=== PATIENT | male | born 1955 | race Caucasian/White ===

== ENCOUNTER 2017-07-24 16:37 | Inpatient (IN) | payer OTHER ==
[~2017-07-24] VITALS: Ht 175.3 cm; Wt 105.3 kg
[~2017-07-24 16:37] MED LIST: ACET-1311 PO; ALBUAER19 INH; ALEN70TA2 PO; AMOX500C3 PO; ASPI81TA28 PO; CHOL1000 PO; CYCL10TA7 PO; CYM30 PO; DULO60CA44 PO; FLV400 PO; GLC500 PO; IPRASOL4 INH; ISOS-11 PO; METH500T37 PO; METO25TA3 PO; PLV75 PO; RXC5 PO; THIA250T7 PO; TRAM-10 PO
[2017-07-24] MEDS ORDERED: SODIUM CHLORIDE 0.9% 500ML 500 ML IV STA (16:47)
--- NOTE | 2017-07-24 16:58 | EMERGENCY ROOM VISIT NOTE ---
History Report prepared by Mayuri: Evaristo Wilson Under the Supervision of: Dr. Alfredito Hernandez M.D. First contact with patient: 16:38 Stated Complaint: CARDIAC History of Present Illness The patient is a 61 year old male who presents to the Emergency Room with complaints of intermittent dizziness beginning 2-3 days ago. He currently rates his discomfort a 4/10 in severity. EMS states the patient has not been feeling well and has been dizzy. They report he woke this morning with diarrhea and dizziness. EMS notes when they arrived his chest pain was a 5, dropped to a 3, and is currently a 4. They report they were called because the patient became short of breath and pale. The patient states he vomited once this morning as well. He reports he is not dizzy anymore, but he is experiencing chest pain and shortness of breath. The patient notes he had a stent placed two weeks ago and was told his aorta was nicked in the process. He states he was told to monitor his blood pressure and report to the ED if it was over 130 systolic. The patient reports his blood pressure has been around 120 systolic for the past two weeks, expect today. He states it rogerio to 130 and eventually 140 systolic. The patient reports his symptoms began when his blood pressure rogerio. He notes his stent was placed because of a blockage found on a stress test. The patient notes he did start a new medication, but he cannot remember what it was. He states he has a history of smoking, but quit, and sleep apnea. The patient denies fevers, chills, cough, congestion, nausea, abdominal pain, and a history of COPD or asthma. Source of History: patient, EMS Onset: 2-3 days ago Position: other (global) Symptom Intensity: 4/10 Quality: other (dizzy) Timing: intermittent Associated Symptoms: + chest pain, + SOB, + vomiting, + diarrhea, No fevers , No chills, No cough, No nausea, No abdominal pain Note: Associated symptoms: pale skin, elevated blood pressure Denies: congestion Review of Systems See HPI for pertinent positives and negatives. A total of ten systems were reviewed and were otherwise negative. Past Medical & Surgical Medical Problems: (1) ASCVD (arteriosclerotic cardiovascular disease) (2) Chronic pain (3) Classic migraine (4) Colloid cyst of third ventricle (5) COPD (chronic obstructive pulmonary disease) (6) Depression (7) Diabetes mellitus type 2 in obese (8) Dyslipidemia (9) GERD (gastroesophageal reflux disease) (10) H/O carotid stenosis (11) H/O: CVA (cerebrovascular accident) (12) Hypertension (13) Impotence of organic origin (14) Obesity (BMI 30-39.9) (15) Osteoarthritis (16) RCA occlusion (17) Statin intolerance (18) Stroke Surgical Problems: (1) H/O bilateral hip replacements (2) H/O repair of rotator cuff (3) Hx of tonsillectomy (4) Previous back surgery Family History Diabetes mellitus FH: hearing loss Hypertension Social History Smoking Status: Former Smoker Alcohol Use: occasionally Drug Use: none Marital Status: Occupation Status: retired Current/Historical Medications Scheduled Acetaminophen (Tylenol), 650 MG PO PRN Alendronate Sodium (Fosamax), 70 MG PO every thursday Amlodipine (Norvasc), 5 MG PO QAM Amoxicillin (Amoxil), 500 MG PO UD Aspirin (Aspirin Chewable), 81 MG PO QAM Cholecalciferol (Vitamin D3), 1,000 INTER.UNIT PO QAM Clopidogrel Bisulfate (Clopidogrel), 75 MG PO QAM Duloxetine Hcl (Cymbalta), 60 MG PO QAM Isosorbide Dinitrate (Isordil), 60 MG PO QAM Lisinopril (Zestril), 20 MG PO HS Metformin HCl (Metformin HCl), 1,000 MG PO BID Metoprolol Tartrate (Lopressor) (Lopressor), 150 MG PO BID Nitroglycerin (Nitrostat), 0.4 MG UT PRN Repaglinide (Prandin), 1 MG PO AC Tamsulosin Hcl (Flomax), 0.4 MG PO QAM Thiamine Hcl (Vitamin B-1), 100 MG PO QAM [Folic Acid], 800 MCG PO QAM Scheduled PRN Albuterol Hfa (Ventolin Hfa), 2 PUFFS INH QID PRN for SOB/Wheezing Cyclobenzaprine HCl (Cyclobenzaprine HCl), 10 MG PO DAILY PRN for Muscle Spasms Ipratropium-Albuterol (Duoneb), 1 TREATMENT INH Q4H PRN for Shortness of Breath Oxycodone HCl (Oxycodone HCl), 5 MG PO Q12 PRN for Pain Tramadol (Ultram), 50-100 MG PO Q6H PRN for Pain Allergies Coded Allergies: Ciprofloxacin (Verified Allergy, Severe, hives, 07/24/17) Simvastatin (Verified Adverse Reaction, Mild, MUSCLE PAIN/WEAKNESS, ) Physical Exam Vital Signs Date Time Temp Pulse Resp B/P (MAP) Pulse Ox O2 Delivery O2 Flow Rate FiO2 07/24/17 20:03 49 18 145/77 95 Room Air 07/24/17 19:09 46 18 95/50 99 Room Air 07/24/17 18:36 48 18 112/63 98 Room Air 07/24/17 18:00 47 20 102/65 98 Room Air 07/24/17 17:45 48 18 105/61 100 Room Air 07/24/17 17:10 49 18 117/62 96 Room Air 07/24/17 16:48 47 07/24/17 16:47 97 Room Air 07/24/17 16:43 36.6 53 18 103/61 98 Room Air 07/24/17 16:43 97 Room Air Physical Exam GENERAL: Awake, alert to self but mild confusion, fatigued-appearing, in no distress HENT: Normocephalic, atraumatic. Dry mucous membranes otherwise unremarkable. EYES: Normal conjunctiva. Sclera non-icteric. NECK: Supple. No nuchal rigidity. FROM. No JVD. RESPIRATORY: Clear to auscultation. CARDIAC: Sinus mei. Extremities warm and well perfused. Pulses equal. ABDOMEN: Soft, non-distended. No tenderness to palpation. No rebound or guarding. No masses. RECTAL: Deferred. MUSCULOSKELETAL: Chest examination reveals no tenderness. The back is symmetrical on inspection without obvious abnormality. There is no CVA tenderness to palpation. No joint edema. LOWER EXTREMITIES: Calves are equal size bilaterally and non-tender. No edema. No discoloration. NEURO: Normal sensorium. No sensory or motor deficits noted. Mild aphasia with difficulty with word finding that has been patient's baseline for past 2 weeks. SKIN: No rash or jaundice noted. Cool and moist. Medical Decision & Procedures ER Provider Diagnostic Interpretation: Radiology results as stated below per my review and radiologist interpretation: SINGLE VIEW CHEST CLINICAL HISTORY: Atypical chest pain. FINDINGS: An AP, portable, upright chest radiograph is compared to study dated 08/19/2016 and correlated with chest CT dated 06/14/2015. The examination is degraded by portable technique and patient rotation. The heart is enlarged. The pulmonary vasculature is noncongested. The lungs and pleural spaces are clear. No pneumothorax is seen. The skeletal structures are osteopenic. The bony thorax is grossly intact. IMPRESSION: Mild cardiac enlargement with no acute cardiopulmonary abnormality. Electronically signed by: Hernandez Sanches M.D. 07/24/2017 5:43 PM Dictated Date/Time: 07/24/2017 5:38 PM CHEST, ABDOMEN, AND PELVIS CTA for AORTIC DISSECTION CT DOSE: 2494.13 mGy.cm HISTORY: Atypical chest pain and generalized abdominal pain TECHNIQUE: Multiaxial CT images of the chest were performed both before and after the intravenous administration of contrast to evaluate the aorta. Maximal intensity projection images were also obtained. A dose lowering technique was utilized adhering to the principles of ALARA. COMPARISON STUDY: Chest abdomen pelvis CTA 10/09/2015. FINDINGS: Noncontrast imaging through the chest shows no evidence for an intramural hematoma within the thoracic aorta. Mild atherosclerotic plaque within the aorta and coronary arteries. The aorta is normal in course and caliber with no evidence for dissection. Mild narrowing origins of the celiac and superior mesenteric arteries. The heart is normal in size. The pulmonary arteries appear patent. No pneumothorax. No pleural effusions. No focal lung consolidations to suggest pneumonia. Stable 3 mm subpleural nodule within the right middle lobe on image 157. This is likely benign. The lungs are otherwise clear. Old, healed right-sided rib fractures. No mediastinal or hilar lymphadenopathy. Bilateral total hip arthroplasties. L2 vertebroplasty. Hepatic steatosis. The liver, left adrenal gland, pancreas, and kidneys are unremarkable. No hydronephrosis. No retroperitoneal lymphadenopathy. Normal gallbladder. Mild bladder wall thickening. This contains a punctate focus of gas. Multiple colonic diverticula. No evidence for bowel obstruction. Normal appendix. Tiny fat-containing umbilical hernia. Minimal pericolonic fat stranding surrounding the mid to distal transverse colon. This is consistent with a nonspecific colitis. Moderate stenosis at the origin of the inferior mesenteric artery. However, the remaining portions of the inferior mesenteric artery are widely patent. IMPRESSION: 1. No evidence for an aortic dissection. 2. Minimal pericolonic fat stranding involving the mid to distal transverse colon. This is consistent with a nonspecific colitis and could be due to an infectious, inflammatory, or ischemic process. 3. Mild bladder wall thickening which could be chronic or due to a cystitis. Recommend correlation with urinalysis. 4. Additional findings are described above. Electronically signed by: Jonathan Correa M.D. 07/24/2017 6:05 PM Dictated Date/Time: 07/24/2017 5:[address] CT DOSE: 537.48 mGy.cm HISTORY: confusion h/o CVA TECHNIQUE: Multiaxial CT images of the head were performed without the use of intravenous contrast. Automated exposure control was utilized for this study. A dose lowering technique was utilized adhering to the principles of ALARA. Comparison: Head CT 08/19/2016. Findings: The paranasal sinuses and mastoid air cells are clear. Old left frontal lobe infarct, unchanged. No change in the 7 mm colloid cyst within the roof of the third ventricle. The ventricles are stable in size. There is a new 1.9 cm hypodense area within the anterior aspect of the left thalamus. This is consistent with a subacute infarct. There is no mass, hematoma, midline shift. Impression: 1. A new 1.9 cm subacute infarct within the left thalamus. 2. No change in the 7 mm colloid cyst. The ventricles are stable in size. 3. Old left frontal lobe infarct. Electronically signed by: Jonathan Correa M.D. 07/24/2017 5:43 PM Dictated Date/Time: 07/24/2017 5:33 PM Bedside ultrasound: revealed grossly normal LV and RV in function .No pericardial effusion. 3.1cm aortic root. Laboratory Results 07/24/17 17:00 Red Blood Count 3.95, Mean Corpuscular Volume 93.2, Mean Corpuscular Hemoglobin 29.9, Mean Corpuscular Hemoglobin Concent 32.1, Mean Platelet Volume 9.3, Neutrophils (%) (Auto) 78.3, Lymphocytes (%) (Auto) 13.8, Monocytes (%) (Auto) 5.5, Eosinophils (%) (Auto) 1.3, Basophils (%) (Auto) 0.6, Neutrophils # (Auto) 13.88, Lymphocytes # (Auto) 2.45, Monocytes # (Auto) 0.97, Eosinophils # (Auto) 0.23, Basophils # (Auto) 0.10 07/24/17 17:00 Test 07/24/17 17:00 07/24/17 17:16 07/24/17 17:19 07/24/17 17:22 White Blood Count 17.72 K/uL (4.8-10.8) Red Blood Count 3.95 M/uL (4.7-6.1) Hemoglobin 11.8 g/dL (14.0-18.0) Hematocrit 36.8 % (42-52) Mean Corpuscular Volume 93.2 fL (80-100) Mean Corpuscular Hemoglobin 29.9 pg (25-34) Mean Corpuscular Hemoglobin Concent 32.1 g/dl (32-36) Platelet Count 349 K/uL (130-400) Mean Platelet Volume 9.3 fL (7.4-10.4) Neutrophils (%) (Auto) 78.3 % Lymphocytes (%) (Auto) 13.8 % Monocytes (%) (Auto) 5.5 % Eosinophils (%) (Auto) 1.3 % Basophils (%) (Auto) 0.6 % Neutrophils # (Auto) 13.88 K/uL (1.4-6.5) Lymphocytes # (Auto) 2.45 K/uL (1.2-3.4) Monocytes # (Auto) 0.97 K/uL (0.11-0.59) Eosinophils # (Auto) 0.23 K/uL (0-0.5) Basophils # (Auto) 0.10 K/uL (0-0.2) RDW Standard Deviation 45.3 fL (36.4-46.3) RDW Coefficient of Variation 13.2 % (11.5-14.5) Immature Granulocyte % (Auto) 0.5 % Immature Granulocyte # (Auto) 0.09 K/uL (0.00-0.02) Est Creatinine Clear Calc Drug Dose 77.7 ml/min Estimated GFR () 72.5 Estimated GFR (Non- 62.5 BUN/Creatinine Ratio 15.5 (10-20) Calcium Level 9.7 mg/dl (8.5-10.1) Magnesium Level 2.2 mg/dl (1.8-2.4) Total Bilirubin 0.3 mg/dl (0.2-1) Direct Bilirubin mg/dl (0-0.2) Aspartate Amino Transf (AST/SGOT) 22 U/L (15-37) Alanine Aminotransferase (ALT/SGPT) 30 U/L (12-78) Alkaline Phosphatase 78 U/L (45-117) Pro-B-Type Natriuretic Peptide 219 pg/ml (0-900) Total Protein 8.6 gm/dl (6.4-8.2) Albumin 3.6 gm/dl (3.4-5.0) Lipase 355 U/L (73-393) Chemistry Specimen Hemolysis Prothrombin Time 10.4 SECONDS (9.0-12.0) Prothromb Time International Ratio 1.0 (0.9-1.1) Activated Partial Thromboplast Time 28.0 SECONDS (21.0-31.0) Partial Thromboplastin Ratio 1.1 Bedside Lactic Acid Venous 1.38 mmol/L (0.90-1.70) Bedside Hemoglobin 11.2 g/dl (14.0-18.0) Bedside Hematocrit 33 % (42-52) Bedside Sodium 134 mEq/L (135-144) Bedside Potassium 5.2 mEq/L (3.3-5.0) Bedside Chloride 101 mEq/L (101-112) Bedside Total CO2 27 mEq/l (24-31) Anion Gap 13.0 mmol/L (16-25) Bedside Blood Urea Nitrogen 19 mg/dl (7-18) Bedside Creatinine 1.1 mg/dl (0.6-1.3) Bedside Glucose (other) 196 mg/dl (70-99) Bedside Ionized Calcium (Mony) 1.24 mmol/l (1.12-1.32) Laboratory results reviewed by me Medications Administered Medications (Trade) Dose Ordered Sig/Andi Route Start Time Stop Time Status Last Admin Dose Admin Sodium Chloride 500 ml @ 125 mls/hr Q4H STAT IV 07/24/17 16:47 07/24/17 20:46 DC 07/24/17 17:03 125 MLS/HR Dextrose (Dextrose 50% 50ML Syringe) 50 ml NOW ONCE IV 07/24/17 17:00 07/24/17 17:01 DC 07/24/17 17:03 50 ML Sodium Chloride 1,000 ml @ 999 mls/hr Q1H1M STAT IV 07/24/17 18:18 07/24/17 19:18 DC 07/24/17 18:35 999 MLS/HR Ciprofloxacin/ Dextrose (Cipro / D5W) 400 mg NOW STAT IV 07/24/17 18:33 07/24/17 18:41 DC 07/24/17 19:18 400 MG Metronidazole (Flagyl / Nss) 500 mg NOW STAT IV 07/24/17 18:33 07/24/17 18:41 DC 07/24/17 19:26 500 MG Methylprednisolone Sodium Succinate (Solu-Medrol IV) 125 mg NOW STAT IV 07/24/17 19:46 07/24/17 19:47 DC 07/24/17 19:58 125 MG Ranitidine HCl (zANTac IV) 50 mg NOW STAT IV 07/24/17 19:46 07/24/17 19:47 DC 07/24/17 19:58 50 MG Diphenhydramine HCl (Benadryl Inj) 50 mg NOW STAT IV 07/24/17 19:46 07/24/17 19:47 DC 07/24/17 19:58 50 MG ECG Indication: chest pain Rate (beats per minute): 48 Rhythm: sinus bradycardia Findings: no acute ischemic change, other (Normal axis) ED Course 1642: The patient was evaluated in room A01. A complete history and physical exam was performed. 1834: I discussed the patient's case with SUNNY Colón. The patient will be evaluated for further management and care. 1844: Upon reexamination, the patient was resting comfortably. I discussed the test results and treatment plan with him. The patient will be evaluated for further management. Medical Decision I reviewed the patient's past medical history, medications, and the nursing notes as described above. Differential diagnoses include: dissection, ACS, PE, dehydration, electrolyte abnormality, pneumonia, bronchitis, sepsis. Patient is a 61-year-old gentleman with a past medical history of CAD status post stent placement 2 weeks ago with there was question of aortic involvement presents to emergency department with generalized fatigue, chest pain, shortness of breath, lightheadedness evolving since this morning. History of present illness. It was reported blood pressures elevated in the 140s at home. On arrival the patient is fatigued, uncomfortable but in no acute distress. He does have mild confusion. EKG with sinus bradycardia to 50s with no signs of acute ischemia. Blood pressure systolic in the 100s. Bedside echo shows EF with greater than 50% variability suggesting mild dehydration. Aortic root within normal limits at 3.1cm. CTA of the chest and abdomen negative for dissection however does demonstrate a colitis. On further questioning the patient does report onset of diarrhea today. Otherwise the patient was found to have a subacute thalamic stroke and when further discussing with the patient and family he has had a worsening of his baseline aphasia since his heart cath. Lactate within normal limits over WBC elevated to 17, is will treat with Cipro and Flagyl at this time. Case was discussed with Esteban Colón PAc who will admit the patient for further management. Of note, patient appears to have had allergic reaction to Cipro as he developed hives to his right AC where Cipro was running. Left AC where Flagyl was running was unaffected. Thus, Cipro must likely culprit. Cipro discontinued and patient treated with steroids, zantac, benadryl. Will defer additional colitis coverage to admitting team. Medication Reconcilliation Current Medication List: was personally reviewed by me Blood Pressure Screening Patient's blood pressure: Normal blood pressure Blood pressure disposition: Did not require urgent referral Consults Time Called: 1830 Consulting Physician: SUNNY Colón Returned Call: 1833 I discussed the patient's case with SUNNY Colón. The patient will be evaluated for further management and care. Impression Primary Impression: Colitis Additional Impression: Thalamic infarction Scribe Attestation The scribe's documentation has been prepared under my direction and personally reviewed by me in its entirety. I confirm that the note above accurately reflects all work, treatment, procedures, and medical decision making performed by me. Departure Information Dispostion Being Evaluated By Hospitalist Terry Hunt M.D. (PCP) Problem Qualifiers
[2017-07-24] MEDS ORDERED: DEXTROSE 50% 50 ML SYR IV ONE (17:00)
[2017-07-24 17:33] LABS: BASO % 0.6 %; COMPLETE YES; EOS % 1.3 %; HEMATOCRIT 36.8 % (42-52); IG% 0.5 %; LYMPH % 13.8 %; LYMPH ABS # 2.45 K/uL (1.2-3.4); MEAN CELL VOLUME 93.2 fL (80-100); MEAN CORPUSCULAR HEMOGLOBIN 29.9 pg (25-34); MEAN CORPUSCULAR HGB CONC 32.1 g/dl (32-36); MEAN PLATELET VOLUME 9.3 fL (7.4-10.4); MONO % 5.5 %; NEUT % 78.3 %; PLATELET COUNT 349 K/uL (130-400); RED BLOOD COUNT 3.95 M/uL (4.7-6.1); WHITE BLOOD COUNT 17.72 K/uL (4.8-10.8)
[2017-07-24 17:36] LABS: ISTAT CREATININE 1.1 mg/dl (0.6-1.3); ISTAT HEMOGLOBIN 11.2 g/dl (14.0-18.0); ISTAT IONIZED CALCIUM 1.24 mmol/l (1.12-1.32)
[2017-07-24 17:40] LABS: PARTIAL THROMBOPLASTIN RATIO 1.1; PROTHROMBIN TIME (PATIENT) 10.4 SECONDS (9.0-12.0)
--- NOTE | 2017-07-24 17:44 | DIAGNOSTIC IMAGING REPORT ---
SINGLE VIEW CHEST CLINICAL HISTORY: Atypical chest pain. FINDINGS: An AP, portable, upright chest radiograph is compared to study dated 08/19/2016 and correlated with chest CT dated 06/14/2015. The examination is degraded by portable technique and patient rotation. The heart is enlarged. The pulmonary vasculature is noncongested. The lungs and pleural spaces are clear. No pneumothorax is seen. The skeletal structures are osteopenic. The bony thorax is grossly intact. IMPRESSION: Mild cardiac enlargement with no acute cardiopulmonary abnormality. Electronically signed by: Hernandez Sanches M.D. 07/24/2017 5:43 PM Dictated Date/Time: 07/24/2017 5:38 PM
--- NOTE | 2017-07-24 17:44 | DIAGNOSTIC IMAGING REPORT ---
HEAD CT NONCONTRAST CT DOSE: 537.48 mGy.cm HISTORY: confusion h/o CVA TECHNIQUE: Multiaxial CT images of the head were performed without the use of intravenous contrast. Automated exposure control was utilized for this study. A dose lowering technique was utilized adhering to the principles of ALARA. Comparison: Head CT 08/19/2016. Findings: The paranasal sinuses and mastoid air cells are clear. Old left frontal lobe infarct, unchanged. No change in the 7 mm colloid cyst within the roof of the third ventricle. The ventricles are stable in size. There is a new 1.9 cm hypodense area within the anterior aspect of the left thalamus. This is consistent with a subacute infarct. There is no mass, hematoma, midline shift. Impression: 1. A new 1.9 cm subacute infarct within the left thalamus. 2. No change in the 7 mm colloid cyst. The ventricles are stable in size. 3. Old left frontal lobe infarct. Electronically signed by: Jonathan Correa M.D. 07/24/2017 5:43 PM Dictated Date/Time: 07/24/2017 5:33 PM
--- NOTE | 2017-07-24 18:07 | DIAGNOSTIC IMAGING REPORT ---
CHEST, ABDOMEN, AND PELVIS CTA for AORTIC DISSECTION CT DOSE: 2494.13 mGy.cm HISTORY: Atypical chest pain and generalized abdominal pain TECHNIQUE: Multiaxial CT images of the chest were performed both before and after the intravenous administration of contrast to evaluate the aorta. Maximal intensity projection images were also obtained. A dose lowering technique was utilized adhering to the principles of ALARA. COMPARISON STUDY: Chest abdomen pelvis CTA 10/09/2015. FINDINGS: Noncontrast imaging through the chest shows no evidence for an intramural hematoma within the thoracic aorta. Mild atherosclerotic plaque within the aorta and coronary arteries. The aorta is normal in course and caliber with no evidence for dissection. Mild narrowing origins of the celiac and superior mesenteric arteries. The heart is normal in size. The pulmonary arteries appear patent. No pneumothorax. No pleural effusions. No focal lung consolidations to suggest pneumonia. Stable 3 mm subpleural nodule within the right middle lobe on image 157. This is likely benign. The lungs are otherwise clear. Old, healed right-sided rib fractures. No mediastinal or hilar lymphadenopathy. Bilateral total hip arthroplasties. L2 vertebroplasty. Hepatic steatosis. The liver, left adrenal gland, pancreas, and kidneys are unremarkable. No hydronephrosis. No retroperitoneal lymphadenopathy. Normal gallbladder. Mild bladder wall thickening. This contains a punctate focus of gas. Multiple colonic diverticula. No evidence for bowel obstruction. Normal appendix. Tiny fat-containing umbilical hernia. Minimal pericolonic fat stranding surrounding the mid to distal transverse colon. This is consistent with a nonspecific colitis. Moderate stenosis at the origin of the inferior mesenteric artery. However, the remaining portions of the inferior mesenteric artery are widely patent. IMPRESSION: 1. No evidence for an aortic dissection. 2. Minimal pericolonic fat stranding involving the mid to distal transverse colon. This is consistent with a nonspecific colitis and could be due to an infectious, inflammatory, or ischemic process. 3. Mild bladder wall thickening which could be chronic or due to a cystitis. Recommend correlation with urinalysis. 4. Additional findings are described above. Electronically signed by: Jonathan Correa M.D. 07/24/2017 6:05 PM Dictated Date/Time: 07/24/2017 5:47 PM
[2017-07-24] MEDS ORDERED: THIA100T11 PO (18:09)
[2017-07-24] MEDS ORDERED: FOLIC ACID PO (18:09)
[2017-07-24] MEDS ORDERED: NTRGSL/4 UT (18:09)
[2017-07-24] MEDS ORDERED: REPA1TAB40 PO (18:09)
[2017-07-24] MEDS ORDERED: METO100T14 PO (18:09)
[2017-07-24] MEDS ORDERED: ASPCH81X PO (18:09)
[2017-07-24] MEDS ORDERED: LISI-725 PO (18:09)
[2017-07-24] MEDS ORDERED: VNTHFA/IN INH (18:09)
[2017-07-24] MEDS ORDERED: TAMS0.4C38 PO (18:09)
[2017-07-24] MEDS ORDERED: ISR/30 PO (18:09)
[2017-07-24] MEDS ORDERED: AMLO-110 PO (18:10)
[2017-07-24] MEDS ORDERED: SODIUM CHLORIDE 0.9% 1000ML 1,000 ML IV STA (18:18)
[2017-07-24 18:23] LABS: ALKALINE PHOSPHATASE 78 U/L (45-117); ALT/SGPT 30 U/L (12-78); BLOOD UREA NITROGEN 19 mg/dl (7-18); BUN/CREATININE RATIO 15.5 (10-20); CALCIUM 9.7 mg/dl (8.5-10.1); CARBON DIOXIDE 21 mmol/L (21-32); CHLORIDE 101 mmol/L (98-107); CREATININE 1.23 mg/dl (0.60-1.40); GLUCOSE 59 mg/dl (70-99)
[2017-07-24 18:28] LABS: POTASSIUM 5.1 mmol/L (3.5-5.1); SODIUM 137 mmol/L (136-145)
[2017-07-24] MEDS ORDERED: METRONIDAZOLE 500MG / 100ML NSS IV STA (18:33)
[2017-07-24] MEDS ORDERED: CIPROFLOXACIN 400MG / 200ML D5W IV STA (18:33)
[2017-07-24 18:50] LABS: AST/SGOT 22 U/L (15-37); MAGNESIUM 2.2 mg/dl (1.8-2.4)
[2017-07-24] MEDS ORDERED: RANITIDINE HCL 50 MG/100 ML D5W IV STA (19:46)
[2017-07-24] MEDS ORDERED: DiphenhydrAMINE HCL 50 MG/ML VIAL IV STA (19:46)
[2017-07-24] MEDS ORDERED: METHYLPREDNISOLONE 125 MG VIAL IV STA (19:46)
[2017-07-24] MEDS ORDERED: ONDANSETRON INJ 2 MG/ML 2 ML VIAL IV PRN (20:00)
[2017-07-24] MEDS ORDERED: POLYETHYLENE (MIRALAX) 17 GM PACK PO PRN (20:00)
[2017-07-24] MEDS ORDERED: MoRPHine SULFATE 2 MG/ML CARP IV PRN (20:00)
[2017-07-24] MEDS ORDERED: NITROGLYCERIN 0.4 MG SL PER TAB CHARGE SL PRN (20:00)
[2017-07-24] MEDS ORDERED: ACETAMINOPHEN 325 MG TAB PO PRN (20:00)
[2017-07-24] MEDS ORDERED: PHARMACIST DISCHARGE MED REC CONSULT PRN (20:15)
[2017-07-24] MEDS ORDERED: GLUCOSE 40% GEL 15 GM TUBE PO PRN (20:15)
[2017-07-24] MEDS ORDERED: GLUCAGON FOR INJ 1 MG VIAL SQ PRN (20:15)
[2017-07-24] MEDS ORDERED: DEXTROSE 50% 50 ML SYR IV PRN (20:15)
[2017-07-24] MEDS ORDERED: GLUCOSE 10 TABS/TUBE PO PRN (20:15)
[2017-07-24] MEDS ORDERED: PHARMACY GLYCEMIC MGMT CONSULT PRN (20:58)
[2017-07-24] MEDS ORDERED: PIPERACILL/TAZOBAC IV 4.5 GM in DEXTROSE 5% 100ML 100 ML IV SCH (21:00)
[2017-07-24] MEDS ORDERED: CYCLOBENZAPRINE HCL 10 MG TAB PO PRN (21:00)
[2017-07-24] MEDS ORDERED: OXYCODONE HCL IR 5 MG TAB (IMMEDIATE RELEASE) PO PRN (21:00)
[2017-07-24] MEDS ORDERED: INSULIN GLARGINE SOLOSTAR 100 UNITS/ML 3 ML PEN SC SCH (21:00)
[2017-07-24] MEDS ORDERED: INSULIN ASPART 100 UNITS/ML 3 ML PEN SC SCH (21:00)
[2017-07-24] MEDS ORDERED: ALBUTEROL HFA 8 GM INHALER INH PRN (21:00)
[2017-07-24] MEDS ORDERED: TRAMADOL HCL 50 MG TAB PO PRN (21:00)
[2017-07-24 21:02] LABS: MANUAL MICROSCOPIC REQUIRED? NO; REVIEW REQ? NO; URINE APPEARANCE CLEAR (CLEAR); URINE BILIRUBIN NEG (NEG); URINE COLOR YELLOW; URINE NITRITE NEG (NEG); URINE PH 6.5 (4.5-7.5); URINE SPECIFIC GRAVITY 1.023 (1.000-1.030); UROBILINOGEN NEG (NEG); ZZUR CULT IF INDIC CLEAN CATCH YES
[2017-07-24] MEDS ORDERED: NovoLIN-N (NPH) PER UNIT CHARGE SQ ONE (21:15)
[2017-07-24 21:30] VITALS: BP 144/75; PULSE 50; TEMP 36.7; O2SAT 98; Ht 175.3 cm; Wt 105.3 kg
[2017-07-24] MEDS: INSULIN ASPART 100 UNITS/ML 3 ML PEN SC SCH (21:46)
[2017-07-24] MEDS: METOPROLOL TARTRATE 100 MG TAB PO SCH (21:55)
--- NOTE | 2017-07-24 21:56 | History and Physical ---
History & Physical Date & Time of Service: Jul 24, 2017 at 20:51 Chief Complaint: Cardiac Primary Care Physician: Terry Resendez M.D. History of Present Illness Source: patient, clinic records, hospital records The patient underwent a cardiac cath on 05/25/17 revealed 100% blockage in RCA with collateral from the LAD. 50% blockage was also noted in LAD. No intervention was performed at that time. He then underwent a cardiac MRI later that same day to assess viability which revealed normal biventricular size and systolic function but showed focal myocardial infarction in the inferolateral segments that involved part of the posteromedial papillary muscle. He was then scheduled for repeat cardiac catheterization on 07/10/[address] Alford for planned PCI of the RCA. During his cardiac catheterization on 07/10, the attempt at PCI was unsuccessful complicated by a perforation of the proximal RCA and concern for dissection of the aorta. He underwent a CTA of the chest which showed dissection of the right coronary cusp extending into the proximal right coronary artery, however, no dissection extended above the sinotubular junction. He was admitted to the cardiology service for further management and supervision and was placed on a nitro drip with the addition of PO hydralazine, metoprolol and amlodipine for 48 hours. He was discharged on PO BP meds with instructions to not let his BP rise above 140 systolic. He reports being discharged and not being able to walk out of the hospital. He reports feeling very ill for the past two weeks having significant fatigue. He reports some diarrhea began this morning all of a sudden and after his first episode of stool he began having substernal chest pain that he describes as a numbness. This was associated with diaphoresis and some shortness of breath. He reports having 3 more episodes of diarrhea after that with no blood in the stool. He denies nausea or vomiting. He reports his chest pain being intermittent with no clear provoking or palliative factors. He still has it now. He also reports a h/o a L MCA stroke with residual RUE and RLE weakness with foot drop, and expressive aphasia. This occurs during periods of severe fatigue even prior to the cath but has seemed to be worse since that time. He is speaking well to me during this interview and is A&O x 3 with no focal neuro deficits on exam , however, and daughter at bedside are saying that his aphasia issue is present. He denies any issues with swallowing, denies headaches or visual changes. ROS is otherwise negative. He denies any recent antibiotic use. Recent medications include the increase of metoprolol from 100mg BID to 150mg BID per Cardiology in [place] for tighter BP control and the addition of PRandin by his PCP. Past Medical/Surgical History Medical Problems: (1) ASCVD (arteriosclerotic cardiovascular disease) Status: Chronic (2) Chronic pain Status: Chronic (3) Classic migraine Status: Chronic (4) Colloid cyst of third ventricle Status: Chronic (5) COPD (chronic obstructive pulmonary disease) Status: Chronic (6) Diabetes mellitus type 2 in obese Status: Chronic (7) Dyslipidemia Status: Chronic (8) GERD (gastroesophageal reflux disease) Status: Chronic (9) H/O carotid stenosis Permanent Comment: s/p EDITH stent placement 08/23/2013; Dr. Chen Status: Resolved (10) H/O: CVA (cerebrovascular accident) Permanent Comment: 2005; residual R sided weakness Status: Chronic (11) Hypertension Status: Chronic (12) Impotence of organic origin Status: Chronic (13) Obesity (BMI 30-39.9) Status: Chronic (14) Osteoarthritis Status: Chronic (15) RCA occlusion Status: Chronic (16) Statin intolerance Status: Chronic Surgical Problems: (1) H/O bilateral hip replacements Permanent Comment: [address] Benavidez Status: Resolved (2) H/O repair of rotator cuff Permanent Comment: R side; 09/2006 Status: Resolved (3) Hx of tonsillectomy Status: Resolved (4) Previous back surgery Status: Chronic Family History Diabetes mellitus FH: hearing loss Hypertension Social History Smoking Status: Former Smoker (30 pack years) Drug Use: none Marital Status: Housing status: lives with family Occupational Status: retired Immunizations History of Influenza Vaccine: Yes Influenza Vaccine Date: Jun 19, 2017 History of Tetanus Vaccine?: Yes Tetanus Immunization Date: January 18, 2016 History of Pneumococcal: Yes Pneumococcal Date: Aug 05, 2013 History of Hepatitis B Vaccine: No Multi-Drug Resistant Organisms History of MDRO: No Allergies Coded Allergies: Ciprofloxacin (Verified Allergy, Severe, hives, 07/24/17) Simvastatin (Verified Adverse Reaction, Mild, MUSCLE PAIN/WEAKNESS, ) Home Medications Scheduled Acetaminophen (Tylenol), 650 MG PO PRN Alendronate Sodium (Fosamax), 70 MG PO every thursday Amlodipine (Norvasc), 5 MG PO QAM Amoxicillin (Amoxil), 500 MG PO UD Aspirin (Aspirin Chewable), 81 MG PO QAM Cholecalciferol (Vitamin D3), 1,000 INTER.UNIT PO QAM Clopidogrel Bisulfate (Clopidogrel), 75 MG PO QAM Duloxetine Hcl (Cymbalta), 60 MG PO QAM Isosorbide Dinitrate (Isordil), 60 MG PO QAM Lisinopril (Zestril), 20 MG PO HS Metformin HCl (Metformin HCl), 1,000 MG PO BID Metoprolol Tartrate (Lopressor) (Lopressor), 150 MG PO BID Nitroglycerin (Nitrostat), 0.4 MG UT PRN Repaglinide (Prandin), 1 MG PO AC Tamsulosin Hcl (Flomax), 0.4 MG PO QAM Thiamine Hcl (Vitamin B-1), 100 MG PO QAM [Folic Acid], 800 MCG PO QAM Scheduled PRN Albuterol Hfa (Ventolin Hfa), 2 PUFFS INH QID PRN for SOB/Wheezing Cyclobenzaprine HCl (Cyclobenzaprine HCl), 10 MG PO DAILY PRN for Muscle Spasms Ipratropium-Albuterol (Duoneb), 1 TREATMENT INH Q4H PRN for Shortness of Breath Oxycodone HCl (Oxycodone HCl), 5 MG PO Q12 PRN for Pain Tramadol (Ultram), 50-100 MG PO Q6H PRN for Pain Review of Systems At least ten systems were reviewed and negative except as indicated in HPI. Physical Exam Vital Signs Date Time Temp Pulse Resp B/P (MAP) Pulse Ox O2 Delivery O2 Flow Rate FiO2 07/24/17 20:37 60 20 127/82 95 Room Air 07/24/17 20:03 49 18 145/77 95 Room Air 07/24/17 19:09 46 18 95/50 99 Room Air 07/24/17 18:36 48 18 112/63 98 Room Air 07/24/17 18:00 47 20 102/65 98 Room Air 07/24/17 17:45 48 18 105/61 100 Room Air 07/24/17 17:10 49 18 117/62 96 Room Air 07/24/17 16:48 47 07/24/17 16:47 97 Room Air 07/24/17 16:43 36.6 53 18 103/61 98 Room Air 07/24/17 16:43 97 Room Air General Appearance: WD/WN, no apparent distress Head: normocephalic, atraumatic Eyes: normal inspection, PERRL, EOMI, sclerae normal ENT: normal ENT inspection, pharynx normal Neck: supple, no JVD, trachea midline Respiratory/Chest: chest non-tender, lungs clear, normal breath sounds, no respiratory distress, no accessory muscle use Cardiovascular: regular rate, rhythm, no edema, no gallop, no murmur, normal peripheral pulses Abdomen/GI: normal bowel sounds, non tender, soft Back: normal inspection Extremities/Musculoskelatal: normal inspection, no calf tenderness, no pedal edema, normal range of motion, + pertinent finding (strength intact throughout) 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, no motor/sensory deficits, alert, normal mood/affect, normal reflexes, oriented x 3 Skin: normal color, warm/dry, no rash Diagnostics Laboratory Results 07/24/17 17:00 Red Blood Count 3.95, Mean Corpuscular Volume 93.2, Mean Corpuscular Hemoglobin 29.9, Mean Corpuscular Hemoglobin Concent 32.1, Mean Platelet Volume 9.3, Neutrophils (%) (Auto) 78.3, Lymphocytes (%) (Auto) 13.8, Monocytes (%) (Auto) 5.5, Eosinophils (%) (Auto) 1.3, Basophils (%) (Auto) 0.6, Neutrophils # (Auto) 13.88, Lymphocytes # (Auto) 2.45, Monocytes # (Auto) 0.97, Eosinophils # (Auto) 0.23, Basophils # (Auto) 0.10 07/24/17 17:00 Test 07/24/17 17:00 07/24/17 17:16 07/24/17 17:19 07/24/17 17:22 White Blood Count 17.72 K/uL (4.8-10.8) Red Blood Count 3.95 M/uL (4.7-6.1) Hemoglobin 11.8 g/dL (14.0-18.0) Hematocrit 36.8 % (42-52) Mean Corpuscular Volume 93.2 fL (80-100) Mean Corpuscular Hemoglobin 29.9 pg (25-34) Mean Corpuscular Hemoglobin Concent 32.1 g/dl (32-36) Platelet Count 349 K/uL (130-400) Mean Platelet Volume 9.3 fL (7.4-10.4) Neutrophils (%) (Auto) 78.3 % Lymphocytes (%) (Auto) 13.8 % Monocytes (%) (Auto) 5.5 % Eosinophils (%) (Auto) 1.3 % Basophils (%) (Auto) 0.6 % Neutrophils # (Auto) 13.88 K/uL (1.4-6.5) Lymphocytes # (Auto) 2.45 K/uL (1.2-3.4) Monocytes # (Auto) 0.97 K/uL (0.11-0.59) Eosinophils # (Auto) 0.23 K/uL (0-0.5) Basophils # (Auto) 0.10 K/uL (0-0.2) RDW Standard Deviation 45.3 fL (36.4-46.3) RDW Coefficient of Variation 13.2 % (11.5-14.5) Immature Granulocyte % (Auto) 0.5 % Immature Granulocyte # (Auto) 0.09 K/uL (0.00-0.02) Est Creatinine Clear Calc Drug Dose 77.7 ml/min Estimated GFR () 72.5 Estimated GFR (Non- 62.5 BUN/Creatinine Ratio 15.5 (10-20) Calcium Level 9.7 mg/dl (8.5-10.1) Magnesium Level 2.2 mg/dl (1.8-2.4) Total Bilirubin 0.3 mg/dl (0.2-1) Direct Bilirubin mg/dl (0-0.2) Aspartate Amino Transf (AST/SGOT) 22 U/L (15-37) Alanine Aminotransferase (ALT/SGPT) 30 U/L (12-78) Alkaline Phosphatase 78 U/L (45-117) Pro-B-Type Natriuretic Peptide 219 pg/ml (0-900) Total Protein 8.6 gm/dl (6.4-8.2) Albumin 3.6 gm/dl (3.4-5.0) Lipase 355 U/L (73-393) Chemistry Specimen Hemolysis Prothrombin Time 10.4 SECONDS (9.0-12.0) Prothromb Time International Ratio 1.0 (0.9-1.1) Activated Partial Thromboplast Time 28.0 SECONDS (21.0-31.0) Partial Thromboplastin Ratio 1.1 Bedside Lactic Acid Venous 1.38 mmol/L (0.90-1.70) Bedside Hemoglobin 11.2 g/dl (14.0-18.0) Bedside Hematocrit 33 % (42-52) Bedside Sodium 134 mEq/L (135-144) Bedside Potassium 5.2 mEq/L (3.3-5.0) Bedside Chloride 101 mEq/L (101-112) Bedside Total CO2 27 mEq/l (24-31) Anion Gap 13.0 mmol/L (16-25) Bedside Blood Urea Nitrogen 19 mg/dl (7-18) Bedside Creatinine 1.1 mg/dl (0.6-1.3) Bedside Glucose (other) 196 mg/dl (70-99) Bedside Ionized Calcium (Mony) 1.24 mmol/l (1.12-1.32) Test 07/24/17 20:50 07/24/17 21:22 07/24/17 23:00 Urine Color YELLOW Urine Appearance CLEAR (CLEAR) Urine pH 6.5 (4.5-7.5) Urine Specific [place] 1.023 (1.000-1.030) Urine Protein NEG (NEG) Urine Glucose (UA) NEG (NEG) Urine Ketones NEG (NEG) Urine Occult Blood TRACE (NEG) Urine Nitrite NEG (NEG) Urine Bilirubin NEG (NEG) Urine Urobilinogen NEG (NEG) Urine Leukocyte Esterase SMALL (NEG) Urine WBC (Auto) 10-30 /hpf (0-5) Urine RBC (Auto) 0-4 /hpf (0-4) Urine Hyaline Casts (Auto) 0 /lpf (0-5) Urine Epithelial Cells (Auto) 10-20 /lpf (0-5) Urine Bacteria (Auto) 1+ (NEG) Bedside Glucose 88 mg/dl (70-99) Creatine Kinase MB Ratio (0-3.0) Date/Time Source Procedure Growth Status 07/24/17 17:14 Blood Blood Culture Pending Received 07/24/17 20:50 Urine , Clean Catch Urine Culture Pending Received Results Past 24 Hours Test 07/24/17 16:51 07/24/17 17:00 07/24/17 17:16 07/24/17 17:19 Range/Units White Blood Count 17.72 4.8-10.8 K/uL Red Blood Count 3.95 4.7-6.1 M/uL Hemoglobin 11.8 14.0-18.0 g/dL Hematocrit 36.8 42-52 % Mean Corpuscular Volume 93.2 80-100 fL Mean Corpuscular Hemoglobin 29.9 25-34 pg Mean Corpuscular Hemoglobin Concent 32.1 32-36 g/dl Platelet Count 349 130-400 K/uL Mean Platelet Volume 9.3 7.4-10.4 fL Neutrophils (%) (Auto) 78.3 % Lymphocytes (%) (Auto) 13.8 % Monocytes (%) (Auto) 5.5 % Eosinophils (%) (Auto) 1.3 % Basophils (%) (Auto) 0.6 % Neutrophils # (Auto) 13.88 1.4-6.5 K/uL Lymphocytes # (Auto) 2.45 1.2-3.4 K/uL Monocytes # (Auto) 0.97 0.11-0.59 K/uL Eosinophils # (Auto) 0.23 0-0.5 K/uL Basophils # (Auto) 0.10 0-0.2 K/uL RDW Standard Deviation 45.3 36.4-46.3 fL RDW Coefficient of Variation 13.2 11.5-14.5 % Immature Granulocyte % (Auto) 0.5 % Immature Granulocyte # (Auto) 0.09 0.00-0.02 K/uL Sodium Level 137 136-145 mmol/L Potassium Level 5.1 3.5-5.1 mmol/L Chloride Level 101 98-107 mmol/L Carbon Dioxide Level 21 21-32 mmol/L Anion Gap 15.0 3-11 mmol/L Blood Urea Nitrogen 19 7-18 mg/dl Creatinine 1.23 0.60-1.40 mg/dl Est Creatinine Clear Calc Drug Dose 77.7 ml/min Estimated GFR () 72.5 Estimated GFR (Non- 62.5 BUN/Creatinine Ratio 15.5 10-20 Random Glucose 59 70-99 mg/dl Calcium Level 9.7 8.5-10.1 mg/dl Magnesium Level 2.2 1.8-2.4 mg/dl Total Bilirubin 0.3 0.2-1 mg/dl Direct Bilirubin 0-0.2 mg/dl Aspartate Amino Transf (AST/SGOT) 22 15-37 U/L Alanine Aminotransferase (ALT/SGPT) 30 12-78 U/L Alkaline Phosphatase 78 45-117 U/L Troponin I < 0.015 0-0.045 ng/ml Pro-B-Type Natriuretic Peptide 219 0-900 pg/ml Total Protein 8.6 6.4-8.2 gm/dl Albumin 3.6 3.4-5.0 gm/dl Lipase 355 73-393 U/L Chemistry Specimen Hemolysis Prothrombin Time 10.4 9.0-12.0 SECONDS Prothromb Time International Ratio 1.0 0.9-1.1 Activated Partial Thromboplast Time 28.0 21.0-31.0 SECONDS Partial Thromboplastin Ratio 1.1 Bedside Lactic Acid Venous 1.38 0.90-1.70 mmol/L Test 07/24/17 17:22 Range/Units Bedside Hemoglobin 11.2 14.0-18.0 g/dl Bedside Hematocrit 33 42-52 % Bedside Sodium 134 135-144 mEq/L Bedside Potassium 5.2 3.3-5.0 mEq/L Bedside Chloride 101 101-112 mEq/L Bedside Total CO2 27 24-31 mEq/l Anion Gap 13.0 16-25 mmol/L Bedside Blood Urea Nitrogen 19 7-18 mg/dl Bedside Creatinine 1.1 0.6-1.3 mg/dl Bedside Glucose (other) 196 70-99 mg/dl Bedside Ionized Calcium ([place]) 1.24 1.12-1.32 mmol/l Microbiology Results 07/24/17 Blood Culture, Received Pending 07/24/17 Blood Culture, Received Pending Diagnostic Radiology HEAD CT NONCONTRAST CT DOSE: 537.48 mGy.cm HISTORY: confusion h/o CVA TECHNIQUE: Multiaxial CT images of the head were performed without the use of intravenous contrast. Automated exposure control was utilized for this study. A dose lowering technique was utilized adhering to the principles of ALARA. Comparison: Head CT 08/19/2016. Findings: The paranasal sinuses and mastoid air cells are clear. Old left frontal lobe infarct, unchanged. No change in the 7 mm colloid cyst within the roof of the third ventricle. The ventricles are stable in size. There is a new 1.9 cm hypodense area within the anterior aspect of the left thalamus. This is consistent with a subacute infarct. There is no mass, hematoma, midline shift. Impression: 1. A new 1.9 cm subacute infarct within the left thalamus. 2. No change in the 7 mm colloid cyst. The ventricles are stable in size. 3. Old left frontal lobe infarct. CHEST, ABDOMEN, AND PELVIS CTA for AORTIC DISSECTION CT DOSE: 2494.13 mGy.cm HISTORY: Atypical chest pain and generalized abdominal pain TECHNIQUE: Multiaxial CT images of the chest were performed both before and after the intravenous administration of contrast to evaluate the aorta. Maximal intensity projection images were also obtained. A dose lowering technique was utilized adhering to the principles of ALARA. COMPARISON STUDY: Chest abdomen pelvis CTA 10/09/2015. FINDINGS: Noncontrast imaging through the chest shows no evidence for an intramural hematoma within the thoracic aorta. Mild atherosclerotic plaque within the aorta and coronary arteries. The aorta is normal in course and caliber with no evidence for dissection. Mild narrowing origins of the celiac and superior mesenteric arteries. The heart is normal in size. The pulmonary arteries appear patent. No pneumothorax. No pleural effusions. No focal lung consolidations to suggest pneumonia. Stable 3 mm subpleural nodule within the right middle lobe on image 157. This is likely benign. The lungs are otherwise clear. Old, healed right-sided rib fractures. No mediastinal or hilar lymphadenopathy. Bilateral total hip arthroplasties. L2 vertebroplasty. Hepatic steatosis. The liver, left adrenal gland, pancreas, and kidneys are unremarkable. No hydronephrosis. No retroperitoneal lymphadenopathy. Normal gallbladder. Mild bladder wall thickening. This contains a punctate focus of gas. Multiple colonic diverticula. No evidence for bowel obstruction. Normal appendix. Tiny fat-containing umbilical hernia. Minimal pericolonic fat stranding surrounding the mid to distal transverse colon. This is consistent with a nonspecific colitis. Moderate stenosis at the origin of the inferior mesenteric artery. However, the remaining portions of the inferior mesenteric artery are widely patent. IMPRESSION: 1. No evidence for an aortic dissection. 2. Minimal pericolonic fat stranding involving the mid to distal transverse colon. This is consistent with a nonspecific colitis and could be due to an infectious, inflammatory, or ischemic process. 3. Mild bladder wall thickening which could be chronic or due to a cystitis. Recommend correlation with urinalysis. 4. Additional findings are described above. CHEST, ABDOMEN, AND PELVIS CTA for AORTIC DISSECTION CT DOSE: 2494.13 mGy.cm HISTORY: Atypical chest pain and generalized abdominal pain TECHNIQUE: Multiaxial CT images of the chest were performed both before and after the intravenous administration of contrast to evaluate the aorta. Maximal intensity projection images were also obtained. A dose lowering technique was utilized adhering to the principles of ALARA. COMPARISON STUDY: Chest abdomen pelvis CTA 10/09/2015. FINDINGS: Noncontrast imaging through the chest shows no evidence for an intramural hematoma within the thoracic aorta. Mild atherosclerotic plaque within the aorta and coronary arteries. The aorta is normal in course and caliber with no evidence for dissection. Mild narrowing origins of the celiac and superior mesenteric arteries. The heart is normal in size. The pulmonary arteries appear patent. No pneumothorax. No pleural effusions. No focal lung consolidations to suggest pneumonia. Stable 3 mm subpleural nodule within the right middle lobe on image 157. This is likely benign. The lungs are otherwise clear. Old, healed right-sided rib fractures. No mediastinal or hilar lymphadenopathy. Bilateral total hip arthroplasties. L2 vertebroplasty. Hepatic steatosis. The liver, left adrenal gland, pancreas, and kidneys are unremarkable. No hydronephrosis. No retroperitoneal lymphadenopathy. Normal gallbladder. Mild bladder wall thickening. This contains a punctate focus of gas. Multiple colonic diverticula. No evidence for bowel obstruction. Normal appendix. Tiny fat-containing umbilical hernia. Minimal pericolonic fat stranding surrounding the mid to distal transverse colon. This is consistent with a nonspecific colitis. Moderate stenosis at the origin of the inferior mesenteric artery. However, the remaining portions of the inferior mesenteric artery are widely patent. IMPRESSION: 1. No evidence for an aortic dissection. 2. Minimal pericolonic fat stranding involving the mid to distal transverse colon. This is consistent with a nonspecific colitis and could be due to an infectious, inflammatory, or ischemic process. 3. Mild bladder wall thickening which could be chronic or due to a cystitis. Recommend correlation with urinalysis. 4. Additional findings are described above. SINGLE VIEW CHEST CLINICAL HISTORY: Atypical chest pain. FINDINGS: An AP, portable, upright chest radiograph is compared to study dated 08/19/2016 and correlated with chest CT dated 06/14/2015. The examination is degraded by portable technique and patient rotation. The heart is enlarged. The pulmonary vasculature is noncongested. The lungs and pleural spaces are clear. No pneumothorax is seen. The skeletal structures are osteopenic. The bony thorax is grossly intact. IMPRESSION: Mild cardiac enlargement with no acute cardiopulmonary abnormality. EKG SB 48, no ischemic changes Impression Assessment and Plan 61 yo M with h/o cerebrovascular disease and CAD s/p cardiac catheterization with complication two weeks ago presents with acute chest pain, diarrhea and fatigue/malaise 1. Chest pain-atypical presentation after diarrhea earlier today. Has h/o CAD with stable angina and this was more concerning to patient especially in light of recent events with catheterization with complication. Two cardiac caths in last two months, but there have been no stents placed. CTA revealed no dissection, he is hemodynamically stable with non-ischemic workup so far. After he arrived to the floor the pain was gone without intervention. Morphine and Nitro PRN. Trend enzymes overnight. EKG in am. Discussed case briefly with Cardiology who will see him in am. Cont ASA, Plavix, lisinopril, Lopressor. Noted statin intolerance. 2. Stroke-new L thalamic stroke, old L MCA stroke. Pt reports a worsening of old deficits including aphasia, RUQ and RLE weakness and RUE numbness since his cardiac cath two weeks ago. He states he hasn't been able to walk around much since discharge 2/[address] today ID'd new thalamic stroke. Pt continues on Plavix and ASA. Will not adjust meds. Statin intolerance noted. Neuro was consulted to see him. 3. Colitis-nonspecific in setting of acute diarrhea. No recent abx use. Stool studies ordered. Tolerating PO and appears to be hydrated. Pt had hives as a reaction to IV Cipro in the ER tonight. Flagyl was given without issue. Regimen was shifted to Zosyn empirically. Of note there is no abdominal pain, fever or chills. Blood cultures pending 4. Bacteriuria-likely recent instrumentation with [facility] while recently hospitalized. Zosyn empirically covering any issues in this asymptomatic male while awaiting culture. 5. DMII-uncontrolled as outpatient so Prandin was recently added in last two weeks. Pt hypoglycemic when he arrived to ER. Will order ISS and Lantus but hold Lantus tonight. Pharmacy consult ordered. 6. HTN-controlled on new regimen including Norvasc 5mg, Metoprolol 150mg PO BID , and Lisinopril 20mg PO daily. 7. Chronic OA pain-Cymbalta 8. Carotid stenosis-s/p stent placement in the past. US ordered for am. Full Code DVT proph-Lovenox Dispo-[facility] Level of Care Telemetry Resuscitation Status FULL RESUSCITATION VTE Prophylaxis VTE Risk Assessment Done? Y/N: Yes Risk Level: Moderate Given or contraindicated: Enoxaparin (Lovenox)SQ
[2017-07-24] MEDS ORDERED: PIPERACILL/TAZOBAC IV 3.375 GM in DEXTROSE 5% 100ML IV ONE (22:15)
[2017-07-24] MEDS ORDERED: PIPERACILL/TAZOBAC CONSULT ACTIVE PRN (22:15)
--- NOTE | 2017-07-24 22:38 | DIAGNOSTIC IMAGING REPORT ---
MRI OF THE BRAIN WITHOUT IV CONTRAST CLINICAL HISTORY: Change in mental status. COMPARISON STUDY: CT scans of the brain dated 08/19/2016 and 07/24/2017. TECHNIQUE: MRI of the brain was performed utilizing various T1 and T2-weighted sequences in the axial, sagittal, and coronal planes. IV contrast was not administered for this examination. FINDINGS: Brain parenchyma: Left frontal encephalomalacia is consistent with a remote infarct. There are age-related involutional changes noting mild subcortical and periventricular microangiopathic disease. There is a 1.9 cm T2 hyperintense and T1 hypointense focus centered in the left thalamus on axial image #13. There is no restricted diffusion identified at this site (T2 shine-through is noted). The thalamus appears somewhat expanded, and the appearance is atypical for lacunar infarct. There is no hemorrhage or mass effect. There is no restricted diffusion to indicate acute ischemia. Bridges-white matter differentiation is preserved. No extra-axial fluid collection is seen. The cerebellar tonsils are normal in configuration. 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 Ventricles, sulci, and cisterns: Prominent secondary to involutional change. Pituitary and sella: Unremarkable. Intracranial vasculature: Normal flow voids are maintained at the skull base. Orbits: The bony orbits are grossly intact. Orbital contents are normal in appearance. Sinuses and mastoids: Clear. Calvarium: Unremarkable. Cervical cord: Partially visualized cervical spinal cord is normal in morphology and signal intensity. IMPRESSION: 1. There is a 1.9 cm T2 hyperintense and T1 hypointense focus centered in the left thalamus, which corresponds to the abnormality seen by CT. There is no corresponding restricted diffusion, and although this could represent ischemic change the appearance is atypical. Correlation with a contrast-enhanced examination is suggested for further assessment and exclude underlying mass lesion. 2. 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 3. A remote left frontal infarct is unchanged. No restricted diffusion is seen to indicate acute ischemia. There is no hemorrhage or mass effect. Electronically signed by: Hernandez Sanches M.D. 07/24/2017 10:37 PM Dictated Date/Time: 07/24/2017 10:29 PM
[2017-07-24] MEDS: LISINOPRIL 20 MG TAB PO SCH (22:48)
[2017-07-24 23:39] LABS: CKMB/CK RATIO 1.8 (0-3.0)
[2017-07-24 23:48] VITALS: BP 104/61; PULSE 62; TEMP 37.1; O2SAT 95
[2017-07-25] VITALS (9 sets, daily range): BP systolic 80–116; BP diastolic 32–70; PULSE 59–70; TEMP 36.4–37.1; O2SAT 96–97
[2017-07-25] MEDS: INSULIN ASPART 100 UNITS/ML 3 ML PEN SC SCH ×6 (00:25→20:37)
[2017-07-25] MEDS ORDERED: PIPERACILL/TAZOBAC IV 3.375 GM in DEXTROSE 5% 100ML IV SCH (04:00)
[2017-07-25] MEDS ORDERED: INSULIN GLARGINE SOLOSTAR 100 UNITS/ML 3 ML PEN SC STA (04:54)
[2017-07-25 05:52] LABS: BASO % 0.1 %; BASO ABS # 0.01 K/uL (0-0.2); COMPLETE YES; HEMATOCRIT 35.1 % (42-52); IG% 0.4 %; LYMPH % 8.5 %; LYMPH ABS # 0.72 K/uL (1.2-3.4); MEAN CELL VOLUME 92.1 fL (80-100); MEAN CORPUSCULAR HEMOGLOBIN 29.7 pg (25-34); MEAN CORPUSCULAR HGB CONC 32.2 g/dl (32-36); MEAN PLATELET VOLUME 9.3 fL (7.4-10.4); MONO % 0.6 %; NEUT % 90.4 %; PLATELET COUNT 278 K/uL (130-400); RED BLOOD COUNT 3.81 M/uL (4.7-6.1); WHITE BLOOD COUNT 8.43 K/uL (4.8-10.8)
[2017-07-25 06:27] LABS: BLOOD UREA NITROGEN 21 mg/dl (7-18); BUN/CREATININE RATIO 16.2 (10-20); CALCIUM 8.7 mg/dl (8.5-10.1); CARBON DIOXIDE 24 mmol/L (21-32); CHLORIDE 104 mmol/L (98-107); GLUCOSE 267 mg/dl (70-99); POTASSIUM 4.6 mmol/L (3.5-5.1); SODIUM 133 mmol/L (136-145)
[2017-07-25 06:34] LABS: CHOLESTEROL 163 mg/dl (0-200); CHOLESTEROL/HDL RATIO 3.9; HDL CHOLESTEROL 42 mg/dl; LDL CHOLESTEROL CALCULATED 97 mg/dl; TRIGLYCERIDES 120 mg/dl (0-150); VERY LOW DENSITY LIPOPROT CALC 24 mg/dl
[2017-07-25] MEDS ORDERED: PNEUMOCOCCAL ADMINISTRATION CHARGE ONE (06:45)
[2017-07-25] MEDS ORDERED: PNEUMOCOCCAL POLYSACCHARIDES 25 MCG/0.5 ML VIAL/SYR IM. ONE (06:45)
[2017-07-25 07:15] LABS: ESTIMATED AVERAGE GLUCOSE 146 mg/dl; HA1C FLAG Normal (Normal)
[2017-07-25] MEDS ORDERED: AMLODIPINE BESYLATE 5 MG TAB PO SCH (09:00)
[2017-07-25] MEDS ORDERED: ENOXAPARIN 40 MG/0.4 ML SYR SC SCH (09:00)
[2017-07-25] MEDS ORDERED: ISOSORBIDE MONONITRATE 60 MG TABCR PO SCH (09:00)
--- NOTE | 2017-07-25 09:00 | DIAGNOSTIC IMAGING REPORT ---
CAROTID DOPPLER NECK ART CLINICAL HISTORY: 61 years-old Male with stroke. Acute strokelike symptoms. COMPARISON: MRI brain 07/24/2017 TECHNIQUE: Multiple real time sonographic images of the carotid bifurcations were obtained assessing rosario scale, color Doppler and spectral wave form appearance FINDINGS: RIGHT INTERNAL CAROTID: The peak systolic velocity measured 106 cm/sec. The end diastolic velocity measured 45 cm/sec. The ICA to CCA ratio measured 1.4 which correlates with a stenosis of 0-50%. There appears to been prior endarterectomy of the right ICA. No significant plaquing. LEFT INTERNAL CAROTID: There is moderate to advanced atherosclerotic plaquing throughout the left common carotid artery, carotid bulb and proximal left ICA. There is no flow identified within the left internal carotid artery suggesting complete occlusion. There is normal antegrade vertebral flow bilaterally. Mildly blunted waveforms are seen within the left vertebral artery. IMPRESSION: 1. Complete occlusion of the left internal carotid artery. 2. No hemodynamically significant stenosis of the right internal carotid artery. 3. Antegrade vertebral artery flow bilaterally. The above report was generated using voice recognition software. It may contain grammatical, syntax or spelling errors. Electronically signed by: Aries Morales M.D. 07/25/2017 8:59 AM Dictated Date/Time: 07/25/2017 8:54 AM
[2017-07-25] MEDS: ASPIRIN 81 MG CHEW PO SCH (09:26)
[2017-07-25] MEDS: DULOXETINE HCL 60 MG CAP PO SCH (09:26)
[2017-07-25] MEDS: FoLIC ACID TAB 400 MCG TAB PO SCH (09:27)
[2017-07-25] MEDS: TAMSULOSIN HCL 0.4 MG CAP PO SCH (09:27)
[2017-07-25] MEDS: METOPROLOL TARTRATE 100 MG TAB PO SCH ×2 (09:29→20:21)
[2017-07-25] MEDS: CLOPIDOGREL BISULFATE 75 MG TAB PO SCH (09:30)
[2017-07-25] MEDS: CHOLECALCIFEROL 1000 INTER.UNIT TAB PO SCH (09:31)
[2017-07-25] MEDS: THIAMINE HCL 100 MG TAB PO SCH (09:31)
--- NOTE | 2017-07-25 09:36 | Progress Note ---
Medicine Progress Note Date & Time of Visit: Jul 25, 2017 at 09:26. Subjective patient seen resting in bedside chair, family at the bedside states he feels improved today denies abdominal pain, diarrhea no chest pain, dyspnea, palpitations overnight states right sided weakness is much better no other symptoms Objective Last 8 Hrs Date Time Temp Pulse Resp B/P (MAP) Pulse Ox O2 Delivery O2 Flow Rate FiO2 07/25/17 07:53 Room Air 07/25/17 07:35 36.4 63 18 116/70 (85) 96 Room Air 07/25/17 03:05 Room Air 07/25/17 02:51 36.8 59 18 103/61 (75) 96 Room Air Physical Exam: General- oriented x 3, not in distress, speaks in sentences with no effort Head- atraumatic Eyes- PERRL, EOMI, anicteric ENT- oropharynx clear Neck- supple, no JVD, no adenopathy, no thyromegaly Lungs- clear to auscultation bilaterally Heart- regular rhythm; no murmur, normal rate Abdomen- normal bowel sounds, soft, nontender Extremities- no pretibial edema, no calf tenderness; peripheral pulses intact Neuro- alert, oriented x 3; PERRL, EOMI; no facial palsy; no dysarthria; motor 5 /5 bilaterally; sensation 100% Skin- warm & dry Laboratory Results: Last 24 Hours Test 07/24/17 16:45 07/24/17 17:00 07/24/17 17:16 07/24/17 17:19 Bedside Glucose 66 mg/dl White Blood Count 17.72 K/uL Red Blood Count 3.95 M/uL Hemoglobin 11.8 g/dL Hematocrit 36.8 % Mean Corpuscular Volume 93.2 fL Mean Corpuscular Hemoglobin 29.9 pg Mean Corpuscular Hemoglobin Concent 32.1 g/dl Platelet Count 349 K/uL Mean Platelet Volume 9.3 fL Neutrophils (%) (Auto) 78.3 % Lymphocytes (%) (Auto) 13.8 % Monocytes (%) (Auto) 5.5 % Eosinophils (%) (Auto) 1.3 % Basophils (%) (Auto) 0.6 % Neutrophils # (Auto) 13.88 K/uL Lymphocytes # (Auto) 2.45 K/uL Monocytes # (Auto) 0.97 K/uL Eosinophils # (Auto) 0.23 K/uL Basophils # (Auto) 0.10 K/uL RDW Standard Deviation 45.3 fL RDW Coefficient of Variation 13.2 % Immature Granulocyte % (Auto) 0.5 % Immature Granulocyte # (Auto) 0.09 K/uL Sodium Level 137 mmol/L Potassium Level 5.1 mmol/L Chloride Level 101 mmol/L Carbon Dioxide Level 21 mmol/L Anion Gap 15.0 mmol/L Blood Urea Nitrogen 19 mg/dl Creatinine 1.23 mg/dl Est Creatinine Clear Calc Drug Dose 77.7 ml/min Estimated GFR () 72.5 Estimated GFR (Non- 62.5 BUN/Creatinine Ratio 15.5 Random Glucose 59 mg/dl Calcium Level 9.7 mg/dl Magnesium Level 2.2 mg/dl Total Bilirubin 0.3 mg/dl Direct Bilirubin mg/dl Aspartate Amino Transf (AST/SGOT) 22 U/L Alanine Aminotransferase (ALT/SGPT) 30 U/L Alkaline Phosphatase 78 U/L Troponin I < 0.015 ng/ml Pro-B-Type Natriuretic Peptide 219 pg/ml Total Protein 8.6 gm/dl Albumin 3.6 gm/dl Lipase 355 U/L Chemistry Specimen Hemolysis Prothrombin Time 10.4 SECONDS Prothromb Time International Ratio 1.0 Activated Partial Thromboplast Time 28.0 SECONDS Partial Thromboplastin Ratio 1.1 Bedside Lactic Acid Venous 1.38 mmol/L Test 07/24/17 17:22 07/24/17 20:50 07/24/17 21:22 07/24/17 23:00 Bedside Hemoglobin 11.2 g/dl Bedside Hematocrit 33 % Bedside Sodium 134 mEq/L Bedside Potassium 5.2 mEq/L Bedside Chloride 101 mEq/L Bedside Total CO2 27 mEq/l Anion Gap 13.0 mmol/L Bedside Blood Urea Nitrogen 19 mg/dl Bedside Creatinine 1.1 mg/dl Bedside Glucose (other) 196 mg/dl Bedside Ionized Calcium (Mony) 1.24 mmol/l Urine Color YELLOW Urine Appearance CLEAR Urine pH 6.5 Urine Specific [place] 1.023 Urine Protein NEG Urine Glucose (UA) NEG Urine Ketones NEG Urine Occult Blood TRACE Urine Nitrite NEG Urine Bilirubin NEG Urine Urobilinogen NEG Urine Leukocyte Esterase SMALL Urine WBC (Auto) 10-30 /hpf Urine RBC (Auto) 0-4 /hpf Urine Hyaline Casts (Auto) 0 /lpf Urine Epithelial Cells (Auto) 10-20 /lpf Urine Bacteria (Auto) 1+ Bedside Glucose 88 mg/dl Total Creatine Kinase 28 U/L Creatine Kinase MB 0.5 ng/ml Creatine Kinase MB Ratio 1.8 Troponin I < 0.015 ng/ml Test 07/24/17 23:53 07/25/17 04:40 07/25/17 05:33 07/25/17 06:38 Bedside Glucose 202 mg/dl 260 mg/dl 242 mg/dl White Blood Count 8.43 K/uL Red Blood Count 3.81 M/uL Hemoglobin 11.3 g/dL Hematocrit 35.1 % Mean Corpuscular Volume 92.1 fL Mean Corpuscular Hemoglobin 29.7 pg Mean Corpuscular Hemoglobin Concent 32.2 g/dl Platelet Count 278 K/uL Mean Platelet Volume 9.3 fL Neutrophils (%) (Auto) 90.4 % Lymphocytes (%) (Auto) 8.5 % Monocytes (%) (Auto) 0.6 % Eosinophils (%) (Auto) 0.0 % Basophils (%) (Auto) 0.1 % Neutrophils # (Auto) 7.62 K/uL Lymphocytes # (Auto) 0.72 K/uL Monocytes # (Auto) 0.05 K/uL Eosinophils # (Auto) 0.00 K/uL Basophils # (Auto) 0.01 K/uL RDW Standard Deviation 43.5 fL RDW Coefficient of Variation 13.0 % Immature Granulocyte % (Auto) 0.4 % Immature Granulocyte # (Auto) 0.03 K/uL Sodium Level 133 mmol/L Potassium Level 4.6 mmol/L Chloride Level 104 mmol/L Carbon Dioxide Level 24 mmol/L Anion Gap 5.0 mmol/L Blood Urea Nitrogen 21 mg/dl Creatinine 1.30 mg/dl Est Creatinine Clear Calc Drug Dose 70.3 ml/min Estimated GFR () 67.8 Estimated GFR (Non- 58.5 BUN/Creatinine Ratio 16.2 Random Glucose 267 mg/dl Estimated Average Glucose 146 mg/dl Hemoglobin A1c 6.7 % Calcium Level 8.7 mg/dl Total Creatine Kinase 22 U/L Creatine Kinase MB < 0.5 ng/ml Creatine Kinase MB Ratio Troponin I < 0.015 ng/ml Triglycerides Level 120 mg/dl Cholesterol Level 163 mg/dl HDL Cholesterol 42 mg/dl LDL Cholesterol, Calculated 97 mg/dl VLDL Cholesterol, Calculated 24 mg/dl Cholesterol/HDL Ratio 3.9 Date/Time Source Procedure Growth Status 07/24/17 17:14 Blood Blood Culture Pending Received 07/24/17 17:00 Blood Blood Culture Pending Received 07/24/17 20:50 Urine , Clean Catch Urine Culture Pending Received Assessment & Plan 61 yo M with h/o cerebrovascular disease and CAD s/p cardiac catheterization with complication two weeks ago presents with acute chest pain, diarrhea and fatigue/malaise 1. CHEST PAIN, HISTORY OF CAD, RCA DISSECTION - Chest CT: no aortic dissection - cardiac markers negative, EKG no signs of ischemia continue ASA, Plavix, ISMN, Metoprolol, Lisinopril Cardiology consulted 2. Stroke-new L thalamic stroke, old L MCA stroke. - Pt reports a worsening of old deficits including aphasia, RUQ and RLE weakness and RUE numbness since his cardiac cath two weeks ago. - MRI Brain: noted - continue ASA, Plavix Neurology consulted PT/OT 3. Colitis -nonspecific in setting of acute diarrhea. No recent abx use. Stool studies ordered. - diarrhea resolved stool cultures: pending - change from Zosyn to Augmentin (allergic to Cipro) 4. Bacteriuria-likely recent instrumentation with [facility] while recently hospitalized - no urinary symptoms - ff up urine culture 5. DMI -uncontrolled as outpatient so Prandin was recently added in last two weeks. - ISS and Lantus Pharm Glycemic Management 6. HTN-controlled on new regimen including Norvasc 5mg, Metoprolol 150mg PO BID , and Lisinopril 20mg PO daily. 7. Chronic OA pain-Cymbalta 8. Left Internal Carotid stenosis-s/p stent placement RCA in the past. - Carotid US: (+) complete occlusion of L Carotid Artery - on ASA, Plavix, Statin - Neurology consulted DVT proph-Lovenox Dispo PT/OT ordered lives with family at home Current Inpatient Medications: Current Inpatient Medications Medications (Trade) Dose Ordered Sig/Andi Route Start Time Stop Time Status Last Admin Dose Admin Enoxaparin Sodium (Lovenox Inj) 40 mg DAILY SC 07/25/17 09:00 08/24/17 08:59 Acetaminophen (Tylenol Tab) 650 mg Q4H PRN PO 07/24/17 20:00 08/23/17 19:59 Ondansetron HCl (Zofran Inj) 4 mg Q6H PRN IV 07/24/17 20:00 08/23/17 19:59 Nitroglycerin (Nitrostat Tab) 0.4 mg UD PRN SL 07/24/17 20:00 08/23/17 19:59 Morphine Sulfate (MoRPHine SULFATE INJ) 2 mg Q30M PRN IV 07/24/17 20:00 08/07/17 19:59 Polyethylene (Miralax Powder Packet) 17 gm DAILY PRN PO 07/24/17 20:00 08/23/17 19:59 Insulin Aspart (novoLOG ASPART) SLIDING SCALE If C... ACHS SC 07/24/17 21:00 08/23/17 20:59 07/25/17 08:16 14 UNITS Glucose (Glucose 40% Gel) 15-30 GRAMS 15 GRAMS... UD PRN PO 07/24/17 20:15 08/23/17 20:14 Glucose (Glucose Chew Tab) 4-8 Tablets 4 Tabl... UD PRN PO 07/24/17 20:15 08/23/17 20:14 Dextrose (Dextrose 50% 50ML Syringe) 25-50ML OF 50% DW IV FOR... UD PRN IV 07/24/17 20:15 08/23/17 20:14 Glucagon (Glucagon Inj) 1 mg UD PRN SQ 07/24/17 20:15 08/23/17 20:14 Miscellaneous Information (Consult Glycemic Management Pharmacy) 1 UD PRN N/A 07/24/17 20:58 08/23/17 20:57 Miscellaneous Information (Pharmacist Discharge Med Rec Consult) 1 UD PRN N/A 07/24/17 20:15 08/23/17 20:14 Albuterol (Ventolin Hfa Inhaler) 2 puffs QID PRN INH 07/24/17 21:00 08/23/17 20:59 Alendronate Sodium (Fosamax Tab) 70 mg Moore@0900 PO 07/26/17 09:00 08/25/17 08:59 Amlodipine Besylate (Norvasc Tab) 5 mg QAM PO 07/25/17 09:00 08/24/17 08:59 Aspirin (Aspirin Chew) 81 mg QAM PO 07/25/17 09:00 08/24/17 08:59 Cholecalciferol (Vitamin D Tab) 1,000 inter.unit QAM PO 07/25/17 09:00 08/24/17 08:59 Clopidogrel Bisulfate (plAVix TAB) 75 mg QAM PO 07/25/17 09:00 08/24/17 08:59 Cyclobenzaprine HCl (Flexeril Tab) 10 mg DAILY PRN PO 07/24/17 21:00 08/23/17 20:59 Duloxetine HCl (Cymbalta Cap) 60 mg QAM PO 07/25/17 09:00 08/24/17 08:59 Lisinopril (Zestril Tab) 20 mg HS PO 07/24/17 21:00 08/23/17 20:59 07/24/17 22:48 20 MG Metoprolol Tartrate (Lopressor Tab) 150 mg BID PO 07/24/17 21:00 08/23/17 20:59 Oxycodone HCl (Roxicodone Immediate Rel Tab) 5 mg Q12 PRN PO 07/24/17 21:00 08/07/17 20:59 Tamsulosin HCl (Flomax Cap) 0.4 mg QAM PO 07/25/17 09:00 08/24/17 08:59 Thiamine HCl (Vitamin B-1 Tab) 100 mg QAM PO 07/25/17 09:00 08/24/17 08:59 Tramadol HCl (Ultram Tab) 50 mg Q6H PRN PO 07/24/17 21:00 08/23/17 20:59 Isosorbide Mononitrate (Imdur Ext Rel Tab) 60 mg QAM PO 07/25/17 09:00 08/24/17 08:59 Folic Acid (Folvite Tab) 800 mcg QAM PO 07/25/17 09:00 08/24/17 08:59 Insulin Aspart (novoLOG ASPART) SLIDING SCALE If C... 0000,0400 SC 07/25/17 00:00 08/24/17 00:00 07/25/17 04:46 6 UNITS Amoxicillin/ Clavulanate Potassium (Augmentin Tab) 875 mg BIDM PO 07/25/17 16:45 08/04/17 16:44 UNV
--- NOTE | 2017-07-25 11:31 | CARDIOLOGY CONSULTATION ---
DATE OF CONSULTATION: 07/25/2017 REASON FOR CONSULTATION: Chest pain. REFERRING PHYSICIAN: Dr. Tameka Burleson. HISTORY OF PRESENT ILLNESS: Mr. León is a 61-year-old male who is followed in the outpatient setting by Dr. Escamilla. He was recently referred for coronary intervention of a chronically occluded right coronary artery. The procedure was performed on 07/10/2017. Her review of the catheterization report, a proximal RCA dissection was created, which extended to the aortic root. The RCA was not successfully stented. The patient was observed at [facility] with repeat CT of the chest being performed on 07/11/2017, which demonstrated no evidence of dissection. The patient was discharged to home, hydralazine and amlodipine added to the patient's medication to maintain systolic blood pressure below 130. The patient developed significant diarrhea as well as diaphoresis yesterday. This was also in the setting of substernal chest discomfort. He states the chest discomfort is very similar to discomfort he experienced prior to his recent catheterization. It was this chest discomfort that prompted referral for intervention. He is currently chest pain free. His ECG is unremarkable. Cardiac enzymes are undetectable. There are no dysrhythmias on telemetry. The patient also reports slurred speech, word finding issues, as well as right-sided weakness. These symptoms have been present since his cerebrovascular accident in 2012; however, symptoms have worsened since cardiac catheterization. There is MRI and CT evidence of a new thalamic cerebrovascular accident. Neurology and speech therapy have evaluated the patient. His blood pressure has remained controlled. Repeat CT angiogram of the chest performed yesterday demonstrates no evidence of dissection. The patient offers no other complaints at this time. REVIEW OF SYSTEMS: The pertinent positive is noted above, a comprehensive 10-system review is otherwise negative. PAST MEDICAL HISTORY: 1. Coronary artery disease with chronic right coronary artery occlusion with left to right collaterals, confirmed by repeat catheterization in May 2015. Initial RCA occlusion diagnosed in 2005. 2. Cerebrovascular accident involving the left MCA territory with associated left carotid occlusion in 2012. 3. Dyslipidemia. 4. Hypertension. 5. Tobacco use disorder. 6. Colon polyp. PAST SURGICAL HISTORY: 1. Recent cardiac catheterization with attempted intervention for chronic total occlusion of the right coronary artery, complicated by proximal RCA and aortic root dissection without hemodynamic compromise. 2. Right-sided internal carotid artery stenting. 3. Colonoscopy. 4. Tonsillectomy and adenoidectomy. 5. Bilateral hip replacement. SOCIAL HISTORY: Former tobacco use with a [id number] history. Denies alcohol or illicit drug use. FAMILY HISTORY: Negative for premature CAD or sudden cardiac however noncontributory. ALLERGIES: SIMVASTATIN WITH SEVERE MYALGIAS WELL SEVERE MYALGIA RELATED TO ONCE WEEKLY, CRESTOR. CURRENT OUTPATIENT MEDICATIONS: 1. Amlodipine 5 mg daily. 2. Amoxicillin 500 mg. 3. Aspirin 81 mg daily. 4. Plavix 75 mg daily. 5. Imdur 60 mg daily. 6. Cymbalta 60 mg daily. 7. Lisinopril 20 mg at bedtime. 8. Metformin 1000 mg twice daily. 9. Lopressor 150 mg twice daily. 10. Prandin 1 mg daily. 11. Flomax daily. 12. Thiamine daily. 13. Albuterol as needed. 14. Flexeril as needed. 15. DuoNeb as needed. 16. Oxycodone 5 mg as needed. 17. Tramadol as needed. ECG on admission: Sinus bradycardia, otherwise normal ECG. Chest x-ray on admission: Mild cardiac enlargement with no acute cardiopulmonary abnormality. CT angiography, no evidence of dissection. CT of the head, subacute infarct of the left thalamus. MRI of the brain: Remote left frontal infarct, unchanged. Hypointense focus centered on the left thalamus, which is a typical contrast study recommended. LABORATORY DATA: Sodium 133, potassium 4.6, chloride 104, CO2 is 24, BUN is 21, creatinine is 1.3. LDL is 97. White blood cell count 8.43, hemoglobin is 11.3, platelet count is 278. INR is 1.0. PHYSICAL EXAMINATION: VITAL SIGNS: Temperature is 36.4 degrees centigrade, pulse 63 beats per minute and regular, respiratory rate is 18 breaths per minute, blood pressure 116/70, SaO2 is 96% on room air. GENERAL: NAD, awake, alert and oriented x3. HEENT: Mucous membranes are moist. No scleral icterus. Conjunctivae pink. NECK: Supple without JVD or HJR. No carotid bruit. HEART: Regular with a normal S1 and S2. There is no murmur, rub, or gallop. LUNGS: Clear without rales, rhonchi or wheeze. ABDOMEN: Soft, nontender. No rebound or guarding. Normal bowel sounds. EXTREMITIES: Warm and dry. There is no clubbing, cyanosis, or edema. NEUROLOGIC: Demonstrates right-sided weakness, mild word finding difficulty, mild slurred speech. No facial asymmetry. FINAL IMPRESSION: 1. A 61-year-old male admitted with recurrent chest discomfort, which is chronic in nature. The pain is similar to symptoms noted prior to cardiac catheterization. There is no objective evidence of acute coronary syndrome. There is no evidence of recurrent thoracic aortic dissection. 2. Chronic right coronary artery occlusion with recent failed attempted intervention. 3. History of cerebrovascular accident with exacerbation of known underlying deficits since recent cardiac catheterization. MRI suggests CVA vs. mass. 4. Hypertension, controlled with borderline resting hypotension. 5. Diabetes type 2. 6. Dyslipidemia, on statin intolerance. 7. Carotid vascular disease with known chronically occluded left internal carotid artery as well as right carotid vascular disease status post stenting. 8. Diarrhea with CT evidence of colitis. PLAN AND RECOMMENDATIONS: Resting 2D transthoracic echo will be performed to exclude new regional wall motion abnormalities. Otherwise, patient will continue current cardiovascular medications including amlodipine, metoprolol, isosorbide monohydrate, aspirin, Plavix. A contrast MRI ordered for further evaluation of possible thalamic CVA vs. mass. Neurology input appreciated. Consider gastroenterology followup for colitis. I will continue to follow during hospitalization. Thank you for allowing me to take part in the care of your patient. MEKA
--- NOTE | 2017-07-25 11:40 | NEUROLOGY CONSULTATION ---
DATE OF CONSULTATION: 07/25/2017 ADDENDUM I suspect the episodes that he experienced in the hospital: 1. Was with straining to urinate was micturition syncope. 2. I suspect the episode when he returned home and stood and lost consciousness represented orthostatic hypotension. I would recommend checking orthostatic blood pressures. 3. The patient's hypoglycemia on admission may have contributed to his general sense of feeling unwell, although it is an unlikely reason for his persistent worsened neurologic deficit. MEKA
--- NOTE | 2017-07-25 12:05 | NEUROLOGY CONSULTATION ---
DATE OF CONSULTATION: 07/25/2017 DATE OF CONSULTATION: 07/25/2017 REASON FOR CONSULTATION: Possible new left thalamic stroke. HISTORY OF PRESENT ILLNESS: The patient is known to me, he has a history of left MCA infarction 4 years ago which presented in the setting of a left occlusion and high-grade right internal carotid stenosis status post stenting of the right internal carotid. The patient has chronically intermittently had headaches. I last saw him in approximately August 2016 for the same. MRI of the brain at that time showed no acute process and the old left MCA infarction. Carotid ultrasound showed a chronic occlusion of the left internal carotid and less than 50% stenosis of the right. He has a history of underwent a cardiac catheterization because of chest pain and shortness of breath on 05/25/2017 which revealed 100% block to the right RCA with collateral from the LAD. There is a 50% blockage of the LAD. No intervention was performed. The patient apparently continued to be symptomatic. Cardiac MRI showed focal myocardial infarction, inferolateral segments that uninvolved part of the posteromedial papillary muscle. He was scheduled for repeat catheterization on 07/10/2017 with a planned PCI of the RCA. During that catheterization the PCI was unsuccessful and complicated by perforation of the proximal right RCA with concern for dissection. He underwent CTA of the chest showed the dissection of the right coronary cusp extending until the proximal right coronary artery. No dissection extended above the sinotubular junction. He was admitted, monitored, placed on aspirin and Plavix with the addition of p.o. hydralazine, metoprolol and amlodipine. The patient's indicates that on the day before discharge he strained to urinate, turned purple and shook for a few seconds, nursing was called. The patient's does not know anything about vitals or the impression. After the second catheterization, the patient had noted increased weakness in the right arm and leg and increased language problems which have persisted and not worsened. When the patient went home his brought him in from the house. He was generally weak and when she stood him up to bring him in the home he had a loss of consciousness, was pale, sweaty and he improved with lying down on the couch. She did not bring them back to the hospital. He has continued to speak of fatigue, ongoing chest pain and shortness of breath and the day of admission he had a diarrheal stool and substernal chest pain. He was brought to the hospital. In general his headaches have been improved for the last month or two. His weight has been stable. He has not had any fevers, chills or sweats. His evaluation included a CT of the head which appeared to show the old left MCA infarction as well as a hypodensity in the left thalamus. An MRI of the brain noncontrast shows a 1.9 cm T2 hyperintense, T1 hypointense focus in the left thalamus. No corresponding restricted diffusion and parenthetically the cath was approximately 10 days ago. Although this could represent an ischemic change, the appearance is atypical. Recommend a contrast enhanced study. 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 His carotid ultrasound confirms left carotid occlusion, no hemodynamically significant stenosis of the right internal carotid and antegrade flow in the vertebrals bilaterally. LABORATORY DATA: His white count on admission was 17.7, H&H 11.8/36.8, platelet count 349. PT, PTT normal. Chemistry profile on admission, glucose on admission was 66, on repeat was 59, but subsequently has been 196. Sodium was normal, potassium 5.1, BUN and creatinine 19/1.23. Total protein 8.6. Transaminase is normal. Calcium 9.7. Urinalysis trace blood, small leukocyte esterase, 1+ bacteria, 10-20 epithelial cells. A urine culture and blood culture are pending. His EKG was sinus bradycardia. PAST MEDICAL HISTORY: Notable for coronary artery disease, chronic pain, migraines, ____ third ventricle, COPD, type 2 diabetes, elevated cholesterol, reflux, carotid occlusion, hypertension, obesity, statin intolerance. SURGICAL HISTORY: Bilateral hip, rotator cuff repair, tonsillectomy, history of back surgery. FAMILY HISTORY: Notable for diabetes, hearing loss, hypertension, early coronary artery disease. Mother had a DVT as she was older. ALLERGIES: SIMVASTATIN MUSCLE PAIN, CIPRO HIVES. MEDICATIONS ON ADMISSION: Tylenol, Fosamax, AMLODIPINE, AMOXICILLIN, ASPIRIN, vitamin D3, Plavix, Cymbalta, Isordil, lisinopril, metformin, metoprolol, nitroglycerin, Prandin, Flomax, vitamin B1, folic acid. I believe he was receiving aspirin at home and is receiving that here. PHYSICAL EXAMINATION: He is a well-developed male in no distress. He is oriented x3. He has very minor difficulty with expressive language with minor word finding difficulty, repetitions, 3-step commands are normal. There are no carotid bruits. No heart murmurs. Heart is regular rate and rhythm. Radial pulses are palpably symmetric. Pupils are equal, round, reactive to light. The optic nerves are unremarkable. There are normal mcginnis and motility. No flattening of the nasolabial fold. Speech is nondysarthric. Right upper extremity distally is 4, proximally 3+, right lower is more full. There is no drift. There is equal rapid alternating movements. Reflexes are symmetric. Toes are downgoing. Sensory examination is intact to light touch. [id number] is mildly clumsy in the right upper extremity. Vbie-cz-vfht is normal. Gait is not hemiparetic. Vitals 36.4, 63, 116/70, 96%. IMPRESSION: Presumed thalamic infarct in the setting of a cardiac catheterization. PLAN: Continue antiplatelet therapy. MRI of brain with and without contrast. This is most likely an atypical infarction but cannot exclude space occupying lesion. Recommend MRA of the head to rule out vascular anomaly, intracranial stenosis. MRA of the neck to look at the large vessels proximally off the arch of the aorta. Echocardiography is going to be performed. Telemetric monitoring. Statins if tolerated. I would try to avoid hypotension if possible. Will follow with you. MEKA
--- NOTE | 2017-07-25 15:36 | ECHOCARDIOGRAM REPORT ---
*NOTICE TO RECEIVING [employer] This information is strictly Confidential and protected under [place] law. [place] law prohibits you from making any further disclosure of this information unless further disclosure is expressly permitted by the written consent of the person to whom it pertains or is authorized by law. A general authorization for the release of medical or other information is not sufficient for this purpose. Hospital accepts no responsibility if the information is made available to any other person, INCLUDING THE PATIENT. Interpretation Summary * Name: MANUEL GONZALES Study Date: 07/25/2017 02:40 PM BP: 108/64 mmHg * Patient Location: C.2T\S\S241\S\1 HR: 63 * : 1955 (M/d/yyyy) Gender: Male Height: 69 in * Age: 61 yrs Ethnicity: [place] Weight: 229 lb * Ordering Physician: Tomas Carr * Referring Physician: Self, Referred * Performed By: Kayleigh Healy RDCS * * Reason For Study: Chest pain * BSA: 2.2 m2 * The study was technically adequate. * Compared to prior study, there is no significant change. * -- Conclusions -- * Ejection Fraction = 60-65%. * There is mild concentric left ventricular hypertrophy. * No regional wall motion abnormalities noted. * There is no pericardial effusion. * No significant valvular disease. Procedure Details * A complete two-dimensional transthoracic echocardiogram was performed (2D, M-mode, Doppler and color flow Doppler). * A contrast injection of Definity was performed to improve assessment of LV function. * Contrast was injected into an intravenous site in the left arm. * One vial of Definity ultrasound contrast was diluted in normal saline to a total volume of 10 ml. A total of '2' ml of solution was administered during imaging. * Lot # [id number] of Definity utilized for procedure. * Expiration date AUG 10. * The attending nurse who injected the contrast agent was Arabella Sykes RN. Left Ventricle * The left ventricle is normal in size. * There is no thrombus. * There is mild concentric left ventricular hypertrophy. * Ejection Fraction = 60-65%. * Left ventricular systolic function is normal. * No regional wall motion abnormalities noted. Right Ventricle * The right ventricle is normal size. * The right ventricular systolic function is normal as assessed by tricuspid annular plane systolic excursion (TAPSE) (normal >1.5 cm). Atria * The left atrial size is normal. * Right atrial size is normal. * There is no evidence of atrial septal defect, but resolution does not allow assessment for a patent foramen ovale. Mitral Valve * The mitral valve is normal. * There is no mitral valve stenosis. * Significant mitral regurgitation is absent. Tricuspid Valve * The tricuspid valve is normal. * There is no tricuspid stenosis. * Significant tricuspid regurgitation is absent. Aortic Valve * The aortic valve opens well. * Aortic stenosis is absent. * There is no significant aortic regurgitation. Pulmonic Valve * The pulmonary valve is not well seen, but the Doppler examination is normal without significant regurgitation or stenosis. Great Vessels * The aortic root is normal size. Pericardium/Pleural * There is no pericardial effusion. Great Vessels * Normal inferior vena cava diameter and respiratory variation suggests normal central venous pressure. Left Ventricular Diastolic Function * Pulse wave TDI of the anterior and posterior mitral annulas demonstrates abnormal LV relaxation MMode 2D Measurements and Calculations IVSd 1.2 cm LVIDd 4.7 cm LVIDs 3.0 cm LVPWd 1.3 cm IVS/LVPW 0.95 FS 34.9 % EDV(Teich) 100.3 ml ESV(Teich) 35.9 ml EF(Teich) 64.2 % EDV(cubed) 101.2 ml ESV(cubed) 27.9 ml EF(cubed) 72.5 % LV mass(C)d 224.1 grams LV mass(C)dI 102.4 grams/m\S\2 SV(Teich) 64.4 ml SI(Teich) 29.4 ml/m\S\2 SV(cubed) 73.3 ml SI(cubed) 33.5 ml/m\S\2 Ao root diam 2.8 cm Ao root area 6.2 cm\S\2 LA dimension 3.2 cm asc Aorta Diam 3.3 cm LA/Ao 1.1 LVOT diam 2.0 cm LVOT area 3.1 cm\S\2 LVAd ap4 34.4 cm\S\2 LVLd ap4 8.7 cm EDV(MOD-sp4) 111.1 ml EDV(sp4-el) 115.6 ml LVAs ap4 19.6 cm\S\2 LVLs ap4 7.7 cm ESV(MOD-sp4) 41.5 ml ESV(sp4-el) 42.3 ml EF(MOD-sp4) 62.6 % EF(sp4-el) 63.4 % LVAd ap2 36.5 cm\S\2 LVLd ap2 8.4 cm EDV(MOD-sp2) 128.5 ml EDV(sp2-el) 134.2 ml LVAs ap2 17.9 cm\S\2 LVLs ap2 6.0 cm ESV(MOD-sp2) 43.5 ml ESV(sp2-el) 45.5 ml EF(MOD-sp2) 66.2 % EF(sp2-el) 66.1 % LVLd %diff -3.50 % EDV(MOD-bp) 120.9 ml LVLs %diff -29.01 % ESV(MOD-bp) 48.1 ml EF(MOD-bp) 60.2 % SV(MOD-sp4) 69.6 ml SI(MOD-sp4) 31.8 ml/m\S\2 SV(MOD-sp2) 85.0 ml SI(MOD-sp2) 38.9 ml/m\S\2 SV(MOD-bp) 72.8 ml SI(MOD-bp) 33.3 ml/m\S\2 SV(sp4-el) 73.3 ml SI(sp4-el) 33.5 ml/m\S\2 SV(sp2-el) 88.6 ml SI(sp2-el) 40.5 ml/m\S\2 Doppler Measurements and Calculations MV E max caitie 96.5 cm/sec MV A max caitie 81.5 cm/sec MV E/A 1.2 MV dec time 0.27 sec Ao V2 max 153.1 cm/sec Ao max PG 9.4 mmHg Ao max PG (full) 2.4 mmHg AUGUSTIN(V,A) 2.7 cm\S\2 A[place]IN(V,D) 2.7 cm\S\2 LV V1 max PG 7.0 mmHg LV V1 max 131.9 cm/sec PA V2 max 97.1 cm/sec PA max PG 3.8 mmHg PA acc slope 603.7 cm/sec\S\2 PA acc time 0.12 sec PA pr(Accel) 25.1 mmHg
--- NOTE | 2017-07-25 15:37 | Pharmacy Progress Note ---
Glycemic Control Intl Consult Date of Service Jul 25, 2017. Scope Glycemic Pharmacist consulted by Dr Burleson on 07/24/17 for glycemic control and to write orders per [facility] inpatient glycemic control protocol Objective Weight (Kilograms): 104.100 Accuchecks BSG (last 24hrs): Test 07/24/17 16:45 07/24/17 17:00 07/24/17 21:22 07/24/17 23:53 Bedside Glucose 66 mg/dl (70-99) 88 mg/dl (70-99) 202 mg/dl (70-99) Random Glucose 59 mg/dl (70-99) Test 07/25/17 04:40 07/25/17 05:33 07/25/17 06:38 07/25/17 11:20 Bedside Glucose 260 mg/dl (70-99) 242 mg/dl (70-99) 222 mg/dl (70-99) Random Glucose 267 mg/dl (70-99) Laboratory Data (last 24hrs) Test 07/24/17 17:00 07/24/17 17:22 07/25/17 05:33 Anion Gap 15.0 mmol/L 13.0 mmol/L 5.0 mmol/L BUN/Creatinine Ratio 15.5 16.2 Blood Urea Nitrogen 19 mg/dl 21 mg/dl Creatinine 1.23 mg/dl 1.30 mg/dl Potassium Level 5.1 mmol/L 4.6 mmol/L Sodium Level 137 mmol/L 133 mmol/L White Blood Count 17.72 K/uL 8.43 K/uL Red Blood Count 3.95 M/uL 3.81 M/uL Hemoglobin 11.8 g/dL 11.3 g/dL Hematocrit 36.8 % 35.1 % Mean Corpuscular Volume 93.2 fL 92.1 fL Mean Corpuscular Hemoglobin 29.9 pg 29.7 pg Mean Corpuscular Hemoglobin Concent 32.1 g/dl 32.2 g/dl Platelet Count 349 K/uL 278 K/uL Mean Platelet Volume 9.3 fL 9.3 fL Neutrophils (%) (Auto) 78.3 % 90.4 % Lymphocytes (%) (Auto) 13.8 % 8.5 % Monocytes (%) (Auto) 5.5 % 0.6 % Eosinophils (%) (Auto) 1.3 % 0.0 % Basophils (%) (Auto) 0.6 % 0.1 % Neutrophils # (Auto) 13.88 K/uL 7.62 K/uL Lymphocytes # (Auto) 2.45 K/uL 0.72 K/uL Monocytes # (Auto) 0.97 K/uL 0.05 K/uL Eosinophils # (Auto) 0.23 K/uL 0.00 K/uL Basophils # (Auto) 0.10 K/uL 0.01 K/uL Hemoglobin A1c 6.7 % HbA1c Test 07/25/17 05:33 Hemoglobin A1c 6.7 % (4.5-5.6) H Recent Pertinent Medications Outpatient Anti-diabetic Regimen: * Metformin 1 gram PO BID with meals * Prandin 1mg AC * A1c = 6.7 % 07/25/17 The patient is currently receiving: * NPH - 18 units SQ HS x 1 dose ordered last night (to cover steroid) - was discontinued by Dr Burleson - pt did not receive * Correctional Insulin: Novolog Correction per scale ACHS Goal Range: Low 110 mg/dL - High 150 mg/dL Correction Factor: 20 mg/dL/unit * Prandial insulin: Per carb ratio of 1 unit per 7 grams CHO consumed * Oral Agents: ON HOLD Risk Factors for Insulin Resistance: * Steroids: Solu-medrol 125mg IV x1 yesterday at 1999 * Infection: Augmentin * Diet: type 2 DM Assessment & Plan ASSESSMENT: * 61 year old male admitted with CP, stroke, and bacteremia, given 1 time dose of Solu-medrol 125mg IV yesterday at 1999 * NPH 18 units x1 dose ordered last night by glycemic pharmacist to cover effects of IV steroid, but this was cancelled by Dr Burleson, resulting in hyperglycemia throughout the night/ this morning * Lantus dose required today to cover steroid induced hyerglycemia * CF and CR also need tightened PLAN FOR INPATIENT GLYCEMIC CONTROL: * Holding outpatient oral diabetes medications * Basal insulin with LANTUS 15 units SQ x 1 dose (done today at 0500) - further Lantus dosing to be determined tomorrow based on BSGs and how IV steroid is continuing to effect BSGs * Correctional Insulin with NOVOLOG per scale ACHS or Q6hrs while NPO * Goal Range: Low 110 mg/dL - High 140 mg/dL * TIGHTEN: Correction Factor: 15 mg/dL/unit * TIGHTEN: Nutritional / Prandial insulin per carb ratio of 1 unit per 5 grams CHO consumed * Please note that the plan above was derived based on current level of insulin resistance and hospital stress. These recommendations are appropriate for inpatient admission only. Plan of care upon discharge will need to be reassessed to avoid potential outpatient hypo/hyperglycemia. Thank you.
[2017-07-25] MEDS: AMOXICILLIN/CLAVULANATE TAB 875 MG TAB PO SCH (17:24)
--- NOTE | 2017-07-25 18:29 | DIAGNOSTIC IMAGING REPORT ---
BRAIN COMBO HISTORY: 61 years-old Male L thal lesion atypical for stroke, r/o tumor follow-up study to assess left thalamic lesion. COMPARISON: MRI of the brain 07/24/2017, head CT 07/24/2017 TECHNIQUE: Multiplanar multisequence MRI of the brain was obtained both with and without the use of 10.5 mL Gadavist FINDINGS: No restricted diffusion to suggest acute infarction. Remote left frontal infarction with encephalomalacia and gliosis is noted. There is mild brain atrophy. There is an ovoid T2 hyperintense and T1 hypointense peripherally enhancing lesion of the left thalamus which also demonstrates some mild central enhancement, 1.9 x 1.1 x 1.4 cm with moderate amount of associated edema seen on the coronal T2 FLAIR sequence, image 14 series 7. No additional abnormal intra-axial or extra-axial enhancement identified. Colloid cyst near the foramen of Monro redemonstrated, 8 x 6 mm in size. There is no acute intracranial hemorrhage, midline shift, abnormal extra-axial collections or hydrocephalus. Mastoid air cells are clear. Paranasal sinuses are also generally clear. Orbits are symmetric. Scalp, calvarium and soft tissues are unremarkable. IMPRESSION: 1. Focal area of signal abnormality within the left thalamus as described on comparison studies correlates with a heterogeneous ring-enhancing lesion with some mild central enhancement measuring up to 1.9 x 1.1 x 1.4 cm. This causes mild expansion with associated vasogenic edema within the left thalamus. Differential considerations would include primary glial neoplasm or metastasis. No additional masses or abnormal enhancement identified. 2. Remote left frontal infarction with associated gliosis and encephalomalacia. 3. Unchanged subcentimeter colloid cyst seen near the foramen of Malena. The above report was generated using voice recognition software. It may contain grammatical, syntax or spelling errors. Electronically signed by: Aries Morales M.D. 07/25/2017 6:27 PM Dictated Date/Time: 07/25/2017 6:18 PM
--- NOTE | 2017-07-25 18:44 | DIAGNOSTIC IMAGING REPORT ---
MRA HEAD WITHOUT CONTRAST HISTORY: 61 years-old Male L thal stroke, prior L mca, known L carotid occ follow-up study in a patient with enhancing lesion of the left thalamus. Remote infarction of the left frontal lobe. COMPARISON: MRI brain of same day, carotid Doppler of same day TECHNIQUE: MRA of the head was obtained without contrast with MIP reformats. FINDINGS: There is no signal within the left internal carotid artery compatible with findings seen on carotid Doppler of same day which showed complete left ICA occlusion. The right internal carotid artery, right MCA and MASON are patent. There is reconstitution of flow through the [place] into the left anterior cerebral and middle cerebral arteries. There is decreased peripheral MCA distribution flow within the region of the remote left frontal infarction without focal occlusion or high-grade narrowing identified. The left vertebral artery is dominant. Bilateral vertebral arteries are patent. Basilar and posterior cerebral arteries also appear patent. No aneurysm or dissection identified. IMPRESSION: 1. Occlusion of the left internal carotid artery again seen with patent right ICA and reconstitution of flow through the [place] into the left MCA and MASON branches. 2. Decreased flow of the distal middle cerebral artery branches within the distribution of the remote left frontal infarction without discrete vessel occlusion or high-grade narrowing identified. 3. Otherwise unremarkable MRA of the head. The above report was generated using voice recognition software. It may contain grammatical, syntax or spelling errors. Electronically signed by: Aries Morales M.D. 07/25/2017 6:42 PM Dictated Date/Time: 07/25/2017 6:35 PM
--- NOTE | 2017-07-25 18:55 | DIAGNOSTIC IMAGING REPORT ---
MRA NECK COMBO CLINICAL HISTORY: 61 years-old Male with L thal infarct, known L carotid occlusion recent coronary dissec. Complete occlusion of left ICA. Follow-up study. COMPARISON STUDY: MRA of the head of same day, carotid Doppler same day.. TECHNIQUE: Axial 3-D [id number] MR angiography of the neck is performed. Subsequently, following the IV administration of 10.5 cc of Magnevist coronal MR angiogram of the neck was performed to corroborate the findings. 3-D reformats are created and assessed. All measurements were calculated based on NASCET criteria. FINDINGS: The large [id number] country director localizer images demonstrate no gross abnormality of the imaged neck or thorax. Study is mildly motion degraded. The bilateral common carotid arteries are patent. There is complete occlusion of the proximal left internal carotid artery as seen on image 69 series 13. There is a focal 0.7 cm segment of the mid to distal common carotid artery which demonstrates loss of signal as seen on image 88 series 13 and image 37 series 1401 with reconstitution of flow seen distally to this area. Additionally, there is loss of signal at the origin of the right internal carotid artery as seen on image 61 series 13 with reconstitution of flow seen distal to this area. Remaining right internal carotid artery is patent. The left vertebral artery is dominant. Bilateral vertebral arteries are patent. The majority of the right vertebral artery appears to terminate into the ipsilateral PICA. IMPRESSION: 1. Mildly motion degraded exam. 2. Complete occlusion of the left internal carotid artery which begins near its origin. 3. Focal area of high-grade narrowing or occlusion involving the mid to distal right common carotid artery as above with reconstitution of flow distally. 4. Focal high-grade stenosis or occlusion of the proximal right internal carotid artery with reconstitution of flow as above. The above report was generated using voice recognition software. It may contain grammatical, syntax or spelling errors. Electronically signed by: Aries Morales M.D. 07/25/2017 6:54 PM Dictated Date/Time: 07/25/2017 6:43 PM
[2017-07-25] MEDS: LISINOPRIL 20 MG TAB PO SCH (20:19)
--- NOTE | 2017-07-25 20:44 | Progress Note ---
Internal Med Progress Note Date of Service: Jul 25, 2017. Provider Documentation: Received call from Dr. Capone (neurologist on-call) who communicated her concerns about patient's borderline BP and multiple antihypertensives in px's medication regimen. Concern about cerebral hypoperfusion in light of ongoing intracranial process. Will decrease home beta ardha to 12.5 mg by mouth twice a day for now. Hold lisinopril, Norvasc, Imdur for now. May need to give fluid bolus for SBP below 100. Will relay to AM provider . Vital Signs: Date Time Temp Pulse Resp B/P (MAP) Pulse Ox O2 Delivery O2 Flow Rate FiO2 07/26/17 07:55 36.6 51 18 116/69 (85) 96 07/26/17 04:18 Room Air 07/26/17 02:35 36.5 51 16 99/59 (72) 96 Room Air 07/26/17 00:06 37.0 57 17 101/64 (76) 95 Room Air 07/26/17 00:05 Room Air 07/25/17 19:45 Room Air 07/25/17 19:37 37.1 61 20 114/68 (83) 96 Room Air 07/25/17 16:45 70 16 100/64 (76) 07/25/17 16:44 70 80/32 (48) CPAP 07/25/17 16:42 62 16 98/58 (71) 07/25/17 16:00 Room Air 07/25/17 15:33 37.1 59 21 100/59 (73) 96 Room Air 07/25/17 12:00 Room Air 07/25/17 11:36 63 97 07/25/17 11:35 36.9 59 18 108/64 (79) 96 Room Air Lab Results: Results Past 24 Hours Test 07/25/17 11:20 07/25/17 16:46 07/25/17 20:34 07/26/17 00:10 Range/Units Bedside Glucose 222 111 122 86 70-99 mg/dl Test 07/26/17 04:18 07/26/17 06:30 07/26/17 07:01 Range/Units Bedside Glucose 93 96 70-99 mg/dl White Blood Count 9.11 4.8-10.8 K/uL Red Blood Count 3.78 4.7-6.1 M/uL Hemoglobin 11.1 14.0-18.0 g/dL Hematocrit 35.3 42-52 % Mean Corpuscular Volume 93.4 80-100 fL Mean Corpuscular Hemoglobin 29.4 25-34 pg Mean Corpuscular Hemoglobin Concent 31.4 32-36 g/dl Platelet Count 273 130-400 K/uL Mean Platelet Volume 8.9 7.4-10.4 fL Neutrophils (%) (Auto) 55.9 % Lymphocytes (%) (Auto) 36.7 % Monocytes (%) (Auto) 5.9 % Eosinophils (%) (Auto) 0.7 % Basophils (%) (Auto) 0.5 % Neutrophils # (Auto) 5.09 1.4-6.5 K/uL Lymphocytes # (Auto) 3.34 1.2-3.4 K/uL Monocytes # (Auto) 0.54 0.11-0.59 K/uL Eosinophils # (Auto) 0.06 0-0.5 K/uL Basophils # (Auto) 0.05 0-0.2 K/uL RDW Standard Deviation 46.1 36.4-46.3 fL RDW Coefficient of Variation 13.5 11.5-14.5 % Immature Granulocyte % (Auto) 0.3 % Immature Granulocyte # (Auto) 0.03 0.00-0.02 K/uL Sodium Level 139 136-145 mmol/L Potassium Level 4.6 3.5-5.1 mmol/L Chloride Level 107 98-107 mmol/L Carbon Dioxide Level 26 21-32 mmol/L Anion Gap 6.0 3-11 mmol/L Blood Urea Nitrogen 21 7-18 mg/dl Creatinine 1.09 0.60-1.40 mg/dl Est Creatinine Clear Calc Drug Dose 84.0 ml/min Estimated GFR () 83.9 Estimated GFR (Non- 72.4 BUN/Creatinine Ratio 19.1 10-20 Random Glucose 91 70-99 mg/dl Calcium Level 8.7 8.5-10.1 mg/dl
[2017-07-25] MEDS ORDERED: SODIUM CHLORIDE 0.9% 500ML 500 ML IV ONE (21:00)
[2017-07-25] MEDS ORDERED: SODIUM CHLORIDE 0.9% 1000ML 1,000 ML IV ONE (21:15)
[2017-07-25] MEDS ORDERED: OPTIRAY 320 IV PRN (22:30)
--- NOTE | 2017-07-25 22:37 | PROGRESS NOTE ---
DATE: 07/25/2017 I have spoken to Dr. Tenorio and then subsequently Dr. Small about Mr. León' imaging. At the time, I had looked at his MRI of the brain, no report was available, but there is a left thalamic apparent mass. The differential is broad includes a primary tumor metastasis. Certainly in that location, the primary [employer] lymphoma be reasonable if he was immunocompromised toxoplasmosis would be within the differential. The MRA of the neck shows no apparent and no unusual occlusion with reconstitution of the right common carotid artery. I have reviewed his carotid ultrasound. Our records not showed occlusion, but of course is probably not imaging that component of the vessel. The question of whether or not there is an occlusion on the right common and distal reconstitution with a known occluded left internal carotid makes avoiding hypotension important. Of note, the patient did have a syncopal episode while hospitalized at [facility] from straining to urinate and then had another syncopal episode when standing, getting out of his car when he returned home from hospitalization, so I have asked Dr. Small to avoid the patient being hypotensive. He is going to consult with the radiologist whether or not the patient can get an iodinated dye given that he had iodinated dye yesterday and an MRA dye this evening. He will need a CTA of the carotids to confirm that they are patenentIt terms of distinguishing the etiology of the left thalamic mass, I would recommend imaging of the chest, abdomen and pelvis to rule out a primary malignancy, toxoplasmosis titers on serum, HIV status. It would be reasonable to tap him . Currently on Plavix and I think that a relative contraindication that may well need to be stopped for several days if safe from a cardiac perspective. I would recommend that he be transferred to neurosurgical service tomorrow for an opinion. I will continue to follow with you. MEKA
--- NOTE | 2017-07-25 22:41 | DIAGNOSTIC IMAGING REPORT ---
NECK ANGIO WITH CONTRAST CLINICAL HISTORY: 61 years-old Male presents with left thalamic lesion and complete occlusion of the left ICA COMPARISON STUDY: MRA of the neck of same day, MRI brain of same day TECHNIQUE: Following the IV administration of 116 of Optiray 320, CT angiogram of the neck was performed from the aortic arch to the skull base. Images are reviewed in the axial, sagittal, and coronal planes. 3-D MIPS images are created and assessed. IV contrast was administered without complication. All measurements were calculated based on NASCET criteria. A dose lowering technique was utilized adhering to the principles of ALARA. FINDINGS: CTA: Mild mixed plaquing of the aortic arch and origins of the proximal great vessels. The right subclavian artery is patent. Moderate mixed plaquing at the origin of the left subclavian artery causes less than 50% narrowing as seen on image 194 series 8. Moderate atheromatous plaquing of the mid left common carotid artery also causes less than 50% narrowing. Extensive mixed plaquing of the left carotid bald results in complete occlusion of the left internal carotid artery which extends through the cavernous and clinoid portions as discussed on comparison MRA. Prior right internal carotid endarterectomy. The previously described areas of signal loss involving the right common and internal carotid artery likely secondary to artifact from the graft material. No high-grade narrowing or occlusion is seen involving the patent right common and internal carotid arteries. There is 60% narrowing involving the origin of the left vertebral artery secondary to mixed plaquing is seen on image 185 series 8. The left vertebral artery is dominant. Bilateral vertebral arteries are patent. Basilar artery and imaged bilateral posterior cerebral arteries are patent and within normal limits. CT NECK: Lung apices appear clear. Thyroid is homogeneous. No pathologically enlarged lymph nodes identified. Bones appear intact. Mild inferior frontal sinus disease. Discogenic degenerative changes and facet arthropathy of the cervical spine are noted, most prominently at C4-C5, C5-C6 and C6-C7. IMPRESSION: 1. 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 2. Prior right internal carotid endarterectomy. The previously described areas of signal loss involving the right common and internal carotid arteries were likely secondary to artifact from the graft material. No high-grade narrowing or occlusion is seen involving the patent right common or internal carotid arteries. 3. 60% stenosis involves the origin of the left vertebral artery secondary to mixed atheromatous and atherosclerotic plaquing. The left vertebral artery is dominant. 4. Less than 50% narrowing involves the origin of the left subclavian artery. The above report was generated using voice recognition software. It may contain grammatical, syntax or spelling errors. Electronically signed by: Aries Morales M.D. 07/25/2017 10:40 PM Dictated Date/Time: 07/25/2017 10:30 PM
--- NOTE | 2017-07-25 23:12 | DIAGNOSTIC IMAGING REPORT ---
CHEST CT WITH CONTRAST CT DOSE: 2488.34 mGy.cm HISTORY: Enhancing brain lesion seen on MRI of the brain. Metastatic survey. brain mass; primary search TECHNIQUE: Multiaxial CT images of the chest, abdomen and pelvis were performed following the intravenous administration of contrast. A dose lowering technique was utilized adhering to the principles of ALARA. COMPARISON: CTA chest, abdomen and pelvis 07/24/2017, CTA chest, abdomen and pelvis 10/09/2015. FINDINGS: CT CHEST: No thyroid nodule or pathologic adenopathy. Cardiac silhouette is upper limits of normal. Coronary arterial calcifications noted in addition to calcified papillary muscles suggesting remote infarction. Moderate atherosclerosis of the thoracic aorta without aneurysm or dissection identified. Opacified pulmonary arterial tree is unremarkable without focal filling defects identified. No pneumothorax, pleural effusion, focal airspace consolidation. There is mild bronchial wall thickening of the lung bases suggesting bronchitis. No suspicious masses. Stable 3 mm subpleural nodule in the right middle lobe, image 136 series 9 which is likely benign. Central airways are patent. Soft tissues of the chest are unremarkable. Bones appear intact. No suspicious lytic or blastic bony lesions. Mild global endplate spurring of the spine. Old healed right-sided fractures. CT ABDOMEN/PELVIS: Fatty infiltration of the liver. Gallbladder is partially contracted. No focal hepatic mass lesions. The spleen, and pancreas are unremarkable. Attenuation of the adrenal glands suggests prior hemorrhage. Low attenuating lesion of the interpolar left kidney measuring 6 mm suggests cyst. No renal calculi or hydronephrosis. Ureters are unremarkable. Urinary bladder wall thickening is again seen with focus of air within the nondependent urinary bladder lumen. Pelvic structures are suboptimally visualized secondary to streak artifact from bilateral hip arthroplasties. Moderate atherosclerosis of the aorta with mild infrarenal ectasia measuring 2.6 cm. No aneurysm. No bulky adenopathy identified. No bowel obstruction identified. There is persistent mild pericolonic fat stranding of the transverse colon. Appendix appears normal. Soft tissues are unremarkable. There are no suspicious lytic or blastic bony lesions identified. Prior vertebral plasty at L2 with remote retropulsion at this level. IMPRESSION: 1. Persistent mild pericolonic stranding about the transverse colon suggests mild colitis. 2. No pathologic adenopathy. 3. Persistent mild wall thickening of the urinary bladder suspicious for cystitis. Correlate with urinalysis. 4. Additional findings as above. Electronically signed by: Aries Morales M.D. 07/25/2017 11:11 PM Dictated Date/Time: 07/25/2017 10:53 PM
[2017-07-26 00:06] VITALS: BP 101/64; PULSE 57; TEMP 37; O2SAT 95
[2017-07-26 02:35] VITALS: BP 99/59; PULSE 51; TEMP 36.5; O2SAT 96
[2017-07-26] MEDS: INSULIN ASPART 100 UNITS/ML 3 ML PEN SC SCH ×4 (04:00→12:52)
[2017-07-26] MEDS ORDERED: SODIUM CHLORIDE 0.9% 1000ML 1,000 ML IV ONE (05:15)
[2017-07-26 07:22] LABS: BASO % 0.5 %; BASO ABS # 0.05 K/uL (0-0.2); COMPLETE YES; EOS % 0.7 %; HEMATOCRIT 35.3 % (42-52); IG% 0.3 %; LYMPH % 36.7 %; LYMPH ABS # 3.34 K/uL (1.2-3.4); MEAN CELL VOLUME 93.4 fL (80-100); MEAN CORPUSCULAR HEMOGLOBIN 29.4 pg (25-34); MEAN CORPUSCULAR HGB CONC 31.4 g/dl (32-36); MEAN PLATELET VOLUME 8.9 fL (7.4-10.4); MONO % 5.9 %; NEUT % 55.9 %; PLATELET COUNT 273 K/uL (130-400); RED BLOOD COUNT 3.78 M/uL (4.7-6.1); WHITE BLOOD COUNT 9.11 K/uL (4.8-10.8)
[2017-07-26 07:55] VITALS: BP 116/69; PULSE 51; TEMP 36.6; O2SAT 96
[2017-07-26 07:55] LABS: BUN/CREATININE RATIO 19.1 (10-20); CALCIUM 8.7 mg/dl (8.5-10.1); CREATININE 1.09 mg/dl (0.60-1.40); POTASSIUM 4.6 mmol/L (3.5-5.1)
[2017-07-26] MEDS: CHOLECALCIFEROL 1000 INTER.UNIT TAB PO SCH (08:06)
[2017-07-26] MEDS: FoLIC ACID TAB 400 MCG TAB PO SCH (08:06)
[2017-07-26] MEDS: DULOXETINE HCL 60 MG CAP PO SCH (08:06)
[2017-07-26] MEDS: CLOPIDOGREL BISULFATE 75 MG TAB PO SCH (08:06)
[2017-07-26] MEDS: ASPIRIN 81 MG CHEW PO SCH (08:07)
[2017-07-26] MEDS: THIAMINE HCL 100 MG TAB PO SCH (08:07)
[2017-07-26] MEDS: AMOXICILLIN/CLAVULANATE TAB 875 MG TAB PO SCH (08:08)
[2017-07-26] MEDS: TAMSULOSIN HCL 0.4 MG CAP PO SCH (08:08)
[2017-07-26] MEDS ORDERED: ALENDRONATE SODIUM 70 MG TAB PO SCH (09:00)
[2017-07-26] MEDS ORDERED: METOPROLOL TARTRATE 25 MG TAB PO SCH (09:00)
--- NOTE | 2017-07-26 10:45 | Progress Note ---
Medicine Progress Note Date & Time of Visit: Jul 26, 2017 at 10:22. Subjective patient seen resting in bed, comfortable BP noted to be on the lower side yesterday, BP meds held this morning on exam, patient is resting in bed, comfortable states he feels fine overall denies abdominal pain, diarrhea states R sided weakness has improved now, back to baseline denies chest pain, dyspnea, palpitations, dizziness ambulates to the bathroom with no problems no other symptoms Objective Last 8 Hrs Date Time Temp Pulse Resp B/P (MAP) Pulse Ox O2 Delivery O2 Flow Rate FiO2 07/26/17 07:55 36.6 51 18 116/69 (85) 96 07/26/17 04:18 Room Air 07/26/17 02:35 36.5 51 16 99/59 (72) 96 Room Air Physical Exam: General- oriented x 3, not in distress, speaks in sentences with no effort Eyes- EOMI, anicteric Neck- supple, no JVD Lungs- clear breath sounds bilaterally Heart- regular rhythm; no murmur, normal rate Abdomen- normal bowel sounds, soft, nontender Extremities- no pretibial edema, no calf tenderness Neuro- alert, oriented x 3; no gross focal deficits Skin- warm & dry Laboratory Results: Last 24 Hours Test 07/25/17 11:20 07/25/17 16:46 07/25/17 20:34 07/26/17 00:10 Bedside Glucose 222 mg/dl 111 mg/dl 122 mg/dl 86 mg/dl Test 07/26/17 04:18 07/26/17 06:30 07/26/17 07:01 Bedside Glucose 93 mg/dl 96 mg/dl White Blood Count 9.11 K/uL Red Blood Count 3.78 M/uL Hemoglobin 11.1 g/dL Hematocrit 35.3 % Mean Corpuscular Volume 93.4 fL Mean Corpuscular Hemoglobin 29.4 pg Mean Corpuscular Hemoglobin Concent 31.4 g/dl Platelet Count 273 K/uL Mean Platelet Volume 8.9 fL Neutrophils (%) (Auto) 55.9 % Lymphocytes (%) (Auto) 36.7 % Monocytes (%) (Auto) 5.9 % Eosinophils (%) (Auto) 0.7 % Basophils (%) (Auto) 0.5 % Neutrophils # (Auto) 5.09 K/uL Lymphocytes # (Auto) 3.34 K/uL Monocytes # (Auto) 0.54 K/uL Eosinophils # (Auto) 0.06 K/uL Basophils # (Auto) 0.05 K/uL RDW Standard Deviation 46.1 fL RDW Coefficient of Variation 13.5 % Immature Granulocyte % (Auto) 0.3 % Immature Granulocyte # (Auto) 0.03 K/uL Sodium Level 139 mmol/L Potassium Level 4.6 mmol/L Chloride Level 107 mmol/L Carbon Dioxide Level 26 mmol/L Anion Gap 6.0 mmol/L Blood Urea Nitrogen 21 mg/dl Creatinine 1.09 mg/dl Est Creatinine Clear Calc Drug Dose 84.0 ml/min Estimated GFR () 83.9 Estimated GFR (Non- 72.4 BUN/Creatinine Ratio 19.1 Random Glucose 91 mg/dl Calcium Level 8.7 mg/dl Assessment & Plan 61 yo M with h/o cerebrovascular disease and CAD s/p cardiac catheterization with complication two weeks ago presents with acute chest pain, diarrhea and fatigue/malaise 1. CHEST PAIN, HISTORY OF CAD, RCA DISSECTION - Chest CT: no aortic dissection - cardiac markers negative, EKG no signs of ischemia continued on ASA, Plavix - systolic BP in the low 100 range HOLD ISMN, Metoprolol, Lisinopril Cardiology consulted, cleared for transfer to [facility] for further eval and management 2. L thalamic Lesion: Subacute stroke vs Mass History of L MCA stroke. - Pt reports a worsening of old deficits including aphasia, RUQ and RLE weakness and RUE numbness since his cardiac cath two weeks ago. - MRI Brain: IMPRESSION: 1. Focal area of signal abnormality within the left thalamus as described on comparison studies correlates with a heterogeneous ring-enhancing lesion with some mild central enhancement measuring up to 1.9 x 1.1 x 1.4 cm. This causes mild expansion with associated vasogenic edema within the left thalamus. Differential considerations would include primary glial neoplasm or metastasis. No additional masses or abnormal enhancement identified. 2. Remote left frontal infarction with associated gliosis and encephalomalacia. 3. Unchanged subcentimeter colloid cyst seen near the foramen of Malena. MRA Head: IMPRESSION: 1. Occlusion of the left internal carotid artery again seen with patent right ICA and reconstitution of flow through the [place] into the left MCA and MASON branches. 2. Decreased flow of the distal middle cerebral artery branches within the distribution of the remote left frontal infarction without discrete vessel occlusion or high-grade narrowing identified. 3. Otherwise unremarkable MRA of the head. CT Angio neck: IMPRESSION: 1. 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 2. Prior right internal carotid endarterectomy. The previously described areas of signal loss involving the right common and internal carotid arteries were likely secondary to artifact from the graft material. No high-grade narrowing or occlusion is seen involving the patent right common or internal carotid arteries. 3. 60% stenosis involves the origin of the left vertebral artery secondary to mixed atheromatous and atherosclerotic plaquing. The left vertebral artery is dominant. 4. Less than 50% narrowing involves the origin of the left subclavian artery. -- patient evaluated by Dr. Strong- Neurologist recommend transfer to [facility] for evaluation of possible Left Thalamus Mass -- discussed at length with Dr. Ramirez and Dr. Henderson - Hospitalist and Neurosurgeon in [facility] they kindly accepted the patient for further evaluation and management of the Left Thalamus Lesion- Subacute Stroke vs. Mass in the setting of L ICA stenosis, Low normal BP with L ICA stenosis -- already on ASA, Plavix 3. Colitis -- nonspecific in setting of acute diarrhea No recent abx use. -- diarrhea resolved stool cultures: pending - changed from Zosyn to Augmentin PO (allergic to Cipro) 4. Bacteriuria-likely recent instrumentation with Morgan while recently hospitalized - no urinary symptoms - ff up urine culture: (+) Staph species , sens pending - on Augmentin - afebrile, no dysuria 5. DMI -uncontrolled as outpatient so Prandin was recently added in last two weeks. - ISS and Lantus Pharm Glycemic Management 6. HTN - BP on the low side, systolic 100s - HOLD Norvasc 5mg, Metoprolol 150mg PO BID, and Lisinopril 20mg PO daily. monitor 7. Chronic OA pain-Cymbalta 8. Left Internal Carotid stenosis-s/p stent placement RCA in the past. - Carotid US: (+) complete occlusion of L Carotid Artery - on ASA, Plavix, Statin DVT proph-Lovenox Dispo transfer to [facility] Current Inpatient Medications: Current Inpatient Medications Medications (Trade) Dose Ordered Sig/Andi Route Start Time Stop Time Status Last Admin Dose Admin Acetaminophen (Tylenol Tab) 650 mg Q4H PRN PO 07/24/17 20:00 08/23/17 19:59 Ondansetron HCl (Zofran Inj) 4 mg Q6H PRN IV 07/24/17 20:00 08/23/17 19:59 Nitroglycerin (Nitrostat Tab) 0.4 mg UD PRN SL 07/24/17 20:00 08/23/17 19:59 Morphine Sulfate (MoRPHine SULFATE INJ) 2 mg Q30M PRN IV 07/24/17 20:00 08/07/17 19:59 Polyethylene (Miralax Powder Packet) 17 gm DAILY PRN PO 07/24/17 20:00 08/23/17 19:59 Insulin Aspart (novoLOG ASPART) SLIDING SCALE If C... ACHS SC 07/24/17 21:00 08/23/17 20:59 07/26/17 08:10 8 UNITS Glucose (Glucose 40% Gel) 15-30 GRAMS 15 GRAMS... UD PRN PO 07/24/17 20:15 08/23/17 20:14 Glucose (Glucose Chew Tab) 4-8 Tablets 4 Tabl... UD PRN PO 07/24/17 20:15 08/23/17 20:14 Dextrose (Dextrose 50% 50ML Syringe) 25-50ML OF 50% DW IV FOR... UD PRN IV 07/24/17 20:15 08/23/17 20:14 Glucagon (Glucagon Inj) 1 mg UD PRN SQ 07/24/17 20:15 08/23/17 20:14 Miscellaneous Information (Consult Glycemic Management Pharmacy) 1 ea UD PRN N/A 07/24/17 20:58 08/23/17 20:57 Miscellaneous Information (Pharmacist Discharge Med Rec Consult) 1 ea UD PRN N/A 07/24/17 20:15 08/23/17 20:14 Albuterol (Ventolin Hfa Inhaler) 2 puffs QID PRN INH 07/24/17 21:00 08/23/17 20:59 Alendronate Sodium (Fosamax Tab) 70 mg Moore@0900 PO 07/26/17 09:00 08/25/17 08:59 07/26/17 08:07 70 MG Amlodipine Besylate (Norvasc Tab) 5 mg QAM PO 07/25/17 09:00 08/24/17 08:59 Future Hold 07/25/17 09:30 5 MG Aspirin (Aspirin Chew) 81 mg QAM PO 07/25/17 09:00 08/24/17 08:59 07/26/17 08:07 81 MG Cholecalciferol (Vitamin D Tab) 1,000 inter.unit QAM PO 07/25/17 09:00 08/24/17 08:59 07/26/17 08:06 1,000 INTER.UNIT Clopidogrel Bisulfate (plAVix TAB) 75 mg QAM PO 07/25/17 09:00 08/24/17 08:59 07/26/17 08:06 75 MG Cyclobenzaprine HCl (Flexeril Tab) 10 mg DAILY PRN PO 07/24/17 21:00 08/23/17 20:59 Duloxetine HCl (Cymbalta Cap) 60 mg QAM PO 07/25/17 09:00 08/24/17 08:59 07/26/17 08:06 60 MG Lisinopril (Zestril Tab) 20 mg HS PO 07/24/17 21:00 08/23/17 20:59 Future Hold 07/25/17 20:19 20 MG Metoprolol Tartrate (Lopressor Tab) 150 mg BID PO 07/24/17 21:00 08/23/17 20:59 Future Hold 07/25/17 20:21 150 MG Oxycodone HCl (Roxicodone Immediate Rel Tab) 5 mg Q12 PRN PO 07/24/17 21:00 08/07/17 20:59 Tamsulosin HCl (Flomax Cap) 0.4 mg QAM PO 07/25/17 09:00 08/24/17 08:59 07/26/17 08:08 0.4 MG Thiamine HCl (Vitamin B-1 Tab) 100 mg QAM PO 07/25/17 09:00 08/24/17 08:59 07/26/17 08:07 100 MG Tramadol HCl (Ultram Tab) 50 mg Q6H PRN PO 07/24/17 21:00 08/23/17 20:59 Isosorbide Mononitrate (Imdur Ext Rel Tab) 60 mg QAM PO 07/25/17 09:00 08/24/17 08:59 Future Hold 07/25/17 09:28 60 MG Folic Acid (Folvite Tab) 800 mcg QAM PO 07/25/17 09:00 08/24/17 08:59 07/26/17 08:06 800 MCG Amoxicillin/ Clavulanate Potassium (Augmentin Tab) 875 mg BIDM PO 07/25/17 16:45 08/04/17 16:44 07/26/17 08:08 875 MG Metoprolol Tartrate (Lopressor Tab) 12.5 mg BID PO 07/26/17 09:00 08/25/17 08:59 Ioversol (Optiray 320) 116 ml UD PRN IV 07/25/17 22:30 07/29/17 22:29
[2017-07-26] MEDS ORDERED: AMOX1TAB43 PO (10:47)
--- NOTE | 2017-07-26 10:50 | Discharge Instructions ---
Discharge Instructions Date of Service Jul 26, 2017. Admission Reason for Admission: Stroke Discharge Discharge Diagnosis / Problem: LEFT THALAMUS LESION- STROKE VS. MASS Discharge Goals Goal(s): Diagnostic testing, Therapeutic intervention Activity Recommendations Activity Level: Assistance Required Therapies: Physical Therapy, Occupational Therapy, Speech Therapy . Additional Information Patient informed of condition: Yes Advance Directives: No (UNKNOWN) DNR: No (PATIENT IS FULL CODE) Level of Care: Other ([facility]) Communicable Disease: No Prognosis: Other (GUARDED) Instructions / Follow-Up Instructions / Follow-Up PLEASE REFER TO [facility]OS[facility] DISCHARGE SUMMARY FOR FURTHER DETAILS. Current Hospital Diet Patient's current hospital diet: AHA Diet (Heart Healthy), Diabetes Type 2 Diet Discharge Diet Recommended Diet: AHA Diet (Heart Healthy), Diabetes Type 2 Diet Procedures Procedures Performed: BRAIN MRI, HEAD AND NECK MRA, CT ANGIO NECK, CT ABDOMEN AND PELVIS Pending Studies Studies pending at discharge: yes List of pending studies: FURTHER EVALUATION AND MANAGEMENT PER [facility] Physician Orders On Transfer Special Precautions: PLEASE REFER TO [facility]ANYING HOSPITAL DISCHARGE SUMMARY FOR FURTHER DETAILS. Laboratory Results Hemoglobin A1c Test 07/25/17 05:33 Range/Units Estimated Average Glucose 146 mg/dl Hemoglobin A1c 6.7 H 4.5-5.6 % Lipid Panel Test 07/25/17 05:33 Range/Units Triglycerides Level 120 0-150 mg/dl Cholesterol Level 163 0-200 mg/dl HDL Cholesterol 42 mg/dl Cholesterol/HDL Ratio 3.9 LDL Cholesterol, Calculated 97 mg/dl Medical Emergencies . Who to Call and When: Medical Emergencies: If at any time you feel your situation is an emergency, please call 911 immediately. . Non-Emergent Contact Non-Emergency issues call your: Primary Care Provider Call Non-Emergent contact if: you have a fever, you have any medication questions . . "Provider Documentation" section prepared by Josh Tenorio. . Core Measure Problem Core Measures: Stroke AMI Core Measures Reason no ASA as I/P: Treatment provided - N/A Stroke Core Measures Reason no t-PA for Stroke: Treatment not indicated Reason no antithrom by day 2: Treatment provided - N/A Reason no antithrom at D/C: Treatment provided - N/A Reason no statin at D/C: Treatment provided - N/A Reason no anticoag w/a fib: Treatment not indicated
--- NOTE | 2017-07-26 11:01 | Discharge Summary ---
Discharge Summary Date of Service Jul 26, 2017. Discharge Summary Admission Date: Jul 24, 2017 at 20:06 Discharge Date: Jul 26, 2017 Discharge Disposition: Acute care facility Principal Diagnosis: L thalamic Lesion: Subacute stroke vs Mass History of L MCA stroke. Secondary Diagnoses/Problems: Please refer to hospital course below. Procedures: CHEST, ABDOMEN, AND PELVIS CTA for AORTIC DISSECTION CT DOSE: 2494.13 mGy.cm HISTORY: Atypical chest pain and generalized abdominal pain TECHNIQUE: Multiaxial CT images of the chest were performed both before and after the intravenous administration of contrast to evaluate the aorta. Maximal intensity projection images were also obtained. A dose lowering technique was utilized adhering to the principles of ALARA. COMPARISON STUDY: Chest abdomen pelvis CTA 10/09/2015. FINDINGS: Noncontrast imaging through the chest shows no evidence for an intramural hematoma within the thoracic aorta. Mild atherosclerotic plaque within the aorta and coronary arteries. The aorta is normal in course and caliber with no evidence for dissection. Mild narrowing origins of the celiac and superior mesenteric arteries. The heart is normal in size. The pulmonary arteries appear patent. No pneumothorax. No pleural effusions. No focal lung consolidations to suggest pneumonia. Stable 3 mm subpleural nodule within the right middle lobe on image 157. This is likely benign. The lungs are otherwise clear. Old, healed right-sided rib fractures. No mediastinal or hilar lymphadenopathy. Bilateral total hip arthroplasties. L2 vertebroplasty. Hepatic steatosis. The liver, left adrenal gland, pancreas, and kidneys are unremarkable. No hydronephrosis. No retroperitoneal lymphadenopathy. Normal gallbladder. Mild bladder wall thickening. This contains a punctate focus of gas. Multiple colonic diverticula. No evidence for bowel obstruction. Normal appendix. Tiny fat-containing umbilical hernia. Minimal pericolonic fat stranding surrounding the mid to distal transverse colon. This is consistent with a nonspecific colitis. Moderate stenosis at the origin of the inferior mesenteric artery. However, the remaining portions of the inferior mesenteric artery are widely patent. IMPRESSION: 1. No evidence for an aortic dissection. 2. Minimal pericolonic fat stranding involving the mid to distal transverse colon. This is consistent with a nonspecific colitis and could be due to an infectious, inflammatory, or ischemic process. 3. Mild bladder wall thickening which could be chronic or due to a cystitis. Recommend correlation with urinalysis. 4. Additional findings are described above. Electronically signed by: Jonathan Correa M.D. 07/24/2017 6:05 PM Dictated Date/Time: 07/24/2017 5:47 PM CHEST, ABDOMEN, AND PELVIS CTA for AORTIC DISSECTION CT DOSE: 2494.13 mGy.cm HISTORY: Atypical chest pain and generalized abdominal pain TECHNIQUE: Multiaxial CT images of the chest were performed both before and after the intravenous administration of contrast to evaluate the aorta. Maximal intensity projection images were also obtained. A dose lowering technique was utilized adhering to the principles of ALARA. COMPARISON STUDY: Chest abdomen pelvis CTA 10/09/2015. FINDINGS: Noncontrast imaging through the chest shows no evidence for an intramural hematoma within the thoracic aorta. Mild atherosclerotic plaque within the aorta and coronary arteries. The aorta is normal in course and caliber with no evidence for dissection. Mild narrowing origins of the celiac and superior mesenteric arteries. The heart is normal in size. The pulmonary arteries appear patent. No pneumothorax. No pleural effusions. No focal lung consolidations to suggest pneumonia. Stable 3 mm subpleural nodule within the right middle lobe on image 157. This is likely benign. The lungs are otherwise clear. Old, healed right-sided rib fractures. No mediastinal or hilar lymphadenopathy. Bilateral total hip arthroplasties. L2 vertebroplasty. Hepatic steatosis. The liver, left adrenal gland, pancreas, and kidneys are unremarkable. No hydronephrosis. No retroperitoneal lymphadenopathy. Normal gallbladder. Mild bladder wall thickening. This contains a punctate focus of gas. Multiple colonic diverticula. No evidence for bowel obstruction. Normal appendix. Tiny fat-containing umbilical hernia. Minimal pericolonic fat stranding surrounding the mid to distal transverse colon. This is consistent with a nonspecific colitis. Moderate stenosis at the origin of the inferior mesenteric artery. However, the remaining portions of the inferior mesenteric artery are widely patent. IMPRESSION: 1. No evidence for an aortic dissection. 2. Minimal pericolonic fat stranding involving the mid to distal transverse colon. This is consistent with a nonspecific colitis and could be due to an infectious, inflammatory, or ischemic process. 3. Mild bladder wall thickening which could be chronic or due to a cystitis. Recommend correlation with urinalysis. 4. Additional findings are described above. Electronically signed by: Jonathan Correa M.D. 07/24/2017 6:05 PM MRI OF THE BRAIN WITHOUT IV CONTRAST CLINICAL HISTORY: Change in mental status. COMPARISON STUDY: CT scans of the brain dated 08/19/2016 and 07/24/2017. TECHNIQUE: MRI of the brain was performed utilizing various T1 and T2-weighted sequences in the axial, sagittal, and coronal planes. IV contrast was not administered for this examination. FINDINGS: Brain parenchyma: Left frontal encephalomalacia is consistent with a remote infarct. There are age-related involutional changes noting mild subcortical and periventricular microangiopathic disease. There is a 1.9 cm T2 hyperintense and T1 hypointense focus centered in the left thalamus on axial image #13. There is no restricted diffusion identified at this site (T2 shine-through is noted). The thalamus appears somewhat expanded, and the appearance is atypical for lacunar infarct. There is no hemorrhage or mass effect. There is no restricted diffusion to indicate acute ischemia. Bridges-white matter differentiation is preserved. No extra-axial fluid collection is seen. The cerebellar tonsils are normal in configuration. 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 Ventricles, sulci, and cisterns: Prominent secondary to involutional change. Pituitary and sella: Unremarkable. Intracranial vasculature: Normal flow voids are maintained at the skull base. Orbits: The bony orbits are grossly intact. Orbital contents are normal in appearance. Sinuses and mastoids: Clear. Calvarium: Unremarkable. Cervical cord: Partially visualized cervical spinal cord is normal in morphology and signal intensity. IMPRESSION: 1. There is a 1.9 cm T2 hyperintense and T1 hypointense focus centered in the left thalamus, which corresponds to the abnormality seen by CT. There is no corresponding restricted diffusion, and although this could represent ischemic change the appearance is atypical. Correlation with a contrast-enhanced examination is suggested for further assessment and exclude underlying mass lesion. 2. 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 3. A remote left frontal infarct is unchanged. No restricted diffusion is seen to indicate acute ischemia. There is no hemorrhage or mass effect. Electronically signed by: Hernandez Sanches M.D. 07/24/2017 10:37 PM MRA NECK COMBO CLINICAL HISTORY: 61 years-old Male with L thal infarct, known L carotid occlusion recent coronary dissec. Complete occlusion of left ICA. Follow-up study. COMPARISON STUDY: MRA of the head of same day, carotid Doppler same day.. TECHNIQUE: Axial 3-D [id number] MR angiography of the neck is performed. Subsequently, following the IV administration of 10.5 cc of Magnevist coronal MR angiogram of the neck was performed to corroborate the findings. 3-D reformats are created and assessed. All measurements were calculated based on NASCET criteria. 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 Study is mildly motion degraded. The bilateral common carotid arteries are patent. There is complete occlusion of the proximal left internal carotid artery as seen on image 69 series 13. There is a focal 0.7 cm segment of the mid to distal common carotid artery which demonstrates loss of signal as seen on image 88 series 13 and image 37 series 1401 with reconstitution of flow seen distally to this area. Additionally, there is loss of signal at the origin of the right internal carotid artery as seen on image 61 series 13 with reconstitution of flow seen distal to this area. Remaining right internal carotid artery is patent. The left vertebral artery is dominant. Bilateral vertebral arteries are patent. The majority of the right vertebral artery appears to terminate into the ipsilateral PICA. IMPRESSION: 1. Mildly motion degraded exam. 2. Complete occlusion of the left internal carotid artery which begins near its origin. 3. Focal area of high-grade narrowing or occlusion involving the mid to distal right common carotid artery as above with reconstitution of flow distally. 4. Focal high-grade stenosis or occlusion of the proximal right internal carotid artery with reconstitution of flow as above. The above report was generated using voice recognition software. It may contain grammatical, syntax or spelling errors. Electronically signed by: Aries Morales M.D. 07/25/2017 6:54 PM MRA HEAD WITHOUT CONTRAST HISTORY: 61 years-old Male L thal stroke, prior L mca, known L carotid occ follow-up study in a patient with enhancing lesion of the left thalamus. Remote infarction of the left frontal lobe. COMPARISON: MRI brain of same day, carotid Doppler of same day TECHNIQUE: MRA of the head was obtained without contrast with MIP reformats. FINDINGS: There is no signal within the left internal carotid artery compatible with findings seen on carotid Doppler of same day which showed complete left ICA occlusion. The right internal carotid artery, right MCA and MASON are patent. There is reconstitution of flow through the [place] of [place] into the left anterior cerebral and middle cerebral arteries. There is decreased peripheral MCA distribution flow within the region of the remote left frontal infarction without focal occlusion or high-grade narrowing identified. The left vertebral artery is dominant. Bilateral vertebral arteries are patent. Basilar and posterior cerebral arteries also appear patent. No aneurysm or dissection identified. IMPRESSION: 1. Occlusion of the left internal carotid artery again seen with patent right ICA and reconstitution of flow through the [place] into the left MCA and MASON branches. 2. Decreased flow of the distal middle cerebral artery branches within the distribution of the remote left frontal infarction without discrete vessel occlusion or high-grade narrowing identified. 3. Otherwise unremarkable MRA of the head. The above report was generated using voice recognition software. It may contain grammatical, syntax or spelling errors. Electronically signed by: Aries Morales M.D. 07/25/2017 6:42 PM BRAIN COMBO HISTORY: 61 years-old Male L thal lesion atypical for stroke, r/o tumor follow-up study to assess left thalamic lesion. COMPARISON: MRI of the brain 07/24/2017, head CT 07/24/2017 TECHNIQUE: Multiplanar multisequence MRI of the brain was obtained both with and without the use of 10.5 mL Gadavist FINDINGS: No restricted diffusion to suggest acute infarction. Remote left frontal infarction with encephalomalacia and gliosis is noted. There is mild brain atrophy. There is an ovoid T2 hyperintense and T1 hypointense peripherally enhancing lesion of the left thalamus which also demonstrates some mild central enhancement, 1.9 x 1.1 x 1.4 cm with moderate amount of associated edema seen on the coronal T2 FLAIR sequence, image 14 series 7. No additional abnormal intra-axial or extra-axial enhancement identified. Colloid cyst near the foramen of [place] redemonstrated, 8 x 6 mm in size. There is no acute intracranial hemorrhage, midline shift, abnormal extra-axial collections or hydrocephalus. Mastoid air cells are clear. Paranasal sinuses are also generally clear. Orbits are symmetric. Scalp, calvarium and soft tissues are unremarkable. IMPRESSION: 1. Focal area of signal abnormality within the left thalamus as described on comparison studies correlates with a heterogeneous ring-enhancing lesion with some mild central enhancement measuring up to 1.9 x 1.1 x 1.4 cm. This causes mild expansion with associated vasogenic edema within the left thalamus. Differential considerations would include primary glial neoplasm or metastasis. No additional masses or abnormal enhancement identified. 2. Remote left frontal infarction with associated gliosis and encephalomalacia. 3. Unchanged subcentimeter colloid cyst seen near the foramen of [place]. The above report was generated using voice recognition software. It may contain grammatical, syntax or spelling errors. Electronically signed by: Aries Morales M.D. 07/25/2017 6:[address] WITH CONTRAST CT DOSE: 2488.34 mGy.cm HISTORY: Enhancing brain lesion seen on MRI of the brain. Metastatic survey. brain mass; primary search TECHNIQUE: Multiaxial CT images of the chest, abdomen and pelvis were performed following the intravenous administration of contrast. A dose lowering technique was utilized adhering to the principles of ALARA. COMPARISON: CTA chest, abdomen and pelvis 07/24/2017, CTA chest, abdomen and pelvis 10/09/2015. FINDINGS: CT CHEST: No thyroid nodule or pathologic adenopathy. Cardiac silhouette is upper limits of normal. Coronary arterial calcifications noted in addition to calcified papillary muscles suggesting remote infarction. Moderate atherosclerosis of the thoracic aorta without aneurysm or dissection identified. Opacified pulmonary arterial tree is unremarkable without focal filling defects identified. No pneumothorax, pleural effusion, focal airspace consolidation. There is mild bronchial wall thickening of the lung bases suggesting bronchitis. No suspicious masses. Stable 3 mm subpleural nodule in the right middle lobe, image 136 series 9 which is likely benign. Central airways are patent. Soft tissues of the chest are unremarkable. Bones appear intact. No suspicious lytic or blastic bony lesions. Mild global endplate spurring of the spine. Old healed right-sided fractures. CT ABDOMEN/PELVIS: Fatty infiltration of the liver. Gallbladder is partially contracted. No focal hepatic mass lesions. The spleen, and pancreas are unremarkable. Attenuation of the adrenal glands suggests prior hemorrhage. Low attenuating lesion of the interpolar left kidney measuring 6 mm suggests cyst. No renal calculi or hydronephrosis. Ureters are unremarkable. Urinary bladder wall thickening is again seen with focus of air within the nondependent urinary bladder lumen. Pelvic structures are suboptimally visualized secondary to streak artifact from bilateral hip arthroplasties. Moderate atherosclerosis of the aorta with mild infrarenal ectasia measuring 2.6 cm. No aneurysm. No bulky adenopathy identified. No bowel obstruction identified. There is persistent mild pericolonic fat stranding of the transverse colon. Appendix appears normal. Soft tissues are unremarkable. There are no suspicious lytic or blastic bony lesions identified. Prior vertebral plasty at L2 with remote retropulsion at this level. IMPRESSION: 1. Persistent mild pericolonic stranding about the transverse colon suggests mild colitis. 2. No pathologic adenopathy. 3. Persistent mild wall thickening of the urinary bladder suspicious for cystitis. Correlate with urinalysis. 4. Additional findings as above. NECK ANGIO WITH CONTRAST CLINICAL HISTORY: 61 years-old Male presents with left thalamic lesion and complete occlusion of the left ICA COMPARISON STUDY: MRA of the neck of same day, MRI brain of same day TECHNIQUE: Following the IV administration of 116 of Optiray 320, CT angiogram of the neck was performed from the aortic arch to the skull base. Images are reviewed in the axial, sagittal, and coronal planes. 3-D MIPS images are created and assessed. IV contrast was administered without complication. All measurements were calculated based on NASCET criteria. A dose lowering technique was utilized adhering to the principles of ALARA. FINDINGS: CTA: Mild mixed plaquing of the aortic arch and origins of the proximal great vessels. The right subclavian artery is patent. Moderate mixed plaquing at the origin of the left subclavian artery causes less than 50% narrowing as seen on image 194 series 8. Moderate atheromatous plaquing of the mid left common carotid artery also causes less than 50% narrowing. Extensive mixed plaquing of the left carotid bald results in complete occlusion of the left internal carotid artery which extends through the cavernous and clinoid portions as discussed on comparison MRA. Prior right internal carotid endarterectomy. The previously described areas of signal loss involving the right common and internal carotid artery likely secondary to artifact from the graft material. No high-grade narrowing or occlusion is seen involving the patent right common and internal carotid arteries. There is 60% narrowing involving the origin of the left vertebral artery secondary to mixed plaquing is seen on image 185 series 8. The left vertebral artery is dominant. Bilateral vertebral arteries are patent. Basilar artery and imaged bilateral posterior cerebral arteries are patent and within normal limits. CT NECK: Lung apices appear clear. Thyroid is homogeneous. No pathologically enlarged lymph nodes identified. Bones appear intact. Mild inferior frontal sinus disease. Discogenic degenerative changes and facet arthropathy of the cervical spine are noted, most prominently at C4-C5, C5-C6 and C6-C7. IMPRESSION: 1. 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 2. Prior right internal carotid endarterectomy. The previously described areas of signal loss involving the right common and internal carotid arteries were likely secondary to artifact from the graft material. No high-grade narrowing or occlusion is seen involving the patent right common or internal carotid arteries. 3. 60% stenosis involves the origin of the left vertebral artery secondary to mixed atheromatous and atherosclerotic plaquing. The left vertebral artery is dominant. 4. Less than 50% narrowing involves the origin of the left subclavian artery. The above report was generated using voice recognition software. It may contain grammatical, syntax or spelling errors. Electronically signed by: Aries Morales M.D. 07/25/2017 10:[address] WITH CONTRAST CT DOSE: 2488.34 mGy.cm HISTORY: Enhancing brain lesion seen on MRI of the brain. Metastatic survey. brain mass; primary search TECHNIQUE: Multiaxial CT images of the chest, abdomen and pelvis were performed following the intravenous administration of contrast. A dose lowering technique was utilized adhering to the principles of ALARA. COMPARISON: CTA chest, abdomen and pelvis 07/24/2017, CTA chest, abdomen and pelvis 10/09/2015. FINDINGS: CT CHEST: No thyroid nodule or pathologic adenopathy. Cardiac silhouette is upper limits of normal. Coronary arterial calcifications noted in addition to calcified papillary muscles suggesting remote infarction. Moderate atherosclerosis of the thoracic aorta without aneurysm or dissection identified. Opacified pulmonary arterial tree is unremarkable without focal filling defects identified. No pneumothorax, pleural effusion, focal airspace consolidation. There is mild bronchial wall thickening of the lung bases suggesting bronchitis. No suspicious masses. Stable 3 mm subpleural nodule in the right middle lobe, image 136 series 9 which is likely benign. Central airways are patent. Soft tissues of the chest are unremarkable. Bones appear intact. No suspicious lytic or blastic bony lesions. Mild global endplate spurring of the spine. Old healed right-sided fractures. CT ABDOMEN/PELVIS: Fatty infiltration of the liver. Gallbladder is partially contracted. No focal hepatic mass lesions. The spleen, and pancreas are unremarkable. Attenuation of the adrenal glands suggests prior hemorrhage. Low attenuating lesion of the interpolar left kidney measuring 6 mm suggests cyst. No renal calculi or hydronephrosis. Ureters are unremarkable. Urinary bladder wall thickening is again seen with focus of air within the nondependent urinary bladder lumen. Pelvic structures are suboptimally visualized secondary to streak artifact from bilateral hip arthroplasties. Moderate atherosclerosis of the aorta with mild infrarenal ectasia measuring 2.6 cm. No aneurysm. No bulky adenopathy identified. No bowel obstruction identified. There is persistent mild pericolonic fat stranding of the transverse colon. Appendix appears normal. Soft tissues are unremarkable. There are no suspicious lytic or blastic bony lesions identified. Prior vertebral plasty at L2 with remote retropulsion at this level. IMPRESSION: 1. Persistent mild pericolonic stranding about the transverse colon suggests mild colitis. 2. No pathologic adenopathy. 3. Persistent mild wall thickening of the urinary bladder suspicious for cystitis. Correlate with urinalysis. 4. Additional findings as above. Interpretation Summary * Name: MANUEL GONZALES Study Date: 07/25/2017 02:40 PM BP: 108/64 mmHg * Patient Location: [facility]\\S\\[id number]\\[id number]\\[id number] HR: 63 * : 1955 (M/d/yyyy) Gender: Male Height: 69 in * Age: 61 yrs Ethnicity: CA Weight: 229 lb * Ordering Physician: Tomas Carr * Referring Physician: Self, Referred * Performed By: Kayleigh Healy RDCS * * Reason For Study: Chest pain * BSA: 2.2 m2 * The study was technically adequate. * Compared to prior study, there is no significant change. * -- Conclusions -- * Ejection Fraction = 60-65%. * There is mild concentric left ventricular hypertrophy. * No regional wall motion abnormalities noted. * There is no pericardial effusion. * No significant valvular disease. Consultations: Neurology, Cardiology Pending Studies/Follow-Up: Please refer to hospital course below. Medication Reconciliation New Medications: Amoxicillin & Pot Clavulanate (Amoxicillin/Clavulanate P) 1 Tab Tab 875 MG PO BIDM for 5 Days Continued Medications: Acetaminophen (Tylenol) 325 Mg Tab 650 MG PO PRN Albuterol Hfa (Ventolin Hfa) 200 Puffs/00051 Mcg Aers 2 PUFFS INH QID PRN for SOB/Wheezing Alendronate Sodium (Fosamax) 70 Mg Tab 70 MG PO every lewis, TAB Aspirin (Aspirin Chewable) 81 Mg Chew 81 MG PO QAM Cholecalciferol (Vitamin D3) 1,000 Unit Tab 1000 INTER.UNIT PO QAM Clopidogrel Bisulfate (Clopidogrel) 75 Mg Tab 75 MG PO QAM Cyclobenzaprine HCl (Cyclobenzaprine HCl) 10 Mg Tab 10 MG PO DAILY PRN for Muscle Spasms Duloxetine Hcl (Cymbalta) 60 Mg Cap 60 MG PO QAM Ipratropium-Albuterol (Duoneb) 3 Ml Nebu 1 TREATMENT INH Q4H PRN for Shortness of Breath, INHA Oxycodone HCl (Oxycodone HCl) 5 Mg Tab 5 MG PO Q12 PRN for Pain Tamsulosin Hcl (Flomax) 0.4 Mg Cap 0.4 MG PO QAM Thiamine Hcl (Vitamin B-1) 100 Mg Tab 100 MG PO QAM Tramadol (Ultram) 50 Mg Tab 50-100 MG PO Q6H PRN for Pain [Folic Acid] () 800 MCG PO QAM Discontinued Medications: Amlodipine (Norvasc) 5 Mg Tab 5 MG PO QAM Amoxicillin (Amoxil) 500 Mg Cap 500 MG PO UD 4 HOURS PRIOR TO DENTAL PROCEDURE Isosorbide Dinitrate (Isordil) 30 Mg Tab 60 MG PO QAM, TAB Lisinopril (Zestril) 20 Mg Tab 20 MG PO HS Metformin HCl (Metformin HCl) 500 Mg Tab 1000 MG PO BID Metoprolol Tartrate (Lopressor) (Lopressor) 100 Mg Tab 150 MG PO BID Nitroglycerin (Nitrostat) 0.4 Mg Tab 0.4 MG UT PRN Repaglinide (Prandin) 1 Mg Tab 1 MG PO AC 1 TABLET 3 TIMES A DAY 15 MIN BEFORE MEALS. 1 TABLET FOR SUGAR 150-200. 2 TABLETS IF SUGAR MORE MIXON 200 Admission Information HPI (per Admitting provider): The patient underwent a cardiac cath on 05/25/17 revealed 100% blockage in RCA with collateral from the LAD. 50% blockage was also noted in LAD. No intervention was performed at that time. He then underwent a cardiac MRI later that same day to assess viability which revealed normal biventricular size and systolic function but showed focal myocardial infarction in the inferolateral segments that involved part of the posteromedial papillary muscle. He was then scheduled for repeat cardiac catheterization on 07/10/[address] Alford for planned PCI of the RCA. During his cardiac catheterization on 07/10, the attempt at PCI was unsuccessful complicated by a perforation of the proximal RCA and concern for dissection of the aorta. He underwent a CTA of the chest which showed dissection of the right coronary cusp extending into the proximal right coronary artery, however, no dissection extended above the sinotubular junction. He was admitted to the cardiology service for further management and supervision and was placed on a nitro drip with the addition of PO hydralazine, metoprolol and amlodipine for 48 hours. He was discharged on PO BP meds with instructions to not let his BP rise above 140 systolic. He reports being discharged and not being able to walk out of the hospital. He reports feeling very ill for the past two weeks having significant fatigue. He reports some diarrhea began this morning all of a sudden and after his first episode of stool he began having substernal chest pain that he describes as a numbness. This was associated with diaphoresis and some shortness of breath. He reports having 3 more episodes of diarrhea after that with no blood in the stool. He denies nausea or vomiting. He reports his chest pain being intermittent with no clear provoking or palliative factors. He still has it now. He also reports a h/o a L MCA stroke with residual RUE and RLE weakness with foot drop, and expressive aphasia. This occurs during periods of severe fatigue even prior to the cath but has seemed to be worse since that time. He is speaking well to me during this interview and is A&O x 3 with no focal neuro deficits on exam , however, and daughter at bedside are saying that his aphasia issue is present. He denies any issues with swallowing, denies headaches or visual changes. ROS is otherwise negative. He denies any recent antibiotic use. Recent medications include the increase of metoprolol from 100mg BID to 150mg BID per Cardiology in [place] for tighter BP control and the addition of PRandin by his PCP. Physical Exam (per Admitting): General Appearance: WD/WN, no apparent distress Head: normocephalic, atraumatic Eyes: normal inspection, PERRL, EOMI, sclerae normal ENT: normal ENT inspection, pharynx normal Neck: supple, no JVD, trachea midline Respiratory/Chest: chest non-tender, lungs clear, normal breath sounds, no respiratory distress, no accessory muscle use Cardiovascular: regular rate, rhythm, no edema, no gallop, no murmur, normal peripheral pulses Abdomen/GI: normal bowel sounds, non tender, soft Back: normal inspection Extremities/Musculoskelatal: normal inspection, no calf tenderness, no pedal edema, normal range of motion, + pertinent finding (strength intact throughout) Neurologic/Psych: in home caregiver II-XII nml as tested, no motor/sensory deficits, alert , normal mood/affect, normal reflexes, oriented x 3 Skin: normal color, warm/dry, no rash Hospital Course 61 yo M with h/o cerebrovascular disease and CAD s/p cardiac catheterization with complication two weeks ago presents with acute chest pain, diarrhea and fatigue/malaise 1. CHEST PAIN, HISTORY OF CAD, RCA DISSECTION - Chest CT: no aortic dissection - cardiac markers negative, EKG no signs of ischemia continued on ASA, Plavix - systolic BP in the low 100 range HOLD ISMN, Metoprolol, Lisinopril Cardiology consulted, cleared for transfer to [facility] for further eval and management 2. L thalamic Lesion: Subacute stroke vs Mass History of L MCA stroke. - Pt reports a worsening of old deficits including aphasia, RUQ and RLE weakness and RUE numbness since his cardiac cath two weeks ago. - MRI Brain: IMPRESSION: 1. Focal area of signal abnormality within the left thalamus as described on comparison studies correlates with a heterogeneous ring-enhancing lesion with some mild central enhancement measuring up to 1.9 x 1.1 x 1.4 cm. This causes mild expansion with associated vasogenic edema within the left thalamus. Differential considerations would include primary glial neoplasm or metastasis. No additional masses or abnormal enhancement identified. 2. Remote left frontal infarction with associated gliosis and encephalomalacia. 3. Unchanged subcentimeter colloid cyst seen near the foramen of Malena. MRA Head: IMPRESSION: 1. Occlusion of the left internal carotid artery again seen with patent right ICA and reconstitution of flow through the [place] of [place] into the left MCA and MASON branches. 2. Decreased flow of the distal middle cerebral artery branches within the distribution of the remote left frontal infarction without discrete vessel occlusion or high-grade narrowing identified. 3. Otherwise unremarkable MRA of the head. CT Angio neck: IMPRESSION: 1. 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 2. Prior right internal carotid endarterectomy. The previously described areas of signal loss involving the right common and internal carotid arteries were likely secondary to artifact from the graft material. No high-grade narrowing or occlusion is seen involving the patent right common or internal carotid arteries. 3. 60% stenosis involves the origin of the left vertebral artery secondary to mixed atheromatous and atherosclerotic plaquing. The left vertebral artery is dominant. 4. Less than 50% narrowing involves the origin of the left subclavian artery. CT abdomen and pelvis, Chest: . Stable 3 mm subpleural nodule in the right middle lobe, image 136 series 9 which is likely benign. Central airways are patent. -- no other obvious masses -- patient evaluated by Dr. Strong- Neurologist recommend transfer to [facility] for evaluation of possible Left Thalamus Mass -- discussed at length with Dr. Ramirez and Dr. Henderson - Hospitalist and Neurosurgeon in [facility] they kindly accepted the patient for further evaluation and management of the Left Thalamus Lesion- Subacute Stroke vs. Mass in the setting of L ICA stenosis, Low normal BP with L ICA stenosis -- already on ASA, Plavix 3. Colitis -- nonspecific in setting of acute diarrhea No recent abx use. -- diarrhea resolved stool cultures: pending - changed from Zosyn to Augmentin PO (allergic to Cipro) 4. Bacteriuria-likely recent instrumentation with Morgan while recently hospitalized - no urinary symptoms - ff up urine culture: (+) Staph species , sens pending - on Augmentin - afebrile, no dysuria 5. DMI -uncontrolled as outpatient so Prandin was recently added in last two weeks. - ISS and Lantus Pharm Glycemic Management 6. HTN - BP on the low side, systolic 100s - HOLD Norvasc 5mg, Metoprolol 150mg PO BID, and Lisinopril 20mg PO daily. monitor 7. Chronic OA pain-Cymbalta 8. Left Internal Carotid stenosis-s/p stent placement RCA in the past. - Carotid US: (+) complete occlusion of L Carotid Artery - on ASA, Plavix, Statin DVT proph-Lovenox Dispo transfer to [facility] Total time spent on discharge = 70 minutes This includes examination of the patient, discharge planning, medication reconciliation, and communication with other providers. Discharge Instructions Discharge Instructions Date of Service Jul 26, 2017. Admission Reason for Admission: Stroke Discharge Discharge Diagnosis / Problem: LEFT THALAMUS LESION- STROKE VS. MASS Discharge Goals Goal(s): Diagnostic testing, Therapeutic intervention Activity Recommendations Activity Level: Assistance Required Therapies: Physical Therapy, Occupational Therapy, Speech Therapy . Additional Information Patient informed of condition: Yes Advance Directives: No (UNKNOWN) DNR: No (PATIENT IS FULL CODE) Level of Care: Other ([facility]) Communicable Disease: No Prognosis: Other (GUARDED) Instructions / Follow-Up Instructions / Follow-Up PLEASE REFER TO ACCOMPANYING HOSPITAL DISCHARGE SUMMARY FOR FURTHER DETAILS. Current Hospital Diet Patient's current hospital diet: AHA Diet (Heart Healthy), Diabetes Type 2 Diet Discharge Diet Recommended Diet: AHA Diet (Heart Healthy), Diabetes Type 2 Diet Procedures Procedures Performed: BRAIN MRI, HEAD AND NECK MRA, CT ANGIO NECK, CT ABDOMEN AND PELVIS Pending Studies Studies pending at discharge: yes List of pending studies: FURTHER EVALUATION AND MANAGEMENT PER [facility] Physician Orders On Transfer Special Precautions: PLEASE REFER TO ACCOMPANYING HOSPITAL DISCHARGE SUMMARY FOR FURTHER DETAILS. Laboratory Results Hemoglobin A1c Test 07/25/17 05:33 Range/Units Estimated Average Glucose 146 mg/dl Hemoglobin A1c 6.7 H 4.5-5.6 % Lipid Panel Test 07/25/17 05:33 Range/Units Triglycerides Level 120 0-150 mg/dl Cholesterol Level 163 0-200 mg/dl HDL Cholesterol 42 mg/dl Cholesterol/HDL Ratio 3.9 LDL Cholesterol, Calculated 97 mg/dl Medical Emergencies . Who to Call and When: Medical Emergencies: If at any time you feel your situation is an emergency, please call 911 immediately. . Non-Emergent Contact Non-Emergency issues call your: Primary Care Provider Call Non-Emergent contact if: you have a fever, you have any medication questions . . "Provider Documentation" section prepared by Josh Tenorio. . Core Measure Problem Core Measures: Stroke AMI Core Measures Reason no ASA as I/P: Treatment provided - N/A Stroke Core Measures Reason no t-PA for Stroke: Treatment not indicated Reason no antithrom by day 2: Treatment provided - N/A Reason no antithrom at D/C: Treatment provided - N/A Reason no statin at D/C: Treatment provided - N/A Reason no anticoag w/a fib: Treatment not indicated
[2017-07-26 11:49] VITALS: BP 118/73; PULSE 88; TEMP 36.7; O2SAT 97
--- NOTE | 2017-07-26 11:49 | PROGRESS NOTE ---
DATE: 07/26/2017 I am seeing Mr. León in followup. He was admitted to our facility for chest pain and shortness of breath with a history of a right hemiparesis that came on after an initial cardiac catheterization. He has a known left frontal stroke. His MRI showed ring enhancement with mild mass effect and edema in the region of the left thalamus. No other lesions were noted. Of course this could represent an apical infarct that the radiologist raises the question as well and I think it is reasonable that this is a space occupying lesion. It could be a primary tumor. It could be a primary NURSE SUBSTANCE ABUSE lymphoma. Other infectious etiologies include toxoplasmosis. The patient's MRA of the neck suggested an occlusion with reconstitution distally of the right carotid. It was important to know the status of the right carotid, as the left carotid is occluded and the patient has had some syncopal episodes with upright position and with bearing down. A CTA showed that there was indeed intact flow and that was the region of the right carotid stent. I find that very reassuring. CT of the chest, abdomen and pelvis did not show any evidence of a malignancy. He has not had any new neurologic symptoms. He has mild residual word finding difficulty from the stroke that he had 4 years ago. There is no visual field abnormality. No dysarthria. Motor, mild weakness of the right upper extremity, right lower is full. IMPRESSION: 1. History of left frontal infarction in the setting of carotid occlusion. 2. Increased right-sided weakness after cardiac catheterization suspicious for a catheter related infarct. The aforementioned catheterization was approximately 10 days ago. His MRI of the brain does not show typical abnormality of diffusion imaging that would be expected at 10 days, although this could be an atypical stroke and hopefully it is. There is ring enhancement as well was mild mass effect as well as edema which is somewhat unusual for the infarct. The patient will be transferred to [place] for further evaluation. Options will probably include consideration of a lumbar puncture if safe to check for cytology, toxoplasmosis. I would recommend checking HIV status as well as a serum tox level checking for serum antibodies to toxoplasmosis. Additionally, likely an MRI will be repeated in 3-4 weeks. If this is infarct, we will see typical evolutionary changes. The patient should be referred to see me in followup post discharge. [facility]
[2017-07-26 14:00] VITALS: BP 118/73; PULSE 88; TEMP 36.7; O2SAT 97
[2017-07-26] MEDS ORDERED: METOPROLOL TARTRATE 25 MG TAB PO ONE (15:15)
--- NOTE | 2017-07-29 07:40 | EDITING REQUIRED CODING QUERY ---
CODING QUERY To promote full compliance with coding requirements relating to patient care, provider participation is requested in all cases of auditing coder uncertainty. Please assist us with the question(s) below: Coding Question(s): Patient with prior MCA stroke admitted with worsening weakness, aphasia. Work up revealed thalamic lesion vs: subacute stroke . Neurologist 07/26 states " new stroke, left thalamic . Increase left-sided weakness after a cardiac catheterization suspicious for a catheter -related infarct". Please check below the statement that describes the stroke. Thank you. Jose Ramon Rojas [facility] Physician's Response(s): The stroke was possibly result of a recent cardiac catheterization The stroke was not a result of a cardiac catheterization Cannot clinically correlate ___X Other/ Please document: ___Difficult to say- the lesion could either be an infarct vs. mass. Patient was transferred to [facility] for further evaluation. Thanks! Principal Diagnosis: "_that condition established after study, to be chiefly responsible for occasioning the admission of the patient to the hospital for care." Co-Existing Principal Diagnosis: "_when two or more diagnoses equally meet the criteria for principal diagnosis as determined by the circumstances of admission, diagnostic work up, and/or therapy provided, and the Alphabetic Index, Tabular List, or another coding guideline does not provide sequencing direction, any one of the diagnoses may be sequenced first." "When the physician has documented what appears to be a current diagnosis in the body of the record, but has not included the diagnosis in the final diagnostic statement, the physician should be asked whether the diagnosis should be added." (Source [facility] 2 QTR90. p3-4)
== END 2017-07-26 16:00 | disposition short-term general hospital (02) | DRG 65 ==
LOC: EDBD 16:37 → C.EDA 16:38 → C.2T 20:06 → CANRESERV 20:17 → ENRESERV 20:17
PROVIDERS: ADMIT Hospitalist; ATTEND Internal Medicine
DX: I63.9 Cerebral infarction, unspecified (principal); G93.9 Disorder of brain, unspecified; I69.951 Hemiplegia and hemiparesis following unspecified cerebrovascular disease affecting right dominant side; K52.9 Noninfective gastroenteritis and colitis, unspecified; I65.22 Occlusion and stenosis of left carotid artery; I25.10 Atherosclerotic heart disease of native coronary artery without angina pectoris; J44.9 Chronic obstructive pulmonary disease, unspecified; I69.998 Other sequelae following unspecified cerebrovascular disease; E11.9 Type 2 diabetes mellitus without complications; I25.82 Chronic total occlusion of coronary artery; K21.9 Gastro-esophageal reflux disease without esophagitis; I10 Essential (primary) hypertension; E66.9 Obesity, unspecified; I69.920 Aphasia following unspecified cerebrovascular disease; E78.5 Hyperlipidemia, unspecified; Z87.891 Personal history of nicotine dependence; M19.90 Unspecified osteoarthritis, unspecified site; R82.71 Bacteriuria; R55 Syncope and collapse; R07.9 Chest pain, unspecified; Z79.82 Long term (current) use of aspirin; Z68.30 Body mass index [BMI] 30.0-30.9, adult; Z83.3 Family history of diabetes mellitus; Z96.643 Presence of artificial hip joint, bilateral; Z79.84 Long term (current) use of oral hypoglycemic drugs

== ENCOUNTER → 2018-01-03 | Outpatient (CLI) | payer OTHER ==
[~2018-01-03] MED LIST changes: -ALBUAER19 INH; +AMOX1TAB43 PO; -AMOX500C3 PO; +ASPCH81X PO; -ASPI81TA28 PO; -CYM30 PO; -FLV400 PO; +FOLIC ACID PO; -GLC500 PO; -ISOS-11 PO; -METH500T37 PO; -METO25TA3 PO; +TAMS0.4C38 PO; +THIA100T11 PO; -THIA250T7 PO; +VNTHFA/IN INH
--- NOTE | 2018-01-04 05:58 | PAP/PSG TECHNICIAN REPORT ---
[facility] Flash Developer Polysomnogram Report Study name: None Report date: 01/04/2018 Study date: 01/03/2018 Referring Physician: Elsie Capone MD Name: MANUEL LEÓN Interpreting Physician: Addi George M.D. Date of : 1955 Flash Developer: JACINDA Perales. Sex: Male Age: 62 StudyType: PSG Weight: 232 lbs Height: 62 years, Height 6' 0" Neck Circum: BMI: 31.46 Medications: Tylenol 325mg, Albuterol, Duoneb 2.5-0.5mg/3ml solution, ASA 81mg, Plavix 75mg, Flexeril 10mg, Cymbalta 60mg, Zetia 10mg, Folic acid 400mcg, Imdur 60mg, Prinivil 20mg, Glucophage 1000mg, Lopressor 100mg, Nitrostat 0.4mg, Prandin 1mg Patient History Study started on room air with no ETCO2 monitoring in room #6. 62 yr old male here tonight for a possible split psg He has a history of daytime sleepiness, snoring, witnessed apnea and movements of his legs and arms while sleeping. His states that he swings his fists around. Arm and leg leads are being used tonight. He has had two strokes in the past the first when he was 58 years old and the second one was just last year. He has not had a HST and he is not being treated for LILY. His only sleep study was when he was in his 20's and he does not recall what the results were. His ESS=8/24. His neck circ=17.75inches Parameters Monitored NPSG: E1-M2, E2-M1, Fp1-M2, Fp2-M1, F3-M2, F4-M2, F4-M1, C3-M2, C4-M2, C4-M1, O1-M2, O2-M2, O2-M1, T3-M2, T4-M1, P3-M2, P4-M1, CHIN1, CHIN2, HR, EKG, Legs, PFLOW, SNOR, FLOW, CFLOW, Tidal Volume, THOR, ABDO, SpO2, PLTH, CPRESS, ETCO2 Wave, ETCO2, pH Sleep Architecture Sleep Stages Time at Lights Off 9:52:18 PM STAGES Time (min.) TST (%) Time at Lights On 5:44:18 AM Wake 182.5 -- Total Recording Time (TRT) 472.00 min. N1 26.0 9 Total Sleep Period (TSP) 382.5 min. N2 239.5 83 Total Sleep Time (TST) 289.5min. N3 24.0 8 Awake Time 182.5 min. REM 0.0 0 Wake after Sleep Onset 93.0 min. Sleep Efficiency (SE) 61 % Sleep Onset Latency (BUD) 89.5 min. Number of Stage 1 Shifts None Awakenings 16 Stage Changes 67 Number of REM periods N/A REM 0.0 0 REM Latency NONE min. NREM 289.5 100 Body Position Analysis Supine Right Left Side Prone Vertical Total Sleep Time (min.) 38.1 236.4 44.5 280.85 0.0 0.0 Total Sleep Time (%) 3% 82% 15% 97 0% N/A% Total Sleep Time REM (min.) 0.0 0.0 0.0 None 0.0 0.0 Total Sleep Time NREM (min.) 8.6 236.4 44.5 None 0.0 0.0 Intermittent Wake (min.) 29.4 28.4 124.7 None 0.0 0.0 Total Sleep Period (%) 8% None None None None None Arousals Myoclonus (PLM) * Events Count Index Events Count Index Spontaneous 14 3 Events Awake (PLMW) 261 85.8 Respiratory 0 0.0 Events Asleep w/ Arousal (PLMA) 27 5.6 PLM 26 6 Events Asleep w/o Arousal (PLMS) 460 95.3 Snoring 5 1 Total Asleep 487 100.9 Total 45 9 Total 748 95 Respiratory Analysis * CA OA MA CH H RERA Total Count 0 4 0 0 0 0 4 Index 0.0 0.8 0.0 0 0.0 0 0.8 Mean Duration 0.0 14.4 0.0 0.00 0.0 0.0 14.4 Longest Duration 0.0 18.4 0.0 0.00 0.0 0.0 18.4 Respiratory Event Summary Total Supine ~Supine Right Left Prone REM NREM Apneas Count 4 0 4 2 2 N/A N/A 4 Index 0.8 0 1 0.5 2.7 N/A N/A 1 Hypopneas (4% Desat) Count 0 0 0 0 0 N/A N/A 0 Index 0.0 0.0 0 0.0 0.0 N/A N/A 0.0 Apneas & All Hypopneas Count 4 0 4 2 2 N/A N/A 4 Index 0.8 0 1 1 3 N/A N/A 0.8 Respiratory Events (Vulcanizing Press Operator+All Hyp+RERA) Count 4 0 4 2 2 N/A N/A 4 Index 0.8 0 1 0.5 2.7 N/A N/A 0.8 Respiratory Related Arousal Count 0 0 0 0 0 N/A N/A 0 Index 0.0 0 0 0 0 N/A N/A 0 Snoring Analysis Supine Right Left Prone REM NREM Total Snore duration 11.4 min Snores count 8 347 76 N/A N/A 431 431 Snore mean duration 1.6 Sec Snores index 56 88 102 N/A N/A 89.3 89.3 TST with snoring (%) 3.9% Desaturation Event Summary: Minimum %SpO2 Event Count Mean/Min/Max Duration(sec.) Desaturation Index % Time In Bed > 90 2 29.1 / 24.3 / 34.0 0.3 100.0 86 - 90 0 N/A 0.0 0.0 81 - 85 0 N/A 0.0 0.0 76 - 80 0 N/A 0.0 0.0 71 - 75 0 N/A 0.0 0.0 66 - 70 0 N/A 0.0 0.0 61 - 65 0 N/A 0.0 0.0 56 - 60 0 N/A 0.0 0.0 51 - 55 0 N/A 0.0 0.0 < 50 0 N/A 0.0 0.0 Total REM NREM Awake <50% 0.0 min. 0.0 min. 0.0 min. 0.0 min. 51 - 60% 0.0 min. 0.0 min. 0.0 min. 0.0 min. 61 - 70% 0.0 min. 0.0 min. 0.0 min. 0.0 min. 71 - 80% 0.0 min. 0.0 min. 0.0 min. 0.0 min. 81 - 90% 0.1 min. 0.0 min. 0.0 min. 0.1 min. 91 - 100% 462.0 min. 0.0 min. 289.4 min. 172.6 min. Average 95 0 95 95 Minimum SpO2 81 N/A 92 81 Desaturation Event Index 0.3 0.0 0.2 0.3 # Desat. Events below 89% N/A N/A N/A N/A Time(%) with Saturation below 89% 0.0 0.0 0.0 0.0 Time(min.) with Saturation below 89% 0.1 0.0 0.0 0.1 Time (mins) REM (mins) NREM (mins) % of TST SpO2 Below 90% N/A N/A NN/A 0.0 SpO2 Below 88% 0 0 0 0 Heart Rate Analysis Min (bpm) Max (bpm) Average (bpm) Awake 44 85 50 NREM 47 61 53 REM N/A N/A N/A Overall 47 61 53 Supplemental O2 Values Minimum O2 level: None Value Start Time End Time Flash Developer Comments Mr. León slept in the right, left and supine positions. Bradycardia and PLM's noted. No bruxism noted. Snoring was noted and scored as a 2 on a scale of 1 through 5. (0=no snoring, 5=snoring loud enough to be heard through a closed door or down the real way). He awoke to use the restroom 1 time during the night. He stated that he slept worse than when at home. No REM obtained. The final report will be interpreted and signed by a sleep physician. The completed physician report will then be placed in the patient medical record. Therapy (cm H2O) 0 TIB (min.) 472.0 TST (min.) 289.5 Sleep Onset (min.) 89.5 REM Onset From Sleep (min.) NONE Sleep Efficiency % 61 Wakefulness (%) 39 Wakefulness (min.) 182.5 NREM 1 (%) 9 NREM 1 (min.) 26.0 NREM 2 (%) 83 NREM 2 (min.) 239.5 NREM 3 (%) 8 NREM 3 (min.) 24.0 REM (%) 0 REM (min.) 0.0 # Arousals 45 Arousal Index 9 # Snore 431 Snore Index 89.3 AHI 0.8 AHI Supine 0 AHI Non-Supine 1 NREM AHI 0.8 REM AHI N/A RDI 0.8 # Obstructive Apnea 4 # Central Apnea 0 # Mixed Apnea 0 # Hypopneas 0 RERAs 0 Total Respiratory Events 5 Time Below SpO2 89% (min.) 0.0 Mean NREM SpO2 (%) 95 Mean REM SpO2 (%) N/A Mean Sleep SpO2 (%) 95 Min NREM SpO2 (%) 92 Min REM SpO2 (%) N/A Position Supine (min.) 38.1 Position Non-supine (min.) 280.9 LM Index Sleep 100.9 LM Index NREM 100.9 LM Index REM N/A Mean Heart Rate (bpm) 53 Min Heart Rate (bpm) 47
--- NOTE | 2018-01-06 18:14 | POLYSOMNOGRAPH REPORT ---
CLINICAL DATA: A 62-year-old male with BMI of 31.[address] Elsie Capone with the history of daytime sleepiness, snoring, witnessed apnea, and movements of his arms and legs while sleeping. His stated that he swings his fist around during sleep. He has had 2 strokes in the past. He has an Monarch sleep score of 8/24. SLEEP ARCHITECTURE: Total sleep period was 382.5 minutes. Total sleep time was 289.5 minutes. This was all non-REM sleep. Sleep onset latency was delayed at 89.5 minutes. REM was not achieved. Sleep efficiency was reduced to 61%. Wake after sleep onset was elevated at 93 minutes. Sleep consisted of stage N1 9%, stage N2 at 83%, and stage N3 8%. AROUSAL DATA: 45 arousals were recorded for an index of 9 per hour. 26 were due to PLMs events. PLM DATA: Severe PLMD was noted. There were 487 limb movements during sleep noted for an index of 101 per hour with arousal index of 5.6 per hour. RESPIRATORY DATA: There was no evidence of clinically significant sleep apnea seen. The AHI was 0.8. There were 4 obstructive apneic episodes. The longest apneic episode was 18.4 seconds. OXIMETRY DATA: No hypoxemia was seen. Oxygen one[place] was 92% during non-REM sleep. Mean saturation was 95%. EKG: Heart ranged from 47-61 beats per minute. No arrhythmias were noted. FOOD MANAGER'S COMMENTS: The patient slept in the right, left, and supine position. Snoring was mild, rated 2 on a scale of 1-5. The patient stated that he slept worse than he did at home. IMPRESSION: 1. No evidence of clinically significant sleep apnea/hypopnea or nocturnal hypoxemia. 2. No REM sleep was attained, so no comments can be made about REM without atonia. 3. Severe periodic limb movement disorder was noted with a PLM index of 101 with an arousal index of 5.6 per hour. RECOMMENDATIONS: The patient should continue to practice good sleep hygiene. Treatment for PLMD may be of benefit. Clinical correlation is needed. MTDD
== END | disposition home or self-care (01) ==
LOC: C.NEUR 21:00
PROVIDERS: ATTEND Psychiatry & Neurology Neurology
DX: G47.61 Periodic limb movement disorder (principal)

== ENCOUNTER 2018-04-18 21:57 | Emergency (ER) | payer OTHER ==
[~2018-04-18] VITALS: Ht 180.3 cm; Wt 107.7 kg
[~2018-04-18 21:57] MED LIST changes: +IPRA-64 INH; -IPRASOL4 INH; +THIA100T10 PO; -THIA100T11 PO
[2018-04-18 22:00] VITALS: Ht 180.3 cm; Wt 107.7 kg
[2018-04-18] MEDS ORDERED: NTRGSL/4 UT (22:36)
[2018-04-18] MEDS ORDERED: ISOS60TA25 PO (22:36)
[2018-04-18] MEDS ORDERED: LISI10TA PO (22:36)
[2018-04-18] MEDS ORDERED: FOLI800T PO (22:36)
[2018-04-18] MEDS ORDERED: METF-384 PO (22:36)
[2018-04-18] MEDS ORDERED: METO100T14 PO (22:36)
[2018-04-18] MEDS ORDERED: NRN100 PO (22:40)
[2018-04-18] MEDS ORDERED: PRN1 PO (22:40)
[2018-04-19] MEDS ORDERED: OXYC-90 PO (00:39)
[2018-04-19] MEDS ORDERED: ACETAMINOPHEN 500 MG TAB PO STA (00:41)
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
[2018-04-19] MEDS ORDERED: OXYCODONE IR HOME PACK PO ONE (00:45)
[2018-04-19 00:56] VITALS: BP 130/65; PULSE 60; TEMP 36.4; O2SAT 94
--- NOTE | 2018-04-19 06:18 | DIAGNOSTIC IMAGING REPORT ---
THORACIC SPINE WITHOUT CT DOSE: 1945.17 mGy.cm HISTORY: Trauma. Pain. fell, back pain TECHNIQUE: Multiaxial CT images of the thoracic spine were performed and reformatted in the sagittal and coronal plane without the use of contrast. A dose lowering technique was utilized adhering to the principles of ALARA. COMPARISON: 01/30/2013 FINDINGS: No fractures. No subluxation. Paraspinal soft tissues are unremarkable. Generalized degenerative disc change and osteopenia. Evidence for an old compression deformity and vertebroplasty at L2. IMPRESSION: No fractures within the thoracic spine. Moderate degenerative change. Old compression deformity L2. The above report was generated using voice recognition software. It may contain grammatical, syntax or spelling errors. Electronically signed by: Terry Long M.D. 04/19/2018 6:17 AM Dictated Date/Time: 04/19/2018 6:14 AM
--- NOTE | 2018-04-19 06:35 | DIAGNOSTIC IMAGING REPORT ---
CT LUMBAR SPINE WITHOUT CT DOSE: CLINICAL HISTORY: Severe back pain status post trauma TECHNIQUE: Helical images were acquired in transverse plane. Reformatted sagittal and coronal images were reviewed. A dose lowering technique was utilized adhering to the principles of ALARA. CONTRAST: No contrast was administered COMPARISON STUDY: None. FINDINGS: L1-2 level: There is an old severe L2 compression fracture status post vertebroplasty. There is 5 mm of retropulsion. There is mild narrowing of the spinal canal at the L1-2 level. There is no significant foraminal stenosis L2-3 level: There is no evidence of significant disc bulge or focal herniation. There is no evidence of spinal or foraminal stenosis. L3-4 level: There is a mild circumferential disc bulge. There is no significant spinal or foraminal stenosis L4-5 level: There is a mild circumferential disc bulge. There is minimal triangular spinal canal narrowing. There is no significant foraminal narrowing L5-S1 level: There is a small disc bulge asymmetric to the right. There is no significant spinal or foraminal stenosis IMPRESSION: 1. Old L2 compression fracture with evidence of prior vertebroplasty. 5 mm of retropulsion. 2. No acute fractures within the lumbar spine. Electronically signed by: Mahendra Rhodes M.D. 04/19/2018 6:33 AM Dictated Date/Time: 04/19/2018 6:29 AM
--- NOTE | 2018-04-19 06:47 | DIAGNOSTIC IMAGING REPORT ---
L FEMUR 2 VIEWS ROUTINE CLINICAL HISTORY: fall, b/l hip pain trauma. Pain. COMPARISON: None. DISCUSSION: The bones and joint spaces appear intact. There is no evidence of fracture, dislocation or bony disease. Total left hip arthroplasty. Subtle lucency adjacent to the metallic prosthesis at the inferior margin of the metallic prosthetic and may indicate early loosening. No acute bony abnormality. IMPRESSION: Degenerative and postoperative change. No acute process. Potential early signs of loosening of the patient's femoral prosthetic. The above report was generated using voice recognition software. It may contain grammatical, syntax or spelling errors. Electronically signed by: Terry Long M.D. 04/19/2018 6:45 AM Dictated Date/Time: 04/19/2018 6:44 AM
--- NOTE | 2018-04-19 06:48 | DIAGNOSTIC IMAGING REPORT ---
R FEMUR 2 VIEWS ROUTINE CLINICAL HISTORY: fall, b/l hip pain pain COMPARISON: None. DISCUSSION: The bones and joint spaces appear intact. There is no evidence of fracture, dislocation or bony disease. Total right hip arthroplasty. IMPRESSION: No acute bony abnormality. Postoperative changes as noted. The above report was generated using voice recognition software. It may contain grammatical, syntax or spelling errors. Electronically signed by: Terry Long M.D. 04/19/2018 6:47 AM Dictated Date/Time: 04/19/2018 6:46 AM
--- NOTE | 2018-04-19 06:50 | DIAGNOSTIC IMAGING REPORT ---
PELVIS 1 OR 2 VIEW ROUTINE CLINICAL HISTORY: b/l hip pain pain COMPARISON: None. DISCUSSION: Bilateral total hip arthroplasties. Good contact between prosthetic and underlying bone. No evidence for acetabular protrusion. There is no evidence for soft tissue swelling. IMPRESSION: No acute process post total bilateral hip arthroplasties. The above report was generated using voice recognition software. It may contain grammatical, syntax or spelling errors. Electronically signed by: Terry Long M.D. 04/19/2018 6:49 AM Dictated Date/Time: 04/19/2018 6:48 AM
[2018-04-22] MEDS ORDERED: ACET-1256 PO (16:35)
[2018-04-22] MEDS ORDERED: OXYC-57 PO (16:40)
[2018-04-22] MEDS ORDERED: FLV400 PO (18:23)
[2018-04-22] MEDS ORDERED: LISI-726 PO (18:23)
[2018-04-22] MEDS ORDERED: THIA100T27 PO (19:35)
[2018-04-22] MEDS ORDERED: TRAM-10 PO (19:35)
== END 2018-04-19 00:57 | disposition home or self-care (01) ==
LOC: C.EDB 21:58
DX: S22.080A Wedge compression fracture of T11-T12 vertebra, initial encounter for closed fracture (principal); W19.XXXA Unspecified fall, initial encounter; Y93.01 Activity, walking, marching and hiking; Y92.828 Other wilderness area as the place of occurrence of the external cause; I10 Essential (primary) hypertension; F32.9 Major depressive disorder, single episode, unspecified; G89.29 Other chronic pain; E11.9 Type 2 diabetes mellitus without complications; Z79.84 Long term (current) use of oral hypoglycemic drugs; Z79.82 Long term (current) use of aspirin; Z79.02 Long term (current) use of antithrombotics/antiplatelets; Z96.643 Presence of artificial hip joint, bilateral; Z98.890 Other specified postprocedural states; Z86.73 Personal history of transient ischemic attack (TIA), and cerebral infarction without residual deficits; Z87.891 Personal history of nicotine dependence

== ENCOUNTER 2020-06-05 16:47 | Observation (INO) ==
[2020-06-05] MEDS ORDERED: MoRPHine SULFATE 4 MG/ML 1 ML CARP\\VIAL IV STA (17:05)
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
--- NOTE | 2020-06-05 17:37 | XRay Report ---
XR elbow RT min 3V routine CLINICAL HISTORY: fall, lateral pain COMPARISON: None FINDINGS: Alignment of the right elbow is anatomic. No acute fracture. There is no joint effusion. T here is mild spurring of the olecranon the insertion of the triceps. There is mild osteophytosis with in the ulnotrochlear articulation. IMPRESSION: No acute fracture or joint effusion of the right elbow. ACT 112: Negative or not required by law. Electronically signed by: Sajan Ferrara M.D. 06/05/2020 5:36 PM
--- NOTE | 2020-06-05 17:39 | XRay Report ---
XR chest 1V portable CLINICAL HISTORY: fall COMPARISON STUDY: Chest radiograph April 22, 2018. FINDINGS: Incidental note is made of multiple old right rib fractures. There is no pneumothorax or pl eural effusion. No airspace opacities are noted. Mild cardiomegaly is unchanged. The appearance of th e chest is unchanged. IMPRESSION: No acute cardiopulmonary findings. No change in appearance of the chest. ACT 112: Negative or not required by law. Electronically signed by: Sajan Ferrara M.D. 06/05/2020 5:38 PM
[2020-06-05 17:51] LABS: Basophils # (auto) 0.06 K/uL (0-0.2); Basophils % (auto) 0.6 %; Eosinophils # (auto) 0.38 K/uL (0-0.5); Hematocrit (blood only) 40.9 % (42-52); Hemoglobin 14.1 g/dL (14.0-18.0); Immature Granulocytes # (auto) 0.03 K/uL (0.00-0.02); Immature Granulocytes % (auto) 0.3 %; Lymphocytes % (auto) 36.5 %; Mean Corpuscular Hemoglobin 31.8 pg (25-34); Mean Corpuscular Hgb Conc 34.5 g/dL (32-36); Mean Corpuscular Volume 92.1 fL (80-100); Mean Platelet Volume 8.9 fL (7.4-10.4); Monocytes # (auto) 0.82 K/uL (0.11-0.59); Monocytes % (auto) 8.5 %; Neutrophils # (auto) 4.81 K/uL (1.4-6.5); Neutrophils % (auto) 50.1 %; Platelet Count 222 K/uL (130-400); RDW Coefficient of Variation 13.1 % (11.5-14.5); RDW Standard Deviation 43.8 fL (36.4-46.3); Red Blood Count 4.44 M/uL (4.7-6.1)
[2020-06-05 17:58] LABS: Alanine Aminotransferase 18 U/L (12-78); Albumin Level 3.5 gm/dl (3.4-5.0); Aspartate Aminotransferase 14 U/L (15-37); BUN Creatinine Ratio 9.3 (10-20); Blood Urea Nitrogen 8 mg/dl (7-18); Calcium 9.1 mg/dl (8.5-10.1); Carbon Dioxide 23 mmol/L (21-32); Chloride 98 mmol/L (98-107); Creatinine Clr Calc Pharmacy 104.3 ml/min; Est GFR (Non-African American) 91.4; Glucose 98 mg/dl (70-99); Lipase 599 U/L (73-393); Magnesium 1.9 mg/dl (1.8-2.4); Potassium 3.9 mmol/L (3.5-5.1); Sodium 131 mmol/L (136-145)
[2020-06-05 17:59] LABS: Partial Thromboplastin Time 27.6 Seconds (21.0-31.0); Prothrombin Time 10.4 Seconds (9.0-12.0)
[2020-06-05 18:10] LABS: Albumin Globulin Ratio 0.9 (0.9-2); Alkaline Phosphatase 68 U/L (45-117); Bilirubin,Total 0.3 mg/dl (0.2-1); Creatine Kinase 53 U/L (39-308); Globulin 3.7 gm/dl (2.5-4.0); Total Protein 7.2 gm/dl (6.4-8.2); Troponin I < 0.015 ng/ml (0-0.045)
[2020-06-05] MEDS ORDERED: OPTIRAY 320 125ml IV ONE (18:41)
--- NOTE | 2020-06-05 19:19 | CT Scan Report ---
CT OF THE HEAD WITHOUT CONTRAST CLINICAL HISTORY: Stroke evaluation. Fall. COMPARISON STUDY: Head CT April 22, 2018. MRI of the brain July 25, 2017. TECHNIQUE: Helical axial images of the head were obtained without IV contrast. Automated exposure con trol was utilized for the study. A dose lowering technique was utilized adhering to the principles o f ALARA. FINDINGS: No acute intracranial hemorrhage, midline shift or mass effect is present. The previously d escribed colloid cyst is less conspicuous on this examination. Ventricular system is stable. Basilar cisterns are patent. Encephalomalacia within the left frontal lobe is unchanged. There are no finding s to suggest acute dural sinus thrombosis or acute territorial infarct. There is no calvarial fractur e. IMPRESSION: 1. No acute intracranial findings. 2. No calvarial fracture. 3. Old left frontal lobe infarct. 4. Previously described colloid cyst less conspicuous on this exam. ACT 112: Negative or not required by law. Electronically signed by: Sajan Ferrara M.D. 06/05/2020 7:17 PM
--- NOTE | 2020-06-05 19:21 | CT Scan Report ---
CT OF THE CERVICAL SPINE WITHOUT CONTRAST CLINICAL HISTORY: fall, syncope COMPARISON STUDY: CTA of the neck July 25, 2017. TECHNIQUE: Helical axial images of the cervical spine were obtained without IV contrast. Sagittal a nd coronal reconstructions were viewed. Automated exposure control was utilized for the study. A do se lowering technique was utilized adhering to the principles of ALARA. FINDINGS: Reversal of the normal cervical lordosis is noted. Craniocervical junction is intact. Sever e multilevel facet arthrosis is noted. There is moderate to severe multilevel degenerative disc disea se. There is no acute cervical spine fracture. There is no suspicious osseous lesion. CTA of the neck will be reported separately. IMPRESSION: No acute cervical spine fracture or subluxation. ACT 112: Negative or not required by law. Electronically signed by: Sajan Ferrara M.D. 06/05/2020 7:20 PM
--- NOTE | 2020-06-05 19:27 | CT Scan Report ---
CT ANGIOGRAPHY OF THE NECK WITH CONTRAST CLINICAL HISTORY: Stroke evaluation COMPARISON STUDY: CTA of the neck July 25, 2017. Technique: CT angiography of the carotid and vertebral arteries was obtained using [id number] Wild 320 IV and 3D reconstruction on an independent workstation. NASCET criteria was utilized. Automated exposure c ontrol was utilized for the study. A dose lowering technique was utilized adhering to the principles of ALARA. Findings: Right carotid stent is patent. There is no significant stenosis of the right internal carot id artery. There is occlusion versus severe stenosis of the proximal left vertebral artery. The left vertebral artery is dominant. No dissection within the major vessels of the neck is noted. There is c hronic occlusion of the cervical portion of the left internal carotid artery. This is unchanged prior CT of July 25, 2017. No cervical lymphadenopathy. Chest CT will be reported separately. IMPRESSION: 1. 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 2. Patent right carotid stent. 3. Occlusion versus severe stenosis of the proximal left vertebral artery. ACT 112: Negative or not required by law. Electronically signed by: Sajan Ferrara M.D. 06/05/2020 7:25 PM
--- NOTE | 2020-06-05 19:32 | CT Scan Report ---
CTA ANGIOGRAPHY OF THE HEAD CLINICAL HISTORY: Stroke evaluation COMPARISON STUDY: MRA of the head July 25, 2017. TECHNIQUE: Helical axial images of the head were obtained following uneventful intravenous administr ation of 118 cc of Optiray 320. Sagittal and coronal reconstructions were viewed as well as maximal i ntensity projections on an independent 3-D workstation. Automated exposure control was utilized for the study. A dose lowering technique was utilized adhering to the principles of ALARA. FINDINGS: No acute intracranial hemorrhage, midline shift or mass effect is present. Encephalomalacia within left frontal lobe is unchanged. Ventricular system is stable. The previously described colloi d cyst is not well visualized on this exam. Chronic occlusion of the cervical portion of the left int ernal carotid artery with reconstitution at the level of the supraclinoid ICA is unchanged and prior MRA. No change since prior exam is noted. The left vertebral artery is dominant. Posterior circulatio n is intact within the head. There is no intracranial aneurysm. There is mild plaque within the right cavernous carotid thousand stenosis. IMPRESSION: 1. No significant change since MRA of July 25, 2017. Chronic occlusion of the left internal caroti d artery with reconstitution at the level of the supraclinoid ICA. 2. Old anterior left MCA distribution infarct. 3. Nonvisualization of the previously identified colloid cyst. Stable ventricular system. In the abse nce of interval procedure, the findings could reflect interval spontaneous rupture of the cyst. ACT 112: Negative or not required by law. Electronically signed by: Sajan Ferrara M.D. 06/05/2020 7:31 PM
--- NOTE | 2020-06-05 19:38 | CT Scan Report ---
CT ANGIOGRAPHY OF THE CHEST, PULMONARY EMBOLUS PROTOCOL CLINICAL HISTORY: PE, syncope, fall COMPARISON STUDY: Chest CT July 25, 2017. TECHNIQUE: Following IV administration of 118 mL of Optiray-320, helical axial images of the chest we re obtained utilizing the pulmonary embolus protocol. Maximal intensity projections and sagittal and coronal reformats were viewed on an independent 3D workstation. IV contrast was administered withou t complication. Automated exposure control was utilized for the study. A dose lowering technique wa s utilized adhering to the principles of ALARA. FINDINGS: No pulmonary embolus is identified. There is no thoracic aortic dissection. Mild cardiomeg dagoberto is noted. No thoracic lymphadenopathy is present. There is no pericardial effusion. No pneumothor ax or pleural effusion is noted. Old right-sided rib fractures are noted. There is no acute rib or th oracic spine fracture. A 4 mm right middle lobe nodule on image 130 is unchanged from earlier exam. T his is benign. There are no airspace opacities. The abdomen and pelvis will be reported separately. IMPRESSION: 1. No pulmonary emboli identified. 2. No acute process within the chest. No acute traumatic findings. ACT 112: Negative or not required by law. Electronically signed by: Sajan Ferrara M.D. 06/05/2020 7:37 PM
--- NOTE | 2020-06-05 19:48 | CT Scan Report ---
CT OF THE ABDOMEN AND PELVIS WITH CONTRAST CLINICAL HISTORY: fall, back pain, syncope COMPARISON STUDY: CT of the abdomen and pelvis January 08, 2019. TECHNIQUE: Following IV administration of 118 mL of Optiray-320, axial images of the abdomen and pelv is were obtained from the lung bases to the proximal femurs. Images were reviewed in the axial, sagit molina, and coronal planes. IV contrast was administered without complication. Automated exposure contr ol was utilized for the study. A dose lowering technique was utilized adhering to the principles of ALARA. FINDINGS: No hemoperitoneum or pneumoperitoneum is noted. There is no evidence for traumatic injury t o the liver, spleen, adrenal glands, kidneys or pancreas. The gallbladder is slightly distended. Ther e is no adjacent infiltration. Bladder wall thickening is noted. Images of the pelvis are degraded by streak artifact from bilateral hip arthroplasties. L2 vertebroplasty is noted. The lumbar spine will be reported separate. No acute fracture within the pelvis or hips is identified. There is extensive plaque within the abdominal aorta. There is no biliary or pancreatic ductal dilatation. There is no f ree fluid. IMPRESSION: 1. No acute traumatic findings within the abdomen or pelvis. 2. Distended bladder with bladder wall thickening. ACT 112: Negative or not required by law. Electronically signed by: Sajan Ferrara M.D. 06/05/2020 7:46 PM
--- NOTE | 2020-06-05 19:53 | CT Scan Report ---
LUMBAR SPINE CT CLINICAL HISTORY: fall pain COMPARISON STUDY: Lumbar spine radiographs October 02, 2018. Lumbar spine CT April 18, 2018. TECHNIQUE: Axial images of the lumbar spine were obtained. Sagittal and coronal reconstructions were viewed. Automated exposure control was utilized for the study. A dose lowering technique was utilize d adhering to the principles of ALARA. FINDINGS: An L2 vertebroplasty is noted. There is no acute lumbar spine fracture. No suspicious osseo us lesion is noted. There is moderate multilevel facet arthrosis. There is mild to moderate multileve l disc space narrowing and osteophytosis. The central canal and neural foramen are suboptimally asses sed by CT. IMPRESSION: 1. No acute lumbar spine fracture or subluxation. 2. Status post L2 vertebroplasty. ACT 112: Negative or not required by law. Electronically signed by: Sajan Ferrara M.D. 06/05/2020 7:51 PM
[2020-06-05] MEDS ORDERED: KETOROLAC TROMETHAMINE 15 MG/ML VIAL IV ONE (20:02)
[2020-06-05] MEDS ORDERED: LACTATED RINGER'S 1,000 ML IV ONE (20:16)
[2020-06-05 20:24] LABS: Appearance Urine Clear (Clear); Bilirubin Urine Negative (Negative); Blood Urine Negative (Negative); Color Urine Yellow; Glucose Urine UA Negative (Negative); Ketones Urine Negative (Negative); Leukocyte Esterase Urine Negative (Negative); Nitrite Urine Negative (Negative); Protein Urine Negative (Negative); Specific Gravity Urine 1.009 (1.000-1.030); Urobilinogen Urine Negative (Negative); pH Urine 5.5 (4.5-7.5)
--- NOTE | 2020-06-05 20:37 | History & Physical Report ---
Date of Service June 05, 2020 Assessment & Plan (1) Stroke-like symptoms: (2) Syncope and collapse: (3) Fall: (4) Sacral back pain: (5) Elbow pain, right: (6) Alcohol use disorder: (7) Diabetes mellitus, type II: (8) COPD (chronic obstructive pulmonary disease): (9) CAD (coronary artery disease): (10) Chronic pain: (11) H/O carotid stenosis: (12) Depression: (13) Tobacco use disorder: This is a 64-year-old male with PMH of CVA in 2012 and 2016 with residual R sided weakness and partial aphasia, CAD, DM II, COPD, alcohol use disorder, tobacco use, HTN and other medical problems listed below who presents with lightheadedness and confusion following syncopal event yesterday. Patient seen in collaboration with Dr. Small. Please see addendum for assessment and plan. History of Present Illness Chief Complaint: Syncopal event yesterday, confusion, dizziness Primary Care Provider: Terry Resendez MD This is a 64-year-old male with PMH of CVA in 2012 and 2016 with residual R sided weakness and partial aphasia, CAD, DM II, COPD, alcohol use disorder, tobacco use, HTN and other medical problems listed below who presents with lightheadedness and confusion following syncopal event yesterday. Patient was getting up to answer the phone when he had syncopal event, collapsing to the floor ending the back of his head. Unsure how long he was on the floor but was able to get himself up. Denies any preceding visual changes, lightheadedness, chest pain or shortness of breath. Has had some residual upper neck and back discomfort since then as well as pain of right elbow. Took his normal hydrocodone with some improvement of pain. Since yesterday, notes that patient seems a bit more confused and having more difficulty than at baseline. Denies any difficulty swallowing today. Denies any new numbness or tingling in the extremities. No fever, chills, cough, wheezing, nausea, vomiting, abdominal pain, dysuria, diarrhea or constipation. Endorses drinking 2 cases of beer per week with last drink around 1300 today. Allergies Allergy/AdvReac Type Severity Reaction Status Date / Time Cipro Allergy Severe hives Verified 08/30/18 16:34 ciprofloxacin Allergy Severe hives Verified 06/05/20 18:27 simvastatin AdvReac Intermediate MUSCLE Verified 06/05/20 18:27 PAIN/WEAKNESS Home Medications Home Medications Medication Instructions Recorded Confirmed Type cholecalciferol (vitamin D3) 1,000 inter.unit PO QAM #0 06/08/15 06/05/20 History clopidogrel 75 mg PO QAM #0 06/14/15 06/05/20 History duloxetine 60 mg PO HS #0 01/11/16 06/05/20 History cyclobenzaprine 10 mg PO TID PRN #0 08/19/16 06/05/20 History tamsulosin 0.4 mg PO QAM #0 07/24/17 06/05/20 History isosorbide mononitrate 60 mg PO DAILY #0 tab 04/18/18 06/05/20 History metoprolol tartrate 50 mg PO BID #0 tab 04/18/18 06/05/20 History nitroglycerin 0.4 mg SUBLINGUAL DIRECTED PRN 04/18/18 06/05/20 History #0 folic acid 400 mcg PO DAILY #0 04/22/18 06/05/20 History thiamine HCl (vitamin B1) 100 mg PO DAILY #0 04/22/18 06/05/20 History tramadol 50 mg PO Q6H PRN #0 tab 04/22/18 06/05/20 History acetaminophen 1,000 mg PO Q6H PRN 10/02/18 06/05/20 History aspirin 81 mg PO DAILY 10/02/18 06/05/20 History hydrocodone-acetaminophen 1 tab PO QID PRN 05/18/19 06/05/20 History metformin 500 mg PO DAILY 06/05/20 06/05/20 History Past Med/Surg History Medical History (Updated 06/05/20 @ 21:34 by Gemma Benavidez PA-C) Alcohol use disorder ASCVD (arteriosclerotic cardiovascular disease) CAD (coronary artery disease) "S/p attempted PCI of a APPRAISER IRRIGATION TAX of right coronary artery, procedure aborted due to 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 Chen" H/O: CVA (cerebrovascular accident) "2005; residual R sided weakness" Impotence of organic origin Left thalamic infarction "July 2017" Obesity (BMI 30-39.9) Osteoarthritis Statin intolerance Thoracic compression fracture Tobacco use disorder Surgical History H/O bilateral hip replacements "[address] Benavidez" H/O repair of rotator cuff "R side; 09/2006" Hx of tonsillectomy Previous back surgery Family History Other Heart disease Social History Smoking Status: Current every day smoker Cigarettes Per Day: 15-16; Second Hand Exposure: No; Do You Dip or Chew Tobacco: No; Tobacco Cessation Education Requested by Patient: No Hx Alcohol Use: Yes Alcohol type: beer Alcohol Intake Frequency: 4 or More x per/Week Alcohol Intake Frequency Comment: 2 cases per week Hx Substance Use: No Preferred Language: Jamaican Communication Ability: Effective Emg Technician Required: No Beliefs That Will Affect Care: None Current Living Situation: Spouse Other Information That Helps Us Care for You: No Feels Safe at Home: Yes Safety Concerns: Feels Safe At This Time Assistive Devices: None and Walker Review of Systems Review of Systems: At least ten systems reviewed and negative except as noted in the HPI. Physical Exam Physical Exam: General Appearance: WD/WN, vitals as above, NAD, sitting up in bed, pleasant, conversing without issue Head: normocephalic, atraumatic Eyes: normal inspection, PERRL, conjunctivae normal, anicteric sclerae ENT: external ear and nose normal, oropharynx normal Neck: normal visual inspection, trachea midline, no thyromegaly Respiratory: normal respiratory effort, lungs clear to auscultation, no wheeze, rales, rhonchi. No accessory muscle use Cardiovascular: bradycardia, regular rhythm, no murmur appreciated, normal peripheral pulses, no BLE edema. Vessels: no JVD Chest: normal inspection of chest Abdomen/GI: normal bowel sounds, soft, nontender, no hepatosplenomegaly Extremities/Musculoskeletal: no cyanosis or clubbing, extremities motor strength 5/5 Neurologic: PERRL, EOMI, accommodation nl, no facial droop or slurred speech noted. +Slight aphasia at baseline. Normal strength and tone in the extremities with mild RUE weakness, CN's II-XI intact bilaterally and moves all extremities Psychiatric: A+Ox3, euthymic affect Skin: no rashes, normal color, warm/dry Results & Data Results & Data ([facility]) Vital Signs (Past 12 Hours) Vital Signs Temp Pulse Pulse Resp BP BP Pulse Ox 06/05/20 20:00 52 L 21 154/75 H 98 06/05/20 19:51 56 L 22 153/84 H 96 06/05/20 18:54 51 L 18 151/80 H 97 06/05/20 16:49 36.7 C 61 20 151/76 H 96 Laboratory Results Short CBC 06/05/20 06/05/20 06/05/20 Range/Units 17:17 17:17 17:17 WBC 9.60 (4.8-10.8) K/uL RBC 4.44 L (4.7-6.1) M/uL Hgb 14.1 (14.0-18.0) g/dL Hct 40.9 L (42-52) % MCV 92.1 (80-100) fL MCH 31.8 (25-34) pg MCHC 34.5 (32-36) g/dL RDW Std Deviation 43.8 (36.4-46.3) fL RDW Coeff of Keny 13.1 (11.5-14.5) % Plt Count 222 (130-400) K/uL MPV 8.9 (7.4-10.4) fL Immature Gran % (Auto) 0.3 % Neut % (Auto) 50.1 % Lymph % (Auto) 36.5 % Mckinley % (Auto) 8.5 % Eos % (Auto) 4.0 % Baso % (Auto) 0.6 % Neut # (Auto) 4.81 (1.4-6.5) K/uL Lymph # (Auto) 3.50 H (1.2-3.4) K/uL Mckinley # (Auto) 0.82 H (0.11-0.59) K/uL Eos # (Auto) 0.38 (0-0.5) K/uL Baso # (Auto) 0.06 (0-0.2) K/uL Immature Gran # (Auto) 0.03 H (0.00-0.02) K/uL PT 10.4 (9.0-12.0) Seconds INR 1.0 (0.9-1.1) APTT 27.6 (21.0-31.0) Seconds PTT Ratio 1.0 Sodium 131 L (136-145) mmol/L Potassium 3.9 (3.5-5.1) mmol/L Chloride 98 (98-107) mmol/L Carbon Dioxide 23 (21-32) mmol/L Anion Gap 10.0 (3-11) BUN 8 (7-18) mg/dl Creatinine 0.85 (0.6-1.4) mg/dl Est Cr Clr Drug Dosing 104.3 ml/min Est GFR ( Amer) 106.0 Est GFR (Non-Af Amer) 91.4 BUN/Creatinine Ratio 9.3 L (10-20) Glucose 98 (70-99) mg/dl Calcium 9.1 (8.5-10.1) mg/dl Magnesium 1.9 (1.8-2.4) mg/dl Total Bilirubin 0.3 (0.2-1) mg/dl AST 14 L (15-37) U/L ALT 18 (12-78) U/L Alkaline Phosphatase 68 (45-117) U/L Total Creatine Kinase 53 (39-308) U/L Troponin I < 0.015 (0-0.045) ng/ml Total Protein 7.2 (6.4-8.2) gm/dl Albumin 3.5 (3.4-5.0) gm/dl Globulin 3.7 (2.5-4.0) gm/dl Albumin/Globulin Ratio 0.9 (0.9-2) Lipase 599 H (73-393) U/L TSH 1.670 (0.300-4.500) uIu/ml Urine Color Urine Appearance (Clear) Urine pH (4.5-7.5) Ur Specific [place] (1.000-1.030) Urine Protein (Negative) Urine Glucose (UA) (Negative) Urine Ketones (Negative) Urine Blood (Negative) Urine Nitrite (Negative) Urine Bilirubin (Negative) Urine Urobilinogen (Negative) Ur Leukocyte Esterase (Negative) Blood Type Antibody Screen 06/05/20 06/05/20 Range/Units 17:28 19:50 WBC (4.8-10.8) K/uL RBC (4.7-6.1) M/uL Hgb (14.0-18.0) g/dL Hct (42-52) % MCV (80-100) fL MCH (25-34) pg MCHC (32-36) g/dL RDW Std Deviation (36.4-46.3) fL RDW Coeff of Keny (11.5-14.5) % Plt Count (130-400) K/uL MPV (7.4-10.4) fL Immature Gran % (Auto) % Neut % (Auto) % Lymph % (Auto) % Mckinley % (Auto) % Eos % (Auto) % Baso % (Auto) % Neut # (Auto) (1.4-6.5) K/uL Lymph # (Auto) (1.2-3.4) K/uL Mckinley # (Auto) (0.11-0.59) K/uL Eos # (Auto) (0-0.5) K/uL Baso # (Auto) (0-0.2) K/uL Immature Gran # (Auto) (0.00-0.02) K/uL PT (9.0-12.0) Seconds INR (0.9-1.1) APTT (21.0-31.0) Seconds PTT Ratio Sodium (136-145) mmol/L Potassium (3.5-5.1) mmol/L Chloride (98-107) mmol/L Carbon Dioxide (21-32) mmol/L Anion Gap (3-11) BUN (7-18) mg/dl Creatinine (0.6-1.4) mg/dl Est Cr Clr Drug Dosing ml/min Est GFR ( Amer) Est GFR (Non-Af Amer) BUN/Creatinine Ratio (10-20) Glucose (70-99) mg/dl Calcium (8.5-10.1) mg/dl Magnesium (1.8-2.4) mg/dl Total Bilirubin (0.2-1) mg/dl AST (15-37) U/L ALT (12-78) U/L Alkaline Phosphatase (45-117) U/L Total Creatine Kinase (39-308) U/L Troponin I (0-0.045) ng/ml Total Protein (6.4-8.2) gm/dl Albumin (3.4-5.0) gm/dl Globulin (2.5-4.0) gm/dl Albumin/Globulin Ratio (0.9-2) Lipase (73-393) U/L TSH (0.300-4.500) uIu/ml Urine Color Yellow Urine Appearance Clear (Clear) Urine pH 5.5 (4.5-7.5) Ur Specific [place] 1.009 (1.000-1.030) Urine Protein Negative (Negative) Urine Glucose (UA) Negative (Negative) Urine Ketones Negative (Negative) Urine Blood Negative (Negative) Urine Nitrite Negative (Negative) Urine Bilirubin Negative (Negative) Urine Urobilinogen Negative (Negative) Ur Leukocyte Esterase Negative (Negative) Blood Type A Positive Antibody Screen NEGATIVE BMP 06/05/20 17:17 Sodium 131 L Potassium 3.9 Chloride 98 Carbon Dioxide 23 BUN 8 Creatinine 0.85 Glucose 98 Calcium 9.1 Cardiac Enzymes 06/05/20 Range/Units 17:17 Total Creatine Kinase 53 (39-308) U/L Troponin I < 0.015 (0-0.045) ng/ml Liver Function 06/05/20 Range/Units 17:17 Total Bilirubin 0.3 (0.2-1) mg/dl AST 14 L (15-37) U/L ALT 18 (12-78) U/L Alkaline Phosphatase 68 (45-117) U/L Albumin 3.5 (3.4-5.0) gm/dl Urine 06/05/20 Range/Units 19:50 Urine Color Yellow Urine Appearance Clear (Clear) Urine pH 5.5 (4.5-7.5) Ur Specific [place] 1.009 (1.000-1.030) Urine Protein Negative (Negative) Urine Glucose (UA) Negative (Negative) Diagnostic Findings Head CT: IMPRESSION: 1. No acute intracranial findings. 2. No calvarial fracture. 3. Old left frontal lobe infarct. 4. Previously described colloid cyst less conspicuous on this exam. Head CTA: 1. No significant change since MRA of July 25, 2017. Chronic occlusion of the left internal carotid artery with reconstitution at the level of the supraclinoid ICA. 2. Old anterior left MCA distribution infarct. 3. Nonvisualization of the previously identified colloid cyst. Stable ventricular system. In the absence of interval procedure, the findings could reflect interval spontaneous rupture of the cyst. Neck CTA: IMPRESSION: 1. Chronic occlusion of the cervical portion of the left internal carotid artery, unchanged since prior exam. 2. Patent right carotid stent. 3. Occlusion versus severe stenosis of the proximal left vertebral artery. Cervical spine CT: IMPRESSION: No acute cervical spine fracture or subluxation. CXR: IMPRESSION: No acute cardiopulmonary findings. No change in appearance of the chest. Chest CTA: IMPRESSION: 1. No pulmonary emboli identified. 2. No acute process within the chest. No acute traumatic findings. R elbow XR: IMPRESSION: No acute fracture or joint effusion of the right elbow. CT abd/pelvis: IMPRESSION: 1. No acute traumatic findings within the abdomen or pelvis. 2. Distended bladder with bladder wall thickening. CT lumbar spine: IMPRESSION: 1. No acute lumbar spine fracture or subluxation. 2. Status post L2 vertebroplasty. ECG Indication: bradycardia Supervising Physician Co-Signing Physician Notes IM ATTENDING : Patient seen and examined. History obtained from patient, family, and records. Preceding documentation by Ms. Gemma Benavidez PA-C reviewed. FINAL ASSESSMENT AND PLAN as follows : Transient aphasia, facial drooping as per account Rule out TIA hx CVA as per records Unwitnessed syncopal event Differentials include orthostasis, cardiac dysfunction, unwitnessed seizures (hx CVA) Hypertension, slight elevated COPD as per records, pulmonary status at baseline DM2, on oral medications well controlled as of recent outpatient hemoglobin A1c Ongoing tobacco/alcohol use OBS Medical telemetry Neurochecks Continue antiplatelet Rx for secondary stroke prevention MRI brain Re: TIA symptoms Permissive hypertension until recurrent stroke ruled out Neurology consult RE TIA symptoms Orthostatic vitals, TTE, EEG for syncope work-up DT precautions, AWSS ISS BG goal [id number], update hemoglobin A1c Nicotine patch. DVT prophylaxis with Lovenox subcu Full code Patient's requesting updates providers. Ms. Maria Dolores León, contact #[phone]. Text document was generated using Imnish voice recognition software. It may contain grammatical or spelling errors. Kindly contact undersigned for clarification of any documentation item in question. (1) Fall Encounter type: initial encounter Qualified Code(s): W19.XXXA - Unspecified fall, initial encounter
[2020-06-05] MEDS ORDERED: GLUCAGON FOR INJ 1 MG VIAL SQ PRN (21:50)
[2020-06-05] MEDS ORDERED: CARBOHYDRATES FOR HYPOGLYCEMIA PO PRN (21:50)
[2020-06-05] MEDS ORDERED: GLUCOSE 10 TABS/TUBE PO PRN (21:50)
[2020-06-05] MEDS ORDERED: GLUCOSE 40% GEL 15 GM TUBE PO PRN (21:50)
[2020-06-05] MEDS ORDERED: DEXTROSE 50% 50 ML SYRINGE IV PRN (21:50)
[2020-06-06] MEDS ORDERED: LORazepam 2 MG/4 ML VIAL IV PRN (00:01)
[2020-06-06] MEDS ORDERED: PROMETHAZINE HCL 6.25 MG in SODIUM CHLORIDE 0.9% 50 ML IV STA (00:01)
[2020-06-06] MEDS ORDERED: ATIVAN IV ALCOHOL WITHDRAWL IV PRN (00:01)
[2020-06-06] MEDS ORDERED: LORazepam 1 MG/2 ML VIAL IV PRN (00:01)
[2020-06-06] MEDS ORDERED: GABAPENTIN 1200MG ALCOHOL WITHDRAWAL LOAD PO STA (00:01)
[2020-06-06] MEDS ORDERED: NITROGLYCERIN SL 0.4 MG/TAB TAB SL PRN (00:01)
[2020-06-06] MEDS ORDERED: GABAPENTIN 600 MG TAB PO ONE (00:01)
[2020-06-06] MEDS ORDERED: LORazepam 3 MG/6 ML VIAL IV PRN (00:01)
[2020-06-06] MEDS ORDERED: HYDROCODONE/ACETAMOPHEN 5/325MG TAB PO PRN (00:07)
[2020-06-06] MEDS ORDERED: CYCLOBENZAPRINE HCL 10 MG TAB PO PRN (00:09)
[2020-06-06] MEDS: INSULIN ASPART 100 UNITS/ML 3 ML PEN SC SCH ×5 (00:12→20:59)
[2020-06-06] MEDS ORDERED: FOLIC ACID IV ONE (01:30)
[2020-06-06] MEDS ORDERED: [UNRECOGNIZED DRUG - OTHER] IV ONE (01:30)
[2020-06-06] MEDS ORDERED: MULTI-VITAMIN INFUSION 10 ML, THIAMINE HCL 100 MG, FOLIC ACID 1 MG in SODIUM CHLORIDE 0... IV ONE (01:30)
[2020-06-06] MEDS ORDERED: MULTI VITAMIN INFUSION IV ONE (01:30)
[2020-06-06] MEDS ORDERED: THIAMINE HCL IV ONE (01:30)
[2020-06-06] MEDS: GABAPENTIN 600 MG TAB PO SCH ×3 (06:17→20:13)
[2020-06-06 07:06] LABS: Basophils # (auto) 0.07 K/uL (0-0.2); Eosinophils # (auto) 0.33 K/uL (0-0.5); Eosinophils % (auto) 4.8 %; Hematocrit (blood only) 39.4 % (42-52); Hemoglobin 13.5 g/dL (14.0-18.0); Immature Granulocytes # (auto) 0.02 K/uL (0.00-0.02); Immature Granulocytes % (auto) 0.3 %; Lymphocytes # (auto) 2.43 K/uL (1.2-3.4); Lymphocytes % (auto) 35.6 %; Mean Corpuscular Hemoglobin 31.9 pg (25-34); Mean Corpuscular Hgb Conc 34.3 g/dL (32-36); Mean Corpuscular Volume 93.1 fL (80-100); Mean Platelet Volume 8.9 fL (7.4-10.4); Monocytes # (auto) 0.63 K/uL (0.11-0.59); Monocytes % (auto) 9.2 %; Neutrophils # (auto) 3.35 K/uL (1.4-6.5); Neutrophils % (auto) 49.1 %; Platelet Count 205 K/uL (130-400); RDW Coefficient of Variation 13.3 % (11.5-14.5); RDW Standard Deviation 45.2 fL (36.4-46.3); Red Blood Count 4.23 M/uL (4.7-6.1); White Blood Count 6.83 K/uL (4.8-10.8)
[2020-06-06 07:29] LABS: BUN Creatinine Ratio 10.9 (10-20); Calcium 9.3 mg/dl (8.5-10.1); Creatinine Clr Calc Pharmacy 90.9 ml/min; Est GFR (African American) 94.6; Est GFR (Non-African American) 81.6
--- NOTE | 2020-06-06 08:14 | Magnetic Resonance Report ---
Brain MRI WITHOUT CONTRAST HISTORY: Transient ischemic attack. Syncope. TECHNIQUE: Multiplanar multisequence MRI of the brain was performed without the use of contrast. COMPARISON STUDY: Head CT 06/05/2020. FINDINGS: No areas of restricted diffusion to suggest acute infarction. The midline structures are in tact. The paranasal sinuses and mastoid air cells are clear. Chronic occlusion of the left internal c arotid artery is again noted. This likely corresponds to the finding of an old left frontal lobe infa rct. No definite mass, hematoma, midline shift. The ventricles and sulci demonstrate mild age-related involutional changes. T2 hyperintensity surrounding the left frontal lobe infarct consistent with gl iosis. This represents expected postoperative changes. IMPRESSION: 1. No acute infarct. 2. No acute intracranial hemorrhage. 3. Old left frontal lobe infarct with chronic occlusion of the left internal carotid artery. ACT 112: Negative or not required by law. Electronically signed by: Jonathan Correa M.D. 06/06/2020 8:13 AM
[2020-06-06] MEDS: CLOPIDOGREL BISULFATE 75 MG TAB PO SCH (09:07)
[2020-06-06] MEDS: TAMSULOSIN HCL 0.4 MG CAP PO SCH (09:07)
[2020-06-06] MEDS: THIAMINE HCL 100 MG TAB PO SCH (09:07)
[2020-06-06] MEDS: ASPIRIN 81 MG ECTAB PO SCH (09:07)
[2020-06-06] MEDS: FOLIC ACID 400 MCG TAB PO SCH (09:07)
[2020-06-06] MEDS: ENOXAPARIN INJ 40 MG/0.4 ML SYR SQ SCH (09:11)
[2020-06-06] MEDS: METOPROLOL TARTRATE 25 MG TAB PO SCH ×2 (09:20→20:13)
--- NOTE | 2020-06-06 11:48 | Electrocardiogram Report ---
Test Reason : Blood Pressure : / mmHG Vent. Rate : 055 BPM Atrial Rate : 055 BPM P-R Int : 158 ms QRS Dur : 096 ms QT Int : 436 ms P-R-T Axes : 083 076 064 degrees QTc Int : 417 ms Sinus bradycardia Nonspecific ST abnormality Abnormal ECG When compared with ECG of 08-JAN-2019 21:21, No significant change was found Confirmed by Justyn Cavazos ([id number]) on 06/06/2020 11:48:37 AM Referred By: REFERRED SELF Confirmed By:Justyn Cavazos
--- NOTE | 2020-06-06 13:57 | Electroencephalogram ---
EEG Procedure Note Date of Service June 06, 2020 Start / End Times Start Time: 06:08 End Time: 06:28 Referring Physician Charles Nielsen History A 64-year-old male with syncope. EEG performed for evaluation of epileptiform activity. Home Medication List Home Medications Medication Instructions Recorded Confirmed Type cholecalciferol (vitamin D3) 1,000 inter.unit PO QAM #0 06/08/15 06/05/20 History clopidogrel 75 mg PO QAM #0 06/14/15 06/05/20 History duloxetine 60 mg PO HS #0 01/11/16 06/05/20 History cyclobenzaprine 10 mg PO TID PRN #0 08/19/16 06/05/20 History tamsulosin 0.4 mg PO QAM #0 07/24/17 06/05/20 History isosorbide mononitrate 60 mg PO DAILY #0 tab 04/18/18 06/05/20 History metoprolol tartrate 50 mg PO BID #0 tab 04/18/18 06/05/20 History nitroglycerin 0.4 mg SUBLINGUAL DIRECTED PRN 04/18/18 06/05/20 History #0 folic acid 400 mcg PO DAILY #0 04/22/18 06/05/20 History thiamine HCl (vitamin B1) 100 mg PO DAILY #0 04/22/18 06/05/20 History tramadol 50 mg PO Q6H PRN #0 tab 04/22/18 06/05/20 History acetaminophen 1,000 mg PO Q6H PRN 10/02/18 06/05/20 History aspirin 81 mg PO DAILY 10/02/18 06/05/20 History hydrocodone-acetaminophen 1 tab PO QID PRN 05/18/19 06/05/20 History metformin 500 mg PO DAILY 06/05/20 06/05/20 History Inpatient Medication List Aspirin (Aspirin 81 Mg Ectab) 81 mg PO DAILY BRIAN Stop: 07/06/20 08:59 Last Admin: 06/06/20 09:07 Dose: 81 mg Documented by: [id number] Clopidogrel Bisulfate (Clopidogrel Bisulfate 75 Mg Tab) 75 mg PO QAM BRIAN Stop: 07/06/20 08:59 Last Admin: 06/06/20 09:07 Dose: 75 mg Documented by: [id number] Enoxaparin Sodium (Enoxaparin Inj 40 Mg/0.4 Ml Syr) 40 mg SQ QAM BRIAN Stop: 07/06/20 08:59 Last Admin: 06/06/20 09:11 Dose: 40 mg Documented by: [id number] Folic Acid (Folic Acid 400 Mcg Tab) 400 mcg PO DAILY BRIAN Stop: 07/06/20 08:59 Last Admin: 06/06/20 09:07 Dose: 400 mcg Documented by: [id number] Multivitamins 10 ml/ Thiamine HCl 100 mg/ Folic Acid 1 mg/Sodium Chloride 1,011.2 mls @ 60 mls/hr IV .[id number] ONE Stop: 06/06/20 18:21 Last Admin: 06/06/20 01:30 Dose: 60 mls/hr Documented by: [id number] Insulin Aspart (Insulin Aspart 100 Units/Ml 3 Ml Pen) 0 units SC ACHS BRIAN Stop: 07/05/20 21:54 Last Admin: 06/06/20 13:06 Dose: Not Given Documented by: [id number] Cosigned by: [id number] Admin: 06/06/20 09:10 Dose: Not Given Documented by: [id number] Cosigned by: [id number] Admin: 06/06/20 00:12 Dose: Not Given Documented by: [id number] Metoprolol Tartrate (Metoprolol Tartrate 25 Mg Tab) 12.5 mg PO BID BRIAN Stop: 07/06/20 08:59 Last Admin: 06/06/20 09:20 Dose: 12.5 mg Documented by: [id number] Tamsulosin HCl (Tamsulosin Hcl 0.4 Mg Cap) 0.4 mg PO QAM BRIAN Stop: 07/06/20 08:59 Last Admin: 06/06/20 09:07 Dose: 0.4 mg Documented by: [id number] Thiamine HCl (Thiamine Hcl 100 Mg Tab) 100 mg PO DAILY BRIAN Stop: 07/06/20 08:59 Last Admin: 06/06/20 09:07 Dose: 100 mg Documented by: [id number] Discontinued Medications Gabapentin (Gabapentin 600 Mg Tab) 1,200 mg PO NOW ONE Stop: 06/06/20 00:02 Last Admin: 06/06/20 00:31 Dose: 1,200 mg Documented by: [id number] Gabapentin (Gabapentin 600 Mg Tab) 600 mg PO Q6H BRIAN Stop: 06/06/20 12:01 Last Admin: 06/06/20 12:10 Dose: 600 mg Documented by: [id number] Admin: 06/06/20 06:17 Dose: 600 mg Documented by: [id number] Lactated Ringer's (Lr) 1,000 mls @ 200 mls/hr IV .Q5H ONE Stop: 06/06/20 01:15 Last Infusion: 06/06/20 00:13 Dose: 0 mls/hr Documented by: [id number] Admin: 06/05/20 20:26 Dose: 200 mls/hr Documented by: [id number] Promethazine HCl 6.25 mg/ (Sodium Chloride) 50.25 mls @ 201 mls/hr IV NOW STA Stop: 06/06/20 00:15 Last Infusion: 06/06/20 00:52 Dose: 0 mls/hr Documented by: [id number] Admin: 06/06/20 00:31 Dose: 201 mls/hr Documented by: [id number] Ioversol (Optiray 320 125ml) 118 ml IV ONCE ONE Stop: 06/05/20 18:42 Last Admin: 06/05/20 18:41 Dose: 118 ml Documented by: [id number] Ketorolac Tromethamine (Ketorolac Tromethamine 15 Mg/Ml Vial) 10 mg IV NOW ONE Stop: 06/05/20 20:03 Last Admin: 06/05/20 20:26 Dose: 10 mg Documented by: [id number] Morphine Sulfate (Morphine Sulfate 4 Mg/Ml 1 Ml Carp\Vial) 4 mg IV NOW STA Stop: 06/05/20 17:06 Last Admin: 06/05/20 17:41 Dose: 4 mg Documented by: [id number] Description This is a 21 electrode EEG with a single channel dedicated to limited EKG. The electrodes were placed in accordance with the International 10-20 system. Report: At the onset of the EEG the patient is drowsy. The background is symmetric. The posterior dominant rhythms 8-9 Hz. during most of this recording the patient is drowsy which is characterized by 7-8 hertz theta activity with some intermixed delta activity. Stage 2 sleep is characterized by sleep spindles. Photic stimulation does not induce any abnormalities. Impression: This is a normal drowsy and asleep EEG. There is no evidence of focal slowing or epileptiform activity.
--- NOTE | 2020-06-06 16:26 | Hospitalist Progress Note ---
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 Has been feeling a lot better this afternoon Denies any new neurological symptoms MRI did not show any new stroke and other relevant scans remained unremarkable without any new lesions EEG did not show any epileptiform activity He has some issues with speech and swallowing from prior stroke Speech evaluation, PT and OT Awaiting neurology input and recommendation (2) Syncope and collapse: No cardiac arrhythmias noted and no more events Echo of the heart showed: Normal LV wall thickness, there is a small sized inferior wall motion abnormality with hypokinesis of the segments, EF 50 to 55%, grade 1 diastolic dysfunction, there is no significant valvular disease, compared to prior studies the patient has a known RCA territory scar better visualized on the current study compared to 2017 (3) Fall: (4) Sacral back pain: Lumbar spine CT did not show any significant abnormality Status post L2 vertebroplasty (5) Elbow pain, right: (6) Alcohol use disorder: (7) Diabetes mellitus, type II: SSI (8) COPD (chronic obstructive pulmonary disease): No acute exacerbation We will continue with current medication (9) CAD (coronary artery disease): No acute issue (10) Chronic pain: (11) H/O carotid stenosis: CTA showing old stenosis (12) Depression: (13) Tobacco use disorder: Advised to quit smoking Admission and Anticipated Discharge Date Admission Date: June 05, 2020 Subjective 06/06/2020 The patient was seen and examined in medical telemetry unit in presence of the He complains today of some back pain without radiation Denies any other neurological symptoms He has persistence of some speech impairment and swallowing issue from prior stroke Review of Systems Review of Systems: All systems reviewed and are unremarkable except as noted below Neurologic: + problem reported (Minimal dysarthria and dysphagia secondary to old stroke) Physical Exam Physical Exam: Urine at the edge of the bed without any acute distress Constitutional: well developed and well nourished; no acute distress and not ill appearing Eyes: PERRL, conjunctivae normal, anicteric sclerae ENMT: external ear and nose normal, oropharynx normal Neck: trachea midline, no thyromegaly Respiratory: normal respiratory effort; no respiratory distress Auscultation: lungs clear to auscultation bilaterally Cardiovascular: Rate/Rhythm: regular rate and regular rhythm Heart Sounds: no murmur Gastrointestinal (Abdomen): Inspection/Auscultation: abdomen normal to inspection; abdomen not distended Percussion/Palpation: abdomen soft; abdomen nontender Musculoskeletal: No acute arthritis involving any joint but does have back pain without any localized tenderness Neurologic: moves all extremities; no focal motor deficits Speech / Cognition: + abnormal speech (Minimal dysarthria) Motor/Sensory: no tremor Psychiatric: A+Ox3, euthymic affect Lymphatic: no cervical or axillary lymphadenopathy Results & Data Results & Data ([facility]) Vital Signs (Past 12 Hours) Vital Signs Temp Pulse Pulse Resp BP Pulse Ox 06/06/20 15:59 36.7 C 62 18 169/82 H 95 06/06/20 14:50 55 L 06/06/20 11:41 36.6 C 46 L 20 146/85 H 99 06/06/20 09:21 63 163/75 H 06/06/20 07:38 36.6 C 49 L 18 176/81 H 97 06/06/20 07:30 55 L Laboratory Results Short CBC 06/05/20 06/06/20 Range/Units 17:17 06:35 WBC 9.60 6.83 (4.8-10.8) K/uL Hgb 14.1 13.5 L (14.0-18.0) g/dL Hct 40.9 L 39.4 L (42-52) % Plt Count 222 205 (130-400) K/uL BMP 06/05/20 06/06/20 17:17 06:35 Sodium 131 L 135 L Potassium 3.9 4.0 Chloride 98 103 Carbon Dioxide 23 27 BUN 8 11 Creatinine 0.85 0.97 Glucose 98 87 Calcium 9.1 9.3 Cardiac Enzymes 06/05/20 Range/Units 17:17 Total Creatine Kinase 53 (39-308) U/L Troponin I < 0.015 (0-0.045) ng/ml Liver Function 06/05/20 Range/Units 17:17 Total Bilirubin 0.3 (0.2-1) mg/dl AST 14 L (15-37) U/L ALT 18 (12-78) U/L Alkaline Phosphatase 68 (45-117) U/L Albumin 3.5 (3.4-5.0) gm/dl Urine 06/05/20 Range/Units 19:50 Urine Color Yellow Urine Appearance Clear (Clear) Urine pH 5.5 (4.5-7.5) Ur Specific [place] 1.009 (1.000-1.030) Urine Protein Negative (Negative) Urine Glucose (UA) Negative (Negative) Diagnostic Findings Head CT: IMPRESSION: 1. No acute intracranial findings. 2. No calvarial fracture. 3. Old left frontal lobe infarct. 4. Previously described colloid cyst less conspicuous on this exam. Head CTA: 1. No significant change since MRA of July 25, 2017. Chronic occlusion of the left internal carotid artery with reconstitution at the level of the supraclinoid ICA. 2. Old anterior left MCA distribution infarct. 3. Nonvisualization of the previously identified colloid cyst. Stable ventricular system. In the absence of interval procedure, the findings could reflect interval spontaneous rupture of the cyst. Neck CTA: IMPRESSION: 1. Chronic occlusion of the cervical portion of the left internal carotid artery, unchanged since prior exam. 2. Patent right carotid stent. 3. Occlusion versus severe stenosis of the proximal left vertebral artery. Cervical spine CT: IMPRESSION: No acute cervical spine fracture or subluxation. CXR: IMPRESSION: No acute cardiopulmonary findings. No change in appearance of the chest. Chest CTA: IMPRESSION: 1. No pulmonary emboli identified. 2. No acute process within the chest. No acute traumatic findings. R elbow XR: IMPRESSION: No acute fracture or joint effusion of the right elbow. CT abd/pelvis: IMPRESSION: 1. No acute traumatic findings within the abdomen or pelvis. 2. Distended bladder with bladder wall thickening. CT lumbar spine: IMPRESSION: 1. No acute lumbar spine fracture or subluxation. 2. Status post L2 vertebroplasty. ECG Indication: bradycardia Medications Administered Current Inpatient Medications Hydrocodone Bitart/Acetaminophen (Hydrocodone/Acetamophen 5/325mg Tab) 1 tab PO QID PRN PRN Reason: Pain Stop: 06/20/20 00:06 Aspirin (Aspirin 81 Mg Ectab) 81 mg PO DAILY [facility] Stop: 07/06/20 08:59 Last Admin: 06/06/20 09:07 Dose: 81 mg Documented by: Clopidogrel Bisulfate (Clopidogrel Bisulfate 75 Mg Tab) 75 mg PO QAM BRIAN Stop: 07/06/20 08:59 Last Admin: 06/06/20 09:07 Dose: 75 mg Documented by: Cyclobenzaprine HCl (Cyclobenzaprine Hcl 10 Mg Tab) 10 mg PO TID PRN PRN Reason: Muscle Spasm Stop: 07/06/20 00:08 Dextrose (Dextrose 50% 50 Ml Syringe) 25 - 50 ml IV UD PRN; Protocol PRN Reason: Hypoglycemia Protocol Stop: 07/05/20 21:49 Duloxetine HCl (Duloxetine Hcl 60 Mg Cap) 60 mg PO HS BRIAN Stop: 07/06/20 20:59 Enoxaparin Sodium (Enoxaparin Inj 40 Mg/0.4 Ml Syr) 40 mg SQ QAM BRIAN Stop: 07/06/20 08:59 Last Admin: 06/06/20 09:11 Dose: 40 mg Documented by: Folic Acid (Folic Acid 400 Mcg Tab) 400 mcg PO DAILY BRIAN Stop: 07/06/20 08:59 Last Admin: 06/06/20 09:07 Dose: 400 mcg Documented by: Gabapentin (Gabapentin 600 Mg Tab) 600 mg PO Q8H BRIAN Stop: 06/07/20 12:01 Gabapentin (Gabapentin 600 Mg Tab) 600 mg PO Q12H BRIAN Stop: 06/08/20 12:01 Gabapentin (Gabapentin 600 Mg Tab) 600 mg PO Q24H BRIAN Stop: 06/09/20 12:01 Glucagon (Glucagon For Inj 1 Mg Vial) 1 mg SQ UD PRN; Protocol PRN Reason: Hypoglycemia Protocol Stop: 07/05/20 21:49 Glucose (Glucose 10 Tabs/Tube) 4 - 8 tabs PO UD PRN; Protocol PRN Reason: Hypoglycemia Protocol Stop: 07/05/20 21:49 Glucose (Glucose 40% Gel 15 Gm Tube) 15 - 30 gm PO UD PRN; Protocol PRN Reason: Hypoglycemia Protocol Stop: 07/05/20 21:49 Multivitamins 10 ml/ Thiamine HCl 100 mg/ Folic Acid 1 mg/Sodium Chlor[place] 1,011.2 mls @ 60 mls/hr IV .[id number] ONE Stop: 06/06/20 18:21 Last Admin: 06/06/20 01:30 Dose: 60 mls/hr Documented by: Lorazepam (Ativan) 1 mg in 2 mls @ 2 mls/min IV UD PRN; Protocol PRN Reason: EtOH Withdrawl AWSS Score 6,7 Stop: 07/06/20 00:00 Lorazepam (Ativan) 2 mg in 4 mls @ 4 mls/min IV UD PRN; Protocol PRN Reason: EtOH Withdrawl AWSS Score 8,9 Stop: 07/06/20 00:00 Lorazepam (Ativan) 3 mg in 6 mls @ 4 mls/min IV ONCE PRN; Protocol PRN Reason: EtOH Withdrawl AWSS Score >=10 Stop: 07/06/20 00:00 Influenza Virus Vaccine (Influenza Vaccine High Dose 65+Yrs 0.5 Ml Syr) 0.5 ml IM .ONCE ONE Stop: 06/13/20 09:01 Insulin Aspart (Insulin Aspart 100 Units/Ml 3 Ml Pen) 0 units SC ACHS [facility] Stop: 07/05/20 21:54 Last Admin: 06/06/20 13:06 Dose: Not Given Documented by: Metoprolol Tartrate (Metoprolol Tartrate 25 Mg Tab) 12.5 mg PO BID BRIAN Stop: 07/06/20 08:59 Last Admin: 06/06/20 09:20 Dose: 12.5 mg Documented by: Miscellaneous (Carbohydrates For Hypoglycemia ) 15 - 30 gm PO UD PRN PRN Reason: Hypoglycemia Protocol Stop: 07/05/20 21:49 Nitroglycerin (Nitroglycerin Sl 0.4 Mg/Tab Tab) 0.4 mg SL UD PRN PRN Reason: Chest Pain Stop: 07/06/20 00:00 Pneumococcal Polyvalent Vaccine (Pneumococcal Polysaccharide Vaccine 25mcg/0.5ml Vial/Syr) 25 mcg IM .ONCE ONE Stop: 06/13/20 09:01 Tamsulosin HCl (Tamsulosin Hcl 0.4 Mg Cap) 0.4 mg PO QAM BRIAN Stop: 07/06/20 08:59 Last Admin: 06/06/20 09:07 Dose: 0.4 mg Documented by: Thiamine HCl (Thiamine Hcl 100 Mg Tab) 100 mg PO DAILY BRIAN Stop: 07/06/20 08:59 Last Admin: 06/06/20 09:07 Dose: 100 mg Documented by: (1) Fall Encounter type: initial encounter Qualified Code(s): W19.XXXA - Unspecified fall, initial encounter
--- NOTE | 2020-06-06 18:25 | Consultation Report ---
DATE OF CONSULTATION: 06/06/2020 REASON FOR CONSULTATION: Syncope, possible transient ischemic attack. HISTORY OF PRESENT ILLNESS: The patient is a 64-year-old male with a history of diabetes and history of stroke. On this background, he was in his usual state of health, took a nap yesterday and upon standing up, felt like he would faint, found himself down on the floor. He has no idea how long he was out. His was not at home at that time. He injured his elbow and his tailbone, was not incontinent and did not bite his tongue. He was not disoriented, but did not feel entirely well, meaning he knew where he was, but did not know the circumstance of the event. He was not diaphoretic. He did not check his blood sugar. He did not notice any new unilateral weakness or numbness, although he indicates when he was examined in the Emergency Room, things felt a little less sensate on the right face than the left. There was no accompanying vertigo. No chest pain, palpitations or shortness of breath. He had otherwise been well. He has had 1 other similar episode at an unknown period of time that occurred with standing. He frequently gets lightheaded with standing. It does sound like he has early satiety. No incontinence. Denies any numbness and tingling. His came home later that day and she said she felt he was having more than his usual amount of word finding. This was hours later. He took hydrocodone with relief of his pain. He last drank 8 cans of beer probably 3 days prior to admission, but did have alcohol on the day of admission. PAST MEDICAL HISTORY: Notable for alcohol use, coronary artery disease, chronic pain, chronic migraine, colloid cyst of the third ventricle, COPD, depression, diabetes, fall, fracture of right ankle, history of right carotid stent, history of left carotid occlusion, left thalamic infarction, statin intolerance, thoracic compression fracture, tobacco use disorder. PAST SURGICAL HISTORY: Bilateral hip replacement, right rotator cuff, tonsillectomy, prior lumbar surgery. FAMILY HISTORY: Heart disease. HOME MEDICATIONS: Include vitamin D, Plavix, duloxetine, cyclobenzaprine, isosorbide, metoprolol, nitroglycerin, folic acid, thiamine, tramadol (which he takes occasionally, had not taken recently), Tylenol, aspirin 81 mg, hydrocodone and metformin. ALLERGIES: CIPRO AND SIMVASTATIN. His echocardiogram shows a small inferior wall motion abnormality with hypokinesis of the segment. Ejection fraction of 50%-55%, no significant valvular heart disease, left atrial size is normal. The patient's electrocardiogram, sinus bradycardia, nonspecific ST abnormality, abnormal EKG. MRI of the brain shows old left frontal infarction. CTA of the neck and head showed no significant change since 08/12/2017. Chronic occlusion of the left internal carotid with reconstitution at the level of the supraclinoid ICA, old anterior left MCA infarct. Nonvisualization of the previously identified colloid cyst. In the absence of procedure, findings could reflect interval spontaneous rupture of cyst. CTA of the neck; chronic occlusion of the cervical portion of the left internal carotid, unchanged since prior exam. Patent right carotid stent. Occlusion versus severe stenosis of proximal left vert. EEG was normal. Noted vitals are that the patient was 40 point orthostatic in the Emergency Room falling from 209/80 to 169/88. Labs on admission notable for a hematocrit of 40.9, normal white count, 3.5 lymphs. Sodium of 131, BUN and creatinine ratio low at 9.3. Blood sugar was 82. Transaminases normal. Lipase 599. Urinalysis negative. Alcohol less than 3. PHYSICAL EXAMINATION: VITAL SIGNS: Current vitals are 36.7, 62, 18, 169/82, 95% on room air. GENERAL: The patient is awake and alert, oriented x3. He has mild difficulty with spontaneous word finding, but naming, repetition and 3-step commands are normal. NECK: There are no carotid bruits. HEART: No heart murmurs. Heart is regular rate and rhythm. SKIN: There is no tongue laceration. There is some abrasion of the right elbow. NEUROLOGIC: His pupils are post-surgical, difficulty visualizing the optic nerves. There is normal mcginnis and motility. There may be a minor flattening of the right nasolabial fold. No dysarthria. Tongue is midline. There is intact bilateral facial sensation. There is mildly reduced right casserole preparer strength with decreased right rapid alternating movements. Otherwise, strength is full. Reflexes are symmetric. Ankle jerks are absent. There is a nearly knee level to temperature. Vibration is present at the ankles. Oaursx-no-wlor and [id number] are normal. Gait is unremarkable. IMPRESSION AND PLAN: Syncopal episode, unwitnessed, suspect the patient has diabetic autonomic neuropathy and lost consciousness with standing and drop in blood pressure. This is supported by a 40-point drop in blood pressure with standing. We would continue to check orthostatics, then minimize any cardiovascular medicine, which may be dropping his pressure. Liberalize his salt intake if permitted, compressive hose arrived. Other options of medications include midodrine and Florinef. Consider gastric emptying study as the patient has early satiety. Within the differential also includes syncope with arrhythmia, symptomatic bradycardia, alcohol withdrawal, hypoglycemia. I do not believe the patient had a new episode of transient ischemia. Consider a sleep study as the patient reports apnea in the past. The patient should see me post discharge.
[2020-06-06] MEDS: DULoxetine HCL 60 MG CAP PO SCH (20:13)
[2020-06-07] MEDS: GABAPENTIN 600 MG TAB PO SCH ×3 (04:10→23:10)
[2020-06-07] MEDS: METOPROLOL TARTRATE 25 MG TAB PO SCH (08:32)
[2020-06-07] MEDS: THIAMINE HCL 100 MG TAB PO SCH (08:32)
[2020-06-07] MEDS: FOLIC ACID 400 MCG TAB PO SCH (08:32)
[2020-06-07] MEDS: TAMSULOSIN HCL 0.4 MG CAP PO SCH (08:32)
[2020-06-07] MEDS: CLOPIDOGREL BISULFATE 75 MG TAB PO SCH (08:32)
[2020-06-07] MEDS: ENOXAPARIN INJ 40 MG/0.4 ML SYR SQ SCH (08:33)
[2020-06-07] MEDS: ASPIRIN 81 MG ECTAB PO SCH (08:33)
[2020-06-07] MEDS: INSULIN ASPART 100 UNITS/ML 3 ML PEN SC SCH ×4 (08:34→21:50)
[2020-06-07] MEDS ORDERED: METOPROLOL TARTRATE 25 MG TAB PO STA (09:07)
[2020-06-07] MEDS ORDERED: amLODIPine BESYLATE 5 MG TAB PO SCH (09:30)
--- NOTE | 2020-06-07 12:33 | Hospitalist Progress Note ---
Date of Service June 07, 2020 Assessment & Plan (1) Stroke-like symptoms: This is a 64-year-old male with PMH of CVA in 2013 and 2017 with residual R sided weakness and partial aphasia, CAD, DM II, COPD, alcohol use disorder, tobacco use, HTN and other medical problems listed below who presents with lightheadedness and confusion following syncopal event yesterday. Has been feeling a lot better this afternoon Denies any new neurological symptoms MRI did not show any new stroke and other relevant scans remained unremarkable without any new lesions EEG did not show any epileptiform activity He has some issues with speech and swallowing from prior stroke Appreciate speech therapy evaluation and recommendation Appreciate neurology input and recommendation He remained stable without any new symptoms He has had PT and OT evaluation and was recommended return home Hypertension Has been on beta-radha to control blood pressure Blood pressure has been running high and may need to start another agent to control blood pressure Resumed his usual dose of beta-radha as an outpatient Postural hypotension Patient has been having postural hypotension for a long time with dizziness Is aware about it and takes time to start any activities from sitting and/or lying position Strongly advised to take precaution to avoid fall Medications like midodrine or Florinef unlikely to cause more symptoms than without it He was advised to take precaution to avoid falls History of apneic episode We will advise for outpatient sleep study to rule out sleep apnea (2) Syncope and collapse: No cardiac arrhythmias noted and no more events Echo of the heart showed: Normal LV wall thickness, there is a small sized inferior wall motion abnormality with hypokinesis of the segments, EF 50 to 55%, grade 1 diastolic dysfunction, there is no significant valvular disease, compared to prior studies the patient has a known RCA territory scar better visualized on the current study compared to 2017 Did not have any arrhythmias (3) Fall: (4) Sacral back pain: Lumbar spine CT did not show any significant abnormality Status post L2 vertebroplasty (5) Elbow pain, right: (6) Alcohol use disorder: (7) Diabetes mellitus, type II: SSI (8) COPD (chronic obstructive pulmonary disease): No acute exacerbation We will continue with current medication (9) CAD (coronary artery disease): No acute issue (10) Chronic pain: (11) H/O carotid stenosis: CTA showing old stenosis (12) Depression: (13) Tobacco use disorder: Advised to quit smoking Admission and Anticipated Discharge Date Admission Date: June 05, 2020 Subjective 06/06/2020 The patient was seen and examined in medical telemetry unit in presence of the He complains today of some back pain without radiation Denies any other neurological symptoms He has persistence of some speech impairment and swallowing issue from prior stroke 06/07/2020 The patient was seen and examined the medical telemetry unit He denies any new symptoms He has had speech therapy evaluation and recommendation He has been moving around without any difficulties and he got the PT and OT evaluation as well He wants to go home today Review of Systems Review of Systems: All systems reviewed and are unremarkable except as noted below Neurologic: + problem reported (Minimal dysarthria and dysphagia secondary to old stroke) Physical Exam Physical Exam: Urine at the edge of the bed without any acute distress Constitutional: well developed and well nourished; no acute distress and not ill appearing Eyes: PERRL, conjunctivae normal, anicteric sclerae ENMT: external ear and nose normal, oropharynx normal Neck: trachea midline, no thyromegaly Respiratory: normal respiratory effort; no respiratory distress Auscultation: lungs clear to auscultation bilaterally Cardiovascular: Rate/Rhythm: regular rate and regular rhythm Heart Sounds: no murmur Gastrointestinal (Abdomen): Inspection/Auscultation: abdomen normal to inspection; abdomen not distended Percussion/Palpation: abdomen soft; abdomen nontender Neurologic: moves all extremities; no focal motor deficits Speech / Cognition: + abnormal speech (Minimal dysarthria) Motor/Sensory: no tremor Psychiatric: A+Ox3, euthymic affect Lymphatic: no cervical or axillary lymphadenopathy Results & Data Results & Data ([facility]) Vital Signs (Past 12 Hours) Vital Signs Temp Pulse Pulse Resp BP Pulse Ox 06/07/20 07:31 36.6 C 64 18 200/85 H 96 06/07/20 07:26 78 06/07/20 03:03 36.6 C 51 L 20 164/85 H 95 06/07/20 01:49 73 Medications Administered Current Inpatient Medications Hydrocodone Bitart/Acetaminophen (Hydrocodone/Acetamophen 5/325mg Tab) 1 tab PO QID PRN PRN Reason: Pain Stop: 06/20/20 00:06 Aspirin (Aspirin 81 Mg Ectab) 81 mg PO DAILY BRIAN Stop: 07/06/20 08:59 Last Admin: 06/07/20 08:33 Dose: 81 mg Documented by: Clopidogrel Bisulfate (Clopidogrel Bisulfate 75 Mg Tab) 75 mg PO QAM BRIAN Stop: 07/06/20 08:59 Last Admin: 06/07/20 08:32 Dose: 75 mg Documented by: Cyclobenzaprine HCl (Cyclobenzaprine Hcl 10 Mg Tab) 10 mg PO TID PRN PRN Reason: Muscle Spasm Stop: 07/06/20 00:08 Dextrose (Dextrose 50% 50 Ml Syringe) 25 - 50 ml IV UD PRN; Protocol PRN Reason: Hypoglycemia Protocol Stop: 07/05/20 21:49 Duloxetine HCl (Duloxetine Hcl 60 Mg Cap) 60 mg PO HS [facility] Stop: 07/06/20 20:59 Last Admin: 06/06/20 20:13 Dose: 60 mg Documented by: Enoxaparin Sodium (Enoxaparin Inj 40 Mg/0.4 Ml Syr) 40 mg SQ QAM [facility] Stop: 07/06/20 08:59 Last Admin: 06/07/20 08:33 Dose: 40 mg Documented by: Folic Acid (Folic Acid 400 Mcg Tab) 400 mcg PO DAILY BRIAN Stop: 07/06/20 08:59 Last Admin: 06/07/20 08:32 Dose: 400 mcg Documented by: Gabapentin (Gabapentin 600 Mg Tab) 600 mg PO Q12H BRIAN Stop: 06/08/20 12:01 Gabapentin (Gabapentin 600 Mg Tab) 600 mg PO Q24H BRIAN Stop: 06/09/20 12:01 Glucagon (Glucagon For Inj 1 Mg Vial) 1 mg SQ UD PRN; Protocol PRN Reason: Hypoglycemia Protocol Stop: 07/05/20 21:49 Glucose (Glucose 10 Tabs/Tube) 4 - 8 tabs PO UD PRN; Protocol PRN Reason: Hypoglycemia Protocol Stop: 07/05/20 21:49 Glucose (Glucose 40% Gel 15 Gm Tube) 15 - 30 gm PO UD PRN; Protocol PRN Reason: Hypoglycemia Protocol Stop: 07/05/20 21:49 Lorazepam (Ativan) 1 mg in 2 mls @ 2 mls/min IV UD PRN; Protocol PRN Reason: EtOH Withdrawl AWSS Score 6,7 Stop: 07/06/20 00:00 Lorazepam (Ativan) 2 mg in 4 mls @ 4 mls/min IV UD PRN; Protocol PRN Reason: EtOH Withdrawl AWSS Score 8,9 Stop: 07/06/20 00:00 Lorazepam (Ativan) 3 mg in 6 mls @ 4 mls/min IV ONCE PRN; Protocol PRN Reason: EtOH Withdrawl AWSS Score >=10 Stop: 07/06/20 00:00 Influenza Virus Vaccine (Influenza Vaccine High Dose 65+Yrs 0.5 Ml Syr) 0.5 ml IM .ONCE ONE Stop: 06/13/20 09:01 Insulin Aspart (Insulin Aspart 100 Units/Ml 3 Ml Pen) 0 units SC ACHS [facility]RIAN Stop: 07/05/20 21:54 Last Admin: 06/07/20 08:34 Dose: Not Given Documented by: Metoprolol Tartrate (Metoprolol Tartrate 50 Mg Tab) 50 mg PO BID BRIAN Stop: 07/07/20 20:59 Miscellaneous (Carbohydrates For Hypoglycemia ) 15 - 30 gm PO UD PRN PRN Reason: Hypoglycemia Protocol Stop: 07/05/20 21:49 Nitroglycerin (Nitroglycerin Sl 0.4 Mg/Tab Tab) 0.4 mg SL UD PRN PRN Reason: Chest Pain Stop: 07/06/20 00:00 Pneumococcal Polyvalent Vaccine (Pneumococcal Polysaccharide Vaccine 25mcg/0.5ml Vial/Syr) 25 mcg IM .ONCE ONE Stop: 06/13/20 09:01 Tamsulosin HCl (Tamsulosin Hcl 0.4 Mg Cap) 0.4 mg PO QAM BRIAN Stop: 07/06/20 08:59 Last Admin: 06/07/20 08:32 Dose: 0.4 mg Documented by: Thiamine HCl (Thiamine Hcl 100 Mg Tab) 100 mg PO DAILY BRIAN Stop: 07/06/20 08:59 Last Admin: 06/07/20 08:32 Dose: 100 mg Documented by: (1) Fall Encounter type: initial encounter Qualified Code(s): W19.XXXA - Unspecified fall, initial encounter
[2020-06-07] MEDS: amLODIPine BESYLATE 5 MG TAB PO SCH (13:13)
--- NOTE | 2020-06-07 17:10 | Progress Notes ---
DATE: 06/07/2020 SUBJECTIVE: I am seeing Mr. León in followup of a syncopal episode. His blood pressure is 40 points orthostatic when checked. EEG was normal. MRI did not show a new event. IMPRESSION: Orthostatic hypotension related to diabetic autonomic neuropathy. The primary care team is adjusting blood pressure medicines. General measures to avoid orthostatic drops in blood pressure may include increasing salt intake, which might be contraindicated, arising slowly, wearing thigh-high TEDs. We will sign off at present, the patient should see me in followup post discharge.
[2020-06-07] MEDS: METOPROLOL TARTRATE 50 MG TAB PO SCH (20:51)
[2020-06-07] MEDS: DULoxetine HCL 60 MG CAP PO SCH (20:51)
[2020-06-08] MEDS: INSULIN ASPART 100 UNITS/ML 3 ML PEN SC SCH ×2 (08:31→12:29)
[2020-06-08] MEDS: CLOPIDOGREL BISULFATE 75 MG TAB PO SCH (08:32)
[2020-06-08] MEDS: ENOXAPARIN INJ 40 MG/0.4 ML SYR SQ SCH (08:32)
[2020-06-08] MEDS: THIAMINE HCL 100 MG TAB PO SCH (08:35)
[2020-06-08] MEDS: FOLIC ACID 400 MCG TAB PO SCH (08:35)
[2020-06-08] MEDS: TAMSULOSIN HCL 0.4 MG CAP PO SCH (08:35)
[2020-06-08] MEDS: METOPROLOL TARTRATE 50 MG TAB PO SCH (08:35)
[2020-06-08] MEDS: ASPIRIN 81 MG ECTAB PO SCH (08:35)
[2020-06-08] MEDS: amLODIPine BESYLATE 5 MG TAB PO SCH (08:36)
--- NOTE | 2020-06-08 12:17 | Hospitalist Progress Note ---
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 Has been feeling a lot better this afternoon Denies any new neurological symptoms MRI did not show any new stroke and other relevant scans remained unremarkable without any new lesions EEG did not show any epileptiform activity He has some issues with speech and swallowing from prior stroke Appreciate speech therapy evaluation and recommendation Appreciate neurology input and recommendation He remained stable without any new symptoms He has had PT and OT evaluation and was recommended return home Remains stable without any acute symptoms Will be discharged home this afternoon Hypertension Has been on beta-radha to control blood pressure Blood pressure has been running high and may need to start another agent to control blood pressure Resumed his usual dose of beta-radha as an outpatient His blood pressure seems to be improving Postural hypotension Patient has been having postural hypotension for a long time with dizziness Is aware about it and takes time to start any activities from sitting and/or lying position Strongly advised to take precaution to avoid fall Medications like midodrine or Florinef unlikely to cause more symptoms than without it He was advised to take precaution to avoid falls History of apneic episode We will advise for outpatient sleep study to rule out sleep apnea (2) Syncope and collapse: No cardiac arrhythmias noted and no more events Echo of the heart showed: Normal LV wall thickness, there is a small sized inferior wall motion abnormality with hypokinesis of the segments, EF 50 to 55%, grade 1 diastolic dysfunction, there is no significant valvular disease, compared to prior studies the patient has a known RCA territory scar better visualized on the current study compared to 2017 Did not have any arrhythmias (3) Fall: (4) Sacral back pain: Lumbar spine CT did not show any significant abnormality Status post L2 vertebroplasty (5) Elbow pain, right: (6) Alcohol use disorder: (7) Diabetes mellitus, type II: SSI (8) COPD (chronic obstructive pulmonary disease): No acute exacerbation We will continue with current medication (9) CAD (coronary artery disease): No acute issue (10) Chronic pain: (11) H/O carotid stenosis: CTA showing old stenosis (12) Depression: (13) Tobacco use disorder: Advised to quit smoking Strongly advised to quit smoking Admission and Anticipated Discharge Date Admission Date: June 08, 2020 Subjective 06/06/2020 The patient was seen and examined in medical telemetry unit in presence of the He complains today of some back pain without radiation Denies any other neurological symptoms He has persistence of some speech impairment and swallowing issue from prior stroke 06/07/2020 The patient was seen and examined the medical telemetry unit He denies any new symptoms He has had speech therapy evaluation and recommendation He has been moving around without any difficulties and he got the PT and OT evaluation as well He wants to go home today 06/08/2020 The patient was seen and examined in medical telemetry unit He denies any symptoms and has been ambulating in the hallway without any problem His blood pressure seems to be improving Review of Systems Review of Systems: All systems reviewed and are unremarkable except as noted below Neurologic: + problem reported (Minimal dysarthria and dysphagia secondary to old stroke) Physical Exam Physical Exam: Urine at the edge of the bed without any acute distress Constitutional: well developed and well nourished; no acute distress and not ill appearing Eyes: PERRL, conjunctivae normal, anicteric sclerae ENMT: external ear and nose normal, oropharynx normal Neck: trachea midline, no thyromegaly Respiratory: normal respiratory effort; no respiratory distress Auscultation: lungs clear to auscultation bilaterally Cardiovascular: Rate/Rhythm: regular rate and regular rhythm Heart Sounds: no murmur Gastrointestinal (Abdomen): Inspection/Auscultation: abdomen normal to inspection; abdomen not distended Percussion/Palpation: abdomen soft; abdomen nontender Musculoskeletal: No acute arthritis involving any joint Neurologic: moves all extremities; no focal motor deficits Speech / Cognition: + abnormal speech (Minimal dysarthria) Motor/Sensory: no tremor Psychiatric: A+Ox3, euthymic affect Lymphatic: no cervical or axillary lymphadenopathy Results & Data Results & Data ([facility]) Vital Signs (Past 12 Hours) Vital Signs Temp Pulse Resp BP Pulse Ox 06/08/20 07:44 36.6 C 62 18 172/93 H 95 06/08/20 02:56 36.5 C 56 L 16 158/82 H 97 Medications Administered Current Inpatient Medications Hydrocodone Bitart/Acetaminophen (Hydrocodone/Acetamophen 5/325mg Tab) 1 tab PO QID PRN PRN Reason: Pain Stop: 06/20/20 00:06 Amlodipine Besylate (Amlodipine Besylate 5 Mg Tab) 5 mg PO QAM [facility] Stop: 07/07/20 12:44 Last Admin: 06/08/20 08:36 Dose: 5 mg Documented by: Aspirin (Aspirin 81 Mg Ectab) 81 mg PO DAILY BRIAN Stop: 07/06/20 08:59 Last Admin: 06/08/20 08:35 Dose: 81 mg Documented by: Clopidogrel Bisulfate (Clopidogrel Bisulfate 75 Mg Tab) 75 mg PO QAM [facility] Stop: 07/06/20 08:59 Last Admin: 06/08/20 08:32 Dose: 75 mg Documented by: Cyclobenzaprine HCl (Cyclobenzaprine Hcl 10 Mg Tab) 10 mg PO TID PRN PRN Reason: Muscle Spasm Stop: 07/06/20 00:08 Dextrose (Dextrose 50% 50 Ml Syringe) 25 - 50 ml IV UD PRN; Protocol PRN Reason: Hypoglycemia Protocol Stop: 07/05/20 21:49 Duloxetine HCl (Duloxetine Hcl 60 Mg Cap) 60 mg PO HS [facility] Stop: 07/06/20 20:59 Last Admin: 06/07/20 20:51 Dose: 60 mg Documented by: Enoxaparin Sodium (Enoxaparin Inj 40 Mg/0.4 Ml Syr) 40 mg SQ QAM [facility] Stop: 07/06/20 08:59 Last Admin: 06/08/20 08:32 Dose: 40 mg Documented by: Folic Acid (Folic Acid 400 Mcg Tab) 400 mcg PO DAILY BRIAN Stop: 07/06/20 08:59 Last Admin: 06/08/20 08:35 Dose: 400 mcg Documented by: Gabapentin (Gabapentin 600 Mg Tab) 600 mg PO Q24H [facility] Stop: 06/09/20 12:01 Glucagon (Glucagon For Inj 1 Mg Vial) 1 mg SQ UD PRN; Protocol PRN Reason: Hypoglycemia Protocol Stop: 07/05/20 21:49 Glucose (Glucose 10 Tabs/Tube) 4 - 8 tabs PO UD PRN; Protocol PRN Reason: Hypoglycemia Protocol Stop: 07/05/20 21:49 Glucose (Glucose 40% Gel 15 Gm Tube) 15 - 30 gm PO UD PRN; Protocol PRN Reason: Hypoglycemia Protocol Stop: 07/05/20 21:49 Lorazepam (Ativan) 1 mg in 2 mls @ 2 mls/min IV UD PRN; Protocol PRN Reason: EtOH Withdrawl AWSS Score 6,7 Stop: 07/06/20 00:00 Lorazepam (Ativan) 2 mg in 4 mls @ 4 mls/min IV UD PRN; Protocol PRN Reason: EtOH Withdrawl AWSS Score 8,9 Stop: 07/06/20 00:00 Lorazepam (Ativan) 3 mg in 6 mls @ 4 mls/min IV ONCE PRN; Protocol PRN Reason: EtOH Withdrawl AWSS Score >=10 Stop: 07/06/20 00:00 Influenza Virus Vaccine (Influenza Vaccine High Dose 65+Yrs 0.5 Ml Syr) 0.5 ml IM .ONCE ONE Stop: 06/13/20 09:01 Insulin Aspart (Insulin Aspart 100 Units/Ml 3 Ml Pen) 0 units SC ACHS BRIAN Stop: 07/05/20 21:54 Last Admin: 06/08/20 08:31 Dose: 3 units Documented by: Metoprolol Tartrate (Metoprolol Tartrate 50 Mg Tab) 50 mg PO BID BRIAN Stop: 07/07/20 20:59 Last Admin: 06/08/20 08:35 Dose: 50 mg Documented by: Miscellaneous (Carbohydrates For Hypoglycemia ) 15 - 30 gm PO UD PRN PRN Reason: Hypoglycemia Protocol Stop: 07/05/20 21:49 Nitroglycerin (Nitroglycerin Sl 0.4 Mg/Tab Tab) 0.4 mg SL UD PRN PRN Reason: Chest Pain Stop: 07/06/20 00:00 Pneumococcal Polyvalent Vaccine (Pneumococcal Polysaccharide Vaccine 25mcg/0.5ml Vial/Syr) 25 mcg IM .ONCE ONE Stop: 06/13/20 09:01 Tamsulosin HCl (Tamsulosin Hcl 0.4 Mg Cap) 0.4 mg PO QAM BRIAN Stop: 07/06/20 08:59 Last Admin: 06/08/20 08:35 Dose: 0.4 mg Documented by: Thiamine HCl (Thiamine Hcl 100 Mg Tab) 100 mg PO DAILY BRIAN Stop: 07/06/20 08:59 Last Admin: 06/08/20 08:35 Dose: 100 mg Documented by: (1) Fall Encounter type: initial encounter Qualified Code(s): W19.XXXA - Unspecified fall, initial encounter
[2020-06-08 12:18] VITALS: TEMP 98.1; O2SAT 96
[2020-06-08] MEDS: GABAPENTIN 600 MG TAB PO SCH (12:27)
[2020-06-08] MEDS ORDERED: NITROGLYCERIN 2% OINTMENT 30GM TUBE EXT ONE (13:46)
[2020-06-08 16:00] VITALS: BP 151/78
[2020-06-08 16:37] VITALS: PULSE 57
--- NOTE | 2020-06-09 08:12 | Discharge Summary ---
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 Patient was getting up to answer the phone when he had syncopal event, collapsing to the floor ending the back of his head. Unsure how long he was on the floor but was able to get himself up. Denies any preceding visual changes, lightheadedness, chest pain or shortness of breath. Has had some residual upper neck and back discomfort since then as well as pain of right elbow. Took his normal hydrocodone with some improvement of pain. Since yesterday, notes that patient seems a bit more confused and having more difficulty than at baseline. Denies any difficulty swallowing today. Denies any new numbness or tingling in the extremities. No fever, chills, cough, wheezing, nausea, vomiting, abdominal pain, dysuria, diarrhea or constipation. Endorses drinking 2 cases of beer per week with last drink around 1300 today. Admission Exam Per Admitting Provider Physical Exam: General Appearance: WD/WN, vitals as above, NAD, sitting up in bed, pleasant, conversing without issue Head: normocephalic, atraumatic Eyes: normal inspection, PERRL, conjunctivae normal, anicteric sclerae ENT: external ear and nose normal, oropharynx normal Neck: normal visual inspection, trachea midline, no thyromegaly Respiratory: normal respiratory effort, lungs clear to auscultation, no wheeze, rales, rhonchi. No accessory muscle use Cardiovascular: bradycardia, regular rhythm, no murmur appreciated, normal peripheral pulses, no BLE edema. Vessels: no JVD Chest: normal inspection of chest Abdomen/GI: normal bowel sounds, soft, nontender, no hepatosplenomegaly Extremities/Musculoskeletal: no cyanosis or clubbing, extremities motor [facility]ren [facility] 5/5 Neurologic: PERRL, EOMI, accommodation nl, no facial droop or slurred speech noted. +Slight aphasia at baseline. Normal strength and tone in the extremities with mild RUE weakness, CN's II-XI intact bilaterally and moves all extremities Psychiatric: A+Ox3, euthymic affect Skin: no rashes, normal color, warm/dry Principal Diagnosis Strokelike symptoms-resolved, history of left carotid stenosis ,hypertension, diabetes type 2, CAD Discharge Exam Constitutional well developed and well nourished; no acute distress and not ill appearing Eyes PERRL, conjunctivae normal, anicteric sclerae ENMT external ear and nose normal, oropharynx normal Neck trachea midline, no thyromegaly Respiratory normal respiratory effort; no respiratory distress Auscultation: lungs clear to auscultation bilaterally Cardiovascular Rate/Rhythm: regular rate and regular rhythm Heart Sounds: no murmur Gastrointestinal (Abdomen) Inspection/Auscultation: abdomen normal to inspection; abdomen not distended Percussion/Palpation: abdomen soft; abdomen nontender Neurologic moves all extremities; no focal motor deficits Speech / Cognition: + abnormal speech (Minimal dysarthria) Motor/Sensory: no tremor Psychiatric A+Ox3, euthymic affect Lymphatic no cervical or axillary lymphadenopathy Discharge Data Allergies Allergy/AdvReac Type Severity Reaction Status Date / Time Cipro Allergy Severe hives Verified 04/22/18 16:34 ciprofloxacin Allergy Severe hives Verified 06/05/20 18:27 simvastatin AdvReac Intermediate MUSCLE Verified 06/05/20 18:27 PAIN/WEAKNESS Consultations 06/05/20 20:10 ED Decision to Admit Stat 06/06/20 00:01 Consult Case Management - Discharge Planning Routine Consult Neurology Routine Ordered Studies 06/05/20 17:02 CT abd pelvis IV con only Stat CT angio chest PE protocol Stat CT angio head w con Stat CT angio neck with con Stat CT cervical spine wo con Stat CT head/brain wo con Stat CT lumbar spine wo con Stat 06/06/20 00:01 MR brain wo con Routine Hospital Course (1) Stroke-like symptoms: This is a 64-year-old male with PMH of CVA in 2013 and 2017 with residual R sided weakness and partial aphasia, CAD, DM II, COPD, alcohol use disorder, tobacco use, HTN and other medical problems listed below who presents with lightheadedness and confusion following syncopal event yesterday. Has been feeling a lot better this afternoon Denies any new neurological symptoms MRI did not show any new stroke and other relevant scans remained unremarkable without any new lesions EEG did not show any epileptiform activity He has some issues with speech and swallowing from prior stroke Appreciate speech therapy evaluation and recommendation Appreciate neurology input and recommendation He remained stable without any new symptoms He has had PT and OT evaluation and was recommended return home Remains stable without any acute symptoms Will be discharged home this afternoon Hypertension Has been on beta-radha to control blood pressure Blood pressure has been running high and may need to start another agent to control blood pressure Resumed his usual dose of beta-radha as an outpatient His blood pressure seems to be improving Postural hypotension Patient has been having postural hypotension for a long time with dizziness Is aware about it and takes time to start any activities from sitting and/or lying position Strongly advised to take precaution to avoid fall Medications like midodrine or Florinef unlikely to cause more symptoms than without it He was advised to take precaution to avoid falls History of apneic episode We will advise for outpatient sleep study to rule out sleep apnea (2) Syncope and collapse: No cardiac arrhythmias noted and no more events Echo of the heart showed: Normal LV wall thickness, there is a small sized inferior wall motion abnormality with hypokinesis of the segments, EF 50 to 55%, grade 1 diastolic dysfunction, there is no significant valvular disease, compared to prior studies the patient has a known RCA territory scar better visualized on the current study compared to 2017 Did not have any arrhythmias (3) Fall: (4) Sacral back pain: Lumbar spine CT did not show any significant abnormality Status post L2 vertebroplasty (5) Elbow pain, right: (6) Alcohol use disorder: (7) Diabetes mellitus, type II: SSI (8) COPD (chronic obstructive pulmonary disease): No acute exacerbation We will continue with current medication (9) CAD (coronary artery disease): No acute issue (10) Chronic pain: (11) H/O carotid stenosis: CTA showing old stenosis (12) Depression: (13) Tobacco use disorder: Advised to quit smoking Strongly advised to quit smoking Total Time Total Time Spent Total Time Spent (In Minutes): 35 MINUTES Total Time Includes: Examination of the Patient, Discharge Planning, Medication Reconciliation and Communication With Other Providers Discharge Plan Discharge Items Patient Disposition: Home - Self-Care Reason For Visit: TIA, SYNCOPE Discharge Diagnosis: Strokelike symptoms-resolved, history of left carotid stenosis ,hypertension, diabetes type 2, CAD Condition on Discharge: Good Activity: Resume your previous activity Non-emergency contact: Primary Care Provider Call non-emergency contact if: you have any medication questions and your symptoms worsen Follow-up/Referrals: Terry Resendez MD [Primary Care Provider] - (Date & Time 06/13/2020 11:00 AM Provider Terry Resendez MD Department [facility] ) Diet: Carb Consistent or DM2 and Heart Healthy Addtl Attending Provider Instructions: Please take precaution to avoid falls Please make an appointment with neurologist in 4 to 6 weeks Pending Studies at Discharge: No Stand-Alone Forms: My [facility], Smoking Cessation Medications and DC Order Prescriptions: New amlodipine [Norvasc] 5 mg Tablet 5 mg PO QAM Qty: 30 RF: 0 Continued cholecalciferol (vitamin D3) 1,000 unit Tablet 1,000 inter.unit PO QAM Qty: 0 RF: 0 clopidogrel 75 mg Tablet 75 mg PO QAM Qty: 0 RF: 0 duloxetine 60 mg Capsule,Delayed Release(Dr/Ec) 60 mg PO HS Qty: 0 RF: 0 cyclobenzaprine 10 mg Tablet 10 mg PO TID PRN (Reason: Muscle Spasm) Qty: 0 RF: 0 tamsulosin 0.4 mg Capsule 0.4 mg PO QAM Qty: 0 RF: 0 metoprolol tartrate 100 mg Tablet 50 mg PO BID Qty: 0 RF: 0 isosorbide mononitrate 60 mg Tablet Extended Release 24 Hr 60 mg PO DAILY Qty: 0 RF: 0 nitroglycerin 0.4 mg Tablet, Sublingual 0.4 mg Sublingual DIRECTED PRN (Reason: Chest Pain) Qty: 0 RF: 0 folic acid 400 mcg Tablet 400 mcg PO DAILY Qty: 0 RF: 0 thiamine HCl (vitamin B1) 100 mg Tablet 100 mg PO DAILY Qty: 0 RF: 0 tramadol 50 mg Tablet 50 mg PO Q6H PRN (Reason: Pain) Qty: 0 RF: 0 metformin 500 mg tablet extended release 24 hr 500 mg PO DAILY RF: 0 aspirin 81 mg Tablet,Delayed Release (Dr/Ec) 81 mg PO DAILY RF: 0 acetaminophen 500 mg Tablet 1,000 mg PO Q6H PRN (Reason: Fever Or Pain) RF: 0 hydrocodone-acetaminophen 5-325 mg Tablet 1 tab PO QID PRN (Reason: Pain) RF: 0 Discharge Orders: Discharge Order (Routine); Ordered 06/08/20 Ordered By: Vineet Page/Other Patient Handouts: Stroke Prevention Activity Admission Data Admit Date/Time: 06/08/20 08:26 Attending Provider: Vineet Ya Admit Provider: Charles Small Primary Care Provider: Terry Resendez Other Providers: Charles Small ; Elsie Hernandez ; Addi Ramos ; Elsie Capone ; Godfrey Brownlee Other Interventions: Discharge Summary Assessment (RN) Last Done: 06/08/20 16:27
[2020-06-09] MEDS ORDERED: GABAPENTIN 600 MG TAB PO SCH (12:00)
[2020-06-13] MEDS ORDERED: PNEUMOCOCCAL Polysaccharide Vaccine 25mcg/0.5mL vial/Syr IM ONE (09:00)
[2020-06-13] MEDS ORDERED: INFLUENZA Vaccine HIGH DOSE 65+yrs 0.5 mL Syr IM ONE (09:00)
== END 2020-06-08 16:53 | disposition home or self-care (01) ==
LOC: 2N 16:47 → ED 16:47 → 2N 23:42

== ENCOUNTER 2021-01-24 15:17 | Observation (INO) ==
[2021-01-24] MEDS ORDERED: ONDANSETRON INJ 2 MG/ML 2 ML VIAL ONE (15:23)
--- NOTE | 2021-01-24 15:52 | Emergency Department Note ---
History of Present Illness General Chief complaint: Syncope Stated complaint: SYNCOPE Time Seen by Provider: 01/24/21 15:31 Source: patient, family, RN notes reviewed and old records reviewed Mode of arrival: EMS Limitations: no limitations (With exception he does have some baseline aphasia and some baseline cognition issues according to his ) History of Present Illness This patient is 65-year-old male who comes in after a syncopal episode in the shower this happened around 2 o'clock. His heard him fall and it he was able to talk he complained of back pain. He did not hit his head although he is on Plavix. His said she want to talk to him and he then became unresponsive like he was raspy breathing and turned bridges. she called 911 he was off and on altered. She says he is better now. He does have baseline right-sided weakness and baseline issues with the speech and comprehension the do tend to wax and wane. He appears to be at baseline now. Over the last 6 months he is also had trouble drinking fluids and he chokes at times intermittently. He does a history of aortic dissection that they've been treated medically. No fever or chills. He is on Plavix. Home Medications Medication Instructions Recorded Confirmed Type cholecalciferol (vitamin D3) 1,000 inter.unit PO QAM #0 06/08/15 01/24/21 History clopidogrel 75 mg PO QAM #0 06/14/15 01/24/21 History duloxetine 60 mg PO HS #0 01/11/16 01/24/21 History cyclobenzaprine 10 mg PO TID PRN #0 08/19/16 01/24/21 History tamsulosin 0.4 mg PO QAM #0 07/24/17 01/24/21 History isosorbide mononitrate 60 mg PO QAM #0 tab 04/18/18 01/24/21 History metoprolol tartrate 50 mg PO BID #0 tab 04/18/18 01/24/21 History nitroglycerin 0.4 mg SUBLINGUAL DIRECTED PRN 04/18/18 01/24/21 History #0 folic acid 400 mcg PO QAM #0 04/22/18 01/24/21 History thiamine HCl (vitamin B1) 100 mg PO QAM #0 04/22/18 01/24/21 History tramadol 50 mg PO Q6H PRN #0 tab 04/22/18 01/24/21 History acetaminophen 1,000 mg PO Q6H PRN 10/02/18 01/24/21 History aspirin 81 mg PO QAM 10/02/18 01/24/21 History hydrocodone-acetaminophen 1 tab PO QID PRN 05/18/19 01/24/21 History metformin 500 mg PO QAM 06/05/20 01/24/21 History amlodipine 2.5 mg PO QAM 01/24/21 01/24/21 History Allergies Allergy/AdvReac Type Severity Reaction Status Date / Time Cipro Allergy Severe hives Verified 04/22/18 16:34 ciprofloxacin Allergy Severe hives Verified 01/24/21 16:00 simvastatin AdvReac Intermediate MUSCLE Verified 01/24/21 16:00 PAIN/WEAKNESS [id number] Reductase AdvReac Intermediate MUSCLE Unverified 01/24/21 16:00 Inhibitor PAIN/WEAKNESS Past Med/Surg History Medical History Alcohol use disorder ASCVD (arteriosclerotic cardiovascular disease) CAD (coronary artery disease) "S/p attempted PCI of a PROGRAM HOST of right coronary artery, procedure aborted due to 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 Chen" H/O: CVA (cerebrovascular accident) "2005; residual R sided weakness" Impotence of organic origin Left thalamic infarction "July 2017" Obesity (BMI 30-39.9) Osteoarthritis Statin intolerance Thoracic compression fracture Tobacco use disorder Surgical History H/O bilateral hip replacements "[address] Benavidez" H/O repair of rotator cuff "R side; 09/2006" Hx of tonsillectomy Previous back surgery Family History Other Heart disease Social History Smoking Status: Current every day smoker Cigarettes Per Day: 15-16; Second Hand Exposure: No; Hx Alcohol Use: Yes Alcohol type: beer Alcohol Intake Frequency: 4 or More x per/Week Alcohol Intake Frequency Comment: 2 cases per week Hx Substance Use: No Preferred Language: Albanian Communication Ability: Effective Steel Rule Inspector Required: No Beliefs That Will Affect Care: None Current Living Situation: Spouse Current Living Situation Comment: Other Information That Helps Us Care for You: No Feels Safe at Home: Yes Safety Concerns: Feels Safe At This Time Assistive Devices: None Review of Systems A total of 10 systems reviewed and were otherwise negative Physical Exam Vital Signs Vital Signs - 24 hr 01/24/21 15:20 01/24/21 15:23 01/24/21 15:30 Temperature 36.6 C Temperature Source Oral Pulse Rate - Lying Pulse Rate - Sitting Pulse Rate - Standing Pulse Rate 49 L 51 L 50 L Pulse Rate [Apical] Pulse Rate from SpO2 Sensor 52 L 49 L Pulse Rhythm Regular Pulse Strength Normal Respiratory Rate 18 17 18 Respiratory Effort / Characteristics Non-Labored Spontaneous Respiratory Depth Normal Respiratory Pattern Regular Blood Pressure - Lying Blood Pressure - Sitting Blood Pressure- Standing Blood Pressure 108/56 L 108/56 L 112/55 L Blood Pressure [Left Arm] Blood Pressure Mean 73 73 74 Blood Pressure Mean [Left Arm] Blood Pressure Position Sitting Blood Pressure Position [Left Arm] Pulse Oximetry 95 92 94 Oxygen Delivery Method Room Air Sepsis Recent Fever Within 48 Hours No Sepsis New/Unexplained Change in Mental Status No Sepsis Action Taken by Nursing No Action Required 01/24/21 15:58 01/24/21 15:59 01/24/21 16:00 Temperature Temperature Source Pulse Rate - Lying Pulse Rate - Sitting Pulse Rate - Standing Pulse Rate 49 L 49 L 50 L Pulse Rate [Apical] Pulse Rate from SpO2 Sensor 49 L Pulse Rhythm Regular Regular Pulse Strength Respiratory Rate 18 18 Respiratory Effort / Characteristics Respiratory Depth Respiratory Pattern Blood Pressure - Lying Blood Pressure - Sitting Blood Pressure- Standing Blood Pressure 113/55 L Blood Pressure [Left Arm] Blood Pressure Mean 74 Blood Pressure Mean [Left Arm] Blood Pressure Position Blood Pressure Position [Left Arm] Pulse Oximetry 96 96 96 Oxygen Delivery Method Room Air Room Air Sepsis Recent Fever Within 48 Hours Sepsis New/Unexplained Change in Mental Status Sepsis Action Taken by Nursing 01/24/21 17:20 01/24/21 19:00 01/24/21 19:46 Temperature Temperature Source Pulse Rate - Lying 50 L Pulse Rate - Sitting 56 L Pulse Rate - Standing 61 Pulse Rate 58 L 55 L Pulse Rate [Apical] Pulse Rate from SpO2 Sensor 59 L Pulse Rhythm Pulse Strength Respiratory Rate 18 22 Respiratory Effort / Characteristics Respiratory Depth Respiratory Pattern Blood Pressure - Lying 123/73 Blood Pressure - Sitting 103/56 L Blood Pressure- Standing 86/50 L Blood Pressure 140/70 138/73 Blood Pressure [Left Arm] Blood Pressure Mean 93 94 Blood Pressure Mean [Left Arm] Blood Pressure Position Blood Pressure Position [Left Arm] Pulse Oximetry 96 95 Oxygen Delivery Method Room Air Sepsis Recent Fever Within 48 Hours Sepsis New/Unexplained Change in Mental Status Sepsis Action Taken by Nursing 01/24/21 20:16 Temperature Temperature Source Pulse Rate - Lying Pulse Rate - Sitting Pulse Rate - Standing Pulse Rate Pulse Rate [Apical] 59 L Pulse Rate from SpO2 Sensor Pulse Rhythm Pulse Strength Respiratory Rate 18 Respiratory Effort / Characteristics Respiratory Depth Respiratory Pattern Blood Pressure - Lying Blood Pressure - Sitting Blood Pressure- Standing Blood Pressure Blood Pressure [Left Arm] 109/81 Blood Pressure Mean Blood Pressure Mean [Left Arm] 90 Blood Pressure Position Blood Pressure Position [Left Arm] Sitting Pulse Oximetry 98 Oxygen Delivery Method Room Air Sepsis Recent Fever Within 48 Hours Sepsis New/Unexplained Change in Mental Status Sepsis Action Taken by Nursing General: Well developed well nourished chronically ill-appearing older male who appears in no acute distress, breathing comfortably on room air. He does have some mild aphasia which is about baseline according to the . He does follow commands appropriately and has no facial droop or asymmetry HEENT: Normal cephalic atraumatic. Pupils are equal round and reactive to light. Extraocular movements are intact. Oropharynx is pink with moist mucous membranes. No swelling of the mouth lips or tongue. Neck: Supple with a midline trachea. No meningeal signs or stiffness, no JVD or bruits. No Stridor. Chest: Clear to auscultation bilaterally. No wheezes or rhonchi. No increased work of breathing. Heart: Regular rate and rhythm without murmurs or gallops. Abdomen: Soft nontender, nondistended without rebound guarding or rigidity. Extremities: No cyanosis clubbing or edema. No calf tenderness or assymetry Spine/Back. Non tender to palpation. No CVA tenderness Skin: Good turgor without rashes. Neurologic exam: Cranial nerves two through 12 are intact. Motor and sensation are intact and symmetrical throughout. Course Administered Medications Multivitamins 10 ml/ Thiamine HCl 100 mg/ Folic Acid 1 mg/Potassium Chloride 40 meq/Sodium Chloride 1,031.2 mls @ 100 mls/hr IV .[id number] ONE Stop: 01/25/21 06:33 Last Admin: 01/24/21 20:36 Dose: 100 mls/hr Documented by: [id number] Discontinued Medications Ioversol (Optiray 350 500ml) 120 ml IV ONCE ONE Stop: 01/24/21 17:08 Last Admin: 01/24/21 17:08 Dose: 120 ml Documented by: [id number] Medical Decision Making Differential Diagnosis CVA, intracranial process, aortic dissection, electrolyte or metabolic abnormality, arrhythmia, intoxication, infection, anemia Medical Records Attestation: I reviewed the patient's medical records. Home Medications Current Medication List: was personally reviewed by me Laboratory Data Result diagrams: 01/24/21 15:30 01/24/21 15:30 Lab Results 01/24/21 01/24/21 01/24/21 Range/Units 15:30 15:30 15:30 WBC 8.58 (4.8-10.8) K/uL RBC 4.33 L (4.7-6.1) M/uL Hgb 13.6 L (14.0-18.0) g/dL Hct 39.2 L (42-52) % MCV 90.5 (80-100) fL MCH 31.4 (25-34) pg MCHC 34.7 (32-36) g/dL RDW Std Deviation 43.3 (36.4-46.3) fL RDW Coeff of Keny 13.2 (11.5-14.5) % Plt Count 177 (130-400) K/uL MPV 8.5 (7.4-10.4) fL Immature Gran % (Auto) 0.3 % Neut % (Auto) 54.0 % Lymph % (Auto) 31.7 % [place] % (Auto) 9.2 % Eos % (Auto) 4.0 % Baso % (Auto) 0.8 % Neut # (Auto) 4.63 (1.4-6.5) K/uL Lymph # (Auto) 2.72 (1.2-3.4) K/uL [place] # (Auto) 0.79 H (0.11-0.59) K/uL Eos # (Auto) 0.34 (0-0.5) K/uL Baso # (Auto) 0.07 (0-0.2) K/uL Immature Gran # (Auto) 0.03 H (0.00-0.02) K/uL PT 9.8 (9.0-12.0) Seconds INR 1.0 (0.9-1.1) APTT 22.8 (21.0-31.0) Seconds PTT Ratio 0.9 Sodium 133 L (136-145) mmol/L Potassium 3.5 (3.5-5.1) mmol/L Chloride 101 (98-107) mmol/L Carbon Dioxide 24 (21-32) mmol/L Anion Gap 8.0 (3-11) BUN 7 (7-18) mg/dl Creatinine 0.87 (0.6-1.4) mg/dl Est Cr Clr Drug Dosing 100.4 ml/min Est GFR ( Amer) 104.2 ml/min Est GFR (Non-Af Amer) 89.9 ml/min BUN/Creatinine Ratio 8.4 L (10-20) Glucose 94 (70-99) mg/dl Calcium 8.0 L (8.5-10.1) mg/dl Magnesium 2.4 (1.8-2.4) mg/dl Total Bilirubin 0.2 (0.2-1) mg/dl AST 15 (15-37) U/L ALT 23 (12-78) U/L Alkaline Phosphatase 59 (45-117) U/L Troponin I < 0.015 (0-0.045) ng/ml Total Protein 6.3 L (6.4-8.2) gm/dl Albumin 3.2 L (3.4-5.0) gm/dl Globulin 3.1 (2.5-4.0) gm/dl Albumin/Globulin Ratio 1.0 (0.9-2) TSH 2.070 (0.300-4.500) uIu/ml Urine Color Urine Appearance (Clear) Urine pH (4.5-7.5) Ur Specific [place] (1.000-1.030) Urine Protein (Negative) Urine Glucose (UA) (Negative) Urine Ketones (Negative) Urine Blood (Negative) Urine Nitrite (Negative) Urine Bilirubin (Negative) Urine Urobilinogen (Negative) Ur Leukocyte Esterase (Negative) Ethyl Alcohol mg/dL (0-3) mg/dl Lyme Disease IgG Ab (Negative) Lyme Disease IgM Ab (Negative) COVID-19 Eval Order SARS-CoV-2 (PCR) (Negative) 01/24/21 01/24/21 01/24/21 Range/Units 15:30 16:03 16:10 WBC (4.8-10.8) K/uL RBC (4.7-6.1) M/uL Hgb (14.0-18.0) g/dL Hct (42-52) % MCV (80-100) fL MCH (25-34) pg MCHC (32-36) g/dL RDW Std Deviation (36.4-46.3) fL RDW Coeff of Keny (11.5-14.5) % Plt Count (130-400) K/uL MPV (7.4-10.4) fL Immature Gran % (Auto) % Neut % (Auto) % Lymph % (Auto) % [place] % (Auto) % Eos % (Auto) % Baso % (Auto) % Neut # (Auto) (1.4-6.5) K/uL Lymph # (Auto) (1.2-3.4) K/uL [place] # (Auto) (0.11-0.59) K/uL Eos # (Auto) (0-0.5) K/uL Baso # (Auto) (0-0.2) K/uL Immature Gran # (Auto) (0.00-0.02) K/uL PT (9.0-12.0) Seconds INR (0.9-1.1) APTT (21.0-31.0) Seconds PTT Ratio Sodium (136-145) mmol/L Potassium (3.5-5.1) mmol/L Chloride (98-107) mmol/L Carbon Dioxide (21-32) mmol/L Anion Gap (3-11) BUN (7-18) mg/dl Creatinine (0.6-1.4) mg/dl Est Cr Clr Drug Dosing ml/min Est GFR ( Amer) ml/min Est GFR (Non-Af Amer) ml/min BUN/Creatinine Ratio (10-20) Glucose (70-99) mg/dl Calcium (8.5-10.1) mg/dl Magnesium (1.8-2.4) mg/dl Total Bilirubin (0.2-1) mg/dl AST (15-37) U/L ALT (12-78) U/L Alkaline Phosphatase (45-117) U/L Troponin I (0-0.045) ng/ml Total Protein (6.4-8.2) gm/dl Albumin (3.4-5.0) gm/dl Globulin (2.5-4.0) gm/dl Albumin/Globulin Ratio (0.9-2) TSH (0.300-4.500) uIu/ml Urine Color Urine Appearance (Clear) Urine pH (4.5-7.5) Ur Specific [place] (1.000-1.030) Urine Protein (Negative) Urine Glucose (UA) (Negative) Urine Ketones (Negative) Urine Blood (Negative) Urine Nitrite (Negative) Urine Bilirubin (Negative) Urine Urobilinogen (Negative) Ur Leukocyte Esterase (Negative) Ethyl Alcohol mg/dL 178.0 H (0-3) mg/dl Lyme Disease IgG Ab Negative (Negative) Lyme Disease IgM Ab Negative (Negative) COVID-19 Eval Order Covid19 at [facility] SARS-CoV-2 (PCR) (Negative) 01/24/21 01/24/21 Range/Units 16:10 17:45 WBC (4.8-10.8) K/uL RBC (4.7-6.1) M/uL Hgb (14.0-18.0) g/dL Hct (42-52) % MCV (80-100) fL MCH (25-34) pg MCHC (32-36) g/dL RDW Std Deviation (36.4-46.3) fL RDW Coeff of Keny (11.5-14.5) % Plt Count (130-400) K/uL MPV (7.4-10.4) fL Immature Gran % (Auto) % Neut % (Auto) % Lymph % (Auto) % [place] % (Auto) % Eos % (Auto) % Baso % (Auto) % Neut # (Auto) (1.4-6.5) K/uL Lymph # (Auto) (1.2-3.4) K/uL [place] # (Auto) (0.11-0.59) K/uL Eos # (Auto) (0-0.5) K/uL Baso # (Auto) (0-0.2) K/uL Immature Gran # (Auto) (0.00-0.02) K/uL PT (9.0-12.0) Seconds INR (0.9-1.1) APTT (21.0-31.0) Seconds PTT Ratio Sodium (136-145) mmol/L Potassium (3.5-5.1) mmol/L Chloride (98-107) mmol/L Carbon Dioxide (21-32) mmol/L Anion Gap (3-11) BUN (7-18) mg/dl Creatinine (0.6-1.4) mg/dl Est Cr Clr Drug Dosing ml/min Est GFR ( Amer) ml/min Est GFR (Non-Af Amer) ml/min BUN/Creatinine Ratio (10-20) Glucose (70-99) mg/dl Calcium (8.5-10.1) mg/dl Magnesium (1.8-2.4) mg/dl Total Bilirubin (0.2-1) mg/dl AST (15-37) U/L ALT (12-78) U/L Alkaline Phosphatase (45-117) U/L Troponin I (0-0.045) ng/ml Total Protein (6.4-8.2) gm/dl Albumin (3.4-5.0) gm/dl Globulin (2.5-4.0) gm/dl Albumin/Globulin Ratio (0.9-2) TSH (0.300-4.500) uIu/ml Urine Color Yellow Urine Appearance Clear (Clear) Urine pH 6.0 (4.5-7.5) Ur Specific [place] 1.022 (1.000-1.030) Urine Protein Negative (Negative) Urine Glucose (UA) Negative (Negative) Urine Ketones Negative (Negative) Urine Blood Negative (Negative) Urine Nitrite Negative (Negative) Urine Bilirubin Negative (Negative) Urine Urobilinogen Negative (Negative) Ur Leukocyte Esterase Negative (Negative) Ethyl Alcohol mg/dL (0-3) mg/dl Lyme Disease IgG Ab (Negative) Lyme Disease IgM Ab (Negative) COVID-19 Eval Order SARS-CoV-2 (PCR) NEGATIVE (Negative) Imaging Data Attestation: I personally reviewed and interpreted this imaging study as follows: My Impression: Dust x-rayno acute infiltrate, failure, pneumothorax seen. Normal aortic knob Radiologist's Impression: Chest X-Ray 01/24/21 15:44 XR chest 1V portable CLINICAL HISTORY: syncope COMPARISON STUDY: Chest radiograph and chest CT June 05, 2020. FINDINGS: Lung volumes are normal. Lungs are clear. There is no pneumothorax or pleural effusion. Cardiac size is normal. Old right-sided rib fractures are incidentally noted. Callus formation adjacent to the right acromioclavicular joint suggests a healing fracture. Mediastinal contours are normal. There is no evidence for pulmonary edema. IMPRESSION: No acute cardiopulmonary findings. ACT 112: Negative or not required by law. Electronically signed by: aSjan Ferrara M.D. 01/24/2021 4:20 PM Abdomen/Pelvis CTA 01/24/21 15:59 CHEST CTA for AORTIC DISSECTION, ABDOMEN AND PELVIS CTA FOR AORTIC DISSECTION CT DOSE: HISTORY: Fall. Syncope. Atypical chest pain. Generalized abdominal pain. eval for dissection TECHNIQUE: Multiaxial CT images of the chest, abdomen, and pelvis were performed both before and after the intravenous administration of contrast to evaluate the aorta. Maximal intensity projection images were also obtained. A dose lowering technique was utilized adhering to the principles of ALARA. COMPARISON STUDY: Abdomen and pelvis CT 06/05/2020. Chest abdomen and pelvis CTA 07/24/2017. FINDINGS: Chest CTA: There is a subacute healing distal right clavicle fracture. Old, healed bilateral rib fractures. Noncontrast imaging through the chest shows no evidence for an intramural hematoma within the thoracic aorta. Normal caliber thoracic aorta with no evidence for dissection. The main pulmonary arteries are patent. No mediastinal or hilar lymphadenopathy. No pleural or pericardial effusions. The heart is borderline enlarged. Mild diffuse bronchial wall thickening, unchanged. No pneumothorax. Stable 3 mm subpleural nodule within the left lower lobe on image 222. No focal lung consolidations to suggest pneumonia. Stable 4 mm subpleural nodule within the right middle lobe on image 199. Abdomen and pelvis CTA: Moderate stenosis of approximately 50% within the proximal bilateral renal arteries. The celiac and superior mesenteric arteries show no significant stenosis. The inferior mesenteric artery is also patent. There is moderate calcified plaque within the normal caliber abdominal aorta and iliac arteries. No evidence for stenosis or aneurysm. The liver, spleen, left adrenal gland, pancreas, gallbladder, and kidneys are within normal limits. No hydronephrosis. No retroperitoneal lymphadenopathy. Partially calcified right adrenal gland, unchanged. The bladder remains moderately distended. Bilateral total hip arthroplasties obscure the deep pelvic structures including the bladder. L2 vertebroplasty is again noted. This remains unchanged. No acute fractures within the visualized osseous structures. Mild subcutaneous fat stranding within the right flank. This favors a small soft tissue in jury/contusion. No hematoma identified. Colonic diverticulosis. No evidence for acute diverticulitis. No bowel wall thickening or obstruction. Normal appendix. IMPRESSION: 1. No evidence for an aortic dissection. 2. Moderate stenosis at the proximal bilateral renal arteries due to the calcified plaque. 3. Mild subcutaneous fat stranding within the right flank. This favors a small soft tissue injury/contusion. 4. Distended bladder, unchanged. 5. Subacute/healing distal right clavicle fracture. 6. Additional findings as described above. ACT 112: Negative or not required by law. Electronically signed by: Jonathan Correa M.D. 01/24/2021 5:55 PM Chest CTA 01/24/21 15:59 CHEST CTA for AORTIC DISSECTION, ABDOMEN AND PELVIS CTA FOR AORTIC DISSECTION CT DOSE: HISTORY: Fall. Syncope. Atypical chest pain. Generalized abdominal pain. eval for dissection TECHNIQUE: Multiaxial CT images of the chest, abdomen, and pelvis were performed both before and after the intravenous administration of contrast to evaluate the aorta. Maximal intensity projection images were also obtained. A dose lowering technique was utilized adhering to the principles of ALARA. COMPARISON STUDY: Abdomen and pelvis CT 06/05/2020. Chest abdomen and pelvis CTA 07/24/2017. FINDINGS: Chest CTA: There is a subacute healing distal right clavicle fracture. Old, healed bilateral rib fractures. Noncontrast imaging through the chest shows no evidence for an intramural hematoma within the thoracic aorta. Normal caliber thoracic aorta with no evidence for dissection. The main pulmonary arteries are patent. No mediastinal or hilar lymphadenopathy. No pleural or pericardial effusions. The heart is borderline enlarged. Mild diffuse bronchial wall thickening, unchanged. No pneumothorax. Stable 3 mm subpleural nodule within the left lower lobe on image 222. No focal lung consolidations to suggest pneumonia. Stable 4 mm subpleural nodule within the right middle lobe on image 199. Abdomen and pelvis CTA: Moderate stenosis of approximately 50% within the proximal bilateral renal arteries. The celiac and superior mesenteric arteries show no significant stenosis. The inferior mesenteric artery is also patent. There is moderate calcified plaque within the normal caliber abdominal aorta and iliac arteries. No evidence for stenosis or aneurysm. The liver, spleen, left adrenal gland, pancreas, gallbladder, and kidneys are within normal limits. No hydronephrosis. No retroperitoneal lymphadenopathy. Partially calcified right adrenal gland, unchanged. The bladder remains moderately distended. Bilateral total hip arthroplasties obscure the deep pelvic structures including the bladder. L2 vertebroplasty is again noted. This remains unchanged. No acute fractures within the visualized osseous structures. Mild subcutaneous fat stranding within the right flank. This favors a small soft tissue injury/contusion. No hematoma identified. Colonic diverticulosis. No evidence for acute diverticulitis. No bowel wall thickening or obstruction. Normal appendix. IMPRESSION: 1. No evidence for an aortic dissection. 2. Moderate stenosis at the proximal bilateral renal arteries due to the calcified plaque. 3. Mild subcutaneous fat stranding within the right flank. This favors a small soft tissue injury/contusion. 4. Distended bladder, unchanged. 5. Subacute/healing distal right clavicle fracture. 6. Additional findings as described above. ACT 112: Negative or not required by law. Electronically signed by: Jonathan Correa M.D. 01/24/2021 5:[address] 01/24/21 15:[address] DOSE: HISTORY: syncope TECHNIQUE: Multiaxial CT images of the head were performed without the use of intravenous contrast. Automated exposure control was utilized for this study. A dose lowering technique was utilized adhering to the principles of ALARA. Comparison: Head CT 06/05/2020. Findings: Mild mucosal thickening within the ethmoid air cells. The mastoid air cells are clear. Stable 4 mm colloid cyst again noted on image 14. Stable mild prominence of the third ventricle. There is no hematoma or acute infarct. 2 mm of left midline shift, unchanged. Old left frontal lobe infarct is also unchanged. Impression: 1. No acute infarct or acute hemorrhage identified. 2. Old left frontal lobe infarct, unchanged. 3. Stable 4 mm colloid cyst. ACT 112: Negative or not required by law. Electronically signed by: Jonathan Correa M.D. 01/24/2021 5:22 PM Head CTA 06/03/21 15:59 CT ANGIOGRAM OF THE BRAIN; CT ANGIOGRAM OF THE NECK CLINICAL HISTORY: Syncope. Weakness. COMPARISON STUDY: Unenhanced CT of the brain dated 01/24/2021. CT of the head and neck dated 06/05/2020. TECHNIQUE: Follow-up the IV administration of 120 of Optiray 350, CT angiogram of the head and neck was performed from the aortic arch to the vertex. Images are reviewed in the axial, sagittal, and coronal planes. 3-D MIPS images are created and assessed. IV contrast was administered without complication. All measurements were calculated based on NASCET criteria. A dose lowering te chnique was utilized adhering to the principles of ALARA. CT DOSE: 3935.01 mGy.cm FINDINGS: Brain parenchyma: There is age-related involutional change noting mild subcortical and periventricular microangiopathic disease. Left frontal encephalomalacia is consistent with a remote infarct. A small colloid cyst is again seen at the roof of the third ventricle. There is no hemorrhage, mass effect, or evidence of acute territorial ischemia by CT criteria. There is no evidence of enhancing mass lesion on the angiogram phase images. The ventricles, sulci, and cisterns are prominent secondary to involutional change. Bridges-white matter differentiation is preserved. No extra-axial fluid collection is seen. Thoracic aorta: Visualized portions of the thoracic aorta are normal in caliber. The aortic arch demonstrates standard 3-vessel anatomy. Right carotid arterial system: The right common carotid artery is widely patent. A stent is present in the proximal right internal carotid artery. The stent is patent. The right internal and carotid arteries are patent. Left carotid arterial system: The left common carotid artery is patent noting atherosclerotic plaque and irregularity with less than 50% luminal narrowing distally. The left external carotid artery is widely patent. 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 Vertebral arteries: There is high-grade stenosis at the origin of the left vertebral artery. The vertebral arteries are otherwise patent bilaterally noting left-sided dominance. Subclavian arteries: Widely patent bilaterally. Intracranial vasculature: The right internal carotid artery is patent at the skull base. 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 There is reconstitution of flow at the [place] are the anterior to indicating artery. The anterior and middle cerebral arteries are patent bilaterally. The vertebrobasilar system and posterior cerebral arteries are widely patent. The left vertebral artery is dominant. There is no aneurysm, high-grade stenosis, or focal vessel cut off seen throughout the intracranial circulation. Jugular veins: Patent bilaterally. Dural sinuses: Patent. Lung apices: Partially visualized upper lobe lung parenchyma appears clear. Soft tissues: The visualized pharyngeal soft tissues are normal in appearance noting angiographic phase technique. The oropharyngeal airway appears widely p atent. The salivary and thyroid glands are normal in appearance. No cervical lymphadenopathy is seen. Skeletal structures: The skeletal structures are osteopenic. The calvarium appears intact. The cervical spine is maintained noting multilevel spondylosis. No lytic or blastic lesion is seen. Orbits: The bony orbits are intact. Orbital contents are normal as visualized. Sinuses and mastoids: There is moderate mucosal thickening within the ethmoid sinuses. Mild mucosal thickening is seen in the right sphenoid sinus. The remaining paranasal sinuses are clear. The mastoid air cells are well pneumatized. IMPRESSION: 1. There is no evidence of hemorrhage, mass effect, or acute territorial ischemia by CT criteria noting angiographic phase technique. 2. 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 This is unchanged from previous. 3. There are intracranial vessels are otherwise patent. 4. A stent in the right internal carotid artery is patent. 5. 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 This is unchanged from previous. ACT 112: Negative or not required by law. Electronically signed by: Hernandez Sanches M.D. 01/24/2021 5:36 PM Neck CTA 01/24/21 15:59 CT ANGIOGRAM OF THE BRAIN; CT ANGIOGRAM OF THE NECK CLINICAL HISTORY: Syncope. Weakness. COMPARISON STUDY: Unenhanced CT of the brain dated 01/24/2021. CT of the head and neck dated 06/05/2020. TECHNIQUE: Follow-up the IV administration of 120 of Optiray 350, CT angiogram of the head and neck was performed from the aortic arch to the vertex. Images are reviewed in the axial, sagittal, and coronal planes. 3-D MIPS images are created and assessed. IV contrast was administered without complication. All measurements were calculated based on NASCET criteria. A dose lowering technique was utilized adhering to the principles of ALARA. CT DOSE: 3935.01 mGy.cm FINDINGS: Brain parenchyma: There is age-related involutional change noting mild subcortical and periventricular microangiopathic disease. Left frontal enc ephalomalacia is consistent with a remote infarct. A small colloid cyst is again seen at the roof of the third ventricle. There is no hemorrhage, mass effect, or evidence of acute territorial ischemia by CT criteria. There is no evidence of enhancing mass lesion on the angiogram phase images. The ventricles, sulci, and cisterns are prominent secondary to involutional change. Bridges-white matter diff erentiation is preserved. No extra-axial fluid collection is seen. Thoracic aorta: Visualized portions of the thoracic aorta are normal in caliber. The aortic arch demonstrates standard 3-vessel anatomy. Right carotid arterial system: The right common carotid artery is widely patent. A stent is present in the proximal right internal carotid artery. The stent is patent. The right internal and carotid arteries are patent. Left carotid arterial system: The left common carotid artery is patent noting atherosclerotic plaque and irregularity with less than 50% luminal narrowing distally. The left external carotid artery is widely patent. 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 Vertebral arteries: There is high-grade stenosis at the origin of the left vertebral artery. The vertebral arteries are otherwise patent bilaterally noting left-sided dominance. Subclavian arteries: Widely patent bilaterally. Intracranial vasculature: The right internal carotid artery is patent at the skull base. 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 There is reconstitution of flow at the [place] are the anterior to indicating artery. The anterior and middle cerebral arteries are patent bilaterally. The vertebrobasilar system and posterior cerebral arteries are widely patent. The left vertebral artery is dominant. There is no aneurysm, high-grade stenosis, or focal vessel cut off seen throughout the intracranial circulation. Jugular veins: Patent bilaterally. Dural sinuses: Patent. Lung apices: Partially visualized upper lobe lung parenchyma appears clear. Soft tissues: The visualized pharyngeal soft tissues are normal in appearance noting angiographic phase technique. The oropharyngeal airway appears widely patent. The salivary and thyroid glands are normal in appearance. No cervical lymphadenopathy is seen. Skeletal structures: The skeletal structures are osteopenic. The calvarium appears intact. The cervical spine is maintained noting multilevel spondylosis. No lytic or blastic lesion is seen. Orbits: The bony orbits are intact. Orbital contents are normal as visualized. Sinuses and mastoids: There is moderate mucosal thickening within the ethmoid sinuses. Mild mucosal thickening is seen in the right sphenoid sinus. The remaining paranasal sinuses are clear. The mastoid air cells are well pneumatized. IMPRESSION: 1. There is no evidence of hemorrhage, mass effect, or acute territorial ischemia by CT criteria noting angiographic phase technique. 2. 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 This is unchanged from previous. 3. There are intracranial vessels are otherwise patent. 4. A stent in the right internal carotid artery is patent. 5. 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 This is unchanged from previous. ACT 112: Negative or not required by law. Electronically signed by: Hernandez Sanches M.D. 01/24/2021 5:36 PM Hand X-Ray 01/24/21 17:23 RIGHT HAND 3 VIEWS CLINICAL HISTORY: Right hand pain. FINDINGS: 3 views of the right hand are correlated with radiographs of the right wrist dated 05/18/2019. The skeletal structures are well mineralized. There is dorsal dislocation at the fourth proximal interphalangeal joint with surrounding soft tissue edema. A tiny avulsion fracture suggested along the ulnar aspect of the head of the fourth proximal phalanx. There is chronic posttraumatic deformity of the distal radius. Mild osteoarthritic change is present in the interphalangeal joints, distal greater than proximal. IMPRESSION: 1. Dislocation at the fourth proximal interphalangeal joint with overlying soft tissue edema. 2. Suspect a tiny avulsion fracture at the fourth PIP. 3. Mild degenerative and chronic posttraumatic change as above. Electronically signed by: Hernandez Sanches M.D. 01/24/2021 5:42 PM ECG Data Attestation: I personally reviewed and interpreted this ECG as follows: Indication: + syncope Rate (beats per minute): 50 Rhythm: + normal sinus ECG Intervals/blocks: + Normal QRS, + Normal QT and + Normal VT ECG [place]: + Normal ECG ST segments: + Normal ST segments ECG Findings: no PACs and no PVCs Comparison ECG Date: from (06/05/20) Change: no significant change MDM Narrative This patient comes in as described above. He was placed in room C7. I saw the patient promptly he. He had a apparent syncopal episode in the shower is very complex medical history routing several strokes as well as an aortic dissection. He has no chest pain he has lower back pain from where he fell. He has no new numbness or weakness and seems to be back at his normal baseline now. It is possible this could've been a CVA or stroke but I don't think he is a good TPA candidate given the fact that he has aortic dissection history as well as being on Plavix and other comorbidities. His agrees. He has no white count or fever to suggest infection. No significant anemia. Normal renal function and electrolytes. In his complicated history I did order a CAT scan of the head as well as CTA of the head neck chest abdomen pelvis to rule out vascular abnormality/aortic abnormalities and other traumatic and intro abdominal abnormalities. His CAT scans were unremarkable for any acute findings. He does have some chronic vascular abnormalities but nothing acute. He has a normal- appearing aorta. He has no white count or fever discussed infection. Covid testing was negative. EKG shows sinus bradycardia and his troponin is not elevated. His blood alcohol was elevated and that could have caused some of his symptoms. He does tend to drink but hit both the patient is tell me he does not get any withdrawal symptoms such as shakiness or seizures if he does not drink. I do think given his syncopal episode in the fact that he was ashen and unresponsive, I am concerned that it could have been arrhythmia or other pathology. I have consulted the [facility] hospitalist team to see him in the ER for these measures/admission/observation. Continuous cardiac monitoring: An order was placed in the EMR for continuous cardiac monitoring. Upon my interpretation, the patient was noted to be in sinus bradycardia with a rate of 50. Impression & Plan Syncope, Lab test negative for COVID-19 virus, History of cardioembolic cerebrovascular accident (CVA), Alcohol intoxication, Weakness, History of aortic dissection Discharge Plan Visit Data Chief Complaint: Syncope Stated Complaint: SYNCOPE ED Provider: Luis Felipe Corrales Discharge Problem: Syncope, Lab test negative for COVID-19 virus, History of cardioembolic cerebrovascular accident (CVA), Alcohol intoxication, Weakness, History of aort ic dissection Discharge Instructions Interventions: ED Discharge Assessment Last Done: 01/24/21 21:18 Discharge Problem: Syncope Qualifiers: Syncope type: unspecified Qualified Code(s): R55 - Syncope and collapse Alcohol intoxication Qualifiers: Complication of substance-induced condition: uncomplicated Qualified Code(s): F10.920 - Alcohol use, unspecified with intoxication, uncomplicated
[2021-01-24 15:58] LABS: Basophils # (auto) 0.07 K/uL (0-0.2); Basophils % (auto) 0.8 %; Eosinophils # (auto) 0.34 K/uL (0-0.5); Hematocrit (blood only) 39.2 % (42-52); Hemoglobin 13.6 g/dL (14.0-18.0); Immature Granulocytes # (auto) 0.03 K/uL (0.00-0.02); Immature Granulocytes % (auto) 0.3 %; Lymphocytes # (auto) 2.72 K/uL (1.2-3.4); Lymphocytes % (auto) 31.7 %; Mean Corpuscular Hemoglobin 31.4 pg (25-34); Mean Corpuscular Hgb Conc 34.7 g/dL (32-36); Mean Corpuscular Volume 90.5 fL (80-100); Mean Platelet Volume 8.5 fL (7.4-10.4); Monocytes # (auto) 0.79 K/uL (0.11-0.59); Monocytes % (auto) 9.2 %; Neutrophils # (auto) 4.63 K/uL (1.4-6.5); Platelet Count 177 K/uL (130-400); RDW Coefficient of Variation 13.2 % (11.5-14.5); RDW Standard Deviation 43.3 fL (36.4-46.3); Red Blood Count 4.33 M/uL (4.7-6.1); White Blood Count 8.58 K/uL (4.8-10.8)
[2021-01-24 16:06] LABS: Alanine Aminotransferase 23 U/L (12-78); Albumin Level 3.2 gm/dl (3.4-5.0); Aspartate Aminotransferase 15 U/L (15-37); BUN Creatinine Ratio 8.4 (10-20); Blood Urea Nitrogen 7 mg/dl (7-18); Carbon Dioxide 24 mmol/L (21-32); Chloride 101 mmol/L (98-107); Creatinine Clr Calc Pharmacy 100.4 ml/min; Est GFR (African American) 104.2 ml/min; Est GFR (Non-African American) 89.9 ml/min; Glucose 94 mg/dl (70-99); Magnesium 2.4 mg/dl (1.8-2.4); Potassium 3.5 mmol/L (3.5-5.1); Sodium 133 mmol/L (136-145)
[2021-01-24 16:11] LABS: Partial Thromboplastin Ratio 0.9; Partial Thromboplastin Time 22.8 Seconds (21.0-31.0); Prothrombin Time 9.8 Seconds (9.0-12.0)
[2021-01-24 16:17] LABS: Alkaline Phosphatase 59 U/L (45-117); Bilirubin,Total 0.2 mg/dl (0.2-1); Globulin 3.1 gm/dl (2.5-4.0); Total Protein 6.3 gm/dl (6.4-8.2); Troponin I < 0.015 ng/ml (0-0.045)
--- NOTE | 2021-01-24 16:22 | XRay Report ---
XR chest 1V portable CLINICAL HISTORY: syncope COMPARISON STUDY: Chest radiograph and chest CT June 05, 2020. FINDINGS: Lung volumes are normal. Lungs are clear. There is no pneumothorax or pleural effusion. Car diac size is normal. Old right-sided rib fractures are incidentally noted. Callus formation adjacent to the right acromioclavicular joint suggests a healing fracture. Mediastinal contours are normal. Th ere is no evidence for pulmonary edema. IMPRESSION: No acute cardiopulmonary findings. ACT 112: Negative or not required by law. Electronically signed by: Sajan Ferrara M.D. 01/24/2021 4:20 PM
[2021-01-24] MEDS ORDERED: OPTIRAY 350 500ml IV ONE (17:07)
--- NOTE | 2021-01-24 17:23 | CT Scan Report ---
HEAD CT NONCONTRAST CT DOSE: HISTORY: syncope TECHNIQUE: Multiaxial CT images of the head were performed without the use of intravenous contrast. A utomated exposure control was utilized for this study. A dose lowering technique was utilized adheri ng to the principles of ALARA. Comparison: Head CT 06/05/2020. Findings: Mild mucosal thickening within the ethmoid air cells. The mastoid air cells are clear. Stab le 4 mm colloid cyst again noted on image 14. Stable mild prominence of the third ventricle. There is no hematoma or acute infarct. 2 mm of left midline shift, unchanged. Old left frontal lobe infarct i s also unchanged. Impression: 1. No acute infarct or acute hemorrhage identified. 2. Old left frontal lobe infarct, unchanged. 3. Stable 4 mm colloid cyst. ACT 112: Negative or not required by law. Electronically signed by: Jonathan Correa M.D. 01/24/2021 5:22 PM
--- NOTE | 2021-01-24 17:38 | CT Scan Report ---
CT ANGIOGRAM OF THE BRAIN; CT ANGIOGRAM OF THE NECK CLINICAL HISTORY: Syncope. Weakness. COMPARISON STUDY: Unenhanced CT of the brain dated 01/24/2021. CT of the head and neck dated 0. TECHNIQUE: Follow-up the IV administration of 120 of Optiray 350, CT angiogram of the head and neck w as performed from the aortic arch to the vertex. Images are reviewed in the axial, sagittal, and evelyne nal planes. 3-D MIPS images are created and assessed. IV contrast was administered without complicati on. All measurements were calculated based on NASCET criteria. A dose lowering technique was utilize d adhering to the principles of ALARA. CT DOSE: 3935.01 mGy.cm FINDINGS: Brain parenchyma: There is age-related involutional change noting mild subcortical and periventricula r microangiopathic disease. Left frontal encephalomalacia is consistent with a remote infarct. A smal l colloid cyst is again seen at the roof of the third ventricle. There is no hemorrhage, mass effect, or evidence of acute territorial ischemia by CT criteria. There is no evidence of enhancing mass les ion on the angiogram phase images. The ventricles, sulci, and cisterns are prominent secondary to inv olutional change. Bridges-white matter differentiation is preserved. No extra-axial fluid collection is seen. Thoracic aorta: Visualized portions of the thoracic aorta are normal in caliber. The aortic arch demo nstrates standard 3-vessel anatomy. Right carotid arterial system: The right common carotid artery is widely patent. A stent is present i n the proximal right internal carotid artery. The stent is patent. The right internal and carotid art eries are patent. Left carotid arterial system: The left common carotid artery is patent noting atherosclerotic plaque and irregularity with less than 50% luminal narrowing distally. The left external carotid artery is w idely patent. 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 Vertebral arteries: There is high-grade stenosis at the origin of the left vertebral artery. The vert ebral arteries are otherwise patent bilaterally noting left-sided dominance. Subclavian arteries: Widely patent bilaterally. Intracranial vasculature: The right internal carotid artery is patent at the skull base. There is com plete thrombosis of the left internal carotid artery at the skull base. There is reconstitution of fl ow at the [place] are the anterior to indicating artery. The anterior and middle cerebral ar teries are patent bilaterally. The vertebrobasilar system and posterior cerebral arteries are widely patent. The left vertebral artery is dominant. There is no aneurysm, high-grade stenosis, or focal ve ssel cut off seen throughout the intracranial circulation. Jugular veins: Patent bilaterally. Dural sinuses: Patent. Lung apices: Partially visualized upper lobe lung parenchyma appears clear. Soft tissues: The visualized pharyngeal soft tissues are normal in appearance noting angiographic pha se technique. The oropharyngeal airway appears widely patent. The salivary and thyroid glands are nor mal in appearance. No cervical lymphadenopathy is seen. Skeletal structures: The skeletal structures are osteopenic. The calvarium appears intact. The cervic al spine is maintained noting multilevel spondylosis. No lytic or blastic lesion is seen. Orbits: The bony orbits are intact. Orbital contents are normal as visualized. Sinuses and mastoids: There is moderate mucosal thickening within the ethmoid sinuses. Mild mucosal t hickening is seen in the right sphenoid sinus. The remaining paranasal sinuses are clear. The mastoid air cells are well pneumatized. IMPRESSION: 1. There is no evidence of hemorrhage, mass effect, or acute territorial ischemia by CT criteria noti ng angiographic phase technique. 2. 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 This is unchanged from previous. 3. There are intracranial vessels are otherwise patent. 4. A stent in the right internal carotid artery is patent. 5. 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 This is unchanged from pr evious. ACT 112: Negative or not required by law. Electronically signed by: Hernandez Sanches M.D. 01/24/2021 5:36 PM
--- NOTE | 2021-01-24 17:43 | XRay Report ---
RIGHT HAND 3 VIEWS CLINICAL HISTORY: Right hand pain. FINDINGS: 3 views of the right hand are correlated with radiographs of the right wrist dated 9. The skeletal structures are well mineralized. There is dorsal dislocation at the fourth proximal i nterphalangeal joint with surrounding soft tissue edema. A tiny avulsion fracture suggested along the ulnar aspect of the head of the fourth proximal phalanx. There is chronic posttraumatic deformity of the distal radius. Mild osteoarthritic change is present in the interphalangeal joints, distal great er than proximal. IMPRESSION: 1. Dislocation at the fourth proximal interphalangeal joint with overlying soft tissue edema. 2. Suspect a tiny avulsion fracture at the fourth PIP. 3. Mild degenerative and chronic posttraumatic change as above. Electronically signed by: Hernandez Sanches M.D. 01/24/2021 5:42 PM
--- NOTE | 2021-01-24 17:56 | CT Scan Report ---
CHEST CTA for AORTIC DISSECTION, ABDOMEN AND PELVIS CTA FOR AORTIC DISSECTION CT DOSE: HISTORY: Fall. Syncope. Atypical chest pain. Generalized abdominal pain. eval for dissection TECHNIQUE: Multiaxial CT images of the chest, abdomen, and pelvis were performed both before and afte r the intravenous administration of contrast to evaluate the aorta. Maximal intensity projection imag es were also obtained. A dose lowering technique was utilized adhering to the principles of ALARA. COMPARISON STUDY: Abdomen and pelvis CT 06/05/2020. Chest abdomen and pelvis CTA 07/24/2017. FINDINGS: Chest CTA: There is a subacute healing distal right clavicle fracture. Old, healed bilateral rib frac tures. Noncontrast imaging through the chest shows no evidence for an intramural hematoma within the thoracic aorta. Normal caliber thoracic aorta with no evidence for dissection. The main pulmonary art eries are patent. No mediastinal or hilar lymphadenopathy. No pleural or pericardial effusions. The h eart is borderline enlarged. Mild diffuse bronchial wall thickening, unchanged. No pneumothorax. Stab le 3 mm subpleural nodule within the left lower lobe on image 222. No focal lung consolidations to stern ggest pneumonia. Stable 4 mm subpleural nodule within the right middle lobe on image 199. Abdomen and pelvis CTA: Moderate stenosis of approximately 50% within the proximal bilateral renal ar teries. The celiac and superior mesenteric arteries show no significant stenosis. The inferior mesent jovani artery is also patent. There is moderate calcified plaque within the normal caliber abdominal ao rta and iliac arteries. No evidence for stenosis or aneurysm. The liver, spleen, left adrenal gland, pancreas, gallbladder, and kidneys are within normal limits. No hydronephrosis. No retroperitoneal ly mphadenopathy. Partially calcified right adrenal gland, unchanged. The bladder remains moderately dis tended. Bilateral total hip arthroplasties obscure the deep pelvic structures including the bladder. L2 vertebroplasty is again noted. This remains unchanged. No acute fractures within the visualized os seous structures. Mild subcutaneous fat stranding within the right flank. This favors a small soft ti ssue injury/contusion. No hematoma identified. Colonic diverticulosis. No evidence for acute divertic ulitis. No bowel wall thickening or obstruction. Normal appendix. IMPRESSION: 1. No evidence for an aortic dissection. 2. Moderate stenosis at the proximal bilateral renal arteries due to the calcified plaque. 3. Mild subcutaneous fat stranding within the right flank. This favors a small soft tissue injury/con tusion. 4. Distended bladder, unchanged. 5. Subacute/healing distal right clavicle fracture. 6. Additional findings as described above. ACT 112: Negative or not required by law. Electronically signed by: Jonathan Correa M.D. 01/24/2021 5:55 PM
[2021-01-24 18:55] LABS: Appearance Urine Clear (Clear); Bilirubin Urine Negative (Negative); Blood Urine Negative (Negative); Color Urine Yellow; Glucose Urine UA Negative (Negative); Ketones Urine Negative (Negative); Leukocyte Esterase Urine Negative (Negative); Nitrite Urine Negative (Negative); Protein Urine Negative (Negative); Specific Gravity Urine 1.022 (1.000-1.030); Urobilinogen Urine Negative (Negative)
[2021-01-24] MEDS ORDERED: MULTI-VITAMIN INFUSION 10 ML, THIAMINE HCL 100 MG, FOLIC ACID 1 MG, POTASSIUM CHLORIDE ... IV ONE (20:15)
--- NOTE | 2021-01-24 20:35 | History & Physical Report ---
Date of Service January 24, 2021 Assessment & Plan (1) Syncope: Recurrent syncope/falls Multifactorial: Recurrent orthostasis ? Bradycardia, home beta-radha dose at a high dose relative to episodic slow heart rate also noted outpatient Alcohol abuse Anemia recent outpatient hemoglobin was 15.3 as of September 2020 Possibly from traumatic right flank contusion, right phalangeal fracture status post reduction at the ER Hypertension, BP on the lower side History CAD status post stent/PVD/hx CVA Hyperlipidemia, statin intolerance COPD as per records, pulmonary status at baseline DM2, on oral medications well controlled as of recent outpatient hemoglobin A1c 5.26 September 2019 Ongoing tobacco abuse OBS PCU IVF Decrease maintenance home beta-radha dose for now Hold home Amlodipine given borderline BP Cardiology consult Re: Cardiac medication management, recurrent orthostasis Anemia work-up, transfuse PRBC if hemoglobin less than 8 and or for symptomatic anemia Appropriate to hold home antiplatelet rx for now given hemoglobin drop, resume when hemoglobin stable Orthopedics consult Re: Right phalangeal fracture DT precautions, AWSS ISS BG goal [id number], update hemoglobin A1c Nicotine patch as needed DVT prophylaxis SCDs RE traumatic flank contusion possibly causing anemia Full code Patient's requesting updates providers. Maria Dolores Mau, contact #[phone]. Text document was generated using [employer] voice recognition software. It may contain grammatical or spelling errors. Kindly contact undersigned for clarification of any documentation item in question. History of Present Illness Chief Complaint: Fall, syncope Primary Care Provider: Terry Resendez MD As perHistory obtained from patient, family, and records. Patient is a fair historian. Medical history significant for CAD status post stent/PVD status post surgery/hx CVA, HTN, hyperlipidemia, statin intolerance, COPD as per records, DM2, on oral medications, ongoing tobacco/alcohol abuse. Last confinement [facility] May 2020 for strokelike symptoms. Patient has had recurrent lightheadedness symptoms especially on standing up since his stroke about 4 years ago as per . Lightheadedness symptoms occasionally leading to syncopal events and falls with subsequent bony injury despite patient being careful on getting up as per .. Last confinement at [facility] September 2020 for another syncopal event at [place] leading to head trauma and some shoulder injury. Patient noted to be orthostatic during confinement . Outpatient EEG within normal limits as per outpatient [facility] Neurology note October 2020. Subsequent ZIO patch monitoring requested by patient's [facility] real estate subagent showed patient triggered events correlated with sinus bradycardia and sinus rhythm ranging from 53 bpm to 71 bpm. No significant ventricular arrhythmias noted. No evidence of need for pacemaker or medication change at present as per outpatient Cardiology documentation. Patient was in the shower at home today when he noted lightheadedness symptoms followed by syncopal event. Patient rushed to him after hearing him fall. Patient complaining of back pain. No head trauma as per patient/ account. Patient subsequently became unresponsive and was noted to have raspy breathing and turned bridges as per . Transient jerking movement not GTC seizures noted by . No urinary incontinence as per . EMS alerted by . Patient more awake upon arrival of EMS. Patient denies headache, chest pain, S OB, cough. Complaining of right flank pain and right finger pain. Compliant with home medications. Not eating or drinking a lot as per patient . 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 Allergies Allergy/AdvReac Type Severity Reaction Status Date / Time Cipro Allergy Severe hives Verified 04/22/18 16:34 ciprofloxacin Allergy Severe hives Verified 01/24/21 16:00 simvastatin AdvReac Intermediate MUSCLE Verified 01/24/21 16:00 PAIN/WEAKNESS Cotrqxd-Mah-Fja Reductase AdvReac Intermediate MUSCLE Unverified 01/24/21 16:00 Inhibitor PAIN/WEAKNESS Home Medications Medication Instructions Recorded Confirmed Type cholecalciferol (vitamin D3) 1,000 inter.unit PO QAM #0 06/08/15 01/24/21 History clopidogrel 75 mg PO QAM #0 06/14/15 01/24/21 History duloxetine 60 mg PO HS #0 01/11/16 01/24/21 History cyclobenzaprine 10 mg PO TID PRN #0 08/19/16 01/24/21 History tamsulosin 0.4 mg PO QAM #0 07/24/17 01/24/21 History isosorbide mononitrate 60 mg PO QAM #0 tab 04/18/18 01/24/21 History metoprolol tartrate 50 mg PO BID #0 tab 04/18/18 01/24/21 History nitroglycerin 0.4 mg SUBLINGUAL DIRECTED PRN 04/18/18 01/24/21 History #0 folic acid 400 mcg PO QAM #0 04/22/18 01/24/21 History thiamine HCl (vitamin B1) 100 mg PO QAM #0 04/22/18 01/24/21 History tramadol 50 mg PO Q6H PRN #0 tab 04/22/18 01/24/21 History acetaminophen 1,000 mg PO Q6H PRN 10/02/18 01/24/21 History aspirin 81 mg PO QAM 10/02/18 01/24/21 History hydrocodone-acetaminophen 1 tab PO QID PRN 05/18/19 01/24/21 History metformin 500 mg PO QAM 06/05/20 01/24/21 History amlodipine 2.5 mg PO QAM 01/24/21 01/24/21 History Past Med/Surg History Medical History Alcohol use disorder ASCVD (arteriosclerotic cardiovascular disease) CAD (coronary artery disease) "S/p attempted PCI of a LAYER OUT of right coronary artery, procedure aborted due to 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 Chen" H/O: CVA (cerebrovascular accident) "2005; residual R sided weakness" Impotence of organic origin Left thalamic infarction "July 2017" Obesity (BMI 30-39.9) Osteoarthritis Statin intolerance Thoracic compression fracture Tobacco use disorder Surgical History H/O bilateral hip replacements "[address] Benavidez" H/O repair of rotator cuff "R side; 09/2006" Hx of tonsillectomy Previous back surgery Family History Other Heart disease Social History Smoking Status: Current every day smoker Cigarettes Per Day: 15-16; Second Hand Exposure: No; Hx Alcohol Use: Yes Alcohol type: beer Alcohol Intake Frequency: 4 or More x per/Week Alcohol Intake Frequency Comment: 2 cases per week Hx Substance Use: No Preferred Language: Puerto Rican Communication Ability: Effective Outbound Sales Professional Required: No Beliefs That Will Affect Care: None Current Living Situation: Spouse Current Living Situation Comment: Other Information That Helps Us Care for You: No Feels Safe at Home: Yes Safety Concerns: Feels Safe At This Time Assistive Devices: None Review of Systems Review of Systems: As per HPI, all 10 systems reviewed, all other ROS negative Physical Exam Physical Exam: GENERAL: Comfortable, somewhat laconic, obese, no respiratory distress SKIN: normal color, warm HEENT: Alopecia, [place] palpebral conjunctivae, no ptosis, dry buccal mucosa NECK : Supple, no tenderness CHEST : Decreased breath sounds, no tenderness HEART : Bradycardic, no obvious murmurs ABDOMEN: Some distention, nontender BACK : Minimal right flank tenderness EXTREMITIES : No LE swelling/tenderness, tender swelling right fourth digit, no other conspicuous deformities noted NEUROLOGIC : Coherent, no facial asymmetry, no other gross focality Results & Data Results & Data ([facility]) Vital Signs (Past 12 Hours) Vital Signs Temp Pulse Pulse Resp BP BP Pulse Ox 01/24/21 20:16 59 L 18 109/81 98 01/24/21 19:00 55 L 22 138/73 95 01/24/21 17:20 58 L 18 140/70 96 01/24/21 16:00 50 L 18 113/55 L 96 01/24/21 15:59 49 L 18 96 01/24/21 15:58 49 L 96 01/24/21 15:30 50 L 18 112/55 L 94 01/24/21 15:23 51 L 17 108/56 L 92 01/24/21 15:20 36.6 C 49 L 18 108/56 L 95 Laboratory Results Laboratory Results WBC 8.58 K/uL (4.8-10.8) 01/24/21 15:30 RBC 4.33 M/uL (4.7-6.1) L 01/24/21 15:30 Hgb 13.6 g/dL (14.0-18.0) L 01/24/21 15:30 Hct 39.2 % (42-52) L 01/24/21 15:30 MCV 90.5 fL (80-100) 01/24/21 15:30 MCH 31.4 pg (25-34) 01/24/21 15:30 MCHC 34.7 g/dL (32-36) 01/24/21 15:30 RDW Std Deviation 43.3 fL (36.4-46.3) 01/24/21 15:30 RDW Coeff of Keny 13.2 % (11.5-14.5) 01/24/21 15: Plt Count 177 K/uL (130-400) 01/24/21 15: MPV 8.5 fL (7.4-10.4) 01/24/21 15:30 Immature Gran % (Auto) 0.3 % 01/24/21 15:30 Neut % (Auto) 54.0 % 01/24/21 15:30 Lymph % (Auto) 31.7 % 01/24/21 15:30 [place] % (Auto) 9.2 % 01/24/21 15:30 Eos % (Auto) 4.0 % 01/24/21 15:30 Baso % (Auto) 0.8 % 01/24/21 15:30 Neut # (Auto) 4.63 K/uL (1.4-6.5) 01/24/21 15:30 Lymph # (Auto) 2.72 K/uL (1.2-3.4) 01/24/21 15:30 [place] # (Auto) 0.79 K/uL (0.11-0.59) H 01/24/21 15:30 Eos # (Auto) 0.34 K/uL (0-0.5) 01/24/21 15:30 Baso # (Auto) 0.07 K/uL (0-0.2) 01/24/21 15:30 Immature Gran # (Auto) 0.03 K/uL (0.00-0.02) H 01/24/21 15:30 PT 9.8 Seconds (9.0-12.0) 01/24/21 15:30 INR 1.0 (0.9-1.1) 01/24/21 15:30 APTT 22.8 Seconds (21.0-31.0) 01/24/21 15:30 PTT Ratio 0.9 01/24/21 15:30 Sodium 133 mmol/L (136-145) L 01/24/21 15:30 Potassium 3.5 mmol/L (3.5-5.1) 01/24/21 15:30 Chloride 101 mmol/L (98-107) 01/24/21 15:30 Carbon Dioxide 24 mmol/L (21-32) 01/24/21 15:30 Anion Gap 8.0 (3-11) 01/24/21 15:30 BUN 7 mg/dl (7-18) 01/24/21 15:30 Creatinine 0.87 mg/dl (0.6-1.4) 01/24/21 15:30 Est Cr Clr Drug Dosing 100.4 ml/min 01/24/21 15:30 Est GFR ( Amer) 104.2 ml/min 01/24/21 15:30 Est GFR (Non-Af Amer) 89.9 ml/min 01/24/21 15:30 BUN/Creatinine Ratio 8.4 (10-20) L 01/24/21 15:30 Glucose 94 mg/dl (70-99) 01/24/21 15:30 Calcium 8.0 mg/dl (8.5-10.1) L 01/24/21 15:30 Magnesium 2.4 mg/dl (1.8-2.4) 01/24/21 15:30 Total Bilirubin 0.2 mg/dl (0.2-1) 01/24/21 15:30 AST 15 U/L (15-37) 01/24/21 15:30 ALT 23 U/L (12-78) 01/24/21 15:30 Alkaline Phosphatase 59 U/L (45-117) 01/24/21 15:30 Troponin I < 0.015 ng/ml (0-0.045) 01/24/21 15:30 Total Protein 6.3 gm/dl (6.4-8.2) L 01/24/21 15:30 Albumin 3.2 gm/dl (3.4-5.0) L 01/24/21 15:30 Globulin 3.1 gm/dl (2.5-4.0) 01/24/21 15:30 Albumin/Globulin Ratio 1.0 (0.9-2) 01/24/21 15:30 TSH 2.070 uIu/ml (0.300-4.500) 01/24/21 15:30 Urine Color Yellow 01/24/21 17:45 Urine Appearance Clear (Clear) 01/24/21 17:45 Urine pH 6.0 (4.5-7.5) 01/24/21 17:45 Ur Specific Summers 1.022 (1.000-1.030) 01/24/21 17:45 Urine Protein Negative (Negative) 01/24/21 17:45 Urine Glucose (UA) Negative (Negative) 01/24/21 17:45 Urine Ketones Negative (Negative) 01/24/21 17:45 Urine Blood Negative (Negative) 01/24/21 17:45 Urine Nitrite Negative (Negative) 01/24/21 17:45 Urine Bilirubin Negative (Negative) 01/24/21 17:45 Urine Urobilinogen Negative (Negative) 01/24/21 17:45 Ur Leukocyte Esterase Negative (Negative) 01/24/21 17:45 Ethyl Alcohol mg/dL 178.0 mg/dl (0-3) H 01/24/21 16:03 COVID-19 Eval Order Covid19 at [facility] 01/24/21 16:10 SARS-CoV-2 (PCR) NEGATIVE (Negative) 01/24/21 16:10 Impressions Chest X-Ray 01/24/21 15:44 XR chest 1V portable CLINICAL HISTORY: syncope COMPARISON STUDY: Chest radiograph and chest CT June 05, 2020. FINDINGS: Lung volumes are normal. Lungs are clear. There is no pneumothorax or pleural effusion. Cardiac size is normal. Old right-sided rib fractures are incidentally noted. Callus formation adjacent to the right acromioclavicular joint suggests a healing fracture. Mediastinal contours are normal. There is no evidence for pulmonary edema. IMPRESSION: No acute cardiopulmonary findings. ACT 112: Negative or not required by law. Electronically signed by: Sajan Ferrara M.D. 01/24/2021 4:20 PM Abdomen/Pelvis CTA 01/24/21 15:59 CHEST CTA for AORTIC DISSECTION, ABDOMEN AND PELVIS CTA FOR AORTIC DISSECTION CT DOSE: HISTORY: Fall. Syncope. Atypical chest pain. Generalized abdominal pain. eval for dissection TECHNIQUE: Multiaxial CT images of the chest, abdomen, and pelvis were performed both before and after the intravenous administration of contrast to evaluate the aorta. Maximal intensity projection images were also obtained. A dose lowering technique was utilized adhering to the principles of ALARA. COMPARISON STUDY: Abdomen and pelvis CT 06/05/2020. Chest abdomen and pelvis CTA 07/24/2017. FINDINGS: Chest CTA: There is a subacute healing distal right clavicle fracture. Old, healed bilateral rib fractures. Noncontrast imaging through the chest shows no evidence for an intramural hematoma within the thoracic aorta. Normal caliber thoracic aorta with no evidence for dissection. The main pulmonary arteries are patent. No mediastinal or hilar lymphadenopathy. No pleural or pericardial effusions. The heart is borderline enlarged. Mild diffuse bronchial wall thickening, unchanged. No pneumothorax. Stable 3 mm subpleural nodule within the left lower lobe on image 222. No focal lung consolidations to suggest pneumonia. Stable 4 mm subpleural nodule within the right middle lobe on image 199. Abdomen and pelvis CTA: Moderate stenosis of approximately 50% within the proximal bilateral renal arteries. The celiac and superior mesenteric arteries show no significant stenosis. The inferior mesenteric artery is also patent. T here is moderate calcified plaque within the normal caliber abdominal aorta and iliac arteries. No evidence for stenosis or aneurysm. The liver, spleen, left adrenal gland, pancreas, gallbladder, and kidneys are within normal limits. No hydronephrosis. No retroperitoneal lymphadenopathy. Partially calcified right adrenal gland, unchanged. The bladder remains moderately distended. Bilateral total hip arthroplasties obscure the deep pelvic structures including the bladder. L2 vertebroplasty is again noted. This remains unchanged. No acute fractures within the visualized osseous structures. Mild subcutaneous fat stranding within the right flank. This favors a small soft tissue injury/contusion. No hematoma identified. Colonic diverticulosis. No evidence for acute diverticulitis. No bowel wall thickening or obstruction. Normal appendix. IMPRESSION: 1. No evidence for an aortic dissection. 2. Moderate stenosis at the proximal bilateral renal arteries due to the calcified plaque. 3. Mild subcutaneous fat stranding within the right flank. This favors a small soft tissue injury/contusion. 4. Distended bladder, unchanged. 5. Subacute/healing distal right clavicle fracture. 6. Additional findings as described above. ACT 112: Negative or not required by law. Electronically signed by: Jonathan Correa M.D. 01/24/2021 5:55 PM Chest CTA 01/24/21 15:59 CHEST CTA for AORTIC DISSECTION, ABDOMEN AND PELVIS CTA FOR AORTIC DISSECTION CT DOSE: HISTORY: Fall. Syncope. Atypical chest pain. Generalized abdominal pain. eval for dissection TECHNIQUE: Multiaxial CT images of the chest, abdomen, and pelvis were performed both before and after the intravenous administration of contrast to evaluate the aorta. Maximal intensity projection images were also obtained. A dose lowering technique was utilized adhering to the principles of ALARA. COMPARISON STUDY: Abdomen and pelvis CT 06/05/2020. Chest abdomen and pelvis CTA 07/24/2017. FINDINGS: Chest CTA: There is a subacute healing distal right clavicle fracture. Old, healed bilateral rib fractures. Noncontrast imaging through the chest shows no evidence for an intramural hematoma within the thoracic aorta. Normal caliber thoracic aorta with no evidence for dissection. The main pulmonary arteries are patent. No mediastinal or hilar lymphadenopathy. No pleural or pericardial effusions. The heart is borderline enlarged. Mild diffuse bronchial wall thickening, unchanged. No pneumothorax. Stable 3 mm subpleural nodule within the left lower lobe on image 222. No focal lung consolidations to suggest pneumonia. Stable 4 mm subpleural nodule within the right middle lobe on image 199. Abdomen and pelvis CTA: Moderate stenosis of approximately 50% within the proximal bilateral renal arteries. The celiac and superior mesenteric arteries show no significant stenosis. The inferior mesenteric artery is also patent. There is moderate calcified plaque within the normal caliber abdominal aorta and iliac arteries. No evidence for stenosis or aneurysm. The liver, spleen, left adrenal gland, pancreas, gallbladder, and kidneys are within normal limits. No hydronephrosis. No retroperitoneal lymphadenopathy. Partially calcified right adrenal gland, unchanged. The bladder remains moderately distended. Bilateral total hip arthroplasties obscure the deep pelvic structures including the bladder. L2 vertebroplasty is again noted. This remains unchanged. No acute fractures within the visualized osseous structures. Mild subcutaneous fat stranding within the right flank. This favors a small soft tissue injury/contusion. No hematoma identified. Colonic diverticulosis. No evidence for acute diverticulitis. No bowel wall thickening or obstruction. Normal appendix. IMPRESSION: 1. No evidence for an aortic dissection. 2. Moderate stenosis at the proximal bilateral renal arteries due to the calcified plaque. 3. Mild subcutaneous fat stranding within the right flank. This favors a small soft tissue injury/contusion. 4. Distended bladder, unchanged. 5. Subacute/healing distal right clavicle fracture. 6. Additional findings as described above. ACT 112: Negative or not required by law. Electronically signed by: Jonathan Correa M.D. 01/24/2021 5:[address] 01/24/21 15:[address] DOSE: HISTORY: syncope TECHNIQUE: Multiaxial CT images of the head were performed without the use of intravenous contrast. Automated exposure control was utilized for this study. A dose lowering technique was utilized adhering to the principles of ALARA. Comparison: Head CT 06/05/2020. Findings: Mild mucosal thickening within the ethmoid air cells. The mastoid air cells are clear. Stable 4 mm colloid cyst again noted on image 14. Stable mild prominence of the third ventricle. There is no hematoma or acute infarct. 2 mm of left midline shift, unchanged. Old left frontal lobe infarct is also unchanged. Impression: 1. No acute infarct or acute hemorrhage identified. 2. Old left frontal lobe infarct, unchanged. 3. Stable 4 mm colloid cyst. ACT 112: Negative or not required by law. Electronically signed by: Jonathan Correa M.D. 01/24/2021 5:22 PM Head CTA 01/24/21 15:59 CT ANGIOGRAM OF THE BRAIN; CT ANGIOGRAM OF THE NECK CLINICAL HISTORY: Syncope. Weakness. COMPARISON STUDY: Unenhanced CT of the brain dated 01/24/2021. CT of the head and neck dated 06/05/2020. TECHNIQUE: Follow-up the IV administration of 120 of Optiray 350, CT angiogram of the head and neck was performed from the aortic arch to the vertex. Images are reviewed in the axial, sagittal, and coronal planes. 3-D MIPS images are created and assessed. IV contrast was administered without complication. All measurements were calculated based on NASCET criteria. A dose lowering technique was utilized adhering to the principles of ALARA. CT DOSE: 3935.01 mGy.cm FINDINGS: Brain parenchyma: There is age-related involutional change noting mild subcortical and periventricular microangiopathic disease. Left frontal encephalomalacia is consistent with a remote infarct. A small colloid cyst is ag ain seen at the roof of the third ventricle. There is no hemorrhage, mass effect, or evidence of acute territorial ischemia by CT criteria. There is no evidence of enhancing mass lesion on the angiogram phase images. The ventricles, sulci, and cisterns are prominent secondary to involutional change. Bridges-white matter differentiation is preserved. No extra-axial fluid collection is seen. Thoracic aorta: Visualized portions of the thoracic aorta are normal in caliber. The aortic arch demonstrates standard 3-vessel anatomy. Right carotid arterial system: The right common carotid artery is widely patent. A stent is present in the proximal right internal carotid artery. The stent is patent. The right internal and carotid arteries are patent. Left carotid arterial system: The left common carotid artery is patent noting atherosclerotic plaque and irregularity with less than 50% luminal narrowing distally. The left external carotid artery is widely patent. 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 Vertebral arteries: There is high-grade stenosis at the origin of the left vertebral artery. The vertebral arteries are otherwise patent bilaterally noting left-sided dominance. Subclavian arteries: Widely patent bilaterally. Intracranial vasculature: The right internal carotid artery is patent at the skull base. 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 There is reconstitution of flow at the kiana of [place] are the anterior to indicating artery. The anterior and middle cerebral arteries are patent bilaterally. The vertebrobasilar system and posterior cerebral arteries are widely patent. The left vertebral artery is dominant. There is no aneurysm, high-grade stenosis, or focal vessel cut off seen throughout the intracranial circulation. Jugular veins: Patent bilaterally. Dural sinuses: Patent. Lung apices: Partially visualized upper lobe lung parenchyma appears clear. Soft tissues: The visualized pharyngeal soft tissues are normal in appearance noting angiographic phase technique. The oropharyngeal airway appears widely patent. The salivary and thyroid glands are normal in appearance. No cervical lymphadenopathy is seen. Skeletal structures: The skeletal structures are osteopenic. The calvarium appears intact. The cervical spine is maintained noting multilevel spondylosis. No lytic or blastic lesion is seen. Orbits: The bony orbits are intact. Orbital contents are normal as visualized. Sinuses and mastoids: There is moderate mucosal thickening within the ethmoid sinuses. Mild mucosal thickening is seen in the right sphenoid sinus. The remaining paranasal sinuses are clear. The mastoid air cells are well pneumatized. IMPRESSION: 1. There is no evidence of hemorrhage, mass effect, or acute territorial ischemia by CT criteria noting angiographic phase technique. 2. 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 This is unchanged from previous. 3. There are intracranial vessels are otherwise patent. 4. A stent in the right internal carotid artery is patent. 5. 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 This is unchanged from previous. ACT 112: Negative or not required by law. Electronically signed by: Hernandez Sanches M.D. 01/24/2021 5:36 PM Neck CTA 01/24/21 15:59 CT ANGIOGRAM OF THE BRAIN; CT ANGIOGRAM OF THE NECK CLINICAL HISTORY: Syncope. Weakness. COMPARISON STUDY: Unenhanced CT of the brain dated 01/24/2021. CT of the head and neck dated 06/05/2020. TECHNIQUE: Follow-up the IV administration of 120 of Optiray 350, CT angiogram of the head and neck was performed from the aortic arch to the vertex. Images are reviewed in the axial, sagittal, and coronal planes. 3-D MIPS images are created and assessed. IV contrast was administered without complication. All measurements were calculated based on NASCET criteria. A dose lowering technique was utilized adhering to the principles of ALARA. CT DOSE: 3935.01 mGy.cm FINDINGS: Brain parenchyma: There is age-related involutional change noting mild subcortic al and periventricular microangiopathic disease. Left frontal encephalomalacia is consistent with a remote infarct. A small colloid cyst is again seen at the roof of the third ventricle. There is no hemorrhage, mass effect, or evidence of acute territorial ischemia by CT criteria. There is no evidence of enhancing mass lesion on the angiogram phase images. The ventricles, sulci, and cisterns are prominent secondary to involutional change. Bridges-white matter differentiation is preserved. No extra-axial fluid collection is seen. Thoracic aorta: Visualized portions of the thoracic aorta are normal in caliber. The aortic arch demonstrates standard 3-vessel anatomy. Right carotid arterial system: The right common carotid artery is widely patent. A stent is present in the proximal right internal carotid artery. The stent is patent. The right internal and carotid arteries are patent. Left carotid arterial system: The left common carotid artery is patent noting atherosclerotic plaque and irregularity with less than 50% luminal narrowing distally. The left external carotid artery is widely patent. 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 Vertebral arteries: There is high-grade stenosis at the origin of the left vertebral artery. The vertebral arteries are otherwise patent bilaterally noting left-sided dominance. Subclavian arteries: Widely patent bilaterally. Intracranial vasculature: The right internal carotid artery is patent at the skull base. 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 There is reconstitution of flow at the kiana of [place] are the anterior to indicating artery. The anterior and middle cerebral arteries are patent bilaterally. The vertebrobasilar system and posterior cerebral arteries are widely patent. The left vertebral artery is dominant. There is no aneurysm, high-grade stenosis, or focal vessel cut off seen throughout the intracranial c irculation. Jugular veins: Patent bilaterally. Dural sinuses: Patent. Lung apices: Partially visualized upper lobe lung parenchyma appears clear. Soft tissues: The visualized pharyngeal soft tissues are normal in appearance noting angiographic phase technique. The oropharyngeal airway appears widely patent. The salivary and thyroid glands are normal in appearance. No cervical lymphadenopathy is seen. Skeletal structures: The skeletal structures are osteopenic. The calvarium appears intact. The cervical spine is maintained noting multilevel spondylosis. No lytic or blastic lesion is seen. Orbits: The bony orbits are intact. Orbital contents are normal as visualized. Sinuses and mastoids: There is moderate mucosal thickening within the ethmoid sinuses. Mild mucosal thickening is seen in the right sphenoid sinus. The remaining paranasal sinuses are clear. The mastoid air cells are well pneumatized. IMPRESSION: 1. There is no evidence of hemorrhage, mass effect, or acute territorial ischemia by CT criteria noting angiographic phase technique. 2. 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 This is unchanged from previous. 3. There are intracranial vessels are otherwise patent. 4. A stent in the right internal carotid artery is patent. 5. 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 This is unchanged from previous. ACT 112: Negative or not required by law. Electronically signed by: Hernandez Sanches M.D. 01/24/2021 5:36 PM Hand X-Ray 01/24/21 17:23 RIGHT HAND 3 VIEWS CLINICAL HISTORY: Right hand pain. FINDINGS: 3 views of the right hand are correlated with radiographs of the right wrist dated 05/18/2019. The skeletal structures are well mineralized. There is d orsal dislocation at the fourth proximal interphalangeal joint with surrounding soft tissue edema. A tiny avulsion fracture suggested along the ulnar aspect of the head of the fourth proximal phalanx. There is chronic posttraumatic deformity of the distal radius. Mild osteoarthritic change is present in the interphalangeal joints, distal greater than proximal. IMPRESSION: 1. Dislocation at the fourth proximal interphalangeal joint with overlying soft tissue edema. 2. Suspect a tiny avulsion fracture at the fourth PIP. 3. Mild degenerative and chronic posttraumatic change as above. Electronically signed by: Hernandez Sanches M.D. 01/24/2021 5:42 PM Diagnostic Findings EKG as per my interpretation: Rate 50, sinus bradycardia, normal axis, no ischemia (1) Syncope Syncope type: unspecified Qualified Code(s): R55 - Syncope and collapse
[2021-01-24 21:16] LABS: Lyme Ab IgG w/WB Rflx Negative (Negative)
[2021-01-24 21:17] LABS: Lyme Ab IgM w/WB Rflx Negative (Negative)
--- NOTE | 2021-01-24 22:07 | Emergency Department Note ---
ED Visit Note Addendum to ED visit The patient did have a deformity at the fourth IP joint. X-rays were obtained do show a dislocation. It was easily reduced by myself see below. He was splinted. He was neurologically neurovascularly intact. Procedure note-dislocation of fourth IP joint in finger/hand X-rays to confirm the dislocation. I applied gentle traction and the joint easily popped back in place. The patient tolerated the procedure well without difficulties or complications. After the procedure he had full range of motion and had no numbness or weakness and was neurologically neurovascular intact. There were no complications. He did not require any anesthesia. . : Syncope Qualifiers: Syncope type: unspecified Qualified Code(s): R55 - Syncope and collapse Alcohol intoxication Qualifiers: Complication of substance-induced condition: uncomplicated Qualified Code(s): F10.920 - Alcohol use, unspecified with intoxication, uncomplicated
[2021-01-24] MEDS ORDERED: PROMETHAZINE HCL 12.5 MG in SODIUM CHLORIDE 0.9% 50 ML IV PRN (22:26)
[2021-01-24] MEDS ORDERED: oxyCODONE HCL IR 5 MG TAB (IMMEDIATE RELEASE) PO PRN (22:26)
[2021-01-24] MEDS ORDERED: LORazepam 3 MG/6 ML VIAL IV PRN (22:26)
[2021-01-24] MEDS ORDERED: LORazepam 1 MG/2 ML VIAL IV PRN (22:26)
[2021-01-24] MEDS ORDERED: ATIVAN IV ALCOHOL WITHDRAWL IV PRN (22:26)
[2021-01-24] MEDS ORDERED: DULoxetine HCL 60 MG CAP PO SCH (22:26)
[2021-01-24] MEDS ORDERED: LORazepam 2 MG/4 ML VIAL IV PRN (22:26)
[2021-01-24] MEDS: METOPROLOL TARTRATE 100 MG TAB PO SCH (23:00)
[2021-01-24] MEDS: ACETAMINOPHEN 325 MG TAB PO PRN (23:33)
[2021-01-25] MEDS ORDERED: DEXTROSE 50% 50 ML SYRINGE IV PRN (03:32)
[2021-01-25] MEDS ORDERED: CARBOHYDRATES FOR HYPOGLYCEMIA PO PRN (03:32)
[2021-01-25] MEDS ORDERED: GLUCAGON FOR INJ 1 MG VIAL SQ PRN (03:32)
[2021-01-25] MEDS ORDERED: GLUCOSE 10 TABS/TUBE PO PRN (03:32)
[2021-01-25] MEDS ORDERED: GLUCOSE 40% GEL 15 GM TUBE PO PRN (03:32)
[2021-01-25 07:12] LABS: Basophils # (auto) 0.07 K/uL (0-0.2); Basophils % (auto) 0.8 %; Eosinophils # (auto) 0.26 K/uL (0-0.5); Hematocrit (blood only) 43.6 % (42-52); Hemoglobin 14.9 g/dL (14.0-18.0); Immature Granulocytes # (auto) 0.01 K/uL (0.00-0.02); Immature Granulocytes % (auto) 0.1 %; Lymphocytes # (auto) 1.98 K/uL (1.2-3.4); Lymphocytes % (auto) 23.2 %; Mean Corpuscular Hemoglobin 31.8 pg (25-34); Mean Corpuscular Hgb Conc 34.2 g/dL (32-36); Mean Corpuscular Volume 93.2 fL (80-100); Mean Platelet Volume 8.9 fL (7.4-10.4); Monocytes # (auto) 0.76 K/uL (0.11-0.59); Monocytes % (auto) 8.9 %; Neutrophils # (auto) 5.46 K/uL (1.4-6.5); Platelet Count 229 K/uL (130-400); RDW Coefficient of Variation 13.6 % (11.5-14.5); RDW Standard Deviation 46.5 fL (36.4-46.3); Red Blood Count 4.68 M/uL (4.7-6.1); Reticulocyte % 1.7 % (0.5-2.0); Reticulocytes # 0.08 10^6/uL (0.02-0.10); White Blood Count 8.54 K/uL (4.8-10.8)
[2021-01-25] MEDS: ACETAMINOPHEN 325 MG TAB PO PRN ×2 (07:43→14:23)
[2021-01-25 07:49] LABS: BUN Creatinine Ratio 9.5 (10-20); Creatinine Clr Calc Pharmacy 97.3 ml/min; Est GFR (African American) 103.7 ml/min; Est GFR (Non-African American) 89.5 ml/min; Potassium 4.9 mmol/L (3.5-5.1)
--- NOTE | 2021-01-25 07:50 | Electrocardiogram Report ---
Test Reason : Blood Pressure : / mmHG Vent. Rate : 050 BPM Atrial Rate : 050 BPM P-R Int : 168 ms QRS Dur : 102 ms QT Int : 490 ms P-R-T Axes : 085 074 074 degrees QTc Int : 446 ms Sinus bradycardia Otherwise normal ECG When compared with ECG of 05-JUN-2020 17:10, No significant change was found Confirmed by Prince Santiago ([id number]) on 01/25/2021 7:50:07 AM Referred By: REFERRED SELF Confirmed By:Prince Santiago
--- NOTE | 2021-01-25 08:06 | Cardiology Consultation ---
Date of Consultation January 25, 2021 Assessment & Plan (1) Syncope and collapse: Ongoing epidoses of syncope. Most recent episode ddescriptive Present on Admission?: Yes (2) Tobacco use disorder: 1 ppd smoker (3) Alcohol use disorder: 6-7 beers daily (4) H/O: CVA (cerebrovascular accident): (5) H/O carotid stenosis: History of carotid disease, with right carotid stent, patent, left internal carotid artery occlusion (6) CAD (coronary artery disease): Chronic RCA occlusion, attempted GIS TECHNICIAN PCI that was partially successful, plain balloon angioplasty performed but stents could not be accommodated, postprocedure had a stroke. Uncontrolled dyslipidemia, known statin intolerance. (7) Hypertension: Ongoing episodes of syncope prior to admission. Recent Zio monitor 10/2020 unremarkable. Does carry a history of CVA and seizure like activity, seizure has never been confirmed. Most recent syncopal episode likely congressional representative of orthostatic hypotension given his lack of water intake and increased alcohol intake. Patient does have a bradycardiac resting heart rate. Patient normally maintains on metoprolol 50 mg daily along with Norvasc 2.5 mg daily and Imdur 60 mg daily at home. EEG 10/2020 did not show any evidence of seizure activity per [facility] neurology. 1. Tele currently stable, Continue metoprolol tartrate 12.5 mg BID 2. Restart home dose of Norvasc 2.5 mg daily 3. Continue Imdur 60 mg daily 4. Update Echo this admission to rule out structural cause and to assess heart function. 5. Nursing to do orthostatic BPs daily 6. Given patients history of stroke and carotid artery disease- with worsening dizziness/syncope, will defer to neurology for added work up and advice restarting DAPT with ASA and Plavix. Supervising Physician Co-Signing Physician Notes I have seen and examined the patient. Reviewed the medical record and discussed the case with . I agree with the plan as outlined. The patient has a previous history of strokes and a neurology consult given his current symptoms is indicated. History of Present Illness Reason for Consultation: syncope and bradycardia [facility] Attending Physician: Marcio Polo MD History of Present Illness 65 year old male presented to [facility] due to syncope and collapse. Patient was showering at home when he became lightheaded which resulted in a syncopal event. States that prior to him getting into the shower he has a short episode of difficulty speaking. Patient was fully conscious during this episode. Shortly a fter patient got into the shower. He became dizzy and developed tunnel vision then sycopized. Patient did not hit his head during the fall per . Shortly after the fall patient became unresponsive and had course breathing. noted a jerking movement during that time. EMS was called- patient woke spontaneously upon arrive of EMS. States that normally his syncopal episodes happen for no rhyme or reason, but this specific episode there was warning. Patient admits to frequent dizziness with position changes. He is a daily 1ppd smoker and 6-7 beer daily alcohol drinker. Admits to drinking 2 glasses of water daily. He did admit to having and unknown amount of beers prior to his syncopal episode. Upon entrance into the room patient was relaxing comfortably supine in bed. Denies any currently complaints. Denies any similar episodes of dizziness of syncope. No exertional chest pain or shortness of breath. No orthopnea, PND, or increased lower extremity edema. No fever, chills, cough, hematochezia, melena, or hemoptysis. Tele monitor reviewed. Patient has been in sinus mei with an average heart rate between 61-58 bpm. This morning patient was hypertensive: 178/80, patient received 12.5 mg of metoprolol succinate and 60 mg of Imdur- recheck BP 169/80. EKG 01/24/2021- SB, 50 bpm Normally follows with Dr. Escamilla, last seen aprox. 6 months ago. Has a history of chronic coronary heart disease with chronic exertional angina, cerebrovascular disease (CVA x2), hypertension, dyslipidemia, intolerance to multiple cholesterol medication. -Outpatient EEG within normal limits as per outpatient [facility] Neurology note October 2020. -Subsequent ZIO patch 10/2020 monitoring showed patient triggered events correlated with sinus bradycardia and sinus rhythm ranging from 53 bpm to 71 bpm. No significant ventricular arrhythmias noted. No evidence of need for pacemaker or medication change at present as per outpatient Cardiology documentation. -Echo 05/27/2020- LVEF 50-55%, grade 1 diastolic dysfunction, No significant valve disease , known RCA territory scar Cardiac History: Chronic exertional angina Chronic RCA occlusion, attempted GIS TECHNICIAN PCI that was partially successful, plain balloon angioplasty performed but stents could not be accommodated, postprocedure had a stroke History of carotid disease, with right carotid stent, patent, left internal carotid artery occlusion Hypertension Significant dyslipidemia with intolerance to multiple medications Allergies Allergy/AdvReac Type Severity Reaction Status Date / Time Cipro Allergy Severe hives Verified 04/22/18 16:34 ciprofloxacin Allergy Severe hives Verified 01/24/21 16:00 simvastatin AdvReac Intermediate MUSCLE Verified 01/24/21 16:00 PAIN/WEAKNESS Dedjpkq-Tnj-Kuq Reductase AdvReac Intermediate MUSCLE Unverified 01/24/21 16:00 Inhibitor PAIN/WEAKNESS Home Medications Medication Instructions Recorded Confirmed Type cholecalciferol (vitamin D3) 1,000 inter.unit PO QAM #0 06/08/15 01/24/21 History clopidogrel 75 mg PO QAM #0 06/14/15 01/24/21 History duloxetine 60 mg PO HS #0 01/11/16 01/24/21 History cyclobenzaprine 10 mg PO TID PRN #0 08/19/16 01/24/21 History tamsulosin 0.4 mg PO QAM #0 07/24/17 01/24/21 History isosorbide mononitrate 60 mg PO QAM #0 tab 04/18/18 01/24/21 History metoprolol tartrate 50 mg PO BID #0 tab 04/18/18 01/24/21 History nitroglycerin 0.4 mg SUBLINGUAL DIRECTED PRN 04/18/18 01/24/21 History #0 folic acid 400 mcg PO QAM #0 04/22/18 01/24/21 History thiamine HCl (vitamin B1) 100 mg PO QAM #0 04/22/18 01/24/21 History tramadol 50 mg PO Q6H PRN #0 tab 04/22/18 01/24/21 History acetaminophen 1,000 mg PO Q6H PRN 10/02/18 01/24/21 History aspirin 81 mg PO QAM 10/02/18 01/24/21 History hydrocodone-acetaminophen 1 tab PO QID PRN 05/18/19 01/24/21 History metformin 500 mg PO QAM 06/05/20 01/24/21 History amlodipine 2.5 mg PO QAM 01/24/21 01/24/21 History Patient History Medical History Alcohol use disorder ASCVD (arteriosclerotic cardiovascular disease) CAD (coronary artery disease) "S/p attempted PCI of a GIS TECHNICIAN of right coronary artery, procedure aborted due to 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 Chen" H/O: CVA (cerebrovascular accident) "2005; residual R sided weakness" Impotence of organic origin Left thalamic infarction "July 2017" Obesity (BMI 30-39.9) Osteoarthritis Statin intolerance Thoracic compression fracture Tobacco use disorder Surgical History H/O bilateral hip replacements "[address] Benavidez" H/O repair of rotator cuff "R side; 09/2006" Hx of tonsillectomy Previous back surgery Family History Other Heart disease Social History Smoking Status: Current every day smoker Cigarettes Per Day: 15-16; Second Hand Exposure: No; Hx Alcohol Use: Yes Alcohol type: beer Alcohol Intake Frequency: 4 or More x per/Week Alcohol Intake Frequency Comment: 2 cases per week Hx Substance Use: No Preferred Language: Mohawk Communication Ability: Effective Aerospace Project Manager Required: No Beliefs That Will Affect Care: None Current Living Situation: Spouse Current Living Situation Comment: Other Information That Helps Us Care for You: No Feels Safe at Home: Yes Safety Concerns: Feels Safe At This Time Assistive Devices: None Review of Systems Review of Systems: All systems reviewed & are unremarkable except as noted in HPI & below Physical Exam Physical Exam: General: No acute distress. A+Ox3. HEENT: Normocephalic. Atraumatic. PERRL. EOMI. Conjunctiva and sclera clear. NECK: No carotid bruits. No JVD. Carotid upstrokes are brisk. Heart: RRR. S1 and S2 noted without murmur, rubs, gallops. PMI non displaced. Lungs: Clear to auscultation. No wheezes, rhonchi, rales. Abdomen: Normal bowel sounds. Soft. Nontender. No masses or organomegaly. No abdominal bruits. Extremities: No edema. No clubbing or cyanosis. Pulses: radial=2/4, posterior tibial=2/4, dorsalis pedis = 2/4. NEURO: No focal deficits. PSYCH: Normal. Results & Data ([facility]) Vital Signs (Past 12 Hours) Vital Signs Temp Pulse Pulse Resp BP Pulse Ox 01/25/21 03:46 36.6 C 66 18 159/80 H 95 01/24/21 23:09 36.8 C 56 L 18 134/74 95 01/24/21 21:39 36.6 C 56 L 16 136/68 96 01/24/21 21:08 57 L 18 154/74 H 97 01/24/21 20:56 55 L 18 154/83 H 96 01/24/21 20:16 59 L 18 109/81 98 (1) CAD (coronary artery disease) Associated angina: without angina Coronary Disease-Associated Artery/Lesion type: [place] artery [place] vs. transplanted heart: sioux heart Qualified Code(s): I25.10 - Atherosclerotic heart disease of sioux coronary artery without angina pectoris (2) Hypertension Hypertension type: essential hypertension Qualified Code(s): I10 - Essential (primary) hypertension
[2021-01-25] MEDS: METOPROLOL TARTRATE 100 MG TAB PO SCH (08:11)
[2021-01-25 08:35] LABS: Folate (Folic Acid) > 20.00 ng/ml (>5.38); Vitamin B12 476 pg/ml (193-986)
[2021-01-25] MEDS: INSULIN ASPART 100 UNITS/ML 3 ML PEN SC SCH ×3 (09:00→17:01)
[2021-01-25] MEDS ORDERED: ISOSORBIDE MONO EXTENDED REL 60 MG TABCR PO SCH (09:00)
[2021-01-25] MEDS ORDERED: FOLIC ACID 400 MCG TAB PO SCH (09:00)
[2021-01-25] MEDS ORDERED: MULTIVITAMIN TAB PO SCH (09:00)
[2021-01-25] MEDS ORDERED: TAMSULOSIN HCL 0.4 MG CAP PO SCH (09:00)
--- NOTE | 2021-01-25 09:03 | Orthopedic Consultation ---
Date of Service January 25, 2021 Assessment & Plan (1) Finger dislocation: I removed the splint and lara taped his finger today with the long finger. Its okay for him to begin some finger motion. We will get an xray of the ring finger to confirm reduction. The tape will need removed for this and then re-tape the finger. History of Present Illness Reason for Consultation: . right ring finger dislocation Requesting Physician: . Attending Physician: Marcio Polo MD .65 year old Right hand dominant male who had a syncopal episode yesterday in the shower. He did have pain and deformity of the right ring finger after this. Xrays in the ER showed a dorsal dislocation of the PIP joint. Reduction was done in the ER and he was splinted. Allergies Allergy/AdvReac Type Severity Reaction Status Date / Time Cipro Allergy Severe hives Verified 04/22/18 16:34 ciprofloxacin Allergy Severe hives Verified 01/24/21 16:00 simvastatin AdvReac Intermediate MUSCLE Verified 01/24/21 16:00 PAIN/WEAKNESS Yrkytqh-Wsf-Ske Reductase AdvReac Intermediate MUSCLE Unverified 01/24/21 16:00 Inhibitor PAIN/WEAKNESS Home Medications Medication Instructions Recorded Confirmed Type cholecalciferol (vitamin D3) 1,000 inter.unit PO QAM #0 06/08/15 01/24/21 History clopidogrel 75 mg PO QAM #0 06/14/15 01/24/21 History duloxetine 60 mg PO HS #0 01/11/16 01/24/21 History cyclobenzaprine 10 mg PO TID PRN #0 08/19/16 01/24/21 History tamsulosin 0.4 mg PO QAM #0 07/24/17 01/24/21 History isosorbide mononitrate 60 mg PO QAM #0 tab 04/18/18 01/24/21 History metoprolol tartrate 50 mg PO BID #0 tab 04/18/18 01/24/21 History nitroglycerin 0.4 mg SUBLINGUAL DIRECTED PRN 04/18/18 01/24/21 History #0 folic acid 400 mcg PO QAM #0 04/22/18 01/24/21 History thiamine HCl (vitamin B1) 100 mg PO QAM #0 04/22/18 01/24/21 History tramadol 50 mg PO Q6H PRN #0 tab 04/22/18 01/24/21 History acetaminophen 1,000 mg PO Q6H PRN 10/02/18 01/24/21 History aspirin 81 mg PO QAM 10/02/18 01/24/21 History hydrocodone-acetaminophen 1 tab PO QID PRN 05/18/19 01/24/21 History metformin 500 mg PO QAM 06/05/20 01/24/21 History amlodipine 2.5 mg PO QAM 01/24/21 01/24/21 History Past Med/Surg History Medical History Alcohol use disorder ASCVD (arteriosclerotic cardiovascular disease) CAD (coronary artery disease) "S/p attempted PCI of a LEAD JAVASCRIPT ENGINEER of right coronary artery, procedure aborted due to 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 Chen" H/O: CVA (cerebrovascular accident) "2005; residual R sided weakness" Impotence of organic origin Left thalamic infarction "July 2017" Obesity (BMI 30-39.9) Osteoarthritis Statin intolerance Thoracic compression fracture Tobacco use disorder Surgical History H/O bilateral hip replacements "[address] 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 Physical Exam .Splint removed. Obvious swelling of the ring finger. No deformity. Flexor and extensor tendons intact. NVI. skin intact. Results & Data Results & Data Laboratory Results . Diagnostic Findings . xrays show a dorsal dislocation of the PIP joint PG Care Time/CCT Total # of Minutes Spent Total Time Spent with Patient: Total time spent is greater than 50% in coordination of care (as documented) at patient's floor/unit and/or counseling patient: Coding Level of Care Code 84144 Inpt Consult Level 3 Diagnoses Finger dislocation S63.259A
--- NOTE | 2021-01-25 10:28 | XRay Report ---
RIGHT FOURTH FINGER 3 VIEWS CLINICAL HISTORY: Postreduction examination. FINDINGS: 3 views of the right fourth finger are correlated with radiographs of the right hand dated 01/24/2021. The skeletal structures are well mineralized. There has been successful reduction of the di slocated fourth proximal interphalangeal joint. A tiny avulsion fracture is seen at the dorsal base o f the fourth middle phalanx. The fragment is displaced located within the anterior joint space. Overl fiordaliza soft tissue edema is noted. No additional fracture is seen. The fourth metacarpophalangeal and i nterphalangeal joints are normal. IMPRESSION: 1. Successful reduction of the dislocated fourth proximal interphalangeal joint with judaism of n ear-anatomic alignment. 2. There is an avulsion fracture at the dorsal base of the fourth middle phalanx. The fragment is dis placed and located within the anterior joint space. Electronically signed by: Hernandez Sanches M.D. 01/25/2021 10:26 AM
[2021-01-25] MEDS ORDERED: amLODIPine BESYLATE 5 MG TAB PO ONE (10:45)
[2021-01-25] MEDS ORDERED: PERFLUTREN LIPID MICROSPHERE (DEFINITY) IV ONE (11:40)
[2021-01-25] MEDS ORDERED: LIDOCAINE 5% 1 PATCH TD SCH (12:30)
[2021-01-25] MEDS ORDERED: CLOPIDOGREL BISULFATE 75 MG TAB PO SCH (12:45)
[2021-01-25] MEDS ORDERED: ASPIRIN 81 MG ECTAB PO SCH (12:45)
[2021-01-25 12:46] LABS: Estimated Average Glucose 117 mg/dl; Hemoglobin A1C 5.7 % (4.5-5.6)
[2021-01-25 15:31] VITALS: BP 170/82; TEMP 98.4; O2SAT 96
--- NOTE | 2021-01-25 16:46 | Discharge Summary ---
Date of Service January 25, 2021 Admission HPI Per Admitting Provider As perHistory obtained from patient, family, and records. Patient is a fair historian. Medical history significant for CAD status post stent/PVD status post surgery/hx CVA, HTN, hyperlipidemia, statin intolerance, COPD as per records, DM2, on oral medications, ongoing tobacco/alcohol abuse. Last confinement [facility] May 2020 for strokelike symptoms. Patient has had recurrent lightheadedness symptoms especially on standing up since his stroke about 4 years ago as per . Lightheadedness symptoms occasionally leading to syncopal events and falls with subsequent bony injury despite patient being careful on getting up as per .. Last confinement at [facility] [place] September 2020 [facility] leading to head trauma and some shoulder injury. Patient noted to be orthostatic during confinement . Outpatient EEG within normal limits as per outpatient [facility] [place] October 2020. 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 No significant ventricular arrhythmias noted. No evidence of need for pacemaker or medication change at present as per outpatient Cardiology documentation. Patient was in the shower at home today when he noted lightheadedness symptoms followed by syncopal event. Patient rushed to him after hearing him fall. Patient complaining of back pain. No head trauma as per patient/ account. Patient subsequently became unresponsive and was noted to have raspy breathing and turned bridges as per . Transient jerking movement not GTC seizures noted by . No urinary incontinence as per . EMS alerted by . Patient more awake upon arrival of EMS. Patient denies headache, chest pain, S OB, cough. Complaining of right flank pain and right finger pain. Compliant with home medications. Not eating or drinking a lot as per patient . 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 Admission Exam Per Admitting Provider GENERAL: Comfortable, somewhat laconic, obese, no respiratory distress SKIN: normal color, warm HEENT: Alopecia, [place] palpebral conjunctivae, no ptosis, dry buccal mucosa NECK : Supple, no tenderness CHEST : Decreased breath sounds, no tenderness HEART : Bradycardic, no obvious murmurs ABDOMEN: Some distention, nontender BACK : Minimal right flank tenderness EXTREMITIES : No LE swelling/tenderness, tender swelling right fourth digit, no other conspicuous deformities noted NEUROLOGIC : Coherent, no facial asymmetry, no other gross focality Principal Diagnosis Syncope Bradycardia Finger dislocation: Discharge Exam General- No acute distress Head- atraumatic Eyes- PERRL, EOMI, ENT- oropharynx clear Neck- supple, no JVD Lungs- clear to auscultation Heart- regular rhythm; no murmur Abdomen- normal bowel sounds, soft, nontender Extremities- no calf tenderness Neuro- alert, oriented x 3; PERRL, EOMI; no facial palsy; no dysarthria Skin- warm & dry Discharge Data Allergies Allergy/AdvReac Type Severity Reaction Status Date / Time Cipro Allergy Severe hives Verified 04/22/18 16:34 ciprofloxacin Allergy Severe hives Verified 01/24/21 16:00 simvastatin AdvReac Intermediate MUSCLE Verified 01/24/21 16:00 PAIN/WEAKNESS Xrzalge-Mqb-Nyx Reductase AdvReac Intermediate MUSCLE Unverified 01/24/21 16:00 Inhibitor PAIN/WEAKNESS Consultations 01/24/21 19:00 ED Decision to Admit Stat 01/24/21 22:26 Consult Cardiology Routine Consult Orthopedic Surgery Routine Ordered Studies 01/24/21 15:59 CT angio abdomen pelvis w con Stat CT angio chest dissec wo/w con Stat CT angio head w con Stat CT angio neck with con Stat CT head/brain wo con Stat RIGHT FOURTH FINGER 3 VIEWS CLINICAL HISTORY: Postreduction examination. FINDINGS: 3 views of the right fourth finger are correlated with radiographs of the right hand dated 01/24/2021. The skeletal structures are well mineralized. There has been successful reduction of the dislocated fourth proximal interphalangeal joint. A tiny avulsion fracture is seen at the dorsal base of the fourth middle phalanx. The fragment is displaced located within the anterior joint space. Overlying soft tissue edema is noted. No additional fracture is seen. The fourth metacarpophalangeal and interphalangeal joints are normal. IMPRESSION: 1. Successful reduction of the dislocated fourth proximal interphalangeal joint with church of near-anatomic alignment. 2. There is an avulsion fracture at the dorsal base of the fourth middle phalanx. The fragment is displaced and located within the anterior joint space. Electronically signed by: Hernandez Sanches M.D. 01/25/2021 10:26 AM Dictated: 01/25/21 1023Transcribed: 01/25/21 1023 RIGHT HAND 3 VIEWS CLINICAL HISTORY: Right hand pain. FINDINGS: 3 views of the right hand are correlated with radiographs of the right wrist dated 05/18/2019. The skeletal structures are well mineralized. There is dorsal dislocation at the fourth proximal interphalangeal joint with surrounding soft tissue edema. A tiny avulsion fracture suggested along the ulnar aspect of the head of the fourth proximal phalanx. There is chronic posttraumatic deformity of the distal radius. Mild osteoarthritic change is present in the interphalangeal joints, distal greater than proximal. IMPRESSION: 1. Dislocation at the fourth proximal interphalangeal joint with overlying soft tissue edema. 2. Suspect a tiny avulsion fracture at the fourth PIP. 3. Mild degenerative and chronic posttraumatic change as above. Electronically signed by: Hernandez Sanches M.D. 01/24/2021 5:42 PM Dictated: 01/24/21 1740Transcribed: 01/24/[address] ANGIOGRAM OF THE BRAIN; CT ANGIOGRAM OF THE NECK CLINICAL HISTORY: Syncope. Weakness. COMPARISON STUDY: Unenhanced CT of the brain dated 01/24/2021. CT of the head and neck dated 06/05/2020. TECHNIQUE: Follow-up the IV administration of 120 of Optiray 350, CT angiogram of the head and neck was performed from the aortic arch to the vertex. Images are reviewed in the axial, sagittal, and coronal planes. 3-D MIPS images are created and assessed. IV contrast was administered without complication. All measurements were calculated based on NASCET criteria. A dose lowering technique was utilized adhering to the principles of ALARA. CT DOSE: 3935.01 mGy.cm FINDINGS: Brain parenchyma: There is age-related involutional change noting mild subcortical and periventricular microangiopathic disease. Left frontal encephalomalacia is consistent with a remote infarct. A small colloid cyst is again seen at the roof of the third ventricle. There is no hemorrhage, mass effect, or evidence of acute territorial ischemia by CT criteria. There is no evidence of enhancing mass lesion on the angiogram phase images. The ventricles, sulci, and cisterns are prominent secondary to involutional change. Bridges-white matter differentiation is preserved. No extra-axial fluid collection is seen. Thoracic aorta: Visualized portions of the thoracic aorta are normal in caliber. The aortic arch demonstrates standard 3-vessel anatomy. Right carotid arterial system: The right common carotid artery is widely patent. A stent is present in the proximal right internal carotid artery. The stent is patent. The right internal and carotid arteries are patent. Left carotid arterial system: The left common carotid artery is patent noting atherosclerotic plaque and irregularity with less than 50% luminal narrowing distally. The left external carotid artery is widely patent. 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 Vertebral arteries: There is high-grade stenosis at the origin of the left vertebral artery. The vertebral arteries are otherwise patent bilaterally noting left-sided dominance. Subclavian arteries: Widely patent bilaterally. Intracranial vasculature: The right internal carotid artery is patent at the sk ull base. 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 There is reconstitution of flow at the [place] are the anterior to indicating artery. The anterior and middle cerebral arteries are patent bilaterally. The vertebrobasilar system and posterior cerebral arteries are widely patent. The left vertebral artery is dominant. There is no aneurysm, high-grade stenosis, or focal vessel cut off seen throughout the intracranial circulation. Jugular veins: Patent bilaterally. Dural sinuses: Patent. Lung apices: Partially visualized upper lobe lung parenchyma appears clear. Soft tissues: The visualized pharyngeal soft tissues are normal in appearance noting angiographic phase technique. The oropharyngeal airway appears widely patent. The salivary and thyroid glands are normal in appearance. No cervical lymphadenopathy is seen. Skeletal structures: The skeletal structures are osteopenic. The calvarium appears intact. The cervical spine is maintained noting multilevel spondylosis. No lytic or blastic lesion is seen. Orbits: The bony orbits are intact. Orbital contents are normal as visualized. Sinuses and mastoids: There is moderate mucosal thickening within the ethmoid sinuses. Mild mucosal thickening is seen in the right sphenoid sinus. The remaining paranasal sinuses are clear. The mastoid air cells are well pneumatized. IMPRESSION: 1. There is no evidence of hemorrhage, mass effect, or acute territorial ischemia by CT criteria noting angiographic phase technique. 2. 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 This is unchanged from previous. 3. There are intracranial vessels are otherwise patent. 4. A stent in the right internal carotid artery is patent. 5. 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 This is unchanged from previous. ACT 112: Negative or not required by law. Electronically signed by: Hernandez Sanches M.D. 01/24/2021 5:36 PM Dictated: 01/24/21 1723Transcribed: 01/24/[address] ANGIOGRAM OF THE BRAIN; CT ANGIOGRAM OF THE NECK CLINICAL HISTORY: Syncope. Weakness. COMPARISON STUDY: Unenhanced CT of the brain dated 01/24/2021. CT of the head and neck dated 06/05/2020. TECHNIQUE: Follow-up the IV administration of 120 of Optiray 350, CT angiogram of the head and neck was performed from the aortic arch to the vertex. Images are reviewed in the axial, sagittal, and coronal planes. 3-D MIPS images are created and assessed. IV contrast was administered without complication. All measurements were calculated based on NASCET criteria. A dose lowering technique was utilized adhering to the principles of ALARA. CT DOSE: 3935.01 mGy.cm FINDINGS: Brain parenchyma: There is age-related involutional change noting mild subcortical and periventricular microangiopathic disease. Left frontal encephalomalacia is consistent with a remote infarct. A small colloid cyst is again seen at the roof of the third ventricle. There is no hemorrhage, mass effect, or evidence of acute territorial ischemia by CT criteria. There is no evidence of enhancing mass lesion on the angiogram phase images. The ventricles, sulci, and cisterns are prominent secondary to involutional change. Bridges-white matter differentiation is preserved. No extra-axial fluid collection is seen. Thoracic aorta: Visualized portions of the thoracic aorta are normal in caliber. The aortic arch demonstrates standard 3-vessel anatomy. Right carotid arterial system: The right common carotid artery is widely patent. A stent is present in the proximal right internal carotid artery. The stent is patent. The right internal and carotid arteries are patent. Left carotid arterial system: The left common carotid artery is patent noting atherosclerotic plaque and irregularity with less than 50% luminal narrowing distally. The left external carotid artery is widely patent. 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 Vertebral arteries: There is high-grade stenosis at the origin of the left vertebral artery. The vertebral arteries are otherwise patent bilaterally noting left-sided dominance. Subclavian arteries: Widely patent bilaterally. Intracranial vasculature: The right internal carotid artery is patent at the skull base. 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 There is reconstitution of flow at the [place] are the anterior to indicating artery. The anterior and middle cerebral arteries are patent bilaterally. The vertebrobasilar system and posterior cerebral arteries are widely patent. The left vertebral artery is dominant. There is no aneurysm, high-grade stenosis, or focal vessel cut off seen throughout the intracranial circulation. Jugular veins: Patent bilaterally. Dural sinuses: Patent. Lung apices: Partially visualized upper lobe lung parenchyma appears clear. Soft tissues: The visualized pharyngeal soft tissues are normal in appearance noting angiographic phase technique. The oropharyngeal airway appears widely patent. The salivary and thyroid glands are normal in appearance. No cervical lymphadenopathy is seen. Skeletal structures: The skeletal structures are osteopenic. The calvarium appears intact. The cervical spine is maintained noting multilevel spondylosis. No lytic or blastic lesion is seen. Orbits: The bony orbits are intact. Orbital contents are normal as visualized. Sinuses and mastoids: There is moderate mucosal thickening within the ethmoid sinuses. Mild mucosal thickening is seen in the right sphenoid sinus. The remaining paranasal sinuses are clear. The mastoid air cells are well pneumatized. IMPRESSION: 1. There is no evidence of hemorrhage, mass effect, or acute territorial ischemia by CT criteria noting angiographic phase technique. 2. 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 This is unchanged from previous. 3. There are intracranial vessels are otherwise patent. 4. A stent in the right internal carotid artery is patent. 5. 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 This is unchanged from previous. ACT 112: Negative or not required by law. Electronically signed by: Hernandez Sanches M.D. 01/24/2021 5:36 PM Dictated: 01/24/21 1723Transcribed: 01/24/[address] DOSE: HISTORY: syncope TECHNIQUE: Multiaxial CT images of the head were performed without the use of intravenous contrast. Automated exposure control was utilized for this study. A dose lowering technique was utilized adhering to the principles of ALARA. Comparison: Head CT 06/05/2020. Findings: Mild mucosal thickening within the ethmoid air cells. The mastoid air cells are clear. Stable 4 mm colloid cyst again noted on image 14. Stable mild prominence of the third ventricle. There is no hematoma or acute infarct. 2 mm of left midline shift, unchanged. Old left frontal lobe infarct is also unchanged. Impression: 1. No acute infarct or acute hemorrhage identified. 2. Old left frontal lobe infarct, unchanged. 3. Stable 4 mm colloid cyst. ACT 112: Negative or not required by law. Electronically signed by: Jonathan Correa M.D. 01/24/2021 5:22 PM Dictated: 01/24/21 1719 CHEST CTA for AORTIC DISSECTION, ABDOMEN AND PELVIS CTA FOR AORTIC DISSECTION CT DOSE: HISTORY: Fall. Syncope. Atypical chest pain. Generalized abdominal pain. eval for dissection TECHNIQUE: Multiaxial CT images of the chest, abdomen, and pelvis were performed both before and after the intravenous administration of contrast to evaluate the aorta. Maximal intensity projection images were also obtained. A dose lowering technique was utilized adhering to the principles of ALARA. COMPARISON STUDY: Abdomen and pelvis CT 06/05/2020. Chest abdomen and pelvis CTA 07/24/2017. FINDINGS: Chest CTA: There is a subacute healing distal right clavicle fracture. Old, healed bilateral rib fractures. Noncontrast imaging through the chest shows no evidence for an intramural hematoma within the thoracic aorta. Normal caliber thoracic aorta with no evidence for dissection. The main pulmonary arteries are patent. No mediastinal or hilar lymphadenopathy. No pleural or pericardial effusions. The heart is borderline enlarged. Mild diffuse bronchial wall thickening, unchanged. No pneumothorax. Stable 3 mm subpleural nodule within the left lower lobe on image 222. No focal lung consolidations to suggest pneumonia. Stable 4 mm subpleural nodule within the right middle lobe on image 199. Abdomen and pelvis CTA: Moderate stenosis of approximately 50% within the proximal bilateral renal arteries. The celiac and superior mesenteric arteries show no significant stenosis. The inferior mesenteric artery is also patent. There is moderate calcified plaque within the normal caliber abdominal aorta and iliac arteries. No evidence for stenosis or aneurysm. The liver, spleen, left adrenal gland, pancreas, gallbladder, and kidneys are within normal limits. No hydronephrosis. No retroperitoneal lymphadenopathy. Partially calcified right adrenal gland, unchanged. The bladder remains moderately distended. Bilateral total hip arthroplasties obscure the deep pelvic structures including the bladder. L2 vertebroplasty is again noted. This remains unchanged. No acute fractures within the visualized osseous structures. Mild subcutaneous fat stranding within the right flank. This favors a small soft tissue injury/contusion. No hematoma identified. Colonic diverticulosis. No evidence for acute diverticulitis. No bowel wall thickening or obstruction. Normal appendix. IMPRESSION: 1. No evidence for an aortic dissection. 2. Moderate stenosis at the proximal bilateral renal arteries due to the calcified plaque. 3. Mild subcutaneous fat stranding within the right flank. This favors a small soft tissue injury/contusion. 4. Distended bladder, unchanged. 5. Subacute/healing distal right clavicle fracture. 6. Additional findings as described above. ACT 112: Negative or not required by law. Electronically signed by: Jonathan Correa M.D. 01/24/2021 5:55 PM Dictated: 01/24/211740Transcribed: 01/24/211740 CHEST CTA for AORTIC DISSECTION, ABDOMEN AND PELVIS CTA FOR AORTIC DISSECTION CT DOSE: HISTORY: Fall. Syncope. Atypical chest pain. Generalized abdominal pain. eval for dissection TECHNIQUE: Multiaxial CT images of the chest, abdomen, and pelvis were performed both before and after the intravenous administration of contrast to evaluate the aorta. Maximal intensity projection images were also obtained. A dose lowering technique was utilized adhering to the principles of ALARA. COMPARISON STUDY: Abdomen and pelvis CT 06/05/2020. Chest abdomen and pelvis CTA 07/24/2017. FINDINGS: Chest CTA: There is a subacute healing distal right clavicle fracture. Old, healed bilateral rib fractures. Noncontrast imaging through the chest shows no evidence for an intramural hematoma within the thoracic aorta. Normal caliber thoracic aorta with no evidence for dissection. The main pulmonary arteries are patent. No mediastinal or hilar lymphadenopathy. No pleural or pericardial effusions. The heart is borderline enlarged. Mild diffuse bronchial wall thickening, unchanged. No pneumothorax. Stable 3 mm subpleural nodule within the left lower lobe on image 222. No focal lung consolidations to suggest pneumonia. Stable 4 mm subpleural nodule within the right middle lobe on image 199. Abdomen and pelvis CTA: Moderate stenosis of approximately 50% within the proximal bilateral renal arteries. The celiac and superior mesenteric arteries show no significant stenosis. The inferior mesenteric artery is also patent. There is moderate calcified plaque within the normal caliber abdominal aorta and iliac arteries. No evidence for stenosis or aneurysm. The liver, spleen, left adrenal gland, pancreas, gallbladder, and kidneys are within normal limits. No hydronephrosis. No retroperitoneal lymphadenopathy. Partially calcified right adrenal gland, unchanged. The bladder remains moderately distended. Bilateral total hip arthroplasties obscure the deep pelvic structures including the bladder. L2 vertebroplasty is again noted. This remains unchanged. No acute fractures within the visualized osseous structures. Mild subcutaneous fat stranding within the right flank. This favors a small soft tissue in jury/contusion. No hematoma identified. Colonic diverticulosis. No evidence for acute diverticulitis. No bowel wall thickening or obstruction. Normal appendix. IMPRESSION: 1. No evidence for an aortic dissection. 2. Moderate stenosis at the proximal bilateral renal arteries due to the calcified plaque. 3. Mild subcutaneous fat stranding within the right flank. This favors a small soft tissue injury/contusion. 4. Distended bladder, unchanged. 5. Subacute/healing distal right clavicle fracture. 6. Additional findings as described above. ACT 112: Negative or not required by law. Electronically signed by: Jonathan Correa M.D. 01/24/2021 5:55 PM Dictated: 01/24/211740Transcribed: 01/24/211740 XR chest 1V portable CLINICAL HISTORY: syncope COMPARISON STUDY: Chest radiograph and chest CT June 05, 2020. FINDINGS: Lung volumes are normal. Lungs are clear. There is no pneumothorax or pleural effusion. Cardiac size is normal. Old right-sided rib fractures are incidentally noted. Callus formation adjacent to the right acromioclavicular joint suggests a healing fracture. Mediastinal contours are normal. There is no evidence for pulmonary edema. IMPRESSION: No acute cardiopulmonary findings. ACT 112: Negative or not required by law. Electronically signed by: Sajan Ferrara M.D. 01/24/2021 4:20 PM Dictated: 01/24/21 1619Transcribed: 01/24/21 161 Hospital Course (1) Syncope: Recurrent syncope/falls Possible related to orthosthatic hypotension vs vasovagal reaction vs alcohol intoxication Need to r/o cardiac etiology EKG on admission showed sinus bradycardia with HR 50 CT head no acute infarct or acute hemorrhage identified. Old left frontal lobe infarct, unchanged. 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 These are unchanged from previous. Recent Zio monitor 10/2020 unremarkable. No evidence of need for pacemaker or medication change at present as per outpatient Cardiology documentation. Case discussed with cardiology Dr. Brito that recommended to decrease metoprolol to 12.5 mg BID on discharge and continue Imdur 60mg daily. Cardio place a consult for neurology Spoke to Neurology that said pt was Recently evaluate outpatient for recurrent syncope and had work up done that were unremarkable. Neuro asked to cancel the consult and recommended to consult vascular surgery. 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 These are unchanged from previous. Case discussed with vascular Dr. Goncalves that said no intervention needs because the finding are chronic. Dr. Goncalves asked to cancel the consult. I reached out to neurology that recommended to continue dual antiplatelet with plavix and aspirin. Pt has an upcoming outpatient appointment with neuro. Ok from cardiology standpoint to discharge home. Fall precaution Bradycardia HR btw 40's to low 50's Metopropol decreased from 50 to 12.5mg BID Continue Imdur 60mg daily Currently asymptomatic OK from cardiology standpoint to discharge home Hypertension BP elevated Norvasc increased to 5 mg daily since Metoprolol was decreased to 12.5mg BID Continue monitor BP Finger dislocation Hand xray showed dislocation at the fourth proximal interphalangeal joint with overlying soft tissue edema. Suspect a tiny avulsion fracture at the fourth PIP. Ortho on board Splint was removed and lara taped his finger with the long finger by ortho Repeat Xray showed successful reduction of the dislocated fourth proximal interphalangeal joint with church of near-anatomic alignment. Case discussed with ortho that recommended to continue lara taper for 3 weeks Ok to start finger motion as tolerated Alcohol abuse Alcohol level 178 on admission denies any hx of alcohol withdrawal or DT Counseling on alcohol cessation Continue monitor closely Anemia Hgb stable Tobacco abuse Counseling on smoking cessation DVT prophylaxis SCDs RE traumatic flank contusion Full code Disposition Discharge home today Contact: Ms. Maria Dolores León, contact #[phone]. Total Time Total Time Spent Total Time Spent (In Minutes): 40 minutes Total Time Includes: Examination of the Patient, Discharge Planning, Medication Reconciliation, Communication With Other Providers and Other Discharge Plan Discharge Items Patient Disposition: Home - Self-Care Reason For Visit: SYNCOPE, BRADYCARDIA Discharge Diagnosis: Syncope Activity: Resume your previous activity Non-emergency contact: Primary Care Provider, Wellness Spa Manager and Neurologist Call non-emergency contact if: you have any medication questions Follow-up/Referrals: Terry Resendez MD [Primary Care Provider] - (Date & Time 01/29/2021 11:20 AM Provider Terry Resendez MD Department [facility] ) Diet: Heart Healthy Addtl Attending Provider Instructions: Follow up with your primary care provider Dr. Resendez on 01/29/2021 at 11:20 AM at the [facility] Follow up with neurology dr. Strong Fall precaution Continue monitor your blood pressure You will need to lara tape your fingers for about 3 weeks. It is okay to begin some finger motion as tolerated. No weightlifting any bag with the right hand for now Continue monitor your blood pressure since Norvasc increased to 5mg daily Continue monitor your Heart rate since metoprolol decreased to 12.5 mg twice a day Pending Studies at Discharge: No Stand-Alone Forms: My [facility], Smoking Cessation Medications and DC Order Prescriptions: New metoprolol tartrate 25 mg Tablet 12.5 mg PO BID 30 Days Qty: 30 RF: 0 amlodipine 5 mg tablet 5 mg PO DAILY Qty: 30 RF: 0 Continued cholecalciferol (vitamin D3) 1,000 unit Tablet 1,000 inter.unit PO QAM Qty: 0 RF: 0 clopidogrel 75 mg Tablet 75 mg PO QAM Qty: 0 RF: 0 duloxetine 60 mg Capsule,Delayed Release(Dr/Ec) 60 mg PO HS Qty: 0 RF: 0 cyclobenzaprine 10 mg Tablet 10 mg PO TID PRN (Reason: Muscle Spasm) Qty: 0 RF: 0 tamsulosin 0.4 mg Capsule 0.4 mg PO QAM Qty: 0 RF: 0 isosorbide mononitrate 60 mg Tablet Extended Release 24 Hr 60 mg PO QAM Qty: 0 RF: 0 nitroglycerin 0.4 mg Tablet, Sublingual 0.4 mg Sublingual DIRECTED PRN (Reason: Chest Pain) Qty: 0 RF: 0 folic acid 400 mcg Tablet 400 mcg PO QAM Qty: 0 RF: 0 thiamine HCl (vitamin B1) 100 mg Tablet 100 mg PO QAM Qty: 0 RF: 0 tramadol 50 mg Tablet 50 mg PO Q6H PRN (Reason: Pain) Qty: 0 RF: 0 metformin 500 mg tablet extended release 24 hr 500 mg PO QAM RF: 0 aspirin 81 mg Tablet,Delayed Release (Dr/Ec) 81 mg PO QAM RF: 0 acetaminophen 500 mg Tablet 1,000 mg PO Q6H PRN (Reason: Fever Or Pain) RF: 0 hydrocodone-acetaminophen 5-325 mg Tablet 1 tab PO QID PRN (Reason: Pain) RF: 0 Discontinued metoprolol tartrate 100 mg Tablet 50 mg PO BID Qty: 0 RF: 0 amlodipine 2.5 mg tablet 2.5 mg PO QAM RF: 0 Discharge Orders: Discharge Order (Routine); Ordered 01/25/21 Ordered By: Marcio Page/Other Patient Handouts: High Blood Sugar (Hyperglycemia), Hypoglycemia (Low Blood Sugar), Managing Type 2 Diabetes Admission Data Admit Date/Time: 01/24/21 20:39 Attending Provider: Marcio Polo Admit Provider: Charles Small Primary Care Provider: Terry Resendez Other Providers: Charles Small ; Clay Hernandez ; Patel Escamilla ; Kendall Nielson ; Tomas Carr ; Danielito Brito ; Terry Garcia ; Alicia Pulido ; Elsie Lopez ; Myrna Wong ; Nathan Deras ; Sylvia Nails ; Luis Felipe Graham ; Douglas Nielson ; Roel Paul ; [place] ; Margarito Apodaca ; Halima Mccormick ; Gemma Leary ; Patel Benavidez ; Grant Waters ; Luis Felipe Jacobo ; Luis Felipe Rodriguez ; Suzanne Garcia Other Interventions: Discharge Summary Assessment (RN) Last Done: 01/25/21 17:34
[2021-01-25 17:36] VITALS: PULSE 62
[2021-01-25] MEDS ORDERED: METOPROLOL TARTRATE 25 MG TAB PO SCH (21:00)
== END 2021-01-25 18:16 | disposition home or self-care (01) ==
LOC: ED 15:17 → 2S 15:17

== ENCOUNTER 2021-06-15 13:24 | Inpatient (IN) ==
--- NOTE | 2021-06-15 13:26 | Emergency Department Note ---
Impression & Plan Closed fracture of left inferior pubic ramus, H/O: CVA (cerebrovascular accident), Fall, Closed fracture of right inferior pubic ramus, Closed fracture of right superior pubic ramus, Closed fracture of superior ramus of left pubis, Syncope ED Provider Note NAME: MANUEL GONZALES AGE: 65 SEX: M : 1955 ARRIVES VIA: Ambulance INFORMANT: Patient, ED PROVIDER(S): Oskar Astorga MD Chief Complaint: Syncope HPI: Patient does present due to concern for syncope and back pain. The patient is unclear as to what may or may not have happened. No tongue biting or incontinence. The patient does have right-sided lower back and hip pain. No recent surgeries or procedures. Patient denies any vomiting but has had some nausea. Patient denies any headache or neck pain. The patient does have difficulty with range of motion of the right lower extremity. Patient states that he did take his medications this morning. The patient does take aspirin Plavix and does have a prior history of a thromboembolic CVA. Patient did not take anything for pain prior to arrival. The patient did describe the pain as sharp and tearing. Patient's vitals in route were unremarkable. Patient had normal cardia and was normotensive. ROS: See HPI for pertinent positives and negatives. A total of 10 systems were reviewed and otherwise negative. Past medical history: See below Surgical history: See below Social history: See below Physical Exam: GENERAL: Comfortable in appearance, non-toxic. EYE EXAM: Normal conjunctiva. PERRL, no anisocoria and EOM's grossly intact w/o pain. NECK: Supple, no nuchal rigidity, no adenopathy, non-tender. No signs of meningismus. LUNGS: Clear to auscultation. Normal chest wall mechanics. HEART: NSR, no MRG. ABDOMEN: Abdomen soft, non-tender, normo-active bowel sounds, no masses, no rebound or guarding. BACK: Right-sided lower back pain. SKIN: No rashes and no bruising. UPPER EXTREMITIES: Upper extremities are grossly normal. LOWER EXTREMITIES: Pain over the right hip and buttock area, no obvious deformity, decreased range of motion secondary to pain, neurovascular intact di stally. NEURO EXAM: A&O x3, cranial nerves II-XII grossly intact, normal speech, moves all 4 extremities on command w/o issue. Differential diagnoses: Vasovagal event, dehydration, infection, hypoglycemia, electrolyte abnormalities, cardiac sources, intracerebral event, pulmonary embolism, seizure, toxicologic, neurologic, as well as other pathologies. Course: Patient was seen and evaluated the bedside. Full history physical exam was performed. EKG interpreted by me Normal sinus rhythm, rate of 70, normal intervals, normal axis, no ST changes or T WI. Imaging Studies: See Below Cardiac monitoring: An order was placed for continuous cardiac monitoring. The monitor shows a rate of 82 with sinus rhythm. MDM: Patient did present due to concern for syncope and back pain. Patient was immediately taken to CT due to concern for the possibility of a dissection given the syncope and back pain that was described as ripping. Patient did have a white count of 15 with a hemoglobin of 13.6. The patient's kidney function showed a creatinine 1.4. The patient did receive pain medication. Troponin undetectable. Alcohol negative. Covid negative. Patient CTs did show concern for numerous pelvic fractures. I did speak with the on-call orthopedist Dr. Resenidz who did review the imaging and stated the patient could be weightbearing as tolerated and the patient fractures were nonoperative. I did speak the on- call physician Dr. Sommer and the patient was admitted to the medicine service. Past Med/Surg History Medical History (Updated 06/15/21 @ 19:53 by Oskar Astorga MD) Alcohol intoxication ASCVD (arteriosclerotic cardiovascular disease) CAD (coronary artery disease) "S/p attempted PCI of a [employer] of right coronary artery, procedure aborted due to 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 Benavidez" H/O repair of rotator cuff "R side; 09/2006" Hx of tonsillectomy Previous back surgery Family History (Updated 06/15/21 @ 19:08 by Laly Lee PA-C) Son Spherocytosis Other Heart disease Social History (Updated 06/15/21 @ 19:08 by Laly Lee PA-C) Smoking Status: Current every day smoker Tobacco Type: Cigarettes Cigarettes Per Day: 1 PPD; Second Hand Exposure: No; Hx Alcohol Use: Yes Alcohol type: beer Alcohol Intake Frequency: 4 or More x per/Week Alcohol Intake Frequency Comment: 5-6 beers/day Hx Substance Use: No Preferred Language: Danish Communication Ability: Effective Explosives Handler Required: No Beliefs That Will Affect Care: None Current Living Situation: Spouse Current Living Situation Comment: Feels Safe at Home: Yes Assistive Devices: None Allergies Allergies Allergy/AdvReac Type Severity Reaction Status Date / Time Cipro Allergy Severe hives Verified 04/22/18 16:34 ciprofloxacin Allergy Severe hives Verified 06/15/21 15:26 simvastatin AdvReac Intermediate MUSCLE Verified 06/15/21 15:26 PAIN/WEAKNESS Luaipef-ODB-ApB Reductase AdvReac Intermediate MUSCLE Unverified 06/15/21 15:26 Inhibitor PAIN/WEAKNESS [Grxrfzj-Wgs-Xoy Reductase Inhibitor] Home Meds Home Medications Medication Instructions Recorded Confirmed cholecalciferol (vitamin D3) 25 1,000 unit PO QAM #0 06/08/15 06/15/21 mcg (1,000 unit) tablet clopidogrel 75 mg tablet 75 mg PO QAM #0 06/14/15 06/15/21 duloxetine 60 mg capsule,delayed 60 mg PO HS #0 01/11/16 06/15/21 release cyclobenzaprine 10 mg tablet 10 mg PO TID PRN #0 08/19/16 06/15/21 tamsulosin 0.4 mg capsule 0.4 mg PO QAM #0 07/24/17 06/15/21 isosorbide mononitrate 60 mg 60 mg PO QAM #0 tab 04/18/18 06/15/21 tablet,extended release 24 hr nitroglycerin 0.4 mg sublingual 0.4 mg SUBLINGUAL DIRECTED PRN 04/18/18 06/15/21 tablet #0 folic acid 400 mcg tablet 800 mcg PO QAM #0 04/22/18 06/15/21 thiamine HCl (vitamin B1) 100 mg 100 mg PO QAM #0 04/22/18 06/15/21 tablet tramadol 50 mg tablet 50 mg PO Q6H PRN #0 tab 04/22/18 06/15/21 acetaminophen 500 mg tablet 1,000 mg PO Q6H PRN 10/02/18 06/15/21 aspirin 81 mg tablet,delayed 81 mg PO QAM 10/02/18 06/15/21 release hydrocodone 5 mg-acetaminophen 325 1 tab PO TID PRN 05/18/19 06/15/21 mg tablet metformin 500 mg tablet,extended 500 mg PO QAM 06/05/20 06/15/21 release 24 hr amlodipine 2.5 mg tablet 2.5 mg PO DAILY 06/15/21 06/15/21 metoprolol tartrate 25 mg tablet 25 mg PO BID 06/15/21 06/15/21 ondansetron HCl 4 mg tablet 4 mg PO Q6H PRN 06/15/21 06/15/21 Results & Data (ED) Vital Signs Vital Signs - 24 hr 06/15/21 13:20 06/15/21 14:00 06/15/21 14:35 Temperature 36.6 C Temperature Source Oral Pulse Rate 80 77 69 Pulse Rate [Apical] Pulse Rate from SpO2 Sensor 70 Pulse Rhythm [Apical] Pulse Strength [Apical] Respiratory Rate 16 26 H 20 Respiratory Effort / Characteristics Non-Labored Respiratory Depth Normal Respiratory Pattern Blood Pressure 130/61 Blood Pressure [Right Arm] Blood Pressure Mean 84 Blood Pressure Mean [Right Arm] Blood Pressure Position Sitting Blood Pressure Position [Right Arm] Pulse Oximetry 95 96 95 Oxygen Delivery Method Room Air Sepsis Recent Fever Within 48 Hours No Sepsis New/Unexplained Change in Mental Status No Sepsis Action Taken by Nursing No Action Required 06/15/21 15:00 06/15/21 15:30 06/15/21 15:58 Temperature Temperature Source Pulse Rate 69 80 Pulse Rate [Apical] 80 Pulse Rate from SpO2 Sensor 69 80 Pulse Rhythm [Apical] Regular Pulse Strength [Apical] Normal Respiratory Rate 24 23 18 Respiratory Effort / Characteristics Non-Labored Spontaneous Respiratory Depth Normal Respiratory Pattern Regular Blood Pressure Blood Pressure [Right Arm] 111/69 Blood Pressure Mean Blood Pressure Mean [Right Arm] 83 Blood Pressure Position Blood Pressure Position [Right Arm] Lying Pulse Oximetry 94 91 91 Oxygen Delivery Method Room Air Sepsis Recent Fever Within 48 Hours Sepsis New/Unexplained Change in Mental Status Sepsis Action Taken by Nursing 06/15/21 16:00 Temperature Temperature Source Pulse Rate 85 Pulse Rate [Apical] Pulse Rate from SpO2 Sensor 84 Pulse Rhythm [Apical] Pulse Strength [Apical] Respiratory Rate 22 Respiratory Effort / Characteristics Respiratory Depth Respiratory Pattern Blood Pressure 132/77 Blood Pressure [Right Arm] Blood Pressure Mean 95 Blood Pressure Mean [Right Arm] Blood Pressure Position Blood Pressure Position [Right Arm] Pulse Oximetry 90 Oxygen Delivery Method Sepsis Recent Fever Within 48 Hours Sepsis New/Unexplained Change in Mental Status Sepsis Action Taken by Nursing Laboratory Data Result diagrams: 06/15/21 13:50 06/15/21 13:50 Lab Results 06/15/21 06/15/21 06/15/21 Range/Units 13:50 13:50 13:50 WBC 15.18 H (4.8-10.8) K/uL RBC 4.28 L (4.7-6.1) M/uL Hgb 13.6 L (14.0-18.0) g/dL Hct 39.7 L (42-52) % MCV 92.8 (80-100) fL MCH 31.8 (25-34) pg MCHC 34.3 (32-36) g/dL RDW Std Deviation 43.3 (36.4-46.3) fL RDW Coeff of Keny 12.7 (11.5-14.5) % Plt Count 218 (130-400) K/uL MPV 8.3 (7.4-10.4) fL Immature Gran % (Auto) 0.7 % Neut % (Auto) 84.1 % Lymph % (Auto) 8.1 % Jackson % (Auto) 6.3 % Eos % (Auto) 0.3 % Baso % (Auto) 0.5 % Neut # (Auto) 12.78 H (1.4-6.5) K/uL Lymph # (Auto) 1.23 (1.2-3.4) K/uL Jackson # (Auto) 0.95 H (0.11-0.59) K/uL Eos # (Auto) 0.04 (0-0.5) K/uL Baso # (Auto) 0.07 (0-0.2) K/uL Immature Gran # (Auto) 0.11 H (0.00-0.02) K/uL Sodium 129 L (136-145) mmol/L Potassium 4.7 (3.5-5.1) mmol/L Chloride 97 L (98-107) mmol/L Carbon Dioxide 24 (21-32) mmol/L Anion Gap 8.0 (3-11) BUN 11 (7-18) mg/dl Creatinine 1.47 H (0.6-1.4) mg/dl Est Cr Clr Drug Dosing Not Reportable Est GFR ( Amer) 56.8 ml/min Est GFR (Non-Af Amer) 49.0 ml/min BUN/Creatinine Ratio 7.4 L (10-20) Glucose 144 H (70-99) mg/dl Osmolality (280-300) mOsm/kg Calcium 8.9 (8.5-10.1) mg/dl Magnesium 2.2 (1.8-2.4) mg/dl Total Bilirubin 0.4 (0.2-1) mg/dl AST 27 (15-37) U/L ALT 28 (12-78) U/L Alkaline Phosphatase 83 (45-117) U/L Troponin I < 0.015 (0-0.045) ng/ml Total Protein 7.0 (6.4-8.2) gm/dl Albumin 3.4 (3.4-5.0) gm/dl Globulin 3.6 (2.5-4.0) gm/dl Albumin/Globulin Ratio 0.9 (0.9-2) Procalcitonin (0-0.5) ng/ml TSH 1.100 (0.300-4.500) uIu/ml Ethyl Alcohol mg/dL (0-3) mg/dl Blood Type A Positive Antibody Screen NEGATIVE 06/15/21 06/15/21 06/15/21 Range/Units 13:50 13:51 13:51 WBC (4.8-10.8) K/uL RBC (4.7-6.1) M/uL Hgb (14.0-18.0) g/dL Hct (42-52) % MCV (80-100) fL MCH (25-34) pg MCHC (32-36) g/dL RDW Std Deviation (36.4-46.3) fL RDW Coeff of Keny (11.5-14.5) % Plt Count (130-400) K/uL MPV (7.4-10.4) fL Immature Gran % (Auto) % Neut % (Auto) % Lymph % (Auto) % Jackson % (Auto) % Eos % (Auto) % Baso % (Auto) % Neut # (Auto) (1.4-6.5) K/uL Lymph # (Auto) (1.2-3.4) K/uL Jackson # (Auto) (0.11-0.59) K/uL Eos # (Auto) (0-0.5) K/uL Baso # (Auto) (0-0.2) K/uL Immature Gran # (Auto) (0.00-0.02) K/uL Sodium (136-145) mmol/L Potassium (3.5-5.1) mmol/L Chloride (98-107) mmol/L Carbon Dioxide (21-32) mmol/L Anion Gap (3-11) BUN (7-18) mg/dl Creatinine (0.6-1.4) mg/dl Est Cr Clr Drug Dosing Est GFR ( Amer) ml/min Est GFR (Non-Af Amer) ml/min BUN/Creatinine Ratio (10-20) Glucose (70-99) mg/dl Osmolality 288 (280-300) mOsm/kg Calcium (8.5-10.1) mg/dl Magnesium (1.8-2.4) mg/dl Total Bilirubin (0.2-1) mg/dl AST (15-37) U/L ALT (12-78) U/L Alkaline Phosphatase (45-117) U/L Troponin I (0-0.045) ng/ml Total Protein (6.4-8.2) gm/dl Albumin (3.4-5.0) gm/dl Globulin (2.5-4.0) gm/dl Albumin/Globulin Ratio (0.9-2) Procalcitonin < 0.05 (0-0.5) ng/ml TSH (0.300-4.500) uIu/ml Ethyl Alcohol mg/dL < 3.0 (0-3) mg/dl Blood Type Antibody Screen Administered Medications Sodium Chloride (Nss 1000ml) 1,000 mls @ 80 mls/hr IV .[id number] BRIAN Stop: 06/16/21 17:29 Last Admin: 06/15/21 16:32 Dose: 80 mls/hr Documented by: [id number] Piperacillin Sod/Tazobactam (Sod 3.375 gm/ Dextrose) 115 mls @ 230 mls/hr IV Q8H [facility]; Protocol Stop: 06/15/21 20:00 Last Admin: 06/15/21 18:11 Dose: 28.8 mls/hr Documented by: [id number] Discontinued Medications Acetaminophen (Acetaminophen 325 Mg Tab) 650 mg PO NOW STA Stop: 06/15/21 17:23 Last Admin: 06/15/21 18:22 Dose: Not Given Documented by: [id number] Diazepam (Diazepam 5 Mg/Ml Inj 10ml Vial) 5 mg IV NOW STA Stop: 06/15/21 18:03 Last Admin: 06/15/21 18:12 Dose: 5 mg Documented by: [id number] Hydromorphone HCl (Hydromorphone Inj 0.5 Mg/0.5 Ml Syr) 0.5 mg IV NOW STA Stop: 06/15/21 14:51 Last Admin: 06/15/21 15:11 Dose: 0.5 mg Documented by: [id number] Hydromorphone HCl (Hydromorphone Inj 0.5 Mg/0.5 Ml Syr) 0.5 mg IV NOW STA Stop: 06/15/21 15:46 Last Admin: 06/15/21 15:49 Dose: 0.5 mg Documented by: [id number] Ioversol (Optiray 320 125ml) 116 ml IV ONCE ONE Stop: 06/15/21 13:50 Last Admin: 06/15/21 13:50 Dose: 116 ml Documented by: [id number] Morphine Sulfate (Morphine Sulfate 4 Mg/Ml 1 Ml Carp\\Vial) 4 mg IV NOW STA Stop: 06/15/21 13:49 Last Admin: 06/15/21 13:58 Dose: 4 mg Documented by: [id number] Ondansetron HCl (Ondansetron Inj 2 Mg/Ml 2 Ml Vial) 4 mg IV NOW STA Stop: 06/15/21 13:58 Last Admin: 06/15/21 13:58 Dose: 4 mg Documented by: [id number] Ondansetron HCl (Ondansetron Inj 2 Mg/Ml 2 Ml Vial) Confirm Administered Dose 4 mg .ROUTE .Aceris 3D Inspection ONE Stop: 06/15/21 13:58 Last Admin: 06/15/21 14:02 Dose: Not Given Documented by: [id number] Imaging Data Radiologist's Impression: Abdomen/Pelvis CTA 06/15/21 13:15 CT angio abdomen pelvis w con CLINICAL HISTORY: back pain, multiple syncope COMPARISON STUDY: CTA of the abdomen and pelvis January 24, 2021. TECHNIQUE: Helical axial images of the abdomen and pelvis were obtained during arterial phase following intravenous injection of 116 cc Optiray 320 IV. Sagittal coronal reconstructed reviewed as well as maximal intensity projections on an independent 3-D workstation. Automated exposure control was utilized for the study. A dose lowering technique was utilized adhering to the principles of ALARA. FINDINGS: Please note that the chest CT will be reported separately. This exam is compromised by motion artifact. There is no abdominal aortic dissection. The re is extensive plaque of the abdominal aorta and branch vessels. Evaluation for stenosis is difficult given motion artifact. Arterial phase images of the liver, spleen, adrenal glands, kidneys and pancreas are unremarkable. Is no evidence for a bowel obstruction. The appendix is normal. Evaluation of the pelvis is compromised given streak artifact from bilateral hip arthroplasties as well as motion artifact. Bladder wall thickening is unchanged. Note is made of an acute displaced right inferior and superior pubic rami fractures. There is moderate associated extraperitoneal hemorrhage. No active extravasation is identified although sensitivity is diminished on this exam. Note is made of acute nondisplaced fractures of the left inferior and superior pubic rami. There is a nondisplaced right sacral ala fracture. In addition, there is an acute minimally displaced fracture of the medial right iliac bone. No proximal femoral fracture is identified on this exam. There is intramuscular hemorrhage within the right adductor muscles. There may be hemorrhage within the right iliacus muscle and the right lateral abdominal wall muscles. IMPRESSION: 1. No abdominal aortic dissection. 2. Acute displaced right inferior and superior pubic rami fractures. Moderate associated extraperitoneal hemorrhage. No active extravasation identified although sensitivity diminished on this exam given motion artifact and streak artifact from bilateral hip arthroplasties. 3. Acute nondisplaced left pubic ring fractures. Acute nondisplaced right sacral ala fracture. 4. Acute nondisplaced fracture of the medial right iliac bone with associated in tramuscular hemorrhage within the right iliacus muscle. Possible hemorrhage within the right lateral abdominal wall musculature. ACT 112: Negative or not required by law. Electronically signed by: Sajan Ferrara M.D. 06/15/2021 2:22 PM Chest CTA 06/15/21 13:15 CT ANGIOGRAPHY OF THE CHEST DISSECTION PROTOCOL CLINICAL HISTORY: Severe chest and back pain. Multiple syncopal episodes. COMPARISON STUDY: Chest CT January 24, 2021. TECHNIQUE: Before and following the IV administration of 116 mL of Optiray, helical axial images of the chest were obtained. Maximal intensity projections and sagittal and coronal reformats were viewed on an independent 3D workstation. IV contrast was administered without complication. Automated exposure control was utilized for the study. A dose lowering technique was utilized adhering to the principles of ALARA. FINDINGS: The caliber of the thoracic aorta is normal. There is no thoracic aortic dissection or intramural hematoma. There is mild atherosclerotic plaque of the thoracic aorta. Mild cardiomegaly is noted. There is moderate coronary artery calcification. No pericardial effusion is present. No pneumothorax or pleural effusion is present. There is no consolidation to suggest pneumonia. A few small right middle lobe nodules are unchanged from earlier exams. These are benign given stability. Healing right clavicular fracture is noted. There numerous healing rib fractures. No acute fracture is identified within visualized portions of the bony thorax. There is no consolidation to suggest pneumonia. Central airways are patent. Abdomen and pelvis will be reported separ ately. IMPRESSION: 1. No thoracic aortic dissection. 2. No acute process within the chest. ACT 112: Negative or not required by law. Electronically signed by: Sajan Ferrara M.D. 06/15/2021 2:[address] 06/15/21 13:15 CT OF THE HEAD WITHOUT CONTRAST CLINICAL HISTORY: Syncope. COMPARISON STUDY: Head CT and CTA of the head January 24, 2021. MRI of the brain June 06, 2020. TECHNIQUE: Helical axial images of the head were obtained without IV contrast. Automated exposure control was utilized for the study. A dose lowering technique was utilized adhering to the principles of ALARA. FINDINGS: No acute intracranial hemorrhage, midline shift or mass effect is present. Ventricular system is stable. 7 mm colloid cyst is similar to prior exams. Encephalomalacia within left frontal lobe is unchanged. There are no findings to suggest acute dural sinus thrombosis or acute territorial infarct. The appearance of the brain is unchanged. There is no calvarial fracture. There is ethmoid sinus mucosal thickening. IMPRESSION: 1. No acute intracranial findings. No change in appearance of the brain. Old left frontal lobe infarct. 2. Redemonstration of a colloid cyst. Stable ventricular system. ACT 112: Negative or not required by law. Electronically signed by: Sajan Ferrara M.D. 06/15/2021 1:57 PM Femur X-Ray 06/15/21 13:48 XR femur RT 2V routine CLINICAL HISTORY: pain COMPARISON: Right femur radiographs April 18, 2018. FINDINGS: Right pubic ring fractures are better depicted on the pelvis radiographs. Alignment of the total right hip arthroplasty is anatomic. There is no periprosthetic fracture. No right femoral fracture is present. There is no right knee joint effusion. IMPRESSION: 1. Intact total right hip arthroplasty. No periprosthetic fracture. 2. Acute right pubic ring fractures better depicted on the pelvis radiograph. ACT 112: Negative or not required by law. Electronically signed by: Sajan Ferrara M.D. 06/15/2021 2:48 PM Hip/Pelvis X-Ray 06/15/21 13:48 XR hip RT 2V w pelvis CLINICAL HISTORY: pain post fall COMPARISON: CTA of the abdomen and pelvis January 24, 2021. Pelvis radiograph April 18, 2018. FINDINGS: Note is made of contrast within the bladder from recent contrast-e nhanced CT. Several bladder diverticula are incidentally noted. Alignment of the total bilateral hip arthroplasties is anatomic. There is no periprosthetic fracture. Note is made of an acute displaced fractures of the right superior and inferior pubic rami. Superior pubic rami fractures displaced 1.7 cm. Nondisplaced left pubic ring fractures are better depicted on prior CT. Fractures within the right iliac bone and right sacral ala are also better depicted on that exam. IMPRESSION: 1. Acute displaced right superior and inferior pubic rami fractures. 2. Acute minimally displaced left pubic ring fractures. 3. Right sacral ala and medial right iliac bone fractures which are better depicted on the CTA. 4. Anatomic alignment of total bilateral hip arthroplasties. No periprosthetic fracture. ACT 112: Negative or not required by law. Electronically signed by: Sajan Ferrara M.D. 06/15/2021 2:44 PM Knee X-Ray 06/15/21 13:48 XR knee RT 3V CLINICAL HISTORY: Right knee pain following injury. COMPARISON: Right femur radiographs April 18, 2018. FINDINGS: Alignment of the right knee is anatomic. There is no joint effusion. There is no acute fracture. Mild to moderate patellofemoral compartment osteoarthritis is noted. IMPRESSION: No acute fracture or joint effusion of the right knee. ACT 112: Negative or not required by law. Electronically signed by: Sajan Ferrara M.D. 06/15/2021 2:48 PM Discharge Plan Visit Data Chief Complaint: Syncope ED Provider: Oskar Astorga Discharge Problem: Closed fracture of left inferior pubic ramus, H/O: CVA (cerebrovascular accident), Fall, Closed fracture of right inferior pubic ramus, Closed fracture of right superior pubic ramus, Closed fracture of superior ramus of left pubis, Syncope Patient Disposition: Admitted As Inpatient Discharge Instructions Interventions: ED Discharge Assessment Last Done: 06/15/21 17:27
[2021-06-15] MEDS ORDERED: MoRPHine SULFATE 4 MG/ML 1 ML CARP\\VIAL IV STA (13:48)
[2021-06-15] MEDS ORDERED: OPTIRAY 320 125ml IV ONE (13:49)
[2021-06-15] MEDS ORDERED: ONDANSETRON INJ 2 MG/ML 2 ML VIAL IV STA (13:57)
[2021-06-15] MEDS ORDERED: ONDANSETRON INJ 2 MG/ML 2 ML VIAL ONE (13:57)
--- NOTE | 2021-06-15 13:58 | CT Scan Report ---
CT OF THE HEAD WITHOUT CONTRAST CLINICAL HISTORY: Syncope. COMPARISON STUDY: Head CT and CTA of the head January 24, 2021. MRI of the brain June 06, 2020. TECHNIQUE: Helical axial images of the head were obtained without IV contrast. Automated exposure con trol was utilized for the study. A dose lowering technique was utilized adhering to the principles o f ALARA. FINDINGS: No acute intracranial hemorrhage, midline shift or mass effect is present. Ventricular syst em is stable. 7 mm colloid cyst is similar to prior exams. Encephalomalacia within left frontal lobe is unchanged. There are no findings to suggest acute dural sinus thrombosis or acute territorial infa rct. The appearance of the brain is unchanged. There is no calvarial fracture. There is ethmoid sinus mucosal thickening. IMPRESSION: 1. No acute intracranial findings. No change in appearance of the brain. Old left frontal lobe infarc t. 2. Redemonstration of a colloid cyst. Stable ventricular system. ACT 112: Negative or not required by law. Electronically signed by: Sajan Ferrara M.D. 06/15/2021 1:57 PM
[2021-06-15 14:00] LABS: Basophils # (auto) 0.07 K/uL (0-0.2); Basophils % (auto) 0.5 %; Eosinophils # (auto) 0.04 K/uL (0-0.5); Eosinophils % (auto) 0.3 %; Hematocrit (blood only) 39.7 % (42-52); Hemoglobin 13.6 g/dL (14.0-18.0); Immature Granulocytes # (auto) 0.11 K/uL (0.00-0.02); Immature Granulocytes % (auto) 0.7 %; Lymphocytes # (auto) 1.23 K/uL (1.2-3.4); Lymphocytes % (auto) 8.1 %; Mean Corpuscular Hemoglobin 31.8 pg (25-34); Mean Corpuscular Hgb Conc 34.3 g/dL (32-36); Mean Corpuscular Volume 92.8 fL (80-100); Mean Platelet Volume 8.3 fL (7.4-10.4); Monocytes # (auto) 0.95 K/uL (0.11-0.59); Monocytes % (auto) 6.3 %; Neutrophils # (auto) 12.78 K/uL (1.4-6.5); Neutrophils % (auto) 84.1 %; Platelet Count 218 K/uL (130-400); RDW Coefficient of Variation 12.7 % (11.5-14.5); RDW Standard Deviation 43.3 fL (36.4-46.3); Red Blood Count 4.28 M/uL (4.7-6.1); White Blood Count 15.18 K/uL (4.8-10.8)
--- NOTE | 2021-06-15 14:09 | CT Scan Report ---
CT ANGIOGRAPHY OF THE CHEST DISSECTION PROTOCOL CLINICAL HISTORY: Severe chest and back pain. Multiple syncopal episodes. COMPARISON STUDY: Chest CT January 24, 2021. TECHNIQUE: Before and following the IV administration of 116 mL of Optiray, helical axial images of t he chest were obtained. Maximal intensity projections and sagittal and coronal reformats were viewed on an independent 3D workstation. IV contrast was administered without complication. Automated exp osure control was utilized for the study. A dose lowering technique was utilized adhering to the samia Dawn. FINDINGS: The caliber of the thoracic aorta is normal. There is no thoracic aortic dissection or int ramural hematoma. There is mild atherosclerotic plaque of the thoracic aorta. Mild cardiomegaly is no tobi. There is moderate coronary artery calcification. No pericardial effusion is present. No pneumoth orax or pleural effusion is present. There is no consolidation to suggest pneumonia. A few small righ t middle lobe nodules are unchanged from earlier exams. These are benign given stability. Healing rig ht clavicular fracture is noted. There numerous healing rib fractures. No acute fracture is identifie d within visualized portions of the bony thorax. There is no consolidation to suggest pneumonia. Cent ral airways are patent. Abdomen and pelvis will be reported separately. IMPRESSION: 1. No thoracic aortic dissection. 2. No acute process within the chest. ACT 112: Negative or not required by law. Electronically signed by: Sajan Ferrara M.D. 06/15/2021 2:07 PM
--- NOTE | 2021-06-15 14:15 | Electrocardiogram Report ---
Test Reason : Blood Pressure : / mmHG Vent. Rate : 070 BPM Atrial Rate : 070 BPM P-R Int : 142 ms QRS Dur : 098 ms QT Int : 406 ms P-R-T Axes : 065 073 061 degrees QTc Int : 438 ms Poor data quality, interpretation may be adversely affected Normal sinus rhythm Normal ECG When compared with ECG of 24-JAN-2021 15:28, No significant change was found Confirmed by Justyn Cavazos ([id number]) on 06/15/2021 2:15:22 PM Referred By: REFERRED SELF Confirmed By:Justyn Cavazos
[2021-06-15 14:18] LABS: Alanine Aminotransferase 28 U/L (12-78); Albumin Level 3.4 gm/dl (3.4-5.0); Aspartate Aminotransferase 27 U/L (15-37); BUN Creatinine Ratio 7.4 (10-20); Blood Urea Nitrogen 11 mg/dl (7-18); Calcium 8.9 mg/dl (8.5-10.1); Carbon Dioxide 24 mmol/L (21-32); Chloride 97 mmol/L (98-107); Est GFR (African American) 56.8 ml/min; Glucose 144 mg/dl (70-99); Magnesium 2.2 mg/dl (1.8-2.4); Potassium 4.7 mmol/L (3.5-5.1); Sodium 129 mmol/L (136-145)
--- NOTE | 2021-06-15 14:23 | CT Scan Report ---
CT angio abdomen pelvis w con CLINICAL HISTORY: back pain, multiple syncope COMPARISON STUDY: CTA of the abdomen and pelvis January 24, 2021. TECHNIQUE: Helical axial images of the abdomen and pelvis were obtained during arterial phase followi ng intravenous injection of 116 cc Optiray 320 IV. Sagittal coronal reconstructed reviewed as well as maximal intensity projections on an independent 3-D workstation. Automated exposure control was util ized for the study. A dose lowering technique was utilized adhering to the principles of ALARA. FINDINGS: Please note that the chest CT will be reported separately. This exam is compromised by sophia on artifact. There is no abdominal aortic dissection. There is extensive plaque of the abdominal aort a and branch vessels. Evaluation for stenosis is difficult given motion artifact. Arterial phase imag es of the liver, spleen, adrenal glands, kidneys and pancreas are unremarkable. Is no evidence for a bowel obstruction. The appendix is normal. Evaluation of the pelvis is compromised given streak artif act from bilateral hip arthroplasties as well as motion artifact. Bladder wall thickening is unchange d. Note is made of an acute displaced right inferior and superior pubic rami fractures. There is moderat e associated extraperitoneal hemorrhage. No active extravasation is identified although sensitivity i s diminished on this exam. Note is made of acute nondisplaced fractures of the left inferior and supe rior pubic rami. There is a nondisplaced right sacral ala fracture. In addition, there is an acute mi nimally displaced fracture of the medial right iliac bone. No proximal femoral fracture is identified on this exam. There is intramuscular hemorrhage within the right adductor muscles. There may be hemo rrhage within the right iliacus muscle and the right lateral abdominal wall muscles. IMPRESSION: 1. No abdominal aortic dissection. 2. Acute displaced right inferior and superior pubic rami fractures. Moderate associated extraperito marcie hemorrhage. No active extravasation identified although sensitivity diminished on this exam give n motion artifact and streak artifact from bilateral hip arthroplasties. 3. Acute nondisplaced left pubic ring fractures. Acute nondisplaced right sacral ala fracture. 4. Acute nondisplaced fracture of the medial right iliac bone with associated intramuscular hemorrhag e within the right iliacus muscle. Possible hemorrhage within the right lateral abdominal wall muscul ature. ACT 112: Negative or not required by law. Electronically signed by: Sajan Ferrara M.D. 06/15/2021 2:22 PM
[2021-06-15 14:28] LABS: Albumin Globulin Ratio 0.9 (0.9-2); Alkaline Phosphatase 83 U/L (45-117); Bilirubin,Total 0.4 mg/dl (0.2-1); Globulin 3.6 gm/dl (2.5-4.0); Troponin I < 0.015 ng/ml (0-0.045)
--- NOTE | 2021-06-15 14:45 | XRay Report ---
XR hip RT 2V w pelvis CLINICAL HISTORY: pain post fall COMPARISON: CTA of the abdomen and pelvis January 24, 2021. Pelvis radiograph April 18, 2018. FINDINGS: Note is made of contrast within the bladder from recent contrast-enhanced CT. Several blad lucas diverticula are incidentally noted. Alignment of the total bilateral hip arthroplasties is anatom ic. There is no periprosthetic fracture. Note is made of an acute displaced fractures of the right stern perior and inferior pubic rami. Superior pubic rami fractures displaced 1.7 cm. Nondisplaced left pub ic ring fractures are better depicted on prior CT. Fractures within the right iliac bone and right sa cral ala are also better depicted on that exam. IMPRESSION: 1. Acute displaced right superior and inferior pubic rami fractures. 2. Acute minimally displaced left pubic ring fractures. 3. Right sacral ala and medial right iliac bone fractures which are better depicted on the CTA. 4. Anatomic alignment of total bilateral hip arthroplasties. No periprosthetic fracture. ACT 112: Negative or not required by law. Electronically signed by: Sajan Ferrara M.D. 06/15/2021 2:44 PM
--- NOTE | 2021-06-15 14:49 | XRay Report ---
XR femur RT 2V routine CLINICAL HISTORY: pain COMPARISON: Right femur radiographs April 18, 2018. FINDINGS: Right pubic ring fractures are better depicted on the pelvis radiographs. Alignment of the total right hip arthroplasty is anatomic. There is no periprosthetic fracture. No right femoral frac ture is present. There is no right knee joint effusion. IMPRESSION: 1. Intact total right hip arthroplasty. No periprosthetic fracture. 2. Acute right pubic ring fractures better depicted on the pelvis radiograph. ACT 112: Negative or not required by law. Electronically signed by: Sajan Ferrara M.D. 06/15/2021 2:48 PM
--- NOTE | 2021-06-15 14:49 | XRay Report ---
XR knee RT 3V CLINICAL HISTORY: Right knee pain following injury. COMPARISON: Right femur radiographs April 18, 2018. FINDINGS: Alignment of the right knee is anatomic. There is no joint effusion. There is no acute fra cture. Mild to moderate patellofemoral compartment osteoarthritis is noted. IMPRESSION: No acute fracture or joint effusion of the right knee. ACT 112: Negative or not required by law. Electronically signed by: Sajan Ferrara M.D. 06/15/2021 2:48 PM
[2021-06-15] MEDS ORDERED: HYDROmorphone INJ 0.5 MG/0.5 ML SYR IV STA ×2 (14:50→15:45)
[2021-06-15] MEDS: SODIUM CHLORIDE 0.9% 1000ML 1,000 ML IV SCH (16:32)
[2021-06-15] MEDS ORDERED: ACETAMINOPHEN 325 MG TAB PO STA (17:22)
[2021-06-15] MEDS ORDERED: PIPERACILL/TAZOBAC CONSULT ACTIVE PRN (17:22)
[2021-06-15] MEDS ORDERED: ORPHENADRINE CITRATE IV ONE (17:24)
[2021-06-15] MEDS ORDERED: PIPERACILLIN/TAZOBACTAM 3.375 GM in DEXTROSE 5% 100 ML IV SCH (17:30)
[2021-06-15] MEDS ORDERED: CYCLOBENZAPRINE HCL 10 MG TAB PO PRN (17:34)
[2021-06-15] MEDS ORDERED: NITROGLYCERIN SL 0.4 MG/TAB TAB SL PRN (17:34)
[2021-06-15] MEDS ORDERED: ONDANSETRON 4 MG OD TAB PO PRN (18:14)
--- NOTE | 2021-06-15 18:18 | History & Physical Report ---
Date of Service June 15, 2021 Assessment & Plan (1) Recurrent syncope: (2) Leukocytosis: (3) Hyponatremia: (4) Closed fracture of right iliac wing: (5) Closed fracture of left inferior pubic ramus: (6) Closed fracture of superior ramus of left pubis: (7) Closed fracture of right superior pubic ramus: (8) Closed fracture of right inferior pubic ramus: (9) Depression: (10) GERD (gastroesophageal reflux disease): (11) Dyslipidemia: (12) COPD (chronic obstructive pulmonary disease): (13) Diabetes mellitus, type II: (14) ASCVD (arteriosclerotic cardiovascular disease): (15) Alcohol use disorder: (16) H/O: CVA (cerebrovascular accident): (17) H/O carotid stenosis: Plan: Pt with recurrent episodes of syncope - this is his 4th admission for this complaint in the past 13 months. He has been seen by both cardiology and neurology previously. During the last admission, his beta radha was decreased due to concern for orthostasis and bradycardia. He has been advised of the need to stop smoking and drinking EtOH regularly, but he continues to do both. - Appreciate orthopedics input - non-operative fractures, WBAT. Will order PT/OT - Noted to have leukocytosis in ED - will cover with empiric antibiotics for now, checking blood and urine cultures - PT/OT - may need rehab at discharge - Diabetic diet, accuchecks, insulin sliding scale - Continue home medications as appropriate, in particular dual anti-platelet therapy - Again advised to stop smoking and drinking alcohol daily - Check urine sodium and osmolality - Follow labs, specifically H&H due to bleeding concerns related to hemorrhages seen on imaging today related to injuries - Gabapentin alcohol withdrawal protocol Pt's updated at the bedside. All questions were answered. Pt seen with attending physician, Dr. Sommer. Plan of care discussed and as outlined above. For additional details, please see his note. Amanda Lee PA-C Admission and Anticipated Discharge Date Admission Date: June 15, 2021 History of Present Illness Chief Complaint: Syncope Primary Care Provider: Terry Resendez MD This is a 65 y/o male with a PMH of CVA in 2013 and 2017 with residual R sided weakness and partial aphasia, CAD, DM II, COPD, alcohol use disorder, tobacco use, HTN, carotid disease (EDITH s/p stent, LICA occluded), recurrent syncope, and other medical problems listed below who presented to the ED today with syncopal episode. Pt was apparently in his usual state of health until around 12 pm today when he lost consciousness and fell. He was down for 30-60 minutes although exact duration is unknown - his son found him trying to get up and into a chair. He thinks that he landed on his buttocks when he fell - noted immediate pain in right hip area after fall. He has had at least three prior admissions for syncope - May 2020, Sep 2020 (at [facility]), and January 2021. No clear etiology has been determined. Zio was negative in 11/11. It was thought during his last admission that he may be becoming orthostatic and bradycardic due to his beta radha so the metoprolol dose was decreased. He has chronic right-sided weakness due to prior CVA. He has a history of a right carotid stent, which was patent on most recent vascular evaluation earlier this year. He has a known left carotid occlusion and is on dual anti-platelet therapy. He continues to smoke 1 PPD and drink 5-6 beers per day. Allergies Allergy/AdvReac Type Severity Reaction Status Date / Time Cipro Allergy Severe hives Verified 04/22/18 16:34 ciprofloxacin Allergy Severe hives Verified 06/15/21 15:26 simvastatin AdvReac Intermediate MUSCLE Verified 06/15/21 15:26 PAIN/WEAKNESS Urcoiwg-PMR-KiI Reductase AdvReac Intermediate MUSCLE Unverified 06/15/21 15:26 Inhibitor PAIN/WEAKNESS [Jgilwnd-Tvb-Hxi Reductase Inhibitor] Home Medications Medication Instructions Recorded Confirmed Type cholecalciferol (vitamin D3) 25 1,000 unit PO QAM #0 06/08/15 06/15/21 History mcg (1,000 unit) tablet clopidogrel 75 mg tablet 75 mg PO QAM #0 06/14/15 06/15/21 History duloxetine 60 mg capsule,delayed 60 mg PO HS #0 01/11/16 06/15/21 History release cyclobenzaprine 10 mg tablet 10 mg PO TID PRN #0 08/19/16 06/15/21 History tamsulosin 0.4 mg capsule 0.4 mg PO QAM #0 07/24/17 06/15/21 History isosorbide mononitrate 60 mg 60 mg PO QAM #0 tab 04/18/18 06/15/21 History tablet,extended release 24 hr nitroglycerin 0.4 mg sublingual 0.4 mg SUBLINGUAL DIRECTED PRN 04/18/18 1 History tablet #0 folic acid 400 mcg tablet 800 mcg PO QAM #0 04/22/18 06/15/21 History thiamine HCl (vitamin B1) 100 mg 100 mg PO QAM #0 04/22/18 06/15/21 History tablet tramadol 50 mg tablet 50 mg PO Q6H PRN #0 tab 04/22/18 06/15/21 History acetaminophen 500 mg tablet 1,000 mg PO Q6H PRN 10/02/18 06/15/21 History aspirin 81 mg tablet,delayed 81 mg PO QAM 10/02/18 06/15/21 History release hydrocodone 5 mg-acetaminophen 325 1 tab PO TID PRN 05/18/19 06/15/21 History mg tablet metformin 500 mg tablet,extended 500 mg PO QAM 06/05/20 06/15/21 History release 24 hr amlodipine 2.5 mg tablet 2.5 mg PO DAILY 06/15/21 06/15/21 History metoprolol tartrate 25 mg tablet 25 mg PO BID 06/15/21 06/15/21 History ondansetron HCl 4 mg tablet 4 mg PO Q6H PRN 06/15/21 06/15/21 History Past Med/Surg History Medical History (Updated 06/15/21 @ 19:53 by Oskar Astorga MD) Alcohol intoxication ASCVD (arteriosclerotic cardiovascular disease) CAD (coronary artery disease) "S/p attempted PCI of a [employer] of right coronary artery, procedure aborted due to 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 Benavidez" H/O repair of rotator cuff "R side; 09/2006" Hx of tonsillectomy Previous back surgery Family History (Updated 06/15/21 @ 19:08 by Laly Lee PA-C) Son Spherocytosis Other Heart disease Social History (Updated 06/15/21 @ 19:08 by Laly Lee PA-C) Smoking Status: Current every day smoker Tobacco Type: Cigarettes Cigarettes Per Day: 1 PPD; Second Hand Exposure: No; Do You Dip or Chew Tobacco: No; Hx Alcohol Use: Yes Alcohol type: beer Alcohol Intake Frequency: 4 or More x per/Week Alcohol Intake Frequency Comment: 5-6 beers/day Hx Substance Use: No Preferred Language: R[place] Communication Ability: Effective Drum Printer Required: No Beliefs That Will Affect Care: None Current Living Situation: Spouse Current Living Situation Comment: Feels Safe at Home: Yes Safety Concerns: Feels Safe At This Time Assistive Devices: None Review of Systems Review of Systems: All systems reviewed & are unremarkable except as noted in HPI & below Constitutional: no fever, no chills and no sweats Respiratory: no chest congestion and no dyspnea Cardiovascular: + syncope; no palpitations and no edema Gastrointestinal: no abdominal pain, no nausea and no vomiting Musculoskeletal: + back pain Neurologic: + falls, + localized weakness (chronic right-sided weakness) and + syncope Physical Exam Physical Exam: Please refer to Dr. Sommer's documentation for physical exam. Results & Data Results & Data ([facility]) Vital Signs (Past 12 Hours) Vital Signs Temp Pulse Pulse Resp BP BP Pulse Ox 06/15/21 17:27 81 16 143/86 H 95 06/15/21 17:00 87 17 135/85 92 06/15/21 16:30 85 22 130/86 92 06/15/21 16:00 85 22 132/77 90 06/15/21 15:58 80 18 111/69 91 06/15/21 15:30 80 23 91 06/15/21 15:00 69 24 94 06/15/21 14:35 69 20 95 06/15/21 14:00 77 26 H 96 06/15/21 13:20 36.6 C 80 16 130/61 95 Laboratory Results Laboratory Results - last 24 hr 06/15/21 06/15/21 06/15/21 13:50 13:50 13:50 WBC 15.18 H RBC 4.28 L Hgb 13.6 L Hct 39.7 L MCV 92.8 MCH 31.8 MCHC 34.3 RDW Std Deviation 43.3 RDW Coeff of Keny 12.7 Plt Count 218 MPV 8.3 Immature Gran % (Auto) 0.7 Neut % (Auto) 84.1 Lymph % (Auto) 8.1 Barnes % (Auto) 6.3 Eos % (Auto) 0.3 Baso % (Auto) 0.5 Neut # (Auto) 12.78 H Lymph # (Auto) 1.23 Barnes # (Auto) 0.95 H Eos # (Auto) 0.04 Baso # (Auto) 0.07 Immature Gran # (Auto) 0.11 H Sodium 129 L Potassium 4.7 Chloride 97 L Carbon Dioxide 24 Anion Gap 8.0 BUN 11 Creatinine 1.47 H Est Cr Clr Drug Dosing Not Reportable Est GFR ( Amer) 56.8 Est GFR (Non-Af Amer) 49.0 BUN/Creatinine Ratio 7.4 L Glucose 144 H Osmolality Calcium 8.9 Magnesium 2.2 Total Bilirubin 0.4 AST 27 ALT 28 Alkaline Phosphatase 83 Troponin I < 0.015 Total Protein 7.0 Albumin 3.4 Globulin 3.6 Albumin/Globulin Ratio 0.9 Procalcitonin TSH 1.100 Ethyl Alcohol mg/dL COVID-19 Eval Order SARS-CoV-2 (PCR) Blood Type A Positive Antibody Screen NEGATIVE 06/15/21 06/15/21 06/15/21 13:50 13:51 13:51 WBC RBC Hgb Hct MCV MCH MCHC RDW Std Deviation RDW Coeff of Keny Plt Count MPV Immature Gran % (Auto) Neut % (Auto) Lymph % (Auto) Barnes % (Auto) Eos % (Auto) Baso % (Auto) Neut # (Auto) Lymph # (Auto) Barnes # (Auto) Eos # (Auto) Baso # (Auto) Immature Gran # (Auto) Sodium Potassium Chloride Carbon Dioxide Anion Gap BUN Creatinine Est Cr Clr Drug Dosing Est GFR ( Amer) Est GFR (Non-Af Amer) BUN/Creatinine Ratio Glucose Osmolality 288 Calcium Magnesium Total Bilirubin AST ALT Alkaline Phosphatase Troponin I Total Protein Albumin Globulin Albumin/Globulin Ratio Procalcitonin < 0.05 TSH Ethyl Alcohol mg/dL < 3.0 COVID-19 Eval Order SARS-CoV-2 (PCR) Blood Type Antibody Screen 06/15/21 06/15/21 Unknown Unknown WBC RBC Hgb Hct MCV MCH MCHC RDW Std Deviation RDW Coeff of Keny Plt Count MPV Immature Gran % (Auto) Neut % (Auto) Lymph % (Auto) Barnes % (Auto) Eos % (Auto) Baso % (Auto) Neut # (Auto) Lymph # (Auto) Barnes # (Auto) Eos # (Auto) Baso # (Auto) Immature Gran # (Auto) Sodium Potassium Chloride Carbon Dioxide Anion Gap BUN Creatinine Est Cr Clr Drug Dosing Est GFR ( Amer) Est GFR (Non-Af Amer) BUN/Creatinine Ratio Glucose Osmolality Calcium Magnesium Total Bilirubin AST ALT Alkaline Phosphatase Troponin I Total Protein Albumin Globulin Albumin/Globulin Ratio Procalcitonin TSH Ethyl Alcohol mg/dL COVID-19 Eval Order Covid19 at [facility] SARS-CoV-2 (PCR) NEGATIVE Blood Type Antibody Screen Diagnostic Findings Knee X-ray 06/15/21 - IMPRESSION: No acute fracture or joint effusion of the right knee. Hip/Pelvis X-ray 06/15/21 - IMPRESSION: 1. Acute displaced right superior and inferior pubic rami fractures. 2. Acute minimally displaced left pubic ring fractures. 3. Right sacral ala and medial right iliac bone fractures which are better depicted on the CTA. 4. Anatomic alignment of total bilateral hip arthroplasties. No periprosthetic fracture. Femur X-ray 06/15/21 - IMPRESSION: 1. Intact total right hip arthroplasty. No periprosthetic fracture. 2. Acute right pubic ring fractures better depicted on the pelvis radiograph. Head CT 06/15/21 - IMPRESSION: 1. No acute intracranial findings. No change in appearance of the brain. Old left frontal lobe infarct. 2. Redemonstration of a colloid cyst. Stable ventricular system. Chest CTA 06/15/21 - IMPRESSION: 1. No thoracic aortic dissection. 2. No acute process within the chest. Abd/Pel CTA 06/15/21 - IMPRESSION: 1. No abdominal aortic dissection. 2. Acute displaced right inferior and superior pubic rami fractures. Moderate associated extraperitoneal hemorrhage. No active extravasation identified although sensitivity diminished on this exam given motion artifact and streak artifact from bilateral hip arthroplasties. 3. Acute nondisplaced left pubic ring fractures. Acute nondisplaced right sacral ala fracture. 4. Acute nondisplaced fracture of the medial right iliac bone with associated intramuscular hemorrhage within the right iliacus muscle. Possible hemorrhage within the right lateral abdominal wall musculature. Medications Administered Sodium Chloride (Nss 1000ml) 1,000 mls @ 80 mls/hr IV .[id number] BRIAN Stop: 06/16/21 17:29 Last Admin: 06/15/21 16:32 Dose: 80 mls/hr Documented by: [id number] Discontinued Medications Hydromorphone HCl (Hydromorphone Inj 0.5 Mg/0.5 Ml Syr) 0.5 mg IV NOW STA Stop: 06/15/21 14:51 Last Admin: 06/15/21 15:11 Dose: 0.5 mg Documented by: [id number] Hydromorphone HCl (Hydromorphone Inj 0.5 Mg/0.5 Ml Syr) 0.5 mg IV NOW STA Stop: 06/15/21 15:46 Last Admin: 06/15/21 15:49 Dose: 0.5 mg Documented by: [id number] Ioversol (Optiray 320 125ml) 116 ml IV ONCE ONE Stop: 06/15/21 13:50 Last Admin: 06/15/21 13:50 Dose: 116 ml Documented by: [id number] Morphine Sulfate (Morphine Sulfate 4 Mg/Ml 1 Ml Carp\\Vial) 4 mg IV NOW STA Stop: 06/15/21 13:49 Last Admin: 06/15/21 13:58 Dose: 4 mg Documented by: [id number] Ondansetron HCl (Ondansetron Inj 2 Mg/Ml 2 Ml Vial) 4 mg IV NOW STA Stop: 06/15/21 13:58 Last Admin: 06/15/21 13:58 Dose: 4 mg Documented by: [id number] Ondansetron HCl (Ondansetron Inj 2 Mg/Ml 2 Ml Vial) Confirm Administered Dose 4 mg .ROUTE .STK-MED ONE Stop: 06/15/21 13:58 Last Admin: 10/23/21 14:02 Dose: Not Given Documented by: [id number] Code Status & VTE Plan VTE Prophylaxis Plan VTE Prophylaxis will be ordered: No Supervising Physician Co-Signing Physician Notes 65 y/o male with a PMH of CVA in 2012 and 2016 with residual R sided weakness and partial aphasia, CAD, DM II, COPD, alcohol use disorder, tobacco use, HTN, carotid disease (EDITH s/p stent, LICA occluded), recurrent syncope presented to the ED 06/15 with unwitnessed syncopal episode. Pt denied preceding nausea, sweating, palpitation. Per , patient might have been unconscious anywhere between 30 min to 60 min and he was disoriented when found by his son; no bowel or bladder incontinence. Patient thinks he might have landed on his buttocks (on hard floor). Of note, patient is current smoker and drinker (since teenage). In the ED, he has leukocytosis with left shift, hyponatremia, PASQUALE, Plevic fracture for which he is started on appropriate treatment along with neuro and card consult for syncope. Upon Exam: GENERAL: Alert and oriented x3. in mild distress, on RA. HEENT: No pallor, no icterus. Pupils equal, round and reactive to light. Oral mucosa moist. NECK: No JVD, no neck masses. HEART: S1 and S2 heard. Regular rate and rhythm. No murmur, no gallop. RESPIRATORY SYSTEM: Normal AP diameter. No accessory muscle use. No wheezing, no crackles. ABDOMEN: Soft, bowel sounds present, nontender, no distention. CENTRAL NERVOUS SYSTEM: No facial droop. Speech is clear. Obeys simple commands. Moves extremities. EXTREMITIES: No edema, no erythema seen. Rt sided weakness noted but no paresis. extreme pain at hip with movement of BLE. Decreased ROM of BLE I have seen and examined the patient and have discussed the case with the provider above. I agree with the assessment and plan as stated.
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
[2021-06-15] MEDS ORDERED: PATIENT'S HEIGHT AND/OR WEIGHT NEEDED SCH (18:30)
[2021-06-15] MEDS ORDERED: GABAPENTIN 1200MG ALCOHOL WITHDRAWAL LOAD PO STA (19:06)
[2021-06-15] MEDS ORDERED: GABAPENTIN 1200MG ALCOHOL WITHDRAWAL LOAD PO ONE (19:30)
[2021-06-15] MEDS ORDERED: GABAPENTIN 600 MG TAB PO ONE ×2 (19:45→20:04)
[2021-06-15] MEDS ORDERED: DEXTROSE 50% 50 ML SYRINGE IV PRN (20:04)
[2021-06-15] MEDS ORDERED: GLUCOSE 10 TABS/TUBE PO PRN (20:04)
[2021-06-15] MEDS ORDERED: LORazepam 2 MG/4 ML VIAL IV PRN (20:04)
[2021-06-15] MEDS ORDERED: GLUCOSE 40% GEL 15 GM TUBE PO PRN (20:04)
[2021-06-15] MEDS ORDERED: LORazepam 1 MG TAB PO PRN (20:04)
[2021-06-15] MEDS ORDERED: ATIVAN IV ALCOHOL WITHDRAWL IV PRN (20:04)
[2021-06-15] MEDS ORDERED: GLUCAGON FOR INJ 1 MG VIAL SQ PRN (20:04)
[2021-06-15] MEDS ORDERED: CARBOHYDRATES FOR HYPOGLYCEMIA PO PRN (20:04)
[2021-06-15] MEDS ORDERED: LORazepam 3 MG/6 ML VIAL IV PRN (20:04)
[2021-06-15] MEDS ORDERED: LORazepam 1 MG/2 ML VIAL IV PRN (20:04)
[2021-06-15] MEDS ORDERED: MULTI-VITAMIN INFUSION 10 ML, THIAMINE HCL 100 MG, FOLIC ACID 1 MG in SODIUM CHLORIDE 0... IV ONE (21:00)
[2021-06-15 21:05] LABS: Appearance Urine Clear (Clear); Bacteria Urine Automated Negative (Negative); Bilirubin Urine Negative (Negative); Blood Urine Negative (Negative); Color Urine Yellow; Glucose Urine UA Negative (Negative); Ketones Urine Trace (Negative); Leukocyte Esterase Urine Negative (Negative); Nitrite Urine Negative (Negative); Protein Urine Trace (Negative); RBC Urine Automated 0-4 /hpf (0-4); Specific Gravity Urine > 1.045 (1.000-1.030); Urobilinogen Urine Negative (Negative); pH Urine 5.5 (4.5-7.5)
[2021-06-15] MEDS: MoRPHine SULFATE 2 MG/ML CARP IV PRN (21:36)
[2021-06-15] MEDS: FOLIC ACID 1 MG in SYRINGE 9.8 ML IV SCH (21:45)
[2021-06-15] MEDS: THIAMINE HCL 100 MG in SYRINGE 9 ML IV SCH (21:46)
[2021-06-15] MEDS: INSULIN ASPART 100 UNITS/ML 3 ML PEN SC SCH (21:57)
[2021-06-15] MEDS: INSULIN GLARGINE SOLOSTAR 100 UNITS/ML 3 ML PEN SC SCH (21:59)
[2021-06-15] MEDS: METOPROLOL TARTRATE 25 MG TAB PO SCH (22:30)
[2021-06-15] MEDS: DULoxetine HCL 60 MG CAP PO SCH (22:30)
[2021-06-16] MEDS: PIPERACILLIN/TAZOBACTAM 3.375 GM in DEXTROSE 5% 100 ML IV SCH ×3 (02:12→18:14)
[2021-06-16] MEDS: SODIUM CHLORIDE 0.9% 1000ML 1,000 ML IV SCH (05:05)
[2021-06-16] MEDS: GABAPENTIN 600 MG TAB PO SCH ×3 (06:02→22:00)
[2021-06-16 07:11] LABS: Hematocrit (blood only) 35.3 % (42-52); Mean Corpuscular Hemoglobin 31.3 pg (25-34); Mean Corpuscular Volume 91.9 fL (80-100); Mean Platelet Volume 8.6 fL (7.4-10.4); Platelet Count 201 K/uL (130-400); RDW Coefficient of Variation 13.1 % (11.5-14.5); RDW Standard Deviation 44.7 fL (36.4-46.3); Red Blood Count 3.84 M/uL (4.7-6.1); White Blood Count 8.08 K/uL (4.8-10.8)
[2021-06-16 07:38] LABS: BUN Creatinine Ratio 11.6 (10-20); Calcium 8.6 mg/dl (8.5-10.1); Creatinine Clr Calc Pharmacy 80.3 ml/min; Est GFR (African American) 83.4 ml/min; Magnesium 2.4 mg/dl (1.8-2.4); Potassium 4.1 mmol/L (3.5-5.1)
[2021-06-16 07:39] LABS: Phosphorus 3.6 mg/dl (2.5-4.9)
[2021-06-16] MEDS: INSULIN ASPART 100 UNITS/ML 3 ML PEN SC SCH ×4 (08:10→21:59)
[2021-06-16] MEDS: amLODIPine BESYLATE 5 MG TAB PO SCH (08:11)
[2021-06-16] MEDS: TAMSULOSIN HCL 0.4 MG CAP PO SCH (08:12)
[2021-06-16] MEDS: ISOSORBIDE MONO EXTENDED REL 60 MG TABCR PO SCH (08:13)
[2021-06-16] MEDS: METOPROLOL TARTRATE 25 MG TAB PO SCH ×2 (08:13→22:00)
[2021-06-16] MEDS: CHOLECALCIFEROL 1,000 UNITS 25 MCG TAB PO SCH (08:14)
[2021-06-16] MEDS: NICOTINE 21 MG/24 HR TDSY TD SCH (08:14)
[2021-06-16] MEDS: THIAMINE HCL 100 MG in SYRINGE 9 ML IV SCH (08:15)
[2021-06-16] MEDS: INSULIN GLARGINE SOLOSTAR 100 UNITS/ML 3 ML PEN SC SCH ×2 (08:15→21:58)
[2021-06-16] MEDS: FOLIC ACID 1 MG in SYRINGE 9.8 ML IV SCH (08:16)
[2021-06-16] MEDS: MoRPHine SULFATE 2 MG/ML CARP IV PRN ×2 (08:16→18:15)
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
--- NOTE | 2021-06-16 10:42 | Progress Notes ---
DATE OF SERVICE: 06/16/2021. SUBJECTIVE: A 65-year-old gentleman admitted with syncopal episode of unclear etiology. He has also got a pelvis fracture. He was seen in the Emergency Room by Dr. Resendiz. He has been a long-term pat ient of mine. He has had multiple syncopal episodes over the 2 years without any real clear etiology . He does not remember really what happened. He is complaining of some back pain and some hip pain only. He does have a history of bilateral hip replacements done by myself years ago. No interval pr oblems. OBJECTIVE: VITAL SIGNS: Temperature 36.6. Vital signs are stable. GENERAL: Physical examination shows a pleasant 65-year-old gentleman. He is sitting up in bed and l ooks pretty comfortable. EXTREMITIES: Examination of his legs reveals no obvious deformity. His leg lengths are equal. He c an flex and extend his toes appropriately. He has got some pain with passive hip motion on the right , but not on the left. No real knee effusions in either side. X-RAYS: I did review his x-rays including a CT scan as well as right hip and pelvis films. He does have superior and inferior pubic rami fractures on the right and superior ramus fracture on the left with posterior sacral fracture. Minimal displacement. Hip replacements look to be in good position without signs of problems. ASSESSMENT: A 65-year-old gentleman with multiple medical comorbidities, status post bilateral hip r eplacements with a stable pelvis fracture. This does not need any further intervention. His hemoglo bin and hematocrit are stable. He can be mobilized as tolerated. He can weight bear as tolerated. The etiology of his syncopal episodes is unclear. PLAN: At this point, we will begin therapy. He can weight bear as tolerated on his lower extremitie s. Likely need a walker for the first 4 weeks. I need to check him back in clinic in 1 month. Any orthopedic questions can be directed to me at [phone]. Job ID: [id number]
[2021-06-16] MEDS: THIAMINE HCL 100 MG TAB PO SCH (11:40)
[2021-06-16] MEDS: FOLIC ACID 400 MCG TAB PO SCH (11:40)
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
--- NOTE | 2021-06-16 17:31 | CT Scan Report ---
CT cervical spine wo con CLINICAL HISTORY: loc mult fx back pain pelvic fractures are seen on prior exam. TECHNIQUE: Multidetector row helical CT of the cervical spine was performed without administration of intravenous contrast. Coronal and sagittal reformations were obtained. Automated dose lowering techn iques and/or adjustment according to patient size were utilized for this exam. Comparison: None available at the time of this dictation. FINDINGS: No acute fractures or subluxations are identified. The alignment is normal. The vertebral body height s and disk spaces are well maintained. Partial visualization of a right carotid stent. IMPRESSION: No evidence of acute fracture in cervical spine. ACT 112: Negative or not required by law. Electronically signed by: Jimmy Qureshi M.D. 06/16/2021 5:29 PM
--- NOTE | 2021-06-16 17:33 | CT Scan Report ---
CT thoracic spine wo con CLINICAL HISTORY: unwtnessed fall with loc, back pain, mult fx TECHNIQUE: Multidetector row helical CT of the thoracic spine was performed without administration of intravenous contrast. Coronal and sagittal reformations were obtained. Automated dose lowering techn iques and/or adjustment according to patient size were utilized for this exam. Comparison: None available at the time of this dictation. FINDINGS: No acute fractures are identified. Degenerative changes are noted in the visualized spine. Vertebral body alignment is within normal limits. Surrounding soft tissues are unremarkable. IMPRESSION: No evidence of acute fracture or traumatic subluxation. ACT 112: Negative or not required by law. Electronically signed by: Jimmy Qureshi M.D. 06/16/2021 5:32 PM
--- NOTE | 2021-06-16 17:37 | CT Scan Report ---
CT lumbar spine wo con CLINICAL HISTORY: fall with back pain and urinary retention. mult fx TECHNIQUE: Multidetector row helical CT of the lumbar spine was performed without administration of i ntravenous contrast. Coronal and sagittal reformations were obtained. Automated dose lowering techniq ues and/or adjustment according to patient size were utilized for this exam. Comparison: Comparison is made to CT lumbar spine 06/05/2020 FINDINGS: For counting purposes, the last complete intervertebral disc space is considered L5-S1. No acute fractures are identified. Redemonstration of vertebral plana with cement arthroplasty at L2. Vertebral body alignment is within normal limits. Surrounding soft tissues are unremarkable. IMPRESSION: Degenerative changes and old compression fracture of L2 without evidence of acute fracture. Please se e CT abdomen pelvis for detailed findings of pelvic ring fractures. ACT 112: Negative or not required by law. Electronically signed by: Jimmy Qureshi M.D. 06/16/2021 5:35 PM
[2021-06-16] MEDS ORDERED: GADOBUTROL 65ML VIAL IV ONE (17:50)
--- NOTE | 2021-06-16 17:59 | Magnetic Resonance Report ---
MR brain wo/w con CLINICAL HISTORY: loc, poss sz TECHNIQUE: Multiplanar and multisequence MR images of the brain were obtained prior to and following administration of gadolinium contrast. Comparison: Comparison is made to MRI brain 06/06/2020 FINDINGS: No abnormal restricted diffusion is identified. Foci of T2 and FLAIR hyperintensity are noted in the paraventricular areas consistent with chronic small vessel ischemic disease. Focal encephalomalacia i s in the left frontal region. No edema is seen in the hippocampus bilaterally. Ex vacuo ventriculomeg dagoberto and sulcal enlargement is noted compatible with diffuse encephalomalacia. There is no evidence of acute intraparenchymal hemorrhage. No extra axial fluid collections are seen. There are no masses, m ass effect, or midline shift. No abnormal enhancement is seen. The corpus callosum, pituitary gland, and cerebellar tonsils appear grossly unremarkable. Flow voids of the major intracranial arterial vessels are identified. The imaged portions of the para nasal sinuses, mastoid air cells, and orbits are unremarkable. IMPRESSION: No acute abnormalities. No edema in the hippocampus bilaterally. ACT 112: Negative or not required by law. Electronically signed by: Jimmy Qureshi M.D. 06/16/2021 5:57 PM
--- NOTE | 2021-06-16 18:08 | Hospitalist Progress Note ---
Date of Service June 16, 2021 Assessment & Plan (1) Recurrent syncope: (2) Closed fracture of right iliac wing: (3) Closed fracture of left inferior pubic ramus: (4) Closed fracture of superior ramus of left pubis: (5) Closed fracture of right superior pubic ramus: (6) Closed fracture of right inferior pubic ramus: (7) Bacteremia: Plan: 65 y/o male with a PMH of CVA in 2012 and 2016 with residual R sided weakness and partial aphasia, CAD, DM II, COPD, alcohol use disorder, tobacco use, HTN, carotid disease (EDITH s/p stent, LICA occluded), recurrent syncope presented to the ED 06/15 with unwitnessed syncopal episode. Pt denied preceding nausea, sweating, palpitation. Per , patient might have been unconscious anywhere between 30 min to 60 min and he was disoriented when found by his son; no bowel or bladder incontinence. Of note, patient is current smoker 1 PPD and drinker 5- 6 beers/d (since teenage). #. Recurrent syncope Prior 3 events of syncope in the past 13 months; seen by neurology and cardiology in the past. In the last admission, his beta-radha was decreased due to concern of orthostasis and bradycardia. Patient had been advised to stop smoking tobacco and drinking alcohol, patient continues to use both of them. Admitting CT head with no acute finding, redemonstration of a colloid cyst. Admitting EKG: NSR Neurology and cardiology consulted Neurology: Repeat MRI, EEG, ambulatory EEG as an outpatient, empiric treatment with anticonvulsant. Hold cyclobenzaprine Orthostatic vitals Fall precaution, continue to monitor #. Multiple pelvic fractures Closed fracture of right iliac wing: Closed fracture of left inferior pubic ramus: Closed fracture of superior ramus of left pubis: Closed fracture of right superior pubic ramus: Closed fracture of right inferior pubic ramus: Patient had a syncopal event [employer], landed on his buttocks on hard floor. Patient is a chronic alcoholic and tobacco abuser which will contribute to his increased chances of fracture. Admitting CTAP: Displaced pelvic rami fractures with associated extraperitoneal hemorrhage. Nondisplaced pubic ring fractures. Nondisplaced right sacral ala fracture. Nondisplaced right medial iliac bone fracture with associated intramuscular hemorrhage. Orthopedics on board: Conservative management. Mobilize as tolerated. Weightbearing as tolerated. Walker for first 4 weeks. Follow-up in 1 month upon discharge. Continue pain management. PT/OT #. Bacteremia Admitting blood culture positive for gram-positive cocci within 24 hours, source unknown Continue with 06/15 Zosyn, will add vancomycin. Patient afebrile, WBC trending down Await final culture and sensitivity, taper down antibiotic as appropriate. #. Mild hyponatremia Patient has chronic hyponatremia with baseline around 130-131, likely secondary to decreased solute intake and increase alcohol intake Admitting sodium level 129 Resolved to baseline #. Alcohol abuse Six beers a day AWSS protocol #. Tobacco abuse 1 packs a day Nicotine patch #. Chronic medical conditions: Depression/GERD/HLD/COPD/DM type II/CAD/h/o CVA/h/o carotid stenosis Resume home medications #. Diabetes type 2 On sliding scale DVT prophylaxis: SCDs, pelvic fracture associated with extraperitoneal and intramuscular hemorrhage, no chemoprophylaxis. Follow daily H&H. Disposition: PT/OT - may need rehab at discharge Admission and Anticipated Discharge Date Admission Date: June 15, 2021 Subjective Patient was lying in bed, on 2 L nasal cannula oxygen, in mild distress, no new acute events overnight. Patient is eating okay. Patient has not moved bowel per RN. Urinary catheter in situ with yellow urine collection. Patient reports low back and pelvic pain, more with movement, patient getting pain medications. Patient denies headache/cough/fever/chills/other review of symptoms. Physical Exam Physical Exam: GENERAL: Alert and oriented x3. in mild distress, on RA. HEENT: No pallor, no icterus. Pupils equal, round and reactive to light. Oral mucosa moist. NECK: No JVD, no neck masses. HEART: S1 and S2 heard. Regular rate and rhythm. No murmur, no gallop. RESPIRATORY SYSTEM: Normal AP diameter. No accessory muscle use. No wheezing, no crackles. ABDOMEN: Soft, bowel sounds present, nontender, no distention. CENTRAL NERVOUS SYSTEM: No facial droop. Speech is clear. Obeys simple commands. Moves extremities. EXTREMITIES: No edema, no erythema seen. Rt sided weakness noted but no paresis. Pain at hip with movement of BLE. Decreased ROM of BLE. Distal Neurovascular status normal. Results & Data Results & Data ([facility]) Vital Signs (Past 12 Hours) Vital Signs Temp Pulse Pulse Resp BP Pulse Ox 06/16/21 16:30 77 06/16/21 14:51 36.8 C 76 18 129/69 97 06/16/21 12:49 97 06/16/21 11:30 36.6 C 66 19 136/75 97 06/16/21 07:30 79 06/16/21 07:26 36.6 C 67 22 150/81 H 97 (1) Closed fracture of left inferior pubic ramus Encounter type: initial encounter Qualified Code(s): S32.592A - Other specified fracture of left pubis, initial encounter for closed fracture (2) Closed fracture of superior ramus of left pubis Encounter type: initial encounter Qualified Code(s): S32.512A - Fracture of superior rim of left pubis, initial encounter for closed fracture (3) Closed fracture of right superior pubic ramus Encounter type: initial encounter Qualified Code(s): S32.511A - Fracture of superior rim of right pubis, initial encounter for closed fracture (4) Closed fracture of right inferior pubic ramus Encounter type: initial encounter Qualified Code(s): S32.591A - Other specif ied fracture of right pubis, initial encounter for closed fracture
[2021-06-16] MEDS ORDERED: VANCOMYCIN CONSULT ACTIVE PRN (18:21)
[2021-06-16] MEDS ORDERED: VANCOMYCIN HCL 1,500 MG in SODIUM CHLORIDE 0.9% 500 ML IV SCH (18:30)
[2021-06-16] MEDS ORDERED: VANCOMYCIN HCL 2,000 MG in SODIUM CHLORIDE 0.9% 500 ML IV ONE (18:45)
--- NOTE | 2021-06-16 19:54 | Pharmacy Report ---
Pharmacy Vanc AUC Short Note - Date of Service June 16, 2021 - Assessment & Plan Assessment 65 year old M receiving IV vancomycin for treatment of positive blood culture. Patient presents with recurrent syncopal episodes. Initiated on zosyn on admission empirically. Pertinent microbiologic data includes: 06/15 BCx (+) 1/ gram (+) cocci in clusters. MRSA blood PCR (-). S. aureus blood PCR (+). Day # 1 of antimicrobial therapy. Plan Vancomycin * AUC/SRINIVAS is the preferred PK/PD target for vancomycin * AUC guided dosing is effective and associated with decreased risk of nephrotoxicity compared to traditional trough targets * Trough level of 18mcg/mL is predicted to achieve target AUC/SRINIVAS of 400-600 mg/L.hr and may be associated with a 14 % risk of nephrotoxicity * Vanc 2gm X 1 IV LD followed by 1gm IV q12h maintenance * Trough level will be obtained around steady state if vancomycin therapy continued. Pharmacy will continue to follow and will adjust dose/frequency as necessary. Thank you.
[2021-06-16] MEDS: DULoxetine HCL 60 MG CAP PO SCH (22:00)
[2021-06-17] MEDS: PIPERACILLIN/TAZOBACTAM 3.375 GM in DEXTROSE 5% 100 ML IV SCH ×3 (02:38→17:00)
[2021-06-17] MEDS: GABAPENTIN 600 MG TAB PO SCH ×3 (06:12→23:02)
[2021-06-17] MEDS ORDERED: VANCOMYCIN HCL 1,000 MG in SODIUM CHLORIDE 0.9% 250 ML IV SCH (07:00)
[2021-06-17 07:02] LABS: Estimated Average Glucose 120 mg/dl; Hemoglobin A1C 5.8 % (4.5-5.6)
[2021-06-17 07:24] LABS: Hematocrit (blood only) 33.9 % (42-52); Hemoglobin 11.2 g/dL (14.0-18.0); Mean Corpuscular Hemoglobin 31.3 pg (25-34); Mean Corpuscular Volume 94.7 fL (80-100); Mean Platelet Volume 8.5 fL (7.4-10.4); Platelet Count 163 K/uL (130-400); RDW Standard Deviation 45.5 fL (36.4-46.3); Red Blood Count 3.58 M/uL (4.7-6.1); White Blood Count 8.19 K/uL (4.8-10.8)
[2021-06-17 07:57] LABS: BUN Creatinine Ratio 11.1 (10-20); Creatinine Clr Calc Pharmacy 89.4 ml/min; Est GFR (African American) 92.7 ml/min; Potassium 4.4 mmol/L (3.5-5.1)
[2021-06-17] MEDS: INSULIN ASPART 100 UNITS/ML 3 ML PEN SC SCH ×4 (08:26→20:59)
[2021-06-17] MEDS: CHOLECALCIFEROL 1,000 UNITS 25 MCG TAB PO SCH (08:28)
[2021-06-17] MEDS: INSULIN GLARGINE SOLOSTAR 100 UNITS/ML 3 ML PEN SC SCH ×2 (08:28→21:03)
[2021-06-17] MEDS: ISOSORBIDE MONO EXTENDED REL 60 MG TABCR PO SCH (08:28)
[2021-06-17] MEDS: NICOTINE 21 MG/24 HR TDSY TD SCH (08:29)
[2021-06-17] MEDS: METOPROLOL TARTRATE 25 MG TAB PO SCH ×2 (08:29→21:02)
[2021-06-17] MEDS: TAMSULOSIN HCL 0.4 MG CAP PO SCH (08:30)
[2021-06-17] MEDS: amLODIPine BESYLATE 5 MG TAB PO SCH (08:30)
[2021-06-17] MEDS: THIAMINE HCL 100 MG TAB PO SCH (08:41)
[2021-06-17] MEDS: FOLIC ACID 400 MCG TAB PO SCH (08:41)
[2021-06-17] MEDS: ACETAMINOPHEN 500 MG TAB PO PRN (08:43)
--- NOTE | 2021-06-17 10:43 | Cardiology Progress Note ---
Date of Service June 17, 2021 Assessment & Plan (1) Syncope: (2) Hyponatremia: (3) H/O: CVA (cerebrovascular accident): (4) Alcohol use disorder: (5) Recurrent syncope: (6) Fall: (7) Classic migraine: (8) ASCVD (arteriosclerotic cardiovascular disease): (9) Statin intolerance: (10) COPD (chronic obstructive pulmonary disease): (11) Diabetes mellitus, type II: (12) Left thalamic infarction: Plan: This patient has previously been followed by Dr. Mondragon through our clinic. According to his notes patient has had multiple syncopal episodes which he felt were connected to alcohol abuse. An extensive cardiac work-up previously was unremarkable including long-term monitor results which failed to show arrhythmias. At present, I agree with checking orthostatic blood pressure changes. I would be concerned regarding alcohol withdrawal during this admission. Admission and Anticipated Discharge Date Admission Date: June 15, 2021 Subjective No cardiac complaints and no events overnight. Review of Systems Review of Systems: Review of Systems: See HPI for pertinent positives. All other 10 point review of systems are negative. Physical Exam Physical Exam: General: no acute distress and stated age Head: normocephalic, no masses, lesions, tenderness or abnormalities Eyes: conjunctiva are pink and non-injected, sclera clear Neck: supple, no adenopathy, no bruits, normal jugular venous pulse, no hepatojugular reflux Chest: normal shape and normal respiratory effort Lungs: clear to auscultation and percussion Cardiac Exam: - regular rate & rhythm, no murmurs gallops or rubs - normal S1, normal S2 Pulses: 2(+) throughout Abdomen: abdomen soft, non-tender, no abnormal masses and no hepatosplenomegaly Musculoskeletal: no gait disturbance, no joint inflammation, no deforming arthritis Extremities: no edema and no cyanosis Neuro: grossly normal exam Results & Data ([facility]) Vital Signs (Past 12 Hours) Vital Signs Temp Pulse Pulse Resp BP Pulse Ox 06/17/21 07:31 36.7 C 75 18 150/87 H 92 06/17/21 07:23 79 06/17/21 04:04 36.8 C 77 21 143/79 H 91 06/16/21 22:48 37.4 C 89 18 155/80 H 92 Laboratory Results Laboratory Results - last 24 hr 1006/16/21 06/16/21 16:41 06:33 11:09 WBC RBC Hgb Hct MCV MCH MCHC RDW Std Deviation RDW Coeff of Keny Plt Count MPV Sodium Potassium Chloride Carbon Dioxide Anion Gap BUN Creatinine Est Cr Clr Drug Dosing Est GFR ( Amer) Est GFR (Non-Af Amer) BUN/Creatinine Ratio Glucose POC Glucose Estimat Average Glucose 120 Hemoglobin A1c 5.8 H Calcium Prolactin 6.36 Bld Cult Staph aureus PCR Positive A Blood Culture MRSA PCR Negative 06/16/21 06/16/21 06/16/21 11:16 16:11 19:52 WBC RBC Hgb Hct MCV MCH MCHC RDW Std Deviation RDW Coeff of Keny Plt Count MPV Sodium Potassium Chloride Carbon Dioxide Anion Gap BUN Creatinine Est Cr Clr Drug Dosing Est GFR ( Amer) Est GFR (Non-Af Amer) BUN/Creatinine Ratio Glucose POC Glucose 112 H 176 H 151 H Estimat Average Glucose Hemoglobin A1c Calcium Prolactin Bld Cult Staph aureus PCR Blood Culture MRSA PCR 06/17/21 06/17/21 06/17/21 07:02 07:02 07:07 WBC 8.19 RBC 3.58 L Hgb 11.2 L Hct 33.9 L MCV 94.7 MCH 31.3 MCHC 33.0 RDW Std Deviation 45.5 RDW Coeff of Keny 13.0 Plt Count 163 MPV 8.5 Sodium 135 L Potassium 4.4 Chloride 105 Carbon Dioxide 25 Anion Gap 6.0 BUN 11 Creatinine 0.98 Est Cr Clr Drug Dosing 89.4 Est GFR ( Amer) 92.7 Est GFR (Non-Af Amer) 80.0 BUN/Creatinine Ratio 11.1 Glucose 114 H POC Glucose 118 H Estimat Average Glucose Hemoglobin A1c Calcium 9.0 Prolactin Bld Cult Staph aureus PCR Blood Culture MRSA PCR Medications Administered Current Inpatient Medications Acetaminophen (Acetaminophen 500 Mg Tab) 1,000 mg PO Q8H PRN PRN Reason: Fever Or Pain Stop: 07/15/21 18:15 Last Admin: 06/17/21 08:43 Dose: 1,000 mg Documented by: Hydrocodone Bitart/Acetaminophen (Hydrocodone/Acetamophen 5/325mg Tab) 1 tab PO TID PRN PRN Reason: Pain Stop: 06/29/21 17:33 Amlodipine Besylate (Amlodipine Besylate 5 Mg Tab) 2.5 mg PO DAILY BRIAN Stop: 07/16/21 08:59 Last Admin: 06/17/21 08:30 Dose: 2.5 mg Documented by: Dextrose (Dextrose 50% 50 Ml Syringe) 25 - 50 ml IV UD PRN; Protocol PRN Reason: Hypoglycemia Protocol Stop: 07/15/21 20:03 Duloxetine HCl (Duloxetine Hcl 60 Mg Cap) 60 mg PO HS BRIAN Stop: 07/15/21 20:59 Last Admin: 06/16/21 22:00 Dose: 60 mg Documented by: Folic Acid (Folic Acid 400 Mcg Tab) 800 mcg PO QAM BRIAN Stop: 07/16/21 08:59 Last Admin: 06/17/21 08:41 Dose: 800 mcg Documented by: Gabapentin (Gabapentin 600 Mg Tab) 600 mg PO Q8H BRIAN Stop: 06/17/21 14:01 Last Admin: 06/17/21 06:12 Dose: 600 mg Documented by: Gabapentin (Gabapentin 600 Mg Tab) 600 mg PO Q12H BRIAN Stop: 06/18/21 12:01 Gabapentin (Gabapentin 600 Mg Tab) 600 mg PO Q24H BRIAN Stop: 06/19/21 12:01 Glucagon (Glucagon For Inj 1 Mg Vial) 1 mg SQ UD PRN; Protocol PRN Reason: Hypoglycemia Protocol Stop: 07/15/21 20:03 Glucose (Glucose 10 Tabs/Tube) 4 - 8 tabs PO UD PRN; Protocol PRN Reason: Hypoglycemia Protocol Stop: 07/15/21 20:03 Glucose (Glucose 40% Gel 15 Gm Tube) 15 - 30 gm PO UD PRN; Protocol PRN Reason: Hypoglycemia Protocol Stop: 07/15/21 20:03 Lorazepam (Ativan) 1 mg in 2 mls @ 2 mls/min IV UD PRN; Protocol PRN Reason: EtOH Withdrawl AWSS Score 6,7 Stop: 07/15/21 20:03 Lorazepam (Ativan) 2 mg in 4 mls @ 4 mls/min IV UD PRN; Protocol PRN Reason: EtOH Withdrawl AWSS Score 8,9 Stop: 07/15/21 20:03 Lorazepam (Ativan) 3 mg in 6 mls @ 4 mls/min IV ONCE PRN; Protocol PRN Reason: EtOH Withdrawl AWSS Score >=10 Stop: 07/15/21 20:03 Piperacillin Sod/Tazobactam (Sod 3.375 gm/ Dextrose) 115 mls @ 28.75 mls/hr IV Q8H [facility]; Protocol Stop: 06/18/21 01:59 Last Infusion: 06/17/21 06:43 Dose: Infused Documented by: Vancomycin HCl 1,000 mg/ (Sodium Chloride) 270 mls @ 200 mls/hr IV Q12H [facility] Stop: 07/01/21 06:59 Last Infusion: 06/17/21 08:31 Dose: Infused Documented by: Insulin Aspart (Insulin Aspart 100 Units/Ml 3 Ml Pen) 0 units SC ACHS [facility] Stop: 07/15/21 20:59 Last Admin: 06/17/21 08:26 Dose: 1 units Documented by: Insulin Glargine (Insulin Glargine Solostar 100 Units/Ml 3 Ml Pen) 7 units SC BID [facility] Stop: 07/15/21 20:59 Last Admin: 06/17/21 08:28 Dose: 7 units Documented by: Isosorbide Mononitrate (Isosorbide Forrest Extended Rel 60 Mg Tabcr) 60 mg PO QAM [facility] Stop: 07/16/21 08:59 Last Admin: 06/17/21 08:28 Dose: 60 mg Documented by: Lorazepam (Lorazepam 1 Mg Tab) 1 mg PO ONE PRN; Protocol PRN Reason: EtoH Withdrawal AWSS 6-10 Metoprolol Tartrate (Metoprolol Tartrate 25 Mg Tab) 25 mg PO BID [facility] Stop: 07/15/21 20:59 Last Admin: 06/17/21 08:29 Dose: 25 mg Documented by: Miscellaneous (Carbohydrates For Hypoglycemia ) 15 - 30 gm PO UD PRN PRN Reason: Hypoglycemia Protocol Stop: 07/15/21 20:03 Miscellaneous (Remove Nicoderm Patch) 1 ea N/A DAILY@0859 [facility] Stop: 07/16/21 08:58 Last Admin: 06/17/21 08:25 Dose: 1 ea Documented by: Miscellaneous Information (Piperacill/Tazobac Consult Active) 1 ea N/A UD PRN PRN Reason: Consult Stop: 07/15/21 17:21 Miscellaneous Information (Vancomycin Consult Active) 1 ea N/A UD PRN PRN Reason: Consult Stop: 07/16/21 18:20 Morphine Sulfate (Morphine Sulfate 2 Mg/Ml Carp) 2 mg IV Q6H PRN PRN Reason: Pain Stop: 06/29/21 20:03 Last Admin: 06/16/21 18:15 Dose: 2 mg Documented by: Nicotine (Nicotine 21 Mg/24 Hr Tdsy) 21 mg TD [facility] Stop: 07/16/21 08:59 Last Admin: 06/17/21 08:29 Dose: 21 mg Documented by: Nitroglycerin (Nitroglycerin Sl 0.4 Mg/Tab Tab) 0.4 mg SL UD PRN PRN Reason: Chest Pain Stop: 07/15/21 17:33 Ondansetron HCl (Ondansetron 4 Mg Od Tab) 4 mg PO Q6H PRN PRN Reason: Nausea And Vomiting Stop: 07/15/21 18:13 Tamsulosin HCl (Tamsulosin Hcl 0.4 Mg Cap) 0.4 mg PO [facility] Stop: 07/16/21 08:59 Last Admin: 06/17/21 08:30 Dose: 0.4 mg Documented by: Thiamine HCl (Thiamine Hcl 100 Mg Tab) 100 mg PO [facility] Stop: 07/16/21 08:59 Last Admin: 06/17/21 08:41 Dose: 100 mg Documented by: Vitamin D (Cholecalciferol 1,000 Units 25 Mcg Tab) 1,000 units PO [facility] Stop: 07/16/21 08:59 Last Admin: 06/17/21 08:28 Dose: 1,000 units Documented by: (1) Syncope Syncope type: unspecified Qualified Code(s): R55 - Syncope and collapse (2) Fall Encounter type: initial encounter Qualified Code(s): W19.XXXA - Unspecified fall, initial encounter
--- NOTE | 2021-06-17 12:23 | Neurology Progress Note ---
Date of Service June 17, 2021 Assessment & Plan (1) Syncope: Plan: 1. EEG no seizure focus or spikes 2. MRI brain/c spine, t spine, l spine- no acute fractures 3. EEG- 72 hours as outpatient 4. may need to treat prophy AED but no clear evidence this is seizure events 5. cardiology for any recommendations 6. PT/OT for discharge needs (2) Alcohol use disorder: Admission and Anticipated Discharge Date Admission Date: June 15, 2021 Supervising Physician Co-Signing Physician Notes I have seen and discussed above patient with Dr Elsie Capone, neurology patient seen and examined. MRI of the brain unchanged CT of the CAT and L-spine does not show an acute fracture. MRI of the brain normal prolactin level normal. EEG normal. Inspecting the patient's tongue it does appear that he has a laceration which is tiny on the right side of his tongue there is some tenderness there upper extremities full lower extremities are likely full as well but limited by pain more so on the right than the left also the patient has a relative hemiparesis from his prior stroke. He is intact reflexes downgoing toes no clonus no sensory loss to light touch other than some mild side to side difference which is pre-existing. Since the stroke. No trunk level This is a difficult patient with multiple episodes of loss of consciousness all the been unwitnessed. He clinically at times has orthostatic hypotension but would be unusual for this to have been an episode of the same and have him not regain consciousness quickly. I had thought the elevated white count might support seizure but no blood culture is positive Prolactin level is normal We spoke briefly about empirically treating him with Keppra for seizure and he can give that some thought I think it is unlikely that it would hide anything additional such as cardiovascular orthostatic hypotension. We spoke about alcohol alcohol withdrawal alcohol admit reducing seizure threshold. I encouraged him to stop alcohol to take that the picture including in terms of the differential. I believe his complaints in his legs are related to hip pain. He does not appear to be overly weak and I am reassured that he walked in therapy today. See him tomorrow Khushbu Sweeney is a 65 year old male with a PMH -CVA in 2013 and 2017 with residual R sided weakness and partial aphasia, CAD, DM II, COPD, alcohol use disorder, tobacco use, HTN, carotid disease (EDITH s/p stent, LICA occluded), recurrent syncope. who presented to [facility] with syncopal episode. Prior to arrival he had a LOC and fell. He was down for 30-60 minutes although exact duration is unknown - his son found him trying to get up and into a chair. There was immediate pain in right hip area after fall. His previous admission for syncope were May 2020, Sep 2020 (at [facility]), and January 2021. He wore a Zio was negative in 11/11. It was thought during his last admission that he may be becoming orthostatic and bradycardic due to his beta radha so the metoprolol dose was decreased. He has chronic right-sided weakness due to prior CVA. He has a history of a right carotid stent, which was patent on most recent vascular evaluation earlier this year. He has a known left carotid occlusion and is on dual anti-platelet therapy. He continues to smoke 1 PPD and drink 5-6 beers per day. Today he thinks he is having issues with moving his legs partially because they are weak and partially because it is painful. denies CP, SOB, abdominal pain. Review of Systems Review of Systems: All systems reviewed & are unremarkable except as noted in HPI & below Physical Exam Physical Exam: Physical Exam: Constitutional: appearance nourished, healthy and normal Ears, Nose, Mouth and Throat: mucous membranes moist, no injection and skin normal, eyes normal Cardiovascular: normal S-1 and S-2 and regular rate and rhythm Respiratory: clear to auscultation (CTA) and no rales, rhonchi or wheeze Musculoskeletal: no peripheral edema and good distal pulses Skin: no stigmata of neurocutaneous disease noted and normal and intact Eyes: extraocular muscles intact (EOMI) NEUROLOGIC EXAMINATION: Mental status: Alert and interactive Oriented to full date and location Oriented to person Speech fluent with no evidence of aphasia, some trouble with complex communication Cranial Nerves smile eye brow raise symmetric Reflexes: Deep tendon reflexes were symmetrical and graded 2/5. toes neutral Sensory: light cool vibration Coordination: finger to nose no bipass Gait/Stance: Posture lying in bed Motor: Negative for pronator drift of out stretched arms with eyes closed. 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 deltoids 5/5 bilaterally hip flex right 4+/5 plantar f jessie ext 5/5 Results & Data ([facility]) Vital Signs (Past 12 Hours) Vital Signs Temp Pulse Pulse Resp BP Pulse Ox 06/17/21 10:14 80 94/58 L 06/17/21 10:10 79 120/69 06/17/21 10:04 36.4 C L 76 18 154/83 H 93 06/17/21 07:31 36.7 C 75 18 150/87 H 92 06/17/21 07:23 79 06/17/21 04:04 36.8 C 77 21 143/79 H 91 Laboratory Results Abnormal lab results 06/16/21 06/16/21 06/16/21 Range/Units 06:33 16:11 19:52 RBC (4.7-6.1) M/uL Hgb (14.0-18.0) g/dL Hct (42-52) % Sodium (136-145) mmol/L Glucose (70-99) mg/dl POC Glucose 176 H 151 H (70-99) mg/dl Hemoglobin A1c 5.8 H (4.5-5.6) % 06/17/21 06/17/21 06/17/21 Range/Units 07:02 07:02 07:07 RBC 3.58 L (4.7-6.1) M/uL Hgb 11.2 L (14.0-18.0) g/dL Hct 33.9 L (42-52) % Sodium 135 L (136-145) mmol/L Glucose 114 H (70-99) mg/dl POC Glucose 118 H (70-99) mg/dl Hemoglobin A1c (4.5-5.6) % 06/17/21 Range/Units 11:14 RBC (4.7-6.1) M/uL Hgb (14.0-18.0) g/dL Hct (42-52) % Sodium (136-145) mmol/L Glucose (70-99) mg/dl POC Glucose 134 H (70-99) mg/dl Hemoglobin A1c (4.5-5.6) % Diagnostic Findings This EEG is normal during wakefulness and reveals no evidence for potentially epileptogenic activity or focal generalized encephalopathy MRI brain-No acute abnormalities. No edema in the hippocampus bilaterally. MRI c spine-No evidence of acute fracture in cervical spine. MRI L spine-Degenerative changes and old compression fracture of L2 without evidence of acute fracture. Please see CT abdomen pelvis for detailed findings of pelvic ring fractures. MRI T spine-No evidence of acute fracture or traumatic subluxation. CT abd/pelvis-No abdominal aortic dissection. Acute displaced right inferior and superior pubic rami fractures. Moderate associated extraperitoneal hemorrhage. No active extravasation identified although sensitivity diminished on this exam given motion artifact and streak artifact from bilateral hip arthroplasties. Acute nondisplaced left pubic ring fractures. Acute nondisplaced right sacral ala fracture. Acute nondisplaced fracture of the medial right iliac bone with associated intramuscular hemorrhage within the right iliacus muscle. Possible hemorrhage within the right lateral abdominal wall musculature. (1) Syncope Syncope type: unspecified Qualified Code(s): R55 - Syncope and collapse
--- NOTE | 2021-06-17 13:00 | Electroencephalogram ---
EEG Procedure Note Date of Service June 17, 2021 Start / End Times Start Time: 1031 End Time: 1051 Referring Physician Elsie Capone MD History SEIZURE LIKE ACTIVITY Home Medication List Medication Instructions Recorded Confirmed Type cholecalciferol (vitamin D3) 25 1,000 unit PO QAM #0 06/08/15 06/15/21 History mcg (1,000 unit) tablet clopidogrel 75 mg tablet 75 mg PO QAM #0 06/14/15 06/15/21 History duloxetine 60 mg capsule,delayed 60 mg PO HS #0 01/11/16 06/15/21 History release cyclobenzaprine 10 mg tablet 10 mg PO TID PRN #0 08/19/16 06/15/21 History tamsulosin 0.4 mg capsule 0.4 mg PO QAM #0 07/24/17 06/15/21 History isosorbide mononitrate 60 mg 60 mg PO QAM #0 tab 04/18/18 06/15/21 History tablet,extended release 24 hr nitroglycerin 0.4 mg sublingual 0.4 mg SUBLINGUAL DIRECTED PRN 04/18/18 06/15/21 History tablet #0 folic acid 400 mcg tablet 800 mcg PO QAM #0 04/22/18 06/15/21 History thiamine HCl (vitamin B1) 100 mg 100 mg PO QAM #0 04/22/18 06/15/21 History tablet tramadol 50 mg tablet 50 mg PO Q6H PRN #0 tab 04/22/18 06/15/21 History acetaminophen 500 mg tablet 1,000 mg PO Q6H PRN 10/02/18 06/15/21 History aspirin 81 mg tablet,delayed 81 mg PO QAM 10/02/18 06/15/21 History release hydrocodone 5 mg-acetaminophen 325 1 tab PO TID PRN 05/18/19 06/15/21 History mg tablet metformin 500 mg tablet,extended 500 mg PO QAM 06/05/20 06/15/21 History release 24 hr amlodipine 2.5 mg tablet 2.5 mg PO DAILY 06/15/21 06/15/21 History metoprolol tartrate 25 mg tablet 25 mg PO BID 06/15/21 06/15/21 History ondansetron HCl 4 mg tablet 4 mg PO Q6H PRN 06/15/21 06/15/21 History Inpatient Medication List Acetaminophen (Acetaminophen 500 Mg Tab) 1,000 mg PO Q8H PRN PRN Reason: Fever Or Pain Stop: 07/15/21 18:15 Last Admin: 06/17/21 08:43 Dose: 1,000 mg Documented by: [id number] Amlodipine Besylate (Amlodipine Besylate 5 Mg Tab) 2.5 mg PO DAILY [facility] Stop: 07/16/21 08:59 Last Admin: 06/17/21 08:30 Dose: 2.5 mg Documented by: [id number] Admin: 06/16/21 08:11 Dose: 2.5 mg Documented by: [id number] Cosigned by: [id number] Duloxetine HCl (Duloxetine Hcl 60 Mg Cap) 60 mg PO HS [facility] Stop: 07/15/21 20:59 Last Admin: 06/16/21 22:00 Dose: 60 mg Documented by: [id number] Admin: 06/15/21 22:30 Dose: 60 mg Documented by: [id number] Folic Acid (Folic Acid 400 Mcg Tab) 800 mcg PO QAM [facility] Stop: 07/16/21 08:59 Last Admin: 06/17/21 08:41 Dose: 800 mcg Documented by: [id number] Admin: 06/16/21 11:40 Dose: Not Given Documented by: [id number] Gabapentin (Gabapentin 600 Mg Tab) 600 mg PO Q8H [facility] Stop: 06/17/21 14:01 Last Admin: 06/17/21 06:12 Dose: 600 mg Documented by: [id number] Admin: 06/16/21 22:00 Dose: 600 mg Documented by: [id number] Piperacillin Sod/Tazobactam (Sod 3.375 gm/ Dextrose) 115 mls @ 28.75 mls/hr IV Q8H [facility]; Protocol Stop: 06/18/21 01:59 Last Admin: 06/17/21 10:51 Dose: 28.8 mls/hr Documented by: [id number] Infusion: 06/17/21 06:43 Dose: 0 mls/hr Documented by: [id number] Admin: 06/17/21 02:38 Dose: 28.8 mls/hr Documented by: [id number] Infusion: 06/16/21 22:06 Dose: 0 mls/hr Documented by: [id number] Admin: 06/16/21 18:14 Dose: 28.8 mls/hr Documented by: [id number] Cosigned by: [id number] Infusion: 06/16/21 15:00 Dose: 0 mls/hr Documented by: [id number] Cosigned by: [id number] Admin: 06/16/21 11:00 Dose: 28.8 mls/hr Documented by: [id number] Infusion: 06/16/21 06:02 Dose: 0 mls/hr Documented by: [id number] Admin: 06/16/21 02:12 Dose: 28.8 mls/hr Documented by: [id number] Insulin Aspart (Insulin Aspart 100 Units/Ml 3 Ml Pen) 0 units SC ACHS [facility] Stop: 07/15/21 20:59 Last Admin: 06/17/21 11:57 Dose: 1 units Documented by: [id number] Cosigned by: [id number] Admin: 06/17/21 08:26 Dose: 1 units Documented by: [id number] Cosigned by: [id number] Admin: 06/16/21 21:59 Dose: Not Given Documented by: [id number] Cosigned by: [id number] Admin: 06/16/21 18:16 Dose: 1 units Documented by: [id number] Cosigned by: [id number] Admin: 06/16/21 12:20 Dose: Not Given Documented by: [id number] Cosigned by: [id number] Admin: 06/16/21 08:10 Dose: Not Given Documented by: [id number] Cosigned by: [id number] Admin: 06/15/21 21:57 Dose: Not Given Documented by: [id number] Insulin Glargine (Insulin Glargine Solostar 100 Units/Ml 3 Ml Pen) 7 units SC BID [facility] Stop: 07/15/21 20:59 Last Admin: 06/17/21 08:28 Dose: 7 units Documented by: [id number] Cosigned by: [id number] Admin: 06/16/21 21:58 Dose: 7 units Documented by: [id number] Cosigned by: [id number] Admin: 06/16/21 08:15 Dose: 7 units Documented by: [id number] Cosigned by: [id number] Admin: 06/15/21 21:59 Dose: 7 units Documented by: [id number] Cosigned by: [id number] Isosorbide Mononitrate (Isosorbide King Extended Rel 60 Mg Tabcr) 60 mg PO QAM [facility] Stop: 07/16/21 08:59 Last Admin: 06/17/21 08:28 Dose: 60 mg Documented by: [id number] Admin: 06/16/21 08:13 Dose: 60 mg Documented by: [id number] Cosigned by: [id number] Metoprolol Tartrate (Metoprolol Tartrate 25 Mg Tab) 25 mg PO BID [facility] Stop: 07/15/21 20:59 Last Admin: 06/17/21 08:29 Dose: 25 mg Documented by: [id number] Admin: 06/16/21 22:00 Dose: 25 mg Documented by: [id number] Admin: 06/16/21 08:13 Dose: 25 mg Documented by: [id number] Cosigned by: [id number] Admin: 06/15/21 22:30 Dose: 25 mg Documented by: [id number] Miscellaneous (Remove Nicoderm Patch) 1 ea N/A DAILY@0859 [facility] Stop: 07/16/21 08:58 Last Admin: 06/17/21 08:25 Dose: 1 ea Documented by: [id number] Admin: 06/16/21 08:10 Dose: 1 ea Documented by: [id number] Cosigned by: [id number] Morphine Sulfate (Morphine Sulfate 2 Mg/Ml Carp) 2 mg IV Q6H PRN PRN Reason: Pain Stop: 06/29/21 20:03 Last Admin: 06/16/21 18:15 Dose: 2 mg Documented by: [id number] Cosigned by: [id number] Admin: 06/16/21 08:16 Dose: 2 mg Documented by: [id number] Cosigned by: [id number] Admin: 06/15/21 21:36 Dose: 2 mg Documented by: [id number] Nicotine (Nicotine 21 Mg/24 Hr Tdsy) 21 mg TD [facility] Stop: 07/16/21 08:59 Last Admin: 06/17/21 08:29 Dose: 21 mg Documented by: [id number] Admin: 06/16/21 08:14 Dose: 21 mg Documented by: [id number] Cosigned by: [id number] Tamsulosin HCl (Tamsulosin Hcl 0.4 Mg Cap) 0.4 mg PO QAM [facility] Stop: 07/16/21 08:59 Last Admin: 06/17/21 08:30 Dose: 0.4 mg Documented by: [id number] Admin: 06/16/21 08:12 Dose: 0.4 mg Documented by: [id number] Cosigned by: [id number] Thiamine HCl (Thiamine Hcl 100 Mg Tab) 100 mg PO QAM [facility] Stop: 07/16/21 08:59 Last Admin: 06/17/21 08:41 Dose: 100 mg Documented by: [id number] Admin: 06/16/21 11:40 Dose: Not Given Documented by: [id number] Vitamin D (Cholecalciferol 1,000 Units 25 Mcg Tab) 1,000 units [facility] Stop: 07/16/21 08:59 Last Admin: 06/17/21 08:28 Dose: 1,000 units Documented by: [id number] Admin: 06/16/21 08:14 Dose: 1,000 units Documented by: [id number] Cosigned by: [id number] Discontinued Medications Acetaminophen (Acetaminophen 325 Mg Tab) 650 mg PO NOW STA Stop: 06/15/21 17:23 Last Admin: 06/15/21 18:22 Dose: Not Given Documented by: [id number] Diazepam (Diazepam 5 Mg/Ml Inj 10ml Vial) 5 mg IV NOW STA Stop: 06/15/21 18:03 Last Admin: 06/15/21 18:12 Dose: 5 mg Documented by: [id number] Diazepam (Diazepam 5 Mg/Ml Inj 10ml Vial) Confirm Administered Dose 5 mg .ROUTE .STK-MED ONE Stop: 06/15/21 18:09 Last Admin: 06/15/21 20:04 Dose: Not Given Documented by: [id number] Gabapentin (Gabapentin 600 Mg Tab) 1,200 mg PO NOW ONE Stop: 06/15/21 19:46 Last Admin: 06/15/21 20:10 Dose: 1,200 mg Documented by: [id number] Gabapentin (Gabapentin 600 Mg Tab) 600 mg PO Q6H [facility] Stop: 06/16/21 12:01 Last Admin: 06/16/21 12:18 Dose: 600 mg Documented by: [id number] Cosigned by: [id number] Admin: 06/16/21 06:02 Dose: 600 mg Documented by: [id number] Gadobutrol (Gadobutrol 65ml Vial) 9.5 ml IV ONCE ONE Stop: 06/16/21 17:51 Last Admin: 06/16/21 17:50 Dose: 9.5 ml Documented by: [id number] Hydromorphone HCl (Hydromorphone Inj 0.5 Mg/0.5 Ml Syr) 0.5 mg IV NOW STA Stop: 06/15/21 14:51 Last Admin: 06/15/21 15:11 Dose: 0.5 mg Documented by: [id number] Hydromorphone HCl (Hydromorphone Inj 0.5 Mg/0.5 Ml Syr) 0.5 mg IV NOW STA Stop: 06/15/21 15:46 Last Admin: 06/15/21 15:49 Dose: 0.5 mg Documented by: [id number] Sodium Chloride (Nss 1000ml) 1,000 mls @ 80 mls/hr IV .[id number] [facility] Stop: 06/16/21 17:29 Last Infusion: 06/16/21 17:35 Dose: 0 mls/hr Documented by: [id number] Cosigned by: [id number] Admin: 06/16/21 05:05 Dose: 80 mls/hr Documented by: [id number] Infusion: 06/16/21 05:02 Dose: 80 mls/hr Documented by: [id number] Admin: 06/15/21 16:32 Dose: 80 mls/hr Documented by: [id number] Piperacillin Sod/Tazobactam (Sod 3.375 gm/ Dextrose) 115 mls @ 230 mls/hr IV Q8H [facility]; Protocol Stop: 06/15/21 20:00 Last Infusion: 06/15/21 20:03 Dose: 0 mls/hr Documented by: [id number] Admin: 06/15/21 18:11 Dose: 28.8 mls/hr Documented by: [id number] Orphenadrine Citrate 60 mg/ (Syringe) 2 mls @ 5 mls/min IV ONE ONE Stop: 06/15/21 17:25 Last Admin: 06/15/21 19:51 Dose: Not Given Documented by: [id number] Multivitamins 10 ml/ Thiamine HCl 100 mg/ Folic Acid 1 mg/Sodium Chloride 1,011.2 mls @ 500 mls/hr IV .Q2H2M ONE Stop: 06/15/21 23:01 Last Infusion: 06/15/21 23:59 Dose: 0 mls/hr Documented by: [id number] Admin: 06/15/21 21:39 Dose: 500 mls/hr Documented by: [id number] Folic Acid 1 mg/ Syringe 10 mls @ 5 mls/min IV QAM [facility] Stop: 07/15/21 20:59 Last Admin: 06/16/21 08:16 Dose: 5 mls/min Documented by: [id number] Cosigned by: [id number] Admin: 06/15/21 21:45 Dose: 5 mls/min Documented by: [id number] Thiamine HCl 100 mg/ Syringe 10 mls @ 2 mls/min IV QAM [facility] Stop: 07/15/21 20:59 Last Admin: 06/16/21 08:15 Dose: 2 mls/min Documented by: [id number] Cosigned by: [id number] Admin: 06/15/21 21:46 Dose: 2 mls/min Documented by: [id number] Vancomycin HCl 2,000 mg/ (Sodium Chloride) 540 mls @ 200 mls/hr IV NOW ONE Stop: 06/16/21 21:26 Last Infusion: 06/16/21 22:06 Dose: 0 mls/hr Documented by: [id number] Admin: 06/16/21 19:17 Dose: 200 mls/hr Documented by: [id number] Vancomycin HCl 1,000 mg/ (Sodium Chloride) 270 mls @ 200 mls/hr IV Q12H [facility] Stop: 07/01/21 06:59 Last Infusion: 06/17/21 08:31 Dose: 0 mls/hr Documented by: [id number] Admin: 06/17/21 06:43 Dose: 200 mls/hr Documented by: [id number] Ioversol (Optiray 320 125ml) 116 ml IV ONCE ONE Stop: 06/15/21 13:50 Last Admin: 06/15/21 13:50 Dose: 116 ml Documented by: [id number] Miscellaneous (Patient's Height And/Or Weight Needed) 1 ea N/A Q2H [facility] Stop: 07/15/21 18:29 Last Admin: 06/15/21 20:10 Dose: 1 ea Documented by: [id number] Morphine Sulfate (Morphine Sulfate 4 Mg/Ml 1 Ml Carp\Vial) 4 mg IV NOW STA Stop: 06/15/21 13:49 Last Admin: 06/15/21 13:58 Dose: 4 mg Documented by: [id number] Ondansetron HCl (Ondansetron Inj 2 Mg/Ml 2 Ml Vial) 4 mg IV NOW STA Stop: 06/15/21 13:58 Last Admin: 06/15/21 13:58 Dose: 4 mg Documented by: [id number] Ondansetron HCl (Ondansetron Inj 2 Mg/Ml 2 Ml Vial) Confirm Administered Dose 4 mg .ROUTE .[employer] ONE Stop: 06/15/21 13:58 Last Admin: 06/15/21 14:02 Dose: Not Given Documented by: [id number] Description This is a 21 electrode EEG with a single channel dedicated to limited EKG. The electrodes were placed in accordance with the International 1 This EEG was done as a bedside recording and is of excellent technical quality with few or no muscle movement artifacts. Drowsiness light sleep not recorded Photic stimulation was performed During wakefulness there is evidence for normal-appearing background alpha rhythm of up to 8 to 9 Hz maximum frequency and 30 V maximum amplitude which is symmetrical and posterior head regions. Centrally maximum bilaterally symmetrical modest voltage upper frequency theta activity is seen along with beta activity in the frontal regions which is also symmetrical Photic stimulation provokes a minimal driving response No epileptiform activity is noted Interpretation Normal EEG with no evidence for focal generalized encephalopathy no evidence for potential epileptogenic activity Clinical Correlation This EEG is normal during wakefulness and reveals no evidence for potentially epileptogenic activity or focal generalized encephalopathy Addi Ramos MD
--- NOTE | 2021-06-17 16:45 | Hospitalist Progress Note ---
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 Pt denied preceding nausea, sweating, palpitation. Per , patient might have been unconscious anywhere between 30 min to 60 min and he was disoriented when found by his son; no bowel or bladder incontinence. Of note, patient is current smoker 1 PPD and drinker 5- 6 beers/d (since teenage). #. Recurrent syncope Prior 3 events of syncope in the past 13 months; seen by neurology and cardiology in the past. In the last admission, his beta-radha was decreased due to concern of orthostasis and bradycardia. Patient had been advised to stop smoking tobacco and drinking alcohol, patient continues to use both of them. Admitting CT head with no acute finding, redemonstration of a colloid cyst. Admitting EKG: NSR Neurology and cardiology consulted Cardiology thinks the syncopal episodes are connected to alcohol abuse, agrees with orthostatic blood pressure measurement. Neurology: Repeat MRI, EEG (no seizure focus or spikes), ambulatory EEG -72 hours as an outpatient, empiric treatment with anticonvulsant (await input on drug and dose). Hold cyclobenzaprine Orthostatic vitals: positive. Slow change in position (sleep to sitting, sitting to standing) to avoid chances of orthostasis and fall, await more input from cardio. Fall precaution, continue to monitor #. Multiple pelvic fractures Closed fracture of right iliac wing: Closed fracture of left inferior pubic ramus: Closed fracture of superior ramus of left pubis: Closed fracture of right superior pubic ramus: Closed fracture of right inferior pubic ramus: Patient had a syncopal event [employer], landed on his buttocks on hard floor. Patient is a chronic alcoholic and tobacco abuser which will contribute to his increased chances of fracture. Admitting CTAP: Displaced pelvic rami fractures with associated extraperitoneal hemorrhage. Nondisplaced pubic ring fractures. Nondisplaced right sacral ala fracture. Nondisplaced right medial iliac bone fracture with associated intramuscular hemorrhage. Orthopedics on board: Conservative management. Mobilize as tolerated. Weightbearing as tolerated. Walker for first 4 weeks. Follow-up in 1 month upon discharge. Continue pain management. PT/OT #. Bacteremia Admitting blood culture positive for gram-positive cocci within 24 hours, source unknown Continue with 06/15 Zosyn, will add vancomycin. Patient afebrile, WBC trending down Await final culture and sensitivity, taper down antibiotic as appropriate. Repeat Bl Cx until negative, f/u results D/w cardiology for possible Echo to r/o ? I.E. #. Mild hyponatremia Patient has chronic hyponatremia with baseline around 130-131, likely secondary to decreased solute intake and increase alcohol intake Admitting sodium level 129 Resolved to baseline #. Alcohol abuse Six beers a day AWSS protocol #. Tobacco abuse 1 packs a day Nicotine patch #. Chronic medical conditions: Depression/GERD/HLD/COPD/DM type II/CAD/h/o CVA/h/o carotid stenosis Resume home medications #. Diabetes type 2 On sliding scale DVT prophylaxis: SCDs, pelvic fracture associated with extraperitoneal and intramuscular hemorrhage, no chemoprophylaxis. Follow daily H&H. Disposition: PT/OT - may need rehab at discharge Admission and Anticipated Discharge Date Admission Date: June 15, 2021 Subjective Patient was sitting up in bed, eating his breakfast, on room air, NAD. Patient reports improvement in his pelvic and low back pain. No acute events overnight. Patient denies headache/dizziness/chest pain/palpitation/other review of symptoms. Patient is eating okay. Physical Exam Physical Exam: GENERAL: Alert and oriented x3. in mild distress, on RA. HEENT: No pallor, no icterus. Pupils equal, round and reactive to light. Oral mucosa moist. NECK: No JVD, no neck masses. HEART: S1 and S2 heard. Regular rate and rhythm. No murmur, no gallop. RESPIRATORY SYSTEM: Normal AP diameter. No accessory muscle use. No wheezing, no crackles. ABDOMEN: Soft, bowel sounds present, nontender, no distention. CENTRAL NERVOUS SYSTEM: No facial droop. Speech is clear. Obeys simple commands. Moves extremities. EXTREMITIES: No edema, no erythema seen. Rt sided weakness noted but no paresis. Pain at hip with movement of BLE - improving. Decreased ROM of BLE. Distal Neurovascular status normal. Results & Data Results & Data ([facility]) Vital Signs (Past 12 Hours) Vital Signs Temp Pulse Pulse Resp BP Pulse Ox Pulse Ox 06/17/21 15:16 36.7 C 60 16 122/75 94 06/17/21 15:05 72 06/17/21 14:46 94 06/17/21 10:14 80 94/58 L 06/17/21 10:10 79 120/69 06/17/21 10:04 36.4 C L 76 18 154/83 H 93 06/17/21 07:31 36.7 C 75 18 150/87 H 92 06/17/21 07:23 79 Pulse Ox Pulse Ox 06/17/21 15:16 06/17/21 15:05 06/17/21 14:46 93 95 06/17/21 10:14 06/17/21 10:10 06/17/21 10:04 06/17/21 07:31 06/17/21 07:23 (1) Closed fracture of left inferior pubic ramus Encounter type: initial encounter Qualified Code(s): S32.592A - Other specified fracture of left pubis, initial encounter for closed fracture (2) Closed fracture of superior ramus of left pubis Encounter type: initial encounter Qualified Code(s): S32.512A - Fracture of superior rim of left pubis, initial encounter for closed fracture (3) Closed fracture of right superior pubic ramus Encounter type: initial encounter Qualified Code(s): S32.511A - Fracture of superior rim of right pubis, initial encounter for closed fracture (4) Closed fracture of right inferior pubic ramus Encounter type: initial encounter Qualified Code(s): S32.591A - Other specified fracture of right pubis, initial encounter for closed fracture
[2021-06-17] MEDS: HYDROCODONE/ACETAMOPHEN 5/325MG TAB PO PRN (17:05)
[2021-06-17] MEDS: DULoxetine HCL 60 MG CAP PO SCH (21:02)
[2021-06-18 06:50] LABS: Hematocrit (blood only) 31.9 % (42-52); Hemoglobin 10.9 g/dL (14.0-18.0); Mean Corpuscular Hemoglobin 31.7 pg (25-34); Mean Corpuscular Hgb Conc 34.2 g/dL (32-36); Mean Corpuscular Volume 92.7 fL (80-100); Mean Platelet Volume 8.5 fL (7.4-10.4); Platelet Count 181 K/uL (130-400); RDW Coefficient of Variation 12.9 % (11.5-14.5); RDW Standard Deviation 43.7 fL (36.4-46.3); Red Blood Count 3.44 M/uL (4.7-6.1); White Blood Count 7.58 K/uL (4.8-10.8)
[2021-06-18] MEDS: INSULIN ASPART 100 UNITS/ML 3 ML PEN SC SCH ×4 (08:34→20:43)
[2021-06-18] MEDS: INSULIN GLARGINE SOLOSTAR 100 UNITS/ML 3 ML PEN SC SCH ×2 (08:35→20:43)
[2021-06-18] MEDS: amLODIPine BESYLATE 5 MG TAB PO SCH (08:36)
[2021-06-18] MEDS: CHOLECALCIFEROL 1,000 UNITS 25 MCG TAB PO SCH (08:37)
[2021-06-18] MEDS: FOLIC ACID 400 MCG TAB PO SCH (08:37)
[2021-06-18] MEDS: ISOSORBIDE MONO EXTENDED REL 60 MG TABCR PO SCH (08:38)
[2021-06-18] MEDS: METOPROLOL TARTRATE 25 MG TAB PO SCH ×2 (08:38→20:43)
[2021-06-18] MEDS: NICOTINE 21 MG/24 HR TDSY TD SCH (08:39)
[2021-06-18] MEDS: THIAMINE HCL 100 MG TAB PO SCH (08:40)
[2021-06-18] MEDS: TAMSULOSIN HCL 0.4 MG CAP PO SCH (08:40)
[2021-06-18] MEDS ORDERED: PIPERACILLIN/TAZOBACTAM 3.375 GM in DEXTROSE 5% 100 ML IV SCH (09:00)
[2021-06-18] MEDS ORDERED: NAFCILLIN SODIUM 2,000 MG in DEXTROSE 5% 100 ML IV ONE (09:15)
[2021-06-18] MEDS: HYDROCODONE/ACETAMOPHEN 5/325MG TAB PO PRN (11:27)
--- NOTE | 2021-06-18 12:20 | Neurology Progress Note ---
Date of Service June 18, 2021 Assessment & Plan (1) Syncope: Plan: 1. EEG no seizure focus or spikes 2. MRI brain/ CT -c spine, t spine, l spine- no acute fractures 3. EEG- 72 hours as outpatient- was already done in the past 4. may need to treat prophy AED but no clear evidence this is seizure events 5. cardiology for any recommendations 6. PT/OT for discharge needs will likely need rehab prior to going home 7. May need MRI c/t/l spine if pain limits his recovery (2) Alcohol use disorder: Plan: 1. discussion regarding discontinued use of EtOH Admission and Anticipated Discharge Date Admission Date: June 15, 2021 Supervising Physician Co-Signing Physician Notes I have seen and discussed above patient with Dr Elsie Capnoe, neurology. Patient seen and examined. No further episodes of loss of consciousness. The patient reports ongoing back and hip pain. The pain is somewhat worse but the patient reports ongoing bilateral lower extremity weakness without new sensory symptoms. There is been no incontinence of bowel but the patient has an indwelling catheter due to urinary retention. I do not know if a voiding trial has been tried. Exam reveals full strength in the uppers the right lower is probably mildly weaker than the left but both are close to 4 out of 5. Knee jerks are present ankle jerks are absent. The right toe is upgoing. No asymmetric sensory loss to light touch temperature or vibration is noted. Vibration is present at the ankles. There is a mid calf level to temperature. There is no spinal tenderness with the exception of some mild tenderness in the lower lumbar region. No trunk level to light touch is noted This patient has had multiple episodes of loss of consciousness which have all been unwitnessed and been protracted with confusion. He has a history of a left frontal infarction which would increase his risk for seizure. We have discussed empirically treating him for seizure with Keppra and will begin that gradually. I have started at 250 mg at bedtime for 1 week then 250 mg twice daily for 1 week and then 250 mg in the morning and 500 mg in the evening x1 week and then 500 mg twice a day. Recommend ongoing evaluation for etiology of these episodes have elected to prophylax due to the multitude in the patient's falls and significant injury. Bilateral lower extremity weakness no evidence of lumbosacral or spinal fracture on CT. I still think it is possible that the patient has difficulty with the lower extremities on the basis of his pelvic fractures however and becoming increasingly concerned. MRI of the L-spine to begin with. Ongoing physical therapy. Check CK. 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 who presented to [facility] ED with syncopal episode. Prior to arrival he had a LOC and fell. He was down for 30-60 minutes although exact duration is unknown - his son found him trying to get up and into a chair. There was immediate pain in right hip area after fall. His previous admission for syncope were May 2020, Sep 2020 (at [facility]), and January 2021. He wore a Zio was negative in 11/11. It was thought during his last admission that he may be becoming orthostatic and bradycardic due to his beta radha so the metoprolol dose was decreased. He has chronic right-sided weakness due to prior CVA. He has a history of a right carotid stent, which was patent on most recent vascular evaluation earlier this year. He has a known left carotid occlusion and is on dual anti-platelet therapy. He continues to smoke 1 PPD and drink 5-6 beers per day. Today is got up to go the the bathroom with 2 assist and was unable to get off the commode. He felt he couldn't work with PT. denies CP, SOB, abdominal pain. Review of Systems Review of Systems: All systems reviewed & are unremarkable except as noted in HPI & below Physical Exam 2 Physical Exam: Physical Exam: Constitutional: appearance nourished, healthy and normal Ears, Nose, Mouth and Throat: mucous membranes moist, no injection and skin normal, eyes normal Cardiovascular: normal S-1 and S-2 and regular rate and rhythm Respiratory: clear to auscultation (CTA) and no rales, rhonchi or wheeze Musculoskeletal: no peripheral edema and good distal pulses Skin: no stigmata of neurocutaneous disease noted and normal and intact Eyes: extraocular muscles intact (EOMI) NEUROLOGIC EXAMINATION: Mental status: Alert and interactive Oriented to full date and location Oriented to person Speech fluent with no evidence of aphasia, some trouble with complex communication Cranial Nerves smile eye brow raise symmetric Reflexes: Deep tendon reflexes were symmetrical and graded 2/5. toes neutral Sensory: light cool vibration Coordination: finger to nose no bipass Gait/Stance: Posture lying in bed Motor: Negative for pronator drift of out stretched arms with eyes closed. 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 biceps triceps deltoids 5/5 bilaterally hip flex right 4+/5 left 5/5, plantar flex ext 5/5 Results & Data ([facility]) Vital Signs (Past 12 Hours) Vital Signs Temp Pulse Pulse Pulse Resp BP Pulse Ox 06/18/21 12:14 36.9 C 63 17 130/68 96 06/18/21 09:56 74 06/18/21 07:56 37.0 C 89 18 101/63 96 06/18/21 03:18 36.7 C 67 18 155/84 H 93 Laboratory Results Abnormal lab results 06/17/21 06/17/21 06/18/21 Range/Units 16:38 20:49 06:22 RBC 3.44 L (4.7-6.1) M/uL Hgb 10.9 L (14.0-18.0) g/dL Hct 31.9 L (42-52) % POC Glucose 112 H 123 H (70-99) mg/dl 06/18/21 06/18/21 Range/Units 11:31 16:14 RBC (4.7-6.1) M/uL Hgb (14.0-18.0) g/dL Hct (42-52) % POC Glucose 134 H 107 H (70-99) mg/dl Diagnostic Findings no new imaging (1) Syncope Syncope type: unspecified Qualified Code(s): R55 - Syncope and collapse
--- NOTE | 2021-06-18 12:31 | Progress Notes ---
DATE OF SERVICE: 06/18/2021. SUBJECTIVE: A 65-year-old gentleman admitted status post a syncopal episode with a stable pelvis fra cture. He is doing okay. He says he did get up and walk some with a walker yesterday and it was not too bad. A little bit more painful today as he has missed some pain medicines. No new complaints. OBJECTIVE: VITAL SIGNS: Temperature 37.0. Vital signs are stable. GENERAL: Shows a pleasant middle-aged male. He is lying in bed and looks pretty comfortable. EXTREMITIES: Examination of his hips and legs reveal the leg lengths to be equal. The legs are well aligned. There is no swelling. He does have difficulty doing a straight leg raise on the right laurent e, not so much on the left. No real pain with passive hip motion. He is neurologically intact. ASSESSMENT: A 65-year-old gentleman status post bilateral hip replacements and a recent syncopal epi sode and fall with a stable pelvis fracture. He has got other medical comorbidities including bacter emia, which is being treated. PLAN: From the orthopedic standpoint, he is weightbearing as tolerated. He will need a walker proba rhianna for the next month. No further orthopedic management is necessary at this time. I need to see h im back in 1 month. Any orthopedic questions can be directed to me at [phone]. Will sign off f or now. Contact me with any orthopedic issues. Job ID: [id number]
[2021-06-18] MEDS: GABAPENTIN 600 MG TAB PO SCH (13:12)
--- NOTE | 2021-06-18 13:23 | Cardiology Progress Note ---
Date of Service June 18, 2021 Assessment & Plan (1) Syncope: (2) Hyponatremia: (3) H/O: CVA (cerebrovascular accident): (4) Alcohol use disorder: (5) Recurrent syncope: (6) Fall: (7) Classic migraine: (8) ASCVD (arteriosclerotic cardiovascular disease): (9) Statin intolerance: (10) COPD (chronic obstructive pulmonary disease): (11) Diabetes mellitus, type II: (12) Left thalamic infarction: Plan: The patient has remained stable on telemetry. No significant arrhythmias. No additional cardiac work-up at this time. Admission and Anticipated Discharge Date Admission Date: June 15, 2021 Subjective The patient is alert. He is in additional pain today from his pelvic fractures. Review of Systems Review of Systems: Review of Systems: See HPI for pertinent positives. All other 10 point review of systems are negative. Physical Exam Physical Exam: General: no acute distress and stated age Head: normocephalic, no masses, lesions, tenderness or abnormalities Eyes: conjunctiva are pink and non-injected, sclera clear Neck: supple, no adenopathy, no bruits, normal jugular venous pulse, no hepatojugular reflux Chest: normal shape and normal respiratory effort Lungs: clear to auscultation and percussion Cardiac Exam: - regular rate & rhythm, no murmurs gallops or rubs - normal S1, normal S2 Pulses: 2(+) throughout Abdomen: abdomen soft, non-tender, no abnormal masses and no hepatosplenomegaly Musculoskeletal: no gait disturbance, no joint inflammation, no deforming arthritis Extremities: no edema and no cyanosis Neuro: grossly normal exam Results & Data ([facility]) Vital Signs (Past 12 Hours) Vital Signs Temp Pulse Pulse Pulse Resp BP Pulse Ox 06/18/21 12:14 36.9 C 63 17 130/68 96 06/18/21 09:56 74 06/18/21 07:56 37.0 C 89 18 101/63 96 06/18/21 03:18 36.7 C 67 18 155/84 H 93 Laboratory Results Laboratory Results - last 24 hr 06/17/21 06/17/21 06/18/21 16:38 20:49 06:22 WBC 7.58 RBC 3.44 L Hgb 10.9 L Hct 31.9 L MCV 92.7 MCH 31.7 MCHC 34.2 RDW Std Deviation 43.7 RDW Coeff of Keny 12.9 Plt Count 181 MPV 8.5 POC Glucose 112 H 123 H 06/18/21 11:31 WBC RBC Hgb Hct MCV MCH MCHC RDW Std Deviation RDW Coeff of Keny Plt Count MPV POC Glucose 134 H Medications Administered Current Inpatient Medications Acetaminophen (Acetaminophen 500 Mg Tab) 1,000 mg PO Q8H PRN PRN Reason: Fever Or Pain Stop: 07/15/21 18:15 Last Admin: 06/17/21 08:43 Dose: 1,000 mg Documented by: Hydrocodone Bitart/Acetaminophen (Hydrocodone/Acetamophen 5/325mg Tab) 1 tab PO TID PRN PRN Reason: Pain Stop: 06/29/21 17:33 Last Admin: 06/18/21 11:27 Dose: 1 tab Documented by: Amlodipine Besylate (Amlodipine Besylate 5 Mg Tab) 2.5 mg PO DAILY BRIAN Stop: 07/16/21 08:59 Last Admin: 06/18/21 08:36 Dose: 2.5 mg Documented by: Dextrose (Dextrose 50% 50 Ml Syringe) 25 - 50 ml IV UD PRN; Protocol PRN Reason: Hypoglycemia Protocol Stop: 07/15/21 20:03 Duloxetine HCl (Duloxetine Hcl 60 Mg Cap) 60 mg PO HS BRIAN Stop: 07/15/21 20:59 Last Admin: 06/17/21 21:02 Dose: 60 mg Documented by: Folic Acid (Folic Acid 400 Mcg Tab) 800 mcg PO QAM BRIAN Stop: 07/16/21 08:59 Last Admin: 06/18/21 08:37 Dose: 800 mcg Documented by: Gabapentin (Gabapentin 600 Mg Tab) 600 mg PO Q24H [facility]RIAN Stop: 06/19/21 12:01 Glucagon (Glucagon For Inj 1 Mg Vial) 1 mg SQ UD PRN; Protocol PRN Reason: Hypoglycemia Protocol Stop: 07/15/21 20:03 Glucose (Glucose 10 Tabs/Tube) 4 - 8 tabs PO UD PRN; Protocol PRN Reason: Hypoglycemia Protocol Stop: 07/15/21 20:03 Glucose (Glucose 40% Gel 15 Gm Tube) 15 - 30 gm PO UD PRN; Protocol PRN Reason: Hypoglycemia Protocol Stop: 07/15/21 20:03 Lorazepam (Ativan) 1 mg in 2 mls @ 2 mls/min IV UD PRN; Protocol PRN Reason: EtOH Withdrawl AWSS Score 6,7 Stop: 07/15/21 20:03 Lorazepam (Ativan) 2 mg in 4 mls @ 4 mls/min IV UD PRN; Protocol PRN Reason: EtOH Withdrawl AWSS Score 8,9 Stop: 07/15/21 20:03 Lorazepam (Ativan) 3 mg in 6 mls @ 4 mls/min IV ONCE PRN; Protocol PRN Reason: EtOH Withdrawl AWSS Score >=10 Stop: 07/15/21 20:03 Nafcillin Sodium 2,000 mg/ (Dextrose) 108 mls @ 100 mls/hr IV Q4H [facility] Stop: 07/02/21 13:59 Insulin Aspart (Insulin Aspart 100 Units/Ml 3 Ml Pen) 0 units SC ACHS [facility] Stop: 07/15/21 20:59 Last Admin: 06/18/21 13:10 Dose: Not Given Documented by: Insulin Glargine (Insulin Glargine Solostar 100 Units/Ml 3 Ml Pen) 7 units SC BID [facility] Stop: 07/15/21 20:59 Last Admin: 06/18/21 08:35 Dose: 7 units Documented by: Isosorbide Mononitrate (Isosorbide [place] Extended Rel 60 Mg Tabcr) 60 mg PO QAM [facility] Stop: 07/16/21 08:59 Last Admin: 06/18/21 08:38 Dose: 60 mg Documented by: Lorazepam (Lorazepam 1 Mg Tab) 1 mg PO ONE PRN; Protocol PRN Reason: EtoH Withdrawal AWSS 6-10 Metoprolol Tartrate (Metoprolol Tartrate 25 Mg Tab) 25 mg PO BID [facility] Stop: 07/15/21 20:59 Last Admin: 06/18/21 08:38 Dose: 25 mg Documented by: Miscellaneous (Carbohydrates For Hypoglycemia ) 15 - 30 gm PO UD PRN PRN Reason: Hypoglycemia Protocol Stop: 07/15/21 20:03 Miscellaneous (Remove Nicoderm Patch) 1 ea N/A DAILY@0859 [facility] Stop: 07/16/21 08:58 Last Admin: 06/18/21 10:15 Dose: 1 ea Documented by: Morphine Sulfate (Morphine Sulfate 2 Mg/Ml Carp) 2 mg IV Q6H PRN PRN Reason: Pain Stop: 06/29/21 20:03 Last Admin: 06/16/21 18:15 Dose: 2 mg Documented by: Nicotine (Nicotine 21 Mg/24 Hr Tdsy) 21 mg TD [facility] Stop: 07/16/21 08:59 Last Admin: 06/18/21 08:39 Dose: 21 mg Documented by: Nitroglycerin (Nitroglycerin Sl 0.4 Mg/Tab Tab) 0.4 mg SL UD PRN PRN Reason: Chest Pain Stop: 07/15/21 17:33 Ondansetron HCl (Ondansetron 4 Mg Od Tab) 4 mg PO Q6H PRN PRN Reason: Nausea And Vomiting Stop: 07/15/21 18:13 Tamsulosin HCl (Tamsulosin Hcl 0.4 Mg Cap) 0.4 mg PO [facility] Stop: 07/16/21 08:59 Last Admin: 06/18/21 08:40 Dose: 0.4 mg Documented by: Thiamine HCl (Thiamine Hcl 100 Mg Tab) 100 mg PO [facility] Stop: 07/16/21 08:59 Last Admin: 06/18/21 08:40 Dose: 100 mg Documented by: Vitamin D (Cholecalciferol 1,000 Units 25 Mcg Tab) 1,000 units PO [facility] Stop: 07/16/21 08:59 Last Admin: 06/18/21 08:37 Dose: 1,000 units Documented by: (1) Syncope Syncope type: unspecified Qualified Code(s): R55 - Syncope and collapse (2) Fall Encounter type: initial encounter Qualified Code(s): W19.XXXA - Unspecified fall, initial encounter
[2021-06-18] MEDS: NAFCILLIN SODIUM 2,000 MG in DEXTROSE 5% 100 ML IV SCH ×3 (13:48→23:19)
--- NOTE | 2021-06-18 17:40 | Hospitalist Progress Note ---
Date of Service June 18, 2021 Assessment & Plan (1) Recurrent syncope: (2) Closed fracture of right iliac wing: (3) Closed fracture of left inferior pubic ramus: (4) Closed fracture of superior ramus of left pubis: (5) Closed fracture of right superior pubic ramus: (6) Closed fracture of right inferior pubic ramus: (7) Bacteremia: Plan: 65 y/o male with a PMH of CVA in 2012 and 2016 with residual R sided weakness and partial aphasia, CAD, DM II, COPD, alcohol use disorder, tobacco use, HTN, carotid disease (EDITH s/p stent, LICA occluded), recurrent syncope presented to the ED 06/15 with unwitnessed syncopal episode. Pt denied preceding nausea, sweating, palpitation. Per , patient might have been unconscious anywhere between 30 min to 60 min and he was disoriented when found by his son; no bowel or bladder incontinence. Of note, patient is current smoker 1 PPD and drinker 5- 6 beers/d (since teenage). #. Recurrent syncope Prior 3 events of syncope in the past 13 months; seen by neurology and cardiology in the past. In the last admission, his beta-radha was decreased due to concern of orthostasis and bradycardia. Patient had been advised to stop smoking tobacco and drinking alcohol, patient continues to use both of them. Admitting CT head with no acute finding, redemonstration of a colloid cyst. Admitting EKG: NSR Neurology and cardiology consulted Cardiology thinks the syncopal episodes are connected to alcohol abuse, agrees with orthostatic blood pressure measurement. Neurology: Repeat MRI, EEG (no seizure focus or spikes), ambulatory EEG -72 hours as an outpatient, empiric treatment with anticonvulsant --> started on Keppra 250mg hs x 1 wk, then bid x1 week f/b 250 mg QAM and 500 mg QHS f/b 500 mg BID. Hold cyclobenzaprine Orthostatic vitals: positive. Slow change in position (sleep to sitting, sitting to standing) to avoid chances of orthostasis and fall, pt on amlod and tamsulosin; will hold amlod for now, await more input from cardio for cardiova scular meds adjustment. Fall precaution, continue to monitor #. Multiple pelvic fractures Closed fracture of right iliac wing: Closed fracture of left inferior pubic ramus: Closed fracture of superior ramus of left pubis: Closed fracture of right superior pubic ramus: Closed fracture of right inferior pubic ramus: Patient had a syncopal event [employer], landed on his buttocks on hard floor. Patient is a chronic alcoholic and tobacco abuser which will contribute to his increased chances of fracture. Admitting CTAP: Displaced pelvic rami fractures with associated extraperitoneal hemorrhage. Nondisplaced pubic ring fractures. Nondisplaced right sacral ala fracture. Nondisplaced right medial iliac bone fracture with associated intramuscular hemorrhage. Orthopedics on board: Conservative management. Mobilize as tolerated. Weightbearing as tolerated. Walker for first 4 weeks. Follow-up in 1 month upon discharge. Continue pain management. PT/OT #. Bacteremia Admitting blood culture positive for gram-positive cocci within 24 hours, source unknown Started 06/15 Zosyn, added vancomycin --> changed to nafcillin 06/18 after C/S out. Patient afebrile, WBC trending down f/u repeat Bl Cx, d/w cardio for possible Echo, ID consulted, await recs. #. Mild hyponatremia Patient has chronic hyponatremia with baseline around 130-131, likely secondary to decreased solute intake and increase alcohol intake Admitting sodium level 129 Resolved to baseline #. Alcohol abuse Six beers a day AWSS protocol #. Tobacco abuse 1 packs a day Nicotine patch #. Chronic medical conditions: Depression/GERD/HLD/COPD/DM type II/CAD/h/o CVA/h/o carotid stenosis Resume home medications #. Diabetes type 2 On sliding scale DVT prophylaxis: SCDs, pelvic fracture associated with extraperitoneal and intramuscular hemorrhage, no chemoprophylaxis. Follow daily H&H. Disposition: PT/OT - may need rehab at discharge Admission and Anticipated Discharge Date Admission Date: June 15, 2021 Subjective Patient was lying in bed, on room air, NAD. No acute events overnight. Per RN, patient is very orthostatic and gets dizzy/lightheaded when changing positions. Patient eating and moving bowels okay. Patient reports pain in his low back and hip but reports it is getting better. Patient denies any chest pain/belly pain/diarrhea/pain burning with passing urine/other review of symptoms. Physical Exam Physical Exam: GENERAL: Alert and oriented x3. NAD, on RA. HEENT: No pallor, no icterus. Pupils equal, round and reactive to light. Oral mucosa moist. NECK: No JVD, no neck masses. HEART: S1 and S2 heard. Regular rate and rhythm. No murmur, no gallop. RESPIRATORY SYSTEM: Normal AP diameter. No accessory muscle use. No wheezing, no crackles. ABDOMEN: Soft, bowel sounds present, nontender, no distention. CENTRAL NERVOUS SYSTEM: No facial droop. Speech is clear. Obeys simple commands. Moves extremities. EXTREMITIES: No edema, no erythema seen. Rt sided weakness noted but no paresis. Pain at hip with movement of BLE - improving. Decreased ROM of BLE. Distal Neurovascular status normal. Results & Data Results & Data ([facility]) Vital Signs (Past 12 Hours) Vital Signs Temp Pulse Pulse Resp BP Pulse Ox 06/18/21 16:09 36.7 C 69 17 114/70 97 06/18/21 15:17 58 L 06/18/21 12:14 36.9 C 63 17 130/68 96 06/18/21 09:56 74 06/18/21 07:56 37.0 C 89 18 101/63 96 (1) Closed fracture of left inferior pubic ramus Encounter type: initial encounter Qualified Code(s): S32.592A - Other specified fracture of left pubis, initial encounter for closed fracture (2) Closed fracture of superior ramus of left pubis Encounter type: initial encounter Qualified Code(s): S32.512A - Fracture of superior rim of left pubis, initial encounter for closed fracture (3) Closed fracture of right superior pubic ramus Encounter type: initial encounter Qualified Code(s): S32.511A - Fracture of superior rim of right pubis, initial encounter for closed fracture (4) Closed fracture of right inferior pubic ramus Encounter type: initial encounter Qualified Code(s): S32.591A - Other specified fracture of right pubis, initial encounter for closed fracture
[2021-06-18] MEDS: levETIRAcetam 250 MG TAB PO SCH (20:43)
[2021-06-18] MEDS: DULoxetine HCL 60 MG CAP PO SCH (20:43)
[2021-06-19] MEDS: HYDROCODONE/ACETAMOPHEN 5/325MG TAB PO PRN ×3 (00:23→18:04)
[2021-06-19] MEDS: NAFCILLIN SODIUM 2,000 MG in DEXTROSE 5% 100 ML IV SCH ×6 (02:32→22:20)
[2021-06-19 06:10] LABS: Hematocrit (blood only) 32.6 % (42-52); Hemoglobin 11.1 g/dL (14.0-18.0); Mean Corpuscular Hemoglobin 31.7 pg (25-34); Mean Corpuscular Volume 93.1 fL (80-100); Mean Platelet Volume 8.5 fL (7.4-10.4); Platelet Count 188 K/uL (130-400); RDW Coefficient of Variation 12.9 % (11.5-14.5); RDW Standard Deviation 43.3 fL (36.4-46.3)
[2021-06-19 06:55] LABS: Calcium 8.7 mg/dl (8.5-10.1); Creatinine Clr Calc Pharmacy 89.5 ml/min; Est GFR (African American) 93.9 ml/min; Magnesium 2.3 mg/dl (1.8-2.4); Potassium 3.8 mmol/L (3.5-5.1)
[2021-06-19] MEDS: NICOTINE 21 MG/24 HR TDSY TD SCH (08:19)
[2021-06-19] MEDS: INSULIN GLARGINE SOLOSTAR 100 UNITS/ML 3 ML PEN SC SCH ×2 (08:19→20:32)
[2021-06-19] MEDS: INSULIN ASPART 100 UNITS/ML 3 ML PEN SC SCH ×4 (08:20→20:30)
[2021-06-19] MEDS: CHOLECALCIFEROL 1,000 UNITS 25 MCG TAB PO SCH (08:21)
[2021-06-19] MEDS: TAMSULOSIN HCL 0.4 MG CAP PO SCH (08:22)
[2021-06-19] MEDS: ISOSORBIDE MONO EXTENDED REL 60 MG TABCR PO SCH (08:22)
[2021-06-19] MEDS: METOPROLOL TARTRATE 25 MG TAB PO SCH ×2 (08:22→19:44)
[2021-06-19] MEDS: FOLIC ACID 400 MCG TAB PO SCH (08:22)
[2021-06-19] MEDS: THIAMINE HCL 100 MG TAB PO SCH (08:22)
--- NOTE | 2021-06-19 10:48 | Cardiology Progress Note ---
Date of Service June 19, 2021 Assessment & Plan (1) H/O: CVA (cerebrovascular accident): (2) Alcohol use disorder: (3) Recurrent syncope: (4) Fall: (5) ASCVD (arteriosclerotic cardiovascular disease): (6) Statin intolerance: (7) COPD (chronic obstructive pulmonary disease): (8) Diabetes mellitus, type II: (9) Left thalamic infarction: Plan: Believe the patient's etiology of multiple mechanical falls and syncope are related to orthostatic hypotension. Extensive cardiac work-up in the past has been negative and he has had no arrhythmias since he has been in the hospital. I agree with stopping his amlodipine. If he is a little hypertensive when he is laying down I think that is appropriate so when he stands he does not become symptomatic due to low blood pressure. He has a history of an occluded left carotid artery and one would have to consider that his orthostatic hypotension may be related to carotid artery disease specifically the carotic bulb. In any case from a cardiology standpoint we would recommend no additional testing or treatment at this time and the patient can be discharged per the hospitalist service. Admission and Anticipated Discharge Date Admission Date: June 15, 2021 Subjective The patient is resting comfortably. Review of Systems Review of Systems: Review of Systems: See HPI for pertinent positives. All other 10 point review of systems are negative. Physical Exam Physical Exam: General: no acute distress and stated age Head: normocephalic, no masses, lesions, tenderness or abnormalities Eyes: conjunctiva are pink and non-injected, sclera clear Neck: supple, no adenopathy, no bruits, normal jugular venous pulse, no hepatojugular reflux Chest: normal shape and normal respiratory effort Lungs: clear to auscultation and percussion Cardiac Exam: - regular rate & rhythm, no murmurs gallops or rubs - normal S1, normal S2 Pulses: 2(+) throughout Abdomen: abdomen soft, non-tender, no abnormal masses and no hepatosplenomegaly Musculoskeletal: no gait disturbance, no joint inflammation, no deforming arthritis Extremities: no edema and no cyanosis Neuro: grossly normal exam Results & Data ([facility]) Vital Signs (Past 12 Hours) Vital Signs Temp Pulse Pulse Pulse Resp BP Pulse Ox 06/19/21 08:00 55 L 06/19/21 07:18 36.7 C 61 18 171/81 H 95 06/19/21 07:03 36.5 C 64 16 184/82 H 95 06/19/21 04:08 36.6 C 62 20 154/82 H 95 06/18/21 22:49 36.8 C 62 16 170/84 H 94 Laboratory Results Laboratory Results - last 24 hr 06/18/21 06/18/21 06/18/21 11:31 16:14 20:17 WBC RBC Hgb Hct MCV MCH MCHC RDW Std Deviation RDW Coeff of Keny Plt Count MPV Sodium Potassium Chloride Carbon Dioxide Anion Gap BUN Creatinine Est Cr Clr Drug Dosing Est GFR ( Amer) Est GFR (Non-Af Amer) BUN/Creatinine Ratio Glucose POC Glucose 134 H 107 H 103 H Calcium Magnesium Total Creatine Kinase 06/19/21 06/19/21 06/19/21 05:54 05:54 07:26 WBC 7.70 RBC 3.50 L Hgb 11.1 L Hct 32.6 L MCV 93.1 MCH 31.7 MCHC 34.0 RDW Std Deviation 43.3 RDW Coeff of Keny 12.9 Plt Count 188 MPV 8.5 Sodium 135 L Potassium 3.8 Chloride 102 Carbon Dioxide 27 Anion Gap 6.0 BUN 12 Creatinine 0.97 Est Cr Clr Drug Dosing 89.5 Est GFR ( Amer) 93.9 Est GFR (Non-Af Amer) 81.0 BUN/Creatinine Ratio 12.0 Glucose 93 POC Glucose 118 H Calcium 8.7 Magnesium 2.3 Total Creatine Kinase 288 Medications Administered Current Inpatient Medications Acetaminophen (Acetaminophen 500 Mg Tab) 1,000 mg PO Q8H PRN PRN Reason: Fever Or Pain Stop: 07/15/21 18:15 Last Admin: 06/17/21 08:43 Dose: 1,000 mg Documented by: Hydrocodone Bitart/Acetaminophen (Hydrocodone/Acetamophen 5/325mg Tab) 1 tab PO TID PRN PRN Reason: Pain Stop: 06/29/21 17:33 Last Admin: 06/19/21 00:23 Dose: 1 tab Documented by: Amlodipine Besylate (Amlodipine Besylate 5 Mg Tab) 2.5 mg PO DAILY BRIAN Stop: 07/16/21 08:59 Last Admin: 06/18/21 08:36 Dose: 2.5 mg Documented by: Dextrose (Dextrose 50% 50 Ml Syringe) 25 - 50 ml IV UD PRN; Protocol PRN Reason: Hypoglycemia Protocol Stop: 07/15/21 20:03 Duloxetine HCl (Duloxetine Hcl 60 Mg Cap) 60 mg PO HS [facility] Stop: 07/15/21 20:59 Last Admin: 06/18/21 20:43 Dose: 60 mg Documented by: Folic Acid (Folic Acid 400 Mcg Tab) 800 mcg PO QAM [facility] Stop: 07/16/21 08:59 Last Admin: 06/19/21 08:22 Dose: 800 mcg Documented by: Gabapentin (Gabapentin 600 Mg Tab) 600 mg PO Q24H [facility] Stop: 06/19/21 12:01 Glucagon (Glucagon For Inj 1 Mg Vial) 1 mg SQ UD PRN; Protocol PRN Reason: Hypoglycemia Protocol Stop: 07/15/21 20:03 Glucose (Glucose 10 Tabs/Tube) 4 - 8 tabs PO UD PRN; Protocol PRN Reason: Hypoglycemia Protocol Stop: 07/15/21 20:03 Glucose (Glucose 40% Gel 15 Gm Tube) 15 - 30 gm PO UD PRN; Protocol PRN Reason: Hypoglycemia Protocol Stop: 07/15/21 20:03 Lorazepam (Ativan) 1 mg in 2 mls @ 2 mls/min IV UD PRN; Protocol PRN Reason: EtOH Withdrawl AWSS Score 6,7 Stop: 07/15/21 20:03 Lorazepam (Ativan) 2 mg in 4 mls @ 4 mls/min IV UD PRN; Protocol PRN Reason: EtOH Withdrawl AWSS Score 8,9 Stop: 07/15/21 20:03 Lorazepam (Ativan) 3 mg in 6 mls @ 4 mls/min IV ONCE PRN; Protocol PRN Reason: EtOH Withdrawl AWSS Score >=10 Stop: 07/15/21 20:03 Nafcillin Sodium 2,000 mg/ (Dextrose) 108 mls @ 100 mls/hr IV Q4H [facility] Stop: 07/02/21 13:59 Last Admin: 06/19/21 10:37 Dose: 100 mls/hr Documented by: Insulin Aspart (Insulin Aspart 100 Units/Ml 3 Ml Pen) 0 units SC ACHS [facility] Stop: 07/15/21 20:59 Last Admin: 06/19/21 08:20 Dose: 3 units Documented by: Insulin Glargine (Insulin Glargine Solostar 100 Units/Ml 3 Ml Pen) 7 units SC BID [facility] Stop: 07/15/21 20:59 Last Admin: 06/19/21 08:19 Dose: 7 units Documented by: Isosorbide Mononitrate (Isosorbide [place] Extended Rel 60 Mg Tabcr) 60 mg PO QAM [facility] Stop: 07/16/21 08:59 Last Admin: 06/19/21 08:22 Dose: 60 mg Documented by: Levetiracetam (Levetiracetam 250 Mg Tab) 250 mg PO HS [facility] Stop: 07/18/21 20:59 Last Admin: 06/18/21 20:43 Dose: 250 mg Documented by: Lorazepam (Lorazepam 1 Mg Tab) 1 mg PO ONE PRN; Protocol PRN Reason: EtoH Withdrawal AWSS 6-10 Metoprolol Tartrate (Metoprolol Tartrate 25 Mg Tab) 25 mg PO BID [facility] Stop: 07/15/21 20:59 Last Admin: 06/19/21 08:22 Dose: 25 mg Documented by: Miscellaneous (Carbohydrates For Hypoglycemia ) 15 - 30 gm PO UD PRN PRN Reason: Hypoglycemia Protocol Stop: 07/15/21 20:03 Miscellaneous (Remove Nicoderm Patch) 1 ea N/A DAILY@0859 [facility] Stop: 07/16/21 08:58 Last Admin: 06/19/21 08:22 Dose: 1 ea Documented by: Morphine Sulfate (Morphine Sulfate 2 Mg/Ml Carp) 2 mg IV Q6H PRN PRN Reason: Pain Stop: 06/29/21 20:03 Last Admin: 06/16/21 18:15 Dose: 2 mg Documented by: Nicotine (Nicotine 21 Mg/24 Hr Tdsy) 21 mg TD [facility] Stop: 07/16/21 08:59 Last Admin: 06/19/21 08:19 Dose: 21 mg Documented by: Nitroglycerin (Nitroglycerin Sl 0.4 Mg/Tab Tab) 0.4 mg SL UD PRN PRN Reason: Chest Pain Stop: 07/15/21 17:33 Ondansetron HCl (Ondansetron 4 Mg Od Tab) 4 mg PO Q6H PRN PRN Reason: Nausea And Vomiting Stop: 07/15/21 18:13 Tamsulosin HCl (Tamsulosin Hcl 0.4 Mg Cap) 0.4 mg PO QAM [facility] Stop: 07/16/21 08:59 Last Admin: 06/19/21 08:22 Dose: 0.4 mg Documented by: Thiamine HCl (Thiamine Hcl 100 Mg Tab) 100 mg PO QAM [facility] Stop: 07/16/21 08:59 Last Admin: 06/19/21 08:22 Dose: 100 mg Documented by: Vitamin D (Cholecalciferol 1,000 Units 25 Mcg Tab) 1,000 units PO QAM [facility] Stop: 07/16/21 08:59 Last Admin: 06/19/21 08:21 Dose: 1,000 units Documented by: (1) Fall Encounter type: initial encounter Qualified Code(s): W19.XXXA - Unspecified fall, initial encounter
--- NOTE | 2021-06-19 11:08 | Hospitalist Progress Note ---
Date of Service June 19, 2021 Assessment & Plan (1) Recurrent syncope: (2) Closed fracture of right iliac wing: (3) Closed fracture of left inferior pubic ramus: (4) Closed fracture of superior ramus of left pubis: (5) Closed fracture of right superior pubic ramus: (6) Closed fracture of right inferior pubic ramus: (7) Bacteremia: Plan: per Dr. 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 Pt denied preceding nausea, sweating, palpitation. Per , patient might have been unconscious anywhere between 30 min to 60 min and he was disoriented when found by his son; no bowel or bladder incontinence. Of note, patient is current smoker 1 PPD and drinker 5- 6 beers/d (since teenage). #. Recurrent syncope, likely from Orthostatic Hypotension, Possible Seizure Prior 3 events of syncope in the past 13 months; seen by neurology and cardiology in the past. In the last admission, his beta-radha was decreased due to concern of orthost asis and bradycardia. Patient had been advised to stop smoking tobacco and drinking alcohol, patient continues to use both of them. Admitting CT head with no acute finding, redemonstration of a colloid cyst. Admitting EKG: NSR Neurology and cardiology consulted Cardiology thinks the syncopal episodes are connected to alcohol abuse, agrees with orthostatic blood pressure measurement. Neurology: Repeat MRI, EEG (no seizure focus or spikes), ambulatory EEG -72 hours as an outpatient, empiric treatment with anticonvulsant --> started on Keppra 250mg hs x 1 wk, then bid x1 week f/b 250 mg QAM and 500 mg QHS f/b 500 mg BID. Hold cyclobenzaprine Orthostatic vitals: positive. Slow change in position (sleep to sitting, sitting to standing) to avoid chances of orthostasis and fall, pt on amlod and tamsulosin; will hold amlod for now, await more input from cardio for cardiovascular meds adjustment. 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 Patient is a chronic alcoholic and tobacco abuser which will contribute to his increased chances of fracture. Admitting CTAP: Displaced pelvic rami fractures with associated extraperitoneal hemorrhage. Nondisplaced pubic ring fractures. Nondisplaced right sacral ala fracture. Nondisplaced right medial iliac bone fracture with associated intramuscular hemorrhage. Orthopedics on board: Conservative management. Mobilize as tolerated. Weightbearing as tolerated. Walker for first 4 weeks. Follow-up in 1 month upon discharge. Continue pain management. PT/OT 06/19 no surgical intervention continue PT/OT #. MSSA Bacteremia Admitting blood culture positive for gram-positive cocci within 24 hours, source unknown Started 06/15 Zosyn, added vancomycin --> changed to nafcillin 06/18 after C/S out. Patient afebrile, WBC trending down f/u repeat Bl Cx, d/w cardio for possible Echo, ID consulted, await recs. 06/19 Echo no note of bacteremia Bld cx 06/15: 1 out o2 bottles ZARINA 06/17: no growth so far continue Nafcillin ID consult pending #. Mild hyponatremia Patient has chronic hyponatremia with baseline around 130-131, likely secondary to decreased solute intake and increase alcohol intake Admitting sodium level 129 Resolved to baseline #. Alcohol abuse Six beers a day AWSS protocol -- no signs of overt alcohol withdrawal #. Tobacco abuse 1 packs a day Nicotine patch #. Chronic medical conditions: Depression/GERD/HLD/COPD/DM type II/CAD/h/o CVA/h/o carotid stenosis Resume home medications #. Diabetes type 2 On sliding scale DVT prophylaxis: SCDs, pelvic fracture associated with extraperitoneal and intramuscular hemorrhage, no chemoprophylaxis. Follow daily H&H. Disposition: PT/OT - may need rehab at discharge Admission and Anticipated Discharge Date Admission Date: June 15, 2021 Subjective ff up for syncope, etc seen resting in bed, comfortable,not in distress smiling states he feels very tired had dizziness when standing yesterday no chest pain, dyspnea, palpitations, dizziness no fever/chills, nausea/vomiting no other symptoms Review of Systems Review of Systems: all noted and negative except for above Physical Exam Physical Exam: General- oriented x 3, not in distress, speaks in sentences with no effort or accessory muscle use Head- atraumatic Eyes- PERRL, EOMI, anicteric ENT- oropharynx clear Neck- supple, no JVD, no adenopathy, no thyromegaly; carotids +2/2, no bruits appreciated Lungs- clear to auscultation bilaterally, no rales/wheezes Heart- normal rate, regular rhythm; no murmur, no gallop, no rub appreciated Abdomen- normal bowel sounds, nondistended, soft, nontender, no masses or hepatosplenomegaly Extremities- no pretibial edema, no calf tenderness; peripheral pulses intact Neuro- alert, oriented x 3; CN 2-12 grossly intact; motor 5/5 bilat erally;sensation 100% on all extremities; no other gross focal neurologic deficits Skin- warm & dry Results & Data Results & Data ([facility]) Vital Signs (Past 12 Hours) Vital Signs Temp Pulse Pulse Pulse Resp BP Pulse Ox 06/19/21 08:00 55 L 06/19/21 07:18 36.7 C 61 18 171/81 H 95 06/19/21 07:03 36.5 C 64 16 184/82 H 95 06/19/21 04:08 36.6 C 62 20 154/82 H 95 all noted and reviewed including below (1) Closed fracture of left inferior pubic ramus Encounter type: initial encounter Qualified Code(s): S32.592A - Other specified fracture of left pubis, initial encounter for closed fracture (2) Closed fracture of right inferior pubic ramus Encounter type: initial encounter Qualified Code(s): S32.591A - Other specified fracture of right pubis, initial encounter for closed fracture (3) Closed fracture of right superior pubic ramus Encounter type: initial encounter Qualified Code(s): S32.511A - Fracture of superior rim of right pubis, initial encounter for closed fracture (4) Closed fracture of superior ramus of left pubis Encounter type: initial encounter Qualified Code(s): S32.512A - Fracture of superior rim of left pubis, initial encounter for closed fracture
--- NOTE | 2021-06-19 11:37 | Magnetic Resonance Report ---
MR lumbar spine wo con CLINICAL HISTORY: 65 years-old Male with fall, back pain, bl le weakness. Acute low back pain, statu s post fall. Acute weakness of the bilateral lower extremities. COMPARISON: CT of the lumbar spine 06/16/2021, MRI of the lumbar spine 10/11/2015. TECHNIQUE: Multiplanar, multi sequence MRI of the lumbar spine was performed without intravenous cont rast. FINDINGS: The physical therapy assistant localizer images demonstrate no gross extraspinal abnormality. There is artifact from bilat eral hip total joint arthroplasties resulting incomplete fat-saturation. Chronic L2 compression defor mity with kyphoplasty. 4 mm retropulsion is unchanged. No acute fracture, subluxation or endplate ero franklyn. Mild edema along the anterior superior L3 endplate is likely on a degenerative basis. Conus med ullaris terminates at L1-L2. Signal within the imaged thoracic spinal cord appears normal. T12-L1: Mild facet arthrosis. No central canal or neural foraminal stenosis. L1-L2: Moderate intervertebral disc space narrowing. Chronic retropulsion of the L2 segment of 4 mm. Ligamentum flavum thickening with mild facet arthrosis. Mild central canal stenosis with AP dimensio n of the thecal sac measuring 9 mm is unchanged. The right neural foramen is patent. Mild left neural foraminal narrowing. L2-L3: Mild facet arthrosis. No central canal or neural foraminal stenosis. L3-L4: Mild facet arthrosis with small posterior annular disc bulge. The central canal is patent. Mi ld bilateral neural foraminal narrowing has slightly progressed from comparison. L4-L5: Mild intervertebral disc space narrowing with spondylitic spurring and small posterior disc o steophyte complex. There is decreased size of the posterior disc bulge from comparison study. Ligamen chana flavum thickening with moderate facet arthrosis. The central canal is patent. Moderate left with moderate to severe right neural foraminal narrowing, progressed from comparison. L5-S1: Disc desiccation with mild posterior intervertebral disc space narrowing. Spondylitic spurrin g with small central/right paracentral disc protrusion and annular fissure. The central canal and mabel ral foramina appear patent. IMPRESSION: 1. No acute fracture of the lumbar spine. 2. Chronic L2 compression deformity with kyphoplasty and mild retrolisthesis resulting in mild centra l canal stenosis. 3. Discogenic degenerative changes with facet arthrosis as above. 4. Progressively worsened neural foraminal narrowing at L4-L5 is moderate on the left and moderate to severe on the right. ACT 112: Negative or not required by law. The above report was generated using voice recognition software. It may contain grammatical, syntax o r spelling errors. Dictated: 06/19/2021 9:53 AM Transcribed: 06/19/2021 10:37 AM Stephanie [id number] [email or web address] Electronically signed by: Cristobal Morales M.D. 06/19/2021 11:35 AM
[2021-06-19] MEDS ORDERED: GABAPENTIN 600 MG TAB PO SCH (12:00)
--- NOTE | 2021-06-19 14:31 | Neurology Progress Note ---
Date of Service June 19, 2021 Assessment & Plan (1) Syncope: Plan: 1. EEG no seizure focus or spikes 2. MRI brain/ CT -c spine, t spine, l spine- no acute fractures 3. EEG- 72 hours as outpatient- was already done in the past 4. Keppra 250 mg hs started x 1 week then increase to 250 mg q 12 hours x 1 week then increase to 500 mg am 250 mg pm x 1 week then increase to 500 mg q 12hours 5. cardiology for any recommendations 6. PT/OT for discharge needs 7. MRI L spine foraminal narrowing L4-5 severe on right 8. out patient pain mgt and physical therapy and then possible orthopedic consult will schedule a follow up with neurology in 4-6 weeks. call with any addition questions concerns. (2) Alcohol use disorder: Plan: 1. discussion regarding discontinued use of EtOH Admission and Anticipated Discharge Date Admission Date: June 15, 2021 Supervising Physician Co-Signing Physician Notes I have seen and discussed above patient with Dr Elsie Capone, neurology patient seen and briefly examined. Discussed the patient with Elsie Hernandez as well as the patient and his . Apparently he will need to be on a relatively protracted course of antibiotics due to positive blood cultures. MRI of the lumbar spine does not show anything acute there is some progression of neural foraminal encroachment but certainly nothing that would explain a sense of increased weakness in the lowers. Patient indicates that his strength is back to baseline he was up getting dressed today and walking. He did have a syncopal episode associated with sitting up and found to be hypotensive. Amlodipine by report was discontinued. In summary this patient has had 4 episodes of loss of consciousness at least 2 of which that I know of where there was a protracted episode of loss of consciousness all unwitnessed and he was confused thereafter. With this most recent episode there was some evidence of tongue biting and he was confused. Although orthostasis could certainly make one loose consciousness typically when 1 falls down blood pressure is restored and the episode of loss of consciousness is brief and not usually associated with postevent confusion Mr. León has a neuropathy and very likely has an autonomic neuropathy. I agree with minimizing cardiovascular medicines and monitoring. Hopefully he will not need anything to bring his pressure up such as midodrine or Florinef. His is concerned because when he had his partial aortic dissection they impressed upon her how important it was to avoid hypertension In spite of the above I have elected to treat him empirically with an anticonvulsant. He has had a moderate size cortical stroke he has had four these episodes does not recall a prodrome of lightheadedness. He has been confused on at least 2 of them after and with the most recent episode bit his tongue and sustained some pelvic fractures. We will escalate the Keppra gradually so as to ensure tolerance. Certainly if he were to have a documented episode with hypotension or had multiple episodes in spite of anticonvulsants I would be willing to reconsider that thought. The patient's bilateral lower extremity weakness was related to pain. He has some residual right lower extremity weakness related to his stroke.. Elsie Ríos Patel is a 65 year old male with a PMH -CVA in 2012 and 2016 with residual R sided weakness and partial aphasia, CAD, DM II, COPD, alcohol use disorder, tobacco use, HTN, carotid disease (EDITH s/p stent, LICA occluded), recurrent syncope. who presented to [facility] ED with syncopal episode. Prior to arrival he had a LOC and fell. He was down for 30-60 minutes although exact duration is unknown - his son found him trying to get up and into a chair. There was immediate pain in right hip area after fall. His previous admission for syncope were May 2020, Sep 2020 (at [facility]), and January 2021. He wore a Zio was negative in 11/11. It was thought during his last admission that he may be becoming orthostatic and bradycardic due to his beta radha so the metoprolol dose was decreased. He has chronic right-sided weakness due to prior CVA. He has a history of a right carotid stent, which was patent on most recent vascular evaluation earlier this year. He has a known left carotid occlusion and is on dual anti-platelet therapy. He continues to smoke 1 PPD and drink 5-6 beers per day. Today is got up to go the the bathroom with minimal assist. He was working with OT and had a syncopial episode. He has been orthostatic and Cardiology is working on his blood pressure. He says the pain is much better today. denies CP, SOB, abdominal pain. Review of Systems Review of Systems: All systems reviewed & are unremarkable except as noted in HPI & below Physical Exam Physical Exam: Physical Exam: Constitutional: appearance nourished, healthy and normal Ears, Nose, Mouth and Throat: mucous membranes moist, no injection and skin normal, eyes normal Cardiovascular: normal S-1 and S-2 and regular rate and rhythm Respiratory: clear to auscultation (CTA) and no rales, rhonchi or wheeze Musculoskeletal: no peripheral edema and good distal pulses Skin: no stigmata of neurocutaneous disease noted and normal and intact Eyes: extraocular muscles intact (EOMI) NEUROLOGIC EXAMINATION: Mental status: Alert and interactive Oriented to full date and location Oriented to person Speech fluent with no evidence of aphasia, some trouble with complex communication Cranial Nerves smile eye brow raise symmetric Reflexes: Deep tendon reflexes were symmetrical and graded 2/5. toes neutral Sensory: light cool vibration Coordination: finger to nose no bi pass Gait/Stance: Posture lying in bed, OT is slowly sitting him up Motor: Negative for pronator drift of out stretched arms with eyes closed. 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 5/5 bilaterally hip flex right 4+/5 left 5/5, plantar flex ext 5/5 Results & Data ([facility]) Vital Signs (Past 12 Hours) Vital Signs Temp Pulse Pulse Pulse Resp BP Pulse Ox 06/19/21 10:52 36.4 C L 111 H 18 158/87 H 95 06/19/21 08:00 55 L 06/19/21 07:18 36.7 C 61 18 171/81 H 95 06/19/21 07:03 36.5 C 64 16 184/82 H 95 06/19/21 04:08 36.6 C 62 20 154/82 H 95 Laboratory Results Abnormal lab results 06/18/21 06/18/21 06/19/21 Range/Units 16:14 20:17 05:54 RBC 3.50 L (4.7-6.1) M/uL Hgb 11.1 L (14.0-18.0) g/dL Hct 32.6 L (42-52) % Sodium (136-145) mmol/L POC Glucose 107 H 103 H (70-99) mg/dl 06/19/21 06/19/21 06/19/21 Range/Units 05:54 07:26 10:50 RBC (4.7-6.1) M/uL Hgb (14.0-18.0) g/dL Hct (42-52) % Sodium 135 L (136-145) mmol/L POC Glucose 118 H 113 H (70-99) mg/dl 06/19/21 Range/Units 11:23 RBC (4.7-6.1) M/uL Hgb (14.0-18.0) g/dL Hct (42-52) % Sodium (136-145) mmol/L POC Glucose 124 H (70-99) mg/dl Diagnostic Findings MRI L spine-No acute fracture of the lumbar spine. Chronic L2 compression deformity with kyphoplasty and mild retrolisthesis resulting in mild central canal stenosis. Discogenic degenerative changes with facet arthrosis as above. Progressively worsened neural foraminal narrowing at L4-L5 is moderate on the left and moderate to severe on the right. (1) Syncope Syncope type: unspecified Qualified Code(s): R55 - Syncope and collapse
[2021-06-19] MEDS ORDERED: hydrALAZINE HCL 20 MG/ML VIAL IV PRN (17:13)
[2021-06-19] MEDS: DULoxetine HCL 60 MG CAP PO SCH (19:44)
[2021-06-19] MEDS: levETIRAcetam 250 MG TAB PO SCH (19:44)
[2021-06-19] MEDS: ACETAMINOPHEN 500 MG TAB PO PRN (20:28)
[2021-06-20] MEDS: NAFCILLIN SODIUM 2,000 MG in DEXTROSE 5% 100 ML IV SCH ×2 (01:43→06:03)
[2021-06-20] MEDS: HYDROCODONE/ACETAMOPHEN 5/325MG TAB PO PRN ×2 (01:45→22:34)
[2021-06-20] MEDS: INSULIN ASPART 100 UNITS/ML 3 ML PEN SC SCH ×4 (08:35→21:02)
[2021-06-20] MEDS: CHOLECALCIFEROL 1,000 UNITS 25 MCG TAB PO SCH (08:40)
[2021-06-20] MEDS: FOLIC ACID 400 MCG TAB PO SCH (08:40)
[2021-06-20] MEDS: THIAMINE HCL 100 MG TAB PO SCH (08:41)
[2021-06-20] MEDS: ISOSORBIDE MONO EXTENDED REL 60 MG TABCR PO SCH (08:41)
[2021-06-20] MEDS: TAMSULOSIN HCL 0.4 MG CAP PO SCH (08:41)
[2021-06-20] MEDS: NICOTINE 21 MG/24 HR TDSY TD SCH (08:43)
[2021-06-20] MEDS: INSULIN GLARGINE SOLOSTAR 100 UNITS/ML 3 ML PEN SC SCH ×2 (08:48→22:31)
[2021-06-20] MEDS: METOPROLOL TARTRATE 25 MG TAB PO SCH ×2 (08:51→20:01)
[2021-06-20] MEDS: ceFAZolin 2000MG 2,000 MG/15 ML SYR IV SCH ×2 (10:26→17:41)
--- NOTE | 2021-06-20 12:45 | Hospitalist Progress Note ---
Date of Service June 20, 2021 Assessment & Plan (1) Recurrent syncope: (2) Closed fracture of right iliac wing: (3) Closed fracture of left inferior pubic ramus: (4) Closed fracture of superior ramus of left pubis: (5) Closed fracture of right superior pubic ramus: (6) Closed fracture of right inferior pubic ramus: (7) Bacteremia: Plan: per Dr. 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 Pt denied preceding nausea, sweating, palpitation. Per , patient might have been unconscious anywhere between 30 min to 60 min and he was disoriented when found by his son; no bowel or bladder incontinence. Of note, patient is current smoker 1 PPD and drinker 5- 6 beers/d (since teenage). #. Recurrent syncope, likely from Orthostatic Hypotension, Possible Seizure Prior 3 events of syncope in the past 13 months; seen by neurology and cardiology in the past. In the last admission, his beta-radha was decreased due to concern of orthost asis and bradycardia. Patient had been advised to stop smoking tobacco and drinking alcohol, patient continues to use both of them. Admitting CT head with no acute finding, redemonstration of a colloid cyst. Admitting EKG: NSR Neurology and cardiology consulted Cardiology thinks the syncopal episodes are connected to alcohol abuse, agrees with orthostatic blood pressure measurement. Neurology: Repeat MRI, EEG (no seizure focus or spikes), ambulatory EEG -72 hours as an outpatient, empiric treatment with anticonvulsant --> started on Keppra 250mg hs x 1 wk, then bid x1 week f/b 250 mg QAM and 500 mg QHS f/b 500 mg BID. Hold cyclobenzaprine Orthostatic vitals: positive. Slow change in position (sleep to sitting, sitting to standing) to avoid chances of orthostasis and fall, pt on amlod and tamsulosin; will hold amlod for now, await more input from cardio for cardiovascular meds adjustment. 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 Brito RCA dissection was on 2017, at this time, BP is ok to be a little elevated to prevent hypotension and syncope monitor BP Keppra 250mg HS started, then uptitrate per Neuro recs continue PT/OT #. 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 Patient is a chronic alcoholic and tobacco abuser which will contribute to his increased chances of fracture. Admitting CTAP: Displaced pelvic rami fractures with associated extraperitoneal hemorrhage. Nondisplaced pubic ring fractures. Nondisplaced right sacral ala fracture. Nondisplaced right medial iliac bone fracture with associated intramuscular hemorrhage. Orthopedics on board: Conservative management. Mobilize as tolerated. Weightbearing as tolerated. Walker for first 4 weeks. Follow-up in 1 month upon discharge. Continue pain management. PT/OT 06/20 no surgical intervention continue PT/OT #. MSSA Bacteremia Admitting blood culture positive for gram-positive cocci within 24 hours, source unknown Started 06/15 Zosyn, added vancomycin --> changed to nafcillin 06/18 after C/S out. Patient afebrile, WBC trending down f/u repeat Bl Cx, d/w cardio for possible Echo, ID consulted, await recs. 06/20 Echo: pending Bld cx 06/15: 1 out of 2 bottles ZARINA 06/17: no growth so far ID consulted, recommend to transition to Cefazolin 2g IV q8h, until Jun 30 echo ordered #. Mild hyponatremia Patient has chronic hyponatremia with baseline around 130-131, likely secondary to decreased solute intake and increase alcohol intake Admitting sodium level 129 Resolved to baseline #. Alcohol abuse Six beers a day AWSS protocol -- no signs of overt alcohol withdrawal #. Tobacco abuse 1 packs a day Nicotine patch #. Chronic medical conditions: Depression/GERD/HLD/COPD/DM type II/CAD/h/o CVA/h/o carotid stenosis Resume home medications #. Diabetes type 2 On sliding scale DVT prophylaxis: SCDs, pelvic fracture associated with extraperitoneal and intramuscular hemorrhage, no chemoprophylaxis. Follow daily H&H. Disposition: PT/OT - may need rehab at discharge plan of care discussed with patient in detail and at length all questions answered he is understanding, agreeable, comfortable with the plan of care also discussed with patient's Maria Dolores yesterday she is understanding, agreeable, comfortable with the plan of care Admission and Anticipated Discharge Date Admission Date: June 15, 2021 Subjective ff up for syncope, etc seen resting in bed, comfortable just had echo done states he feels better today less dizziness when standing, ambulating to the bathroom less weak no chest pain, dyspnea, palpitations, dizziness slept well last night no other symptoms Review of Systems Review of Systems: all noted and negative except for above Physical Exam Physical Exam: General- oriented x 3, not in distress, speaks in sentences with no effort or accessory muscle use Eyes- anicteric Neck- no JVD Lungs- clear breath sounds bilaterally, no rales/wheezes Heart- normal rate, regular rhythm; no murmurs Abdomen- normal bowel sounds, nondistended, soft, nontender Extremities- no pretibial edema, no calf tenderness Neuro- alert, oriented x 3; no new gross focal neurologic deficits Skin- warm & dry Results & Data Results & Data ([facility]) Vital Signs (Past 12 Hours) Vital Signs Temp Pulse Pulse Pulse Resp BP Pulse Ox 06/20/21 12:00 36.7 C 55 L 19 138/76 95 06/20/21 07:56 36.7 C 55 L 19 162/80 H 95 06/20/21 05:09 36.4 C L 51 L 16 159/78 H 95 06/20/21 03:48 57 L Pulse Ox 06/20/21 12:00 06/20/21 07:56 06/20/21 05:09 06/20/21 03:48 95 all noted and reviewed including below (1) Closed fracture of left inferior pubic ramus Encounter type: initial encounter Qualified Code(s): S32.592A - Other specified fracture of left pubis, initial encounter for closed fracture (2) Closed fracture of superior ramus of left pubis Encounter type: initial encounter Qualified Code(s): S32.512A - Fracture of superior rim of left pubis, initial encounter for closed fracture (3) Closed fracture of right superior pubic ramus Encounter type: initial encounter Qualified Code(s): S32.511A - Fracture of superior rim of right pubis, initial encounter for closed fracture (4) Closed fracture of right inferior pubic ramus Encounter type: initial encounter Qualified Code(s): S32.591A - Other specified fracture of right pubis, initial encounter for closed fracture
--- NOTE | 2021-06-20 12:50 | Cardiology Progress Note ---
Date of Service June 20, 2021 Assessment & Plan (1) H/O: CVA (cerebrovascular accident): (2) Alcohol use disorder: (3) Recurrent syncope: (4) Fall: (5) ASCVD (arteriosclerotic cardiovascular disease): (6) Statin intolerance: (7) COPD (chronic obstructive pulmonary disease): (8) Diabetes mellitus, type II: (9) Left thalamic infarction: Plan: Reviewed the patient's echocardiogram today. This study was suggested by infectious disease due to a staph bacteremia. Follow-up cultures are pending. The echocardiogram is not the best quality. The patient has grossly normal heart valves and normal left and right ventricular systolic function. Unless the patient's follow-up blood cultures become positive I would recommend no additional cardiac testing. Admission and Anticipated Discharge Date Admission Date: June 15, 2021 Subjective The patient is alert and in no acute distress enjoying lunch. He has no complaints. Review of Systems Review of Systems: Review of Systems: See HPI for pertinent positives. All other 10 point review of systems are negative. Physical Exam Physical Exam: General: no acute distress and stated age Head: normocephalic, no masses, lesions, tenderness or abnormalities Eyes: conjunctiva are pink and non-injected, sclera clear Neck: supple, no adenopathy, no bruits, normal jugular venous pulse, no hepatoju gular reflux Chest: normal shape and normal respiratory effort Lungs: clear to auscultation and percussion Cardiac Exam: - regular rate & rhythm, no murmurs gallops or rubs - normal S1, normal S2 Pulses: 2(+) throughout Abdomen: abdomen soft, non-tender, no abnormal masses and no hepatosplenomegaly Musculoskeletal: no gait disturbance, no joint inflammation, no deforming arthritis Extremities: no edema and no cyanosis Neuro: grossly normal exam Results & Data ([facility]) Vital Signs (Past 12 Hours) Vital Signs Temp Pulse Pulse Pulse Resp BP Pulse Ox 06/20/21 12:00 36.7 C 55 L 19 138/76 95 06/20/21 07:56 36.7 C 55 L 19 162/80 H 95 06/20/21 05:09 36.4 C L 51 L 16 159/78 H 95 06/20/21 03:48 57 L Pulse Ox 06/20/21 12:00 06/20/21 07:56 06/20/21 05:09 06/20/21 03:48 95 Laboratory Results Laboratory Results - last 24 hr 06/19/21 06/19/21 06/20/21 16:14 20:30 07:09 POC Glucose 112 H 99 103 H 06/20/21 11:17 POC Glucose 101 H Diagnostic Findings The echocardiogram is technically limited. Grossly normal left and right ventricular systolic function and grossly normal heart valves. (1) Fall Encounter type: initial encounter Qualified Code(s): W19.XXXA - Unspecified fall, initial encounter
--- NOTE | 2021-06-20 13:40 | Progress Notes ---
DATE OF SERVICE: 06/20/2021 SUBJECTIVE: A 65-year-old gentleman admitted with a syncopal episode and a stable pelvis fracture. He seems to be getting a little bit better. Some pain in bed, but very manageable. A bit more painfu l particularly on the right side with weightbearing. He has had an extensive workup for his syncopal episodes. No new complaints. OBJECTIVE: VITAL SIGNS: Temperature is 36.7. Vital signs are stable. PHYSICAL EXAMINATION: GENERAL: Shows a pleasant middle-aged male. He is sitting up in bed, looks comfortable. EXTREMITIES: Examination of his legs reveals no visible deformity. He has got no significant swelli ng. He has got no pain with passive hip motion on either side. He has difficulty doing a straight l eg raise on the right side, not so much on the left. He is neurologically intact. ASSESSMENT: A 65-year-old gentleman status post bilateral hip replacements with a stable pelvis frac ture from a fall. He is orthopedically stable. He seems to be making progress and getting a little bit more comfortable. Therapy has been going okay as per the patient. PLAN: From our standpoint, he can fully weightbear as tolerated. He will need a walker probably for the next month. I need to see him back in a month. Any orthopedic questions can be directed to me at [phone]. Job ID: [id number]
[2021-06-20] MEDS ORDERED: MAGNESIUM HYDROXIDE SUSP 30 ML UDC PO ONE (19:24)
[2021-06-20] MEDS: DULoxetine HCL 60 MG CAP PO SCH (20:00)
[2021-06-20] MEDS: levETIRAcetam 250 MG TAB PO SCH (20:01)
[2021-06-21] MEDS ORDERED: MAGNESIUM HYDROXIDE SUSP 30 ML UDC PO PRN (01:30)
[2021-06-21] MEDS: ceFAZolin 2000MG 2,000 MG/15 ML SYR IV SCH ×3 (03:08→17:08)
[2021-06-21] MEDS: INSULIN ASPART 100 UNITS/ML 3 ML PEN SC SCH ×4 (08:00→20:39)
[2021-06-21] MEDS: THIAMINE HCL 100 MG TAB PO SCH (08:40)
[2021-06-21] MEDS: FOLIC ACID 400 MCG TAB PO SCH (08:40)
[2021-06-21] MEDS: TAMSULOSIN HCL 0.4 MG CAP PO SCH (08:40)
[2021-06-21] MEDS: CHOLECALCIFEROL 1,000 UNITS 25 MCG TAB PO SCH (08:40)
[2021-06-21] MEDS: ISOSORBIDE MONO EXTENDED REL 60 MG TABCR PO SCH (08:40)
[2021-06-21] MEDS: INSULIN GLARGINE SOLOSTAR 100 UNITS/ML 3 ML PEN SC SCH ×2 (08:41→21:43)
[2021-06-21] MEDS: NICOTINE 21 MG/24 HR TDSY TD SCH (08:43)
[2021-06-21] MEDS: METOPROLOL TARTRATE 25 MG TAB PO SCH ×2 (08:48→20:27)
--- NOTE | 2021-06-21 10:02 | Cardiology Progress Note ---
Date of Service June 21, 2021 Assessment & Plan (1) H/O: CVA (cerebrovascular accident): (2) Recurrent syncope: (3) Fall: (4) ASCVD (arteriosclerotic cardiovascular disease): (5) COPD (chronic obstructive pulmonary disease): (6) Diabetes mellitus, type II: (7) Left thalamic infarction: (8) Orthostatic hypotension: Plan: The origin of the patient's recurrent syncope and/or falls is most likely due to orthostatic hypotension either from carotid artery disease or peripheral neuropathy and autonomic dysfunction. There is also a possibility that he is having seizures following his stroke even though his EEGs have been negative. He has been started on anticonvulsants by neurology. Otherwise the patient is currently stable. Admission and Anticipated Discharge Date Admission Date: June 15, 2021 Subjective The patient is alert and oriented. He still is a little unsteady when he first stands but he says that things are better. Review of Systems Review of Systems: Review of Systems: See HPI for pertinent positives. All other 10 point review of systems are negative. Physical Exam Physical Exam: General: no acute distress and stated age Head: normocephalic, no masses, lesions, tenderness or abnormalities Eyes: conjunctiva are pink and non-injected, sclera clear Neck: supple, no adenopathy, no bruits, normal jugular venous pulse, no hepatojugular reflux Chest: normal shape and normal respiratory effort Lungs: clear to auscultation and percussion Cardiac Exam: - regular rate & rhythm, no murmurs gallops or rubs - normal S1, normal S2 Pulses: 2(+) throughout Abdomen: abdomen soft, non-tender, no abnormal masses and no hepatosplenomegaly Musculoskeletal: no gait disturbance, no joint inflammation, no deforming arthri tis Extremities: no edema and no cyanosis Neuro: grossly normal exam Results & Data ([facility]) Vital Signs (Past 12 Hours) Vital Signs Temp Pulse Pulse Resp BP Pulse Ox 06/21/21 08:00 64 06/21/21 07:44 36.7 C 65 18 167/78 H 96 06/21/21 02:56 36.9 C 60 22 156/76 H 95 06/20/21 23:14 37.4 C 68 20 163/82 H 94 (1) Fall Encounter type: initial encounter Qualified Code(s): W19.XXXA - Unspecified fall, initial encounter
[2021-06-21] MEDS: HYDROCODONE/ACETAMOPHEN 5/325MG TAB PO PRN (12:54)
--- NOTE | 2021-06-21 14:48 | Hospitalist Progress Note ---
Date of Service June 21, 2021 Assessment & Plan (1) Recurrent syncope: (2) Closed fracture of right iliac wing: (3) Closed fracture of left inferior pubic ramus: (4) Closed fracture of superior ramus of left pubis: (5) Closed fracture of right superior pubic ramus: (6) Closed fracture of right inferior pubic ramus: (7) Bacteremia: Plan: per Dr. 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 Pt denied preceding nausea, sweating, palpitation. Per , patient might have been unconscious anywhere between 30 min to 60 min and he was disoriented when found by his son; no bowel or bladder incontinence. Of note, patient is current smoker 1 PPD and drinker 5- 6 beers/d (since teenage). #. Recurrent syncope, likely from Orthostatic Hypotension either from carotid artery disease or peripheral neuropathy and autonomic dysfunction Possible Seizure Prior 3 events of syncope in the past 13 months; seen by neurology and cardiology in the past. In the last admission, his beta-radha was decreased due to concern of orthostasis and bradycardia. Patient had been advised to stop smoking tobacco and drinking alcohol, patient continues to use both of them. Admitting CT head with no acute finding, redemonstration of a colloid cyst. Admitting EKG: NSR Neurology and cardiology consulted Cardiology thinks the syncopal episodes are connected to alcohol abuse, agrees with orthostatic blood pressure measurement. Neurology: Repeat MRI, EEG (no seizure focus or spikes), ambulatory EEG -72 hours as an outpatient, empiric treatment with anticonvulsant --> started on Keppra 250mg hs x 1 wk, then bid x1 week f/b 250 mg QAM and 500 mg QHS f/b 500 mg BID. Hold cyclobenzaprine Orthostatic vitals: positive. Slow change in position (sleep to sitting, sitting to standing) to avoid chances of orthostasis and fall, pt on amlod and tamsulosin; will hold amlod for now, await more input from cardio for cardiovascular meds adjustment. Fall precaution, continue to monitor 06/21/2021 Symptoms seems to be improving since amlodipine was discontinued Still had orthostatic hypotension this afternoon with his vital signs, was lightheaded, but no symptoms when ambulating [place]ARLAND hoses ordered monitor Orthostatic VS Medical Supervisor on board, discussed with Dr. Brito RCA dissection was on 2016, at this time, BP is ok to be a little elevated to prevent hypotension and syncope As needed hydralazine ordered monitor BP Keppra 250mg HS started, then uptitrate per Neuro recommendations Tolerating well continue PT/OT #. 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 Patient is a chronic alcoholic and tobacco abuser which will contribute to his increased chances of fracture. Admitting CTAP: Displaced pelvic rami fractures with associated extraperitoneal hemorrhage. Nondisplaced pubic ring fractures. Nondisplaced right sacral ala fracture. Nondisplaced right medial iliac bone fracture with associated intramuscular hemorrhage. Orthopedics on board: Conservative management. Mobilize as tolerated. Weightbearing as tolerated. Walker for first 4 weeks. Follow-up in 1 month upon discharge. Continue pain management. PT/OT 06/21/2021 Tylenol 650 mg 3 times daily scheduled started Continue PT and OT evaluation Will need to transition to rehab pai gow manager on board #. MSSA Bacteremia Admitting blood culture positive for gram-positive cocci within 24 hours, source unknown Started 06/15 Zosyn, added vancomycin --> changed to nafcillin 06/18 after C/S out. Patient afebrile, WBC trending down f/u repeat Bl Cx, d/w cardio for possible Echo, ID consulted, await recs. 06/21/2021 Echo: No note of vegetation, EF 55%, grossly normal valvular structures Bld cx 06/15: 1 out of 2 bottles MSSA 06/17: no growth so far Afebrile ID consulted, recommend to transition to Cefazolin 2g IV q8h, until Jun 30 #. Mild hyponatremia Patient has chronic hyponatremia with baseline around 130-131, likely secondary to decreased solute intake and increase alcohol intake Admitting sodium level 129 Resolved to baseline #. Alcohol abuse Six beers a day AWSS protocol -- no signs of overt alcohol withdrawal #. Tobacco abuse 1 packs a day Nicotine patch #. Chronic medical conditions: Depression/GERD/HLD/COPD/DM type II/CAD/h/o CVA/h/o carotid stenosis Resume home medications #. Diabetes type 2 A1c 5.8 On sliding scale DVT prophylaxis: SCDs, pelvic fracture associated with extraperitoneal and intramuscular hemorrhage, no chemoprophylaxis. Follow daily H&H. Disposition: PT/OT - may need rehab at discharge plan of care discussed with patient and his Maria Dolores over the phone in detail and at length all questions answered They are understanding, agreeable, comfortable with the plan of care Admission and Anticipated Discharge Date Admission Date: June 15, 2021 Subjective Follow-up for recurrent syncope, status post fall, pelvic fractures, staph bacteremia, etc. Seen resting in bed, sleeping but easily awakened Comfortable, in good spirits States he feels fine today overall Only experiences dizziness when getting up, but when ambulating to the bathroom, patient denies dizziness or lightheadedness No fevers or chills Reports discomfort in the pelvic region especially with movement No other symptoms Review of Systems Review of Systems: all noted and negative except for above Physical Exam Physical Exam: General- oriented x 3, not in distress, speaks in sentences with no effort or accessory muscle use Eyes- anicteric Neck- no JVD Lungs- clear BS bilaterally, no crackles, no wheezing on auscultation Heart- normal rate, regular rhythm; no murmurs Abdomen- normal bowel sounds, nondistended, soft, nontender Extremities- no pretibial edema, no calf tenderness Neuro- alert, oriented x 3; no new gross focal neurologic deficits Skin- warm & dry Results & Data Results & Data ([facility]) Vital Signs (Past 12 Hours) Vital Signs Temp Pulse Pulse Resp BP Pulse Ox 06/21/21 12:01 36.6 C 59 L 20 152/85 H 95 06/21/21 08:00 64 06/21/21 07:44 36.7 C 65 18 167/78 H 96 06/21/21 02:56 36.9 C 60 22 156/76 H 95 all noted and reviewed including below (1) Closed fracture of left inferior pubic ramus Encounter type: initial encounter Qualified Code(s): S32.592A - Other specified fracture of left pubis, initial encounter for closed fracture (2) Closed fracture of superior ramus of left pubis Encounter type: initial encounter Qualified Code(s): S32.512A - Fracture of superior rim of left pubis, initial encounter for closed fracture (3) Closed fracture of right superior pubic ramus Encounter type: initial encounter Qualified Code(s): S32.511A - Fracture of superior rim of right pubis, initial encounter for closed fracture (4) Closed fracture of right inferior pubic ramus Encounter type: initial encounter Qualified Code(s): S32.591A - Other specified fracture of right pubis, initial encounter for closed fracture
[2021-06-21] MEDS: ACETAMINOPHEN 325 MG TAB PO SCH ×2 (16:11→20:27)
[2021-06-21] MEDS: DULoxetine HCL 60 MG CAP PO SCH (20:27)
[2021-06-21] MEDS: levETIRAcetam 250 MG TAB PO SCH (20:28)
[2021-06-22] MEDS: ceFAZolin 2000MG 2,000 MG/15 ML SYR IV SCH ×3 (03:06→17:32)
[2021-06-22] MEDS: INSULIN ASPART 100 UNITS/ML 3 ML PEN SC SCH ×4 (08:03→20:29)
[2021-06-22] MEDS: ACETAMINOPHEN 325 MG TAB PO SCH ×3 (08:04→19:55)
[2021-06-22] MEDS: THIAMINE HCL 100 MG TAB PO SCH (08:04)
[2021-06-22] MEDS: NICOTINE 21 MG/24 HR TDSY TD SCH (08:04)
[2021-06-22] MEDS: ISOSORBIDE MONO EXTENDED REL 60 MG TABCR PO SCH (08:04)
[2021-06-22] MEDS: CHOLECALCIFEROL 1,000 UNITS 25 MCG TAB PO SCH (08:04)
[2021-06-22] MEDS: INSULIN GLARGINE SOLOSTAR 100 UNITS/ML 3 ML PEN SC SCH ×2 (08:04→20:33)
[2021-06-22] MEDS: METOPROLOL TARTRATE 25 MG TAB PO SCH ×2 (08:04→19:55)
[2021-06-22] MEDS: TAMSULOSIN HCL 0.4 MG CAP PO SCH (08:04)
[2021-06-22] MEDS: FOLIC ACID 400 MCG TAB PO SCH (08:04)
--- NOTE | 2021-06-22 13:31 | Hospitalist Progress Note ---
Date of Service June 22, 2021 Assessment & Plan (1) Recurrent syncope: (2) Closed fracture of right iliac wing: (3) Closed fracture of left inferior pubic ramus: (4) Closed fracture of superior ramus of left pubis: (5) Closed fracture of right superior pubic ramus: (6) Closed fracture of right inferior pubic ramus: (7) Bacteremia: Plan: per Dr. 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 Pt denied preceding nausea, sweating, palpitation. Per , patient might have been unconscious anywhere between 30 min to 60 min and he was disoriented when found by his son; no bowel or bladder incontinence. Of note, patient is current smoker 1 PPD and drinker 5- 6 beers/d (since teenage). #. Recurrent syncope, likely from Orthostatic Hypotension either from carotid artery disease or peripheral neuropathy and autonomic dysfunction Possible Seizure Prior 3 events of syncope in the past 13 months; seen by neurology and cardiology in the past. In the last admission, his beta-radha was decreased due to concern of orthostasis and bradycardia. Patient had been advised to stop smoking tobacco and drinking alcohol, patient continues to use both of them. Admitting CT head with no acute finding, redemonstration of a colloid cyst. Admitting EKG: NSR Neurology and cardiology consulted Cardiology thinks the syncopal episodes are connected to alcohol abuse, agrees with orthostatic blood pressure measurement. Neurology: Repeat MRI, EEG (no seizure focus or spikes), ambulatory EEG -72 hours as an outpatient, empiric treatment with anticonvulsant --> started on Keppra 250mg hs x 1 wk, then bid x1 week f/b 250 mg QAM and 500 mg QHS f/b 500 mg BID. Hold cyclobenzaprine Orthostatic vitals: positive. Slow change in position (sleep to sitting, sitting to standing) to avoid chances of orthostasis and fall, pt on amlod and tamsulosin; will hold amlod for now, await more input from cardio for cardiovascular meds adjustment. Fall precaution, continue to monitor 06/22/2021 Symptoms seems to be improving since amlodipine was discontinued Still had orthostatic hypotension this afternoon with his vital signs, was lightheaded, but no symptoms when ambulating [place] norman ordered monitor Orthostatic VS Wrapping Machine Operator on board, discussed with Dr. Brito RCA dissection was on 2016, at this time, BP is ok to be a little elevated to prevent hypotension and syncope As needed hydralazine ordered monitor BP -- systolic BP remains ~140-150s dizziness improving daily Keppra 250mg HS started, then uptitrate per Neuro recommendations Tolerating well continue PT/OT #. 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 Patient is a chronic alcoholic and tobacco abuser which will contribute to his increased chances of fracture. Admitting CTAP: Displaced pelvic rami fractures with associated extraperitoneal hemorrhage. Nondisplaced pubic ring fractures. Nondisplaced right sacral ala fracture. Nondisplaced right medial iliac bone fracture with associated intramuscular hemorrhage. Orthopedics on board: Conservative management. Mobilize as tolerated. Weightbearing as tolerated. Walker for first 4 weeks. Follow-up in 1 month upon discharge. Continue pain management. PT/OT 06/22/2021 Tylenol 650 mg 3 times daily scheduled started pain better controlled today Continue PT and OT evaluation Will need to transition to rehab manager research on board #. MSSA Bacteremia Admitting blood culture positive for gram-positive cocci within 24 hours, source unknown Started 06/15 Zosyn, added vancomycin --> changed to nafcillin 06/18 after C/S out. Patient afebrile, WBC trending down f/u repeat Bl Cx, d/w cardio for possible Echo, ID consulted, await recs. 06/21/2021 Echo: No note of vegetation, EF 55%, grossly normal valvular structures Bld cx 06/15: 1 out of 2 bottles MSSA 06/17: no growth so far Afebrile ID consulted, recommend to transition to Cefazolin 2g IV q8h, until Jun 30 #. Mild hyponatremia Patient has chronic hyponatremia with baseline around 130-131, likely secondary to decreased solute intake and increase alcohol intake Admitting sodium level 129 Resolved to baseline #. Alcohol abuse Six beers a day AWSS protocol -- no signs of overt alcohol withdrawal #. Tobacco abuse 1 packs a day Nicotine patch #. Chronic medical conditions: Depression/GERD/HLD/COPD/DM type II/CAD/h/o CVA/h/o carotid stenosis Resume home medications #. Diabetes type 2 A1c 5.8 On sliding scale DVT prophylaxis: SCDs, pelvic fracture associated with extraperitoneal and intramuscular hemorrhage, no chemoprophylaxis. Follow daily H&H. Disposition: PT/OT -recommend rehab plan of care discussed with patient in detail and at length all questions answered he is understanding, agreeable, comfortable with the plan of care Admission and Anticipated Discharge Date Admission Date: June 15, 2021 Subjective ff up for recurrent syncope, etc seen resting in bed, comfortable states he feels fine overall had minimal dizziness getting up today, none while ambulating in the room no chest pain, dyspnea, palpitations pelvic pain improving no other symptoms Review of Systems Review of Systems: all noted and negative except for above Physical Exam Physical Exam: General- oriented x 3, not in distress, speaks in sentences with no effort or accessory muscle use Eyes- anicteric Neck- no JVD Lungs- clear BS BL Heart- normal rate, regular rhythm; no murmurs Abdomen- normal bowel sounds, nondistended, soft, no tenderness on all quadrants Extremities- no pretibial edema, no calf tenderness Neuro- alert, oriented x 3; no gross focal neurologic deficits Skin- warm & dry Results & Data Results & Data ([facility]) Vital Signs (Past 12 Hours) Vital Signs Temp Pulse Pulse Resp BP Pulse Ox 06/22/21 11:49 36.6 C 59 L 18 142/71 H 96 06/22/21 08:00 61 06/22/21 07:21 36.6 C 60 20 161/83 H 96 06/22/21 04:00 36.6 C 55 L 68 17 159/79 H 96 all noted and reviewed including below (1) Closed fracture of left inferior pubic ramus Encounter type: initial encounter Qualified Code(s): S32.592A - Other specified fracture of left pubis, initial encounter for closed fracture (2) Closed fracture of superior ramus of left pubis Encounter type: initial encounter Qualified Code(s): S32.512A - Fracture of superior rim of left pubis, initial encounter for closed fracture (3) Closed fracture of right superior pubic ramus Encounter type: initial encounter Qualified Code(s): S32.511A - Fracture of superior rim of right pubis, initial encounter for closed fracture (4) Closed fracture of right inferior pubic ramus Encounter type: initial encounter Qualified Code(s): S32.591A - Other specified fracture of right pubis, initial encounter for closed fracture
[2021-06-22] MEDS: HYDROCODONE/ACETAMOPHEN 5/325MG TAB PO PRN (16:23)
[2021-06-22] MEDS: levETIRAcetam 250 MG TAB PO SCH (19:55)
[2021-06-22] MEDS: DULoxetine HCL 60 MG CAP PO SCH (19:56)
[2021-06-23] MEDS: ceFAZolin 2000MG 2,000 MG/15 ML SYR IV SCH ×3 (02:14→16:59)
[2021-06-23] MEDS: ZOLPIDEM TARTRATE 5 MG TAB PO PRN (02:14)
[2021-06-23] MEDS: INSULIN ASPART 100 UNITS/ML 3 ML PEN SC SCH ×4 (08:30→19:52)
[2021-06-23] MEDS: INSULIN GLARGINE SOLOSTAR 100 UNITS/ML 3 ML PEN SC SCH ×2 (08:31→19:57)
[2021-06-23] MEDS: NICOTINE 21 MG/24 HR TDSY TD SCH (08:32)
[2021-06-23] MEDS: FOLIC ACID 400 MCG TAB PO SCH (08:33)
[2021-06-23] MEDS: ISOSORBIDE MONO EXTENDED REL 60 MG TABCR PO SCH (08:33)
[2021-06-23] MEDS: THIAMINE HCL 100 MG TAB PO SCH (08:33)
[2021-06-23] MEDS: METOPROLOL TARTRATE 25 MG TAB PO SCH ×2 (08:33→19:53)
[2021-06-23] MEDS: TAMSULOSIN HCL 0.4 MG CAP PO SCH (08:33)
[2021-06-23] MEDS: CHOLECALCIFEROL 1,000 UNITS 25 MCG TAB PO SCH (08:33)
[2021-06-23] MEDS: ACETAMINOPHEN 325 MG TAB PO SCH ×3 (08:34→19:54)
[2021-06-23] MEDS: HYDROCODONE/ACETAMOPHEN 5/325MG TAB PO PRN ×2 (08:45→17:12)
--- NOTE | 2021-06-23 18:41 | Hospitalist Progress Note ---
Date of Service June 23, 2021 Assessment & Plan (1) Recurrent syncope: (2) Closed fracture of right iliac wing: (3) Closed fracture of left inferior pubic ramus: (4) Closed fracture of superior ramus of left pubis: (5) Closed fracture of right superior pubic ramus: (6) Closed fracture of right inferior pubic ramus: (7) Bacteremia: Plan: per Dr. 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 Pt denied preceding nausea, sweating, palpitation. Per , patient might have been unconscious anywhere between 30 min to 60 min and he was disoriented when found by his son; no bowel or bladder incontinence. Of note, patient is current smoker 1 PPD and drinker 5- 6 beers/d (since teenage). #. Recurrent syncope, likely from Orthostatic Hypotension either from carotid artery disease or peripheral neuropathy and autonomic dysfunction Possible Seizure Prior 3 events of syncope in the past 13 months; seen by neurology and cardiology in the past. In the last admission, his beta-radha was decreased due to concern of orthostasis and bradycardia. Patient had been advised to stop smoking tobacco and drinking alcohol, patient continues to use both of them. Admitting CT head with no acute finding, redemonstration of a colloid cyst. Admitting EKG: NSR Neurology and cardiology consulted Cardiology thinks the syncopal episodes are connected to alcohol abuse, agrees with orthostatic blood pressure measurement. Neurology: Repeat MRI, EEG (no seizure focus or spikes), ambulatory EEG -72 hours as an outpatient, empiric treatment with anticonvulsant --> started on Keppra 250mg hs x 1 wk, then bid x1 week f/b 250 mg QAM and 500 mg QHS f/b 500 mg BID. Hold cyclobenzaprine Orthostatic vitals: positive. Slow change in position (sleep to sitting, sitting to standing) to avoid chances of orthostasis and fall, pt on amlod and tamsulosin; will hold amlod for now, await more input from cardio for cardiovascular meds adjustment. Fall precaution, continue to monitor 06/23/2021 Symptoms seems to be improving since amlodipine was discontinued Still had orthostatic hypotension this afternoon with his vital signs, was lightheaded, but no symptoms when ambulating [place] hoses ordered monitor Orthostatic VS Pillow Filler on board, discussed with Dr. Brito RCA dissection was on 2016, at this time, BP is ok to be a little elevated to prevent hypotension and syncope As needed hydralazine ordered monitor BP -- systolic BP 120s to 130s dizziness improving daily Keppra 250mg HS started, then uptitrate per Neuro recommendations Tolerating well continue PT/OT #. 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 Patient is a chronic alcoholic and tobacco abuser which will contribute to his increased chances of fracture. Admitting CTAP: Displaced pelvic rami fractures with associated extraperitoneal hemorrhage. Nondisplaced pubic ring fractures. Nondisplaced right sacral ala fracture. Nondisplaced right medial iliac bone fracture with associated intramuscular hemorrhage. Orthopedics on board: Conservative management. Mobilize as tolerated. Weightbearing as tolerated. Walker for first 4 weeks. Follow-up in 1 month upon discharge. Continue pain management. PT/OT 06/23/2021 Tylenol 650 mg 3 times daily scheduled started pain better controlled today Continue PT and OT evaluation Will need to transition to rehab branch office manager on board #. MSSA Bacteremia Admitting blood culture positive for gram-positive cocci within 24 hours, source unknown Started 06/15 Zosyn, added vancomycin --> changed to nafcillin 06/18 after C/S out. Patient afebrile, WBC trending down f/u repeat Bl Cx, d/w cardio for possible Echo, ID consulted, await recs. Echo: No note of vegetation, EF 55%, grossly normal valvular structures Bld cx 06/15: 1 out of 2 bottles MSSA 06/17: no growth so far Afebrile ID consulted, recommend to transition to Cefazolin 2g IV q8h, until Nov 7 #. Mild hyponatremia Patient has chronic hyponatremia with baseline around 130-131, likely secondary to decreased solute intake and increase alcohol intake Admitting sodium level 129 Resolved to baseline #. Alcohol abuse Six beers a day AWSS protocol -- no signs of overt alcohol withdrawal #. Tobacco abuse 1 packs a day Nicotine patch #. Chronic medical conditions: Depression/GERD/HLD/COPD/DM type II/CAD/h/o CVA/h/o carotid stenosis Resume home medications #. Diabetes type 2 A1c 5.8 On sliding scale DVT prophylaxis: SCDs, pelvic fracture associated with extraperitoneal and intramuscular hemorrhage, no chemoprophylaxis. Follow daily H&H. Disposition: PT/OT -recommend rehab plan of care discussed with patient in detail and at length all questions answered he is understanding, agreeable, comfortable with the plan of care Admission and Anticipated Discharge Date Admission Date: June 15, 2021 Subjective Follow-up for recurrent syncope, etc. Seen resting in bed, comfortable, not in distress States he feels fine overall Less dizzy day by day Ambulates to the bathroom with no problems Pelvic fracture pain well controlled Requesting for sleeping aid at night No other new symptoms Review of Systems Review of Systems: all noted and negative except for above Physical Exam Physical Exam: General- oriented x 3, not in distress, speaks in sentences with no effort or accessory muscle use Eyes- anicteric Neck- no JVD Lungs- clear BS, no rales, no wheezing bilaterally Heart- normal rate, regular rhythm; no murmurs Abdomen- normal bowel sounds, nondistended, soft, no tenderness in all quadrants Extremities- no pretibial edema, no calf tenderness Neuro- alert, oriented x 3; no new gross focal neurologic deficits Skin- warm & dry Results & Data Results & Data ([facility]) Vital Signs (Past 12 Hours) Vital Signs Temp Pulse Pulse Resp BP Pulse Ox 06/23/21 15:23 36.7 C 61 18 123/75 97 06/23/21 15:05 56 L 06/23/21 11:53 37.1 C 67 18 134/74 97 06/23/21 07:45 65 06/23/21 07:17 36.7 C 67 18 150/79 H 98 all noted and reviewed including below (1) Closed fracture of left inferior pubic ramus Encounter type: initial encounter Qualified Code(s): S32.592A - Other specified fracture of left pubis, initial encounter for closed fracture (2) Closed fracture of superior ramus of left pubis Encounter type: initial encounter Qualified Code(s): S32.512A - Fracture of superior rim of left pubis, initial encounter for closed fracture (3) Closed fracture of right superior pubic ramus Encounter type: initial encounter Qualified Code(s): S32.511A - Fracture of superior rim of right pubis, initial encounter for closed fracture (4) Closed fracture of right inferior pubic ramus Encounter type: initial encounter Qualified Code(s): S32.591A - Other specified fracture of right pubis, initial encounter for closed fracture
[2021-06-23] MEDS: DULoxetine HCL 60 MG CAP PO SCH (19:53)
[2021-06-23] MEDS: levETIRAcetam 250 MG TAB PO SCH (19:53)
[2021-06-24] MEDS: diphenhydrAMINE Capsule 25 MG CAP PO PRN ×2 (00:57→22:18)
[2021-06-24] MEDS: ZOLPIDEM TARTRATE 5 MG TAB PO PRN ×2 (00:57→22:18)
[2021-06-24] MEDS: ceFAZolin 2000MG 2,000 MG/15 ML SYR IV SCH ×3 (00:59→17:00)
[2021-06-24] MEDS: HYDROCODONE/ACETAMOPHEN 5/325MG TAB PO PRN ×3 (03:28→16:58)
[2021-06-24] MEDS: INSULIN ASPART 100 UNITS/ML 3 ML PEN SC SCH ×4 (08:34→20:12)
[2021-06-24] MEDS: NICOTINE 21 MG/24 HR TDSY TD SCH (08:36)
[2021-06-24] MEDS: INSULIN GLARGINE SOLOSTAR 100 UNITS/ML 3 ML PEN SC SCH ×2 (08:36→20:30)
[2021-06-24] MEDS: METOPROLOL TARTRATE 25 MG TAB PO SCH ×2 (08:38→20:08)
[2021-06-24] MEDS: ACETAMINOPHEN 325 MG TAB PO SCH ×3 (08:38→20:08)
[2021-06-24] MEDS: CHOLECALCIFEROL 1,000 UNITS 25 MCG TAB PO SCH (08:38)
[2021-06-24] MEDS: FOLIC ACID 400 MCG TAB PO SCH (08:38)
[2021-06-24] MEDS: THIAMINE HCL 100 MG TAB PO SCH (08:38)
[2021-06-24] MEDS: ISOSORBIDE MONO EXTENDED REL 60 MG TABCR PO SCH (08:38)
[2021-06-24] MEDS: TAMSULOSIN HCL 0.4 MG CAP PO SCH (08:38)
--- NOTE | 2021-06-24 18:16 | Hospitalist Progress Note ---
Date of Service June 24, 2021 Assessment & Plan (1) Recurrent syncope: (2) Closed fracture of right iliac wing: (3) Closed fracture of left inferior pubic ramus: (4) Closed fracture of superior ramus of left pubis: (5) Closed fracture of right superior pubic ramus: (6) Closed fracture of right inferior pubic ramus: (7) Bacteremia: Plan: per Dr. 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 Pt denied preceding nausea, sweating, palpitation. Per , patient might have been unconscious anywhere between 30 min to 60 min and he was disoriented when found by his son; no bowel or bladder incontinence. Of note, patient is current smoker 1 PPD and drinker 5- 6 beers/d (since teenage). #. Recurrent syncope, likely from Orthostatic Hypotension either from carotid artery disease or peripheral neuropathy and autonomic dysfunction Possible Seizure Prior 3 events of syncope in the past 13 months; seen by neurology and cardiology in the past. In the last admission, his beta-radha was decreased due to concern of orthostasis and bradycardia. Patient had been advised to stop smoking tobacco and drinking alcohol, patient continues to use both of them. Admitting CT head with no acute finding, redemonstration of a colloid cyst. Admitting EKG: NSR Neurology and cardiology consulted Cardiology thinks the syncopal episodes are connected to alcohol abuse, agrees with orthostatic blood pressure measurement. Neurology: Repeat MRI, EEG (no seizure focus or spikes), ambulatory EEG -72 hours as an outpatient, empiric treatment with anticonvulsant --> started on Keppra 250mg hs x 1 wk, then bid x1 week f/b 250 mg QAM and 500 mg QHS f/b 500 mg BID. Hold cyclobenzaprine Orthostatic vitals: positive. Slow change in position (sleep to sitting, sitting to standing) to avoid chances of orthostasis and fall, pt on amlod and tamsulosin; will hold amlod for now, await more input from cardio for cardiovascular meds adjustment. Fall precaution, continue to monitor June 24, 2021 Symptoms seems to be improving since amlodipine was discontinued Still had orthostatic hypotension this afternoon with his vital signs, was lightheaded, but no symptoms when ambulating [place] hoses ordered monitor Orthostatic VS Math And Science Instructor on board, discussed with Dr. Brito RCA dissection was on 2016, at this time, BP is ok to be a little elevated to prevent hypotension and syncope As needed hydralazine ordered monitor BP -- systolic BP in the 120s dizziness improving daily Keppra 250mg HS started, then uptitrate per Neuro recommendations Tolerating well continue PT/OT #. 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 Patient is a chronic alcoholic and tobacco abuser which will contribute to his increased chances of fracture. Admitting CTAP: Displaced pelvic rami fractures with associated extraperitoneal hemorrhage. Nondisplaced pubic ring fractures. Nondisplaced right sacral ala fracture. Nondisplaced right medial iliac bone fracture with associated intramuscular hemorrhage. Orthopedics on board: Conservative management. Mobilize as tolerated. Weightbearing as tolerated. Walker for first 4 weeks. Follow-up in 1 month upon discharge. Continue pain management. PT/OT June 24, 2021 Tylenol 650 mg 3 times daily scheduled started Pain well controlled Continue PT and OT evaluation Will need to transition to rehab car inspection and repair manager on board #. MSSA Bacteremia Admitting blood culture positive for gram-positive cocci within 24 hours, source unknown Started 06/15 Zosyn, added vancomycin --> changed to nafcillin 06/18 after C/S out. Patient afebrile, WBC trending down f/u repeat Bl Cx, d/w cardio for possible Echo, ID consulted, await recs. Echo: No note of vegetation, EF 55%, grossly normal valvular structures Bld cx 06/15: 1 out of 2 bottles MSSA 06/17: no growth so far Afebrile ID consulted, recommend to transition to Cefazolin 2g IV q8h, until Jun 30 Ultrasound-guided IV access placed today June 24, 2021 #. Mild hyponatremia Patient has chronic hyponatremia with baseline around 130-131, likely secondary to decreased solute intake and increase alcohol intake Admitting sodium level 129 Resolved to baseline #. Alcohol abuse Six beers a day AWSS protocol -- no signs of overt alcohol withdrawal #. Tobacco abuse 1 packs a day Nicotine patch #. Chronic medical conditions: Depression/GERD/HLD/COPD/DM type II/CAD/h/o CVA/h/o carotid stenosis Resume home medications #. Diabetes type 2 A1c 5.8 On sliding scale DVT prophylaxis: SCDs, pelvic fracture associated with extraperitoneal and intramuscular hemorrhage, no chemoprophylaxis. Follow daily H&H. Disposition: PT/OT -recommend rehab plan of care discussed with patient in detail and at length all questions answered he is understanding, agreeable, comfortable with the plan of care Admission and Anticipated Discharge Date Admission Date: June 15, 2021 Subjective Follow-up for recurrent syncope, pelvic fractures, etc. Seen resting in bed, comfortable, not in distress Sleeping but easily awakened States he feels fine overall today Dizziness continues to improve No chest pain, palpitations, dyspnea Pelvic pain also improving No other symptoms Review of Systems Review of Systems: all noted and negative except for above Physical Exam Physical Exam: General- oriented x 3, not in distress, speaks in sentences with no effort or accessory muscle use Eyes- anicteric Neck- no JVD Lungs- clear BS bilaterally with no crackles or wheezing, good air entry bilaterally Heart- normal rate, regular rhythm; no murmurs Abdomen- normal bowel sounds, nondistended, soft, nontender Extremities- no pretibial edema, no calf tenderness Neuro- alert, oriented x 3; no new gross focal neurologic deficits Skin- warm & dry Results & Data Results & Data ([facility]) Vital Signs (Past 12 Hours) Vital Signs Temp Pulse Pulse Resp BP Pulse Ox 06/24/21 16:21 36.7 C 59 L 16 102/65 96 06/24/21 15:01 56 L 06/24/21 12:05 36.8 C 58 L 20 121/67 96 06/24/21 08:00 36.5 C 74 16 149/69 H 98 06/24/21 07:38 60 all noted and reviewed including below (1) Closed fracture of left inferior pubic ramus Encounter type: initial encounter Qualified Code(s): S32.592A - Other specified fracture of left pubis, initial encounter for closed fracture (2) Closed fracture of superior ramus of left pubis Encounter type: initial encounter Qualified Code(s): S32.512A - Fracture of superior rim of left pubis, initial encounter for closed fracture (3) Closed fracture of right superior pubic ramus Encounter type: initial encounter Qualified Code(s): S32.511A - Fracture of superior rim of right pubis, initial encounter for closed fracture (4) Closed fracture of right inferior pubic ramus Encounter type: initial encounter Qualified Code(s): S32.591A - Other specified fracture of right pubis, initial encounter for closed fracture
--- NOTE | 2021-06-24 19:15 | Cardiology Progress Note ---
Date of Service June 24, 2021 Assessment & Plan (1) Orthostatic hypotension: (2) Syncope: Plan: Vital signs are stable on his current regimen. (3) Bacteremia: Plan: 1 of 2 blood cultures on 06/15 yielded staph aureus, no growth on repeat cultures. Echocardiogram without obvious vegetation. Transition to oral antibiotic when appropriate. Admission and Anticipated Discharge Date Admission Date: June 15, 2021 Subjective Patient seen in follow-up. He states he had a good day today, he walked in the hallway without perceived symptoms. Heart rates have been stable for the most part in the 60s at rest.Highest blood pressure recorded today was 156/79 and lowest blood pressure was 102/65. Physical Exam Physical Exam: Temp Pulse Resp BP Pulse Ox 36.7 C 59 L 16 102/65 96 06/24/21 16:21 06/24/21 16:21 06/24/21 16:21 06/24/21 16:21 06/24/21 16:21 Constitutional: WD/WN, vitals as above Respiratory: normal respiratory effort, lungs clear to auscultation Cardiovascular: RRR, no murmur, no edema Neurologic: PERRL, EOMI, accommodation nl, no face palsy, no dysarthria Results & Data ([facility]) Vital Signs (Past 12 Hours) Vital Signs Temp Pulse Pulse Resp BP Pulse Ox 06/24/21 16:21 36.7 C 59 L 16 102/65 96 06/24/21 15:01 56 L 06/24/21 12:05 36.8 C 58 L 20 121/67 96 06/24/21 08:00 36.5 C 74 16 149/69 H 98 06/24/21 07:38 60 (1) Syncope Syncope type: unspecified Qualified Code(s): R55 - Syncope and collapse
[2021-06-24] MEDS: DULoxetine HCL 60 MG CAP PO SCH (20:08)
[2021-06-24] MEDS: levETIRAcetam 250 MG TAB PO SCH (20:08)
[2021-06-25] MEDS: HYDROCODONE/ACETAMOPHEN 5/325MG TAB PO PRN ×3 (01:46→17:59)
[2021-06-25] MEDS: ceFAZolin 2000MG 2,000 MG/15 ML SYR IV SCH ×3 (01:47→18:07)
[2021-06-25] MEDS: METOPROLOL TARTRATE 25 MG TAB PO SCH ×2 (08:01→22:07)
[2021-06-25] MEDS: THIAMINE HCL 100 MG TAB PO SCH (08:02)
[2021-06-25] MEDS: ACETAMINOPHEN 325 MG TAB PO SCH ×3 (08:02→22:07)
[2021-06-25] MEDS: FOLIC ACID 400 MCG TAB PO SCH (08:02)
[2021-06-25] MEDS: CHOLECALCIFEROL 1,000 UNITS 25 MCG TAB PO SCH (08:02)
[2021-06-25] MEDS: ISOSORBIDE MONO EXTENDED REL 60 MG TABCR PO SCH (08:03)
[2021-06-25] MEDS: NICOTINE 21 MG/24 HR TDSY TD SCH (08:03)
[2021-06-25] MEDS: TAMSULOSIN HCL 0.4 MG CAP PO SCH (08:03)
[2021-06-25] MEDS: INSULIN ASPART 100 UNITS/ML 3 ML PEN SC SCH ×4 (08:05→22:06)
[2021-06-25] MEDS: INSULIN GLARGINE SOLOSTAR 100 UNITS/ML 3 ML PEN SC SCH ×2 (08:05→22:07)
--- NOTE | 2021-06-25 16:43 | Hospitalist Progress Note ---
Date of Service June 25, 2021 Assessment & Plan (1) Recurrent syncope: (2) Closed fracture of right iliac wing: (3) Closed fracture of left inferior pubic ramus: (4) Closed fracture of superior ramus of left pubis: (5) Closed fracture of right superior pubic ramus: (6) Closed fracture of right inferior pubic ramus: (7) Bacteremia: Plan: per Dr. 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 Pt denied preceding nausea, sweating, palpitation. Per , patient might have been unconscious anywhere between 30 min to 60 min and he was disoriented when found by his son; no bowel or bladder incontinence. Of note, patient is current smoker 1 PPD and drinker 5- 6 beers/d (since teenage). #. Recurrent syncope, likely from Orthostatic Hypotension either from carotid artery disease or peripheral neuropathy and autonomic dysfunction Possible Seizure Prior 3 events of syncope in the past 13 months; seen by neurology and cardiology in the past. In the last admission, his beta-radha was decreased due to concern of orthostasis and bradycardia. Patient had been advised to stop smoking tobacco and drinking alcohol, patient continues to use both of them. Admitting CT head with no acute finding, redemonstration of a colloid cyst. Admitting EKG: NSR Neurology and cardiology consulted Cardiology thinks the syncopal episodes are connected to alcohol abuse, agrees with orthostatic blood pressure measurement. Neurology: Repeat MRI, EEG (no seizure focus or spikes), ambulatory EEG -72 hours as an outpatient, empiric treatment with anticonvulsant --> started on Keppra 250mg hs x 1 wk, then bid x1 week f/b 250 mg QAM and 500 mg QHS f/b 500 mg BID. Hold cyclobenzaprine Orthostatic vitals: positive. Slow change in position (sleep to sitting, sitting to standing) to avoid chances of orthostasis and fall, pt on amlod and tamsulosin; will hold amlod for now, await more input from cardio for cardiovascular meds adjustment. Fall precaution, continue to monitor 06/25/2021 Dizziness much better since amlodipine started, continues to improve daily, ambulating with no problems now [place] ordered monitor Orthostatic VS Interstate Bus Driver on board, discussed with Dr. Brito RCA dissection was on 2017, at this time, BP is ok to be a little elevated to prevent hypotension and syncope As needed hydralazine ordered monitor BP -- systolic BP in the 130s dizziness improving daily Keppra 250mg HS started, then uptitrate per Neuro recommendations Tolerating well continue PT/OT #. 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 Patient is a chronic alcoholic and tobacco abuser which will contribute to his increased chances of fracture. Admitting CTAP: Displaced pelvic rami fractures with associated extraperitoneal hemorrhage. Nondisplaced pubic ring fractures. Nondisplaced right sacral ala fracture. Nondisplaced right medial iliac bone fracture with associated intramuscular hemorrhage. Orthopedics on board: Conservative management. Mobilize as tolerated. Weightbearing as tolerated. Walker for first 4 weeks. Follow-up in 1 month upon discharge. Continue pain management. PT/OT June 25, 2021. Tylenol 650 mg 3 times daily scheduled Pain well controlled Continue PT and OT evaluation Will need to transition to rehab nurse healthcare manager on board #. MSSA Bacteremia Admitting blood culture positive for gram-positive cocci within 24 hours, source unknown Started 06/15 Zosyn, added vancomycin --> changed to nafcillin 06/18 after C/S out. Patient afebrile, WBC trending down f/u repeat Bl Cx, d/w cardio for possible Echo, ID consulted, await recs. Echo: No note of vegetation, EF 55%, grossly normal valvular structures Bld cx 06/15: 1 out of 2 bottles MSSA 06/17: no growth so far Afebrile ID consulted, recommend to transition to Cefazolin 2g IV q8h, until Jun 30 Ultrasound-guided IV access placed June 24, 2021 Tolerating antibiotics well #. Mild hyponatremia Patient has chronic hyponatremia with baseline around 130-131, likely secondary to decreased solute intake and increase alcohol intake Admitting sodium level 129 Resolved to baseline #. Alcohol abuse Six beers a day AWSS protocol -- no signs of overt alcohol withdrawal #. Tobacco abuse 1 packs a day Nicotine patch #. Chronic medical conditions: Depression/GERD/HLD/COPD/DM type II/CAD/h/o CVA/h/o carotid stenosis Resume home medications #. Diabetes type 2 A1c 5.8 On sliding scale DVT prophylaxis: SCDs, pelvic fracture associated with extraperitoneal and intramuscular hemorrhage, no chemoprophylaxis. Follow daily H&H. Disposition: PT/OT -recommend rehab Insurance denied rehab [id number] performed, approved for long term facility Case management on board plan of care discussed with patient in detail and at length all questions answered he is understanding, agreeable, comfortable with the plan of care Admission and Anticipated Discharge Date Admission Date: June 15, 2021 Subjective Follow-up for recurrent syncope, etc. Seen resting in bed, comfortable, not in distress Denies shortness of breath, palpitations Has mild dizziness when getting up from bed, but otherwise no dizziness when ambulating Pelvic pain well controlled right greater than left No other symptoms Review of Systems Review of Systems: all noted and negative except for above Physical Exam Physical Exam: General- oriented x 3, not in distress, speaks in sentences with no effort or accessory muscle use Eyes- anicteric Neck- no JVD Lungs- clear BS bilaterally, no crackles or wheezing appreciated Heart- normal rate, regular rhythm; no murmurs Abdomen- normal bowel sounds, nondistended, soft, nontender Extremities- no pretibial edema, no calf tenderness Neuro- alert, oriented x 3; no gross focal neurologic deficits Skin- warm & dry Results & Data Results & Data ([facility]) Vital Signs (Past 12 Hours) Vital Signs Temp Pulse Pulse Resp BP BP Pulse Ox 06/25/21 15:30 36.6 C 54 L 20 137/69 97 06/25/21 13:16 37.0 C 54 L 136/70 97 06/25/21 11:46 36.7 C 54 L 16 115/62 96 06/25/21 08:00 62 06/25/21 07:31 36.6 C 60 19 163/76 H 96 06/25/21 05:34 57 L all noted and reviewed including below (1) Closed fracture of left inferior pubic ramus Encounter type: initial encounter Qualified Code(s): S32.592A - Other specified fracture of left pubis, initial encounter for closed fracture (2) Closed fracture of superior ramus of left pubis Encounter type: initial encounter Qualified Code(s): S32.512A - Fracture of superior rim of left pubis, initial encounter for closed fracture (3) Closed fracture of right superior pubic ramus Encounter type: initial encounter Qualified Code(s): S32.511A - Fracture of superior rim of right pubis, initial encounter for closed fracture (4) Closed fracture of right inferior pubic ramus Encounter type: initial encounter Qualified Code(s): S32.591A - Other specified fracture of right pubis, initial encounter for closed fracture
[2021-06-25] MEDS: DULoxetine HCL 60 MG CAP PO SCH (22:07)
[2021-06-25] MEDS: levETIRAcetam 250 MG TAB PO SCH (22:07)
[2021-06-25] MEDS: diphenhydrAMINE Capsule 25 MG CAP PO PRN (22:10)
[2021-06-26] MEDS: ceFAZolin 2000MG 2,000 MG/15 ML SYR IV SCH ×3 (04:55→17:17)
[2021-06-26] MEDS: THIAMINE HCL 100 MG TAB PO SCH (07:58)
[2021-06-26] MEDS: NICOTINE 21 MG/24 HR TDSY TD SCH (07:58)
[2021-06-26] MEDS: METOPROLOL TARTRATE 25 MG TAB PO SCH (07:58)
[2021-06-26] MEDS: FOLIC ACID 400 MCG TAB PO SCH (07:59)
[2021-06-26] MEDS: ISOSORBIDE MONO EXTENDED REL 60 MG TABCR PO SCH (07:59)
[2021-06-26] MEDS: TAMSULOSIN HCL 0.4 MG CAP PO SCH (07:59)
[2021-06-26] MEDS: CHOLECALCIFEROL 1,000 UNITS 25 MCG TAB PO SCH (07:59)
[2021-06-26] MEDS: ACETAMINOPHEN 325 MG TAB PO SCH ×2 (07:59→14:42)
[2021-06-26] MEDS: HYDROCODONE/ACETAMOPHEN 5/325MG TAB PO PRN ×2 (08:04→16:41)
[2021-06-26] MEDS: INSULIN ASPART 100 UNITS/ML 3 ML PEN SC SCH ×3 (08:06→17:13)
[2021-06-26] MEDS: INSULIN GLARGINE SOLOSTAR 100 UNITS/ML 3 ML PEN SC SCH (08:07)
[2021-06-26 15:35] VITALS: TEMP 98.8; O2SAT 97
[2021-06-26] MEDS ORDERED: cefTRIAXone SODIUM 2,000 MG in DEXTROSE 5% 50 ML IV ONE (17:23)
--- NOTE | 2021-06-26 18:01 | Discharge Summary ---
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 Pt was apparently in his usual state of health until around 12 pm today when he lost consciousness and fell. He was down for 30-60 minutes although exact duration is unknown - his son found him trying to get up and into a chair. He thinks that he landed on his buttocks when he fell - noted immediate pain in right hip area after fall. He has had at least three prior admissions for syncope - May 2020, Sep 2020 (at [facility]), and January 2021. No clear etiology has been determined. Zio was negative in 11/11. It was thought during his last admission that he may be becoming orthostatic and bradycardic due to his beta radha so the metoprolol dose was decreased. He has chronic right-sided weakness due to prior CVA. He has a history of a right carotid stent, which was patent on most recent vascular evaluation earlier this year. He has a known left carotid occlusion and is on dual anti-platelet therapy. He continues to smoke 1 PPD and drink 5-6 beers per day. Admission Exam Per Admitting Provider GENERAL: Alert and oriented x3. in mild distress, on RA. HEENT: No pallor, no icterus. Pupils equal, round and reactive to light. Oral mucosa moist. NECK: No JVD, no neck masses. HEART: S1 and S2 heard. Regular rate and rhythm. No murmur, no gallop. RESPIRATORY SYSTEM: Normal AP diameter. No accessory muscle use. No wheezing, no crackles. ABDOMEN: Soft, bowel sounds present, nontender, no distention. CENTRAL NERVOUS SYSTEM: No facial droop. Speech is clear. Obeys simple commands. Moves extremities. EXTREMITIES: No edema, no erythema seen. Rt sided weakness noted but no p aresis. extreme pain at hip with movement of BLE. Decreased ROM of BLE Principal Diagnosis (1) Recurrent syncope: (2) Leukocytosis: (3) bacteremia- MSSA (3) Hyponatremia: (4) Closed fracture of right iliac wing: (5) Closed fracture of left inferior pubic ramus: (6) Closed fracture of superior ramus of left pubis: (7) Closed fracture of right superior pubic ramus: Discharge Exam GENERAL: Alert and oriented x3. in mild distress, on RA. HEENT: No pallor, no icterus. Pupils equal, round and reactive to light. Oral mucosa moist. NECK: No JVD, no neck masses. HEART: S1 and S2 heard. Regular rate and rhythm. No murmur, no gallop. RESPIRATORY SYSTEM: Normal AP diameter. No accessory muscle use. No wheezing, no crackles. ABDOMEN: Soft, bowel sounds present, nontender, no distention. CENTRAL NERVOUS SYSTEM: No facial droop. Speech is clear. Obeys simple commands. Moves extremities. EXTREMITIES: No edema, no erythema seen. Rt sided weakness noted but no paresis. extreme pain at hip with movement of BLE. Decreased ROM of BLE Discharge Data Allergies Allergy/AdvReac Type Severity Reaction Status Date / Time Cipro Allergy Severe hives Verified 04/22/18 16:34 ciprofloxacin Allergy Severe hives Verified 06/15/21 15:26 simvastatin AdvReac Intermediate MUSCLE Verified 06/15/21 15:26 PAIN/WEAKNESS Atbafix-KWH-NjZ Reductase AdvReac Intermediate MUSCLE Unverified 06/15/21 15:26 Inhibitor PAIN/WEAKNESS [Ogycuip-Ejy-Kar Reductase Inhibitor] Consultations 06/15/21 16:09 Consult Orthopedic Surgery Stat 06/15/21 16:23 ED Decision to Admit Stat 06/15/21 20:04 Consult Cardiology Routine Consult Neurology Routine 06/18/21 09:03 Consult Infectious Diseases Routine Ordered Studies 06/15/21 13:15 CT angio abdomen pelvis w con Stat CT angio chest dissec wo/w con Stat CT head/brain wo con Stat 06/16/21 11:30 CT cervical spine wo con Routine CT lumbar spine wo con Routine CT thoracic spine wo con Routine MR brain wo/w con Routine 06/18/21 17:10 MR lumbar spine wo con Routine MR lumbar spine wo con CLINICAL HISTORY: 65 years-old Male with fall, back pain, bl le weakness. Acute low back pain, status post fall. Acute weakness of the bilateral lower extremities. COMPARISON: CT of the lumbar spine 06/16/2021, MRI of the lumbar spine 10/11/2015. TECHNIQUE: Multiplanar, multi sequence MRI of the lumbar spine was performed without intravenous contrast. FINDINGS: The progressive die maker localizer images demonstrate no gross extraspinal abnormality. There is artifact from bilateral hip total joint arthroplasties resulting incomplete fat-saturation. Chronic L2 compression deformity with kyphoplasty. 4 mm retropulsion is unchanged. No acute fracture, subluxation or endplate erosion. Mild edema along the anterior superior L3 endplate is likely on a degenerative basis. Conus medullaris terminates at L1-L2. Signal within the imaged thoracic spinal cord appears normal. T12-L1: Mild facet arthrosis. No central canal or neural foraminal stenosis. L1-L2: Moderate intervertebral disc space narrowing. Chronic retropulsion of the L2 segment of 4 mm. Ligamentum flavum thickening with mild facet arthrosis. Mild central canal stenosis with AP dimension of the thecal sac measuring 9 mm is unchanged. The right neural foramen is patent. Mild left neural foraminal narrowing. L2-L3: Mild facet arthrosis. No central canal or neural foraminal stenosis. L3-L4: Mild facet arthrosis with small posterior annular disc bulge. The central canal is patent. Mild bilateral neural foraminal narrowing has slightly progressed from comparison. L4-L5: Mild intervertebral disc space narrowing with spondylitic spurring and small posterior disc osteophyte complex. There is decreased size of the posterior disc bulge from comparison study. Ligamentum flavum thickening with moderate facet arthrosis. The central canal is patent. Moderate left with moderate to severe right neural foraminal narrowing, progressed from comparison. L5-S1: Disc desiccation with mild posterior intervertebral disc space narrowing. Spondylitic spurring with small central/right paracentral disc protrusion and annular fissure. The central canal and neural foramina appear patent. IMPRESSION: 1. No acute fracture of the lumbar spine. 2. Chronic L2 compression deformity with kyphoplasty and mild retrolisthesis resulting in mild central canal stenosis. 3. Discogenic degenerative changes with facet arthrosis as above. 4. Progressively worsened neural foraminal narrowing at L4-L5 is moderate on the left and moderate to severe on the right. ACT 112: Negative or not required by law. The above report was generated using voice recognition software. It may contain grammatical, syntax or spelling errors. Dictated: 06/19/2021 9:53 AM Transcribed: 06/19/2021 10:37 AM Stephanie [id number] [facility] Electronically signed by: Cristobal Morales M.D. 06/19/2021 11:35 AM Dictated:06/19/21 0953 Transcribed: 06/19/[address] thoracic spine wo con CLINICAL HISTORY: unwtnessed fall with loc, back pain, mult fx TECHNIQUE: Multidetector row helical CT of the thoracic spine was performed without administration of intravenous contrast. Coronal and sagittal reformations were obtained. Automated dose lowering techniques and/or adjustment according to patient size were utilized for this exam. Comparison: None available at the time of this dictation. FINDINGS: No acute fractures are identified. Degenerative changes are noted in the visualized spine. Vertebral body alignment is within normal limits. Surrounding soft tissues are unremarkable. IMPRESSION: No evidence of acute fracture or traumatic subluxation. ACT 112: Negative or not required by law. Electronically signed by: Jimmy Qureshi M.D. 06/16/2021 5:32 PM Dictated:06/16/211730 Transcribed: 06/16/211730 CT lumbar spine wo con CLINICAL HISTORY: fall with back pain and urinary retention. mult fx TECHNIQUE: Multidetector row helical CT of the lumbar spine was performed without administration of intravenous contrast. Coronal and sagittal reformations were obtained. Automated dose lowering techniques and/or adjustment according to patient size were utilized for this exam. Comparison: Comparison is made to CT lumbar spine 06/05/2020 FINDINGS: For counting purposes, the last complete intervertebral disc space is considered L5-S1. No acute fractures are identified. Redemonstration of vertebral plana with cement arthroplasty at L2. Vertebral body alignment is within normal limits. Surrounding soft tissues are unremarkable. IMPRESSION: Degenerative changes and old compression fracture of L2 without evidence of acute fracture. Please see CT abdomen pelvis for detailed findings of pelvic ring fractures. ACT 112: Negative or not required by law. Electronically signed by: Jimmy Qureshi M.D. 06/16/2021 5:35 PM Dictated:06/16/211731 Transcribed: 06/16/211731 CT cervical spine wo con CLINICAL HISTORY: loc mult fx back pain pelvic fractures are seen on prior exam. TECHNIQUE: Multidetector row helical CT of the cervical spine was performed without administration of intravenous contrast. Coronal and sagittal reformations were obtained. Automated dose lowering techniques and/or adjustment according to patient size were utilized for this exam. Comparison: None available at the time of this dictation. FINDINGS: No acute fractures or subluxations are identified. The alignment is normal. The vertebral body heights and disk spaces are well maintained. Partial visualization of a right carotid stent. IMPRESSION: No evidence of acute fracture in cervical spine. ACT 112: Negative or not required by law. Electronically signed by: Jimmy Qureshi M.D. 06/16/2021 5:29 PM Dictated:06/16/211724 Transcribed: 06/16/211724 MR brain wo/w con CLINICAL HISTORY: loc, poss sz TECHNIQUE: Multiplanar and multisequence MR images of the brain were obtained prior to and following administration of gadolinium contrast. Comparison: Comparison is made to MRI brain 06/06/2020 FINDINGS: No abnormal restricted diffusion is identified. Foci of T2 and FLAIR hyperintensity are noted in the paraventricular areas consistent with chronic small vessel ischemic disease. Focal encephalomalacia is in the left frontal region. No edema is seen in the hippocampus bilaterally. Ex vacuo ventriculomegaly and sulcal enlargement is noted compatible with diffuse encephalomalacia. There is no evidence of acute intraparenchymal hemorrhage. No extra axial fluid collections are seen. There are no masses, mass effect, or midline shift. No abnormal enhancement is seen. The corpus callosum, pituitary gland, and cerebellar tonsils appear grossly unremarkable. Flow voids of the major intracranial arterial vessels are identified. The imaged portions of the paranasal sinuses, mastoid air cells, and orbits are unremarkable. IMPRESSION: No acute abnormalities. No edema in the hippocampus bilaterally. ACT 112: Negative or not required by law. Electronically signed by: Jimmy Qureshi M.D. 06/16/2021 5:57 PM Dictated:06/16/211755 Transcribed: 06/16/211755 XR knee RT 3V CLINICAL HISTORY: Right knee pain following injury. COMPARISON: Right femur radiographs April 18, 2018. FINDINGS: Alignment of the right knee is anatomic. There is no joint effusion. There is no acute fracture. Mild to moderate patellofemoral compartment os teoarthritis is noted. IMPRESSION: No acute fracture or joint effusion of the right knee. ACT 112: Negative or not required by law. Electronically signed by: Sajan Ferrara M.D. 06/15/2021 2:48 PM Dictated:06/15/211447 Transcribed: 06/15/211447 XR hip RT 2V w pelvis CLINICAL HISTORY: pain post fall COMPARISON: CTA of the abdomen and pelvis January 24, 2021. Pelvis radiograph April 18, 2018. FINDINGS: Note is made of contrast within the bladder from recent contrast- enhanced CT. Several bladder diverticula are incidentally noted. Alignment of the total bilateral hip arthroplasties is anatomic. There is no periprosthetic fracture. Note is made of an acute displaced fractures of the right superior and inferior pubic rami. Superior pubic rami fractures displaced 1.7 cm. Nondisplaced left pubic ring fractures are better depicted on prior CT. Fractures within the right iliac bone and right sacral ala are also better depicted on that exam. IMPRESSION: 1. Acute displaced right superior and inferior pubic rami fractures. 2. Acute minimally displaced left pubic ring fractures. 3. Right sacral ala and medial right iliac bone fractures which are better depicted on the CTA. 4. Anatomic alignment of total bilateral hip arthroplasties. No periprosthetic fracture. ACT 112: Negative or not required by law. Electronically signed by: Sajan Ferrara M.D. 06/15/2021 2:44 PM Dictated:06/15/211440 Transcribed: 06/15/211440 XR femur RT 2V routine CLINICAL HISTORY: pain COMPARISON: Right femur radiographs April 18, 2018. FINDINGS: Right pubic ring fractures are better depicted on the pelvis radiographs. Alignment of the total right hip arthroplasty is anatomic. There is no periprosthetic fracture. No right femoral fracture is present. There is no right knee joint effusion. IMPRESSION: 1. Intact total right hip arthroplasty. No periprosthetic fracture. 2. Acute right pubic ring fractures better depicted on the pelvis radiograph. ACT 112: Negative or not required by law. Electronically signed by: Sajan Ferrara M.D. 06/15/2021 2:48 PM Dictated:06/15/211443 Transcribed: 06/15/211443 CT OF THE HEAD WITHOUT CONTRAST CLINICAL HISTORY: Syncope. COMPARISON STUDY: Head CT and CTA of the head January 24, 2021. MRI of the brain June 06, 2020. TECHNIQUE: Helical axial images of the head were obtained without IV contrast. Automated exposure control was utilized for the study. A dose lowering technique was utilized adhering to the principles of ALARA. FINDINGS: No acute intracranial hemorrhage, midline shift or mass effect is present. Ventricular system is stable. 7 mm colloid cyst is similar to prior exams. Encephalomalacia within left frontal lobe is unchanged. There are no findings to suggest acute dural sinus thrombosis or acute territorial infarct. The appearance of the brain is unchanged. There is no calvarial fracture. There is ethmoid sinus mucosal thickening. IMPRESSION: 1. No acute intracranial findings. No change in appearance of the brain. Old left frontal lobe infarct. 2. Redemonstration of a colloid cyst. Stable ventricular system. ACT 112: Negative or not required by law. Electronically signed by: Sajan Ferrara M.D. 06/15/2021 1:57 PM Dictated:06/15/21 1349 Transcribed: 06/15/[address] ANGIOGRAPHY OF THE CHEST DISSECTION PROTOCOL CLINICAL HISTORY: Severe chest and back pain. Multiple syncopal episodes. COMPARISON STUDY: Chest CT January 24, 2021. TECHNIQUE: Before and following the IV administration of 116 mL of Optiray, h elical axial images of the chest were obtained. Maximal intensity projections and sagittal and coronal reformats were viewed on an independent 3D workstation. IV contrast was administered without complication. Automated exposure control was utilized for the study. A dose lowering technique was utilized adhering to the principles of ALARA. FINDINGS: The caliber of the thoracic aorta is normal. There is no thoracic aortic dissection or intramural hematoma. There is mild atherosclerotic plaque of the thoracic aorta. Mild cardiomegaly is noted. There is moderate coronary artery calcification. No pericardial effusion is present. No pneumothorax or pleural effusion is present. There is no consolidation to suggest pneumonia. A few small right middle lobe nodules are unchanged from earlier exams. These are benign given stability. Healing right clavicular fracture is noted. There numerous healing rib fractures. No acute fracture is identified within visualized portions of the bony thorax. There is no consolidation to suggest pneumonia. Central airways are patent. Abdomen and pelvis will be reported separately. IMPRESSION: 1. No thoracic aortic dissection. 2. No acute process within the chest. ACT 112: Negative or not required by law. Electronically signed by: Sajan Ferrara M.D. 06/15/2021 2:07 PM Dictated:06/15/21 1358 Transcribed: 06/15/[address] angio abdomen pelvis w con CLINICAL HISTORY: back pain, multiple syncope COMPARISON STUDY: CTA of the abdomen and pelvis January 24, 2021. TECHNIQUE: Helical axial images of the abdomen and pelvis were obtained during arterial phase following intravenous injection of 116 cc Optiray 320 IV. Sagittal coronal reconstructed reviewed as well as maximal intensity projections on an independent 3-D workstation. Automated exposure control was utilized for the study. A dose lowering technique was utilized adhering to the principles of ALARA. FINDINGS: Please note that the chest CT will be reported separately. This exam is compromised by motion artifact. There is no abdominal aortic dissection. There is extensive plaque of the abdominal aorta and branch vessels. Evaluation for stenosis is difficult given motion artifact. Arterial phase images of the liver, spleen, adrenal glands, kidneys and pancreas are unremarkable. Is no evidence for a bowel obstruction. The appendix is normal. Evaluation of the pelvis is compromised given streak artifact from bilateral hip arthroplasties as well as motion artifact. Bladder wall thickening is unchanged. Note is made of an acute displaced right inferior and superior pubic rami fractures. There is moderate associated extraperitoneal hemorrhage. No active extravasation is identified although sensitivity is diminished on this exam. Note is made of acute nondisplaced fractures of the left inferior and superior pubic rami. There is a nondisplaced right sacral ala fracture. In addition, there is an acute minimally displaced fracture of the medial right iliac bone. No proximal femoral fracture is identified on this exam. There is intramuscular hemorrhage within the right adductor muscles. There may be hemorrhage within the right iliacus muscle and the right lateral abdominal wall muscles. IMPRESSION: 1. No abdominal aortic dissection. 2. Acute displaced right inferior and superior pubic rami fractures. Moderate associated extraperitoneal hemorrhage. No active extravasation identified although sensitivity diminished on this exam given motion artifact and streak artifact from bilateral hip arthroplasties. 3. Acute nondisplaced left pubic ring fractures. Acute nondisplaced right sacral ala fracture. 4. Acute nondisplaced fracture of the medial right iliac bone with associated intramuscular hemorrhage within the right iliacus muscle. Possible hemorrhage within the right lateral abdominal wall musculature. ACT 112: Negative or not required by law. Electronically signed by: Sajan Ferrara M.D. 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 Pt denied preceding nausea, sweating, palpitation. Per , patient might have been unconscious anywhere between 30 min to 60 min and he was disoriented when found by his son; no bowel or bladder incontinence. Of note, patient is current smoker 1 PPD and drinker 5-6 beers/d (since teenage). #. Recurrent syncope, likely from Orthostatic Hypotension either from carotid artery disease or peripheral neuropathy and autonomic dysfunction Possible Seizure Prior 3 events of syncope in the past 13 months; seen by neurology and cardiology in the past. In the last admission, his beta-radha was decreased due to concern of orthostasis and bradycardia. Patient had been advised to stop smoking tobacco and drinking alcohol, patient continues to use both of them. Admitting CT head with no acute finding, redemonstration of a colloid cyst. Admitting EKG: NSR Neurology and cardiology consulted Cardiology thinks the syncopal episodes are connected to alcohol abuse, agrees with orthostatic blood pressure measurement. Neurology: Repeat MRI, EEG (no seizure focus or spikes), ambulatory EEG -72 hours as an outpatient, empiric treatment with anticonvulsant --> started on Keppra 250mg hs x 1 wk, then bid x1 week f/b 250 mg QAM and 500 mg QHS f/b 500 mg BID. Hold cyclobenzaprine Orthostatic vitals: positive. Slow change in position (sleep to sitting, sitting to standing) to avoid chances of orthostasis and fall, pt on amlod and tamsulosin; will hold amlod for now, await more input from cardio for cardiovascular meds adjustment. Fall precaution, continue to monitor Follow up with neurology in 4 to 6 weeks 06/25/2021 Dizziness much better since amlodipine started, continues to improve daily, ambulating with no problems now [place] ordered monitor Orthostatic VS Member Certification Manager on board, discussed with Dr. Brito RCA dissection was on 2016, at this time, BP is ok to be a little elevated to prevent hypotension and syncope As needed hydralazine ordered monitor BP -- systolic BP in the 130s dizziness improving daily Keppra 250mg HS started, then uptitrate per Neuro recommendations Tolerating well continue PT/OT #. 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 Patient is a chronic alcoholic and tobacco abuser which will contribute to his increased chances of fracture. Admitting CTAP: Displaced pelvic rami fractures with associated extraperitoneal hemorrhage. Nondisplaced pubic ring fractures. Nondisplaced right sacral ala fracture. Nondisplaced right medial iliac bone fracture with associated intramuscular hemorrhage. Orthopedics on board: Conservative management. Mobilize as tolerated. Weightbearing as tolerated. Walker for first 4 weeks. Follow-up in 1 month upon discharge. Continue pain management. PT/OT June 25, 2021. Tylenol 650 mg 3 times daily scheduled Pain well controlled Continue PT and OT evaluation Will need to transition to rehab operations manager on board #. MSSA Bacteremia Admitting blood culture positive for gram-positive cocci within 24 hours, source unknown Started 06/15 Zosyn, added vancomycin --> changed to nafcillin 06/18 after C/S out. Patient afebrile, WBC trending down f/u repeat Bl Cx, d/w cardio for possible Echo, ID consulted, await recs. Echo: No note of vegetation, EF 55%, grossly normal valvular structures Bld cx 06/15: 1 out of 2 bottles MSSA 06/17: no growth so far Afebrile ID consulted, recommend to transition to Cefazolin 2g IV q8h, until Jun 30 Ultrasound-guided IV access placed June 24, 2021 Tolerating antibiotics well Pt does not want to stay tonight operations manager was notified- Home health nurse and his supply will be deliver at 2pm tomorrow Discussed with patient if he leaves today that he will miss 2 doses of Cefazolin Discussed with patient about sign AMA can lead to antibiotic resistance formation ( that can lead to super bugs), worsening infection and sepsis, and even at bedside tried to talk to her to stay, pt said that no that he wants to leave today I spoke to Pharmacy to check what would be an alternative option where pt would not miss 2 doses of cefazolin if leaving AMA until his supply arrives tomorrow at home Pharmacy recommended to give Ceftriaxone for his next dose that will cover him for 24hrs until he gets his cefazolin at 2am management plan discussed with patient and that agreed since pt does not want to stay for another night Pt was advised if spike any fever to seek medical attention. #. Mild hyponatremia Patient has chronic hyponatremia with baseline around 130-131, likely secondary to decreased solute intake and increase alcohol intake Admitting sodium level 129 Resolved to baseline #. Alcohol abuse Six beers a day AWSS protocol -- no signs of overt alcohol withdrawal #. Tobacco abuse 1 packs a day Nicotine patch #. Chronic medical conditions: Depression/GERD/HLD/COPD/DM type II/CAD/h/o CVA/h/o carotid stenosis Resume home medications #. Diabetes type 2 A1c 5.8 On sliding scale DVT prophylaxis: SCDs, pelvic fracture associated with extraperitoneal and intramuscular hemorrhage, no chemoprophylaxis. Follow daily H&H. Disposition: PT/OT -recommend rehab Insurance denied rehab [id number] performed, approved for shelter facility Case management on board plan of care discussed with patient in detail and at length all questions answered he is understanding, agreeable, comfortable with the plan of care Total Time Total Time Spent Total Time Spent (In Minutes): 35 minutes Discharge Plan Discharge Items Patient Disposition: Home - Home Health Services Reason For Visit: CARDIAC ASSESSMENT Discharge Diagnosis: (1) Recurrent syncope: (2) Leukocytosis: (3) bacteremia- MSSA (3) Hyponatremia: (4) Closed fracture of right iliac wing: (5) Closed fracture of left inferior pubic ramus: (6) Closed fracture of superior ramus of left pubis: (7) Closed fracture of right superior pubic ramus: Activity: Resume your previous activity Non-emergency contact: Primary Care Provider Call non-emergency contact if: you have any medication questions and your temperature is above 101 Follow-up/Referrals: Terry Resendez MD [Primary Care Provider] - Jimmy Christensen PA-C [Outside Practitioners] - (Date & Time 07/04/2021 2:00 PM Provider Jimmy Christensen PA-C Department Urology, [facility] ) Diet: Carb Consistent or DM2 Addtl Attending Provider Instructions: Follow up with your primary care provider Dr. Resendez within 1 week (Please call to schedule for the appointment) Follow up with neurology in 4 to 6 weeks Follow up with orthopedic Complete the course of the antibiotic with cefazolin Fall precaution Counseling on alcohol cessation Check BMP in 1 week to monitor your electrolytes Continue Keppra 250 mg every 12 hours x 1 week then increase to 500 mg in the morning 250 mg at night x 1 week then increase to 500 mg every 12hours Continue weightbearing as tolerated and use the walker for first 4 weeks. Follow up with urology 07/04/2021 2:00 PM Provider Jimmy Christensen PA-C Department Urology, [facility] Pending Studies at Discharge: No Stand-Alone Forms: My [facility], Smoking Cessation Medications and DC Order Prescriptions: New cefazolin 1 gram recon soln 2 g IV Q8H 4 Days Qty: 12 RF: 0 levetiracetam [Keppra] 250 mg tablet 250 mg PO BID Qty: 60 RF: 0 Continued cholecalciferol (vitamin D3) 1,000 unit Tablet 1,000 unit PO QAM Qty: 0 RF: 0 clopidogrel 75 mg Tablet 75 mg PO QAM Qty: 0 RF: 0 duloxetine 60 mg Capsule,Delayed Release(Dr/Ec) 60 mg PO HS Qty: 0 RF: 0 cyclobenzaprine 10 mg Tablet 10 mg PO TID PRN (Reason: Muscle Spasm) Qty: 0 RF: 0 tamsulosin 0.4 mg Capsule 0.4 mg PO QAM Qty: 0 RF: 0 isosorbide mononitrate 60 mg Tablet Extended Release 24 Hr 60 mg PO QAM Qty: 0 RF: 0 nitroglycerin 0.4 mg Tablet, Sublingual 0.4 mg Sublingual DIRECTED PRN (Reason: Chest Pain) Qty: 0 RF: 0 folic acid 400 mcg Tablet 800 mcg PO QAM Qty: 0 RF: 0 thiamine HCl (vitamin B1) 100 mg Tablet 100 mg PO QAM Qty: 0 RF: 0 tramadol 50 mg Tablet 50 mg PO Q6H PRN (Reason: Pain) Qty: 0 RF: 0 metformin 500 mg tablet extended release 24 hr 500 mg PO QAM RF: 0 aspirin 81 mg Tablet,Delayed Release (Dr/Ec) 81 mg PO QAM RF: 0 acetaminophen 500 mg Tablet 1,000 mg PO Q6H PRN (Reason: Fever Or Pain) RF: 0 hydrocodone-acetaminophen 5-325 mg Tablet 1 tab PO TID PRN (Reason: Pain) RF: 0 ondansetron HCl 4 mg tablet 4 mg PO Q6H PRN (Reason: Nausea) RF: 0 metoprolol tartrate 25 mg tablet 25 mg PO BID RF: 0 Discontinued amlodipine 2.5 mg tablet 2.5 mg PO DAILY RF: 0 Discharge Orders: Discharge Order (Routine); Ordered 06/26/21 Ordered By: Marcio Polo Admission Data Admit Date/Time: 06/15/21 16:22 Attending Provider: Marcio Polo Admit Provider: Joe Sommer Primary Care Provider: Terry Resendez Other Providers: [facility] ; Sonu Resendiz ; Joe Sommer ; Clay Hernandez ; Elsie Capone ; Rui Bermudez ; Ivette Dickinson ; Craig Benavidez I. ; Luis Miguel Alvarado II ; Nathaly Armas ; Terry Bell ; Gorge Kulkarni ; Josh Tenorio ; [facility] Other Interventions: Discharge Summary Assessment (RN) Last Done: 06/26/21 18:10
[2021-06-26 18:11] VITALS: BP 114/66; PULSE 55
== END 2021-06-26 18:40 | disposition home health service (06) | DRG 543 ==
LOC: ED 13:24 → EDINP 16:16 → SUATTDRO 16:22 → EDINP 17:27 → 2S 23:20 → 2N 06-25 13:45

== ENCOUNTER 2023-07-09 12:24 | Observation (INO) ==
--- NOTE | 2023-07-09 12:33 | Emergency Department Note ---
Impression & Plan Chest pain ADMIT ED Provider Note HPI: History obtained from patient. The patient is a 67-year-old gentleman with history of coronary artery disease, who presents emergency department with chief complaint of a syncopal event and chest pain. Patient states that about an hour prior to arrival he was getting ready to chop some wood in his yard when he felt somewhat lightheaded. He felt as if he needed to have a bowel movement and therefore went to the bathroom in his house. Patient then passed out when he was attempting to have a bowel movement, when he awoke his was assisting him and he had some moderate substernal chest pain and therefore his contacted EMS. On arrival here to the ED, the patient is alert, states his chest pain is now resolved. He did take a nitroglycerin tablet prior to EMS arrival from home. ROS: - Per HPI Differential Diagnosis: Acute coronary syndrome, aortic dissection, orthostatic hypotension, vasovagal event with syncope, amongst other potential pathologies. *Outpatient medications and allergy history reviewed. 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 EKG per my review shows normal sinus rhythm without any evidence of ST elevation [place]. There is some very mild ST depressions noted in the inferior and lateral leads. Shows a mild leukocytosis of 11.02, hemoglobin is stable at 13.1, platelet count is 202, CMP shows mild hyponatremia 132, initial troponin was obtained and is elevated at 118. Chest x-ray per my interpretation does not show any evidence of acute disease. Patient was given aspirin in the ED. Upon review of the patient's chart, he did have coronary catheterization performed in 2017 at [facility] in [place], this resulted in balloon angioplasty at the RCA and there is mention in the patient's medical history/note that there was a tiny focal area of aortic dissection causing a portion of the procedure. Given this history, I did obtain CT angiography of the chest that does not show any evidence of any aortic dissection. I discussed the patient's presentation with on-call cardiology for [facility], Dr. Gagnon, who is in agreement for consultation and does recommend the patient be initiated on heparin drip given his elevation in troponin and cardiac history. This was therefore ordered. I discussed all of these findings and the plan for admission with the patient and his family, they are in agreement. Case was then discussed with the [facility] hospitalist service (Wendi Bowie CORPORATE TUTOR) and the patient was admitted in stable condition to the service of Dr. Burden Consultants/Discussions held with other healthcare providers: -Wendi Bowie, Hospitalist Service CORPORATE TUTOR -Dr. Gagnon, Cardiology Disposition discussion held by myself with: -Patient * CRITICAL CARE TIME: ( 46 ) minutes -Management of patient with acute chest pain in the setting of elevated troponin history of coronary artery disease requiring initiation of heparin drip, time spent at the bedside, interpretation of EKG and diagnostic studies, discussion with other physicians including cardiology, arrangement of admission. Diagnosis: 1. Chest pain, acute 2. Elevated high-sensitivity troponin level, acute 3. Syncope and collapse, acute 4. History of coronary artery disease 5. Hyponatremia, acute, mild Disposition: Admission Terry Judge DO Emergency Medicine Past Med/Surg History Medical History (Updated 07/09/23 @ 16:33 by Terry Judge DO) Seizure disorder H/O carotid stenosis "s/p EDITH stent placement 08/23/2013; Dr. Chen" Bacteremia Hyponatremia Closed fracture of right iliac wing Closed fracture of left inferior pubic ramus Closed fracture of superior ramus of left pubis Closed fracture of right superior pubic ramus Closed fracture of right inferior pubic ramus Sacral fracture, closed Hypertension History of aortic dissection History of cardioembolic cerebrovascular accident (CVA) Tobacco use disorder Alcohol use disorder Fracture of ankle, trimalleolar, right, open Left thalamic infarction "July 2017" Thoracic compression fracture Diabetes mellitus, type II COPD (chronic obstructive pulmonary disease) CAD (coronary artery disease) "S/p attempted PCI of a COSTUME CUTTER of right coronary artery, procedure aborted due to small localized focal dissection of aortic root in Jun 2017" Colloid cyst of third ventricle Statin intolerance ASCVD (arteriosclerotic cardiovascular disease) Impotence of organic origin Chronic pain Osteoarthritis Classic migraine H/O: CVA (cerebrovascular accident) "2005; residual R sided weakness" Dyslipidemia Obesity (BMI 30-39.9) GERD (gastroesophageal reflux disease) Depression Surgical History Previous back surgery H/O repair of rotator cuff "R side; 09/2006" Hx of tonsillectomy H/O bilateral hip replacements "[address] Benav[address]" Family History Son Spherocytosis Other Heart disease Social History Smoking Status: Current every day smoker Tobacco Type: Cigarettes Cigarettes Per Day: 1 PPD; Second Hand Exposure: No; Do You Dip or Chew Tobacco: No; Hx Alcohol Use: Yes Alcohol type: beer Alcohol Intake Frequency: 4 or More x per/Week Alcohol Intake Frequency Comment: 5-6 beers/day Hx Substance Use: No Preferred Language: Hebrew Communication Ability: Effective Garage Manager Required: No Beliefs That Will Affect Care: None marital status: Current Living Situation: Spouse Current Living Situation Comment: How many Children do You have: 3 Feels Safe at Home: Yes Assistive Devices: Walker Allergies Allergies Allergy/AdvReac Type Severity Reaction Status Date / Time ciprofloxacin Allergy Severe hives Verified 07/09/23 15:03 simvastatin AdvReac Intermediate MUSCLE Verified 07/09/23 15:03 PAIN/WEAKNESS [id number] Reductase AdvReac Intermediate MUSCLE Unverified 07/09/23 15:03 Inhibitor PAIN/WEAKNESS [[id number] Reductase Inhibitor] Home Meds Home Medications Medication Instructions Recorded Confirmed clopidogrel 75 mg tablet 75 mg PO QAM ##0 06/14/15 07/09/23 tamsulosin 0.4 mg capsule 0.4 mg PO Q OTHER DAY ##0 07/24/17 07/09/23 isosorbide mononitrate 60 mg 60 mg PO QAM #0 tabs 04/18/18 07/09/23 tablet,extended release 24 hr nitroglycerin 0.4 mg sublingual 0.4 mg sublingual DIRECTED PRN 04/18/18 07/09/23 tablet Chest Pain ##0 folic acid 400 mcg tablet 400 mcg PO DAILY ##0 04/22/18 07/09/23 thiamine HCl (vitamin B1) 100 mg 100 mg PO QAM ##0 04/22/18 07/09/23 tablet aspirin 81 mg tablet,delayed 81 mg PO QAM 10/02/18 07/09/23 release hydrocodone 5 mg-acetaminophen 325 1 tab PO TID PRN Pain 05/18/19 07/09/23 mg tablet metoprolol tartrate 25 mg tablet 25 mg PO DAILY 06/15/21 07/09/23 ondansetron HCl 4 mg tablet 4 mg PO Q6H PRN Nausea 06/15/21 07/09/23 acetaminophen 500 mg tablet 500 mg PO Q4 PRN Pain 11/27/22 07/09/23 albuterol sulfate 90 mcg/actuation 2 puff inhalation Q4 PRN Wheezing 11/27/22 07/09/23 aerosol inhaler cholecalciferol (vitamin D3) 50 50 mcg PO QAM 11/27/22 07/09/23 mcg (2,000 unit) capsule (Vitamin D3) duloxetine 30 mg capsule,delayed 30 mg PO QAM 11/27/22 07/09/23 release duloxetine 30 mg capsule,delayed 60 mg PO HS 11/27/22 07/09/23 release finasteride 5 mg tablet 5 mg PO QAM 11/27/22 07/09/23 omeprazole 20 mg capsule,delayed 20 mg PO QAM 11/27/22 07/09/23 release alirocumab 75 mg/mL subcutaneous 75 mg subcut .14DAYS 07/09/23 07/09/23 pen injector (Praluent Pen) lasmiditan 50 mg tablet (Reyvow) 50 mg PO DIRECTED PRN Migraine 07/09/23 07/09/23 Headache Previous Rx's Medication Instructions Recorded levetiracetam 500 mg tablet 500 mg PO BID #60 tabs 12/12/22 (Sharda) Results & Data (ED) Vital Signs Vital Signs - 24 hr 07/09/23 12:37 07/09/23 12:37 07/09/23 12:37 Temperature 36.4 C L Temperature Source Oral Pulse Rate 66 Pulse Rate [Apical] 65 Pulse Rhythm Pulse Rhythm [Apical] Regular Pulse Strength [Apical] Normal Respiratory Rate 17 Respiratory Effort / Characteristics Non-Labored Spontaneous Respiratory Depth Normal Respiratory Pattern Regular Blood Pressure Blood Pressure [Right Arm] 129/61 Blood Pressure Mean Blood Pressure Mean [Right Arm] 83 Blood Pressure Position [Right Arm] Semi-fowlers Pulse Oximetry 97 98 Oxygen Delivery Method Room Air Room Air Sepsis Recent Fever Within 48 Hours Sepsis New/Unexplained Change in Mental Status Sepsis Action Taken by Nursing 07/09/23 12:38 07/09/23 12:38 07/09/23 15:00 Temperature 36.4 C L Temperature Source Oral Pulse Rate 63 65 Pulse Rate [Apical] 79 Pulse Rhythm Regular Pulse Rhythm [Apical] Pulse Strength [Apical] Respiratory Rate 17 17 18 Respiratory Effort / Characteristics Non-Labored Spontaneous Non-Labored Respiratory Depth Normal Normal Respiratory Pattern Regular Blood Pressure 129/61 Blood Pressure [Right Arm] 192/103 H Blood Pressure Mean 83 Blood Pressure Mean [Right Arm] 132 Blood Pressure Position [Right Arm] Lying Pulse Oximetry 100 96 99 Oxygen Delivery Method Room Air Room Air Room Air Sepsis Recent Fever Within 48 Hours No Sepsis New/Unexplained Change in Mental Status N/A Sepsis Action Taken by Nursing No Action Required 07/09/23 16:27 Temperature Temperature Source Pulse Rate 78 Pulse Rate [Apical] Pulse Rhythm Pulse Rhythm [Apical] Pulse Strength [Apical] Respiratory Rate Respiratory Effort / Characteristics Respiratory Depth Respiratory Pattern Blood Pressure Blood Pressure [Right Arm] Blood Pressure Mean Blood Pressure Mean [Right Arm] Blood Pressure Position [Right Arm] Pulse Oximetry Oxygen Delivery Method Sepsis Recent Fever Within 48 Hours Sepsis New/Unexplained Change in Mental Status Sepsis Action Taken by Nursing Laboratory Data 07/09/23 13:05 07/09/23 13:05 Lab Results 07/09/23 07/09/23 Range/Units 13:05 14:59 WBC 11.02 H (4.8-10.8) K/ul RBC 4.03 L (4.70-6.10) M/uL Hgb 13.1 L (14.0-18.0) g/dl Hct 38.5 L (42.0-52.0) % MCV 95.5 (80.0-100.0) fL MCH 32.5 (25.0-34.0) pg MCHC 34.0 (32.0-36.0) g/dL RDW Std Deviation 42.1 (36.4-46.3) fL RDW Coeff of Keny 12.0 (11.5-14.5) % Plt Count 202 (130-400) K/uL MPV 8.6 L (9.4-12.4) fL Immature Gran % (Auto) 0.8 % Neut % (Auto) 80.7 % Lymph % (Auto) 8.9 % [place] % (Auto) 8.4 % Eos % (Auto) 0.6 % Baso % (Auto) 0.6 % Neut # (Auto) 8.88 H (1.40-6.50) K/uL Lymph # (Auto) 0.98 L (1.20-3.40) K/uL [place] # (Auto) 0.93 H (0.11-0.59) K/uL Eos # (Auto) 0.07 (0.00-0.50) K/uL Baso # (Auto) 0.07 (0.00-0.20) K/uL Immature Gran # (Auto) 0.09 (0.01-0.20) K/uL PT 10.4 (9.0-12.0) Seconds INR 0.9 (0.9-1.1) Sodium 132 L (136-145) mmol/L Potassium 4.8 (3.5-5.1) mmol/L Chloride 99 (98-107) mmol/L Carbon Dioxide 26 (21-32) mmol/L Anion Gap 7 (3-11) BUN 10 (6-23) mg/dl Creatinine 1.24 (0.6-1.4) mg/dl Est Cr Clr Drug Dosing 69.2 ml/min Est GFR ( Amer) 68.8 ml/min Est GFR (Non-Af Amer) 59.4 ml/min BUN/Creatinine Ratio 8.1 L (10-20) Glucose 141 H (70-99(Fasting)) mg/dl Calcium 9.3 (8.6-10.3) mg/dl Total Bilirubin 0.4 (0.2-1.0) mg/dl AST 31 (13-39) U/L ALT 25 (7-52) U/L Alkaline Phosphatase 63 (34-104) U/L Troponin I High Sens 118.3 H* 94.8 H* D (0-20) pg/ml Total Protein 6.8 (6.0-8.3) gm/dl Albumin 4.1 (3.4-5.0) gm/dl Globulin 2.7 (2.5-4.0) gm/dl Albumin/Globulin Ratio 1.5 (0.9-2) Lipase 40 (11-82) U/L Ethyl Alcohol mg/dL < 10.0 (<10.0) mg/dl Administered Medications Discontinued Medications Aspirin (Aspirin Chew 324 Mg) 324 mg PO NOW STA Stop: 07/09/23 14:03 Last Admin: 07/09/23 14:12 Dose: 324 mg Documented By: ELVIA Sodium Chloride (Nss) 500 mls @ 999 mls/hr IV .Q31M ONE Stop: 07/09/23 14:42 Last Infusion: 07/09/23 15:10 Dose: Infused Documented By: Admin: 07/09/23 14:16 Dose: 999 mls/hr Documented By: AMS Ioversol (Optiray 320 500ml) 112 ml IV ONCE ONE Stop: 07/09/23 14:56 Last Admin: 07/09/23 14:56 Dose: 112 ml Documented By: [facility] Imaging Data Radiologist's Impression: Chest X-Ray 07/09/23 12:30 XR chest 1V portable HISTORY: Chest pain, nonspecific COMPARISON: Chest 12/12/2022. FINDINGS: The lungs are clear. The cardiac silhouette remains mildly enlarged. No pleural effusions. No pneumothorax. Old, healed right-sided rib fractures and an old right clavicle fracture again noted. IMPRESSION: No acute process. ACT 112: Negative or not required by law. Electronically signed by: Jonathan Correa M.D. 07/09/2023 1:[address] 07/09/23 12:33 CT OF THE HEAD WITHOUT CONTRAST CLINICAL HISTORY: Syncope and collapse. COMPARISON STUDY: MRI of the brain June 13, 2021. Head CT December 12, 2022. CT DOSE: 703.85 mGy.cm TECHNIQUE: Helical axial images of the head were obtained without IV contrast. Automated exposure control was utilized for the study. A dose lowering technique was utilized adhering to the principles of ALARA. FINDINGS: No acute intracranial hemorrhage, midline shift or mass effect is present. The ventricular system is stable. Moderate dilatation of the third ventricle and mild dilatation of the lateral ventricles remains unchanged. A 7 mm colloid cyst is again noted. Left frontal encephalomalacia is unchanged. Basal cisterns are patent. There are no extra-axial collections. The appearance of the brain is unchanged. There is no acute calvarial fracture. Trace fluid within the right mastoid air cells is present. IMPRESSION: 1. No acute intracranial findings. No change in appearance of the brain. Left frontal encephalomalacia. 2. 7 mm colloid cyst. Stable ventricular size. ACT 112: Negative or not required by law. Electronically signed by: Sajan Ferrara M.D. 07/09/2023 1:27 PM Chest CTA 07/09/23 14:11 CT angio chest dissec wo/w con CLINICAL HISTORY: CP, history of aortic root dissection 2017 TECHNIQUE: Multidetector row helical CT of the chest was performed before and after injection of IV contrast. Coronal and sagittal reformations were obtained. Automated dose lowering techniques and/or adjustment according to patient size were utilized for this exam. CT DOSE: 1371.47 mGy.cm Comparison: Comparison is made to CT chest 06/15/2021 FINDINGS: Lungs and pleura: Bronchial wall thickening is seen. Heart and pericardium: Heart size is normal. No pericardial effusion. Vessels: No aortic dissection or intramural hematoma is seen. MRA trunk measures 35 mm in diameter. Moderate atherosclerotic disease is seen. Mediastinum and eddy: Unremarkable. Chest wall and lower neck: Unremarkable. Abdomen: A hiatal hernia is seen. Bones: Degenerative changes of the thoracic spine. Old healed rib fractures are seen. IMPRESSION: 1. No acute abnormality and in particular no evidence of acute aortic injury. 2. Atherosclerotic disease is seen. ACT 112: Negative or not required by law. Electronically signed by: Jimmy Qureshi M.D. 07/09/2023 3:20 PM Discharge Plan Visit Data Chief Complaint: Chest Pain Stated Complaint: CHEST PAIN ED Provider: Terry Judge Discharge Problem: Chest pain Forms Stand Alone Forms: [employer] Prescriptions Prescriptions: No Action clopidogrel 75 mg Tablet 75 mg PO QAM Qty: 0 tamsulosin 0.4 mg Capsule 0.4 mg PO Q OTHER DAY Qty: 0 isosorbide mononitrate 60 mg Tablet Extended Release 24 Hr 60 mg PO QAM Qty: 0 nitroglycerin 0.4 mg Tablet, Sublingual 0.4 mg Sublingual DIRECTED PRN (Reason: Chest Pain) Qty: 0 Rx Instructions: PLACE ONE TABLET UNDER THE TONGUE EVERY 5 MINUTES FOR UP TO 3 DOSES OVER 15 MINUTES IF NEEDED FOR CHEST PAIN folic acid 400 mcg Tablet 400 mcg PO DAILY Qty: 0 thiamine HCl (vitamin B1) 100 mg Tablet 100 mg PO QAM Qty: 0 aspirin 81 mg Tablet,Delayed Release (Dr/Ec) 81 mg PO QAM hydrocodone-acetaminophen 5-325 mg Tablet 1 tab PO TID PRN (Reason: Pain) ondansetron HCl 4 mg tablet 4 mg PO Q6H PRN (Reason: Nausea) metoprolol tartrate 25 mg tablet 25 mg PO DAILY omeprazole 20 mg capsule,delayed release(DR/EC) 20 mg PO QAM duloxetine 30 mg capsule,delayed release(DR/EC) 30 mg PO QAM finasteride 5 mg tablet 5 mg PO QAM duloxetine 30 mg capsule,delayed release(DR/EC) 60 mg PO HS albuterol sulfate 90 mcg/actuation HFA aerosol inhaler 2 puff INHALATION Q4 PRN (Reason: Wheezing) acetaminophen 500 mg Tablet 500 mg PO Q4 PRN (Reason: Pain) cholecalciferol (vitamin D3) [Vitamin D3] 50 mcg (2,000 unit) Capsule 50 mcg PO QAM levetiracetam [Keppra] 500 mg tablet 500 mg PO BID Qty: 60 0RF Praluent Pen 75 mg/mL pen injector 75 mg SUBCUT .14DAYS Reyvow 50 mg tablet 50 mg PO DIRECTED PRN (Reason: Migraine Headache) Referrals Referrals: Terry Resendez MD [Primary Care Provider] - Discharge Problem: Chest pain Qualifiers: Chest pain type: unspecified Qualified Code(s): R07.9 - Chest pain, unspecified
--- NOTE | 2023-07-09 13:14 | XRay Report ---
XR chest 1V portable HISTORY: Chest pain, nonspecific COMPARISON: Chest 12/12/2022. FINDINGS: The lungs are clear. The cardiac silhouette remains mildly enlarged. No pleural effusions. No pneumothorax. Old, healed right-sided rib fractures and an old right clavicle fracture again noted . IMPRESSION: No acute process. ACT 112: Negative or not required by law. Electronically signed by: Jonathan Correa M.D. 07/09/2023 1:12 PM
--- NOTE | 2023-07-09 13:29 | CT Scan Report ---
CT OF THE HEAD WITHOUT CONTRAST CLINICAL HISTORY: Syncope and collapse. COMPARISON STUDY: MRI of the brain June 13, 2021. Head CT December 12, 2022. CT DOSE: 703.85 mGy.cm TECHNIQUE: Helical axial images of the head were obtained without IV contrast. Automated exposure con trol was utilized for the study. A dose lowering technique was utilized adhering to the principles o f ALARA. FINDINGS: No acute intracranial hemorrhage, midline shift or mass effect is present. The ventricular system is stable. Moderate dilatation of the third ventricle and mild dilatation of the lateral ventr icles remains unchanged. A 7 mm colloid cyst is again noted. Left frontal encephalomalacia is unchang ed. Basal cisterns are patent. There are no extra-axial collections. The appearance of the brain is u nchanged. There is no acute calvarial fracture. Trace fluid within the right mastoid air cells is pre sent. IMPRESSION: 1. No acute intracranial findings. No change in appearance of the brain. Left frontal encephalomalaci a. 2. 7 mm colloid cyst. Stable ventricular size. ACT 112: Negative or not required by law. Electronically signed by: Sajan Ferrara M.D. 07/09/2023 1:27 PM
[2023-07-09 13:41] LABS: Basophils # (auto) 0.07 K/uL (0.00-0.20); Basophils % (auto) 0.6 %; Eosinophils # (auto) 0.07 K/uL (0.00-0.50); Eosinophils % (auto) 0.6 %; Hematocrit (blood only) 38.5 % (42.0-52.0); Hemoglobin 13.1 g/dl (14.0-18.0); Immature Granulocytes # (auto) 0.09 K/uL (0.01-0.20); Immature Granulocytes % (auto) 0.8 %; Lymphocytes # (auto) 0.98 K/uL (1.20-3.40); Lymphocytes % (auto) 8.9 %; Mean Corpuscular Hemoglobin 32.5 pg (25.0-34.0); Mean Corpuscular Volume 95.5 fL (80.0-100.0); Mean Platelet Volume 8.6 fL (9.4-12.4); Monocytes # (auto) 0.93 K/uL (0.11-0.59); Monocytes % (auto) 8.4 %; Neutrophils # (auto) 8.88 K/uL (1.40-6.50); Neutrophils % (auto) 80.7 %; Platelet Count 202 K/uL (130-400); RDW Standard Deviation 42.1 fL (36.4-46.3); Red Blood Count 4.03 M/uL (4.70-6.10); White Blood Count 11.02 K/ul (4.8-10.8)
[2023-07-09 13:52] LABS: Albumin Globulin Ratio 1.5 (0.9-2); Albumin Level 4.1 gm/dl (3.4-5.0); BUN Creatinine Ratio 8.1 (10-20); Bilirubin,Total 0.4 mg/dl (0.2-1.0); Calcium 9.3 mg/dl (8.6-10.3); Creatinine Clr Calc Pharmacy 69.2 ml/min; Est GFR (African American) 68.8 ml/min; Est GFR (Non-African American) 59.4 ml/min; Globulin 2.7 gm/dl (2.5-4.0); Potassium 4.8 mmol/L (3.5-5.1); Total Protein 6.8 gm/dl (6.0-8.3)
[2023-07-09 14:02] LABS: INR 0.9 (0.9-1.1); Prothrombin Time 10.4 Seconds (9.0-12.0); Troponin I High Sensitivity 118.3 pg/ml (0-20)
[2023-07-09] MEDS ORDERED: ASPIRIN CHEW 324 MG PO STA (14:02)
[2023-07-09] MEDS ORDERED: SODIUM CHLORIDE 0.9% 500 ML IV ONE (14:12)
[2023-07-09] MEDS ORDERED: OPTIRAY 320 500ml IV ONE (14:55)
--- NOTE | 2023-07-09 14:55 | History & Physical Report ---
Date of Service July 09, 2023 Assessment & Plan (1) NSTEMI (non-ST elevated myocardial infarction): (2) CAD (coronary artery disease): Plan: Admit to telemetry Patient presenting from home after syncopal event and subsequent chest pain. History of CAD (Chronic RCA occlusion, attempted STATIONARY FIREMAN PCI that was partially successful, plain balloon angioplasty performed but stents could not be accommodated). In the ED, initial HS troponin 118, EKG shows mild ST depressions in the inferior and lateral leads Took 2 sublingual nitroglycerin at home with subsequent resolution of chest pain CTA negative for dissection ED discussed case cardiology, recommends IV heparin Continue to trend troponin, resting echo Cardiology consult Continue ASA, beta-radha, nitrate. Noted to be statin intolerant, on praluent injections. (3) Syncope: (4) History of cardioembolic cerebrovascular accident (CVA): (5) H/O carotid stenosis: Plan: Possibly due to ACS however given history of CVA, carotid artery occlusion, will obtain brain MRI/MRA, neck MRA (6) Seizure disorder: Plan: No reported seizure-like activity, does not appear the patient was postictal Continue Keppra (7) Chronic pain: Plan: Continue home hydrocodone/acetaminophen, Cymbalta DVT PROPHYLAXIS On IV heparin Patient seen in collaboration with Dr. Burden. I spent a total of 75 minutes coordinating, documenting, and providing care for this patient excluding time spent in the performance of separately billed services. This included personally reviewing all current laboratories and imaging studies, medication reconciliation, outpatient chart review, and discussion with specialists. History of Present Illness Chief Complaint: Chest Pain Primary Care Provider: Terry Resendez MD 67 year old male with PMH diet controlled DM type II, dyslipidemia with statin intolerance, COPD, carotid artery occlusion s/p right carotid stent and left internal carotid artery occlusion, history of CVA post cardiac cath, CAD (Chronic RCA occlusion, attempted STATIONARY FIREMAN PCI that was partially successful, plain balloon angioplasty performed but stents could not be accommodated), and other problems listed below who presents to the ED for evaluation after syncopal event and chest pain. History obtained from the patient and review of outpatient PCP, cardiology, neurology records. Patient reports that he was outside about to start chopping wood when he felt like he had a bowel movement. He went inside and while on the toilet, he subsequently passed out and fell to the floor. heard a noise from the bathroom and found patient on the floor. Reports that he was disoriented for a few minutes but came to quickly. He reported a left-sided chest pain. Patient's gave him 2 sublingual nitroglycerin with subsequent resolution of the pain. He was diaphoretic and short of breath. Patient did not bite his tongue, no vomiting. EMS was called and patient was brought to the ED for further evaluation. Patient reports he otherwise has been feeling well recently. No other recent illnesses, fevers, chills. Denies abdominal pain. Has been having urinary urgency that is unchanged from recent baseline. In the ED, initial HS troponin 118. EKG shows mild ST depressions in the inferior and lateral leads. CTA negative for dissection. Patient was given full dose ASA, IVF, and started on heparin drip. Allergies Allergy/AdvReac Type Severity Reaction Status Date / Time ciprofloxacin Allergy Severe hives Verified 07/09/23 15:03 simvastatin AdvReac Intermediate MUSCLE Verified 07/09/23 15:03 PAIN/WEAKNESS Mqiddqd-[id number]-OkD Reductase AdvReac Intermediate MUSCLE Unverified 07/09/23 15:03 Inhibitor PAIN/WEAKNESS [Llefihn-Iej-Iqv Reductase Inhibitor] Home Medications Medication Instructions Recorded Confirmed Type clopidogrel 75 mg tablet 75 mg PO QAM ##0 06/14/15 07/09/23 History tamsulosin 0.4 mg capsule 0.4 mg PO Q OTHER DAY ##0 07/24/17 07/09/23 History isosorbide mononitrate 60 mg 60 mg PO QAM #0 tabs 04/18/18 07/09/23 History tablet,extended release 24 hr nitroglycerin 0.4 mg sublingual 0.4 mg sublingual DIRECTED PRN 04/18/18 07/09/23 History tablet Chest Pain ##0 folic acid 400 mcg tablet 400 mcg PO DAILY ##0 04/22/18 07/09/23 History thiamine HCl (vitamin B1) 100 mg 100 mg PO QAM ##0 04/22/18 07/09/23 History tablet aspirin 81 mg tablet,delayed 81 mg PO QAM 10/02/18 07/09/23 History release hydrocodone 5 mg-acetaminophen 325 1 tab PO TID PRN Pain 05/18/19 07/09/23 History mg tablet metoprolol tartrate 25 mg tablet 25 mg PO DAILY 06/15/21 07/09/23 History ondansetron HCl 4 mg tablet 4 mg PO Q6H PRN Nausea 06/15/21 07/09/23 History acetaminophen 500 mg tablet 500 mg PO Q4 PRN Pain 11/27/22 07/09/23 History albuterol sulfate 90 mcg/actuation 2 puff inhalation Q4 PRN Wheezing 11/27/22 07/09/23 History aerosol inhaler cholecalciferol (vitamin D3) 50 50 mcg PO QAM 11/27/22 07/09/23 History mcg (2,000 unit) capsule (Vitamin D3) duloxetine 30 mg capsule,delayed 30 mg PO QAM 11/27/22 07/09/23 History release duloxetine 30 mg capsule,delayed 60 mg PO HS 11/27/22 07/09/23 History release finasteride 5 mg tablet 5 mg PO QAM 11/27/22 07/09/23 History omeprazole 20 mg capsule,delayed 20 mg PO QAM 11/27/22 07/09/23 History release levetiracetam 500 mg tablet 500 mg PO BID #60 tabs 12/12/22 07/09/23 Rx (Keppra) alirocumab 75 mg/mL subcutaneous 75 mg subcut .14DAYS 07/09/23 07/09/23 History pen injector (Praluent Pen) lasmiditan 50 mg tablet (Reyvow) 50 mg PO DIRECTED PRN Migraine 07/09/23 07/09/23 History Headache Past Med/Surg History Medical History (Updated 07/09/23 @ 16:33 by Terry Judge DO) Seizure disorder H/O carotid stenosis "s/p EDITH stent placement 08/23/2013; Dr. Chen" Bacteremia Hyponatremia Closed fracture of right iliac wing Closed fracture of left inferior pubic ramus Closed fracture of superior ramus of left pubis Closed fracture of right superior pubic ramus Closed fracture of right inferior pubic ramus Sacral fracture, closed Hypertension History of aortic dissection History of cardioembolic cerebrovascular accident (CVA) Tobacco use disorder Alcohol use disorder Fracture of ankle, trimalleolar, right, open Left thalamic infarction "July 2017" Thoracic compression fracture Diabetes mellitus, type II COPD (chronic obstructive pulmonary disease) CAD (coronary artery disease) "S/p attempted PCI of a STATIONARY FIREMAN of right coronary artery, procedure aborted due to small localized focal dissection of aortic root in Jun 2017" Colloid cyst of third ventricle Statin intolerance ASCVD (arteriosclerotic cardiovascular disease) Impotence of organic origin Chronic pain Osteoarthritis Classic migraine H/O: CVA (cerebrovascular accident) "2005; residual R sided weakness" Dyslipidemia Obesity (BMI 30-39.9) GERD (gastroesophageal reflux disease) Depression Surgical History Previous back surgery H/O repair of rotator cuff "R side; 09/2006" Hx of tonsillectomy H/O bilateral hip replacements "[address] Benavidez" Family History Son Spherocytosis Other Heart disease Social History Smoking Status: Current every day smoker Tobacco Type: Cigarettes Cigarettes Per Day: 1 PPD; Second Hand Exposure: No; Do You Dip or Chew Tobacco: No; Hx Alcohol Use: Yes Alcohol type: beer Alcohol Intake Frequency: 4 or More x per/Week Alcohol Intake Frequency Comment: 5-6 beers/day Hx Substance Use: No Preferred Language: Faroese Communication Ability: Effective Counter Former Required: No Beliefs That Will Affect Care: None marital status: Current Living Situation: Spouse Current Living Situation Comment: How many Children do You have: 3 Feels Safe at Home: Yes Assistive Devices: Walker Physical Exam Constitutional: WD/WN, vitals as above no acute distress Eyes: PERRL, conjunctivae normal, anicteric sclerae ENMT: external ear and nose normal, oropharynx normal Respiratory: normal respiratory effort, lungs clear to auscultation Cardiovascular: Rate/Rhythm: regular rate and regular rhythm Vessels: normal peripheral pulses Extremities: no edema Gastrointestinal (Abdomen): normal bowel sounds, soft, nontender, no hepatosplenomegaly Musculoskeletal: no cyanosis or clubbing, extremities motor strength 5/5 Skin: no rashes, warm and dry Neurologic: PERRL, EOMI, accommodation nl, no face palsy, no dysarthria Psychiatric: A+Ox3, euthymic affect Results & Data Results & Data Vital Signs (Past 12 Hours) Vital Signs Temp Pulse Pulse Resp BP BP Pulse Ox 07/09/23 12:38 65 17 96 07/09/23 12:38 36.4 C L 63 17 129/61 100 07/09/23 12:37 66 07/09/23 12:37 36.4 C L 65 17 129/61 98 07/09/23 12:37 97 O2 Del Method 07/09/23 12:38 Room Air 07/09/23 12:38 Room Air 07/09/23 12:37 07/09/23 12:37 Room Air 07/09/23 12:37 Room Air Laboratory Results Short CBC 07/09/23 Range/Units 13:05 WBC 11.02 H (4.8-10.8) K/ul Hgb 13.1 L (14.0-18.0) g/dl Hct 38.5 L (42.0-52.0) % Plt Count 202 (130-400) K/uL BMP 07/09/23 13:05 Sodium 132 L Potassium 4.8 Chloride 99 Carbon Dioxide 26 BUN 10 Creatinine 1.24 Glucose 141 H Calcium 9.3 Liver Function 07/09/23 Range/Units 13:05 Total Bilirubin 0.4 (0.2-1.0) mg/dl AST 31 (13-39) U/L ALT 25 (7-52) U/L Alkaline Phosphatase 63 (34-104) U/L Albumin 4.1 (3.4-5.0) gm/dl Diagnostic Findings Chest X-Ray 07/09/23 12:30 XR chest 1V portable HISTORY: Chest pain, nonspecific COMPARISON: Chest 12/12/2022. FINDINGS: The lungs are clear. The cardiac silhouette remains mildly enlarged. No pleural effusions. No pneumothorax. Old, healed right-sided rib fractures and an old right clavicle fracture again noted. IMPRESSION: No acute process. ACT 112: Negative or not required by law. Electronically signed by: Jonathan Correa M.D. 07/09/2023 1:[address] 07/09/23 12:33 CT OF THE HEAD WITHOUT CONTRAST CLINICAL HISTORY: Syncope and collapse. COMPARISON STUDY: MRI of the brain June 13, 2021. Head CT December 12, 2022. CT DOSE: 703.85 mGy.cm TECHNIQUE: Helical axial images of the head were obtained without IV contrast. Automated exposure control was utilized for the study. A dose lowering technique was utilized adhering to the principles of ALARA. FINDINGS: No acute intracranial hemorrhage, midline shift or mass effect is present. The ventricular system is stable. Moderate dilatation of the third ventricle and mild dilatation of the lateral ventricles remains unchanged. A 7 mm colloid cyst is again noted. Left frontal encephalomalacia is unchanged. Basal cisterns are patent. There are no extra-axial collections. The appearance of the brain is unchanged. There is no acute calvarial fracture. Trace fluid within the right mastoid air cells is present. IMPRESSION: 1. No acute intracranial findings. No change in appearance of the brain. Left frontal encephalomalacia. 2. 7 mm colloid cyst. Stable ventricular size. ACT 112: Negative or not required by law. Electronically signed by: Sajan Ferrara M.D. 07/09/2023 1:27 PM Chest CTA 07/09/23 14:11 CT angio chest dissec wo/w con CLINICAL HISTORY: CP, history of aortic root dissection 2016 TECHNIQUE: Multidetector row helical CT of the chest was performed before and after injection of IV contrast. Coronal and sagittal reformations were obtained. Automated dose lowering techniques and/or adjustment according to patient size were utilized for this exam. CT DOSE: 1371.47 mGy.cm Comparison: Comparison is made to CT chest 06/15/2021 FINDINGS: Lungs and pleura: Bronchial wall thickening is seen. Heart and pericardium: Heart size is normal. No pericardial effusion. Vessels: No aortic dissection or intramural hematoma is seen. MRA trunk measures 35 mm in diameter. Moderate atherosclerotic disease is seen. Mediastinum and eddy: Unremarkable. Chest wall and lower neck: Unremarkable. Abdomen: A hiatal hernia is seen. Bones: Degenerative changes of the thoracic spine. Old healed rib fractures are seen. IMPRESSION: 1. No acute abnormality and in particular no evidence of acute aortic injury. 2. Atherosclerotic disease is seen. ACT 112: Negative or not required by law. Electronically signed by: Jimmy Qureshi M.D. 07/09/2023 3:20 PM Code Status & VTE Plan VTE Prophylaxis Plan VTE Prophylaxis will be ordered: No Supervising Physician Co-Signing Physician Notes I have seen and discussed the case with the collaborating ART APPRAISER. I agree with the above H&P. I have reviewed and confirmed the patients medical history, the findings on physical examination, and the patients diagnosis and treatment plan with ART APPRAISER and agree with the information documented. In short, Mr. León is a 67 year old male with PMH diet controlled DM type II, dyslipidemia with statin intolerance, COPD, carotid artery occlusion s/p right carotid stent and left internal carotid artery occlusion, history of CVA post cardiac cath, CAD (Chronic RCA occlusion, attempted STATIONARY FIREMAN PCI that was partially successful, plain balloon angioplasty performed but stents could not be accommodated) who was brought to ED due to syncopal episode at home. He reports working in the yard when he had the sudden urge to defecate, but felt "odd" and did not recall much of what followed. present and reports seeing patient ocampo in to use the restroom, then shortly after settling in the restroom she heard a loud "thud." When she came to assess, she found the patient "rosario" in color and diaphoretic, wedged between the toilet and wall. He was unable to stand, his words did not make sense, and he was weak. EMS arrived and that's when his symptoms resolved. Patient was evaluated shortly after returning from CTA, at which point he denied any active chest pain, but reports some :chest pain" when he woke up, he was unable to "pinpoint" exactly what the chest pain was, but pointed over his left chest. He notes recent mechanical falls in the setting of intoxication, but denies any recent "black out" episodes. Chest CTA with atherosclerotic disease, but no diseection PE notable for a man with no focal neuro deficits, CNII-XII intact, strength 5/5 in all extremities, purpura/ecchymosis with skin tear on right UE, CV RRR no murmur, ABD soft, but distended, no fluid shift, no edema in extremities #Syncopal episode -Concern for vasovagal v cardiogenic given history -Monitor on tele -MRA brain/neck 2/2 recent contrast load -Ortho stats (reports ongoing symptoms c/w orthostasis) #Elevated troponin -Trend trop to peak, likely NSTEMI type II secondary to demand; however, extensive CAD lesions -No active chest pain v ischemia changes on EKG -Cards on consult, IV heparin on Rest of plan as above (2) CAD (coronary artery disease) Associated angina: without angina Coronary Disease-Associated Artery/Lesion type: [place] artery [place] vs. transplanted heart: [place] heart Qualified Code(s): I25.10 - Atherosclerotic heart disease of [place] coronary artery without angina pectoris
--- NOTE | 2023-07-09 15:21 | CT Scan Report ---
CT angio chest dissec wo/w con CLINICAL HISTORY: CP, history of aortic root dissection 2016 TECHNIQUE: Multidetector row helical CT of the chest was performed before and after injection of IV c ontrast. Coronal and sagittal reformations were obtained. Automated dose lowering techniques and/or a djustment according to patient size were utilized for this exam. CT DOSE: 1371.47 mGy.cm Comparison: Comparison is made to CT chest 06/15/2021 FINDINGS: Lungs and pleura: Bronchial wall thickening is seen. Heart and pericardium: Heart size is normal. No pericardial effusion. Vessels: No aortic dissection or intramural hematoma is seen. MRA trunk measures 35 mm in diameter. M oderate atherosclerotic disease is seen. Mediastinum and eddy: Unremarkable. Chest wall and lower neck: Unremarkable. Abdomen: A hiatal hernia is seen. Bones: Degenerative changes of the thoracic spine. Old healed rib fractures are seen. IMPRESSION: 1. No acute abnormality and in particular no evidence of acute aortic injury. 2. Atherosclerotic disease is seen. ACT 112: Negative or not required by law. Electronically signed by: Jimmy Qureshi M.D. 07/09/2023 3:20 PM
[2023-07-09] MEDS ORDERED: Heparin IV Adult Wt-Based Standard WITH Bolus Protocol IV STA (15:36)
[2023-07-09] MEDS ORDERED: HEPARIN SOD (PORCINE) 1000 UNIT/ML IV ONE (15:51)
[2023-07-09] MEDS ORDERED: LABETALOL HCL IV 5 MG/ML 20ML IV STA (16:10)
[2023-07-09] MEDS: HEPARIN SODIUM/DEXTROSE 25,000 UNITS/500 ML BAG IV SCH (16:32)
--- NOTE | 2023-07-09 16:50 | Electrocardiogram Report ---
Test Reason : Blood Pressure : / mmHG Vent. Rate : 062 BPM Atrial Rate : 062 BPM P-R Int : 152 ms QRS Dur : 094 ms QT Int : 450 ms P-R-T Axes : 074 060 063 degrees QTc Int : 456 ms Normal sinus rhythm Nondiagnostic inferior Q waves Diffuse Minor Nonspecific ST abnormality Abnormal ECG When compared with ECG of 12-DEC-2022 08:51, Nonspecific ST abnormality now present Confirmed by Prince Santiago ([id number]) on 07/09/2023 4:49:52 PM Referred By: Confirmed By:Prince Santiago
[2023-07-09] MEDS ORDERED: HYDROCODONE/ACETAMOPHEN 5/325MG TAB PO PRN (17:24)
[2023-07-09] MEDS ORDERED: ACETAMINOPHEN 325 MG TAB PO PRN (17:24)
[2023-07-09] MEDS ORDERED: NITROGLYCERIN SL 0.4 MG/TAB TAB SL PRN (17:24)
[2023-07-09] MEDS ORDERED: TAMSULOSIN HCL 0.4 MG CAP PO SCH (18:00)
[2023-07-09] MEDS ORDERED: GADOBUTROL 65ML VIAL IV ONE (18:05)
--- NOTE | 2023-07-09 18:14 | Magnetic Resonance Report ---
Brain MRA HISTORY: Hypotension. syncope TECHNIQUE: 3-D [id number] MRA of the brain was performed without contrast. COMPARISON STUDY: Head CT 07/09/2023. Head CTA 01/24/2021 FINDINGS: There is a hypoplastic distal right vertebral artery with a dominant distal left vertebral artery. The vertebral arteries, basilar artery, and right internal carotid artery appear patent. Ther e is chronic occlusion of the left internal carotid artery. The bilateral ACAs, MCAs, and crop nutrition scientist show n o significant stenosis or occlusion. No cerebral aneurysms identified. There is old left MCA territor y infarct again noted. There is a 7 mm colloid cyst, unchanged. No hydrocephalus. IMPRESSION: 1. Chronic occlusion of the left internal carotid artery again noted. 2. Otherwise, no significant stenosis, occlusion, or aneurysm within the [place]. ACT 112: Negative or not required by law. Electronically signed by: Jonathan Correa M.D. 07/09/2023 6:12 PM
--- NOTE | 2023-07-09 18:20 | Magnetic Resonance Report ---
NECK MRA HISTORY: syncope, hx carotid occlusion TECHNIQUE: [id number] and gadolinium-enhanced MRA of the neck was performed both before and after the intravenous administration of contrast. All measurements were calculated based on NASCET criteri a. COMPARISON STUDY: CTA neck 01/24/2021. FINDINGS: The aortic arch and proximal great vessels are widely patent. Focal high-grade stenosis wi thin the takeoff of the left vertebral artery is again noted. Remaining left vertebral artery is wide ly patent. There is a hypoplastic but patent right vertebral artery. Chronic occlusion of the left IC A again noted. The bilateral common carotid arteries appear widely patent. The proximal right interna l carotid artery is obscured by the overlying stent. However, the mid to distal right internal caroti d artery appear widely patent. IMPRESSION: 1. Chronic occlusion of the left internal carotid artery again noted. 2. There is a stent obscuring the proximal right internal carotid artery. However, the mid to distal right internal carotid artery appears patent. 3. Focal high-grade stenosis at the takeoff of the left vertebral artery, unchanged. ACT 112: Negative or not required by law. Electronically signed by: Jonathan Correa M.D. 07/09/2023 6:17 PM
--- NOTE | 2023-07-09 18:28 | Magnetic Resonance Report ---
Brain MRI WITHOUT CONTRAST HISTORY: syncope TECHNIQUE: Multiplanar multisequence MRI of the brain was performed without the use of contrast. COMPARISON STUDY: Head CT 07/09/2023. Brain MRI 06/16/2021. FINDINGS: No areas of restricted diffusion to suggest acute infarction. Encephalomalacia and surround ing gliosis within the left frontal lobe again noted consistent with an old left MCA territory infarc t. This is similar to the prior study. Mild atrophic changes again noted within the brain. There is a 5 mm pineal gland cyst. No mass, hematoma, midline shift. The paranasal sinuses and mastoid air cell s are clear. Small right mastoid effusion. A 7 mm colloid cyst is again noted. Chronic occlusion of t he left internal carotid artery again noted. The remaining major vascular flow-voids at the skull bas e are intact. IMPRESSION: 1. No acute infarct or intracranial hemorrhage. 2. There is an old left frontal lobe infarct and chronic occlusion of the left ICA again noted. 3. A 7 mm colloid cyst with stable ventricular size. ACT 112: Negative or not required by law. Electronically signed by: Jonathan Correa M.D. 07/09/2023 6:25 PM
[2023-07-09] MEDS ORDERED: hydrALAZINE HCL 20 MG/ML VIAL IV STA (19:15)
[2023-07-09] MEDS ORDERED: GABAPENTIN 1200MG ALCOHOL WITHDRAWAL LOAD PO STA (19:43)
[2023-07-09] MEDS ORDERED: LORazepam 1 MG in SYRINGE 0.5 ML IV PRN (19:43)
[2023-07-09] MEDS ORDERED: GABAPENTIN 600 MG TAB PO ONE (20:00)
[2023-07-09] MEDS: levETIRAcetam 500 MG TAB PO SCH (20:07)
[2023-07-09] MEDS: NICOTINE 21 MG/24 HR TDSY TD SCH (20:20)
[2023-07-09] MEDS ORDERED: DULoxetine HCL 60 MG CAP PO SCH (21:00)
[2023-07-09 23:36] LABS: Partial Thromboplastin Ratio 2.2; Prothrombin Time 10.8 Seconds (9.0-12.0)
[2023-07-10 00:06] LABS: Partial Thromboplastin Time 61.7 Seconds (21.0-31.0)
[2023-07-10 03:16] LABS: Hematocrit (blood only) 36.6 % (42.0-52.0); Hemoglobin 12.6 g/dl (14.0-18.0); Mean Corpuscular Hgb Conc 34.4 g/dL (32.0-36.0); Mean Corpuscular Volume 95.8 fL (80.0-100.0); Mean Platelet Volume 8.5 fL (9.4-12.4); Platelet Count 183 K/uL (130-400); RDW Coefficient of Variation 12.2 % (11.5-14.5); RDW Standard Deviation 43.2 fL (36.4-46.3); Red Blood Count 3.82 M/uL (4.70-6.10); White Blood Count 8.39 K/ul (4.8-10.8)
[2023-07-10 03:31] LABS: Calcium 9.2 mg/dl (8.6-10.3); Creatinine Clr Calc Pharmacy 67.9 ml/min; Est GFR (African American) 68.1 ml/min; Est GFR (Non-African American) 58.8 ml/min
[2023-07-10 04:00] LABS: Partial Thromboplastin Time 55.8 Seconds (21.0-31.0)
[2023-07-10] MEDS: GABAPENTIN 600 MG TAB PO SCH ×2 (05:17→12:47)
[2023-07-10] MEDS: levETIRAcetam 500 MG TAB PO SCH (08:20)
[2023-07-10] MEDS: NICOTINE 21 MG/24 HR TDSY TD SCH (08:21)
[2023-07-10] MEDS: HEPARIN SODIUM/DEXTROSE 25,000 UNITS/500 ML BAG IV SCH (08:24)
--- NOTE | 2023-07-10 08:44 | Electrocardiogram Report ---
Test Reason : Blood Pressure : / mmHG Vent. Rate : 086 BPM Atrial Rate : 086 BPM P-R Int : 154 ms QRS Dur : 094 ms QT Int : 374 ms P-R-T Axes : 085 059 069 degrees QTc Int : 447 ms Normal sinus rhythm Left atrial enlargement Nondiagnoatic inferior ! waves Diffuse Nonspecific ST and T wave abnormality Abnormal ECG When compared with ECG of 09-JUL-2023 12:32, No significant change was found Confirmed by Prince Santiago ([id number]) on 07/10/2023 8:44:03 AM Referred By: REFERRED SELF Confirmed By:Prince Santiago
[2023-07-10] MEDS ORDERED: METOPROLOL TARTRATE 25 MG TAB PO SCH (09:00)
[2023-07-10] MEDS ORDERED: THIAMINE HCL 100 MG TAB PO SCH (09:00)
[2023-07-10] MEDS ORDERED: CLOPIDOGREL BISULFATE 75 MG TAB PO SCH (09:00)
[2023-07-10] MEDS ORDERED: ASPIRIN 81 MG ECTAB PO SCH (09:00)
[2023-07-10] MEDS ORDERED: PANTOprazole 40 MG TAB PO SCH (09:00)
[2023-07-10] MEDS ORDERED: FOLIC ACID 1 MG TAB PO SCH (09:00)
[2023-07-10] MEDS ORDERED: DULoxetine HCL 30 MG CAP PO SCH (09:00)
[2023-07-10] MEDS ORDERED: ISOSORBIDE MONO EXTENDED REL 60 MG TABCR PO SCH (09:00)
[2023-07-10] MEDS ORDERED: FINASTERIDE 5 MG TAB PO SCH (09:00)
[2023-07-10 11:19] VITALS: RESP 20
--- NOTE | 2023-07-10 11:25 | Cardiology Consultation ---
Date of Consultation July 10, 2023 Assessment & Plan (1) Vasovagal syncope: (2) Elevated troponin: (3) Demand ischemia: (4) Chest pain: (5) Uncontrolled hypertension: Plan Vasovagal syncope. General measures advised. Mildly elevated troponin, multifactorial, demand ischemia, known ASCVD, prior attempted PCI of an RCA MAINFRAME ARCHITECT partially successful, complicated by postprocedural CVA, preserved LV function. Echo pending this admission. Continue aspirin, clopidogrel, beta-radha therapy, isosorbide mononitrate, and PCSK9 inhibitor therapy (Praluent). See below. Uncontrolled hypertension. Change metoprolol tartrate 25 mg once per day to metoprolol succinate 25 mg once per day. Add amlodipine 2.5 mg/day. Continue isosorbide. Permissive hypertension recommended. Dyslipidemia. Previously deemed not a candidate for retrial of statin therapy. Intolerant to ezetimibe, gemfibrozil and fenofibrate. LDL 88 mg/dL on 11/17/2022. Continue Praluent. Awaiting TTE and evaluation by Dr. Carr. Outpatient cardiology follow-up as scheduled on August 12, 2023 at 1 PM. Supervising Physician Co-Signing Physician Notes Patient seen and examined at the bedside. 67-year-old male describes syncopal episode after bowel movement followed by diaphoresis. Mild chest discomfort reported after severe abdominal pain. Pain-free since admission. Blood pressure remains mildly elevated, however, reports intolerance to antihypertensive therapies in the past resulting in syncope. present at bedside voicing concern regarding additional blood pressure lowering medication. Patient anxious for discharge. Prefers to avoid additional invasive procedures. PE: VSS. Hypertensive. Gen: NAD, AAO x3. Heart: Regular rhythm, borderline bradycardia, normal S1-S2. No murmur. Lungs: Clear bilateral, no rales, rhonchi, wheeze. Extremities: No edema. A/P: Agree with above PA-C history, physical exam, assessment and plan. Continue medical management. Patient declines invasive procedures currently. We will review resting 2D transthoracic echocardiogram. If there are no new regional wall motion abnormalities or change in LV function, patient can be discharged to home with close outpatient cardiology follow-up. History of Present Illness Reason for Consultation: NSTEMI Requesting Physician: Azeb Attending Physician: Dr. Sommer History of Present Illness Mr. Patel León is a very pleasant 67-year-old male who is being for evaluation of chest discomfort, NSTEMI. Mr. León notes drinking beer at his shed. He had plans to cut wood when he started to experience significant upset stomach. He notes going into the house and having a significantly large loose bowel movement. After a while of sitting on the commode he stood up and experienced a brief episode of syncope. No tongue biting. The event was not witnessed. His was in the next room and heard him fall. He mirella difficulty getting up, having to call his son Patricio who came and sat him in the chair. While sitting in the chair he had ongoing abdominal discomfort and proceeded to have a second large loose bowel movement. Thereafter he developed a headache and diaphoresis as well as "a little bit" of chest discomfort. His gave him one sublingual nitroglycerin with improvement followed by a second nitroglycerin tablet with resolution and then summoned EMS. He has not had any further chest discomfort. EKG on presentation and again this morning without acute change. High-sensitivity troponin mildly elevated 118.3 -> 94.8 -> 92.6 -> and 78.1 pg/mL. Resting echocardiography has been completed this morning and is pending interpretation. Problem List: Chronic alcohol and tobacco use Chronic hyponatremia Recurrent syncopal episodes and symptomatic orthostatic hypotension Chronic headaches, intermittent dizziness Atypical chest pain - Chest tightness at nighttime and dysphagia, significantly improved following addition of omeprazole, reproducible chest wall pain today. Chronic RCA occlusion, attempted MAINFRAME ARCHITECT PCI that was partially successful, plain balloon angioplasty performed but stents could not be accommodated, postprocedure CVA History of carotid disease, with right carotid stent, patent, left internal carotid artery occlusion Hypertension Significant dyslipidemia with intolerance to multiple medications. Hospitalized after a severe reaction to simvastatin in 2005. Placed on gemfibrozil in 2007 which was also discontinued due to muscle side effects. Fenofibrate in 2012 which was discontinued due to muscle side effects. Deemed to not be a candidate for statin therapy (patient and provider opinion) . Prescribed Praluent with improved lipid control. Daytime fatigue, chronic headaches, witnessed apneic episodes, loud snoring. Sleep testing back in December of 2017 showed no evidence of clinically significant sleep apnea/hypopnea or nocturnal hypoxemia. No REM sleep was attained, so no comments were made about REM without atonia. Severe periodic limb movement disorder noted. Type 2 diabetes mellitus COPD Migraine Cervical disc disease Degenerative disc disease Chronic bilateral low back pain with right-sided sciatica Osteoarthritis Osteoporosis Urinary retention Allergies Allergy/AdvReac Type Severity Reaction Status Date / Time ciprofloxacin Allergy Severe hives Verified 07/09/23 15:03 simvastatin AdvReac Intermediate MUSCLE Verified 07/09/23 15:03 PAIN/WEAKNESS Fvyvamd-HPB-VbL Reductase AdvReac Intermediate MUSCLE Unverified 07/09/23 15:03 Inhibitor PAIN/WEAKNESS [Jwvactp-Thq-Rgj Reductase Inhibitor] Home Medications Medication Instructions Recorded Confirmed Type clopidogrel 75 mg tablet 75 mg PO QAM ##0 06/14/15 07/09/23 History tamsulosin 0.4 mg capsule 0.4 mg PO Q OTHER DAY ##0 07/24/17 07/09/23 History isosorbide mononitrate 60 mg 60 mg PO QAM #0 tabs 04/18/18 07/09/23 History tablet,extended release 24 hr nitroglycerin 0.4 mg sublingual 0.4 mg sublingual DIRECTED PRN 04/18/18 07/09/23 History tablet Chest Pain ##0 folic acid 400 mcg tablet 400 mcg PO DAILY ##0 04/22/18 07/09/23 History thiamine HCl (vitamin B1) 100 mg 100 mg PO QAM ##0 04/22/18 07/09/23 History tablet aspirin 81 mg tablet,delayed 81 mg PO QAM 10/02/18 07/09/23 History release hydrocodone 5 mg-acetaminophen 325 1 tab PO TID PRN Pain 05/18/19 07/09/23 History mg tablet metoprolol tartrate 25 mg tablet 25 mg PO DAILY 06/15/21 07/09/23 History ondansetron HCl 4 mg tablet 4 mg PO Q6H PRN Nausea 06/15/21 07/09/23 History acetaminophen 500 mg tablet 500 mg PO Q4 PRN Pain 11/27/22 07/09/23 History albuterol sulfate 90 mcg/actuation 2 puff inhalation Q4 PRN Wheezing 11/27/22 07/09/23 History aerosol inhaler cholecalciferol (vitamin D3) 50 50 mcg PO QAM 11/27/22 07/09/23 History mcg (2,000 unit) capsule (Vitamin D3) duloxetine 30 mg capsule,delayed 30 mg PO QAM 11/27/22 07/09/23 History release duloxetine 30 mg capsule,delayed 60 mg PO HS 11/27/22 07/09/23 History release finasteride 5 mg tablet 5 mg PO QAM 11/27/22 07/09/23 History omeprazole 20 mg capsule,delayed 20 mg PO QAM 11/27/22 07/09/23 History release levetiracetam 500 mg tablet 500 mg PO BID #60 tabs 12/12/22 07/09/23 Rx ([facility]) alirocumab 75 mg/mL subcutaneous 75 mg subcut .14DAYS 07/09/23 07/09/23 History pen injector (Praluent Pen) lasmiditan 50 mg tablet (Reyvow) 50 mg PO DIRECTED PRN Migraine 07/09/23 07/09/23 History Headache Patient History Medical History Seizure disorder H/O carotid stenosis "s/p EDITH stent placement 08/23/2013; Dr. Chen" Bacteremia Hyponatremia Closed fracture of right iliac wing Closed fracture of left inferior pubic ramus Closed fracture of superior ramus of left pubis Closed fracture of right superior pubic ramus Closed fracture of right inferior pubic ramus Sacral fracture, closed Hypertension History of aortic dissection History of cardioembolic cerebrovascular accident (CVA) Tobacco use disorder Alcohol use disorder Fracture of ankle, trimalleolar, right, open Left thalamic infarction "July 2017" Thoracic compression fracture Diabetes mellitus, type II COPD (chronic obstructive pulmonary disease) CAD (coronary artery disease) "S/p attempted PCI of a MAINFRAME ARCHITECT of right coronary artery, procedure aborted due to small localized focal dissection of aortic root in Jun 2017" Colloid cyst of third ventricle Statin intolerance ASCVD (arteriosclerotic cardiovascular disease) Impotence of organic origin Chronic pain Osteoarthritis Classic migraine H/O: CVA (cerebrovascular accident) "2005; residual R sided weakness" Dyslipidemia Obesity (BMI 30-39.9) GERD (gastroesophageal reflux disease) Depression Surgical History Previous back surgery H/O repair of rotator cuff "R side; 09/2006" Hx of tonsillectomy H/O bilateral hip replacements "[address] Benavidez" Family History Son Spherocytosis Other Heart disease Social History Smoking Status: Unknown if ever smoked Tobacco Type: Cigarettes Cigarettes Per Day: 1 PPD; Second Hand Exposure: No; Do You Dip or Chew Tobacco: No; Hx Alcohol Use: Yes Alcohol type: beer Alcohol Intake Frequency: 4 or More x per/Week Alcohol Intake Frequency Comment: 5-6 beers/day Hx Substance Use: No Preferred Language: Icelandic Communication Ability: Effective Parts Salesperson Required: No Beliefs That Will Affect Care: None marital status: Current Living Situation: Spouse Current Living Situation Comment: How many Children do You have: 3 Other Information That Helps Us Care for You: No Feels Safe at Home: Yes Safety Concerns: Feels Safe At This Time Assistive Devices: Walker Review of Systems Review of Systems: Complete review of systems is otherwise as stated above, negative, or noncontributory. Physical Exam Physical Exam: General: A&Ox3. NAD. Skin: No rash. Eyes: PER. Conjunctiva pink, sclera clear. HENT: Normocephalic. Atraumatic. Neck: Bilateral carotid bruits. No JVD. No HJR. Heart: Regular at 76 bpm. Soft systolic murmur, LLSB. No rub. Lungs: Diminished. Decreased. Clear. Abdomen: +BS. Soft. Nontender. No masses. No organomegaly. Extremities: No clubbing, cyanosis, or edema. Pulses: radial=2/4, posterior tibial=2/4. Limited neurological examination: No focal deficit. Results & Data Vital Signs (Past 12 Hours) Vital Signs Temp Pulse Pulse Resp BP Pulse Ox O2 Del Method 07/10/23 11:18 36.6 C 59 L 20 167/83 H 97 Room Air 07/10/23 07:15 36.6 C 91 H 19 194/96 H 98 Room Air 07/10/23 03:00 37.1 C 78 16 128/68 96 Room Air 07/10/23 02:39 78 Laboratory Results Cardiac Enzymes 07/09/23 07/09/23 07/09/23 Range/Units 13:05 14:59 22:37 AST 31 (13-39) U/L Troponin I High Sens 118.3 H* 94.8 H* D 92.6 H* (0-20) pg/ml 07/10/23 Range/Units 02:52 AST (13-39) U/L Troponin I High Sens 78.1 H* D (0-20) pg/ml Coagulation 07/09/23 07/09/23 07/10/23 Range/Units 13:05 22:37 02:52 PT 10.4 10.8 (9.0-12.0) Seconds APTT 61.7 H* 55.8 H* (21.0-31.0) Seconds CBC 07/09/23 07/10/23 Range/Units 13:05 02:52 WBC 11.02 H 8.39 (4.8-10.8) K/ul RBC 4.03 L 3.82 L (4.70-6.10) M/uL Hgb 13.1 L 12.6 L (14.0-18.0) g/dl Hct 38.5 L 36.6 L (42.0-52.0) % Plt Count 202 183 (130-400) K/uL Neut # (Auto) 8.88 H (1.40-6.50) K/uL Lymph # (Auto) 0.98 L (1.20-3.40) K/uL [place] # (Auto) 0.93 H (0.11-0.59) K/uL Eos # (Auto) 0.07 (0.00-0.50) K/uL Baso # (Auto) 0.07 (0.00-0.20) K/uL Comprehensive Metabolic Panel 07/09/23 07/10/23 Range/Units 13:05 02:52 Sodium 132 L 133 L (136-145) mmol/L Potassium 4.8 4.0 (3.5-5.1) mmol/L Chloride 99 101 (98-107) mmol/L Carbon Dioxide 26 24 (21-32) mmol/L BUN 10 10 (6-23) mg/dl Creatinine 1.24 1.25 (0.6-1.4) mg/dl Glucose 141 H 123 H (70-99(Fasting)) mg/dl Calcium 9.3 9.2 (8.6-10.3) mg/dl AST 31 (13-39) U/L ALT 25 (7-52) U/L Alkaline Phosphatase 63 (34-104) U/L Total Protein 6.8 (6.0-8.3) gm/dl Albumin 4.1 (3.4-5.0) gm/dl Intake and Output 07/09/23 07/10/23 07/10/23 22:59 06:59 14:59 Intake Total 740 / 1240 491.866 / 491.866 Output Total 300 / 900 600 / 900 Balance 440 / 340 -600 / 340 491.866 / 491.866 Intake: IV 500 / 1000 491.866 / 491.866 Heparin Sodium/Dextrose 25,000 491.866 / 491.866 units In 500 ml @ 1,550 UNITS/ HR 31 mls/hr IV .[id number] BRIAN Rx# :[id number] Sodium Chloride 0.9% 500 ml @ 500 / 500 999 mls/hr IV .Q31M ONE Rx#: [id number] Oral 240 / 240 Output: Urine 300 / 900 600 / 900 Other: # Unmeasured Voids 1 Weight 99.3 kg 99.1 kg Weight Measurement Method Built in [facility] Diagnostic Findings January 2023 Zio Monitor: Patient had a min HR of 53 bpm, max HR of 139 bpm, and avg HR of 72 bpm. Predominant underlying rhythm was Sinus Rhythm. 2 Supraventricular Tachycardia runs occurred, the run with the fastest interval lasting 5 beats with a max rate of 139 bpm, the longest lasting 12 beats with an avg rate of 113 bpm. Isolated SVEs were rare (<1.0%), SVE Couplets were rare (<1.0%), and SVE Triplets were rare (<1.0%). Isolated VEs were rare (<1.0%), and no VE Couplets or VE Triplets were present. No atrial fibrillation or flutter, no pauses. No patient marker or diary entries were recorded February 13, 2023 TTE Interpretation Summary (as per Dr. Brito): The qualitative LV ejection fraction is 55-59% (normal). The LV wall thickness is mildly increased (concentric). The left ventricular wall motion is normal. Mild aortic valve regurgitation is present. Mild mitral regurgitation is present. EKG on presentation revealed normal sinus rhythm at 62 bpm with nondiagnostic inferior Q waves, diffuse minor nonspecific ST abnormality. QTc 456 ms. EKG this AM July 10, 2023, revealed normal sinus rhythm at 86 bpm with left atrial enlargement, nondiagnostic inferior Q waves, diffuse nonspecific STT wave abnormality. When compared to prior available tracings, there is no significant change. Telemetry: Sinus rhythm throughout with heart rates in the 80s and 90s. Chest x-ray: No acute process. Chest CTA: No acute abnormality. No evidence of aortic injury. Head CT: No acute intracranial findings. Left frontal encephalomalacia. 7 mm colloid cyst. Stable ventricular size. Brain MRI: No acute infarct or intracranial hemorrhage. Old left frontal lobe infarct and chronic occlusion of the left internal carotid artery again noted. 7 mm colloid cyst with stable ventricular size. Brain MRA: Chronic occlusion of the left internal carotid artery. Otherwise, no significant stenosis, occlusion, or aneurysm within the [place]. Neck MRA: Chronic occlusion of the left internal carotid artery. Stent obscuring the proximal right internal carotid artery. Mild to distal right internal carotid artery appears patent. Focal high-grade stenosis at the takeoff of the left vertebral artery, unchanged. (4) Chest pain Chest pain type: unspecified Qualified Code(s): R07.9 - Chest pain, unspecified
[2023-07-10] MEDS ORDERED: amLODIPine BESYLATE 5 MG TAB PO ONE (12:00)
--- NOTE | 2023-07-10 13:33 | Hospitalist Progress Note ---
Date of Service July 10, 2023 Assessment & Plan (1) Chest pain: Plan 67-year-old male with PMH of T2DM/diet controlled, HLD/statin intolerance, carotid artery occlusion status post right carotid stent, left internal carotid artery occlusion, CVA postcardiac cath, CAD (Chronic RCA occlusion, attempted CAMP ASSISTANT PCI that was partially successful, plain balloon angioplasty performed but stents could not be accommodated) presented to the ED 07/09 for evaluation after syncopal event and chest pain. Patient reports he was moving bowels when he started feeling dizziness/diaphoretic and does not remember much afterwards, he was found wedged between the toilet and wall by his . As he woke up, he had chest pain which was relieved by 2 sublingual nitroglycerin given to him by his . He is being managed for the following: NSTEMI History of CAD Patient presenting with chest pain, relieved with nitroglycerin prior to arrival. Admitting troponin 118, EKG with nondiagnostic inferior Q waves. Troponin down trended, patient with no further chest pain in the hospital. Continue with home aspirin/Plavix/beta-radha/PCSK9i/Imdur Cardiology on board, currently on IV heparin drip. Awaiting echo. Await further cardiology recommendation. Uncontrolled hypertension: Continue with cardiac medication, amlodipine has been added, metoprolol tartrate changed to succinate. Syncope History of cardioembolic CVA History of carotid stenosis Syncope likely vasovagal versus ACS versus other CT head with 7 mm colloid cyst, stable ventricular size. MRI brain with no acute infarct or hemorrhage. 7 mm colloid cyst with stable ventricular size. Old infarct/chronic occlusion of the left ICA noted. MRA head and neck-chronic occlusion of the left ICA noted. Focal high-grade stenosis at the takeoff of the left vertebral artery, unchanged. Neurology consulted, ? colloid cyst , syncope. Risks of alcohol withdrawal/alcohol abuse: TIKA S protocol, continue with thiamine and folic acid. Tobacco dependence: Nicotine patch. Patient not ready to quit alcohol and tobacco. Patient was counseled. History of seizure disorder: No reported seizure-like activity, does not appear the patient was postictal. Continue home Keppra. Chronic pain: Continue home hydrocodone/acetaminophen, Cymbalta. DVT prophylaxis: Patient on heparin drip Full code Admission and Anticipated Discharge Date Admission Date: July 09, 2023 Subjective Patient was seen and examined at bedside. Patient was lying in bed, on room air, denies any chest pain while in hospital, denies any headache, reports chronic dizziness with changing position which is improved by slow transition during changing position. Denies any changes in appetite or acute changes in his bowel or bladder habits lately. Reports his last alcoholic drink was yesterday. Patient reports he drinks 6-8 beers a day, smokes 1 packs a day. Physical Exam Physical Exam: GENERAL: Alert and oriented x3. NAD, on RA. HEENT: No pallor, no icterus. Pupils equal, round and reactive to light. Oral mucosa moist. NECK: No JVD, no neck masses. HEART: S1 and S2 heard. Regular rate and rhythm. No murmur, no gallop. RESPIRATORY SYSTEM: Normal AP diameter. No accessory muscle use. No wheezing, no crackles. ABDOMEN: Soft, bowel sounds present, nontender, no distention. CENTRAL NERVOUS SYSTEM: No facial droop. Speech is clear. Obeys simple commands. Moves extremities. EXTREMITIES: No edema, no erythema seen. Results & Data Results & Data Vital Signs (Past 12 Hours) Vital Signs Temp Pulse Pulse Resp BP Pulse Ox O2 Del Method 07/10/23 11:18 36.6 C 59 L 20 167/83 H 97 Room Air 07/10/23 07:15 36.6 C 91 H 19 194/96 H 98 Room Air 07/10/23 03:00 37.1 C 78 16 128/68 96 Room Air 07/10/23 02:39 78 (1) Chest pain Chest pain type: unspecified Qualified Code(s): R07.9 - Chest pain, unspecified
--- NOTE | 2023-07-10 14:53 | Neurology Consultation ---
Date of Consultation July 10, 2023 Assessment & Plan (1) Vasovagal syncope: With resultant hypoperfusion of the left hemisphere which might have caused temporary aphasia, with improvement upon laying in supine poistion , or improvement of BP (2) Seizure disorder: Low suspicion for a seizure event , continue keppra 500mg BID (3) H/O carotid stenosis: Plan Remains with chronic LICA occlusion and EDITH stenting, no intervention indicated Continue aspirin and Plavix, statin No Need for further neurological work up at this point Telehealth Consultation Telehealth Information Telehealth Information: I performed this visit using a real-time telehealth connection between my location and the patients location ([facility]). After connecting through interactive tele-video, patient was identified by name and date of and/or wristband check.Patient (or authorized healthcare small business representative) was informed that this was a telemedicine visit and it was being conducted confidentially over secure lines. My office door was closed and no one else was present in the room with me.Patient (or authorized healthcare small business representative) provided consent to proceed with the visit, expressed an understanding of privacy and security of the telemedicine visit, and gave permission to have a hospital small business representative in the room in order to assist with the visit and to conduct portions of the visit, as needed. I informed the patient (or authorized healthcare small business representative) that I reviewed their record and presented the opportunity for them to ask any questions regarding the visit today. The patient agreed to participate. History of Present Illness Reason for Consultation: Syncope Requesting Physician: Dr Sommer Attending Physician: Joe Sommer MD History of Present Illness The patient is a 67 Y.o Male with a PMH of DM type II, HLD,with statin intolerance, COPD, chronic LICA occlusion EDITH stent , hx of left frontal lobe infarct with LICA occlusion , CAD (Chronic RCA occlusion, attempted CAD ADMINISTRATOR PCI that was partially successful, plain balloon angioplasty performed but stents could not be accommodated), who presented to ED after syncopal event and chest pain. The patient and report being out shopping and he wanted to go to the bathroom , after he finished her turned to flush , suddenly felt dizzy , light headed with chest pain and fell down , his wfe hear a thud and came found him confused , dizzy, couldn't focus his eyes and was speaking gibberish , this lasted for about 10 minutes , he was clammy and sweating He reported a left- sided chest pain. Patient's gave him 2 sublingual nitroglycerin with subsequent resolution of the pain. He was diaphoretic and short of breath. Patient did not bite his tongue, no vomiting. EMS was called and patient was brought to the ED for further evaluation. her reported feeling dizzy all along Patient reports he otherwise has been feeling well recently. No other recent illnesses, fevers, chills. Denies abdominal pain. Has been having urinary urgency that is unchanged from recent baseline. In the ED, initial HS troponin 118. EKG shows mild ST depressions in the inferior and lateral leads. CTA negative for dissection. Patient was given full dose ASA, IVF, and started on heparin drip. Allergies Allergy/AdvReac Type Severity Reaction Status Date / Time ciprofloxacin Allergy Severe hives Verified 07/09/23 15:03 simvastatin AdvReac Intermediate MUSCLE Verified 07/09/23 15:03 PAIN/WEAKNESS [id number]-CHC-[id number] Reductase AdvReac Intermediate MUSCLE Unverified 07/09/23 15:03 Inhibitor PAIN/WEAKNESS [Tpugqlc-Ugy-Tyl Reductase Inhibitor] Home Medications Medication Instructions Recorded Confirmed Type clopidogrel 75 mg tablet 75 mg PO QAM ##0 06/14/15 07/09/23 History tamsulosin 0.4 mg capsule 0.4 mg PO Q OTHER DAY ##0 07/24/17 07/09/23 History isosorbide mononitrate 60 mg 60 mg PO QAM #0 tabs 04/18/18 07/09/23 History tablet,extended release 24 hr nitroglycerin 0.4 mg sublingual 0.4 mg sublingual DIRECTED PRN 04/18/18 07/09/23 History tablet Chest Pain ##0 folic acid 400 mcg tablet 400 mcg PO DAILY ##0 04/22/18 07/09/23 History thiamine HCl (vitamin B1) 100 mg 100 mg PO QAM ##0 04/22/18 07/09/23 History tablet aspirin 81 mg tablet,delayed 81 mg PO QAM 10/02/18 07/09/23 History release hydrocodone 5 mg-acetaminophen 325 1 tab PO TID PRN Pain 05/18/19 07/09/23 History mg tablet metoprolol tartrate 25 mg tablet 25 mg PO DAILY 06/15/21 07/09/23 History ondansetron HCl 4 mg tablet 4 mg PO Q6H PRN Nausea 06/15/21 07/09/23 History acetaminophen 500 mg tablet 500 mg PO Q4 PRN Pain 11/27/22 07/09/23 History albuterol sulfate 90 mcg/actuation 2 puff inhalation Q4 PRN Wheezing 11/27/22 07/09/23 History aerosol inhaler cholecalciferol (vitamin D3) 50 50 mcg PO QAM 11/27/22 07/09/23 History mcg (2,000 unit) capsule (Vitamin D3) duloxetine 30 mg capsule,delayed 30 mg PO QAM 11/27/22 07/09/23 History release duloxetine 30 mg capsule,delayed 60 mg PO HS 11/27/22 07/09/23 History release finasteride 5 mg tablet 5 mg PO QAM 11/27/22 07/09/23 History omeprazole 20 mg capsule,delayed 20 mg PO QAM 11/27/22 07/09/23 History release levetiracetam 500 mg tablet 500 mg PO BID #60 tabs 12/12/22 07/09/23 Rx (Keppra) alirocumab 75 mg/mL subcutaneous 75 mg subcut .14DAYS 07/09/23 07/09/23 History pen injector (Praluent Pen) lasmiditan 50 mg tablet (Reyvow) 50 mg PO DIRECTED PRN Migraine 07/09/23 07/09/23 History Headache Patient History Medical History Seizure disorder H/O carotid stenosis "s/p EDITH stent placement 08/23/2013; Dr. Chen" Bacteremia Hyponatremia Closed fracture of right iliac wing Closed fracture of left inferior pubic ramus Closed fracture of superior ramus of left pubis Closed fracture of right superior pubic ramus Closed fracture of right inferior pubic ramus Sacral fracture, closed Hypertension History of aortic dissection History of cardioembolic cerebrovascular accident (CVA) Tobacco use disorder Alcohol use disorder Fracture of ankle, trimalleolar, right, open Left thalamic infarction "July 2017" Thoracic compression fracture Diabetes mellitus, type II COPD (chronic obstructive pulmonary disease) CAD (coronary artery disease) "S/p attempted PCI of a CAD ADMINISTRATOR of right coronary artery, procedure aborted due to small localized focal dissection of aortic root in Jun 2017" Colloid cyst of third ventricle Statin intolerance ASCVD (arteriosclerotic cardiovascular disease) Impotence of organic origin Chronic pain Osteoarthritis Classic migraine H/O: CVA (cerebrovascular accident) "2005; residual R sided weakness" Dyslipidemia Obesity (BMI 30-39.9) GERD (gastroesophageal reflux disease) Depression Surgical History Previous back surgery H/O repair of rotator cuff "R side; 09/2006" Hx of tonsillectomy H/O bilateral hip replacements "[address] Benavidez" Family History Son Spherocytosis Other Heart disease Social History Smoking Status: Unknown if ever smoked Tobacco Type: Cigarettes Cigarettes Per Day: 1 PPD; Second Hand Exposure: No; Do You Dip or Chew Tobacco: No; Hx Alcohol Use: Yes Alcohol type: beer Alcohol Intake Frequency: 4 or More x per/Week Alcohol Intake Frequency Comment: 5-6 beers/day Hx Substance Use: No Preferred Language: Turkish Communication Ability: Effective Research Home Economist Required: No Beliefs That Will Affect Care: None marital status: Current Living Situation: Spouse Current Living Situation Comment: How many Children do You have: 3 Other Information That Helps Us Care for You: No Feels Safe at Home: Yes Safety Concerns: Feels Safe At This Time Assistive Devices: Walker Review of Systems General NEUROLOGIC EXAMINATION: Mental Status:alert, oriented to time, place, person, normal recent memory, normal remote memory, normal attention span, normal concentration, normal language and normal fund of knowledge Cranial Nerves: CN 2 - no visual defect on confrontation and pupils round, equal, reactive to light CN 3, 4, 6 - extra-ocular movements intact and no nystagmus CN 5 - facial sensation intact CN 7 - no facial asymmetry CN 8 - intact hearing CN 9, 10 - palate symmetric, normal gag CN 11 - good shoulder shrug CN 12 - tongue midline MOTOR: Strength was at least antigravity throughout, Pronator drift was absent and There were no abnormal movements SENSATION: intact and symmetric to pinprick, light touch, vibration and joint position GAIT: stable, no ataxia and can perform tandem walking COORDINATION: no ataxia with finger to nose testing and heel to valiente testing REFLEXES: cannot assess over telemedicine Physical Exam General NEUROLOGIC EXAMINATION: Mental Status:alert, oriented to time, place, person, normal recent memory, normal remote memory, normal attention span, normal concentration, normal language and normal fund of knowledge Cranial Nerves: CN 2 - no visual defect on confrontation and pupils round, equal, reactive to light CN 3, 4, 6 - extra-ocular movements intact and no nystagmus CN 5 - facial sensation intact CN 7 - no facial asymmetry CN 8 - intact hearing CN 9, 10 - palate symmetric, normal gag CN 11 - good shoulder shrug CN 12 - tongue midline MOTOR: Strength was at least antigravity throughout, Pronator drift was absent and There were no abnormal movements SENSATION: intact and symmetric to pinprick, light touch, vibration and joint position GAIT: stable, no ataxia and can perform tandem walking COORDINATION: no ataxia with finger to nose testing and heel to valiente testing REFLEXES: cannot assess over telemedicine Results & Data Vital Signs (Past 12 Hours) Vital Signs Temp Pulse Pulse Resp BP Pulse Ox O2 Del Method 07/10/23 11:18 36.6 C 59 L 20 167/83 H 97 Room Air 07/10/23 08:00 78 07/10/23 08:00 Room Air 07/10/23 07:15 36.6 C 91 H 19 194/96 H 98 Room Air 07/10/23 03:00 37.1 C 78 16 128/68 96 Room Air Laboratory Results See below Diagnostic Findings Laboratory Results - last 24 hr 07/09/23 07/09/23 07/09/23 14:59 16:34 22:37 WBC RBC Hgb Hct MCV MCH MCHC RDW Std Deviation RDW Coeff of Keny Plt Count MPV PT 10.8 INR 1.0 APTT 61.7 H* PTT Ratio 2.2 Sodium Potassium Chloride Carbon Dioxide Anion Gap BUN Creatinine Est Cr Clr Drug Dosing Est GFR ( Amer) Est GFR (Non-Af Amer) BUN/Creatinine Ratio Glucose Calcium Ammonia 24.0 Troponin I High Sens 94.8 H* D 92.6 H* Hepatitis C Ab (EIA) 07/10/23 02:52 WBC 8.39 RBC 3.82 L Hgb 12.6 L Hct 36.6 L MCV 95.8 MCH 33.0 MCHC 34.4 RDW Std Deviation 43.2 RDW Coeff of Keny 12.2 Plt Count 183 MPV 8.5 L PT INR APTT 55.8 H* PTT Ratio 2.0 Sodium 133 L Potassium 4.0 Chloride 101 Carbon Dioxide 24 Anion Gap 8 BUN 10 Creatinine 1.25 Est Cr Clr Drug Dosing 67.9 Est GFR ( Amer) 68.1 Est GFR (Non-Af Amer) 58.8 BUN/Creatinine Ratio 8.0 L Glucose 123 H Calcium 9.2 Ammonia Troponin I High Sens 78.1 H* D Hepatitis C Ab (EIA) Pending Chest CTA 07/09/23 14:11 CT angio chest dissec wo/w con CLINICAL HISTORY: CP, history of aortic root dissection 2016 TECHNIQUE: Multidetector row helical CT of the chest was performed before and after injection of IV contrast. Coronal and sagittal reformations were obtained. Automated dose lowering techniques and/or adjustment according to patient size were utilized for this exam. CT DOSE: 1371.47 mGy.cm Comparison: Comparison is made to CT chest 06/15/2021 FINDINGS: Lungs and pleura: Bronchial wall thickening is seen. Heart and pericardium: Heart size is normal. No pericardial effusion. Vessels: No aortic dissection or intramural hematoma is seen. MRA trunk measures 35 mm in diameter. Moderate atherosclerotic disease is seen. Mediastinum and eddy: Unremarkable. Chest wall and lower neck: Unremarkable. Abdomen: A hiatal hernia is seen. Bones: Degenerative changes of the thoracic spine. Old healed rib fractures are seen. IMPRESSION: 1. No acute abnormality and in particular no evidence of acute aortic injury. 2. Atherosclerotic disease is seen. ACT 112: Negative or not required by law. Electronically signed by: Jimmy Qureshi M.D. 07/09/2023 3:20 PM Brain MRI 07/09/23 16:12 Brain MRI WITHOUT CONTRAST HISTORY: syncope TECHNIQUE: Multiplanar multisequence MRI of the brain was performed without the use of contrast. COMPARISON STUDY: Head CT 07/09/2023. Brain MRI 06/16/2021. FINDINGS: No areas of restricted diffusion to suggest acute infarction. Encephalomalacia and surrounding gliosis within the left frontal lobe again noted consistent with an old left MCA territory infarct. This is similar to the prior study. Mild atrophic changes again noted within the brain. There is a 5 mm pineal gland cyst. No mass, hematoma, midline shift. The paranasal sinuses and mastoid air cells are clear. Small right mastoid effusion. A 7 mm colloid cyst is again noted. Chronic occlusion of the left internal carotid artery again noted. The remaining major vascular flow-voids at the skull base are intact. IMPRESSION: 1. No acute infarct or intracranial hemorrhage. 2. There is an old left frontal lobe infarct and chronic occlusion of the left ICA again noted. 3. A 7 mm colloid cyst with stable ventricular size. ACT 112: Negative or not required by law. Electronically signed by: Jonathan Correa M.D. 07/09/2023 6:25 PM Head MRA 07/09/23 16:12 Brain MRA HISTORY: Hypotension. syncope TECHNIQUE: 3-D [id number] MRA of the brain was performed without contrast. COMPARISON STUDY: Head CT 07/09/2023. Head CTA 01/24/2021 FINDINGS: There is a hypoplastic distal right vertebral artery with a dominant distal left vertebral artery. The vertebral arteries, basilar artery, and right internal carotid artery appear patent. There is chronic occlusion of the left internal carotid artery. The bilateral ACAs, MCAs, and traffic coordinator show no significant stenosis or occlusion. No cerebral aneurysms identified. There is old left MCA territory infarct again noted. There is a 7 mm colloid cyst, unchanged. No hydrocephalus. IMPRESSION: 1. Chronic occlusion of the left internal carotid artery again noted. 2. Otherwise, no significant stenosis, occlusion, or aneurysm within the [place] of [place]. ACT 112: Negative or not required by law. Electronically signed by: Jonathan Correa M.D. 07/09/2023 6:12 PM Neck MRA 07/09/23 16:12 NECK MRA HISTORY: syncope, hx carotid occlusion TECHNIQUE: Pjog-ev-zqgoty and gadolinium-enhanced MRA of the neck was performed both before and after the intravenous administration of contrast. All fredy urements were calculated based on NASCET criteria. COMPARISON STUDY: CTA neck 01/24/2021. FINDINGS: The aortic arch and proximal great vessels are widely patent. Focal high-grade stenosis within the takeoff of the left vertebral artery is again noted. Remaining left vertebral artery is widely patent. There is a hypoplastic but patent right vertebral artery. Chronic occlusion of the left ICA again noted. The bilateral common carotid arteries appear widely patent. The proximal right internal carotid artery is obscured by the overlying stent. However, the mid to distal right internal carotid artery appear widely patent. IMPRESSION: 1. Chronic occlusion of the left internal carotid artery again noted. 2. There is a stent obscuring the proximal right internal carotid artery. However, the mid to distal right internal carotid artery appears patent. 3. Focal high-grade stenosis at the takeoff of the left vertebral artery, unchanged. ACT 112: Negative or not required by law. Electronically signed by: Jonathan Correa M.D. 07/09/2023 6:17 PM
[2023-07-10 15:47] VITALS: BP 195/91; PULSE 69; TEMP 97.7; O2SAT 96
--- NOTE | 2023-07-10 15:47 | Discharge Summary ---
Date of Service July 10, 2023 Admission HPI Per Admitting Provider 67 year old male with PMH diet controlled DM type II, dyslipidemia with statin intolerance, COPD, carotid artery occlusion s/p right carotid stent and left internal carotid artery occlusion, history of CVA post cardiac cath, CAD (Chronic RCA occlusion, attempted LICENSED MIDWIFE PCI that was partially successful, plain balloon angioplasty performed but stents could not be accommodated), and other problems listed below who presents to the ED for evaluation after syncopal event and chest pain. History obtained from the patient and review of outpatient PCP, cardiology, neurology records. Patient reports that he was outside about to start chopping wood when he felt like he had a bowel movement. He went inside and while on the toilet, he subsequently passed out and fell to the floor. heard a noise from the bathroom and found patient on the floor. Reports that he was disoriented for a few minutes but came to quickly. He reported a left-sided chest pain. Patient's gave him 2 sublingual nitroglycerin with subsequent resolution of the pain. He was diaphoretic and short of breath. Patient did not bite his tongue, no vomiting. EMS was called and patient was brought to the ED for further evaluation. Patient reports he otherwise has been feeling well recently. No other recent illnesses, fevers, chills. Denies abdominal pain. Has been having urinary urgency that is unchanged from recent baseline. In the ED, initial HS troponin 118. EKG shows mild ST depressions in the inferior and lateral leads. CTA negative for dissection. Patient was given full dose ASA, IVF, and started on heparin drip. Admission Exam Per Admitting Provider Constitutional: WD/WN, vitals as above no acute distress Eyes: PERRL, conjunctivae normal, anicteric sclerae ENMT: external ear and nose normal, oropharynx normal Respiratory: normal respiratory effort, lungs clear to auscultation Cardiovascular: Rate/Rhythm: regular rate and regular rhythm Vessels: normal peripheral pulses Extremities: no edema Gastrointestinal (Abdomen): normal bowel sounds, soft, nontender, no hepatosplenomegaly Musculoskeletal: no cyanosis or clubbing, extremities motor strength 5/5 Skin: no rashes, warm and dry Neurologic: PERRL, EOMI, accommodation nl, no face palsy, no dysarthria Psychiatric: A+Ox3, euthymic affect Principal Diagnosis NSTEMI Likely vasovagal syncope Alcohol and tobacco abuse Discharge Exam GENERAL: Alert and oriented x3. NAD, on RA. HEENT: No pallor, no icterus. Pupils equal, round and reactive to light. Oral mucosa moist. NECK: No JVD, no neck masses. HEART: S1 and S2 heard. Regular rate and rhythm. No murmur, no gallop. RESPIRATORY SYSTEM: Normal AP diameter. No accessory muscle use. No wheezing, no crackles. ABDOMEN: Soft, bowel sounds present, nontender, no distention. CENTRAL NERVOUS SYSTEM: No facial droop. Speech is clear. Obeys simple commands. Moves extremities. EXTREMITIES: No edema, no erythema seen. Discharge Data Allergies Allergy/AdvReac Type Severity Reaction Status Date / Time ciprofloxacin Allergy Severe hives Verified 07/09/23 15:03 simvastatin AdvReac Intermediate MUSCLE Verified 07/09/23 15:03 PAIN/WEAKNESS Hndlssp-RWV-MpO Reductase AdvReac Intermediate MUSCLE Unverified 07/09/23 15:03 Inhibitor PAIN/WEAKNESS [Osmqmhp-Oim-Ilx Reductase Inhibitor] Consultations 07/09/23 14:19 ED Decision to Admit Stat 07/09/23 17:24 Consult Cardiology Routine 07/10/23 08:53 Consult Neurology Routine Ordered Studies 07/09/23 12:33 CT head/brain wo con Stat 07/09/23 14:11 CT angio chest dissec wo/w con Stat 07/09/23 16:12 MR angio neck wo/w con Urgent MR brain wo con Urgent MRI Angio Brain [MR angio head wo con] Urgent Hospital Course (1) Chest pain: Plan 67-year-old male with PMH of T2DM/diet controlled, HLD/statin intolerance, carotid artery occlusion status post right carotid stent, left internal carotid artery occlusion, CVA postcardiac cath, CAD (Chronic RCA occlusion, attempted LICENSED MIDWIFE PCI that was partially successful, plain balloon angioplasty performed but stents could not be accommodated) presented to the ED 07/09 for evaluation after syncopal event and chest pain. Patient reports he was moving bowels when he started feeling dizziness/diaphoretic and does not remember much afterwards, he was found wedged between the toilet and wall by his . As he woke up, he had chest pain which was relieved by 2 sublingual nitroglycerin given to him by his . He was managed for the following: NSTEMI History of CAD Patient presenting with chest pain, relieved with nitroglycerin prior to arrival. Admitting troponin 118, EKG with nondiagnostic inferior Q waves. Troponin down trended, patient with no further chest pain in the hospital. Continue with home aspirin/Plavix/beta-radha/PCSK9i/Imdur Cardiology on board, ok to dc once echo w/ no regional wall motion abn Echo reviewed, stable EF and no regional wall motion abn Changed metoprolol tartarate to succinate and added amlodipine on discharge w/ card recs. Patient hemodynamically stable, would like to go home today. Uncontrolled hypertension: Continue with cardiac medication, amlodipine has been added, metoprolol tartrate changed to succinate. Syncope History of cardioembolic CVA History of carotid stenosis Syncope likely vasovagal versus ACS versus other CT head with 7 mm colloid cyst, stable ventricular size. MRI brain with no acute infarct or hemorrhage. 7 mm colloid cyst with stable ventricular size. Old infarct/chronic occlusion of the left ICA noted. MRA head and neck-chronic occlusion of the left ICA noted. Focal high-grade stenosis at the takeoff of the left vertebral artery, unchanged. Neurology evaluated, appreciate recommendation. Risks of alcohol withdrawal/alcohol abuse: TIKA S protocol, continue with thiamine and folic acid. Tobacco dependence: Nicotine patch. Patient not ready to quit alcohol and tobacco. Patient was counseled. History of seizure disorder: No reported seizure-like activity, does not appear the patient was postictal. Continue home Keppra. Chronic pain: Continue home hydrocodone/acetaminophen, Cymbalta. DVT prophylaxis: Patient on heparin drip Full code Patient being discharged home with following instruction at the point of discharge: Follow-up with your primary care physician within a week time and likely you will need labs CBC/CMP/magnesium/phosphorus. Follow-up with your cardiology in 1 to 2 weeks time upon discharge. Take your medications as prescribed. Strongly advise against smoking tobacco/drinking alcohol products. Please make sure that you are able to get your medications today by calling your pharmacy before you leave the hospital so that your treatment continuity is not broken. [facility] Attestation I certify that this patient is under my care and that I, or a physicians microbiology lab assistant working with me, had a face to-face encounter that meets the [facility] [id number] encounter requirements with this patient. The encounter with the patient was in whole, or in part, for the following medical condition, which is the primary reason for home health care (list medical condition): I certify that, based on my findings, the following services are medically necessary home health services: My clinical findings support the need for the above services because: Further, I certify that my clinical findings support that this patient is homebound (i.e. absences from home require considerable and taxing effort and are for medical reasons or [facility] services or infrequently or of short duration when for other reasons) because: Certification for Home Health Services: Based on the above findings, I certify that this patient is confined to the home and needs intermittent halfway care, physical therapy and/or speech therapy or continues to need occupational therapy. The patient is under my care, and I have initiated the establishment of the plan of care. This patient will be followed by a physician who will periodically review the plan of care. Total Time Total Time Spent Total Time Spent (In Minutes): 45 Discharge Plan Discharge Items Patient Disposition: Home - Self-Care Reason For Visit: NSTEMI Discharge Diagnosis: NSTEMI Likely vasovagal syncope Alcohol and tobacco abuse Activity: Resume your previous activity Non-emergency contact: Primary Care Provider Call non-emergency contact if: you have any medication questions, your symptoms worsen and your temperature is above 101 Follow-up/Referrals: Terry Resendez MD [Primary Care Provider] - Diet: Heart Healthy and Low Sodium (2gm) Addtl Attending Provider Instructions: Follow-up with your primary care physician within a week time and likely you will need labs CBC/CMP/magnesium/phosphorus. Follow-up with your cardiology in 1 to 2 weeks time upon discharge. Take your medications as prescribed. Strongly advise against smoking tobacco/drinking alcohol products. Please make sure that you are able to get your medications today by calling your pharmacy before you leave the hospital so that your treatment continuity is not broken. Pending Studies at Discharge: No Stand-Alone Forms: My [facility] ObjectVideo, Smoking Cessation Medications and DC Order Prescriptions: New metoprolol succinate 25 mg Tablet Extended Release 24 Hr 25 mg PO QAM Qty: 30 0RF amlodipine 2.5 mg tablet 2.5 mg PO DAILY Qty: 30 0RF Continued clopidogrel 75 mg Tablet 75 mg PO QAM Qty: 0 tamsulosin 0.4 mg Capsule 0.4 mg PO Q OTHER DAY Qty: 0 isosorbide mononitrate 60 mg Tablet Extended Release 24 Hr 60 mg PO QAM Qty: 0 nitroglycerin 0.4 mg Tablet, Sublingual 0.4 mg Sublingual DIRECTED PRN (Reason: Chest Pain) Qty: 0 Rx Instructions: PLACE ONE TABLET UNDER THE TONGUE EVERY 5 MINUTES FOR UP TO 3 DOSES OVER 15 MINUTES IF NEEDED FOR CHEST PAIN folic acid 400 mcg Tablet 400 mcg PO DAILY Qty: 0 thiamine HCl (vitamin B1) 100 mg Tablet 100 mg PO QAM Qty: 0 aspirin 81 mg Tablet,Delayed Release (Dr/Ec) 81 mg PO QAM hydrocodone-acetaminophen 5-325 mg Tablet 1 tab PO TID PRN (Reason: Pain) ondansetron HCl 4 mg tablet 4 mg PO Q6H PRN (Reason: Nausea) omeprazole 20 mg capsule,delayed release(DR/EC) 20 mg PO QAM duloxetine 30 mg capsule,delayed release(DR/EC) 30 mg PO QAM finasteride 5 mg tablet 5 mg PO QAM duloxetine 30 mg capsule,delayed release(DR/EC) 60 mg PO HS albuterol sulfate 90 mcg/actuation HFA aerosol inhaler 2 puff INHALATION Q4 PRN (Reason: Wheezing) acetaminophen 500 mg Tablet 500 mg PO Q4 PRN (Reason: Pain) cholecalciferol (vitamin D3) [Vitamin D3] 50 mcg (2,000 unit) Capsule 50 mcg PO QAM levetiracetam [Keppra] 500 mg tablet 500 mg PO BID Qty: 60 0RF Praluent Pen 75 mg/mL pen injector 75 mg SUBCUT .14DAYS Reyvow 50 mg tablet 50 mg PO DIRECTED PRN (Reason: Migraine Headache) Discontinued metoprolol tartrate 25 mg tablet 25 mg PO DAILY Discharge Orders: Discharge Order (Routine); Ordered 07/10/23 Ordered By: Joe Sommer Admission Data Admit Date/Time: 07/09/23 14:29 Attending Provider: Joe oSmmer Admit Provider: Desiree Burden Primary Care Provider: Terry Resendez Other Providers: Desiree Burden; Mohit Gagnon; Elsie Hernandez; Addi Ramos; Elsie Capone; Clay Stallings; Jose Luis Garcia; Godfrey Brownlee; Prince Mae; Monique Ramirez; Marcellus Negron; Raghav Mora; Blaise Gutierrez; Rishi Clay; Dina Moses; Sydney Leigh
[2023-07-10] MEDS ORDERED: GABAPENTIN 600 MG TAB PO SCH (22:00)
[2023-07-11] MEDS ORDERED: METOPROLOL SUCC 25MG EXT REL TAB PO SCH (09:00)
--- OUTSIDE RECORDS SUMMARY | 2023-07-11 10:11 | External Medical Summary | Summary of Care ---
Author Name Unknown Organization [facility] Address [address] [place] [address] Phone [phone] Care Team Providers Care Bond Manager Name Role Phone Terry Resendez MD Primary Care Provider Reason for Visit * Reason Comments Outpatient Testing Encounter Details Date Type Department Care Team Description 05/18/2023 Laboratory Laboratory, [place] [address] [place] [address] [facility] [address] [place] [address] Type 2 diabetes mellitus with hemoglobin A1c goal of less than 7.0% ([facility]); Hemiplegia affecting right dominant side, unspecified etiology, unspecified hemiplegia type ([facility]); Urinary retention; Urinary incontinence, unspecified type; Subjective fever Allergies Active Allergy Reactions Severity Noted Date Comments Ciprofloxacin Hives 09/01/2017 Statins 11/15/2020 All statins Simvastatin 05/07/2006 Severe myalgia's documented as of this encounter (statuses as of 05/18/2023) Medications Medication Sig Dispensed Refills Start Date End Date Status ASPIRIN EC 81 MG PO TBECIndications:Coron johan atherosclerosis of [place] coronary artery Take one pill daily 100 3 07/20/2009 Active VITAMIN B-1 100 MG PO TABS 1 tab daily. 0 Active FOLIC ACID 400 MCG PO TABS daily 0 Active Cholecalciferol (VITAMIN D3) 2000 units Capsule Take 1 Capsule by mouth in the morning. 0 Active Acetaminophen 500 MG Oral Tablet Take 1 Tablet by mouth every 4 hours as needed for Pain. As needed 30 Tab 0 06/15/2018 Active cyclobenzaprine (FLEXERIL) 10 MG Tablet Take 1 Tab by mouth 3 times a day as needed for Muscle spasms. 20 Tab 1 06/21/2019 Active Additional Information Patient not taking.Reported on 11/17/2022 Ondansetron HCl 4 MG Oral Tablet (Zofran)Indications:N ausea without vomiting TAKE ONE TABLET BY MOUTH EVERY 6 HOURS NEEDED FOR NAUSEA. 30 Tab 0 01/29/2021 Active Isometheptene-Dichlor al-APAP 65-100-325 MG Oral Capsule Two at onset of migraine may repeat 1 every 1 hour maximum of 4 in 24 hours. Compounded formulation 30 Capsule 5 10/29/2021 Active Additional Information Patient not taking.Reported on 04/15/2023 Nitroglycerin 0.4 MG Sublingual Tablet Sublingual (Nitrostat) Place under the tongue 1 Tablet every 5 minutes as needed for Pain, Chest. up to 3 doses in 15 minutes 25 Tablet 11 12/02/2021 Active Spacer/Aero-Holding Chambers DeviceIndications:PETAL SHAPER HAND D exacerbation (HCC) Use with inhaler. 1 Each 0 08/02/2022 Active Additional Information Patient not taking.Reported on 04/15/2023 ProAir HFA 108 (90 Base) MCG/ACT Inhalation Aerosol SolutionIndications:C OPD exacerbation (HCC) Inhale 2 Puffs by mouth every 4 hours as needed for Wheezing. 18 g 1 08/02/2022 Active Additional Information Patient not taking.Reported on 04/15/2023 Isosorbide Mononitrate ER 60 MG Oral Tablet Extended Release 24 Hour (Imdur)Indications:Ex ertional angina TAKE ONE TABLET BY MOUTH DAILY 90 Tablet 3 08/11/2022 Active DULoxetine HCl 30 MG Oral Capsule Delayed Release Particles (Cymbalta)Indications :Current moderate episode of major depressive disorder, unspecified whether recurrent (HCC) 1 cap in AM and 2 caps in PM. Do not cut, crush or chew 270 Capsule 3 10/17/2022 Active Finasteride 5 MG Oral Tablet (Proscar) Take 1 Tablet by mouth in the morning. 90 Tablet 3 11/05/2022 Active Clopidogrel Bisulfate 75 MG Oral Tablet (pLAVix)Indications:A cute ischemic stroke (HCC) TAKE 1 TABLET BY MOUTH DAILY 90 Tablet 3 11/27/2022 Active Metoprolol Tartrate 25 MG Oral Tablet (Lopressor) Take 1 Tablet by mouth in the morning. 0 11/18/2022 Active Omeprazole 20 MG Oral Capsule Delayed Release (PriLOSEC) Take 1 Capsule by mouth in the morning. 90 Capsule 1 01/29/2023 Active levETIRAcetam 500 MG Oral Tablet (Keppra) 1 twice a day (dose increase) 180 Tablet 1 01/30/2023 Active Lasmiditan Succinate 50 MG Oral Tablet (Reyvow) Take one at onset of migraine. Max 1 dose in 24hours 10 Tablet 5 02/03/2023 Active Praluent 75 MG/ML Subcutaneous Solution Auto-injector (Alirocumab) Inject 75 mg (1 pen) under the skin every 14 days. 6 mL 3 03/03/2023 Active HYDROcodone-Acetamino phen 5-325 MG Oral TabletIndications:Chr onic bilateral low back pain with right-sided sciatica Take 1 Tablet by mouth 3 times a day as needed for Pain, Mild or Pain, Moderate. 30 day RX 90 Tablet 0 04/30/2023 Active Emgality 120 MG/ML Subcutaneous Solution Auto-injector (Galcanezumab-gnlm) Inject 2 ml (2 pens) under the skin for the first dose then 1 ml (1 pen) once a month thereafter 2 mL 0 05/04/2023 Active Tamsulosin HCl 0.4 MG Oral Capsule (Flomax)Indications:O bstructive uropathy TAKE 1 CAPSULE BY MOUTH EVERY OTHER DAY 45 Capsule 3 05/08/2023 Active Sulfamethoxazole-Trim ethoprim 800-160 MG Oral Tablet (Bactrim DS)Indications:Urinar y retention,Urinary incontinence, unspecified type,Subjective fever,Dysuria Take 1 Tablet by mouth in the morning and 1 Tablet before bedtime. Until gone.. 84 Tablet 0 05/18/2023 3 Active Hospital, Clinic, or Other Facility Administered Medication Ordered Dose Route Frequency Start Date End Date Status albuterol sulfate (PROVENTIL) (2.5 MG/3ML) 0.083% inhalation solution 2.5 mgIndications:COPD, severity to be determined (HCC) 2.5 mg NEBULIZER Q4H PRN 07/05/2019 Active documented as of this encounter (statuses as of 05/18/2023) Active Problems Problem Noted Date Hemiplegia and hemiparesis f ollowing unspecified cerebrovascular disease affecting right dominant side 04/12/2021 Recurrent major depressive disorder 03/25 Bradycardia 10/19/2020 Hemiplga following cerebral infrc aff ri ght dominant side 10/11/2019 Diabetes mellitus with peripheral angiop athy 10/11/2019 Acute ischemic stroke 10/11/2019 Other specified peripheral vascular dise ases 01/28/2019 Spondylosis, lumbar, with myelopathy 12/2018 DDD (degenerative disc disease), lumbar 11/26/2018 Chronic bilateral low back pain with rig ht-sided sciatica 11/23/2018 Coronary artery disease with exertional angina 06/29/2018 Hemiplegia, unspecified affecting right dominant side 06/29/2018 History of ischemic vertebrobasilar rivera ry thalamic stroke 08/03/2017 Urinary retention 07/13/2017 Aortic dissection, thoracic 07/11/2017 Senile osteoporosis 12/20/2015 MEDICATION USE AGREEMENT 11/30/2015 Overview: Managed by Dr. Terry Resendez. To view the Medication Usage Agreement, go to Action, Patient Files. 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 GENERAL OSTEOARTHROSIS 03/08/2004 IMPOTENCE, ORGANIC ORIGN 03/08/2004 Esophageal reflux 01/14/2002 CLASSICAL MIGRAINE WITHOU MENTION OF INT RACTABLE MIGRAINE 01/14/2002 CERVICAL DISC DISPLACMNT 01/14/2002 documented as of this encounter (statuses as of 05/18/2023) Resolved Problems Problem Noted Date Resolved Date RCA occlusion 07/11/2017 10/11/2019 Lumbar compression fracture 11/14/201510/23 Overview: L2 Acute chest pain 10/17/2015 06/29/2018 Obesity, Class I, BMI 30.0-34.9 (see actual BMI) 10/17/2015 02/02/2020 Overview: bmi= 32.49 10/17/15 Compression fracture of L2 lumbar vertebra 10/1606/29/2018 DIAZ (dyspnea on exertion) 06/22/20152016 Abnormal nuclear stress test 06/04/201501/2018 Exertional shortness of breath 05/31/2015 1 09/10/2016 Other chest pain 05/31/2015 06/22/2015 Colloid cyst of third ventricle 11/11/2013 04/15/2022 Sinus bradycardia 09/13/2013 11/20/2014 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 09/08/2013 08/03/2017 Hypertension goal BP (blood pressure) < 130/80 0 09/08/2013 11/11/2013 Acute ischemic VBA thalamic stroke, left 013 06/29/2018 Alcohol consuption of more than two drinks per d ay 08/02/2013 07/11/2017 Acute ischemic right ICA stroke 08/02/2013 09/08/2013 Hypertension goal BP (blood pressure) < 140/80 0 02/10/2013 09/08/2013 Multiple fractures of ribs of right side 013 06/29/2018 Numbness and tingling of right arm 10/26/2012 10/15/2020 Tobacco use disorder 10/26/2012 11/10/2013 Pain in limb 01/07/2012 11/23/2018 Backache 01/07/2012 06/29/2018 Chronic pain 01/07/2012 10/15/2020 TICK BITE, RIGHT LOWER BACK 06/30/201106/24 Benign neoplasm of colon 06/05/2009 018 Overview: adenomatous/repeat colonoscopy in 1 yr Dysfunction of eustachian tube 08/30/2008 0 10/15/2020 Dyslipidemia, goal to be determined 03/08/2004 08/01/2013 Tobacco use disorder 10/26/2012 documented as of this encounter (statuses as of 05/18/2023) Immunizations Name Administration Dates Next Due Pneumococcal Conjugate Vacc, 13 Valent (Prevnar) 04/11/2020 Pneumococcal Polysaccharide PPV23 (Pneumovax) 08/05/2013 Seasonal Influenza, PF, 6 mo ns & Above, IM , (Flulaval) 06/19/2017 Seasonal Influenza, Quadriva lent, No Preserve, IM 06/27/2015 Seasonal Influenza, Split, I IV3, With Preserve, Inj 06/29/2014,07/13/2013,06/22/2012,06/30 TDAP (age 10 and older)(Boostrix) 01/18/2016 documented as of this encounter Social History Tobacco Use Types Packs/Day Years Used Date Smoking Tobacco: Every Day Cigarettes 1 40 Smokeless Tobacco: Former Chew Alcohol Use Standard Drinks/Week Comments Yes 14 (1 standard drink = 0.6 oz pu re alcohol) 4-5 beers or more everyday Alcohol Habits Answer Date Recorded How often do you have a drink containing alcohol ? 2-3 times a week 12/27/2018 How many drinks containing a lcohol do you have on a typical day when you are drinking? Not asked How often do you have six or more drinks on one occasion? Not asked Sex Assigned at Date Recorded Male 11/23/2018 11:21 AM EDT Job Start Date Occupation Industry Not on file Not on file Not on file documented as of this encounter Functional Status Functional Status Response Date of Assess ment Are you deaf or do you have serious difficulty h earing? No 07/26/2017 Are you blind or do you have serious difficulty seeing, even when wearing glasses? No 07/26/2017 Do you have serious difficul ty walking or climbing stairs? (5 years old or older) No 07/26/2017 Do you have difficulty dress ing or bathing? (5 years old or older) No 07/26/2017 Because of a physical, menta l, or emotional condition, do you have difficulty doing errands alone such as visiting a doctor s office or shopping? (15 years old or older) Yes 07/26/20 17 Cognitive Status Response Date of Assessm ent Because of a physical, menta l, or emotional condition, do you have serious difficulty concentrating, remembering, or making decisions? (5 years old or older Yes 07/26/2017 documented as of this encounter Plan of Treatment Upcoming Encounters Date Type Specialty Care Team Description 06/15/2023 Laboratory Laboratory [facility] [address] [place] [address] 08/12/2023 Office Visit Cardiology Terry Garcia PA-C [address] [place] [address] 08/27/2023 Hospital Encounter Surgery Dat Narayanan MD [address] [place] [address] 08/27/2023 Surgery Surgery Dat Narayanan MD [address] [place] [address] COLONOSCOPY FLEXIBLE PROXIMAL DIAGNOSTIC 10/16/2023 Office Visit Family Medicine Terry Resendez MD [address] [place] [address] 10/22/2023 Office Visit Neurology Elsie Capone MD [address] [place] [address], [place] [address] Pending Results Name Type Priority Associated Diagnoses Date /Time HEMOGLOBIN A1C Lab Routine Type 2 diabetes mellitus with hemoglobin A1c goal of less than 7.0% (HCC) 05/18/2023 12:03 PM EDT COMPREHENSIVE METABOLIC PANEL Lab Routine Hemiplegia affecting right dominant side, unspecified etiology, unspecified hemiplegia type (HCC) 05/18/2023 12:03 PM EDT PSA Lab Routine Urinary retention 05/18/2023 12:03 PM EDT CBC WITH WBC DIFFERENTIAL AND ANEMIA REFLEX WORKUP Lab Routine Urinary retention Urinary incontinence, unspecified type Subjective fever 05/18/2023 12:03 PM EDT ANEMIA CBC Lab Routine Urinary retention Urinary incontinence, unspecified type Subjective fever 05/18/2023 12:03 PM EDT DIFFERENTIAL, AUTOMATED Lab Routine Urinary retention Urinary incontinence, unspecified type Subjective fever 05/18/2023 12:03 PM EDT ANEMIA REFLEX CHEMISTRY HOLD Lab Routine Urinary retention Urinary incontinence, unspecified type Subjective fever 05/18/2023 12:03 PM EDT Scheduled Procedures Name Priority Associated Diagnoses Date/Ti me COLONOSCOPY FLEXIBLE PROXIMAL DIAGNOSTIC History of colonic polyps 08/27/2023 9:41 AM EST Health Maintenance Due Date Last Done Comments DISCUSS TOBACCO CESSATION (REFER TO SMARTSET #3403) 1955 COVID-19 Vaccine (#1) 04[birth year]05/1956 Alpha-1 Antitrypsin 1972 Zoster Vaccines (1 of 2) 2004 *COPD SEVERITY VERIFIED BY PFT 08/22/2015 DXA Scan 11/27/2017 11/28/2015 *BISPHONATE OR OTHER ACCEPTABLE MEDICATION NEEDED FOR OSTEOPOROSIS (REFER TO SMARTSET #3376) 06/14/2018 AAA Screening 2019 Depression, Most Recent Score >= 10 (will fire each visit until score < 10) 06/14/2020 06/13/2020 Pneumococcal Vaccine: 65+ Years (3 - PPSV23 or PCV20) 04/11/2021 04/11/2020, 08/05/2013 DIABETES-EYE EXAM 01/29/2022 01/29/2021 COLONOSCOPY-EVERY 3 YRS AGES 18-100 04/05/2022 04/05/2019, 04/05/2019, 01/15/2016, Additional history exists HbA1c 04/16/2023 10/17/2022, 09/25, 10/11/2019, Additional history exists Influenza Vaccine (FLU shot) (#1) 2023 06/19/2017, 06/27/2015, 06/29/2014, Additional history exists Albumin/Creatinine Ratio 10/17/2023 023, 10/16/2021, 10/11/2019, Additional history exists Diabetic Foot Exam 10/17/2023 10/17/2022, 0 09/05/2020, 10/11/2019, Additional history exists B-12 11/18/2023 11/17/2022, 09/25, 10/16/2021, Additional history exists GFR 01/30/2024 01/29/2023, 10/23, 10/17/2022, Additional history exists O2 ASSESSMENT COMPLETED IN PAST YEAR FOR COPD 04/20/2024 04/20/2023 DTaP,Tdap,and Td Vaccines (2 - Td or Tdap) 01/17/2026 01/18/2016, 03/15/2004 VITAMIN D LEVEL ONCE IN A LIFETIME-USE SMARTSET# [id number] Completed 12/18/2015, 02/09/2015, 06/29/2014, Additional history exists LUNG CANCER SCREENING - USE SMARTSET 29637 Completed 06/20/2019, 07/25/2017, 07/11/2017, Additional history exists GARDASIL-HPV IMMUNIZATION SERIES Aged Out No longer eligible based on patient's age to complete this topic Hepatitis B Aged Out No longer eligi ble based on patient's age to complete this topic MENINGOCOCCAL (MENACTRA/MENVEO) Aged Out No longer eligible based on patient's age to complete this topic documented as of this encounter Medical Devices Implanted Type Area Laboratory Equipment Installer Device Identifier Shelf Expiration Date Model / Serial / Lot Stent Carotid [id number] - [id number] Implanted:Qty: 1 on 08/23/2013 [place] [facility] [place] Carotid [facility] 02/21/2016 [id number] / / [id number] documented as of this encounter Visit Diagnoses Diagnosis Type 2 diabetes mellitus with hemoglobin A1c goal of less than 7.0% (HCC) Hemiplegia affecting right dominant side, unspecified etiology, unspecified hemiplegia type (HCC) Urinary retention Retention of urine, unspecified Urinary incontinence, unspecified type Subjective fever History of colonic polyps Personal history of colonic polyps documented in this encounter Advance Directives Latest Code Status on File Code Status Date Activated Date Inactivated Comments Full Code 07/26/2017 6:55 PM 07/27/2017 8:00 PM This order reflects the patients wishes and were consensually agreed upon. Question Answer Comments Discussion of Advance Directives occurred with: Patient Does the patient have a Living Will? No Does the patient have Health Care Power of Tractor Trailer Operator? No Code Status History Code Status Date Activated Date Inactivated Comments Full Code 07/10/2017 5:59 PM 07/13/2017 3:18 PM Thi s order reflects the patients wishes and were consensually agreed upon. Question Answer Comments Discussion of Advance Directives occurred with: Patient/Family Does the patient have a Living Will? Yes, not currently available Does the patient have Health Care Power of Tractor Trailer Operator? No Full Code 08/23/2013 8:39 AM 08/24/2013 2:49 PM This order reflects the patients wishes and were consensually agreed upon. Full Code 08/02/2013 7:49 PM 08/06/2013 12:55 AM Th is order reflects the patients wishes and were consensually agreed upon. Question Answer Comments Discussion of Advance Directives occurred with: Patient/Family Care Teams Bond Manager Relationship Specialty Start Date End Date Terry Resendez MD [address] [place] [address] PCP - General 04/07/1996 documented as of this encounter
--- OUTSIDE RECORDS SUMMARY | 2023-07-11 10:11 | External Medical Summary | Summary of Care ---
Author Name Unknown Organization [facility] Address [address] [place] [address] Phone [phone] Care Team Providers Care Equipment Tester Name Role Phone Terry Resendez MD Primary Care Provider [phone] Reason for Visit * Reason Comments eRx-Medication Refill Encounter Details Date Type Department Care Team (Late st Contact Info) Description 06/24/2023 Refill [place] [address] [place] [address] Nichole Guido MD [address] [place] [address] Urinary retention; Urinary incontinence, unspecified type; Subjective fever; Dysuria Allergies Active Allergy Reactions Criticality Noted Date Comments Ciprofloxacin Hives 09/01/2017 Statins 11/15/2020 All statins Simvastatin 05/07/2006 Severe myalgia's documented as of this encounter (statuses as of 06/26/2023) Medications Medication Sig Dispensed Refills Start Date End Date Status ASPIRIN EC 81 MG PO TBECIndications:Coron johan atherosclerosis of mo[place] coronary artery Take one pill daily 100 [...] 25 Tablet 11 12/02/2021 Active Spacer/Aero-Holding Chambers DeviceIndications:MANAGING PRINCIPAL D exacerbation (HCC) Use with inhaler. 1 [...] 14 days. 6 mL 3 03/03/2023 Active Emgality 120 MG/ML Subcutaneous Solution Auto-injector [...] gone.. 84 Tablet 0 05/18/2023 3 Active HYDROcodone-Acetamino phen 5-325 MG Oral TabletIndications:Chr onic bilateral low back pain with right-sided sciatica Take 1 Tablet by mouth 3 times a day as needed for Pain, Mild or Pain, Moderate. 30 day RX 90 Tablet 0 06/01/2023 Active Hospital, Clinic, or Other Facility Administered Medication Ordered Dose Route Frequency Start Date End Date Status albuterol sulfate (PROVENTIL) (2.5 MG/3ML) 0.083% inhalation solution 2.5 mgIndications:COPD, severity to be determined (HCC) 2.5 mg NEBULIZER Q4H PRN 07/05/2019 Active documented as of this encounter (statuses as of 06/26/2023) Active Problems Problem Noted Date Diagnosed Date Hemiplegia and hemiparesis f ollowing unspecified cerebrovascular disease affecting right dominant side 04/12/2021 Recurrent major depressive disorder 04/12/2021 Bradycardia 10/19/2020 Hemiplga following cerebral infrc aff right bro[place] nant side 10/11/2019 Diabetes mellitus with peripheral angiopathy Acute ischemic stroke 10/11/2019 Other specified peripheral vascular diseases 02/2019 Spondylosis, lumbar, with myelopathy 11/26/2018 DDD (degenerative disc disease), lumbar 11/27/19 19 Chronic bilateral low back pain with right-sided sciatica 11/23/2018 Coronary artery disease with exertional angina 1 08/29/2017 Hemiplegia, unspecified affecting right dominant side 06/29/2018 History of ischemic vertebrobasilar artery thala janis stroke 08/03/2017 Urinary retention 07/13/2017 Aortic dissection, thoracic 07/11/2017 Senile osteoporosis 12/20/2015 MEDICATION USE AGREEMENT 11/30/2015 Overview: Managed by Dr. Terry Resendez. To view the Medication Usage Agreement, go to Action, Patient Files. 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 GENERAL OSTEOARTHROSIS 03/08/2004 IMPOTENCE, ORGANIC ORIGN 03/08/2004 Esophageal reflux 01/14/2002 CLASSICAL MIGRAINE WITHOU MENTION OF INTRACTABLE MIGRAINE 01/14/2002 CERVICAL DISC DISPLACMNT 01/14/2002 documented as of this encounter (statuses as of 06/26/2023) Resolved Problems Problem Noted Date Diagnosed Date Resolved Date RCA occlusion 07/11/2017 10/11/2019 Lumbar compression fracture 11/14/2015 11/14/2015 Overview: L2 Acute chest pain 10/17/2015 06/29/2018 Obesity, Class I, BMI 30.0-3 4.9 (see actual BMI) 10/17/2015 02/02/2020 Overview: bmi= 32.49 10/17/15 Compression fracture of L2 lumbar vertebra 10/16/2015 06/29/2018 DIAZ (dyspnea on exertion) 06/22/2015 Abnormal nuclear stress test 06/04/2015 06/29/2018 Exertional shortness of breath 05/31/2015 07/11/2017 Other chest pain 05/31/2015 06/22/2015 Colloid cyst of third ventricle 11/11/2013 04/15/2022 Sinus bradycardia 09/13/2013 11/20/2014 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 09/08/2013 08/03/2017 Hypertension goal BP (blood pressure) < 130/80 09/08/2013 11/11/2013 Acute ischemic VBA thalamic stroke, left 08/04/2013 06/29/2018 Alcohol consuption of more t matias two drinks per day 08/02/2013 07/11/2017 Acute ischemic right ICA stroke 08/02/2013 09/08/2013 Hypertension goal BP (blood pressure) < 140/80 02/10/2013 09/08/2013 Multiple fractures of ribs of right side 02/10/2013 06/29/2018 Numbness and tingling of right arm 10/26/2012 10/15/2020 Tobacco use disorder 10/26/2012 014 Pain in limb 01/07/2012 11/23/2018 Backache 01/07/2012 06/29/2018 Chronic pain 01/07/2012 10/15/2020 TICK BITE, RIGHT LOWER BACK 06/30/2011 07/11/2017 Benign neoplasm of colon 06/05/200901/2018 Overview: adenomatous/repeat colonoscopy in 1 yr Dysfunction of eustachian tube 08/30/2008 10/15/2020 Dyslipidemia, goal to be determined 03/08/2004 08/01/2013 Tobacco use disorder 013 documented as of this encounter (statuses as of 06/26/2023) Immunizations Name Administration Dates Next Due Pneumococcal Conjugate Vacc, 13 Valent (Prevnar) 04/11/2020 Pneumococcal Polysaccharide PPV23 (Pneumovax) 08/05/2013 SEASONAL INFLUENZA, PF, 6 M & Above, IM , (FLULAVAL or FLUZONE) 06/19/2017 Seasonal Influenza, Quadriva lent, No Preserve, [...] re alcohol) 4-5 beers or more everyday Sex and Gender Information Value Date Recorded Sex Assigned at Male 11/23/2018 11:21 AM EDT Gender Identity Male 11/23/2018 11:21 AM EDT Sexual Orientation Straight 11/23/2018 11 :21 AM EDT Job Start Date Occupation Industry [...] Yes 07/26/2017 documented as of this encounter Miscellaneous Notes * Telephone Encounter - Nichole Guido MD - 06/26/2023 8:38 AM EDT Refused Prescriptions: Disp Refills Sulfamethoxazole-Trimethoprim 800-160 MG O*84 Tab*0 Sig: TAKE ONE TABLET BY MOUTH IN THE MORNING AND ONE TABLET BEFORE BEDTIME UNTIL GONERefused By: DAI GUIDO for Refusal: Refill Not Appropriate * Telephone Encounter - Nichole Guido MD - 06/26/2023 8:38 AM EDT See rodrigo G Your bactrim antibiotic is not being refilled because you are to be on it only for 6 weeks. Please arrange for a sooner appt with your urologist - I see that you cancelled the May 27 appt. Did you seeanother urologist? It is very important that you see a urologist. Dr. Lyons * Telephone Encounter - Interface, [facility] - 06/26/2023 6:02 AM EDT Pending Prescriptions: Disp Refills Sulfamethoxazole-Trimethoprim 800-160 MG O*84 Tab*0 Sig: TAKE ONE TABLET BY MOUTH IN THE MORNING AND ONE TABLET BEFORE BEDTIME UNTIL GONE * Telephone Encounter - Prince Dorado [facility] - 06/24/2023 7:54 PM EDT Pending Prescriptions: Disp Refills Sulfamethoxazole-Trimethoprim 800-160 MG O*84 Tab*0 Sig: TAKE ONE TABLET BY MOUTH IN THE MORNING AND ONE TABLET BEFORE BEDTIME UNTIL GONE * Telephone Encounter - Prince Dorado [facility] - 06/24/2023 7:53 PM EDT [facility] is currently not authorized to approve refills for the pended medication(s) per refill protocol. Please approve if appropriate. Thanks, Prince Dorado, PharmD Clinical Pharmacist [facility](formerly telepharmacy) [phone] 06/24/2023, 7:53 PM documented in this encounter Plan of Treatment Upcoming Encounters Date Type Department Care Team (Latest Contact Info) Description 08/12/2023 1:00 PM EST Office Visit Cardiology, [facility] [address] [address] Terry Garcia PASherleyC [address] [address] 08/27/2023 9:41 AM EST Hospital Encounter OR [facility], Operating Room, [facility] - 4th Floor [address] [place] [address] [address] Dat Narayanan MD [address] [place] [address] 08/27/2023 9:41 AM EST - 08/27/2023 10:19 AM EST Surgery OR [facility], Operating Room, [facility] - 4th Floor [address] [facility] [place] [address] Dat Narayanan MD [address] [place] [address] COLONOSCOPY FLEXIBLE PROXIMAL DIAGNOSTIC 10/16/2023 2:00 PM EST Office Visit [facility] [address] [place] [phone] Terry Resendez MD [address] [place] [address] 10/22/2023 1:00 PM EST Office Visit Neurology [facility] [address] [facility] [place] [address] Elsie Capone MD [address] [facility] [place] [address] 10/23/2023 3:45 PM EST Office Visit Urology, [facility] [address] [facility] [place] [address] Mauricio Ramos MD [address] [address] [place] [address] Scheduled Procedures Name Priority Associated Diagnoses Date/Ti me COLONOSCOPY FLEXIBLE PROXIMAL DIAGNOSTIC History of colonic polyps 08/27/2023 9:41 AM EST Health Maintenance Due Date Last Done Comments DISCUSS TOBACCO CESSATION (REFER TO SMARTSET #6743) 1955 COVID-19 Vaccine (#1) 04[birth year]05/1956 Alpha-1 Antitrypsin 1972 Zoster Vaccines (1 of 2) 2004 Hepatitis B (1 of 3 - Risk 3-dose series) 2014 *COPD SEVERITY VERIFIED BY PFT 08/22/2015 DXA Scan 11/27/2017 11/28/2015 *BISPHONATE OR OTHER ACCEPTABLE MEDICATION NEEDED FOR OSTEOPOROSIS (REFER TO SMARTSET #4746) 06/14/2018 AAA Screening 2019 Depression, Most Recent Score >= 10 (will fire each visit until score < 10) 06/14/2020 06/13/2020 Pneumococcal Vaccine: 65+ Years (3 - PPSV23 or PCV20) 04/11/2021 04/11/2020, 08/05/2013 Diabetic Eye Exam 01/29/2022 01/29/2021 COLONOSCOPY-EVERY 3 YRS AGES 18-100 04/05/2022 04/05/2019, 04/05/2019, 01/15/2016, Additional history exists Influenza Vaccine (FLU shot) (#1) 2023 06/19/2017, 06/27/2015, 06/29/2014, Additional history exists Albumin/Creatinine Ratio 10/17/2023 023, 10/16/2021, 10/11/2019, Additional history exists Diabetic Foot Exam 10/17/2023 10/17/2022, 0 09/05/2020, 10/11/2019, Additional history exists HbA1c 11/16/2023 05/18/2023, 09/25, 10/16/2021, Additional history exists B-12 11/18/2023 11/17/2022, 09/25, 10/16/2021, Additional history exists GFR 05/18/2024 05/18/2023, 06/0 03/2023, 11/17/2022, Additional history exists O2 ASSESSMENT COMPLETED IN PAST YEAR FOR COPD 05/18/2024 05/18/2023 DTaP,Tdap,and Td Vaccines (2 - Td or Tdap) 01/17/2026 01/18/2016, 03/15/2004 VITAMIN D LEVEL ONCE IN A LIFETIME-USE SMARTSET# [id number] Completed 12/18/2015, 02/09/2015, 06/29/2014, Additional history exists LUNG CANCER SCREENING - USE SMARTSET 23025 Completed 06/20/2019, 07/25/2017, 07/11/2017, Additional history exists GARDASIL-HPV IMMUNIZATION SERIES Aged Out No longer eligible based on patient's age to complete this topic MENINGOCOCCAL (MENACTRA/MENVEO) Aged Out No longer eligible based on patient's age to complete this topic documented as of this encounter Medical Devices Implanted Type Area Head Charrer Device Identifier Shelf Expiration Date Model / Serial / Lot Stent Carotid [id number] - [id number] Implanted:Qty: 1 on 08/23/2013 at OR [facility] [place] Right: Carotid [facility] VASCULAR DEVICES 02/21/2016 [id number] / / [id number] documented as of this encounter Visit Diagnoses Diagnosis Urinary retention Retention of urine, unspecified Urinary incontinence, unspecified type Subjective fever Dysuria History of colonic polyps Personal history of [...] the patient have Health Care Power of [place]? No Code Status History Code Status Date Activated Date Inactivated Comments Full Code 07/10/2017 5:59 PM 07/13/2017 3:18 PM Thi s order reflects the patients wishes and were consensually agreed upon. Question Answer Comments Discussion of Advance Directives occurred with: Patient/Family Does the patient have a Living Will? Yes, not currently available Does the patient have Health Care Power of Crown [place]? No Full Code 08/23/2013 8:39 AM 08/24/2013 2:49 PM This order reflects the patients wishes and were consensually agreed upon. Full Code 08/02/2013 7:49 PM 08/06/2013 12:55 AM T his order reflects the patients wishes and were consensually agreed upon. Question Answer Comments Discussion of Advance Directives occurred with: Patient/Family Care Teams Equipment Tester Relationship Specialty Start Date End Date Terry Resendez MD [address] [place] [facility] [place] [address] PCP - General 04/07/1996 documented as of this encounter
--- OUTSIDE RECORDS SUMMARY | 2023-07-11 10:11 | External Medical Summary | Summary of Care ---
Author Name Unknown Organization [facility] Address [address] [place] [address] Phone [phone] Care Team Providers Care Brim Shaper Name Role Phone Sam Resendez MD Primary Care Provider [phone] Reason for Visit * Reason Onset Date Comments Medication Refill 06/30/2023 Encounter Details Date Type Department Care Team (Late st Contact Info) Description 06/30/2023 Refill [id number] [place] [address] Sam Resendez MD [address] [place] [address] Chronic bilateral low back pain with right-sided sciatica Allergies Active Allergy Reactions Criticality Noted Date Comments Ciprofloxacin Hives 09/01/2017 Statins 11/15/2020 All statins Simvastatin 05/07/2006 Severe myalgia's documented as of this encounter (statuses as of 07/01/2023) Medications Medication Sig Dispensed Refills Start Date End Date Status ASPIRIN EC 81 MG PO TBECIndications:Esther nary atherosclerosis of [place] coronary artery Take one pill daily 100 3 9 Active VITAMIN B-1 100 MG PO TABS 1 tab daily. 0 Active FOLIC ACID 400 MCG PO TABS daily 0 Active Cholecalciferol (VITAMIN D3) 2000 units Capsule Take 1 Capsule by mouth in the morning. 0 Active Acetaminophen 500 MG Oral Tablet Take 1 Tablet by mouth every 4 hours as needed for Pain. As needed 30 Tab 0 8 Active cyclobenzaprine (FLEXERIL) 10 MG Tablet Take 1 Tab by mouth 3 times a day as needed for Muscle spasms. 20 Tab 1 9 Active Additional Information Patient not taking.Reported on 11/17/2022 Ondansetron HCl 4 MG Oral Tablet (Zofran)Indications: Nausea without vomiting TAKE ONE TABLET BY MOUTH EVERY 6 HOURS NEEDED FOR NAUSEA. 30 Tab 0 1 Active Isometheptene-Dichlo ral-APAP 65-100-325 MG Oral Capsule Two at onset of migraine may repeat 1 every 1 hour maximum of 4 in 24 hours. Compounded formulation 30 Capsule 5 2 Active Additional Information Patient not taking.Reported on 04/15/2023 Nitroglycerin 0.4 MG Sublingual Tablet Sublingual (Nitrostat) Place under the tongue 1 Tablet every 5 minutes as needed for Pain, Chest. up to 3 doses in 15 minutes 25 Tablet 11 2 Active Spacer/Aero-Holding Chambers DeviceIndications:CO PD exacerbation (HCC) Use with inhaler. 1 Each 0 2 Active Additional Information Patient not taking.Reported on 04/15/2023 ProAir HFA 108 (90 Base) MCG/ACT Inhalation Aerosol SolutionIndications: COPD exacerbation (HCC) Inhale 2 Puffs by mouth every 4 hours as needed for Wheezing. 18 g 1 2 Active Additional Information Patient not taking.Reported on 04/15/2023 Isosorbide Mononitrate ER 60 MG Oral Tablet Extended Release 24 Hour (Imdur)Indications:E xertional angina TAKE ONE TABLET BY MOUTH DAILY 90 Tablet 3 2 Active DULoxetine HCl 30 MG Oral Capsule Delayed Release Particles (Cymbalta)Indication s:Current moderate episode of major depressive disorder, unspecified whether recurrent (HCC) 1 cap in AM and 2 caps in PM. Do not cut, crush or chew 270 Capsule 3 3 Active Finasteride 5 MG Oral Tablet (Proscar) Take 1 Tablet by mouth in the morning. 90 Tablet 3 3 Active Clopidogrel Bisulfate 75 MG Oral Tablet (pLAVix)Indications: Acute ischemic stroke (HCC) TAKE 1 TABLET BY MOUTH DAILY 90 Tablet 3 3 Active Metoprolol Tartrate 25 MG Oral Tablet (Lopressor) Take 1 Tablet by mouth in the morning. 0 3 Active Omeprazole 20 MG Oral Capsule Delayed Release (PriLOSEC) Take 1 Capsule by mouth in the morning. 90 Capsule 1 3 Active levETIRAcetam 500 MG Oral Tablet (Keppra) 1 twice a day (dose increase) 180 Tablet 1 3 Active Lasmiditan Succinate 50 MG Oral Tablet (Reyvow) Take one at onset of migraine. Max 1 dose in 24hours 10 Tablet 5 3 Active Praluent 75 MG/ML Subcutaneous Solution Auto-injector (Alirocumab) Inject 75 mg (1 pen) under the skin every 14 days. 6 mL 3 3 Active Emgality 120 MG/ML Subcutaneous Solution Auto-injector (Galcanezumab-gnlm) Inject 2 ml (2 pens) under the skin for the first dose then 1 ml (1 pen) once a month thereafter 2 mL 0 3 Active Tamsulosin HCl 0.4 MG Oral Capsule (Flomax)Indications: Obstructive uropathy TAKE 1 CAPSULE BY MOUTH EVERY OTHER DAY 45 Capsule 3 3 Active HYDROcodone-Acetamin ophen 5-325 MG Oral TabletIndications:Ch ronic bilateral low back pain with right-sided sciatica Take 1 Tablet by mouth 3 times a day as needed for Pain, Mild or Pain, Moderate. 30 day RX 90 Tablet 0 3 Active HYDROcodone-Acetamin ophen 5-325 MG Oral TabletIndications:Ch ronic bilateral low back pain with right-sided sciatica Take 1 Tablet by mouth 3 times a day as needed for Pain, Mild or Pain, Moderate. 30 day RX 90 Tablet 0 3 06/30/20 23 Discontinu ed(Refill) Hospital, Clinic, or Other Facility Administered Medication Ordered Dose Route Frequency Start Date End Date Status albuterol sulfate (PROVENTIL) (2.5 MG/3ML) 0.083% inhalation solution 2.5 mgIndications:COPD, severity to be determined (HCC) 2.5 mg NEBULIZER Q4H PRN 07/05/2019 Active documented as of this encounter (statuses as of 07/01/2023) Active Problems Problem Noted Date Diagnosed Date [...] USE AGREEMENT 11/30/2015 Overview: Managed by Dr. Sam Resendez. To view the Medication Usage Agreement, [...] as of this encounter (statuses as of 07/01/2023) Resolved Problems Problem Noted Date Diagnosed Date [...] as of this encounter (statuses as of 07/01/2023) Immunizations Name Administration Dates Next Due Pneumococcal [...] re alcohol) 4-5 beers or more everyday AUDIT-C Answer Date Recorded Frequency of Alcohol Consumption 2-3 times a wee k 12/27/2018 Average Number of Drinks Not on file 019 Frequency of Binge Drinking Not on file 01/2019 PHQ-2 Answer Date Recorded PHQ-2 Score 17 06/13/2020 Sex and Gender Information Value Date Recorded [...] encounter Miscellaneous Notes * Telephone Encounter - Sam Resendez MD - 07/01/2023 8:13 PM ESTSigned Prescriptions: Disp Refills HYDROcodone-Acetaminophen 5-325 MG Oral Ta*90 Tab*0 Sig: Take 1 Tablet by mouth 3 times a day as needed for Pain, Mild or Pain, Moderate. 30 day RX Authorizing Provider: SAM RESENDEZ * [facility] 10[facility]30 AM ESTPending Prescriptions: Disp Refills HYDROcodone-Acetaminophen 5-325 MG Oral Ta*90 Tab*0 Sig: Take 1 Tablet by mouth 3 times a day as needed for Pain, Mild or Pain, Moderate. 30 day RX * Telephone Encounter - Danielito Gonsalves [facility] - 07/01/2023 10:29 AM EST I have reviewed the patients controlled substance dispensing history in the Prescription Drug Monitoring Program in compliance with the [facility] regulations before prescribing a controlled substance. PDMP checked on 07/01/2023. Pending Prescriptions: Disp Refills HYDROcodone-Acetaminophen 5-325 MG Oral T*90 Tab*0 Sig: Take 1 Tablet by mouth 3 times a day as needed for Pain, Mild or Pain, Moderate. 30 day RX Last Visit: 05/18/2023 (in office), Visit date not found (telemedicine) Next Visit: 10/16/2023 Date medication was last filled: 06/01/23 Date medication is due for refill: 06/30/23 Pharmacy: [id number] Is this request for a controlled substance? Yes and Urine Drug Screen Not completed Toxicology results: Results for orders placed or performed in visit on 11/23/18 TOX SCREEN, URINE, W/O CONFIRMATION Result Value Amphetamine NEGATIVE Barbiturates NEGATIVE Benzodiazepines NEGATIVE Cannabinoids NEGATIVE Cocaine Metabolite NEGATIVE Morphine / Codeine NEGATIVE METHADONE METABOLITE NEGATIVE OXYCODONE NEGATIVE NOTE: THE ABOVE SCREENING RESULTS ARE PRESUMPTIVE AND CAN ONLY BE USED FOR MEDICAL PURPOSES. CONFIRMATORY TESTING IS AVAILABLE UPON REQUEST. Cutoff Concentration *Note: Due to a large number of results and/or encounters for the requested time period, some results have not been displayed. A complete set of results can be found in Results Review. Please approve if appropriate. Thank You, Danielito De Jesus [facility] Clinical Pharmacist Centralized Clinical Pharmacy Services (CCPS) (formerly Telepharmacy) 07/01/2023, 10:29 AM documented in this encounter Plan of Treatment Upcoming Encounters Date Type Department Care Team (Latest Contact Info) Description 08/12/2023 1:00 PM EST Office Visit Cardiology, [facility] [address] [address] Sam Garcia PA-C [address] [address] 08/27/2023 9:41 AM EST Hospital Encounter OR [facility], Operating Room, [facility] - 4th Floor [address] [place], [place] [address] [address] Dat Narayanan MD [address] [place] [address] 08/27/2023 9:41 AM EST - 08/27/2023 10:19 AM EST Surgery OR [facility], Operating Room, [facility] - 4th Floor [address] [facility] [place] [address] Dat Narayanan MD [address] [place] [address] COLONOSCOPY FLEXIBLE PROXIMAL DIAGNOSTIC 10/16/2023 2:00 PM EST Office Visit Family [facility] [address] [place] [id number] Sam Resendez MD [address] [place] [address] 10/22/2023 1:00 PM EST Office Visit Neurology [facility] [address] [facility] [place] [address] Elsie Capone MD [address] [facility] [place] [address] 10/23/2023 3:45 PM EST Office Visit Urology, [facility] [address] [facility] [place] [address] Mauricio Ramos MD [address] [address] [place] [address] Scheduled Procedures Name Priority Associated Diagnoses Date/Ti me COLONOSCOPY FLEXIBLE PROXIMAL DIAGNOSTIC History of colonic polyps 08/27/2023 9:41 AM EST Health Maintenance Due Date Last Done Comments DISCUSS TOBACCO CESSATION (REFER TO SMARTSET #0094) 1954 COVID-19 Vaccine (#1) 04/05/1955 Alpha-1 Antitrypsin 1972 Zoster Vaccines (1 of 2) 2004 Hepatitis B (1 of 3 - Risk 3-dose series) 2014 *COPD SEVERITY VERIFIED BY PFT 08/22/2015 DXA Scan 11/27/2017 11/28/2015 *BISPHONATE OR OTHER ACCEPTABLE MEDICATION NEEDED FOR OSTEOPOROSIS (REFER TO SMARTSET #1146) 06/14/2018 AAA Screening 2019 Depression, Most Recent [...] 10/11/2019, Additional history exists HbA1c 11/16/2023 05/18/2023, 2 11/2022, 10/16/2021, Additional history exists B-12 11/18/2023 11/17/2022, 2 11/2022, 10/16/2021, Additional history exists GFR 05/18/2024 05/18/2023, 06/0 03/2023, 11/17/2022, Additional history exists O2 ASSESSMENT COMPLETED IN PAST YEAR FOR COPD 05/18/2024 05/18/2023 DTaP,Tdap,and Td Vaccines (2 - Td or Tdap) 01/17/2026 01/18/2016, 03/15/2004 VITAMIN D LEVEL ONCE IN A LIFETIME-USE SMARTSET# [id number] Completed 12/18/2015, 02/09/2015, 06/29/2014, Additional history exists LUNG CANCER SCREENING - USE SMARTSET 48927 Completed 06/20/2019, 07/25/2017, 07/11/2017, Additional history exists GARDASIL-HPV IMMUNIZATION SERIES Aged Out No longer eligible based on patient's age to complete this topic MENINGOCOCCAL (MENACTRA/MENVEO) Aged Out No longer eligible based on patient's age to complete this topic documented as of this encounter Medical Devices Implanted Type Area Simulation Tech Device Identifier Shelf Expiration Date Model / Serial / Lot Stent Carotid [id number] [id number] - [id number] Implanted:Qty: 1 on 08/23/2013 at OR [facility] [place] Right: Carotid [facility] : VASCULAR DEVICES 02/21/2016 [id number] / / [id number] documented as of this encounter Visit Diagnoses Diagnosis Chronic bilateral low back pain with right-sided sciatica History of colonic polyps Personal history of [...] the patient have Health Care Power of Pediatric Pathologist? No Code Status History Code Status Date Activated Date Inactivated Comments Full Code 07/10/2017 5:59 PM 07/13/2017 3:18 PM Thi s order reflects the patients wishes and were consensually agreed upon. Question Answer Comments Discussion of Advance Directives occurred with: Patient/Family Does the patient have a Living Will? Yes, not currently available Does the patient have Health Care Power of Pediatric Pathologist? No Full Code 08/23/2013 8:39 AM 08/24/2013 2:49 PM This order reflects the patients wishes and were consensually agreed upon. Full Code 08/02/2013 7:49 PM 08/06/2013 12:55 AM Th is order reflects the patients wishes and were consensually agreed upon. Question Answer Comments Discussion of Advance Directives occurred with: Patient/Family Care Teams Brim Shaper Relationship Specialty Start Date End Date Sam Resendez MD [address] [place] [address] PCP - General 04/07/1996 documented as of this encounter
--- OUTSIDE RECORDS SUMMARY | 2023-07-11 10:11 | External Medical Summary | Summary of Care ---
Author Name Unknown Organization [facility] Address [address] [place] [address] Phone [phone] Care Team Providers Care Bone Char Kiln Tender Name Role Phone Terry Resendez MD Primary Care Provider [phone] Reason for Visit * Reason Onset Date Comments Precert In Process 06/10/2023 18 LT GWENDOLYN CRIPT REYVOW Encounter Details Date Type Department Care Team Description 06/10/[address] [facility] [address] [place] [address] Elsie Capone MD [address] [place] [address] Precert In Process (18 LT SILVERSCRIPT SHAYY... Allergies Active Allergy Reactions Severity Noted Date Comments Ciprofloxacin Hives 09/01/2017 Statins 11/15/2020 All statins Simvastatin 05/07/2006 Severe myalgia's documented as of this encounter (statuses as of 06/10/2023) Medications Medication Sig Dispensed Refills Start Date End Date Status ASPIRIN EC 81 MG PO TBECIndications:Coron johan atherosclerosis of [place] coronary artery Take one pill daily 100 [...] 25 Tablet 11 12/02/2021 Active Spacer/Aero-Holding Chambers DeviceIndications:NURSE CASE MANAGEMENT D exacerbation (HCC) Use with inhaler. 1 [...] as of this encounter (statuses as of 06/10/2023) Active Problems Problem Noted Date Hemiplegia and [...] as of this encounter (statuses as of 06/10/2023) Resolved Problems Problem Noted Date Resolved Date RCA occlusion 07/11/2017 10/11/2019 Lumbar compression fracture 11/14/2015 03/10/2015 Overview: L2 Acute chest pain 10/17/2015 06/29/2018 [...] as of this encounter (statuses as of 06/10/2023) Immunizations Name Administration Dates Next Due Pneumococcal Conjugate Vacc, 13 Valent (Prevnar) 04/11/2020 Pneumococcal Polysaccharide PPV23 (Pneumovax) 08/05/2013 SEASONAL INFLUENZA, PF, 6 M & Above, IM , (FLULAVAL or FLUZONE) 06/19/2017 Seasonal Influenza, Quadriva lent, No Preserve, IM 06/27/2015 Seasonal Influenza, Split, I IV3, With Preserve, Inj 06/29/2014,07/13/2013,06/22/2012,06/30,07/24/1999 TD - Tetanus/Diptheria (ADULT) 03/15/2004 TDAP (age 10 and older)(Boostrix) 01/18/2016 documented [...] encounter Miscellaneous Notes * Telephone Encounter - ZACHARY Arias - 06/10/2023 10:16 AM EDT Neurology Pre-Cert Request Medication/Disease State Information: Medication: Reyvow 50 mg- 1 tab at onset of migraine. Max 1 dose in 24 hours Diagnosis (including ICD-10): Migraine - Chronic Migraine G43.709 - Self- administered - route pre-cert request to [id number] See corresponding visit note(s) for additional supporting clinical information. Office Information: Prescriber: Elsie Capone MD documented in this encounter Plan of Treatment Upcoming Encounters Date Type Specialty Care Team Description 06/15/2023 Laboratory Laboratory [address] [address] 08/12/2023 Office Visit Cardiology Terry Garcia PA-C [address] [place] [address] 08/27/2023 Hospital Encounter Surgery Dat Narayanan MD [address] [place] [address] 08/27/2023 Surgery Surgery Dat Narayanan MD [address] [place] [address] COLONOSCOPY FLEXIBLE PROXIMAL DIAGNOSTIC 10/16/2023 Office Visit Family Medicine Terry Resendze MD [address] [place] [address] 10/20/2023 Office Visit Urology Mauricio Ramos MD [address] [facility] [address] [place] [address] 10/22/2023 Office Visit Neurology Elsie Capone MD [address] [place], [place] [id number] Scheduled Procedures Name Priority Associated Diagnoses Date/Ti me COLONOSCOPY FLEXIBLE PROXIMAL DIAGNOSTIC History of colonic polyps 08/27/2023 9:41 AM EST Health Maintenance Due Date Last Done Comments DISCUSS TOBACCO CESSATION (REFER TO SMARTSET #0487) 1955 COVID-19 Vaccine (#1) 04/05/1955 Alpha-1 Antitrypsin [...] D LEVEL ONCE IN A LIFETIME-USE SMARTSET# [id number] Completed 12/18/2015, 02/09/2015, 06/29/2014, Additional history exists LUNG CANCER SCREENING - USE SMARTSET [id number] Completed 06/20/2019, 07/25/2017, 07/11/2017, Additional history exists [...] this encounter Medical Devices Implanted Type Area Steel Crane Operator Device Identifier Shelf Expiration Date Model / Serial / Lot Stent Carotid [id number] [id number] - [id number] Implanted:Qty: 1 on 08/23/2013 at [place] [facility] [place] Right: Carotid [facility] VASCULAR DEVICES 02/21/2016 [id number] / / [id number] documented as of this encounter Advance Directives Latest Code Status on File Code Status Date Activated Date Inactivated Comments Full Code 07/26/2017 6:55 PM 07/27/2017 8:00 PM This order reflects the patients wishes and were consensually agreed upon. Question Answer Comments Discussion of Advance Directives occurred with: Patient Does the patient have a Living Will? No Does the patient have Health Care Power of Wharf Tally Clerk? No Code Status History Code Status Date Activated Date Inactivated Comments Full Code 07/10/2017 5:59 PM 07/13/2017 3:18 PM Thi s order reflects the patients wishes and were consensually agreed upon. Question Answer Comments Discussion of Advance Directives occurred with: Patient/Family Does the patient have a Living Will? Yes, not currently available Does the patient have Health Care Power of Wharf Tally Clerk? No Full Code 08/23/2013 8:39 AM 08/24/2013 2:49 PM This order reflects the patients wishes and were consensually agreed upon. Full Code 08/02/2013 7:49 PM 08/06/2013 12:55 AM Th is order reflects the patients wishes and were consensually agreed upon. Question Answer Comments Discussion of Advance Directives occurred with: Patient/Family Care Teams Bone Char Kiln Tender Relationship Specialty Start Date End Date Terry Resendez MD [address] [place] [address] PCP - General 04/07/1996 documented as of this encounter
--- OUTSIDE RECORDS SUMMARY | 2023-07-11 10:11 | External Medical Summary | Summary of Care ---
Author Name Unknown Organization [facility] Address [address] [place] [address] Phone [phone] Care Team Providers Care Machine Binding Folder Name Role Phone Terry Resendez MD Primary Care Provider [phone] Reason for Visit * Reason Onset Date Comments Medication Pre-auth 06/10/2023 Encounter Details Date Type Department Care Team Description 06/10/2023 Telephone Neurology [facility] [address] [place] [address] Elsie Capone MD [address] [place] [address] Medication Pre-auth Allergies Active Allergy Reactions Severity Noted Date Comments Ciprofloxacin Hives 09/01/2017 Statins 11/15/2020 All statins Simvastatin 05/07/2006 Severe myalgia's documented as of this encounter (statuses as of 06/10/2023) Medications Medication Sig Dispensed Refills Start Date End Date Status ASPIRIN EC 81 MG PO TBECIndications:Coron johan atherosclerosis of [place] coronary artery Take one pill daily 100 [...] 25 Tablet 11 12/02/2021 Active Spacer/Aero-Holding Chambers DeviceIndications:WATCH REPAIRER D exacerbation (HCC) Use with inhaler. 1 [...] bedtime. Until gone.. 84 Tablet 0 05/18/2023 Active HYDROcodone-Acetamino phen 5-325 MG Oral TabletIndications:Chr [...] Notes * Telephone Encounter - ZACHARY Arias ASSIST - 06/10/2023 10:16 AM EDT Neurology Pre-Cert Request Medication/Disease State Information: Medication: Reyvow 50 mg- 1 tab at onset of migraine. Max 1 dose in 24 hours Diagnosis (including ICD-10): Migraine - Chronic Migraine G43.709 - Self- administered - route pre-cert request to [id number] See corresponding visit note(s) for additional supporting clinical information. Office Information: Prescriber: Elsie Capone MD documented in this encounter Plan of Treatment Upcoming Encounters Date Type Specialty Care Team Description 06/15/2023 Laboratory Laboratory [facility] [address] [place] [address] 08/12/2023 Office Visit Cardiology Terry Garcia PA-C [address] [place] [address] 08/27/2023 Hospital Encounter Surgery Dat Narayanan MD [address] [place] [address] 08/27/2023 Surgery Surgery Dat Narayanan MD [address] [place] [address] COLONOSCOPY FLEXIBLE PROXIMAL DIAGNOSTIC 10/16/2023 Office Visit Family Medicine Terry Resendez MD [address] [place] [address] 10/20/2023 Office Visit Urology Mauricio Ramos MD [address] [place] [address] 10/22/2023 Office Visit Neurology Elsie Capone MD [address] [place] [address] Scheduled Procedures Name Priority Associated Diagnoses Date/Ti me COLONOSCOPY FLEXIBLE PROXIMAL DIAGNOSTIC History of colonic polyps 08/27/2023 9:41 AM EST Health Maintenance Due Date Last Done Comments DISCUSS TOBACCO CESSATION (REFER TO SMARTSET #4562) 1955 COVID-19 Vaccine (#1) 04/05/1955 Alpha-1 Antitrypsin 1972 Zoster Vaccines (1 of 2) 2004 *COPD SEVERITY VERIFIED BY PFT 08/22/2015 DXA Scan 11/27/2017 11/28/2015 *BISPHONATE OR OTHER ACCEPTABLE MEDICATION NEEDED FOR OSTEOPOROSIS (REFER TO SMARTSET #4436) 06/14/2018 AAA Screening 2019 Depression, Most Recent [...] 10/11/2019, Additional history exists HbA1c 11/16/2023 05/18/2023, 0211/2022, 10/16/2021, Additional history exists B-12 11/18/2023 11/17/2022, 09/25, 10/16/2021, Additional history exists GFR 05/18/2024 05/18/2023, 03/2023, 11/17/2022, Additional history exists O2 ASSESSMENT COMPLETED IN PAST YEAR FOR COPD 05/18/2024 05/18/2023 DTaP,Tdap,and Td Vaccines (2 - Td or Tdap) 01/17/2026 01/18/2016, 03/15/2004 VITAMIN D LEVEL ONCE IN A LIFETIME-USE SMARTSET# [id number] Completed 12/18/2015, 02/09/2015, 06/29/2014, Additional history exists LUNG CANCER SCREENING - USE SMARTSET 72175 Completed 06/20/2019, 07/25/2017, 07/11/2017, Additional history exists [...] this encounter Medical Devices Implanted Type Area Organizational Consultant Device Identifier Shelf Expiration Date Model / Serial / Lot Stent Carotid [id number] [id number] - [id number] Implanted:Qty: 1 on 08/23/2013 at OR [facility] [place] Right: Carotid [facility] VASCULAR DEVICES 02/21/2016 [id number] / / [id number] documented as of this encounter Advance Directives [...] the patient have Health Care Power of Locomotive Engineer Electric? No Code Status History Code Status Date Activated Date Inactivated Comments Full Code 07/10/2017 5:59 PM 07/13/2017 3:18 PM Thi s order reflects the patients wishes and were consensually agreed upon. Question Answer Comments Discussion of Advance Directives occurred with: Patient/Family Does the patient have a Living Will? Yes, not currently available Does the patient have Health Care Power of Locomotive Engineer Electric? No Full Code 08/23/2013 8:39 AM 08/24/2013 2:49 PM This order reflects the patients wishes and were consensually agreed upon. Full Code 08/02/2013 7:49 PM 08/06/2013 12:55 AM Th is order reflects the patients wishes and were consensually agreed upon. Question Answer Comments Discussion of Advance Directives occurred with: Patient/Family Care Teams Machine Binding Folder Relationship Specialty Start Date End Date Terry Resendez MD [address] [place] [address] PCP - General 04/07/1996 documented as of this encounter
--- OUTSIDE RECORDS SUMMARY | 2023-07-11 10:11 | External Medical Summary | Summary of Care ---
Author Name Unknown Organization [facility] Address [address] [place] [address] Phone [phone] Care Team Providers Care Demurrage Man Name Role Phone Terry Resendez MD Primary Care Provider [phone] Reason for Visit * Reason Onset Date Comments Precert In Process 06/10/2023 18 LT GWENDOLYN CRIPT REYVOW Encounter Details Date Type Department Care Team Description 06/10/2023 Telephone Neurology [facility] [address] [place] [address] Elsie Capone MD [address] [place] [address] Precert In Process (18 LT SILVERSCRIPT SHAYY... 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 1 [...] Self- administered - route pre-cert request to [id number] See corresponding visit note(s) for additional supporting clinical information. Office Information: Prescriber: Elsie Capone MD documented in this encounter Plan of Treatment Upcoming Encounters Date Type Specialty Care Team Description 06/15/2023 Laboratory Laboratory [address] [address] 08/12/2023 Office Visit Cardiology Terry Garcia PA-C [address] [place] [address] 08/27/2023 Hospital Encounter Surgery Dat Narayanan MD [address] [place] [address] 08/27/2023 Surgery Surgery Dat Narayanan MD [address] [place] [address] COLONOSCOPY FLEXIBLE PROXIMAL DIAGNOSTIC 10/16/2023 Office Visit Family Medicine Terry Resendez MD [address] [place] [address] 10/20/2023 Office Visit Urology Mauricio Ramos MD [address] [facility] Garcia [address] [place] [address] 10/22/2023 Office Visit Neurology Elsie Capone MD [address] [place], [place] [id number] Scheduled Procedures Name Priority Associated Diagnoses Date/Ti me COLONOSCOPY FLEXIBLE PROXIMAL DIAGNOSTIC History of colonic polyps 08/27/2023 9:41 AM EST Health Maintenance Due Date Last Done Comments DISCUSS TOBACCO CESSATION (REFER TO SMARTSET #7531) 1955 COVID-19 Vaccine (#1) 04[birth year]05/1956 Alpha-1 Antitrypsin [...] D LEVEL ONCE IN A LIFETIME-USE SMARTSET# 40527 Completed 12/18/2015, 02/09/2015, 06/29/2014, Additional history exists LUNG CANCER SCREENING - USE SMARTSET [id number] Completed 06/20/2019, 07/25/2017, 07/11/2017, Additional history exists [...] this encounter Medical Devices Implanted Type Area Representative Government Relations Device Identifier Shelf Expiration Date Model / Serial / Lot Stent Carotid 8-6x30 [id number] - [id number] [place]ed:[place] 1 [place]2013 [place] [facility] [place] Carotid [facility] VASCULAR DEVICES 02/21/2016 [id number] / / [id number] documented as of this encounter Advance Directives [...] the patient have Health Care Power of [place]? No Code Status History Code Status Date Activated Date Inactivated Comments Full Code 07/10/2017 5:59 PM 07/13/2017 3:18 PM Thi s order reflects the patients wishes and were consensually agreed upon. Question Answer Comments Discussion of Advance Directives occurred with: Patient/Family Does the patient have a Living Will? Yes, not currently available Does the patient have Health Care Power of [place]? No Full Code 08/23/2013 8:39 AM 08/24/2013 2:49 PM This order reflects the patients wishes and were consensually agreed upon. Full Code 08/02/2013 7:49 PM 08/06/2013 12:55 AM Th is order reflects the patients wishes and were consensually agreed upon. Question Answer Comments Discussion of Advance Directives occurred with: Patient/Family Care Teams Demurrage Man Relationship Specialty Start Date End Date Terry Resendez MD [address] [place] [address] PCP - General 04/07/1996 documented as of this encounter
--- OUTSIDE RECORDS SUMMARY | 2023-07-11 10:11 | External Medical Summary | Summary of Care ---
Author Name Unknown Organization [facility] Address [address] [place] [address] Phone [phone] Care Team Providers Care Headline Writer Name Role Phone Terry Resendez MD Primary Care Provider [phone] Reason for Visit * Reason Onset Date Comments Precert Approved 06/10/2023 MARY Encounter Details Date Type Department Care Team Description 06/10/2023 Telephone Neurology [facility] [address] [place] [address] Elsie Capone MD [address] [place] [address] Precert Approved (MARY) Allergies Active Allergy Reactions Severity Noted Date Comments Ciprofloxacin Hives 09/01/2017 Statins 11/15/2020 All statins Simvastatin 05/07/2006 Severe myalgia's documented as of this encounter (statuses as of 06/12/2023) Medications Medication Sig Dispensed Refills Start Date End Date Status ASPIRIN EC 81 MG PO TBECIndications:Coron johan atherosclerosis of [place] coronary artery Take one pill daily 100 [...] 25 Tablet 11 12/02/2021 Active Spacer/Aero-Holding 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 1 [...] as of this encounter (statuses as of 06/12/2023) Active Problems Problem Noted Date Hemiplegia and [...] as of this encounter (statuses as of 06/12/2023) Resolved Problems Problem Noted Date Resolved Date RCA occlusion 07/11/2017 10/11/2019 Lumbar compression fracture 11/14/2015/10/2015 Overview: L2 Acute chest pain 10/17/2015 06/29/2018 [...] BACK 06/30/201106/24 Benign neoplasm of colon 06/05/2009 11/06/2 018 Overview: adenomatous/repeat colonoscopy in 1 yr Dysfunction of eustachian tube 08/30/2008 0 10/15/2020 Dyslipidemia, goal to be determined 03/08/2004 08/01/2013 Tobacco use disorder 10/26/2012 documented as of this encounter (statuses as of 06/12/2023) Immunizations Name Administration Dates Next Due Pneumococcal [...] encounter Miscellaneous Notes * Telephone Encounter - Camryn Kumari LPN - 06/12/2023 3:22 PM EDT Talked to the pharmacy and had them submit the medication while I was on the phone and it went through. Called and informed the patient. * Telephone Encounter - LILY Dubose - 06/12/2023 12:54 PM EDT Pt asking if this we completed yet? I advised it looks like it is still in process and will have th office look into it since it is Thursday and he is looking for his medication TY * Telephone Encounter - ZACHARY Arias - 06/10/2023 10:16 AM EDT Neurology Pre-Cert Request Medication/Disease State Information: Medication: Reyvow 50 mg- 1 tab at onset of migraine. Max 1 dose in 24 hours Diagnosis (including ICD-10): Migraine - Chronic Migraine G43.709 - Self- administered - route pre-cert request to [id number] See corresponding visit note(s) for additional supporting clinical information. Office Information: Prescriber: Elsie Capone MD documented in this encounter Plan of Treatment Upcoming Encounters Date Type Specialty Care Team Description 06/15/2023 Laboratory Laboratory [place] [address] [place] [address] 08/12/2023 Office Visit Cardiology Terry Garcia PA-C [address] [place] [address] 08/27/2023 Hospital Encounter Surgery Dat Narayanan MD [address] [place] [address] 08/27/2023 Surgery Surgery Dat Narayanan MD [address] [place] [address] COLONOSCOPY FLEXIBLE PROXIMAL DIAGNOSTIC 10/16/2023 Office Visit Family Medicine Terry Resendez MD [address] [place] [address] 10/20/2023 Office Visit Urology Mauricio Ramos MD 27 [facility] [address] [place] [address] 10/22/2023 Office Visit Neurology Elsie Capone MD [address] [place] [address] Scheduled Procedures Name Priority Associated Diagnoses Date/Ti me COLONOSCOPY FLEXIBLE PROXIMAL DIAGNOSTIC History of colonic polyps 08/27/2023 9:41 AM EST Health Maintenance Due Date Last Done Comments DISCUSS TOBACCO CESSATION (REFER TO SMARTSET #3291) 1955 COVID-19 Vaccine (#1) 04/05/1956 Alpha-1 Antitrypsin [...] D LEVEL ONCE IN A LIFETIME-USE SMARTSET# [id number] Completed 12/18/2015, 02/09/2015, 06/29/2014, Additional history exists LUNG CANCER SCREENING - USE SMARTSET 35586 Completed 06/20/2019, 07/25/2017, 07/11/2017, Additional history exists [...] this encounter Medical Devices Implanted Type Area Nailer Machine Device Identifier Shelf Expiration Date Model / Serial / Lot Stent Carotid 8-6x30 [id number] - [id number] Implanted:Qty: 1 on 08/23/2013 at [place] [facility] [place]: Carotid [facility] : VASCULAR DEVICES 02/21/2016 [id number] / / [id number] documented as of this encounter Advance Directives [...] the patient have Health Care Power of Step Down Specialist? No Code Status History Code Status Date Activated Date Inactivated Comments Full Code 07/10/2017 5:59 PM 07/13/2017 3:18 PM Thi s order reflects the patients wishes and were consensually agreed upon. Question Answer Comments Discussion of Advance Directives occurred with: Patient/Family Does the patient have a Living Will? Yes, not currently available Does the patient have Health Care Power of Step Down Specialist? No Full Code 08/23/2013 8:39 AM 08/24/2013 2:49 PM This order reflects the patients wishes and were consensually agreed upon. Full Code 08/02/2013 7:49 PM 08/06/2013 12:55 AM Th is order reflects the patients wishes and were consensually agreed upon. Question Answer Comments Discussion of Advance Directives occurred with: Patient/Family Care Teams Headline Writer Relationship Specialty Start Date End Date Terry Resendez MD [address] [place] [address] PCP - General 04/07/1996 documented as of this encounter
--- OUTSIDE RECORDS SUMMARY | 2023-07-11 10:11 | External Medical Summary | Summary of Care ---
Author Name Unknown Organization [facility] Address [address] [place] [address] Phone [phone] Care Team Providers Care Human Resources Project Manager Name Role Phone Terry Resendez MD Primary Care Provider [phone] Reason for Visit * Reason Onset Date Comments Precert Approved 06/10/2023 MARY Encounter Details Date Type Department Care Team Description 06/10/2023 Telephone Neurology [facility] [address] [place] [address] Elsie Capone MD [address] [place] [address] Precert Approved (MARY) Allergies Active Allergy Reactions Severity Noted Date Comments Ciprofloxacin Hives 09/01/2017 Statins 11/15/2020 All statins Simvastatin 05/07/2006 Severe myalgia's documented as of this encounter (statuses as of 06/11/2023) Medications Medication Sig Dispensed Refills Start Date End Date Status ASPIRIN EC 81 MG PO TBECIndications:Coron johan atherosclerosis of [place] coronary artery Take one pill daily 100 [...] 25 Tablet 11 12/02/2021 Active Spacer/Aero-Holding Chambers DeviceIndications: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 1 [...] as of this encounter (statuses as of 06/11/2023) Active Problems Problem Noted Date Hemiplegia and [...] as of this encounter (statuses as of 06/11/2023) Resolved Problems Problem Noted Date Resolved Date [...] as of this encounter (statuses as of 06/11/2023) Immunizations Name Administration Dates Next Due Pneumococcal [...] Self- administered - route pre-cert request to [id number] See corresponding visit note(s) for additional supporting clinical information. Office Information: Prescriber: Elsie Capone MD documented in this encounter Plan of Treatment Upcoming Encounters Date Type Specialty Care Team Description 06/15/2023 Laboratory Laboratory [facility] [address] [place] [address] 08/12/2023 Office Visit Cardiology Terry Garcia PA-C [address] [place] [address] 08/27/2023 Hospital Encounter Surgery Dat Narayanan MD [address] [place] [address] 08/27/2023 Surgery Surgery Dat Narayanan MD [address] [place] [address] COLONOSCOPY FLEXIBLE PROXIMAL DIAGNOSTIC 10/16/2023 Office Visit Family Medicine Terry Resendez MD [address] [place] [address] 10/20/2023 Office Visit Urology Mauricio Ramos MD [address] [facility] [place] [address] [place] [address] 10/22/2023 Office Visit Neurology Elsie Capone MD [address] [place] [address] Scheduled Procedures Name Priority Associated Diagnoses Date/Ti me COLONOSCOPY FLEXIBLE PROXIMAL DIAGNOSTIC History of colonic polyps 08/27/2023 9:41 AM EST Health Maintenance Due Date Last Done Comments DISCUSS TOBACCO CESSATION (REFER TO SMARTSET #6381) 1955 COVID-19 Vaccine (#1) 04[birth year]05/1956 Alpha-1 Antitrypsin [...] D LEVEL ONCE IN A LIFETIME-USE SMARTSET# 60568 Completed 12/18/2015, 02/09/2015, 06/29/2014, Additional history exists LUNG CANCER SCREENING - USE SMARTSET 25406 Completed 06/20/2019, 07/25/2017, 07/11/2017, Additional history exists [...] this encounter Medical Devices Implanted Type Area Radio Time Sales Supervisor Device Identifier Shelf Expiration Date Model / Serial / Lot Stent Carotid 8-6x30 [id number] - [id number] Implanted:Qty: 1 on 08/23/2013 [place] [facility] [place] Carotid [facility] VASCULAR DEVICES 02/21/2016 [id number] / / [id number] documented as of this encounter Advance Directives [...] the patient have Health Care Power of Testing Lead? No Code Status History Code Status Date Activated Date Inactivated Comments Full Code 07/10/2017 5:59 PM 07/13/2017 3:18 PM Thi s order reflects the patients wishes and were consensually agreed upon. Question Answer Comments Discussion of Advance Directives occurred with: Patient/Family Does the patient have a Living Will? Yes, not currently available Does the patient have Health Care Power of Testing Lead? No Full Code 08/23/2013 8:39 AM 08/24/2013 2:49 PM This order reflects the patients wishes and were consensually agreed upon. Full Code 08/02/2013 7:49 PM 08/06/2013 12:55 AM Th is order reflects the patients wishes and were consensually agreed upon. Question Answer Comments Discussion of Advance Directives occurred with: Patient/Family Care Teams Human Resources Project Manager Relationship Specialty Start Date End Date Terry Resendez MD [address] [place] [address] PCP - General 04/07/1996 documented as of this encounter
--- OUTSIDE RECORDS SUMMARY | 2023-07-11 10:11 | External Medical Summary | Summary of Care ---
Author Name Unknown Organization [facility] Address [address] [place] [address] Phone [phone] Care Team Providers Care Fmd Teacher Name Role Phone Terry Resendez MD Primary Care Provider [phone] Reason for Visit * Reason Onset Date Comments Precert Approved 06/10/2023 MARY Encounter Details Date Type Department Care Team Description 06/10/2023 Telephone Neurology [facility] [address] [place] [address] Elsie Capone MD [address] [place] [address] Precert Approved (MARY) Allergies Active Allergy Reactions Severity Noted Date Comments Ciprofloxacin Hives 09/01/2017 Statins 11/15/2020 All statins Simvastatin 05/07/2006 Severe myalgia's documented as of this encounter (statuses as of 06/12/2023) Medications Medication Sig Dispensed Refills Start Date End Date Status ASPIRIN EC 81 MG PO TBECIndications:Coron johan atherosclerosis of [place] coronary artery Take one pill daily 100 [...] 25 Tablet 11 12/02/2021 Active Spacer/Aero-Holding Chambers DeviceIndications: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 1 [...] encounter Miscellaneous Notes * Telephone Encounter - LILY Dubose - 06/12/2023 12:54 PM EDT Pt asking if this we completed yet? I advised it looks like it is still in process and will have th office look into it since it is Thursday and he is looking for his medication TY * Telephone Encounter - ZACHARY Arias ASSIST - 06/10/2023 10:16 AM EDT Neurology Pre-Cert Request Medication/Disease State Information: Medication: Reyvow 50 mg- 1 tab at onset of migraine. Max 1 dose in 24 hours Diagnosis (including ICD-10): Migraine - Chronic Migraine G43.709 - Self- administered - route pre-cert request to [id number] See corresponding visit note(s) for additional supporting clinical information. Office Information: Prescriber: Elsie Capone MD documented in this encounter Plan of Treatment Upcoming Encounters Date Type Specialty Care Team Description 06/15/2023 Laboratory Laboratory [place] [address] [place] [address] 08/12/2023 Office Visit Cardiology Terry Garcia PA-C [address] [place] [address] 08/27/2023 Hospital Encounter Surgery Dat Narayanan MD [address] [place] [address] 08/27/2023 Surgery Surgery Dat Narayanan MD [address] [place] [address] COLONOSCOPY FLEXIBLE PROXIMAL DIAGNOSTIC 10/16/2023 Office Visit Family Medicine Terry Resendez MD [address] [place] [address] 10/20/2023 Office Visit Urology Mauricio Ramos MD [address] [place] [address] 10/22/2023 Office Visit Neurology Elsie Capone MD [address] [place] [address] Scheduled Procedures Name Priority Associated Diagnoses Date/Ti me COLONOSCOPY FLEXIBLE PROXIMAL DIAGNOSTIC History of colonic polyps 08/27/2023 9:41 AM EST Health Maintenance Due Date Last Done Comments DISCUSS TOBACCO CESSATION (REFER TO SMARTSET #7191) 1955 COVID-19 Vaccine (#1) 04[birth year]05/1956 Alpha-1 Antitrypsin [...] 10/16/2021, Additional history exists GFR 05/18/2024 05/18/2023, 060 03/2023, 11/17/2022, Additional history exists O2 ASSESSMENT COMPLETED IN PAST YEAR FOR COPD 05/18/2024 05/18/2023 DTaP,Tdap,and Td Vaccines (2 - Td or Tdap) 01/17/2026 01/18/2016, 03/15/2004 VITAMIN D LEVEL ONCE IN A LIFETIME-USE SMARTSET# [id number] Completed 12/18/2015, 02/09/2015, 06/29/2014, Additional history exists LUNG CANCER SCREENING - USE SMARTSET 05751 Completed 06/20/2019, 07/25/2017, 07/11/2017, Additional history exists [...] this encounter Medical Devices Implanted Type Area Commercial Sales Consultant Device Identifier Shelf Expiration Date Model / Serial / Lot Stent Carotid 8-6x30 [id number] - [id number] Implanted:Qty: 1 on 08/23/2013 at [place] [facility] [place] Right: Carotid [facility] VASCULAR DEVICES 02/21/2016 [id number] / / [id number] documented as of this encounter Advance Directives [...] the patient have Health Care Power of Ocean [employer] Lieutenant? No Code Status History Code Status Date Activated Date Inactivated Comments Full Code 07/10/2017 5:59 PM 07/13/2017 3:18 PM Thi s order reflects the patients wishes and were consensually agreed upon. Question Answer Comments Discussion of Advance Directives occurred with: Patient/Family Does the patient have a Living Will? Yes, not currently available Does the patient have Health Care Power of Ocean [employer] Lieutenant? No Full Code 08/23/2013 8:39 AM 08/24/2013 2:49 PM This order reflects the patients wishes and were consensually agreed upon. Full Code 08/02/2013 7:49 PM 08/06/2013 12:55 AM Th is order reflects the patients wishes and were consensually agreed upon. Question Answer Comments Discussion of Advance Directives occurred with: Patient/Family Care Teams Fmd Teacher Relationship Specialty Start Date End Date Terry Resendez MD [address] [place] [address] PCP - General 04/07/1996 documented as of this encounter
--- OUTSIDE RECORDS SUMMARY | 2023-07-11 10:11 | External Medical Summary | Summary of Care ---
Author Name Unknown Organization [facility] Address [address] [place] [address] Phone [phone] Care Team Providers Care Embedder Name Role Phone Sam Resendez MD Primary Care Provider [phone] Reason for Visit * Reason Onset Date Comments Medication Refill 05/30/2023 Encounter Details Date Type Department Care Team Description 05/30/2023 Refill [facility] [address] [place] [address] Sam Resendez MD [address] [place] [address] Chronic bilateral low back pain with right-sided sciatica Allergies Active Allergy Reactions Severity Noted Date Comments Ciprofloxacin Hives 09/01/2017 Statins 11/15/2020 All statins Simvastatin 05/07/2006 Severe myalgia's documented as of this encounter (statuses as of 06/01/2023) Medications Medication Sig Dispensed Refills Start Date End Date Status ASPIRIN EC 81 MG PO TBECIndications:Esther nary atherosclerosis of [place] coronary artery Take one pill daily 100 [...] OTHER DAY 45 Capsule 3 3 Active Sulfamethoxazole-Tri methoprim 800-160 MG Oral Tablet (Bactrim DS)Indications:Urina ry retention,Urinary incontinence, unspecified type,Subjective fever,Dysuria Take 1 Tablet by mouth in the morning and 1 Tablet before bedtime. Until gone.. 84 Tablet 0 3 06/29/20 23 Active HYDROcodone-Acetamin ophen 5-325 MG Oral TabletIndications:Ch [...] 30 day RX 90 Tablet 0 3 05/30/20 23 Discontinu ed(Refill) Hospital, Clinic, or Other Facility Administered Medication Ordered Dose Route Frequency Start Date End Date Status albuterol sulfate (PROVENTIL) (2.5 MG/3ML) 0.083% inhalation solution 2.5 mgIndications:COPD, severity to be determined (HCC) 2.5 mg NEBULIZER Q4H PRN 07/05/2019 Active documented as of this encounter (statuses as of 06/01/2023) Active Problems Problem Noted Date Hemiplegia and [...] as of this encounter (statuses as of 06/01/2023) Resolved Problems Problem Noted Date Resolved Date [...] as of this encounter (statuses as of 06/01/2023) Immunizations Name Administration Dates Next Due Pneumococcal [...] Telephone Encounter - Sam Resendez MD - 06/01/2023 4:57 PM EDTSigned Prescriptions: Disp Refills HYDROcodone-Acetaminophen 5-325 MG Oral Ta*90 Tab*0 Sig: Take 1 Tablet by mouth 3 times a day as needed for Pain, Mild or Pain, Moderate. 30 day RX Authorizing Provider: SAM RESENDEZ * Telephone Encounter - January [facility] - 06/01/2023 11:58 AM EDTPending Prescriptions: Disp Refills HYDROcodone-Acetaminophen 5-325 MG Oral Ta*90 Tab*0 Sig: Take 1 Tablet by mouth 3 times a day as needed for Pain, Mild or Pain, Moderate. 30 day RX * Telephone Encounter - January Costa RP - 06/01/2023 11:56 AM EDT I have reviewed the patients controlled substance dispensing history in the Prescription Drug Monitoring Program in compliance with the [facility] regulations before prescribing a controlled substance. PDMP checked on 06/01/2023. Pending Prescriptions: Disp Refills HYDROcodone-Acetaminophen 5-325 MG Oral T*90 Tab*0 Sig: Take 1 Tablet by mouth 3 times a day as needed for Pain, Mild or Pain, Moderate. 30 day RX Last Visit: 05/18/2023 (in office), Visit date not found (telemedicine) Next Visit: 10/16/2023 Date medication was last filled: 04/30/23 Date medication is due for refill: 05/29/23 Pharmacy: [id number] [place] Is this request for [...] in Results Review. Please approve if appropriate. Thanks, January Costa Clinical Pharmacist [facility] Services ([facility]) (Formerly Telepharmacy) [phone] 06/01/2023, 11:56 AM documented in this encounter Plan of Treatment Upcoming Encounters Date Type Specialty Care Team Description 06/15/2023 Laboratory Laboratory [facility] [place] [address] [facility] [place] [address] 08/12/2023 Office Visit Cardiology Sam Garcia PA-C [address] [place] [address] 08/27/2023 Hospital Encounter Surgery Dat Narayanan MD [address] [place] [address] 08/27/2023 Surgery Surgery Dat Narayanan MD [address] [place] [address] COLONOSCOPY FLEXIBLE PROXIMAL DIAGNOSTIC 10/16/2023 Office Visit Family Medicine Sam Resendez MD [address] [place] [address] 10/20/2023 Office Visit Urology Mauricio Ramos MD [address] [place] [address] 10/22/2023 Office Visit Neurology Elsie Capone MD [address] [place] [address] Scheduled Procedures Name Priority Associated Diagnoses Date/Ti me COLONOSCOPY FLEXIBLE PROXIMAL DIAGNOSTIC History of colonic polyps 08/27/2023 9:41 AM EST Health Maintenance Due Date Last Done Comments DISCUSS TOBACCO CESSATION (REFER TO SMARTSET #3511) 1955 COVID-19 Vaccine (#1) 04[birth year]05/1956 Alpha-1 Antitrypsin [...] D LEVEL ONCE IN A LIFETIME-USE SMARTSET# [id number] Completed 12/18/2015, 02/09/2015, 06/29/2014, Additional history exists LUNG CANCER SCREENING - USE SMARTSET [id number] Completed 06/20/2019, 07/25/2017, 07/11/2017, Additional history exists [...] this encounter Medical Devices Implanted Type Area Instructional Services Specialist Device Identifier Shelf Expiration Date Model / Serial / Lot Stent Carotid 8-6x30 [id number] - [id number] Implanted:Qty: 1 on 08/23/2013 at OR [facility] Right: Carotid [facility] : VASCULAR DEVICES 02/21/2016 [id number] / / [id number] documented as of this encounter Visit Diagnoses [...] the patient have Health Care Power of Field Auto Appraiser? No Code Status History Code Status Date Activated Date Inactivated Comments Full Code 07/10/2017 5:59 PM 07/13/2017 3:18 PM Thi s order reflects the patients wishes and were consensually agreed upon. Question Answer Comments Discussion of Advance Directives occurred with: Patient/Family Does the patient have a Living Will? Yes, not currently available Does the patient have Health Care Power of Field Auto Appraiser? No Full Code 08/23/2013 8:39 AM 08/24/2013 2:49 PM This order reflects the patients wishes and were consensually agreed upon. Full Code 08/02/2013 7:49 PM 08/06/2013 12:55 AM Th is order reflects the patients wishes and were consensually agreed upon. Question Answer Comments Discussion of Advance Directives occurred with: Patient/Family Care Teams Embedder Relationship Specialty Start Date End Date Sam Resendez MD [address] [place] [address] PCP - General 04/07/1996 documented as of this encounter
--- OUTSIDE RECORDS SUMMARY | 2023-07-11 10:12 | External Medical Summary | Summary of Care ---
Author Name Unknown Organization [facility] Address [address] [place] [address] Phone [phone] Care Team Providers Care Product Representative Name Role Phone Terry Resendez MD Primary Care Provider Reason for Visit * Reason Onset Date Comments Health Maintenance 05/06/2023 Encounter Details Date Type Department Care Team Description 05/06/2023 Telephone [facility] [address] [place] [address] Terry Resendez MD [address] [place] [address] Health Maintenance Allergies Active Allergy Reactions Severity Noted Date Comments Ciprofloxacin Hives 09/01/2017 Statins 11/15/2020 All statins Simvastatin 05/07/2006 Severe myalgia's documented as of this encounter (statuses as of 05/06/2023) Medications Medication Sig Dispensed Refills Start Date End Date Status ASPIRIN EC 81 MG PO TBECIndications:Coron johan atherosclerosis of [place] coronary artery Take one pill daily 100 [...] 15 minutes 25 Tablet 11 12/02/2021 Active Tamsulosin HCl 0.4 MG Oral Capsule (Flomax)Indications:O bstructive uropathy Take by mouth 1 Capsule every other day . 45 Capsule 3 06/03/2022 Active Spacer/Aero-Holding Chambers DeviceIndications:MEDICATION SPECIALIST D exacerbation (HCC) Use with inhaler. [...] Extended Release 24 Hour (Imdur)Indications:Ex ertional angina (HCC) TAKE ONE TABLET BY MOUTH DAILY 90 [...] month thereafter 2 mL 0 05/04/2023 Active Hospital, Clinic, or Other Facility Administered Medication Ordered Dose Route Frequency Start Date End Date Status albuterol sulfate (PROVENTIL) (2.5 MG/3ML) 0.083% inhalation solution 2.5 mgIndications:COPD, severity to be determined (HCC) 2.5 mg NEBULIZER Q4H PRN 07/05/2019 Active documented as of this encounter (statuses as of 05/06/2023) Active Problems Problem Noted Date Hemiplegia and [...] as of this encounter (statuses as of 05/06/2023) Resolved Problems Problem Noted Date Resolved Date [...] as of this encounter (statuses as of 05/06/2023) Immunizations Name Administration Dates Next Due Pneumococcal [...] encounter Miscellaneous Notes * Telephone Encounter - Ela Ulrich LPN - 05/06/2023 9:40 AM EDT Care Gaps Comprehensive Care Outreach Last Office/Telemedicine Visit: 04/15/2023 (in office), Visit date not found (telemedicine) Next Office Visit: 10/16/2023 Hemoglobin AIC Results: Lab Results Component Value Date/Time HEMOGLOBIN A1C - [facility] 5.3 10/17/2022 02:57 PM HEMOGLOBIN A1C - [facility] 5.8 (H) 10/16/2021 02:47 PM HEMOGLOBIN A1C - [facility] 5.3 10/11/2019 04:14 PM HEMOGLOBIN A1C - [facility] 6.1 (H) 08/03/2018 11:30 AM HEMOGLOBIN A1C - [facility] 6.1 01/19/2018 03:27 PM Reviewed Health Maintenance below: Health Maintenance Topic Date Due DISCUSS TOBACCO CESSATION (REFER TO SMARTSET #0301) Never done COVID-19 Vaccine (1) Never done Alpha-1 Antitrypsin Never done Zoster Vaccines (1 of 2) Never done *COPD SEVERITY VERIFIED BY PFT Never done DXA Scan 11/27/2017 *BISPHONATE OR OTHER ACCEPTABLE MEDICATION NEEDED FOR OSTEOPOROSIS (REFER TO SMARTSET #1146) Never done AAA Screening Never done Depression, Most Recent Score >= 10 (will fire each visit until score < 10) 06/14/2020 Pneumococcal Vaccine: 65+ Years (3 - PPSV23 or PCV20) 04/11/2021 DIABETES-EYE EXAM 01/29/2022 COLONOSCOPY-EVERY 3 YRS AGES 18-100 04/05/2022 HbA1c 04/16/2023 Influenza Vaccine (FLU shot) (1) 04/24/2023 Eye tele eye? Dexa Aaa declined once in aug Colon already scheduled Labs already ordered Care Gap Outreach Action Taken: Unable to reach my g sent documented in this encounter Plan of Treatment Upcoming Encounters Date Type Specialty Care Team Description 06/15/2023 Laboratory Laboratory [facility] [address] [place] [id number] 08/12/2023 Office Visit Cardiology Terry Garcia PA-C [address] [place] [address] 08/27/2023 Hospital Encounter Surgery Dat Narayanan MD [address] [place] [address] 08/27/2023 Surgery Surgery Dat Narayanan MD [address] [place] [address] COLONOSCOPY FLEXIBLE PROXIMAL DIAGNOSTIC 10/16/2023 Office Visit Family Medicine Terry Resendez MD [address] [place] [address] 10/22/2023 Office Visit Neurology Elsie Capone MD [address] [place] [address] Scheduled Procedures Name Priority Associated Diagnoses Date/Ti me COLONOSCOPY FLEXIBLE PROXIMAL DIAGNOSTIC History of colonic polyps 08/27/2023 9:27 AM EST Health Maintenance Due Date Last Done Comments DISCUSS TOBACCO CESSATION (REFER TO SMARTSET #1841) 1955 COVID-19 Vaccine (#1) 04/05/1956 Alpha-1 Antitrypsin [...] D LEVEL ONCE IN A LIFETIME-USE SMARTSET# [id number] Completed 12/18/2015, 02/09/2015, 06/29/2014, Additional history exists LUNG CANCER SCREENING - USE SMARTSET 73939 Completed 06/20/2019, 07/25/2017, 07/11/2017, Additional history exists [...] this encounter Medical Devices Implanted Type Area Patrol Inspector Device Identifier Shelf Expiration Date Model / Serial / Lot Stent Carotid 8-6x30 [id number] - [id number] Implanted:Qty: 1 on 08/23/2013 at [place] [facility] [place] Right: Carotid [facility] : VASCULAR DEVICES 02/21/2016 [id number] / / [id number] documented as of this encounter Advance Directives [...] the patient have Health Care Power of Space Planner? No Code Status History Code Status Date Activated Date Inactivated Comments Full Code 07/10/2017 5:59 PM 07/13/2017 3:18 PM Thi s order reflects the patients wishes and were consensually agreed upon. Question Answer Comments Discussion of Advance Directives occurred with: Patient/Family Does the patient have a Living Will? Yes, not currently available Does the patient have Health Care Power of Space Planner? No Full Code 08/23/2013 8:39 AM 08/24/2013 2:49 PM This order reflects the patients wishes and were consensually agreed upon. Full Code 08/02/2013 7:49 PM 08/06/2013 12:55 AM Th is order reflects the patients wishes and were consensually agreed upon. Question Answer Comments Discussion of Advance Directives occurred with: Patient/Family Care Teams Product Representative Relationship Specialty Start Date End Date Terry Resendez MD [address] [place] [address] PCP - General 04/07/1996 documented as of this encounter
--- OUTSIDE RECORDS SUMMARY | 2023-07-11 10:12 | External Medical Summary | Summary of Care ---
Author Name Unknown Organization [facility] Address [address] [place] [address] Phone [phone] Care Team Providers Care Warehouse Trainer Name Role Phone Terry Resendez MD Primary Care Provider [phone] Reason for Visit * Reason Onset Date Comments Precert Approved 04/28/2023 [facility] Encounter Details Date Type Department Care Team Description 04/28/2023 Telephone Neurology [facility] [address] [place] [address] Elsie Capone MD [address] [place] [address] Precert Approved ( [facility]GALITY) Allergies Active Allergy Reactions Severity Noted Date Comments Ciprofloxacin Hives 09/01/2017 Statins 11/15/2020 All statins Simvastatin 05/07/2006 Severe myalgia's documented as of this encounter (statuses as of 05/07/2023) Medications Medication Sig Dispensed Refills Start Date End Date Status ASPIRIN EC 81 MG PO TBECIndications:Esther nary atherosclerosis of [place] coronary artery Take one pill daily 100 [...] 15 minutes 25 Tablet 11 2 Active Tamsulosin HCl 0.4 MG Oral Capsule (Flomax)Indications: Obstructive uropathy Take by mouth 1 Capsule every other day . 45 Capsule 3 2 Active Spacer/Aero-Holding Chambers DeviceIndications:[place] PD exacerbation [...] Extended Release 24 Hour (Imdur)Indications:E xertional angina (HCC) TAKE ONE TABLET BY MOUTH [...] month thereafter 2 mL 0 3 Active Ajovy 225 MG/1.5ML Subcutaneous Solution Auto-injector (Fremanezumab-vfrm) Inject 1.5 ml under the skin once a month 1.5 mL 5 3 05/04/20 23 Discontinu ed(Formula ry/Cost) Hospital, Clinic, or Other Facility Administered Medication Ordered Dose Route Frequency Start Date End Date Status albuterol sulfate (PROVENTIL) (2.5 MG/3ML) 0.083% inhalation solution 2.5 mgIndications:COPD, severity to be determined (HCC) 2.5 mg NEBULIZER Q4H PRN 07/05/2019 Active documented as of this encounter (statuses as of 05/07/2023) Active Problems Problem Noted Date Hemiplegia and [...] as of this encounter (statuses as of 05/07/2023) Resolved Problems Problem Noted Date Resolved Date RCA occlusion 07/11/2017 10/11/2019 Lumbar compression fracture 11/14/2015 0310/2015 Overview: L2 Acute chest pain 10/17/2015 06/29/2018 [...] as of this encounter (statuses as of 05/07/2023) Immunizations Name Administration Dates Next Due Pneumococcal [...] encounter Miscellaneous Notes * Telephone Encounter - Gail Hamilton LPN - 05/05/2023 8:37 AM EDT Neurology Pre-Cert Request Medication/Disease State Information: Medication: Galcanezumab (Emgality) - 120mg/ml Pen - Initiation - 240mg once then, 120mg once a month Diagnosis (including ICD-10): Migraine - Chronic Migraine G43.709 - Self- administered - route pre-cert request to [id number] See corresponding visit note(s) for additional supporting clinical information. Office Information: Prescriber: Elsie Capone MD * Telephone Encounter - Elsie Capone MD - 05/04/2023 4:16 PM EDT Tell patient I prescribed Emgality for migraine prevention instead of Ajovy which is not covered. Tell him common side effects are the same including rarely constipation and muscle cramps * Telephone Encounter - Gail Hamilton LPN - 04/28/2023 8:37 AM EDT Medicare would require a prior authorization for Emgality or Aimovig. Auth can be submitted to precert team, if ordered. How would you like to proceed? documented in this encounter Plan of Treatment Upcoming Encounters Date Type Specialty Care Team Description 06/15/2023 Laboratory Laboratory [facility] [address] [place] [facility] [place] [address] 08/12/2023 Office Visit Cardiology Terry Gracia PA-C [address] [place] [address] 08/27/2023 Hospital Encounter Surgery Dat Narayanan MD [address] [place] [address] 08/27/2023 Surgery Surgery Dat Narayanan MD [address] [place] [address] COLONOSCOPY FLEXIBLE PROXIMAL DIAGNOSTIC 10/16/2023 Office Visit Family Medicine Terry Resendez MD [address] [place] [address] 10/22/2023 Office Visit Neurology Elsie Capone MD [address] [place] [address] Scheduled Procedures Name Priority Associated Diagnoses Date/Ti me COLONOSCOPY FLEXIBLE PROXIMAL DIAGNOSTIC History of colonic polyps 08/27/2023 9:41 AM EST Health Maintenance Due Date Last Done Comments DISCUSS TOBACCO CESSATION (REFER TO SMARTSET #3941) 1955 COVID-19 Vaccine (#1) 04/05/1956 Alpha-1 Antitrypsin [...] D LEVEL ONCE IN A LIFETIME-USE SMARTSET# [id number] Completed 12/18/2015, 02/09/2015, 06/29/2014, Additional history exists LUNG CANCER SCREENING - USE SMARTSET 89220 Completed 06/20/2019, 07/25/2017, 07/11/2017, Additional history exists [...] this encounter Medical Devices Implanted Type Area Pricing Consultant Device Identifier Shelf Expiration Date Model / Serial / Lot Stent Carotid 8-6x30 [id number] - [id number] Implanted:Qty: 1 on 08/23/2013 at OR [facility] [place] Right: Carotid [facility] : VASCULAR DEVICES 02/21/2016 [id number] / / [id number] documented as of this encounter Advance Directives [...] the patient have Health Care Power of Garage Worker? No Code Status History Code Status Date Activated Date Inactivated Comments Full Code 07/10/2017 5:59 PM 07/13/2017 3:18 PM Thi s order reflects the patients wishes and were consensually agreed upon. Question Answer Comments Discussion of Advance Directives occurred with: Patient/Family Does the patient have a Living Will? Yes, not currently available Does the patient have Health Care Power of Garage Worker? No Full Code 08/23/2013 8:39 AM 08/24/2013 2:49 PM This order reflects the patients wishes and were consensually agreed upon. Full Code 08/02/2013 7:49 PM 08/06/2013 12:55 AM Th is order reflects the patients wishes and were consensually agreed upon. Question Answer Comments Discussion of Advance Directives occurred with: Patient/Family Care Teams Warehouse Trainer Relationship Specialty Start Date End Date Terry Resendez MD [address] [place] [address] PCP - General 04/07/1996 documented as of this encounter
--- OUTSIDE RECORDS SUMMARY | 2023-07-11 10:12 | External Medical Summary ---
Author Name Unknown Address Unknown Organization [id number]:[facility] [address] [place] [address] Laboratory Report Ordering Provider Test Date Status CALEB DUNNE 05/18/2023 12:03:37 Final Observation Date Value Abnormality Reference (Units ) Status WBC, Total 05/18/2023 12:03:37 9.66 4.00-10.8 0 (K/uL) Final RBC 05/18/2023 12:03:37 4.61 4.50-5.25 (M/uL) Final Hemoglobin 05/18/2023 12:03:37 15.0 14.0-16.8 (g/dL) Final Anemia reflex testing trigge rs on a HGB < 12.0 for Females and HGB < 13.0 for Males in accordance with the WHO Anemia Guidelines
Anemia reflex testing triggers on a HGB < 12.0 for Females and HGB < 13.0 for Males in accordance with the WHO Anemia Guidelines HCT 05/18/2023 12:03:37 45.7 40.0-48.4 (%) Final MCV 05/18/2023 12:03:37 99.1 82.0-99.5 (fL) Final MCH 05/18/2023 12:03:37 32.5 27.0-34.0 (pg) Final MCHC 05/18/2023 12:03:37 32.8 32.0-36.0 (g/dL) Final RDW 05/18/2023 12:03:37 12.1 11.5-15.5 (%) Final Platelets 05/18/2023 12:03:37 241 140-400 (K /uL) Final MPV 05/18/2023 12:03:37 8.8 6.6-11.1 ( fL) Final Nucleated erythrocytes/100 leukocytes [Ratio] in Blood by Automated count 05/18/2023 12:03:37 0 <=0 (/100 WBCs) Fi nal Performing Location [facility] [address] [facility] [address]
--- OUTSIDE RECORDS SUMMARY | 2023-07-11 10:12 | External Medical Summary ---
Author Name Unknown Address Unknown Organization [id number][facility] [place] [address] [facility] [place] [address] Laboratory Report Ordering Provider Test Date Status CALEB DUNNE 05/18/2023 12:03:37 Final Observation Date Value Abnormality Reference (Units ) Status SYNC LEUKOCYTES IN BLOOD BY AUTOMATED COUNT 05/18/2023 12:03:37 9.66 4.00-10.80 (K/uL) Final Segs 05/18/2023 12:03:37 60.5 40.0-75.0 (%) Final Lymphs % 05/18/2023 12:03:37 25.8 18.0-42.0 (%) Final Monos 05/18/2023 12:03:37 9.6 1.0-11.0 (%) Final Eosinophils 05/18/2023 12:03:37 1.7 0.0-6.0 (%) Final Basos 05/18/2023 12:03:37 1.3 0.0-2.0 (%) Final Immature Granulocyte, Percent 05/18/2023 12:03:37 1.1 0.0-2.0 (%) Final Absolute Segs 05/18/2023 12:03:37 5.84 1.80-7.70 (K/uL) Final Lymphs, absolute 05/18/2023 12:03:37 2.49 1.00-4.80 (K/ul) Final Monos, Abs 05/18/2023 12:03:37 0.93 0.00-1.10 (K/uL) Final Eos, Abs 05/18/2023 12:03:37 0.16 0.00-0.70 (K/uL) Final Basos, Abs 05/18/2023 12:03:37 0.13 0.00-0.20 (K/uL) Final Immature Granulocytes, Number 05/18/2023 12:03:37 0.11 0.00-0.20 (K/uL) Final Performing Location [facility] [address] [facility] [address]
--- OUTSIDE RECORDS SUMMARY | 2023-07-11 10:12 | External Medical Summary | Summary of Care ---
Author Name Unknown Organization [facility] Address [address] [place] [address] Phone [phone] Care Team Providers Care Senior Abap Developer Name Role Phone Terry Resendez MD Primary Care Provider Reason for Visit * Reason Onset Date Comments Precert Approved 04/28/2023 [facility]GALITY Encounter Details Date Type Department Care Team Description 04/28/2023 Telephone Neurology [facility] [address] [place] [address] Elsie Capone MD [address] [place] [address] Precert Approved ( EMGALITY) Allergies Active Allergy Reactions Severity Noted Date Comments Ciprofloxacin Hives 09/01/2017 Statins 11/15/2020 All statins Simvastatin 05/07/2006 Severe myalgia's documented as of this encounter (statuses as of 05/07/2023) Medications Medication Sig Dispensed Refills Start Date End Date Status ASPIRIN EC 81 MG PO TBECIndications:Esther nary atherosclerosis of [place] coronary artery Take one pill daily 100 [...] Self- administered - route pre-cert request to [id number] See corresponding visit note(s) for additional supporting [...] Specialty Care Team Description 06/15/2023 Laboratory [facility] [address] [place] [facility] [place] [address] 08/12/2023 Office Visit Cardiology Terry Garcia PA-C [address] [place] [address] 08/27/2023 Hospital Encounter Surgery Dat Narayanan MD [address] [place] [address] 08/27/2023 Surgery Surgery Dat Narayanan MD [address] [place] [address] COLONOSCOPY FLEXIBLE PROXIMAL DIAGNOSTIC 10/16/2023 Office Visit Family Medicine Terry Resendez MD [address] [place] [address] 10/22/2023 Office Visit Neurology Elsie Capone MD [address] [place] [address] Scheduled Procedures Name Priority Associated Diagnoses Date/Ti me COLONOSCOPY FLEXIBLE PROXIMAL DIAGNOSTIC History of colonic polyps 08/27/2023 9:41 AM EST Health Maintenance Due Date Last Done Comments DISCUSS TOBACCO CESSATION (REFER TO SMARTSET #5641) 1955 COVID-19 Vaccine (#1) 04/05/1956 Alpha-1 Antitrypsin [...] D LEVEL ONCE IN A LIFETIME-USE SMARTSET# 40721 Completed 12/18/2015, 02/09/2015, 06/29/2014, Additional history exists LUNG CANCER SCREENING - USE SMARTSET 29961 Completed 06/20/2019, 07/25/2017, 07/11/2017, Additional history exists [...] this encounter Medical Devices Implanted Type Area Core Analysis Operator Device Identifier Shelf Expiration Date Model / Serial / Lot Stent Carotid [id number] - [id number] Implanted:Qty: 1 on 08/23/2013 at OR [facility] Right: Carotid [facility]ICES 02/21/2016 [id number] / / [id number] documented as of this encounter Advance Directives [...] the patient have Health Care Power of Hydro Technician? No Code Status History Code Status Date Activated Date Inactivated Comments Full Code 07/10/2017 5:59 PM 07/13/2017 3:18 PM Thi s order reflects the patients wishes and were consensually agreed upon. Question Answer Comments Discussion of Advance Directives occurred with: Patient/Family Does the patient have a Living Will? Yes, not currently available Does the patient have Health Care Power of Hydro Technician? No Full Code 08/23/2013 8:39 AM 08/24/2013 2:49 PM This order reflects the patients wishes and were consensually agreed upon. Full Code 08/02/2013 7:49 PM 08/06/2013 12:55 AM Th is order reflects the patients wishes and were consensually agreed upon. Question Answer Comments Discussion of Advance Directives occurred with: Patient/Family Care Teams Senior Abap Developer Relationship Specialty Start Date End Date Terry Resendez MD [address] [place] [address] PCP - General 04/07/1996 documented as of this encounter
--- OUTSIDE RECORDS SUMMARY | 2023-07-11 10:12 | External Medical Summary | Summary of Care ---
Author Name Unknown Organization [facility] Address [address] [place] [address] Phone [phone] Care Team Providers Care Respiratory Support Technician Name Role Phone Terry Resendez MD Primary Care Provider Reason for Visit * Reason Comments Return Neuro Encounter Details Date Type Department Care Team Description 04/20/2023 Office Visit Neurology [facility] [address] [facility] [place] [address] Elsie Gil [facility] [address] [facility] [address] Asymptomatic stenosis of right carotid artery*; Seizure, grand mal (HCC) Allergies Active Allergy Reactions Severity Noted Date Comments Ciprofloxacin Hives 09/01/2017 Statins 11/15/2020 All statins Simvastatin 05/07/2006 Severe myalgia's documented as of this encounter (statuses as of 04/20/2023) Medications Medication Sig Dispensed Refills Start Date End Date Status ASPIRIN EC 81 MG PO TBECIndications:Esther nary atherosclerosis of [place] coronary artery Take one pill daily 100 [...] 14 days. 6 mL 3 3 Active HYDROcodone-Acetamin ophen 5-325 MG Oral TabletIndications:Ch ronic bilateral low back pain with right-sided sciatica Take 1 Tablet by mouth 3 times a day as needed for Pain, Mild or Pain, Moderate. 30 day RX 90 Tablet 0 3 Active Ajovy 225 MG/1.5ML Subcutaneous Solution Auto-injector (Fremanezumab-vfrm) Inject 1.5 ml under the skin once a month 1.5 mL 5 3 Active Ajovy 225 MG/1.5ML Subcutaneous Solution Auto-injector (Fremanezumab-vfrm) Inject 1.5 ml under the skin once a month 1.5 mL 5 3 04/20/20 23 Discontinu ed(Refill) Hospital, Clinic, or Other Facility Administered Medication Ordered Dose Route Frequency Start Date End Date Status albuterol sulfate (PROVENTIL) (2.5 MG/3ML) 0.083% inhalation solution 2.5 mgIndications:COPD, severity to be determined (HCC) 2.5 mg NEBULIZER Q4H PRN 07/05/2019 Active documented as of this encounter (statuses as of 04/20/2023) Active Problems Problem Noted Date Hemiplegia and [...] as of this encounter (statuses as of 04/20/2023) Resolved Problems Problem Noted Date Resolved Date [...] as of this encounter (statuses as of 04/20/2023) Immunizations Name Administration Dates Next Due Pneumococcal [...] on file documented as of this encounter Last Filed Vital Signs Vital Sign Reading Time Taken Comments Blood Pressure 144/72 04/20/2023 12:47 PM EDT Pulse 60 04/20/2023 12:47 PM EDT Temperature 36.4 C (97.5 F) 04/20/2023 12:47 PM E DT Respiratory Rate 18 04/20/2023 12:47 PM EDT Oxygen Saturation 97% 04/20/2023 12:47 PM EDT Inhaled Oxygen Concentration - - Weight 98.9 kg (218 lb 1.6 oz) 04/20/2023 12:47 PM EDT Height - - Body Mass Index 30.42 04/15/2023 3:19 PM EDT documented in this encounter Functional Status Functional Status Response [...] Yes 07/26/2017 documented as of this encounter Progress Notes * Elsie Gil MD - 04/20/2023 1:50 PM EDT Images from the original note were not included. CLINIC NOTES Neurology [facility] [address] [place] [address] Patel León : 1955 NEUROLOGY OUTPATIENT NOTE 04/20/2023 HISTORY: The patient is referred for consultation by Dr. Resendez, who will be receiving a copy of this note. Patient comes today in follow-up of seizure. His last Keppra level was therapeutic but as he had had another episode we increased the dose further. He had an episode of unresponsiveness MRI MRA were noncontributory IE showed no new abnormality although raise the question whether not there was any if right internal carotid intra plaque stenosis. This prompted a carotid ultrasound which wasshowed a patent stent. His echo and Holter performed a other providers did not find pathology that would cause transient ischemia. I have reviewed the following 12/19/2022 1:19 PM MRI BRAIN W WO CONTRAST Order: [id number] Status: Edited Result - FINAL Visible to patient: Yes (seen) Next appt: 06/15/2023 at 10:00 AM in Laboratory (Laboratory) Dx: Brain TIA 0 Result Notes Details Reading Physician Reading Date Result Priority Tomas Thomas MD [phone] 12/24/2022 Addenda ADDENDUM: Upon comparison with outside MR angiography head dated 07/25/2017 and MRA neck dated 03/21/2015,, there has been no significant change in appearance of the major neck and intracranial vasculature. Appearance of the brain parenchyma is also similar and without significant change from 03/02/2018. Signed by Tomas Thomas MD on 01/28/2023 16:45 Narrative & Impression EXAM MRA HEAD WO CONTRAST; MRI BRAIN W WO CONTRAST; MRA NECK W WO CONTRAST-12/19/2022 1:17 pm; 12/19/2022 1:19 pm; 12/19/2022 1:18 pm HISTORY aphasia; Headache; Chronic SANCHEZ (>= 3 months); Neurologic deficit, non-traumatic; Language deficit; Neurologic deficit onset <= 24 hours; No known/automatically detected potential contraindications to iodinated contrast; episode of being unable to speak x 20 min TECHNIQUE MRA of the [place] was performed without the use of intravenous contrast using 3D mzun-sp-wyiniy sequence. 3D reformatted images were reviewed. COMPARISON MRI brain dated 03/02/2018 FINDINGS MRA head: No flow related enhancement seen within the petrous or cavernous left internal carotid artery. There is faint reconstitution of the supraclinoid segment. The right internal carotid artery is patent and demonstrates normal flow related enhancement. The anterior cerebral arteries are patent bilaterally as is the left middle cerebral artery. The left middle cerebral artery is patent no the anterior M2 branches are decreased in caliber. No occlusion or stenosis involving the posterior circulation. No MRA evidence of intracranial aneurysm. MRA neck: Left vertebral artery is dominant. No vertebral artery stenosis or occlusion. The left internal carotid artery is occluded at its origin. Susceptibility artifacts seen within the proximal right internal carotid artery related to endovascular stent. Cannot evaluate patency of the stent due to artifact. The right internal carotid artery distal to the stent is patent. MRI brain: Generalized volume loss is present with prominence of the ventricles and sulci. No diffusion evidence of acute infarction. Area of encephalomalacia and gliosis related to prior anterior left MCA territory infarct. Small area of encephalomalacia and gliosis also seen along the right parietal lobe. Scattered foci of hyperintense T2 FLAIR white matter signal seen within the cerebral white matter andpons compatible with underlying chronic small vessel ischemia. No midline shift. No abnormal intracranial enhancement. Loss of vascular flow void within the left internal carotid artery. Please see MRA findings. Cerebellar tonsils are normal in position and configuration. The sellar and parasellar regions are unremarkable. Trace mucosal thickening within the ethmoid air cells and there is a moderate right mastoid effusion. IMPRESSION IMPRESSION 1. Occlusion of the left internal carotid artery at its origin. 2. Susceptibility artifact related to endovascular stent at the origin of the right cervical internal carotid artery. Cannot evaluate for intra stent stenosis due to artifact. The remainder of the right internal carotid artery demonstrates flow related enhancement without occlusion or stenosis. 3. Left internal carotid artery at the skull base is occluded with faint distal reconstitution of the supraclinoid segment. There is also diminished caliber of M2 branches related to area of previousinfarction within the anterior left MCA territory. The remainder of the intracranial circulation isotherwise patent without occlusion, stenosis, or MRA evidence of intracranial aneurysm. 4. No acute intracranial abnormality. Exam End Date Exam End Time 02/02/2023 3:23 PM [facility] DUPLEX CAROTID BILAT Order: [id number] Status: Final result Visible to patient: Yes (seen) Next appt: 06/15/2023 at 10:00 AM in Laboratory (Laboratory) Dx: Asymptomatic stenosis of right caroti... 0 Result Notes Details Reading Physician Reading Date Result Priority Prince Astorga MD [phone] 02/02/2023 Routine Narrative & Impression VASCULAR LAB RESULTS DATE OF EXAM: 02/02/23 PRESENTING CONDITIONS: fu mia stent, cta had diff eval for intrastent stenois,.lica occlusion This is an interpretation of an exam performed at [facility]. PHYSICIAN REPORT Carotid Artery Duplex Examination Immediately before proceeding with the vascular lab procedure reported below, the identity of the patient, the correct exam and the correct procedural site were verified. Bridges scale and color flow Doppler imaging was performed for evaluation of the right carotid artery. Duplex examination of the right carotid artery identifies atherosclerotic plaque at the carotid bifurcation. The plaque is echogenic and appears to have an irregular surface. Color Doppler imaging was performed for evaluation of the right carotid bifurcation. Spectral analysis of the right internalcarotid artery demonstrates peak systolic velocities of 100.0 cm/sec. Maximum end diastolic velocities are 42.1 cm/sec.. Peak right common carotid velocity is 62.9 cm/sec. The right internal carotid to common carotid ratio is 1.6. The right external carotid artery has a peak velocity of 81.8 centimeters per second. Bridges scale and color flow Doppler imaging was performed for the evaluation of the left carotid artery. Duplex examination of the left carotid artery identifies atherosclerotic plaque at the carotid bifurcation. The plaque is echogenic and appears to have an irregular surface. Color Doppler imaging was performed for the evaluation of the left carotid bifurcation. Spectral analysis of the left internal carotid artery demonstrates peak systolic velocities of 0.00 cm/sec. Maximum end diastolic velocities are 0.00 cm/sec. Peak left common carotid velocity is 56.6 cm/sec. The left internal carotid to common carotid ratiois 75.6. The left external carotid artery has a peak velocity of 0.00 centimeters per second. The right vertebral artery is reported to have antegrade flow but no image is stored of the right vertebral artery. The left vertebral artery demonstrates antegrade flow. Impression: Right carotid artery duplex examination indicates evidence of less than 50% stenosis of the internal carotid artery. The stent is patent. Left carotid artery duplex examination indicates evidence of an occlusion of the internal carotid artery. The patient has up to 3 migraines per week. Lasmiditan has been helpful. When he was here last I prescribed Ajovy but it is unclear if it has been approved. Past Medical History: Diagnosis Date Acute ischemic VBA thalamic stroke, left (HCC) 08/04/2013 Benign neoplasm of colon 06/05/09 adenomatous/repeat colonoscopy in 1 yr Carotid artery stenosis CLASSICAL MIGRAINE WITHOU MENTION OF INTRACTABLE MIGRAINE 01/14/2002 Compression fracture of L2 lumbar vertebra (HCC) 10/16/2015 Coronary atherosclerosis of [place] coronary artery 2005 total occ RCA// 40% prox LAD Displacement of cervical intervertebral disc without myelopathy 01/14/2002 Esophageal reflux 01/14/2002 HTN, goal below 140/90 ICAO (internal carotid artery occlusion) 08/04/2013 Left complete, right near complete Mixed dyslipidemia Multiple fractures of ribs of right side 02/10/2013 Tobacco use disorder Patient Active Problem List Diagnosis Code Esophageal reflux K21.9 CLASSICAL MIGRAINE WITHOU MENTION OF INTRACTABLE MIGRAINE G43.109 CERVICAL DISC DISPLACMNT M50.20 GENERAL OSTEOARTHROSIS M15.9 IMPOTENCE, 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 ADVANCE DIRECTIVE INFORMATION Dyslipidemia, goal LDL below 70 E78.5 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 ICAO (internal carotid artery occlusion) I65.29 Aphasia, post-stroke I69.320 Statin intolerance S/P angioplasty with stent Z95.820 Mild hearing loss of left ear H91.92 HTN, goal below 140/90 I10 CVA, old, speech/language deficit I69.328 Vitamin D deficiency E55.9 Type 2 diabetes mellitus with hemoglobin A1c goal of less than 7.0% ([facility]) E11.9 COPD, severity to be determined ([facility]) J44.9 MEDICATION USE AGREEMENT [id number] Senile osteoporosis M81.0 Aortic dissection, thoracic ([facility]) I71.019 Urinary retention R33.9 History of ischemic vertebrobasilar artery thalamic stroke Z86.73 Coronary artery disease with exertional angina ([facility]) I25.118 Hemiplegia, unspecified affecting right dominant side ([facility]) G81.91 Chronic bilateral low back pain with right-sided sciatica M54.41, G89.29 Spondylosis, lumbar, with myelopathy M47.16 DDD (degenerative disc disease), lumbar M51.36 Other specified peripheral vascular diseases ([facility]) I73.89 Hemiplga following cerebral infrc aff right dominant side ([facility]) I69.351 Diabetes mellitus with peripheral angiopathy ([facility]) E11.51 Acute ischemic stroke ([facility]) I63.9 Bradycardia R00.1 Hemiplegia and hemiparesis following unspecified cerebrovascular disease affecting right dominant side ([facility]) I69.951 Recurrent major depressive disorder ([facility]) F33.9 Past Surgical History: Procedure Laterality Date ANESTHESIA PROCEDURE [facility] 08/05/2013 ANESTHESIA FOR PACU PROCEDURE OTHER [place] [facility] [place] [facility] CARDIAC CATH-CARDIOLOGY ONLY 2006 COLONOSCOPY W/ LESION REMOVAL, SNARE 06/05/09 done one 12mm polyp in distal sigmoid,,one 3mm in transverse colon, 5mm polyp in proximal sigmoid, diverticulosis /adenomatous/repeat colonoscopy in 1 yr COLONOSCOPY, DIAGNOSTIC ([facility]UM) 01/15/2016 hyperplatic & serrated adenomatous polyp, diverticulosis, repeat 3 yrs/[facility] COLONOSCOPY, DIAGNOSTIC (RECTUM) N/A 04/05/2019 poor prep/diverticulosis sigmoid colon/biopsies show benign polyp/recall 3 years/COLONOSCOPY FLEXIBLE PROXIMAL DIAGNOSTIC performed by Dat Narayanan MD at OR [facility] CORONARY ANGIOGRAPHY W/LEFT HEART CATH 05/25/2017 CORONARY ANGIOGRAPHY W/LEFT HEART CATH performed by Martha Alford MD at CARDIAC LABS [facility] IR VERTEBRAL AUGMENTATION TECH ONLY 2015 L2/ Dr Barcenas MISCELLANEOUS ORDER left lateral elbow ligament repair MISCELLANEOUS ORDER ([facility] ONLY) 09/27 right rotator cuff repair/ [place] OTHER 09/30 left rotator cuff repair OTHER 2007 bilateral hip replacement (Dr Benavidez) REMOVAL OF TONSILS, AGE 12+ TOTAL HIP REPLACEMENT & PROSTHESIS both hips, AVN TRANSCATH STENT-CAROTID ARTERY, W/EMBOL PROTECTION 08/23/2013 right carotid stent with cerebral angiogram. 08/23/13 Dr. Chen. [facility] OR TRANSCATH STENT-CAROTID ARTERY, W/EMBOL PROTECTION Xact Carotid Stent 08/05- safe up to 3T Social History Socioeconomic History Marital status: Spouse name: Hilary Number of children: 3 Years of education: 12 Highest education level: Not on file Occupational History Employer: [employer] Comment: [employer] Tobacco Use Smoking status: Every Day Packs/day: 1.00 Years: 40.00 Pack years: 40.00 Types: Cigarettes Smokeless tobacco: Former Types: Chew Vaping Use Vaping Use: Never used Substance and Sexual Activity Alcohol use: Yes Alcohol/week: 14.0 standard drinks Types: 14 12 oz of beer per week Comment: 4-5 beers or more everyday Drug use: No Sexual activity: Yes Partners: Female Other Topics Concern Service Not Asked Blood Transfusions Not Asked Caffeine Concern Not Asked Occupational Exposure Not Asked Hobby Hazards Not Asked Sleep Concern Not Asked Stress Concern Not Asked Weight Concern Not Asked Special Diet Not Asked Back Care Not Asked Exercise Not Asked Bike Helmet Not Asked Seat Belt Yes Self-Exams Not Asked Social History Narrative Not on file Social Determinants of Health Financial Resource Strain: Not on file Food Insecurity: Not on file Transportation Needs: Not on file Physical Activity: Not on file Stress: Not on file Social Connections: Not on file Intimate Partner Violence: Not on file Housing Stability: Not on file Family History Problem Relation Age of Onset Heart Disorder Mother cabgx4 age 65 Arthritis Mother Arthritis Father Heart Disorder Father Cancer Father Arthritis Daughter Asthma Sister Arthritis Grandmother (Paternal) Current Outpatient Medications Medication Sig Dispense Refill ASPIRIN EC 81 MG PO TBEC Take one pill daily 100 3 VITAMIN B-1 100 MG PO TABS 1 tab daily. FOLIC ACID 400 MCG PO TABS daily Cholecalciferol (VITAMIN D3) 2000 units Capsule Take 1 Capsule by mouth in the morning. Acetaminophen 500 MG Oral Tablet Take 1 Tablet by mouth every 4 hours as needed for Pain. As Tab 0 Ondansetron HCl 4 MG Oral Tablet (Zofran) TAKE ONE TABLET BY MOUTH EVERY 6 HOURS NEEDED FOR NAUSEA. 30 Tab 0 Nitroglycerin 0.4 MG Sublingual Tablet Sublingual (Nitrostat) Place under the tongue 1 Tablet every5 minutes as needed for Pain, Chest. up to 3 doses in 15 minutes 25 Tablet 11 Tamsulosin HCl 0.4 MG Oral Capsule (Flomax) Take by mouth 1 Capsule every other day . 45 Capsule 3 Isosorbide Mononitrate ER 60 MG Oral Tablet Extended Release 24 Hour (Imdur) TAKE ONE TABLET BY MOUTH DAILY 90 Tablet 3 DULoxetine HCl 30 MG Oral Capsule Delayed Release Particles (Cymbalta) 1 cap in AM and 2 caps in PM. Do not cut, crush or chew 270 Capsule 3 Finasteride 5 MG Oral Tablet (Proscar) Take 1 Tablet by mouth in the morning. 90 Tablet 3 Clopidogrel Bisulfate 75 MG Oral Tablet (pLAVix) TAKE 1 TABLET BY MOUTH DAILY 90 Tablet 3 Metoprolol Tartrate 25 MG Oral Tablet (Lopressor) Take 1 Tablet by mouth in the morning. Omeprazole 20 MG Oral Capsule Delayed Release (PriLOSEC) Take 1 Capsule by mouth in the morning. 90Capsule 1 levETIRAcetam 500 MG Oral Tablet (Keppra) 1 twice a day (dose increase) 180 Tablet 1 Ajovy 225 MG/1.5ML Subcutaneous Solution Auto-injector (Fremanezumab-vfrm) Inject 1.5 ml under the skin once a month 1.5 mL 5 Lasmiditan Succinate 50 MG Oral Tablet (Reyvow) Take one at onset of migraine. Max 1 dose in 24hours 10 Tablet 5 Praluent 75 MG/ML Subcutaneous Solution Auto-injector (Alirocumab) Inject 75 mg (1 pen) under the skin every 14 days. 6 mL 3 HYDROcodone-Acetaminophen 5-325 MG Oral Tablet Take 1 Tablet by mouth 3 times a day as needed for Pain, Mild or Pain, Moderate. 30 day RX 90 Tablet 0 cyclobenzaprine (FLEXERIL) 10 MG Tablet Take 1 Tab by mouth 3 times a day as needed for Muscle spasms. (Patient not taking: Reported on 11/17/2022) 20 Tab 1 Tvhtarlztdkiu-Bzmnhtioa-DTNC 65-100-325 MG Oral Capsule Two at onset of migraine may repeat 1 every1 hour maximum of 4 in 24 hours. Compounded formulation (Patient not taking: Reported on 04/15/2023)30 Capsule 5 Spacer/Aero-Holding Chambers Device Use with inhaler. (Patient not taking: Reported on 04/15/2023) 1Each 0 ProAir HFA 108 (90 Base) MCG/ACT Inhalation Aerosol Solution Inhale 2 Puffs by mouth every 4 hours as needed for Wheezing. (Patient not taking: Reported on 04/15/2023) 18 g 1 Current Facility-Administered Medications Medication Dose Route Frequency Provider Last Rate Last Admin albuterol sulfate (PROVENTIL) (2.5 MG/3ML) 0.083% inhalation solution 2.5 mg 2.5 mg Nebulizer Q4H PRN Joselyn Merida DO Review of patient's allergies indicates: Allergen Reactions Ciprofloxacin Hives Statins All statins Zocor [Simvastatin] Severe myalgia's REVIEW OF SYSTEMS: As above PHYSICAL EXAM: BP 144/72 (BP Site: Left Arm, BP Position: Sitting, BP Cuff Size: Regular) | Pulse 60 | Temp 36.4 C (97.5 F) (Tympanic) | Resp 18 | Wt 98.9 kg (218 lb 1.6 oz) | SpO2 97% | BMI 30.42 kg/m | BSA 2.23 m Patient is awake and alert speech is unremarkable IMPRESSION: History of seizure continue Sharda no adverse effect. Will check level when he returns in 6 months History of unresponsive episode uncertain etiology no dysrhythmia clot new infarct noted continue risk factor modification and follow Migraine headache will look into the approval process of his CGRP inhibitor. We discussed common side effects including muscle cramps constipation. Return in 6 months Elsie Gil MD 04/20/2023 1:52 PM documented in this encounter Nursing Notes * Gail Hamilton LPN - 04/20/2023 12:46 PM EDT Patient verified identity by spelling of last name and date.. Chief Complaint Patient presents with Return Neuro documented in this encounter Miscellaneous Notes * Addendum Note - Elsie Gil MD - 04/20/2023 2:01 PM EDTAddended by: ELSIE GIL on: 04/20/2023 02:01 PM Modules accepted: Orders documented in this encounter Plan of Treatment Upcoming Encounters Date Type Specialty Care Team Description 05/07/2023 Hospital Encounter Surgery Dat Narayanan MD [address] [place] [address] 05/07/2023 Surgery Surgery Dat Narayanan MD [address] [place] [address] COLONOSCOPY FLEXIBLE PROXIMAL DIAGNOSTIC 06/15/2023 Laboratory Laboratory [facility] [address] [place] [address] 08/12/2023 Office Visit Cardiology Terry Garcia PA-C [address] [place] [address] 10/16/2023 Office Visit Family Medicine Terry Resendez MD [address] [place] [address] 10/22/2023 Office Visit Neurology Elsie Gil MD [address] [place] [phone] Scheduled Procedures Name Priority Associated Diagnoses Date/Ti me COLONOSCOPY FLEXIBLE PROXIMAL DIAGNOSTIC History of colonic polyps 05/07/2023 1:06 PM EDT Health Maintenance Due Date Last Done Comments DISCUSS TOBACCO CESSATION (REFER TO SMARTSET #3292) 1955 COVID-19 Vaccine (#1) 04/05/1956 Alpha-1 Antitrypsin [...] 10/17/2023 023, 10/16/2021, 10/11/2019, Additional history exists DIABETES-FOOT EXAM 10/17/2023 10/17/2022, 0 09/05/2020, 10/11/2019, Additional history exists B-12 11/18/2023 11/17/2022, 09/25, 10/16/2021, Additional history exists GFR 01/30/2024 01/29/2023, 10/23, 10/17/2022, Additional history exists O2 ASSESSMENT COMPLETED IN PAST YEAR FOR COPD 04/15/2024 04/15/2023 DTaP,Tdap,and Td Vaccines (2 - Td or Tdap) 01/17/2026 01/18/2016, 03/15/2004 VITAMIN D LEVEL ONCE IN A LIFETIME-USE SMARTSET# [id number] Completed 12/18/2015, 02/09/2015, 06/29/2014, Additional history exists LUNG CANCER SCREENING - USE SMARTSET [id number] Completed 06/20/2019, 07/25/2017, 07/11/2017, Additional history exists [...] this encounter Medical Devices Implanted Type Area Ticketing Clerk Device Identifier Shelf Expiration Date Model / Serial / Lot Stent Carotid [id number] - [id number] Implanted:Qty: 1 on 08/23/2013 at OR [facility] Right: Carotid [facility] VASCULAR DEVICES 02/21/2016 [id number] / / [id number] documented as of this encounter Visit Diagnoses Diagnosis Asymptomatic stenosis of right carotid artery- Primary Seizure, grand mal (HCC) Other convulsions History of colonic polyps Personal history of [...] patient have Health Care Power of Field Applications Specialist? No Code Status History Code Status Date Activated Date Inactivated Comments Full Code 07/10/2017 5:59 PM 07/13/2017 3:18 PM Thi s order reflects the patients wishes and were consensually agreed upon. Question Answer Comments Discussion of Advance Directives occurred with: Patient/Family Does the patient have a Living Will? Yes, not currently available Does the patient have Health Care Power of Field Applications Specialist? No Full Code 08/23/2013 8:39 AM 08/24/2013 2:49 PM This order reflects the patients wishes and were consensually agreed upon. Full Code 08/02/2013 7:49 PM 08/06/2013 12:55 AM Th is order reflects the patients wishes and were consensually agreed upon. Question Answer Comments Discussion of Advance Directives occurred with: Patient/Family Care Teams Respiratory Support Technician Relationship Specialty Start Date End Date Terry Resendez MD [address] [place] [address] PCP - General 04/07/1996 documented as of this encounter"
--- OUTSIDE RECORDS SUMMARY | 2023-07-11 10:12 | External Medical Summary | Summary of Care ---
Author Name Unknown Organization [facility] Address [address] [place] [address] Phone [phone] Care Team Providers Care Farm Equipment Engineer Name Role Phone Terry Resendez MD Primary Care Provider Reason for Visit * Reason Onset Date Comments Precert Approved 04/28/2023 EMGALITY Encounter Details Date Type Department Care Team Description 04/28/2023 Telephone Neurology [facility] [address] [place] [address] Elsie Capone MD [address] [place] [address] Precert Approved ( EMGALITY) Allergies Active Allergy Reactions Severity Noted Date Comments Ciprofloxacin Hives 09/01/2017 Statins 11/15/2020 All statins Simvastatin 05/07/2006 Severe myalgia's documented as of this encounter (statuses as of 05/12/2023) Medications Medication Sig Dispensed Refills Start Date End Date Status ASPIRIN EC 81 MG PO TBECIndications:Cor onary atherosclerosis of [place] coronary artery Take one pill daily 100 3 07/20/20 09 Active VITAMIN B-1 100 MG PO TABS 1 tab daily. 0 Active FOLIC ACID 400 MCG PO TABS daily 0 Active Cholecalciferol (VITAMIN D3) 2000 units Capsule Take 1 Capsule by mouth in the morning. 0 Active Acetaminophen 500 MG Oral Tablet Take 1 Tablet by mouth every 4 hours as needed for Pain. As needed 30 Tab 0 06/15/20 18 Active cyclobenzaprine (FLEXERIL) 10 MG Tablet Take 1 Tab by mouth 3 times a day as needed for Muscle spasms. 20 Tab 1 06/21/20 19 Active Additional Information Patient not taking.Reported on 11/17/2022 Ondansetron HCl 4 MG Oral Tablet (Zofran)Indications :Nausea without vomiting TAKE ONE TABLET BY MOUTH EVERY 6 HOURS NEEDED FOR NAUSEA. 30 Tab 0 01/30/20 21 Active Isometheptene-Dichl oral-APAP 65-100-325 MG Oral Capsule Two at onset of migraine may repeat 1 every 1 hour maximum of 4 in 24 hours. Compounded formulation 30 Capsule 5 10/30/19 22 Active Additional Information Patient not taking.Reported on 04/15/2023 Nitroglycerin 0.4 MG Sublingual Tablet Sublingual (Nitrostat) Place under the tongue 1 Tablet every 5 minutes as needed for Pain, Chest. up to 3 doses in 15 minutes 25 Tablet 11 12/03/19 22 Active Spacer/Aero-Holding Chambers DeviceIndications:C OPD exacerbation (HCC) Use with inhaler. 1 Each 0 08/02/20 Active Additional Information Patient not taking.Reported on 04/15/2023 ProAir HFA 108 (90 Base) MCG/ACT Inhalation Aerosol SolutionIndications :COPD exacerbation (HCC) Inhale 2 Puffs by mouth every 4 hours as needed for Wheezing. 18 g 1 08/02/20 Active Additional Information Patient not taking.Reported on 04/15/2023 Isosorbide Mononitrate ER 60 MG Oral Tablet Extended Release 24 Hour (Imdur)Indications: Exertional angina (HCC) TAKE ONE TABLET BY MOUTH DAILY 90 Tablet 3 08/11/20 22 Active DULoxetine HCl 30 MG Oral Capsule Delayed Release Particles (Cymbalta)Indicatio ns:Current moderate episode of major depressive disorder, unspecified whether recurrent (HCC) 1 cap in AM and 2 caps in PM. Do not cut, crush or chew 270 Capsule 3 10/17/19 23 Active Finasteride 5 MG Oral Tablet (Proscar) Take 1 Tablet by mouth in the morning. 90 Tablet 3 11/06/19 23 Active Clopidogrel Bisulfate 75 MG Oral Tablet (pLAVix)Indications :Acute ischemic stroke (HCC) TAKE 1 TABLET BY MOUTH DAILY 90 Tablet 3 11/28/19 23 Active Metoprolol Tartrate 25 MG Oral Tablet (Lopressor) Take 1 Tablet by mouth in the morning. 0 11/19/19 23 Active Omeprazole 20 MG Oral Capsule Delayed Release (PriLOSEC) Take 1 Capsule by mouth in the morning. 90 Capsule 1 01/30/20 23 Active levETIRAcetam 500 MG Oral Tablet (Keppra) 1 twice a day (dose increase) 180 Tablet 1 01/31/20 23 Active Lasmiditan Succinate 50 MG Oral Tablet (Reyvow) Take one at onset of migraine. Max 1 dose in 24hours 10 Tablet 5 02/04/20 23 Active Praluent 75 MG/ML Subcutaneous Solution Auto-injector (Alirocumab) Inject 75 mg (1 pen) under the skin every 14 days. 6 mL 3 03/03/20 23 Active Emgality 120 MG/ML Subcutaneous Solution Auto-injector (Galcanezumab-gnlm) Inject 2 ml (2 pens) under the skin for the first dose then 1 ml (1 pen) once a month thereafter 2 mL 0 05/04/20 23 Active Tamsulosin HCl 0.4 MG Oral Capsule (Flomax)Indications :Obstructive uropathy Take by mouth 1 Capsule every other day . 45 Capsule 3 06/03/20 22 023 Discontinued Ajovy 225 MG/1.5ML Subcutaneous Solution Auto-injector (Fremanezumab-vfrm) Inject 1.5 ml under the skin once a month 1.5 mL 5 04/20/20 23 023 Discontinued(Fo rmulary/Cost) Hospital, Clinic, or Other Facility Administered Medication Ordered Dose Route Frequency Start Date End Date Status albuterol sulfate (PROVENTIL) (2.5 MG/3ML) 0.083% inhalation solution 2.5 mgIndications:COPD, severity to be determined (HCC) 2.5 mg NEBULIZER Q4H PRN 07/05/2019 Active documented as of this encounter (statuses as of 05/12/2023) Active Problems Problem Noted Date Hemiplegia and [...] as of this encounter (statuses as of 05/12/2023) Resolved Problems Problem Noted Date Resolved Date [...] as of this encounter (statuses as of 05/12/2023) Immunizations Name Administration Dates Next Due Pneumococcal [...] Telephone Encounter - Gail Hamilton LPN - 05/12/2023 1:12 PM EDT Patient has applied for financial assistance for the Emgality. Forms completed and placed in your folder for review/signature. * Telephone Encounter - Gail Hamilton LPN - 05/05/2023 8:37 AM EDT Neurology Pre-Cert Request Medication/Disease State Information: Medication: Galcanezumab (Emgality) - 120mg/ml Pen - Initiation - 240mg once then, 120mg once a month Diagnosis (including ICD-10): Migraine - Chronic Migraine G43.709 - Self- administered - route pre-cert request to [id number] See corresponding visit note(s) for additional supporting [...] 06/15/2023 Laboratory Laboratory [facility] [address] [place] [address] 08/12/2023 Office Visit Cardiology Terry Garcia PA-C [address] [place] [address] 08/27/2023 Hospital Encounter Surgery Dat Narayanan MD [address] [place] [address] 08/27/2023 Surgery Surgery Dat Narayanan MD [address] [place] [address] COLONOSCOPY FLEXIBLE PROXIMAL DIAGNOSTIC 10/16/2023 Office Visit Family Medicine Terry Resendez MD [address] [place] [address] 10/22/2023 Office Visit Neurology Elsie Capone MD [address] [place] [address] Scheduled Procedures Name Priority Associated Diagnoses Date/Ti [...] D LEVEL ONCE IN A LIFETIME-USE SMARTSET# [id number] Completed 12/18/2015, 02/09/2015, 06/29/2014, Additional history exists LUNG CANCER SCREENING - USE SMARTSET 83541 Completed 06/20/2019, 07/25/2017, 07/11/2017, Additional history exists [...] this encounter Medical Devices Implanted Type Area Faucets Assembler Device Identifier Shelf Expiration Date Model / Serial / Lot Stent Carotid [id number] - [id number] Implanted:Qty: 1 on 08/23/[address] [facility] [place] Right: Carotid [facility] : VASCULAR DEVICES 02/21/2016 [id number] / / [id number] documented as of this encounter Advance Directives [...] the patient have Health Care Power of Small Equipment Operator? No Code Status History Code Status Date Activated Date Inactivated Comments Full Code 07/10/2017 5:59 PM 07/13/2017 3:18 PM Thi s order reflects the patients wishes and were consensually agreed upon. Question Answer Comments Discussion of Advance Directives occurred with: Patient/Family Does the patient have a Living Will? Yes, not currently available Does the patient have Health Care Power of Small Equipment Operator? No Full Code 08/23/2013 8:39 AM 08/24/2013 2:49 PM This order reflects the patients wishes and were consensually agreed upon. Full Code 08/02/2013 7:49 PM 08/06/2013 12:55 AM Th is order reflects the patients wishes and were consensually agreed upon. Question Answer Comments Discussion of Advance Directives occurred with: Patient/Family Care Teams Farm Equipment Engineer Relationship Specialty Start Date End Date Terry Resendez MD [address] [place] [address] PCP - General 04/07/1996 documented as of this encounter
--- OUTSIDE RECORDS SUMMARY | 2023-07-11 10:12 | External Medical Summary ---
Author Name Unknown Address Unknown Organization K01:[facility] [address] [place] [address] Laboratory Report Ordering Provider Test Date Status CALEB DUNNE 05/18/2023 12:03:37 Final Observation Date Value Abnormality Reference (Units ) Status PSA 05/18/2023 12:03:37 1.12 <4.10 (ng/ mL) Final Performing Location [facility] [address] [place] [address]
--- OUTSIDE RECORDS SUMMARY | 2023-07-11 10:12 | External Medical Summary | Summary of Care ---
Author Name Unknown Organization [facility] Address [address] [place] [address] Phone [phone] Care Team Providers Care Econometrics Professor Name Role Phone Terry Resendez MD Primary Care Provider [phone] Reason for Referral * Evaluate & Treat - Unlimited Visits (Within 3 days (urgent)) - Pending Review Specialty Diagnoses / Procedures Referred By Kishore hughes Referred To Contact Urology Diagnoses Urinary retention Urinary incontinence, unspecified type Subjective fever Dysuria Nichole Guido MD [address] [place] [address] Referral ID Status Reason Start Date Expiration Date Visits Requested Visits Authorized [id number] Pending Review Specialty Services Required 05/18/[phone] Question Answer Referral Priority Within 3 days (urgent) What is the patient being referred for? BPH Reason for Visit * Reason Comments Urinary Tract Infection Symptoms Pt stat es that he saleem been having burning sensation, urinary frequency, pt states that he is not aware when he is urinating, lightheadedness, dizziness, pt has a Hx of stroke, ongoing since last Encounter Details Date Type Department Care Team Description 05/18/2023 Office Visit [place] [address] [place] [address] Nichole Guido MD [address] [place] [address] Urinary retention*; Urinary incontinence, unspecified type; Subjective fever; Dysuria Allergies Active Allergy Reactions Severity Noted Date Comments Ciprofloxacin Hives 09/01/2017 Statins 11/15/2020 All statins Simvastatin 05/07/2006 Severe myalgia's documented as of this encounter (statuses as of 05/18/2023) Medications Medication Sig Dispensed Refills Start Date End Date Status ASPIRIN EC 81 MG PO TBECIndications:Coron johan atherosclerosis of [place] coronary artery Take one pill daily 100 [...] 25 Tablet 11 12/02/2021 Active Spacer/Aero-Holding Chambers DeviceIndications:HARDWOOD FINISHER D exacerbation (HCC) Use with inhaler. 1 [...] Active Emgality 120 MG/ML Subcutaneous Solution Auto-injector (Galcanezumab-gn) Inject 2 ml (2 pens) under the [...] Cigarettes 1 40 Smokeless Tobacco: Former Chew Tobacco Cessation:Ready to Q uit: Not Asked; Counseling Given: Not Answered Alcohol Use Standard Drinks/Week Comments Yes 14 [...] Sign Reading Time Taken Comments Blood Pressure 142/82 05/18/2023 11:36 AM EDT Pulse 64 05/18/2023 11:36 AM EDT Temperature 36.4 C (97.5 F) 05/18/2023 11:36 AM E DT Respiratory Rate 16 05/18/2023 11:36 AM EDT Oxygen Saturation 98% 05/18/2023 11:36 AM EDT Inhaled Oxygen Concentration - - Weight 98.2 kg (216 lb 6.4 oz) 05/18/2023 11:36 AM EDT Height 180.3 cm (5' 11") 05/18/2023 11:36 AM EDT Body Mass Index 30.18 05/18/2023 11:36 AM EDT documented in this encounter Functional Status [...] as of this encounter Progress Notes * Nichole Guido MD - 05/18/2023 11:25 AM EDT ASSESSMENT / PLAN: Patel León is a 67 year old male with PMHx BPH - here for dysuria BPH with LUTS Subjective feveres - worsening urinary retention and dysuria UA in office is bland Complete labs today Start empiric bactrim for presumably prostatitis - reviewed length of use is up to 6 weeks F/u pending results Urinary retention (Primary) - CULTURE, URINE, QUANTITATIVE - URINALYSIS, POINT OF CARE (ENTER/EDIT) - PSA; Future; Expected date: 05/18/2023 - CBC WITH WBC DIFFERENTIAL AND ANEMIA REFLEX WORKUP; Future; Expected date: 05/18/2023 - COMPREHENSIVE METABOLIC PANEL; Future; Expected date: 05/18/2023 - Sulfamethoxazole-Trimethoprim 800-160 MG Oral Tablet (Bactrim DS); Take 1 Tablet by mouth in the morning and 1 Tablet before bedtime. Until gone.. - UROLOGY REFERRAL OP Urinary incontinence, unspecified type - CULTURE, URINE, QUANTITATIVE - URINALYSIS, POINT OF CARE (ENTER/EDIT) - CBC WITH WBC DIFFERENTIAL AND ANEMIA REFLEX WORKUP; Future; Expected date: 05/18/2023 - COMPREHENSIVE METABOLIC PANEL; Future; Expected date: 05/18/2023 - Sulfamethoxazole-Trimethoprim 800-160 MG Oral Tablet (Bactrim DS); Take 1 Tablet by mouth in the morning and 1 Tablet before bedtime. Until gone.. - UROLOGY REFERRAL OP Subjective fever - CULTURE, URINE, QUANTITATIVE - URINALYSIS, POINT OF CARE (ENTER/EDIT) - CBC WITH WBC DIFFERENTIAL AND ANEMIA REFLEX WORKUP; Future; Expected date: 05/18/2023 - COMPREHENSIVE METABOLIC PANEL; Future; Expected date: 05/18/2023 - Sulfamethoxazole-Trimethoprim 800-160 MG Oral Tablet (Bactrim DS); Take 1 Tablet by mouth in the morning and 1 Tablet before bedtime. Until gone.. - UROLOGY REFERRAL OP Dysuria - CULTURE, URINE, QUANTITATIVE - URINALYSIS, POINT OF CARE (ENTER/EDIT) - Sulfamethoxazole-Trimethoprim 800-160 MG Oral Tablet (Bactrim DS); Take 1 Tablet by mouth in the morning and 1 Tablet before bedtime. Until gone.. - UROLOGY REFERRAL OP If needed, prefers contact by: Ok to leave message on phone: SUBJECTIVE: Nursing Notes: Rose Ronaldakireza, [facility] 05/18/23 1138 Signed Patel León is a 67 year old male who presents today for Chief Complaint Patient presents with Urinary Tract Infection Symptoms Pt states that he saleem been having burning sensation, urinary frequency, pt states that he is not aware when he is urinating, lightheadedness, dizziness, pt has a Hx of stroke, ongoing since last HPI: Patel León is a 67 year old male. Here with . This is day 5 - burning with urination, leakage, incontinence, subjective fevers. 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 ([facility]) I25.118 Hemiplegia, unspecified affecting right dominant side ([facility]) G81.91 Chronic bilateral low back pain with right-sided sciatica M54.41, G89.29 Spondylosis, lumbar, with myelopathy M47.16 DDD (degenerative disc disease), lumbar M51.36 Other specified peripheral vascular diseases ([facility]) I73.89 Hemiplga following cerebral infrc aff right dominant side ([facility]) I69.351 Diabetes mellitus with peripheral angiopathy ([facility]) E11.51 Acute ischemic stroke ([facility]) I63.9 Bradycardia R00.1 Hemiplegia and hemiparesis following unspecified cerebrovascular disease affecting right dominant side ([facility]) I69.951 Recurrent major depressive disorder ([facility]) F33.9 Current Outpatient Medications Medication Sig Dispense Refill [...] 4 hours as needed for Pain. As [id number] Tab 0 Ondansetron HCl 4 MG Oral Tablet (Zofran) TAKE ONE TABLET BY MOUTH EVERY 6 HOURS NEEDED FOR NAUSEA. 30 Tab 0 Nitroglycerin 0.4 MG Sublingual Tablet Sublingual (Nitrostat) Place under the tongue 1 Tablet every5 minutes as needed for Pain, Chest. up to 3 doses in 15 minutes 25 Tablet 11 Isosorbide Mononitrate ER 60 MG Oral Tablet [...] a day (dose increase) 180 Tablet 1 Lasmiditan Succinate 50 MG Oral Tablet (Reyvow) [...] Moderate. 30 day RX 90 Tablet 0 Emgality 120 MG/ML Subcutaneous Solution Auto-injector (Galcanezumab-gnlm) Inject 2 ml (2 pens) under the skin for the first dose then 1 ml (1 pen) once a month thereafter 2 mL 0 Tamsulosin HCl 0.4 MG Oral Capsule (Flomax) TAKE 1 CAPSULE BY MOUTH EVERY OTHER DAY 45 Capsule 3 Sulfamethoxazole-Trimethoprim 800-160 MG Oral Tablet (Bactrim DS) Take 1 Tablet by mouth in the morning and 1 Tablet before bedtime. Until gone.. 84 Tablet 0 cyclobenzaprine (FLEXERIL) 10 MG Tablet Take 1 Tab by mouth 3 times a day as needed for Muscle spasms. (Patient not taking: Reported on 11/17/2022) 20 Tab 1 Tgyeximpnbkan-Xqouwceqb-CRYV 65-100-325 MG Oral Capsule Two at onset [...] mg Nebulizer Q4H PRN Joselyn Merida DO OBJECTIVE: BP 142/82 (BP Site: Left Arm, BP Position: Sitting, BP Cuff Size: Regular) | Pulse 64 | Temp 36.4 C (97.5 F) (Temporal Artery) | Resp 16 | Ht 1.803 m (5' 11") | Wt 98.2 kg (216 lb 6.4 oz) | SpO2 98% | BMI 30.18 kg/m | BSA 2.22 m Vitals reviewed and is normotensive / afebrile / and not tachycardic General: No acute distress. Neuro: Alert Pleasant & interactive. Respiratory: Good inspiratory effort, no labored breathing. HEENT: Conjunctivae appear clear. No swelling noted face or lips. Skin: No rash visible on exposed skin areas, normal coloration & appears dry. Psych: Normal affect. Fluent speech. Nichole Guido MD [facility] [address] [facility] [address] There are no Patient Instructions on file for this visit. documented in this encounter Nursing Notes * MAR Travis - 05/18/2023 11:36 AM EDT Patel León is a 67 year old male who presents today for Chief Complaint Patient presents with Urinary Tract Infection Symptoms Pt states that he saleem been having burning sensation, urinary frequency, pt states that he is not aware when he is urinating, lightheadedness, dizziness, pt has a Hx of stroke, ongoing since last documented in this encounter Plan of Treatment Upcoming Encounters Date Type Specialty Care Team Description 06/15/2023 Laboratory Laboratory [facility] [address] [place] [address] 08/12/2023 Office Visit Cardiology Terry Garcia PA-C [address] [place] [address] 08/27/2023 Hospital Encounter Surgery Dat Narayanan MD [address] [place] [address] 08/27/2023 Surgery Surgery Dat Narayanan MD [address] [place] [address] COLONOSCOPY FLEXIBLE PROXIMAL DIAGNOSTIC 10/16/2023 Office Visit Family Medicine Terry Resendez MD [address] [place] [address] 10/22/2023 Office Visit Neurology Elsie Capone MD [address] [place] [address] Pending Results Name Type Priority Associated Diagnoses Date /Time PSA Lab Routine Urinary retention 05/18/2023 12:03 PM EDT CBC WITH WBC DIFFERENTIAL AND ANEMIA REFLEX WORKUP Lab Routine Urinary retention Urinary incontinence, unspecified type Subjective fever 05/18/2023 12:03 PM EDT Scheduled Orders Name Type Priority Associated Diagnoses Orde r Schedule CULTURE, URINE, QUANTITATIVE Lab Routine Urinary retention Urinary incontinence, unspecified type Subjective fever Dysuria Ordered: 05/18/2023 PSA Lab Routine Urinary retention Expected: 05/18/2023 (Approximate), Expires: 05/17/2024 CBC WITH WBC DIFFERENTIAL AND ANEMIA REFLEX WORKUP Lab Routine Urinary retention Urinary incontinence, unspecified type Subjective fever Expected: 05/18/2023 (Approximate), Expires: 05/18/2024 Scheduled Procedures Name Priority Associated Diagnoses Date/Ti me COLONOSCOPY FLEXIBLE PROXIMAL DIAGNOSTIC History of colonic polyps 08/27/2023 9:41 AM EST Scheduled Referrals Name Type Priority Associated Diagnoses Orde r Schedule UROLOGY REFERRAL OP Referral Within 3 day s (urgent) Urinary retention Urinary incontinence, unspecified type Subjective fever Dysuria Ordered: 05/18/2023 Health Maintenance Due Date Last Done Comments DISCUSS TOBACCO CESSATION (REFER TO SMARTSET #0241) 1955 COVID-19 Vaccine (#1) 04/05/1956 Alpha-1 Antitrypsin [...] D LEVEL ONCE IN A LIFETIME-USE SMARTSET# [id number] Completed 12/18/2015, 02/09/2015, 06/29/2014, Additional history exists LUNG CANCER SCREENING - USE SMARTSET [id number] Completed 06/20/2019, 07/25/2017, 07/11/2017, Additional history exists [...] this encounter Medical Devices Implanted Type Area Field Enumerator Device Identifier Shelf Expiration Date Model / Serial / Lot Stent Carotid [id number] - [id number] Implanted:Qty: 1 on 08/23/2013 at OR [facility] [place] Right: Carotid [facility] : VASCULAR DEVICES 02/21/2016 [id number] / / [id number] documented as of this encounter Procedures Procedure Name Priority Date/Time Associated Diagnosis Comments URINALYSIS, POINT OF CARE (ENTER/EDIT) Routine 05/18/2023 11:56 AM EDT Urinary retention Urinary incontinence, unspecified type Subjective fever Dysuria documented in this encounter Results * URINALYSIS, POINT OF CARE (ENTER/EDIT) (05/18/2023 11:56 AM EDT) Color, Urine Dark Yellow Yellow or Light Yellow Clarity, Urine Cloudy Clear Glucose, Urine Negative Negative mg/dL Bilirubin, Urine Negative Negative Ketone, Urine Negative Negative mg/dL Specific [place], Urine 1.015 1.003 - 1.030 Blood, Urine Negative Negative pH, Urine 6.0 5.0 - 7.5 units Protein, Urine Negative Negative mg/dL Urobilinogen, Urine 0.2 0.2 - 1.0 mg/dL Nitrite, Urine Negative Negative Esterase, Urine Negative Negative Urine 05/18/2023 11:5 6 AM EDT Nichole Guido MD LAB POINT OF CARE TEST ENTER/EDIT ORDERABLES documented in this encounter Visit Diagnoses Diagnosis Urinary retention- Primary Retention of urine, unspecified Urinary incontinence, unspecified [...] the patient have Health Care Power of Evp Sales? No Code Status History Code Status Date Activated Date Inactivated Comments Full Code 07/10/2017 5:59 PM 07/13/2017 3:18 PM Thi s order reflects the patients wishes and were consensually agreed upon. Question Answer Comments Discussion of Advance Directives occurred with: Patient/Family Does the patient have a Living Will? Yes, not currently available Does the patient have Health Care Power of Evp Sales? No Full Code 08/23/2013 8:39 AM 08/24/2013 2:49 PM This order reflects the patients wishes and were consensually agreed upon. Full Code 08/02/2013 7:49 PM 08/06/2013 12:55 AM Th is order reflects the patients wishes and were consensually agreed upon. Question Answer Comments Discussion of Advance Directives occurred with: Patient/Family Care Teams Econometrics Professor Relationship Specialty Start Date End Date Terry Resendez MD [address] [place] [address] PCP - General 04/07/1996 documented as of this encounter
--- OUTSIDE RECORDS SUMMARY | 2023-07-11 10:12 | External Medical Summary | Summary of Care ---
Author Name Unknown Organization [facility] Address [address] [place] [address] Phone [phone] Care Team Providers Care Ob/Gyn Nurse Name Role Phone Terry Resendez MD Primary Care Provider [phone] Reason for Visit * Reason Comments Return Neuro Encounter Details Date Type Department Care Team Description 04/20/2023 Office Visit Neurology [facility] Yolande Alpha [address] [facility] [place] [address] Elsie Gil [facility] [address] [facility] [address] Asymptomatic stenosis of right carotid artery*; Seizure, grand mal (HCC) Allergies Active Allergy Reactions Severity Noted Date Comments Ciprofloxacin Hives 09/01/2017 Statins 11/15/2020 All statins Simvastatin 05/07/2006 Severe myalgia's documented as of this encounter (statuses as of 04/20/2023) Medications Medication Sig Dispensed Refills Start Date End Date Status ASPIRIN EC 81 MG PO TBECIndications:Esther nary atherosclerosis of [place] coronary artery Take one pill daily 100 [...] note were not included. CLINIC NOTES Neurology [facility] [address] [place] [address] Patel León : 1955 NEUROLOGY OUTPATIENT NOTE [...] PM MRI BRAIN W WO CONTRAST Order: [id number] Status: Edited Result - FINAL Visible to patient: Yes (seen) Next appt: 06/15/2023 at 10:00 AM in Laboratory (Laboratory) Dx: Brain TIA 0 Result Notes Details Reading Physician Reading Date Result Priority Tomas Thomas MD [phone] 12/24/2022 Addenda ADDENDUM: Upon comparison with outside [...] x 20 min TECHNIQUE MRA of the tangirnaq of [place] was performed without the use of intravenous contrast using 3D nynq-si-tutwgl sequence. 3D reformatted images were reviewed. COMPARISON [...] Date Exam End Time 02/02/2023 3:23 PM [facility] DUPLEX CAROTID BILAT Order: [id number] Status: Final result Visible to patient: Yes (seen) Next appt: 06/15/2023 at 10:00 AM in Laboratory (Laboratory) Dx: Asymptomatic stenosis of right caroti... 0 Result Notes Details Reading Physician Reading Date Result Priority Prince Astorga MD [phone] 02/02/2023 Routine Narrative & Impression VASCULAR LAB RESULTS DATE OF EXAM: 02/02/23 PRESENTING CONDITIONS: fu mia stent, cta had diff eval for intrastent stenois,.lica occlusion This is an interpretation of an exam performed at [facility]. PHYSICIAN REPORT Carotid Artery Duplex Examination Immediately [...] have an irregular surface. Color Doppler imaging wasperformed for the evaluation of the left carotid [...] Date Acute ischemic VBA thalamic stroke, left ([facility]) 08/04/2013 Benign neoplasm of colon 06/05/09 adenomatous/repeat colonoscopy in 1 yr Carotid artery stenosis CLASSICAL MIGRAINE WITHOU MENTION OF INTRACTABLE MIGRAINE 01/14/2002 Compression fracture of L2 lumbar vertebra (HCC) 10/16/2015 Coronary atherosclerosis of [place] coronary artery 2005 total occ RCA// 40% [...] hemoglobin A1c goal of less than 7.0% ([facility]) E11.9 COPD, severity to be determined ([facility]) J44.9 MEDICATION USE AGREEMENT [id number] Senile osteoporosis M81.0 Aortic dissection, thoracic ([facility]) I71.019 Urinary retention R33.9 History of ischemic vertebrobasilar artery thalamic stroke Z86.73 Coronary artery disease with exertional angina ([facility]) I25.118 Hemiplegia, unspecified affecting right dominant side ([facility]) G81.91 Chronic bilateral low back pain with right-sided sciatica M54.41, G89.29 Spondylosis, lumbar, with myelopathy M47.16 DDD (degenerative disc disease), lumbar M51.36 Other specified peripheral vascular diseases ([facility]) I73.89 Hemiplga following cerebral infrc aff right dominant side ([facility]) I69.351 Diabetes mellitus with peripheral angiopathy ([facility]) E11.51 Acute ischemic stroke ([facility]) I63.9 Bradycardia R00.1 Hemiplegia and hemiparesis following unspecified cerebrovascular disease affecting right dominant side ([facility]) I69.951 Recurrent major depressive disorder ([facility]) F33.9 Past Surgical History: Procedure Laterality Date ANESTHESIA PROCEDURE [facility] 08/05/2013 ANESTHESIA FOR PACU PROCEDURE OTHER performed by In & Out Surgery [facility] at [place] [facility] CARDIAC CATH-CARDIOLOGY ONLY 2006 COLONOSCOPY W/ LESION REMOVAL, SNARE 06/05/09 done one 12mm polyp in distal sigmoid,,one 3mm in transverse colon, 5mm polyp in proximal sigmoid, diverticulosis /adenomatous/repeat colonoscopy in 1 yr COLONOSCOPY, DIAGNOSTIC (RECTUM) 01/15/2016 hyperplatic & serrated adenomatous polyp, diverticulosis, repeat 3 yrs/[facility] COLONOSCOPY, DIAGNOSTIC (RECTUM) N/A 04/05/2019 poor prep/diverticulosis sigmoid colon/biopsies show benign polyp/recall 3 years/COLONOSCOPY FLEXIBLE PROXIMAL DIAGNOSTIC performed by Dat Narayanan MD at OR [facility] CORONARY ANGIOGRAPHY W/LEFT HEART CATH 05/25/2017 CORONARY ANGIOGRAPHY W/LEFT HEART CATH performed by Martha Alford MD at CARDIAC LABS [facility] IR VERTEBRAL AUGMENTATION TECH ONLY 2015 L2/ Dr Barcenas MISCELLANEOUS ORDER left lateral elbow ligament repair MISCELLANEOUS ORDER ([facility] ONLY) 09/27 right rotator cuff repair/ [place] OTHER 09/30 left rotator cuff repair OTHER 2007 bilateral hip replacement (Dr Benavidez) REMOVAL OF TONSILS, AGE 12+ TOTAL HIP REPLACEMENT & PROSTHESIS both hips, AVN TRANSCATH STENT-CAROTID ARTERY, W/EMBOL PROTECTION 08/23/2013 right carotid stent with cerebral angiogram. 08/23/13 Dr. Chen. [facility] OR TRANSCATH STENT-CAROTID ARTERY, W/EMBOL PROTECTION Xact Carotid Stent 08/05- safe up to 3T Social History Socioeconomic History Marital status: Spouse name: Hilary Number of children: 3 Years of education: 12 Highest education level: Not on file Occupational History Employer: [employer] Comment: [employer] Tobacco Use Smoking status: Every Day Packs/day: [...] taking: Reported on 11/17/2022) 20 Tab 1 Frdyrepunfruh-Pbanrlxev-UINJ 65-100-325 MG Oral Capsule Two at onset [...] Surgery Dat Narayanan MD [address] [place] [address] 05/07/2023 Surgery Surgery Dat Narayanan MD [address] [place] [address] COLONOSCOPY FLEXIBLE PROXIMAL DIAGNOSTIC 06/15/2023 Laboratory Laboratory [facility] [address] [place] [address] 08/12/2023 Office Visit Cardiology Terry Garcia PA-C [address] [place] [address] 10/16/2023 Office Visit Family Medicine Terry Resendez MD [address] [place] [address] 10/22/2023 Office Visit Neurology Elsie Gil MD [address] [place] [id number] Scheduled Procedures Name Priority Associated Diagnoses Date/Ti me COLONOSCOPY FLEXIBLE PROXIMAL DIAGNOSTIC History of colonic polyps 05/07/2023 1:06 PM EDT Health Maintenance Due Date Last Done Comments DISCUSS TOBACCO CESSATION (REFER TO SMARTSET #5442) 1955 COVID-19 Vaccine (#1) 04/05/1956 Alpha-1 Antitrypsin [...] D LEVEL ONCE IN A LIFETIME-USE SMARTSET# 90880 Completed 12/18/2015, 02/09/2015, 06/29/2014, Additional history exists LUNG CANCER SCREENING - USE SMARTSET 13079 Completed 06/20/2019, 07/25/2017, 07/11/2017, Additional history exists [...] encounter Medical Devices Implanted Type Area [employer] Energy Rater Device Identifier Shelf Expiration Date Model / Serial / Lot Stent Carotid [id number] - [id number] Implanted:Qty: 1 on 08/23/2013 at [place] [facility] Right: Carotid [facility] 02/21/2016 [id number] / / [id number] documented as of this encounter Visit Diagnoses [...] the patient have Health Care Power of Automatic Spinning Lathe Operator? No Code Status History Code Status Date Activated Date Inactivated Comments Full Code 07/10/2017 5:59 PM 07/13/2017 3:18 PM Thi s order reflects the patients wishes and were consensually agreed upon. Question Answer Comments Discussion of Advance Directives occurred with: Patient/Family Does the patient have a Living Will? Yes, not currently available Does the patient have Health Care Power of Automatic Spinning Lathe Operator? No Full Code 08/23/2013 8:39 AM 08/24/2013 2:49 PM This order reflects the patients wishes and were consensually agreed upon. Full Code 08/02/2013 7:49 PM 08/06/2013 12:55 AM Th is order reflects the patients wishes and were consensually agreed upon. Question Answer Comments Discussion of Advance Directives occurred with: Patient/Family Care Teams Ob/Gyn Nurse Relationship Specialty Start Date End Date Terry Resendez MD [address] [place] [facility] [address] PCP - General 04/07/1996 documented as of this encounter"
--- OUTSIDE RECORDS SUMMARY | 2023-07-11 10:12 | External Medical Summary ---
Author Name Unknown Address Unknown Organization [id number] - [address] [place] [address] Laboratory Report Ordering Provider Test Date Status TALI VARGASCHETNA 05/18/2023 12:03:37 Final Observation Date Value Abnormality Reference (Units ) Status HbA1C 05/18/2023 12:03:37 5.5 4.0-5.6 (% ) Final The use of HbA1c to monitor glycemic status is based on normal hemoglobin and HbA composition. This test should not be used in patients with abnormal hemoglobin that affects the half life of the red blood cell or the in vivo glycation rates. Glucose, estimated average 05/18/2023 12:03:37 111 <126 (mg/dL) Final Performing Location [facility] [address] [facility] [address]
--- OUTSIDE RECORDS SUMMARY | 2023-07-11 10:12 | External Medical Summary | Summary of Care ---
Author Name Unknown Organization [facility] Address [address] [place] [address] Phone [phone] Care Team Providers Care Fabrication Welder Name Role Phone Terry Resendez MD Primary Care Provider [phone] Reason for Visit * Reason Comments Follow Up Blister area left ar m- opened and scabbed over Encounter Details Date Type Department Care Team Description 04/15/2023 Office Visit [facility] [address] [place] [address] Terry Resendez MD [address] [place] [address] Risk and functional assessment*; Hemiplegia affecting right dominant side, unspecified etiology, unspecified hemiplegia type (HCC); Diabetes mellitus with peripheral angiopathy (HCC); Acute ischemic stroke ([facility]); Type 2 diabetes mellitus with hemoglobin A1c goal of less than 7.0% ([facility]); HTN, goal below 140/90 Allergies Active Allergy Reactions Severity Noted Date Comments Ciprofloxacin Hives 09/01/2017 Statins 11/15/2020 All statins Simvastatin 05/07/2006 Severe myalgia's documented as of this encounter (statuses as of 04/15/2023) Medications Medication Sig Dispensed Refills Start Date [...] (dose increase) 180 Tablet 1 3 Active Ajovy 225 MG/1.5ML Subcutaneous Solution Auto-injector (Fremanezumab-vfrm) Inject 1.5 ml under the skin once a month 1.5 mL 5 3 Active Lasmiditan Succinate 50 MG Oral [...] day RX 90 Tablet 0 3 Active metFORMIN HCl ER 500 MG Oral Tablet Extended Release 24 Hour (Glucophage XR) TAKE ONE TABLET BY MOUTH EVERY DAY 90 Tablet 3 3 04/15/20 23 Discontinu ed(Medicat ion List Clean Up) Hospital, Clinic, or Other Facility Administered Medication Ordered Dose Route Frequency Start Date End Date Status albuterol sulfate (PROVENTIL) (2.5 MG/3ML) 0.083% inhalation solution 2.5 mgIndications:COPD, severity to be determined (HCC) 2.5 mg NEBULIZER Q4H PRN 07/05/2019 Active documented as of this encounter (statuses as of 04/15/2023) Active Problems Problem Noted Date Hemiplegia and [...] as of this encounter (statuses as of 04/15/2023) Resolved Problems Problem Noted Date Resolved Date [...] as of this encounter (statuses as of 04/15/2023) Immunizations Name Administration Dates Next Due Pneumococcal [...] Sign Reading Time Taken Comments Blood Pressure 142/70 04/15/2023 3:19 PM EDT Pulse 70 04/15/2023 3:19 PM EDT Temperature 36.5 C (97.7 F) 04/15/2023 3:19 PM ED T Respiratory Rate 20 04/15/2023 3:19 PM EDT Oxygen Saturation 97% 04/15/2023 3:19 PM EDT Inhaled Oxygen Concentration - - Weight 100.2 kg (220 lb 12.8 oz) 04/15/2023 3:19 PM EDT Height 180.3 cm (5' 11") 04/15/2023 3:19 PM EDT Body Mass Index 30.8 04/15/2023 3:19 PM EDT documented in this [...] Yes 07/26/2017 documented as of this encounter Patient Instructions * Patient Instructions* Naomi Sun LPN - 04/15/2023 3:19 PM EDT Patient Instructions - Fall Prevention (This education is for all patients over 65 regardless of symptoms) Remember to take your current medications as prescribed. In order to prevent falls, you are encouraged to: Exercise Utilize assistive/adaptive devices Avoid multifocal lenses when walking Avoid hazards in home Maintain a regular toileting schedule Any questions please contact our office. Preventing Falls in the Home (This education is for all patients over 65 regardless of symptoms) As you get older, falls are more likely. Thats because your reaction time slows. Your muscles and joints may also get stiffer, making them less flexible. Illness, medications, and vision changes can also affect your balance. A fall could leave you unable to live on your own. To make your home safer, follow these tips: Floors Put nonskid pads under area rugs Remove throw rugs Replace worn floor coverings Tack carpets firmly to each step on carpeted stairs. Put nonskid strips on the edges of uncarpeted stairs Keep floors and stairs free of clutter and cords Arrange furniture so there are clear pathways Clean up any spills right away Bathrooms Install grab bars in the tub or shower Apply nonskid strips or put a nonskid rubber mat in the tub or shower Sit on a bath chair to bathe Use bathmats with nonskid backing Lighting Keep a flashlight in each room Put a nightlight along the pathway between the bedroom and the bathroom [employer] Patient Education Copyright 2008 - 2010 [employer] except where otherwise noted Preventing Falls: Exercises to Improve Balance, Flexibility, Strength, and Staying Power (This education is for all patients over 65 regardless of symptoms) Certain types of exercises may help make you less likely to fall. Try the ones below. Or do other exercises that your healthcare provider suggests. Depending on your health, you may need to start slowly. Dont let that stop you. Even small amounts of exercise can help you. Be sure to talk to yourhealthcare provider before starting any exercise program. Improve Balance Many types of exercise can help improve balance. Chavo chi and yoga are good examples. Heres another one to try. You can do it anytime and almost anywhere. Stand next to a counter or solid support. Push yourself up onto your tiptoes. Hold for 5 seconds. If you start to lose your balance, hold on to the counter. Rest and repeat 5 times. Work up to holding for 20 to 30 seconds, if you can. Increase Flexibility Being more flexible makes it easier for you to move around safely. Try exercises like the seated hamstring stretch. Sit in a chair and put one foot on a stool. Straighten your leg and reach with both hands down either side of your leg. Reach as far down your leg as you can. Hold for about 20 seconds. Go back to the starting position. Then repeat 5 times. Switch legs. Build Strength Resistance exercises help build strength. You can do them without equipment. Or you can use weights, elastic bands, or special machines. One such exercise is called the biceps curl. You can hold a 1 pound weight or even a can of soup. Do this exercise at least 3 times a week. Strive for everyday. Sit up straight in a chair. Keep your elbow close to your body and your wrist straight. Bend your arm, moving your hand up to your shoulder. Then slowly lower your arm. Repeat 5 times. Switch to the other arm. Build Your Staying Power Aerobic exercises make your heart and lungs stronger so you can keep moving longer. Walking and swimming are two of the best types of exercises you can do. Using a stationary bike is great, too. Find an aerobic exercise that you enjoy. Start slowly and build up. Even 5 minutes is helpful. Aimfor a goal of 30 minutes, at least 3 times a week. You dont have to do 30 minutes in one session. Break it up and walk a little throughout the day. More Helpful Tips Start easy. Slowly work up to doing more. Talk with your healthcare provider about the best exercises for you. Call senior centers or health clubs about exercise programs. If needed, have a family member watch you walk every so often to check your stability. Exercise with a friend. Choose an activity you both enjoy. Try exercises that you can do anytime, anywhere. Here are two examples. Have someone with you when you first try these: Practice walking by placing one foot right in front of the other. Stand up and sit down 10 times. Repeat this throughout the day. [employer] Patient Education Copyright 2009 - 2010 [employer] except where otherwise noted. Preventing Falls: Moving Safely Using a Cane or Walker (This education is for all patients over 65 regardless of symptoms) Keep the cane away from your feet so you dont trip. A walking aid, such as a cane or walker, can help you stay more independent and avoid falls. Remember to keep your walking aid within easy reach when youre in a chair or in bed. And learn how to use it safely so you dont injure yourself. Using a Cane If you have a stronger side, hold the cane on that side. Get your balance. Move the cane and your weaker leg forward. Support your weight on both the cane and your weaker side. Step with your stronger leg. Start again from step 1. If youre using a folding walker, be sure you know how to lock it open. Check that its locked open before each use. Using a Walker Roll the walker (or lift it, if youre using one without wheels) forward about 12 inches. Step forward with your weaker leg first. Use the walker to help keep your balance. Bring your other foot forward to the center of the walker. Start again from step 1. Helpful Tips Check with your healthcare provider about the right walking aid to use. Ask about a walker with a seat attached. Check the tips of your cane or walker to make sure they have nonskid covers. Move slowly from room to room. Dont ocampo. Sit down to get dressed. Use a blane pack or backpack to keep your hands free. Get help for jobs that mean climbing, even on a stepstool. [employer] Patient Education Copyright 2008 - 2010 [employer] except where otherwise noted. Treating Urinary Incontinence in Men (This education is for all patients over 65 regardless of symptoms) You can't always control the release of urine. You may leak urine. Or you may not be able to hold your urine until you can get to a bathroom. This is called urinary incontinence. The problem can be managed. Talk to your doctor about your treatment options. Taking Medications Prescription medications may help you. They may: Help the sphincter to work better. (This is the muscle that closes to keep urine from leaking out of the bladder.) Help stop the bladder from roel too often to push urine out. Help the bladder muscles contract with more force. Help relax the sphincter muscle and allow urine to flow more freely. Making Changes to Your Routine Certain changes in your daily routine may help. These include: Avoiding caffeine and alcohol. Using timed voiding. This is following a schedule for drinking fluids and urinating. Doing Kegel exercises daily. These exercises involve tightening the muscles in your sphincter and around your bladder to help strengthen them. Your doctor can explain how to do them. Using a Catheter A catheter is a narrow tube that is inserted through the urethra into the bladder. It drains urine.A condom catheter covers the penis. It channels urine into a collection bag. It is worn most of thetime. Intermittent catheterization means inserting a catheter to drain the bladder, then removing it. This is done on a regular schedule. Having Surgery If other options don't work, surgery may be recommended. If surgery is an option, your healthcare provider can discuss it with you and explain its risks and benefits. Healing After Prostate Surgery Surgery on the prostate gland can cause incontinence. Most often, the incontinence is only for a short time. It clears up when healing is complete. Very rarely, prostate surgery can result in permanent incontinence. documented in this encounter Progress Notes * Terry Resendez MD - 04/15/2023 4:16 PM EDT Subjective: Patel León is a 67 year old male. Chief Complaint Patient presents with Follow Up Blister area left arm- opened and scabbed over HPI: 67-year-old seen today as a routine recheck. No major change in his overall health status. He did have carotid duplex done in January as ordered by Dr. Capone-neurologist. 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 His last hemoglobin A1c from about 5 months ago was 5.4. The only thing he is taking now for diabetes is metformin ER 500 mg 1 a day. He does describe what may be some hypoglycemic spells in the afternoon. He often times does not eat then anything for lunch. He does not check his blood sugars. He still bothered with lightheadedness not infrequently when he stands up. His blood pressure has been somewhat labile and felt that he needs his current medications in order to prevent further elevation of blood pressure. Last basic metabolic panel done 2 months ago showed a sodium of 129. 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 exertional angina ([facility]) I25.118 Hemiplegia, unspecified affecting right dominant side ([facility]) G81.91 Chronic bilateral low back pain with right-sided sciatica M54.41, G89.29 Spondylosis, lumbar, with myelopathy M47.16 DDD (degenerative disc disease), lumbar M51.36 Other specified peripheral vascular diseases ([facility]) I73.89 Hemiplga following cerebral infrc aff right dominant side ([facility]) I69.351 Diabetes mellitus with peripheral angiopathy ([facility]) E11.51 Acute ischemic stroke ([facility]) I63.9 Bradycardia R00.1 Hemiplegia and hemiparesis following unspecified cerebrovascular disease affecting right dominant side ([facility]) I69.951 Recurrent major depressive disorder ([facility]) F33.9 Current Outpatient Medications Medication Sig Dispense [...] 4 hours as needed for Pain. As [id number] Tab 0 Ondansetron HCl 4 MG Oral [...] taking: Reported on 11/17/2022) 20 Tab 1 Ezrczfcjhyxhd-Uoapbowyi-KBBM 65-100-325 MG Oral Capsule Two at onset [...] Statins All statins Zocor [Simvastatin] Severe myalgia's Objective: BP 142/70 | Pulse 70 | Temp 36.5 C (97.7 F) (Temporal Artery) | Resp 20 | Ht 1.803 m (5' 11") |Wt 100.2 kg (220 lb 12.8 oz) | SpO2 97% | BMI 30.80 kg/m | BSA 2.24 m Physical Exam: CONST: alert, pleasant, no acute distress HEAD: normocephalic, atraumatic NECK: supple, soft, no adenopathy EA Eyes - PERRLA, EOM'I OROPHARYNX: clear, no swelling or erythema, moist CV: regular rate and rhythm, no murmur CHEST: clear to auscultation bilaterally, no rales or wheezing ABD: soft, non tender, non distended, no masses or hepatosplenomegaly EXT: Trace bilateral ankle edema, no joint swelling or deformities, NEURO: AAOx3, no gross focal deficits, cerebellar signs normal, affect appropriate MENTAL STATUS: no evidence of thought disorder, no delusional thought, no evidence of paranoia, thought is non-tangential. SKIN: Left forearm-he is got a 4 mm scabbed over sore that started as what sounds like a blood blister. No signs of infection ASSESSMENT/PLAN: Hemiplegia affecting right dominant side, unspecified etiology, unspecified hemiplegia type (HCC) Um this has been quite stable x8 years Diabetes mellitus with peripheral angiopathy (HCC)-his hemoglobin A1c being 5.4 is Um indicative that he Um very well may no longer have diabetes. I am concerned that he could get hypoglycemic although that would be unusual given that he is only on metformin and no other medicines to lower blood sugar. Nonetheless, I recommend he stop metformin and will check hemoglobin A1c in about 2-3 months time as well as a comprehensive metabolic panel. Acute ischemic stroke (HCC)-continue dual antiplatelet therapy with aspirin Plavix. Routine health maintenance-encouraged flu shot in May. He is not interested in in COVID vaccine. I did discuss the possibility of using PACs low vid if he should Um be unfortunate catch COVID-19 infection. Terry Resendez MD * Naomi Sun LPN - 04/15/2023 3:19 PM EDT Fall Risk Plan of Care Documentation: - Current medications reconciled Patient encouraged to: - Exercise - Provide education materials for Core strengthening - Utilize assistive/adaptive devices - Provide education materials - Avoid multifocal lenses when walking - Avoid hazards in home - Provide education materials - Maintain a regular toileting schedule Naomi Sun LPN 04/15/2023 documented in this encounter Nursing Notes * Naomi Sun LPN - 04/15/2023 3:23 PM EDT The patient has been properly identified by confirmation of name and date of . Chief Complaint Patient presents with Follow Up Blister area left arm- opened and scabbed over documented in this encounter Plan of Treatment Upcoming Encounters Date Type Specialty Care Team Description 04/20/2023 Office Visit Neurology Elsie Capone MD [address] [place] [id number] 05/07/2023 Hospital Encounter Surgery Dat Narayanan MD [address] [place] [address] 05/07/2023 Surgery Surgery Dat Narayanan MD [address] [place] [address] COLONOSCOPY FLEXIBLE PROXIMAL DIAGNOSTIC 06/15/2023 Laboratory Laboratory [facility] [address] [place] [address] 08/12/2023 Office Visit Cardiology Terry Garcia PA-C [address] [place] [address] 10/16/2023 Office Visit Family Medicine Terry Resendez MD [address] [place] [address] Scheduled Orders Name Type Priority Associated Diagnoses Orde r Schedule HEMOGLOBIN A1C Lab Routine Type 2 diabetes mellitus with hemoglobin A1c goal of less than 7.0% (HCC) Expected: 04/15/2023 (Approximate), Expires: 04/14/2024 COMPREHENSIVE METABOLIC PANEL Lab Routine Hemiplegia affecting right dominant side, unspecified etiology, unspecified hemiplegia type (HCC) Expected: 04/15/2023 (Approximate), Expires: 04/14/2024 Scheduled Procedures Name Priority Associated Diagnoses Date/Ti me COLONOSCOPY FLEXIBLE PROXIMAL DIAGNOSTIC History of colonic polyps 05/07/2023 1:06 PM EDT Health Maintenance Due Date Last Done Comments DISCUSS TOBACCO CESSATION (REFER TO SMARTSET #[id number]) 1954 COVID-19 Vaccine (#1) 04/05/1955 Alpha-1 Antitrypsin 1972 Zoster Vaccines (1 of 2) 2004 *COPD SEVERITY VERIFIED BY PFT 08/22/2015 DXA Scan 11/27/2017 11/28/2015 *BISPHONATE OR OTHER ACCEPTABLE MEDICATION NEEDED FOR OSTEOPOROSIS (REFER TO SMARTSET #[id number]) 06/14/2018 AAA Screening 2019 Depression, Most Recent [...] 11/18/2023 11/17/2022, 09/25, 10/16/2021, Additional history exists O2 ASSESSMENT COMPLETED IN PAST YEAR FOR COPD 11/18/2023 04/15/2023 GFR 01/30/2024 01/29/2023, 10/23, 10/17/2022, Additional history exists DTaP,Tdap,and Td Vaccines (2 - Td or Tdap) 01/17/2026 01/18/2016, 03/15/2004 VITAMIN D LEVEL ONCE IN A LIFETIME-USE SMARTSET# [id number] Completed 12/18/2015, 02/09/2015, 06/29/2014, Additional history exists LUNG CANCER SCREENING - USE SMARTSET [id number] Completed 06/20/2019, 07/25/2017, 07/11/2017, Additional history exists [...] this encounter Medical Devices Implanted Type Area Supervisor Mails Device Identifier Shelf Expiration Date Model / Serial / Lot Stent Carotid [id number] - [id number] Implanted:Qty: 1 on 08/23/2013 at [facility] Right: Carotid [facility] 02/21/2016 [id number] / / [id number] documented as of this encounter Visit Diagnoses Diagnosis Risk and functional assessment- Primary Screening for unspecified condition Hemiplegia affecting right dominant side, unspecified etiology, unspecified hemiplegia type (HCC) Diabetes mellitus with peripheral angiopathy (HCC) Type II or unspecified type diabetes mellitus with peripheral circulatory disorders, not stated as uncontrolled Acute ischemic stroke (HCC) Unspecified cerebral artery occlusion with cerebral infarction Type 2 diabetes mellitus with hemoglobin A1c goal of less than 7.0% (HCC) HTN, goal below 140/90 Unspecified essential hypertension History of colonic polyps Personal history of [...] the patient have Health Care Power of Ice Cream Vendor? No Code Status History Code Status Date Activated Date Inactivated Comments Full Code 07/10/2017 5:59 PM 07/13/2017 3:18 PM Thi s order reflects the patients wishes and were consensually agreed upon. Question Answer Comments Discussion of Advance Directives occurred with: Patient/Family Does the patient have a Living Will? Yes, not currently available Does the patient have Health Care Power of Ice Cream Vendor? No Full Code 08/23/2013 8:39 AM 08/24/2013 2:49 PM This order reflects the patients wishes and were consensually agreed upon. Full Code 08/02/2013 7:49 PM 08/06/2013 12:55 AM Th is order reflects the patients wishes and were consensually agreed upon. Question Answer Comments Discussion of Advance Directives occurred with: Patient/Family Care Teams Fabrication Welder Relationship Specialty Start Date End Date Terry Resendez MD [address] [place] [address] PCP - General 04/07/1996 documented as of this encounter
--- OUTSIDE RECORDS SUMMARY | 2023-07-11 10:12 | External Medical Summary | Summary of Care ---
Author Name Unknown Organization [facility] Address [address] [place] [address] Phone [phone] Care Team Providers Care Biopsychologist Name Role Phone Sam Resendez MD Primary Care Provider Reason for Visit * Reason Comments eRx-Medication Refill Encounter Details Date Type Department Care Team Description 05/07/2023 Refill [facility] [address] [place] [address] Sam Resendez MD [address] [place] [address] Obstructive uropathy Allergies Active Allergy Reactions Severity Noted Date Comments Ciprofloxacin Hives 09/01/2017 Statins 11/15/2020 All statins Simvastatin 05/07/2006 Severe myalgia's documented as of this encounter (statuses as of 05/08/2023) Medications Medication Sig Dispensed Refills Start Date End Date Status ASPIRIN EC 81 MG PO TBECIndications:Cor onary atherosclerosis of [place] coronary artery Take one pill daily 100 [...] FOR NAUSEA. 30 Tab 0 1 Active Isometheptene-Dichl oral-APAP 65-100-325 MG Oral Capsule [...] 25 Tablet 11 2 Active Spacer/Aero-Holding Chambers DeviceIndications:C OPD exacerbation (HCC) [...] 14 days. 6 mL 3 3 Active HYDROcodone-Acetami nophen 5-325 MG Oral TabletIndications:C hronic bilateral low back pain with right-sided sciatica Take 1 Tablet by mouth 3 times a day as needed for Pain, Mild or Pain, Moderate. 30 day RX 90 Tablet 0 3 Active Emgality 120 MG/ML Subcutaneous Solution Auto-injector (Galcanezumab-gnlm) Inject 2 ml (2 pens) under the skin for the first dose then 1 ml (1 pen) once a month thereafter 2 mL 0 3 Active Tamsulosin HCl 0.4 MG Oral Capsule (Flomax)Indications :Obstructive uropathy TAKE 1 CAPSULE BY MOUTH EVERY OTHER DAY 45 Capsule 3 3 Active Tamsulosin HCl 0.4 MG Oral Capsule (Flomax)Indications :Obstructive uropathy Take by mouth 1 Capsule every other day . 45 Capsule 3 2 05/08/20 23 Discontinued Hospital, Clinic, or Other Facility Administered Medication Ordered Dose Route Frequency Start Date End Date Status albuterol sulfate (PROVENTIL) (2.5 MG/3ML) 0.083% inhalation solution 2.5 mgIndications:COPD, severity to be determined (HCC) 2.5 mg NEBULIZER Q4H PRN 07/05/2019 Active documented as of this encounter (statuses as of 05/08/2023) Active Problems Problem Noted Date Hemiplegia and [...] as of this encounter (statuses as of 05/08/2023) Resolved Problems Problem Noted Date Resolved Date [...] as of this encounter (statuses as of 05/08/2023) Immunizations Name Administration Dates Next Due Pneumococcal [...] encounter Miscellaneous Notes * Telephone Encounter - Paulino Celis [facility] - 05/08/2023 12:03 PM EDTSigned Prescriptions: Disp Refills Tamsulosin HCl 0.4 MG Oral Capsule (Flomax)45 Cap*3 Sig: TAKE 1CAPSULE BY MOUTH EVERY OTHER DAYAuthorizing Provider: SAM RESENDEZ User: PAULINO CELIS OSGee documented in this encounter Plan of Treatment Upcoming Encounters Date Type Specialty Care Team Description 06/15/2023 Laboratory Laboratory [facility] [address] [place] [address] 08/12/2023 Office Visit Cardiology Sam Garcia PA-C [address] [place] [address] 08/27/2023 Hospital Encounter Surgery Dat Narayanan MD [address] [place] [address] 08/27/2023 Surgery Surgery Dat Narayanan MD [address] [place] [address] COLONOSCOPY FLEXIBLE PROXIMAL DIAGNOSTIC 10/16/2023 Office Visit Family Medicine Sam Resendez MD [address] [place] [address] 10/22/2023 Office Visit Neurology Elsie Capone MD [address] [facility] [place] [address] Scheduled Procedures Name Priority Associated Diagnoses Date/Ti me COLONOSCOPY FLEXIBLE PROXIMAL DIAGNOSTIC History of colonic polyps 08/27/2023 9:41 AM EST Health Maintenance Due Date Last Done Comments DISCUSS TOBACCO CESSATION (REFER TO SMARTSET #0107) 1954 COVID-19 Vaccine (#1) 04/05/1955 Alpha-1 Antitrypsin 1972 Zoster Vaccines (1 of 2) 2004 *COPD SEVERITY VERIFIED BY PFT 08/22/2015 DXA Scan 11/27/2017 11/28/2015 *BISPHONATE OR OTHER ACCEPTABLE MEDICATION NEEDED FOR OSTEOPOROSIS (REFER TO SMARTSET #1816) 06/14/2018 AAA Screening 2019 Depression, Most Recent [...] D LEVEL ONCE IN A LIFETIME-USE SMARTSET# 72045 Completed 12/18/2015, 02/09/2015, 06/29/2014, Additional history exists LUNG CANCER SCREENING - USE SMARTSET 29970 Completed 06/20/2019, 07/25/2017, 07/11/2017, Additional history exists [...] this encounter Medical Devices Implanted Type Area Mandrel Maker Device Identifier Shelf Expiration Date Model / Serial / Lot Stent Carotid 8-6x30 [id number] - [id number] Implanted:Qty: 1 on 08/23/2013 at [facility] Right: Carotid [facility] : VASCULAR DEVICES 02/21/2016 [id number] / / [id number] documented as of this encounter Visit Diagnoses Diagnosis Obstructive uropathy Urinary obstruction, unspecified History of colonic polyps Personal history of [...] the patient have Health Care Power of Director Of Software Development? No Code Status History Code Status Date Activated Date Inactivated Comments Full Code 07/10/2017 5:59 PM 07/13/2017 3:18 PM Thi s order reflects the patients wishes and were consensually agreed upon. Question Answer Comments Discussion of Advance Directives occurred with: Patient/Family Does the patient have a Living Will? Yes, not currently available Does the patient have Health Care Power of Director Of Software Development? No Full Code 08/23/2013 8:39 AM 08/24/2013 2:49 PM This order reflects the patients wishes and were consensually agreed upon. Full Code 08/02/2013 7:49 PM 08/06/2013 12:55 AM Th is order reflects the patients wishes and were consensually agreed upon. Question Answer Comments Discussion of Advance Directives occurred with: Patient/Family Care Teams Biopsychologist Relationship Specialty Start Date End Date Sam Resendez MD [address] [place] [address] PCP - General 04/07/1996 documented as of this encounter
--- OUTSIDE RECORDS SUMMARY | 2023-07-11 10:12 | External Medical Summary | Summary of Care ---
Author Name Unknown Organization [facility] Address [address] [place] [address] Phone [phone] Care Team Providers Care Poultry Dressing Worker Name Role Phone Sam Resendez MD Primary Care Provider Reason for Visit * Reason Onset Date Comments Medication Refill 04/29/2023 Encounter Details Date Type Department Care Team Description 04/29/[address] [facility] [address] [place] [address] Sam Resendez MD [address] [place] [address] Chronic bilateral low back pain with right-sided sciatica Allergies Active Allergy Reactions Severity Noted Date Comments Ciprofloxacin Hives 09/01/2017 Statins 11/15/2020 All statins Simvastatin 05/07/2006 Severe myalgia's documented as of this encounter (statuses as of 04/30/2023) Medications Medication Sig Dispensed Refills Start Date End Date Status ASPIRIN EC 81 MG PO TBECIndications:Esther nary atherosclerosis of [place] coronary artery Take one pill daily 100 [...] 14 days. 6 mL 3 3 Active Ajovy 225 MG/1.5ML Subcutaneous Solution Auto-injector (Fremanezumab-vfrm) Inject 1.5 ml under the skin once a month 1.5 mL 5 3 Active HYDROcodone-Acetamin ophen 5-325 MG Oral [...] 30 day RX 90 Tablet 0 3 04/29/20 23 Discontinu ed(Refill) Hospital, Clinic, or Other Facility Administered Medication Ordered Dose Route Frequency Start Date End Date Status albuterol sulfate (PROVENTIL) (2.5 MG/3ML) 0.083% inhalation solution 2.5 mgIndications:COPD, severity to be determined (HCC) 2.5 mg NEBULIZER Q4H PRN 07/05/2019 Active documented as of this encounter (statuses as of 04/30/2023) Active Problems Problem Noted Date Hemiplegia and [...] as of this encounter (statuses as of 04/30/2023) Resolved Problems Problem Noted Date Resolved Date [...] as of this encounter (statuses as of 04/30/2023) Immunizations Name Administration Dates Next Due Pneumococcal [...] Telephone Encounter - Sam Resendez MD - 04/30/2023 1:41 PM EDTSigned Prescriptions: Disp Refills HYDROcodone-Acetaminophen 5-325 MG Oral Ta*90 Tab*0 Sig: Take 1 Tablet by mouth 3 times a day as needed for Pain, Mild or Pain, Moderate. 30 day RX Authorizing Provider: SAM RESENDEZ * Telephone Encounter - Prince Dorado [facility] - 04/30/2023 10:05 AM EDT Pending Prescriptions: Disp Refills HYDROcodone-Acetaminophen 5-325 MG Oral Ta*90 Tab*0 Sig: Take 1 Tablet by mouth 3 times a day as needed for Pain, Mild or Pain, Moderate. 30 day RX * Telephone Encounter - Prince Dorado [facility] - 04/30/2023 10:04 AM EDT I have reviewed the patients controlled substance dispensing history in the Prescription Drug Monitoring Program in compliance with the [facility] regulations before prescribing a controlled substance. PDMP checked on 04/30/2023. Pending Prescriptions: Disp Refills HYDROcodone-Acetaminophen 5-325 MG Oral T*90 Tab*0 Sig: Take 1 Tablet by mouth 3 times a day as needed for Pain, Mild or Pain, Moderate. 30 day RX Last Visit: 04/15/2023 (in office), Visit date not found (telemedicine) Next Visit: 10/16/2023 Date medication was last filled: 04/01 Date medication is due for refill: 04/30 Pharmacy: [id number] Is this request for [...] Results Review. Please approve if appropriate. Thanks, Prince Dorado, PharmD Clinical Pharmacist [facility](formerly telepharmacy) [phone] 04/30/2023, 10:04 AM documented in this encounter Plan of Treatment Upcoming Encounters Date Type Specialty Care Team Description 06/15/2023 Laboratory Laboratory [facility] [id number] [place] [address] 08/12/2023 Office Visit Cardiology Sam Garcia PA-C [address] [place] [address] 08/27/2023 Hospital Encounter Surgery Dat Narayanan MD [address] [place] [address] 08/27/2023 Surgery Surgery Dat Narayanan MD [address] [place] [address] COLONOSCOPY FLEXIBLE PROXIMAL DIAGNOSTIC 10/16/2023 Office Visit Family Medicine Sam Resendez MD [address] [place] [address] 10/22/2023 Office Visit Neurology Elsie Capone MD [address] [place] [address] Scheduled Procedures Name Priority Associated Diagnoses Date/Ti me COLONOSCOPY FLEXIBLE PROXIMAL DIAGNOSTIC History of colonic polyps 08/27/2023 9:27 AM EST Health Maintenance Due Date Last Done Comments DISCUSS TOBACCO CESSATION (REFER TO SMARTSET #0856) 1955 COVID-19 Vaccine (#1) 04/05/1955 Alpha-1 Antitrypsin [...] D LEVEL ONCE IN A LIFETIME-USE SMARTSET# [id number] Completed 12/18/2015, 02/09/2015, 06/29/2014, Additional history exists LUNG CANCER SCREENING - USE SMARTSET 81249 Completed 06/20/2019, 07/25/2017, 07/11/2017, Additional history exists [...] this encounter Medical Devices Implanted Type Area Welding Production Supervisor Device Identifier Shelf Expiration Date Model / Serial / Lot Stent Carotid 8-6x30 [id number] - [id number] Implanted:Qty: 1 on 08/23/2013 at [facility] Right: Carotid [facility] : VASCULAR DEVICES 02/21/2016 [id number] / / [id number] documented as of this encounter Visit Diagnoses [...] the patient have Health Care Power of Service Employee? No Code Status History Code Status Date Activated Date Inactivated Comments Full Code 07/10/2017 5:59 PM 07/13/2017 3:18 PM Thi s order reflects the patients wishes and were consensually agreed upon. Question Answer Comments Discussion of Advance Directives occurred with: Patient/Family Does the patient have a Living Will? Yes, not currently available Does the patient have Health Care Power of Service Employee? No Full Code 08/23/2013 8:39 AM 08/24/2013 2:49 PM This order reflects the patients wishes and were consensually agreed upon. Full Code 08/02/2013 7:49 PM 08/06/2013 12:55 AM Th is order reflects the patients wishes and were consensually agreed upon. Question Answer Comments Discussion of Advance Directives occurred with: Patient/Family Care Teams Poultry Dressing Worker Relationship Specialty Start Date End Date Sam Resendez MD [address] [place] [address] PCP - General 04/07/1996 documented as of this encounter
--- OUTSIDE RECORDS SUMMARY | 2023-07-11 10:12 | External Medical Summary ---
Author Name Unknown Address Unknown Organization K01:[facility] - [address] [facility] [place] [address] Laboratory Report Ordering Provider Test Date Status ANETA VARGAS 05/18/2023 12:03:37 Final Observation Date Value Abnormality Reference (Units ) Status BUN 05/18/2023 12:03:37 12 6-20 (mg/dL) Final Creatinine 05/18/2023 12:03:37 1.1 0.6-1.2 (mg/dL) Final Glomerular filtration rate/1.73 sq M.predicted [Volume Rate/Area] in Serum, Plasma or Blood by Creatinine-based formula (CKD-EPI) 05/18/2023 12:03:37 74 >=60 (mL/min) Final eGFR is calculated based on the CKD-EPI 2020 equation SODIUM 05/18/2023 12:03:37 131 Below low normal 135 -146 (mmol/L) Final Potassium 05/18/2023 12:03:37 4.7 3.5-5.1 (m mol/L) Final Cl 05/18/2023 12:03:37 93 Below low normal 98- 107 (mmol/L) Final CO2 05/18/2023 12:03:37 25 22-32 (mmo l/L) Final Anion gap 05/18/2023 12:03:37 13 7-15 (mmol /L) Final Glucose 05/18/2023 12:03:37 93 70-120 (mg /dL) Final Albumin 05/18/2023 12:03:37 4.8 3.8-5.0 (g /dL) Final AST (Aspartate aminotransferase) 05/18/2023 12:03:37 28 10-50 (U/L) Fin al Alk Phos 05/18/2023 12:03:37 68 35-130 (U/ L) Final Bilirubin, Total 05/18/2023 12:03:37 0.2 <=1 .2 (mg/dL) Final Calcium 05/18/2023 12:03:37 9.7 8.4-10.2 ( mg/dL) Final Protein 05/18/2023 12:03:37 7.1 6.0-8.3 (g /dL) Final ALT (Alanine aminotransferase) 05/18/2023 12:03:37 31 10-50 (U/L) John james Performing Location [facility] [address] [facility] [address]
--- OUTSIDE RECORDS SUMMARY | 2023-07-11 10:12 | External Medical Summary | Summary of Care ---
Author Name Unknown Organization [facility] Address [address] [place] [address] Phone [phone] Care Team Providers Care Chief Radiation Therapist Name Role Phone Terry Resendez MD Primary Care Provider [phone] Reason for Visit * Reason Onset Date Comments Advice 12/12/2022 Encounter Details Date Type Department Care Team Description 12/12/2022 Telephone Neurology [facility] [address] [place] [address] Services, Scheduling [address] [place] [address] Advice Allergies Active Allergy Reactions Severity Noted Date Comments Ciprofloxacin Hives 09/01/2017 Statins 11/15/2020 All statins Simvastatin 05/07/2006 Severe myalgia's documented as of this encounter (statuses as of 04/15/2023) Medications Medication Sig Dispensed Refills Start Date End Date Status ASPIRIN EC 81 MG PO TBECIndications:Coron johan atherosclerosis of [place] coronary artery Take one pill daily 100 [...] Compounded formulation 30 Capsule 5 10/29/2021 Active Nitroglycerin 0.4 MG Sublingual Tablet Sublingual (Nitrostat) Place under the tongue 1 Tablet every 5 minutes as needed for Pain, Chest. up to 3 doses in 15 minutes 25 Tablet 11 12/02/2021 Active Tamsulosin HCl 0.4 MG Oral Capsule (Flomax)Indications:O bstructive uropathy Take by mouth 1 Capsule every other day . 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 1 Each 0 08/02/2022 Active ProAir HFA 108 (90 Base) MCG/ACT Inhalation Aerosol SolutionIndications:C OPD exacerbation (HCC) Inhale 2 Puffs by mouth every 4 hours as needed for Wheezing. 18 g 1 08/02/2022 Active Isosorbide Mononitrate ER 60 MG Oral Tablet [...] or chew 270 Capsule 3 10/17/2022 Active metFORMIN HCl ER 500 MG Oral Tablet Extended Release 24 Hour (Glucophage XR) TAKE ONE TABLET BY MOUTH EVERY DAY 90 Tablet 3 10/28/2022 Active Finasteride 5 MG Oral Tablet (Proscar) Take 1 Tablet by mouth in the morning. 90 Tablet 3 11/05/2022 Active Clopidogrel Bisulfate 75 MG Oral Tablet (pLAVix)Indications:A cute ischemic stroke (HCC) TAKE 1 TABLET BY MOUTH DAILY 90 Tablet 3 11/27/2022 Active Hospital, Clinic, or Other Facility Administered [...] Used Date Smoking Tobacco: Every Day Cigarettes 0.5 40 Smokeless Tobacco: Former Chew Alcohol Use [...] * Telephone Encounter - ZACHARY Arias - 12/12/2022 4:25 PM EDT See MyG * Telephone Encounter - Elsie Capone MD - 12/12/2022 2:59 PM EDT For how long had he been out of [facility] did he miss doses * Telephone Encounter - ZACHARY Arias - 12/12/2022 1:[address] Capone, pt is scheduled for a f/u with you in December. Looks like he was also at the ER in November for syncope (scanned in chart) * Telephone Encounter - LILY Christianson - 12/12/2022 12:38 PM EDT Pt called and wanted to update Dr. Capone a few things. Pt fell two weeks ago an hit his head on concrete. Pt had a seizure this morning and took him to Er & the doc there wanted to update . He was out of [facility] the hospital renewed it and sent to drug store for him. They sent him home and said they dont need to keep him. Thank you documented in this encounter Plan of Treatment Upcoming Encounters Date Type Specialty Care Team Description 04/15/2023 Office Visit Family Medicine Terry Resendez MD [address] [place] [address] 04/20/2023 Office Visit Neurology Elsie Capone MD [address] [place] [address] 05/07/2023 Hospital Encounter Surgery Dat Narayanan MD [address] [place] [address] 05/07/2023 Surgery Surgery Dat Narayanan MD [address] [place] [address] COLONOSCOPY FLEXIBLE PROXIMAL DIAGNOSTIC 08/12/2023 Office Visit Cardiology Terry Garcia PA-C [address] [place] [address] Scheduled Procedures Name Priority Associated Diagnoses Date/Ti me COLONOSCOPY FLEXIBLE PROXIMAL DIAGNOSTIC History of colonic polyps 05/07/2023 1:44 PM EDT Health Maintenance Due Date Last [...] COMPLETED IN PAST YEAR FOR COPD 11/18/2023 11/17/2022 GFR 01/30/2024 01/29/2023, 10/23, 10/17/2022, Additional history exists DTaP,Tdap,and Td Vaccines (2 - Td or Tdap) 01/17/2026 01/18/2016, 03/15/2004 VITAMIN D LEVEL ONCE IN A LIFETIME-USE SMARTSET# [id number] Completed 12/18/2015, 02/09/2015, 06/29/2014, Additional history exists LUNG CANCER SCREENING - USE SMARTSET 29086 Completed 06/20/2019, 07/25/2017, 07/11/2017, Additional history exists [...] this encounter Medical Devices Implanted Type Area Chemist Water Purification Device Identifier Shelf Expiration Date Model / Serial / Lot Stent Carotid 8-6x30 [id number] - [id number] Implanted:Qty: 1 on 08/23/2013 [place] [facility] Right: Carotid [facility] : VASCULAR DEVICES 02/21/2016 [id number] / / [id number] documented as of this encounter Advance Directives [...] the patient have Health Care Power of Construction Job Titles? No Code Status History Code Status Date Activated Date Inactivated Comments Full Code 07/10/2017 5:59 PM 07/13/2017 3:18 PM Thi s order reflects the patients wishes and were consensually agreed upon. Question Answer Comments Discussion of Advance Directives occurred with: Patient/Family Does the patient have a Living Will? Yes, not currently available Does the patient have Health Care Power of Construction Job Titles? No Full Code 08/23/2013 8:39 AM 08/24/2013 2:49 PM This order reflects the patients wishes and were consensually agreed upon. Full Code 08/02/2013 7:49 PM 08/06/2013 12:55 AM Th is order reflects the patients wishes and were consensually agreed upon. Question Answer Comments Discussion of Advance Directives occurred with: Patient/Family Care Teams Chief Radiation Therapist Relationship Specialty Start Date End Date Terry Resendez MD [address] [place] [address] PCP - General 04/07/1996 documented as of this encounter
--- OUTSIDE RECORDS SUMMARY | 2023-07-11 10:13 | External Medical Summary | Summary of Care ---
Author Name Unknown Organization [facility] Address [address] [address] Phone [phone] Care Team Providers Care Digital Media Associate Name Role Phone Terry Resendez MD Primary Care Provider [phone] Reason for Visit * Reason Onset Date Comments Advice 02/23/2023 Pre Cert/Prior Auth 02/23/2023 Encounter Details Date Type Department Care Team Description 02/23/2023 Telephone Cardiology, [facility] [address] [place] [address] Patel Escamilla, [address] [place] [address] Advice; Pre Cert/Prior Auth Allergies Active Allergy Reactions Severity Noted Date Comments Ciprofloxacin Hives 09/01/2017 Statins 11/15/2020 All statins Simvastatin 05/07/2006 Severe myalgia's documented as of this encounter (statuses as of 02/27/2023) Medications Medication Sig Dispensed Refills Start Date End Date Status ASPIRIN EC 81 MG PO TBECIndications:Coron johan atherosclerosis of [place] coronary artery Take one pill daily 100 [...] 45 Capsule 3 06/03/2022 Active Spacer/Aero-Holding Chambers DeviceIndications: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 1 [...] (dose increase) 180 Tablet 1 01/30/2023 Active HYDROcodone-Acetamino phen 5-325 MG Oral TabletIndications:Chr onic bilateral low back pain with right-sided sciatica Take 1 Tablet by mouth 3 times a day as needed for Pain, Mild or Pain, Moderate. 30 day RX 90 Tablet 0 02/02/2023 Active Ajovy 225 MG/1.5ML Subcutaneous Solution Auto-injector (9GAG-rm) Inject 1.5 ml under the skin once a month 1.5 mL 5 02/02/2023 Active Lasmiditan Succinate 50 MG Oral Tablet (Reyvow) Take one at onset of migraine. Max 1 dose in 24hours 10 Tablet 5 02/03/2023 Active Hospital, Clinic, or Other Facility Administered Medication Ordered Dose Route Frequency Start Date End Date Status albuterol sulfate (PROVENTIL) (2.5 MG/3ML) 0.083% inhalation solution 2.5 mgIndications:COPD, severity to be determined ([facility]) 2.5 mg NEBULIZER Q4H PRN 07/05/2019 Active documented as of this encounter (statuses as of 02/27/2023) Active Problems Problem Noted Date Hemiplegia and [...] as of this encounter (statuses as of 02/27/2023) Resolved Problems Problem Noted Date Resolved Date [...] as of this encounter (statuses as of 02/27/2023) Immunizations Name Administration Dates Next Due Pneumococcal Conjugate Vacc, 13 Valent (Prevnar) 04/11/2020 Pneumococcal Polysaccharide PPV23 (Pneumovax) 08/05/2013 Seasonal Influenza, Quadriva lent, No Preserve, 6 Mons & Above, IM 06/19/2017 Seasonal Influenza, Quadriva lent, No Preserve, [...] encounter Miscellaneous Notes * Telephone Encounter - Jenna Gan, [facility] - 02/27/2023 7:40 AM EDT PCSK-9 Inhibitor Prior-Authorization Request Medication/Disease State Information: PCSK9 inhibitor needing prior auth: Praluent 75 mg every 2 weeks Diagnosis: hyperlipidemia, ASCVD (CAD and carotid artery disease) Quantity (30 or 90 day): 90 Failed or Intolerant to or Contraindicated: Simvastatin (Hospalized with severe reaction, muscle related--for this reason statins contraindicated), Zetia (myaglia), Gemfibrozil, and Fenofibrate LDL Goal: < 70 mg/dL Pre-Treatment LDL: 88 mg/dL Date: 11/17/22 Current therapy: none Trial of max tolerated dose of Statin and Ezetimibe: yes Lipid Panel Results: Results for orders placed or performed during the hospital encounter of 07/26/17 LIPID PANEL Result Value Ref Range HOURS FASTING NOT PROVIDED hours Triglycerides 180 <200 mg/dL Cholesterol 184 <200 mg/dL HDL Cholesterol 38 (L) >39 mg/dL Cholesterol-HDL Ratio 4.8 LDL Cholesterol 110 0 - 129 mg/dL Results for orders placed or performed in visit on 11/17/22 LIPID PANEL WITH DIRECT LDL IF TG IS HIGH Result Value Ref Range Triglycerides 121 <=174 mg/dL Cholesterol 194 <200 mg/dL HDL Cholesterol 82 >39 mg/dL Non-HDL Cholesterol 112 <=159 mg/dL LDL Cholesterol 88 <=129 mg/dL Route referral message to [facility] PHARMAC[facility] [place] [[id number]]. Please submit to BOTH primary insurance and secondary insurance (ex PACE/PACENET) if applicable. * Telephone Encounter - Jenna Gan RPh - 02/27/2023 7:37 AM EDT Cardiology Pre-Cert Request Medication/Disease State Information: Medication: PCSK9i - Alirocumab (Praluent) 75mg/ml pen - 75mg every 2 week. . Referral for pharmacist for: No Pharmacist Involvement Diagnosis (including ICD-10): ASCVD- CAD: I25.10, Hyperlipidemia: E78.5 and carotid stenosis Medication(s) Tried/Failed/Contraindicated: Simvastatin (hospitalized with severe reaction), Gemfibrozil, Zetia, Fenofibrate See corresponding visit note(s) for additional supporting clinical information. Office Information: Prescriber: Terry Garcia Route to Cardiology Pharmacist Pool [id number]. *Do not send prescription at this time. Pre-cert will be completed prior to sending prescription* * Telephone Encounter - Terry Garcia PA-C - 02/26/2023 4:47 PM EDT Yes, probably just needs prior authorization/medication Terry Garcia PA-C Department of Cardiology * Telephone Encounter - Jenna Gan RPh - 02/26/2023 8:09 AM EDT Terry, Would you like me to help get this patient on PCSK9? If so, do you think he needs an appt to re-educate him on how to inject? Or does he just need the prior auth completed and medication ordered? Jenna Gan Pharm D Clinical Pharmacist Cardiology 02/26/2023,8:10 AM * Telephone Encounter - Loren Blackwell CMA - 02/23/2023 4:48 PM EDT Spoke with patient's , Maria Dolores. Reports that patient has not been on Praluent for years due to insurance coverage. Last renewal in [facility] 03/21/2020. * Telephone Encounter - Terry Garcia PA-C - 02/23/2023 4:22 PM EDT Intolerant to statin therapy. Not a candidate for retrial. Significant side effects with ezetimibe,gemfibrozil and fenofibrate. Most recently prescribed Praluent with improved lipid control. ? Still taking PCSK9 Inhibitor Praluent? Terry Garcia PA-C Department of Cardiology * Telephone Encounter - Sakshi Mendoza CPhT - 02/23/2023 8:51 AM EDT [facility] advising statin therapy is recommended. Thanks, Sakshi Mendoza CPhT, [facility] ([facility] [address] [place] [address] documented in this encounter Plan of Treatment Upcoming Encounters Date Type Specialty Care Team Description 04/17/2023 Office Visit Family Medicine Terry Resendez MD [address] [place] [address] 04/20/2023 Office Visit Neurology Elsie Capone MD [address] [place] [address] 05/07/2023 Hospital Encounter Surgery Dat Narayanan MD [address] [place] [address] 05/07/2023 Surgery Surgery Dat Narayanan MD [address] [place] [address] COLONOSCOPY FLEXIBLE PROXIMAL DIAGNOSTIC 08/12/2023 Office Visit Cardiology Terry Garcia PA-C [address] [place] [address] Scheduled Procedures Name Priority Associated Diagnoses Date/Ti me COLONOSCOPY FLEXIBLE PROXIMAL DIAGNOSTIC History of colonic polyps 05/07/2023 1:44 PM EDT Health Maintenance Due Date Last Done Comments DISCUSS TOBACCO CESSATION (REFER TO SMARTSET #5053) 1955 COVID-19 Vaccine (#1) 04/05/1955 Alpha-1 Antitrypsin 1972 Zoster Vaccines (1 of 2) 2004 *COPD SEVERITY VERIFIED BY PFT 08/22/2015 DXA Scan 11/27/2017 11/28/2015 *BISPHONATE OR OTHER ACCEPTABLE MEDICATION NEEDED FOR OSTEOPOROSIS (REFER TO SMARTSET #1146) 06/14/2018 Depression, Most Recent Score >= 10 (will fire each visit until score < 10) 06/14/2020 06/13/2020 Pneumococcal Vaccine: 65+ Years (3 - PPSV23 if available, else PCV20) 04/11/2021 04/11/2020, 08/05/2013 DIABETES-EYE EXAM 01/29/2022 01/29/2021 COLONOSCOPY-EVERY 3 YRS AGES 18-100 04/05/2022 04/05/2019, 04/05/2019, 01/15/2016, Additional history exists HbA1c 04/16/2023 10/17/2022, 09/25, 10/11/2019, Additional history exists Influenza Vaccine (FLU shot) (#1) 2023 06/19/2017, 06/27/2015, 06/29/2014, Additional history exists Albumin/Creatinine Ratio 10/17/2023 023, 10/16/2021, 10/11/2019, Additional history exists DIABETES-FOOT EXAM 10/17/2023 10/17/2022, 0 09/05/2020, 10/11/2019, Additional history exists O2 ASSESSMENT COMPLETED IN PAST YEAR FOR COPD 11/18/2023 11/17/2022 Yearly B-12 11/18/2023 11/17/2022, 09/25, 10/16/2021, Additional history exists GFR 01/30/2024 01/29/2023, 10/23, 10/17/2022, Additional history exists DTaP,Tdap,and Td Vaccines (2 - Td or Tdap) 01/17/2026 01/18/2016, 03/15/2004 VITAMIN D LEVEL ONCE IN A LIFETIME-USE SMARTSET# [id number] Completed 12/18/2015, 02/09/2015, 06/29/2014, Additional history exists LUNG CANCER SCREENING - USE SMARTSET 25424 Completed 06/20/2019, 07/25/2017, 07/11/2017, Additional history exists [...] this encounter Medical Devices Implanted Type Area Car Packer Device Identifier Shelf Expiration Date Model / Serial / Lot Stent Carotid [id number] [id number] - [id number] Implanted:Qty: 1 on 08/23/2013 at [place] [facility] [place] Right: Carotid [facility] : VASCULAR DEVICES 02/21/2016 [id number] / / [id number] documented as of this encounter Advance Directives [...] the patient have Health Care Power of Instructional Developer? No Code Status History Code Status Date Activated Date Inactivated Comments Full Code 07/10/2017 5:59 PM 07/13/2017 3:18 PM Thi s order reflects the patients wishes and were consensually agreed upon. Question Answer Comments Discussion of Advance Directives occurred with: Patient/Family Does the patient have a Living Will? Yes, not currently available Does the patient have Health Care Power of Instructional Developer? No Full Code 08/23/2013 8:39 AM 08/24/2013 2:49 PM This order reflects the patients wishes and were consensually agreed upon. Full Code 08/02/2013 7:49 PM 08/06/2013 12:55 AM Th is order reflects the patients wishes and were consensually agreed upon. Question Answer Comments Discussion of Advance Directives occurred with: Patient/Family Care Teams Digital Media Associate Relationship Specialty Start Date End Date Terry Resendez MD [address] [place] [address] PCP - General 04/07/1996 documented as of this encounter
--- OUTSIDE RECORDS SUMMARY | 2023-07-11 10:13 | External Medical Summary | Summary of Care ---
Author Name Unknown Organization [facility] Address [address] [place] [address] Phone [phone] Care Team Providers Care Consultant Rn Name Role Phone Terry Resendez MD Primary Care Provider [phone] Encounter Details Date Type Department Care Team Description 02/02/2023 Orders Only Neurology [facility] [address] [place] [address] Elsie Capone MD [address] [place] [address] Allergies Active Allergy Reactions Severity Noted Date Comments Ciprofloxacin Hives 09/01/2017 Statins 11/15/2020 All statins Simvastatin 05/07/2006 Severe myalgia's documented as of this encounter (statuses as of 02/02/2023) Medications Medication Sig Dispensed Refills Start Date End Date Status ASPIRIN EC 81 MG PO TBECIndications:Esther nary atherosclerosis of [place] coronary artery Take one pill daily 100 [...] Compounded formulation 30 Capsule 5 2 Active Nitroglycerin 0.4 MG Sublingual Tablet Sublingual [...] with inhaler. 1 Each 0 2 Active ProAir HFA 108 (90 Base) MCG/ACT Inhalation Aerosol SolutionIndications: COPD exacerbation (HCC) Inhale 2 Puffs by mouth every 4 hours as needed for Wheezing. 18 g 1 2 Active Isosorbide Mononitrate ER 60 MG Oral [...] or chew 270 Capsule 3 3 Active metFORMIN HCl ER 500 MG Oral Tablet Extended Release 24 Hour (Glucophage XR) TAKE ONE TABLET BY MOUTH EVERY DAY 90 Tablet 3 3 Active Finasteride 5 MG Oral [...] the morning. 90 Capsule 1 3 Active Lasmiditan Succinate 50 MG Oral Tablet (Reyvow) Take one at onset of migraine. Max 1 dose in 24hours 10 Tablet 5 3 Active levETIRAcetam 500 MG Oral Tablet (Keppra) 1 twice a day (dose increase) 180 Tablet 1 3 Active HYDROcodone-Acetamin ophen 5-325 MG Oral [...] once a month 1.5 mL 5 3 02/03/20 23 Discontinu ed(Refill) Hospital, Clinic, or Other Facility Administered Medication Ordered Dose Route Frequency Start Date End Date Status albuterol sulfate (PROVENTIL) (2.5 MG/3ML) 0.083% inhalation solution 2.5 mgIndications:COPD, severity to be determined (HCC) 2.5 mg NEBULIZER Q4H PRN 07/05/2019 Active documented as of this encounter (statuses as of 02/02/2023) Active Problems Problem Noted Date Hemiplegia and [...] as of this encounter (statuses as of 02/02/2023) Resolved Problems Problem Noted Date Resolved Date [...] as of this encounter (statuses as of 02/02/2023) Immunizations Name Administration Dates Next Due Pneumococcal [...] Encounters Date Type Specialty Care Team Description 02/13/2023 Cardiac Studies Cardiac Studies 02/13/2023 Nurse Only Ancillary Jillian Nurse [address] [place] [address] 04/17/2023 Office Visit Family Medicine Terry Resendez MD [address] [place] [facility] [place] [address] 04/20/2023 Office Visit Neurology Elsie Capone MD [address] [place] [address] 05/07/2023 Hospital Encounter Surgery Dat Narayanan MD [address] [place] [address] 05/07/2023 Surgery Surgery Dat Narayanan MD [address] [place] [address] COLONOSCOPY FLEXIBLE PROXIMAL DIAGNOSTIC 08/12/2023 Office Visit Cardiology Terry Garcia PA-C [address] [place] [address] Scheduled Procedures Name Priority Associated Diagnoses Date/Ti me COLONOSCOPY FLEXIBLE PROXIMAL DIAGNOSTIC History of colonic polyps 05/07/2023 2:15 PM EDT Health Maintenance Due Date Last Done Comments DISCUSS TOBACCO CESSATION (REFER TO SMARTSET #9701) 1955 COVID-19 Vaccine (#1) 04/05/1956 Alpha-1 Antitrypsin [...] Additional history exists Influenza Vaccine (FLU shot) (Season Ended) 2023 06/19/2017, 06/27/2015, 06/29/2014, Additional history exists [...] D LEVEL ONCE IN A LIFETIME-USE SMARTSET# [id number] Completed 12/18/2015, 02/09/2015, 06/29/2014, Additional history exists LUNG CANCER SCREENING - USE SMARTSET [id number] Completed 06/20/2019, 07/25/2017, 07/11/2017, Additional history exists [...] this encounter Medical Devices Implanted Type Area Amusement Ride Inspector Device Identifier Shelf Expiration Date Model / Serial / Lot Stent Carotid [id number] [id number] - [id number] Implanted:Qty: 1 on 08/23/2013 [place] [facility] [place] Carotid [facility] VASCULAR DEVICES 02/21/2016 [id number] / / [id number] documented as of this encounter Advance Directives [...] the patient have Health Care Power of Galley Stripper? No Code Status History Code Status Date Activated Date Inactivated Comments Full Code 07/10/2017 5:59 PM 07/13/2017 3:18 PM Thi s order reflects the patients wishes and were consensually agreed upon. Question Answer Comments Discussion of Advance Directives occurred with: Patient/Family Does the patient have a Living Will? Yes, not currently available Does the patient have Health Care Power of Galley Stripper? No Full Code 08/23/2013 8:39 AM 08/24/2013 2:49 PM This order reflects the patients wishes and were consensually agreed upon. Full Code 08/02/2013 7:49 PM 08/06/2013 12:55 AM Th is order reflects the patients wishes and were consensually agreed upon. Question Answer Comments Discussion of Advance Directives occurred with: Patient/Family Care Teams Consultant Rn Relationship Specialty Start Date End Date Terry Resendez MD [address] [place] [address] PCP - General 04/07/1996 documented as of this encounter
--- OUTSIDE RECORDS SUMMARY | 2023-07-11 10:13 | External Medical Summary | Summary of Care ---
Author Name Unknown Organization [facility] Address [address] [place] [address] Phone [phone] Care Team Providers Care Sack Repairer Name Role Phone Terry Resendez MD Primary Care Provider [phone] Encounter Details Date Type Department Care Team Description 02/13/2023 Nurse Only Ancillary Department, [facility] [address] [place] [address] [facility], Nurse [address] [place] [address] Arrived Allergies Active Allergy Reactions Severity Noted Date Comments Ciprofloxacin Hives 09/01/2017 Statins 11/15/2020 All statins Simvastatin 05/07/2006 Severe myalgia's documented as of this encounter (statuses as of 02/13/2023) Medications Medication Sig Dispensed Refills Start Date End Date Status ASPIRIN EC 81 MG PO TBECIndications:Coron johan atherosclerosis of [place] coronary artery Take one pill daily 100 [...] 45 Capsule 3 06/03/2022 Active Spacer/Aero-Holding Chambers DeviceIndications: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 1 [...] Active Ajovy 225 MG/1.5ML Subcutaneous Solution Auto-injector (Rabbit-vfrm) Inject 1.5 ml under the skin once [...] as of this encounter (statuses as of 02/13/2023) Active Problems Problem Noted Date Hemiplegia and [...] as of this encounter (statuses as of 02/13/2023) Resolved Problems Problem Noted Date Resolved Date [...] as of this encounter (statuses as of 02/13/2023) Immunizations Name Administration Dates Next Due Pneumococcal [...] as of this encounter Progress Notes * Donna Ramos LPN - 02/13/2023 1:17 PM EDT Pt here to have a ZIO placed for 7 days per order. Pt voiced understanding and tolerated well. [id number] documented in this encounter Plan of Treatment Upcoming Encounters Date Type Specialty Care Team Description 04/17/2023 Office Visit Family Medicine Terry Resendez MD [address] [place] [address] 04/20/2023 Office Visit Neurology Elsie Capone MD [address] [place] [address] 05/07/2023 Hospital Encounter Surgery Dat Narayanan MD [address] [place] [address] 05/07/2023 Surgery Surgery Dat Narayanan MD [address] [place] [address] COLONOSCOPY FLEXIBLE PROXIMAL DIAGNOSTIC 08/12/2023 Office Visit Cardiology Terry Garcia, PA-C [address] [place] [address] Scheduled Procedures Name Priority Associated Diagnoses Date/Ti me COLONOSCOPY FLEXIBLE PROXIMAL DIAGNOSTIC History of colonic polyps 05/07/2023 1:46 PM EDT Health Maintenance Due Date Last [...] D LEVEL ONCE IN A LIFETIME-USE SMARTSET# [id number] Completed 12/18/2015, 02/09/2015, 06/29/2014, Additional history exists LUNG CANCER SCREENING - USE SMARTSET [id number] Completed 06/20/2019, 07/25/2017, 07/11/2017, Additional history exists [...] this encounter Medical Devices Implanted Type Area Communication Coordinator Device Identifier Shelf Expiration Date Model / Serial / Lot Stent Carotid 8-6x30 [id number] - [id number] [place]planted:Qty[place] 1 [place]23[place] [facility] [facility] [place] Carotid [facility] VASCULAR DEV[facility] 02/21/2016 [id number] / / [id number] documented as of this encounter Visit Diagnoses Diagnosis Syncope, unspecified syncope type- Primary History of colonic polyps Personal history of [...] the patient have Health Care Power of Consultant Nurse? No Code Status History Code Status Date Activated Date Inactivated Comments Full Code 07/10/2017 5:59 PM 07/13/2017 3:18 PM Thi s order reflects the patients wishes and were consensually agreed upon. Question Answer Comments Discussion of Advance Directives occurred with: Patient/Family Does the patient have a Living Will? Yes, not currently available Does the patient have Health Care Power of Consultant Nurse? No Full Code 08/23/2013 8:39 AM 08/24/2013 2:49 PM This order reflects the patients wishes and were consensually agreed upon. Full Code 08/02/2013 7:49 PM 08/06/2013 12:55 AM Th is order reflects the patients wishes and were consensually agreed upon. Question Answer Comments Discussion of Advance Directives occurred with: Patient/Family Care Teams Sack Repairer Relationship Specialty Start Date End Date Terry Resendez MD [address] [place] [address] PCP - General 04/07/1996 documented as of this encounter
--- OUTSIDE RECORDS SUMMARY | 2023-07-11 10:13 | External Medical Summary | Summary of Care ---
Author Name Unknown Organization [facility] Address [address] [place] [address] Phone [phone] Care Team Providers Care Circuit Design Engineer Name Role Phone Sam Resendez MD Primary Care Provider Reason for Visit * Reason Onset Date Comments Medication Refill 03/31/2023 Encounter Details Date Type Department Care Team Description 03/31/2023 Refill [facility] [address] [place] [address] Sam Resendez MD [address] [place] [address] Chronic bilateral low back pain with right-sided sciatica Allergies Active Allergy Reactions Severity Noted Date Comments Ciprofloxacin Hives 09/01/2017 Statins 11/15/2020 All statins Simvastatin 05/07/2006 Severe myalgia's documented as of this encounter (statuses as of 04/01/2023) Medications Medication Sig Dispensed Refills Start Date End Date Status ASPIRIN EC 81 MG PO TBECIndications:Esther nary atherosclerosis of [place] coronary artery Take one pill daily 100 [...] 30 day RX 90 Tablet 0 3 03/31/20 23 Discontinu ed(Refill) Hospital, Clinic, or Other Facility Administered Medication Ordered Dose Route Frequency Start Date End Date Status albuterol sulfate (PROVENTIL) (2.5 MG/3ML) 0.083% inhalation solution 2.5 mgIndications:COPD, severity to be determined (HCC) 2.5 mg NEBULIZER Q4H PRN 07/05/2019 Active documented as of this encounter (statuses as of 04/01/2023) Active Problems Problem Noted Date Hemiplegia and [...] as of this encounter (statuses as of 04/01/2023) Resolved Problems Problem Noted Date Resolved Date [...] as of this encounter (statuses as of 04/01/2023) Immunizations Name Administration Dates Next Due Pneumococcal [...] Telephone Encounter - Sam Resendez MD - 04/01/2023 8:12 PM EDTSigned Prescriptions: Disp Refills HYDROcodone-Acetaminophen 5-325 MG Oral Ta*90 Tab*0 Sig: Take 1 Tablet by mouth 3 times a day as needed for Pain, Mild or Pain, Moderate. 30 day RX Authorizing Provider: SAM RESENDEZ * Telephone Encounter - Donna Samson [facility] - 04/01/2023 10:25 AM EDT Pending Prescriptions: Disp Refills HYDROcodone-Acetaminophen 5-325 MG Oral Ta*90 Tab*0 Sig: Take 1 Tablet by mouth 3 times a day as needed for Pain, Mild or Pain, Moderate. 30 day RX * Telephone Encounter - Donna Samson [facility] - 04/01/2023 10:20 AM EDT I have reviewed the patients controlled substance dispensing history in the Prescription Drug Monitoring Program in compliance with the [facility] regulations before prescribing a controlled substance. PDMP checked on 04/01/2023. Pending Prescriptions: Disp Refills HYDROcodone-Acetaminophen 5-325 MG Oral T*90 Tab*0 Sig: Take 1 Tablet by mouth 3 times a day as needed for Pain, Mild or Pain, Moderate. 30 day RX Last Visit: 10/17/2022 (in office), Visit date not found (telemedicine) Next Visit: 04/15/2023 Date medication was last filled: 03/03/23 Date medication is due for refill: 04/01/23 Pharm[id number] [address] [place] Is this request for a controlled substance? [...] Results Review. Please approve if appropriate. Thanks, Donna Samson [facility] Clinical Pharmacist Centralized Clinical Pharmacy Services (CCPS) (Formerly Telepharmacy) [phone] documented in this encounter Plan of Treatment Upcoming Encounters Date Type Specialty Care Team Description 04/15/2023 Office Visit Family Medicine Sam Resendez MD [address] [place] [address] 04/20/2023 Office Visit Neurology Elsie Capone MD [address] [place] [address] 05/07/2023 Hospital Encounter Surgery Dat Narayanan MD [address] [place] [address] 05/07/2023 Surgery Surgery Dat Narayanan MD [address] [place] [address] COLONOSCOPY FLEXIBLE PROXIMAL DIAGNOSTIC 08/12/2023 Office Visit Cardiology Sam Garcia PA-C [address] [place] [address] Scheduled Procedures Name Priority Associated Diagnoses Date/Ti me COLONOSCOPY FLEXIBLE PROXIMAL DIAGNOSTIC History of colonic polyps 05/07/2023 1:44 PM EDT Health Maintenance Due Date Last Done Comments DISCUSS TOBACCO CESSATION (REFER TO SMARTSET #7831) 1954 COVID-19 Vaccine (#1) 04/05/1955 Alpha-1 Antitrypsin 1972 Zoster Vaccines (1 of 2) 2004 *COPD SEVERITY VERIFIED BY PFT 08/22/2015 DXA Scan 11/27/2017 11/28/2015 *BISPHONATE OR OTHER ACCEPTABLE MEDICATION NEEDED FOR OSTEOPOROSIS (REFER TO SMARTSET #0366) 06/14/2018 AAA Screening 2019 Depression, Most Recent [...] D LEVEL ONCE IN A LIFETIME-USE SMARTSET# 86036 Completed 12/18/2015, 02/09/2015, 06/29/2014, Additional history exists LUNG CANCER SCREENING - USE SMARTSET 68089 Completed 06/20/2019, 07/25/2017, 07/11/2017, Additional history exists [...] this encounter Medical Devices Implanted Type Area Binding Machine Operator Device Identifier Shelf Expiration Date Model / Serial / Lot Stent Carotid 8-6x30 [id number] - [id number] Implanted:Qty: 1 on 08/23/2013 at OR [facility] [place] Right: Carotid [employer] : VASCULAR DEVICES 02/21/2016 [id number] / / [id number] documented as of this encounter Visit Diagnoses [...] the patient have Health Care Power of Management Tech? No Code Status History Code Status Date Activated Date Inactivated Comments Full Code 07/10/2017 5:59 PM 07/13/2017 3:18 PM Thi s order reflects the patients wishes and were consensually agreed upon. Question Answer Comments Discussion of Advance Directives occurred with: Patient/Family Does the patient have a Living Will? Yes, not currently available Does the patient have Health Care Power of Management Tech? No Full Code 08/23/2013 8:39 AM 08/24/2013 2:49 PM This order reflects the patients wishes and were consensually agreed upon. Full Code 08/02/2013 7:49 PM 08/06/2013 12:55 AM Th is order reflects the patients wishes and were consensually agreed upon. Question Answer Comments Discussion of Advance Directives occurred with: Patient/Family Care Teams Circuit Design Engineer Relationship Specialty Start Date End Date Sam Resendez MD [address] [place] [address] PCP - General 04/07/1996 documented as of this encounter
--- OUTSIDE RECORDS SUMMARY | 2023-07-11 10:13 | External Medical Summary | Summary of Care ---
Author Name Unknown Organization [facility] Address [address] [place] [address] Phone [phone] Care Team Providers Care Cyber Systems Engineer Name Role Phone Sam Resendez MD Primary Care Provider Reason for Visit * Reason Onset Date Comments Medication Refill 02/28/2023 Encounter Details Date Type Department Care Team Description 02/28/2023 Refill [facility] [address] [place] [address] Sam Resendez MD [address] [place] [address] Chronic bilateral low back pain with right-sided sciatica Allergies Active Allergy Reactions Severity Noted Date Comments Ciprofloxacin Hives 09/01/2017 Statins 11/15/2020 All statins Simvastatin 05/07/2006 Severe myalgia's documented as of this encounter (statuses as of 03/02/2023) Medications Medication Sig Dispensed Refills Start Date End Date Status ASPIRIN EC 81 MG PO TBECIndications:Esther nary atherosclerosis of [place] coronary artery Take one pill daily 100 [...] Active Ajovy 225 MG/1.5ML Subcutaneous Solution Auto-injector ([employer]-vfrm) Inject 1.5 ml under the skin once a month 1.5 mL 5 3 Active Lasmiditan Succinate 50 MG Oral Tablet (Reyvow) Take one at onset of migraine. Max 1 dose in 24hours 10 Tablet 5 3 Active HYDROcodone-Acetamin ophen 5-325 MG [...] 30 day RX 90 Tablet 0 3 02/29/20 23 Discontinu ed(Refill) Hospital, Clinic, or Other Facility Administered Medication Ordered Dose Route Frequency Start Date End Date Status albuterol sulfate (PROVENTIL) (2.5 MG/3ML) 0.083% inhalation solution 2.5 mgIndications:COPD, severity to be determined (HCC) 2.5 mg NEBULIZER Q4H PRN 07/05/2019 Active documented as of this encounter (statuses as of 03/02/2023) Active Problems Problem Noted Date Hemiplegia and [...] as of this encounter (statuses as of 03/02/2023) Resolved Problems Problem Noted Date Resolved Date [...] as of this encounter (statuses as of 03/02/2023) Immunizations Name Administration Dates Next Due Pneumococcal [...] Telephone Encounter - Sam Resendez MD - 03/02/2023 5:12 PM EDTSigned Prescriptions: Disp Refills HYDROcodone-Acetaminophen 5-325 MG Oral Ta*90 Tab*0 Sig: Take 1 Tablet by mouth 3 times a day as needed for Pain, Mild or Pain, Moderate. 30 day RX Authorizing Provider: SAM RESENDEZ * Telephone Encounter - Cheryl Panda [facility] - 03/02/2023 10:04 AM EDTPending Prescriptions: Disp Refills HYDROcodone-Acetaminophen 5-325 MG Oral Ta*90 Tab*0 Sig: Take 1 Tablet by mouth 3 times a day as needed for Pain, Mild or Pain, Moderate. 30 day RX * Telephone Encounter - Cheryl Panda [facility] - 03/02/2023 10:04 AM EDT I have reviewed the patients controlled substance dispensing history in the Prescription Drug Monitoring Program in compliance with the [facility] regulations before prescribing a controlled substance. PDMP checked on 03/02/2023. Pending Prescriptions: Disp Refills HYDROcodone-Acetaminophen 5-325 MG Oral T*90 Tab*0 Sig: Take 1 Tablet by mouth 3 times a day as needed for Pain, Mild or Pain, Moderate. 30 day RX Last Visit: 10/17/2022 (in office), Visit date not found (telemedicine) Next Visit: 04/17/2023 Date medication was last filled: 02/02/23 Date medication is due for refill: 03/03/23 Pharmacy: [id number] [address] Is this request for [...] Results Review. Please approve if appropriate. Thanks, Cheryl Panda PharmD Clinical Pharmacist Centralized Clinical Pharmacy Services (CCPS - Formerly Telepharmacy) [phone] 03/02/2023 10:04 AM documented in this encounter Plan of Treatment Upcoming Encounters Date Type Specialty Care Team Description 04/17/2023 Office Visit Family Medicine Sam Resendez MD [address] [place] [address] 04/20/2023 Office Visit Neurology Elsie Capone MD [address] [place] [address] 05/07/2023 Hospital Encounter Surgery Dat Narayanan MD [address] [place] [address] 05/07/2023 Surgery Surgery Dat Narayanan MD [address] [place] [address] COLONOSCOPY FLEXIBLE PROXIMAL DIAGNOSTIC 08/12/2023 Office Visit Cardiology Sam Garcia PA-C [address] [place] [address] Scheduled Procedures Name Priority Associated Diagnoses Date/Ti me COLONOSCOPY FLEXIBLE PROXIMAL DIAGNOSTIC History of colonic polyps 05/07/2023 1:44 PM EDT Health Maintenance Due Date Last Done Comments DISCUSS TOBACCO CESSATION (REFER TO SMARTSET #8970) 1954 COVID-19 Vaccine (#1) 04/05/1955 Alpha-1 Antitrypsin 1972 B-12 1972 Zoster Vaccines (1 of 2) 2004 *COPD SEVERITY VERIFIED BY PFT 08/22/2015 DXA Scan 11/27/2017 11/28/2015 *BISPHONATE OR OTHER ACCEPTABLE MEDICATION NEEDED FOR OSTEOPOROSIS (REFER TO SMARTSET #0176) 06/14/2018 Depression, Most Recent Score >= 10 [...] D LEVEL ONCE IN A LIFETIME-USE SMARTSET# [id number] Completed 12/18/2015, 02/09/2015, 06/29/2014, Additional history exists LUNG CANCER SCREENING - USE SMARTSET 94016 Completed 06/20/2019, 07/25/2017, 07/11/2017, Additional history exists [...] this encounter Medical Devices Implanted Type Area Cook Mess Device Identifier Shelf Expiration Date Model / Serial / Lot Stent Carotid 8-6x30 [id number] - [id number] Implanted:Qty: 1 on 08/23/2013 at OR [facility] [place] Right: Carotid [facility] : VASCULAR DEVICES 02/21/2016 [id number] / / [id number] documented as of this encounter Visit Diagnoses [...] the patient have Health Care Power of Pit Steward? No Code Status History Code Status Date Activated Date Inactivated Comments Full Code 07/10/2017 5:59 PM 07/13/2017 3:18 PM Thi s order reflects the patients wishes and were consensually agreed upon. Question Answer Comments Discussion of Advance Directives occurred with: Patient/Family Does the patient have a Living Will? Yes, not currently available Does the patient have Health Care Power of Pit Steward? No Full Code 08/23/2013 8:39 AM 08/24/2013 2:49 PM This order reflects the patients wishes and were consensually agreed upon. Full Code 08/02/2013 7:49 PM 08/06/2013 12:55 AM Th is order reflects the patients wishes and were consensually agreed upon. Question Answer Comments Discussion of Advance Directives occurred with: Patient/Family Care Teams Cyber Systems Engineer Relationship Specialty Start Date End Date Sam Resendez MD [address] [place] [place], [place] [id number] PCP - General 04/07/1996 documented as of this encounter
--- OUTSIDE RECORDS SUMMARY | 2023-07-11 10:13 | External Medical Summary | Summary of Care ---
Author Name Unknown Organization [facility] Address [address] [place] [address] Phone [phone] Care Team Providers Care Hot Patcher Name Role Phone Terry Resendez MD Primary Care Provider [phone] Reason for Visit * Reason Onset Date Comments Test Results 02/13/2023 Encounter Details Date Type Department Care Team Description 02/13/2023 Telephone Cardiology, [facility] [address] [place] [address] Terry Garcia, PA-C [address] [place] [address] Test Results Allergies Active Allergy Reactions Severity Noted Date Comments Ciprofloxacin Hives 09/01/2017 Statins 11/15/2020 All statins Simvastatin 05/07/2006 Severe myalgia's documented as of this encounter (statuses as of 02/13/2023) Medications Medication Sig Dispensed Refills Start Date End Date Status ASPIRIN EC 81 MG PO TBECIndications:Coron johan atherosclerosis of [place] coronary artery Take one pill daily 100 [...] 45 Capsule 3 06/03/2022 Active Spacer/Aero-Holding Chambers DeviceIndications: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 [...] Active Ajovy 225 MG/1.5ML Subcutaneous Solution Auto-injector ([employer]-vfrm) Inject 1.5 ml under the skin once [...] solution 2.5 mgIndications:COPD, severity to be determined ([facility]) 2.5 mg NEBULIZER Q4H PRN 07/05/2019 Active [...] occlusion 07/11/2017 10/11/2019 Lumbar compression fracture 11/14/2015 03/2 10/2015 Overview: L2 Acute chest pain 10/17/2015 06/29/2018 [...] encounter Miscellaneous Notes * Telephone Encounter - Luis Felipe Peters LPN - 02/13/2023 3:24 PM EDT Sent patient a [employer] message to make aware. ----- Message from Terry Garcia PA-C sent at 02/13/2023 3:16 PM EDT ----- February 13, 2023 TTE Interpretation Summary (as per Dr. Brito): The qualitative LV ejection fraction is 55-59% (normal). The LV wall thickness is mildly increased (concentric). The left ventricular wallmotion is normal. Mild aortic valve regurgitation is present. Mild mitral regurgitation is present. Echocardiogram looks OK. Normal heart function. Only mild aortic and mitral regurgitation. documented in this encounter Plan of Treatment Upcoming Encounters Date Type Specialty Care Team Description 04/17/2023 Office Visit Family Medicine Terry Resendez MD [address] [place] [address] 04/20/2023 Office Visit Neurology Elsie Capone MD [address] [place] [address] 05/07/2023 Hospital Encounter Surgery Dat Narayanna MD [address] [place] [address] 05/07/2023 Surgery Surgery Dat Narayanan MD [address] [place] [address] COLONOSCOPY FLEXIBLE PROXIMAL DIAGNOSTIC 08/12/2023 Office Visit Cardiology Terry Garcia PA-C [address] [place] [address] Scheduled Procedures Name Priority Associated Diagnoses Date/Ti me COLONOSCOPY FLEXIBLE PROXIMAL DIAGNOSTIC History of colonic polyps 05/07/2023 1:46 PM EDT Health Maintenance Due Date Last Done Comments DISCUSS TOBACCO CESSATION (REFER TO SMARTSET #6287) 1955 COVID-19 Vaccine (#1) 04/05/1955 Alpha-1 Antitrypsin [...] D LEVEL ONCE IN A LIFETIME-USE SMARTSET# [id number] Completed 12/18/2015, 02/09/2015, 06/29/2014, Additional history exists LUNG CANCER SCREENING - USE SMARTSET 40602 Completed 06/20/2019, 07/25/2017, 07/11/2017, Additional history exists [...] this encounter Medical Devices Implanted Type Area Copy Chief Device Identifier Shelf Expiration Date Model / Serial / Lot Stent Carotid 8-6x30 [id number] - [id number] Implanted:Qty: 1 on 08/23/2013 at [place] [facility] [place] Right: Carotid [employer] [facility] : VASCULAR DEVICES 02/21/2016 [id number] / / [id number] documented as of this encounter Advance Directives [...] the patient have Health Care Power of Blocker Polishing? No Code Status History Code Status Date Activated Date Inactivated Comments Full Code 07/10/2017 5:59 PM 07/13/2017 3:18 PM Thi s order reflects the patients wishes and were consensually agreed upon. Question Answer Comments Discussion of Advance Directives occurred with: Patient/Family Does the patient have a Living Will? Yes, not currently available Does the patient have Health Care Power of Blocker Polishing? No Full Code 08/23/2013 8:39 AM 08/24/2013 2:49 PM This order reflects the patients wishes and were consensually agreed upon. Full Code 08/02/2013 7:49 PM 08/06/2013 12:55 AM Th is order reflects the patients wishes and were consensually agreed upon. Question Answer Comments Discussion of Advance Directives occurred with: Patient/Family Care Teams Hot Patcher Relationship Specialty Start Date End Date Terry Resendez MD [address] [place] [address], [place] [phone] PCP - General 04/07/1996 documented as of this encounter
--- OUTSIDE RECORDS SUMMARY | 2023-07-11 10:13 | External Medical Summary | Summary of Care ---
Author Name Unknown Organization [facility] [address] [facility] [address] Phone [phone] Care Team Providers Care Document Imaging Specialist Name Role Phone Terry Resendez MD Primary Care Provider [phone] Reason for Visit * Reason Onset Date Comments Advice 02/23/2023 Pre Cert/Prior Auth 02/23/2023 Precert In Process 02/23/2023 [facility] [place] [facility] Precert Approved 02/23/2023 PRALUENT Encounter Details Date Type Department Care Team Description 02/23/2023 Telephone Cardiology, [facility] [address] [place] [address] Patel Escamilla, DO [address] [place] [address] Advice; Pre Cert/Prior Auth; Precert In Pr... Allergies Active Allergy Reactions Severity Noted Date Comments Ciprofloxacin Hives 09/01/2017 Statins 11/15/2020 All statins Simvastatin 05/07/2006 Severe myalgia's documented as of this encounter (statuses as of 03/03/2023) Medications Medication Sig Dispensed Refills Start Date End Date Status ASPIRIN EC 81 MG PO TBECIndications:Esther nary atherosclerosis of [place] coronary artery Take one pill daily 100 [...] Active Ajovy 225 MG/1.5ML Subcutaneous Solution Auto-injector ([employer]-vfrm) Inject 1.5 ml under the skin once [...] as of this encounter (statuses as of 03/03/2023) Active Problems Problem Noted Date Hemiplegia and [...] as of this encounter (statuses as of 03/03/2023) Resolved Problems Problem Noted Date Resolved Date [...] as of this encounter (statuses as of 03/03/2023) Immunizations Name Administration Dates Next Due Pneumococcal [...] Miscellaneous Notes * Telephone Encounter - Jenna Gan RPh - 02/27/2023 7:40 AM EDT PCSK-9 Inhibitor [...] mg/dL Route referral message to CARDIOLOGY PHARMACIST [place] [[id number]]. Please submit to BOTH primary insurance and [...] Terry Garcia Route to Cardiology Pharmacist Pool [id number]. *Do not send prescription at this time. [...] due to insurance coverage. Last renewal in [facility] 03/21/2020. * Telephone Encounter - Terry [...] [facility] ([facility]) (formerly Telepharmacy) [address] [place] [address] documented in this encounter Plan of Treatment Upcoming Encounters Date Type Specialty Care Team Description 04/17/2023 Office Visit Family Medicine Terry Resendez MD [address] [place] [address] 04/20/2023 Office Visit Neurology Elsie Capone MD [address] [place] [address] 05/07/2023 Hospital Encounter Surgery Dat Narayanan MD [address] [place] [address] 05/07/2023 Surgery Surgery Dat Narayanan MD [address] [place] [address] COLONOSCOPY FLEXIBLE PROXIMAL DIAGNOSTIC 08/12/2023 Office Visit Cardiology Terry Garcia PA-C [address] [place] [address] Scheduled Procedures Name Priority Associated Diagnoses Date/Ti me COLONOSCOPY FLEXIBLE PROXIMAL DIAGNOSTIC History of colonic polyps 05/07/2023 1:44 PM EDT Health Maintenance Due Date Last Done Comments DISCUSS TOBACCO CESSATION (REFER TO SMARTSET #3649) 1955 COVID-19 Vaccine (#1) 04/05/1955 Alpha-1 Antitrypsin [...] D LEVEL ONCE IN A LIFETIME-USE SMARTSET# [id number] Completed 12/18/2015, 02/09/2015, 06/29/2014, Additional history exists LUNG CANCER SCREENING - USE SMARTSET 43650 Completed 06/20/2019, 07/25/2017, 07/11/2017, Additional history exists [...] this encounter Medical Devices Implanted Type Area Door Core Assembler Device Identifier Shelf Expiration Date Model / Serial / Lot Stent Carotid 8-6x30 [id number] - [id number] Implanted:[place] 1 [place] 08/23/2013 [place] [facility] [place] Carotid [facility] : VASCULAR DEVICES 02/21/2016 [id number] / / [id number] documented as of this encounter Advance Directives [...] the patient have Health Care Power of Major Gifts Director? No Code Status History Code Status Date Activated Date Inactivated Comments Full Code 07/10/2017 5:59 PM 07/13/2017 3:18 PM Thi s order reflects the patients wishes and were consensually agreed upon. Question Answer Comments Discussion of Advance Directives occurred with: Patient/Family Does the patient have a Living Will? Yes, not currently available Does the patient have Health Care Power of Major Gifts Director? No Full Code 08/23/2013 8:39 AM 08/24/2013 2:49 PM This order reflects the patients wishes and were consensually agreed upon. Full Code 08/02/2013 7:49 PM 08/06/2013 12:55 AM Th is order reflects the patients wishes and were consensually agreed upon. Question Answer Comments Discussion of Advance Directives occurred with: Patient/Family Care Teams Document Imaging Specialist Relationship Specialty Start Date End Date Terry Resendez MD [address] [place] [address] PCP - General 04/07/1996 documented as of this encounter
--- OUTSIDE RECORDS SUMMARY | 2023-07-11 10:13 | External Medical Summary | Summary of Care ---
Author Name Unknown Organization [facility] [address] [facility] [facility] [address] Phone [phone] Care Team Providers Care Sports Information Director Name Role Phone Terry Resendez MD Primary Care Provider [phone] Reason for Visit * Reason Onset Date Comments Advice 02/23/2023 Pre Cert/Prior Auth 02/23/2023 Precert In Process 02/23/2023 7 [place] [facility] PRALUENT Precert Approved 02/23/2023 PRALUENT Encounter Details Date Type Department Care Team Description 02/23/2023 Telephone Cardiology, [facility] [address] [place] [address] Patel Escamilla, DO [address] [place] [address] Advice; Pre Cert/Prior Auth; Precert In Pr... Allergies Active Allergy Reactions Severity Noted Date Comments Ciprofloxacin Hives 09/01/2017 Statins 11/15/2020 All statins Simvastatin 05/07/2006 Severe myalgia's documented as of this encounter (statuses as of 03/03/2023) Medications Medication Sig Dispensed Refills Start Date End Date Status ASPIRIN EC 81 MG PO TBECIndications:Esther nary atherosclerosis of [place] coronary artery Take one pill daily 100 [...] Subcutaneous Solution Auto-injector (Alirocumab) Inject 75 mg under the skin every 14 days. 6 [...] as of this encounter Miscellaneous Notes * Addendum Note - Alok Gan RPh - 03/03/2023 3:46 PM EDTAddended by: ALOK GAN on: 03/03/2023 03:46 PM Modules accepted: Orders * Telephone Encounter - Alok Gan RP - 03/03/2023 3:44 PM EDT New or re-auth: Re-authorization Approved/Denied: Approved Drug Name and Formulation: PRALUENT 75 MG ML How Prescribed(directions/sig): INJECT EVERY 14 DAYS Day Supply: 2 PER Did you receive insurance information from outside the chart? No, received insurance information within the chart Valid auth start date: 08/24/2022 Valid auth end date: 02/27/2024 Rx Insurance Info: [employer] Rx Benefits Verified through/on date: Z-good 02/2023 Test claim $30 Rx sent to [facility] myG sent to patient to make aware Alok Gan Pharm D Clinical Pharmacist Cardiology 03/03/2023,3:45 PM * Telephone Encounter - Alok Gan RP - 02/27/2023 7:40 AM EDT PCSK-9 Inhibitor [...] mg/dL Route referral message to CARDIOLOGY PHARMACIST POOL [[phone]]. Please submit to BOTH primary insurance and secondary insurance (ex PACE/PACENET) if applicable. * Telephone Encounter - Alok Gan RPh - 02/27/2023 7:37 AM EDT [...] Terry Garcia Route to Cardiology Pharmacist Pool [phone]. *Do not send prescription at this time. Pre-cert will be completed prior to sending prescription* * Telephone Encounter - Terry Garcia PA-C - 02/26/2023 4:47 PM EDT Yes, probably just needs prior authorization/medication Terry Garcia PA-C Department of Cardiology * Telephone Encounter - Alok Gan RPh - 02/26/2023 8:09 AM EDT Terry, Would you like me to help get this patient on PCSK9? If so, do you think he needs an appt to re-educate him on how to inject? Or does he just need the prior auth completed and medication ordered? Alok Gan Pharm D Clinical Pharmacist Cardiology 02/26/2023,8:10 AM * Telephone Encounter - Loren Blackwell CMA - 02/23/2023 4:48 PM EDT Spoke with patient's , Maria Dolores. Reports that patient has not been on Praluent for years due to insurance coverage. Last renewal in Epic 03/21/2020. * Telephone Encounter - Terry Garcia [...] [facility] [address] [facility] [place] [address] documented in this encounter Plan of Treatment Upcoming Encounters Date Type Specialty Care Team Description 04/17/2023 Office Visit Family Medicine Terry Resendez MD [address] [place] [address] 04/20/2023 Office Visit Neurology Elsie Capone MD [address] [place] [address] 05/07/2023 Hospital Encounter Surgery Dat Narayanan MD [address] [place] [address] 05/07/2023 Surgery Surgery Dat Narayanan MD [address] [place] [address] COLONOSCOPY FLEXIBLE PROXIMAL DIAGNOSTIC 08/12/2023 Office Visit Cardiology Terry Garcia, SHAR[place]-C [address] [place] [address] Scheduled Procedures Name Priority Associated Diagnoses Date/Ti [...] D LEVEL ONCE IN A LIFETIME-USE SMARTSET# 63369 Completed 12/18/2015, 02/09/2015, 06/29/2014, Additional history exists LUNG CANCER SCREENING - USE SMARTSET 75391 Completed 06/20/2019, 07/25/2017, 07/11/2017, Additional history exists [...] this encounter Medical Devices Implanted Type Area Transaction Manager Device Identifier Shelf Expiration Date Model / Serial / Lot Stent Carotid 8-6x30 [id number] - [id number] Implanted:Qty: 1 on 08/23/2013 at [place] [facility] [place]: Carotid [facility] : VASCULAR DEVICES 02/21/2016 [id number] / / [id number] documented as of this encounter Advance Directives [...] the patient have Health Care Power of Weaving Instructor? No Code Status History Code Status Date Activated Date Inactivated Comments Full Code 07/10/2017 5:59 PM 07/13/2017 3:18 PM Thi s order reflects the patients wishes and were consensually agreed upon. Question Answer Comments Discussion of Advance Directives occurred with: Patient/Family Does the patient have a Living Will? Yes, not currently available Does the patient have Health Care Power of Weaving Instructor? No Full Code 08/23/2013 8:39 AM 08/24/2013 2:49 PM This order reflects the patients wishes and were consensually agreed upon. Full Code 08/02/2013 7:49 PM 08/06/2013 12:55 AM Th is order reflects the patients wishes and were consensually agreed upon. Question Answer Comments Discussion of Advance Directives occurred with: Patient/Family Care Teams Sports Information Director Relationship Specialty Start Date End Date Terry Resendez MD [address] [place], [place] [id number] PCP - General 04/07/1996 documented as of this encounter
--- OUTSIDE RECORDS SUMMARY | 2023-07-11 10:13 | External Medical Summary | Summary of Care ---
Author Name Unknown Organization [facility] Address [address] [place] [address] Phone [phone] Care Team Providers Care Brick Chimney Supervisor Name Role Phone Terry Resendez MD Primary Care Provider [phone] Encounter Details Date Type Department Care Team Description 03/03/2023 Specialty Pharmacy [facility], [address] [place] [address] Medication, [facility] Special[facility], [address] [address] Allergies Active Allergy Reactions Severity Noted Date Comments Ciprofloxacin Hives 09/01/2017 Statins 11/15/2020 All statins Simvastatin 05/07/2006 Severe myalgia's documented as of this encounter (statuses as of 03/05/2023) Medications Medication Sig Dispensed Refills Start Date End Date Status ASPIRIN EC 81 MG PO TBECIndications:Coron johan atherosclerosis of [place] coronary artery Take one pill daily 100 [...] 45 Capsule 3 06/03/2022 Active Spacer/Aero-Holding Chambers DeviceIndications: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 1 [...] (dose increase) 180 Tablet 1 01/30/2023 Active Ajovy 225 MG/1.5ML Subcutaneous Solution Auto-injector (Fremanezumab-vfrm) Inject 1.5 ml under the skin once a month 1.5 mL 5 02/02/2023 Active Lasmiditan Succinate 50 MG Oral Tablet (Reyvow) Take one at onset of migraine. 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 30 day RX 90 Tablet 0 03/02/2023 Active Praluent 75 MG/ML Subcutaneous Solution Auto-injector (Alirocumab) Inject 75 mg (1 pen) under the skin every 14 days. 6 mL 3 03/03/2023 Active Hospital, Clinic, or Other Facility Administered Medication Ordered Dose Route Frequency Start Date End Date Status albuterol sulfate (PROVENTIL) (2.5 MG/3ML) 0.083% inhalation solution 2.5 mgIndications:COPD, severity to be determined (HCC) 2.5 mg NEBULIZER Q4H PRN 07/05/2019 Active documented as of this encounter (statuses as of 03/05/2023) Active Problems Problem Noted Date Hemiplegia and [...] as of this encounter (statuses as of 03/05/2023) Resolved Problems Problem Noted Date Resolved Date [...] as of this encounter (statuses as of 03/05/2023) Immunizations Name Administration Dates Next Due Pneumococcal [...] as of this encounter Progress Notes * Radha Booker, LILY - 03/05/2023 2:14 PM EDT Spoke with pts and set up delivery to pts sons house. Address added. Prescribed medication: Medication: Praluent Shipment date: 03/10/2023 Delivery method: Specialty Mail Location Medication Delivered too? Temporary Address: [address] [place] [address] [facility] 03/05/2023,2:14 PM documented in this encounter Plan of Treatment Upcoming Encounters Date Type Specialty Care Team Description 04/17/2023 Office Visit Family Medicine Terry Resendez MD [address] [place] [address] 04/20/2023 Office Visit Neurology Elsie Capone MD [address] [place] [address] 05/07/2023 Hospital Encounter Surgery Dat Narayanan MD [address] [place] [address] 05/07/2023 Surgery Surgery Dat Narayanan MD [address] [place] [address] COLONOSCOPY FLEXIBLE PROXIMAL DIAGNOSTIC 08/12/2023 Office Visit Cardiology Terry Garcia PA-C [address] [place] [address] Scheduled Procedures Name Priority Associated Diagnoses Date/Ti [...] D LEVEL ONCE IN A LIFETIME-USE SMARTSET# [id number] Completed 12/18/2015, 02/09/2015, 06/29/2014, Additional history exists LUNG CANCER SCREENING - USE SMARTSET [id number] Completed 06/20/2019, 07/25/2017, 07/11/2017, Additional history exists [...] this encounter Medical Devices Implanted Type Area Shelf Drier Operator Device Identifier Shelf Expiration Date Model / Serial / Lot Stent Carotid 8-6x30 [id number] - [id number] Implanted:Qty: 1 on 08/23/2013 at OR [facility] [place] Right: Carotid [facility] : VASCULAR DEVICES 02/21/2016 [id number] / / [id number] documented as of this encounter Advance Directives [...] the patient have Health Care Power of Vault Keeper? No Code Status History Code Status Date Activated Date Inactivated Comments Full Code 07/10/2017 5:59 PM 07/13/2017 3:18 PM Thi s order reflects the patients wishes and were consensually agreed upon. Question Answer Comments Discussion of Advance Directives occurred with: Patient/Family Does the patient have a Living Will? Yes, not currently available Does the patient have Health Care Power of Vault Keeper? No Full Code 08/23/2013 8:39 AM 08/24/2013 2:49 PM This order reflects the patients wishes and were consensually agreed upon. Full Code 08/02/2013 7:49 PM 08/06/2013 12:55 AM Th is order reflects the patients wishes and were consensually agreed upon. Question Answer Comments Discussion of Advance Directives occurred with: Patient/Family Care Teams Brick Chimney Supervisor Relationship Specialty Start Date End Date Terry Resendez MD [address] [place] [address] PCP - General 04/07/1996 documented as of this encounter
--- OUTSIDE RECORDS SUMMARY | 2023-07-11 10:13 | External Medical Summary | Summary of Care ---
Author Name Unknown Organization [facility] Address [address] [facility] [address] Phone [phone] Care Team Providers Care Datastage Consultant Name Role Phone Terry Resendez MD Primary Care Provider [phone] Reason for Visit * Reason Onset Date Comments Advice 02/23/2023 Pre Cert/Prior Auth 02/23/2023 Encounter Details Date Type Department Care Team Description 02/23/2023 Telephone Cardiology, [facility] [address] [place] [address] Patel Escamilla, [address] [place] [address] Advice; Pre Cert/Prior Auth Allergies Active Allergy Reactions Severity Noted Date Comments Ciprofloxacin Hives 09/01/2017 Statins 11/15/2020 All statins Simvastatin 05/07/2006 Severe myalgia's documented as of this encounter (statuses as of 02/27/2023) Medications Medication Sig Dispensed Refills Start Date End Date Status ASPIRIN EC 81 MG PO TBECIndications:Coron johan atherosclerosis of [place] coronary artery Take one pill daily 100 [...] 45 Capsule 3 06/03/2022 Active Spacer/Aero-Holding Chambers DeviceIndications:NON DESTRUCTIVE TESTER D exacerbation (HCC) Use with inhaler. 1 [...] Active Ajovy 225 MG/1.5ML Subcutaneous Solution Auto-injector (Keen Impressions-rm) Inject 1.5 ml under the skin once [...] 2.5 mgIndications:COPD, severity to be determined ([facility]) 2.5 mg NEBULIZER Q4H PRN 07/05/2019 Active [...] * Telephone Encounter - Jenna Gan, [facility] - 02/27/2023 7:40 AM EDT PCSK-9 Inhibitor [...] mg/dL Route referral message to CARDIOLOGY PHARMACIST GRAVEL SWITCH [[id number]]. Please submit to BOTH primary insurance and [...] Terry Garcia Route to Cardiology Pharmacist Pool [phone]. *Do not send prescription at this time. [...] due to insurance coverage. Last renewal in [facility] 03/21/2020. * Telephone Encounter - Terry [...] [facility] ([facility]) [address] [place] [address] documented in this encounter Plan of Treatment Upcoming Encounters Date Type Specialty Care Team Description 04/17/2023 Office Visit Family Medicine Terry Resendez MD [address] [place] [address] 04/20/2023 Office Visit Neurology Elsie Capone MD [address] [place] [address] 05/07/2023 Hospital Encounter Surgery Dat Narayanan MD [address] [place] [address] 05/07/2023 Surgery Surgery Dat Narayanan MD [address] [place] [address] COLONOSCOPY FLEXIBLE PROXIMAL DIAGNOSTIC 08/12/2023 Office Visit Cardiology Terry Garcia PA-C [address] [place] [address] Scheduled Procedures Name Priority Associated Diagnoses Date/Ti me COLONOSCOPY FLEXIBLE PROXIMAL DIAGNOSTIC History of colonic polyps 05/07/2023 1:44 PM EDT Health Maintenance Due Date Last Done Comments DISCUSS TOBACCO CESSATION (REFER TO SMARTSET #3801) 1955 COVID-19 Vaccine (#1) 04[birth year]05/1956 Alpha-1 Antitrypsin [...] D LEVEL ONCE IN A LIFETIME-USE SMARTSET# [id number] Completed 12/18/2015, 02/09/2015, 06/29/2014, Additional history exists LUNG CANCER SCREENING - USE SMARTSET 50885 Completed 06/20/2019, 07/25/2017, 07/11/2017, Additional history exists [...] this encounter Medical Devices Implanted Type Area Toll Operator Device Identifier Shelf Expiration Date Model / Serial / Lot Stent Carotid 8-6x30 [id number] - [id number] Implanted:Qty: 1 on 08[place]23[place] [facility] [place] Carotid [facility] VASCULAR DEVICES 02/21/2016 [id number] / / [id number] documented as of this encounter Advance Directives [...] the patient have Health Care Power of Interstate Planner? No Code Status History Code Status Date Activated Date Inactivated Comments Full Code 07/10/2017 5:59 PM 07/13/2017 3:18 PM Thi s order reflects the patients wishes and were consensually agreed upon. Question Answer Comments Discussion of Advance Directives occurred with: Patient/Family Does the patient have a Living Will? Yes, not currently available Does the patient have Health Care Power of Interstate Planner? No Full Code 08/23/2013 8:39 AM 08/24/2013 2:49 PM This order reflects the patients wishes and were consensually agreed upon. Full Code 08/02/2013 7:49 PM 08/06/2013 12:55 AM Th is order reflects the patients wishes and were consensually agreed upon. Question Answer Comments Discussion of Advance Directives occurred with: Patient/Family Care Teams Datastage Consultant Relationship Specialty Start Date End Date Terry Resendez MD [address] [place] [address] PCP - General 04/07/1996 documented as of this encounter
--- OUTSIDE RECORDS SUMMARY | 2023-07-11 10:13 | External Medical Summary | Summary of Care ---
Author Name Unknown Organization [facility] Address [address] [place] [address] Phone [phone] Care Team Providers Care Gold Cutter Name Role Phone Terry Resendez MD Primary Care Provider [phone] Encounter Details Date Type Department Care Team Description 02/13/2023 Nurse Only Ancillary Department, [facility] [address] [place] [address] [place], Nurse [address] [place] [address] Arrived Allergies Active Allergy Reactions Severity Noted Date Comments Ciprofloxacin Hives 09/01/2017 Statins 11/15/2020 All statins Simvastatin 05/07/2006 Severe myalgia's documented as of this encounter (statuses as of 02/13/2023) Medications Medication Sig Dispensed Refills Start Date End Date Status ASPIRIN EC 81 MG PO TBECIndications:Coron johan atherosclerosis of [place] coronary artery Take one pill daily 100 [...] 45 Capsule 3 06/03/2022 Active Spacer/Aero-Holding Chambers 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 1 [...] Active Ajovy 225 MG/1.5ML Subcutaneous Solution Auto-injector ([employer]-vfrm) Inject 1.5 ml under the skin once [...] order. Pt voiced understanding and tolerated well. [id number] documented in this encounter Plan of Treatment Upcoming Encounters Date Type Specialty Care Team Description 04/17/2023 Office Visit Family Medicine Terry Resendez MD [address] [place] [address] 04/20/2023 Office Visit Neurology Elsie Capone MD [address] [place] [address] 05/07/2023 Hospital Encounter Surgery Dat Narayanan MD [address] [place] [address] 05/07/2023 Surgery Surgery Dat Narayanan MD [address] [place] [address] COLONOSCOPY FLEXIBLE PROXIMAL DIAGNOSTIC 08/12/2023 Office Visit Cardiology Terry Garcia, PA-C [address] [place] [address] Scheduled Procedures Name Priority Associated Diagnoses Date/Ti [...] D LEVEL ONCE IN A LIFETIME-USE SMARTSET# [id number] Completed 12/18/2015, 02/09/2015, 06/29/2014, Additional history exists LUNG CANCER SCREENING - USE SMARTSET 68616 Completed 06/20/2019, 07/25/2017, 07/11/2017, Additional history exists [...] this encounter Medical Devices Implanted Type Area Senior Media Director Device Identifier Shelf Expiration Date Model / Serial / Lot Stent Carotid 8-6x30 [id number] - [id number] Implanted:Qty: 1 on 08/23/2013 at [place] [facility] [place] Right: Carotid [facility] : VASCULAR DEVICES 02/21/2016 [id number] / / [id number] documented as of this encounter Visit Diagnoses [...] the patient have Health Care Power of Stamping Die Try Out Worker? No Code Status History Code Status Date Activated Date Inactivated Comments Full Code 07/10/2017 5:59 PM 07/13/2017 3:18 PM Thi s order reflects the patients wishes and were consensually agreed upon. Question Answer Comments Discussion of Advance Directives occurred with: Patient/Family Does the patient have a Living Will? Yes, not currently available Does the patient have Health Care Power of Stamping Die Try Out Worker? No Full Code 08/23/2013 8:39 AM 08/24/2013 2:49 PM This order reflects the patients wishes and were consensually agreed upon. Full Code 08/02/2013 7:49 PM 08/06/2013 12:55 AM Th is order reflects the patients wishes and were consensually agreed upon. Question Answer Comments Discussion of Advance Directives occurred with: Patient/Family Care Teams Gold Cutter Relationship Specialty Start Date End Date Terry Resendez MD [address] [place] [address] PCP - General 04/07/1996 documented as of this encounter
--- OUTSIDE RECORDS SUMMARY | 2023-07-11 10:13 | External Medical Summary | Summary of Care ---
Author Name Unknown Organization [facility] Address [address] [place] [address] Phone [phone] Care Team Providers Care Bail Bond Agent Name Role Phone Trery Resendez MD Primary Care Provider [phone] Reason for Visit * Reason Onset Date Comments Test Results 03/05/2023 Encounter Details Date Type Department Care Team Description 03/05/2023 Telephone Cardiology, [facility] [address] [place] [address] Terry Garcia, PA-C [address] [place] [address] Test Results Allergies Active Allergy Reactions Severity Noted Date Comments Ciprofloxacin Hives 09/01/2017 Statins 11/15/2020 All statins Simvastatin 05/07/2006 Severe myalgia's documented as of this encounter (statuses as of 03/05/2023) Medications Medication Sig Dispensed Refills Start Date End Date Status ASPIRIN EC 81 MG PO TBECIndications:Coron johan atherosclerosis of [place] coronary artery Take one pill daily 100 [...] 45 Capsule 3 06/03/2022 Active Spacer/Aero-Holding Chambers DeviceIndications: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 1 [...] encounter Miscellaneous Notes * Telephone Encounter - Nery Moran CMA - 03/05/2023 2:18 PM EDT Portal message with results sent to pt. * Telephone Encounter - Nery Moran CMA - 03/05/2023 2:18 PM EDT ----- Message from Terry Garcia PA-C sent at 03/04/2023 5:58 PM EDT ----- ok documented in this encounter Plan of Treatment Upcoming Encounters Date Type Specialty Care Team Description 04/17/2023 Office Visit Family Medicine Terry Resendez MD [address] [place] [address] 04/20/2023 Office Visit Neurology Elsie Capone MD [address] [place] [address] 05/07/2023 Hospital Encounter Surgery Dat Narayanan MD [address] [place] [address] 05/07/2023 Surgery Surgery Dat Narayanan MD [address] [place] [address] COLONOSCOPY FLEXIBLE PROXIMAL DIAGNOSTIC 08/12/2023 Office Visit Cardiology Terry Garcia PA-C [address] [place] [address] Scheduled Procedures Name Priority Associated Diagnoses Date/Ti me COLONOSCOPY FLEXIBLE PROXIMAL DIAGNOSTIC History of colonic polyps 05/07/2023 1:44 PM EDT Health Maintenance Due Date Last Done Comments DISCUSS TOBACCO CESSATION (REFER TO SMARTSET #7611) 1955 COVID-19 Vaccine (#1) 04[birth year]05/1956 Alpha-1 Antitrypsin [...] D LEVEL ONCE IN A LIFETIME-USE SMARTSET# 28546 Completed 12/18/2015, 02/09/2015, 06/29/2014, Additional history exists LUNG CANCER SCREENING - USE SMARTSET 90166 Completed 06/20/2019, 07/25/2017, 07/11/2017, Additional history exists [...] this encounter Medical Devices Implanted Type Area Cdl Bulk Driver Device Identifier Shelf Expiration Date Model / Serial / Lot Stent Carotid 8-6x30 [id number] - [id number] Implanted:Qty: 1 on 08/23/2013 at [place] [facility] [place] Right: Carotid [facility] VASCULAR DEVICES 02/21/2016 [id number] / / [id number] documented as of this encounter Advance Directives [...] patient have Health Care Power of Automatic Beading Lathe Operator? No Code Status History Code Status Date Activated Date Inactivated Comments Full Code 07/10/2017 5:59 PM 07/13/2017 3:18 PM Thi s order reflects the patients wishes and were consensually agreed upon. Question Answer Comments Discussion of Advance Directives occurred with: Patient/Family Does the patient have a Living Will? Yes, not currently available Does the patient have Health Care Power of Automatic Beading Lathe Operator? No Full Code 08/23/2013 8:39 AM 08/24/2013 2:49 PM This order reflects the patients wishes and were consensually agreed upon. Full Code 08/02/2013 7:49 PM 08/06/2013 12:55 AM Th is order reflects the patients wishes and were consensually agreed upon. Question Answer Comments Discussion of Advance Directives occurred with: Patient/Family Care Teams Bail Bond Agent Relationship Specialty Start Date End Date Terry Resendez MD [address] [place] [address] PCP - General 04/07/1996 documented as of this encounter
--- OUTSIDE RECORDS SUMMARY | 2023-07-11 10:14 | External Medical Summary | Summary of Care ---
Author Name Unknown Organization [facility] Address [address] [place] [address] Phone [phone] Care Team Providers Care Jukebox Checker Name Role Phone Terry Resendez MD Primary Care Provider [phone] Reason for Visit * Reason Comments Return Neuro Encounter Details Date Type Department Care Team Description 01/29/2023 Office Visit Neurology [facility] Yolande [place] [address] [facility] [place] [address] Elsie Capone MD [address] [facility] [address] Asymptomatic stenosis of right carotid artery*; Seizure, grand mal (HCC); Hyponatremia Allergies Active Allergy Reactions Severity Noted Date Comments Ciprofloxacin Hives 09/01/2017 Statins 11/15/2020 All statins Simvastatin 05/07/2006 Severe myalgia's documented as of this encounter (statuses as of 01/29/2023) Medications Medication Sig Dispensed Refills Start Date End Date Status ASPIRIN EC 81 MG PO TBECIndications:Coron johan atherosclerosis of [place] coronary artery Take one pill daily 100 [...] day . 45 Capsule 3 06/03/2022 Active Omeprazole 20 MG Oral Capsule Delayed Release (PriLOSEC) Take by mouth 1 Capsule in the morning. 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 1 [...] MOUTH DAILY 90 Tablet 3 11/27/2022 Active levETIRAcetam 500 MG Oral Tablet (Keppra) 1/2 twice a day 90 Tablet 1 12/10/2022 Active Ajovy 225 MG/1.5ML Subcutaneous Solution Auto-injector (Fremanezumab-vfrm) Inject 1.5 ml under the skin once a month 1.5 mL 5 12/10/2022 Active Additional Information Patient not taking.Reported on 12/18/2022 Metoprolol Tartrate 25 MG Oral Tablet (Lopressor) Take 1 Tablet by mouth in the morning. 0 11/18/2022 Active HYDROcodone-Acetamino phen 5-325 MG Oral TabletIndications:Chr onic bilateral low back pain with right-sided sciatica Take 1 Tablet by mouth 3 times a day as needed for Pain, Mild or Pain, Moderate. 30 day RX 90 Tablet 0 01/02/2023 Active Hospital, Clinic, or Other Facility Administered Medication Ordered Dose Route Frequency Start Date End Date Status albuterol sulfate (PROVENTIL) (2.5 MG/3ML) 0.083% inhalation solution 2.5 mgIndications:COPD, severity to be determined (HCC) 2.5 mg NEBULIZER Q4H PRN 07/05/2019 Active documented as of this encounter (statuses as of 01/29/2023) Active Problems Problem Noted Date Hemiplegia and [...] as of this encounter (statuses as of 01/29/2023) Resolved Problems Problem Noted Date Resolved Date [...] as of this encounter (statuses as of 01/29/2023) Immunizations Name Administration Dates Next Due Pneumococcal [...] Sign Reading Time Taken Comments Blood Pressure 128/70 01/29/2023 12:52 PM EDT Pulse 56 01/29/2023 12:52 PM EDT Temperature 36.2 C (97.1 F) 01/29/2023 1 2:52 PM EDT Respiratory Rate 16 01/29/2023 12:5 2 PM EDT Oxygen Saturation - - Inhaled Oxygen Concentration - - Weight 97.9 kg (215 lb 14.4 oz) 023 12:52 PM EDT Height - - Body Mass Index 30.11 04/15/2022 2:02 PM EDT documented in this encounter Functional [...] of this encounter Progress Notes * Elsie Capone MD - 01/29/2023 1:56 PM EDT Images from the original note were not included. CLINIC NOTES Neurology [facility] [place] [address] [place] [address] Patel León : 1955 NEUROLOGY OUTPATIENT NOTE 01/29/2023 HISTORY: The patient is referred for consultation by Dr. Resendez, who will be receiving a copy of this note. Patient comes today in history right carotid carotid occlusion. History of presumed seizure. Recent relative unresponsive episode which prompted a repeat vascular workup which showed no new infarction and no change in the previously known vascular stenosis. He has had an echo and a Zio ordered for other reasons but I think they remain appropriate MRI the brain which I have reviewed images and report are as follows Details Reading Physician Reading Date Result Priority Tomas Thomas MD [phone] 12/24/2022 Addenda ADDENDUM: Upon comparison with outside [...] x 20 min TECHNIQUE MRA of the flandre[place] of [place] was performed without the use of intravenous contrast using 3D kyrp-re-rlbjrx sequence. 3D reformatted images were reviewed. COMPARISON [...] intracranial aneurysm. 4. No acute intracranial abnormality. Of the patient fell about a month ago he was taking something of the back of the car and fell backwards lost consciousness was somewhat confused thereafter. Once the hospital presumably had a CT which was noncontributory. Two weeks later felt unwell went to lay down his saw him looking around his bedroom that he laid down inch he had a generalized seizure for several minutes was postictal the reafter. He was taken to the hospital serum sodium was 129 white count was normal he had not takingKeppra for a day and half as he had run out of it his had not yet picked is prescription up. He has not had any recurrent events since that time. In general he does not excessively drink water. He does drink alcohol on and on the day of the fall he had been drinking alcohol Past Medical History: Diagnosis Date Acute ischemic VBA thalamic stroke, left ([facility]) 08/04/2013 Benign neoplasm of colon 06/05/09 adenomatous/repeat colonoscopy in 1 yr Carotid artery stenosis CLASSICAL MIGRAINE WITHOU MENTION OF INTRACTABLE MIGRAINE 01/14/2002 Compression fracture of L2 lumbar vertebra ([facility]) 10/16/2015 Coronary atherosclerosis of [place] coronary artery 2005 total occ RCA// 40% [...] hemoglobin A1c goal of less than 7.0% ([facility]) E11.9 COPD, severity to be determined ([facility]) J44.9 MEDICATION USE AGREEMENT [id number] Senile osteoporosis M81.0 Aortic dissection, thoracic ([facility]) I71.019 Urinary retention R33.9 History of ischemic vertebrobasilar artery thalamic stroke Z86.73 Coronary artery disease with exertional angina (HCC) I25.118 Hemiplegia, unspecified affecting right dominant side (HCC) G81.91 Chronic bilateral low back pain with right-sided sciatica M54.41, G89.29 Spondylosis, lumbar, with myelopathy M47.16 DDD (degenerative disc disease), lumbar M51.36 Other specified peripheral vascular diseases (HCC) I73.89 Hemiplga following cerebral infrc aff right dominant side (HCC) I69.351 Diabetes mellitus with peripheral angiopathy (HCC) E11.51 Acute ischemic stroke (HCC) I63.9 Bradycardia R00.1 Hemiplegia and hemiparesis following unspecified cerebrovascular disease affecting right dominant side (HCC) I69.951 Recurrent major depressive disorder (HCC) F33.9 Past Surgical History: Procedure Laterality Date ANESTHESIA PROCEDURE NEC 08/05/2013 ANESTHESIA FOR PACU PROCEDURE OTHER [place] [facility] [place] [facility] CARDIAC CATH-CARDIOLOGY ONLY 2006 COLONOSCOPY W/ LESION REMOVAL, SNARE 06/05/09 done one 12mm polyp in distal sigmoid,,one 3mm in transverse colon, 5mm polyp in proximal sigmoid, diverticulosis /adenomatous/repeat colonoscopy in 1 yr COLONOSCOPY, DIAGNOSTIC (RECTUM) 01/15/2016 hyperplatic & serrated adenomatous polyp, diverticulosis, repeat 3 yrs/[facility] COLONOSCOPY, DIAGNOSTIC (RECTUM) N/A 04/05/2019 poor prep/diverticulosis sigmoid colon/biopsies show benign polyp/recall 3 years/COLONOSCOPY FLEXIBLE PROXIMAL DIAGNOSTIC performed by Dat Narayanan MD at OR [facility] CORONARY ANGIOGRAPHY W/LEFT HEART CATH 05/25/2017 CORONARY ANGIOGRAPHY W/LEFT HEART CATH performed by Martha Alford MD at CARDIAC LABS [facility] IR VERTEBRAL AUGMENTATION TECH ONLY 2015 L2/ Dr Barcenas MISCELLANEOUS ORDER left lateral elbow ligament repair MISCELLANEOUS ORDER ([facility] ONLY) 09/27 right rotator cuff repair/ José OTHER 09/30 left rotator cuff repair OTHER 2007 bilateral hip replacement (Dr Benavidez) REMOVAL OF TONSILS, AGE 12+ TOTAL HIP REPLACEMENT & PROSTHESIS both hips, AVN TRANSCATH STENT-CAROTID ARTERY, W/EMBOL PROTECTION 08/23/2013 right carotid stent with cerebral angiogram. 08/23/13 Dr. Chen. [facility] OR TRANSCATH STENT-CAROTID ARTERY, W/EMBOL PROTECTION Xact Carotid Stent 08/05- safe up to 3T Social History Socioeconomic History Marital status: Spouse name: Hilary Number of children: 3 Years of education: 12 Highest education level: Not on file Occupational History Employer: [employer] Comment: [employer] Tobacco Use Smoking status: Every Day Packs/day: [...] for Pain. As needed 30 Tab 0 cyclobenzaprine (FLEXERIL) 10 MG Tablet Take 1 Tab by mouth 3 times a day as needed for Muscle spasms. (Patient not taking: Reported on 11/17/2022) 20 Tab 1 Ondansetron HCl 4 MG Oral Tablet (Zofran) TAKE ONE TABLET BY MOUTH EVERY 6 HOURS NEEDED FOR NAUSEA. 30 Tab 0 Wujauwioqwapm-Ayefenicx-ARBQ 65-100-325 MG Oral Capsule Two at onset of migraine may repeat 1 every 1 hour maximum of 4 in 24 hours. Compounded formulation 30 Capsule 5 Nitroglycerin 0.4 MG Sublingual Tablet Sublingual (Nitrostat) Place under the tongue 1 Tablet every 5 minutes as needed for Pain, Chest. up to 3 doses in 15 minutes 25 Tablet 11 Tamsulosin HCl 0.4 MG Oral Capsule (Flomax) Take by mouth 1 Capsule every other day . 45 Capsule 3 Omeprazole 20 MG Oral Capsule Delayed Release (PriLOSEC) Take by mouth 1 Capsule in the morning. 90 Capsule 3 Spacer/Aero-Holding Chambers Device Use with inhaler. 1 Each 0 ProAir HFA 108 (90 Base) MCG/ACT Inhalation Aerosol Solution Inhale 2 Puffs by mouth every 4 hours as needed for Wheezing. 18 g 1 Isosorbide Mononitrate ER 60 MG Oral Tablet Extended Release 24 Hour (Imdur) TAKE ONE TABLET BYMOUTH DAILY 90 Tablet 3 DULoxetine HCl 30 MG Oral Capsule Delayed Release Particles (Cymbalta) 1 cap in AM and 2 caps in PM. Do not cut, crush or chew 270 Capsule 3 metFORMIN HCl ER 500 MG Oral Tablet Extended Release 24 Hour (Glucophage XR) TAKE ONE TABLET BYMOUTH EVERY DAY 90 Tablet 3 Finasteride 5 MG Oral Tablet (Proscar) Take 1 Tablet by mouth in the morning. 90 Tablet 3 Clopidogrel Bisulfate 75 MG Oral Tablet (pLAVix) TAKE 1 TABLET BY MOUTH DAILY 90 Tablet 3 levETIRAcetam 500 MG Oral Tablet (Keppra) 1/2 twice a day 90 Tablet 1 Ajovy 225 MG/1.5ML Subcutaneous Solution Auto-injector (Fetise.com-Donordonut) Inject 1.5 ml under the skin once a month (Patient not taking: Reported on 12/18/2022) 1.5 mL 5 Metoprolol Tartrate 25 MG Oral Tablet (Lopressor) Take 1 Tablet by mouth in the morning. HYDROcodone-Acetaminophen 5-325 MG Oral Tablet Take 1 Tablet by mouth 3 times a day as needed for Pain, Mild or Pain, Moderate. 30 day RX 90 Tablet 0 Current Facility-Administered Medications Medication Dose Route Frequency Provider Last Rate Last Admin albuterol sulfate (PROVENTIL) (2.5 MG/3ML) 0.083% inhalation solution 2.5 mg 2.5 mg Nebulizer Q4H PRN Joselyn Merida DO Review of patient's allergies indicates: Allergen Reactions Ciprofloxacin Hives Statins All statins Zocor [Simvastatin] Severe myalgia's REVIEW OF SYSTEMS: As above PHYSICAL EXAM: BP 128/70 | Pulse 56 | Temp 36.2 C (97.1 F) (Tympanic) | Resp 16 | Wt 97.9 kg (215 lb 14.4 oz) | BMI 30.11 kg/m | BSA 2.21 m Patient is awake alert speech and language normal affect appropriate no carotid bruits no heart murmurs heart is regular rate rhythm normal extraocular motility mild weakness of the right upper extremity gait mildly wide-based IMPRESSION: Recurrent loss of consciousness which we are currently treating as seizure. Finally a seizure has been witnessed. Doubt serum sodium of 129 is low enough to have caused seizure. Continue Keppra check level. The patient takes a low dose of Keppra the reason for the breakthrough seizurewas noncompliance I think now that we know definitively he has seizures likely I will raise the leve l of his Keppra to 500 twice daily. history of migraine. Patient has contraindications for beta blockade including diabetes. Due to hisheart disease I would be concerned about using a tricyclic. He has previously taking gabapentin in the past I believe for headache prophylaxis which was not effective. I believe a CGRP inhibitor would be safe and potentially effective for his headaches. Common side effects include constipation and muscle cramps. Will look into why the patient did not receive Ajovy Continue Lasmiditan on a PRN basis possible transient ischemic attack Consisting of preserved consciousness with inability to respond.MRI brain MRA head and neck ruled out new infarction depending on agree with additional workup including an echo Zio. At present the patient is on dual anti-platelet therapy with Plavix and aspirin will not change at present. Ongoing good control of vascular risk factors return in 4 months Elsie Capone MD 01/29/2023 1:56 PM documented in this encounter Nursing Notes * ZACHARY Arias - 01/29/2023 12:51 PM EDT Chief Complaint Patient presents with Return Neuro documented in this encounter Plan of Treatment Upcoming Encounters Date Type Specialty Care Team Description 02/02/2023 Imaging Radiology 02/13/2023 Cardiac Studies Cardiac Studies 02/13/2023 Nurse Only Ancillary Jillian Nurse [address] [place] [facility] [place] [address] 04/17/2023 Office Visit Family Medicine [facility] [address] [facility] [address] 04/20/2023 Office Visit Neurology Elsie Capone MD [address] [place] [address] 05/07/2023 Hospital Encounter Surgery Dta Narayanan MD [address] [place] [address] 05/07/2023 Surgery Surgery Dat Narayanan MD [address] [place] [address] COLONOSCOPY FLEXIBLE PROXIMAL DIAGNOSTIC 08/12/2023 Office Visit Cardiology Terry Garcia PA-C [address] [place] [address] Pending Results Name Type Priority Associated Diagnoses Date /Time LEVETIRACETAM LEVEL Lab Routine Seizure, grand mal (HCC) 01/29/2023 1:59 PM EDT BASIC METABOLIC PANEL Lab Routine Hyponatremia 01/29/2023 1:59 PM EDT Scheduled Orders Name Type Priority Associated Diagnoses Orde r Schedule VASC DUPLEX CAROTID BILAT Medical Imaging Routine Asymptomatic stenosis of right carotid artery Expected: 01/29/2023, Expires: 02/28/2025 Scheduled Procedures Name Priority Associated Diagnoses Date/Ti me COLONOSCOPY FLEXIBLE PROXIMAL DIAGNOSTIC History of colonic polyps 05/07/2023 2:15 PM EDT Health Maintenance Due Date Last Done Comments DISCUSS TOBACCO CESSATION (REFER TO SMARTSET #6658) 1955 COVID-19 Vaccine (#1) 04/05/1956 Alpha-1 Antitrypsin [...] 10/17/2022, 0 09/05/2020, 10/11/2019, Additional history exists GFR 11/18/2023 11/17/2022, 09/25, 10/16/2021, Additional history exists O2 ASSESSMENT COMPLETED IN PAST YEAR FOR COPD 11/18/2023 11/17/2022 Yearly B-12 11/18/2023 11/17/2022, 09/25, 10/16/2021, Additional history exists DTaP,Tdap,and Td Vaccines (2 - Td or Tdap) 01/17/2026 01/18/2016, 03/15/2004 VITAMIN D LEVEL ONCE IN A LIFETIME-USE SMARTSET# 75630 Completed 12/18/2015, 02/09/2015, 06/29/2014, Additional history exists LUNG CANCER SCREENING - USE SMARTSET 49194 Completed 06/20/2019, 07/25/2017, 07/11/2017, Additional history exists [...] this encounter Medical Devices Implanted Type Area Inspector Firearms Device Identifier Shelf Expiration Date Model / Serial / Lot Stent Carotid [id number] - [id number] Implanted:Qty: 1 on 08/23/2013 at [facility] Right: Carotid [facility] : VASCULAR DEVICES 02/21/2016 [id number] / / [id number] documented as of this encounter Visit Diagnoses Diagnosis Asymptomatic stenosis of right carotid artery- Primary Seizure, grand mal (HCC) Other convulsions Hyponatremia Hyposmolality and/or hyponatremia History of colonic polyps Personal history of [...] the patient have Health Care Power of Shirt Sorter? No Code Status History Code Status Date Activated Date Inactivated Comments Full Code 07/10/2017 5:59 PM 07/13/2017 3:18 PM Thi s order reflects the patients wishes and were consensually agreed upon. Question Answer Comments Discussion of Advance Directives occurred with: Patient/Family Does the patient have a Living Will? Yes, not currently available Does the patient have Health Care Power of Shirt Sorter? No Full Code 08/23/2013 8:39 AM 08/24/2013 2:49 PM This order reflects the patients wishes and were consensually agreed upon. Full Code 08/02/2013 7:49 PM 08/06/2013 12:55 AM Th is order reflects the patients wishes and were consensually agreed upon. Question Answer Comments Discussion of Advance Directives occurred with: Patient/Family Care Teams Jukebox Checker Relationship Specialty Start Date End Date Terry Resendez MD [address] [place] [address] PCP - General 04/07/1996 documented as of this encounter"
--- OUTSIDE RECORDS SUMMARY | 2023-07-11 10:14 | External Medical Summary ---
Author Name Unknown Address Unknown Organization K09:[facility] [place] [address] Laboratory Report Ordering Provider Test Date Status LOUISE DELGADO 01/29/2023 13:59:59 Final Observation Date Value Abnormality Reference (Units ) Status BUN 01/29/2023 13:59:59 9 6-20 (mg/dL) Final Creatinine 01/29/2023 13:59:59 0.9 0.6-1.2 (mg/dL) Final Glomerular filtration rate/1.73 sq M.predicted [Volume Rate/Area] in Serum, Plasma or Blood by Creatinine-based formula (CKD-EPI) 01/29/2023 13:59:59 >90 >=60 (mL/min) Final eGFR is calculated based on the CKD-EPI 2020 equation SODIUM 01/29/2023 13:59:59 129 Below low normal 135 -146 (mmol/L) Final Potassium 01/29/2023 13:59:59 4.4 3.5-5.1 (m mol/L) Final Cl 01/29/2023 13:59:59 92 Below low normal 98- 107 (mmol/L) Final CO2 01/29/2023 13:59:59 26 22-32 (mmo l/L) Final Anion gap 01/29/2023 13:59:59 11 7-15 (mmol /L) Final Glucose 01/29/2023 13:59:59 76 70-120 (mg /dL) Final Calcium 01/29/2023 13:59:59 9.7 8.4-10.2 ( mg/dL) Final Performing Location [facility] [place] [address]
--- OUTSIDE RECORDS SUMMARY | 2023-07-11 10:14 | External Medical Summary | Summary of Care ---
Author Name Unknown Organization [facility] Address [address] [place] [address] Phone [phone] Care Team Providers Care Entertainment Reporter Name Role Phone Terry Resendez MD Primary Care Provider [phone] Reason for Visit * Reason Onset Date Comments Precert In Process 01/29/2023 08 NEENA LIND Encounter Details Date Type Department Care Team Description 01/29/[address] [facility] [address] [place] [address] Elsie Capone MD [address] [place] [address] Precert In Process (08 NEENA UPTON AJ... Allergies Active Allergy Reactions Severity Noted Date Comments Ciprofloxacin Hives 09/01/2017 Statins 11/15/2020 All statins Simvastatin 05/07/2006 Severe myalgia's documented as of this encounter (statuses as of 01/29/2023) Medications Medication Sig Dispensed Refills Start Date End Date Status ASPIRIN EC 81 MG PO TBECIndications:Esther nary atherosclerosis of cheesh-na coronary artery Take one pill daily 100 [...] MOUTH DAILY 90 Tablet 3 3 Active levETIRAcetam 500 MG Oral Tablet (Keppra) 1/2 twice a day 90 Tablet 1 3 Active Ajovy 225 MG/1.5ML Subcutaneous Solution Auto-injector (FlexGen-vfrm) Inject 1.5 ml under the skin once a month 1.5 mL 5 3 Active Additional Information Patient not taking.Reported on 12/18/2022 Metoprolol Tartrate 25 MG Oral Tablet (Lopressor) Take 1 Tablet by mouth in the morning. 0 3 Active HYDROcodone-Acetamin ophen 5-325 MG Oral TabletIndications:Ch ronic bilateral low back pain with right-sided sciatica Take 1 Tablet by mouth 3 times a day as needed for Pain, Mild or Pain, Moderate. 30 day RX 90 Tablet 0 3 Active Omeprazole 20 MG Oral Capsule Delayed Release (PriLOSEC) Take by mouth 1 Capsule in the morning. 90 Capsule 3 2 01/29/20 23 Discontinu ed(Refill) Hospital, Clinic, or Other [...] * Telephone Encounter - ZACHARY Arias - 01/29/2023 1:39 PM EDT Neurology Pre-Cert Request Medication/Disease State Information: Medication: Fremanezumab (Ajovy) - 225mg/1.5ml pen - 225mg once a month Diagnosis (including ICD-10): Migraine - Chronic Migraine G43.709 - Self- administered - route pre-cert request to [id number] See corresponding visit note(s) for additional supporting clinical information. Office Information: Prescriber: Elsie Capone MD documented in this encounter Plan of Treatment Upcoming Encounters Date Type Specialty Care Team Description 02/02/2023 Imaging Radiology 02/13/2023 Cardiac Studies Cardiac Studies 02/13/2023 Nurse Only Ancillary Nurse Jillian [address] [place] [address] 04/17/2023 Office Visit Family Medicine Terry Resendez MD [address] [place] [address] 04/20/2023 Office Visit Neurology Elsie Capone MD [address] [place] [address] 05/07/2023 Hospital Encounter Surgery Dat Narayanan MD [address] [place] [address] 05/07/2023 Surgery Surgery Dat Narayanan MD [address] [place] [address] COLONOSCOPY FLEXIBLE PROXIMAL DIAGNOSTIC 08/12/2023 Office Visit Cardiology Terry Garcia PA-C [address] [place] [address] Scheduled Procedures Name Priority Associated Diagnoses Date/Ti me COLONOSCOPY FLEXIBLE PROXIMAL DIAGNOSTIC History of colonic polyps 05/07/2023 2:15 PM EDT Health Maintenance Due Date Last Done Comments DISCUSS TOBACCO CESSATION (REFER TO SMARTSET #7107) 1955 COVID-19 Vaccine (#1) 04/05/1956 Alpha-1 Antitrypsin [...] D LEVEL ONCE IN A LIFETIME-USE SMARTSET# 66877 Completed 12/18/2015, 02/09/2015, 06/29/2014, Additional history exists LUNG CANCER SCREENING - USE SMARTSET 61677 Completed 06/20/2019, 07/25/2017, 07/11/2017, Additional history exists [...] this encounter Medical Devices Implanted Type Area Youth Ministry Director Device Identifier Shelf Expiration Date Model / Serial / Lot Stent Carotid [id number] - [id number] Implanted:Qty: 1 on 08/23/2013 at [place] [facility] Right: Carotid [facility] VASCULAR DEVICES 02/21/2016 [id number] / / [id number] documented as of this encounter Advance Directives [...] the patient have Health Care Power of Hand Crown Pouncer? No Code Status History Code Status Date Activated Date Inactivated Comments Full Code 07/10/2017 5:59 PM 07/13/2017 3:18 PM Thi s order reflects the patients wishes and were consensually agreed upon. Question Answer Comments Discussion of Advance Directives occurred with: Patient/Family Does the patient have a Living Will? Yes, not currently available Does the patient have Health Care Power of Hand Crown Pouncer? No Full Code 08/23/2013 8:39 AM 08/24/2013 2:49 PM This order reflects the patients wishes and were consensually agreed upon. Full Code 08/02/2013 7:49 PM 08/06/2013 12:55 AM Th is order reflects the patients wishes and were consensually agreed upon. Question Answer Comments Discussion of Advance Directives occurred with: Patient/Family Care Teams Entertainment Reporter Relationship Specialty Start Date End Date Terry Resendez MD [address] [place] [address] PCP - General 04/07/1996 documented as of this encounter
--- OUTSIDE RECORDS SUMMARY | 2023-07-11 10:14 | External Medical Summary | Summary of Care ---
Author Name Unknown Organization [facility] Address [address] [place] [address] Phone [phone] Care Team Providers Care Director Of Occupational Health Name Role Phone Terry Resendez MD Primary Care Provider [phone] Reason for Visit * Reason Onset Date Comments Medication Pre-auth 01/29/2023 Encounter Details Date Type Department Care Team Description 01/29/2023 Telephone Neurology [facility] [address] [facility] [place] [address] Elsie Capone MD [address] [place] [address] Medication Pre-auth Allergies Active Allergy Reactions Severity Noted Date Comments Ciprofloxacin Hives 09/01/2017 Statins 11/15/2020 All statins Simvastatin 05/07/2006 Severe myalgia's documented as of this encounter (statuses as of 01/29/2023) Medications Medication Sig Dispensed Refills Start Date End Date Status ASPIRIN EC 81 MG PO TBECIndications:Coron johan atherosclerosis of [place] coronary artery Take one pill daily 100 [...] 90 Capsule 3 06/18/2022 Active Spacer/Aero-Holding Chambers DeviceIndications: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 1 [...] Active Ajovy 225 MG/1.5ML Subcutaneous Solution Auto-injector ([employer]-vfrm) Inject 1.5 ml under the skin once [...] Self- administered - route pre-cert request to [id number] See corresponding visit note(s) for additional supporting clinical information. Office Information: Prescriber: Elsie Capone MD documented in this encounter Plan of Treatment Upcoming Encounters Date Type Specialty Care Team Description 02/02/2023 Imaging Radiology 02/13/2023 Cardiac Studies Cardiac Studies 02/13/2023 Nurse Only [facility] Nurse Jillian [address] [place] [facility] [place] [address] 04/17/2023 Office Visit Family Medicine Terry Resendez MD [address] [facility] [place] [phone] 04/20/2023 Office Visit Neurology Elsie Capone MD [address] [place] [address] 05/07/2023 Hospital Encounter Surgery Dat Narayanan MD [address] [place] [address] 05/07/2023 Surgery Surgery Dat Narayanan MD [address] [place] [address] COLONOSCOPY FLEXIBLE PROXIMAL DIAGNOSTIC 08/12/2023 Office Visit Cardiology Terry Garcia PA-C [address] [place] [address] Scheduled Procedures Name Priority Associated Diagnoses Date/Ti me COLONOSCOPY FLEXIBLE PROXIMAL DIAGNOSTIC History of colonic polyps 05/07/2023 2:15 PM EDT Health Maintenance Due Date Last Done Comments DISCUSS TOBACCO CESSATION (REFER TO SMARTSET #1964) 1955 COVID-19 Vaccine (#1) 04/05/1955 Alpha-1 Antitrypsin [...] D LEVEL ONCE IN A LIFETIME-USE SMARTSET# [id number] Completed 12/18/2015, 02/09/2015, 06/29/2014, Additional history exists LUNG CANCER SCREENING - USE SMARTSET [id number] Completed 06/20/2019, 07/25/2017, 07/11/2017, Additional history exists [...] encounter Medical Devices Implanted Type Area Toll Collector Device Identifier Shelf Expiration Date Model / Serial / Lot Stent Carotid 8-6x30 [id number] - [id number] Implanted:Qty: 1 on 08/23/2013 [place] [facility] [place] Carotid [facility] : VASCULAR DEVICES 02/21/2016 [id number] / / [id number] documented as of this encounter Advance Directives [...] the patient have Health Care Power of Para Operator? No Code Status History Code Status Date Activated Date Inactivated Comments Full Code 07/10/2017 5:59 PM 07/13/2017 3:18 PM Thi s order reflects the patients wishes and were consensually agreed upon. Question Answer Comments Discussion of Advance Directives occurred with: Patient/Family Does the patient have a Living Will? Yes, not currently available Does the patient have Health Care Power of Para Operator? No Full Code 08/23/2013 8:39 AM 08/24/2013 2:49 PM This order reflects the patients wishes and were consensually agreed upon. Full Code 08/02/2013 7:49 PM 08/06/2013 12:55 AM Th is order reflects the patients wishes and were consensually agreed upon. Question Answer Comments Discussion of Advance Directives occurred with: Patient/Family Care Teams Director Of Occupational Health Relationship Specialty Start Date End Date Terry Resendez MD [address] [place] [address] PCP - General 04/07/1996 documented as of this encounter
--- OUTSIDE RECORDS SUMMARY | 2023-07-11 10:14 | External Medical Summary | Summary of Care ---
Author Name Unknown Organization [facility] Address [address] [place] [address] Phone [phone] Care Team Providers Care Digital Cartographic Technician Name Role Phone Terry Resendez MD Primary Care Provider [phone] Reason for Visit * Reason Onset Date Comments Precert Approved 01/29/2023 DIOGO Encounter Details Date Type Department Care Team Description 01/29/2023 Telephone Neurology [facility] [address] [place] [address] Elsie Capone MD [address] [place] [address] Precert Approved ( DIOGO) Allergies Active Allergy Reactions Severity Noted Date Comments Ciprofloxacin Hives 09/01/2017 Statins 11/15/2020 All statins Simvastatin 05/07/2006 Severe myalgia's documented as of this encounter (statuses as of 01/30/2023) Medications Medication Sig Dispensed Refills Start Date End Date Status ASPIRIN EC 81 MG PO TBECIndications:Esther nary atherosclerosis of [place] coronary artery Take one pill daily 100 [...] Active Ajovy 225 MG/1.5ML Subcutaneous Solution Auto-injector ([employer]-vfrm) Inject 1.5 ml under the skin once [...] as of this encounter (statuses as of 01/30/2023) Active Problems Problem Noted Date Hemiplegia and [...] as of this encounter (statuses as of 01/30/2023) Resolved Problems Problem Noted Date Resolved Date [...] as of this encounter (statuses as of 01/30/2023) Immunizations Name Administration Dates Next Due Pneumococcal [...] Self- administered - route pre-cert request to [id number] See corresponding visit note(s) for additional supporting clinical information. Office Information: Prescriber: Elsie Capone MD documented in this encounter Plan of Treatment Upcoming Encounters Date Type Specialty Care Team Description 02/02/2023 Imaging Radiology 02/13/2023 Cardiac Studies Cardiac Studies 02/13/2023 Nurse Only [facility]illary Jillian Nurse [address] [place] [address] 04/17/2023 Office Visit Family Medicine Terry Resendez MD [address], [place] [phone] 04/20/2023 Office Visit Neurology Elsie Capone MD [address] [place] [address] 05/07/2023 Hospital Encounter Surgery Dat Narayanan MD [address] [place] [address] 05/07/2023 Surgery Surgery Dat Narayanan MD [address] [place] [address] COLONOSCOPY FLEXIBLE PROXIMAL DIAGNOSTIC 08/12/2023 Office Visit Cardiology Terry Garcia PA-C [address] [place] [address] Scheduled Procedures Name Priority Associated Diagnoses Date/Ti [...] D LEVEL ONCE IN A LIFETIME-USE SMARTSET# [id number] Completed 12/18/2015, 02/09/2015, 06/29/2014, Additional history exists LUNG CANCER SCREENING - USE SMARTSET 48557 Completed 06/20/2019, 07/25/2017, 07/11/2017, Additional history exists [...] this encounter Medical Devices Implanted Type Area Belt Sander Stone Device Identifier Shelf Expiration Date Model / Serial / Lot Stent Carotid 8-6x30 [id number] - [id number] Implanted:Qty: 1 on 08/23/2013 at [place] [facility] [place] Right: Carotid [facility] : VASCULAR DEVICES 02/21/2016 [id number] / / [id number] documented as of this encounter Advance Directives [...] the patient have Health Care Power of Taco Maker? No Code Status History Code Status Date Activated Date Inactivated Comments Full Code 07/10/2017 5:59 PM 07/13/2017 3:18 PM Thi s order reflects the patients wishes and were consensually agreed upon. Question Answer Comments Discussion of Advance Directives occurred with: Patient/Family Does the patient have a Living Will? Yes, not currently available Does the patient have Health Care Power of Taco Maker? No Full Code 08/23/2013 8:39 AM 08/24/2013 2:49 PM This order reflects the patients wishes and were consensually agreed upon. Full Code 08/02/2013 7:49 PM 08/06/2013 12:55 AM Th is order reflects the patients wishes and were consensually agreed upon. Question Answer Comments Discussion of Advance Directives occurred with: Patient/Family Care Teams Digital Cartographic Technician Relationship Specialty Start Date End Date Terry Resendez MD [address] [place] [address] PCP - General 04/07/1996 documented as of this encounter
--- OUTSIDE RECORDS SUMMARY | 2023-07-11 10:14 | External Medical Summary ---
Author Name Unknown Address Unknown Organization [id number]:[place] [place] [address] [place] [address] Laboratory Report Ordering Provider Test Date Status LOUISE DELGADO 01/29/2023 13:59:59 Final Observation Date Value Abnormality Reference (Units ) Status Levetiracetam level 01/29/2023 13:59:59 6 3-63 (ug/mL) Final Performing Location LABORATORY [facility] - [address] [place] [address]
--- OUTSIDE RECORDS SUMMARY | 2023-07-11 10:14 | External Medical Summary | Summary of Care ---
Author Name Unknown Organization [facility] Address [address] [place] [address] Phone [phone] Care Team Providers Care Entry Writer Name Role Phone Terry Resendez MD Primary Care Provider Reason for Visit * Reason Comments Outpatient Testing Encounter Details Date Type Department Care Team Description 01/29/2023 Laboratory [facility] [place] [address] [place] [phone] [place], [facility] Sc[facility] [address] [place] [address] Arrived Allergies Active Allergy Reactions Severity Noted Date Comments Ciprofloxacin Hives 09/01/2017 Statins 11/15/2020 All statins Simvastatin 05/07/2006 Severe myalgia's documented as of this encounter (statuses as of 01/29/2023) Medications Medication Sig Dispensed Refills Start Date End Date Status ASPIRIN EC 81 MG PO TBECIndications:Coron johan atherosclerosis of [place] coronary artery Take one pill daily 100 [...] 90 Capsule 3 06/18/2022 Active Spacer/Aero-Holding Chambers 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 [...] Active Ajovy 225 MG/1.5ML Subcutaneous Solution Auto-injector ([employer]-vfrm) Inject 1.5 ml under the skin once [...] Nurse Only Ancillary Nurse Jillian [address] [place] [address] 04/17/2023 Office Visit Family Medicine Terry Resendez MD [address] [place] [address] 04/20/2023 Office Visit Neurology Elsie Capone MD [address] [place] [address] 05/07/2023 Hospital Encounter Surgery Dat Narayanan MD [address] [place] [address] 05/07/2023 Surgery Surgery Dat Narayanan MD [address] [place] [address] COLONOSCOPY FLEXIBLE PROXIMAL DIAGNOSTIC 08/12/2023 Office Visit Cardiology Terry Garcia PA-C [address] [place] [address] Scheduled Procedures Name Priority Associated Diagnoses Date/Ti me COLONOSCOPY FLEXIBLE PROXIMAL DIAGNOSTIC History of colonic polyps 05/07/2023 2:15 PM EDT Health Maintenance Due Date Last Done Comments DISCUSS TOBACCO CESSATION (REFER TO SMARTSET #4151) 1955 COVID-19 Vaccine (#1) 04/05/1955 Alpha-1 Antitrypsin [...] D LEVEL ONCE IN A LIFETIME-USE SMARTSET# [id number] Completed 12/18/2015, 02/09/2015, 06/29/2014, Additional history exists LUNG CANCER SCREENING - USE SMARTSET 23672 Completed 06/20/2019, 07/25/2017, 07/11/2017, Additional history exists [...] this encounter Medical Devices Implanted Type Area Fuels Sales Representative Device Identifier Shelf Expiration Date Model / Serial / Lot Stent Carotid 8-6x30 [id number] - [id number] Implanted:Qty: 1 on 08/23/2013 at OR [facility] [place] Right: Carotid [facility] : VASCULAR DEVICES 02/21/2016 [id number] / / [id number] documented as of this encounter Advance Directives [...] the patient have Health Care Power of Research And Development Manager? No Code Status History Code Status Date Activated Date Inactivated Comments Full Code 07/10/2017 5:59 PM 07/13/2017 3:18 PM Thi s order reflects the patients wishes and were consensually agreed upon. Question Answer Comments Discussion of Advance Directives occurred with: Patient/Family Does the patient have a Living Will? Yes, not currently available Does the patient have Health Care Power of Research And Development Manager? No Full Code 08/23/2013 8:39 AM 08/24/2013 2:49 PM This order reflects the patients wishes and were consensually agreed upon. Full Code 08/02/2013 7:49 PM 08/06/2013 12:55 AM Th is order reflects the patients wishes and were consensually agreed upon. Question Answer Comments Discussion of Advance Directives occurred with: Patient/Family Care Teams Entry Writer Relationship Specialty Start Date End Date Terry Resendez MD [address] [place] [address] PCP - General 04/07/1996 documented as of this encounter
--- OUTSIDE RECORDS SUMMARY | 2023-07-11 10:14 | External Medical Summary | Summary of Care ---
Author Name Unknown Organization [facility] Address [address] [place] [address] Phone [phone] Care Team Providers Care Tutoring Manager Name Role Phone Terry Resendez MD Primary Care Provider Reason for Visit * Reason Onset Date Comments Precert In Process 01/29/2023 08 [facility] QUESTION AJOVY Encounter Details Date Type Department Care Team Description 01/29/2023 Telephone Neurology [facility] [address] [place] [address] Elsie Capone MD [address] [place] [address] Precert In Process (08 [facility] Q... Allergies Active Allergy Reactions Severity Noted Date Comments Ciprofloxacin Hives 09/01/2017 Statins 11/15/2020 All statins Simvastatin 05/07/2006 Severe myalgia's documented as of this encounter (statuses as of 01/30/2023) Medications Medication Sig Dispensed Refills Start Date End Date Status ASPIRIN EC 81 MG PO TBECIndications:Esther nary atherosclerosis of [place] coronary artery Take one pill daily 100 [...] Active Ajovy 225 MG/1.5ML Subcutaneous Solution Auto-injector ([employer]-vfrm) Inject 1.5 ml under the skin once [...] Self- administered - route pre-cert request to [id number] See corresponding visit note(s) for additional supporting clinical information. Office Information: Prescriber: Elsie Capone MD documented in this encounter Plan of Treatment Upcoming Encounters Date Type Specialty Care Team Description 02/02/2023 Imaging Radiology 02/13/2023 Cardiac Studies Cardiac Studies 02/13/2023 Nurse Only Ancillary Nurse Jillian [address] [place] [address] 04/17/2023 Office Visit Family Medicine Terry Resendez MD [address] [place] [address] 04/20/2023 Office Visit Neurology Elsie Capone MD [address] [place] [address], [place] [address] 05/07/2023 Hospital Encounter Surgery Dat Narayanan MD [address] [place] [address] 05/07/2023 Surgery Surgery Dat Narayanan MD [address] [place] [address] COLONOSCOPY FLEXIBLE PROXIMAL DIAGNOSTIC 08/12/2023 Office Visit Cardiology Terry Garcia PA-C [address] [place] [address] Scheduled Procedures Name Priority Associated Diagnoses Date/Ti me COLONOSCOPY FLEXIBLE PROXIMAL DIAGNOSTIC History of colonic polyps 05/07/2023 2:15 PM EDT Health Maintenance Due Date Last Done Comments DISCUSS TOBACCO CESSATION (REFER TO SMARTSET #7677) 1955 COVID-19 Vaccine (#1) 04/05/1955 Alpha-1 Antitrypsin [...] D LEVEL ONCE IN A LIFETIME-USE SMARTSET# [id number] Completed 12/18/2015, 02/09/2015, 06/29/2014, Additional history exists LUNG CANCER SCREENING - USE SMARTSET 50958 Completed 06/20/2019, 07/25/2017, 07/11/2017, Additional history exists [...] this encounter Medical Devices Implanted Type Area Train Operations Supervisor Device Identifier Shelf Expiration Date Model / Serial / Lot Stent Carotid 8-6x30 [id number] - [id number] [place]planted:Q[place] 1 [place]/23[place]2013 [place] [facility] [place] Carotid [facility] VASCULAR DEVICES 02/21/2016 [id number] / / [id number] documented as of this encounter Advance Directives [...] the patient have Health Care Power of Clinical Social Work Aide? No Code Status History Code Status Date Activated Date Inactivated Comments Full Code 07/10/2017 5:59 PM 07/13/2017 3:18 PM Thi s order reflects the patients wishes and were consensually agreed upon. Question Answer Comments Discussion of Advance Directives occurred with: Patient/Family Does the patient have a Living Will? Yes, not currently available Does the patient have Health Care Power of Clinical Social Work Aide? No Full Code 08/23/2013 8:39 AM 08/24/2013 2:49 PM This order reflects the patients wishes and were consensually agreed upon. Full Code 08/02/2013 7:49 PM 08/06/2013 12:55 AM Th is order reflects the patients wishes and were consensually agreed upon. Question Answer Comments Discussion of Advance Directives occurred with: Patient/Family Care Teams Tutoring Manager Relationship Specialty Start Date End Date Terry Resendez MD [address] [place] [address] PCP - General 04/07/1996 documented as of this encounter
--- OUTSIDE RECORDS SUMMARY | 2023-07-11 10:14 | External Medical Summary | Summary of Care ---
Author Name Unknown Organization [facility] Address [address] [facility] [address] Phone [phone] Care Team Providers Care Ice Rink Attendant Name Role Phone Sam Resendez MD Primary Care Provider [phone] Reason for Visit * Reason Onset Date Comments Medication Refill 01/28/2023 Encounter Details Date Type Department Care Team Description 01/28/2023 Refill Cardiology, [facility] [address] [place] [address] Sam Metcalf, PA-C [address] [place] [address] Allergies Active Allergy Reactions Severity Noted Date Comments Ciprofloxacin Hives 09/01/2017 Statins 11/15/2020 All statins Simvastatin 05/07/2006 Severe myalgia's documented as of this encounter (statuses as of 01/29/2023) Medications Medication Sig Dispensed Refills Start Date End Date Status ASPIRIN EC 81 MG PO TBECIndications:Esther nary atherosclerosis of [place] coronary artery Take one [...] Active Ajovy 225 MG/1.5ML Subcutaneous Solution Auto-injector ([employer]-vfrm) Inject 1.5 ml under the skin once [...] the morning. 90 Capsule 1 3 Active Omeprazole 20 MG Oral Capsule [...] encounter Miscellaneous Notes * Telephone Encounter - Daniel Lilly [facility] - 01/29/2023 3:29 PM EDTSigned Prescriptions: Disp Refills Omeprazole 20 MG Oral Capsule Delayed Rele*90 Cap*1 Sig: Take 1 Capsule by mouth in the morning.Authorizing Provider: SAM METCALF User: DANIEL LILLY * Telephone Encounter - Daniel Lilly [facility] - 01/29/2023 3:29 PM EDT Rerouted remaining refills to new pharmacy as requested. Thank you, Daniel Lilly, PharmD Clinical Pharmacist [facility] ([facility] [place] [facility]) [phone] 01/29/2023, 3:29 PM * Telephone Encounter - Laura Spangler [facility] - 01/28/2023 2:53 PM EDT [id number] [address] [place]. Pending Prescriptions: Disp Refills Omeprazole 20 MG Oral Capsule Delayed Rel*90 Cap*1 Sig: Take 1 Capsule by mouth in the morning. Last Visit: 12/18/2022 (in office), Visit date not found (telemedicine) 08/12/2023 If no future appointments scheduled, and last appointment is greater than a year ago, please schedule patient for a follow-up appointment Last date the medication was ordered: 06/18/22 Patient Phone Numbers Labs: Lab Results Component Value Date/Time CREAT 1.1 11/17/2022 12:16 PM CREAT 0.9 06/14/2019 08:52 AM POTASSIUM 4.6 10/17/2022 02:57 PM POTASSIUM 5.2 (H) 06/14/2019 08:52 AM TSH 0.96 08/03/2018 11:30 AM LDLCALC 88 11/17/2022 12:16 PM LDLCALC 92 06/14/2019 08:52 AM LDLDIRECT 105 10/16/2021 02:47 PM LDLDIRECT NOT APPLICABLE 06/14/2019 08:52 AM LDLDIRECT 119 (H) 04/24/2009 02:20 PM ALT 24 10/17/2022 02:57 PM ALT 38 06/14/2019 08:52 AM HGBA1C 5.3 10/17/2022 02:57 PM HGBA1C 5.3 10/11/2019 04:14 PM documented in this encounter Plan of Treatment Upcoming Encounters Date Type Specialty Care Team Description 02/02/2023 Imaging Radiology 02/13/2023 Cardiac Studies Cardiac Studies 02/13/2023 Nurse Only Nurse Ket[place] [address] [place] [facility] [place] [address] 04/17/2023 Office Visit Family Medicine Sam Resendez MD [address] [place] [facility] [place] [address] 04/20/2023 Office Visit Neurology Elsie Capone MD [address] [place] [address] 05/07/2023 Hospital Encounter Surgery Dat Narayanan MD [address] [place] [address] 05/07/2023 Surgery Surgery Dat Narayanan MD [address] [place] [address] COLONOSCOPY FLEXIBLE PROXIMAL DIAGNOSTIC 08/12/2023 Office Visit Cardiology Sam Metcalf PA-C [address] [place] [address] Scheduled Procedures Name Priority Associated Diagnoses Date/Ti me COLONOSCOPY FLEXIBLE PROXIMAL DIAGNOSTIC History of colonic polyps 05/07/2023 2:15 PM EDT Health Maintenance Due Date Last Done Comments DISCUSS TOBACCO CESSATION (REFER TO SMARTSET #0967) 1955 COVID-19 Vaccine (#1) 04/05/1955 Alpha-1 Antitrypsin 1972 Zoster Vaccines (1 of 2) 2004 *COPD SEVERITY VERIFIED BY PFT 08/22/2015 DXA Scan 11/27/2017 11/28/2015 *BISPHONATE OR OTHER ACCEPTABLE MEDICATION NEEDED FOR OSTEOPOROSIS (REFER TO SMARTSET #2158) 06/14/2018 Depression, Most Recent Score >= 10 [...] D LEVEL ONCE IN A LIFETIME-USE SMARTSET# [id number] Completed 12/18/2015, 02/09/2015, 06/29/2014, Additional history exists LUNG CANCER SCREENING - USE SMARTSET 77867 Completed 06/20/2019, 07/25/2017, 07/11/2017, Additional history exists [...] this encounter Medical Devices Implanted Type Area Gas Pit Worker Device Identifier Shelf Expiration Date Model / Serial / Lot Stent Carotid 8-6x30 [id number] - [id number] Implanted:Qty: 1 on 08/23/2013 at [place] [facility] [place] Right: Carotid [facility] : VASCULAR DEVICES 02/21/2016 [id number] / / [id number] documented as of this encounter Advance Directives [...] the patient have Health Care Power of Keeper Helper? No Code Status History Code Status Date Activated Date Inactivated Comments Full Code 07/10/2017 5:59 PM 07/13/2017 3:18 PM Thi s order reflects the patients wishes and were consensually agreed upon. Question Answer Comments Discussion of Advance Directives occurred with: Patient/Family Does the patient have a Living Will? Yes, not currently available Does the patient have Health Care Power of Keeper Helper? No Full Code 08/23/2013 8:39 AM 08/24/2013 2:49 PM This order reflects the patients wishes and were consensually agreed upon. Full Code 08/02/2013 7:49 PM 08/06/2013 12:55 AM Th is order reflects the patients wishes and were consensually agreed upon. Question Answer Comments Discussion of Advance Directives occurred with: Patient/Family Care Teams Ice Rink Attendant Relationship Specialty Start Date End Date Sam Resendez MD [address] [place] [address] PCP - General 04/07/1996 documented as of this encounter
--- OUTSIDE RECORDS SUMMARY | 2023-07-11 10:14 | External Medical Summary | Summary of Care ---
Author Name Unknown Organization [facility] Address [address] [place] [address] Phone [phone] Care Team Providers Care Room Service Manager Name Role Phone Terry Resendez MD Primary Care Provider [phone] Reason for Visit * Reason Comments Return Neuro Encounter Details Date Type Department Care Team Description 01/29/2023 Office Visit Neurology [facility] [place] [address] [facility] [place] [address] Elsie Gil MD [facility] [address] Asymptomatic stenosis of right carotid artery*; Seizure, grand mal (HCC); Hyponatremia Allergies Active Allergy Reactions Severity Noted Date Comments Ciprofloxacin Hives 09/01/2017 Statins 11/15/2020 All statins Simvastatin 05/07/2006 Severe myalgia's documented as of this encounter (statuses as of 01/30/2023) Medications Medication Sig Dispensed Refills Start Date End Date Status ASPIRIN EC 81 MG PO TBECIndications:Esther nary atherosclerosis of [place] coronary artery Take one pill daily 100 [...] MOUTH DAILY 90 Tablet 3 3 Active Ajovy 225 MG/1.5ML Subcutaneous Solution Auto-injector (Freporfirioezumab-vfrm) Inject 1.5 ml under the skin once [...] day RX 90 Tablet 0 3 Active levETIRAcetam 500 MG Oral Tablet (Keppra) 1 twice a day (dose increase) 180 Tablet 1 3 Active Omeprazole 20 MG Oral Capsule Delayed Release (PriLOSEC) Take by mouth 1 Capsule in the morning. 90 Capsule 3 2 01/29/20 23 Discontinu ed(Refill) levETIRAcetam 500 MG Oral Tablet (Keppra) 1/2 twice a day 90 Tablet 1 3 01/31/20 23 Discontinu ed(Refill) Hospital, Clinic, or Other [...] Progress Notes * Elsie Gil MD - 01/29/2023 1:56 PM EDT Images from the original note were not included. CLINIC NOTES Neurology [address] [address] Patel León : 1955 NEUROLOGY OUTPATIENT NOTE [...] MRI the brain which I have reviewed imagesand report are as follows Details Reading Physician Reading Date Result Priority Tomas Thomas MD [phone] 12/24/2022 Addenda ADDENDUM: Upon comparison with outside [...] x 20 min TECHNIQUE MRA of the [place] of [place] was performed without the use of intravenous contrast using 3D uxey-mw-gnwczg sequence. 3D reformatted images were reviewed. COMPARISON [...] fracture of L2 lumbar vertebra ([facility]) 10/16/2015 Coronary atherosclerosis of [place] coronary artery 2006 total occ RCA// 40% prox LAD Displacement [...] goal of less than 7.0% ([facility]) E11.9 COPD, severity to be determined ([facility]) J44.9 MEDICATION USE AGREEMENT [id number] Senile osteoporosis M81.0 Aortic dissection, thoracic ([facility]) I71.019 Urinary retention R33.9 History of ischemic vertebrobasilar artery thalamic stroke Z86.73 Coronary artery disease with exertional angina ([facility]) I25.118 Hemiplegia, unspecified affecting right dominant side ([facility]) G81.91 Chronic bilateral low back pain with right-sided sciatica M54.41, G89.29 Spondylosis, lumbar, with myelopathy M47.16 DDD (degenerative disc disease), lumbar M51.36 Other specified peripheral vascular diseases ([facility]) I73.89 Hemiplga following cerebral infrc aff right dominant side ([facility]) I69.351 Diabetes mellitus with peripheral angiopathy ([facility]) E11.51 Acute ischemic stroke ([facility]) I63.9 Bradycardia R00.1 Hemiplegia and hemiparesis following unspecified cerebrovascular disease affecting right dominant side ([facility]) I69.951 Recurrent major depressive disorder ([facility]) F33.9 Past Surgical History: Procedure Laterality Date ANESTHESIA PROCEDURE NEC 08/05/2013 ANESTHESIA FOR PACU PROCEDURE OTHER performed by [place] [facility] [place] [facility] [place]-CARDIOLOGY ONLY 2006 COLONOSCOPY W/ LESION REMOVAL, SNARE 06/05/09 done one 12mm polyp in distal sigmoid,,one 3mm in transverse colon, 5mm polyp in proximal sigmoid, diverticulosis /adenomatous/repeat colonoscopy in 1 yr COLONOSCOPY, DIAGNOSTIC (RECTUM) 01/15/2016 hyperplatic & serrated adenomatous polyp, diverticulosis, repeat 3 yrs/[facility] COLONOSCOPY, DIAGNOSTIC (RECTUM) N/A 04/05/2019 poor prep/diverticulosis sigmoid colon/biopsies show benign polyp/recall 3 years/COLONOSCOPY FLEXIBLE PROXIMAL DIAGNOSTIC performed by Dat Narayanan MD at OR [facility] CORONARY ANGIOGRAPHY W/LEFT HEART CATH 05/25/2017 CORONARY ANGIOGRAPHY W/LEFT HEART CATH performed by Martha Alford MD at [facility] IR VERTEBRAL AUGMENTATION TECH ONLY 2015 L2/ Dr Barcenas MISCELLANEOUS ORDER left lateral elbow ligament repair MISCELLANEOUS ORDER ([facility]) 09/27 right rotator cuff repair/ [place] OTHER 09/30 left rotator cuff repair OTHER 2007 bilateral hip replacement (Dr Benavidez) REMOVAL OF TONSILS, AGE 11+ TOTAL HIP REPLACEMENT & PROSTHESIS both hips, AVN TRANSCATH STENT-CAROTID ARTERY, W/EMBOL PROTECTION 08/23/2013 right carotid stent with cerebral angiogram. 08/23/13 Dr. Chen. C OR TRANSCATH STENT-CAROTID ARTERY, W/EMBOL PROTECTION Xact [...] HOURS NEEDED FOR NAUSEA. 30 Tab 0 Ikgxgkmfgkgwx-Otihnnwbv-GECC 65-100-325 MG Oral Capsule Two at onset [...] 1 Ajovy 225 MG/1.5ML Subcutaneous Solution Auto-injector (OGPlanetporfirioTasqe-vfrm) Inject 1.5 ml under the skin once [...] a tricyclic. He has previously taking gabapentin inthe past I believe for headache prophylaxis which was not effective. I believe a CGRP inhibitor would be safe and potentially effective for his headaches. Common side effects include constipation andmuscle cramps. Will look into why the patient [...] risk factors return in 4 months Elsie Gil MD 01/29/2023 1:56 PM documented in this encounter Nursing Notes * ZACHARY Arias - 01/29/2023 12:51 PM EDT Chief Complaint Patient presents with Return Neuro documented in this encounter Miscellaneous Notes * Addendum Note - Elsie Gil MD - 01/30/2023 1:00 PM EDTAddended by: LESIE GIL on: 01/30/2023 01:00 PM Modules accepted: Orders documented in this encounter Plan of Treatment Upcoming Encounters Date Type Specialty Care Team Description 02/02/2023 Imaging Radiology 02/13/2023 Cardiac Studies Cardiac Studies 02/13/2023 Nurse Only Ancillary Nurse Jillian [address] [place] [address] 04/17/2023 Office Visit Family Medicine Terry Resendez MD [address] [place] [address] 04/20/2023 Office Visit Neurology Elsie Gil MD [address] [place] [address] 05/07/2023 Hospital Encounter Surgery Dat Narayanan MD [address] [place] [address] 05/07/2023 Surgery Surgery Dat Narayanan MD [address] [place] [address] COLONOSCOPY FLEXIBLE PROXIMAL DIAGNOSTIC 08/12/2023 Office Visit Cardiology Terry Garcia PA-C [address] [place] [address] Scheduled Orders Name Type Priority Associated Diagnoses Orde r Schedule VASC DUPLEX CAROTID BILAT Medical Imaging Routine Asymptomatic stenosis of right carotid artery Expected: 01/29/2023, Expires: 02/28/2025 Scheduled Procedures Name Priority Associated Diagnoses Date/Ti me COLONOSCOPY FLEXIBLE PROXIMAL DIAGNOSTIC History of colonic polyps 05/07/2023 2:15 PM EDT Health Maintenance Due Date Last Done Comments DISCUSS TOBACCO CESSATION (REFER TO SMARTSET #5069) 1955 COVID-19 Vaccine (#1) 04/05/1955 Alpha-1 Antitrypsin 1972 Zoster Vaccines (1 of 2) 2004 *COPD SEVERITY VERIFIED BY PFT 08/22/2015 DXA Scan 11/27/2017 11/28/2015 *BISPHONATE OR OTHER ACCEPTABLE MEDICATION NEEDED FOR OSTEOPOROSIS (REFER TO SMARTSET #9826) 06/14/2018 Depression, Most Recent Score >= 10 [...] D LEVEL ONCE IN A LIFETIME-USE SMARTSET# 15899 Completed 12/18/2015, 02/09/2015, 06/29/2014, Additional history exists LUNG CANCER SCREENING - USE SMARTSET 24476 Completed 06/20/2019, 07/25/2017, 07/11/2017, Additional history exists [...] this encounter Medical Devices Implanted Type Area Wastewater Superintendent Device Identifier Shelf Expiration Date Model / Serial / Lot Stent Carotid 8-6x30 [id number] - [id number] Implanted:Qty: 1 on 08/23/2013 at [facility] Right: Carotid [facility] : VASCULAR DEVICES 02/21/2016 [id number] / / [id number] documented as of this encounter Procedures Procedure Name Priority Date/Time Associated Diagnosis Comments LEVETIRACETAM LEVEL Routine 01/29/2023 1 :59 PM EDT Seizure, grand mal (HCC) BASIC METABOLIC PANEL Routine 01/29/2023 1:59 PM EDT Hyponatremia documented in this encounter Results * (ABNORMAL) BASIC METABOLIC PANEL (01/29/2023 1:59 PM EDT) BUN 9 6 - 20 mg/dL 01/29/2023 3:08 PM EDT [facility] Creatinine 0.9 0.6 - 1.2 mg/dL 01/29/2023 3:08 PM EDT [facility] Estimated Glomerular Filtration Rate >90 >=60 mL/min 01/29/2023 3:08 PM EDT [facility] Comment:eGFR is calculated b ased on the CKD-EPI 2020 equation Sodium 129(L) 135 - 146 mmol/L 01/29/2023 3:08 PM EDT [facility] 56-02 Potassium 4.4 3.5 - 5.1 mmol/L 01/29/2023 3:08 PM EDT [facility] 56-02 Chloride 92(L) 98 - 107 mmol/L 01/29/2023 3:08 PM EDT [address] CO2 26 22 - 32 mmol/L 01/29/2023 3:08 PM EDT [address] Anion Gap 11 7 - 15 mmol/L 01/29/2023 3:08 PM EDT [address] Glucose 76 70 - 120 mg/dL 01/29/2023 3:08 PM EDT [address] Calcium 9.7 8.4 - 10.2 mg/dL 01/29/2023 3:08 PM EDT [facility] 5602 Blood Venous blood specimen / Unknown Venipuncture / Unknown 01/29/2023 1:59 PM EDT 01/29/2023 2:00 PM EDT Elsie Gil MD LAB BLOOD ORDERAB LES [facility] 56-[address] [place] [address] * LEVETIRACETAM LEVEL (01/29/2023 1:59 PM EDT) Levetiracetam 6 3 - 63 ug/mL 01/30/2023 9:20 AM EDT [facility] Blood Venous blood specimen / Unknown Venipuncture / Unknown 01/29/2023 1:59 PM EDT 01/29/2023 2:00 PM EDT Elsie Gil MD LAB BLOOD ORDERAB LES [facility] [address] [place] [address] documented in this encounter Visit Diagnoses Diagnosis Asymptomatic stenosis [...] patient have Health Care Power of Construction Ironworker? No Code Status History Code Status Date Activated Date Inactivated Comments Full Code 07/10/2017 5:59 PM 07/13/2017 3:18 PM Thi s order reflects the patients wishes and were consensually agreed upon. Question Answer Comments Discussion of Advance Directives occurred with: Patient/Family Does the patient have a Living Will? Yes, not currently available Does the patient have Health Care Power of Construction Ironworker? No Full Code 08/23/2013 8:39 AM 08/24/2013 2:49 PM This order reflects the patients wishes and were consensually agreed upon. Full Code 08/02/2013 7:49 PM 08/06/2013 12:55 AM Th is order reflects the patients wishes and were consensually agreed upon. Question Answer Comments Discussion of Advance Directives occurred with: Patient/Family Care Teams Room Service Manager Relationship Specialty Start Date End Date Terry Resendez MD [address] [place] [address] PCP - General 04/07/1996 documented as of this encounter"
--- OUTSIDE RECORDS SUMMARY | 2023-07-11 10:14 | External Medical Summary | Summary of Care ---
Author Name Unknown Organization [facility] Address [address] [place] [address] Phone [phone] Care Team Providers Care Electron Tube Assembler Name Role Phone Sam Resendez MD Primary Care Provider Reason for Visit * Reason Onset Date Comments Medication Refill 02/01/2023 Encounter Details Date Type Department Care Team Description 02/01/2023 Refill [facility] [address] [place] [address] Sam Resendez MD [address] [place] [address] Chronic bilateral low back pain with right-sided sciatica Allergies Active Allergy Reactions Severity Noted Date Comments Ciprofloxacin Hives 09/01/2017 Statins 11/15/2020 All statins Simvastatin 05/07/2006 Severe myalgia's documented as of this encounter (statuses as of 02/02/2023) Medications Medication Sig Dispensed Refills Start Date End Date Status ASPIRIN EC 81 MG PO TBECIndications:Esther nary atherosclerosis of [place] coronary artery Take one pill daily 100 [...] 30 day RX 90 Tablet 0 3 02/02/20 23 Discontinu ed(Refill) Hospital, Clinic, or Other [...] Telephone Encounter - Sam Resendez MD - 02/02/2023 7:03 PM EDTSigned Prescriptions: Disp Refills HYDROcodone-Acetaminophen 5-325 MG Oral Ta*90 Tab*0 Sig: Take 1 Tablet by mouth 3 times a day as needed for Pain, Mild or Pain, Moderate. 30 day RX Authorizing Provider: SAM RESENDEZ * Telephone Encounter - January [facility] - 02/02/2023 4:11 PM EDTPending Prescriptions: Disp Refills HYDROcodone-Acetaminophen 5-325 MG Oral Ta*90 Tab*0 Sig: Take 1 Tablet by mouth 3 times a day as needed for Pain, Mild or Pain, Moderate. 30 day RX * Telephone Encounter - January [facility] - 02/02/2023 4:11 PM EDT I have reviewed the patients controlled substance dispensing history in the Prescription Drug Monitoring Program in compliance with the [facility] regulations before prescribing a controlled substance. PDMP checked on 02/02/2023. Pending Prescriptions: Disp Refills HYDROcodone-Acetaminophen 5-325 MG Oral T*90 Tab*0 Sig: Take 1 Tablet by mouth 3 times a day as needed for Pain, Mild or Pain, Moderate. 30 day RX Last Visit: 10/17/2022 (in office), Visit date not found (telemedicine) Next Visit: 04/17/2023 Date medication was last filled: 01/02/23 Date medication is due for refill: 01/31/23 Pharmacy: [id number] Is this [...] Centralized Clinical Pharmacy Services ([facility]) (Formerly Telepharmacy) [phone] 02/02/2023, 4:11 PM documented in this encounter Plan of Treatment Upcoming Encounters Date Type Specialty Care Team Description 02/13/2023 Cardiac Studies Cardiac Studies 02/13/2023 Nurse Only Ancillary Nurse Jillian [address] [place] [address] 04/17/2023 Office Visit Family Medicine Sam Resendez MD [address] [place] [address] 04/20/2023 Office Visit Neurology Elsie Capone MD [address] [place] [address] 05/07/2023 Hospital Encounter Surgery Dat Narayanan MD [address] [place] [address] 05/07/2023 Surgery Surgery Dat Narayanan MD [address] [place] [address] COLONOSCOPY FLEXIBLE PROXIMAL DIAGNOSTIC 08/12/2023 Office Visit Cardiology Sam Garcia PA-C [address] [place] [address] Scheduled Procedures Name Priority Associated Diagnoses Date/Ti me COLONOSCOPY FLEXIBLE PROXIMAL DIAGNOSTIC History of colonic polyps 05/07/2023 2:15 PM EDT Health Maintenance Due Date Last Done Comments DISCUSS TOBACCO CESSATION (REFER TO SMARTSET #4141) 1955 COVID-19 Vaccine (#1) 04/05/1956 Alpha-1 Antitrypsin [...] D LEVEL ONCE IN A LIFETIME-USE SMARTSET# 50753 Completed 12/18/2015, 02/09/2015, 06/29/2014, Additional history exists LUNG CANCER SCREENING - USE SMARTSET 47699 Completed 06/20/2019, 07/25/2017, 07/11/2017, Additional history exists [...] this encounter Medical Devices Implanted Type Area Store Consultant Device Identifier Shelf Expiration Date Model / Serial / Lot Stent Carotid [id number] [id number] - [id number] [place]planted:Q[place] 1 [place]23/[place] [facility] Carotid [facility] VASCULAR DEVICES 02/21/2016 [id number] / / [id number] documented as of this encounter Visit Diagnoses [...] the patient have Health Care Power of System Architect? No Code Status History Code Status Date Activated Date Inactivated Comments Full Code 07/10/2017 5:59 PM 07/13/2017 3:18 PM Thi s order reflects the patients wishes and were consensually agreed upon. Question Answer Comments Discussion of Advance Directives occurred with: Patient/Family Does the patient have a Living Will? Yes, not currently available Does the patient have Health Care Power of System Architect? No Full Code 08/23/2013 8:39 AM 08/24/2013 2:49 PM This order reflects the patients wishes and were consensually agreed upon. Full Code 08/02/2013 7:49 PM 08/06/2013 12:55 AM Th is order reflects the patients wishes and were consensually agreed upon. Question Answer Comments Discussion of Advance Directives occurred with: Patient/Family Care Teams Electron Tube Assembler Relationship Specialty Start Date End Date Sam Resendez MD [address] [place] [address] PCP - General 04/07/1996 documented as of this encounter
[2023-07-12] MEDS ORDERED: GABAPENTIN 600 MG TAB PO SCH
[2023-07-13] MEDS ORDERED: GABAPENTIN 600 MG TAB PO SCH (12:00)
--- NOTE | 2023-07-13 15:01 | Coding Query ---
CODING QUERY To promote full compliance with coding requirements relating to patient care, provider participation is requested in all cases of steeler uncertainty. Please assist us with the question(s) below: Coding Question(s): Pt admitted with syncope and chest pain. Cardiology consulted / documented demand ischemia. Please document, if known or suspected the etiology of the chest pain. Thanks for your help! Jose Ramon Rojas [facility] Physician's Response(s): Principal Diagnosis: "that condition established after study, to be chiefly responsible for occasioning the admission of the patient to the hospital for care." Co-Existing Principal Diagnosis: "when two or more diagnoses equally meet the criteria for principal diagnosis as determined by the circumstances of admission, diagnostic work up, and/or therapy provided, and the Alphabetic Index, Tabular List, or another coding guideline does not provide sequencing direction, any one of the diagnoses may be sequenced first." "When the physician has documented what appears to be a current diagnosis in the body of the record, but has not included the diagnosis in the final diagnostic statement, the physician should be asked whether the diagnosis should be added." (Source Coding Clinic 2 QTR90. p3-4) MEKA
== END 2023-07-10 16:43 | disposition home or self-care (01) ==
LOC: ED 12:24 → INTOOBSV 14:29 → EDINP 14:29 → SUATTDRO 14:29 → 2S 17:06

== ENCOUNTER 2024-03-14 18:09 | Inpatient (IN) ==
--- NOTE | 2024-03-14 18:21 | Emergency Department Note ---
Impression & Plan Chest pain, Acute hyponatremia ED Provider Note NAME: MANUEL GONZALES AGE: 68 SEX: M : 1955 ARRIVES VIA: Ambulance INFORMANT: Patient, EMS ED PROVIDER(S): Justyn Bain DO CHIEF COMPLAINT: Chest pain HPI: The patient is a 68-year-old male who presented to the emergency department for an evaluation of chest pain. The patient described anterior chest pain that was associated with nausea shortness of breath as well as diaphoresis. The patient does have a history of coronary artery disease. He does use nitroglycerin. He states over the course the last few weeks especially he has been using more nitroglycerin than usual. Otherwise has been compliant with his outpatient medications. He has a history of coronary artery disease. The patient denies having any abdominal pain or back pain. The patient was treated with aspirin prior to arrival. At this time the patient has no pain. The patient arrived via ALS. The patient did have an EKG prior to arrival. ROS: See above HPI for pertinent positives & negatives. A total of 10 systems reviewed and were otherwise negative. PAST MEDICAL HISTORY: See Below PAST SURGICAL HISTORY: See Below FAMILY HISTORY: See Below SOCIAL HISTORY: See Below HOME MEDICATIONS: See Below ALLERGIES: See Below VITALS: See Below PHYSICAL EXAMINATION: GENERAL: Patient is awake alert in no acute distress patient is resting comfortably and showing no signs of anxiety EYES: The conjunctivae are clear. The pupils are round and reactive. EARS, NOSE, MOUTH AND THROAT: The nose is without any evidence of any deformity. NECK: The neck is nontender and supple. RESPIRATORY: Normal respiratory effort is noted there is no evidence of wheezing rhonchi or rales CARDIOVASCULAR: Regular rate and rhythm noted there no murmurs rubs or gallops normal S1 normal S2. GASTROINTESTINAL: The abdomen is soft. Abdomen is nontender. MUSCULOSKELETAL/EXTREMITIES: There is no evidence of gross deformity full range of motion is noted in the hips and shoulders. SKIN: There is no obvious evidence of any rash. There are no petechiae, pallor or cyanosis noted. NEUROLOGIC: Patient is awake alert and oriented x3 MEDICAL DECISION MAKING: The patient is a 68-year-old male who presented to the emergency department by ambulance for an evaluation of chest pain. The patient described anterior chest pain which was worsening with exertion. The patient did notice pain relief with his nitroglycerin at home as well as aspirin prior to arrival. At this time he is pain-free. I discussed the patient's laboratory and radiographic studies with him. I discussed the limitations of the emergency department workup for chest pain with him. Given his risk factors I do not feel he is a good candidate for outpatient management. For this reason I discussed his condition with the on-call [facility] hospitalist. Triage Nursing notes reviewed. Prior medical records reviewed Vital Signs: reviewed and remarkable for no significant abnormalities Differential diagnosis: Cardiac ischemia, aortic dissection, pulmonary embolism, pneumothorax, pneumonia, pericarditis, myocarditis, esophageal rupture, GERD, cholecystitis, pancreatitis, musculoskeletal, as well as other pathologies. ER treatment provided: See below Diagnostics interpreted by me: ECG: EKG was obtained in the emergency department. My interpretation is normal sinus rhythm at 68 bpm. There is no ectopy. Inferior Q waves were noted. There is no acute ST segment abnormalities noted. This compares to a tracing from December 25, 2023. No changes were noted. A prehospital EKG was obtained. I was able to evaluate this. My interpretation is sinus rhythm at 67 bpm. There is no ectopy. Nonspecific T wave abnormalities were noted in the lateral and inferior leads. This is improved on the tracing obtained in the emergency department. Cardiac Monitoring: An order was placed for continuous cardiac monitoring. The monitor shows a rate of 70 bpm with sinus rhythm. Laboratory studies: As stated above and show below. Imaging studies: See below. Radiographic imaging was reviewed by myself Consultation(s): I discussed this case with Dr. Guidry who [facility]. Past Med/Surg History Problem List Acute hyponatremia (Acute) Chest pain (Acute) Uncontrolled hypertension Demand ischemia Elevated troponin Vasovagal syncope Chest pain (Acute) H/O carotid stenosis "s/p EDITH stent placement 08/23/2013; Dr. Chen" Seizure disorder NSTEMI (non-ST elevated myocardial infarction) Syncope History of cardioembolic cerebrovascular accident (CVA) CAD (coronary artery disease) "S/p attempted PCI of a PENCILS WASHER of right coronary artery, procedure aborted due to small localized focal dissection of aortic root in Jun 2017" NSTEMI (non-ST elevated myocardial infarction) Obesity (BMI 30-39.9) (Chronic) Osteoarthritis (Chronic) Chronic pain (Chronic) Impotence of organic origin (Chronic) Colloid cyst of third ventricle (Chronic) Thoracic compression fracture (Acute) Fracture of ankle, trimalleolar, right, open (Acute) Previous back surgery (Chronic) Medical History Bacteremia Hyponatremia Closed fracture of right iliac wing Closed fracture of left inferior pubic ramus Closed fracture of superior ramus of left pubis Closed fracture of right superior pubic ramus Closed fracture of right inferior pubic ramus Sacral fracture, closed Hypertension History of aortic dissection Tobacco use disorder Alcohol use disorder Left thalamic infarction "July 2017" Diabetes mellitus, type II COPD (chronic obstructive pulmonary disease) Statin intolerance ASCVD (arteriosclerotic cardiovascular disease) Classic migraine H/O: CVA (cerebrovascular accident) "2005; residual R sided weakness" Dyslipidemia GERD (gastroesophageal reflux disease) Depression Family History Son Spherocytosis Other Heart disease Social History Smoking Status: Never smoker Tobacco Type: Cigarettes Cigarettes Per Day: 1 PPD; Second Hand Exposure: No; Do You Dip or Chew Tobacco: No; Hx Alcohol Use: Yes Alcohol type: beer Alcohol Intake Frequency: 4 or More x per/Week Alcohol Intake Frequency Comment: 5-6 beers/day Hx Substance Use: No Preferred Language: Mosotho Communication Ability: Effective Glass Or Mirror Inspector Required: No Beliefs That Will Affect Care: None marital status: Current Living Situation: Spouse Current Living Situation Comment: How many Children do You have: 3 Feels Safe at Home: Yes Assistive Devices: Walker Allergies Allergies Allergy/AdvReac Type Severity Reaction Status Date / Time ciprofloxacin Allergy Severe hives Verified 07/09/23 15:03 simvastatin AdvReac Intermediate MUSCLE Verified 07/09/23 15:03 PAIN/WEAKNESS [id number] Reductase AdvReac Intermediate MUSCLE Unverified 07/09/23 15:03 Inhibitor PAIN/WEAKNESS [Alcqyof-Hue-Xab Reductase Inhibitor] Home Meds Home Medications Medication Instructions Recorded Confirmed clopidogrel 75 mg tablet 75 mg PO QAM ##0 06/14/15 07/09/23 tamsulosin 0.4 mg capsule 0.4 mg PO Q OTHER DAY ##0 07/24/17 07/09/23 isosorbide mononitrate 60 mg 60 mg PO QAM #0 tabs 04/18/18 07/09/23 tablet,extended release 24 hr nitroglycerin 0.4 mg sublingual 0.4 mg sublingual DIRECTED PRN 04/18/18 07/09/23 tablet Chest Pain ##0 folic acid 400 mcg tablet 400 mcg PO DAILY ##0 04/22/18 07/09/23 thiamine HCl (vitamin B1) 100 mg 100 mg PO QAM ##0 04/22/18 07/09/23 tablet aspirin 81 mg tablet,delayed 81 mg PO QAM 10/02/18 07/09/23 release hydrocodone 5 mg-acetaminophen 325 1 tab PO TID PRN Pain 05/18/19 07/09/23 mg tablet ondansetron HCl 4 mg tablet 4 mg PO Q6H PRN Nausea 06/15/21 07/09/23 acetaminophen 500 mg tablet 500 mg PO Q4 PRN Pain 11/27/22 07/09/23 albuterol sulfate 90 mcg/actuation 2 puff inhalation Q4 PRN Wheezing 11/27/22 07/09/23 aerosol inhaler cholecalciferol (vitamin D3) 50 50 mcg PO QAM 11/27/22 07/09/23 mcg (2,000 unit) capsule (Vitamin D3) duloxetine 30 mg capsule,delayed 30 mg PO QAM 11/27/22 07/09/23 release duloxetine 30 mg capsule,delayed 60 mg PO HS 11/27/22 07/09/23 release finasteride 5 mg tablet 5 mg PO QAM 11/27/22 07/09/23 omeprazole 20 mg capsule,delayed 20 mg PO QAM 11/27/22 07/09/23 release alirocumab 75 mg/mL subcutaneous 75 mg subcut .1407/09/23 07/09/23 pen injector (Praluent Pen) lasmiditan 50 mg tablet (Reyvow) 50 mg PO DIRECTED PRN Migraine 07/09/23 07/09/23 Headache Previous Rx's Medication Instructions Recorded levetiracetam 500 mg tablet 500 mg PO BID #60 tabs 12/12/22 (Keppra) amlodipine 2.5 mg tablet 2.5 mg PO DAILY #30 tabs 07/10/23 metoprolol succinate 25 mg 25 mg PO QAM #30 tabs 07/10/23 tablet,extended release 24 hr Results & Data (ED) Vital Signs Vital Signs - 24 hr 03/14/24 18:18 03/14/24 18:23 03/14/24 18:29 Temperature 36.5 C Temperature Source Oral Pulse Rate 70 68 Pulse Rate [Apical] Pulse Rhythm [Apical] Pulse Strength [Apical] Respiratory Rate 19 Respiratory Effort / Characteristics Non-Labored Spontaneous Short of Breath Respiratory Depth Normal Blood Pressure 175/90 H Blood Pressure [Right Arm] Blood Pressure Mean 118 Blood Pressure Mean [Right Arm] Pulse Oximetry 98 Oxygen Delivery Method Room Air Sepsis Recent Fever Within 48 Hours No Sepsis New/Unexplained Change in Mental Status N/A Sepsis Action Taken by Nursing No Action Required 03/14/24 18:30 03/14/24 19:00 03/14/24 19:00 Temperature Temperature Source Pulse Rate 65 Pulse Rate [Apical] 70 Pulse Rhythm [Apical] Regular Pulse Strength [Apical] Normal Respiratory Rate 24 18 Respiratory Effort / Characteristics Non-Labored Spontaneous Respiratory Depth Normal Blood Pressure 184/99 H Blood Pressure [Right Arm] 180/92 H Blood Pressure Mean 127 Blood Pressure Mean [Right Arm] 121 Pulse Oximetry 97 Oxygen Delivery Method Room Air Sepsis Recent Fever Within 48 Hours Sepsis New/Unexplained Change in Mental Status Sepsis Action Taken by [facility] Medications Current Medication List: was personally reviewed by me Laboratory Data Attestation: I reviewed the patient's lab results. 03/14/24 17:58 03/14/24 17:58 Lab Results 03/14/24 03/14/24 Range/Units 17:58 18:15 WBC 8.18 (4.8-10.8) K/ul RBC 4.46 L (4.70-6.10) M/uL Hgb 14.2 (14.0-18.0) g/dl Hct 41.7 L (42.0-52.0) % MCV 93.5 (80.0-100.0) fL MCH 31.8 (25.0-34.0) pg MCHC 34.1 (32.0-36.0) g/dL RDW Std Deviation 41.3 (36.4-46.3) fL RDW Coeff of Keny 11.9 (11.5-14.5) % Plt Count 229 (130-400) K/uL MPV 8.4 L (9.4-12.4) fL Immature Gran % (Auto) 0.9 % Neut % (Auto) 67.2 % Lymph % (Auto) 22.1 % Coke % (Auto) 7.3 % Eos % (Auto) 1.5 % Baso % (Auto) 1.0 % Neut # (Auto) 5.50 (1.40-6.50) K/uL Lymph # (Auto) 1.81 (1.20-3.40) K/uL Coke # (Auto) 0.60 H (0.11-0.59) K/uL Eos # (Auto) 0.12 (0.00-0.50) K/uL Baso # (Auto) 0.08 (0.00-0.20) K/uL Immature Gran # (Auto) 0.07 (0.01-0.20) K/uL PT 10.4 (9.0-12.0) Seconds INR 1.0 (0.9-1.1) APTT 26 (21-31) Seconds PTT Ratio 1.0 Sodium 127 L (136-145) mmol/L Potassium 3.7 (3.5-5.1) mmol/L Chloride 92 L (98-107) mmol/L Carbon Dioxide 25 (21-32) mmol/L Anion Gap 10 (3-11) BUN 8 (6-23) mg/dl Creatinine 0.98 (0.6-1.4) mg/dl Est Cr Clr Drug Dosing 87.4 ml/min Est GFR ( Amer) 90.8 ml/min Est GFR (Non-Af Amer) 78.4 ml/min BUN/Creatinine Ratio 8.2 L (10-20) Glucose 125 H (70-99(Fasting)) mg/dl Calcium 9.6 (8.6-10.3) mg/dl Total Bilirubin 0.4 (0.2-1.0) mg/dl AST 48 H (13-39) U/L ALT 46 (7-52) U/L Alkaline Phosphatase 69 (34-104) U/L Troponin I High Sens 5.3 (0-20) pg/ml Total Protein 7.9 (6.0-8.3) gm/dl Albumin 4.6 (3.4-5.0) gm/dl Globulin 3.3 (2.5-4.0) gm/dl Albumin/Globulin Ratio 1.4 (0.9-2) Lipase 31 (11-82) U/L Urine Color Yellow Urine Appearance Clear (Clear) Urine pH 6.0 (4.5-7.5) Ur Specific Marion 1.007 (1.000-1.030) Urine Protein Negative (Negative) Urine Glucose (UA) Negative (Negative) Urine Ketones Negative (Negative) Urine Blood Negative (Negative) Urine Nitrite Negative (Negative) Urine Bilirubin Negative (Negative) Urine Urobilinogen Negative (Negative) Ur Leukocyte Esterase 1+ H (Negative) Urine WBC (Auto) 6-10 H (0-5) /hpf Urine RBC (Auto) 0-2 (0-2) /hpf U Hyaline Cast (Auto) 0-2 (0-2) /lpf U Epithel Cells (Auto) 0-2 (0-2) /hpf Urine Bacteria (Auto) None Seen (None Seen) Imaging Data Attestation: I personally reviewed and interpreted this imaging study as follows: My Impression: 1 view chest x-ray was obtained. My interpretation is no free air or definite infiltrate, final report below. Radiologist's Impression: Chest X-Ray 03/14/24 18:11 XR chest 1V portable HISTORY: 68 years-old Male Chest pain, nonspecific COMPARISON: 12/25/2023 TECHNIQUE: AP view of the chest FINDINGS: Cardiomediastinal and hilar silhouettes are within normal limits. Lungs are clear. No pneumothorax or pleural effusion. Healed chronic right distal clavicular and rib fractures.. IMPRESSION: No acute process. ACT 112: Negative or not required by law. The above report was generated using voice recognition software. It may contain grammatical, syntax or spelling errors. Electronically signed by: Cristobal Morales M.D. 03/14/2024 6:35 PM Discharge Plan Visit Data Chief Complaint: Chest Pain Stated Complaint: CHEST PAIN ED Provider: Justyn Bain Discharge Problem: Chest pain, Acute hyponatremia Patient Disposition: Being Evaluated by Hospitalist Forms Stand Alone Forms: My [facility] Prescriptions Prescriptions: No Action clopidogrel 75 mg Tablet 75 mg PO QAM Qty: 0 tamsulosin 0.4 mg Capsule 0.4 mg PO Q OTHER DAY Qty: 0 isosorbide mononitrate 60 mg Tablet Extended Release 24 Hr 60 mg PO QAM Qty: 0 nitroglycerin 0.4 mg Tablet, Sublingual 0.4 mg Sublingual DIRECTED PRN (Reason: Chest Pain) Qty: 0 Rx Instructions: PLACE ONE TABLET UNDER THE TONGUE EVERY 5 MINUTES FOR UP TO 3 DOSES OVER 15 MINUTES IF NEEDED FOR CHEST PAIN folic acid 400 mcg Tablet 400 mcg PO DAILY Qty: 0 thiamine HCl (vitamin B1) 100 mg Tablet 100 mg PO QAM Qty: 0 aspirin 81 mg Tablet,Delayed Release (Dr/Ec) 81 mg PO QAM hydrocodone-acetaminophen 5-325 mg Tablet 1 tab PO TID PRN (Reason: Pain) ondansetron HCl 4 mg tablet 4 mg PO Q6H PRN (Reason: Nausea) omeprazole 20 mg capsule,delayed release(DR/EC) 20 mg PO QAM duloxetine 30 mg capsule,delayed release(DR/EC) 30 mg PO QAM finasteride 5 mg tablet 5 mg PO QAM duloxetine 30 mg capsule,delayed release(DR/EC) 60 mg PO HS albuterol sulfate 90 mcg/actuation HFA aerosol inhaler 2 puff INHALATION Q4 PRN (Reason: Wheezing) acetaminophen 500 mg Tablet 500 mg PO Q4 PRN (Reason: Pain) cholecalciferol (vitamin D3) [Vitamin D3] 50 mcg (2,000 unit) Capsule 50 mcg PO QAM levetiracetam [Keppra] 500 mg tablet 500 mg PO BID Qty: 60 0RF Praluent Pen 75 mg/mL pen injector 75 mg SUBCUT .14DAYS Reyvow 50 mg tablet 50 mg PO DIRECTED PRN (Reason: Migraine Headache) metoprolol succinate 25 mg Tablet Extended Release 24 Hr 25 mg PO QAM Qty: 30 0RF amlodipine 2.5 mg tablet 2.5 mg PO DAILY Qty: 30 0RF Referrals Referrals: Terry Resendez MD [Primary Care Provider] - Discharge Problem: Chest pain Qualifiers: Chest pain type: unspecified Qualified Code(s): R07.9 - Chest pain, unspecified
--- NOTE | 2024-03-14 18:36 | XRay Report ---
XR chest 1V portable HISTORY: 68 years-old Male Chest pain, nonspecific COMPARISON: 12/25/2023 TECHNIQUE: AP view of the chest FINDINGS: Cardiomediastinal and hilar silhouettes are within normal limits. Lungs are clear. No pneumothorax or pleural effusion. Healed chronic right distal clavicular and rib fractures.. IMPRESSION: No acute process. ACT 112: Negative or not required by law. The above report was generated using voice recognition software. It may contain grammatical, syntax o r spelling errors. Electronically signed by: Cristobal Morales M.D. 03/14/2024 6:35 PM
[2024-03-14 18:38] LABS: Basophils # (auto) 0.08 K/uL (0.00-0.20); Eosinophils # (auto) 0.12 K/uL (0.00-0.50); Eosinophils % (auto) 1.5 %; Hematocrit (blood only) 41.7 % (42.0-52.0); Hemoglobin 14.2 g/dl (14.0-18.0); Immature Granulocytes # (auto) 0.07 K/uL (0.01-0.20); Immature Granulocytes % (auto) 0.9 %; Lymphocytes # (auto) 1.81 K/uL (1.20-3.40); Lymphocytes % (auto) 22.1 %; Mean Corpuscular Hemoglobin 31.8 pg (25.0-34.0); Mean Corpuscular Hgb Conc 34.1 g/dL (32.0-36.0); Mean Corpuscular Volume 93.5 fL (80.0-100.0); Mean Platelet Volume 8.4 fL (9.4-12.4); Monocytes % (auto) 7.3 %; Neutrophils % (auto) 67.2 %; Platelet Count 229 K/uL (130-400); RDW Coefficient of Variation 11.9 % (11.5-14.5); RDW Standard Deviation 41.3 fL (36.4-46.3); Red Blood Count 4.46 M/uL (4.70-6.10); White Blood Count 8.18 K/ul (4.8-10.8)
[2024-03-14 18:40] LABS: Appearance Urine Clear (Clear); Bacteria Urine Automated None Seen (None Seen); Bilirubin Urine Negative (Negative); Blood Urine Negative (Negative); Cast Urine Automated 0-2 /lpf (0-2); Color Urine Yellow; Epithelial Cell Urine Auto 0-2 /hpf (0-2); Glucose Urine UA Negative (Negative); Ketones Urine Negative (Negative); Leukocyte Esterase Urine 1+ (Negative); Nitrite Urine Negative (Negative); Protein Urine Negative (Negative); RBC Urine Automated 0-2 /hpf (0-2); Specific Gravity Urine 1.007 (1.000-1.030); Urobilinogen Urine Negative (Negative)
[2024-03-14 18:50] LABS: Albumin Globulin Ratio 1.4 (0.9-2); Albumin Level 4.6 gm/dl (3.4-5.0); BUN Creatinine Ratio 8.2 (10-20); Bilirubin,Total 0.4 mg/dl (0.2-1.0); Calcium 9.6 mg/dl (8.6-10.3); Creatinine Clr Calc Pharmacy 87.4 ml/min; Est GFR (African American) 90.8 ml/min; Est GFR (Non-African American) 78.4 ml/min; Globulin 3.3 gm/dl (2.5-4.0); Potassium 3.7 mmol/L (3.5-5.1); Total Protein 7.9 gm/dl (6.0-8.3)
[2024-03-14 18:56] LABS: Troponin I High Sensitivity 5.3 pg/ml (0-20)
[2024-03-14 19:03] LABS: Partial Thromboplastin Time 26 Seconds (21-31); Prothrombin Time 10.4 Seconds (9.0-12.0)
[2024-03-14 21:40] LABS: D Dimer 1530 ug/L FEU (0-500)
[2024-03-14] MEDS: OPTIRAY 320 125ml IV ONE (22:08)
[2024-03-14] MEDS ORDERED: HYDROCODONE/ACETAMOPHEN 5/325MG TAB PO PRN (23:04)
[2024-03-14] MEDS ORDERED: NITROGLYCERIN SL 0.4 MG/TAB TAB SL PRN (23:04)
[2024-03-14] MEDS ORDERED: Ativan IV Alcohol Withdrawal--Active Protocol IV PRN (23:04)
[2024-03-14] MEDS ORDERED: POLYETHYLENE (MIRALAX) 17 GM PACK PO PRN (23:04)
[2024-03-14] MEDS ORDERED: ALBUTEROL HFA 8 GM INHALER INH PRN (23:04)
[2024-03-14] MEDS ORDERED: ACETAMINOPHEN 325 MG TAB PO PRN (23:04)
[2024-03-14] MEDS ORDERED: LORazepam 1 MG in SYRINGE 0.5 ML IV PRN (23:04)
[2024-03-14] MEDS ORDERED: GABAPENTIN 1200MG ALCOHOL WITHDRAWAL LOAD PO STA (23:04)
[2024-03-14] MEDS ORDERED: LORazepam 2 MG in SYRINGE 1 ML IV PRN (23:04)
[2024-03-14] MEDS ORDERED: LORazepam 3 MG in SYRINGE 1.5 ML IV PRN (23:04)
[2024-03-14] MEDS ORDERED: ONDANSETRON INJ 2 MG/ML 2 ML VIAL IV PRN (23:04)
[2024-03-14] MEDS: MULTI-VITAMIN INFUSION 10 ML, THIAMINE HCL 100 MG, FOLIC ACID 1 MG in SODIUM CHLORIDE 0... IV ONE (23:35)
[2024-03-14] MEDS: GABAPENTIN 600 MG TAB PO ONE (23:39)
[2024-03-14] MEDS: levETIRAcetam 500 MG TAB PO SCH (23:40)
[2024-03-14] MEDS: DULoxetine HCL 30 MG CAP PO SCH (23:40)
--- NOTE | 2024-03-15 00:02 | History & Physical Report ---
Date of Service March 14, 2024 Assessment & Plan (1) Chest pain: Plan: 68-year-old male with past medical history significant for type 2 diabetes, hyperlipidemia, diabetic peripheral angiopathy, COPD, internal carotid artery occlusion, thoracic aortic dissection, history of CVA, hypertension, CAD s/p stent, history of bradycardia, vitamin D deficiency, urinary retention, BPH, chronic bilateral low back pain, lumbar spondylosis, Grassman syndrome, classic migraine, history of seizures, depression ongoing tobacco use and alcohol use comes with chest pains. Patient states around 3 PM while he was resting he noticed left-sided chest pain radiating to left shoulder associated with nausea, sweating and shortness of breath and pain was very severe. EMS was called and en route was given aspirin. By time he came to the ER the pain got resolved. The pain lasted for about couple of hours. And he is having this pain on and off for last couple of days. And he took nitro last couple of days but did not take today. As per since Thursday is somewhat wobbly while walking. Patient currently has a migraine headache. States his right eye vision is always blurry. No runny nose. Some cough. Currently no chest pain or shortness of breath. Complains of mild abdominal pain. Normal bowel and bladder movements. Appetite is okay. But states he chokes on food a lot. Still smoking 1 pack of cigarettes daily and drinking 6 beers daily. Currently hemodynamics are okay.Patient fell a couple of days ago and has bruise on his right lower valiente region. Chest pain History of CAD s/p stent Chronic RCA occlusion attempted RESEARCH PROGRAM COORDINATOR PCI which was partially successful, plain balloon angioplasty performed but stent could not be accommodated and postprocedure had CVA Initial troponin and EKG okay. Will follow serial cardiac enzymes and echo Monitoring telemetry Cardiology consult in a.m. History of CAD status post stent Chronic RCA occlusion attempted RESEARCH PROGRAM COORDINATOR PCI which was partially successful, plain balloon angioplasty performed but stent could not be accommodated On aspirin, Plavix, Imdur, metoprolol succinate and Repatha History of embolic CVA On aspirin Plavix and Repatha Ambulatory dysfunction PT OT when stable Questionable aspiration Speech evaluation Chronic hyponatremia Sodium 127 Getting gentle fluids Mostly from ongoing alcoholism Follow serum osmolality, urine osmolality and urine sodium levels Can consider nephrology consult Chronic headaches Will monitor Alcoholism states gets withdrawal if no alcohol Banana bag Alcohol withdrawal protocol with gabapentin and IV Ativan as needed Continue home thiamine and folic acid History of carotid artery disease with right carotid stent Left internal carotid artery occlusion On aspirin and Plavix and Repatha Hyperlipidemia Intolerance to statins and gemfibrozil and fenofibrate Currently on Repatha Hypertension On amlodipine, Imdur and metoprolol succinate We will monitor BPH On Flomax and finasteride Will monitor Tobacco abuse Needs counseling Elevated D-dimer Complains of shortness of breath CTA chest unremarkable History of seizures disorder On Keppra Chronic pain Continue home pain medications Depression On Cymbalta DVT prophylaxis SCDs Disposition Telemetry Full code. History of Present Illness Chief Complaint: Chest pain Primary Care Provider: Terry Resendez MD 68-year-old male with past medical history significant for type 2 diabetes, hyperlipidemia, diabetic peripheral angiopathy, COPD, internal carotid artery occlusion, thoracic aortic dissection, history of CVA, hypertension, CAD s/p stent, history of bradycardia, vitamin D deficiency, urinary retention, BPH, chronic bilateral low back pain, lumbar spondylosis, Grassman syndrome, classic migraine, history of seizures, depression ongoing tobacco use and alcohol use comes with chest pains. Patient states around 3 PM while he was resting he noticed left-sided chest pain radiating to left shoulder associated with nausea, sweating and shortness of breath and pain was very severe. EMS was called and en route was given aspirin. By time he came to the ER the pain got resolved. The pain lasted for about couple of hours. And he is having this pain on and off for last couple of days. And he took nitro last couple of days but did not take today. As per since Thursday is somewhat wobbly while walking. Patient currently has a migraine headache. States his right eye vision is always blurry. No runny nose. Some cough. Currently no chest pain or shortness of breath. Complains of mild abdominal pain. Normal bowel and bladder movements. Appetite is okay. But states he chokes on food a lot. Still smoking 1 pack of cigarettes daily and drinking 6 beers daily. Currently hemodynamics are okay.Patient fell a couple of days ago and has bruise on his right lower valiente region. Past medical history. As mentioned above Past surgical history. Cardiac cath. S/p cardiac stent. Colonoscopy. Left lateral elbow ligament repair. Right rotator cuff repair. Left rotator cuff repair. Bilateral hip replacement. Prostate laser vaporization. Tonsillectomy. Right carotid stent. Social history. . Smokes 1 pack a day for last 40 years. Drinks 6-7 beers daily. No drug use. Family history. Father had arthritis. Cancer. Heart disorder. Mother had arthritis. CABG. Sister has asthma. Daughter has arthritis. Allergies Allergy/AdvReac Type Severity Reaction Status Date / Time ciprofloxacin Allergy Severe hives Verified 03/14/24 20:47 simvastatin AdvReac Intermediate MUSCLE Verified 03/14/24 20:47 PAIN/WEAKNESS [id number] Reductase AdvReac Intermediate MUSCLE Unverified 03/14/24 20:47 Inhibitor PAIN/WEAKNESS [[id number]-Azp Reductase Inhibitor] Home Medications Medication Instructions Recorded Confirmed Type clopidogrel 75 mg tablet 75 mg PO QAM ##0 06/14/15 03/14/24 History tamsulosin 0.4 mg capsule 0.4 mg PO Q OTHER DAY ##0 07/24/17 03/14/24 History isosorbide mononitrate 60 mg 60 mg PO QAM #0 tabs 04/18/18 03/14/24 History tablet,extended release 24 hr nitroglycerin 0.4 mg sublingual 0.4 mg sublingual DIRECTED PRN 04/18/18 03/14/24 History tablet Chest Pain ##0 thiamine HCl (vitamin B1) 100 mg 100 mg PO QAM ##0 04/22/18 03/14/24 History tablet aspirin 81 mg tablet,delayed 81 mg PO QAM 10/02/18 03/14/24 History release hydrocodone 5 mg-acetaminophen 325 1 tab PO TID PRN Pain 05/18/19 03/14/24 History mg tablet ondansetron HCl 4 mg tablet 4 mg PO Q6H PRN Nausea 06/15/21 03/14/24 History acetaminophen 500 mg tablet 500 - 1,000 mg PO Q6 PRN Pain 11/27/22 03/14/24 History albuterol sulfate 90 mcg/actuation 2 puff inhalation Q4 PRN Wheezing 11/27/22 03/14/24 History aerosol inhaler cholecalciferol (vitamin D3) 50 50 mcg PO QAM 11/27/22 03/14/24 History mcg (2,000 unit) capsule (Vitamin D3) duloxetine 30 mg capsule,delayed 30 mg PO AMPM 11/27/22 03/14/24 History release finasteride 5 mg tablet 5 mg PO QAM 11/27/22 03/14/24 History omeprazole 20 mg capsule,delayed 20 mg PO Q OTHER DAY 11/27/22 03/14/24 History release levetiracetam 500 mg tablet 500 mg PO BID #60 tabs 12/12/22 03/14/24 Rx (Keppra) lasmiditan 50 mg tablet (Reyvow) 50 mg PO DIRECTED PRN Migraine 07/09/23 03/14/24 History Headache metoprolol succinate 25 mg 25 mg PO QAM #30 tabs 07/10/23 03/14/24 Rx tablet,extended release 24 hr amlodipine 5 mg tablet 5 mg PO QPM 03/14/24 03/14/24 History tramadol 50 mg tablet 50 mg PO Q6 PRN Pain 03/14/24 03/14/24 History Past Med/Surg History Problem List Acute hyponatremia (Acute) Chest pain (Acute) Uncontrolled hypertension Demand ischemia Elevated troponin Vasovagal syncope Chest pain (Acute) H/O carotid stenosis "s/p EDITH stent placement 08/23/2013; Dr. 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) Thoracic compression fracture (Acute) Fracture of ankle, trimalleolar, right, open (Acute) Previous back surgery (Chronic) Medical History Bacteremia Hyponatremia Closed fracture of right iliac wing Closed fracture of left inferior pubic ramus Closed fracture of superior ramus of left pubis Closed fracture of right superior pubic ramus Closed fracture of right inferior pubic ramus Sacral fracture, closed Hypertension History of aortic dissection Tobacco use disorder Alcohol use disorder Left thalamic infarction "July 2017" Diabetes mellitus, type II COPD (chronic obstructive pulmonary disease) Statin intolerance ASCVD (arteriosclerotic cardiovascular disease) Classic migraine H/O: CVA (cerebrovascular accident) "2005; residual R sided weakness" Dyslipidemia GERD (gastroesophageal reflux disease) Depression Family History Son Spherocytosis Other Heart disease Social History Smoking Status: Current every day smoker Tobacco Type: Cigarettes Cigarettes Per Day: .5ppd; Second Hand Exposure: No; Do You Dip or Chew Tobacco: No; Tobacco Cessation Education Requested by Patient: No Hx Alcohol Use: Yes Alcohol type: beer Alcohol Intake Frequency: 4 or More x per/Week Alcohol Intake Frequency Comment: 5-6 beers/day Hx Substance Use: No Preferred Language: [place] Citizen Communication Ability: Effective Communication Ability Comment: occassional expressive aphasia from prior CVA Assembler Camper Required: No Beliefs That Will Affect Care: None marital status: Current Living Situation: Spouse Current Living Situation Comment: How many Children do You have: 3 Other Information That Helps Us Care for You: No Feels Safe at Home: Yes Safety Concerns: Feels Safe At This Time Assistive Devices: Walker Review of Systems Review of Systems: All systems reviewed & are unremarkable except as noted in HPI & below Physical Exam Physical Exam: General- Not in distress Head- atraumatic Eyes- PERRL ENT- oropharynx clear Neck- supple, no JVD. Lungs- clear to auscultation no wheezing or crackles Heart- regular rhythm; no murmur, no gallop. Abdomen- normal bowel sounds, soft, mild diffuse discomfort., no distension Extremities- no pretibial edema, no erythema seen Neuro- alert, oriented PERRL, no facial palsy; no dysarthria; moves extremities Skin- Bruise seen on right lower valiente Results & Data Results & Data Vital Signs (Past 12 Hours) Vital Signs Temp Pulse Pulse Resp BP BP Pulse Ox 03/14/24 19:00 70 18 180/92 H 03/14/24 19:00 97 03/14/24 18:30 65 24 184/99 H 03/14/24 18:23 36.5 C 68 19 175/90 H 98 03/14/24 18:18 70 O2 Del Method 03/14/24 19:00 03/14/24 19:00 Room Air 03/14/24 18:30 03/14/24 18:23 Room Air 03/14/24 18:18 Diagnostic Findings Laboratory Results WBC 8.18 K/ul (4.8-10.8) 03/14/24 17:58 RBC 4.46 M/uL (4.70-6.10) L 03/14/24 17:58 Hgb 14.2 g/dl (14.0-18.0) 03/14/24 17:58 Hct 41.7 % (42.0-52.0) L 03/14/24 17:58 MCV 93.5 fL (80.0-100.0) 03/14/24 17:58 MCH 31.8 pg (25.0-34.0) 03/14/24 17:58 MCHC 34.1 g/dL (32.0-36.0) 03/14/24 17:58 RDW Std Deviation 41.3 fL (36.4-46.3) 03/14/24 17:58 RDW Coeff of Keny 11.9 % (11.5-14.5) 03/14/24 17:58 Plt Count 229 K/uL (130-400) 03/14/24 17:58 MPV 8.4 fL (9.4-12.4) L 03/14/24 17:58 Immature Gran % (Auto) 0.9 % 03/14/24 17:58 Neut % (Auto) 67.2 % 03/14/24 17:58 Lymph % (Auto) 22.1 % 03/14/24 17:58 [place] % (Auto) 7.3 % 03/14/24 17:58 Eos % (Auto) 1.5 % 03/14/24 17:58 Baso % (Auto) 1.0 % 03/14/24 17:58 Neut # (Auto) 5.50 K/uL (1.40-6.50) 03/14/24 17:58 Lymph # (Auto) 1.81 K/uL (1.20-3.40) 03/14/24 17:58 [place] # (Auto) 0.60 K/uL (0.11-0.59) H 03/14/24 17:58 Eos # (Auto) 0.12 K/uL (0.00-0.50) 03/14/24 17:58 Baso # (Auto) 0.08 K/uL (0.00-0.20) 03/14/24 17:58 Immature Gran # (Auto) 0.07 K/uL (0.01-0.20) 03/14/24 17:58 PT 10.4 Seconds (9.0-12.0) 03/14/24 17:58 INR 1.0 (0.9-1.1) 03/14/24 17:58 APTT 26 Seconds (21-31) 03/14/24 17:58 PTT Ratio 1.0 03/14/24 17:58 D-Dimer 1530 ug/L FEU (0-500) H* 03/14/24 20:55 Sodium 127 mmol/L (136-145) L 03/14/24 17:58 Potassium 3.7 mmol/L (3.5-5.1) 03/14/24 17:58 Chloride 92 mmol/L (98-107) L 03/14/24 17:58 Carbon Dioxide 25 mmol/L (21-32) 03/14/24 17:58 Anion Gap 10 (3-11) 03/14/24 17:58 BUN 8 mg/dl (6-23) 03/14/24 17:58 Creatinine 0.98 mg/dl (0.6-1.4) 03/14/24 17:58 Est Cr Clr Drug Dosing 87.4 ml/min 03/14/24 17:58 Est GFR ( Amer) 90.8 ml/min 03/14/24 17:58 Est GFR (Non-Af Amer) 78.4 ml/min 03/14/24 17:58 BUN/Creatinine Ratio 8.2 (10-20) L 03/14/24 17:58 Glucose 125 mg/dl (70-99(Fasting)) H 03/14/24 17:58 Calcium 9.6 mg/dl (8.6-10.3) 03/14/24 17:58 Total Bilirubin 0.4 mg/dl (0.2-1.0) 03/14/24 17:58 AST 48 U/L (13-39) H 03/14/24 17:58 ALT 46 U/L (7-52) 03/14/24 17:58 Alkaline Phosphatase 69 U/L (34-104) 03/14/24 17:58 Troponin I High Sens 5.2 pg/ml (0-20) 03/14/24 20:55 Total Protein 7.9 gm/dl (6.0-8.3) 03/14/24 17:58 Albumin 4.6 gm/dl (3.4-5.0) 03/14/24 17:58 Globulin 3.3 gm/dl (2.5-4.0) 03/14/24 17:58 Albumin/Globulin Ratio 1.4 (0.9-2) 03/14/24 17:58 Lipase 31 U/L (11-82) 03/14/24 17:58 Urine Color Yellow 03/14/24 18:15 Urine Appearance Clear (Clear) 03/14/24 18:15 Urine pH 6.0 (4.5-7.5) 03/14/24 18:15 Ur Specific [place] 1.007 (1.000-1.030) 03/14/24 18:15 Urine Protein Negative (Negative) 03/14/24 18:15 Urine Glucose (UA) Negative (Negative) 03/14/24 18:15 Urine Ketones Negative (Negative) 03/14/24 18:15 Urine Blood Negative (Negative) 03/14/24 18:15 Urine Nitrite Negative (Negative) 03/14/24 18:15 Urine Bilirubin Negative (Negative) 03/14/24 18:15 Urine Urobilinogen Negative (Negative) 03/14/24 18:15 Ur Leukocyte Esterase 1+ (Negative) H 03/14/24 18:15 Urine WBC (Auto) 6-10 /hpf (0-5) H 03/14/24 18:15 Urine RBC (Auto) 0-2 /hpf (0-2) 03/14/24 18:15 U Hyaline Cast (Auto) 0-2 /lpf (0-2) 03/14/24 18:15 U Epithel Cells (Auto) 0-2 /hpf (0-2) 03/14/24 18:15 Urine Bacteria (Auto) None Seen (None Seen) 03/14/24 18:15 Impressions Chest X-Ray 03/14/24 18:11 XR chest 1V portable HISTORY: 68 years-old Male Chest pain, nonspecific COMPARISON: 12/25/2023 TECHNIQUE: AP view of the chest FINDINGS: Cardiomediastinal and hilar silhouettes are within normal limits. Lungs are clear. No pneumothorax or pleural effusion. Healed chronic right distal clavicular and rib fractures.. IMPRESSION: No acute process. ACT 112: Negative or not required by law. The above report was generated using voice recognition software. It may contain grammatical, syntax or spelling errors. Electronically signed by: Cristobal Morales M.D. 03/14/2024 6:35 PM Chest CTA 03/14/24 21:49 Exam(s): CTA CHEST IV Amt: 119 ml optiray 320 EXAM: CT Angiography Chest With Intravenous Contrast CLINICAL HISTORY: Reason for exam: PE. TECHNIQUE: Axial computed tomographic angiography images of the chest with intravenous contrast. Automated exposure control was utilized for the study. A dose lowering technique was utilized adhering to the principles of ALARA. MIP reconstructed images were created and reviewed. COMPARISON: No relevant prior studies available. FINDINGS: Pulmonary arteries: Unremarkable. No acute pulmonary embolism. Aorta: Atherosclerotic changes of the aorta. No thoracic aortic aneurysm. Lungs: Unremarkable. No mass. No consolidation. Pleural space: Unremarkable. No significant effusion. No pneumothorax. Heart: Unremarkable. No cardiomegaly. No significant pericardial effusion. No evidence of RV dysfunction. Bones/joints: Degenerative changes of the spine. No acute fracture. No dislocation. Soft tissues: Unremarkable. Lymph nodes: Unremarkable. No enlarged lymph nodes. Liver: Hepatic steatosis. IMPRESSION: No acute pulmonary embolism. Electronically signed by: Magdaleno Buchanan MD 03/15/24 00:06 AM ECG Additional Comments: ECG. Normal sinus rhythm rate of 68. Nonspecific ST abnormality. No significant change was found. QTc 446. Code Status & VTE Plan VTE Prophylaxis Plan VTE Prophylaxis will be ordered: Yes (1) Chest pain Chest pain type: unspecified Qualified Code(s): R07.9 - Chest pain, unspecified
--- NOTE | 2024-03-15 00:07 | CT Scan Report ---
Exam(s): CTA CHEST IV Amt: 119 ml optiray 320 EXAM: CT Angiography Chest With Intravenous Contrast CLINICAL HISTORY: Reason for exam: PE. TECHNIQUE: Axial computed tomographic angiography images of the chest with intravenous contrast. Automated exposure control was utilized for the study. A dose lowering technique was utilized adhering to the principles of ALARA. MIP reconstructed images were created and reviewed. COMPARISON: No relevant prior studies available. FINDINGS: Pulmonary arteries: Unremarkable. No acute pulmonary embolism. Aorta: Atherosclerotic changes of the aorta. No thoracic aortic aneurysm. Lungs: Unremarkable. No mass. No consolidation. Pleural space: Unremarkable. No significant effusion. No pneumothorax. Heart: Unremarkable. No cardiomegaly. No significant pericardial effusion. No evidence of RV dysfunction. Bones/joints: Degenerative changes of the spine. No acute fracture. No dislocation. Soft tissues: Unremarkable. Lymph nodes: Unremarkable. No enlarged lymph nodes. Liver: Hepatic steatosis. IMPRESSION: No acute pulmonary embolism. Electronically signed by: Magdaleno Buchanan MD 03/15/24 00:06 AM
[2024-03-15] MEDS: SODIUM CHLORIDE 0.9% 1,000 ML IV SCH (01:38)
[2024-03-15] MEDS: GABAPENTIN 600 MG TAB PO SCH ×2 (03:36→16:30)
--- OUTSIDE RECORDS SUMMARY | 2024-03-15 04:17 | External Medical Summary | Summary of Care ---
Author Name Unknown Organization [facility] Address [address] [place] [address] Phone [phone] Care Team Providers Care Poolroom Table Attendant Name Role Phone Terry Resendez MD Primary Care Provider Encounter Details Date Type Department Care Team (Late st Contact Info) Description 10/22/[address] [facility] [address] [place] [address] Terry Resendez MD [address] [place] [address] Allergies Active Allergy Reactions Criticality Noted Date Comments Ciprofloxacin Hives 09/01/2017 Statins 11/15/2020 All statins Simvastatin 05/07/2006 Severe myalgia's documented as of this encounter (statuses as of 01/21/2024) Medications Medication Sig Dispensed Refills Start Date End Date Status ASPIRIN EC 81 MG PO TBECIndications:Cor onary atherosclerosis of deering coronary artery Take one pill daily 100 3 07/20/20 09 Active VITAMIN B-1 100 MG PO TABS 1 tab daily. Active FOLIC ACID 400 MCG PO TABS daily Active Cholecalciferol (VITAMIN D3) 2000 units Capsule Take 1 Capsule by mouth in the morning. Active Acetaminophen 500 MG Oral Tablet Take 1 Tablet by mouth every 4 hours as needed for Pain. As needed 30 Tab 06/15/20 18 Active Nitroglycerin 0.4 MG Sublingual Tablet Sublingual (Nitrostat) Place under the tongue 1 Tablet every 5 minutes as needed for Pain, Chest. up to 3 doses in 15 minutes 25 Tablet 11 12/03/19 22 Active Tamsulosin HCl 0.4 MG Oral Capsule (Flomax)Indications :Obstructive uropathy TAKE 1 CAPSULE BY MOUTH EVERY OTHER DAY 45 Capsule 3 05/08/20 23 Active Omeprazole 20 MG Oral Capsule Delayed Release (PriLOSEC) TAKE 1 CAPSULE BY MOUTH EVERY MORNING 90 Capsule 3 07/27/20 23 Active amLODIPine Besylate 5 MG Oral Tablet (Norvasc) Take 1 Tablet by mouth in the morning. 90 Tablet 3 07/30/20 23 Active Metoprolol Succinate ER 25 MG Oral Tablet Extended Release 24 Hour (toPROL XL) Take 1 Tablet by mouth in the morning. 90 Tablet 3 08/10/20 23 024 Active Repatha SureClick 140 MG/ML Subcutaneous Solution Auto-injector (evolocumab) Inject 140 mg (1 pen) under the skin every 14 days. Remove from refrigerator 30 minutes prior to injection. 6 mL 3 08/20/20 Active Additional Information Patient not taking.Reported on 11/18/2023 Lasmiditan Succinate 50 MG Oral Tablet (Reyvow) Take one at onset of migraine. Max 1 dose in 24hours 10 Tablet 5 08/25/19 24 Active Isosorbide Mononitrate ER 60 MG Oral Tablet Extended Release 24 Hour (Imdur)Indications: Exertional angina (HCC) Take 1 Tablet by mouth in the morning. 90 Tablet 3 08/26/19 24 Active levETIRAcetam 500 MG Oral Tablet (Keppra)Indications :Seizure, grand mal (HCC) 1 twice a day (dose increase) 180 Tablet 1 10/16/19 24 Active Clopidogrel Bisulfate 75 MG Oral Tablet (pLAVix)Indications :Acute ischemic stroke (HCC) Take 1 Tablet by mouth in the morning. 90 Tablet 3 10/16/19 24 Active Finasteride 5 MG Oral Tablet (Proscar)Indication s:Uropathy, obstructive Take 1 Tablet by mouth in the morning. 90 Tablet 3 10/16/19 24 Active Additional Information Patient taking differently:5 mg Oral Daily(AM),In the evening, Reported on 10/21/2023 DULoxetine HCl 30 MG Oral Capsule Delayed Release Particles (Cymbalta)Indicatio ns:Current moderate episode of major depressive disorder, unspecified whether recurrent (HCC) 1 cap in AM and 1 cap in PM. Do not cut, crush or chew 180 Capsule 3 10/22/19 24 Active Isometheptene-Dichl oral-APAP 65-100-325 MG Oral Capsule Two at onset of migraine may repeat 1 every 1 hour maximum of 4 in 24 hours. Compounded formulation 30 Capsule 5 10/30/19 22 024 Discontinued(Fo rmulary/Cost) Ondansetron HCl 4 MG Oral Tablet (Zofran)Indications :Nausea without vomiting TAKE ONE TABLET BY MOUTH EVERY 6 HOURS NEEDED FOR NAUSEA. 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 30 day RX 90 Tablet 09/30/19 24 024 Discontinued(Re fill) DULoxetine HCl 30 MG Oral Capsule Delayed Release Particles (Cymbalta)Indicatio ns:Current moderate episode of major depressive disorder, unspecified whether recurrent (HCC) 1 cap in AM and 2 caps in PM. Do not cut, crush or chew 270 Capsule 3 10/16/19 24 024 Discontinued Erythromycin 5 MG/GM Ophthalmic OintmentIndications :Conjunctivitis of both eyes, unspecified conjunctivitis type Instill into eye 4 times a day for 10 days. Apply to affected eye(s) until redness and discharge resolved. 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 Nocturia 11/23/2023 Major depressive disorder, single episode, moder ate 10/16/2023 Seizure, grand mal 10/16/2023 Hemiplegia and hemiparesis f ollowing unspecified cerebrovascular [...] as of this encounter (statuses as of 01/21/2024) Resolved Problems Problem Noted Date Diagnosed Date [...] as of this encounter (statuses as of 01/21/2024) Immunizations Name Administration Dates Next Due Pneumococcal Conjugate Vacc, 13 Valent (Prevnar) 04/11/2020 Pneumococcal Polysaccharide PPV23 (Pneumovax) 08/05/2013 Seasonal Influenza, PF, 6 M & above, IM , (FluLaval or Fluzone) 06/19/2017 Seasonal Influenza, Quadriva lent, No Preserve, [...] or making decisions? (5 years old or older) Yes 07/26/2017 documented as of this encounter Miscellaneous Notes * Telephone Encounter - Terry Resendez MD - 10/22/2023 12:58 PM EST We will just go with Duloxetine 30mg twice daily. New script printed * Telephone Encounter - Massiel Adams LPN - 10/22/2023 9:17 AM EST [facility] called and the Pharmacist stated that for the Duloxetine 30 MG the patients insurancewill not pay for the prescription written as 3 times a day but will pay for the script if it is only twice per day. Pharmacy would like to know if provider can either send in a new script for 30 MG twice per day andthe amount of 60 capsules or would like to go through completing a prior auth to try and get the 3 times a day approved. documented in this encounter Plan of Treatment Upcoming Encounters Date Type Department Care Team (Latest Contact Info) Description 04/01/2024 11:49 AM EDT Hospital Encounter OR GL, Operating Room, [facility] - 4th Floor [address] [address] Seamus Calixto, DO [address] [address] 04/01/2024 11:49 AM EDT - 04/01/2024 12:30 PM EDT Surgery OR GL, Operating Room, [facility] - 4th Floor [address] [place] [address] Seamus Calixto DO [address] [facility] [address] COLONOSCOPY FLEXIBLE PROXIMAL DIAGNOSTIC 04/15/2024 2:00 PM EDT Office Visit [facility] [address] [place] [id number] Terry Resendez MD [address] [place] [address] 04/26/2024 8:15 AM EDT Office Visit Urology, [facility] [address] [place] [address] Mauricio Ramos MD [address] [address] 05/02/2024 3:40 PM EDT Office Visit Neurology [facility] [address] [facility] [place] [address] Elsie Capone MD [address] [place] [address] 06/06/2024 3:30 PM EDT Office Visit Cardiology, [facility] [address] [place] [address] Nargis Power CRNP [address] [place] [address] Scheduled Procedures Name Priority Associated Diagnoses Date/Ti me COLONOSCOPY FLEXIBLE PROXIMAL DIAGNOSTIC Recall History of colonic polyps 04/01/2024 11:49 AM EDT Health Maintenance Due Date Last Done Comments DISCUSS TOBACCO CESSATION (REFER TO SMARTSET #9171) 1954 Alpha-1 Antitrypsin 1972 Cologuard 1999 Fecal Occult Blood Test 1999 10/04/1998 Sigmoidoscopy 1999 Zoster Vaccines (1 of 2) 2004 *COPD SEVERITY VERIFIED BY PFT 08/22/2015 DXA Scan 11/27/2017 11/28/2015 *BISPHONATE OR OTHER ACCEPTABLE MEDICATION NEEDED FOR OSTEOPOROSIS (REFER TO SMARTSET #0206) 06/14/2018 Depression, Most Recent Score >= 10 (will fire each visit until score < 10) 06/14/2020 06/13/2020 Pneumococcal Vaccine: 65+ Years (3 of 3 - PPSV23 or PCV20) 04/11/2021 04/11/2020, 08/05/2013 Diabetic Eye Exam 01/29/2022 01/29/2021 Colonoscopy 04/05/2022 04/05/2019, 03/24, 01/15/2016, Additional history exists Colorectal Cancer Screening 04/05/2022 COVID-19 Vaccine ( season) 2023 Albumin/Creatinine Ratio 10/17/2023 023, 10/16/2021, 10/11/2019, Additional history exists Diabetic Foot Exam 10/17/2023 10/17/2022, 0 09/05/2020, 10/11/2019, Additional history exists HbA1c 11/16/2023 05/18/2023, 09/25, 10/16/2021, Additional history exists B-12 11/18/2023 11/17/2022, 09/25, 10/16/2021, Additional history exists Influenza Vaccine (FLU shot) (Season Ended) 2024 06/19/2017, 06/27/2015, 06/29/2014, Additional history exists GFR 11/17/2024 11/18/2023, 04/25, 01/29/2023, Additional history exists O2 ASSESSMENT COMPLETED IN PAST YEAR FOR COPD 12/30/2024 12/31/2023 DTaP,Tdap,and Td Vaccines (2 - Td or Tdap) 01/17/2026 01/18/2016, 03/15/2004 VITAMIN D LEVEL ONCE IN A LIFETIME-USE SMARTSET# 35035 Completed 12/18/2015, 02/09/2015, 06/29/2014, Additional history exists Lung Cancer Screening Completed 07/09/2023 , 06/20/2019, 07/25/2017, Additional history exists AAA Screening Completed 11/19/2023 GARDASIL-HPV IMMUNIZATION SERIES Aged Out No longer eligible based on patient's age to complete this topic Hepatitis B Aged Out No longer eligi ble based on patient's age to complete this topic MENINGOCOCCAL (MENACTRA/MENVEO) Aged Out No longer eligible based on patient's age to complete this topic documented as of this encounter Medical Devices Implanted Type Area Academic Affairs Manager Device Identifier Shelf Expiration Date Model / Serial / Lot Stent Carotid [id number] - [id number] Implanted:Qty: 1 on 08/23/2013 at OR [facility] [place] Right: Carotid [facility] 02/21/2016 [id number] / / [id number] documented as of this encounter Visit Diagnoses Diagnosis Current moderate episode of major depressive disorder, unspecified whether recurrent (HCC) History of colonic polyps Personal history of colonic polyps documented in this encounter Advance Directives * Full Code (Latest Code Status on File) Date Activated Date Inactivated Comments 12/31/2023 12:41 PM 12/31/2023 5:55 PM This order re flects the patients wishes and were consensually agreed upon. Question Answer Comments Discussion of Advance Directives occurred with: Patient * Full Code Date Activated Date Inactivated Comments 12/31/2023 9:15 AM 12/31/2023 12:41 PM This order re flects the patients wishes and were consensually agreed upon. Question Answer Comments Discussion of Advance Directives occurred with: Patient * Full Code Date Activated Date Inactivated Comments 07/26/2017 6:55 PM 07/27/2017 8:00 PM This order r eflects the patients wishes and were consensually agreed upon. Question Answer Comments Discussion of Advance Directives occurred with: Patient Does the patient have a Living Will? No Does the patient have Health Care Power of Attor fazal? No * Full Code Date Activated Date Inactivated Comments 07/10/2017 5:59 PM 07/13/2017 3:18 PM This order reflects the patients wishes and were consensually agreed upon. Question Answer Comments Discussion of Advance Directives occurred with: Patient/Family Does the patient have a Living Will? Yes, not cu rrently available Does the patient have Health Care Power of Microbiology Laboratory Manager? No * Full Code Date Activated Date Inactivated Comments 08/23/2013 8:39 AM 08/24/2013 2:49 PM This order r eflects the patients wishes and were consensually agreed upon. Care Teams Poolroom Table Attendant Relationship Specialty Start Date End Date Terry Resendez MD [address] [place] [address] PCP - General 04/07/1996 documented as of this encounter
--- OUTSIDE RECORDS SUMMARY | 2024-03-15 04:17 | External Medical Summary | Summary of Care ---
Author Name Unknown Organization [facility] Address [address] [place] [address] Phone [phone] Care Team Providers Care Leasing Sales Consultant Name Role Phone Sam Resendez MD Primary Care Provider [phone] Reason for Visit * Reason Comments Post-Op * Evaluate & Treat - Unlimited Visits (Within 3 days (urgent)) - Authorized Specialty Diagnoses / Procedures Referred By Contenedelia t Referred To Contact Urology Diagnoses Urinary retention Urinary incontinence, unspecified type Subjective fever Dysuria Nichole Guido MD [address] [place] [address] Referral ID Status Reason Start Date Expiration Date Visits Requested Visits Authorized [id number] Authorized Specialty Services Required 05/18/2023 05/18/[phone] Encounter Details Date Type Department Care Team (Late st Contact Info) Description 01/11/2024 9:00 AM EDT Office Visit Urology, [facility] [address] [facility] [place] [address] Mauricio Ramos MD [address] [facility] [address] [place] [address] BPH with obstruction/lower urinary tract symptoms*; Urinary retention Allergies Active Allergy Reactions Criticality Noted Date Comments Ciprofloxacin Hives 09/01/2017 Statins 11/15/2020 All statins Simvastatin 05/07/2006 Severe myalgia's documented as of this encounter (statuses as of 01/11/2024) Medications Medication Sig Dispensed Refills Start Date End Date Status ASPIRIN EC 81 MG PO TBECIndications:Esther horton atherosclerosis of gambell coronary artery Take one pill daily 100 [...] needed for Pain. As needed 30 Tab 06/15/2018 Active Nitroglycerin 0.4 MG Sublingual Tablet Sublingual (Nitrostat) Place under the tongue 1 Tablet every 5 minutes as needed for Pain, Chest. up to 3 doses in 15 minutes 25 Tablet 11 12/02/2021 Active Tamsulosin HCl 0.4 MG Oral Capsule (Flomax)Indications: Obstructive uropathy TAKE 1 CAPSULE BY MOUTH EVERY OTHER DAY 45 Capsule 3 05/08/2023 Active Omeprazole 20 MG Oral Capsule Delayed Release (PriLOSEC) TAKE 1 CAPSULE BY MOUTH EVERY MORNING 90 Capsule 3 07/27/2023 Active amLODIPine Besylate 5 MG Oral Tablet (Norvasc) Take 1 Tablet by mouth in the morning. 90 Tablet 3 07/30/2023 Active Metoprolol Succinate ER 25 MG Oral Tablet Extended Release 24 Hour (toPROL XL) Take 1 Tablet by mouth in the morning. 90 Tablet 3 08/10/2023 Active Repatha SureClick 140 MG/ML Subcutaneous Solution Auto-injector (evolocumab) Inject 140 mg (1 pen) under the skin every 14 days. Remove from refrigerator 30 minutes prior to injection. 6 mL 3 08/20/2023 Active Additional Information Patient not taking.Reported on 11/18/2023 Lasmiditan Succinate 50 MG Oral Tablet (Reyvow) Take one at onset of migraine. Max 1 dose in 24hours 10 Tablet 5 08/25/2023 Active Isosorbide Mononitrate ER 60 MG Oral Tablet Extended Release 24 Hour (Imdur)Indications:E xertional angina (HCC) Take 1 Tablet by mouth in the morning. 90 Tablet 3 08/26/2023 Active levETIRAcetam 500 MG Oral Tablet (Keppra)Indications: Seizure, grand mal (HCC) 1 twice a day (dose increase) 180 Tablet 1 10/16/2023 Active Clopidogrel Bisulfate 75 MG Oral Tablet (pLAVix)Indications: Acute ischemic stroke (HCC) Take 1 Tablet by mouth in the morning. 90 Tablet 3 10/16/2023 Active Finasteride 5 MG Oral Tablet (Proscar)Indications :Uropathy, obstructive Take 1 Tablet by mouth in the morning. 90 Tablet 3 10/16/2023 Active Additional Information Patient taking differently:5 mg Oral Daily(AM),In the evening, Reported on 10/21/2023 DULoxetine HCl 30 MG Oral Capsule Delayed Release Particles (Cymbalta)Indication s:Current moderate episode of major depressive disorder, unspecified whether recurrent (HCC) 1 cap in AM and 1 cap in PM. Do not cut, crush or chew 180 Capsule 3 10/22/2023 Active Ondansetron HCl 4 MG Oral Tablet (Zofran)Indications: Nausea without vomiting TAKE ONE TABLET BY MOUTH EVERY 6 HOURS NEEDED FOR NAUSEA. 30 Tablet 12/16/2023 Active Nitrofurantoin Monohyd Macro 100 MG Oral Capsule (Macrobid) Take 1 Capsule by mouth in the morning and 1 Capsule before bedtime. With food.. 30 Capsule 12/25/2023 Active HYDROcodone-Acetamin ophen 5-325 MG Oral TabletIndications:Ch ronic bilateral low back pain with right-sided sciatica Take 1 Tablet by mouth 3 times a day as needed for Pain, Mild or Pain, Moderate. 30 day RX 90 Tablet 12/30/2023 Active Phenazopyridine HCl 200 MG Oral Tablet (Pyridium) Take 1 Tablet by mouth 3 times a day as needed for Other (Bladder spasms). After meals. 12 Tablet 12/31/2023 Active traMADol HCl 50 MG Oral Tablet (Ultram) Take 1 Tablet by mouth every 6 hours as needed for Pain, Severe. 10 Tablet 12/31/2023 Active Hospital, Clinic, or Other Facility Administered Medication Ordered Dose Route Frequency Start Date End Date Status albuterol sulfate (PROVENTIL) (2.5 MG/3ML) 0.083% inhalation solution 2.5 mgIndications:COPD, severity to be determined (HCC) 2.5 mg NEBULIZER Q4H PRN 07/05/2019 Active sulfamethoxazole-trimet hoprim DS (Bactrim DS) 800-160 MG 1 TabletIndications:BPH with obstruction/lower urinary tract symptoms,Urinary retention 1 Tablet OR ONCE 01/11/2024 01/11/2024 Active documented as of this encounter (statuses as of 01/11/2024) Active Problems Problem Noted Date Diagnosed Date [...] 11/26/2018 DDD (degenerative disc disease), lumbar 11/27/19 Chronic bilateral low back pain with right-sided [...] as of this encounter (statuses as of 01/11/2024) Resolved Problems Problem Noted Date Diagnosed Date [...] as of this encounter (statuses as of 01/11/2024) Immunizations Name Administration Dates Next Due Pneumococcal [...] drink = 0.6 oz pu re alcohol) 7 beers or more everyday AUDIT-C Answer Date [...] as of this encounter Progress Notes * Mauricio Ramos MD - 01/11/2024 9:00 AM EDT [id number] PCP: SAM RESENDEZ [address] [place] [address] [phone] Patel León is a 68 year old male, who presents for postop check after GreenLight TURP and dilation of urethral stricture. Patient's past notes reviewed. Extended catheterization due to dilation of dense urethral stricture is appreciated. Patient is here today with his . He notes discoloration of urine associated with the use of Pyridium. He denies significant difficulties other than mild catheter irritation. Patient denies any ongoing hematuria at this time. BPH: Patient is being seen for BPH today. He has had the following symptoms: slow stream, nocturia, urgency, and frequency. Severity is moderate. He has tried tamsulosin and finasteride. CIC started October 2023. He has previously had Cystoscopy done November 2023 demonstrating short, obstructive prostate. GreenLight TURP and dilation of urethral stricture December 2023. Problem has been present for years. Problem is getting better. PSA Results: Lab Results Component Value Date/Time PSA - [facility] 1.12 05/18/2023 12:03 PM PSA - [facility] 0.81 07/04/2021 03:04 PM PSA - [facility] 0.36 04/24/2009 02:20 PM PSA SCREENING 0.41 05/20/2013 10:39 AM PSA SCREENING 0.42 07/20/2009 10:52 AM PSA SCREENING 0.48 09/07/2007 09:14 AM Current Outpatient Medications Medication Sig Dispense Refill [...] as needed for Pain. As Tab 0 Nitroglycerin 0.4 MG Sublingual Tablet Sublingual (Nitrostat) Place under the tongue 1 Tablet every5 minutes as needed for Pain, Chest. up to 3 doses in 15 minutes 25 Tablet 11 Tamsulosin HCl 0.4 MG Oral Capsule (Flomax) TAKE 1 CAPSULE BY MOUTH EVERY OTHER DAY 45 Capsule 3 Omeprazole 20 MG Oral Capsule Delayed Release (PriLOSEC) TAKE 1 CAPSULE BY MOUTH EVERY MORNING 90 Capsule 3 amLODIPine Besylate 5 MG Oral Tablet (Norvasc) Take 1 Tablet by mouth in the morning. 90 Tablet 3 Metoprolol Succinate ER 25 MG Oral Tablet Extended Release 24 Hour (toPROL XL) Take 1 Tablet by mouth in the morning. 90 Tablet 3 Repatha SureClick 140 MG/ML Subcutaneous Solution Auto-injector (evolocumab) Inject 140 mg (1 pen) under the skin every 14 days. Remove from refrigerator 30 minutes prior to injection. (Patient not taking: Reported on 11/18/2023) 6 mL 3 Lasmiditan Succinate 50 MG Oral Tablet (Reyvow) Take one at onset of migraine. Max 1 dose in 24hours 10 Tablet 5 Isosorbide Mononitrate ER 60 MG Oral Tablet Extended Release 24 Hour (Imdur) Take 1 Tablet by mouthin the morning. 90 Tablet 3 levETIRAcetam 500 MG Oral Tablet (Keppra) 1 twice a day (dose increase) 180 Tablet 1 Clopidogrel Bisulfate 75 MG Oral Tablet (pLAVix) Take 1 Tablet by mouth in the morning. 90 Tablet 3 Finasteride 5 MG Oral Tablet (Proscar) Take 1 Tablet by mouth in the morning. (Patient taking differently: Take 1 Tablet by mouth in the morning. In the evening.) 90 Tablet 3 DULoxetine HCl 30 MG Oral Capsule Delayed Release Particles (Cymbalta) 1 cap in AM and 1 cap in PM.Do not cut, crush or chew 180 Capsule 3 Ondansetron HCl 4 MG Oral Tablet (Zofran) TAKE ONE TABLET BY MOUTH EVERY 6 HOURS NEEDED FOR NAUSEA. 30 Tablet 0 Nitrofurantoin Monohyd Macro 100 MG Oral Capsule (Macrobid) Take 1 Capsule by mouth in the morning and 1 Capsule before bedtime. With food.. 30 Capsule 0 HYDROcodone-Acetaminophen 5-325 MG Oral Tablet Take 1 Tablet by mouth 3 times a day as needed for Pain, Mild or Pain, Moderate. 30 day RX 90 Tablet 0 Phenazopyridine HCl 200 MG Oral Tablet (Pyridium) Take 1 Tablet by mouth 3 times a day as needed for Other (Bladder spasms). After meals. 12 Tablet 0 traMADol HCl 50 MG Oral Tablet (Ultram) Take 1 Tablet by mouth every 6 hours as needed for Pain, Severe. 10 Tablet 0 Current Facility-Administered Medications Medication Dose Route Frequency Provider Last Rate Last Admin albuterol sulfate (PROVENTIL) (2.5 MG/3ML) 0.083% inhalation solution 2.5 mg 2.5 mg Nebulizer Q4H PRN Joselyn Merida, DO Review of patient's allergies indicates: Allergen Reactions Ciprofloxacin Hives Statins All statins Zocor [Simvastatin] Severe myalgia's Social History: Social History Tobacco Use Smoking status: Every Day Current packs/day: 1.00 Average packs/day: 1 pack/day for 40.0 years (40.0 ttl pk-yrs) Types: Cigarettes Smokeless tobacco: Former Types: Chew Substance Use Topics Alcohol use: Yes Alcohol/week: 14.0 standard drinks of alcohol Types: 14 12 oz of beer per week Comment: 7 beers or more everyday Vaping/E-Cigarette Use Vaping/E-Cigarette Use Never User Vaping/E-Cigarette Substances Vaping/E-Cigarette Devices Family History Problem Relation Name Age of Onset Heart Disorder Mother cabgx4 age 65 Arthritis Mother Arthritis Father Heart Disorder Father Cancer Father Arthritis Daughter Asthma Sister Arthritis Grandmother (Paternal) Past Surgical History: Procedure Laterality Date ANESTHESIA PROCEDURE NEC 08/05/2013 ANESTHESIA FOR PACU PROCEDURE OTHER performed by In & Out Surgery [facility] at OR [facility] CARDIAC CATH-CARDIOLOGY ONLY 2006 COLONOSCOPY W/ LESION REMOVAL, SNARE 06/05/09 done one 12mm polyp in distal sigmoid,,one 3mm in transverse colon, 5mm polyp in proximal sigmoid, diverticulosis /adenomatous/repeat colonoscopy in 1 yr COLONOSCOPY, DIAGNOSTIC (RECTUM) 01/15/2016 hyperplatic & serrated adenomatous polyp, diverticulosis, repeat 3 yrs/[facility] COLONOSCOPY, DIAGNOSTIC (RECTUM) N/A 04/05/2019 poor prep/diverticulosis sigmoid colon/biopsies show benign polyp/recall 3 years/COLONOSCOPY FLEXIBLE PROXIMAL DIAGNOSTIC performed by Dat Narayanan MD at OR [facility] CORONARY ANGIOGRAPHY W/LEFT HEART CATH 05/25/2017 CORONARY ANGIOGRAPHY W/LEFT HEART CATH performed by Martha Alford MD at CARDIAC LABS [facility] INFORMATION Ankle fx repair. IR VERTEBRAL AUGMENTATION TECH ONLY 2015 L2/ Dr Barcenas MISCELLANEOUS ORDER 08/1999 left lateral elbow ligament repair MISCELLANEOUS ORDER ([facility] ONLY) 09/2003 right rotator cuff repair/ [place] OTHER 09/2006 left rotator cuff repair OTHER 2007 bilateral hip replacement (Dr Benavidez) PROSTATE, LASER VAPORIZATION N/A 12/31/2023 LASER VAPORIZATION PROSTATE performed by Mauricio Ramos MD at OR [facility] REMOVAL OF TONSILS, AGE 12+ TOTAL HIP REPLACEMENT & PROSTHESIS both hips, AVN TRANSCATH STENT-CAROTID ARTERY, W/EMBOL PROTECTION 08/23/2013 right carotid stent with cerebral angiogram. 08/23/13 Dr. Chen. [facility] OR TRANSCATH STENT-CAROTID ARTERY, W/EMBOL PROTECTION Xact Carotid Stent 08/05- safe up to 3T Past Medical History: Diagnosis Date Acute ischemic VBA thalamic stroke, left (HCC) 08/04/2013 Benign neoplasm of colon 06/05/2009 adenomatous/repeat colonoscopy in 1 yr Carotid artery stenosis CLASSICAL MIGRAINE WITHOU MENTION OF INTRACTABLE MIGRAINE 01/14/2002 Compression fracture of L2 lumbar vertebra (HCC) 10/16/2015 Coronary atherosclerosis of gambell coronary artery 2005 total occ RCA// 40% prox LAD Displacement of cervical intervertebral disc without myelopathy 01/14/2002 Esophageal reflux 01/14/2002 HTN, goal below 140/90 ICAO (internal carotid artery occlusion) 08/04/2013 Left complete, right near complete Mixed dyslipidemia Motion sickness Multiple fractures of ribs of right side 02/10/2013 Tobacco use disorder Patient Active Problem List Diagnosis Esophageal reflux CLASSICAL MIGRAINE WITHOU MENTION OF INTRACTABLE MIGRAINE CERVICAL DISC DISPLACMNT GENERAL OSTEOARTHROSIS IMPOTENCE, ORGANIC ORIGN ADVANCE DIRECTIVE INFORMATION Dyslipidemia, goal LDL below 70 Gerstmann syndrome ICAO (internal carotid artery occlusion) Aphasia, post-stroke Statin intolerance S/P angioplasty with stent Mild hearing loss of left ear HTN, goal below 140/90 CVA, old, speech/language deficit Vitamin D deficiency Type 2 diabetes mellitus with hemoglobin A1c goal of less than 7.0% ([facility]) COPD, severity to be determined ([facility]) MEDICATION USE AGREEMENT Senile osteoporosis Aortic dissection, thoracic ([facility]) Urinary retention History 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 ([facility]) Hemiplegia, unspecified affecting right dominant side ([facility]) Chronic bilateral low back pain with right-sided sciatica Spondylosis, lumbar, with myelopathy DDD (degenerative disc disease), lumbar Other specified peripheral vascular diseases ([facility]) Hemiplga following cerebral infrc aff right dominant side ([facility]) Diabetes mellitus with peripheral angiopathy ([facility]) Acute ischemic stroke ([facility]) Bradycardia Hemiplegia and hemiparesis following unspecified cerebrovascular disease affecting right dominant side ([facility]) Recurrent major depressive disorder (HCC) Major depressive disorder, single episode, moderate (HCC) Seizure, grand mal ([facility]) BPH with obstruction/lower urinary tract symptoms Nocturia Constitutional: (-) fever and (-) chills ENT: (-) stridor Male : see HPI Neurology: (+) history of CVA Psychiatry: (-) negative: no depression or anxiety Physical Exam Nursing note reviewed. Constitutional: General: He is not in acute distress. Appearance: Normal appearance. He is not ill-appearing or toxic-appearing. HENT: Head: Normocephalic and atraumatic. Right Ear: External ear normal. Left Ear: External ear normal. Nose: Nose normal. Mouth/Throat: Mouth: Mucous membranes are moist. Eyes: Extraocular Movements: Extraocular movements intact. Cardiovascular: Pulses: Normal pulses. Pulmonary: Effort: Pulmonary effort is normal. No respiratory distress. Abdominal: Palpations: Abdomen is soft. Tenderness: There is no abdominal tenderness. Musculoskeletal: Cervical back: Normal range of motion and neck supple. Lymphadenopathy: Cervical: No cervical adenopathy. Skin: Coloration: Skin is not cyanotic or pale. Neurological: Mental Status: He is alert and oriented to person, place, and time. Psychiatric: Attention and Perception: Attention normal. Mood and Affect: Mood and affect normal. Impression/Plan: 68-year-old male postop TURP. Expected healing is reviewed. Patient and family inquire regarding the possibility of urinary incontinence. This is somewhat increased due to the patient's history of cerebrovascular accident. Trial of void today as scheduled, will see the patient back in 3 months. They strongly encouraged to contact us with any difficulties in the postoperative period. Patient vocalizes good understanding of thetreatment plan. Mauricio Ramos MD 7:38 AM 01/11/2024 documented in this encounter Nursing Notes * Annetta Sarmiento LPN - 01/11/2024 9:19 AM EDT Patient's bladder was instilled 360 cc of NSS. Catheter balloon then deflated and catheter removed.Patient proceeded to void, spontaneously for approximately 275 cc of pink urine. Patient tolerated procedure well. Dr Ramos made aware. * Annetta Sarmiento LPN - 01/11/2024 8:49 AM EDT Postop glturp 12/30 PSA Results: Lab Results Component Value Date/Time PSA - [facility] 1.12 05/18/2023 12:03 PM PSA - [facility] 0.81 07/04/2021 03:04 PM PSA - [facility] 0.36 04/24/2009 02:20 PM PSA SCREENING 0.41 05/20/2013 10:39 AM PSA SCREENING 0.42 07/20/2009 10:52 AM PSA SCREENING 0.48 09/07/2007 09:14 AM No concerns documented in this encounter Plan of Treatment Upcoming Encounters Date Type Department Care Team (Latest Contact Info) Description 04/01/2024 11:49 AM EDT Hospital Encounter OR [facility], Operating Room, [facility] - 4th Floor [address] [place] [address] Seamus Calixto, DO [address] [place] [address] 04/01/2024 11:49 AM EDT - 04/01/2024 12:30 PM EDT Surgery OR [facility], Operating Room, [facility] - 4th Floor [address] [place] [address] Seamus Calixto, DO [address] [place] [address] COLONOSCOPY FLEXIBLE PROXIMAL DIAGNOSTIC 04/15/2024 2:00 PM EDT Office Visit [facility] [address] [place] [id number] Sam Resendez MD [address] [place] [address] 05/02/2024 3:40 PM EDT Office Visit Neurology [facility] [address] [facility] [place] [address] Elsie Capone MD [address] [facility] [address] 06/06/2024 3:30 PM EDT Office Visit Cardiology, [facility] [address] [place] [address] Nargis Power CRNP [address] [place] [address] Scheduled Procedures Name Priority Associated Diagnoses Date/Ti me COLONOSCOPY FLEXIBLE PROXIMAL DIAGNOSTIC Recall History of colonic polyps 04/01/2024 11:49 AM EDT Health Maintenance Due Date Last Done Comments DISCUSS TOBACCO CESSATION (REFER TO SMARTSET #3904) 1954 Alpha-1 Antitrypsin 1972 Cologuard 1999 Fecal Occult Blood Test 1999 10/04/1998 Sigmoidoscopy 1999 Zoster Vaccines (1 of 2) 2004 *COPD SEVERITY VERIFIED BY PFT 08/22/2015 DXA Scan 11/27/2017 11/28/2015 *BISPHONATE OR OTHER ACCEPTABLE MEDICATION NEEDED FOR OSTEOPOROSIS (REFER TO SMARTSET #6816) 06/14/2018 Depression, Most Recent Score >= 10 [...] D LEVEL ONCE IN A LIFETIME-USE SMARTSET# 89430 Completed 12/18/2015, 02/09/2015, 06/29/2014, Additional history exists [...] this encounter Medical Devices Implanted Type Area Football Pad Repairer Device Identifier Shelf Expiration Date Model / Serial / Lot Stent Carotid [id number] - [id number] Implanted:Qty: 1 on 08/23/2013 at OR [facility] Right: Carotid [facility] VASCULAR DEVICES 02/21/2016 [id number] / / [id number] documented as of this encounter Visit Diagnoses Diagnosis BPH with obstruction/lower urinary tract symptoms- Primary Hypertrophy of prostate with urinary obstruction and other lower urinary tract symptoms (LUTS) Urinary retention Retention of urine, unspecified History of colonic polyps Personal history [...] the patient have Health Care Power of Lining Presser? No * Full Code Date Activated Date Inactivated Comments 08/23/2013 8:39 AM 08/24/2013 2:49 PM This order r eflects the patients wishes and were consensually agreed upon. Care Teams Leasing Sales Consultant Relationship Specialty Start Date End Date Sam Resendez MD [address] [place] [address] PCP - General 04/07/1996 documented as of this encounter
--- OUTSIDE RECORDS SUMMARY | 2024-03-15 04:17 | External Medical Summary | Summary of Care ---
Author Name Unknown Organization [facility] Address [address] [facility] [place] [address] Phone [phone] Care Team Providers Care Drum Plater Name Role Phone Terry Resendez MD Primary Care Provider [phone] Encounter Details Date Type Department Care Team (Late st Contact Info) Description 03/01/2024 Telephone Cardiology [place] [facility] 400 [facility] [place] [address] [facility] [place] [address] Allergies Active Allergy Reactions Criticality Noted Date Comments Ciprofloxacin Hives 09/01/2017 Statins 11/15/2020 All statins Simvastatin 05/07/2006 Severe myalgia's documented as of this encounter (statuses as of 03/01/2024) Medications Medication Sig Dispensed Refills Start Date End Date Status ASPIRIN EC 81 MG PO TBECIndications:Esther nary atherosclerosis of [place] coronary artery Take one pill daily 100 [...] bedtime. With food.. 30 Capsule 12/25/2023 Active Phenazopyridine HCl 200 MG Oral Tablet (Pyridium) Take 1 Tablet by mouth 3 times a day as needed for Other (Bladder spasms). After meals. 12 Tablet 12/31/2023 Active traMADol HCl 50 MG Oral Tablet (Ultram) Take 1 Tablet by mouth every 6 hours as needed for Pain, Severe. 10 Tablet 12/31/2023 Active HYDROcodone-Acetamin ophen 5-325 MG Oral TabletIndications:Ch ronic bilateral low back pain with right-sided sciatica Take 1 Tablet by mouth 3 times a day as needed for Pain, Mild or Pain, Moderate. 30 day RX 90 Tablet 03/01/2024 Active Hospital, Clinic, or Other Facility Administered Medication Ordered Dose Route Frequency Start Date End Date Status albuterol sulfate (PROVENTIL) (2.5 MG/3ML) 0.083% inhalation solution 2.5 mgIndications:COPD, severity to be determined (HCC) 2.5 mg NEBULIZER Q4H PRN 07/05/2019 Active documented as of this encounter (statuses as of 03/01/2024) Active Problems Problem Noted Date Diagnosed Date [...] as of this encounter (statuses as of 03/01/2024) Resolved Problems Problem Noted Date Diagnosed Date [...] as of this encounter (statuses as of 03/01/2024) Immunizations Name Administration Dates Next Due Pneumococcal [...] encounter Miscellaneous Notes * Telephone Encounter - Monique Garibay PHARM Tech - 03/01/2024 3:03 PM EDT Spoke with , apt scheduled. Thank you, Monique Garibay Press Brake Operator [facility] 03/01/2024,3:03 PM * Telephone Encounter - Jenna Chilel RPh - 03/01/2024 9:33 AM EDT Patient lost to follow up with MTM for lipid managment Needs appt I am uncertain if patient is actively taking Repatha injection Cardiology Appointment Request Please schedule the following visits: Patient to be scheduled for visit type: Telephonic Medicine Visit [[id number]] on Pharmacist Dept/Schedule Cardiology [facility] [[id number]] & Pharmacist Cardiology [facility] 2 [[id number]] Reason for visit: Lipid Co-Management Length of visit: 30 minutes (return visit) Time Frame: within next 30 days documented in this encounter Plan of Treatment Upcoming Encounters Date Type Department Care Team (Late st Contact Info) Description 03/07/2024 2:30 PM EDT Telemedicine Cardiology [facility] [place] [address] [place] [address] [facility], Pharmacist Cardiology [facility] [address] [place] [address] 04/01/2024 11:49 AM EDT Hospital Encounter OR [facility], Operating Room, [facility] - 4th Floor [address] [place] [address] Seamus Calixto, DO [address] [place] [address] 04/01/2024 11:49 AM EDT - 04/01/2024 12:30 PM EDT Surgery OR [facility], Operating Room, [facility] - 4th Floor 400 [facility] [place] [address] Seamus Calixto DO [address] [place] [address] COLONOSCOPY FLEXIBLE PROXIMAL DIAGNOSTIC 04/15/2024 2:00 PM EDT Office Visit [facility] [address] [place] [id number] Terry Resendez MD [address] [place] [address] 04/26/2024 8:15 AM EDT Office Visit Urology, [facility] 132 [facility] [place] [address] Mauricio Ramos MD [address] [place] [address] 05/02/2024 3:40 PM EDT Office Visit Neurology [facility] 200 [facility] [place] [address] Elsie Capone MD 200 [place] [address] 06/06/2024 3:30 PM EDT Office Visit Cardiology, [facility] [address] [place] [address] Nargis Power CRNP [address] [place] [address] Scheduled Procedures Name Priority Associated Diagnoses Date/Ti me COLONOSCOPY FLEXIBLE PROXIMAL DIAGNOSTIC Recall History of colonic polyps 04/01/2024 11:49 AM EDT Health Maintenance Due Date Last Done Comments DISCUSS TOBACCO CESSATION (REFER TO SMARTSET #2296) 1954 Alpha-1 Antitrypsin 1972 Cologuard 1999 Fecal Occult Blood Test 1999 10/04/1998 Sigmoidoscopy 1999 Zoster Vaccines (1 of 2) 2004 *COPD SEVERITY VERIFIED BY PFT 08/22/2015 DXA Scan 11/27/2017 11/28/2015 *BISPHONATE OR OTHER ACCEPTABLE MEDICATION NEEDED FOR OSTEOPOROSIS (REFER TO SMARTSET #3406) 06/14/2018 Pneumococcal Vaccine: 65+ Years (3 of 3 - PPSV23 or PCV20) 04/11/2021 04/11/2020, 08/05/2013 Depression Monitoring 06/13/2021 06/13/2020 Diabetic Eye Exam 01/29/2022 01/29/2021 Colonoscopy 04/05/2022 04/05/2019, 03/24, 01/15/2016, Additional history exists Colorectal Cancer Screening 04/05/2022 COVID-19 Vaccine ( season) 2023 Albumin/Creatinine Ratio 10/17/2023 023, 10/16/2021, 10/11/2019, Additional history exists Diabetic Foot Exam 10/17/2023 10/17/2022, 0 09/05/2020, 10/11/2019, Additional history exists HbA1c 11/16/2023 05/18/2023, 09/25, 10/16/2021, Additional history exists B-12 11/18/2023 11/17/2022, 09/25, 10/16/2021, Additional history exists Influenza Vaccine (FLU shot) (#1) 2024 06/19/2017, 06/27/2015, 06/29/2014, Additional history exists GFR 11/17/2024 11/18/2023, 04/25, 01/29/2023, Additional history exists O2 ASSESSMENT COMPLETED IN PAST YEAR FOR COPD 12/30/2024 12/31/2023 DTaP,Tdap,and Td Vaccines (2 - Td or Tdap) 01/17/2026 01/18/2016, 03/15/2004 VITAMIN D LEVEL ONCE IN A LIFETIME-USE SMARTSET# 24615 Completed 12/18/2015, 02/09/2015, 06/29/2014, Additional history exists Lung Cancer Screening Completed 07/09/2023 , 06/20/2019, 07/25/2017, Additional history exists AAA Screening Completed 11/19/2023 HPV (Gardasil) Vaccine Aged Out No lo nger eligible based on patient's age to complete this topic Hepatitis B Vaccine Aged Out No longe r eligible based on patient's age to complete this topic MENINGOCOCCAL (MENACTRA/MENVEO) Aged Out No longer eligible based on patient's age to complete this topic documented as of this encounter Medical Devices Implanted Type Area Central Processing Technician Device Identifier Shelf Expiration Date Model / Serial / Lot Stent Carotid [id number] - [id number] Implanted:Q[place]: 1 [place]23/2013 [place] [facility] Carotid [facility] VASCULAR DEVICES 02/21/2016 [id number] / / [id number] documented as of this encounter Advance Directives * Full Code [...] the patient have Health Care Power of Commercial Baking Teacher? No * Full Code Date Activated Date Inactivated Comments 08/23/2013 8:39 AM 08/24/2013 2:49 PM This order r eflects the patients wishes and were consensually agreed upon. Care Teams Drum Plater Relationship Specialty Start Date End Date Terry Resendez MD [address] [place] [facility] [place] [address] PCP - General 04/07/1996 documented as of this encounter
--- OUTSIDE RECORDS SUMMARY | 2024-03-15 04:17 | External Medical Summary | Summary of Care ---
Author Name Unknown Organization [facility] Address [address] [place] [address] Phone [phone] Care Team Providers Care Hi Teacher Name Role Phone Sam Resendez MD Primary Care Provider [phone] Reason for Visit * Reason Comments Post-Op * Evaluate & Treat - Unlimited Visits (Within 3 days (urgent)) - Authorized Specialty Diagnoses / Procedures Referred By Contenedelia t Referred To Contact Urology Diagnoses Urinary retention Urinary incontinence, unspecified type Subjective fever Dysuria Nichole Guido MD [address] [place] [address] Referral ID Status Reason Start Date Expiration Date Visits Requested Visits Authorized [id number] Authorized Specialty Services Required 05/18/2023 05/18/[phone] Encounter Details Date Type Department Care Team (Late st Contact Info) Description 01/11/2024 9:00 AM EDT Office Visit Urology, [facility] 132 [facility] [place] [address] Mauricio Ramos MD 27 [facility] [address] [place] [address] BPH with obstruction/lower urinary tract symptoms*; Urinary retention Allergies Active Allergy Reactions Criticality Noted Date Comments Ciprofloxacin Hives 09/01/2017 Statins 11/15/2020 All statins Simvastatin 05/07/2006 Severe myalgia's documented as of this encounter (statuses as of 01/11/2024) Medications Medication Sig Dispensed Refills Start Date End Date Status ASPIRIN EC 81 MG PO TBECIndications:Esther horton atherosclerosis of [place] coronary artery Take one pill daily 100 [...] Ramos MD - 01/11/2024 9:00 AM EDT [id number] PCP: SAM RESENDEZ [address] [place] [address] [id number] Patel León is a 68 year old [...] 4 hours as needed for Pain. As [id number] Tab 0 Nitroglycerin 0.4 MG Sublingual Tablet [...] OTHER performed [place] [facility] [place] [facility] [place] [facility] [place] performed by Dat Narayanan MD at OR [facility] CORONARY ANGIOGRAPHY W/LEFT HEART CATH 05/25/2017 CORONARY ANGIOGRAPHY W/LEFT HEART CATH performed by Martha Alford MD at [facility] INFORMATION Ankle fx repair. IR VERTEBRAL AUGMENTATION TECH ONLY 2015 L2/ Dr Barcenas MISCELLANEOUS ORDER 08/1999 left lateral elbow ligament repair MISCELLANEOUS ORDER ([facility] ONLY) 09/2003 right rotator cuff repair/ [place] OTHER 09/2006 left rotator cuff repair OTHER 2007 bilateral hip replacement (Dr Benavidez) PROSTATE, LASER VAPORIZATION N/A 12/31/2023 LASER VAPORIZATION PROSTATE performed by Mauricio Ramos MD at OR [facility] REMOVAL OF TONSILS, AGE 12+ TOTAL HIP REPLACEMENT & PROSTHESIS both hips, AVN TRANSCATH STENT-CAROTID ARTERY, W/EMBOL PROTECTION 08/23/2013 right carotid stent with cerebral angiogram. 08/23/13 Dr. Chen. [facility] [place] TRANSCATH STENT-CAROTID ARTERY, W/EMBOL PROTECTION Xact Carotid Stent 08/05- safe up to 3T Past Medical History: Diagnosis Date Acute ischemic VBA thalamic stroke, left (HCC) 08/04/2013 Benign neoplasm of colon 06/05/2009 adenomatous/repeat colonoscopy in 1 yr Carotid artery stenosis CLASSICAL MIGRAINE WITHOU MENTION OF INTRACTABLE MIGRAINE 01/14/2002 Compression fracture of L2 lumbar vertebra (HCC) 10/16/2015 Coronary atherosclerosis of [place] coronary artery 2005 total occ RCA// 40% [...] than 7.0% ([facility]) COPD, severity to be determined ([facility]) MEDICATION USE AGREEMENT Senile osteoporosis Aortic dissection, thoracic ([facility]) Urinary retention History 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 ([facility]) Hemiplegia, unspecified affecting right dominant side ([facility]) Chronic bilateral low back pain with right-sided sciatica Spondylosis, lumbar, with myelopathy DDD (degenerative disc disease), lumbar Other specified peripheral vascular diseases ([facility]) Hemiplga following cerebral infrc aff right dominant side ([facility]) Diabetes mellitus with peripheral angiopathy ([facility]) Acute ischemic stroke ([facility]) Bradycardia Hemiplegia and hemiparesis following unspecified cerebrovascular disease affecting right dominant side ([facility]) Recurrent major depressive disorder (HCC) Major depressive disorder, single episode, moderate (HCC) Seizure, grand mal ([facility]) BPH with obstruction/lower urinary tract symptoms Nocturia [...] 04/01/2024 11:49 AM EDT Hospital Encounter OR [facility], Operating Room, [facility] - 4th Floor [address] [place] [address] Seamus Calixto, DO [address] [place] [address] 04/01/2024 11:49 AM EDT - 04/01/2024 12:30 PM EDT Surgery OR [facility], Operating Room, [facility] - 4th Floor [address] [place] [address] Seamus Calixto, DO [address] [place] [address] COLONOSCOPY FLEXIBLE PROXIMAL DIAGNOSTIC 04/15/2024 2:00 PM EDT Office Visit [facility] [address] [place] [phone] Sam Resendez MD [address] [place] [address] 05/02/2024 3:40 PM EDT Office Visit Neurology [facility] 200 [facility] [place] [address] Elsie Capone MD 200 [place] [address] 06/06/2024 3:30 PM EDT Office Visit Cardiology, [facility] [address] [place] [address] Nargis Power CRNP [address] [place] [address] Scheduled Procedures Name Priority Associated Diagnoses Date/Ti me COLONOSCOPY FLEXIBLE PROXIMAL DIAGNOSTIC Recall History of colonic polyps 04/01/2024 11:49 AM EDT Health Maintenance Due Date Last Done Comments DISCUSS TOBACCO CESSATION (REFER TO SMARTSET #8419) 1954 Alpha-1 Antitrypsin 1972 Cologuard 1999 Fecal Occult Blood Test 1999 10/04/1998 Sigmoidoscopy 1999 Zoster Vaccines (1 of 2) 2004 *COPD SEVERITY VERIFIED BY PFT 08/22/2015 DXA Scan 11/27/2017 11/28/2015 *BISPHONATE OR OTHER ACCEPTABLE MEDICATION NEEDED FOR OSTEOPOROSIS (REFER TO SMARTSET #0046) 06/14/2018 Depression, Most Recent Score >= 10 [...] D LEVEL ONCE IN A LIFETIME-USE SMARTSET# [id number] Completed 12/18/2015, 02/09/2015, 06/29/2014, Additional history exists [...] this encounter Medical Devices Implanted Type Area Adzing And Boring Machine Operator Device Identifier Shelf Expiration Date Model / Serial / Lot Stent Carotid [id number] [id number] - [id number] Implanted:Qty: 1 on 08/23/2013 [place] [facility] [place] Carotid [facility] : VASCULAR DEVICES 02/21/2016 [id number] / / [id number] documented as of this encounter Visit Diagnoses [...] the patient have Health Care Power of Adult Basic Education Instructor? No * Full Code Date Activated Date Inactivated Comments 08/23/2013 8:39 AM 08/24/2013 2:49 PM This order r eflects the patients wishes and were consensually agreed upon. Care Teams Hi Teacher Relationship Specialty Start Date End Date Sam Resendez MD [address] [place] [address] PCP - General 04/07/1996 documented as of this encounter
--- OUTSIDE RECORDS SUMMARY | 2024-03-15 04:17 | External Medical Summary | Summary of Care ---
Author Name Unknown Organization [facility] Address [address] [facility] [place] [address] Phone [phone] Care Team Providers Care Clinical Implementation Specialist Name Role Phone Terry Resendez MD Primary Care Provider [phone] Encounter Details Date Type Department Care Team (Late st Contact Info) Description 03/01/2024 Telephone Cardiology [place] [facility] 400 [facility] [place] [address] [facility] 21 [facility] [place] [address] Allergies Active Allergy Reactions Criticality Noted Date Comments Ciprofloxacin Hives 09/01/2017 Statins 11/15/2020 All statins Simvastatin 05/07/2006 Severe myalgia's documented as of this encounter (statuses as of 03/01/2024) Medications Medication Sig Dispensed Refills Start Date End Date Status ASPIRIN EC 81 MG PO TBECIndications:Esther nary atherosclerosis of [place] coronary artery Take one pill daily 100 [...] Miscellaneous Notes * Telephone Encounter - Jenna Chilel RPh - 03/01/2024 9:33 AM EDT Patient lost to follow up with MTM for lipid managment Needs appt I am uncertain if patient is actively taking Repatha injection Cardiology Appointment Request Please schedule the following visits: Patient to be scheduled for visit type: Telephonic Medicine Visit [[id number]] on Pharmacist Dept/Schedule Cardiology [facility] [[id number]] & Pharmacist Cardiology [facility] 2 [[id number]] Reason for visit: Lipid Co-Management Length of visit: 30 minutes (return visit) Time Frame: within next 30 days documented in this encounter Plan of Treatment Upcoming Encounters Date Type Department Care Team (Latest Contact Info) Description 04/01/2024 11:49 AM EDT Hospital Encounter OR [facility], Operating Room, [facility] - 4th Floor [address] [place] [address] Seamus Calixto, DO [address] [place] [address] 04/01/2024 11:49 AM EDT - 04/01/2024 12:30 PM EDT Surgery OR [facility], Operating Room, [facility] - 4th Floor [address] [place] [address] Seamus Calixto DO [address] [place] [address] COLONOSCOPY FLEXIBLE PROXIMAL DIAGNOSTIC 04/15/2024 2:00 PM EDT [facility] [address] [facility] [phone] Terry Resendez MD [address] [place] [facility] [place] [address] 04/26/2024 8:15 AM EDT Office Visit Urology, [facility] 132 [place] [address] Mauricio Ramos MD [address] [place] [address] 05/02/2024 3:40 PM EDT Office Visit Neurology [facility] [address] [place] [address] Elsie Capone MD [address] [place] [address] 06/06/2024 3:30 PM EDT Office Visit Cardiology, [facility] [place] [address] Nargis Power CRNP 132 [facility] [place] [address] Scheduled Procedures Name Priority Associated Diagnoses Date/Ti me COLONOSCOPY FLEXIBLE PROXIMAL DIAGNOSTIC Recall History of colonic polyps 04/01/2024 11:49 AM EDT Health Maintenance Due Date Last Done Comments DISCUSS TOBACCO CESSATION (REFER TO SMARTSET #7839) 1954 Alpha-1 Antitrypsin 1972 Cologuard 1999 Fecal Occult Blood Test 1999 10/04/1998 Sigmoidoscopy 1999 Zoster Vaccines (1 of 2) 2004 *COPD SEVERITY VERIFIED BY PFT 08/22/2015 DXA Scan 11/27/2017 11/28/2015 *BISPHONATE OR OTHER ACCEPTABLE MEDICATION NEEDED FOR OSTEOPOROSIS (REFER TO SMARTSET #1146) 06/14/2018 Pneumococcal Vaccine: 65+ Years (3 of [...] D LEVEL ONCE IN A LIFETIME-USE SMARTSET# 84996 Completed 12/18/2015, 02/09/2015, 06/29/2014, Additional history exists [...] this encounter Medical Devices Implanted Type Area Rigger Up Device Identifier Shelf Expiration Date Model / Serial / Lot Stent Carotid [id number] [id number] - [id number] Implanted:Qty: 1 on 08/23/2013 at [place] [facility] [place] Right: Carotid [facility] : VASCULAR DEVICES 02/21/2016 [id number] / / [id number] documented as of this encounter Advance Directives [...] the patient have Health Care Power of Senior International Tax Manager? No * Full Code Date Activated Date Inactivated Comments 08/23/2013 8:39 AM 08/24/2013 2:49 PM This order r eflects the patients wishes and were consensually agreed upon. Care Teams Clinical Implementation Specialist Relationship Specialty Start Date End Date Terry Resendez MD [address] [place] [address] PCP - General 04/07/1996 documented as of this encounter
--- OUTSIDE RECORDS SUMMARY | 2024-03-15 04:17 | External Medical Summary | Summary of Care ---
Author Name Unknown Organization [facility] Address [address] [place] [address] Phone [phone] Care Team Providers Care Foundry Technician Name Role Phone Sam Resendez MD Primary Care Provider Reason for Visit * Reason Onset Date Comments Medication Refill 01/29/2024 Encounter Details Date Type Department Care Team (Late st Contact Info) Description 01/29/2024 Refill [place] [address] [place] [address] Sam Resendez MD [address] [place] [address] Chronic bilateral low back pain with right-sided sciatica Allergies Active Allergy Reactions Criticality Noted Date Comments Ciprofloxacin Hives 09/01/2017 Statins 11/15/2020 All statins Simvastatin 05/07/2006 Severe myalgia's documented as of this encounter (statuses as of 01/31/2024) Medications Medication Sig Dispensed Refills Start Date End Date Status ASPIRIN EC 81 MG PO TBECIndications:Esther nary atherosclerosis of [place] coronary artery Take one pill daily 100 [...] needed for Pain. As needed 30 Tab 8 Active Nitroglycerin 0.4 MG Sublingual Tablet Sublingual (Nitrostat) Place under the tongue 1 Tablet every 5 minutes as needed for Pain, Chest. up to 3 doses in 15 minutes 25 Tablet 11 2 Active Tamsulosin HCl 0.4 MG Oral Capsule (Flomax)Indications: Obstructive uropathy TAKE 1 CAPSULE BY MOUTH EVERY OTHER DAY 45 Capsule 3 3 Active Omeprazole 20 MG Oral Capsule Delayed Release (PriLOSEC) TAKE 1 CAPSULE BY MOUTH EVERY MORNING 90 Capsule 3 3 Active amLODIPine Besylate 5 MG Oral Tablet (Norvasc) Take 1 Tablet by mouth in the morning. 90 Tablet 3 3 Active Metoprolol Succinate ER 25 MG Oral Tablet Extended Release 24 Hour (toPROL XL) Take 1 Tablet by mouth in the morning. 90 Tablet 3 3 08/04/20 24 Active Repatha SureClick 140 MG/ML Subcutaneous Solution Auto-injector (evolocumab) Inject 140 mg (1 pen) under the skin every 14 days. Remove from refrigerator 30 minutes prior to injection. 6 mL 3 3 Active Additional Information Patient not taking.Reported on 11/18/2023 Lasmiditan Succinate 50 MG Oral Tablet (Reyvow) Take one at onset of migraine. Max 1 dose in 24hours 10 Tablet 5 4 Active Isosorbide Mononitrate ER 60 MG Oral Tablet Extended Release 24 Hour (Imdur)Indications:E xertional angina (HCC) Take 1 Tablet by mouth in the morning. 90 Tablet 3 4 Active levETIRAcetam 500 MG Oral Tablet (Keppra)Indications: Seizure, grand mal (HCC) 1 twice a day (dose increase) 180 Tablet 1 4 Active Clopidogrel Bisulfate 75 MG Oral Tablet (pLAVix)Indications: Acute ischemic stroke (HCC) Take 1 Tablet by mouth in the morning. 90 Tablet 3 4 Active Finasteride 5 MG Oral Tablet (Proscar)Indications :Uropathy, obstructive Take 1 Tablet by mouth in the morning. 90 Tablet 3 4 Active Additional Information Patient taking differently:5 mg Oral Daily(AM),In the evening, Reported on 10/21/2023 DULoxetine HCl 30 MG Oral Capsule Delayed Release Particles (Cymbalta)Indication s:Current moderate episode of major depressive disorder, unspecified whether recurrent (HCC) 1 cap in AM and 1 cap in PM. Do not cut, crush or chew 180 Capsule 3 4 Active Ondansetron HCl 4 MG Oral Tablet (Zofran)Indications: Nausea without vomiting TAKE ONE TABLET BY MOUTH EVERY 6 HOURS NEEDED FOR NAUSEA. 30 Tablet 4 Active Nitrofurantoin Monohyd Macro 100 MG Oral Capsule (Macrobid) Take 1 Capsule by mouth in the morning and 1 Capsule before bedtime. With food.. 30 Capsule 4 Active Phenazopyridine HCl 200 MG Oral Tablet (Pyridium) Take 1 Tablet by mouth 3 times a day as needed for Other (Bladder spasms). After meals. 12 Tablet 4 Active traMADol HCl 50 MG Oral Tablet (Ultram) Take 1 Tablet by mouth every 6 hours as needed for Pain, Severe. 10 Tablet 4 Active HYDROcodone-Acetamin ophen 5-325 MG Oral TabletIndications:Ch ronic bilateral low back pain with right-sided sciatica Take 1 Tablet by mouth 3 times a day as needed for Pain, Mild or Pain, Moderate. 30 day RX 90 Tablet 4 Active HYDROcodone-Acetamin ophen 5-325 MG Oral TabletIndications:Ch ronic bilateral low back pain with right-sided sciatica Take 1 Tablet by mouth 3 times a day as needed for Pain, Mild or Pain, Moderate. 30 day RX 90 Tablet 4 01/29/20 24 Discontinu ed(Refill) Hospital, Clinic, or Other Facility Administered Medication Ordered Dose Route Frequency Start Date End Date Status albuterol sulfate (PROVENTIL) (2.5 MG/3ML) 0.083% inhalation solution 2.5 mgIndications:COPD, severity to be determined (HCC) 2.5 mg NEBULIZER Q4H PRN 07/05/2019 Active documented as of this encounter (statuses as of 01/31/2024) Active Problems Problem Noted Date Diagnosed Date [...] as of this encounter (statuses as of 01/31/2024) Resolved Problems Problem Noted Date Diagnosed Date [...] as of this encounter (statuses as of 01/31/2024) Immunizations Name Administration Dates Next Due Pneumococcal [...] Telephone Encounter - Sam Resendez MD - 01/31/2024 9:23 PM EDTSigned Prescriptions: Disp Refills HYDROcodone-Acetaminophen 5-325 MG Oral Ta*90 Tab*0 Sig: Take 1 Tablet by mouth 3 times a day as needed for Pain, Mild or Pain, Moderate. 30 day RX Authorizing Provider: SAM RESENDEZ * Telephone Encounter - Danielito Gonsalves, [facility] - 01/30/2024 7:47 AM EDTPending Prescriptions: Disp Refills HYDROcodone-Acetaminophen 5-325 MG Oral Ta*90 Tab*0 Sig: Take 1 Tablet by mouth 3 times a day as needed for Pain, Mild or Pain, Moderate. 30 day RX * Telephone Encounter - Danielito Gonsalves [facility] - 01/30/2024 7:46 AM EDT I have reviewed the patients controlled substance dispensing history in the Prescription Drug Monitoring Program in compliance with the [facility] regulations before prescribing a controlled substance. PDMP checked on 01/30/2024. Pending Prescriptions: Disp Refills HYDROcodone-Acetaminophen 5-325 MG Oral T*90 Tab*0 Sig: Take 1 Tablet by mouth 3 times a day as needed for Pain, Mild or Pain, Moderate. 30 day RX Last Visit: 10/21/2023 (in office), Visit date not found (telemedicine) Next Visit: 04/15/2024 Date medication was last filled: 12/30/23 Date medication is due for refill: 01/28/24 Pharmacy: [id number] Is this [...] if appropriate. Thank You, Danielito De Jesus [facility] Clinical Pharmacist Centralized Clinical Pharmacy Services (CCPS) 01/30/2024, 7:46 AM documented in this encounter Plan of Treatment Upcoming Encounters Date Type Department Care Team (Latest Contact Info) Description 04/01/2024 11:49 AM EDT Hospital Encounter OR [facility], Operating Room, [facility] - 4th Floor [address] [place] [address] Seamus Calixto, [address] [place] [address] 04/01/2024 11:49 AM EDT - 04/01/2024 12:30 PM EDT Surgery OR [facility], Operating Room, [facility] - 4th Floor [address] [facility] [place] [address] Seamus Calixto DO [facility] [place] [address] COLONOSCOPY FLEXIBLE PROXIMAL DIAGNOSTIC 04/15/2024 2:00 PM EDT Office Visit [facility] [address] [place] [id number] Sam Resendez MD [address] [place] [address] 04/26/2024 8:15 AM EDT Office Visit Urology, [facility] [address] [facility] [place] [address] Maruicio Ramos MD [address] [facility] [address] [place] [address] 05/02/2024 3:40 PM EDT Office Visit Neurology [facility] [address] [place] [address] Elsie Capone MD [address] [place] [address] 06/06/2024 3:30 PM EDT Office Visit Cardiology, [facility] 132 [facility] [place] [address] Nargis Power CRNP [address] [facility] [address] Scheduled Procedures Name Priority Associated Diagnoses Date/Ti me COLONOSCOPY FLEXIBLE PROXIMAL DIAGNOSTIC Recall History of colonic polyps 04/01/2024 11:49 AM EDT Health Maintenance Due Date Last Done Comments DISCUSS TOBACCO CESSATION (REFER TO SMARTSET #3984) 1954 Alpha-1 Antitrypsin 1972 Cologuard 1999 Fecal Occult Blood Test 1999 10/04/1998 Sigmoidoscopy 1999 Zoster Vaccines (1 of 2) 2004 *COPD SEVERITY VERIFIED BY PFT 08/22/2015 DXA Scan 11/27/2017 11/28/2015 *BISPHONATE OR OTHER ACCEPTABLE MEDICATION NEEDED FOR OSTEOPOROSIS (REFER TO SMARTSET #1756) 06/14/2018 Depression, Most Recent Score >= 10 [...] D LEVEL ONCE IN A LIFETIME-USE SMARTSET# 73258 Completed 12/18/2015, 02/09/2015, 06/29/2014, Additional history exists [...] this encounter Medical Devices Implanted Type Area Cso Device Identifier Shelf Expiration Date Model / Serial / Lot Stent Carotid [id number] - [id number] Implanted:Qty: 1 on 08/23/2013 at [place] [facility] Right: Carotid [facility] VASCULAR DEVICES 02/21/2016 [id number] / / [id number] documented as of this encounter Visit Diagnoses [...] the patient have Health Care Power of Strap Maker? No * Full Code Date Activated Date Inactivated Comments 08/23/2013 8:39 AM 08/24/2013 2:49 PM This order r eflects the patients wishes and were consensually agreed upon. Care Teams Foundry Technician Relationship Specialty Start Date End Date Sam Resendez MD [address] [place] [address] PCP - General 04/07/1996 documented as of this encounter
--- OUTSIDE RECORDS SUMMARY | 2024-03-15 04:17 | External Medical Summary | Summary of Care ---
Author Name Unknown Organization [facility] Address [address] [place] [address] Phone [phone] Care Team Providers Care Resident Care Spec Name Role Phone Sam Resendez MD Primary Care Provider [phone] Reason for Visit * Reason Onset Date Comments Medication Refill 02/28/2024 Encounter Details Date Type Department Care Team (Late st Contact Info) Description 02/28/2024 Refill [place] [id number] [place] [address] Sam Resendez MD [address] [place] [address] Chronic bilateral low back pain with right-sided sciatica Allergies Active Allergy Reactions Criticality Noted Date Comments Ciprofloxacin Hives 09/01/2017 Statins 11/15/2020 All statins Simvastatin 05/07/2006 Severe myalgia's documented as of this encounter (statuses as of 03/01/2024) Medications Medication Sig Dispensed Refills Start Date End Date Status ASPIRIN EC 81 MG PO TBECIndications:Esther nary atherosclerosis of [place] coronary artery Take one pill daily 100 [...] Moderate. 30 day RX 90 Tablet 4 02/28/20 24 Discontinu ed(Refill) Hospital, Clinic, or Other [...] Telephone Encounter - Sam Resendez MD - 03/01/2024 7:36 AM EDTSigned Prescriptions: Disp Refills HYDROcodone-Acetaminophen 5-325 MG Oral Ta*90 Tab*0 Sig: Take 1 Tablet by mouth 3 times a day as needed for Pain, Mild or Pain, Moderate. 30 day RX Authorizing Provider: SAM RESENDEZ * Telephone Encounter - Corina Bernal [facility] - 03/01/2024 7:19 AM EDTPending Prescriptions: Disp Refills HYDROcodone-Acetaminophen 5-325 MG Oral Ta*90 Tab*0 Sig: Take 1 Tablet by mouth 3 times a day as needed for Pain, Mild or Pain, Moderate. 30 day RX * Telephone Encounter - Corina Bernal [facility] - 03/01/2024 7:18 AM EDT I have reviewed the patients controlled substance dispensing history in the Prescription Drug Monitoring Program in compliance with the [facility] regulations before prescribing a controlled substance. PDMP checked on 03/01/2024. Pending Prescriptions: Disp Refills HYDROcodone-Acetaminophen 5-325 MG Oral T*90 Tab*0 Sig: Take 1 Tablet by mouth 3 times a day as needed for Pain, Mild or Pain, Moderate. 30 day RX Last Visit: 10/21/2023 (in office), Visit date not found (telemedicine) Next Visit: 04/15/2024 Date medication was last filled: 02/01/24 Date medication is due for refill: 03/01/24 Pharmacy: [id number] [...] Review. Please approve if appropriate. Thank You, Corina Bernal [facility] Clinical Pharmacist Centralized Clinical Pharmacy Services (CCPS) [phone] 03/01/2024, 7:19 AM documented in this encounter Plan of Treatment Upcoming Encounters Date Type Department Care Team (Latest Contact Info) Description 04/01/2024 11:49 AM EDT Hospital Encounter OR [facility], Operating Room, [facility] - 4th Floor [address] [place] [address] Seamus Calixto, DO 132 [facility] [place] [address] 04/01/2024 11:49 AM EDT - 04/01/2024 12:30 PM EDT Surgery OR [facility], Operating Room, [facility] - 4th Floor 400 [facility] [place] [address] Seamus Calixto DO [address] [place] [address] COLONOSCOPY FLEXIBLE PROXIMAL DIAGNOSTIC 04/15/2024 2:00 PM EDT Office [facility] [address] [facility] [id number] Sam Resendez MD [address] [place] [address] 04/26/2024 8:15 AM EDT Office Visit Urology, [facility] [address] [place] [address] Mauricio Ramos MD [address] [facility] [place] [address] 05/02/2024 3:40 PM EDT Office Visit Neurology [facility] [address] [facility] [place] [address] Elsie Capone MD [address] [facility] [place] [address] 06/06/2024 3:30 PM EDT Office Visit Cardiology, [facility] [place] [address] Nargis Power CRNP [address] [place] [address] Scheduled Procedures Name Priority Associated Diagnoses Date/Ti me COLONOSCOPY FLEXIBLE PROXIMAL DIAGNOSTIC Recall History of colonic polyps 04/01/2024 11:49 AM EDT Health Maintenance Due Date Last Done Comments DISCUSS TOBACCO CESSATION (REFER TO SMARTSET #9134) 1954 Alpha-1 Antitrypsin 1972 Cologuard 1999 Fecal [...] D LEVEL ONCE IN A LIFETIME-USE SMARTSET# 12518 Completed 12/18/2015, 02/09/2015, 06/29/2014, Additional history exists [...] this encounter Medical Devices Implanted Type Area Wine Bottle Inspector Device Identifier Shelf Expiration Date Model / Serial / Lot Stent Carotid [id number] - [id number] Implanted:Qty: 1 on 08/23/2013 at OR [facility] Right: Carotid [facility] VASCULAR DEVICES 02/21/2016 [id number] / / [id number] documented as of this encounter Visit Diagnoses [...] the patient have Health Care Power of Chip Applying Machine Tender? No * Full Code Date Activated Date Inactivated Comments 08/23/2013 8:39 AM 08/24/2013 2:49 PM This order r eflects the patients wishes and were consensually agreed upon. Care Teams Resident Care Spec Relationship Specialty Start Date End Date Sam Resendez MD [address] [facility] [place] [address] PCP - General 04/07/1996 documented as of this encounter
--- OUTSIDE RECORDS SUMMARY | 2024-03-15 04:18 | External Medical Summary ---
Author Name Unknown Address Unknown Organization : Laboratory Report Ordering Provider Test Date Status AYDEE PRADO 12/31/2023 09:52:55 Final Observation Date Value Abnormality Reference (Units ) Status Glucose Point of Care 12/31/2023 09:52:55 130 Above high normal 70-120 (mg/dL) Final Performing Location
--- OUTSIDE RECORDS SUMMARY | 2024-03-15 04:18 | External Medical Summary | Summary of Care ---
Author Name Unknown Organization [facility] Address [address] [facility] [place] [address] Phone [phone] Care Team Providers Care Utility Locator Name Role Phone Terry Resendez MD Primary Care Provider [phone] Reason for Visit * Reason Comments Pre-op Clearance Follow Up Encounter Details Date Type Department Care Team (Late st Contact Info) Description 12/30/2023 1:30 PM EDT Office Visit Cardiology, 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); HTN, goal below 140/90; Dyslipidemia, goal LDL below 70 Allergies Active Allergy Reactions Criticality Noted Date Comments Ciprofloxacin Hives 09/01/2017 Statins 11/15/2020 All statins Simvastatin 05/07/2006 Severe myalgia's documented as of this encounter (statuses as of 12/31/2023) Medications Medication Sig Dispensed Refills Start Date End Date Status ASPIRIN EC 81 MG PO TBECIndications:Esther nary atherosclerosis of gambell coronary artery Take one [...] As needed 30 Tab 0 06/15/2018 Active Nitroglycerin 0.4 MG Sublingual Tablet [...] or chew 180 Capsule 3 10/22/2023 Active Silodosin 8 MG Oral Capsule (Rapaflo) Take 1 Capsule by mouth in the morning. 30 Capsule 6 11/18/2023 Active Additional Information Patient not taking.Reported on 11/27/2023 Ondansetron HCl 4 MG Oral Tablet (Zofran)Indications: Nausea without vomiting TAKE ONE TABLET BY MOUTH EVERY 6 HOURS NEEDED FOR NAUSEA. 30 Tablet 0 12/16/2023 Active Nitrofurantoin Monohyd Macro 100 MG Oral Capsule (Macrobid) Take 1 Capsule by mouth in the morning and 1 Capsule before bedtime. With food.. 30 Capsule 0 12/25/2023 Active HYDROcodone-Acetamin ophen 5-325 MG Oral TabletIndications:Ch ronic bilateral low back pain with right-sided sciatica Take 1 Tablet by mouth 3 times a day as needed for Pain, Mild or Pain, Moderate. 30 day RX 90 Tablet 0 12/30/2023 Active Hospital, Clinic, or Other Facility Administered Medication Ordered Dose Route Frequency Start Date End Date Status albuterol sulfate (PROVENTIL) (2.5 MG/3ML) 0.083% inhalation solution 2.5 mgIndications:COPD, severity to be determined (HCC) 2.5 mg NEBULIZER Q4H PRN 07/05/2019 Active documented as of this encounter (statuses as of 12/31/2023) Active Problems Problem Noted Date Diagnosed Date [...] as of this encounter (statuses as of 12/31/2023) Resolved Problems Problem Noted Date Diagnosed Date [...] as of this encounter (statuses as of 12/31/2023) Immunizations Name Administration Dates Next Due Pneumococcal [...] Sign Reading Time Taken Comments Blood Pressure 132/76 12/30/2023 1:22 PM EDT Pulse 76 12/30/2023 1:22 PM EDT Temperature - - Respiratory Rate - - Oxygen Saturation 95% 12/30/2023 1:22 PM EDT Inhaled Oxygen Concentration - - Weight 99.8 kg (220 lb) 12/30/2023 1:22 PM EDT Height - - Body Mass Index 30.68 12/10/2023 9:35 AM EDT documented in this encounter Functional [...] as of this encounter Progress Notes * Margaret Graf PA-C - 12/30/2023 1:29 PM EDT Images from the original note were not included. 12/30/2023 Cardiology Follow Up Primary Radio Interference Supervisor: Dr. Escamilla Cardiac Problems: Chronic alcohol and tobacco use Chronic hyponatremia Recurrent syncopal episodes and symptomatic orthostatic hypotension Chronic headaches, intermittent dizziness Atypical chest pain - Chest tightness at nighttime and dysphagia, significantly improved following addition of omeprazole, reproducible chest wall pain today. 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 Hospitalized after a severe reaction to simvastatin in 2005. Placed on gemfibrozil in 2007 which was also discontinued due to muscleside effects. Fenofibrate in 2012 which was discontinued due to muscle side effects. Deemed to not be a candidate for statin therapy (patient and provider opinion). Prescribed Praluent with improved lipid control. Has been non compliant Daytime fatigue, chronic headaches, witnessed apneic episodes, loud snoring. Sleep testing back in December of 2017 showed no evidence of clinically significant sleep apnea/hypopnea or nocturnal hypoxemia. No REM sleep was attained, so no comments were made about REM without atonia. Severe periodic limbmovement disorder noted. HPI: Patel León is a 68 year old male who presents for preop evaluation. He is scheduled for a laser vaporization of the prostate with Dr. Mauricio Ramos on 12/31/2023. Last evaluated in clinic 11/27/23 by SUNNY Montes. Since last visit, he presented to [facility] ED 12/25/23 with chest pain and shortness of breath. States hewas at home sitting, cutting a small piece of wood, had chest pain and could see heart beatingfast, was breathing heavily. Took 2 nitro and was lethargic after. Was diagnosed with UTI that morning. No new findings on cardiac workup. Presents today accompanied by . States he is feeling better. No recurrent episodes of chest pain or shortness of breath. Denies edema, PND, orthopnea, lightheadedness, syncope. Compliant with allmedications. Currently on antibiotics for UTI. Continues to smoke. REVIEW OF SYSTEMS: See HPI for pertinent positives. All others negative other than those noted in the HPI. CONSTITUTIONAL: No change in weight, No weakness, No fatigue and No fevers, No sweats or chills. PULMONARY: No cough, sputum, or hemoptysis, No wheezing, No shortness of breath and No recent change in breathing. CARDIOVASCULAR: No chest pain, No dyspnea on exertion, No edema, No palpitations and No syncope. GASTROINTESTINAL: No abdominal pain, No change in bowel habits, No significant heartburn, No nausea, No vomiting, No diarrhea, No constipation, No blood in stools or black tarry stools. No dysphagia. HEMATOLOGIC: No abnormal bleeding and No bruising. NEUROLOGICAL: Normal balance, No headaches and No weakness. Review of patient's allergies indicates: Allergen Reactions Ciprofloxacin Hives Statins All statins Zocor [Simvastatin] Severe myalgia's Current Outpatient Medications Medication Sig Dispense Refill [...] 4 hours as needed for Pain. As [id number] Tab 0 Nitroglycerin 0.4 MG Sublingual Tablet [...] mouth in the morning. 90 Tablet 3 Lasmiditan Succinate 50 MG Oral Tablet [...] Moderate. 30 day RX 90 Tablet 0 Repatha SureClick 140 MG/ML Subcutaneous Solution Auto-injector (evolocumab) Inject 140 mg (1 pen) under the skin every 14 days. Remove from refrigerator 30 minutes prior to injection. (Patient not taking: Reported on 11/18/2023) 6 mL 3 Silodosin 8 MG Oral Capsule (Rapaflo) Take 1 Capsule by mouth in the morning. (Patient not taking: Reported on 11/27/2023) 30 Capsule 6 Current Facility-Administered Medications Medication Dose Route Frequency Provider Last Rate Last Admin albuterol sulfate (PROVENTIL) (2.5 MG/3ML) 0.083% inhalation solution 2.5 mg 2.5 mg Nebulizer Q4H PRN Joselny Merida, Past Medical History: Diagnosis Date Acute ischemic VBA thalamic stroke, left (HCC) 08/04/2013 Benign neoplasm of colon 06/05/09 adenomatous/repeat colonoscopy in 1 yr Carotid artery stenosis CLASSICAL MIGRAINE WITHOU MENTION OF INTRACTABLE MIGRAINE 01/14/2002 Compression fracture of L2 lumbar vertebra (HCC) 10/16/2015 Coronary atherosclerosis of gambell coronary artery 2006 total occ RCA// 40% prox LAD Displacement of cervical intervertebral disc without myelopathy 01/14/2002 Esophageal reflux 01/14/2002 HTN, goal below 140/90 ICAO (internal carotid artery occlusion) 08/04/2013 Left complete, right near complete Mixed dyslipidemia Multiple fractures of ribs of right side 02/10/2013 Tobacco use disorder Family History Problem Relation Age of Onset Heart Disorder Mother [id number] age 65 Arthritis Mother Arthritis Father Heart Disorder Father Cancer Father Arthritis Daughter Asthma Sister Arthritis Grandmother (Paternal) Social History Socioeconomic History Marital status: Spouse name: Hilary Number of children: 3 Years of education: 12 Occupational History Employer: [employer] Comment: [employer] Tobacco Use Smoking status: Every Day Current packs/day: 1.00 Average packs/day: 1 pack/day for 40.0 years (40.0 ttl pk-yrs) Types: Cigarettes Smokeless tobacco: Former Types: Chew Vaping Use Vaping Use: Never used Substance and Sexual Activity Alcohol use: Yes Alcohol/week: 14.0 standard drinks of alcohol Types: 14 12 oz of beer per week Comment: 7 beers or more everyday Drug use: No Sexual activity: Yes Partners: Female Other Topics Concern Seat Belt Yes OBJECTIVE/PHYSICAL EXAMINATION: BP 132/76 | Pulse 76 | Wt 99.8 kg (220 lb) | SpO2 95% | BMI 30.68 kg/m | BSA 2.24 m General: No acute distress. A+Ox3. HEENT: Normocephalic. Atraumatic. PERRL. EOMI. Conjunctiva and sclera clear. NECK: No carotid bruits. No JVD. Carotid upstrokes are brisk. Heart: RRR. S1 and S2 noted. No murmur. No rubs or gallops. PMI non displaced. Lungs: Clear to auscultation. No wheezes. No rhonchi. No rales. Abdomen: Normal bowel sounds. Soft. Nontender. No masses or organomegaly. No abdominal bruits. Extremities: No edema. No clubbing or cyanosis. Pulses: radial=2/4, posterior tibial=2/4, dorsalis pedis = 2/4. NEURO: No focal deficits. PSYCH: Appropriate affect and insight. DATA Labs & Imaging Reviewed Below: EKG 12/30/23 NSR, 73 bpm, ST abnormality EKG 11/27/23 NSR, 69 bpm ZIO monitor report reviewed dated Jul 2023: CONCLUSIONS: Final Interpretation Indications: Angina pectoris Duration: 5 days 19 hours Preliminary Findings Prepared by Mark Anthony Philip, DORYS 08/13/23 CONCLUSIONS Patient had a min HR of 49 bpm, max HR of 136 bpm, and avg HR of 76 bpm. Predominant underlying rhythm was Sinus Rhythm. Isolated SVEs were rare (<1.0%), SVE Couplets were rare (<1.0%), and no SVE Triplets were present. Isolated VEs were rare (<1.0%), and no VE Couplets or VE Triplets were present. Patient recorded 10 event markers and 18 diary entries which correlated with sinus and sinus tachycardia only No arrhythmias were observed EKG performed Jul 2023: Normal sinus rhythm Nonspecific ST abnormality Abnormal ECG When compared with ECG of 18-DEC-2022 14:03, No significant change was found Echo report reviewed from Jun 2023: June 20, 2021 TTE Interpretation Summary ([facility], Dr. Brito): Technically limited. Dougie normalvalvular structure and function. Normal size left ventricle. Ejection fraction 55-60%. Normal RV systolic function. October 2021 ZIO Monitor (obtained on metoprolol succinate 37.5 mg/day): Patient had a min HR of 47 bpm, max HR of 146 bpm, and avg HR of 69 bpm. Predominant underlying rhythm was Sinus Rhythm. Slight P wave morphology changes were noted. 1 run of Supraventricular Tachycardia occurred lasting 4 beatswith a max rate of 146 bpm (avg 139 bpm). Isolated SVEs were rare (<1.0%), SVE Triplets were rare (<1.0%), and no SVE Couplets were present. Isolated VEs were rare (<1.0%, 90), VE Couplets were rare (<1.0%, 2), and VE Triplets were rare (<1.0%, 1). The patient had numerous triggered events and diary entries all correlating to sinus rhythm. Carotid duplex on March 27, 2022 revealed an occluded left internal carotid artery, less than 50% right internal carotid artery stenosis, patent right carotid stent. ASSESSMENT/PLAN: 68 year old male 1. Preoperative cardiovascular examination 2. 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) - recent ED visit with chest pain, shortness of breath, heart racing, possibly cardiac related, however was in setting of acute UTI, states he had headache and fatigue at the time as well, possible dehydration - today, he is feeling better, asymptomatic and euvolemic on exam - discussed he has extensive cardiac history and known CAD not amendable to intervention, discussedrisks and benefits of further testing including stress test, however if abnormal, he would be a high risk candidate for further cardiac intervention, shared decision making, patient declines any further cardiac testing at this time, will manage medically - since he is feeling well today he declines any changes in his medications - he is moderate to high risk for any perioperative cardiac complications, discussed with patient and who voice understanding, he would like to proceed with upcoming surgery 3. HTN, goal below 140/90 - blood pressure within goal - continue metoprolol, Imdur, amlodipine 4. Dyslipidemia, goal LDL below 70 - Continue to follow with [facility] clinic - Continue PCSK-9 inhibitor DISPOSITION: Follow up as scheduled or sooner if symptoms worsen/fail to improve. All questions were answered to the patients satisfaction. Patient advised to report to ED with any and all emergencies. The patient agrees to the above plan and will call with additional questions or concerns. Margaret Graf PA-C Cardiology, [address] [place] [address] I spent a total of 35 minutes on the date of service in preparation, delivery, and documentation ofthe care provided to Patel León excluding any time spent in the performance of separately billed services. This chart was completed in part utilizing [employer] Speech Voice Recognition Software. Grammatical errors, random word insertions, pronoun errors, and incomplete sentences are an occasional consequence of this system due to software limitations, ambient noise, and hardware issues. Any formal questions or concerns about the content, text, or information contained within the body of this dictation should be directly addressed to the provider for clarification. documented in this encounter Procedure Notes * Tomas Carr DO - 12/30/2023 1:26 PM EDTAssociated Order(s): EKG REASON FOR STUDY: preop;preop CONCLUSIONS: Normal sinus rhythm Cannot rule out Inferior infarct , age undetermined Cannot rule out Anterior infarct , age undetermined Abnormal ECG When compared with ECG of 27-Nov-2023 14:35, No significant change was found Ventricular Rate: 73 Atrial Rate: 73 DC Interval: 152 QRS Duration: 94 QT/QTc: 382/420 ms P-R-T [place]: 83 : 68 : 21 degrees documented in this encounter Nursing Notes * Nery Moran CMA - 12/30/2023 1:21 PM EDT Examination Room: 2 Name: Patel León Date of : (1955) Reason for Visit: pre op Interim Hospitalization(s): [facility] Problems/Concerns: denied Chest Pain/SOB: denied. See note My [facility] is a way you can talk to your provider online through e-mail. Would you like to sign up? I can activate it for you? ALREADY ACTIVE Patient was instructed to not get up on the exam table until directed and assisted by their provider; patient is to remain seated in the chair/ wheelchair/ exam table for fall prevention and safety reasons. Patient is aware to have assistance to step down off exam table with personnel. Patient voiced full comprehension of instructions. documented in this encounter Plan of Treatment Upcoming Encounters Date Type Department Care Team (Latest Contact Info) Description 01/07/2024 1:30 PM EDT Nurse Only Urology, [facility] [address] [place] [address] Denys Nurse Urology Jared [address] [place] [address] 01/11/2024 9:00 AM EDT Office Visit Urology, [facility] [address] [place] [address] Mauricio Ramos MD [address] [address] [place] [address] 04/01/2024 11:49 AM EDT Hospital Encounter OR [facility], Operating Room, [facility] - 4th Floor [address] [place] [address] Seamus Calixto, DO [address] [place] [address] 04/01/2024 11:49 AM EDT - 04/01/2024 12:30 PM EDT Surgery OR [facility], Operating Room, [facility] - 4th Floor [address] [place] [address] Seamus Calixto, DO [address] [place] [address] COLONOSCOPY FLEXIBLE PROXIMAL DIAGNOSTIC 04/15/2024 2:00 PM EDT Office Visit [facility] [address] [place] [phone] Terry Resendez MD [address] [place] [address] 05/02/2024 3:40 PM EDT Office Visit Neurology [facility] [address] [place] [address] Elsie Capone MD [address] [place] [address] 06/06/2024 3:30 PM EDT Office Visit Cardiology, [facility] [address] [place] [address] Nargis Power CRNP [address] [place] [address] Scheduled Procedures Name Priority Associated Diagnoses Date/Ti me LASER VAPORIZATION PROSTATE BPH with obstruction/lower urinary tract symptoms Nocturia Urinary retention 12/31/2023 10:40 AM EDT COLONOSCOPY FLEXIBLE PROXIMAL DIAGNOSTIC Recall History of colonic polyps 04/01/2024 11:49 AM EDT Health Maintenance Due Date Last Done Comments DISCUSS TOBACCO CESSATION (REFER TO SMARTSET #8401) 1955 Alpha-1 Antitrypsin 1972 Cologuard 1999 Fecal Occult Blood Test 1999 10/04/1998 Sigmoidoscopy 1999 Zoster Vaccines (1 of 2) 2004 *COPD SEVERITY VERIFIED BY PFT 08/22/2015 DXA Scan 11/27/2017 11/28/2015 *BISPHONATE OR OTHER ACCEPTABLE MEDICATION NEEDED FOR OSTEOPOROSIS (REFER TO SMARTSET #9330) 06/14/2018 Depression, Most Recent Score >= 10 (will fire each visit until score < 10) 06/14/2020 06/13/2020 Pneumococcal Vaccine: 65+ Years (3 of 3 - PPSV23 or PCV20) 04/11/2021 04/11/2020, 08/05/2013 Diabetic Eye Exam 01/29/2022 01/29/2021 Colonoscopy 04/05/2022 04/05/2019, 03/24, 01/15/2016, Additional history exists Colorectal Cancer Screening 04/05/2022 COVID-19 Vaccine ( - season) 2023 Albumin/Creatinine Ratio 10/17/2023 023, 10/16/2021, [...] ASSESSMENT COMPLETED IN PAST YEAR FOR COPD 12/29/2024 12/30/2023 DTaP,Tdap,and Td Vaccines (2 - Td or Tdap) 01/17/2026 01/18/2016, 03/15/2004 VITAMIN D LEVEL ONCE IN A LIFETIME-USE SMARTSET# [id number] Completed 12/18/2015, 02/09/2015, 06/29/2014, Additional history exists [...] this encounter Medical Devices Implanted Type Area Group Therapy Counselor Device Identifier Shelf Expiration Date Model / Serial / Lot Stent Carotid [id number] - [id number] Implanted:Qty: 1 on 08/23/2013 at OR [facility] Right: Carotid [facility] VASCULAR DEVICES 02/21/2016 [id number] / / [id number] documented as of this encounter Procedures Procedure Name Priority Date/Time Associated Diagnosis Comments DC ECG ROUTINE ECG W/LEAST 12 LDS W/I&R Routine 12/30/2023 1:26 PM EDT HTN, goal below 140/90 documented in this encounter Results * EKG (12/30/2023 1:26 PM EDT) 12/30/2023 1:26 PM EDT Narrative Procedure Note Tomas Carr DO - 12/30/2023 1:26 PM EDT REASON FOR STUDY: preop;preop CONCLUSIONS: Normal sinus rhythm Cannot rule out Inferior infarct , age undetermined Cannot rule out Anterior infarct , age undetermined Abnormal ECG When compared with ECG of 27-Nov-2023 14:35, No significant change was found Ventricular Rate: 73 Atrial Rate: 73 DC Interval: 152 QRS Duration: 94 QT/QTc: 382/420 ms P-R-T [place]: 83 : 68 : 21 degrees Margaret Graf PA-C EKG [facility] documented in this encounter Visit Diagnoses Diagnosis Preoperative cardiovascular examination- Primary Pre-operative cardiovascular examination 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 No Code Status History Code Status Date Activated Date Inactivated Comments Full Code 07/10/2017 5:59 PM 07/13/2017 3:18 PM Thi s order reflects the patients wishes and were consensually agreed upon. Question Answer Comments Discussion of Advance Directives occurred with: Patient/Family Does the patient have a Living Will? Yes, not currently available Does the patient have Health Care Power of [place]? No Full Code 08/23/2013 8:39 AM 08/24/2013 2:49 PM This order reflects the patients wishes and were consensually agreed upon. Full Code 08/02/2013 7:49 PM 08/06/2013 12:55 AM Th is order reflects the patients wishes and were consensually agreed upon. Question Answer Comments Discussion of Advance Directives occurred with: Patient/Family Care Teams Utility Locator Relationship Specialty Start Date End Date Terry Resendez MD [address] [place] [address] PCP - General 04/07/1996 documented as of this encounter"
--- OUTSIDE RECORDS SUMMARY | 2024-03-15 04:18 | External Medical Summary | Summary of Care ---
Author Name Unknown Organization [facility] Address [address] [place] [address] Phone [phone] Care Team Providers Care Instructor Pilot Name Role Phone Sam Resendez MD Primary Care Provider Reason for Visit * Reason Onset Date Comments Medication Refill 12/29/2023 Encounter Details Date Type Department Care Team (Late st Contact Info) Description 12/29/2023 Refill [place] [id number] [place] [address] Sam Resendez MD [address] [place] [address] Chronic bilateral low back pain with right-sided sciatica Allergies Active Allergy Reactions Criticality Noted Date Comments Ciprofloxacin Hives 09/01/2017 Statins 11/15/2020 All statins Simvastatin 05/07/2006 Severe myalgia's documented as of this encounter (statuses as of 12/30/2023) Medications Medication Sig Dispensed Refills Start Date End Date Status ASPIRIN EC 81 MG PO TBECIndications:Esther nary atherosclerosis of [place] coronary artery Take one pill daily 100 [...] As needed 30 Tab 0 8 Active Nitroglycerin 0.4 MG Sublingual Tablet [...] or chew 180 Capsule 3 4 Active Silodosin 8 MG Oral Capsule (Rapaflo) Take 1 Capsule by mouth in the morning. 30 Capsule 6 4 Active Additional Information Patient not taking.Reported on 11/27/2023 Ondansetron HCl 4 MG Oral Tablet (Zofran)Indications: Nausea without vomiting TAKE ONE TABLET BY MOUTH EVERY 6 HOURS NEEDED FOR NAUSEA. 30 Tablet 0 4 Active Nitrofurantoin Monohyd Macro 100 MG Oral Capsule (Macrobid) Take 1 Capsule by mouth in the morning and 1 Capsule before bedtime. With food.. 30 Capsule 0 4 Active HYDROcodone-Acetamin ophen 5-325 MG Oral TabletIndications:Ch ronic bilateral low back pain with right-sided sciatica Take 1 Tablet by mouth 3 times a day as needed for Pain, Mild or Pain, Moderate. 30 day RX 90 Tablet 0 4 Active HYDROcodone-Acetamin ophen 5-325 MG Oral TabletIndications:Ch ronic bilateral low back pain with right-sided sciatica Take 1 Tablet by mouth 3 times a day as needed for Pain, Mild or Pain, Moderate. 30 day RX 90 Tablet 0 4 12/29/19 24 Discontinu ed(Refill) Hospital, Clinic, or Other Facility Administered Medication Ordered Dose Route Frequency Start Date End Date Status albuterol sulfate (PROVENTIL) (2.5 MG/3ML) 0.083% inhalation solution 2.5 mgIndications:COPD, severity to be determined (HCC) 2.5 mg NEBULIZER Q4H PRN 07/05/2019 Active documented as of this encounter (statuses as of 12/30/2023) Active Problems Problem Noted Date Diagnosed Date [...] as of this encounter (statuses as of 12/30/2023) Resolved Problems Problem Noted Date Diagnosed Date [...] as of this encounter (statuses as of 12/30/2023) Immunizations Name Administration Dates Next Due Pneumococcal [...] Telephone Encounter - Sam Resendez MD - 12/30/2023 12:13 PM EDTSigned Prescriptions: Disp Refills HYDROcodone-Acetaminophen 5-325 MG Oral Ta*90 Tab*0 Sig: Take 1 Tablet by mouth 3 times a day as needed for Pain, Mild or Pain, Moderate. 30 day RX Authorizing Provider: SAM RESENDEZ * Telephone Encounter - January Costa [facility] - 12/30/2023 10:59 AM EDTPending Prescriptions: Disp Refills HYDROcodone-Acetaminophen 5-325 MG Oral Ta*90 Tab*0 Sig: Take 1 Tablet by mouth 3 times a day as needed for Pain, Mild or Pain, Moderate. 30 day RX * Telephone Encounter - January Costa [facility] - 12/30/2023 10:59 AM EDT I have reviewed the patients controlled substance dispensing history in the Prescription Drug Monitoring Program in compliance with the [facility] regulations before prescribing a controlled substance. PDMP checked on 12/30/2023. Pending Prescriptions: Disp Refills HYDROcodone-Acetaminophen 5-325 MG Oral T*90 Tab*0 Sig: Take 1 Tablet by mouth 3 times a day as needed for Pain, Mild or Pain, Moderate. 30 day RX Last Visit: 10/21/2023 (in office), Visit date not found (telemedicine) Next Visit: 04/15/2024 Date medication was last filled: 11/27/23 Date medication is due for refill: 12/26/23 Pharmacy: [id number] [...] Centralized Clinical Pharmacy Services (CCPS) (Formerly Telepharmacy) [phone] 12/30/2023, 10:59 AM documented in this encounter Plan of Treatment Upcoming Encounters Date Type Department Care Team (Latest Contact Info) Description 12/30/2023 1:30 PM EDT Office Visit Cardiology, [facility] [address] [place] [address] Margaret Graf PA-C [address] [address] 12/31/2023 12:08 PM EDT Hospital Encounter OR [facility], Operating Room, [facility] - 4th Floor [address] [address] Mauricio Ramos MD [address] [place] [place] [address] 12/31/2023 12:08 PM EDT - 12/31/2023 1:41 PM EDT Surgery OR [facility], Operating Room, [facility] - [address] [place] [address] [address] [place] [address] Mauricio Ramos MD [address] [place] [address] [place] [place] [address] LASER VAPORIZATION PROSTATE 01/07/2024 1:30 PM EDT Nurse Only Urology, [facility] [address] [place] [address] [facility] Nurse Urology [facility] [address] [place] [address] 01/11/2024 9:00 AM EDT Office Visit Urology, [facility] [address] [place] [address] Mauricio Ramos MD [address] [place] [place] [address] 04/01/2024 11:49 AM EDT Hospital Encounter OR [facility], Operating Room, [facility] - [address] [place] [address] [address] [place] [address] Seamus Calixto, DO [address] [place] [address] 04/01/2024 11:49 AM EDT - 04/01/2024 12:30 PM EDT Surgery OR [facility], Operating Room, [facility] - [facility] Floor [address] [place] [address] Seamus Calixto, DO [address] [place] [address] COLONOSCOPY FLEXIBLE PROXIMAL DIAGNOSTIC 04/15/2024 2:00 PM EDT Office Visit [facility] [address] [place] [id number] Sam Resendez MD [address] [place] [address] 05/02/2024 3:40 PM EDT Office Visit Neurology [facility] [address] [facility] [place] [address] Elsie Capone MD [address] [facility] [place] [address] 06/06/2024 3:30 PM EDT Office Visit Cardiology, [facility] [address] [place] [address] Nargis Power CRNP [address] [facility] [place] [address] Scheduled Procedures Name Priority Associated Diagnoses Date/Ti me LASER VAPORIZATION PROSTATE BPH with obstruction/lower urinary tract symptoms Nocturia Urinary retention 12/31/2023 12:08 PM EDT COLONOSCOPY FLEXIBLE PROXIMAL DIAGNOSTIC Recall History of colonic polyps 04/01/2024 11:49 AM EDT Health Maintenance Due Date Last Done Comments DISCUSS TOBACCO CESSATION (REFER TO SMARTSET #5251) 1954 Alpha-1 Antitrypsin 1972 Cologuard 1999 Fecal Occult Blood Test 1999 10/04/1998 Sigmoidoscopy 1999 Zoster Vaccines (1 of 2) 2004 *COPD SEVERITY VERIFIED BY PFT 08/22/2015 DXA Scan 11/27/2017 11/28/2015 *BISPHONATE OR OTHER ACCEPTABLE MEDICATION NEEDED FOR OSTEOPOROSIS (REFER TO SMARTSET #4156) 06/14/2018 Depression, Most Recent Score >= 10 [...] 2024 06/19/2017, 06/27/2015, 06/29/2014, Additional history exists O2 ASSESSMENT COMPLETED IN PAST YEAR FOR COPD 10/21/2024 10/21/2023 GFR 11/17/2024 11/18/2023, 04/25, 01/29/2023, Additional history exists DTaP,Tdap,and Td Vaccines (2 - Td or Tdap) 01/17/2026 01/18/2016, 03/15/2004 VITAMIN D LEVEL ONCE IN A LIFETIME-USE SMARTSET# [id number] Completed 12/18/2015, 02/09/2015, 06/29/2014, Additional history exists [...] this encounter Medical Devices Implanted Type Area Filler Spreader Device Identifier Shelf Expiration Date Model / Serial / Lot Stent Carotid [id number] - [id number] Implanted:Qty: 1 on 08/23/2013 at OR [facility] Right: Carotid [facility] : VASCULAR DEVICES 02/21/2016 [id number] / / [id number] documented as of this encounter Visit Diagnoses Diagnosis BPH with obstruction/lower urinary tract symptoms- Primary Hypertrophy of prostate with urinary obstruction and other lower urinary tract symptoms (LUTS) BPH with obstruction/lower urinary tract symptoms Hypertrophy of prostate with urinary obstruction and other lower urinary tract symptoms (LUTS) Urinary retention Retention of urine, unspecified Nocturia 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 No Code Status History Code Status Date Activated Date Inactivated Comments Full Code 07/10/2017 5:59 PM 07/13/2017 3:18 PM Thi s order reflects the patients wishes and were consensually agreed upon. Question Answer Comments Discussion of Advance Directives occurred with: Patient/Family Does the patient have a Living Will? Yes, not currently available Does the patient have Health Care Power of Gate Technician? No Full Code 08/23/2013 8:39 AM 08/24/2013 2:49 PM This order reflects the patients wishes and were consensually agreed upon. Full Code 08/02/2013 7:49 PM 08/06/2013 12:55 AM Th is order reflects the patients wishes and were consensually agreed upon. Question Answer Comments Discussion of Advance Directives occurred with: Patient/Family Care Teams Instructor Pilot Relationship Specialty Start Date End Date Sam Resendez MD [address] [place] [address] PCP - General 04/07/1996 documented as of this encounter
--- OUTSIDE RECORDS SUMMARY | 2024-03-15 04:18 | External Medical Summary | Summary of Care ---
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 [employer] Forms Name Role Phone Terry Resendez MD Primary Care Provider [phone] Reason for Visit * Reason Onset Date Comments Advice 12/25/2023 Jannet Encounter Details Date Type Department Care Team (Late st Contact Info) Description 12/25/2023 Telephone Urology Anuja Adhikari [address] [place] [address] Mauricio Ramos MD [address] [place] [address] Advice (Jannet) Allergies Active Allergy Reactions Criticality Noted Date Comments Ciprofloxacin Hives 09/01/2017 Statins 11/15/2020 All statins Simvastatin 05/07/2006 Severe myalgia's documented as of this encounter (statuses as of 12/30/2023) Medications Medication Sig Dispensed Refills Start Date End Date Status ASPIRIN EC 81 MG PO TBECIndications:Esther nary atherosclerosis of [place] coronary artery Take one pill daily 100 [...] encounter Miscellaneous Notes * Telephone Encounter - Nargis Cardona CRNP - 12/30/2023 3:48 PM EDT It looks like he got an appt today for preop eval with Margaret. Patient has known CAD that is not amendable to PCI. * Telephone Encounter - Jonathan Maharaj OSA - 12/30/2023 10:56 AM EDT Patient self scheduled from the [facility] Date: 12/30/2023 Status: Andi Time: 1:30 PM Length: 30 Visit Type: RETURN CARDIOLOGY [[id number]] Reg Status: Verified Copay: $30.00 Provider: Margaret Graf PA-C Department: CARDIOLOGY [facility] Additional Resources Requested: Rescheduled: Confirmed: 12/30/2023 9:20 AM 12/30/2023 9:20 AM By: By: [employer] PATIENT SYSTEM, AUTOCONFIRM * Telephone Encounter - Yulia Cowart OSA - 12/29/2023 3:07 PM EDT Person calling: Becky- Urology Relationship to patient: provider office Number to return call: [phone] Reason for call: pre-op clearance Pharmacy: n/a Provider Name:Jannet Becky from urology calling to get clarification on what should be done for pt and if he will need raymundo rescheduled for his procedure. Pt scheduled for next available and fast pass. Procedure on 12/31/23 Please advise * Telephone Encounter - Luis Felipe Peters LPN - 12/29/2023 9:29 AM EDT Please see patient's MyChart reply. Scheduling please assist with a nurse visit for an EKG. * Telephone Encounter - Becky Shah OSA - 12/28/2023 3:54 PM EDT Called cardiology, see note below. Called and spoke with patient's regarding the need for a clearance appt and the possibility ofneeding to reschedule patient's surgery if appointment can not be arranged before patient's scheduled surgery on 12/31/23. * Telephone Encounter - Jordyn Garcia OSA - 12/28/2023 3:41 PM EDT Person calling: Becky- Urology Relationship to patient: provider office Number to return call: [phone] Reason for call: pre-op clearance Pharmacy: n/a Provider Name:Jannet Pena from urology calling to get patient scheduled for pre-op clearance, no appointments available in the time frame needed. Did schedule for next available and fast pass. Procedure on 12/31/23 Please advise Thank you LILY Ortega * Telephone Encounter - Dania Gan LPN - 12/28/2023 2:33 PM EDT Becky- This patient is going to need additional cardiac clearance prior to his surgery. Please reachout to cardiology to arrange and discuss with patient * Telephone Encounter - Luis Felipe Peters LPN - 12/28/2023 1:18 PM EDT Sent patient a MyChart to follow up with patient. * Telephone Encounter - Mauricio Ramos MD - 12/28/2023 8:20 AM EDT See cardiology notes and comments. Reevaluation prior to OR needed. It is unclear that this will beable to be completed in the next 3 days. I do not see a cardiology appointment since Urology telephone visit on December 24. If cardiology clearance will not be available, we will need to reschedule surgical intervention and postop appointments. Thanks, HM * Addendum Note - Nargis Cardona CRNP - 12/26/2023 4:38 PM EDTAddended by: NARGIS CARDONA on: 12/26/2023 04:38 PM Modules accepted: Orders * Telephone Encounter - Nargis Cardona CRNP - 12/26/2023 4:31 PM EDT Patient was seen and cleared on 11/27/2023; however, at that time had reported the following: Patient presents today feeling ok overall. He does endorse occasional angina episodes with exertion. Usually relieved with rest. He does report that he will use a rare SL NTG. Patient's spouse statesthat he rarely uses them because he is fearful if he needs them that he will have to go to the ED. He states they are no more frequent than before. Patient's last cardiac cath as noted below demonstrated high risk areas not amendable to PCI and would be reserved in the setting of a STEMI for intervention. Recommendation to maximize medication management. He has since started Imdur which seems to be helping. Pulled from office note. Patient is often fearful of taking his medications due to fear of admission and unfortunately is not a candidate for PCI. Can we talk to patient and to find out if the reported episode is something new or was It his usual discomfort but more intense? Has he been taking his medications as prescribed? Is the Imdur still helping overall? Was his Blood pressure high at home during the event? Is he having more episodes like this since the one he (his ) reported? Taking a lot of SL NTG at home? Can we have him come in for an EKG? * Telephone Encounter - Terry Resendez MD - 12/26/2023 11:23 AM EDT Notify Pt/ He was just recently seen by cardiology for preop eval but now with new symptoms. Hewill need to be seen again by cardiology before surgery (whether he was seen in ER or not). * Telephone Encounter - Annetta Sarmiento LPN - 12/25/2023 9:57 AM EDT I called and spoke with the patients and explained the importance of the patient being evaluated today. She states she is going to try to get him to the ED. Will follow for records. * Telephone Encounter - Annetta Sarmiento LPN - 12/25/2023 9:[address] Ramos, patient needs to be evaluated by either cardiology/pcp or ED services due to onset of cardiac symptoms prior to consideration of proceeding with surgery. Patient OK to proceed with antibiotic for UTI. * Telephone Encounter - Annetta Sarmiento LPN - 12/25/2023 9:24 AM EDT Patients with concerns for the patients condition last evening. She states the patient was in the garage and came inside c/o CP, chest heaviness, SOB. She states the patient denied his condition but she could visibly see heart beating in chest was huffing and puffing, could not breath, cutting wood with a table saw, having CP with SOB gave nitro x 2, she states she thought he needed a 3rd but by that time he was able to rest. This morning he has showered, and has denied CP and no heaviness in chest, but breathing is still labored. Advised to go to ED, she states he has refused due to fear of admission. Aware of urine results and antibiotic. * Telephone Encounter - Mauircio Ramos MD - 12/25/2023 9:03 AM EDT Patient's preoperative urine culture is positive. Prescription for Macrobid sent to the patient's pharmacy, should start today. Thanks, HM documented in this encounter Plan of Treatment Upcoming Encounters Date Type Department Care Team (Latest Contact Info) Description 12/31/2023 12:08 PM EDT Hospital Encounter OR [facility], Operating Room, [facility] - 4th Floor [address] [place] [address] Mauricio Ramos MD [address] [place] [address] 12/31/2023 12:08 PM EDT - 12/31/2023 1:41 PM EDT Surgery OR [facility], Operating Room, [facility] Floor [address] [place] [address] Mauricio Ramos MD [address] [place] [address] [place] [address] LASER VAPORIZATION PROSTATE 01/07/2024 1:30 PM EDT [facility] [address] [place] [address] Nurse Denys Urology Jared [address] [place] [address] 01/11/2024 9:00 AM EDT Office Visit Urology, [facility] [address] [place] [address] Mauricio Ramos MD [address] [place] [address] [place] [address] 04/01/2024 11:49 AM EDT Hospital Encounter OR [facility], Operating Room, [facility] - 4th Floor [address] [facility] [place] [address] Seamus Calixto, DO [address] [place] [address] 04/01/2024 11:49 AM EDT - 04/01/2024 12:30 PM EDT Surgery OR [facility], Operating Room, [facility] - 4th Floor [address] [facility] [place] [address] Seamus Calixto, DO [address] [facility] [place] [address] COLONOSCOPY FLEXIBLE PROXIMAL DIAGNOSTIC 04/15/2024 2:00 PM EDT [facility] [address] [place] [id number] Terry Resendez MD [address] [place] [address] 05/02/2024 3:40 PM EDT Office Visit Neurology [facility] [address] [facility] [place] [address] Elsie Capone MD [address] [facility] [place] [address] 06/06/2024 3:30 PM EDT Office Visit Cardiology, [facility] [address] [place] [address] Nargis Cardona CRNP [address] [place] [address] Scheduled Orders Name Type Priority Associated Diagnoses Orde r Schedule EKG COMPLETE (TRACING AND INTERP) EKG Routine Chest pain, unspecified type Ordered: 12/26/2023 Scheduled Procedures Name Priority Associated Diagnoses Date/Ti me LASER VAPORIZATION PROSTATE BPH with obstruction/lower urinary tract symptoms Nocturia Urinary retention 12/31/2023 12:08 PM EDT COLONOSCOPY FLEXIBLE PROXIMAL DIAGNOSTIC Recall History of colonic polyps 04/01/2024 11:49 AM EDT Health Maintenance Due Date Last Done Comments DISCUSS TOBACCO CESSATION (REFER TO SMARTSET #2552) 1954 Alpha-1 Antitrypsin 1972 Cologuard 1999 Fecal [...] D LEVEL ONCE IN A LIFETIME-USE SMARTSET# 46726 Completed 12/18/2015, 02/09/2015, 06/29/2014, Additional history exists [...] this encounter Medical Devices Implanted Type Area Profile Trimmer Device Identifier Shelf Expiration Date Model / Serial / Lot Stent Carotid [id number] - [id number] Implanted:Qty: 1 on 08/23/2013 [place] [facility] [place]: Carotid [facility] VASCULAR DEVICES 02/21/2016 [id number] / / [id number] documented as of this encounter Visit Diagnoses Diagnosis BPH with obstruction/lower urinary tract symptoms- Primary Hypertrophy of prostate with urinary obstruction and other lower urinary tract symptoms (LUTS) BPH with obstruction/lower urinary tract symptoms Hypertrophy of prostate with urinary obstruction and other lower urinary tract symptoms (LUTS) Urinary retention Retention of urine, unspecified Nocturia BPH with obstruction/lower urinary tract symptoms- Primary Hypertrophy of prostate with urinary obstruction and other lower urinary tract symptoms (LUTS) Chest pain, unspecified type BPH with obstruction/lower urinary tract symptoms Hypertrophy [...] the patient have Health Care Power of Sock Ironer? No Code Status History Code Status Date Activated Date Inactivated Comments Full Code 07/10/2017 5:59 PM 07/13/2017 3:18 PM Thi s order reflects the patients wishes and were consensually agreed upon. Question Answer Comments Discussion of Advance Directives occurred with: Patient/Family Does the patient have a Living Will? Yes, not currently available Does the patient have Health Care Power of Sock Ironer? No Full Code 08/23/2013 8:39 AM 08/24/2013 2:49 PM This order reflects the patients wishes and were consensually agreed upon. Full Code 08/02/2013 7:49 PM 08/06/2013 12:55 AM Th is order reflects the patients wishes and were consensually agreed upon. Question Answer Comments Discussion of Advance Directives occurred with: Patient/Family Care Teams Form Setter Metal [employer] Forms Relationship Specialty Start Date End Date Terry Resendez MD [address] [place] [address] PCP - General 04/07/1996 documented as of this encounter
--- OUTSIDE RECORDS SUMMARY | 2024-03-15 04:18 | External Medical Summary | Summary of Care ---
Author Name Unknown Organization [facility] Address [address] [place] [address] Phone [phone] Care Team Providers Care Supervisor Instrument Maintenance Name Role Phone Sam Resendez MD Primary Care Provider [phone] Reason for Visit * Auth/Cert Specialty Diagnoses / Procedures Referred By Kishore t Referred To Contact Diagnoses BPH with obstruction/lower urinary tract symptoms Nocturia Urinary retention BPH with obstruction/lower urinary tract symptoms [N40.1, N13.8] Nocturia [R35.1] Urinary retention [R33.9] Procedures PROSTATE, LASER VAPORIZATION LASER VAPORIZATION PROSTATE Mauricio Ramos MD [address] [place] [address] [facility] [address] [facility] [place] [address] Referral ID Status Reason Start Date Expiration Date Visits Re quested Visits Authorized [id number] Encounter Details Date Type Department Care Team (Latest Contact Info) Description 12/31/2023 9:07 AM EDT - 12/31/2023 1:55 PM EDT Hospital Encounter OR [facility], Operating Room, [facility] - 4th Floor [facility] [address] Mauricio Ramos MD [address] [place] [address] Pt Handout (on AVS) Discharge Disposition: Home - Self Care Allergies Active Allergy Reactions Criticality Noted Date Comments Ciprofloxacin Hives 09/01/2017 Statins 11/15/2020 All statins Simvastatin 05/07/2006 Severe myalgia's documented as of this encounter (statuses as of 01/01/2024) Medications Medication Sig Dispensed Refills Start Date End Date Status ASPIRIN EC 81 MG PO TBECIndications:Cor onary atherosclerosis of [place] coronary artery Take one [...] needed 30 Tab 0 06/15/20 18 Active Nitroglycerin 0.4 MG Sublingual [...] prior to injection. 6 mL 3 08/20/20 23 Active Additional Information Patient not taking.Reported on [...] chew 180 Capsule 3 10/22/19 24 Active Ondansetron HCl 4 MG Oral Tablet (Zofran)Indications :Nausea without vomiting TAKE ONE TABLET BY MOUTH EVERY 6 HOURS NEEDED FOR NAUSEA. 30 Tablet 0 12/16/19 24 Active Nitrofurantoin Monohyd Macro 100 MG Oral Capsule (Macrobid) Take 1 Capsule by mouth in the morning and 1 Capsule before bedtime. With food.. 30 Capsule 0 12/25/19 24 Active HYDROcodone-Acetami nophen 5-325 MG Oral TabletIndications:C hronic bilateral low back pain with right-sided sciatica Take 1 Tablet by mouth 3 times a day as needed for Pain, Mild or Pain, Moderate. 30 day RX 90 Tablet 0 12/30/19 24 Active Phenazopyridine HCl 200 MG Oral Tablet (Pyridium) Take 1 Tablet by mouth 3 times a day as needed for Other (Bladder spasms). After meals. 12 Tablet 0 12/31/19 24 Active traMADol HCl 50 MG Oral Tablet (Ultram) Take 1 Tablet by mouth every 6 hours as needed for Pain, Severe. 10 Tablet 0 12/31/19 24 Active Ondansetron HCl 4 MG Oral Tablet (Zofran)Indications :Nausea without vomiting TAKE ONE TABLET BY MOUTH EVERY 6 HOURS NEEDED FOR NAUSEA. 30 Tablet 0 07/17/20 23 024 Discontinued(Re fill) Silodosin 8 MG Oral Capsule (Rapaflo) Take 1 Capsule by mouth in the morning. 30 Capsule 6 11/18/19 24 024 Discontinued HYDROcodone-Acetami nophen 5-325 MG Oral TabletIndications:C hronic bilateral low back pain with right-sided sciatica Take 1 Tablet by mouth 3 times a day as needed for Pain, Mild or Pain, Moderate. 30 day RX 90 Tablet 0 11/27/19 24 024 Discontinued(Re fill) documented as of this encounter (statuses as of 01/01/2024) Active Problems Problem Noted Date Diagnosed Date [...] as of this encounter (statuses as of 01/01/2024) Resolved Problems Problem Noted Date Diagnosed Date [...] as of this encounter (statuses as of 01/01/2024) Immunizations Name Administration Dates Next Due Pneumococcal [...] Sign Reading Time Taken Comments Blood Pressure 148/80 12/31/2023 1:45 PM EDT Pulse 62 12/31/2023 1:45 PM EDT Temperature 35.8 C (96.4 F) 12/31/2023 1:45 PM ED T Respiratory Rate 16 12/31/2023 1:45 PM EDT Oxygen Saturation 97% 12/31/2023 1:45 PM EDT Inhaled Oxygen Concentration - - Weight 101.6 kg (224 lb) 12/31/2023 9:20 AM EDT Height 180.3 cm (5' 11") 12/31/2023 9:20 AM EDT Body Mass Index 31.24 12/31/2023 9:20 AM EDT documented in this encounter Functional [...] Yes 07/26/2017 documented as of this encounter Discharge Instructions * Discharge Instr - AVS* Mauricio Ramos MD - 12/31/2023 12:26 PM EDT Catheter to gravity drainage as instructed. Blood in and around the catheter is expected including the passage of small clots. A burning sensation is not unusual. Follow-up in the office as planned for removal of the catheter. Complete antibiotics as prescribed. Use pain medication as needed. No heavy lifting for 2-3 weeks to avoid bleeding. Contact our office or proceed to ER with any fevers, chills, nausea, vomiting or other worrisome symptoms. Proceed to ER if catheter stops draining or blood clots block catheter. No driving within 24 hours of anesthesia or while taking pain medication. OK to shower with catheter in place starting tomorrow, no tub baths. Restart aspirin in 3 days, Plavix in 5 days if urine clear. documented in this encounter Progress Notes * Mauricio Ramos MD - 12/31/2023 12:41 PM EDT [address] [address] OUTPATIENT SURGERY DISCHARGE SUMMARY NOTE Name: Patel León Location: OR [facility]/AL Date: 12/31/2023 Time: 12:41 PM Surgery Date: 12/31/2023 Procedure: LASER VAPORIZATION PROSTATE N/A Surgeon: Mauricio Ramos MD Discharge Diagnosis: Urinary retention, BPH, urethral stricture disease status post cystoscopy, urethral dilation, GreenLight vaporization of prostate. After examination of this patient, I have determined he is ready for discharge to home when the patient meets criteria. Discharge instructions were given to the patient. documented in this encounter H&P Notes * Mauricio Ramos MD - 12/31/2023 10:20 AM EDT GENERAL HISTORY & PHYSICAL EXAMINATION - Urology Service [address] [address] Name: Patel León Location: OR [facility]/OR Date: 12/31/2023 Time: 10:20 AM Date of H&P December 31, 2023 [id number] PCP: SAM RESENDEZ [facility] [place] [id number] Patel León is a 68 year old male, who presents for surgical management of his difficulties withurinary retention. Patient's positive preoperative culture for which he has been taking Bactrim is noted. He remains on clean intermittent catheterization. Patient's numerous cardiac comorbidities including ER visit for chest pain within the past week are noted. Recent clearance by Cardiology acknowledging high cardiac risk is appreciated. Patient has been off of his antiplatelets for 3 days. Patient's past notes reviewed. No new questions. Family present at bedside. BPH: Patient is being seen for BPH today. He has had the following symptoms: slow stream, nocturia, urgency, and frequency. Severity is moderate. He has tried tamsulosin and finasteride. CIC started October 2023. He has previously had Cystoscopy done November 2023 demonstrating short, obstructive prostate. Problem has been present for years. Problem is getting worse. @actMED@ Review of patient's allergies indicates: Allergen Reactions [...] Substances Vaping/E-Cigarette Devices Family History Problem Relation Age of Onset Heart Disorder Mother cabgx4 age 65 Arthritis Mother Arthritis Father Heart Disorder Father Cancer Father Arthritis Daughter Asthma Sister Arthritis Grandmother (Paternal) Past Surgical History: Procedure Laterality Date ANESTHESIA PROCEDURE NEC 08/05/2013 ANESTHESIA FOR PACU PROCEDURE OTHER performed by In & Out Surgery [facility] at OR [facility] CARDIAC CATH-CARDIOLOGY ONLY 2006 COLONOSCOPY W/ LESION REMOVAL, SNARE 06/05/09 done one 12mm polyp in distal sigmoid,,one 3mm in transverse colon, 5mm polyp in proximal sigmoid, diverticulosis /adenomatous/repeat colonoscopy in 1 yr COLONOSCOPY, DIAGNOSTIC (RECTUM) 01/15/2016 hyperplatic & serrated adenomatous polyp, diverticulosis, repeat 3 yrs/[facility] COLONOSCOPY, DIAGNOSTIC (RECTUM) N/A 04/05/2019 poor prep/diverticulosis sigmoid colon/biopsies show benign polyp/recall 3 years/COLONOSCOPY FLEXIBLE PROXIMAL DIAGNOSTIC performed by Dat Narayanan MD at OR [facility] CORONARY ANGIOGRAPHY W/LEFT HEART CATH 05/25/2017 CORONARY ANGIOGRAPHY W/LEFT HEART CATH performed by Martha Alford MD at CARDIAC LABS [facility] INFORMATION Ankle fx repair. IR VERTEBRAL AUGMENTATION TECH ONLY 2015 L2/ Dr Barcenas MISCELLANEOUS ORDER 08/1999 left lateral elbow ligament repair MISCELLANEOUS ORDER ([facility] ONLY) 09/2003 right rotator cuff repair/ [place] OTHER 09/2006 left rotator cuff repair OTHER 2007 bilateral hip replacement (Dr Benavidez) REMOVAL OF TONSILS, AGE 12+ TOTAL HIP REPLACEMENT & PROSTHESIS both hips, AVN TRANSCATH STENT-CAROTID ARTERY, W/EMBOL PROTECTION 08/23/2013 right carotid stent with cerebral angiogram. 08/23/13 Dr. Chen. [facility] OR TRANSCATH STENT-CAROTID ARTERY, W/EMBOL PROTECTION Xact Carotid Stent 08/05- safe up to 3T Past Medical History: Diagnosis Date Acute ischemic VBA thalamic stroke, left (HCC) 08/04/2013 Benign neoplasm of colon 06/05/2009 adenomatous/repeat colonoscopy in 1 yr Carotid artery stenosis CLASSICAL MIGRAINE WITHOU MENTION OF INTRACTABLE MIGRAINE 01/14/2002 Compression fracture of L2 lumbar vertebra (HCC) 10/16/2015 Coronary atherosclerosis of [place] coronary artery 2006 total occ RCA// 40% [...] occlusion) I65.29 Aphasia, post-stroke I69.320 Statin intolerance Z78.9 S/P angioplasty with stent Z95.820 Mild hearing loss of left ear H91.92 HTN, goal below 140/90 I10 CVA, old, speech/language deficit I69.328 Vitamin D deficiency E55.9 Type 2 diabetes mellitus with hemoglobin A1c goal of less than 7.0% ([facility]) E11.9 COPD, severity to be determined ([facility]) J44.9 MEDICATION USE AGREEMENT [id number] Senile osteoporosis M81.0 Aortic dissection, thoracic ([facility]) I71.019 Urinary retention R33.9 History of ischemic vertebrobasilar artery thalamic stroke Z86.73 Coronary artery disease with exertional angina ([facility]) I25.118 Hemiplegia, unspecified affecting right dominant side ([facility]) G81.91 Chronic bilateral low back pain with right-sided sciatica M54.41, G89.29 Spondylosis, lumbar, with myelopathy M47.16 DDD (degenerative disc disease), lumbar M51.36 Other specified peripheral vascular diseases ([facility]) I73.89 Hemiplga following cerebral infrc aff right dominant side ([facility]) I69.351 Diabetes mellitus with peripheral angiopathy ([facility]) E11.51 Acute ischemic stroke ([facility]) I63.9 Bradycardia R00.1 Hemiplegia and hemiparesis following unspecified cerebrovascular disease affecting right dominant side ([facility]) I69.951 Recurrent major depressive disorder ([facility]) F33.9 Major depressive disorder, single episode, moderate ([facility]) F32.1 Seizure, grand mal ([facility]) G40.409 BPH with obstruction/lower urinary tract symptoms N40.1, N13.8 Nocturia R35.1 Constitutional: (-) fever and (-) chills ENT: (-) stridor Cardiovascular: (+) improved chest pain Male : See HPI Psychiatry: (-) negative: no depression or anxiety Physical Exam Nursing note reviewed. Constitutional: General: He is not in acute distress. Appearance: Normal appearance. He is obese. He is not ill-appearing or toxic-appearing. HENT: Head: Normocephalic and atraumatic. Right Ear: External ear normal. Left Ear: External ear normal. Nose: Nose normal. Mouth/Throat: Mouth: Mucous membranes are moist. Eyes: Extraocular Movements: Extraocular movements intact. Cardiovascular: Pulses: Normal pulses. Heart sounds: Normal heart sounds. Pulmonary: Effort: Pulmonary effort is normal. No respiratory distress. Breath sounds: Normal breath sounds. Abdominal: Palpations: Abdomen is soft. Tenderness: There is no abdominal tenderness. Musculoskeletal: Cervical back: Normal range of motion and neck supple. Lymphadenopathy: Cervical: No cervical adenopathy. Skin: Coloration: Skin is not cyanotic or pale. Neurological: Mental Status: He is alert and oriented to person, place, and time. Psychiatric: Attention and Perception: Attention normal. Mood and Affect: Mood and affect normal. Impression/Plan: 68-year-old male with urinary retention. Findings were reviewed with the patient and family. Informed consent obtained for GreenLight vaporization of the prostate. Patient understands his increased risk associated with his recent antiplatelets use, coronary disease, vascular disease and history. Patient reports he has Bactrim for outpatient coverage. IV vancomycin on-call, SCDs for DVT prophylaxis. No new questions, wishes to proceed. Mauricio Ramos MD 10:20 AM 12/31/2023,mne documented in this encounter Nursing Notes * Radha Cervantes RN - 12/31/2023 1:54 PM EDT [place] [address] [facility] Discharge Note Name: Patel León Date: 12/31/2023 Time: 1:54 PM Discharge Disposition: Home Responsible adult as escort home: Transport Mode: Wheelchair Accompanied by: Javier Cervantes RN To: Car Belongings with patient: Yes Patient meets criteria to be transferred or discharged. * Kathy Gan RN - 12/31/2023 10:32 AM EDT 1028 patient complained of itching, noted 3 hives in left anticubital area. Dr Ramos made aware - instructed to run vancomycin at slower rate. Patient denies shortness of breath 1036 no further hives or itching noted, vancomycin continues to infuse * Celina Sears RN - 12/10/2023 10:01 AM EDT Patient identified by: name/birthdate Person taught: Spouse, per pt's request. Optime case procedure confirmed with patient/parent/guardian - no consent signed. Laterality confirmed as N/a Surgery date at time of Pre-Surgery Center Encounter: 12/31/2023. What procedure is patient having? Greenlight Laser Vaporization of the Prostate In an emergency, is patient willing to accept blood products or blood transfusion? Unknown. Do you need to place a blood bank order? No Anesthesia consent pool notified? N/A Anesthesia evaluation requested per case documentation? No Preop Evaluation Requested? Yes, follow-up will be documented on Anesthesia note Pt's 11/27/2023 Cardiology clearance note is in Epic. PATIENT EDUCATION SCREENING Person taught: Spouse Motivation Level: Asks Questions and Eager to Learn Language Barrier: No Physical Barrier: N/A METHOD: Lecture-telephone interview Patient Preferred Learning Methods: Lecture-Telephone interview Health History interview completed, questions answered, and the following patient instructions provided via telephone interview: Preoperative bathing instructions General preoperative instructions Medication instructions NPO instructions - If your normal morning routine take Amlodipine, Cymbalta, Imdur, Keppra, Metoprolol, and Prilosecthe morning of surgery. If you take metformin, hold it the evening before surgery as well. No tobacco products after midnight. Per Cardiology, pt to stop his low dose ASA 7 days prior and his Plavix 3 days prior. OUTCOME: State / Describe / Explain and Needs Reinforcement * Celina Sears RN - 12/09/2023 1:41 PM EDT Left message on mobile phone for return call @ [phone] by Maria Dolores at least one week prior tosurgery date or to leave a number where they can be reached . Instructed clinic open hours are M-F 8:00a- 4:00p. * Celina Sears RN - 12/09/2023 10:02 AM EDT Spoke w/ patient's on the phone. She had Patel will call back another time. * Celina Sears RN - 12/02/2023 10:04 AM EDT Left message on home phone for return call @ [phone] by Patient at least one week prior to surgery date or to leave a number where they can be reached . Instructed clinic open hours are M-F 8:00a- 4:00p. documented in this encounter OR Notes * OR Surgeon - Mauricio Ramos MD - 12/31/2023 12:28 PM EDT [facility]-[address] [address] OPERATIVE REPORT Name: Patel León Date: 12/31/2023 Time: 12:28 PM Location: OR [facility] Service: Urology Date of Operation: 12/31/2023 Pre-op Diagnosis: BPH with urinary retention. Post-op Diagnosis: Same, bulbar urethral stricture disease. Surgeon: Mauricio Ramos MD Assistants: None. Anesthesia: general anesthesia with laryngeal mask Operation: Dilation of urethral stricture, greenlight vaporization of prostate. Findings: Dense urethral stricture encountered in the bulbous urethra with false passage, open prostatic fossa after 64,000 joules of energy used with excellent hemostasis. Specimen and Disposition: None. Estimated Blood Loss: Minimal. Fluids: <1000 cc. Urine Output: Not measured. Drains/Implants: 22 Serbian Morgan catheter with 15 mL of sterile water in the balloon. Complications: None. Postoperative Condition: Stable. Indications and History: Patient is a comorbid 68-year-old male with difficulties with urinary retention found have an obstructive prostate at the time of office cystoscopy. Patient has been dependent on clean intermittent catheterization empty his bladder. Recent difficulties with chest pain with conditional clear by cardiology are appreciated. Patient is here today for GreenLight vaporization of his prostate as plannedto manage his difficulties with urinary retention. Family understands the risk of persistent urinary retention after completion of intervention. Patient has been covered with preoperative Macrobid for positive preoperative urine culture. Perioperative vancomycin provided for antibiotic coverage andSCDs used for DVT prophylaxis. Please see H&P and outpatient notes for further details. Description of Operation: Patient was properly identified and brought into the operative suite after identification of appropriate consent in the chart. general anesthesia with laryngeal mask was initiated and patient was prepped and draped in the standard fashion for this procedure. realtime court reporter-out procedure was followed. A well lubricated GreenLight laser resectoscope visual obturator was introduced through the meatus into the urethra using a visual obturator. Urethra demonstrated dense stricture disease in the bulbar urethra. Attempts at passage met with significant resistance and an anterior false passage was appreciated. True lumen of the urethra was catheterized using a Sensor tip wire followed by a 5 Serbian open catheter which demonstrated hydronephrotic drip of concentrated urine. Using the wire as a guide the urethra was able to be dilated using a 21 Serbian cystoscope rigid sheath. Prostatic fossa was entered . Prostatic urethra demonstrated moderate lateral lobe prostatic obstruction and with edematous, blanched tissue . Bladder neck was visualized and bladder was entered. Sterile irrigation was usedto distend the bladder which was noted to have mild mucosal inflammation, no sterile debris and reactive changes from catheterization with grade 3 trabeculation with cellules. Bladder was circumferentially inspected. Ureteral orifices were noted to be in the normal anatomic position bilaterally, well removed from the bladder neck. Using a side fire GreenLight laser fiber circumferential vaporization of the prostate was undertaken. Care was taken to avoid any resection distal to the verumontanum. Ureteral orifices were noted to be intact at the end of the case. Relaxing incisions were made at the 5 and 7 o'clock position at the bladder neck to avoid future bladder neck contracture. Vaporization was continued until the prostate was noted to be visually unobstructed. This took place after approximately 64,000 joules of energy were used. Hemostasis was obtained as necessary using coagulation settings. After resection was complete bladder was partially distended and wire was replaced via the GreenLight scope to allow for easier passage of Morgan. After this was completed resectoscope was removed. Twenty-two Serbian Morgan catheter with cruciform incision at the tip was placed over the wire with return of clear irrigant and 15 mL of sterile water in the balloon. Catheter was placed to gra vity drainage and anesthesia was reversed. Patient was transferred to the recovery room in stable condition. Postoperative Care: Patient will be discharged home with following prescriptions: Pyridium and Ultram. Outpatient appointment for trial of void and postoperative check were confirmed. Patient is instructed to contact our office with any fevers, chills, nausea, vomiting or other postoperative concerns. Attestation: Mauricio Ramos MD performed the case. documented in this encounter Miscellaneous Notes * Pt Handout (on AVS) - Radha Cervantes RN - 12/31/2023 1:21 PM EDT Images from the original note were not included. [id number] Discharge Instructions: Caring for Your Leg Bag You are going home with a urinary catheter and collection device (drainage bag) in place. One type of collection device is called a leg bag. This is a smaller drainage bag that you can wear on your leg to collect urine during the day. The bag can fit under your clothing. You can move around with greater ease when using a leg bag instead of a larger collection bag. You were shown how to care for your catheter in the hospital. This sheet will help you remember those steps when you are at home. Home care Wash your hands thoroughly before and after you care for your catheter or collection device. Gather your supplies: o Alcohol wipes o Soap and water o Towel and washcloth o Leg strap and leg bag Use soap and water to wash the area where your catheter enters your body. Rinse well. Secure the bag stoll to your leg: o Put the leg band high on your thigh with the product label pointing away from your leg. o Stretch the leg band in place and fasten. o Place the catheter tubing over the bag and secure it. You may secure it with a Velcro tab or other method, depending on the product you use. Be sure to leave enough loop in the catheter above the leg band so you won't pull on the tube. o Every 4 to 6 hours, reposition the band. This will prevent pressure from the elastic on your leg.You can do this by changing the bag to the other leg or by raising or lowering the leg band. o Wash the band as often as needed. You can hand wash and dry the leg band. Place the bag in the bag stoll. Clean the urine bag end of the catheter and your catheter port with an alcohol wipe. Place a towel under the bag and port to keep urine from dripping onto your leg. Before connecting the outlet valve at the bottom of the bag to the catheter, make sure that it is firmly closed. Flip the valve up toward the bag. It needs to snap firmly in place. Don't tug on the tubing. Be gentle. Attach the urine bag to the end of the catheter. Insert the connector snugly into the catheter port. You can prevent dribbling urine by bending the catheter tubing just below the tip and holding it while you disconnect it from the catheter. Be careful to keep the tip clean while connecting the leg bag tubing to the catheter. This keeps germs from getting into the system. Drain the bag when it's full. To drain the bag, flip the clamp downward. Direct the flexible outlet tube to control the flow of urine. You don?t have to disconnect the leg bag from the catheter toempty it. Raise your leg up to the edge of the toilet to reach the leg bag. Then you can empty the bag directly into the toilet. This way, you won?t need to bend over, which may be uncomfortable. Keep the leg bag clean. Your healthcare provider may advise that you use a certain solution to clean the bag. Solutions that may be advised include: o 2 parts vinegar and 3 parts water o 1 tablespoon of chlorine bleach mixed with a half cup of water Ask your healthcare provider how often you should clean your bag and what solution you should use ?to reduce odor and keep the bag free of germs. Shake the solution a bit and allow it to remain in the bag for 30 minutes. Drain the solution and rinse the bag with cold tap water. Hang the bag to drain and air dry. Remember to keep the drainage bag below the level of your bladder for correct drainage. Follow-up Make a follow-up appointment as directed by your healthcare provider. When to call your healthcare provider Call your healthcare provider right away if you have any of the following: Redness, swelling, or warmth around the catheter entry site Pus draining from your catheter entry site or into the catheter tubing and bag Blood, clots, or floating debris in the urine Nausea and vomiting Shaking chills Fever above 100.4F ( 38C), or as directed by your healthcare provider Pain that is not eased by medicine Catheter that falls out or is dislodged Last Reviewed Date: 10/22/202119993381-2024 [employer]. All rights reserved. This information is not intended as a substitute for professional medical care. Always follow your healthcare professional's instructions. * Pt Handout (on AVS) - Radha Cervantes RN - 12/31/2023 1:21 PM EDT Images from the original note were not included. [id number] Discharge Instructions: Caring for Your Indwelling Urinary Catheter You have been discharged with an indwelling urinary catheter. It's also called a Morgan catheter. A catheter is a thin, flexible tube. An indwelling urinary catheter has 2 parts. The first part is a tube that drains urine from your bladder. The second part is a bag or other device that collects the urine. The most important thing to remember is that you want to prevent infection. Always wash your hands before handling your catheter bag or tubing. Draining the bedside bag Wash your hands with soap and clean, running water. Or use an alcohol-based hand maintenance shop manager that contains at least 60% alcohol. Hold the drainage tube over a toilet or measuring container. Unclamp the tube and let the bag drain. Don?t touch the tip of the drainage tube or let it touch the toilet or container. You don't need to rinse the bag or drainage tube. Cleaning the drainage tube When the bag is empty, clean the tip of the drainage tube with an alcohol wipe. Clamp the tube. Reinsert the tube into the pocket on the drainage bag. Cleaning your skin and tubing Clean the skin near the catheter with soap and water. Wash your genital area from front to back. Wash the catheter tubing. Always wash the catheter in the direction away from your body. You will be told when and how to change your bag and tubing. Don?t try to remove the catheter by yourself. You may shower with the catheter in place. Emptying a leg bag Wash your hands. Remove the stopper on the bag. Drain the bag into the toilet or a measuring container. Don?t let the tip of the drainage tube touch anything, including your fingers. Clean the tip of the drainage tube with alcohol. Replace the stopper. Follow-up care Make a follow-up appointment, or as directed by your healthcare provider. When to call your healthcare provider Call your healthcare provider right away if you have any of the following: Fever of 100.4F ( 38C) or higher, or as directed by your provider Chills Leakage around the catheter insertion site Increased spasms (uncontrollable twitching) in your legs, belly (abdomen), or bladder. Occasional mild spasms are normal. Burning in the urinary tract, penis, or genital area Nausea and vomiting Aching in the lower back Cloudy or bloody (pink or red) urine, sediment or mucus in the urine, or bad- smelling urine Last Reviewed Date: 04/24/202219993531-0964 [employer]. All rights reserved. This information is not intended as a substitute for professional medical care. Always follow your healthcare professional's instructions. documented in this encounter Plan of Treatment Upcoming Encounters Date Type Department Care Team (Latest Contact Info) Description 01/07/2024 1:30 PM EDT [facility] [address] [place] [address] Nurse Denys Urology Jared [address] [place] [address] 01/11/2024 9:00 AM EDT Office Visit Urology, [facility] [address] [place] [address] Mauricio Ramos MD [address] [address] [place] [address] 04/01/2024 11:49 AM EDT Hospital Encounter OR [facility], Operating Room, [facility] - 4th Floor [address] [facility] [place] [address] Seamus Calixto, DO 132 [facility] [place] [address] 04/01/2024 11:49 AM EDT - 04/01/2024 12:30 PM EDT Surgery OR [facility], Operating Room, [facility] Floor [address] [facility] [place] [address] Seamus Calixto, DO 132 [facility] [place] [address] COLONOSCOPY FLEXIBLE PROXIMAL DIAGNOSTIC 04/15/2024 2:00 PM EDT Office Visit [facility] [address] [place] [phone] Sam Resendez MD [address] [place] [address] 05/02/2024 3:40 PM EDT Office [facility] [address] [place] [address] Elsie Capone MD [address] [place] [address] 06/06/2024 3:30 PM EDT Office Visit Cardiology, [facility] [address] [place] [address] Nargis Power CRNP [address] [place] [address] Scheduled Procedures Name Priority Associated Diagnoses Date/Ti me COLONOSCOPY FLEXIBLE PROXIMAL DIAGNOSTIC Recall History of colonic polyps 04/01/2024 11:49 AM EDT Health Maintenance Due Date Last Done Comments DISCUSS TOBACCO CESSATION (REFER TO SMARTSET #2925) 1955 Alpha-1 Antitrypsin 1972 Cologuard 1999 Fecal [...] D LEVEL ONCE IN A LIFETIME-USE SMARTSET# 88640 Completed 12/18/2015, 02/09/2015, 06/29/2014, Additional history exists [...] this encounter Medical Devices Implanted Type Area Personal Development Coach Device Identifier Shelf Expiration Date Model / Serial / Lot Stent Carotid [id number] - [id number] Implanted:Qty: 1 on 08/23/2013 at OR [facility] [place] Right: Carotid [facility] : VASCULAR DEVICES 02/21/2016 [id number] / / [id number] documented as of this encounter Procedures Procedure Name Priority Date/Time Associated Diagnosis Comments GLUCOSE METER, POINT OF CARE ALTA 12/31/2023 9:52 AM EDT documented in this encounter Results * (ABNORMAL) GLUCOSE METER, POINT OF CARE (12/31/2023 9:52 AM EDT) Glucose Meter 130(H) 70 - 120 mg/dL 12/31/2023 9:59 AM EDT [facility] Blood Whole blood specimen / Unknown 12/31/2023 9:52 AM EDT 12/31/2023 9:59 AM EDT Mauricio Ramos MD LAB POINT OF CAR E TEST DOCKED DEVICE UNSOLICITED RESULTS [facility] [address] [facility] [place] [address] documented in this encounter Visit Diagnoses Diagnosis Urinary retention- Primary Retention of urine, unspecified BPH with obstruction/lower urinary tract symptoms Hypertrophy of prostate with urinary obstruction and other lower urinary tract symptoms (LUTS) Uropathy, obstructive Urinary obstruction, unspecified BPH with obstruction/lower urinary tract symptoms Hypertrophy of prostate with urinary obstruction and other lower urinary tract symptoms (LUTS) Nocturia History of colonic polyps Personal history of colonic polyps documented in this encounter Administered Medications Inactive Administered Medications - up to 3 most recent administrations Medication Order MAR Action Action Date Dose Rate Site Acetaminophen (Ofirmev) inj 1,000 mg 1,000 mg, Intravenous, PREOP, 1 dose, First dose on Alanna 12/31/23 at 0945, Administer over 15 Minutes, Administer undiluted over 15 minutes! NOTE: Maximum of 4000 mg per 24 hours of acetaminophen from all acetaminophen containing products., Pre-Op, Indication: Patient is strictly NPO New Bag 12/31/2023 9:54 AM EDT 1,000 mg 400 mL/hr celecoxib (CeleBREX) cap 200 mg 200 mg, Oral, ONCE, On Alanna 12/31/23 at 0945, For 1 dose, Do not use in patients with GFR <60 or patients receiving ketorolac., Pre-Op Given 12/31/2023 9:44 AM EDT 200 mg isolyte-S pH 7.4 infusion Intravenous, at 75 mL/hr, Plasma-LYTE 148, isolyte-S, and isolyte-S pH 7.4 are considered equivalent - including for MAR barcode scanning., CONTINUOUS, Starting on Alanna 12/31/23 at 0945, Until Thu12/31/23 at 1755, Pre-Op Restarted 12/31/2023 11:18 AM EDT Continue from Pre-Op 12/31/2023 11:09 AM EDT 75 mL/hr New Bag 12/31/2023 9:54 AM EDT 75 mL/hr Vancomycin (Vancocin) 1500 mg in NSS 250 mL ivpb LOCKED DOSE 1,500 mg, IV Piggyback, PREOP, 1 dose, First dose on Thu12/31/23 at 0945, +++ SDS for 12/30 +++ New Bag 12/31/2023 10:25 AM EDT 1,500 mg 193.33 mL /hr documented in this encounter Active and Recently Administered Medications Times are shown in EDT. Scheduled Medication Order 12/29/2023 12/30/2023 12/31/2023 Acetaminophen (Ofirmev) inj 1,000 mg (COMPLETED) 1,000 mg, Intravenous, PREOP, 1 dose, First dose on Alanna 12/31/23 at 0945, Administer over 15 Minutes, Administer undiluted over 15 minutes! NOTE: Maximum of 4000 mg per 24 hours of acetaminophen from all acetaminophen containing products., Pre-Op, Indication: Patient is strictly NPO 0954 (New Bag - Prov ider: Kathy Gan RN) celecoxib (CeleBREX) cap 200 mg (COMPLETED) 200 mg, Oral, ONCE, On Alanna 12/31/23 at 0945, For 1 dose, Do not use in patients with GFR <60 or patients receiving ketorolac., Pre-Op 0944 (Given - Provid er: Kathy Gan RN) Pneumococcal 20-Alena Conj Vacc (Prevnar 20) inj 0.5 mL 0.5 mL, Intramuscular, ONCE, On Alanna 12/31/23 at 1315, For 1 dose, Add Lot# and Personal Development Coach in Immunization Info section of MAR, Post-op 1315 (Due) Vancomycin (Vancocin) 1500 mg in NSS 250 mL ivpb LOCKED DOSE (COMPLETED) 1,500 mg, IV Piggyback, PREOP, 1 dose, First dose on Alanna 12/31/23 at 0945, +++ SDS for 12/30 +++ 1025 (New Bag - Prov ider: Kathy Gan RN) Continuous Medication Order 12/29/2023 12/30/2023 12/31/2023 isolyte-S pH 7.4 infusion Intravenous, at 75 mL/hr, Plasma-LYTE 148, isolyte-S, and isolyte-S pH 7.4 are considered equivalent - including for MAR barcode scanning., CONTINUOUS, Starting on Alanna 12/31/23 at 0945, Until Alanna 12/31/23 at 1755, Pre-Op 0954 (New Bag - Prov ider: Kathy Gan RN)1109 (Continue from Pre-Op - Provider: TRICIA Black)1117 (Paused - Provider: TRICIA Black - Comment: Switch to gravity)1118 (Restarted - Provider: TRICIA Black)1147 (Anes Intra-Op Fluid - Provider: Mariaelena Tavares CRNA)1236 (Anes Intra-Op Fluid - Provider: TRICIA Black) isolyte-S pH 7.4 infusion Intravenous, at 100 mL/hr, For Periop use. Plasma-LYTE 148, isolyte-S, and isolyte-S pH 7.4 are considered equivalent - including for MAR barcode scanning., CONTINUOUS, Starting on Alanna 12/31/23 at 1315, Until Alanna 12/31/23 at 1714, Post-op 1315 (Due) PRN Medication Order 12/29/2023 12/30/2023 12/31/2023 HYDROmorphone (Dilaudid) inj 1 mg 1 mg, IV Push, Q3H PRN Pain, Severe, Starting on Alanna 12/31/23 at 1240, Until Alanna 12/31/23 at 1755, Post-op oxyCODONE-acetaminophen 5-325 mg per tab (Percocet) 1 Tablet 1 Tablet, Oral, Q4H PRN Pain, Moderate, Starting on Alanna 12/31/23 at 1240, Until Alanna 12/31/23 at 1755, Maximum of 4 grams (4000 mg) of acetaminophen per day, Post-op sodium chloride IR 0.9 % irrigation (CANCELED) ONCE PRN INTRA PROCEDURE, Starting on Alanna 12/31/23 at 1222, Until Alanna 12/31/23 at 1231, Intra-Op 1222 (Given - Provid er: Mauricio Ramos MD - Comment: op site) documented in this encounter Advance Directives Latest Code Status on File Code Status Date Activated Date Inactivated Comments Full Code 12/31/2023 12:41 PM 12/31/2023 5:55 PM This o rder reflects the patients wishes and were consensually agreed upon. Question Answer Comments Discussion of Advance Directives occurred with: Patient Code Status History Code Status Date Activated Date Inactivated Comments Full Code 12/31/2023 9:15 AM 12/31/2023 12:41 PM This o rder reflects the patients wishes and were consensually agreed upon. Question Answer Comments Discussion of Advance Directives occurred with: Patient Full Code 07/26/2017 6:55 PM 07/27/2017 8:00 PM This order reflects the patients wishes and were consensually agreed upon. Question Answer Comments Discussion of Advance Directives occurred with: Patient Does the patient have a Living Will? No Does the patient have Health Care Power of Metal Tube Cutter? No Full Code 07/10/2017 5:59 PM 07/13/2017 3:18 PM Thi s order reflects the patients wishes and were consensually agreed upon. Question Answer Comments Discussion of Advance Directives occurred with: Patient/Family Does the patient have a Living Will? Yes, not currently available Does the patient have Health Care Power of Metal Tube Cutter? No Full Code 08/23/2013 8:39 AM 08/24/2013 2:49 PM This order reflects the patients wishes and were consensually agreed upon. Care Teams Supervisor Instrument Maintenance Relationship Specialty Start Date End Date Sam Resendez MD [address] [place] [address] PCP - General 04/07/1996 documented as of this encounter
--- OUTSIDE RECORDS SUMMARY | 2024-03-15 04:19 | External Medical Summary | Summary of Care ---
Author Name Unknown Organization [facility] Address [address] [place] [address] Phone [phone] Care Team Providers Care Campaign Developer Name Role Phone Terry Resendez MD Primary Care Provider [phone] Reason for Visit * Reason Onset Date Comments Advice 12/25/2023 Jannet Encounter Details Date Type Department Care Team (Late st Contact Info) Description 12/25/2023 Telephone Urology Anuja Adhikari [address] [place] [address] [place] [address] Mauricio Ramos MD [address] [place] [address] Advice (Jannet) Allergies Active Allergy Reactions Criticality Noted Date Comments Ciprofloxacin Hives 09/01/2017 Statins 11/15/2020 All statins Simvastatin 05/07/2006 Severe myalgia's documented as of this encounter (statuses as of 12/28/2023) Medications Medication Sig Dispensed Refills Start Date End Date Status ASPIRIN EC 81 MG PO TBECIndications:Esther nary atherosclerosis of rampart coronary artery Take one pill daily 100 [...] Additional Information Patient not taking.Reported on 11/27/2023 HYDROcodone-Acetamin ophen 5-325 MG Oral TabletIndications:Ch ronic bilateral low back pain with right-sided sciatica Take 1 Tablet by mouth 3 times a day as needed for Pain, Mild or Pain, Moderate. 30 day RX 90 Tablet 0 11/27/2023 Active Ondansetron HCl 4 MG Oral Tablet (Zofran)Indications: Nausea without vomiting TAKE ONE TABLET BY MOUTH EVERY 6 HOURS NEEDED FOR NAUSEA. 30 Tablet 0 12/16/2023 Active Nitrofurantoin Monohyd Macro 100 MG Oral Capsule (Macrobid) Take 1 Capsule by mouth in the morning and 1 Capsule before bedtime. With food.. 30 Capsule 0 12/25/2023 Active Hospital, Clinic, or Other Facility Administered Medication Ordered Dose Route Frequency Start Date End Date Status albuterol sulfate (PROVENTIL) (2.5 MG/3ML) 0.083% inhalation solution 2.5 mgIndications:COPD, severity to be determined (HCC) 2.5 mg NEBULIZER Q4H PRN 07/05/2019 Active documented as of this encounter (statuses as of 12/28/2023) Active Problems Problem Noted Date Diagnosed Date [...] as of this encounter (statuses as of 12/28/2023) Resolved Problems Problem Noted Date Diagnosed Date [...] as of this encounter (statuses as of 12/28/2023) Immunizations Name Administration Dates Next Due Pneumococcal [...] encounter Miscellaneous Notes * Telephone Encounter - Becky Shah OSA [...] patient: provider office Number to return call: [phone] Reason for call: pre-op clearance Pharmacy: n/a [...] results and antibiotic. * Telephone Encounter - Mauricio Ramos MD - 12/25/2023 9:03 AM EDT Patient's preoperative urine culture is positive. Prescription for Macrobid sent to the patient's pharmacy, should start today. Thanks, HM documented in this encounter Plan of Treatment Upcoming Encounters Date Type Department Care Team (Latest Contact Info) Description 12/31/2023 12:08 PM EDT Hospital Encounter OR [facility], Operating Room, [facility] - 4th Floor [address] [place] [address] Mauricio Ramos MD [address] [place] [address] [place] [address] 12/31/2023 12:08 PM EDT - 12/31/2023 1:41 PM EDT Surgery OR [facility], Operating Room, [facility] Floor [address] [place] [address] Mauricio Ramos MD [address] [place] [address] LASER VAPORIZATION PROSTATE 01/07/2024 1:30 PM EDT Nurse Only Urology, [facility] [address] [place] [address] Denys Nurse Urology Jared [address] [place] [address] 01/11/2024 9:00 AM EDT Office Visit Urology, [facility] [address] [place] [address] Mauricio Ramos MD [address] [place] [address] 01/21/2024 7:30 AM EDT Office Visit Cardiology, [facility] [address] [place] [address] Myrna Wong CRNP [address] [facility] [place] [address] 04/01/2024 11:49 AM EDT Hospital Encounter OR [facility], Operating Room, [facility] - 4th Floor [address] [facility] [place] [address] Seamus Calixto, DO 132 [facility] [place] [address] 04/01/2024 11:49 AM EDT - 04/01/2024 12:30 PM EDT Surgery OR [facility], Operating Room, [facility] - 4th Floor [address] [facility] [place] [address] Seamus Calixto, DO [facility] [place] [address] COLONOSCOPY FLEXIBLE PROXIMAL DIAGNOSTIC 04/15/2024 2:00 PM EDT Office Visit [facility] [address] [place] [phone] Terry Resendez MD [address] [place] [address] 05/02/2024 3:40 PM EDT Office Visit Neurology [facility] [address] [facility] [place] [place] [address] Elsie Capone MD 200 [facility] [place] [address] 06/06/2024 3:30 PM EDT Office Visit Cardiology, [facility] [address] [place] [address] Nargis Cardona CRNP [address] [place] [address] Scheduled Orders Name Type Priority Associated Diagnoses [...] Comments DISCUSS TOBACCO CESSATION (REFER TO SMARTSET #4884) 1954 Alpha-1 Antitrypsin 1972 Cologuard 1999 Fecal Occult Blood Test 1999 10/04/1998 Sigmoidoscopy 1999 Zoster Vaccines (1 of 2) 2004 *COPD SEVERITY VERIFIED BY PFT 08/22/2015 DXA Scan 11/27/2017 11/28/2015 *BISPHONATE OR OTHER ACCEPTABLE MEDICATION NEEDED FOR OSTEOPOROSIS (REFER TO SMARTSET #7406) 06/14/2018 Depression, Most Recent Score >= 10 (will fire each visit until score < 10) 06/14/2020 06/13/2020 Pneumococcal Vaccine: 65+ Years (3 of 3 - PPSV23 or PCV20) 04/11/2021 04/11/2020, 08/05/2013 Diabetic Eye Exam 01/29/2022 01/29/2021 Colonoscopy 04/05/2022 04/05/2019, 03/24, 01/15/2016, Additional history exists Colorectal Cancer Screening 04/05/2022 COVID-19 Vaccine ( season) 2023 Albumin/Creatinine Ratio 10/17/20232 023, 10/16/2021, 10/11/2019, Additional history exists Diabetic [...] D LEVEL ONCE IN A LIFETIME-USE SMARTSET# 65701 Completed 12/18/2015, 02/09/2015, 06/29/2014, Additional history exists [...] this encounter Medical Devices Implanted Type Area Fabrication And Layout Craftsman Device Identifier Shelf Expiration Date Model / Serial / Lot Stent Carotid [id number] - [id number] Implanted:Qty: 1 on 08/23/2013 at OR [facility] [place] Right: Carotid [facility] : VASCULAR DEVICES 02/21/2016 [id number] / / [id number] documented as of this encounter Visit Diagnoses [...] the patient have Health Care Power of Bun Panner? No Code Status History Code Status Date Activated Date Inactivated Comments Full Code 07/10/2017 5:59 PM 07/13/2017 3:18 PM Thi s order reflects the patients wishes and were consensually agreed upon. Question Answer Comments Discussion of Advance Directives occurred with: Patient/Family Does the patient have a Living Will? Yes, not currently available Does the patient have Health Care Power of Bun Panner? No Full Code 08/23/2013 8:39 AM 08/24/2013 2:49 PM This order reflects the patients wishes and were consensually agreed upon. Full Code 08/02/2013 7:49 PM 08/06/2013 12:55 AM Th is order reflects the patients wishes and were consensually agreed upon. Question Answer Comments Discussion of Advance Directives occurred with: Patient/Family Care Teams Campaign Developer Relationship Specialty Start Date End Date Terry Resendez MD [address] [place] [address] PCP - General 04/07/1996 documented as of this encounter
--- OUTSIDE RECORDS SUMMARY | 2024-03-15 04:19 | External Medical Summary | Summary of Care ---
Author Name Unknown Organization [facility] Address [address] [place] [address] Phone [phone] Care Team Providers Care Clinic Mgr Name Role Phone Terry Resendez MD Primary Care Provider [phone] Reason for Visit * Reason Onset Date Comments Advice 12/25/2023 Jannet Encounter Details Date Type Department Care Team (Late st Contact Info) Description 12/25/2023 Telephone Urology Anuja Adhikari [address] [place] [address] [place] [address] Mauricio Ramos MD [address] [place] [address] [place] [address] Advice (Jannet) Allergies Active Allergy Reactions Criticality Noted Date Comments Ciprofloxacin Hives 09/01/2017 Statins 11/15/2020 All statins Simvastatin 05/07/2006 Severe myalgia's documented as of this encounter (statuses as of 12/29/2023) Medications Medication Sig Dispensed Refills Start Date End Date Status ASPIRIN EC 81 MG PO TBECIndications:Esther nary atherosclerosis of [place] coronary artery Take one pill daily 100 [...] as of this encounter (statuses as of 12/29/2023) Active Problems Problem Noted Date Diagnosed Date [...] as of this encounter (statuses as of 12/29/2023) Resolved Problems Problem Noted Date Diagnosed Date [...] as of this encounter (statuses as of 12/29/2023) Immunizations Name Administration Dates Next Due Pneumococcal [...] encounter Miscellaneous Notes * Telephone Encounter - Yulia Cowart OSA - 12/29/2023 3:07 PM EDT Person calling: Becky- Urology Relationship to patient: provider office Number to return call: [phone] Reason for call: pre-op clearance Pharmacy: n/a Provider Name:Jannet Pena from urology calling to get clarification on [...] 12/28/2023 3:41 PM EDT Person calling: Becky- Urolognapoleon Relationship to patient: provider office Number to return call: [phone] Reason for call: pre-op clearance Pharmacy: n/a Provider Name:Jannet Pena from urology calling to get patient scheduled for pre-op clearance, no appointments available in the time frame needed. Did schedule for next available and fast pass. Procedure on 12/31/23 Please advise Thank you LILY rOtega * Telephone Encounter - Dania Gan LPN [...] 12/31/2023 12:08 PM EDT Hospital Encounter [facility], Operating Room, [facility] - 4th Floor [address] [facility] [place] [address] Mauricio Ramos MD [address] [place] [address] [place] [address] 12/31/2023 12:08 PM EDT - 12/31/2023 1:41 PM EDT Surgery [facility], Operating Room, [facility] Floor [address] [place] [address] Mauricio Ramos MD [address] [place] [address] [place] [address] LASER VAPORIZATION PROSTATE 01/07/2024 1:30 PM EDT Nurse Only Urology, [facility] [address] [place] [address] [facility] Nurse Urology [facility] [address] [place] [address] 01/11/2024 9:00 AM EDT Office Visit Urology, [facility] [address] [place] [address] Mauricio Ramos MD [address] [place] [address] [place] [address] 01/21/2024 7:30 AM EDT Office Visit Cardiology, [facility] [address] [place] [address] Myrna Wong CRNP [address] [place] [address] 04/01/2024 11:49 AM EDT Hospital Encounter [facility], Operating Room, [facility] Floor [address] [place] [address] Seamus Calixto DO [address] [place] [address] 04/01/2024 11:49 AM EDT - 04/01/2024 12:30 PM EDT Surgery OR [facility], Operating Room, [facility] - 4th Floor [address] [place] [address] Seamus Calixto DO [address] [place] [address] COLONOSCOPY FLEXIBLE PROXIMAL DIAGNOSTIC 04/15/2024 2:00 PM EDT Office Visit [facility] [address] [place] [address] Terry Resendez MD [address] [place] [address] 05/02/2024 3:40 PM EDT Office Visit Neurology [facility] [address] [facility] [place] [address] Elsie Capone MD 200 [place] [address] 06/06/2024 3:30 PM EDT Office Visit Cardiology, [facility] [address] [place] [address] Nargis Cardona CRNP [address] [place] [address] Scheduled Orders Name Type Priority Associated Diagnoses [...] Comments DISCUSS TOBACCO CESSATION (REFER TO SMARTSET #2036) 1954 Alpha-1 Antitrypsin 1972 Cologuard 1999 Fecal Occult Blood Test 1999 10/04/1998 Sigmoidoscopy 1999 Zoster Vaccines (1 of 2) 2004 *COPD SEVERITY VERIFIED BY PFT 08/22/2015 DXA Scan 11/27/2017 11/28/2015 *BISPHONATE OR OTHER ACCEPTABLE MEDICATION NEEDED FOR OSTEOPOROSIS (REFER TO SMARTSET #2319) 06/14/2018 Depression, Most Recent Score >= 10 [...] D LEVEL ONCE IN A LIFETIME-USE SMARTSET# 39093 Completed 12/18/2015, 02/09/2015, 06/29/2014, Additional history exists [...] this encounter Medical Devices Implanted Type Area Circuit Breaker Mechanic Device Identifier Shelf Expiration Date Model / Serial / Lot Stent Carotid 8-6x30 [id number] - [id number] Implanted:Qty: 1 on 08/23/2013 at OR [facility] [place] Right: Carotid [facility] : VASCULAR DEVICES 02/21/2016 [id number] / / [id number] documented as of this encounter Visit Diagnoses [...] the patient have Health Care Power of Supervisor Accounting Clerks? No Code Status History Code Status Date Activated Date Inactivated Comments Full Code 07/10/2017 5:59 PM 07/13/2017 3:18 PM Thi s order reflects the patients wishes and were consensually agreed upon. Question Answer Comments Discussion of Advance Directives occurred with: Patient/Family Does the patient have a Living Will? Yes, not currently available Does the patient have Health Care Power of Supervisor Accounting Clerks? No Full Code 08/23/2013 8:39 AM 08/24/2013 2:49 PM This order reflects the patients wishes and were consensually agreed upon. Full Code 08/02/2013 7:49 PM 08/06/2013 12:55 AM Th is order reflects the patients wishes and were consensually agreed upon. Question Answer Comments Discussion of Advance Directives occurred with: Patient/Family Care Teams Clinic Mgr Relationship Specialty Start Date End Date Terry Resendez MD [address] [facility] [place] [address] PCP - General 04/07/1996 documented as of this encounter
--- OUTSIDE RECORDS SUMMARY | 2024-03-15 04:19 | External Medical Summary | Summary of Care ---
Author Name Unknown Organization [facility] Address [address] [place] [address] Phone [phone] Care Team Providers Care Overseamer Name Role Phone Terry Resendez MD Primary Care Provider [phone] Reason for Visit * Reason Onset Date Comments Advice 12/25/2023 Jannet Encounter Details Date Type Department Care Team (Late st Contact Info) Description 12/25/2023 Telephone Urology Anuja Adhikari [address] [place] [address] [place] [address] Mauricio Ramos MD [address] [place] [address] [place] [address] Advice (Jannet) Allergies Active Allergy Reactions Criticality Noted Date Comments Ciprofloxacin Hives 09/01/2017 Statins 11/15/2020 All statins Simvastatin 05/07/2006 Severe myalgia's documented as of this encounter (statuses as of 12/30/2023) Medications Medication Sig Dispensed Refills Start Date End Date Status ASPIRIN EC 81 MG PO TBECIndications:Esther nary atherosclerosis of [place] coronary artery Take one pill daily 100 [...] encounter Miscellaneous Notes * Telephone Encounter - Jonathan Maharaj OSA - 12/30/2023 10:56 AM EDT Patient self scheduled from the Portal Patel León Date: 12/30/2023 Status: Andi Time: 1:30 PM Length: 30 Visit Type: RETURN CARDIOLOGY [43893] Reg Status: Verified Copay: $30.00 Provider: Margaret Graf PA-C Department: CARDIOLOGY [facility] Additional Resources Requested: Rescheduled: Confirmed: 12/30/2023 9:20 AM 12/30/2023 9:20 AM By: By: [employer] PATIENT SYSTEM, [employer] * Telephone Encounter - Yulia Cowart OSA - 12/29/2023 3:07 PM EDT Person calling: Becky- Urology Relationship to patient: provider office Number to return call: [phone] Reason for call: pre-op clearance Pharmacy: n/a Provider Name:Jannet Hansondi from urology calling to get clarification on [...] patient: provider office Number to return call: [phone] Reason for call: pre-op clearance Pharmacy: n/a [...] 12/30/2023 1:30 PM EDT [facility] 132 [facility] [place] [address] Margaret Graf PA-C [address] [facility] [place] [address] 12/31/2023 12:08 PM EDT Hospital Encounter OR [facility], Operating Room, [facility] - 4th Floor [address] [place] [address] Mauricio Ramos MD [address] [place] [address] [place] [address] 12/31/2023 12:08 PM EDT - 12/31/2023 1:41 PM EDT Surgery OR [facility], Operating Room, [facility] - 4th Floor [address] [place] [address] Mauricio Ramos MD [address] [place] [address] [place] [address] LASER VAPORIZATION PROSTATE 01/07/2024 1:30 PM EDT Nurse Only Urology, [facility] [address] [place] [address] Den[place], Nurse Urology [place] [address] 01/11/2024 9:00 AM EDT Office Visit Urology, [facility] [place] [address] [place] [address] Mauricio Ramos MD [address] [place] [address] 04/01/2024 11:49 AM EDT Hospital Encounter OR [facility], Operating Room, [facility] - 4th Floor 400 [facility] [place] [address] Saemus Calixto, DO 132 [facility] [place] [address] 04/01/2024 11:49 AM EDT - 04/01/2024 12:30 PM EDT Surgery OR [facility], Operating Room, [facility] - 4th Floor [address] [facility] [place] [address] Seamus Calixto, DO 132 [facility] [place] [address] COLONOSCOPY FLEXIBLE PROXIMAL DIAGNOSTIC 04/15/2024 2:00 PM EDT Office Visit [facility] [address] [place] [address] Terry Resendez MD [address] [place] [address] 05/02/2024 3:40 PM EDT Office Visit Neurology [facility] 200 [facility] [place] [address] Elsie Capone MD 200 [facility] [place] [address] 06/06/2024 3:30 PM EDT Office Visit Cardiology, [facility] [address] [place] [address] Nargis Cardona CRNP 132 [facility] [place] [address] Scheduled Orders Name Type Priority Associated Diagnoses [...] Comments DISCUSS TOBACCO CESSATION (REFER TO SMARTSET #0682) 1954 Alpha-1 Antitrypsin 1972 Cologuard 1999 Fecal [...] FOR COPD 10/21/2024 10/21/2023 GFR 11/17/2024 11/18/2023, 09/12/2022, 01/29/2023, Additional history exists DTaP,Tdap,and Td Vaccines (2 - Td or Tdap) 01/17/2026 01/18/2016, 03/15/2004 VITAMIN D LEVEL ONCE IN A LIFETIME-USE SMARTSET# [id number] Completed 12/18/2015, 02/09/2015, 06/29/2014, Additional history exists [...] this encounter Medical Devices Implanted Type Area Data Governance Consultant Device Identifier Shelf Expiration Date Model / Serial / Lot Stent Carotid 8-6x30 [id number] - [id number] Implanted:Qty: 1 on 08/23/2013 at OR [facility] [place] Right: Carotid [facility] : VASCULAR DEVICES 02/21/2016 [id number] / / [id number] documented as of this encounter Visit Diagnoses [...] the patient have Health Care Power of Salt Plant Operator? No Code Status History Code Status Date Activated Date Inactivated Comments Full Code 07/10/2017 5:59 PM 07/13/2017 3:18 PM Thi s order reflects the patients wishes and were consensually agreed upon. Question Answer Comments Discussion of Advance Directives occurred with: Patient/Family Does the patient have a Living Will? Yes, not currently available Does the patient have Health Care Power of Salt Plant Operator? No Full Code 08/23/2013 8:39 AM 08/24/2013 2:49 PM This order reflects the patients wishes and were consensually agreed upon. Full Code 08/02/2013 7:49 PM 08/06/2013 12:55 AM Th is order reflects the patients wishes and were consensually agreed upon. Question Answer Comments Discussion of Advance Directives occurred with: Patient/Family Care Teams Overseamer Relationship Specialty Start Date End Date Terry Resendez MD [address] [place] [facility] [address] PCP - General 04/07/1996 documented as of this encounter
--- OUTSIDE RECORDS SUMMARY | 2024-03-15 04:19 | External Medical Summary | Summary of Care ---
Author Name Unknown Organization [facility] Address [address] [place] [address] Phone [phone] Care Team Providers Care Concrete Technician Name Role Phone Terry Resendez MD Primary Care Provider [phone] Reason for Visit * Reason Onset Date Comments Advice 12/25/2023 Jannet Encounter Details Date Type Department Care Team (Late st Contact Info) Description 12/25/2023 Telephone Urology Anuja Adhikari [address] [place] [address] [place] [address] Mauricio Ramos MD [address] [place] [address] [place] [address] Advice (Jannet) Allergies Active Allergy Reactions Criticality Noted Date Comments Ciprofloxacin Hives 09/01/2017 Statins 11/15/2020 All statins Simvastatin 05/07/2006 Severe myalgia's documented as of this encounter (statuses as of 12/28/2023) Medications Medication Sig Dispensed Refills Start Date End Date Status ASPIRIN EC 81 MG PO TBECIndications:Esther nary atherosclerosis of [place] coronary artery Take one pill daily 100 [...] encounter Miscellaneous Notes * Telephone Encounter - Jordyn [place] OSA - 12/28/2023 3:41 PM EDT Person calling: Becky- Urology Relationship to patient: provider office Number to return call: [phone] Reason for call: pre-op clearance Pharmacy: n/a [...] 12/31/2023 12:08 PM EDT Hospital Encounter OR [facility], Operating Room, [facility] - [address] [place] [address] [address] [place] [address] Mauricio Ramos MD [address] [place] [address] [place] [address] 12/31/2023 12:08 PM EDT - 12/31/2023 1:41 PM EDT Surgery OR [facility], Operating Room, [address] [place] [address] Mauricio Ramos MD [address] [place] [address] [place] [address] LASER VAPORIZATION PROSTATE 01/07/2024 1:30 PM EDT Nurse Only Urology, [facility] [address] [place] [address] [facility] [address] [place] [address] 01/11/2024 9:00 AM EDT Office Visit Urology, [facility] [address] [place] [address] Mauricio Ramos MD [address] [place] [address] [place] [address] 04/01/2024 11:49 AM EDT Hospital Encounter OR [facility], Operating Room, [facility] - [address] [place] [address] [address] [place] [address] Seamus Calixto DO [address] [place] [address] 04/01/2024 11:49 AM EDT - 04/01/2024 12:30 PM EDT Surgery OR [facility], Operating Room, [facility] - 4th Floor [address] [place] [address] Seamus Calixto DO [address] [place] [address] COLONOSCOPY FLEXIBLE PROXIMAL DIAGNOSTIC 04/15/2024 2:00 PM EDT Office Visit [facility] [address] [place] [address] Terry Resendez MD [address] [place] [address] 05/02/2024 3:40 PM EDT Office Visit Neurology [facility] 200 [facility] [place] [address] Elsie Capone MD 200 [facility] [address] 06/06/2024 3:30 PM EDT Office Visit Cardiology, [facility] [address] [place] [address] Nargis Cardona CRNP [facility] [place] [address] Scheduled Orders Name Type Priority Associated Diagnoses [...] Comments DISCUSS TOBACCO CESSATION (REFER TO SMARTSET #0575) 1954 Alpha-1 Antitrypsin 1972 Cologuard 1999 Fecal [...] D LEVEL ONCE IN A LIFETIME-USE SMARTSET# [id number] Completed 12/18/2015, 02/09/2015, 06/29/2014, Additional history exists [...] this encounter Medical Devices Implanted Type Area Antenna Specialist Device Identifier Shelf Expiration Date Model / Serial / Lot Stent Carotid 8-6x30 [id number] - [id number] Implanted:Qty: 1 on 08/23/2013 at [place] [facility] [place]: Carotid [facility] : VASCULAR DEVICES 02/21/2016 [id number] / / [id number] documented as of this encounter Visit Diagnoses [...] the patient have Health Care Power of Captain Waiter? No Code Status History Code Status Date Activated Date Inactivated Comments Full Code 07/10/2017 5:59 PM 07/13/2017 3:18 PM Thi s order reflects the patients wishes and were consensually agreed upon. Question Answer Comments Discussion of Advance Directives occurred with: Patient/Family Does the patient have a Living Will? Yes, not currently available Does the patient have Health Care Power of Captain Waiter? No Full Code 08/23/2013 8:39 AM 08/24/2013 2:49 PM This order reflects the patients wishes and were consensually agreed upon. Full Code 08/02/2013 7:49 PM 08/06/2013 12:55 AM Th is order reflects the patients wishes and were consensually agreed upon. Question Answer Comments Discussion of Advance Directives occurred with: Patient/Family Care Teams Concrete Technician Relationship Specialty Start Date End Date Terry Resendez MD [address] [place] [address] PCP - General 04/07/1996 documented as of this encounter
--- OUTSIDE RECORDS SUMMARY | 2024-03-15 04:19 | External Medical Summary | Summary of Care ---
Author Name Unknown Organization [facility] Address [address] [place] [address] Phone [phone] Care Team Providers Care Aerospace Project Engineer Name Role Phone Terry Resendez MD Primary Care Provider [phone] Reason for Visit * Reason Onset Date Comments Advice 12/25/2023 Jannet Encounter Details Date Type Department Care Team (Late st Contact Info) Description 12/25/2023 Telephone Urology Anuja Adhikari [address] [place] [address] [place] [address] Mauricio Ramos MD [address] [place] [address] [place] [address] Advice (Jannet) Allergies Active Allergy Reactions Criticality Noted Date Comments Ciprofloxacin Hives 09/01/2017 Statins 11/15/2020 All statins Simvastatin 05/07/2006 Severe myalgia's documented as of this encounter (statuses as of 12/29/2023) Medications Medication Sig Dispensed Refills Start Date End Date Status ASPIRIN EC 81 MG PO TBECIndications:Esther nary atherosclerosis of [place] coronary [...] patient: provider office Number to return call: [phone] Reason for call: pre-op clearance Pharmacy: n/a [...] patient: provider office Number to return call: [phone] Reason for call: pre-op clearance Pharmacy: n/a [...] an EKG? * Telephone Encounter - Terry Resednez MD - 12/26/2023 11:23 AM EDT Notify [...] EDT Hospital Encounter [facility], Operating Room, [facility] - 4th Floor 400 [facility] [place] [address] Mauricio Ramos MD [address] [place] [address] [place] [address] 12/31/2023 12:08 PM EDT - 12/31/2023 1:41 PM EDT Surgery [facility], Operating Room, [facility] Floor [address] [place] [address] Mauricio Ramos MD [address] [place] [address] [place] [address] LASER VAPORIZATION PROSTATE 01/07/2024 1:30 PM EDT Nurse Only Urology, [facility] [address] [place] [address] [facility] Nurse Urology [facility] [address] [place] [address] 01/11/2024 9:00 AM EDT Office Visit Urology, [facility] [address] [place] [address] Mauricio Ramos MD [address] [place] [address] [place] [address] 01/21/2024 7:30 AM EDT Office Visit Cardiology, [facility] [address] [place] [address] Myrna Wong CRNP [address] [place] [address] 04/01/2024 11:49 AM EDT Hospital Encounter [facility], Operating Room, [facility] Floor [address] [place] [address] Seamus Calixto DO [address] [place] [address] 04/01/2024 11:49 AM EDT - 04/01/2024 12:30 PM EDT Surgery [facility], Operating Room, [facility] - 4th Floor [address] [place] [address] Seamus Calixto DO [address] [place] [address] COLONOSCOPY FLEXIBLE PROXIMAL DIAGNOSTIC 04/15/2024 2:00 PM EDT Office Visit [facility] [address] [place] [address] Terry Resendez MD [address] [place] [address] 05/02/2024 3:40 PM EDT Office Visit Neurology [facility] 200 [facility] [place] [address] Elsie Capone MD [address] [facility] [place] [address] 06/06/2024 3:30 PM EDT Office Visit Cardiology, [facility] [address] [place] [address] Nargis Cardona CRNP [address] [place] [address] Scheduled Orders Name Type Priority Associated Diagnoses [...] Comments DISCUSS TOBACCO CESSATION (REFER TO SMARTSET #5908) 1954 Alpha-1 Antitrypsin 1972 Cologuard 1999 Fecal Occult Blood Test 1999 10/04/1998 Sigmoidoscopy 1999 Zoster Vaccines (1 of 2) 2004 *COPD SEVERITY VERIFIED BY PFT 08/22/2015 DXA Scan 11/27/2017 11/28/2015 *BISPHONATE OR OTHER ACCEPTABLE MEDICATION NEEDED FOR OSTEOPOROSIS (REFER TO SMARTSET #1310) 06/14/2018 Depression, Most Recent Score >= 10 [...] D LEVEL ONCE IN A LIFETIME-USE SMARTSET# [id number] Completed 12/18/2015, 02/09/2015, 06/29/2014, Additional history exists [...] this encounter Medical Devices Implanted Type Area Golf Coach Device Identifier Shelf Expiration Date Model / Serial / Lot Stent Carotid 8-6x30 [id number] - [id number] Implanted:Qty: 1 on 08/23/2013 at OR [facility] [place] Right: Carotid [facility] : VASCULAR DEVICES 02/21/2016 [id number] / / [id number] documented as of this encounter Visit Diagnoses [...] the patient have Health Care Power of Cargo Broker? No Code Status History Code Status Date Activated Date Inactivated Comments Full Code 07/10/2017 5:59 PM 07/13/2017 3:18 PM Thi s order reflects the patients wishes and were consensually agreed upon. Question Answer Comments Discussion of Advance Directives occurred with: Patient/Family Does the patient have a Living Will? Yes, not currently available Does the patient have Health Care Power of Cargo Broker? No Full Code 08/23/2013 8:39 AM 08/24/2013 2:49 PM This order reflects the patients wishes and were consensually agreed upon. Full Code 08/02/2013 7:49 PM 08/06/2013 12:55 AM Th is order reflects the patients wishes and were consensually agreed upon. Question Answer Comments Discussion of Advance Directives occurred with: Patient/Family Care Teams Aerospace Project Engineer Relationship Specialty Start Date End Date Terry Resendez MD [address] [facility] [place] [address] PCP - General 04/07/1996 documented as of this encounter
--- OUTSIDE RECORDS SUMMARY | 2024-03-15 04:19 | External Medical Summary | Summary of Care ---
Author Name Unknown Organization [facility] Address [address] [place] [facility] [place] [address] Phone [phone] Care Team Providers Care Salon Assistant Name Role Phone Terry Resendez MD Primary Care Provider [phone] Encounter Details Date Type Department Care Team (Late st Contact Info) Description 12/25/2023 Telephone Urology Anuja Adhikari [address] [place] [address] [place] [address] Mauricio Ramos MD [address] [place] [address] [place] [address] Allergies Active Allergy Reactions Criticality Noted Date Comments Ciprofloxacin Hives 09/01/2017 Statins 11/15/2020 All statins Simvastatin 05/07/2006 Severe myalgia's documented as of this encounter (statuses as of 12/28/2023) Medications Medication Sig Dispensed Refills Start Date End Date Status ASPIRIN EC 81 MG PO TBECIndications:Esther nary atherosclerosis of [place] coronary artery Take one pill daily 100 [...] encounter Miscellaneous Notes * Telephone Encounter - Dania Gan LPN [...] 12/31/2023 12:08 PM EDT Hospital Encounter OR [facility], Operating Room, [facility] - 4th Floor [address] [place] [address] Mauricio Ramos MD [address] [place] [address] [place] [address] 12/31/2023 12:08 PM EDT - 12/31/2023 1:41 PM EDT Surgery OR GL, Operating Room, [facility] - 4th Floor [address] [place] [address] Mauricio Ramos MD [address] [place] [address] [place] [address] LASER VAPORIZATION PROSTATE 01/07/2024 1:30 PM EDT Nurse Only Urology, [facility] [address] [place] [address] [facility] Nurse Urology Rust [address] [place] [address] 01/11/2024 9:00 AM EDT Office Visit Urology, [facility] [address] [place] [address] Mauricio Ramos MD [address] [place] [address] [place] [address] 04/01/2024 11:49 AM EDT Hospital Encounter OR [facility], Operating Room, [facility] - [address] [place] [address] [address] [place] [address] Seamus Calixto, DO [address] [place], [place] [address] 04/01/2024 11:49 AM EDT - 04/01/2024 12:30 PM EDT Surgery OR [facility], Operating Room, [facility] Floor [address] [place] [address] Seamus Calixto, DO [address] [place] [address] COLONOSCOPY FLEXIBLE PROXIMAL DIAGNOSTIC 04/15/2024 2:00 PM EDT Office Visit [facility] [address] [place] [phone] Terry Resendez MD [address] [place], [place] [phone] 05/02/2024 3:40 PM EDT Office Visit Neurology [facility] [address] [facility] [place] [address] Elsie Capone MD [address] [facility] [place] [address] 06/06/2024 3:30 PM EDT Office Visit Cardiology, [facility] [address] [place] [address] Nargis Cardona CRNP [address] [place] [address] Scheduled Orders Name Type Priority Associated Diagnoses [...] Comments DISCUSS TOBACCO CESSATION (REFER TO SMARTSET #5688) 1954 Alpha-1 Antitrypsin 1972 Cologuard 1999 Fecal [...] D LEVEL ONCE IN A LIFETIME-USE SMARTSET# [id number] Completed 12/18/2015, 02/09/2015, 06/29/2014, Additional history exists [...] this encounter Medical Devices Implanted Type Area Portable Machine Sander Device Identifier Shelf Expiration Date Model / Serial / Lot Stent Carotid 8-6x30 [id number] - [id number] [place]ed:Q[place] 1 [place]23[place] [facility] [place] Carotid [facility] : VASCULAR DEVICES 02/21/2016 [id number] / / [id number] documented as of this encounter Visit Diagnoses [...] the patient have Health Care Power of Public Relations Associate? No Code Status History Code Status Date Activated Date Inactivated Comments Full Code 07/10/2017 5:59 PM 07/13/2017 3:18 PM Thi s order reflects the patients wishes and were consensually agreed upon. Question Answer Comments Discussion of Advance Directives occurred with: Patient/Family Does the patient have a Living Will? Yes, not currently available Does the patient have Health Care Power of Public Relations Associate? No Full Code 08/23/2013 8:39 AM 08/24/2013 2:49 PM This order reflects the patients wishes and were consensually agreed upon. Full Code 08/02/2013 7:49 PM 08/06/2013 12:55 AM Th is order reflects the patients wishes and were consensually agreed upon. Question Answer Comments Discussion of Advance Directives occurred with: Patient/Family Care Teams Salon Assistant Relationship Specialty Start Date End Date Terry Resendez MD [address] [place] [address] PCP - General 04/07/1996 documented as of this encounter
--- OUTSIDE RECORDS SUMMARY | 2024-03-15 04:19 | External Medical Summary | Summary of Care ---
Author Name Unknown Organization [facility] Address [address] [place] [address] Phone [phone] Care Team Providers Care Executive Chairman Of The Board Name Role Phone Terry Resendez MD Primary Care Provider [phone] Reason for Visit * Reason Onset Date Comments Advice 12/25/2023 Jannet Encounter Details Date Type Department Care Team (Late st Contact Info) Description 12/25/2023 Telephone Urology Anuja Adhikari [address] [place] [address] [place] [address] Mauricio Ramos MD [address] [place] [address] [place] [address] Advice (Jannet) Allergies Active Allergy Reactions Criticality Noted Date Comments Ciprofloxacin Hives 09/01/2017 Statins 11/15/2020 All statins Simvastatin 05/07/2006 Severe myalgia's documented as of this encounter (statuses as of 12/29/2023) Medications Medication Sig Dispensed Refills Start Date End Date Status ASPIRIN EC 81 MG PO TBECIndications:Esther nary atherosclerosis of [place] coronary artery Take one pill daily 100 [...] patient: provider office Number to return call: [phone] Reason for call: pre-op clearance Pharmacy: n/a [...] 12/31/2023 12:08 PM EDT Hospital Encounter OR [facility], Operating Room, [facility] - 4th Floor [address] [place] [address] Mauricio Ramos MD [address] [place] [address] 12/31/2023 12:08 PM EDT - 12/31/2023 1:41 PM EDT Surgery OR [facility], Operating Room, [facility] - 4th Floor [address] [place] [address] Mauricio Ramos MD [address] [place] [address] LASER VAPORIZATION PROSTATE 01/07/2024 1:30 PM EDT Nurse Only Urology, Maddy [address] [place] [address] Denys Nurse Urology [facility] [address] [place], [place] [address] 01/11/2024 9:00 AM EDT Office Visit Urology, [facility] [address] [place] [address] Mauricio Ramos MD [address] [place] [address] [place] [address] 01/21/2024 7:30 AM EDT Office Visit Cardiology, [facility] [address] [place] [address] Myrna Wong CRNP [address] [place] [address] 04/01/2024 11:49 AM EDT Hospital Encounter OR [facility], Operating Room, [facility] - 4th Floor 400 [facility] [place] [address] Seamus Calixto, DO [address] [place] [address] 04/01/2024 11:49 AM EDT - 04/01/2024 12:30 PM EDT Surgery OR [facility], Operating Room, [facility] - 4th Floor [address] [facility] [place] [address] Seamus Calixto, DO [address] [place] [address] COLONOSCOPY FLEXIBLE PROXIMAL DIAGNOSTIC 04/15/2024 2:00 PM EDT Office Visit [facility] [address] [place] [phone] Terry Resendez MD [address] [place] [address] 05/02/2024 3:40 PM EDT [facility] [address] [facility] [place] [address] Elsie Capone MD [address] [facility] [place] [address] 06/06/2024 3:30 PM EDT Office Visit Cardiology, [facility] [address] [facility] [address] Nargis Cardona CRNP [address] [place] [address] Scheduled Orders Name Type Priority Associated Diagnoses [...] Comments DISCUSS TOBACCO CESSATION (REFER TO SMARTSET #5739) 1954 Alpha-1 Antitrypsin 1972 Cologuard 1999 Fecal [...] exists Colorectal Cancer Screening 04/05/2022 COVID-19 Vaccine (1 - 2023-24 season) 2023 Albumin/Creatinine Ratio 10/17/2023 023, 10/16/2021, [...] D LEVEL ONCE IN A LIFETIME-USE SMARTSET# [id number] Completed 12/18/2015, 02/09/2015, 06/29/2014, Additional history exists [...] this encounter Medical Devices Implanted Type Area Wet End Supervisor Device Identifier Shelf Expiration Date Model / Serial / Lot Stent Carotid 8-6x30 [id number] - [id number] Implanted:Qty: 1 on 08[place]23[place] [facility] [place] Carotid [facility] : VASCULAR DEVICES 02/21/2016 [id number] / / [id number] documented as of this encounter Visit Diagnoses [...] the patient have Health Care Power of Machine Tank Operator? No Code Status History Code Status Date Activated Date Inactivated Comments Full Code 07/10/2017 5:59 PM 07/13/2017 3:18 PM Thi s order reflects the patients wishes and were consensually agreed upon. Question Answer Comments Discussion of Advance Directives occurred with: Patient/Family Does the patient have a Living Will? Yes, not currently available Does the patient have Health Care Power of Machine Tank Operator? No Full Code 08/23/2013 8:39 AM 08/24/2013 2:49 PM This order reflects the patients wishes and were consensually agreed upon. Full Code 08/02/2013 7:49 PM 08/06/2013 12:55 AM Th is order reflects the patients wishes and were consensually agreed upon. Question Answer Comments Discussion of Advance Directives occurred with: Patient/Family Care Teams Executive Chairman Of The Board Relationship Specialty Start Date End Date Terry Resendez MD [address] [place] [address] PCP - General 04/07/1996 documented as of this encounter
--- OUTSIDE RECORDS SUMMARY | 2024-03-15 04:19 | External Medical Summary | Summary of Care ---
Author Name Unknown Organization [facility] Address [address] [place] [address] Phone [phone] Care Team Providers Care Elevator Mechanic Apprentice Name Role Phone Terry Resendez MD Primary Care Provider [phone] Reason for Visit * Reason Onset Date Comments Advice 12/25/2023 Jannet Encounter Details Date Type Department Care Team (Late st Contact Info) Description 12/25/2023 Telephone Urology Anuja Adhikari [address] [place] [address] [place] [address] Mauricio Ramos MD [address] [place] [address] [place] [address] Advice (Jannet) Allergies Active Allergy Reactions Criticality Noted Date Comments Ciprofloxacin Hives 09/01/2017 Statins 11/15/2020 All statins Simvastatin 05/07/2006 Severe myalgia's documented as of this encounter (statuses as of 12/28/2023) Medications Medication Sig Dispensed Refills Start Date End Date Status ASPIRIN EC 81 MG PO TBECIndications:Esther nary atherosclerosis of [place] coronary artery Take one pill daily 100 [...] patient: provider office Number to return call: [phone] Reason for call: pre-op clearance Pharmacy: n/a [...] 12/31/2023 12:08 PM EDT Hospital Encounter OR [facility], Operating Room, [facility] - 4th Floor [address] [place] [address] Mauricio Ramos MD [address] [place] [address] [place] [address] 12/31/2023 12:08 PM EDT - 12/31/2023 1:41 PM EDT Surgery OR [facility], Operating Room, [facility] - 4th Floor [address] [place] [address] Mauricio Ramos MD [address] [place] [address] [place] [address] LASER VAPORIZATION PROSTATE 01/07/2024 1:30 PM EDT Nurse Only Urology, [facility] [address] [place] [address] [place], Nurse Urology [facility] [address] [place] [address] 01/11/2024 9:00 AM EDT Office Visit Urology, [facility] [place] [address] Mauricio Ramos MD [address] [place] [address] [place] [address] 01/21/2024 7:30 AM EDT Office Visit Cardiology, [facility] [address] [place] [address] Myrna Wong CRNP [address] [place] [address] 04/01/2024 11:49 AM EDT Hospital Encounter [facility], Operating Room, [facility] - 4th Floor [address] [place] [address] Seamus Calixto, DO [address] [place] [address] 04/01/2024 11:49 AM EDT - 04/01/2024 12:30 PM EDT Surgery OR [facility], Operating Room, [facility] - 4th Floor [address] [place] [address] Seamus Calixto, DO [address] [place] [address] COLONOSCOPY FLEXIBLE PROXIMAL DIAGNOSTIC 04/15/2024 2:00 PM EDT Office Visit [facility] [address] [place] [address] Terry Resendez MD [address] [place] [address] 05/02/2024 3:40 PM EDT Office Visit Neurology [facility] [address] [place] [address] Elsie Capone MD [address] [place] [address] 06/06/2024 3:30 PM EDT Office Visit Cardiology, [facility] [address] [place] [address] Nargis Cardona CRNP [address] [place] [address] Scheduled Orders Name Type Priority Associated Diagnoses [...] Comments DISCUSS TOBACCO CESSATION (REFER TO SMARTSET #6741) 1954 Alpha-1 Antitrypsin 1972 Cologuard 1999 Fecal Occult Blood Test 1999 10/04/1998 Sigmoidoscopy 1999 Zoster Vaccines (1 of 2) 2004 *COPD SEVERITY VERIFIED BY PFT 08/22/2015 DXA Scan 11/27/2017 11/28/2015 *BISPHONATE OR OTHER ACCEPTABLE MEDICATION NEEDED FOR OSTEOPOROSIS (REFER TO SMARTSET #4086) 06/14/2018 Depression, Most Recent Score >= 10 [...] D LEVEL ONCE IN A LIFETIME-USE SMARTSET# [id number] Completed 12/18/2015, 02/09/2015, 06/29/2014, Additional history exists [...] this encounter Medical Devices Implanted Type Area Engagement Manager Device Identifier Shelf Expiration Date Model / Serial / Lot Stent Carotid 8-6x30 [id number] - [id number] Implanted:Qty: 1 on 08/23/2013 [place] [facility] [place]: Carotid [facility] : VASCULAR DEVICES 02/21/2016 [id number] / / [id number] documented as of this encounter Visit Diagnoses [...] the patient have Health Care Power of Manager Testing? No Code Status History Code Status Date Activated Date Inactivated Comments Full Code 07/10/2017 5:59 PM 07/13/2017 3:18 PM Thi s order reflects the patients wishes and were consensually agreed upon. Question Answer Comments Discussion of Advance Directives occurred with: Patient/Family Does the patient have a Living Will? Yes, not currently available Does the patient have Health Care Power of Manager Testing? No Full Code 08/23/2013 8:39 AM 08/24/2013 2:49 PM This order reflects the patients wishes and were consensually agreed upon. Full Code 08/02/2013 7:49 PM 08/06/2013 12:55 AM Th is order reflects the patients wishes and were consensually agreed upon. Question Answer Comments Discussion of Advance Directives occurred with: Patient/Family Care Teams Elevator Mechanic Apprentice Relationship Specialty Start Date End Date Terry Resendez MD [address] [place] [address] PCP - General 04/07/1996 documented as of this encounter
--- OUTSIDE RECORDS SUMMARY | 2024-03-15 04:19 | External Medical Summary | Summary of Care ---
Author Name Unknown Organization [facility] Address [address] [place] [address] Phone [phone] Care Team Providers Care Fleet Operations Manager Name Role Phone Terry Resendez MD Primary Care Provider [phone] Reason for Visit * Reason Onset Date Comments Advice 12/25/2023 Jannet Encounter Details Date Type Department Care Team (Late st Contact Info) Description 12/25/2023 Telephone Urology Anuja Adhikari [address] [place] [address] [place] [address] Mauricio Ramos MD [address] [place] [address] [place] [address] Advice (Jannet) Allergies Active Allergy Reactions Criticality Noted Date Comments Ciprofloxacin Hives 09/01/2017 Statins 11/15/2020 All statins Simvastatin 05/07/2006 Severe myalgia's documented as of this encounter (statuses as of 12/28/2023) Medications Medication Sig Dispensed Refills Start Date End Date Status ASPIRIN EC 81 MG PO TBECIndications:Esther nary atherosclerosis of [place] coronary artery Take one pill daily 100 [...] patient: provider office Number to return call: [phone] Reason for call: pre-op clearance Pharmacy: n/a [...] 12/31/2023 12:08 PM EDT Hospital Encounter OR [facility], Operating Room, [facility] - 4th Floor [address] [place] [place] [address] Mauricio Ramos MD [address] [place] [address] [place] [address] 12/31/2023 12:08 PM EDT - 12/31/2023 1:41 PM EDT Surgery OR [facility], Operating Room, [facility] Floor [address] [place] [address] Mauricio Ramos MD [address] [place] [address] [place] [address] LASER VAPORIZATION PROSTATE 01/07/2024 1:30 PM EDT Nurse Only Urology, [facility] [address] [place] [address] Denys Nurse Urology Jared [address] [place] [address] 01/11/2024 9:00 AM EDT Office Visit Urology, [facility] [address] [place] [address] Mauricio Ramos MD [address] [place] [address] [place] [address] 01/21/2024 7:30 AM EDT Office Visit Cardiology, [facility] [address] [place] [address] Myrna Wong CRNP [address] [facility] [place] [address] 04/01/2024 11:49 AM EDT Hospital Encounter OR [facility], Operating Room, [facility] - 4th Floor 400 [facility] [place] [address] Seamus Calixto, DO 132 [facility] [place] [address] 04/01/2024 11:49 AM EDT - 04/01/2024 12:30 PM EDT Surgery OR [facility], Operating Room, [facility] - 4th Floor 400 [facility] [place] [address] Seamus Calixto, DO [facility] [place] [address] COLONOSCOPY FLEXIBLE PROXIMAL DIAGNOSTIC 04/15/2024 2:00 PM EDT Office Visit [facility] [address] [place] [address] Terry Resendez MD [address] [place] [address] 05/02/2024 3:40 PM EDT Office Visit [facility] 200 [facility] [place] [address] Elsie Capone MD 200 [facility] [place] [address] 06/06/2024 3:30 PM EDT Office Visit Cardiology, [facility] [address] [place] [address] Nargis Cardona CRNP [address] [place] [address] Scheduled Orders Name Type Priority Associated Diagnoses [...] TOBACCO CESSATION (REFER TO SMARTSET #3292) 1954 Alpha-1 Antitrypsin 1972 Cologuard 1999 Fecal Occult Blood Test 1999 10/04/1998 Sigmoidoscopy 1999 Zoster Vaccines (1 of 2) 2004 *COPD SEVERITY VERIFIED BY PFT 08/22/2015 DXA Scan 11/27/2017 11/28/2015 *BISPHONATE OR OTHER ACCEPTABLE MEDICATION NEEDED FOR OSTEOPOROSIS (REFER TO SMARTSET #1176) 06/14/2018 Depression, Most Recent Score >= 10 [...] D LEVEL ONCE IN A LIFETIME-USE SMARTSET# [id number] Completed 12/18/2015, 02/09/2015, 06/29/2014, Additional history exists [...] this encounter Medical Devices Implanted Type Area Clinical Office Technician Device Identifier Shelf Expiration Date Model / Serial / Lot Stent Carotid 8-6x30 [id number] - [id number] Implanted:Qty: 1 on 08/23/2013 at OR [facility] [place] Right: Carotid [facility] : VASCULAR DEVICES 02/21/2016 [id number] / / [id number] documented as of this encounter Visit Diagnoses [...] the patient have Health Care Power of Housekeeping Attendant? No Code Status History Code Status Date Activated Date Inactivated Comments Full Code 07/10/2017 5:59 PM 07/13/2017 3:18 PM Thi s order reflects the patients wishes and were consensually agreed upon. Question Answer Comments Discussion of Advance Directives occurred with: Patient/Family Does the patient have a Living Will? Yes, not currently available Does the patient have Health Care Power of Housekeeping Attendant? No Full Code 08/23/2013 8:39 AM 08/24/2013 2:49 PM This order reflects the patients wishes and were consensually agreed upon. Full Code 08/02/2013 7:49 PM 08/06/2013 12:55 AM Th is order reflects the patients wishes and were consensually agreed upon. Question Answer Comments Discussion of Advance Directives occurred with: Patient/Family Care Teams Fleet Operations Manager Relationship Specialty Start Date End Date Terry Resendez MD [address] [place] [address] PCP - General 04/07/1996 documented as of this encounter
--- OUTSIDE RECORDS SUMMARY | 2024-03-15 04:20 | External Medical Summary | Summary of Care ---
Author Name Unknown Organization [facility] Address [address] [facility] [place] [address] Phone [phone] Care Team Providers Care Yard Switch Operator Name Role Phone Terry Resendez MD Primary Care Provider [phone] Encounter Details Date Type Department Care Team (Late st Contact Info) Description 12/25/2023 Telephone Urology Anuja Adhikari [address] [place] [address] [place] [address] Mauricio Ramos MD [address] [place] [address] [place] [address] Allergies Active Allergy Reactions Criticality Noted Date Comments Ciprofloxacin Hives 09/01/2017 Statins 11/15/2020 All statins Simvastatin 05/07/2006 Severe myalgia's documented as of this encounter (statuses as of 12/28/2023) Medications Medication Sig Dispensed Refills Start Date End Date Status ASPIRIN EC 81 MG PO TBECIndications:Esther nary atherosclerosis of [place] coronary artery Take one pill daily 100 [...] CRNP - 12/26/2023 4:38 PM EDTAddended by: NARGSI CARDONA on: 12/26/2023 04:38 PM Modules accepted: [...] preop eval but now with new symptoms. He will need to be seen again by cardiology [...] 12/31/2023 12:08 PM EDT Hospital Encounter OR [facility], Operating Room, [facility] - 4th Floor [address] [place] [address] Mauricio Ramos MD [address] [place] [address] 12/31/2023 12:08 PM EDT - 12/31/2023 1:41 PM EDT Surgery OR [facility], Operating Room, [facility] - 4th Floor [address] [place] [address] Mauricio Ramos MD [address] [place] [address] LASER VAPORIZATION PROSTATE 01/07/2024 1:30 PM EDT Nurse Only Urology, [address] [place] [address] [facility], Nurse Urology [facility] [address] [place] [address] 01/11/2024 9:00 AM EDT Office Visit Urology, [facility] [address] [place] [address] Mauricio Ramos MD [address] [facility] [address] [place] [address] 04/01/2024 11:49 AM EDT Hospital Encounter OR [facility], Operating Room, [facility] - 4th Floor 400 [facility] [place] [address] Seamus Calixto, DO [address] [place] [address] 04/01/2024 11:49 AM EDT - 04/01/2024 12:30 PM EDT Surgery OR [facility], Operating Room, [facility] - 4th Floor 400 [facility] [place] [address] Seamus Calixto, DO [address] [place] [address] COLONOSCOPY FLEXIBLE PROXIMAL DIAGNOSTIC 04/15/2024 2:00 PM EDT Office Visit [facility] [address] [place] [address] Terry Resendez MD [address] [place] [address] 05/02/2024 3:40 PM EDT Office Visit Neurology [facility] [place] [address] Elsie Capone MD 200 [facility] [place] [address] 06/06/2024 3:30 PM EDT Office Visit Cardiology, [facility] [address] [place] [address] Nargis Cardona CRNP [address] [place] [address] Scheduled Orders Name Type Priority Associated Diagnoses [...] Comments DISCUSS TOBACCO CESSATION (REFER TO SMARTSET #4417) 1954 Alpha-1 Antitrypsin 1972 Cologuard 1999 Fecal Occult Blood Test 1999 10/04/1998 Sigmoidoscopy 1999 Zoster Vaccines (1 of 2) 2004 *COPD SEVERITY VERIFIED BY PFT 08/22/2015 DXA Scan 11/27/2017 11/28/2015 *BISPHONATE OR OTHER ACCEPTABLE MEDICATION NEEDED FOR OSTEOPOROSIS (REFER TO SMARTSET #2006) 06/14/2018 Depression, Most Recent Score >= 10 (will fire each visit until score < 10) 06/14/2020 06/13/2020 Pneumococcal Vaccine: 65+ Years (3 of 3 - PPSV23 or PCV20) 04/11/2021 04/11/2020, 08/05/2013 Diabetic Eye Exam 01/29/2022 01/29/2021 Colonoscopy 04/05/2022 04/05/2019, 03/24, 01/15/2016, Additional history exists Colorectal Cancer Screening 04/05/2022 COVID-19 Vaccine ( - season) 2023 Albumin/Creatinine Ratio 10/17/20232 023, 10/16/2021, [...] D LEVEL ONCE IN A LIFETIME-USE SMARTSET# [id number] Completed 12/18/2015, 02/09/2015, 06/29/2014, Additional history exists [...] this encounter Medical Devices Implanted Type Area Sweet Potato Disintegrator Device Identifier Shelf Expiration Date Model / Serial / Lot Stent Carotid 8-6x30 [id number] - [id number] Implanted:Qty: 1 on [place]2013 [place] [facility] [place] Carotid [facility] : VASCULAR DEVICES 02/21/2016 [id number] / / [id number] documented as of this encounter Visit Diagnoses [...] the patient have Health Care Power of Postal Transportation Clerk? No Code Status History Code Status Date Activated Date Inactivated Comments Full Code 07/10/2017 5:59 PM 07/13/2017 3:18 PM Thi s order reflects the patients wishes and were consensually agreed upon. Question Answer Comments Discussion of Advance Directives occurred with: Patient/Family Does the patient have a Living Will? Yes, not currently available Does the patient have Health Care Power of Postal Transportation Clerk? No Full Code 08/23/2013 8:39 AM 08/24/2013 2:49 PM This order reflects the patients wishes and were consensually agreed upon. Full Code 08/02/2013 7:49 PM 08/06/2013 12:55 AM Th is order reflects the patients wishes and were consensually agreed upon. Question Answer Comments Discussion of Advance Directives occurred with: Patient/Family Care Teams Yard Switch Operator Relationship Specialty Start Date End Date Terry Resendez MD [address] [place] [address] PCP - General 04/07/1996 documented as of this encounter
--- OUTSIDE RECORDS SUMMARY | 2024-03-15 04:20 | External Medical Summary | Summary of Care ---
Author Name Unknown Organization [facility] Address [address] [facility] [place] [address] Phone [phone] Care Team Providers Care Desk Lieutenant Name Role Phone Terry Resendez MD Primary Care Provider [phone] Encounter Details Date Type Department Care Team (Late st Contact Info) Description 12/25/2023 Telephone Urology Anuja Adhikari [address] [place] [address] [place] [address] Mauricio Ramos MD [address] [place] [address] [place] [address] Allergies Active Allergy Reactions Criticality Noted Date Comments Ciprofloxacin Hives 09/01/2017 Statins 11/15/2020 All statins Simvastatin 05/07/2006 Severe myalgia's documented as of this encounter (statuses as of 12/28/2023) Medications Medication Sig Dispensed Refills Start Date End Date Status ASPIRIN EC 81 MG PO TBECIndications:Esther nary atherosclerosis of [place] coronary artery Take one pill daily 100 [...] encounter Miscellaneous Notes * Telephone Encounter - Mauricio Ramos MD [...] 12/31/2023 12:08 PM EDT Hospital Encounter OR [facility], Operating Room, [facility] - 4th Floor [address] [place] [address] Mauricio Ramos MD [address] [place] [address] [place] [address] 12/31/2023 12:08 PM EDT - 12/31/2023 1:41 PM EDT Surgery OR [facility], Operating Room, [facility] Floor [address] [place] [address] Mauricio Ramos MD [address] [place] [address] [place] [address] LASER VAPORIZATION PROSTATE 01/07/2024 1:30 PM EDT [facility] [address] [place] [address] Denys Nurse Urology Jared [address] [place] [address] 01/11/2024 9:00 AM EDT Office Visit Urology, [facility] [address] [facility] [place] [address] Mauricio Ramos MD [address] [address] [place] [address] 04/01/2024 11:58 AM EDT Hospital Encounter OR [facility], Operating Room, [facility] - 4th Floor 400 [facility] [place] [address] Seamus Calixto, DO 132 [facility] [place] [address] 04/01/2024 11:58 AM EDT - 04/01/2024 12:39 PM EDT Surgery OR [facility], Operating Room, [facility] - 4th Floor 400 [facility] [place] [address] Seamus Calixto, DO 132 [facility] [place] [address] COLONOSCOPY FLEXIBLE PROXIMAL DIAGNOSTIC 04/15/2024 2:00 PM EDT Office Visit [facility] [address] [place] [phone] Terry Resendez MD [address] [place] [address] 05/02/2024 3:40 PM EDT Office Visit Neurology [facility] 200 [facility] [place] [address] Elsie Capone MD 200 [facility] [place] [address] 06/06/2024 3:30 PM EDT Office Visit Cardiology, [facility] [address] [place] [address] Nargis Cardona CRNP [address] [place] [address] Scheduled Orders Name Type Priority Associated Diagnoses Orde r Schedule EKG COMPLETE (TRACING AND INTERP) EKG Routine Chest pain, unspecified type Ordered: 12/26/2023 Scheduled Procedures Name Priority Associated Diagnoses Date/Ti me LASER VAPORIZATION PROSTATE BPH with obstruction/lower urinary tract symptoms Nocturia Urinary retention 12/31/2023 12:08 PM EDT COLONOSCOPY FLEXIBLE PROXIMAL DIAGNOSTIC Recall History of colonic polyps 04/01/2024 11:58 AM EDT Health Maintenance Due Date Last Done Comments DISCUSS TOBACCO CESSATION (REFER TO SMARTSET #4529) 1954 Alpha-1 Antitrypsin 1972 Cologuard 1999 Fecal Occult Blood Test 1999 10/04/1998 Sigmoidoscopy 1999 Zoster Vaccines (1 of 2) 2004 *COPD SEVERITY VERIFIED BY PFT 08/22/2015 DXA Scan 11/27/2017 11/28/2015 *BISPHONATE OR OTHER ACCEPTABLE MEDICATION NEEDED FOR OSTEOPOROSIS (REFER TO SMARTSET #1156) 06/14/2018 Depression, Most Recent Score >= 10 [...] FOR COPD 10/21/2024 10/21/2023 GFR 11/17/2024 11/18/2023, /12/2022, 01/29/2023, Additional history exists DTaP,Tdap,and Td Vaccines (2 - Td or Tdap) 01/17/2026 01/18/2016, 03/15/2004 VITAMIN D LEVEL ONCE IN A LIFETIME-USE SMARTSET# [id number] Completed 12/18/2015, 02/09/2015, 06/29/2014, Additional history exists [...] this encounter Medical Devices Implanted Type Area Site Identification Specialist Device Identifier Shelf Expiration Date Model / Serial / Lot Stent Carotid 8-6x30 [id number] - [id number] Im[place]ed:Qty: 1 on [place]23[place] [facility] [place] Carotid [facility] : VASCULAR DEVICES 02/21/2016 [id number] / / [id number] documented as of this encounter Visit Diagnoses [...] the patient have Health Care Power of Exterior Designer? No Code Status History Code Status Date Activated Date Inactivated Comments Full Code 07/10/2017 5:59 PM 07/13/2017 3:18 PM Thi s order reflects the patients wishes and were consensually agreed upon. Question Answer Comments Discussion of Advance Directives occurred with: Patient/Family Does the patient have a Living Will? Yes, not currently available Does the patient have Health Care Power of Exterior Designer? No Full Code 08/23/2013 8:39 AM 08/24/2013 2:49 PM This order reflects the patients wishes and were consensually agreed upon. Full Code 08/02/2013 7:49 PM 08/06/2013 12:55 AM Th is order reflects the patients wishes and were consensually agreed upon. Question Answer Comments Discussion of Advance Directives occurred with: Patient/Family Care Teams Desk Lieutenant Relationship Specialty Start Date End Date Terry Resendez MD [address] [place] [address] PCP - General 04/07/1996 documented as of this encounter
--- OUTSIDE RECORDS SUMMARY | 2024-03-15 04:20 | External Medical Summary | Summary of Care ---
Author Name Unknown Organization [facility] Address [address] [place] [facility] [place] [address] Phone [phone] Care Team Providers Care Cook Fast Food Name Role Phone Terry Resendez MD Primary Care Provider [phone] Encounter Details Date Type Department Care Team (Late st Contact Info) Description 12/25/2023 Telephone Urology Anuja Adhikari [address] [place] [address] [place] [address] Mauricio Ramos MD [address] [place] [address] [place] [id number] Allergies Active Allergy Reactions Criticality Noted Date Comments Ciprofloxacin Hives 09/01/2017 Statins 11/15/2020 All statins Simvastatin 05/07/2006 Severe myalgia's documented as of this encounter (statuses as of 12/26/2023) Medications Medication Sig Dispensed Refills Start Date End Date Status ASPIRIN EC 81 MG PO TBECIndications:Esther nary atherosclerosis of [place] coronary artery Take one pill daily 100 [...] as of this encounter (statuses as of 12/26/2023) Active Problems Problem Noted Date Diagnosed Date [...] as of this encounter (statuses as of 12/26/2023) Resolved Problems Problem Noted Date Diagnosed Date [...] 08/04/2013 06/29/2018 Alcohol consuption of more t matisa two drinks per day 08/02/2013 07/11/2017 Acute [...] as of this encounter (statuses as of 12/26/2023) Immunizations Name Administration Dates Next Due Pneumococcal [...] encounter Miscellaneous Notes * Addendum Note - Nargis Cardona CRNP [...] 12/31/2023 12:08 PM EDT Hospital Encounter OR [facility], Operating Room, [facility] - [address] [place] [address] [address] [place] [address] Mauricio Ramos MD [address] [place] [address] [place] [address] 12/31/2023 12:08 PM EDT - 12/31/2023 1:41 PM EDT Surgery OR [facility], Operating Room, [address] [place] [address] Mauricio Ramso MD [address] [place] [address] [place] [address] LASER VAPORIZATION PROSTATE 01/07/2024 1:30 PM EDT Nurse Only Urology, [facility] [address] [place] [address] [place], Nurse Urology [facility] [address] [place] [address] 01/11/2024 9:00 AM EDT Office Visit Urology, [facility] [address] [place] [address] Mauricio Ramos MD [address] [place] [address] [place] [address] 04/01/2024 11:58 AM EDT Hospital Encounter OR [facility], Operating Room, [facility] - [address] [place] [address] [address] [place] [address] Seamus Calixto DO [address] [place] [address] 04/01/2024 11:58 AM EDT - 04/01/2024 12:39 PM EDT Surgery OR [facility], Operating Room, [facility] - 4th Floor [address] [place] [address] Seamus Calixto DO [address] [place] [address] COLONOSCOPY FLEXIBLE PROXIMAL DIAGNOSTIC 04/15/2024 2:00 PM EDT Office Visit Family [facility] [address] [place] [phone] Terry Resendez MD [address] [place] [address] 05/02/2024 3:40 PM EDT Office Visit Neurology [facility] 200 [facility] [place] [address] Elsie Capone MD 200 [place] [address] 06/06/2024 3:30 PM EDT Office Visit Cardiology, [facility] [address] [place] [address] Nargis Cardona CRNP [address] [place] [address] Scheduled Orders Name Type Priority Associated Diagnoses [...] Comments DISCUSS TOBACCO CESSATION (REFER TO SMARTSET #3767) 1954 Alpha-1 Antitrypsin 1972 Cologuard 1999 Fecal Occult Blood Test 1999 10/04/1998 Sigmoidoscopy 1999 Zoster Vaccines (1 of 2) 2004 *COPD SEVERITY VERIFIED BY PFT 08/22/2015 DXA Scan 11/27/2017 11/28/2015 *BISPHONATE OR OTHER ACCEPTABLE MEDICATION NEEDED FOR OSTEOPOROSIS (REFER TO SMARTSET #7413) 06/14/2018 Depression, Most Recent Score >= 10 [...] D LEVEL ONCE IN A LIFETIME-USE SMARTSET# [id number] Completed 12/18/2015, 02/09/2015, 06/29/2014, Additional history exists [...] this encounter Medical Devices Implanted Type Area Nursing Unit Coordinator Device Identifier Shelf Expiration Date Model / Serial / Lot Stent Carotid [id number] [id number] - [id number] Implanted:Qty: 1 on 08/23/2013 at [facility] Right: Carotid [employer] [facility] : VASCULAR DEVICES 02/21/2016 [id number] / / [id number] documented as of this encounter Visit Diagnoses [...] the patient have Health Care Power of Ribbon Blockmaker? No Code Status History Code Status Date Activated Date Inactivated Comments Full Code 07/10/2017 5:59 PM 07/13/2017 3:18 PM Thi s order reflects the patients wishes and were consensually agreed upon. Question Answer Comments Discussion of Advance Directives occurred with: Patient/Family Does the patient have a Living Will? Yes, not currently available Does the patient have Health Care Power of Ribbon Blockmaker? No Full Code 08/23/2013 8:39 AM 08/24/2013 2:49 PM This order reflects the patients wishes and were consensually agreed upon. Full Code 08/02/2013 7:49 PM 08/06/2013 12:55 AM Th is order reflects the patients wishes and were consensually agreed upon. Question Answer Comments Discussion of Advance Directives occurred with: Patient/Family Care Teams Cook Fast Food Relationship Specialty Start Date End Date Terry Resendez MD [address] [place] [address] PCP - General 04/07/1996 documented as of this encounter
--- OUTSIDE RECORDS SUMMARY | 2024-03-15 04:20 | External Medical Summary | Summary of Care ---
Author Name Unknown Organization [facility] Address [address] [place] [address] Phone [phone] Care Team Providers Care Analysis Specialist Name Role Phone Terry Resendez MD Primary Care Provider [phone] Encounter Details Date Type Department Care Team (Late st Contact Info) Description 12/25/2023 Telephone Urology Anuja Adhikari [address] [place] [address] [place] [address] Mauricio Ramos MD [address] [place] [address] [place] [phone] Allergies Active Allergy Reactions Criticality Noted Date Comments Ciprofloxacin Hives 09/01/2017 Statins 11/15/2020 All statins Simvastatin 05/07/2006 Severe myalgia's documented as of this encounter (statuses as of 12/26/2023) Medications Medication Sig Dispensed Refills Start Date End Date Status ASPIRIN EC 81 MG PO TBECIndications:Esther nary atherosclerosis of [place] coronary artery Take one pill daily 100 [...] 12/31/2023 12:08 PM EDT Hospital Encounter OR [facility], Operating Room, [facility] - 4th Floor [address] [place] [address] Mauricio Ramos MD [address] [place] [address] [place] [address] 12/31/2023 12:08 PM EDT - 12/31/2023 1:41 PM EDT Surgery OR [facility], Operating Room, [facility] - 4th Floor [address] [place] [address] Mauricio Ramos MD [address] [place] [address] [place] [address] LASER VAPORIZATION PROSTATE 01/07/2024 1:30 PM EDT Nurse Only Urology, [facility] 132 [facility] [place] [address] [facility], Nurse Urology [facility] [address] [place] [address] 01/11/2024 9:00 AM EDT Office Visit Urology, [facility] [address] [place] [address] Mauricio Ramso MD [address] [place] [address] [place] [address] 04/01/2024 11:58 AM EDT Hospital Encounter OR [facility], Operating Room, [facility] - 4th Floor [address] [place] [address] Seamus Calixto, DO [address] [place] [address] 04/01/2024 11:58 AM EDT - 04/01/2024 12:39 PM EDT Surgery OR [facility], Operating Room, [facility] - 4th Floor [address] [place] [address] Seamus Calixto, DO [address] [place] [address] COLONOSCOPY FLEXIBLE PROXIMAL DIAGNOSTIC 04/15/2024 2:00 PM EDT Office Visit [facility] [address] [place] [address] Terry Resendez MD [address] [place] [address] 05/02/2024 3:40 PM EDT Office Visit Neurology [facility] 200 [facility] [place] [address] Elsie Capone MD 200 [place] [address] 06/06/2024 3:30 PM EDT Office Visit Cardiology, [facility] [address] [place] [address] Nargis Power CRNP [address] [place] [address] Scheduled Procedures Name Priority Associated Diagnoses Date/Ti me LASER VAPORIZATION PROSTATE BPH with obstruction/lower urinary tract symptoms Nocturia Urinary retention 12/31/2023 12:08 PM EDT COLONOSCOPY FLEXIBLE PROXIMAL DIAGNOSTIC Recall History of colonic polyps 04/01/2024 11:58 AM EDT Health Maintenance Due Date Last Done Comments DISCUSS TOBACCO CESSATION (REFER TO SMARTSET #3315) 1954 Alpha-1 Antitrypsin 1972 Cologuard 1999 Fecal [...] D LEVEL ONCE IN A LIFETIME-USE SMARTSET# [id number] Completed 12/18/2015, 02/09/2015, 06/29/2014, Additional history exists [...] this encounter Medical Devices Implanted Type Area Payer Specialist Device Identifier Shelf Expiration Date Model / Serial / Lot Stent Carotid [id number] [id number] - [id number] Implanted:Qty: 1 on 08/23/2013 at [place] [facility] [place] Right: Carotid [facility] : VASCULAR DEVICES 02/21/2016 [id number] / / [id number] documented as of this encounter Visit Diagnoses [...] the patient have Health Care Power of Philosophy Specialist? No Code Status History Code Status Date Activated Date Inactivated Comments Full Code 07/10/2017 5:59 PM 07/13/2017 3:18 PM Thi s order reflects the patients wishes and were consensually agreed upon. Question Answer Comments Discussion of Advance Directives occurred with: Patient/Family Does the patient have a Living Will? Yes, not currently available Does the patient have Health Care Power of Philosophy Specialist? No Full Code 08/23/2013 8:39 AM 08/24/2013 2:49 PM This order reflects the patients wishes and were consensually agreed upon. Full Code 08/02/2013 7:49 PM 08/06/2013 12:55 AM Th is order reflects the patients wishes and were consensually agreed upon. Question Answer Comments Discussion of Advance Directives occurred with: Patient/Family Care Teams Analysis Specialist Relationship Specialty Start Date End Date Terry Resendez MD [address] [facility] [place] [address] PCP - General 04/07/1996 documented as of this encounter
[2024-03-15 06:34] LABS: Basophils % (auto) 1.3 %; Eosinophils # (auto) 0.16 K/uL (0.00-0.50); Eosinophils % (auto) 2.2 %; Hematocrit (blood only) 40.1 % (42.0-52.0); Hemoglobin 13.7 g/dl (14.0-18.0); Immature Granulocytes # (auto) 0.05 K/uL (0.01-0.20); Immature Granulocytes % (auto) 0.7 %; Lymphocytes # (auto) 1.48 K/uL (1.20-3.40); Lymphocytes % (auto) 19.9 %; Mean Corpuscular Hemoglobin 32.4 pg (25.0-34.0); Mean Corpuscular Hgb Conc 34.2 g/dL (32.0-36.0); Mean Corpuscular Volume 94.8 fL (80.0-100.0); Mean Platelet Volume 8.4 fL (9.4-12.4); Monocytes # (auto) 0.68 K/uL (0.11-0.59); Monocytes % (auto) 9.2 %; Neutrophils # (auto) 4.96 K/uL (1.40-6.50); Neutrophils % (auto) 66.7 %; Platelet Count 193 K/uL (130-400); RDW Standard Deviation 41.9 fL (36.4-46.3); Red Blood Count 4.23 M/uL (4.70-6.10); White Blood Count 7.43 K/ul (4.8-10.8)
[2024-03-15 06:49] LABS: Magnesium 2.1 mg/dl (1.7-2.4)
[2024-03-15 07:21] LABS: Folate (Folic Acid),Ser orPlas > 22.30 ng/ml (>5.38)
[2024-03-15 07:22] LABS: Vitamin B12 428 pg/ml (180-914)
[2024-03-15 07:55] LABS: Calcium 9.2 mg/dl (8.6-10.3); Potassium 4.4 mmol/L (3.5-5.1)
[2024-03-15 08:01] LABS: BUN Creatinine Ratio 7.7 (10-20); Creatinine Clr Calc Pharmacy 92.2 ml/min; Est GFR (African American) 99.3 ml/min; Est GFR (Non-African American) 85.7 ml/min
[2024-03-15 08:08] LABS: Troponin I High Sensitivity 6.4 pg/ml (0-20)
--- NOTE | 2024-03-15 08:32 | Cardiology Consultation ---
Date of Consultation March 15, 2024 Assessment & Plan (1) Chest pain: (2) Acute hyponatremia: (3) Uncontrolled hypertension: (4) CAD (coronary artery disease): Plan Patient admitted with atypical chest pain, hypertension. HS troponin negative x4 since admission. No acute ischemic EKG changes. Echo with normal LVEF, no wall motion abnormalities. He has a history of complex coronary artery disease for which medical management was recommended due to complications with prior cath (aortic dissection/CVA). BP remains significantly elevated this morning. Possible alcohol withdrawal also contributing. At this time, would recommend further titration of his antihypertensive regimen. Increase amlodipine to 5 mg BID. Consider increasing metoprolol dose Continue isosorbide 60 mg. Continue ASA, plavix and patient takes PCSK9 inhib as outpatient. statin intolerant. Treatment of alcohol withdrawal recommended. Consider inpatient/outpatient rehab. Hyponatremia noted on admission, improved this morning. Case discussed with Dr. Carr I spent a total of 60 minutes on the date of service in preparation, delivery, and documentation of the care provided to this patient, excluding any time spent in the performance of separately billed services. Alicia Pulido PA-C Department of Cardiology, [facility] This chart was completed in part utilizing Speech Voice Recognition Software. Grammatical errors, random word insertions, pronoun errors, and incomplete sentences are an occasional consequence of this system due to software limitations, ambient noise, and hardware issues. Any formal questions or concerns about the content, text, or information contained within the body of this dictation should be directly addressed to the provider for clarification. Supervising Physician Co-Signing Physician Notes Attending physician attestation. I have personally performed a history and physical examination on the patient. I have reviewed the advance practitioner's documentation, and I agree with, and take responsibility for the plan of care. 68-year-old male admitted with atypical chest discomfort. No evidence of acute coronary syndrome. Currently pain-free. With elevated blood pressure. Significant daily alcohol intake noted with concerns regarding alcohol withdrawal and resultant elevated blood pressure. Management of alcohol withdrawal as per internal medicine. Titrate amlodipine as noted above with consideration for beta-radha titration pending clinical response. Routine outpatient cardiology follow-up postdischarge. I spent a total of 30 minutes on the date of service in preparation, delivery, and documentation of the care provided to this patient, excluding any time spent in the performance of separately billed services. Tomas Carr DO, [facility] History of Present Illness Reason for Consultation: Chest pain; history of CAD Requesting Physician: Dr. Guidry Attending Physician: Dr. Carr History of Present Illness Patient is a 68-year-old male who presents to [facility] with complaints of chest pain. Patient known to [facility] cardiology, Dr. Escamilla. Last clinic visit in December 2023 with Margaret Graf PA-C. Complex history includes: 1. Chronic alcohol and tobacco use 2. Chronic hyponatremia 3. Recurrent syncopal episodes and symptomatic orthostatic hypotension 4. Chronic headaches, intermittent dizziness 5. Atypical chest pain - Chest tightness at nighttime and dysphagia, significantly improved following addition of omeprazole, reproducible chest wall pain today. 6. Chronic RCA occlusion, attempted [employer] PCI that was partially successful, plain balloon angioplasty performed but stents could not be accommodated, postprocedure CVA. Patient also had aortic dissection during cath. Med management 7. History of carotid disease, with right carotid stent, patent, left internal carotid artery occlusion 8. Hypertension 9. Significant dyslipidemia with intolerance to multiple medications. Hospitalized after a severe reaction to simvastatin in 2005. Placed on gemfibrozil in 2007 which was also discontinued due to muscle side effects. Fenofibrate in 2012 which was discontinued due to muscle side effects. Deemed to not be a candidate for statin therapy (patient and provider opinion). Prescribed Praluent with improved lipid control. Has been non compliant 10. Daytime fatigue, chronic headaches, witnessed apneic episodes, loud snoring. Sleep testing back in December of 2017 showed no evidence of clinically significant sleep apnea/hypopnea or nocturnal hypoxemia. No REM sleep was attained, so no comments were made about REM without atonia. Severe periodic limb movement disorder noted. Patient was in normal state of health yesterday sitting in his garage, waiting for his to return with his beer, when he developed sudden "flushing/sweating"/diaphoresis and left sided chest pain. He drank 2 beers and went in to lay down. Symptoms persisted for an hour or so, and he came to the ER for evaluation. He reports having similar symptoms over the last few days. He had tried taking 1-2 nitro doses over the last few days but felt no significant improvement in his chest pain with the nitro. He was not monitoring his BP at home. He admits to chronic alcohol intake. He typically drinks 4-5 beers in the morning and 4-5 at night. Upon admission, sodium levels were low at 127. Gentle hydration initiated. HS troponin negative x4 since admission. EKG without acute changes. D.Dimer was elevated and Chest CTA performed which was negative for PE. Patient has been hypertensive since arrival to [facility]. At time of consult, patient reports he is chest pain free and feeling "good". BP significantly elevated this morning. No symptoms. No fever, cough, chills. No orthopnea, PND or edema. Allergies Allergy/AdvReac Type Severity Reaction Status Date / Time ciprofloxacin Allergy Severe hives Verified 03/14/24 20:47 simvastatin AdvReac Intermediate MUSCLE Verified 03/14/24 20:47 PAIN/WEAKNESS [id number] Reductase AdvReac Intermediate MUSCLE Unverified 03/14/24 20:47 Inhibitor PAIN/WEAKNESS [Ssqbfyi-Msh-Tyw Reductase Inhibitor] Home Medications Medication Instructions Recorded Confirmed Type clopidogrel 75 mg tablet 75 mg PO QAM ##0 06/14/15 03/14/24 History tamsulosin 0.4 mg capsule 0.4 mg PO Q OTHER DAY ##0 07/24/17 03/14/24 History isosorbide mononitrate 60 mg 60 mg PO QAM #0 tabs 04/18/18 03/14/24 History tablet,extended release 24 hr nitroglycerin 0.4 mg sublingual 0.4 mg sublingual DIRECTED PRN 04/18/18 03/14/24 History tablet Chest Pain ##0 thiamine HCl (vitamin B1) 100 mg 100 mg PO QAM ##0 04/22/18 03/14/24 History tablet aspirin 81 mg tablet,delayed 81 mg PO QAM 10/02/18 03/14/24 History release hydrocodone 5 mg-acetaminophen 325 1 tab PO TID PRN Pain 05/18/19 03/14/24 History mg tablet ondansetron HCl 4 mg tablet 4 mg PO Q6H PRN Nausea 06/15/21 03/14/24 History acetaminophen 500 mg tablet 500 - 1,000 mg PO Q6 PRN Pain 11/27/22 03/14/24 History albuterol sulfate 90 mcg/actuation 2 puff inhalation Q4 PRN Wheezing 11/27/22 03/14/24 History aerosol inhaler cholecalciferol (vitamin D3) 50 50 mcg PO QAM 11/27/22 03/14/24 History mcg (2,000 unit) capsule (Vitamin D3) duloxetine 30 mg capsule,delayed 30 mg PO AMPM 11/27/22 03/14/24 History release finasteride 5 mg tablet 5 mg PO QAM 11/27/22 03/14/24 History omeprazole 20 mg capsule,delayed 20 mg PO Q OTHER DAY 11/27/22 03/14/24 History release levetiracetam 500 mg tablet 500 mg PO BID #60 tabs 12/12/22 03/14/24 Rx (Keppra) lasmiditan 50 mg tablet (Reyvow) 50 mg PO DIRECTED PRN Migraine 07/09/23 03/14/24 History Headache metoprolol succinate 25 mg 25 mg PO QAM #30 tabs 07/10/23 03/14/24 Rx tablet,extended release 24 hr amlodipine 5 mg tablet 5 mg PO QPM 03/14/24 03/14/24 History tramadol 50 mg tablet 50 mg PO Q6 PRN Pain 03/14/24 03/14/24 History Patient History Medical History Bacteremia Hyponatremia Closed fracture of right iliac wing Closed fracture of left inferior pubic ramus Closed fracture of superior ramus of left pubis Closed fracture of right superior pubic ramus Closed fracture of right inferior pubic ramus Sacral fracture, closed Hypertension History of aortic dissection Tobacco use disorder Alcohol use disorder Left thalamic infarction "July 2017" Diabetes mellitus, type II COPD (chronic obstructive pulmonary disease) Statin intolerance ASCVD (arteriosclerotic cardiovascular disease) Classic migraine H/O: CVA (cerebrovascular accident) "2005; residual R sided weakness" Dyslipidemia GERD (gastroesophageal reflux disease) Depression Family History Son Spherocytosis Other Heart disease Social History Smoking Status: Current every day smoker Tobacco Type: Cigarettes Cigarettes Per Day: .5ppd; Second Hand Exposure: No; Do You Dip or Chew Tobacco: No; Tobacco Cessation Education Requested by Patient: No Hx Alcohol Use: Yes Alcohol type: beer Alcohol Intake Frequency: 4 or More x per/Week Alcohol Intake Frequency Comment: 5-6 beers/day Hx Substance Use: No Preferred Language: [place]ian Communication Ability: Effective Communication Ability Comment: occassional expressive aphasia from prior CVA Aligning Checker Required: No Beliefs That Will Affect Care: None marital status: Current Living Situation: Spouse Current Living Situation Comment: How many Children do You have: 3 Other Information That Helps Us Care for You: No Feels Safe at Home: Yes Safety Concerns: Feels Safe At This Time Assistive Devices: Walker Review of Systems Review of Systems: All systems reviewed & are unremarkable except as noted in HPI & below Physical Exam Constitutional: WD/WN, vitals as above average body habitus; no acute distress Neck: normal visual inspection Respiratory: normal respiratory effort Auscultation: + diminished lung sounds; no rales and no rhonchi Cardiovascular: Rate/Rhythm: regular rate and regular rhythm Heart Sounds: normal S1 and normal S2; no murmur Vessels: no JVD Extremities: no edema Gastrointestinal (Abdomen): normal bowel sounds, soft, nontender, no hepatosplenomegaly Skin: no rashes, warm and dry Neurologic: PERRL, EOMI, accommodation nl, no face palsy, no dysarthria Psychiatric: A+Ox3, euthymic affect Results & Data Vital Signs (Past 12 Hours) Vital Signs Temp Pulse Pulse Resp BP BP Pulse Ox 03/15/24 03:34 36.7 C 69 18 166/73 H 97 03/14/24 23:04 72 03/14/24 23:00 03/14/24 23:00 36.3 C L 79 18 196/97 H 97 03/14/24 22:00 74 18 165/74 H 97 03/14/24 21:00 168/86 H 03/14/24 20:54 66 21 97 O2 Del Method 03/15/24 03:34 Room Air 03/14/24 23:04 03/14/24 23:00 Room Air 03/14/24 23:00 Room Air 03/14/24 22:00 03/14/24 21:00 03/14/24 20:54 Laboratory Results Cardiac Enzymes 03/14/24 03/14/24 03/15/24 Range/Units 17:58 20:55 05:35 AST 48 H (13-39) U/L Troponin I High Sens 5.3 5.2 6.4 (0-20) pg/ml Coagulation 03/14/24 Range/Units 17:58 PT 10.4 (9.0-12.0) Seconds APTT 26 (21-31) Seconds CBC 03/14/24 03/15/24 Range/Units 17:58 05:35 WBC 8.18 7.43 (4.8-10.8) K/ul RBC 4.46 L 4.23 L (4.70-6.10) M/uL Hgb 14.2 13.7 L (14.0-18.0) g/dl Hct 41.7 L 40.1 L (42.0-52.0) % Plt Count 229 193 (130-400) K/uL Neut # (Auto) 5.50 4.96 (1.40-6.50) K/uL Lymph # (Auto) 1.81 1.48 (1.20-3.40) K/uL Wood # (Auto) 0.60 H 0.68 H (0.11-0.59) K/uL Eos # (Auto) 0.12 0.16 (0.00-0.50) K/uL Baso # (Auto) 0.08 0.10 (0.00-0.20) K/uL Comprehensive Metabolic Panel 03/14/24 03/15/24 Range/Units 17:58 05:35 Sodium 127 L 134 L (136-145) mmol/L Potassium 3.7 4.4 (3.5-5.1) mmol/L Chloride 92 L 102 (98-107) mmol/L Carbon Dioxide 25 24 (21-32) mmol/L BUN 8 7 (6-23) mg/dl Creatinine 0.98 0.91 (0.6-1.4) mg/dl Glucose 125 H 113 H (70-99(Fasting)) mg/dl Calcium 9.6 9.2 (8.6-10.3) mg/dl AST 48 H (13-39) U/L ALT 46 (7-52) U/L Alkaline Phosphatase 69 (34-104) U/L Total Protein 7.9 (6.0-8.3) gm/dl Albumin 4.6 (3.4-5.0) gm/dl Intake and Output 03/14/24 03/15/24 03/15/24 22:59 06:59 14:59 Intake Total 1011.2 / 1011.2 Output Total 800 / 800 Balance 211.2 / 211.2 Intake: IV 1011.2 / 1011.2 Multi-Vitamin Infusion 10 ml 1011.2 / 1011.2 Thiamine HCl 100 mg Folic Acid 1 mg In Sodium Chloride 0.9% 1, 000 ml @ 500 mls/hr IV .Q2H2M ONE Rx#:[id number] Output: Urine 800 / 800 Other: # Unmeasured Voids 1 Weight 104.3 kg 99.7 kg Weight Measurement Method [facility] Diagnostic Findings Telemetry reviewed: NSR in the 's Echo Report reviewed from today, 03/15/2024: Compared to prior study, no significant changes. LV systolic function is normal. LV ejection fraction 60 to 65%. Mild concentric LVH. Left ventricular wall motion is normal. Grade 1 diastolic dysfunction. Mild aortic regurgitation. EKG reviewed from admission: Normal sinus rhythm Nonspecific ST abnormality Abnormal ECG When compared with prior EKG in December 2023, No significant change was found Repeat EKG reviewed from 03/15/24 Normal sinus rhythm Nonspecific ST abnormality No significant change was found Chest CTA report reviewed dated 03/14/24: IMPRESSION: No acute pulmonary embolism. Prior outside data: Echo report reviewed from Jun 2023: Normal LVEF at 55-60% Mild concentric LVH Grade I diastolic dysfunction. No wall motion abnormalities Medications Administered Current Inpatient Medications Acetaminophen (Acetaminophen 325 Mg Tab) 650 mg PO Q4H PRN PRN Reason: Pain or Fever Stop: 04/13/24 23:03 Hydrocodone Bitart/Acetaminophen (Hydrocodone/Acetamophen 5/325mg Tab) 1 tab PO TID PRN PRN Reason: Pain Stop: 03/28/24 23:03 Albuterol (Albuterol Hfa 8 Gm Inhaler) 2 puffs INH Q4 PRN PRN Reason: Wheezing Stop: 04/13/24 23:03 Amlodipine Besylate (Amlodipine Besylate 5 Mg Tab) 5 mg PO QPM BRIAN Stop: 04/14/24 20:59 Aspirin (Aspirin 81 Mg Ectab) 81 mg PO QAM BRIAN Stop: 04/14/24 08:59 Clopidogrel Bisulfate (Clopidogrel Bisulfate 75 Mg Tab) 75 mg PO QAM BRIAN Stop: 04/14/24 08:59 Duloxetine HCl (Duloxetine Hcl 30 Mg Cap) 30 mg PO BID [facility] Stop: 04/13/24 23:14 Last Admin: 03/14/24 23:40 Dose: 30 mg Finasteride (Finasteride 5 Mg Tab) 5 mg PO QAM [facility] Stop: 04/14/24 08:59 Gabapentin (Gabapentin 600 Mg Tab) 600 mg PO Q6H [facility] Stop: 03/15/24 09:01 Last Admin: 03/15/24 03:36 Dose: 600 mg Gabapentin (Gabapentin 600 Mg Tab) 600 mg PO Q8H [facility] Stop: 03/16/24 09:01 Gabapentin (Gabapentin 600 Mg Tab) 600 mg PO Q12H [facility] Stop: 03/17/24 09:01 Gabapentin (Gabapentin 600 Mg Tab) 600 mg PO Q24H [facility] Stop: 03/18/24 09:01 Sodium Chloride (Nss) 1,000 mls @ 50 mls/hr IV .Q20H [facility] Stop: 04/14/24 01:29 Last Admin: 03/15/24 01:38 Dose: 50 mls/hr Lorazepam 1 mg/ Syringe 1 mls @ 2 mls/min IV UD PRN; Protocol PRN Reason: EtOH Withdrawal AWSS Score 6,7 Stop: 04/13/24 23:03 Lorazepam 2 mg/ Syringe 2 mls @ 2 mls/min IV UD PRN; Protocol PRN Reason: EtOH Withdrawal AWSS Score 8,9 Stop: 04/13/24 23:03 Lorazepam 3 mg/ Syringe 3 mls @ 2 mls/min IV ONCE PRN; Protocol PRN Reason: EtOH Withdrawal AWSS Score 10+ Isosorbide Mononitrate (Isosorbide Wood Extended Rel 60 Mg Tabcr) [facility] 04/14/24 08:59 Levetiracetam (Levetiracetam 500 Mg Tab) 500 mg PO BID [facility] Stop: 04/13/24 23:03 Last Admin: 03/14/24 23:40 Dose: 500 mg Metoprolol Succinate (Metoprolol Succ 25mg Ext Rel Tab) 25 mg PO QAM [facility] Stop: 04/14/24 08:59 Nitroglycerin (Nitroglycerin Sl 0.4 Mg/Tab Tab) 0.4 mg SL Q5M PRN PRN Reason: Chest Pain Stop: 04/13/24 23:03 Ondansetron HCl (Ondansetron Inj 2 Mg/Ml 2 Ml Vial) 4 mg IV Q6H PRN PRN Reason: Nausea Stop: 04/13/24 23:03 Pantoprazole Sodium (Pantoprazole 40 Mg Tab) 40 mg PO Q2D [facility] Stop: 04/14/24 08:59 Polyethylene Glycol (Polyethylene (Miralax) 17 Gm Pack) 17 gm PO DAILY PRN PRN Reason: Constipation Stop: 04/13/24 23:03 Tamsulosin HCl (Tamsulosin Hcl 0.4 Mg Cap) 0.4 mg PO Q2D [facility] Stop: 04/14/24 08:59 Thiamine HCl (Thiamine Hcl 100 Mg Tab) 100 mg PO QAM [facility] Stop: 04/14/24 08:59 Vitamin D (Cholecalciferol 25 Mcg (1000 Units) Tab) 50 mcg PO QAM [facility] Stop: 04/14/24 08:59 (1) Chest pain Chest pain type: unspecified Qualified Code(s): R07.9 - Chest pain, unspecified (4) CAD (coronary artery disease) Associated angina: without angina Coronary Disease-Associated Artery/Lesion type: [place] artery [place] vs. transplanted heart: [place] heart Qualified Code(s): I25.10 - Atherosclerotic heart disease of [place] coronary artery without angina pectoris
[2024-03-15] MEDS: METOPROLOL SUCC 25MG EXT REL TAB PO SCH ×2 (08:47→20:14)
[2024-03-15] MEDS: PANTOprazole 40 MG TAB PO SCH (08:48)
[2024-03-15] MEDS: CHOLECALCIFEROL 25 MCG (1000 UNITS) TAB PO SCH (08:48)
[2024-03-15] MEDS: CLOPIDOGREL BISULFATE 75 MG TAB PO SCH (08:48)
[2024-03-15] MEDS: ISOSORBIDE MONO EXTENDED REL 60 MG TABCR PO SCH (08:48)
[2024-03-15] MEDS: ASPIRIN 81 MG ECTAB PO SCH (08:48)
[2024-03-15] MEDS: THIAMINE HCL 100 MG TAB PO SCH (08:48)
[2024-03-15] MEDS: FINASTERIDE 5 MG TAB PO SCH (08:48)
[2024-03-15] MEDS: TAMSULOSIN HCL 0.4 MG CAP PO SCH (08:48)
[2024-03-15] MEDS: NITROGLYCERIN 2% OINTMENT 30GM TUBE EXT ONE (10:47)
[2024-03-15] MEDS: amLODIPine BESYLATE 5 MG TAB PO SCH (11:18)
--- NOTE | 2024-03-15 11:34 | Electrocardiogram Report ---
Test Reason : Blood Pressure : / mmHG Vent. Rate : 085 BPM Atrial Rate : 085 BPM P-R Int : 162 ms QRS Dur : 094 ms QT Int : 382 ms P-R-T Axes : 087 070 058 degrees QTc Int : 454 ms Poor data quality, interpretation may be adversely affected Normal sinus rhythm Diffuse Nonspecific ST abnormality Abnormal ECG When compared with ECG of 14-MAR-2024 18:16, No significant change was found Confirmed by Prince Santiago ([id number]) on 03/15/2024 11:33:59 AM Referred By: REFERRED SELF Confirmed By:Prince Santiago
--- NOTE | 2024-03-15 11:42 | Electrocardiogram Report ---
Test Reason : Blood Pressure : / mmHG Vent. Rate : 068 BPM Atrial Rate : 068 BPM P-R Int : 166 ms QRS Dur : 100 ms QT Int : 420 ms P-R-T Axes : 085 078 062 degrees QTc Int : 446 ms Normal sinus rhythm Normal ECG When compared with ECG of 25-DEC-2023 11:13, No significant change was found Confirmed by Prince Santiago ([id number]) on 03/15/2024 11:42:06 AM Referred By: Confirmed By:Prince Santiago
--- NOTE | 2024-03-15 16:43 | Hospitalist Progress Note ---
Date of Service March 15, 2024 Assessment & Plan (1) Chest pain: Plan: 68-year-old male with past medical history significant for type 2 diabetes, hyperlipidemia, diabetic peripheral angiopathy, COPD, internal carotid artery occlusion, thoracic aortic dissection, history of CVA, hypertension, CAD s/p stent, history of bradycardia, vitamin D deficiency, urinary retention, BPH, chronic bilateral low back pain, lumbar spondylosis, [place] syndrome, classic migraine, history of seizures, depression ongoing tobacco use and alcohol use comes with chest pains. Patient states around 3 PM while he was resting he noticed left-sided chest pain radiating to left shoulder associated with nausea, sweating and shortness of breath and pain was very severe. EMS was called and en route was given aspirin. By time he came to the ER the pain got resolved. The pain lasted for about couple of hours. And he is having this pain on and off for last couple of days. And he took nitro last couple of days but did not take today. As per since Thursday is somewhat wobbly while walking. Patient currently has a migraine headache. States his right eye vision is always blurry. No runny nose. Some cough. Currently no chest pain or shortness of breath. Complains of mild abdominal pain. Normal bowel and bladder movements. Appetite is okay. But states he chokes on food a lot. Still smoking 1 pack of cigarettes daily and drinking 6 beers daily. Currently hemodynamics are okay.Patient fell a couple of days ago and has bruise on his right lower [place] region. Chest pain History of CAD s/p stent Chronic RCA occlusion attempted TROMPER PCI which was partially successful, plain balloon angioplasty performed but stent could not be accommodated and postprocedure had CVA Initial troponin and EKG okay. Serial troponins were unremarkable and the EKG was nonischemic as well Echo of the heart showed NEUROLOGICAL: Alert, oriented, and cooperative. Cranial nerves, sensation and strength grossly intact. Pupils round, equal, and react to light, EOMs are full. LVEF and no wall motion abnormalities Denies any more chest pain since admission Will monitor in the telemetry unit Will continue current medications Uncontrolled hypertension His amlodipine has been increased to 5 mg twice daily Metoprolol has been increased as well Will continue isosorbide and monitor blood pressure follow-up good bowel however's interview very okay Chronic hyponatremia Likely secondary to ongoing alcohol abuse Sodium 127 Serum and urine osmolarity at the lower limit and urine sodium was 18 Sodium level has gone up to 143 Will monitor PRP Alcoholism states gets withdrawal if no alcohol Received banana bag and will continue with thiamine and folic acid Alcohol withdrawal protocol with gabapentin and IV Ativan as needed No signs and or symptoms of withdrawal History of embolic CVA On aspirin Plavix and Repatha Ambulatory dysfunction PT OT when stable Questionable aspiration Speech evaluation History of carotid artery disease with right carotid stent Left internal carotid artery occlusion On aspirin and Plavix and Repatha Hyperlipidemia Intolerance to statins and gemfibrozil and fenofibrate Currently on Repatha BPH On Flomax and finasteride Will monitor Tobacco abuse Needs counseling Elevated D-dimer Complains of shortness of breath CTA was negative for any pulmonary embolism History of seizures disorder On Keppra Chronic pain Continue home pain medications Depression On Cymbalta DVT prophylaxis SCDs Disposition Telemetry Full code. (2) Uncontrolled hypertension: (3) Demand ischemia: (4) CAD (coronary artery disease): (5) Acute hyponatremia: Admission and Anticipated Discharge Date Admission Date: March 14, 2024 Subjective 03/15/2024 The patient was seen and examined in telemetry unit He was admitted with chest pain without any evidence of ACS as of now Noted to have very high blood pressure Denies any more chest pain and/or palpitation and has been feeling Review of Systems Review of Systems: All systems reviewed and are unremarkable except as noted below Physical Exam Physical Exam: Lying in bed without any acute distress Constitutional: well developed, well nourished and + ill appearing Eyes: PERRL, conjunctivae normal, anicteric sclerae ENMT: external ear and nose normal, oropharynx normal Neck: trachea midline, no thyromegaly Respiratory: no respiratory distress Auscultation: + diminished lung sounds and + crackles (Minimal crackles in the dependent part) Cardiovascular: Rate/Rhythm: regular rate and regular rhythm; not tachycardic Heart Sounds: normal S1 and normal S2; no murmur Extremities: + edema (Trace edema bilaterally) Gastrointestinal (Abdomen): Inspection/Auscultation: + abdomen distended and normal bowel sounds Percussion/Palpation: abdomen soft; abdomen nontender Musculoskeletal: No acute arthritis involving any of the joints Neurologic: normal touch/pain/proprioception and moves all extremities; no focal motor deficits Lymphatic: no cervical or axillary lymphadenopathy Results & Data Results & Data Vital Signs (Past 12 Hours) Vital Signs Temp Pulse Pulse Resp BP BP Pulse Ox 03/15/24 16:29 36.6 C 77 18 174/83 H 95 03/15/24 16:24 79 03/15/24 12:05 160/98 H 162/90 H 03/15/24 11:48 36.5 C 84 20 94 03/15/24 11:18 183/91 H 03/15/24 10:16 216/102 H 03/15/24 08:40 36.6 C 72 18 202/100 H 207/99 H 97 03/15/24 08:00 73 O2 Del Method 03/15/24 16:29 Room Air 03/15/24 16:24 03/15/24 12:05 03/15/24 11:48 Room Air 03/15/24 11:18 03/15/24 10:16 03/15/24 08:40 Room Air 03/15/24 08:00 Laboratory Results Short CBC 03/14/24 03/15/24 Range/Units 17:58 05:35 WBC 8.18 7.43 (4.8-10.8) K/ul Hgb 14.2 13.7 L (14.0-18.0) g/dl Hct 41.7 L 40.1 L (42.0-52.0) % Plt Count 229 193 (130-400) K/uL [facility] 03/14/24 03/15/24 17:58 05:35 Sodium 127 L 134 L Potassium 3.7 4.4 Chloride 92 L 102 Carbon Dioxide 25 24 BUN 8 7 Creatinine 0.98 0.91 Glucose 125 H 113 H Calcium 9.6 9.2 Liver Function 03/14/24 Range/Units 17:58 Total Bilirubin 0.4 (0.2-1.0) mg/dl AST 48 H (13-39) U/L ALT 46 (7-52) U/L Alkaline Phosphatase 69 (34-104) U/L Albumin 4.6 (3.4-5.0) gm/dl Urine 03/14/24 Range/Units 18:15 Urine Color Yellow Urine Appearance Clear (Clear) Urine pH 6.0 (4.5-7.5) Ur Specific [place] 1.007 (1.000-1.030) Urine Protein Negative (Negative) Urine Glucose (UA) Negative (Negative) Medications Administered Current Inpatient Medications Acetaminophen (Acetaminophen 325 Mg Tab) 650 mg PO Q4H PRN PRN Reason: Pain or Fever Stop: 04/13/24 23:03 Hydrocodone Bitart/Acetaminophen (Hydrocodone/Acetamophen 5/325mg Tab) 1 tab PO TID PRN PRN Reason: Pain Stop: 03/28/24 23:03 Albuterol (Albuterol Hfa 8 Gm Inhaler) 2 puffs INH Q4 PRN PRN Reason: Wheezing Stop: 04/13/24 23:03 Amlodipine Besylate (Amlodipine Besylate 5 Mg Tab) 5 mg PO BID [facility] Stop: 04/14/24 10:29 Last Admin: 03/15/24 11:18 Dose: 5 mg Aspirin (Aspirin 81 Mg Ectab) 81 mg PO QAM [facility] Stop: 04/14/24 08:59 Last Admin: 03/15/24 08:48 Dose: 81 mg Clopidogrel Bisulfate (Clopidogrel Bisulfate 75 Mg Tab) 75 mg PO QAM [facility] Stop: 04/14/24 08:59 Last Admin: 03/15/24 08:48 Dose: 75 mg Duloxetine HCl (Duloxetine Hcl 30 Mg Cap) 30 mg PO BID [facility] Stop: 04/13/24 23:14 Last Admin: 03/15/24 08:47 Dose: 30 mg Finasteride (Finasteride 5 Mg Tab) 5 mg PO QAM [facility] Stop: 04/14/24 08:59 Last Admin: 03/15/24 08:48 Dose: 5 mg Gabapentin (Gabapentin 600 Mg Tab) 600 mg PO Q8H [facility] Stop: 03/16/24 09:01 Last Admin: 03/15/24 16:30 Dose: 600 mg Gabapentin (Gabapentin 600 Mg Tab) 600 mg PO Q12H [facility] Stop: 03/17/24 09:01 Gabapentin (Gabapentin 600 Mg Tab) 600 mg PO Q24H [facility] Stop: 03/18/24 09:01 Sodium Chloride (Nss) 1,000 mls @ 50 mls/hr IV .Q20H [facility] Stop: 04/14/24 01:29 Last Admin: 03/15/24 01:38 Dose: 50 mls/hr Lorazepam 1 mg/ Syringe 1 mls @ 2 mls/min IV UD PRN; Protocol PRN Reason: EtOH Withdrawal AWSS Score 6,7 Stop: 04/13/24 23:03 Lorazepam 2 mg/ Syringe 2 mls @ 2 mls/min IV UD PRN; Protocol PRN Reason: EtOH Withdrawal AWSS Score 8,9 Stop: 04/13/24 23:03 Lorazepam 3 mg/ Syringe 3 mls @ 2 mls/min IV ONCE PRN; Protocol PRN Reason: EtOH Withdrawal AWSS Score 10+ Isosorbide Mononitrate (Isosorbide [place] Extended Rel 60 Mg Tabcr) [facility] [place] Stop: 04/14/24 08:59 Last Admin: 03/15/24 08:48 Dose: 60 mg Levetiracetam (Levetiracetam 500 Mg Tab) 500 mg PO BID [facility] Stop: 04/13/24 23:03 Last Admin: 03/15/24 08:47 Dose: 500 mg Metoprolol Succinate (Metoprolol Succ 25mg Ext Rel Tab) 25 mg PO BID [facility] Stop: 04/14/24 20:59 Nitroglycerin (Nitroglycerin Sl 0.4 Mg/Tab Tab) 0.4 mg SL Q5M PRN PRN Reason: Chest Pain Stop: 04/13/24 23:03 Ondansetron HCl (Ondansetron Inj 2 Mg/Ml 2 Ml Vial) 4 mg IV Q6H PRN PRN Reason: Nausea Stop: 04/13/24 23:03 Pantoprazole Sodium (Pantoprazole 40 Mg Tab) 40 mg PO Q2D [facility] Stop: 04/14/24 08:59 Last Admin: 03/15/24 08:48 Dose: 40 mg Polyethylene Glycol (Polyethylene (Miralax) 17 Gm Pack) 17 gm PO DAILY PRN PRN Reason: Constipation Stop: 04/13/24 23:03 Tamsulosin HCl (Tamsulosin Hcl 0.4 Mg Cap) 0.4 mg PO Q2D [facility] Stop: 04/14/24 08:59 Last Admin: 03/15/24 08:48 Dose: 0.4 mg Thiamine HCl (Thiamine Hcl 100 Mg Tab) 100 mg PO [facility] Stop: 04/14/24 08:59 Last Admin: 03/15/24 08:48 Dose: 100 mg Vitamin D (Cholecalciferol 25 Mcg (1000 Units) Tab) [facility]cg [facility] [place] Stop: 04/14/24 08:59 Last Admin: 03/15/24 08:48 Dose: 50 mcg (1) Chest pain Chest pain type: unspecified Qualified Code(s): R07.9 - Chest pain, unspecified (4) CAD (coronary artery disease) Coronary Disease-Associated Artery/Lesion type: [place] artery [place] vs. transplanted heart: [place] heart Associated angina: without angina Qualified Code(s): I25.10 - Atherosclerotic heart disease of [place] coronary artery without angina pectoris
[2024-03-15] MEDS ORDERED: amLODIPine BESYLATE 5 MG TAB PO SCH (21:00)
[2024-03-16 06:12] LABS: Basophils % (auto) 1.3 %; Eosinophils # (auto) 0.11 K/uL (0.00-0.50); Eosinophils % (auto) 1.4 %; Hematocrit (blood only) 44.2 % (42.0-52.0); Hemoglobin 14.5 g/dl (14.0-18.0); Immature Granulocytes # (auto) 0.03 K/uL (0.01-0.20); Immature Granulocytes % (auto) 0.4 %; Lymphocytes # (auto) 1.98 K/uL (1.20-3.40); Lymphocytes % (auto) 25.5 %; Mean Corpuscular Hemoglobin 31.9 pg (25.0-34.0); Mean Corpuscular Hgb Conc 32.8 g/dL (32.0-36.0); Mean Corpuscular Volume 97.4 fL (80.0-100.0); Mean Platelet Volume 8.5 fL (9.4-12.4); Monocytes # (auto) 0.56 K/uL (0.11-0.59); Monocytes % (auto) 7.2 %; Neutrophils # (auto) 4.97 K/uL (1.40-6.50); Neutrophils % (auto) 64.2 %; Platelet Count 229 K/uL (130-400); RDW Coefficient of Variation 12.2 % (11.5-14.5); RDW Standard Deviation 43.8 fL (36.4-46.3); Red Blood Count 4.54 M/uL (4.70-6.10); White Blood Count 7.75 K/ul (4.8-10.8)
[2024-03-16 06:30] LABS: Albumin Globulin Ratio 1.4 (0.9-2); Albumin Level 4.5 gm/dl (3.4-5.0); BUN Creatinine Ratio 9.9 (10-20); Bilirubin,Total 0.6 mg/dl (0.2-1.0); Calcium 9.9 mg/dl (8.6-10.3); Creatinine Clr Calc Pharmacy 75.6 ml/min; Est GFR (African American) 78.1 ml/min; Est GFR (Non-African American) 67.4 ml/min; Globulin 3.2 gm/dl (2.5-4.0); Magnesium 2.2 mg/dl (1.7-2.4); Phosphorus 3.8 mg/dl (2.5-4.9); Potassium 4.2 mmol/L (3.5-5.1); Total Protein 7.7 gm/dl (6.0-8.3)
[2024-03-16 08:10] VITALS: O2SAT 96
[2024-03-16 10:50] VITALS: PULSE 71; RESP 17; TEMP 98.2
--- NOTE | 2024-03-16 11:44 | Cardiology Progress Note ---
Date of Service March 16, 2024 Assessment & Plan (1) Chest pain: (2) Acute hyponatremia: (3) Uncontrolled hypertension: (4) CAD (coronary artery disease): Plan 03/15/24 Patient admitted with atypical chest pain, hypertension. HS troponin negative x4 since admission. No acute ischemic EKG changes. Echo with normal LVEF, no wall motion abnormalities. He has a history of complex coronary artery disease for which medical management was recommended due to complications with prior cath (aortic dissection/CVA). BP remains significantly elevated this morning. Possible alcohol withdrawal also contributing. At this time, would recommend further titration of his antihypertensive regimen. Increase amlodipine to 5 mg BID. Consider increasing metoprolol dose Continue isosorbide 60 mg. Continue ASA, plavix and patient takes PCSK9 inhib as outpatient. statin intolerant. Treatment of alcohol withdrawal recommended. Consider inpatient/outpatient rehab. Hyponatremia noted on admission, improved this morning. 03/16/24: No recurrent chest pain since admission. BP continues to improve. Metoprolol increased to 25 mg BID Amlodipine increased to 5 mg BID Continue isosorbide 60 mg. Avoid diuretic given issues with hyponatremia. If needed could restart lisinopril or losartan in the future. He was previously on lisinopril/hctz combination but stopped due to orthostasis several years ago. He has a long history of symptomatic orthostatic hypotension, labile BP r eadings. If BP acceptable after morning meds, would not recommend further changes during this admission. PCP or cardio f/u in 2 weeks to recheck BP. Anticipate discharge later today. No further cardiac testing warranted. Will sign off. Please notify information systems architect cardiology provider if there are additional questions or concerns. Case discussed with Dr. Carr I spent a total of 30 minutes on the date of service in preparation, delivery, and documentation of the care provided to this patient, excluding any time spent in the performance of separately billed services. Alicia Pulido PA-C Department of Cardiology, [facility] This chart was completed in part utilizing Speech Voice Recognition Software. Grammatical errors, random word insertions, pronoun errors, and incomplete sentences are an occasional consequence of this system due to software limitations, ambient noise, and hardware issues. Any formal questions or concerns about the content, text, or information contained within the body of this dictation should be directly addressed to the provider for clarification. Admission and Anticipated Discharge Date Admission Date: March 14, 2024 Supervising Physician Co-Signing Physician Notes Attending physician attestation. I have personally performed a history and physical examination on the patient. I have reviewed the advance practitioner's documentation, and I agree with, and take responsibility for the plan of care. 68-year-old male admitted with atypical chest discomfort. No evidence of acute coronary syndrome. Pain-free since admission. Blood pressure improving with treatment of alcohol withdrawal. Notable history of hypotensive episodes at home. Telemetry feels sinus rhythm in the 70s. Management of alcohol withdrawal as per internal medicine. Amlodipine titrated to 5 mg twice daily. Toprol XL titrated to 25mg BID. Continue aspirin, clopidogrel, and Imdur as ordered. Cardiology will sign off. Please call with additional concerns/questions. I spent a total of 30 minutes on the date of service in preparation, delivery, and documentation of the care provided to this patient, excluding any time spent in the performance of separately billed services. Tomas Carr DO, [facility] Subjective Patient resting in bed. Feeling well. Voices no acute complaints. No recurrent chest pain. No dyspnea. No dizziness or lightheadedness. BP has improved from yesterday. Review of Systems Review of Systems: All systems reviewed & are unremarkable except as noted in HPI & below Physical Exam Constitutional: WD/WN, vitals as above average body habitus; no acute distress Neck: normal visual inspection Respiratory: normal respiratory effort Auscultation: + diminished lung sounds; no rales and no rhonchi Cardiovascular: Rate/Rhythm: regular rate and regular rhythm Heart Sounds: normal S1 and normal S2; no murmur Vessels: no JVD Extremities: no edema Gastrointestinal (Abdomen): normal bowel sounds, soft, nontender, no hepatosplenomegaly Skin: no rashes, warm and dry Neurologic: PERRL, EOMI, accommodation nl, no face palsy, no dysarthria Psychiatric: A+Ox3, euthymic affect Results & Data Vital Signs (Past 12 Hours) Vital Signs Temp Pulse Pulse Resp BP Pulse Ox O2 Del Method 03/16/24 10:53 158/76 H 03/16/24 10:49 36.8 C 71 17 173/93 H 96 Room Air 03/16/24 08:09 37.1 C 83 19 168/78 H 96 Room Air 03/16/24 07:35 70 03/16/24 03:43 36.6 C 69 18 147/74 H 95 Room Air Laboratory Results Cardiac Enzymes 03/15/24 03/16/24 Range/Units 17:32 05:30 AST 55 H (13-39) U/L Troponin I High Sens 5.3 (0-20) pg/ml CBC 03/16/24 Range/Units 05:30 WBC 7.75 (4.8-10.8) K/ul RBC 4.54 L (4.70-6.10) M/uL Hgb 14.5 (14.0-18.0) g/dl Hct 44.2 (42.0-52.0) % Plt Count 229 (130-400) K/uL Neut # (Auto) 4.97 (1.40-6.50) K/uL Lymph # (Auto) 1.98 (1.20-3.40) K/uL [place] # (Auto) 0.56 (0.11-0.59) K/uL Eos # (Auto) 0.11 (0.00-0.50) K/uL Baso # (Auto) 0.10 (0.00-0.20) K/uL Comprehensive Metabolic Panel 03/16/24 Range/Units 05:30 Sodium 136 (136-145) mmol/L Potassium 4.2 (3.5-5.1) mmol/L Chloride 100 (98-107) mmol/L Carbon Dioxide 29 (21-32) mmol/L BUN 11 (6-23) mg/dl Creatinine 1.11 (0.6-1.4) mg/dl Glucose 115 H (70-99(Fasting)) mg/dl Calcium 9.9 (8.6-10.3) mg/dl AST 55 H (13-39) U/L ALT 46 (7-52) U/L Alkaline Phosphatase 67 (34-104) U/L Total Protein 7.7 (6.0-8.3) gm/dl Albumin 4.5 (3.4-5.0) gm/dl Intake and Output 03/15/24 03/16/24 03/16/24 22:59 06:59 14:59 Intake Total 1277.5 / 1477.5 200 / 1477.5 660 / 660 Output Total 400 / 400 Balance 877.5 / 1077.5 200 / 1077.5 660 / 660 Intake: IV 927.5 / 927.5 660 / 660 Sodium Chloride 0.9% 1,000 ml @ 927.5 / 927.5 660 / 660 50 mls/hr IV .Q20H [facility] Rx#: [id number] Oral 350 / 550 200 / 550 Output: Urine 400 / 400 Other: Other Intake Source NPO # Unmeasured Voids 1 Weight 99.9 kg Weight Measurement Method Built in [facility] Diagnostic Findings Telemetry reviewed: NSR 70-80's EKG today - NSR, non specific ST wave abnormality. No change from previous echo reviewed from 03/15/24: Normal LVEF at 60-65%, no wall motion abnormalities Mild LVH Grade I diastolic dysfunction Mild AI Medications Administered Current Inpatient Medications Acetaminophen (Acetaminophen 325 Mg Tab) 650 mg PO Q4H PRN PRN Reason: Pain or Fever Stop: 04/13/24 23:03 Hydrocodone Bitart/Acetaminophen (Hydrocodone/Acetamophen 5/325mg Tab) 1 tab PO TID PRN PRN Reason: Pain Stop: 03/28/24 23:03 Albuterol (Albuterol Hfa 8 Gm Inhaler) 2 puffs INH Q4 PRN PRN Reason: Wheezing Stop: 04/13/24 23:03 Amlodipine Besylate (Amlodipine Besylate 5 Mg Tab) 5 mg PO BID [facility] Stop: 04/14/24 10:29 Last Admin: 03/16/24 08:38 Dose: 5 mg Aspirin (Aspirin 81 Mg Ectab) [facility] Stop: 04/14/24 08:59 Last Admin: 03/16/24 08:35 Dose: 81 mg Clopidogrel Bisulfate (Clopidogrel Bisulfate 75 Mg Tab) 75 mg PO QAM [facility] Stop: 04/14/24 08:59 Last Admin: 03/16/24 08:36 Dose: 75 mg Duloxetine HCl (Duloxetine Hcl 30 Mg Cap) 30 mg PO BID [facility] Stop: 04/13/24 23:14 Last Admin: 03/16/24 08:36 Dose: 30 mg Finasteride (Finasteride 5 Mg Tab) 5 mg PO QAM [facility] Stop: 04/14/24 08:59 Last Admin: 03/16/24 08:36 Dose: 5 mg Gabapentin (Gabapentin 600 Mg Tab) 600 mg PO Q12H [facility] Stop: 03/17/24 09:01 Gabapentin (Gabapentin 600 Mg Tab) 600 mg PO Q24H [facility] Stop: 03/18/24 09:01 Lorazepam 1 mg/ Syringe 1 mls @ 2 mls/min IV UD PRN; Protocol PRN Reason: EtOH Withdrawal AWSS Score 6,7 Stop: 04/13/24 23:03 Lorazepam 2 mg/ Syringe 2 mls @ 2 mls/min IV UD PRN; Protocol PRN Reason: EtOH Withdrawal AWSS Score 8,9 Stop: 04/13/24 23:03 Lorazepam 3 mg/ Syringe 3 mls @ 2 mls/min IV ONCE PRN; Protocol PRN Reason: EtOH Withdrawal AWSS Score 10+ Isosorbide Mononitrate (Isosorbide [place] Extended Rel 60 Mg Tabcr) 60 mg PO QAM [facility] Stop: 04/14/24 08:59 Last Admin: 03/16/24 08:37 Dose: 60 mg Levetiracetam (Levetiracetam 500 Mg Tab) 500 mg PO BID [facility] Stop: 04/13/24 23:03 Last Admin: 03/16/24 08:37 Dose: 500 mg Metoprolol Succinate (Metoprolol Succ 25mg Ext Rel Tab) 25 mg PO BID [facility] Stop: 04/14/24 20:59 Last Admin: 03/16/24 08:37 Dose: 25 mg Nitroglycerin (Nitroglycerin Sl 0.4 Mg/Tab Tab) 0.4 mg SL Q5M PRN PRN Reason: Chest Pain Stop: 04/13/24 23:03 Ondansetron HCl (Ondansetron Inj 2 Mg/Ml 2 Ml Vial) 4 mg IV Q6H PRN PRN Reason: Nausea Stop: 04/13/24 23:03 Pantoprazole Sodium (Pantoprazole 40 Mg Tab) 40 mg PO Q2D [facility] Stop: 04/14/24 08:59 Last Admin: 03/15/24 08:48 Dose: 40 mg Polyethylene Glycol (Polyethylene (Miralax) 17 Gm Pack) 17 gm PO DAILY PRN PRN Reason: Constipation Stop: 04/13/24 23:03 Tamsulosin HCl (Tamsulosin Hcl 0.4 Mg Cap) 0.4 mg PO Q2D [facility] Stop: 04/14/24 08:59 Last Admin: 03/15/24 08:48 Dose: 0.4 mg Thiamine HCl (Thiamine Hcl 100 Mg Tab) 100 mg PO QAM [facility] Stop: 04/14/24 08:59 Last Admin: 03/16/24 08:38 Dose: 100 mg Vitamin D (Cholecalciferol 25 Mcg (1000 Units) Tab) 50 mcg PO QAM [facility] Stop: 04/14/24 08:59 Last Admin: 03/16/24 08:36 Dose: 50 mcg (1) Chest pain Chest pain type: unspecified Qualified Code(s): R07.9 - Chest pain, unspecified (4) CAD (coronary artery disease) Associated angina: without angina Coronary Disease-Associated Artery/Lesion type: [place] artery [place] vs. transplanted heart: [place] heart Qualified Code(s): I25.10 - Atherosclerotic heart disease of [place] coronary artery without angina pectoris
--- NOTE | 2024-03-16 13:17 | Hospitalist Progress Note ---
Date of Service March 16, 2024 Assessment & Plan (1) Chest pain: Plan: 68-year-old male with past medical history significant for type 2 diabetes, hyperlipidemia, diabetic peripheral angiopathy, COPD, internal carotid artery occlusion, thoracic aortic dissection, history of CVA, hypertension, CAD s/p stent, history of bradycardia, vitamin D deficiency, urinary retention, BPH, chronic bilateral low back pain, lumbar spondylosis, Grassman syndrome, classic migraine, history of seizures, depression ongoing tobacco use and alcohol use comes with chest pains. Patient states around 3 PM while he was resting he noticed left-sided chest pain radiating to left shoulder associated with nausea, sweating and shortness of breath and pain was very severe. EMS was called and en route was given aspirin. By time he came to the ER the pain got resolved. The pain lasted for about couple of hours. And he is having this pain on and off for last couple of days. And he took nitro last couple of days but did not take today. As per since Thursday is somewhat wobbly while walking. Patient currently has a migraine headache. States his right eye vision is always blurry. No runny nose. Some cough. Currently no chest pain or shortness of breath. Complains of mild abdominal pain. Normal bowel and bladder movements. Appetite is okay. But states he chokes on food a lot. Still smoking 1 pack of cigarettes daily and drinking 6 beers daily. Currently hemodynamics are okay.Patient fell a couple of days ago and has bruise on his right lower [place] region. Chest pain H/0 CAD s/p stent Chronic RCA occlusion attempted S[employer]ER PCI which was partially successful, plain balloon angioplasty performed but stent could not be accommodated and postprocedure had CVA Chest pain likely due to uncontrolled hypertension --Troponin negative --ECHO: Mild concentric LVH. EF 60 to 65%. Grade 1 diastolic dysfunction. Mild aortic regurgitation. No wall motion abnormality Metoprolol increased to 25 mg twice a day Amlodipine increased to 5 mg twice a day Continue isosorbide Avoid diuretic due to hyponatremia Appreciate cardiology input Cautious use of antihypertensives given history of orthostasis for many years Needs follow-up with cardiology on discharge Chronic hyponatremia Likely secondary to ongoing alcohol abuse Sodium improved to 136 Monitor Alcoholism Currently not interested to quit alcohol use Continue thiamine, folic acid On gabapentin protocol No signs of withdrawal currently Counseled to minimize/quit alcohol use History of embolic CVA On aspirin Plavix and Repatha Ambulatory dysfunction PT OT: Recommends to return home Questionable aspiration Speech evaluation CTA: Normal History of carotid artery disease with right carotid stent Left internal carotid artery occlusion On aspirin and Plavix and Repatha Hyperlipidemia Intolerance to statins and gemfibrozil and fenofibrate Currently on Repatha BPH On Flomax and finasteride monitor Tobacco abuse Needs counseling Elevated D-dimer CTA was negative for any pulmonary embolism History of seizures disorder On Keppra Chronic pain Continue home pain medications Depression On Cymbalta DVT prophylaxis SCDs CODE STATUS Full code. Disposition Home (2) Uncontrolled hypertension: (3) Demand ischemia: (4) CAD (coronary artery disease): (5) Acute hyponatremia: Admission and Anticipated Discharge Date Admission Date: March 14, 2024 Subjective Patient is seen and examined at bedside States feeling well today Offers no new complaints Discussed with cardiology today Denies any chest pain, dyspnea, nausea, vomiting, abdominal pain Plan to discharge home today Review of Systems Review of Systems: All systems reviewed & are unremarkable except as noted in Subjective Physical Exam Physical Exam: Physical Exam: Vitals signs as noted above General Appearance:Obese, no apparent distress Head: normocephalic, Atraumatic Eyes: normal inspection, EOMI Neck: supple, Trachea midline Respiratory/Chest: Decreased breath sounds, CTA, No accessory muscle use Cardiovascular: S1, S2, No murmur Abdomen/GI:Soft, Non tender, Bowel sounds present Extremities/Musculoskeletal:normal inspection, no edema Neurologic/Psych:AAOX3, grossly no focal neurological deficits Skin: normal color, warm Results & Data Results & Data Vital Signs (Past 12 Hours) Vital Signs Temp Pulse Pulse Resp BP Pulse Ox O2 Del Method 03/16/24 10:53 158/76 H 03/16/24 10:49 36.8 C 71 17 173/93 H 96 Room Air 03/16/24 08:09 37.1 C 83 19 168/78 H 96 Room Air 03/16/24 07:35 70 03/16/24 03:43 36.6 C 69 18 147/74 H 95 Room Air Laboratory Results Short CBC 03/16/24 Range/Units 05:30 WBC 7.75 (4.8-10.8) K/ul Hgb 14.5 (14.0-18.0) g/dl Hct 44.2 (42.0-52.0) % Plt Count 229 (130-400) K/uL BMP 03/16/24 05:30 Sodium 136 Potassium 4.2 Chloride 100 Carbon Dioxide 29 BUN 11 Creatinine 1.11 Glucose 115 H Calcium 9.9 Liver Function 03/16/24 Range/Units 05:30 Total Bilirubin 0.6 (0.2-1.0) mg/dl AST 55 H (13-39) U/L ALT 46 (7-52) U/L Alkaline Phosphatase 67 (34-104) U/L Albumin 4.5 (3.4-5.0) gm/dl (1) Chest pain Chest pain type: unspecified Qualified Code(s): R07.9 - Chest pain, unspecified (4) CAD (coronary artery disease) Coronary Disease-Associated Artery/Lesion type: tribal artery [place] vs. transplanted heart: tribal heart Associated angina: without angina Qualified Code(s): I25.10 - Atherosclerotic heart disease of tribal coronary artery without angina pectoris
--- NOTE | 2024-03-16 13:23 | Discharge Summary ---
Date of Service March 16, 2024 Admission HPI Per Admitting Provider 68-year-old male with past medical history significant for type 2 diabetes, hyperlipidemia, diabetic peripheral angiopathy, COPD, internal carotid artery occlusion, thoracic aortic dissection, history of CVA, hypertension, CAD s/p stent, history of bradycardia, vitamin D deficiency, urinary retention, BPH, chronic bilateral low back pain, lumbar spondylosis, Grassman syndrome, classic migraine, history of seizures, depression ongoing tobacco use and alcohol use comes with chest pains. Patient states around 3 PM while he was resting he noticed left-sided chest pain radiating to left shoulder associated with nausea, sweating and shortness of breath and pain was very severe. EMS was called and en route was given aspirin. By time he came to the ER the pain got resolved. The pain lasted for about couple of hours. And he is having this pain on and off for last couple of days. And he took nitro last couple of days but did not take today. As per since Thursday is somewhat wobbly while walking. Patient currently has a migraine headache. States his right eye vision is always blurry. No runny nose. Some cough. Currently no chest pain or shortness of breath. Complains of mild abdominal pain. Normal bowel and bladder movements. Appetite is okay. But states he chokes on food a lot. Still smoking 1 pack of cigarettes daily and drinking 6 beers daily. Currently hemodynamics are okay.Patient fell a couple of days ago and has bruise on his right lower [place] region. Past medical history. As mentioned above Past surgical history. Cardiac cath. S/p cardiac stent. Colonoscopy. Left lateral elbow ligament repair. Right rotator cuff repair. Left rotator cuff repair. Bilateral hip replacement. Prostate laser vaporization. Tonsillectomy. Right carotid stent. Social history. . Smokes 1 pack a day for last 40 years. Drinks 6-7 beers daily. No drug use. Family history. Father had arthritis. Cancer. Heart disorder. Mother had arthritis. CABG. Sister has asthma. Daughter has arthritis. Admission Exam Per Admitting Provider General- Not in distress Head- atraumatic Eyes- PERRL ENT- oropharynx clear Neck- supple, no JVD. Lungs- clear to auscultation no wheezing or crackles Heart- regular rhythm; no murmur, no gallop. Abdomen- normal bowel sounds, soft, mild diffuse discomfort., no distension Extremities- no pretibial edema, no erythema seen Neuro- alert, oriented PERRL, no facial palsy; no dysarthria; moves extremities Skin- Bruise seen on right lower [place] Principal Diagnosis Chest pain Hypertension Hyponatremia Alcohol use disorder Discharge Data Allergies Allergy/AdvReac Type Severity Reaction Status Date / Time ciprofloxacin Allergy Severe hives Verified 03/14/24 20:47 simvastatin AdvReac Intermediate MUSCLE Verified 03/14/24 20:47 PAIN/WEAKNESS Xrneqdp-YKQ-SgC Reductase AdvReac Intermediate MUSCLE Unverified 03/14/24 20:47 Inhibitor PAIN/WEAKNESS [Qjwooyk-Cap-Vzx Reductase Inhibitor] Consultations 03/14/24 19:50 ED Decision to Admit Stat 03/15/24 08:00 Consult Cardiology Routine Procedures Performed Laboratory Results WBC 7.75 K/ul (4.8-10.8) 03/16/24 05:30 RBC 4.54 M/uL (4.70-6.10) L 03/16/24 05:30 Hgb 14.5 g/dl (14.0-18.0) 03/16/24 05:30 Hct 44.2 % (42.0-52.0) 03/16/24 05:30 MCV 97.4 fL (80.0-100.0) 03/16/24 05:30 MCH 31.9 pg (25.0-34.0) 03/16/24 05:30 MCHC 32.8 g/dL (32.0-36.0) 03/16/24 05:30 RDW Std Deviation 43.8 fL (36.4-46.3) 03/16/24 05:30 RDW Coeff of [place] 12.2 % (11.5-14.5) 03/16/24 05:30 Plt Count 229 K/uL (130-400) 03/16/24 05:30 MPV 8.5 fL (9.4-12.4) L 03/16/24 05:30 Immature Gran % (Auto) 0.4 % 03/16/24 05:30 Neut % (Auto) 64.2 % 03/16/24 05:30 Lymph % (Auto) 25.5 % 03/16/24 05:30 [place] % (Auto) 7.2 % 03/16/24 05:30 Eos % (Auto) 1.4 % 03/16/24 05:30 Baso % (Auto) 1.3 % 03/16/24 05:30 Neut # (Auto) 4.97 K/uL (1.40-6.50) 03/16/24 05:30 Lymph # (Auto) 1.98 K/uL (1.20-3.40) 03/16/24 05:30 [place] # (Auto) 0.56 K/uL (0.11-0.59) 03/16/24 05:30 Eos # (Auto) 0.11 K/uL (0.00-0.50) 03/16/24 05:30 Baso # (Auto) 0.10 K/uL (0.00-0.20) 03/16/24 05:30 Immature Gran # (Auto) 0.03 K/uL (0.01-0.20) 03/16/24 05:30 PT 10.4 Seconds (9.0-12.0) 03/14/24 17:58 INR 1.0 (0.9-1.1) 03/14/24 17:58 APTT 26 Seconds (21-31) 03/14/24 17:58 PTT Ratio 1.0 03/14/24 17:58 D-Dimer 1530 ug/L FEU (0-500) H* 03/14/24 20:55 Sodium 136 mmol/L (136-145) 03/16/24 05:30 Potassium 4.2 mmol/L (3.5-5.1) 03/16/24 05:30 Chloride 100 mmol/L (98-107) 03/16/24 05:30 Carbon Dioxide 29 mmol/L (21-32) 03/16/24 05:30 Anion Gap 7 (3-11) 03/16/24 05:30 BUN 11 mg/dl (6-23) 03/16/24 05:30 Creatinine 1.11 mg/dl (0.6-1.4) 03/16/24 05:30 Est Cr Clr Drug Dosing 75.6 ml/min 03/16/24 05:30 Est GFR ( Amer) 78.1 ml/min 03/16/24 05:30 Est GFR (Non-Af Amer) 67.4 ml/min 03/16/24 05:30 BUN/Creatinine Ratio 9.9 (10-20) L 03/16/24 05:30 Glucose 115 mg/dl (70-99(Fasting)) H 03/16/24 05:30 Osmolality 280 mOsm/kg (280-300) 03/15/24 05:35 Calcium 9.9 mg/dl (8.6-10.3) 03/16/24 05:30 Phosphorus 3.8 mg/dl (2.5-4.9) 03/16/24 05:30 Magnesium 2.2 mg/dl (1.7-2.4) 03/16/24 05:30 Total Bilirubin 0.6 mg/dl (0.2-1.0) 03/16/24 05:30 AST 55 U/L (13-39) H 03/16/24 05:30 ALT 46 U/L (7-52) 03/16/24 05:30 Alkaline Phosphatase 67 U/L (34-104) 03/16/24 05:30 Troponin I High Sens 5.3 pg/ml (0-20) 03/15/24 17:32 Total Protein 7.7 gm/dl (6.0-8.3) 03/16/24 05:30 Albumin 4.5 gm/dl (3.4-5.0) 03/16/24 05:30 Globulin 3.2 gm/dl (2.5-4.0) 03/16/24 05:30 Albumin/Globulin Ratio 1.4 (0.9-2) 03/16/24 05:30 Lipase 31 U/L (11-82) 03/14/24 17:58 Vitamin B12 428 pg/ml (180-914) 03/15/24 05:35 Folate > 22.30 ng/ml (>5.38) 03/15/24 05:35 Urine Color Yellow 03/14/24 18:15 Urine Appearance Clear (Clear) 03/14/24 18:15 Urine pH 6.0 (4.5-7.5) 03/14/24 18:15 Ur Specific [place] 1.007 (1.000-1.030) 03/14/24 18:15 Urine Protein Negative (Negative) 03/14/24 18:15 Urine Glucose (UA) Negative (Negative) 03/14/24 18:15 Urine Ketones Negative (Negative) 03/14/24 18:15 Urine Blood Negative (Negative) 03/14/24 18:15 Urine Nitrite Negative (Negative) 03/14/24 18:15 Urine Bilirubin Negative (Negative) 03/14/24 18:15 Urine Urobilinogen Negative (Negative) 03/14/24 18:15 Ur Leukocyte Esterase 1+ (Negative) H 03/14/24 18:15 Urine WBC (Auto) 6-10 /hpf (0-5) H 03/14/24 18:15 Urine RBC (Auto) 0-2 /hpf (0-2) 03/14/24 18:15 U Hyaline Cast (Auto) 0-2 /lpf (0-2) 03/14/24 18:15 U Epithel Cells (Auto) 0-2 /hpf (0-2) 03/14/24 18:15 Urine Bacteria (Auto) None Seen (None Seen) 03/14/24 18:15 Urine Osmolality 367 mOsm/kg (500-800) L 03/15/24 Unknown Ur Random Sodium 63 mmol/L 03/15/24 Unknown Impressions Chest X-Ray 03/14/24 18:11 XR chest 1V portable HISTORY: 68 years-old Male Chest pain, nonspecific COMPARISON: 12/25/2023 TECHNIQUE: AP view of the chest FINDINGS: Cardiomediastinal and hilar silhouettes are within normal limits. Lungs are clear. No pneumothorax or pleural effusion. Healed chronic right distal clavicular and rib fractures.. IMPRESSION: No acute process. ACT 112: Negative or not required by law. The above report was generated using voice recognition software. It may contain grammatical, syntax or spelling errors. Electronically signed by: Cristobal Morales M.D. 03/14/2024 6:35 PM Chest CTA 03/14/24 21:49 Exam(s): CTA CHEST IV Amt: 119 ml optiray 320 EXAM: CT Angiography Chest With Intravenous Contrast CLINICAL HISTORY: Reason for exam: PE. TECHNIQUE: Axial computed tomographic angiography images of the chest with intravenous contrast. Automated exposure control was utilized for the study. A dose lowering technique was utilized adhering to the principles of ALARA. MIP reconstructed images were created and reviewed. COMPARISON: No relevant prior studies available. FINDINGS: Pulmonary arteries: Unremarkable. No acute pulmonary embolism. Aorta: Atherosclerotic changes of the aorta. No thoracic aortic aneurysm. Lungs: Unremarkable. No mass. No consolidation. Pleural space: Unremarkable. No significant effusion. No pneumothorax. Heart: Unremarkable. No cardiomegaly. No significant pericardial effusion. No evidence of RV dysfunction. Bones/joints: Degenerative changes of the spine. No acute fracture. No dislocation. Soft tissues: Unremarkable. Lymph nodes: Unremarkable. No enlarged lymph nodes. Liver: Hepatic steatosis. IMPRESSION: No acute pulmonary embolism. Electronically signed by: Magdaleno Buchanan MD 03/15/24 00:06 AM Ordered Studies 03/14/24 21:49 CT angio chest PE protocol Urgent Hospital Course (1) Chest pain: 68-year-old male with past medical history significant for type 2 diabetes, hyperlipidemia, diabetic peripheral angiopathy, COPD, internal carotid artery occlusion, thoracic aortic dissection, history of CVA, hypertension, CAD s/p stent, history of bradycardia, vitamin D deficiency, urinary retention, BPH, chronic bilateral low back pain, lumbar spondylosis, Grassman syndrome, classic migraine, history of seizures, depression ongoing tobacco use and alcohol use comes with chest pains. Patient states around 3 PM while he was resting he noticed left-sided chest pain radiating to left shoulder associated with nausea, sweating and shortness of breath and pain was very severe. EMS was called and en route was given aspirin. By time he came to the ER the pain got resolved. The pain lasted for about couple of hours. And he is having this pain on and off for last couple of days. And he took nitro last couple of days but did not take today. As per since Thursday is somewhat wobbly while walking. Patient currently has a migraine headache. States his right eye vision is always blurry. No runny nose. Some cough. Currently no chest pain or shortness of breath. Complains of mild abdominal pain. Normal bowel and bladder movements. Appetite is okay. But states he chokes on food a lot. Still smoking 1 pack of cigarettes daily and drinking 6 beers daily. Currently hemodynamics are okay.Patient fell a couple of days ago and has bruise on his right lower [place] region. Chest pain H/0 CAD s/p stent Chronic RCA occlusion attempted [employer] PCI which was partially successful, plain balloon angioplasty performed but stent could not be accommodated and postprocedure had CVA Chest pain likely due to uncontrolled hypertension --Troponin negative --ECHO: Mild concentric LVH. EF 60 to 65%. Grade 1 diastolic dysfunction. Mild aortic regurgitation. No wall motion abnormality Metoprolol increased to 25 mg twice a day Amlodipine increased to 5 mg twice a day Continue isosorbide Avoid diuretic due to hyponatremia Appreciate cardiology input Cautious use of antihypertensives given history of orthostasis for many years Needs follow-up with cardiology on discharge Chronic hyponatremia Likely secondary to ongoing alcohol abuse Sodium improved to 136 Monitor Alcoholism Currently not interested to quit alcohol use Continue thiamine, folic acid On gabapentin protocol No signs of withdrawal currently Counseled to minimize/quit alcohol use History of embolic CVA On aspirin Plavix and Repatha Ambulatory dysfunction PT OT: Recommends to return home Questionable aspiration Speech evaluation CTA: Normal History of carotid artery disease with right carotid stent Left internal carotid artery occlusion On aspirin and Plavix and Repatha Hyperlipidemia Intolerance to statins and gemfibrozil and fenofibrate Currently on Repatha BPH On Flomax and finasteride monitor Tobacco abuse Needs counseling Elevated D-dimer CTA was negative for any pulmonary embolism History of seizures disorder On Keppra Chronic pain Continue home pain medications Depression On Cymbalta DVT prophylaxis SCDs CODE STATUS Full code. Disposition Home (2) Uncontrolled hypertension: (3) Demand ischemia: (4) CAD (coronary artery disease): (5) Acute hyponatremia: Total Time Total Time Spent Total Time Spent (In Minutes): 54 minutes Discharge Plan Discharge Items Patient Disposition: Home - Self-Care Reason For Visit: CHEST PAIN, HYPONATREMIA, ALCOHOLISM Discharge Diagnosis: Chest pain Hypertension Hyponatremia Alcohol use disorder Activity: Per Instructions section Exercise/Sports: Gradually increase as tolerated Non-emergency contact: Primary Care Provider Call non-emergency contact if: you have any medication questions, your symptoms worsen, your pain is concerning for you and you have a fever Follow-up/Referrals: Terry Resendez MD [Primary Care Provider] - (Date & Time 03/21/2024 11:20 AM Provider Terry Resendez MD [facility] ) Diet: Heart Healthy Addtl Attending Provider Instructions: Follow-up with your primary care physician on 03/21/2024 11:20 AM Follow-up with your cyber security consultant Dr. Carr as advised --Quit drinking alcohol as advised Seek immediate medical attention if your symptoms reoccur or worsen Please take all medications as instructed on discharge list below. Please call if you have any questions or problems. You can reach a [facility] hospitalist on duty at [facility] 24 hours a day by calling [phone] Pending Studies at Discharge: No Stand-Alone Forms: My [facility], Smoking Cessation Medications and DC Order Prescriptions: Continued clopidogrel 75 mg Tablet 75 mg PO QAM Qty: 0 tamsulosin 0.4 mg Capsule 0.4 mg PO Q OTHER DAY Qty: 0 isosorbide mononitrate 60 mg Tablet Extended Release 24 Hr 60 mg PO QAM Qty: 0 nitroglycerin 0.4 mg Tablet, Sublingual 0.4 mg Sublingual DIRECTED PRN (Reason: Chest Pain) Qty: 0 Rx Instructions: PLACE ONE TABLET UNDER THE TONGUE EVERY 5 MINUTES FOR UP TO 3 DOSES OVER 15 MINUTES IF NEEDED FOR CHEST PAIN aspirin 81 mg Tablet,Delayed Release (Dr/Ec) 81 mg PO QAM hydrocodone-acetaminophen 5-325 mg Tablet 1 tab PO TID PRN (Reason: Pain) ondansetron HCl 4 mg tablet 4 mg PO Q6H PRN (Reason: Nausea) omeprazole 20 mg capsule,delayed release(DR/EC) 20 mg PO Q OTHER DAY finasteride 5 mg tablet 5 mg PO QAM duloxetine 30 mg capsule,delayed release(DR/EC) 30 mg PO AMPM albuterol sulfate 90 mcg/actuation HFA aerosol inhaler 2 puff INHALATION Q4 PRN (Reason: Wheezing) acetaminophen 500 mg Tablet 500 - 1,000 mg PO Q6 PRN (Reason: Pain) cholecalciferol (vitamin D3) [Vitamin D3] 50 mcg (2,000 unit) Capsule 50 mcg PO QAM levetiracetam [Keppra] 500 mg tablet 500 mg PO BID Qty: 60 0RF [place] 50 mg tablet 50 mg PO DIRECTED PRN (Reason: Migraine Headache) tramadol 50 mg tablet 50 mg PO Q6 PRN (Reason: Pain) thiamine HCl (vitamin B1) 100 mg Tablet 100 mg PO QAM Qty: 30 0RF Changed amlodipine 5 mg tablet 5 mg PO BID Qty: 60 1RF metoprolol succinate 25 mg Tablet Extended Release 24 Hr 25 mg PO BID Qty: 60 1RF Discharge Orders: Discharge Order (Routine); Ordered 03/16/24 Ordered By: Hilton Castro Admission Data Admit Date/Time: 03/14/24 20:46 Attending Provider: Hilton Castro Admit Provider: Shaan Guidry Primary Care Provider: Terry Resendez Other Providers: Shaan Guidry; Tomas Carr
[2024-03-16 13:40] VITALS: BP 162/90
--- NOTE | 2024-03-16 20:10 | Electrocardiogram Report ---
Test Reason : Blood Pressure : / mmHG Vent. Rate : 070 BPM Atrial Rate : 070 BPM P-R Int : 154 ms QRS Dur : 106 ms QT Int : 408 ms P-R-T Axes : 085 068 057 degrees QTc Int : 440 ms Normal sinus rhythm Nonspecific ST abnormality Abnormal ECG When compared with ECG of 15-MAR-2024 06:13, No significant change was found Confirmed by Gunnar Rivera ([id number]) on 03/16/2024 8:09:50 PM Referred By: REFERRED SELF Confirmed By:Gunnar Rivera
[2024-03-16] MEDS ORDERED: GABAPENTIN 600 MG TAB PO SCH (21:00)
[2024-03-18] MEDS ORDERED: GABAPENTIN 600 MG TAB PO SCH (09:00)
== END 2024-03-16 14:18 | disposition home or self-care (01) | DRG 313 ==
LOC: ED 18:09 → SUATTDRO 20:46 → 2E 20:46

== ENCOUNTER 2024-06-12 18:33 | Inpatient (IN) ==
--- OUTSIDE RECORDS SUMMARY | 2024-06-12 18:39 | External Medical Summary | Summary of Care ---
Author Name Unknown Organization [facility] Address [address] [place] [address] Phone [phone] Care Team Providers Care Doorkeeper Name Role Phone Sam Resendez MD Primary Care Provider Reason for Visit * Reason Onset Date Comments Medication Refill 05/02/2024 Encounter Details Date Type Department Care Team (Late st Contact Info) Description 05/02/2024 Refill [place] [address] [place] [address] Sam Resendez MD [address] [place] [address] Chronic bilateral low back pain with right-sided sciatica Allergies Active Allergy Reactions Criticality Noted Date Comments Ciprofloxacin Hives 09/01/2017 Statins 11/15/2020 All statins Simvastatin 05/07/2006 Severe myalgia's documented as of this encounter (statuses as of 05/06/2024) Medications Medication Sig Dispensed Refills Start Date End Date Status ASPIRIN EC 81 MG PO TBECIndications:Esther nary atherosclerosis of ramona coronary artery Take one pill daily 100 [...] Pain. As needed 30 Tab 8 Active Omeprazole 20 MG Oral Capsule Delayed Release (PriLOSEC) TAKE 1 CAPSULE BY MOUTH EVERY MORNING 90 Capsule 3 3 Active amLODIPine Besylate 5 MG Oral Tablet (Norvasc) Take 1 Tablet by mouth in the morning. 90 Tablet 3 3 Active Lasmiditan Succinate 50 MG Oral Tablet (Reyvow) Take one at onset of migraine. Max 1 dose in 24hours 10 Tablet 5 4 Active Isosorbide Mononitrate ER 60 MG Oral Tablet Extended Release 24 Hour (Imdur)Indications:E xertional angina (HCC) Take 1 Tablet by mouth in the morning. 90 Tablet 3 4 Active Clopidogrel Bisulfate 75 MG Oral [...] NEEDED FOR NAUSEA. 30 Tablet 4 Active Metoprolol Succinate ER 25 MG Oral Tablet Extended Release 24 Hour (toPROL XL)Indications:Coron johna artery disease with exertional angina (HCC),HTN, goal below 140/90 25mg daily in AM and 12.5mg daily at bedtime 135 Tablet 3 4 Active amLODIPine Besylate 2.5 MG Oral Tablet (Norvasc)Indications :HTN, goal below 140/90 Take 1 Tablet by mouth in the morning. 90 Tablet 3 4 Active Nitroglycerin 0.4 MG Sublingual Tablet Sublingual (Nitrostat)Indicatio ns:Coronary artery disease with exertional angina (HCC) Place 1 Tablet under the tongue every 5 minutes as needed for Pain, Chest. up to 3 doses in 15 minutes 25 Tablet 11 4 Active Tamsulosin HCl 0.4 MG Oral Capsule (Flomax)Indications: Obstructive uropathy TAKE ONE CAPSULE BY MOUTH EVERY OTHER DAY 45 Capsule 1 4 Active Solifenacin Succinate 5 MG Oral Tablet (VESIcare) Take 1 Tablet by mouth in the morning. 30 Tablet 6 4 Active levETIRAcetam 500 MG Oral Tablet (Keppra)Indications: Seizure, grand mal (HCC) 1 in the morning 2 in the evening 270 Tablet 1 4 Active HYDROcodone-Acetamin ophen 5-325 MG Oral [...] Moderate. 30 day RX 90 Tablet 4 05/02/20 24 Discontinu ed(Refill) HYDROcodone-Acetamin ophen 5-325 MG Oral TabletIndications:Ch ronic bilateral low back pain with right-sided sciatica Take 1 Tablet by mouth 3 times a day as needed for Pain, Mild or Pain, Moderate. 30 day RX 90 Tablet 4 05/06/20 24 Discontinu ed(Refill) Hospital, Clinic, or Other Facility Administered Medication Ordered Dose Route Frequency Start Date End Date Status albuterol sulfate (PROVENTIL) (2.5 MG/3ML) 0.083% inhalation solution 2.5 mgIndications:COPD, severity to be determined ([facility]) 2.5 mg NEBULIZER Q4H PRN 07/05/2019 Active documented as of this encounter (statuses as of 05/06/2024) Active Problems Problem Noted Date Diagnosed Date [...] thala janis stroke 08/03/2017 Urinary retention 07/13/2017 Senile osteoporosis 12/20/2015 MEDICATION USE AGREEMENT 11/30/2015 [...] as of this encounter (statuses as of 05/06/2024) Resolved Problems Problem Noted Date Diagnosed Date Resolved Date RCA occlusion 07/11/2017 10/11/2019 Aortic dissection, thoracic 07/11/2017 04/15/2024 Lumbar compression fracture 11/14/2015 11/14/2015 Overview: L2 [...] as of this encounter (statuses as of 05/06/2024) Immunizations Name Administration Dates Next Due Pneumococcal Conjugate Vacc, 13 Valent (Prevnar) 04/11/2020 Pneumococcal Polysaccharide PPV23 (Pneumovax) 08/05/2013 Seasonal Influenza, PF, 6 M & above, IM , (FluLaval or Fluzone) 06/19/2017 Seasonal Influenza, Quadriva lent, No Preserve, IM 06/27/2015 Seasonal Influenza, Trivalen t, (IIV3), with Preserv, (Fluzone) 06/29/2014,07/13/2013,06/22/2012,06/30,07/24/1999 TD - Tetanus/Diptheria (ADULT) 03/15/2004 TDAP [...] encounter Miscellaneous Notes * Addendum Note - Sam Resendez MD - 05/06/2024 5:42 PM EDTAddended by: SAM RESENDEZ on: 05/06/2024 05:42 PM Modules accepted: Orders * Telephone Encounter - Donna Samson [facility] - 05/06/2024 9:58 AM EDT Please resend Rx to [id number] [address] Confirmed pharmacy did not receive original prescription. I have reviewed the patients controlled substance dispensing history in the Prescription Drug Monitoring Program in compliance with the [facility] regulations before prescribing a controlled substance. PDMP checked on 05/06/2024. Signed Prescriptions: Disp Refills HYDROcodone-Acetaminophen 5-325 MG Oral Ta*90 Tab*0 Sig: Take 1 Tablet by mouth 3 times a day as needed for Pain, Mild or Pain, Moderate. 30 day RX Authorizing Provider: SAM RESENDEZ Last Visit: 04/15/2024 (in office), Visit date not found (telemedicine) Next Visit: 10/19/2024 Date medication was last filled: 04/03/24 Date medication is due for refill: 05/02/24 Pharmacy: [id number] [id number] Is this [...] Clinical Pharmacist Centralized Clinical Pharmacy Services ([facility]PS) [phone] * Telephone Encounter - Ela Abraham CPhT - 05/06/2024 9:53 AM EDT [id number] [address] Confirmed pharmacy did not receive original prescription. Signed Prescriptions: Disp Refills HYDROcodone-Acetaminophen 5-325 MG Oral Ta*90 Tab*0 Sig: Take 1 Tablet by mouth 3 times a day as needed for Pain, Mild or Pain, Moderate. 30 day RX Authorizing Provider: SAM RESENDEZ Last Visit: 04/15/2024 (in office), Visit date not found (telemedicine) 10/19/2024 If no future appointments scheduled, and last appointment is greater than a year ago, please schedule patient for a follow-up appointment Last date the medication was ordered: 05/04/24 Patient Phone Numbers Labs: Lab Results Component Value Date/Time CREAT 1.1 11/18/2023 04:21 PM CREAT 0.9 06/14/2019 08:52 AM POTASSIUM 5.0 11/18/2023 04:21 PM POTASSIUM 5.2 (H) 06/14/2019 08:52 AM TSH 0.96 08/03/2018 11:30 AM LDL 96 11/12/2023 08:46 AM LDL 92 06/14/2019 08:52 AM LDL NOT APPLICABLE 06/14/2019 08:52 AM ALT 31 05/18/2023 12:03 PM ALT 38 06/14/2019 08:52 AM HGBA1C 6.1 (H) 04/20/2024 08:51 AM HGBA1C 5.3 10/11/2019 04:14 PM * Telephone Encounter - Sam Resendez MD - 05/04/2024 7:30 AM EDTSigned Prescriptions: Disp Refills HYDROcodone-Acetaminophen 5-325 MG Oral Ta*90 Tab*0 Sig: Take 1 Tablet by mouth 3 times a day as needed for Pain, Mild or Pain, Moderate. 30 day RX Authorizing Provider: SAM RESENDEZ * Telephone Encounter - Rachel Purcell [facility] - 05/04/2024 5:21 AM EDT Pending Prescriptions: Disp Refills HYDROcodone-Acetaminophen 5-325 MG Oral Ta*90 Tab*0 Sig: Take 1 Tablet by mouth 3 times a day as needed for Pain, Mild or Pain, Moderate. 30 day RX * Telephone Encounter - Rachel Purcell [facility] - 05/04/2024 5:21 AM EDT I have reviewed the patients controlled substance dispensing history in the Prescription Drug Monitoring Program in compliance with the [facility] regulations before prescribing a controlled substance. PDMP checked on 05/04/2024. Pending Prescriptions: Disp Refills HYDROcodone-Acetaminophen 5-325 MG Oral T*90 Tab*0 Sig: Take 1 Tablet by mouth 3 times a day as needed for Pain, Mild or Pain, Moderate. 30 day RX Last Visit: 04/15/2024 (in office), Visit date not found (telemedicine) Next Visit: 10/19/2024 Date medication was last filled: 04/03 Date medication is due for refill: 05/02 [id number] [address] Is this request for [...] Results Review. Please approve if appropriate. Thank you, Rachel Purcell, CherelleD. Clinical Pharmacist Centralized Clinical Pharmacy Services ([facility]PS) 05/04/2024, 5:21 AM documented in this encounter Plan of Treatment Upcoming Encounters Date Type Department Care Team (Late st Contact Info) Description 05/18/2024 4:30 PM EDT Imaging Radiology [facility] 1st Floor, [address] [place] [address] 05/30/2024 12:30 PM EDT NeuroDiagnostic Study Neurophysiology Adilson Lanier [place] [address] [place] [address] Sp, Neurophys Tech [address] [place] [address] 06/02/2024 9:00 AM EDT NeuroDiagnostic [facility] [place] [address] [place] [address] Sp, Neurophys Tech [address] [facility] [place] [address] 06/06/2024 3:30 PM EDT Office Visit Cardiology, [facility] [address] [facility] [place] [address] Nargis Power CRNP [address] [facility] [place] [address] 09/13/2024 9:15 AM EST Office Visit Urology, [facility] [address] [facility] [place] [address] Mauricio Ramos MD [address] [facility] [place] [address] 10/19/2024 2:00 PM EST Office Visit [facility] [address] [place] [id number] Sam Resendez MD [address] [place] [address] 11/04/2024 1:00 PM EDT Office Visit Neurology [facility] [address] [facility] [place] [address] Elsie Capone MD [address] [facility] [place] [address] Scheduled Procedures Name Priority Associated Diagnoses Date/Ti me COLONOSCOPY FLEXIBLE PROXIMA L DIAGNOSTIC Recall History of colonic polyps Health Maintenance Due Date Last Done Comments DISCUSS TOBACCO CESSATION (REFER TO SMARTSET #3033) 1954 Alpha-1 Antitrypsin 1972 Cologuard 1999 Fecal Occult Blood Test 1999 10/04/1998 Sigmoidoscopy 1999 *COPD SEVERITY VERIFIED BY PFT 08/22/2015 DXA Scan 11/27/2017 11/28/2015 *BISPHONATE OR OTHER ACCEPTABLE MEDICATION NEEDED FOR OSTEOPOROSIS (REFER TO SMARTSET #1146) 06/14/2018 Adult Wellness Visit 2020 Depression Monitoring 06/13/2021 06/13/2020 Colonoscopy 04/05/2022 04/05/2019, 03/24, 01/15/2016, Additional history exists COVID-19 Vaccine ( season) 2024 Influenza Vaccine (FLU shot) (#1) 2024 06/19/2017, 06/27/2015, 06/29/2014, Additional history exists Diabetic Eye Exam 05/16/2024 01/29/2021 Postponed from 01/29/2022 (Patient Declined After Education) HbA1c 10/21/2024 04/20/2024, 04/25, 10/17/2022, Additional history exists GFR 11/17/2024 11/18/2023, 04/25, 01/29/2023, Additional history exists O2 ASSESSMENT COMPLETED IN PAST YEAR FOR COPD 12/30/2024 12/31/2023 Diabetic Foot Exam 04/08/2025 10/17/2022, 0 09/05/2020, 10/11/2019, Additional history exists Postponed from 10/17/2023 (Patient Declined After Education) Colorectal Cancer Screening 04/15/2025 Postponed from 1999 (Patient Declined After Education) Albumin/Creatinine Ratio 04/20/2025 024, 10/17/2022, 10/16/2021, Additional history exists B-12 04/20/2025 04/20/2024, 10/23, 10/17/2022, Additional history exists Pneumococcal Vaccine: 65+ Years (3 of 3 - PPSV23 or PCV20) 04/21/2025 04/11/2020, 08/05/2013 Postponed from 04/11/2021 (Patient Declined After Education) Zoster Vaccines (1 of 2) 04/21/2025 Pos tponed from 2004 (Patient Declined After Education) DTap/Tdap Vaccines (2 - Td or Tdap) 01/17/2026 01/18/2016, 03/15/2004 VITAMIN D LEVEL ONCE IN A LIFETIME-USE SMARTSET# [id number] Completed 12/18/2015, 02/09/2015, 06/29/2014, Additional history exists [...] this encounter Medical Devices Implanted Type Area Assistant Front End Manager Device Identifier Shelf Expiration Date Model / Serial / Lot Stent Carotid [id number] - [id number] Implanted:Qty: 1 on 08/23/2013 at [facility] Right: Carotid [facility]ASC[facility]ICES 02/21/2016 [id number] / / [id number] documented as of this encounter Visit Diagnoses Diagnosis Chronic bilateral low back pain with right-sided sciatica documented in this encounter Advance Directives * [...] the patient have Health Care Power of Revenue Integrity Analyst? No * Full Code Date Activated Date Inactivated Comments 08/23/2013 8:39 AM 08/24/2013 2:49 PM This order r eflects the patients wishes and were consensually agreed upon. Care Teams Doorkeeper Relationship Specialty Start Date End Date Sam Resendez MD [address] [place] [address] PCP - General 04/07/1996 documented as of this encounter
--- OUTSIDE RECORDS SUMMARY | 2024-06-12 18:39 | External Medical Summary | Summary of Care ---
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)*; Exertional angina (HCC); HTN, goal below 140/90; Dyslipidemia, goal LDL below 70; Statin intolerance Allergies Active Allergy Reactions Criticality Noted Date Comments Ciprofloxacin Hives 09/01/2017 Statins 11/15/2020 All statins Simvastatin 05/07/2006 Severe myalgia's documented as of this encounter (statuses as of 06/06/2024) Medications Medication Sig Dispensed Refills Start Date End Date Status ASPIRIN EC 81 MG PO TBECIndications:Sether nary atherosclerosis of mi'kmaq coronary artery Take one pill daily 100 [...] in 24hours 10 Tablet 5 4 Active Clopidogrel Bisulfate 75 MG Oral [...] Tablet Extended Release 24 Hour (toPROL XL)Indications:Coron johan artery disease with exertional angina (HCC),HTN, goal [...] OTHER DAY 45 Capsule 1 4 Active Additional Information Patient not taking.Reported on 06/06/2024 Solifenacin Succinate 5 MG Oral Tablet (VESIcare) [...] 30 day RX 90 Tablet 4 Active Isosorbide Mononitrate ER 30 MG Oral Tablet Extended Release 24 Hour (Imdur)Indications:E xertional angina (HCC) Take 3 Tablets by mouth in the morning. 270 Tablet 3 4 Active Isosorbide Mononitrate ER 60 MG Oral Tablet Extended Release 24 Hour (Imdur)Indications:E xertional angina (HCC) Take 1 Tablet by mouth in the morning. 90 Tablet 3 4 06/06/20 24 Discontinu ed(Medicat ion/Dose Changed) Hospital, Clinic, or Other Facility Administered Medication Ordered Dose Route Frequency Start Date End Date Status albuterol sulfate (PROVENTIL) (2.5 MG/3ML) 0.083% inhalation solution 2.5 mgIndications:COPD, severity to be determined (HCC) 2.5 mg NEBULIZER Q4H PRN 07/05/2019 Active documented as of this encounter (statuses as of 06/06/2024) Active Problems Problem Noted Date Diagnosed Date [...] as of this encounter (statuses as of 06/06/2024) Resolved Problems Problem Noted Date Diagnosed Date [...] as of this encounter (statuses as of 06/06/2024) Immunizations Name Administration Dates Next Due Pneumococcal Conjugate Vacc, 13 Valent (Prevnar) 04/11/2020 Pneumococcal Polysaccharide PPV23 (Pneumovax) 08/05/2013 Seasonal Influenza Vac., MDV , IM, 0.5 mL (Fluzone) 06/29/2014,07/13/2013,06/22/2012,06/30 Seasonal Influenza, PF, 6 M & above, IM , (FluLaval or Fluzone) 06/19/2017 Seasonal Influenza, Quadriva lent, No Preserve, IM 06/27/2015 TDAP (age 10 and older)(Boostrix) 01/18/2016 documented [...] Sign Reading Time Taken Comments Blood Pressure 140/74 06/06/2024 3:28 PM EDT Pulse 62 06/06/2024 3:28 PM EDT Temperature - - Respiratory Rate 12 06/06/2024 3:28 PM EDT Oxygen Saturation - - Inhaled Oxygen Concentration - - Weight 104.9 kg (231 lb 4 oz) 06/06/2024 3:28 PM EDT Height - - Body Mass Index 32.25 04/15/2024 2:17 PM EDT documented in this encounter Functional [...] (15 years old or older) Yes 07/26/20 Cognitive Status Response Date of Assessm ent Because of a physical, menta l, or emotional condition, do you have serious difficulty concentrating, remembering, or making decisions? (5 years old or older) Yes 07/26/2017 documented as of this encounter Progress Notes * Nargis Power CRNP - 06/06/2024 3:30 PM EDT Images from the original note were not included. 06/06/2024 Cardiology Follow Up Primary Tire Specialist: Dr. Escamilla Cardiac Problems: Chronic alcohol and tobacco use Chronic hyponatremia Recurrent syncopal episodes and symptomatic orthostatic hypotension Chronic headaches, intermittent dizziness Atypical chest pain - Chest tightness at nighttime and dysphagia, significantly improved following addition of omeprazole, reproducible chest wall pain today. Chronic RCA occlusion, attempted [employer] PCI that was partially successful, plain balloon [...] candidate for statin therapy (patient and provider opinion) . Prescribed Praluent with improvedlipid control. Has been non compliant Daytime fatigue, chronic headaches, witnessed apneic episodes, loud snoring. Sleep testing back in December of 2017 showed no evidence of clinically significant sleep apnea/hypopnea or nocturnal hypoxemia. No REM sleep was attained, so no comments were made about REM without atonia. Severe periodic limbmovement disorder noted. HPI: Patel León is a 68 year old male presents for routine cardiology follow up. Patient was last seen in the office by the undersigned on 11/27/2023 stable from a cardiac perspective. He endorses occasional angina episodes with exertion but only requires rare use of sublingual nitroglycerin tablets. Patient's last cardiac catheterization as noted below demonstrated high risk areas not amenable to PCI and would be reserved in the setting of a STEMI for intervention recommendation at that time was to maximize medication management in he has since started Imdur which seems raymundo helping. Patient presents today feeling poorly. Spouse presented with patient today. Recent hospitalization in February for dizziness and chest pain, 2-3 times per week. He is using SL NTG with relief. Sometimes taking up to 3 at a time with resolution, but does not go to the ER. Describes as a dull ache. Also endorses intermittant dizzines with or without chest pain. Patient states they do have a bloodpressure cuff at home but they are unsure how accurate is with comparison to are in office blood pressure readings. Blood pressure at high end of target today Reports compliance on all medication therapies REVIEW OF SYSTEMS: See HPI for pertinent positives. All others negative other than those noted in the HPI. CONSTITUTIONAL: No change in weight, No weakness, No fatigue and No fevers, No sweats or chills. PULMONARY: No cough, sputum, or hemoptysis, No wheezing, No shortness or breath and No recent change in breathing. [...] 100 MG PO TABS 1 tab daily. Cholecalciferol (VITAMIN D3) 2000 units Capsule Take 1 Capsule by mouth in the morning. Acetaminophen 500 MG Oral Tablet Take 1 Tablet by mouth every 4 hours as needed for Pain. As Tab 0 Omeprazole 20 MG Oral Capsule Delayed Release (PriLOSEC) TAKE 1 CAPSULE BY MOUTH EVERY MORNING 90 Capsule 3 amLODIPine Besylate 5 MG Oral Tablet (Norvasc) Take 1 Tablet by mouth in the morning. 90 Tablet 3 Lasmiditan Succinate 50 MG Oral Tablet (Reyvow) Take one at onset of migraine. Max 1 dose in 24hours 10 Tablet 5 Clopidogrel Bisulfate 75 MG Oral Tablet (pLAVix) [...] HOURS NEEDED FOR NAUSEA. 30 Tablet 0 Metoprolol Succinate ER 25 MG Oral Tablet Extended Release 24 Hour (toPROL XL) 25mg daily in AM and12.5mg daily at bedtime 135 Tablet 3 amLODIPine Besylate 2.5 MG Oral Tablet (Norvasc) Take 1 Tablet by mouth in the morning. 90 Tablet 3 Nitroglycerin 0.4 MG Sublingual Tablet Sublingual (Nitrostat) Place 1 Tablet under the tongue every5 minutes as needed for Pain, Chest. up to 3 doses in 15 minutes 25 Tablet 11 Solifenacin Succinate 5 MG Oral Tablet (VESIcare) Take 1 Tablet by mouth in the morning. 30 Tablet 6 levETIRAcetam 500 MG Oral Tablet (Keppra) 1 in the morning 2 in the evening 270 Tablet 1 HYDROcodone-Acetaminophen 5-325 MG Oral Tablet Take 1 Tablet by mouth 3 times a day as needed for Pain, Mild or Pain, Moderate. 30 day RX 90 Tablet 0 Isosorbide Mononitrate ER 30 MG Oral Tablet Extended Release 24 Hour (Imdur) Take 3 Tablets by mouth in the morning. 270 Tablet 3 FOLIC ACID 400 MCG PO TABS daily (Patient not taking: Reported on 06/06/2024) Tamsulosin HCl 0.4 MG Oral Capsule (Flomax) TAKE ONE CAPSULE BY MOUTH EVERY OTHER DAY (Patient not taking: Reported on 06/06/2024) 45 Capsule 1 Current Facility-Administered Medications Medication Dose Route Frequency Provider Last Rate Last Admin albuterol sulfate (PROVENTIL) (2.5 MG/3ML) 0.083% inhalation solution 2.5 mg 2.5 mg Nebulizer Q4H PRN Joselyn Merida DO Past Medical History: Diagnosis Date Acute ischemic VBA thalamic stroke, left (HCC) 08/04/2013 Benign neoplasm of colon 06/05/2009 adenomatous/repeat colonoscopy in 1 yr Carotid artery stenosis CLASSICAL MIGRAINE WITHOU MENTION OF INTRACTABLE MIGRAINE 01/14/2002 Compression fracture of L2 lumbar vertebra (HCC) 10/16/2015 Coronary atherosclerosis of mi'kmaq coronary artery 2006 total occ RCA// 40% prox LAD Displacement of cervical intervertebral disc without myelopathy 01/14/2002 Esophageal reflux 01/14/2002 HTN, goal below 140/90 ICAO (internal carotid artery occlusion) 08/04/2013 Left complete, right near complete Mixed dyslipidemia Motion sickness Multiple fractures of ribs of right side 02/10/2013 Tobacco use disorder Family History Problem Relation Name Age of Onset Heart Disorder Mother cabgx4 age 65 Arthritis Mother Arthritis Father Heart Disorder Father Cancer Father Arthritis Daughter Asthma Sister Arthritis Grandmother (Paternal) Social History Socioeconomic History Marital status: Spouse name: Hilary Number of children: 3 Years of education: 12 Occupational History Employer: [employer] Comment: [employer] Tobacco Use Smoking status: Every Day Current packs/day: 1.00 Average packs/day: 1 pack/day for 40.0 years (40.0 ttl pk-yrs) Types: Cigarettes Smokeless tobacco: Former Types: Chew Vaping Use Vaping status: Never Used Substance and Sexual Activity Alcohol use: Yes Alcohol/week: 14.0 standard drinks of alcohol Types: 14 12 oz of beer per week Comment: 7 beers or more everyday Drug use: No Sexual activity: Yes Partners: Female Other Topics Concern Seat Belt Yes Social Determinants of Health Social Connections OBJECTIVE/PHYSICAL EXAMINATION: BP 140/74 (BP Site: Left Arm, BP Position: Sitting, BP Cuff Size: Large) | Pulse 62 | Resp 12 | Wt 104.9 kg (231 lb 4 oz) | BMI 32.25 kg/m | BSA 2.29 m General: No acute distress. A+Ox3. HEENT: Normocephalic. Atraumatic. PERRL. EOMI. Conjunctiva and sclera clear. NECK: No carotid bruits. No JVD. Carotid upstrokes are brisk. Heart: RRR. S1 and S2 noted. No murmur. No rubs or gallops. PMI non displaced. Lungs: Clear to auscultation. No wheezes.No rhonchi. No rales. Abdomen: Normal bowel sounds. Soft. Nontender. No masses or organomegaly. No abdominal bruits. Extremities: No edema. No clubbing or cyanosis. Pulses: radial=2/4, posterior tibial=2/4, dorsalis pedis = 2/4. NEURO: No focal deficits. PSYCH: Appropriate affect and insight. DATA Labs & Imaging Reviewed Below: EKG 12/30/2023 CONCLUSIONS: Normal sinus rhythm Cannot rule out Inferior infarct , age undetermined Cannot rule out Anterior infarct , age undetermined Abnormal ECG When compared with ECG of 27-Nov-2023 14:35, No significant change was found Ventricular Rate: 73 ZIO monitor report reviewed dated Jul 2023: [...] 2023: June 20, 2021 TTE Interpretation Summary ([facility], Dr. Brito): Technically limited. Dougie normalvalvular structure [...] right carotid stent. ASSESSMENT/PLAN: 68 year old year old male 1. 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 Exertional angina (HCC) -patient with increasing episodes of exertional angina as discussed above typically relieved with 1-3 nitroglycerin tablets despite medication compliance. -discussed his prior cardiac catheterization in detail in which they had advised to pursue maximizing medication therapies and that high risk PCI would only be considered in the event of a STEMI. -blood pressure above target -patient is content who continue his current medication regimen including amlodipine, aspirin, Plavix, metoprolol succinate, but is to increase his Imdur from 60 mg to 90 mg daily -patient's is to send a [employer] Internet message within 1 month with patient's response to increase in medication therapy and we will consider further titration depending on blood pressures of Imdur as well as consider addition of Ranexa - Isosorbide Mononitrate ER 30 MG Oral Tablet Extended Release 24 Hour (Imdur); Take 3 Tablets by mouth in the morning. Dispense: 270 Tablet; Refill: 3 3. HTN, goal below 140/90 High end of target -continue current medication therapies but we will increase Imdur from 60 mg to 90 mg daily and await response from patient's spouse in 1 month to determine if medication needs further titration -requested the patient's schedule a nurse visit and to bring their home blood pressure monitor so we can compare and calibrate the machine 4. Dyslipidemia, goal LDL below 70 5. Statin intolerance -high risk given extensive CAD as well as diabetes statin intolerance in the past -most recent lipid panel from November 11, 2023 demonstrates LDL of 96. Encouraged to continue a cardiac prudent diet and consider non-statin therapies. DISPOSITION: Follow up 6 months or if symptoms worsen/fail to improve. All questions were answered to the patients satisfaction. Patient advised to report to ED with any and all emergencies. The patient agrees to the above plan and will call with additional questions or concerns. [facility], [address] [place] [address] I spent a total of 35 minutes on the date of service in preparation, delivery, and documentation ofthe care provided to Patel León excluding any time spent in the performance of separately billed services. This chart was completed in part utilizing [employer] Speech Voice Recognition Software. Grammatical errors, random word insertions, pronoun errors, and incomplete sentences are an occasional consequence of this system due to software limitations, ambient noise, and hardware issues. Any formal questions or concerns about the content, text, or information contained within the body of this dictation should be directly addressed to the provider for clarification. documented in this encounter Nursing Notes * Loren Blackwell CMA - 06/06/2024 3:31 PM EDT Examination Room: 7 Name: Patel León Date of : (1955). Reason for Visit: 5M f/u Interim Hospitalization(s): [facility] February CP Problems/Concerns: Palpitations 1-2 times/day. Also has intermittent dizziness, no falls. Chest Pain/SOB: L-sided CP 2-3 times/week, uses SL NTG. Also has dizziness, nausea with CP. Sometimes takes up to 3 doses of NTG. Denies SOB. [facility] Discussed: Not applicable [facility] a way you can talk to [...] Care Team (Late st Contact Info) Description 06/16/2024 11:30 AM EDT Cardiac Studies Cardiac Studies, [facility] [address] [facility] [place] [address] 09/13/2024 9:15 AM EST Office Visit Urology, [facility] [address] [facility] [place] [address] Mauricio Ramos MD [address] [place] [address] 10/19/2024 2:00 PM EST Office Visit [facility] [address] [place] [phone] Terry Resendez MD [address] [place] [address] 11/04/2024 1:00 PM EDT Office Visit Neurology [facility] [address] [facility] [place] [address] Elsie Capone MD [address] [place] [address] 12/20/2024 11:00 AM EDT Office Visit Cardiology, [facility] [address] [place] [address] Nargis Power CRNP [address] [place] [address] Scheduled Procedures Name Priority Associated Diagnoses Date/Ti me COLONOSCOPY FLEXIBLE PROXIMA L DIAGNOSTIC Recall History of colonic polyps Health Maintenance Due Date Last Done Comments DISCUSS TOBACCO CESSATION (REFER TO SMARTSET #5191) 1955 Alpha-1 Antitrypsin 1972 Cologuard 1999 Fecal Occult Blood Test 1999 10/04/1998 Sigmoidoscopy 1999 *COPD SEVERITY VERIFIED BY PFT 08/22/2015 DXA Scan 11/27/2017 11/28/2015 *BISPHONATE OR OTHER ACCEPTABLE MEDICATION NEEDED FOR OSTEOPOROSIS (REFER TO SMARTSET #1146) 06/14/2018 Adult Wellness Visit 2020 Depression Monitoring 06/13/2021 06/13/2020 Diabetic Eye Exam 01/29/2022 01/29/2021 Colonoscopy 04/05/2022 04/05/2019, 03/24, 01/15/2016, Additional history exists COVID-19 Vaccine ( season) 2024 Influenza Vaccine (FLU shot) (#1) 2024 06/19/2017, 06/27/2015, 06/29/2014, Additional history exists HbA1c 10/21/2024 04/20/2024, 04/25, 10/17/2022, Additional history [...] D LEVEL ONCE IN A LIFETIME-USE SMARTSET# [id number] Completed 12/18/2015, 02/09/2015, 06/29/2014, Additional history exists [...] this encounter Medical Devices Implanted Type Area Account Manager Relief Device Identifier Shelf Expiration Date Model / Serial / Lot Stent Carotid [id number] - [id number] Implanted:Qty: 1 on 08/23/2013 at OR [facility] Right: Carotid [facility] VASCULAR DEVICES 02/21/2016 [id number] / / [id number] documented as of this encounter Visit Diagnoses Diagnosis 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 No * Full Code Date Activated Date Inactivated Comments 07/10/2017 5:59 PM 07/13/2017 3:18 PM This order reflects the patients wishes and were consensually agreed upon. Question Answer Comments Discussion of Advance Directives occurred with: Patient/Family Does the patient have a Living Will? Yes, not cu rrently available Does the patient have Health Care Power of Accounts Payable Clerk? No * Full Code Date Activated Date Inactivated Comments 08/23/2013 8:39 AM 08/24/2013 2:49 PM This order r eflects the patients wishes and were consensually agreed upon. Care Teams Tractor Trailer Moving Van Driver Relationship Specialty Start Date End Date Terry Resendez MD [address] [place] [address] PCP - General 04/07/1996 documented as of this encounter"
--- OUTSIDE RECORDS SUMMARY | 2024-06-12 18:39 | External Medical Summary | Summary of Care ---
Author Name Unknown Organization [facility] Address [address] [place] [address] Phone [phone] Care Team Providers Care Used Equipment Sales Representative Name Role Phone Terry Resendez MD Primary Care Provider [phone] Reason for Referral * Precert (Within 10 days (routine)) - Pending Review Specialty Diagnoses / Procedures Referred By Kishore hughes Referred To Contact Radiology Diagnoses Seizure, grand mal (HCC) Procedures MRI BRAIN WITHOUT CONTRAST Elsie Capone MD [address] [place] [address] [place] [id number] Referral ID Status Reason Start Date Expiration Date V isits Requested Visits Authorized [id number] Pending Review 05/02/2024 999 999 Reason for Visit * Reason Comments Follow Up Encounter Details Date Type Department Care Team (Late st Contact Info) Description 05/02/2024 3:40 PM EDT Office Visit Neurology [facility] [place] [address] [place] [address] Elsie Capone MD 200 [facility] [place] [id number] Seizure, grand mal (HCC)* Allergies Active Allergy Reactions Criticality Noted Date Comments Ciprofloxacin Hives 09/01/2017 Statins 11/15/2020 All statins Simvastatin 05/07/2006 Severe myalgia's documented as of this encounter (statuses as of 05/02/2024) Medications Medication Sig Dispensed Refills Start Date End Date Status ASPIRIN EC 81 MG PO TBECIndications:Esther horton atherosclerosis of [place] coronary artery Take one pill daily 100 [...] 15 minutes 25 Tablet 11 4 Active HYDROcodone-Acetamin ophen 5-325 MG Oral TabletIndications:Ch ronic bilateral low back pain with right-sided sciatica Take 1 Tablet by mouth 3 times a day as needed for Pain, Mild or Pain, Moderate. 30 day RX 90 Tablet 4 Active Tamsulosin HCl 0.4 MG Oral [...] the evening 270 Tablet 1 4 Active levETIRAcetam 500 MG Oral Tablet (Keppra)Indications: Seizure, grand mal (HCC) TAKE 1 TABLET BY MOUTH TWICE DAILY 180 Tablet 1 4 05/02/20 24 Discontinu ed(Refill) Hospital, Clinic, or Other Facility Administered Medication Ordered Dose Route Frequency Start Date End Date Status albuterol sulfate (PROVENTIL) (2.5 MG/3ML) 0.083% inhalation solution 2.5 mgIndications:COPD, severity to be determined (HCC) 2.5 mg NEBULIZER Q4H PRN 07/05/2019 Active documented as of this encounter (statuses as of 05/02/2024) Active Problems Problem Noted Date Diagnosed Date [...] as of this encounter (statuses as of 05/02/2024) Resolved Problems Problem Noted Date Diagnosed Date [...] as of this encounter (statuses as of 05/02/2024) Immunizations Name Administration Dates Next Due Pneumococcal Conjugate Vacc, 13 Valent (Prevnar) 04/11/2020 Pneumococcal Polysaccharide PPV23 (Pneumovax) 08/05/2013 Seasonal Influenza, PF, 6 M & above, IM , (FluLaval or Fluzone) 06/19/2017 Seasonal Influenza, Quadriva lent, No Preserve, IM 06/27/2015 Seasonal Influenza, Trivalen t, (IIV3), with Preserv, (Fluzone) 06/29/2014,07/13/2013,06/22/2012,06/30 TDAP (age 10 and older)(Boostrix) 01/18/2016 [...] Sign Reading Time Taken Comments Blood Pressure 124/80 05/02/2024 3:56 PM EDT Pulse 65 05/02/2024 3:56 PM EDT Temperature 36.6 C (97.9 F) 05/02/2024 3:56 PM ED T Respiratory Rate 18 05/02/2024 3:56 PM EDT Oxygen Saturation 97% 05/02/2024 3:56 PM EDT Inhaled Oxygen Concentration - - Weight 102 kg (224 lb 14.4 oz) 05/02/2024 3:56 P M EDT Height - - Body Mass Index 31.37 04/15/2024 2:17 PM EDT documented in this [...] Progress Notes * Elsie Capone MD - 05/02/2024 4:59 PM EDT CLINIC NOTES Neurology [facility] [address] [facility] [address] Patel León : 1955 NEUROLOGY OUTPATIENT NOTE 05/02/2024 HISTORY: The patient is referred for consultation by Dr. Resendez, who will be receiving a copy of this note. The patient comes today in follow-up of seizure migraine and history of stroke with a left carotid occlusion and no significant stenosis in the right internal carotid. Have tried to prescribe multiple of the CGRP inhibitors for migraine but it was not affordable. He has migraines which respond wellto Reyvow, frequency varies. For the last year about 4:00 a.m. on most nights his indicates that he will moan twitch and then stiffened up after which the event is over it may last up to 5 minutes she has never tried wakinghim up during 1 of these episodes. He is not incontinent. He has not had any daytime seizures. Several weeks ago he stood up and had severe chest pain he was admitted to the hospital for what sounds like accelerated hypertension. 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, lumbar, with myelopathy DDD (degenerative disc disease), lumbar Other specified peripheral vascular diseases (HCC) Hemiplga following cerebral infrc aff right dominant side (HCC) Diabetes mellitus with peripheral angiopathy (HCC) Acute ischemic stroke (HCC) Bradycardia Hemiplegia and hemiparesis following unspecified cerebrovascular disease affecting right dominant side (HCC) Recurrent major depressive disorder (HCC) Major depressive disorder, single episode, moderate (HCC) Seizure, grand mal (HCC) BPH with obstruction/lower urinary tract symptoms Nocturia Past Surgical History: Procedure Laterality Date ANESTHESIA PROCEDURE NEC 08/05/2013 ANESTHESIA FOR PACU PROCEDURE OTHER performed by In & Out Surgery [facility] at [facility] CARDIAC CATH-CARDIOLOGY ONLY 2006 COLONOSCOPY W/ LESION REMOVAL, SNARE 06/05/09 done one 12mm polyp in distal sigmoid,,one 3mm in transverse colon, 5mm polyp in proximal sigmoid, diverticulosis /adenomatous/repeat colonoscopy in 1 yr COLONOSCOPY, DIAGNOSTIC (RECTUM) 01/15/2016 hyperplatic & serrated adenomatous polyp, diverticulosis, repeat 3 yrs/[facility] COLONOSCOPY, DIAGNOSTIC (RECTUM) N/A 04/05/2019 poor prep/diverticulosis sigmoid colon/biopsies show benign polyp/recall 3 years/COLONOSCOPY FLEXIBLE PROXIMAL DIAGNOSTIC performed by Dat Narayanan MD at OR [facility] CORONARY ANGIOGRAPHY W/LEFT HEART CATH 05/25/2017 CORONARY ANGIOGRAPHY W/LEFT HEART CATH performed by Martha Alford MD at CARDIAC LABS [facility] INFORMATION Ankle fx repair. IR VERTEBRAL AUGMENTATION TECH ONLY 2015 L2/ Dr Barcenas MISCELLANEOUS ORDER 08/1999 left lateral elbow ligament repair MISCELLANEOUS ORDER ([facility] ONLY) 09/2003 right rotator cuff repair/ [place] OTHER 09/2006 left rotator cuff repair OTHER 2007 bilateral hip replacement (Dr Benavidez) PROSTATE, LASER VAPORIZATION N/A 12/31/2023 LASER VAPORIZATION PROSTATE performed by Mauricio Ramos MD at [facility] REMOVAL OF TONSILS, AGE 12+ TOTAL HIP REPLACEMENT & PROSTHESIS both hips, AVN TRANSCATH STENT-CAROTID ARTERY, W/EMBOL PROTECTION 08/23/2013 right carotid stent with cerebral angiogram. 08/23/13 Dr. Chen. [facility] OR TRANSCATH STENT-CAROTID ARTERY, W/EMBOL PROTECTION Xact Carotid Stent 08/05- safe up to 3T Social History Socioeconomic History Marital status: Spouse name: Hilary Number of children: 3 Years of education: 12 Highest education level: Not on file Occupational History Employer: [employer] Comment: [employer] [place] Tobacco Use Smoking status: Every Day Current [...] on file Transportation Needs: Not on file Social Connections: Unknown (05/02/2024) Social Connections How often do you feel lonely or isolated from those around you? (Adult - for ages 18 years and over): Not on file Housing Stability: Not on file Family History Problem Relation Name Age of [...] 4 hours as needed for Pain. As [id number] Tab 0 Omeprazole 20 MG Oral Capsule [...] by mouthin the morning. 90 Tablet 3 Clopidogrel Bisulfate [...] doses in 15 minutes 25 Tablet 11 HYDROcodone-Acetaminophen 5-325 MG Oral Tablet Take 1 Tablet by mouth 3 times a day as needed for Pain, Mild or Pain, Moderate. 30 day RX 90 Tablet 0 Tamsulosin HCl 0.4 MG Oral Capsule (Flomax) TAKE ONE CAPSULE BY MOUTH EVERY OTHER DAY 45 Capsule 1 Solifenacin Succinate 5 MG Oral Tablet (VESIcare) Take 1 Tablet by mouth in the morning. 30 Tablet 6 levETIRAcetam 500 MG Oral Tablet (Keppra) 1 in the morning 2 in the evening 270 Tablet 1 Current Facility-Administered Medications Medication Dose Route Frequency Provider Last Rate Last Admin albuterol sulfate (PROVENTIL) (2.5 MG/3ML) 0.083% inhalation solution 2.5 mg 2.5 mg Nebulizer Q4H PRN Joselyn Merida, DO Review of patient's allergies indicates: Allergen Reactions Ciprofloxacin Hives Statins All statins Zocor [Simvastatin] Severe myalgia's Results for orders placed or performed in visit on 12/23/23 CBC Result Value Ref Range WBC 7.52 4.00 - 10.80 K/uL RBC 4.16 4.50 - 5.25 M/uL HGB 13.3 (L) 14.0 - 16.8 g/dL HCT 40.0 40.0 - 48.4 % MCV 96.2 82.0 - 99.5 fL MCH 32.0 27.0 - 34.0 pg MCHC 33.3 32.0 - 36.0 g/dL RDW 12.1 11.5 - 15.5 % PLT 224 140 - 400 K/uL MPV 8.3 6.6 - 11.1 fL Results for orders placed or performed in visit on 11/18/23 BASIC METABOLIC PANEL Result Value Ref Range BUN 10 6 - 20 mg/dL Creatinine 1.1 0.6 - 1.2 mg/dL Estimated Glomerular Filtration Rate 71 >=60 mL/min Sodium 135 135 - 146 mmol/L Potassium 5.0 3.5 - 5.1 mmol/L Chloride 96 (L) 98 - 107 mmol/L CO2 28 22 - 32 mmol/L Anion Gap 11 7 - 15 mmol/L Glucose 84 70 - 120 mg/dL Calcium 9.9 8.4 - 10.2 mg/dL Results for orders placed or performed during the hospital encounter of 07/26/17 LIPID PANEL Result Value Ref Range HOURS FASTING NOT PROVIDED hours Triglycerides 180 <200 mg/dL Cholesterol 184 <200 mg/dL HDL Cholesterol 38 (L) >39 mg/dL Cholesterol-HDL Ratio 4.8 LDL Cholesterol 110 0 - 129 mg/dL Results for orders placed or performed in visit on 11/12/23 LIPID PANEL WITH DIRECT LDL IF TG IS HIGH Result Value Ref Range Triglycerides 94 <=174 mg/dL Cholesterol 198 <200 mg/dL HDL Cholesterol 83 >39 mg/dL Non-HDL Cholesterol 115 <=159 mg/dL LDL Cholesterol 96 <=129 mg/dL Lab Results Component Value Date/Time HEMOGLOBIN A1C - [facility] 6.1 (H) 04/20/2024 08:51 AM HEMOGLOBIN A1C - [facility] 5.5 05/18/2023 12:03 PM HEMOGLOBIN A1C - [facility] 5.3 10/17/2022 02:57 PM HEMOGLOBIN A1C - [facility] 5.3 10/11/2019 04:14 PM HEMOGLOBIN A1C - [facility] 6.1 (H) 08/03/2018 11:30 AM HEMOGLOBIN A1C - [facility] 6.1 01/19/2018 03:27 PM Lab Results Component Value Date/Time TSH - [facility] 0.96 08/03/2018 11:30 AM TSH - [facility] 3.43 04/22/2017 10:01 AM TSH - [facility] 1.22 02/09/2015 08:50 AM DAYANNA NAREN SCREEN Date Value Ref Range Status 02/16/2007 NEGATIVE Final Antinuclear Antibody Pattern, IFA Date Value Ref Range Status 01/15/2006 NOT APPLICABLE PATTERN Final Antinuclear Antibody Titer, IFA Date Value Ref Range Status 01/15/2006 <40 <40 TITER Final Results for orders placed or performed in visit on 04/20/24 VITAMIN B12 Result Value Ref Range Vitamin B12 565 232 - 1,245 pg/mL Results for orders placed or performed in visit on 01/19/18 FOLIC ACID Result Value Ref Range Folic Acid >20.0 >4.5 ng/mL No results found for: "[id number]" No results found for: "OPYY45LDI1" No results found for: "[id number]" 25OH VITAMIN D TOTAL (ng/mL) Date Value 12/18/2015 50 02/09/2015 42 06/29/2014 26.3 (L) Vitamin D Level Interpretation deficient: <20 ng/ml insufficient: 20-30 ng/ml normal: 31-100 ng/ml REVIEW OF SYSTEMS: As above PHYSICAL EXAM: BP 124/80 (BP Site: Left Arm, BP Position: Sitting, BP Cuff Size: Regular) | Pulse 65 | Temp 36.6 C (97.9 F) (Tympanic) | Resp 18 | Wt 102 kg (224 lb 14.4 oz) | SpO2 97% | BMI 31.37 kg/m | BSA 2.26 m The patient is awake and alert speech is normal he has some difficulty with word finding he followscommands easily repetitions are normal. There are no carotid bruits normal visual mcginnis facial symmetry. Mild weakness of the right upper extremity symmetric reflexes gait non hemiparetic IMPRESSION: Seizure disorder query nocturnal seizures increase nighttime dose of Keppra to a 1000 mg continue morning dose of 500 mg. I have ordered a ambulatory EEG if these episodes persist will goahead with the ambulatory EEG if they resolve will not performed. History of left MCA infarction left carotid occlusion follow-up carotid ultrasound in 2024 History of accelerated hypertension increasing word-finding difficulty and diagnoses since that time recommend follow-up MRI further workup will depend on the results of the imaging History of migraine insurance not covering what I consider to be the safest drug class IE CGRP inhibitors Elsie Capone MD 05/02/2024 4:59 PM documented in this encounter Nursing Notes * Gail Hamilton LPN - 05/02/2024 3:55 PM EDT Patient verified identity by spelling of last name and date. Chief Complaint Patient presents with Follow Up documented in this encounter Plan of Treatment Upcoming Encounters Date Type Department Care Team (Late st Contact Info) Description 05/18/2024 4:30 PM EDT Imaging Radiology [facility] 1st [facility] [address] [place] [address] 05/30/2024 12:30 PM EDT NeuroDiagnostic Study Neurophysiology [facility] [address] [place] [address] Sp, Neurophys Tech 200 [facility] [place] [address] 06/02/2024 9:00 AM EDT NeuroDiagnostic Study Neurophysiology [facility] [address] [place] [address] Sp, Neurophys Tech 200 [facility] [place] [address] 06/06/2024 3:30 PM EDT Office Visit Cardiology, [facility] [address] [place] [address] Nargis Power CRNP 132 [place] [address] 09/13/2024 9:15 AM EST Office Visit Urology, [facility] [address] [place] [address] Mauricio Ramos MD [address] [place] [address] 10/19/2024 2:00 PM EST Office Visit [place] [address] [place] [phone] Terry Resendez MD [address] [place] [address] 11/04/2024 1:00 PM EDT Office Visit Neurology [facility] 200 [facility] [place] [address] Elsie Capone MD 200 [facility] [place] [address] Scheduled Orders Name Type Priority Associated Diagnoses Orde r Schedule EEG AMBULATORY Procedures Routine Seizure, grand mal (HCC) Ordered: 05/02/2024 MRI BRAIN WITHOUT CONTRAST Medical Imaging Routine Seizure, grand mal (HCC) Ordered: 05/02/2024 Scheduled Procedures Name Priority Associated Diagnoses Date/Ti me COLONOSCOPY FLEXIBLE PROXIMA L DIAGNOSTIC Recall History of colonic polyps Health Maintenance Due Date Last Done Comments DISCUSS TOBACCO CESSATION (REFER TO SMARTSET #3291) 1955 Alpha-1 Antitrypsin 1972 Cologuard 1999 Fecal [...] 10/16/2021, Additional history exists B-12 04/20/2025 04/20/2024, /02/2023, 10/17/2022, Additional history exists Pneumococcal Vaccine: 65+ Years (3 of 3 - PPSV23 or PCV20) 04/21/2025 04/11/2020, 08/05/2013 Postponed from 04/11/2021 (Patient Declined After Education) Zoster Vaccines (1 of 2) 04/21/2025 Pos tponed from 2004 (Patient Declined After Education) DTap/Tdap Vaccines (2 - Td or Tdap) 01/17/2026 01/18/2016, 03/15/2004 VITAMIN D LEVEL ONCE IN A LIFETIME-USE SMARTSET# [id number] Completed 12/18/2015, 02/09/2015, 06/29/2014, Additional history exists [...] encounter Medical Devices Implanted Type Area Gas Load Dispatcher Device Identifier Shelf Expiration Date Model / Serial / Lot Stent Carotid [id number] - [id number] Implanted:Qty: 1 on 08/23/2013 at OR [facility] Right: Carotid [facility] : VASCULAR DEVICES 02/21/2016 [id number] / / [id number] documented as of this encounter Visit Diagnoses Diagnosis Seizure, grand mal (HCC)- Primary Other convulsions documented in this encounter Advance Directives * [...] the patient have Health Care Power of International Recruiter? No * Full Code Date Activated Date Inactivated Comments 08/23/2013 8:39 AM 08/24/2013 2:49 PM This order r eflects the patients wishes and were consensually agreed upon. Care Teams Used Equipment Sales Representative Relationship Specialty Start Date End Date Terry Resendez MD [address] [place] [address] PCP - General 04/07/1996 documented as of this encounter
--- OUTSIDE RECORDS SUMMARY | 2024-06-12 18:39 | External Medical Summary | Summary of Care ---
Author Name Unknown Organization [facility] Address [address] [place] [address] Phone [phone] Care Team Providers Care Timber Treating Tank Operator Name Role Phone Sam Resendez MD Primary Care Provider [phone] Reason for Referral * Medication Prior Authorization - Pending Review Specialty Diagnoses / Procedures Referred By Kishore t Referred To Contact Diagnoses Chronic bilateral low back pain with right-sided sciatica Sam Resendez MD [address] [place] [address] Referral ID Status Reason Start Date Expiration Date V isits Requested Visits Authorized [id number] Pending Review 999 999 Reason for Visit * Reason Onset Date Comments Medication Refill 05/02/2024 Encounter Details Date Type Department Care Team (Late st Contact Info) Description 05/02/2024 Refill [facility] [address] [place] [phone] Sam Resendez MD [address] [place] [address] Chronic bilateral low back pain with right-sided sciatica Allergies Active Allergy Reactions Criticality Noted Date Comments Ciprofloxacin Hives 09/01/2017 Statins 11/15/2020 All statins Simvastatin 05/07/2006 Severe myalgia's documented as of this encounter (statuses as of 05/06/2024) Medications Medication Sig Dispensed Refills Start Date End Date Status ASPIRIN EC 81 MG PO TBECIndications:Esther horton atherosclerosis of [place] coronary artery Take one pill daily 100 [...] the morning. 30 Tablet 6 4 Active HYDROcodone-Acetamin ophen 5-325 MG Oral TabletIndications:Ch ronic bilateral low back pain with right-sided sciatica Take 1 Tablet by mouth 3 times a day as needed for Pain, Mild or Pain, Moderate. 30 day RX 90 Tablet 4 Active levETIRAcetam 500 MG Oral Tablet [...] 90 Tablet 4 05/02/20 24 Discontinu ed(Refill) Hospital, Clinic, [...] Miscellaneous Notes * Telephone Encounter - Ela Abraham, printing plate maker - 05/06/2024 9:53 AM EDT Please resend Rx to [id number] Confirmed pharmacy did not [...] RESENDEZ * Telephone Encounter - Rachel Purcell [facility] ED - 05/04/2024 5:21 AM EDT Pending Prescriptions: Disp Refills HYDROcodone-Acetaminophen 5-325 MG Oral Ta*90 Tab*0 Sig: Take 1 Tablet by mouth 3 times a day as needed for Pain, Mild or Pain, Moderate. 30 day RX * Telephone Encounter - Rachel Purcell [facility] - 05/04/2024 5:21 AM EDT I have reviewed the patients controlled substance dispensing history in the Prescription Drug Monitoring Program in compliance with the [facility] regulations before prescribing a controlled substance. [...] is due for refill: 05/02 Pharmacy: [id number] [...] approve if appropriate. Thank you, Rachel Purcell, PharmD. Clinical Pharmacist [facility] ([facility]) 05/04/2024, 5:21 AM documented in this encounter Plan of Treatment Upcoming Encounters Date Type Department Care Team (Late st Contact Info) Description 05/18/2024 4:30 PM EDT Imaging Radiology [facility] 1st [facility] [place] [address] [place] [address] 05/30/2024 12:30 PM EDT NeuroDiagnostic Study Neurophysiology [facility] [place] [address] [place] [address] Sp, Neurophys Tech [address] [place] [address] 06/02/2024 9:00 AM EDT NeuroDiagnostic Study Neurophysiology [facility] 200 [facility] [place] [address] Sp, Neurophys Tech [facility] [place] [address] 06/06/2024 3:30 PM EDT Office Visit Cardiology, [facility] [address] [place] [address] Nargis Power CRNP 132 [place] [address] 09/13/2024 9:15 AM EST Office Visit Urology, [facility] [address] [place] [address] Mauricio Ramos MD [address] [facility] [place] [address] 10/19/2024 2:00 PM EST Office Visit [facility] [address] [place] [phone] Sam Resendez MD [address] [place] [address] 11/04/2024 1:00 PM EDT Office Visit Neurology [facility] [place] [address] [facility] [place] [address] Elsie Capone MD 200 [place] [address] Scheduled Procedures Name Priority Associated Diagnoses Date/Ti me COLONOSCOPY FLEXIBLE PROXIMA L DIAGNOSTIC Recall History of colonic polyps Health Maintenance Due Date Last Done Comments DISCUSS TOBACCO CESSATION (REFER TO SMARTSET #2583) 1955 Alpha-1 Antitrypsin 1972 Cologuard 1999 Fecal [...] D LEVEL ONCE IN A LIFETIME-USE SMARTSET# [id number] Completed 12/18/2015, 02/09/2015, 06/29/2014, Additional history exists [...] this encounter Medical Devices Implanted Type Area Athletics Teacher Device Identifier Shelf Expiration Date Model / Serial / Lot Stent Carotid [id number] - [id number] Implanted:Qty: 1 on 08/23/2013 [place] [facility] Right: Carotid [facility] VASCULAR DEVICES 02/21/2016 [id number] / / [id number] documented as of this encounter Visit Diagnoses [...] the patient have Health Care Power of Head Mva Reactor Operator? No * Full Code Date Activated Date Inactivated Comments 08/23/2013 8:39 AM 08/24/2013 2:49 PM This order r eflects the patients wishes and were consensually agreed upon. Care Teams Timber Treating Tank Operator Relationship Specialty Start Date End Date Sam Resendez MD [address] [place] [address] PCP - General 04/07/1996 documented as of this encounter
--- OUTSIDE RECORDS SUMMARY | 2024-06-12 18:39 | External Medical Summary | Summary of Care ---
Author Name Unknown Organization [facility] Address [address] [place] [address] Phone [phone] Care Team Providers Care Graphic Arts Technician Name Role Phone Sam Resendez MD Primary Care Provider [phone] Reason for Visit * Reason Comments eRx-Medication Refill Encounter Details Date Type Department Care Team (Late st Contact Info) Description 04/26/2024 Refill [facility] [address] [place] [address] Sam Resendez MD [address] [place] [address] Seizure, grand mal ([facility]) Allergies Active Allergy Reactions Criticality Noted Date Comments Ciprofloxacin Hives 09/01/2017 Statins 11/15/2020 All statins Simvastatin 05/07/2006 Severe myalgia's documented as of this encounter (statuses as of 04/27/2024) Medications Medication Sig Dispensed Refills Start Date End Date Status ASPIRIN EC 81 MG PO TBECIndications:Cor onary atherosclerosis of [place] coronary artery Take one [...] 4 Active Finasteride 5 MG Oral Tablet (Proscar)Indication [...] Oral Tablet Extended Release 24 Hour (toPROL XL)Indications:Esther nary artery disease with exertional angina (HCC),HTN, goal below 140/90 25mg daily in AM and 12.5mg daily at bedtime 135 Tablet 3 4 Active amLODIPine Besylate 2.5 MG Oral Tablet (Norvasc)Indication s:HTN, goal below 140/90 Take 1 Tablet by mouth in the morning. 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 up to 3 doses in 15 minutes 25 Tablet 11 4 Active HYDROcodone-Acetami nophen 5-325 MG Oral TabletIndications:C hronic bilateral low back pain with right-sided sciatica Take 1 Tablet by mouth 3 times a day as needed for Pain, Mild or Pain, Moderate. 30 day RX 90 Tablet 4 Active Tamsulosin HCl 0.4 MG Oral Capsule (Flomax)Indications :Obstructive uropathy TAKE ONE CAPSULE BY MOUTH EVERY OTHER DAY 45 Capsule 1 4 Active Solifenacin Succinate 5 MG Oral Tablet (VESIcare) Take 1 Tablet by mouth in the morning. 30 Tablet 6 4 Active levETIRAcetam 500 MG Oral Tablet (Keppra)Indications :Seizure, grand mal (HCC) TAKE 1 TABLET BY MOUTH TWICE DAILY 180 Tablet 1 4 Active levETIRAcetam 500 MG Oral Tablet (Keppra)Indications :Seizure, grand mal (HCC) 1 twice a day (dose increase) 180 Tablet 1 4 04/27/20 24 Discontinued Hospital, Clinic, or Other Facility Administered Medication Ordered Dose Route Frequency Start Date End Date Status albuterol sulfate (PROVENTIL) (2.5 MG/3ML) 0.083% inhalation solution 2.5 mgIndications:COPD, severity to be determined (HCC) 2.5 mg NEBULIZER Q4H PRN 07/05/2019 Active documented as of this encounter (statuses as of 04/27/2024) Active Problems Problem Noted Date Diagnosed Date [...] as of this encounter (statuses as of 04/27/2024) Resolved Problems Problem Noted Date Diagnosed Date [...] as of this encounter (statuses as of 04/27/2024) Immunizations Name Administration Dates Next Due Pneumococcal [...] Telephone Encounter - Sam Resendez MD - 04/27/2024 1:20 PM EDTSigned Prescriptions: Disp Refills levETIRAcetam 500 MG Oral Tablet (Keppra) 180 Ta*1 Sig: TAKE 1 TABLET BY MOUTH TWICE DAILYAuthorizing Provider: SAM RESENDEZ * Telephone Encounter - Naomi Sun LPN - 04/27/2024 1:06 PM EDTPending Prescriptions: Disp Refills levETIRAcetam 500 MG Oral Tablet [Pharmacy*180 Ta*0 Sig: TAKE 1 TABLET BY MOUTH TWICE DAILY * Telephone Encounter - Devin Rocha - 04/26/2024 7:23 PM EDTPending Prescriptions: Disp Refills levETIRAcetam 500 MG Oral Tablet [Pharmacy*180 Ta*0 Sig: TAKE 1TABLET BY MOUTH TWICE DAILY documented in this encounter Plan of Treatment Upcoming Encounters Date Type Department Care Team (Late st Contact Info) Description 05/02/2024 3:40 PM EDT Office Visit Neurology [facility] [address] [facility] [place] [address] Elsie Capone MD 200 [facility] [place] [address] 06/06/2024 3:30 PM EDT Office Visit Cardiology, [facility] [address] [facility] [place] [address] Nargis Power CRNP 132 [facility] [place] [address] 09/13/2024 9:15 AM EST Office Visit Urology, [facility] 132 [place] [address] Mauricio Ramos MD 27 [facility] [place] [address] 10/19/2024 2:00 PM EST Office Visit [facility] [address] [place] [phone] Sam Resendez MD [address] [place] [address] Scheduled Procedures Name Priority Associated Diagnoses Date/Ti [...] D LEVEL ONCE IN A LIFETIME-USE SMARTSET# [id number] Completed 12/18/2015, 02/09/2015, 06/29/2014, Additional history exists [...] encounter Medical Devices Implanted Type Area Supervisor Telephone Answering Service Device Identifier Shelf Expiration Date Model / Serial / Lot Stent Carotid 8-6x30 [id number] - [id number] Implanted:Qty: 1 on 08/23/2013 at OR [facility] [place] Right: Carotid [facility] : VASCULAR DEVICES 02/21/2016 [id number] / / [id number] documented as of this encounter Visit Diagnoses Diagnosis Seizure, grand mal (HCC) Other convulsions documented in this encounter Advance [...] the patient have Health Care Power of Dip Brazier? No * Full Code Date Activated Date Inactivated Comments 08/23/2013 8:39 AM 08/24/2013 2:49 PM This order r eflects the patients wishes and were consensually agreed upon. Care Teams Graphic Arts Technician Relationship Specialty Start Date End Date Sam Resendez MD [address] [facility] [place] [address] PCP - General 04/07/1996 documented as of this encounter
--- OUTSIDE RECORDS SUMMARY | 2024-06-12 18:39 | External Medical Summary | Summary of Care ---
Author Name Unknown Organization [facility] Address [address] [place] [address] Phone [phone] Care Team Providers Care Harness Puller Name Role Phone Sam Resendez MD Primary Care Provider [phone] Reason for Visit * Reason Onset Date Comments Medication Refill 06/02/2024 Encounter Details Date Type Department Care Team (Late st Contact Info) Description 06/02/2024 Refill [place] [address] [place] [address] Sam Resendez MD [address] [place] [address] Chronic bilateral low back pain with right-sided sciatica Allergies Active Allergy Reactions Criticality Noted Date Comments Ciprofloxacin Hives 09/01/2017 Statins 11/15/2020 All statins Simvastatin 05/07/2006 Severe myalgia's documented as of this encounter (statuses as of 06/03/2024) Medications Medication Sig Dispensed Refills Start Date End Date Status ASPIRIN EC 81 MG PO TBECIndications:Esther nary atherosclerosis of [place] coronary artery Take [...] Moderate. 30 day RX 90 Tablet 4 06/02/20 24 Discontinu ed(Refill) Hospital, Clinic, or Other Facility Administered Medication Ordered Dose Route Frequency Start Date End Date Status albuterol sulfate (PROVENTIL) (2.5 MG/3ML) 0.083% inhalation solution 2.5 mgIndications:COPD, severity to be determined (HCC) 2.5 mg NEBULIZER Q4H PRN 07/05/2019 Active documented as of this encounter (statuses as of 06/03/2024) Active Problems Problem Noted Date Diagnosed Date [...] as of this encounter (statuses as of 06/03/2024) Resolved Problems Problem Noted Date Diagnosed Date [...] as of this encounter (statuses as of 06/03/2024) Immunizations Name Administration Dates Next Due Pneumococcal [...] Telephone Encounter - Sam Resendez MD - 06/03/2024 2:25 PM EDTSigned Prescriptions: Disp Refills HYDROcodone-Acetaminophen 5-325 MG Oral Ta*90 Tab*0 Sig: Take 1 Tablet by mouth 3 times a day as needed for Pain, Mild or Pain, Moderate. 30 day RX Authorizing Provider: SAM RESENDEZ * Telephone Encounter - Paulino Molina [facility] - 06/03/2024 12:26 PM EDT Pending Prescriptions: Disp Refills HYDROcodone-Acetaminophen 5-325 MG Oral Ta*90 Tab*0 Sig: Take 1 Tablet by mouth 3 times a day as needed for Pain, Mild or Pain, Moderate. 30 day RX * Telephone Encounter - Paulino Molina [facility] - 06/03/2024 12:24 PM EDT I have reviewed the patients controlled substance dispensing history in the Prescription Drug Monitoring Program in compliance with the [facility] regulations before prescribing a controlled substance. PDMP checked on 06/03/2024. Pending Prescriptions: Disp Refills HYDROcodone-Acetaminophen 5-325 MG Oral T*90 Tab*0 Sig: Take 1 Tablet by mouth 3 times a day as needed for Pain, Mild or Pain, Moderate. 30 day RX Last Visit: 04/15/2024 (in office), Visit date not found (telemedicine) Next Visit: 10/19/2024 Date medication was last filled: 05/06/2024 Date medication is due for refill: 05/19/2024 Pharmacy: [id number] [address] Is this [...] Review. Please approve if appropriate. Thank You, Paulino Molina, Pharm-D Clinical Pharmacist Centralized Clinical Pharmacy Services (CCPS) [phone] 06/03/2024, 12:25 PM documented in this encounter Plan of Treatment Upcoming Encounters Date Type Department Care Team (Late st Contact Info) Description 06/06/2024 3:30 PM EDT Office Visit Cardiology, [facility] [address] [place] [place] [address] Nargis Power CRNP [address] [place] [address] 09/13/2024 9:15 AM EST Office Visit Urology, [facility] [address] [place] [address] Mauricio Ramos MD [address] [place] [address] 10/19/2024 2:00 PM EST Office Visit [facility] [address] [facility] [place] [address] Sam Resendez MD [address] [place] [address] 11/04/2024 1:00 PM EDT Office [facility] 200 [facility] [place] [address] Elsie Capone MD 200 [facility] [place] [address] Scheduled Procedures Name Priority Associated Diagnoses Date/Ti me COLONOSCOPY FLEXIBLE PROXIMA L DIAGNOSTIC Recall History of colonic polyps Health Maintenance Due Date Last Done Comments DISCUSS TOBACCO CESSATION (REFER TO SMARTSET #2201) 1954 Alpha-1 Antitrypsin 1972 Cologuard 1999 Fecal [...] 10/16/2021, Additional history exists B-12 04/20/2025 04/20/2024, 0302/2023, 10/17/2022, Additional history exists Pneumococcal Vaccine: 65+ Years (3 of 3 - PPSV23 or PCV20) 04/21/2025 04/11/2020, 08/05/2013 Postponed from 04/11/2021 (Patient Declined After Education) Zoster Vaccines (1 of 2) 04/21/2025 Pos tponed from 2004 (Patient Declined After Education) DTap/Tdap Vaccines (2 - Td or Tdap) 01/17/2026 01/18/2016, 03/15/2004 VITAMIN D LEVEL ONCE IN A LIFETIME-USE SMARTSET# [id number] Completed 12/18/2015, 02/09/2015, 06/29/2014, Additional history exists [...] this encounter Medical Devices Implanted Type Area Internal Medicine Veterinary Technician Device Identifier Shelf Expiration Date Model / Serial / Lot Stent Carotid 8-6x30 [id number] - [id number] Implanted:Qty: 1 on 08/23/2013 at OR [facility] [place] Right: Carotid [facility] : VASCULAR DEVICES 02/21/2016 [id number] / / [id number] documented as of this encounter Visit Diagnoses [...] the patient have Health Care Power of Car Head Liner Installer? No * Full Code Date Activated Date Inactivated Comments 08/23/2013 8:39 AM 08/24/2013 2:49 PM This order r eflects the patients wishes and were consensually agreed upon. Care Teams Harness Puller Relationship Specialty Start Date End Date Sam Resendez MD [address] [place] [address] PCP - General 04/07/1996 documented as of this encounter
--- OUTSIDE RECORDS SUMMARY | 2024-06-12 18:39 | External Medical Summary | Summary of Care ---
Author Name Unknown Organization [facility] Address [address] [place] [address] Phone [phone] Care Team Providers Care Rate Analyst Name Role Phone Sam Resendez MD Primary Care Provider [phone] Reason for Referral * Medication Prior Authorization - Pending Review Specialty Diagnoses / Procedures Referred By Kishore t Referred To Contact Diagnoses Chronic bilateral low back pain with right-sided sciatica Sam Resendez MD [address] [place] [address] Referral ID Status Reason Start Date Expiration Date V isits Requested Visits Authorized [id number] Pending Review 999 999 Reason for Visit * Reason Onset Date Comments Medication Refill 05/02/2024 Encounter Details Date Type Department Care Team (Late st Contact Info) Description 05/02/2024 Refill [facility] [address] [place] [phone] Sam Resendez MD [address] [place] [address] Chronic bilateral low back pain with right-sided sciatica Allergies Active Allergy Reactions Criticality Noted Date Comments Ciprofloxacin Hives 09/01/2017 Statins 11/15/2020 All statins Simvastatin 05/07/2006 Severe myalgia's documented as of this encounter (statuses as of 05/04/2024) Medications Medication Sig Dispensed Refills Start Date End Date Status ASPIRIN EC 81 MG PO TBECIndications:Esther horton atherosclerosis of [place] coronary artery Take [...] as of this encounter (statuses as of 05/04/2024) Active Problems Problem Noted Date Diagnosed Date [...] as of this encounter (statuses as of 05/04/2024) Resolved Problems Problem Noted Date Diagnosed Date [...] as of this encounter (statuses as of 05/04/2024) Immunizations Name Administration Dates Next Due Pneumococcal [...] RESENDEZ * Telephone Encounter - Rachel Purcell [facility] - 05/04/2024 5:21 AM EDT Pending Prescriptions: Disp Refills HYDROcodone-Acetaminophen 5-325 MG Oral Ta*90 Tab*0 Sig: Take 1 Tablet by mouth 3 times a day as needed for Pain, Mild or Pain, Moderate. 30 day RX * Telephone Encounter - Rachel Purcell RPh - 05/04/2024 5:21 AM EDT I have reviewed the patients controlled substance dispensing history in the Prescription Drug Monitoring Program in compliance with the [facility] regulations before prescribing a controlled substance. PDMP [...] medication is due for refill: 05/02 Pharmacy: [id number] [address] [...] Description 05/18/2024 4:30 PM EDT Imaging Radiology [address], [address] [place] [address] 05/30/2024 12:30 PM EDT NeuroDiagnostic Study Neurophysiology [facility] [place] [address] [place] [address] Sp, Neurophys Tech [address] [place] [address] [address] 06/02/2024 9:00 AM EDT NeuroDiagnostic Study Neurophysiology [facility] [place] [address] [place] [address] [address] Sp, Neurophys Tech [address] [place] [address] [address] 06/06/2024 3:30 PM EDT Office Visit Cardiology, [facility] [address] [place] [address] Nargis Power CRNP 132 [place] [address] 09/13/2024 9:15 AM EST Office Visit Urology, [facility] [address] [place] [address] Mauricio Ramos MD 27 [facility] [place] [address] 10/19/2024 2:00 PM EST Office Visit [address] [phone] Sam Resendez MD [address] [place] [address] 11/04/2024 1:00 PM EDT Office Visit Neurology [facility] [place] [address] [place] [address] [address] Elsie Capone MD 200 [facility] [place] [address] Scheduled Procedures Name Priority Associated Diagnoses Date/Ti me COLONOSCOPY FLEXIBLE PROXIMA L DIAGNOSTIC Recall History of colonic polyps Health Maintenance Due Date Last Done Comments DISCUSS TOBACCO CESSATION (REFER TO SMARTSET #2187) 1954 Alpha-1 Antitrypsin 1972 Cologuard 1999 Fecal [...] D LEVEL ONCE IN A LIFETIME-USE SMARTSET# [id number] Completed 12/18/2015, 02/09/2015, 06/29/2014, Additional history exists [...] this encounter Medical Devices Implanted Type Area Petroleum Transport Driver Device Identifier Shelf Expiration Date Model / Serial / Lot Stent Carotid 8-6x30 [id number] - [id number] Implanted:Qty: 1 on 08/23/2013 at OR [facility] [place] Right: Carotid [facility] : VASCULAR DEVICES 02/21/2016 [id number] / / [id number] documented as of this encounter Visit Diagnoses [...] the patient have Health Care Power of Vegetable Packer? No * Full Code Date Activated Date Inactivated Comments 08/23/2013 8:39 AM 08/24/2013 2:49 PM This order r eflects the patients wishes and were consensually agreed upon. Care Teams Rate Analyst Relationship Specialty Start Date End Date Sam Resendez MD [address] [place] [address] PCP - General 04/07/1996 documented as of this encounter
--- OUTSIDE RECORDS SUMMARY | 2024-06-12 18:39 | External Medical Summary | Summary of Care ---
Author Name Unknown Organization [facility] Address [address] [place] [address] Phone [phone] Care Team Providers Care Christian Science Healer Name Role Phone Sam Resendez MD Primary Care Provider [phone] Reason for Referral * Medication Prior Authorization - Pending Review Specialty Diagnoses / Procedures Referred By Kishore t Referred To Contact Diagnoses Chronic bilateral low back pain with right-sided sciatica Sam Resendez MD [address] [place] [address] Referral ID Status Reason Start Date Expiration Date V isits Requested Visits Authorized [id number] Pending Review 999 999 Reason for Visit * Reason Onset Date Comments Medication Refill 05/02/2024 Encounter Details Date Type Department Care Team (Late st Contact Info) Description 05/02/2024 Refill [facility] [address] [place] [phone] Sam Resendez MD [address] [place] [address] Chronic bilateral low back pain with right-sided sciatica Allergies Active Allergy Reactions Criticality Noted Date Comments Ciprofloxacin Hives 09/01/2017 Statins 11/15/2020 All statins Simvastatin 05/07/2006 Severe myalgia's documented as of this encounter (statuses as of 05/06/2024) Medications Medication Sig Dispensed Refills Start Date End Date Status ASPIRIN EC 81 MG PO TBECIndications:Esther horton atherosclerosis of [place] coronary artery Take one pill daily 100 [...] encounter Miscellaneous Notes * Telephone Encounter - Donna Samson [facility] - 05/06/2024 9:58 AM EDT [id number] [address] Confirmed pharmacy did not receive original prescription. I have reviewed the patients controlled substance dispensing history in the Prescription Drug Monitoring Program in compliance with the [facility] regulations before prescribing a controlled [...] medication is due for refill: 05/02/24 Pharmacy: [id number] [address] Is this [...] in Results Review. Please approve if appropriate. Donna Wright [facility] Clinical Pharmacist Centralized Clinical Pharmacy Services (CCPS) [phone] * Telephone Encounter - Ela Abraham CPhT - 05/06/2024 9:53 AM EDT Please resend Rx to [id number] [address]. Confirmed pharmacy [...] Telephone Encounter - Rachel Purcell [facility] - 05/04/2024 5:21 AM EDT Pending Prescriptions: Disp Refills HYDROcodone-Acetaminophen 5-325 MG Oral Ta*90 Tab*0 Sig: Take 1 Tablet by mouth 3 times a day as needed for Pain, Mild or Pain, Moderate. 30 day RX * Telephone Encounter - Rachel Purcell [facility] - 05/04/2024 5:21 AM EDT I have reviewed the patients controlled substance dispensing history in the Prescription Drug Monitoring Program in compliance with the [facility] regulations before prescribing a controlled [...] is due for refill: 05/02 Pharmacy: [id number] [address] [...] Description 05/18/2024 4:30 PM EDT Imaging Radiology [address], [address] [place] [address] 05/30/2024 12:30 PM EDT NeuroDiagnostic Study Neurophysiology [facility] [address] [place] [address] Sp, Neurophys Tech [address] [facility] [place] [address] 06/02/2024 9:00 AM EDT NeuroDiagnostic Study Neurophysiology [facility] [address] [place] [address] Sp, Neurophys Tech [address] [facility] [place] [address] 06/06/2024 3:30 PM EDT Office Visit Cardiology, [facility] 132 [facility] [place] [address] Nargis Power CRNP 132 [facility] [place] [address] 09/13/2024 9:15 AM EST Office Visit Urology, [facility] [place] [address] Mauricio Ramos MD 27 [facility] [place] [address] 10/19/2024 2:00 PM EST Office Visit [facility] [address] [place] [phone] Sam Resendez MD [address] [place] [address] 11/04/2024 1:00 PM EDT Office Visit Neurology [facility] [address] [place] [address] Elsie Capone MD [address] [place] [address] Scheduled Procedures Name Priority Associated Diagnoses Date/Ti me COLONOSCOPY FLEXIBLE PROXIMA L DIAGNOSTIC Recall History of colonic polyps Health Maintenance Due Date Last Done Comments DISCUSS TOBACCO CESSATION (REFER TO SMARTSET #5321) 1954 Alpha-1 Antitrypsin 1972 Cologuard 1999 Fecal [...] D LEVEL ONCE IN A LIFETIME-USE SMARTSET# [id number] Completed 12/18/2015, 02/09/2015, 06/29/2014, Additional history exists [...] this encounter Medical Devices Implanted Type Area Brim Setter Device Identifier Shelf Expiration Date Model / Serial / Lot Stent Carotid 8-6x30 [id number] - [id number] Implanted:Qty: 1 on 08/23/2013 at [place] [facility] [place] Right: Carotid [facility] : VASCULAR DEVICES 02/21/2016 [id number] / / [id number] documented as of this encounter Visit Diagnoses [...] the patient have Health Care Power of Nerve Specialist? No * Full Code Date Activated Date Inactivated Comments 08/23/2013 8:39 AM 08/24/2013 2:49 PM This order r eflects the patients wishes and were consensually agreed upon. Care Teams Christian Science Healer Relationship Specialty Start Date End Date Sam Resendez MD [address] [facility] [place] [address] PCP - General 04/07/1996 documented as of this encounter
--- OUTSIDE RECORDS SUMMARY | 2024-06-12 18:39 | External Medical Summary | Summary of Care ---
Author Name Unknown Organization [facility] Address [address] [place] [address] Phone [phone] Care Team Providers Care Pleating Machine Operator Name Role Phone Terry Resendez MD Primary Care Provider [phone] Reason for Visit * Reason Comments eRx-Medication Refill Encounter Details Date Type Department Care Team (Late st Contact Info) Description 05/04/2024 Refill [facility] [address] [place] [address] Terry Resendez MD [address] [place] [address] Chronic bilateral low back pain with right-sided sciatica Allergies Active Allergy Reactions Criticality Noted Date Comments Ciprofloxacin Hives 09/01/2017 Statins 11/15/2020 All statins Simvastatin 05/07/2006 Severe myalgia's documented as of this encounter (statuses as of 05/06/2024) Medications Medication Sig Dispensed Refills Start Date End Date Status ASPIRIN EC 81 MG PO TBECIndications:Coron johan atherosclerosis of [place] coronary artery Take one pill daily 100 [...] Pain. As needed 30 Tab 06/15/2018 Active Omeprazole 20 MG Oral Capsule Delayed Release (PriLOSEC) TAKE 1 CAPSULE BY MOUTH EVERY MORNING 90 Capsule 3 07/27/2023 Active amLODIPine Besylate 5 MG Oral Tablet (Norvasc) Take 1 Tablet by mouth in the morning. 90 Tablet 3 07/30/2023 Active Lasmiditan Succinate 50 MG Oral Tablet (Reyvow) Take one at onset of migraine. Max 1 dose in 24hours 10 Tablet 5 08/25/2023 Active Isosorbide Mononitrate ER 60 MG Oral Tablet Extended Release 24 Hour (Imdur)Indications:Ex ertional angina (HCC) Take 1 Tablet by mouth in the morning. 90 Tablet 3 08/26/2023 Active Clopidogrel Bisulfate 75 MG Oral Tablet (pLAVix)Indications:A cute ischemic stroke (HCC) Take 1 Tablet by mouth in the morning. 90 Tablet 3 10/16/2023 Active Finasteride 5 MG Oral Tablet (Proscar)Indications: Uropathy, obstructive Take 1 Tablet by mouth in [...] Active Ondansetron HCl 4 MG Oral Tablet (Zofran)Indications:N ausea without vomiting TAKE ONE TABLET BY MOUTH EVERY 6 HOURS NEEDED FOR NAUSEA. 30 Tablet 12/16/2023 Active Metoprolol Succinate ER 25 MG Oral Tablet Extended Release 24 Hour (toPROL XL)Indications:Fischer ry artery disease with exertional angina (HCC),HTN, goal below 140/90 25mg daily in AM and 12.5mg daily at bedtime 135 Tablet 3 03/21/2024 Active amLODIPine Besylate 2.5 MG Oral Tablet (Norvasc)Indications: HTN, goal below 140/90 Take 1 Tablet by mouth in the morning. 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 up to 3 doses in 15 minutes 25 Tablet 11 03/21/2024 Active Tamsulosin HCl 0.4 MG Oral Capsule (Flomax)Indications:O bstructive uropathy TAKE ONE CAPSULE BY MOUTH EVERY OTHER DAY 45 Capsule 1 04/20/2024 Active Solifenacin Succinate 5 MG Oral Tablet (VESIcare) Take 1 Tablet by mouth in the morning. 30 Tablet 6 04/26/2024 Active HYDROcodone-Acetamino phen 5-325 MG Oral TabletIndications:Chr onic bilateral low back pain with right-sided sciatica Take 1 Tablet by mouth 3 times a day as needed for Pain, Mild or Pain, Moderate. 30 day RX 90 Tablet 05/04/2024 Active levETIRAcetam 500 MG Oral Tablet (Keppra)Indications:S eizure, grand mal (HCC) 1 in the morning 2 in the evening 270 Tablet 1 05/02/2024 Active Hospital, Clinic, or Other Facility Administered [...] encounter Miscellaneous Notes * Telephone Encounter - Nivia Oquendo, [facility] - 05/06/2024 8:54 AM EDT Refused Prescriptions: Disp Refills HYDROcodone-Acetaminophen 5-325 MG Oral Ta*90 Tab*0 Sig: TAKE 1TABLET BY MOUTH THREE TIMES DAILY IF NEEDED FOR PAINRefused By: NIVIA OQUENDO for Refusal: Duplicate Request * Telephone Encounter - Nivia Oquendo RPh - 05/06/2024 8:53 AM EDT E-Prescribing Status: Receipt confirmed by pharmacy (05/06/2024 8:54 AM EDT) documented in this encounter Plan of Treatment Upcoming Encounters Date Type Department Care Team (Late st Contact Info) Description 05/18/2024 4:30 PM EDT Imaging Radiology [address] [address] 05/30/2024 12:30 PM EDT NeuroDiagnostic Study Neurophysiology [facility] [address] [place] [address] Sp, Neurophys Tech [address] [place] [address] 06/02/2024 9:00 AM EDT NeuroDiagnostic Study Neurophysiology [facility] [address] [place] [address] Sp, Neurophys Tech [address] [place] [address] 06/06/2024 3:30 PM EDT Office Visit Cardiology, [address] [place] [address] Nargis Power CRNP [address] [place] [address] 09/13/2024 9:15 AM EST Office Visit [facility], [facility] [place] [address] Mauricio Ramos MD [address] [place] [address] 10/19/2024 2:00 PM EST Office Visit Family [facility] [address] [place] [phone] Terry Resendez MD [address] [place] [address] 11/04/2024 1:00 PM EDT Office Visit Neurology [facility] 200 [facility] [place] [address] Elsie Capone MD 200 [facility] [place] [address] Scheduled Procedures Name Priority Associated Diagnoses Date/Ti [...] D LEVEL ONCE IN A LIFETIME-USE SMARTSET# [id number] Completed 12/18/2015, 02/09/2015, 06/29/2014, Additional history exists [...] this encounter Medical Devices Implanted Type Area Mental Hygienist Device Identifier Shelf Expiration Date Model / Serial / Lot Stent Carotid [id number] [id number] - [id number] Implanted:Qty: 1 on 08/23/2013 at OR [facility] Right: Carotid [facility] : VASCULAR DEVICES 02/21/2016 [id number] / / [id number] documented as of this encounter Visit Diagnoses [...] the patient have Health Care Power of Lending Advisor? No * Full Code Date Activated Date Inactivated Comments 08/23/2013 8:39 AM 08/24/2013 2:49 PM This order r eflects the patients wishes and were consensually agreed upon. Care Teams Pleating Machine Operator Relationship Specialty Start Date End Date Terry Resendez MD [address] [place] [address] PCP - General 04/07/1996 documented as of this encounter
--- OUTSIDE RECORDS SUMMARY | 2024-06-12 18:39 | External Medical Summary | Summary of Care ---
Author Name Unknown Organization [facility] Address [address] [place] [address] Phone [phone] Care Team Providers Care Rotary Driller Name Role Phone Terry Resendez MD Primary Care Provider [phone] Reason for Visit * Reason Onset Date Comments Appointment 05/16/2024 Encounter Details Date Type Department Care Team (Late st Contact Info) Description 05/16/20[address] [place] [address] Erica Martinez, RT (R) Appointment Allergies Active Allergy Reactions Criticality Noted Date Comments Ciprofloxacin Hives 09/01/2017 Statins 11/15/2020 All statins Simvastatin 05/07/2006 Severe myalgia's documented as of this encounter (statuses as of 05/16/2024) Medications Medication Sig Dispensed Refills Start Date End Date Status ASPIRIN EC 81 MG PO TBECIndications:Coron johan atherosclerosis of [place] coronary artery Take one pill daily 100 [...] the morning. 30 Tablet 6 04/26/2024 Active levETIRAcetam 500 MG Oral Tablet (Keppra)Indications:S eigrand keshav ayala (HCC) 1 in the morning 2 in the evening 270 Tablet 1 05/02/2024 Active HYDROcodone-Acetamino phen 5-325 MG Oral TabletIndications:Chr onic bilateral low back pain with right-sided sciatica Take 1 Tablet by mouth 3 times a day as needed for Pain, Mild or Pain, Moderate. 30 day RX 90 Tablet 05/06/2024 Active Hospital, Clinic, or Other Facility Administered Medication Ordered Dose Route Frequency Start Date End Date Status albuterol sulfate (PROVENTIL) (2.5 MG/3ML) 0.083% inhalation solution 2.5 mgIndications:COPD, severity to be determined (HCC) 2.5 mg NEBULIZER Q4H PRN 07/05/2019 Active documented as of this encounter (statuses as of 05/16/2024) Active Problems Problem Noted Date Diagnosed Date [...] as of this encounter (statuses as of 05/16/2024) Resolved Problems Problem Noted Date Diagnosed Date [...] as of this encounter (statuses as of 05/16/2024) Immunizations Name Administration Dates Next Due Pneumococcal [...] encounter Miscellaneous Notes * Telephone Encounter - Erica Martinez, RT (R) - 05/16/2024 2:40 PM EDT Name: Patel León Do you have any of the following: Pacemaker, stents, heart valves, aneurysm clips? Yes CAROTID STENT Have you ever worked with metal or have you ever gotten metal in your eyes? No Have you had a colonoscopy in the last 30 days? No On dialysis? No Do you have any dermals or body piercing's? No or ? Do you wear an insulin pump or diabetic monitor? NO RT Daniel (R) documented in this encounter Plan of Treatment Upcoming Encounters Date Type Department Care Team (Late st Contact Info) Description 05/18/2024 4:30 PM EDT Imaging Radiology [facility] 132 [facility] [place] [address] 05/30/2024 12:30 PM EDT NeuroDiagnostic Study Neurophysiology [facility] [place] [address] Sp, Neurophys Tech [address] [facility] [place] [address] 06/02/2024 9:00 AM EDT NeuroDiagnostic Study Neurophysiology [facility] [address] [facility] [place] [address] Sp, Neurophys Tech [address] [facility] [place] [address] 06/06/2024 3:30 PM EDT Office Visit Cardiology, [facility] 132 [facility] [place] [address] Nargis Power CRNP [address] [place] [address] 09/13/2024 9:15 AM EST Office Visit Urology, [facility] 132 [facility] [place] [address] Mauricio Ramos MD [address] [place] [address] 10/19/2024 2:00 PM EST Office Visit [facility] [address] [place] [address] Terry Resendez MD [address], [place] [id number] 11/04/2024 1:00 PM EDT Office Visit Neurology [facility] [address] [facility] [place] [address] Elsie Capone MD [address] [facility] [place] [address] Scheduled Procedures Name Priority Associated Diagnoses Date/Ti [...] D LEVEL ONCE IN A LIFETIME-USE SMARTSET# [id number] Completed 12/18/2015, 02/09/2015, 06/29/2014, Additional history exists [...] this encounter Medical Devices Implanted Type Area Ferry Pilot Device Identifier Shelf Expiration Date Model / Serial / Lot Stent Carotid 8-6x30 [id number] - [id number] Implanted:Qty: 1 on 08/23/2013 at OR [facility] [place] Right: Carotid [facility] : VASCULAR DEVICES 02/21/2016 [id number] / / [id number] documented as of this encounter Advance Directives [...] patient have Health Care Power of Supervisor [employer]? No * Full Code Date Activated Date Inactivated Comments 08/23/2013 8:39 AM 08/24/2013 2:49 PM This order r eflects the patients wishes and were consensually agreed upon. Care Teams Rotary Driller Relationship Specialty Start Date End Date Terry Resendez MD [address] [place] [address] PCP - General 04/07/1996 documented as of this encounter
--- OUTSIDE RECORDS SUMMARY | 2024-06-12 18:40 | External Medical Summary ---
Author Name Unknown Address Unknown Organization K01:[facility] [address] [place] [address] Laboratory Report Ordering Provider Test Date Status ANETA VARGAS 04/20/2024 08:51:21 Final Observation Date Value Abnormality Reference (Units ) Status Vitamin B12 04/20/2024 08:51:21 [phone] (pg/mL) Final Performing Location [facility] [address] [place] [address]
--- OUTSIDE RECORDS SUMMARY | 2024-06-12 18:40 | External Medical Summary | Summary of Care ---
Author Name Unknown Organization [facility] Address [address] [place] [address] Phone [phone] Care Team Providers Care Balance Screwhead Polisher Name Role Phone Terry Resendez MD Primary Care Provider [phone] Reason for Visit * Reason Comments Outpatient Testing Encounter Details Date Type Department Care Team (Late st Contact Info) Description 04/20/2024 8:50 AM EDT Laboratory Laboratory, [place] [address] [place] [address] [facility] [address] [place] [address] Diabetes mellitus with peripheral angiopathy (HCC); Encounter for long-term (current) use of other medications; Facial swelling Allergies Active Allergy Reactions Criticality Noted Date Comments Ciprofloxacin Hives 09/01/2017 Statins 11/15/2020 All statins Simvastatin 05/07/2006 Severe myalgia's documented as of this encounter (statuses as of 04/20/2024) Medications Medication Sig Dispensed Refills Start Date End Date Status ASPIRIN EC 81 MG PO TBECIndications:Coron johan atherosclerosis of [place] coronary artery Take one pill daily 100 [...] Pain. As needed 30 Tab 06/15/2018 Active Tamsulosin HCl 0.4 MG Oral Capsule [...] 08/26/2023 Active levETIRAcetam 500 MG Oral Tablet (Keppra)Indications:S eizure, grand mal (HCC) 1 twice a day [...] 15 minutes 25 Tablet 11 03/21/2024 Active HYDROcodone-Acetamino phen 5-325 MG Oral TabletIndications:Chr onic bilateral low back pain with right-sided sciatica Take 1 Tablet by mouth 3 times a day as needed for Pain, Mild or Pain, Moderate. 30 day RX 90 Tablet 04/03/2024 Active Hospital, Clinic, or Other Facility Administered Medication Ordered Dose Route Frequency Start Date End Date Status albuterol sulfate (PROVENTIL) (2.5 MG/3ML) 0.083% inhalation solution 2.5 mgIndications:COPD, severity to be determined (HCC) 2.5 mg NEBULIZER Q4H PRN 07/05/2019 Active documented as of this encounter (statuses as of 04/20/2024) Active Problems Problem Noted Date Diagnosed Date [...] as of this encounter (statuses as of 04/20/2024) Resolved Problems Problem Noted Date Diagnosed Date [...] as of this encounter (statuses as of 04/20/2024) Immunizations Name Administration Dates Next Due Pneumococcal [...] Team (Late st Contact Info) Description 04/26/2024 8:15 AM EDT Office Visit Urology, [facility] [address] [place] [address] Mauricio Ramso MD [address] [place] [address] 05/02/2024 3:40 PM EDT Office Visit Neurology [facility] 200 [facility] [place] [address] Elsie Capone MD 200 [facility] [place] [address] 06/06/2024 3:30 PM EDT Office Visit Cardiology, [facility] [address] [place] [address] Nargis Power CRNP 132 [place] [address] 10/19/2024 2:00 PM EST Office Visit [facility] [address] [place] [phone] Terry Resendez MD [address] [place] [address] Pending Results Name Type Priority Associated Diagnoses Date /Time HEMOGLOBIN A1C Lab Routine Diabetes mellitus with peripheral angiopathy (HCC) 04/20/2024 8:51 AM EDT VITAMIN B12 Lab Routine Encounter for long-term (current) use of other medications 04/20/2024 8:51 AM EDT CORTISOL Lab Routine Facial swelling 04/20/2024 8:51 AM EDT ALBUMIN / CREATININE RATIO, URINE Lab Routine Diabetes mellitus with peripheral angiopathy (HCC) 04/20/2024 8:51 AM EDT Scheduled Procedures Name Priority Associated Diagnoses Date/Ti me COLONOSCOPY FLEXIBLE PROXIMA L DIAGNOSTIC Recall History of colonic polyps Health Maintenance Due Date Last Done Comments DISCUSS TOBACCO CESSATION (REFER TO SMARTSET #6863) 1954 Alpha-1 Antitrypsin 1972 Cologuard 1999 Fecal Occult Blood Test 1999 10/04/1998 Sigmoidoscopy 1999 *COPD SEVERITY VERIFIED BY PFT 08/22/2015 DXA Scan 11/27/2017 11/28/2015 *BISPHONATE OR OTHER ACCEPTABLE MEDICATION NEEDED FOR OSTEOPOROSIS (REFER TO SMARTSET #1146) 06/14/2018 Adult Wellness Visit 2020 Depression Monitoring 06/13/2021 06/13/2020 Colonoscopy 04/05/2022 04/05/2019, 03/24, 01/15/2016, Additional history exists COVID-19 Vaccine ( season) 2023 Albumin/Creatinine Ratio 10/17/2023 023, 10/16/2021, 10/11/2019, Additional history exists HbA1c 11/16/2023 05/18/2023, 09/25, 10/16/2021, Additional history exists B-12 11/18/2023 11/17/2022, 09/25, 10/16/2021, Additional history exists Influenza Vaccine (FLU shot) (#1) 2024 06/19/2017, 06/27/2015, 06/29/2014, Additional history exists Diabetic Eye Exam 05/16/2024 01/29/2021 Postponed from 01/29/2022 (Patient Declined After Education) GFR 11/17/2024 11/18/2023, 04/25, 01/29/2023, Additional history exists O2 ASSESSMENT COMPLETED IN PAST YEAR FOR COPD 12/30/2024 12/31/2023 Diabetic Foot Exam 04/08/2025 10/17/2022, 0 09/05/2020, 10/11/2019, Additional history exists Postponed from 10/17/2023 (Patient Declined After Education) Colorectal Cancer Screening 04/15/2025 Postponed from 1999 (Patient Declined After Education) Pneumococcal Vaccine: 65+ Years (3 of 3 - PPSV23 or PCV20) 04/21/2025 04/11/2020, 08/05/2013 Postponed from 04/11/2021 (Patient Declined After Education) Zoster Vaccines (1 of 2) 04/21/2025 Pos tponed from 2004 (Patient Declined After Education) DTap/Tdap Vaccines (2 - Td or Tdap) 01/17/2026 01/18/2016, 03/15/2004 VITAMIN D LEVEL ONCE IN A LIFETIME-USE SMARTSET# [id number] Completed 12/18/2015, 02/09/2015, 06/29/2014, Additional history exists [...] this encounter Medical Devices Implanted Type Area Heel Seam Rubber Device Identifier Shelf Expiration Date Model / Serial / Lot Stent Carotid [id number] [id number] - [id number] Implanted:Qty: 1 on 08/23/2013 at OR [facility] [place] Right: Carotid [facility] : VASCULAR DEVICES 02/21/2016 [id number] / / [id number] documented as of this encounter Visit Diagnoses Diagnosis Diabetes mellitus with peripheral angiopathy (HCC) Type II or unspecified type diabetes mellitus with peripheral circulatory disorders, not stated as uncontrolled Encounter for long-term (current) use of other medications Facial swelling Swelling, mass, or lump in head and neck documented in this encounter Advance Directives * [...] the patient have Health Care Power of Marketing Account Manager? No * Full Code Date Activated Date Inactivated Comments 08/23/2013 8:39 AM 08/24/2013 2:49 PM This order r eflects the patients wishes and were consensually agreed upon. Care Teams Balance Screwhead Polisher Relationship Specialty Start Date End Date Terry Resendez MD [address] [place] [address] PCP - General 04/07/1996 documented as of this encounter
--- OUTSIDE RECORDS SUMMARY | 2024-06-12 18:40 | External Medical Summary | Summary of Care ---
Author Name Unknown Organization [facility] Address [address] [place] [address] Phone [phone] Care Team Providers Care Dials Inspector Name Role Phone Terry Resendez MD Primary Care Provider [phone] Reason for Visit * Reason Onset Date Comments Hospital Follow-Up 03/18/2024 [facility] Encounter Details Date Type Department Care Team (Late st Contact Info) Description 03/18/2024 Telephone Ancillary Department, [address] [address] Mariaelena Sepulveda, SRINIVASAN Hospital Follow-Up ([facility]) Allergies Active Allergy Reactions Criticality Noted Date Comments Ciprofloxacin Hives 09/01/2017 Statins 11/15/2020 All statins Simvastatin 05/07/2006 Severe myalgia's documented as of this encounter (statuses as of 03/18/2024) Medications Medication Sig Dispensed Refills Start Date End Date Status ASPIRIN EC 81 MG PO TBECIndications:Esther nary atherosclerosis of [place] coronary artery Take one pill daily 100 [...] NEEDED FOR NAUSEA. 30 Tablet 4 Active Phenazopyridine HCl 200 MG Oral Tablet (Pyridium) Take 1 Tablet by mouth 3 times a day as needed for Other (Bladder spasms). After meals. 12 Tablet 4 Active HYDROcodone-Acetamin ophen 5-325 MG Oral TabletIndications:Ch ronic bilateral low back pain with right-sided sciatica Take 1 Tablet by mouth 3 times a day as needed for Pain, Mild or Pain, Moderate. 30 day RX 90 Tablet 4 Active Nitrofurantoin Monohyd Macro 100 MG Oral Capsule (Macrobid) Take 1 Capsule by mouth in the morning and 1 Capsule before bedtime. With food.. 30 Capsule 4 03/18/20 24 Discontinu ed(Medicat ion List Clean Up) traMADol HCl 50 MG Oral Tablet (Ultram) Take 1 Tablet by mouth every 6 hours as needed for Pain, Severe. 10 Tablet 4 03/18/20 24 Discontinu ed(Medicat ion List Clean Up) Hospital, Clinic, or Other Facility Administered Medication Ordered Dose Route Frequency Start Date End Date Status albuterol sulfate (PROVENTIL) (2.5 MG/3ML) 0.083% inhalation solution 2.5 mgIndications:COPD, severity to be determined (HCC) 2.5 mg NEBULIZER Q4H PRN 07/05/2019 Active documented as of this encounter (statuses as of 03/18/2024) Active Problems Problem Noted Date Diagnosed Date [...] as of this encounter (statuses as of 03/18/2024) Resolved Problems Problem Noted Date Diagnosed Date [...] as of this encounter (statuses as of 03/18/2024) Immunizations Name Administration Dates Next Due Pneumococcal [...] encounter Miscellaneous Notes * Telephone Encounter - Mariaelena Sepulveda RN - 03/18/2024 3:24 PM EDT Discussed patients concerns with Dr. Resendez. Note forwarded. * Telephone Encounter - Mariaelena Sepulveda RN - 03/18/2024 2:39 PM EDT Transitions of Care Note Source/Contact: Spouse SUBJECTIVE Consent: Verbal consent for review of hospital discharge: Yes REVIEW OF SYSTEMS Patient/Other Reports: Current patient/caregiver problems or concerns: Spouse reporting concerns of "subtle behavior changes" she has noticed since hospitalization that Patel has been slower with movements. He has decreased appetite, continues to drink beer in the afternoon, may drink coffee in the AM and maybe one cup of water. She reports when coming home from the hospital Patel seemed to have forgotten how to ambulate up the 2 stairs to enter their home. His feet "seemed to drag." He had a fall last week in the garage and has a wound/skin tear to his R valiente. Maria Dolores wonders if he may have had a "mini stroke". She feels his breathing is more shallow, but does not notice a cough or wheeze. CV: Denies problems, wonders if he needs repeat labs as his D-dimer was elevated in the hospital [id number]. Pulmonary: Denies problems See above Chills/Sweats/Fever:Denies chills/sweats Denies fever Appetite:Decreased appetite Current diet: regular Bowel: denies problems Bladder: increased urinary frequency Wound (If applicable): Site-R valiente Pain:Denies Sleep:Denies problems FUNCTIONAL STATUS: ADL'S: Needs Assistance With:Dressing IADL'S: Needs Assistance With:Grocery Shopping, Routine Housework, and Attending to safety Cognitive and Mental Health: able to communicate, understand some instructions, process some information MEDICATION RECONCILIATION Medications: Discharge med list reviewed with patient or caregiver Changed medication(s) since hospitalization increase in metoprolol 25 mg to BID and increase amlodipine to 5 mg BID. OBJECTIVE ASSESSMENT Medication Risk Assessment: No risks identified Did patient fail outpatient treatment? No Discharge instructions available for review? Yes PLAN Symptom Monitoring Interventions:Member/caregiver education - signs and symptoms to contact PrimaryCare (DO NOT DELETE-Three kothari symptoms patient is to report to PCP) 1. Redness or swelling to extremities 2. Inability to complete daily tasks/activities/follow directions 3. Wheezing/Cough/SOB Print DecoratorShampooer of Care interventions/Action Plan: Medication reconciliation and 5 - 7 day follow-up with PCP in place - Date: 03/21/24 Educated on role of SHANE completed with patient/caregiver. Educated patient/caregiver on patient right to have input on SHANE plan of care. Verification of Home Health/DME if indicated: NO N/A Identified Care Gaps: Yes Care Gaps closed this call: Medication optimization, Post discharge appointment, Safety and self care issues addressed, and Transition of Care follow-up communication Re-evaluation of Plan of Care and progress towards goals achievement: Patient education this visit: Verbal, as above Plan to instructed to call Primary Care Provider with change in symptoms or as needed before next follow-up, discharge needs met, verbalizes understanding and agrees with plan. Mariaelena Sepulveda RN * Telephone Encounter - Mariaelena Sepulveda RN - 03/18/2024 10:42 AM EDT Transitions of Care Note Reason for Referral:Recent Admission Phone visit for follow up: SHANE Admitted to: [facility], Date: 03/14 Discharged to: Home, Date: 03/16 Diagnosis driving hospitalization: Chest pain, hyponatremia, alcoholism Source/Contact: Spouse SUBJECTIVE Spoke briefly with spouse, Maria Dolores. She reports having some concerns with Patel "being off" she wonders if he had "a mini stroke or something when his blood pressure was so high in the hospital." Call was dropped, attempted to call Maria Dolores back, no answer, left VM and will attempt to call back again. documented in this encounter Plan of Treatment Upcoming Encounters Date Type Department Care Team (Latest Contact Info) Description 03/21/2024 11:20 AM EDT Office Visit [facility] [address] [place] [id number] Terry Resendez MD [address] [place] [address] 04/01/2024 10:36 AM EDT Hospital Encounter [facility], Operating Room, [facility] - [facility]th [facility] [address] [facility] [address] Seamus Calixto, DO [address] [place] [address] 04/01/2024 10:36 AM EDT - 04/01/2024 11:17 AM EDT Surgery OR [facility], Operating Room, [facility] - 4th [facility] [address] [facility] [address] Seamus Calixto, DO [address] [place] [address] COLONOSCOPY FLEXIBLE PROXIMAL DIAGNOSTIC 04/15/2024 2:00 PM EDT [facility] [place] [address] [facility] [phone] Terry Resendez MD [address] [place] [address] 04/26/2024 8:15 AM EDT Office Visit Urology, [facility] [address] [place] [address] Mauricio Ramos MD [address] [place] [address] 05/02/2024 3:40 PM EDT Office Visit Neurology [facility] [address] [facility] [place] [address] Elsie Capone MD [address] [facility] [address] 06/06/2024 3:30 PM EDT Office Visit Cardiology, [facility] [address] [place] [address] Nargis Power CRNP [address] [place] [address] Scheduled Procedures Name Priority Associated Diagnoses Date/Ti me COLONOSCOPY FLEXIBLE PROXIMAL DIAGNOSTIC Recall History of colonic polyps 04/01/2024 10:36 AM EDT Health Maintenance Due Date Last Done Comments DISCUSS TOBACCO CESSATION (REFER TO SMARTSET #2291) 1954 Alpha-1 Antitrypsin 1972 Cologuard 1999 Fecal [...] 11/18/2023 11/17/2022, 09/25, 10/16/2021, Additional history exists *CXR OR CT FOR COPD EVER 03/06/2024 Influenza Vaccine (FLU shot) (#1) 2024 06/19/2017, 06/27/2015, 06/29/2014, Additional history exists GFR 11/17/2024 11/18/2023, 04/25, 01/29/2023, Additional history exists O2 ASSESSMENT COMPLETED IN PAST YEAR FOR COPD 12/30/2024 12/31/2023 DTaP,Tdap,and Td Vaccines (2 - Td or Tdap) 01/17/2026 01/18/2016, 03/15/2004 VITAMIN D LEVEL ONCE IN A LIFETIME-USE SMARTSET# [id number] Completed 12/18/2015, 02/09/2015, 06/29/2014, Additional history exists [...] this encounter Medical Devices Implanted Type Area Brass Polisher Device Identifier Shelf Expiration Date Model / Serial / Lot Stent Carotid [id number] - [id number] [place] 08[place]23/[place] [facility] [place] Carotid [facility] 02/21/2016 [id number] / / [id number] documented as of this encounter Advance Directives [...] the patient have Health Care Power of Sheet Metal Supervisor? No * Full Code Date Activated Date Inactivated Comments 08/23/2013 8:39 AM 08/24/2013 2:49 PM This order r eflects the patients wishes and were consensually agreed upon. Care Teams Dials Inspector Relationship Specialty Start Date End Date Terry Resendez MD [address] [place] [address] PCP - General 04/07/1996 documented as of this encounter
--- OUTSIDE RECORDS SUMMARY | 2024-06-12 18:40 | External Medical Summary | Summary of Care ---
Author Name Unknown Organization [facility] Address [address] [place] [address] Phone [phone] Care Team Providers Care Bindery Supervisor Name Role Phone Terry Resendez MD Primary Care Provider [phone] Reason for Visit * Reason Onset Date Comments Hospital Follow-Up Patient is he re today for a hospital follow up. Patient was admitted to [facility] from 03/14-03/16 for severe chest pain in his left side and left arm, patient also had nausea and was short of breath. Patient is currently feeling dizzy and isn't "as good as he was before." At the hospital, patient had the markers for a blood clot but one wasn't discovered, patient's would like to know if he could have one somewhere else.Patient was having high blood pressure and would like to discuss. 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)*; COPD, severity to be determined (HCC); Senile osteoporosis; Diabetes mellitus with peripheral angiopathy (HCC); HTN, goal below 140/90; Hospital discharge follow-up Allergies Active Allergy Reactions Criticality Noted Date Comments Ciprofloxacin Hives 09/01/2017 Statins 11/15/2020 All statins Simvastatin 05/07/2006 Severe myalgia's documented as of this encounter (statuses as of 03/21/2024) Medications Medication Sig Dispensed Refills Start Date End Date Status ASPIRIN EC 81 MG PO TBECIndications:Cor onary atherosclerosis of [place] coronary artery Take one pill daily 100 [...] As needed 30 Tab 06/15/20 18 Active Tamsulosin HCl 0.4 MG Oral Capsule [...] morning. 90 Tablet 3 07/30/20 23 Active Lasmiditan Succinate 50 MG Oral [...] 6 HOURS NEEDED FOR NAUSEA. 30 Tablet 12/16/19 24 Active HYDROcodone-Acetami nophen 5-325 MG Oral TabletIndications:C hronic bilateral low back pain with right-sided sciatica Take 1 Tablet by mouth 3 times a day as needed for Pain, Mild or Pain, Moderate. 30 day RX 90 Tablet 03/01/20 24 Active Metoprolol Succinate ER 25 MG Oral Tablet Extended Release 24 Hour (toPROL XL)Indications:Esther nary artery disease with exertional angina (HCC),HTN, goal below 140/90 25mg daily in AM and 12.5mg daily at bedtime 135 Tablet 3 03/21/20 24 Active amLODIPine Besylate 2.5 MG Oral Tablet (Norvasc)Indication s:HTN, goal below 140/90 Take 1 Tablet by mouth in the morning. 90 Tablet 3 03/21/20 24 Active Nitroglycerin 0.4 MG Sublingual Tablet Sublingual (Nitrostat)Indicati ons:Coronary artery disease with exertional angina (HCC) Place 1 Tablet under the tongue every 5 minutes as needed for Pain, Chest. up to 3 doses in 15 minutes 25 Tablet 11 03/21/20 24 Active Nitroglycerin 0.4 MG Sublingual Tablet Sublingual (Nitrostat) Place under the tongue 1 Tablet every 5 minutes as needed for Pain, Chest. up to 3 doses in 15 minutes 25 Tablet 11 12/03/19 22 024 Discontinued(Re fill) Metoprolol Succinate ER 25 MG Oral Tablet Extended Release 24 Hour (toPROL XL) Take 1 Tablet by mouth in the morning. 90 Tablet 3 08/10/20 23 024 Discontinued Repatha SureClick 140 MG/ML Subcutaneous Solution Auto-injector (evolocumab) Inject 140 mg (1 pen) under the skin every 14 days. Remove from refrigerator 30 minutes prior to injection. 6 mL 3 08/20/20 23 024 Discontinued(Joseluis medina preference/disc ontinuation) Phenazopyridine HCl 200 MG Oral Tablet (Pyridium) Take 1 Tablet by mouth 3 times a day as needed for Other (Bladder spasms). After meals. 12 Tablet 12/31/19 24 024 Discontinued(Joseluis medina preference/disc ontinuation) Hospital, Clinic, or Other Facility Administered Medication Ordered Dose Route Frequency Start Date End Date Status albuterol sulfate (PROVENTIL) (2.5 MG/3ML) 0.083% inhalation solution 2.5 mgIndications:COPD, severity to be determined (HCC) 2.5 mg NEBULIZER Q4H PRN 07/05/2019 Active documented as of this encounter (statuses as of 03/21/2024) Active Problems Problem Noted Date Diagnosed Date [...] as of this encounter (statuses as of 03/21/2024) Resolved Problems Problem Noted Date Diagnosed Date [...] as of this encounter (statuses as of 03/21/2024) Immunizations Name Administration Dates Next Due Pneumococcal [...] Sign Reading Time Taken Comments Blood Pressure 132/64 03/21/2024 11:37 AM EDT Pulse 63 03/21/2024 11:37 AM EDT Temperature 35.6 C (96.1 F) 03/21/2024 1 1:37 AM EDT Respiratory Rate 16 03/21/2024 11:3 7 AM EDT Oxygen Saturation 97% 03/21/2024 11: 37 AM EDT Inhaled Oxygen Concentration - - Weight 102.9 kg (226 lb 12.8 oz) 2023 11:37 AM EDT Height 180.3 cm (5' 11") 03/21/2024 11: 37 AM EDT Body Mass Index 31.63 03/21/2024 11:37 AM EDT documented in this encounter Functional [...] as of this encounter Progress Notes * Terry Resendez MD - 03/21/2024 11:53 AM EDT Subjective: Patel León is a 68 year old male. Chief Complaint Patient presents with Hospital Follow-Up Patient is here today for a hospital follow up. Patient was admitted to [facility] from 03/14-03/16 for severe chest pain in his left side and left arm, patient also had nausea and was short of breath. Patient is currently feeling dizzy and isn't "as good as he was before." At the hospital, patient had the markers for a blood clot but one wasn't discovered, patient's wifewould like to know if he could have one somewhere else. Patient was having high blood pressure and would like to discuss. HPI: 68-year-old seen today in follow-up after recent [facility] hospital admission [phone]. He had developed intermittent chest pain for couple days and then on the day of admission he developed more severe and more steady left chest left neck left arm pain. Because of the pain paramedics were calledin ultimately patient was transported to [facility] ER. Much of the chest pain apparently improved when the paramedics had arrived. His evaluation in the emergency room included a CT angiogram of the chest which showed no pulmonary emboli and no aortic dissection or aneurysm. His D-dimer had been somewhat elevated. Troponin level was normal. Blood pressure was notably high. Topical nitroglycerin was added for blood pressure control. Cardiology was consulted. They noted that patient has a history of known coronary artery disease that includes the right coronary artery that angioplasty had been donebut it was ultimately a suboptimal procedure due to technical difficulties. Also following that procedure he has stroke and thus hesitation to repeat catheterization and angioplasty. Cardiology increased amlodipine from 5 mg a day to 5 mg twice a day. They increase metoprolol succinate from 25 mg aday to 25 mg twice a day. It should be noted that historically he previously had problems with higher dose of metoprolol plus or minus amlodipine with lightheadedness and actual syncope. That is large part why he was dosed with metoprolol succinate 25 mg daily taken in the morning and amlodipine 5 mg daily taken at nighttime. Echocardiogram showed normal EF. Grade 1 diastolic dysfunction. Ultimately was thought that his chest pain was probably a consequence of uncontrolled hypertension and lesslikely due to coronary artery disease. Since discharge he has done okay. His notes that he is little bit slower in response and she questions whether he may have suffered a stroke. It should be noted that his serum sodium level was low at 1:36 a.m. as he has had previously and this is felt to be a consequence of Um excess alcohol ingestion. Um that may be contributing as well. He has been having problems with lightheadedness since discharge. He describes this as a spinning lightheaded. 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, lumbar, with myelopathy DDD (degenerative disc disease), lumbar Other specified peripheral vascular diseases ([facility]) Hemiplga following cerebral infrc aff right dominant side ([facility]) Diabetes mellitus with peripheral angiopathy ([facility]) Acute ischemic stroke ([facility]) Bradycardia Hemiplegia and hemiparesis following unspecified cerebrovascular disease affecting right dominant side (HCC) Recurrent major depressive disorder (HCC) Major depressive disorder, single episode, moderate (HCC) Seizure, grand mal ([facility]) BPH with obstruction/lower urinary tract symptoms Nocturia Current Outpatient Medications Medication Sig Dispense Refill [...] HOURS NEEDED FOR NAUSEA. 30 Tablet 0 HYDROcodone-Acetaminophen 5-325 MG Oral Tablet Take [...] statins Zocor [Simvastatin] Severe myalgia's Objective: BP 132/64 | Pulse 63 | Temp 35.6 C (96.1 F) (Tympanic) | Resp 16 | Ht 1.803 m (5' 11") | Wt 102.9 kg (226 lb 12.8 oz) | SpO2 97% | BMI 31.63 kg/m | BSA 2.27 m Physical Exam: CONST: alert, pleasant, no acute distress HEAD: normocephalic, atraumatic NECK: supple, soft, no adenopathy Eyes - PERRLA, EOM'I OROPHARYNX: clear, no swelling or erythema, moist CV: regular rate and rhythm, no murmur CHEST: clear to auscultation bilaterally, no rales or wheezing ABD: soft, non tender, non distended, no masses or hepatosplenomegaly EXT: no edema, no joint swelling or deformities, NEURO: AAOx3, no gross focal deficits, cerebellar signs normal, affect appropriate ASSESSMENT/PLAN: Coronary artery disease with exertional angina (HCC) (Primary)-he is going to remain on metoprolol but were going to make a minor adjustment: Metoprolol succinate 25 mg in the morning and 12.5 mg (half of a 25 mg tablet) at bedtime Diabetes mellitus with peripheral angiopathy (HCC) will address further when I see him again in 1 month's time. HTN, goal below 140/90-because of his recurrent lightheadedness will make minor adjustment of the amlodipine: Amlodipine 2.5 mg daily in the morning and 5 mg daily at bedtime. Alcohol abuse-little doubt that this is a major impact on causing labile blood pressure readings. Isn't turn his made a difficult situation because he seems to be sensitive to certain medications making him presyncopal to syncopal. Terry Resendez MD documented in this encounter Nursing Notes * Cyndie Sanchez, MED ASSIST - 03/21/2024 11:44 AM EDT The patient has been properly identified by confirmation of name and date of . Chief Complaint Patient presents with Hospital Follow-Up Patient is here today for a hospital follow up. Patient was admitted to [facility] from 03/14-03/16 for severe chest pain in his left side and left arm, patient also had nausea and was short of breath. Patient is currently feeling dizzy and isn't "as good as he was before." At the hospital, patient had the markers for a blood clot but one wasn't discovered, patient's wifewould like to know if he could have one somewhere else. Patient was having high blood pressure and would like to discuss. documented in this encounter Plan of Treatment Upcoming Encounters Date Type Department Care Team (Latest Contact Info) Description 04/01/2024 10:34 AM EDT Hospital Encounter OR [facility], Operating Room, [facility] - 4th Floor [address] [place] [address] Seamus Calixto, DO [address] [place] [address] 04/01/2024 10:34 AM EDT - 04/01/2024 11:15 AM EDT Surgery OR [facility], Operating Room, [facility] - 4th Floor [address] [place] [address] Seamus Calixto, [address] [place] [address] COLONOSCOPY FLEXIBLE PROXIMAL DIAGNOSTIC 04/15/2024 2:00 PM EDT Office Visit [facility] [address] [place] [address] Terry Resendez MD [address] [place] [address] 04/26/2024 8:15 AM EDT Office Visit Urology, [facility] [address] [place] [address] Mauricio Ramos MD [address] [place] [address] 05/02/2024 3:40 PM EDT Office Visit [facility] [address] [facility] [place] [address] Elsie Capone MD [address] [facility] [place] [address] 06/06/2024 3:30 PM EDT Office Visit Cardiology, [facility] [address] [place] [address] Nargis Power CRNP [address] [place] [address] Scheduled Orders Name Type Priority Associated Diagnoses Orde r Schedule ALBUMIN / CREATININE RATIO, URINE Lab Routine Diabetes mellitus with peripheral angiopathy (HCC) Expected: 03/21/2024, Expires: 03/21/2025 HEMOGLOBIN A1C Lab Routine Diabetes mellitus with peripheral angiopathy (HCC) Expected: 03/21/2024 (Approximate), Expires: 04/21/2025 Scheduled Procedures Name Priority Associated Diagnoses Date/Ti me COLONOSCOPY FLEXIBLE PROXIMAL DIAGNOSTIC Recall History of colonic polyps 04/01/2024 10:34 AM EDT Health Maintenance Due Date Last Done Comments DISCUSS TOBACCO CESSATION (REFER TO SMARTSET #0281) 1954 Alpha-1 Antitrypsin 1972 Cologuard 1999 Fecal Occult Blood Test 1999 10/04/1998 Sigmoidoscopy 1999 *COPD SEVERITY VERIFIED BY PFT 08/22/2015 DXA Scan 11/27/2017 11/28/2015 *BISPHONATE OR OTHER ACCEPTABLE MEDICATION NEEDED FOR OSTEOPOROSIS (REFER TO SMARTSET #1146) 06/14/2018 Depression Monitoring 06/13/2021 06/13/2020 Colonoscopy 04/05/2022 04/05/2019, 03/24, 01/15/2016, Additional history exists Colorectal Cancer Screening 04/05/2022 COVID-19 Vaccine ( season) 2023 Albumin/Creatinine Ratio 10/17/2023 023, 10/16/2021, 10/11/2019, Additional history exists HbA1c 11/16/2023 05/18/2023, 09/25, 10/16/2021, Additional history exists B-12 11/18/2023 11/17/2022, 09/25, 10/16/2021, Additional history exists *CXR OR CT FOR COPD EVER 03/06/2024 Diabetic Eye Exam 03/28/2024 01/29/2021 Postponed from 01/29/2022 (Acute Illness) Diabetic Foot Exam 03/28/2024 10/17/2022, 0 09/05/2020, 10/11/2019, Additional history exists Postponed from 10/17/2023 (Acute Illness) Influenza Vaccine (FLU shot) (#1) 2024 06/19/2017, 06/27/2015, 06/29/2014, Additional history exists GFR 11/17/2024 11/18/2023, 04/25, 01/29/2023, Additional history exists O2 ASSESSMENT COMPLETED IN PAST YEAR FOR COPD 12/30/2024 12/31/2023 Pneumococcal Vaccine: 65+ Years (3 of 3 - PPSV23 or PCV20) 04/21/2025 04/11/2020, 08/05/2013 Postponed from 04/11/2021 (Patient Declined After Education) Zoster Vaccines (1 of 2) 04/21/2025 Pos tponed from 2004 (Patient Declined After Education) DTaP,Tdap,and Td Vaccines (2 - Td or Tdap) 01/17/2026 01/18/2016, 03/15/2004 VITAMIN D LEVEL ONCE IN A LIFETIME-USE SMARTSET# [id number] Completed 12/18/2015, 02/09/2015, 06/29/2014, Additional history exists [...] this encounter Medical Devices Implanted Type Area Computer Networker Device Identifier Shelf Expiration Date Model / Serial / Lot Stent Carotid [id number] - [id number] Implanted:Qty: 1 on 08/23/2013 at OR [facility] [place] Right: Carotid [facility] 02/21/2016 [id number] / / [id number] documented as of this encounter Visit Diagnoses Diagnosis 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 No * Full Code Date Activated Date Inactivated Comments 08/23/2013 8:39 AM 08/24/2013 2:49 PM This order r eflects the patients wishes and were consensually agreed upon. Care Teams Bindery Supervisor Relationship Specialty Start Date End Date Terry Resendez MD [address] [place] [address] PCP - General 04/07/1996 documented as of this encounter
--- OUTSIDE RECORDS SUMMARY | 2024-06-12 18:40 | External Medical Summary | Summary of Care ---
Author Name Unknown Organization [facility] Address [address] [place] [address] Phone [phone] Care Team Providers Care Delivery Room Supervisor Name Role Phone Sam Resendez MD Primary Care Provider [phone] Reason for Visit * Reason Comments Follow Up * Evaluate & Treat - Unlimited Visits (Within 3 days (urgent)) - Authorized Specialty Diagnoses / Procedures Referred By Contenedelia t Referred To Contact Urology Diagnoses Urinary retention Urinary incontinence, unspecified type Subjective fever Dysuria Nichole Guido MD [address] [place] [address] Referral ID Status Reason Start Date Expiration Date Visits Requested Visits Authorized [id number] Authorized Specialty Services Required 05/18/2023 05/18/[phone] Encounter Details Date Type Department Care Team (Late st Contact Info) Description 04/26/2024 8:15 AM EDT Office Visit [facility] [address] [facility] [place] [address] Mauricio Ramos MD [address] [address] BPH with obstruction/lower urinary tract symptoms*; Urinary retention; Urge incontinence; Nocturia Allergies Active Allergy Reactions Criticality Noted Date Comments Ciprofloxacin Hives 09/01/2017 Statins 11/15/2020 All statins Simvastatin 05/07/2006 Severe myalgia's documented as of this encounter (statuses as of 04/26/2024) Medications Medication Sig Dispensed Refills Start Date End Date Status ASPIRIN EC 81 MG PO TBECIndications:[place] pr[place] atherosclerosis of [place] coronary artery Take one pill daily 100 [...] 30 day RX 90 Tablet 04/03/2024 Active Tamsulosin HCl 0.4 MG Oral Capsule (Flomax)Indications:O bstructive uropathy TAKE ONE CAPSULE BY MOUTH EVERY OTHER DAY 45 Capsule 1 04/20/2024 Active Solifenacin Succinate 5 MG Oral Tablet (VESIcare) Take 1 Tablet by mouth in the morning. 30 Tablet 6 04/26/2024 Active Hospital, Clinic, or Other Facility Administered Medication Ordered Dose Route Frequency Start Date End Date Status albuterol sulfate (PROVENTIL) (2.5 MG/3ML) 0.083% inhalation solution 2.5 mgIndications:COPD, severity to be determined ([facility]) 2.5 mg NEBULIZER Q4H PRN 07/05/2019 Active documented as of this encounter (statuses as of 04/26/2024) Active Problems Problem Noted Date Diagnosed Date [...] as of this encounter (statuses as of 04/26/2024) Resolved Problems Problem Noted Date Diagnosed Date [...] as of this encounter (statuses as of 04/26/2024) Immunizations Name Administration Dates Next Due Pneumococcal [...] Progress Notes * Mauricio Ramos MD - 04/26/2024 8:15 AM EDT [id number] PCP: [place] [address] Patel León is a 68 year old male, who presents for three-month follow-up of his voiding after GreenLight vaporization of the prostate. Patient's past notes are reviewed. Patient's interval hospitalization and primary care physician notes are noted. Patient is noted to have had chest pain causing admission. Bladder scanned with ultrasound for postvoid residual of 84 mL. Patient notes continuedurinary frequency and leakage. He is here with his family. He denies pad use, changes clothes, a couple times a week since his last visit. BPH: Patient is being seen for BPH today. He has had the following symptoms: slow stream, nocturia, urgency, and frequency. Severity is moderate. He has tried tamsulosin and finasteride. CIC started October 2023. He has previously had Cystoscopy done November 2023 demonstrating short, obstructive prostate. GreenLight TURP and dilation of urethral stricture December 2023. Problem has been present for years. Problem is Stable postop. PSA Results: Lab Results Component Value Date/Time PSA - [facility] 1.12 05/18/2023 12:03 PM PSA - [facility] 0.81 07/04/2021 03:04 PM PSA - [facility] 0.36 04/24/2009 02:20 PM PSA SCREENING 0.41 05/20/2013 10:39 AM PSA SCREENING 0.42 07/20/2009 10:52 AM PSA SCREENING 0.48 09/07/2007 09:14 AM Creatinine Results: Lab Results Component Value Date/Time CREATININE - [facility] 1.1 11/18/2023 04:21 PM CREATININE - [facility] 1.1 05/18/2023 12:03 PM CREATININE - [facility] 0.9 01/29/2023 01:59 PM CREATININE - [facility] 0.9 06/14/2019 08:52 AM CREATININE - [facility] 1.1 08/12/2018 02:34 PM CREATININE - [facility] 1.1 08/06/2018 11:01 AM CREATININE, RANDOM URINE - [facility] 44 04/20/2024 08:51 AM CREATININE, RANDOM URINE - [facility] 22 10/17/2022 02:57 PM CREATININE, RANDOM URINE - [facility] 112 10/16/2021 02:48 PM CREATININE, RANDOM URINE - [facility] 82 10/11/2019 04:14 PM CREATININE, RANDOM URINE - [facility] 108 01/19/2018 03:31 PM CREATININE, RANDOM URINE - [facility] 62 04/22/2017 10:01 AM CREATININE-OUTSIDE LAB 1.24 01/08/2019 12:00 AM CREATININE-OUTSIDE LAB 1.20 10/29/2015 12:00 AM CREATININE-OUTSIDE LAB 1.20 10/12/2015 12:00 AM Current Outpatient Medications Medication Sig Dispense [...] 4 hours as needed for Pain. As [id number] Tab 0 Omeprazole 20 MG Oral Capsule [...] MOUTH EVERY OTHER DAY 45 Capsule 1 Current Facility-Administered Medications Medication [...] OTHER performed [place] [facility] [facility]AC CATH-CARDIOLOGY ONLY 2006 COLONOSCOPY W/ LESION REMOVAL, SNARE 06/05/09 done one 12mm polyp in distal sigmoid,,one 3mm in transverse colon, 5mm polyp in proximal sigmoid, diverticulosis /adenomatous/repeat colonoscopy in 1 yr COLONOSCOPY, DIAGNOSTIC (RECTUM) 01/15/2016 hyperplatic & serrated adenomatous polyp, diverticulosis, repeat 3 yrs/[facility] COLONOSCOPY, DIAGNOSTIC (RECTUM) N/A 04/05/2019 poor prep/diverticulosis sigmoid colon/biopsies show benign polyp/recall 3 years/COLONOSCOPY FLEXIBLE PROXIMAL DIAGNOSTIC performed by Dat Narayanan MD at OR [facility] CORONARY ANGIOGRAPHY W/LEFT HEART CATH 05/25/2017 CORONARY ANGIOGRAPHY W/LEFT HEART CATH performed by Martha Alford MD at CARDIAC LABS [facility] IN[facility] Ankle fx repair. IR VERTEBRAL AUGMENTATION TECH ONLY 2015 L2/ Dr Barcenas MISCELLANEOUS ORDER 08/1999 left lateral elbow ligament repair MISCELLANEOUS ORDER ([facility]) 09/2003 right rotator cuff repair/ [place] OTHER 09/2006 left rotator cuff repair OTHER 2007 bilateral hip replacement (Dr Benavidez) PROSTATE, LASER VAPORIZATION N/A 12/31/2023 LASER VAPORIZATION PROSTATE performed by Mauricio Ramos MD at OR [facility] REMOVAL OF TONSILS, AGE 12+ TOTAL HIP REPLACEMENT & PROSTHESIS both hips, AVN TRANSCATH STENT-CAROTID ARTERY, W/EMBOL PROTECTION 08/23/2013 right carotid stent with cerebral angiogram. 08/23/13 Dr. Chen. [facility] [place] TRANSCATH STENT-CAROTID ARTERY, W/EMBOL PROTECTION Xact Carotid Stent 08/05- safe up to 3T Past Medical History: Diagnosis Date Acute ischemic VBA thalamic stroke, left (HCC) 08/04/2013 Benign neoplasm of colon 06/05/2009 adenomatous/repeat colonoscopy in 1 yr Carotid artery stenosis CLASSICAL MIGRAINE WITHOU MENTION OF INTRACTABLE MIGRAINE 01/14/2002 Compression fracture of L2 lumbar vertebra (HCC) 10/16/2015 Coronary atherosclerosis of [place] coronary artery 2006 total occ RCA// 40% [...] Constitutional: (-) fever and (-) chills ENT: (+) hearing loss Pulmonary: (-) cough Male : see HPI Musculoskeletal: (+) joint pain and (+) knee pain/problems Neurology: (-) negative: no focal neurologic defect Psychiatry: (+) depression Physical Exam Nursing note reviewed. Constitutional: General: [...] and oriented to person, place, and time. Motor: No weakness. Psychiatric: Attention and Perception: Attention normal. Mood and Affect: Mood and affect normal. Impression/Plan: 68 yo male with resolved retention, decreasing incontinence. Findings reviewed with the patient's family. Will check a urine culture today for the possibility of a persistent urinary tract infection. Per the patient's family he is using his tamsulosin every other day due to blood pressure issues. We will try stopping this altogether and allow a couple of weeks for washout. Prescription for solifenacin low-dose is provided to the patient's pharmacy. Possible side effects reviewed. Hopefully, this will decrease his urinary urgency which seems to be improving since he was last seen. I suspect ongoing competing health issues are not helping with his convalescence from his GreenLight TURP. Will see the patient back in 4 months to check on his progress. They can certainly reach out sooner with any other urologic issues. Above content is personally reviewed. Patient vocalizes good understanding of the treatment plan. Mauricio Ramos MD 7:43 AM 04/26/2024 documented in this encounter Nursing Notes * Randi Cancino LPN - 04/26/2024 8:04 AM EDT 3 month ret. Patient presents with spouse. Taking finasteride, tamsulosin. C/o frequency, leakage, nocturia x 4-5, rare urgency. PVR 84 mL documented in this encounter Plan of Treatment Upcoming Encounters Date Type Department Care Team (Late st Contact Info) Description 05/02/2024 3:40 PM EDT Office Visit Neurology [facility] [address] [facility] [place] [address] Elsie Capone MD [address] [facility] [place] [address] 06/06/2024 3:30 PM EDT Office Visit [facility], [facility] [address] [place] [address] Nargis Power CRNP [address] [place] [address] 09/13/2024 9:15 AM EST Office Visit [facility]rology, [facility] [address] [place] [address] Mauricio Ramos MD [address] [place] [address] 10/19/2024 2:00 PM EST Office Visit [facility] [address] [place] [phone] Sam Resendez MD [address], [place] [id number] Scheduled Orders Name Type Priority Associated Diagnoses Orde r Schedule CULTURE, URINE, QUANTITATIVE Lab Routine BPH with obstruction/lower urinary tract symptoms Urinary retention Urge incontinence Nocturia Expected: 04/26/2024, Expires: 04/26/2025 Scheduled Procedures Name Priority Associated Diagnoses Date/Ti me COLONOSCOPY FLEXIBLE PROXIMA L DIAGNOSTIC Recall History of colonic polyps Health Maintenance Due Date Last Done Comments DISCUSS TOBACCO CESSATION (REFER TO SMARTSET #7269) 1954 Alpha-1 Antitrypsin 1972 Cologuard 1999 Fecal [...] D LEVEL ONCE IN A LIFETIME-USE SMARTSET# 97396 Completed 12/18/2015, 02/09/2015, 06/29/2014, Additional history exists [...] this encounter Medical Devices Implanted Type Area Target Developer Device Identifier Shelf Expiration Date Model / Serial / Lot Stent Carotid [id number] [id number] - [id number] Implanted:Qty: 1 on 08/23/2013 at [place] [facility] Right: Carotid [facility] VASCULAR DEVICES 02/21/2016 [id number] / / [id number] documented as of this encounter Visit Diagnoses Diagnosis BPH with obstruction/lower urinary tract symptoms- Primary Hypertrophy of prostate with urinary obstruction and other lower urinary tract symptoms (LUTS) Urinary retention Retention of urine, unspecified Urge incontinence Nocturia documented in this encounter Advance Directives * [...] the patient have Health Care Power of Skin Pass Operator? No * Full Code Date Activated Date Inactivated Comments 08/23/2013 8:39 AM 08/24/2013 2:49 PM This order r eflects the patients wishes and were consensually agreed upon. Care Teams Delivery Room Supervisor Relationship Specialty Start Date End Date Sam Resendez MD [address] [place] [address] PCP - General 04/07/1996 documented as of this encounter
--- OUTSIDE RECORDS SUMMARY | 2024-06-12 18:40 | External Medical Summary ---
Author Name Unknown Address Unknown Organization [id number]:LABORATORY [facility] - [address] [place] [id number] Laboratory Report Ordering Provider Test Date Status AYDEE PRADO 04/26/2024 08:43:23 Final Observation Date Value Abnormality Reference (Units) Status Bacteria identified in Specimen by Culture 04/26/2024 08:43:23 No significant growth Final Test: Culture, Urine, Quant itative
Specimen Source: Urine, Clean Catch
Specimen Type: Urine
Specimen Date: 04/26/2024 [id number]
Result Date: 04/27/2024 1119
Result Status: Final result
Resulting Lab: [facility]
[address]
[place] [address]

CULTURE

No significant growth

null Performing Location LAB[facility]ORY [facility] - [address] [facility] [address]
--- OUTSIDE RECORDS SUMMARY | 2024-06-12 18:40 | External Medical Summary ---
Author Name Unknown Address Unknown Organization [id number]:[facility] [place] [address] [place] [address] Laboratory Report Ordering Provider Test Date Status ANETA VARGAS 04/20/2024 08:51:21 Final Observation Date Value Abnormality Reference (Units ) Status Cortisol 04/20/2024 08:51:21 17.4 2.5-19.5 ( ug/dL) Final AM Reference Range: 4.8 - 19 .5 ug/dL
PM Reference Range: 2.5 - 11.9 ug/dL Performing Location LABORATORY C - [address] [place] [address]
--- OUTSIDE RECORDS SUMMARY | 2024-06-12 18:40 | External Medical Summary ---
Author Name Unknown Address Unknown Organization [id number]:[facility] [place] [address] [place] [address] Laboratory Report Ordering Provider Test Date Status ANETA VARGAS 04/20/2024 08:51:21 Final Observation Date Value Abnormality Reference (Units ) Status HbA1C 04/20/2024 08:51:21 6.1 Above high normal 4. 0-5.6 (%) Final The use of HbA1c to monitor glycemic status is based on normal hemoglobin and HbA composition. This test should not be used in patients with abnormal hemoglobin that affects the half life of the red blood cell or the in vivo glycation rates. Glucose, estimated average 04/20/2024 08:51:21 128 Above high normal <126 (mg/dL) John james Performing Location [facility] [address] [facility] [place] [address]
--- OUTSIDE RECORDS SUMMARY | 2024-06-12 18:40 | External Medical Summary | Summary of Care ---
Author Name Unknown Organization [facility] Address [address] [facility] [address] Phone [phone] Care Team Providers Care Cable Armorer Operator Name Role Phone Terry Resendez MD Primary Care Provider [phone] Encounter Details Date Type Department Care Team (Late st Contact Info) Description 03/23/2024 Orders Only PATIENT PORTAL DO NOT DELETE THIS DEPT USED BY [place] [id number] Allergies Active Allergy Reactions Criticality Noted Date Comments Ciprofloxacin Hives 09/01/2017 Statins 11/15/2020 All statins Simvastatin 05/07/2006 Severe myalgia's documented as of this encounter (statuses as of 03/23/2024) Medications Medication Sig Dispensed Refills Start Date End Date Status ASPIRIN EC 81 MG PO TBECIndications:Coron johan atherosclerosis of [place] coronary artery Take one pill daily 100 [...] Active levETIRAcetam 500 MG Oral Tablet (Keppra)Indications:S radha grand mal (HCC) 1 twice a day [...] NEEDED FOR NAUSEA. 30 Tablet 12/16/2023 Active HYDROcodone-Acetamino phen 5-325 MG Oral TabletIndications:Chr onic bilateral low back pain with right-sided sciatica Take 1 Tablet by mouth 3 times a day as needed for Pain, Mild or Pain, Moderate. 30 day RX 90 Tablet 03/01/2024 Active Metoprolol Succinate ER 25 MG Oral [...] 15 minutes 25 Tablet 11 03/21/2024 Active Hospital, Clinic, or Other Facility Administered Medication Ordered Dose Route Frequency Start Date End Date Status albuterol sulfate (PROVENTIL) (2.5 MG/3ML) 0.083% inhalation solution 2.5 mgIndications:COPD, severity to be determined (HCC) 2.5 mg NEBULIZER Q4H PRN 07/05/2019 Active documented as of this encounter (statuses as of 03/23/2024) Active Problems Problem Noted Date Diagnosed Date [...] as of this encounter (statuses as of 03/23/2024) Resolved Problems Problem Noted Date Diagnosed Date [...] as of this encounter (statuses as of 03/23/2024) Immunizations Name Administration Dates Next Due Pneumococcal [...] Care Team (Late st Contact Info) Description 04/15/2024 2:00 PM EDT Office Visit Family [facility] [address] [place] [phone] Terry Resendez MD [address] [place] [address] 04/26/2024 8:15 AM EDT Office Visit Urology, [facility] [address] [address] Mauricio Ramos MD [address] [address] 05/02/2024 3:40 PM EDT Office Visit Neurology [facility] [address] [place] [address] Elsie Capone MD [address] [facility] [place] [address] 06/06/2024 3:30 PM EDT Office Visit Cardiology, [facility] [address] [address] Nargis Power CRNP [address] [place] [address] Scheduled Procedures Name Priority Associated Diagnoses Date/Ti [...] D LEVEL ONCE IN A LIFETIME-USE SMARTSET# [id number] Completed 12/18/2015, 02/09/2015, 06/29/2014, Additional history exists Hepatitis C Screening Completed 07/27/2017 Lung Cancer Screening Completed 07/09/2023 , 06/20/2019, [...] this encounter Medical Devices Implanted Type Area Valet Device Identifier Shelf Expiration Date Model / Serial / Lot Stent Carotid [id number] [id number] - [id number] Implanted:Qty: 1 on 08/23/2013 at [place] [facility] Right: Carotid [facility] VASCULAR DEVICES 02/21/2016 [id number] / / [id number] documented as of this encounter Advance Directives [...] 07/10/2017 5:59 PM 07/13/2017 3:18 PM This orde r reflects the patients wishes and were consensually agreed upon. Question Answer Comments Discussion of Advance Directives occurred with: Patient/Family Does the patient have a Living Will? Yes, not cu rrently available Does the patient have Health Care Power of Cylinder Head Assembler? No * Full Code Date Activated Date Inactivated Comments 08/23/2013 8:39 AM 08/24/2013 2:49 PM This order r eflects the patients wishes and were consensually agreed upon. Care Teams Cable Armorer Operator Relationship Specialty Start Date End Date Terry Resendez MD [address] [place] [address] PCP - General 04/07/1996 documented as of this encounter
--- OUTSIDE RECORDS SUMMARY | 2024-06-12 18:40 | External Medical Summary | Summary of Care ---
Author Name Unknown Organization [facility] Address [address] [place] [address] Phone [phone] Care Team Providers Care Poultry Barn Manager Name Role Phone Terry Resendez MD Primary Care Provider [phone] Reason for Visit * Reason Comments Outpatient Testing Encounter Details Date Type Department Care Team (Late st Contact Info) Description 04/20/2024 8:50 AM EDT Laboratory Laboratory, [facility] [address] [place] [address] [facility] [address] [place] [address] Diabetes mellitus with peripheral angiopathy [...] 81 MG PO TBECIndications:Coron johan atherosclerosis of [place] coronary artery Take one pill daily 100 [...] 04/26/2024 8:15 AM EDT Office Visit Urology, [facility] [address] [place] [address] Mauricio Ramos MD [address] [place] [address] 05/02/2024 3:40 PM EDT Office Visit Neurology [facility] [address] [facility] [place] [address] Elsie Capone MD [address] [facility] [place] [address] 06/06/2024 3:30 PM EDT Office Visit Cardiology, [facility] [address] [place] [address] Nargis Power CRNP [address] [place] [address] 10/19/2024 2:00 PM EST Office Visit [facility] [address] [place] [phone] Terry Resendez MD [address] [place] [address] Pending Results Name Type Priority Associated Diagnoses [...] Comments DISCUSS TOBACCO CESSATION (REFER TO SMARTSET #5352) 1954 Alpha-1 Antitrypsin 1972 Cologuard 1999 Fecal [...] D LEVEL ONCE IN A LIFETIME-USE SMARTSET# [id number] Completed 12/18/2015, 02/09/2015, 06/29/2014, Additional history exists [...] this encounter Medical Devices Implanted Type Area Protective Officer Device Identifier Shelf Expiration Date Model / Serial / Lot Stent Carotid 8-6x30 [id number] - [id number] Implanted:Qty: 1 on 08/23/2013 at [place] [facility] [place] Right: Carotid [facility] VASCULAR DEVICES 02/21/2016 [id number] / / [id number] documented as of this encounter Visit Diagnoses [...] the patient have Health Care Power of Controls Engineer? No * Full Code Date Activated Date Inactivated Comments 08/23/2013 8:39 AM 08/24/2013 2:49 PM This order r eflects the patients wishes and were consensually agreed upon. Care Teams Poultry Barn Manager Relationship Specialty Start Date End Date Terry Resendez MD [address] [place] [address] PCP - General 04/07/1996 documented as of this encounter
--- OUTSIDE RECORDS SUMMARY | 2024-06-12 18:40 | External Medical Summary | Summary of Care ---
Author Name Unknown Organization [facility] Address [address] [place] [address] Phone [phone] Care Team Providers Care Hris Developer Name Role Phone Sam Resendez MD Primary Care Provider Reason for Visit * Reason Comments eRx-Medication Refill Encounter Details Date Type Department Care Team (Late st Contact Info) Description 04/19/2024 Refill [facility] [address] [place] [address] Sam Resendez MD [address] [place] [address] Obstructive uropathy Allergies Active Allergy Reactions Criticality Noted Date Comments Ciprofloxacin Hives 09/01/2017 Statins 11/15/2020 All statins Simvastatin 05/07/2006 Severe myalgia's documented as of this encounter (statuses as of 04/20/2024) Medications Medication Sig Dispensed Refills Start Date End Date Status ASPIRIN EC 81 MG PO TBECIndications:Cor onary atherosclerosis of habematolel coronary artery Take one pill daily 100 [...] OTHER DAY 45 Capsule 1 4 Active Tamsulosin HCl 0.4 MG Oral Capsule (Flomax)Indications :Obstructive uropathy TAKE 1 CAPSULE BY MOUTH EVERY OTHER DAY 45 Capsule 3 3 04/20/20 24 Discontinued Hospital, Clinic, or Other Facility [...] encounter Miscellaneous Notes * Telephone Encounter - Cherri Barnett, [facility] - 04/20/2024 7:30 PM EDTSigned Prescriptions: Disp Refills Tamsulosin HCl 0.4 MG Oral Capsule (Flomax)45 Cap*1 Sig: TAKE ONE CAPSULE BY MOUTH EVERY OTHER DAYAuthorizing Provider: SAM RESENDEZ User: CHERRI BARNETT Electronically signed by Cherri Barnett [facility] at 04/20/2024 7:30 PM EDT documented in this encounter Plan of Treatment Upcoming Encounters Date Type Department Care Team (Late st Contact Info) Description 04/26/2024 8:15 AM EDT Office Visit [facility]rology, [facility] [address] [place] [address] Mauricio Ramos MD [address] [place] [address] 05/02/2024 3:40 PM EDT Office Visit Neurology [facility] [address] [facility] [place] [address] Elsie Capone MD [address] [facility] [place] [address] 06/06/2024 3:30 PM EDT Office Visit Cardiology, [facility] [address] [place] [address] Nargis Power CRNP [address] [facility] [place] [address] 10/19/2024 2:00 PM EST Office Visit [facility] [address] [place] [phone] Sam Resendez MD [address] [place] [address] Scheduled Procedures Name Priority Associated Diagnoses Date/Ti me COLONOSCOPY FLEXIBLE PROXIMA L DIAGNOSTIC Recall History of colonic polyps Health Maintenance Due Date Last Done Comments DISCUSS TOBACCO CESSATION (REFER TO SMARTSET #2921) 1955 Alpha-1 Antitrypsin 1972 Cologuard 1999 Fecal Occult Blood Test 1999 10/04/1998 Sigmoidoscopy 1999 *COPD SEVERITY VERIFIED BY PFT 08/22/2015 DXA Scan 11/27/2017 11/28/2015 *BISPHONATE OR OTHER ACCEPTABLE MEDICATION NEEDED FOR OSTEOPOROSIS (REFER TO SMARTSET #8029) 06/14/2018 Adult Wellness Visit 2020 Depression Monitoring 06/13/2021 06/13/2020 Colonoscopy 04/05/2022 04/05/2019, 03/24, 01/15/2016, Additional history exists COVID-19 Vaccine ( season) 2023 Influenza Vaccine (FLU shot) (#1) 2024 06/19/2017, [...] D LEVEL ONCE IN A LIFETIME-USE SMARTSET# [id number] Completed 12/18/2015, 02/09/2015, 06/29/2014, Additional history exists [...] this encounter Medical Devices Implanted Type Area Network Architect Manager Device Identifier Shelf Expiration Date Model / Serial / Lot Stent Carotid 8-6x30 [id number] - [id number] Implanted:Qty: 1 on 08/23/2013 at [place] [facility] [place] Right: Carotid [facility] : VASCULAR DEVICES 02/21/2016 [id number] / / [id number] documented as of this encounter Visit Diagnoses Diagnosis Obstructive uropathy Urinary obstruction, unspecified documented in this encounter Advance Directives * [...] the patient have Health Care Power of Medical Technologist Hematology? No * Full Code Date Activated Date Inactivated Comments 08/23/2013 8:39 AM 08/24/2013 2:49 PM This order r eflects the patients wishes and were consensually agreed upon. Care Teams Hris Developer Relationship Specialty Start Date End Date Sam Resendez MD [address] [place] [address] PCP - General 04/07/1996 documented as of this encounter
--- OUTSIDE RECORDS SUMMARY | 2024-06-12 18:40 | External Medical Summary | Summary of Care ---
Author Name Unknown Organization [facility] Address [address] [place] [address] Phone [phone] Care Team Providers Care Director Phone Name Role Phone Terry Resendez MD Primary Care Provider [phone] Reason for Visit * Reason Comments Follow Up Patient is here toda y for a six month visit.Patient has two wounds on his R lower arm that were bleeding as patient arrived. Used gauze to put pressure on to stop the bleeding.Patient's states that since his last stay in the hospital, something "isn't right." Wonders if he could have had a mini stroke. Patient was experiencing chest pain and SOB on Thursday/Thursday.Patient's states that since last office visit, patient has taken 6-8 nitros.See nursing note. Encounter Details Date Type Department Care Team (Late st Contact Info) Description 04/15/2024 2:00 PM EDT Office Visit [facility] [address] [place] [address] Terry Resendez MD [address] [place] [address] Diabetes mellitus with peripheral angiopathy (HCC)*; COPD, severity to be determined (HCC); Encounter for long-term (current) use of other medications; Facial swelling Allergies Active Allergy Reactions Criticality Noted Date Comments Ciprofloxacin Hives 09/01/2017 Statins 11/15/2020 All statins Simvastatin 05/07/2006 Severe myalgia's documented as of this encounter (statuses as of 04/15/2024) Medications Medication Sig Dispensed Refills Start Date End Date Status ASPIRIN EC 81 MG PO TBECIndications:Kal prado atherosclerosis of [place] coronary artery Take one pill daily 100 [...] as of this encounter (statuses as of 04/15/2024) Active Problems Problem Noted Date Diagnosed Date [...] as of this encounter (statuses as of 04/15/2024) Resolved Problems Problem Noted Date Diagnosed Date [...] as of this encounter (statuses as of 04/15/2024) Immunizations Name Administration Dates Next Due Pneumococcal [...] Sign Reading Time Taken Comments Blood Pressure 140/72 04/15/2024 2:17 PM EDT Pulse 75 04/15/2024 2:17 PM EDT Temperature 36.4 C (97.5 F) 04/15/2024 2:17 PM ED T Respiratory Rate 16 04/15/2024 2:17 PM EDT Oxygen Saturation 96% 04/15/2024 2:17 PM EDT Inhaled Oxygen Concentration - - Weight 103.3 kg (227 lb 12.8 oz) 04/15/2024 2:17 PM EDT Height 180.3 cm (5' 11") 04/15/2024 2:17 PM EDT Body Mass Index 31.77 04/15/2024 2:17 PM EDT documented in this [...] Progress Notes * Terry Resendez MD - 04/15/2024 2:36 PM EDT Subjective: Patel León is a 68 year old male. Chief Complaint Patient presents with Follow Up Patient is here today for a six month visit. Patient has two wounds on his R lower arm that were bleeding as patient arrived. Used gauze to put pressure on to stop the bleeding. Patient's states that since his last stay in the hospital, something "isn't right." Wonders ifhe could have had a mini stroke. Patient was experiencing chest pain and SOB on Thursday/Thursday. Patient's states that since last office visit, patient has taken 6-8 nitros. See nursing note. HPI: 68-year-old seen today as a regular routine exam. I saw him recently following [facility] hospital admission. Although he really does not give complaints, his tells me she does not think he has been doing as well the last couple of weeks. She has a hard time articulating exactly what is different but he does not seem to be responding same as usual. He has had a few more episodes of chest pain. He told me that nitroglycerin helps but I am not sure how quickly. Also reportedly Um sometimes dragging his right leg. So there was some question as to whether he may have had a Um stroke. During the hospitalization recently he had CT scan of the chest but not of the head. He is on aspirin 81 mgand clopidogrel 75 mg daily. Additionally it is reported that he has some facial fullness. Again heis having some difficulties with urinary frequency. He had improvement least immediately after he had a green light procedure of the prostate with Dr. Ramos in December of this year. He does not check blood sugars but typically these have been okay in his diabetes has been controlled as evidenced by hemoglobin A1c of 5.5 a year ago. Patient Active Problem List Diagnosis Esophageal reflux [...] 7.0% (HCC) COPD, severity to be determined ([facility]) MEDICATION USE AGREEMENT Senile osteoporosis Urinary retention [...] moderate (HCC) Seizure, grand mal ([facility]) BPH with obstruction/lower urinary tract symptoms [...] 4 hours as needed for Pain. As [id number] Tab 0 Tamsulosin HCl 0.4 MG Oral Capsule [...] statins Zocor [Simvastatin] Severe myalgia's Objective: BP 140/72 | Pulse 75 | Temp 36.4 C (97.5 F) (Tympanic) | Resp 16 | Ht 1.803 m (5' 11") | Wt 103.3 kg (227 lb 12.8 oz) | SpO2 96% | BMI 31.77 kg/m | BSA 2.27 m Physical Exam: CONST: alert, pleasant, no acute distress HEAD I do believe there some diffuse facial fullness NECK: supple, soft, no adenopathy Eyes - [...] evidence of paranoia, thought is non-tangential. SKIN: no rash or significant lesions Assessment plan Ischemic heart disease-presumably his chest pain is related to coronary disease although this is not absolutely certain but we do not have a good explanation otherwise. Continue the nitroglycerin on a p.r.n. basis. When I last saw him couple weeks ago we would increase his metoprolol slightly. COPD, severity to be determined (HCC)-stable Encounter for long-term (current) use of other medications-needs B12 level Urinary frequency-probably obstructive uropathy. He does have follow up with Dr. Ramos within 2 weeks. Check hemoglobin A1c just to be certain he has not developed uncontrolled diabetes and that could be the cause of urinary frequency. Facial fullness-etiology is unclear. Check an a.m. cortisol level. Routine health maintenance-he does not do flu shots in prefers not to do any vaccines. Flap laceration over his right forearm (2)-treated with triple antibiotic ointment in Um dressing. Terry Resendez MD documented in this encounter Nursing Notes * Cyndie Sanchez MED ASSIST - 04/15/2024 2:16 PM EDT The patient has been properly identified by confirmation of name and date of . Chief Complaint Patient presents with Follow Up Patient is here today for a six month visit. Patient has two wounds on his R lower arm that were bleeding as patient arrived. Used gauze to put pressure on to stop the bleeding. Patient's states that since his last stay in the hospital, something "isn't right." Wonders ifhe could have had a mini stroke. Patient was experiencing chest pain and SOB on Thursday/Thursday. Patient's states that since last office visit, patient has taken 6-8 nitros. See nursing note. Patient's states that he is urinating more frequently, similar to when he had bladder surgery. documented in this encounter Plan of Treatment Upcoming Encounters Date Type Department Care Team (Late st Contact Info) Description 04/26/2024 8:15 AM EDT Office Visit Urology, [facility] [address] [place] [address] Mauricio Ramos MD [address] [place] [address] 05/02/2024 3:40 PM EDT Office Visit [facility] [address] Elsie Capone MD [address] [facility] [address] 06/06/2024 3:30 PM EDT Office Visit Cardiology, [facility] [address] [place] [address] Nargis Power CRNP [address] [place] [place] [address] 10/19/2024 2:00 PM EST Office Visit [facility] [address] [place] [address] Terry Resendez MD [address] [place] [facility] [place] [address] Scheduled Orders Name Type Priority Associated Diagnoses Orde r Schedule VITAMIN B12 Lab Routine Encounter for long-term (current) use of other medications Expected: 04/15/2024 (Approximate), Expires: 05/16/2025 HEMOGLOBIN A1C Lab Routine Diabetes mellitus with peripheral angiopathy (HCC) Expected: 04/15/2024 (Approximate), Expires: 04/15/2025 CORTISOL Lab Routine Facial swelling Expected: 04/15/2024 (Approximate), Expires: 04/15/2025 Scheduled Procedures Name Priority Associated Diagnoses Date/Ti [...] D LEVEL ONCE IN A LIFETIME-USE SMARTSET# [id number] Completed 12/18/2015, 02/09/2015, 06/29/2014, Additional history exists [...] this encounter Medical Devices Implanted Type Area Vice President Tax Device Identifier Shelf Expiration Date Model / Serial / Lot Stent Carotid 8-6x30 [id number] - [id number] Implanted:Qty: 1 on 08/23/2013 at OR [facility] Right: Carotid [facility] : VASCULAR DEVICES 02/21/2016 [id number] / / [id number] documented as of this encounter Visit Diagnoses Diagnosis Diabetes mellitus with peripheral angiopathy (HCC)- Primary Type II or unspecified type diabetes mellitus with peripheral circulatory disorders, not stated as uncontrolled COPD, severity to be determined (HCC) Chronic airway obstruction, not elsewhere classified Encounter for long-term (current) use of other [...] the patient have Health Care Power of Organic Chemist? No * Full Code Date Activated Date Inactivated Comments 08/23/2013 8:39 AM 08/24/2013 2:49 PM This order r eflects the patients wishes and were consensually agreed upon. Care Teams Director Phone Relationship Specialty Start Date End Date Terry Resendez MD [address] [place] [address] PCP - General 04/07/1996 documented as of this encounter
--- OUTSIDE RECORDS SUMMARY | 2024-06-12 18:40 | External Medical Summary | Summary of Care ---
Author Name Unknown Organization [facility] Address [address] [place] [address] Phone [phone] Care Team Providers Care Windows Deployment Technician Name Role Phone Sam Resendez MD Primary Care Provider [phone] Reason for Visit * Reason Onset Date Comments Medication Refill 04/01/2024 Encounter Details Date Type Department Care Team (Late st Contact Info) Description 04/01/2024 Refill [facility] [place] [address] [place] [address] Sam Resendez MD [address] [place] [address] Chronic bilateral low back pain with right-sided sciatica Allergies Active Allergy Reactions Criticality Noted Date Comments Ciprofloxacin Hives 09/01/2017 Statins 11/15/2020 All statins Simvastatin 05/07/2006 Severe myalgia's documented as of this encounter (statuses as of 04/03/2024) Medications Medication Sig Dispensed Refills Start Date End Date Status ASPIRIN EC 81 MG PO TBECIndications:Esther nary atherosclerosis of [place] coronary artery Take one pill daily 100 [...] Pain. As needed 30 Tab 8 Active Tamsulosin HCl 0.4 MG Oral Capsule [...] Moderate. 30 day RX 90 Tablet 4 04/01/20 24 Discontinu ed(Refill) Hospital, Clinic, or Other Facility Administered Medication Ordered Dose Route Frequency Start Date End Date Status albuterol sulfate (PROVENTIL) (2.5 MG/3ML) 0.083% inhalation solution 2.5 mgIndications:COPD, severity to be determined (HCC) 2.5 mg NEBULIZER Q4H PRN 07/05/2019 Active documented as of this encounter (statuses as of 04/03/2024) Active Problems Problem Noted Date Diagnosed Date [...] as of this encounter (statuses as of 04/03/2024) Resolved Problems Problem Noted Date Diagnosed Date [...] as of this encounter (statuses as of 04/03/2024) Immunizations Name Administration Dates Next Due Pneumococcal [...] Telephone Encounter - Sam Resendez MD - 04/03/2024 8:42 AM EDTSigned Prescriptions: Disp Refills HYDROcodone-Acetaminophen 5-325 MG Oral Ta*90 Tab*0 Sig: Take 1 Tablet by mouth 3 times a day as needed for Pain, Mild or Pain, Moderate. 30 day RX Authorizing Provider: SAM RESENDEZ * [facility] [place] 6:04 AM EDTPending Prescriptions: Disp Refills HYDROcodone-Acetaminophen 5-325 MG Oral Ta*90 Tab*0 Sig: Take 1 Tablet by mouth 3 times a day as needed for Pain, Mild or Pain, Moderate. 30 day RX * [facility] [place] [facility] 04/03/2024 6:03 AM EDT I have reviewed the patients controlled substance dispensing history in the Prescription Drug Monitoring Program in compliance with the [facility] regulations before prescribing a controlled substance. PDMP checked on 04/03/2024. Pending Prescriptions: Disp Refills HYDROcodone-Acetaminophen 5-325 MG Oral T*90 Tab*0 Sig: Take 1 Tablet by mouth 3 times a day as needed for Pain, Mild or Pain, Moderate. 30 day RX Last Visit: 03/21/2024 (in office), Visit date not found (telemedicine) Next Visit: 04/15/2024 Date medication was last filled: 03/01/24 Date medication is due for refill: 03/30/24 Pharmacy: [id number] Is this request for [...] if appropriate. Thank You, Danielito De Jesus [facility] Clinical Pharmacist [facility] ([facility]) 04/03/2024, 6:04 AM Electronically signed by Danielito Gonsalves [facility] at 04/03/2024 6:04 AM EDT documented in this encounter Plan of Treatment Upcoming Encounters Date Type Department Care Team (Late st Contact Info) Description 04/15/2024 2:00 PM EDT Office Visit [facility] [address] [place] [address] Sam Resendez MD [address] [place] [address] 04/26/2024 8:15 AM EDT Office Visit Urology, [facility] [address] [address] Mauricio Ramos MD [address] [place] [address] 05/02/2024 3:40 PM EDT Office Visit Neurology [facility] [address] [facility] [place] [address] Elsie [facility]one MD [facility] [id number] 06/06/2024 3:30 PM EDT Office Visit Cardiology, [facility] [address] [place] [address] Nargis Power CRNP [address] [place] [address] Scheduled Procedures Name Priority Associated Diagnoses Date/Ti [...] D LEVEL ONCE IN A LIFETIME-USE SMARTSET# [id number] Completed 12/18/2015, 02/09/2015, 06/29/2014, Additional history exists [...] encounter Medical Devices Implanted Type Area Head Bookkeeper Device Identifier Shelf Expiration Date Model / Serial / Lot Stent Carotid [id number] [id number] - [id number] Implanted:Qty: 1 on 08/23/2013 at OR [facility] [place] Right: Carotid [facility] : VASCULAR DEVICES 02/21/2016 [id number] / / [id number] documented as of this encounter Visit Diagnoses [...] the patient have Health Care Power of Landcare Facilitator? No * Full Code Date Activated Date Inactivated Comments 08/23/2013 8:39 AM 08/24/2013 2:49 PM This order r eflects the patients wishes and were consensually agreed upon. Care Teams Windows Deployment Technician Relationship Specialty Start Date End Date Sam Resendez MD [address] [place] [address] PCP - General 04/07/1996 documented as of this encounter
--- OUTSIDE RECORDS SUMMARY | 2024-06-12 18:40 | External Medical Summary | Summary of Care ---
Author Name Unknown Organization [facility] Address [address] [place] [address] Phone [phone] Care Team Providers Care Rose Grader Name Role Phone Sam Resendez MD Primary Care Provider [phone] Reason for Visit * Reason Comments Follow Up * Evaluate & Treat - Unlimited Visits (Within 3 days (urgent)) - Authorized Specialty Diagnoses / Procedures Referred By Contenedelia t Referred To Contact Urology Diagnoses Urinary retention Urinary incontinence, unspecified type Subjective fever Dysuria Nichole Guido MD [address] [place] [address] Referral ID Status Reason Start Date Expiration Date Visits Requested Visits Authorized [id number] Authorized Specialty Services Required 05/18/2023 05/18/2024 [id number] Encounter Details Date Type Department Care Team (Late st Contact Info) Description 04/26/2024 8:15 AM EDT Office Visit Urology, [facility] [address] [facility] [place] [address] Mauricio Ramos MD [address] [address] [...] 81 MG PO TBECIndications:Kal prado atherosclerosis of [place] coronary artery Take one pill daily 100 [...] 2.5 mgIndications:COPD, severity to be determined ([facility]) 2.5 mg NEBULIZER Q4H PRN 07/05/2019 [...] Ramos MD - 04/26/2024 8:15 AM EDT [id number] PCP: [place] [address] Patel León is a 68 [...] 4 hours as needed for Pain. As [id number] Tab 0 Omeprazole 20 MG Oral Capsule [...] OTHER performed by [facility] at OR [facility] [place] CARDIAC CATH-CARDIOLOGY ONLY [...] performed by Dat Narayanan MD at OR [facility] CORONARY ANGIOGRAPHY W/LEFT HEART CATH 05/25/2017 CORONARY ANGIOGRAPHY W/LEFT HEART CATH performed by Martha Alford MD at CARDIAC LABS [facility] [place] INFORMATION Ankle fx repair. IR VERTEBRAL AUGMENTATION TECH ONLY 2015 L2/ Dr Barcenas MISCELLANEOUS ORDER 08/1999 left lateral elbow ligament repair MISCELLANEOUS ORDER ([facility] ONLY) 09/2003 right rotator cuff repair/ [place] OTHER 09/2006 left rotator cuff repair OTHER 2007 bilateral hip replacement (Dr Benavidez) PROSTATE, LASER VAPORIZATION N/A 12/31/2023 LASER VAPORIZATION PROSTATE performed by Mauricio Ramos MD at OR [facility] REMOVAL OF TONSILS, AGE 12+ TOTAL HIP REPLACEMENT & PROSTHESIS both hips, AVN TRANSCATH STENT-CAROTID ARTERY, W/EMBOL PROTECTION 08/23/2013 right carotid stent with cerebral angiogram. 08/23/13 Dr. Chen. 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 adenomatous/repeat colonoscopy in 1 yr Carotid artery stenosis CLASSICAL MIGRAINE WITHOU MENTION OF INTRACTABLE MIGRAINE 01/14/2002 Compression fracture of L2 lumbar vertebra (HCC) 10/16/2015 Coronary atherosclerosis of qawalangin coronary artery 2006 total occ RCA// 40% [...] 05/02/2024 3:40 PM EDT Office Visit Neurology [facility] [address] [place] [address] Elsie Capone MD [address] [place] [address] 06/06/2024 3:30 PM EDT Office Visit Cardiology, [facility] [address] [place] [address] Nargis Power CRNP [address] [place] [address] 09/13/2024 9:15 AM EST Office Visit Urology, [facility] [address] [place] [address] Mauricio Ramos MD [address] [place] [address] 10/19/2024 2:00 PM EST Office Visit [facility] [address] [place] [address] Sam Resendez MD [address] [place], [place] [id number] Scheduled Orders Name Type Priority Associated Diagnoses Orde r Schedule CULTURE, URINE, QUANTITATIVE Lab Routine BPH with obstruction/lower urinary tract symptoms Urinary retention Urge incontinence Nocturia Expected: 04/26/2024, Expires: 04/26/2025 Scheduled Procedures Name Priority Associated Diagnoses Date/Ti me COLONOSCOPY FLEXIBLE PROXIMA L DIAGNOSTIC Recall History of colonic polyps Health Maintenance Due Date Last Done Comments DISCUSS TOBACCO CESSATION (REFER TO SMARTSET #8569) 1954 Alpha-1 Antitrypsin 1972 Cologuard 1999 Fecal [...] D LEVEL ONCE IN A LIFETIME-USE SMARTSET# [id number] Completed 12/18/2015, 02/09/2015, 06/29/2014, Additional history exists [...] this encounter Medical Devices Implanted Type Area Student Affairs Dean Device Identifier Shelf Expiration Date Model / Serial / Lot Stent Carotid 8-6x30 [id number] - [id number] Implanted:Qty: 1 on 08/23/2013 at OR [facility] [place] Right: Carotid [facility] : VASCULAR DEVICES 02/21/2016 [id number] / / [id number] documented as of this encounter Visit Diagnoses [...] the patient have Health Care Power of Forklift Truck Mechanic? No * Full Code Date Activated Date Inactivated Comments 08/23/2013 8:39 AM 08/24/2013 2:49 PM This order r eflects the patients wishes and were consensually agreed upon. Care Teams Rose Grader Relationship Specialty Start Date End Date Sam Resendez MD [address] [place] [address] PCP - General 04/07/1996 documented as of this encounter
--- NOTE | 2024-06-12 19:04 | Emergency Department Note ---
Impression & Plan Acute hyponatremia, Weakness, Headache ED Provider Note Provider: Deion Campbell MD DATE OF SERVICE: 06/12/2024 CHIEF COMPLAINT: Pain/headache, nausea HISTORY OF PRESENT ILLNESS: Patient is a 68-year-old gentleman significant past medical history including CAD, CVA, alcoholism with hyponatremia, seizure disorder presenting here today from home via ambulance. Patient reports that midday he developed some generalized pain as well as headache. He just feels miserable and has problems ambulating due to the pain. Is a heavy daily drinker. Denies any new significant numbness or weakness. Denies chest pain to me but does endorse a little bit of nausea and upper abdominal discomfort. No bloody vomiting or diarrhea reported. Maybe a little short of breath according to the patient. No trauma or syncope reported. Did not take anything for pain before coming in. PAST MEDICAL HISTORY: As noted above MEDICATIONS: Reviewed home medications SOCIAL HISTORY: Regular alcohol use, PHYSICAL EXAM: GENERAL: alert and oriented in no acute distress on stretcher Head: normocephalic and atraumatic EYES: No injection, discharge or icterus. PERRL, EOMI. NECK: Trachea midline. Supple good range of motion ENT: Mucous membranes pink and moist. LUNGS: Airway patent. No retractions. Breath sounds clear with good air entry bilaterally. HEART: Regular rate and rhythm. No chest wall tenderness ABDOMEN: Soft with maybe some slight epigastric discomfort. Not peritoneal no guarding SKIN: Acyanotic, warm, dry, without rashes EXTREMITIES: Without swelling, tenderness or deformity NEUROLOGICAL: No focal deficits. No aphasia. No facial droop or slurred speech. Normal strength and tone in the extremities. Sensation to gross touch normal. Ambulatory. EK bpm normal sinus rhythm. No PVC or PAC. No acute ST segment elevation or depression with QTc of 438. CONTINUOUS CARDIAC MONITORING: was ordered and showed a heart rate of 60s bpm in normal sinus rhythm Patient's laboratory studies and imaging reviewed. Differential includes Infection, dehydration, metabolic abnormality, hypo/hyperglycemia, electrolyte disturbance, anemia, hypoxia, cardiac sources, obstruction, pancreatitis, hepatitis, other GI disturbances, neurologic, as well as other pathologies. IMPRESSION/MEDICAL DECISION MAKING: Patient well-appearing in no distress. Vitals reassuring although he is somewhat hypertensive. Not tachycardic hypoxic or febrile. Onset today of some headache and diffuse myalgias and some upper abdominal pain and nausea. Given his history of alcohol use will obtain CT head as well as the abdomen pelvis and blood work and alcohol level. No seizure activity or syncope or trauma reported. Minimally tender in the abdomen not severely so. Given a history of hyponatremia sodium level was evaluated. EKG obtained but denies chest pain to me. Low suspicion for PE given his lack of tachycardia or hypoxia. Does not appear meningitic with good range of motion of the neck and lack of fever. Blood work without severe electrolyte abnormalities with mild hyponatremia of 128. No significant cytosis or anemia. No significant acute renal dysfunction. No transaminitis or low bilirubin. No evidence of active pancreatitis. POCUS did not significantly elevated. Head CT report from radiology without acute findings noted. CT abdomen pelvis question some chronic bladder outlet obstruction but no other acute pathology to explain his nausea and upper abdominal discomfort. Urinalysis negative for signs of infection. Chest x-ray questions some peribronchial thickening but no kurt consolidation or pleural effusion pneumothorax noted by report. Alcohol level somewhat elevated 129. Did receive a 500 mL bolus of normal saline. Respiratory viral panel again sent to exclude viral illness. Discussed with patient findings. Recommend given his weakness and hyponatremia we bring patient in for further care. Patient updated and agreeable with plan to stay still feeling weak. Headache still present. Consider Toradol but will defer to hospitalist. Hospitalist was contacted. Blood pressure does improve some here. Respiratory viral panel does return negative. DIAGNOSIS: Headache, weakness, acute hyponatremia DISPOSITION: Hospitalist will evaluate Patient was agreeable with this plan. Past Med/Surg History Problem List (Updated 04/16/24 @ 00:08 by Background Daemon) Headache (Acute) Weakness (Acute) Acute hyponatremia (Acute) Chest pain (Acute) Uncontrolled hypertension Demand ischemia Elevated troponin Vasovagal syncope Chest pain (Acute) H/O carotid stenosis "s/p EDITH stent placement 08/23/2013; Dr. Chen" Seizure disorder NSTEMI (non-ST elevated myocardial infarction) Syncope History of cardioembolic cerebrovascular accident (CVA) CAD (coronary artery disease) "S/p attempted PCI of a [employer] of right coronary artery, procedure aborted due to small localized focal dissection of aortic root in Jun 2017" NSTEMI (non-ST elevated myocardial infarction) Obesity (BMI 30-39.9) (Chronic) Osteoarthritis (Chronic) Chronic pain (Chronic) Impotence of organic origin (Chronic) Colloid cyst of third ventricle (Chronic) Thoracic compression fracture (Acute) Fracture of ankle, trimalleolar, right, open (Acute) Previous back surgery (Chronic) Medical History Bacteremia Hyponatremia Closed fracture of right iliac wing Closed fracture of left inferior pubic ramus Closed fracture of superior ramus of left pubis Closed fracture of right superior pubic ramus Closed fracture of right inferior pubic ramus Sacral fracture, closed Hypertension History of aortic dissection Tobacco use disorder Alcohol use disorder Left thalamic infarction "July 2017" Diabetes mellitus, type II COPD (chronic obstructive pulmonary disease) Statin intolerance ASCVD (arteriosclerotic cardiovascular disease) Classic migraine H/O: CVA (cerebrovascular accident) "2005; residual R sided weakness" Dyslipidemia GERD (gastroesophageal reflux disease) Depression Family History Son Spherocytosis Other Heart disease Social History Smoking Status: Current every day smoker Tobacco Type: Cigarettes Cigarettes Per Day: 1/2 pack per day; Second Hand Exposure: No; Do You Dip or Chew Tobacco: No; Tobacco Cessation Education Requested by Patient: No Hx Alcohol Use: Yes Alcohol type: beer Alcohol Intake Frequency: 4 or More x per/Week Alcohol Intake Frequency Comment: 5-6 beers/day Hx Substance Use: No Preferred Language: Greenlandic Communication Ability: Effective Communication Ability Comment: occassional expressive aphasia from prior CVA Noc Analyst Required: No Beliefs That Will Affect Care: None marital status: Current Living Situation: Spouse Current Living Situation Comment: How many Children do You have: 3 Other Information That Helps Us Care for You: No Feels Safe at Home: Yes Safety Concerns: Feels Safe At This Time Assistive Devices: None Allergies Allergies Allergy/AdvReac Type Severity Reaction Status Date / Time ciprofloxacin Allergy Severe hives Verified 06/12/24 20:26 simvastatin AdvReac Intermediate MUSCLE Verified 06/12/24 20:26 PAIN/WEAKNESS [id number]-[id number] Reductase AdvReac Intermediate MUSCLE Verified 06/12/24 20:26 Inhibitor PAIN/WEAKNESS [Dvvuvnz-Zfb-Fzw Reductase Inhibitor] Home Meds Home Medications Medication Instructions Recorded Confirmed clopidogrel 75 mg tablet 75 mg PO QAM ##0 06/14/15 06/12/24 nitroglycerin 0.4 mg sublingual 0.4 mg sublingual DIRECTED PRN 04/18/18 06/12/24 tablet Chest Pain ##0 aspirin 81 mg tablet,delayed 81 mg PO QAM 10/02/18 06/12/24 release cholecalciferol (vitamin D3) 50 50 mcg PO QAM 11/27/22 06/12/24 mcg (2,000 unit) capsule (Vitamin D3) duloxetine 30 mg capsule,delayed 30 mg PO AMPM 11/27/22 06/12/24 release finasteride 5 mg tablet 5 mg PO QAM 11/27/22 06/12/24 omeprazole 20 mg capsule,delayed 20 mg PO QAM 11/27/22 06/12/24 release lasmiditan 50 mg tablet (Reyvow) 50 mg PO DIRECTED PRN Migraine 07/09/23 06/12/24 Headache amlodipine 5 mg tablet 5 mg PO QAM 06/12/24 06/12/24 hydrocodone 5 mg-acetaminophen 325 1 tab PO TID 06/12/24 06/12/24 mg tablet isosorbide mononitrate 30 mg 90 mg PO QAM 06/12/24 06/12/24 tablet,extended release 24 hr levetiracetam 500 mg tablet 1,000 mg PO HS 06/12/24 06/12/24 levetiracetam 500 mg tablet 500 mg PO QAM 06/12/24 06/12/24 (Keppra) metoprolol succinate 25 mg 12.5 mg PO HS 06/12/24 06/12/24 tablet,extended release 24 hr metoprolol succinate 25 mg 25 mg PO QAM 06/12/24 06/12/24 tablet,extended release 24 hr solifenacin 5 mg tablet 5 mg PO QAM 06/12/24 06/12/24 Results & Data (ED) Vital Signs Vital Signs - 24 hr 06/12/24 18:39 06/12/24 18:42 Temperature 36.6 C Temperature Source Oral Pulse Rate 71 71 Respiratory Rate 18 Respiratory Effort / Characteristics Non-Labored Spontaneous Respiratory Depth Normal Respiratory Pattern Regular Blood Pressure 172/82 H Blood Pressure Mean 112 Pulse Oximetry 99 Oxygen Delivery Method Room Air Sepsis Recent Fever Within 48 Hours No Sepsis New/Unexplained Change in Mental Status N/A Sepsis Action Taken by Nursing No Action Required Laboratory Data 06/12/24 18:50 06/12/24 18:50 Lab Results 06/12/24 06/12/24 06/12/24 Range/Units 18:50 18:58 19:00 WBC 8.01 (4.8-10.8) K/ul RBC 4.50 L (4.70-6.10) M/uL Hgb 14.5 (14.0-18.0) g/dl POC Hgb 15.3 (14.0-18.0) g/dl Hct 42.1 (42.0-52.0) % POC Hct 45 (42-52) % MCV 93.6 (80.0-100.0) fL MCH 32.2 (25.0-34.0) pg MCHC 34.4 (32.0-36.0) g/dL RDW Std Deviation 40.4 (36.4-46.3) fL RDW Coeff of Keny 11.8 (11.5-14.5) % Plt Count 231 (130-400) K/uL MPV 8.5 L (9.4-12.4) fL Immature Gran % (Auto) 0.5 % Neut % (Auto) 51.7 % Lymph % (Auto) 37.6 % [place] % (Auto) 6.5 % Eos % (Auto) 2.2 % Baso % (Auto) 1.5 % Neut # (Auto) 4.14 (1.40-6.50) K/uL Lymph # (Auto) 3.01 (1.20-3.40) K/uL [place] # (Auto) 0.52 (0.11-0.59) K/uL Eos # (Auto) 0.18 (0.00-0.50) K/uL Baso # (Auto) 0.12 (0.00-0.20) K/uL Immature Gran # (Auto) 0.04 (0.01-0.20) K/uL PT 10.5 (9.0-12.0) Seconds INR 1.0 (0.9-1.1) POC Sodium 129 L (135-144) mmol/L Sodium 128 L (136-145) mmol/L POC Potassium 3.7 (3.3-5.0) mmol/L Potassium 3.7 (3.5-5.1) mmol/L POC Chloride 91 L (101-112) mmol/L Chloride 91 L (98-107) mmol/L Carbon Dioxide 25 (21-32) mmol/L POC Total CO2 24 (24-31) mmol/L Anion Gap 12 H (3-11) POC Anion Gap 18.0 (16-25) mmol/L POC BUN 8 (7-18) mg/dl BUN 9 (6-23) mg/dl Creatinine 0.96 (0.6-1.4) mg/dl POC Creatinine 1.1 (0.6-1.3) mg/dl Est Cr Clr Drug Dosing 89.3 ml/min eGFR 85.56 BUN/Creatinine Ratio 9.4 L (10-20) Glucose 116 H (70-99(Fasting)) mg/dl POC Glucose (other) 116 H (70-99) mg/dl Osmolality 297 (280-300) mOsm/kg Calcium 9.7 (8.6-10.3) mg/dl POC Ioniz Calcium Mony 1.13 (1.12-1.32) mmol/l Magnesium 2.0 (1.7-2.4) mg/dl Total Bilirubin 0.4 (0.2-1.0) mg/dl AST 54 H (13-39) U/L ALT 51 (7-52) U/L Alkaline Phosphatase 71 (34-104) U/L Total Creatine Kinase 40 (30-223) U/L Troponin I High Sens 8.3 (0-20) pg/ml Total Protein 8.1 (6.0-8.3) gm/dl Albumin 4.7 (3.4-5.0) gm/dl Globulin 3.4 (2.5-4.0) gm/dl Albumin/Globulin Ratio 1.4 (0.9-2) Lipase 56 (11-82) U/L Procalcitonin 0.11 (0-0.5) ng/ml TSH 2.420 (0.300-4.500) uIu/ml Urine Color Yellow Urine Appearance Clear (Clear) Urine pH 5.5 (4.5-7.5) Ur Specific [place] 1.007 (1.000-1.030) Urine Protein Negative (Negative) Urine Glucose (UA) Negative (Negative) Urine Ketones Negative (Negative) Urine Blood Negative (Negative) Urine Nitrite Negative (Negative) Urine Bilirubin Negative (Negative) Urine Urobilinogen Negative (Negative) Ur Leukocyte Esterase Negative (Negative) Urine Osmolality 176 L (500-800) mOsm/kg Ur Random Sodium 20 mmol/L Ethyl Alcohol mg/dL 129.4 H (<10.0) mg/dl Adenovirus (PCR) (NotDetected) B. pertussis DNA (PCR) (NotDetected) B.parapertussis DNA PCR (NotDetected) C. pneumoniae DNA (PCR) (NotDetected) Coronavirus OC43 (PCR) (NotDetected) Coronavirus HKU1 (PCR) (NotDetected) Coronavirus 229E (PCR) (NotDetected) SARS-CoV-2 (PCR) (NotDetected) Coronavirus NL63 (PCR) (NotDetected) Human Metapneumovir PCR (NotDetected) Influenza Type A (PCR) (NotDetected) Influenza Type B (PCR) (NotDetected) M. pneumoniae (PCR) (NotDetected) Parainfluenza 1 (PCR) (NotDetected) Parainfluenza 2 (PCR) (NotDetected) Parainfluenza 3 (PCR) (NotDetected) Parainfluenza 4 (PCR) (NotDetected) RSV (PCR) (NotDetected) Entero/Rhino (PCR) (NotDetected) 06/12/24 Range/Units 19:38 WBC (4.8-10.8) K/ul RBC (4.70-6.10) M/uL Hgb (14.0-18.0) g/dl POC Hgb (14.0-18.0) g/dl Hct (42.0-52.0) % POC Hct (42-52) % MCV (80.0-100.0) fL MCH (25.0-34.0) pg MCHC (32.0-36.0) g/dL RDW Std Deviation (36.4-46.3) fL RDW Coeff of Keny (11.5-14.5) % Plt Count (130-400) K/uL MPV (9.4-12.4) fL Immature Gran % (Auto) % Neut % (Auto) % Lymph % (Auto) % [place] % (Auto) % Eos % (Auto) % Baso % (Auto) % Neut # (Auto) (1.40-6.50) K/uL Lymph # (Auto) (1.20-3.40) K/uL [place] # (Auto) (0.11-0.59) K/uL Eos # (Auto) (0.00-0.50) K/uL Baso # (Auto) (0.00-0.20) K/uL Immature Gran # (Auto) (0.01-0.20) K/uL PT (9.0-12.0) Seconds INR (0.9-1.1) POC Sodium (135-144) mmol/L Sodium (136-145) mmol/L POC Potassium (3.3-5.0) mmol/L Potassium (3.5-5.1) mmol/L POC Chloride (101-112) mmol/L Chloride (98-107) mmol/L Carbon Dioxide (21-32) mmol/L POC Total CO2 (24-31) mmol/L Anion Gap (3-11) POC Anion Gap (16-25) mmol/L POC BUN (7-18) mg/dl BUN (6-23) mg/dl Creatinine (0.6-1.4) mg/dl POC Creatinine (0.6-1.3) mg/dl Est Cr Clr Drug Dosing ml/min eGFR BUN/Creatinine Ratio (10-20) Glucose (70-99(Fasting)) mg/dl POC Glucose (other) (70-99) mg/dl Osmolality (280-300) mOsm/kg Calcium (8.6-10.3) mg/dl POC Ioniz Calcium Mony (1.12-1.32) mmol/l Magnesium (1.7-2.4) mg/dl Total Bilirubin (0.2-1.0) mg/dl AST (13-39) U/L ALT (7-52) U/L Alkaline Phosphatase (34-104) U/L Total Creatine Kinase (30-223) U/L Troponin I High Sens (0-20) pg/ml Total Protein (6.0-8.3) gm/dl Albumin (3.4-5.0) gm/dl Globulin (2.5-4.0) gm/dl Albumin/Globulin Ratio (0.9-2) Lipase (11-82) U/L Procalcitonin (0-0.5) ng/ml TSH (0.300-4.500) uIu/ml Urine Color Urine Appearance (Clear) Urine pH (4.5-7.5) Ur Specific [place] (1.000-1.030) Urine Protein (Negative) Urine Glucose (UA) (Negative) Urine Ketones (Negative) Urine Blood (Negative) Urine Nitrite (Negative) Urine Bilirubin (Negative) Urine Urobilinogen (Negative) Ur Leukocyte Esterase (Negative) Urine Osmolality (500-800) mOsm/kg Ur Random Sodium mmol/L Ethyl Alcohol mg/dL (<10.0) mg/dl Adenovirus (PCR) Not Detected (NotDetected) B. pertussis DNA (PCR) Not Detected (NotDetected) B.parapertussis DNA PCR Not Detected (NotDetected) C. pneumoniae DNA (PCR) Not Detected (NotDetected) Coronavirus OC43 (PCR) Not Detected (NotDetected) Coronavirus HKU1 (PCR) Not Detected (NotDetected) Coronavirus 229E (PCR) Not Detected (NotDetected) SARS-CoV-2 (PCR) Not Detected (NotDetected) Coronavirus NL63 (PCR) Not Detected (NotDetected) Human Metapneumovir PCR Not Detected (NotDetected) Influenza Type A (PCR) Not Detected (NotDetected) Influenza Type B (PCR) Not Detected (NotDetected) M. pneumoniae (PCR) Not Detected (NotDetected) Parainfluenza 1 (PCR) Not Detected (NotDetected) Parainfluenza 2 (PCR) Not Detected (NotDetected) Parainfluenza 3 (PCR) Not Detected (NotDetected) Parainfluenza 4 (PCR) Not Detected (NotDetected) RSV (PCR) Not Detected (NotDetected) Entero/Rhino (PCR) Not Detected (NotDetected) Administered Medications Discontinued Medications Sodium Chloride (Nss) 500 mls @ 999 mls/hr IV .Q31M BRIAN Stop: 06/12/24 19:30 Last Infusion: 06/12/24 20:17 Dose: Infused Documented By: [facility] Admin: 06/12/24 19:34 Dose: 999 mls/hr Documented By: [facility] Acetaminophen (Ofirmev) 1,000 mg in 100 mls @ 400 mls/hr IV NOW STA Stop: 06/12/24 19:14 Last Infusion: 06/12/24 20:17 Dose: Infused Documented By: [facility] Admin: 06/12/24 19:34 Dose: 400 mls/hr Documented By: [facility] Thiamine HCl 100 mg/ Syringe 10 mls @ 2 mls/min IV NOW STA Stop: 06/12/24 20:28 Last Admin: 06/12/24 21:03 Dose: 2 mls/min Documented By: [facility] Insulin Aspart (Insulin Aspart Per Unit Charge) 0 units SC NOW STA Stop: 06/12/24 22:22 Last Admin: 06/12/24 22:34 Dose: Not Given Documented By: MEAGAN Ioversol (Optiray 320 100ml) 93 ml IV ONCE ONE Stop: 06/12/24 19:20 Last Admin: 06/12/24 19:19 Dose: 93 ml Documented By: VINH Ketorolac Tromethamine (Ketorolac Tromethamine 15 Mg/Ml Vial) 10 mg IV NOW ONE Stop: 06/12/24 20:01 Last Admin: 06/12/24 20:17 Dose: Not Given Documented By: [facility] Metoprolol Tartrate (Metoprolol Tartrate 1 Mg/Ml Vial) 2.5 mg IV NOW STA Stop: 06/12/24 21:08 Last Admin: 06/12/24 21:22 Dose: 2.5 mg Documented By: [facility] Ondansetron HCl (Ondansetron Inj 2 Mg/Ml 2 Ml Vial) 4 mg IV NOW STA Stop: 06/12/24 18:49 Last Admin: 06/12/24 19:35 Dose: 4 mg Documented By: [facility] Oxycodone HCl (Oxycodone Hcl Ir 5 Mg Tab (Immediate Release)) 5 mg PO NOW STA Stop: 06/12/24 20:16 Last Admin: 06/12/24 20:24 Dose: 5 mg Documented By: [facility] Imaging Data Radiologist's Impression: Chest X-Ray 06/12/24 18:46 XR chest 1V portable CLINICAL HISTORY: weakness TECHNIQUE: Single frontal radiograph of the chest was obtained. Comparison: Comparison is made to chest radiograph 03/14/2024 FINDINGS: No lines and tubes are seen. The cardiomediastinal silhouette is normal. Peribronchial thickening is seen. No evidence of pleural effusion or pneumothorax. IMPRESSION: Peribronchial thickening is seen compatible with infectious/inflammatory airways disease or viral pneumonia. No kurt consolidation is seen. ACT 112: Negative or not required by law. Electronically signed by: Jimmy Qureshi M.D. 06/12/2024 7:[address] 06/12/24 18:47 CT head/brain wo con CLINICAL HISTORY: SANCHEZ, weak Technique: Contiguous axial CT images of the head were acquired from the base of the skull to the vertex without intravenous contrast administration. Images were viewed in brain, subdural and bone windows. Automated dose lowering techniques and/or adjustment according to patient size were utilized for this exam. Comparison: None available at the time of this dictation. Findings: Left frontal encephalomalacia is again seen. No acute intracranial findings. Stable colloid cyst. Imaged portions of the paranasal sinuses and mastoid air cells are clear. The orbits appear normal. There are no acute fractures of the calvaria or scalp swelling. Impression: No acute intracranial hemorrhage, no evidence of acute territorial infarction or other acute intracranial disease process. ACT 112: Negative or not required by law. Electronically signed by: Jimmy Qureshi M.D. 06/12/2024 7:35 PM Abdomen/Pelvis CT 06/12/24 18:49 CT abd pelvis IV con only CLINICAL HISTORY: nausea, weak, abd pain TECHNIQUE: Helical axial images of the abdomen and pelvis were obtained and displayed. Automated dose lowering techniques and/or adjustment according to patient size were utilized for this exam. This exam was performed with intravenous contrast. CT DOSE: 2033.89 mGy.cm COMPARISON: Comparison is made to CT abdomen pelvis 06/15/2021 FINDINGS: Lower chest: No acute abnormality. Liver: Hepatic steatosis is noted. Gallbladder and biliary tree: No calcified gallstones. Normal caliber wall. No intra- or extrahepatic biliary ductal dilation. Pancreas: Unremarkable, no focal lesions. Spleen: Unremarkable. Adrenals: Unremarkable. Kidneys and ureters: Subcentimeter hypodensities are too small to characterize. Bladder: Diffuse homogeneous wall thickening is seen. Reproductive organs: Evaluation is limited by streak artifacts. Bowel: The appendix is normal. Lymph nodes Retroperitoneal: Unremarkable. Pelvic: Unremarkable. Mesenteric: Unremarkable. Peritoneum: Normal. Vessels: Atherosclerotic calcifications are seen. Abdominal wall: Unremarkable. Bones: Bilateral hip arthroplasties and compression deformity of L2 with a cemented arthroplasty. Degenerative changes are seen. Old healed fractures of the right pelvis. IMPRESSION: 1. No acute abnormality to explain nausea. 2. Hepatic steatosis. 3. Bladder wall thickening. This may represent chronic outlet obstruction however correlation for cystitis is recommended. ACT 112: Negative or not required by law. Electronically signed by: Jimmy Qureshi M.D. 06/12/2024 7:38 PM Discharge Plan Visit Data Chief Complaint: Pain (Generalized) ED Provider: Deion Campbell Discharge Problem: Acute hyponatremia, Weakness, Headache Patient Disposition: Being Evaluated by Hospitalist Discharge Instructions Interventions: ED Discharge Assessment Last Done: 06/12/24 21:08
[2024-06-12 19:10] LABS: iSTAT Creatinine 1.1 mg/dl (0.6-1.3); iSTAT Hemoglobin 15.3 g/dl (14.0-18.0); iSTAT Ionized Calcium 1.13 mmol/l (1.12-1.32); iSTAT Potassium 3.7 mmol/L (3.3-5.0)
[2024-06-12] MEDS: OPTIRAY 320 100ml IV ONE (19:19)
[2024-06-12 19:20] LABS: Basophils # (auto) 0.12 K/uL (0.00-0.20); Basophils % (auto) 1.5 %; Eosinophils # (auto) 0.18 K/uL (0.00-0.50); Eosinophils % (auto) 2.2 %; Hematocrit (blood only) 42.1 % (42.0-52.0); Hemoglobin 14.5 g/dl (14.0-18.0); Immature Granulocytes # (auto) 0.04 K/uL (0.01-0.20); Immature Granulocytes % (auto) 0.5 %; Lymphocytes # (auto) 3.01 K/uL (1.20-3.40); Lymphocytes % (auto) 37.6 %; Mean Corpuscular Hemoglobin 32.2 pg (25.0-34.0); Mean Corpuscular Hgb Conc 34.4 g/dL (32.0-36.0); Mean Corpuscular Volume 93.6 fL (80.0-100.0); Mean Platelet Volume 8.5 fL (9.4-12.4); Monocytes # (auto) 0.52 K/uL (0.11-0.59); Monocytes % (auto) 6.5 %; Neutrophils # (auto) 4.14 K/uL (1.40-6.50); Neutrophils % (auto) 51.7 %; Platelet Count 231 K/uL (130-400); RDW Coefficient of Variation 11.8 % (11.5-14.5); RDW Standard Deviation 40.4 fL (36.4-46.3); White Blood Count 8.01 K/ul (4.8-10.8)
[2024-06-12 19:25] LABS: Albumin Globulin Ratio 1.4 (0.9-2); Albumin Level 4.7 gm/dl (3.4-5.0); BUN Creatinine Ratio 9.4 (10-20); Bilirubin,Total 0.4 mg/dl (0.2-1.0); Calcium 9.7 mg/dl (8.6-10.3); Creatinine Clr Calc Pharmacy 89.3 ml/min; Globulin 3.4 gm/dl (2.5-4.0); Potassium 3.7 mmol/L (3.5-5.1); Total Protein 8.1 gm/dl (6.0-8.3)
[2024-06-12 19:32] LABS: Troponin I High Sensitivity 8.3 pg/ml (0-20)
[2024-06-12] MEDS: ACETAMINOPHEN 1,000 MG/100 ML VIAL IV STA (19:34)
[2024-06-12] MEDS: SODIUM CHLORIDE 0.9% 500 ML IV SCH (19:34)
[2024-06-12] MEDS: ONDANSETRON INJ 2 MG/ML 2 ML VIAL IV STA (19:35)
--- NOTE | 2024-06-12 19:36 | CT Scan Report ---
CT head/brain wo con CLINICAL HISTORY: melvi SANCHEZ Technique: Contiguous axial CT images of the head were acquired from the base of the skull to the denilson elton without intravenous contrast administration. Images were viewed in brain, subdural and bone [facility]. Automated dose lowering techniques and/or adjustment according to patient size were utilized for this exam. Comparison: None available at the time of this dictation. Findings: Left frontal encephalomalacia is again seen. No acute intracranial findings. Stable colloid cyst. Imaged portions of the paranasal sinuses and mastoid air cells are clear. The orbits appear normal. There are no acute fractures of the calvaria or scalp swelling. Impression: No acute intracranial hemorrhage, no evidence of acute territorial infarction or other acute intracra nial disease process. ACT 112: Negative or not required by law. Electronically signed by: Jimmy Qureshi M.D. 06/12/2024 7:35 PM
[2024-06-12 19:38] LABS: Prothrombin Time 10.5 Seconds (9.0-12.0)
--- NOTE | 2024-06-12 19:39 | XRay Report ---
XR chest 1V portable CLINICAL HISTORY: weakness TECHNIQUE: Single frontal radiograph of the chest was obtained. Comparison: Comparison is made to chest radiograph 03/14/2024 FINDINGS: No lines and tubes are seen. The cardiomediastinal silhouette is normal. Peribronchial thickening is seen. No evidence of pleural effusion or pneumothorax. IMPRESSION: Peribronchial thickening is seen compatible with infectious/inflammatory airways disease or viral pne umonia. No kurt consolidation is seen. ACT 112: Negative or not required by law. Electronically signed by: Jimmy Qureshi M.D. 06/12/2024 7:38 PM
--- NOTE | 2024-06-12 19:39 | CT Scan Report ---
CT abd pelvis IV con only CLINICAL HISTORY: nausea, weak, abd pain TECHNIQUE: Helical axial images of the abdomen and pelvis were obtained and displayed. Automated dose lowering techniques and/or adjustment according to patient size were utilized for this exam. This e xam was performed with intravenous contrast. CT DOSE: 2033.89 mGy.cm COMPARISON: Comparison is made to CT abdomen pelvis 06/15/2021 FINDINGS: Lower chest: No acute abnormality. Liver: Hepatic steatosis is noted. Gallbladder and biliary tree: No calcified gallstones. Normal caliber wall. No intra- or extrahepatic biliary ductal dilation. Pancreas: Unremarkable, no focal lesions. Spleen: Unremarkable. Adrenals: Unremarkable. Kidneys and ureters: Subcentimeter hypodensities are too small to characterize. Bladder: Diffuse homogeneous wall thickening is seen. Reproductive organs: Evaluation is limited by streak artifacts. Bowel: The appendix is normal. Lymph nodes Retroperitoneal: Unremarkable. Pelvic: Unremarkable. Mesenteric: Unremarkable. Peritoneum: Normal. Vessels: Atherosclerotic calcifications are seen. Abdominal wall: Unremarkable. Bones: Bilateral hip arthroplasties and compression deformity of L2 with a cemented arthroplasty. Deg enerative changes are seen. Old healed fractures of the right pelvis. IMPRESSION: 1. No acute abnormality to explain nausea. 2. Hepatic steatosis. 3. Bladder wall thickening. This may represent chronic outlet obstruction however correlation for cy stitis is recommended. ACT 112: Negative or not required by law. Electronically signed by: Jimmy Qureshi M.D. 06/12/2024 7:38 PM
[2024-06-12 19:41] LABS: Thyroid Stimulating Hormone 2.42 uIu/ml (0.300-4.500)
[2024-06-12 19:44] LABS: Appearance Urine Clear (Clear); Bilirubin Urine Negative (Negative); Blood Urine Negative (Negative); Color Urine Yellow; Glucose Urine UA Negative (Negative); Ketones Urine Negative (Negative); Leukocyte Esterase Urine Negative (Negative); Nitrite Urine Negative (Negative); Protein Urine Negative (Negative); Specific Gravity Urine 1.007 (1.000-1.030); Urobilinogen Urine Negative (Negative); pH Urine 5.5 (4.5-7.5)
[2024-06-12] MEDS: KETOROLAC TROMETHAMINE 15 MG/ML VIAL IV ONE (20:17)
[2024-06-12] MEDS: oxyCODONE HCL IR 5 MG TAB (IMMEDIATE RELEASE) PO STA (20:24)
--- NOTE | 2024-06-12 20:25 | History & Physical Report ---
Date of Service June 12, 2024 Assessment & Plan (1) Hyponatremia: Plan: Acute on chronic hyponatremia History alcohol abuse Headache possibly from uncontrolled hypertension hx CAD status post stent/PVD status post surgery mild AR hyperlipidemia/statin intolerance hx CVA seizure disorder, stable on Keppra regimen COPD, lung status at baseline DM2 on oral medications, well-controlled as of recent hemoglobin A1c of 6.24 March 2024 ongoing tobacco/alcohol abuse Admit to medical telemetry Hyponatremia workup recheck serum sodium after initial fluid bolus given at the ER TIKA S at risk protocol, DT precautions Titrate home BP meds ISS BG goal [id number], carb count coverage Nicotine patch as needed DVT prophylaxis Lovenox subcu Full code Patient's requesting updates providers. Tawana Maria Dolores León, contact #[phone]. Text document was generated using [employer] voice recognition software. It may contain grammatical or spelling errors. Kindly contact undersigned for clarification of any documentation item in question. History of Present Illness Chief Complaint: Headache Primary Care Provider: Terry Resendez MD Medical history significant for CAD status post stent/PVD status post surgery, mild AR, HTN, hyperlipidemia/statin intolerance, hx CVA, seizure disorder, COPD as per records, DM2 on oral medications, chronic hyponatremia, GERD, migraine, BPH, ongoing tobacco/alcohol abuse. Last confinement February 2024 for chest pain attributed to uncontrolled hypertension. Patient had generalized aches later followed by achy right-sided headache somewhat different from migraine attack. Chronic photophobia. Denies chest pain, unusual SOB. Compliant with home medications. Denies unusual stress at home. SBP 170s upon arrival at the ER. 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 Allergies Allergy/AdvReac Type Severity Reaction Status Date / Time ciprofloxacin Allergy Severe hives Verified 06/12/24 20:26 simvastatin AdvReac Intermediate MUSCLE Verified 06/12/24 20:26 PAIN/WEAKNESS Nowvfek-SUN-SoC Reductase AdvReac Intermediate MUSCLE Verified 06/12/24 20:26 Inhibitor PAIN/WEAKNESS [Mbnvyxm-Uxo-Dmq Reductase Inhibitor] Home Medications Medication Instructions Recorded Confirmed Type clopidogrel 75 mg tablet 75 mg PO QAM ##0 06/14/15 06/12/24 History nitroglycerin 0.4 mg sublingual 0.4 mg sublingual DIRECTED PRN 04/18/18 06/12/24 History tablet Chest Pain ##0 aspirin 81 mg tablet,delayed 81 mg PO QAM 10/02/18 06/12/24 History release cholecalciferol (vitamin D3) 50 50 mcg PO QAM 11/27/22 06/12/24 History mcg (2,000 unit) capsule (Vitamin D3) duloxetine 30 mg capsule,delayed 30 mg PO AMPM 11/27/22 06/12/24 History release finasteride 5 mg tablet 5 mg PO QAM 11/27/22 06/12/24 History omeprazole 20 mg capsule,delayed 20 mg PO QAM 11/27/22 06/12/24 History release lasmiditan 50 mg tablet (Reyvow) 50 mg PO DIRECTED PRN Migraine 07/09/23 06/12/24 History Headache amlodipine 5 mg tablet 5 mg PO QAM 06/12/24 06/12/24 History hydrocodone 5 mg-acetaminophen 325 1 tab PO TID 06/12/24 06/12/24 History mg tablet isosorbide mononitrate 30 mg 90 mg PO QAM 06/12/24 06/12/24 History tablet,extended release 24 hr levetiracetam 500 mg tablet 1,000 mg PO HS 06/12/24 06/12/24 History levetiracetam 500 mg tablet 500 mg PO QAM 06/12/24 06/12/24 History (Keppra) metoprolol succinate 25 mg 12.5 mg PO HS 06/12/24 06/12/24 History tablet,extended release 24 hr metoprolol succinate 25 mg 25 mg PO QAM 06/12/24 06/12/24 History tablet,extended release 24 hr solifenacin 5 mg tablet 5 mg PO QAM 06/12/24 06/12/24 History Past Med/Surg History Problem List (Updated 04/16/24 @ 00:08 by Background Daemon) Headache (Acute) Weakness (Acute) Acute hyponatremia (Acute) Chest pain (Acute) Uncontrolled hypertension Demand ischemia Elevated troponin Vasovagal syncope Chest pain (Acute) H/O carotid stenosis "s/p EDITH stent placement 08/23/2013; Dr. 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) Thoracic compression fracture (Acute) Fracture of ankle, trimalleolar, right, open (Acute) Previous back surgery (Chronic) Medical History Bacteremia Hyponatremia Closed fracture of right iliac wing Closed fracture of left inferior pubic ramus Closed fracture of superior ramus of left pubis Closed fracture of right superior pubic ramus Closed fracture of right inferior pubic ramus Sacral fracture, closed Hypertension History of aortic dissection Tobacco use disorder Alcohol use disorder Left thalamic infarction "July 2017" Diabetes mellitus, type II COPD (chronic obstructive pulmonary disease) Statin intolerance ASCVD (arteriosclerotic cardiovascular disease) Classic migraine H/O: CVA (cerebrovascular accident) "2005; residual R sided weakness" Dyslipidemia GERD (gastroesophageal reflux disease) Depression Family History Son Spherocytosis Other Heart disease Social History Smoking Status: Current every day smoker Tobacco Type: Cigarettes Cigarettes Per Day: 1/2 pack per day; Second Hand Exposure: No; Do You Dip or Chew Tobacco: No; Tobacco Cessation Education Requested by Patient: No Hx Alcohol Use: Yes Alcohol type: beer Alcohol Intake Frequency: 4 or More x per/Week Alcohol Intake Frequency Comment: 5-6 beers/day Hx Substance Use: No Preferred Language: French Communication Ability: Effective Communication Ability Comment: occassional expressive aphasia from prior CVA 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 Required: No Beliefs That Will Affect Care: None marital status: Current Living Situation: Spouse Current Living Situation Comment: How many Children do You have: 3 Other Information That Helps Us Care for You: No Feels Safe at Home: Yes Safety Concerns: Feels Safe At This Time Assistive Devices: None Review of Systems Review of Systems: As per HPI, all other systems reviewed and negative Physical Exam Physical Exam: GENERAL: Slightly anxious, obese, no respiratory distress SKIN: normal color, warm HEENT: Alopecia, [place] palpebral conjunctivae, no ptosis, dry buccal mucosa NECK : Supple, no tenderness CHEST : Decreased breath sounds, no tenderness HEART : RRR, systolic murmur ABDOMEN: Some distention, nontender EXTREMITIES : No LE swelling/tenderness, no other conspicuous deformities noted NEUROLOGIC : Coherent, no facial asymmetry, no other gross focality Results & Data Results & Data Vital Signs (Past 12 Hours) Vital Signs Temp Pulse Resp BP Pulse Ox O2 Del Method 06/12/24 18:42 36.6 C 71 18 172/82 H 99 Room Air 06/12/24 18:39 71 Laboratory Results Laboratory Results WBC 8.01 K/ul (4.8-10.8) 06/12/24 18:50 RBC 4.50 M/uL (4.70-6.10) L 06/12/24 18:50 Hgb 14.5 g/dl (14.0-18.0) 06/12/24 18:50 POC Hgb 15.3 g/dl (14.0-18.0) 06/12/24 18:58 Hct 42.1 % (42.0-52.0) 06/12/24 18:50 POC Hct 45 % (42-52) 06/12/24 18:58 MCV 93.6 fL (80.0-100.0) 06/12/24 18:50 MCH 32.2 pg (25.0-34.0) 06/12/24 18:50 MCHC 34.4 g/dL (32.0-36.0) 06/12/24 18:50 RDW Std Deviation 40.4 fL (36.4-46.3) 06/12/24 18:50 RDW Coeff of Keny 11.8 % (11.5-14.5) 06/12/24 18:50 Plt Count 231 K/uL (130-400) 06/12/24 18:50 MPV 8.5 fL (9.4-12.4) L 06/12/24 18:50 Immature Gran % (Auto) 0.5 % 06/12/24 18:50 Neut % (Auto) 51.7 % 06/12/24 18:50 Lymph % (Auto) 37.6 % 06/12/24 18:50 [place] % (Auto) 6.5 % 06/12/24 18:50 Eos % (Auto) 2.2 % 06/12/24 18:50 Baso % (Auto) 1.5 % 06/12/24 18:50 Neut # (Auto) 4.14 K/uL (1.40-6.50) 06/12/24 18:50 Lymph # (Auto) 3.01 K/uL (1.20-3.40) 06/12/24 18:50 [place] # (Auto) 0.52 K/uL (0.11-0.59) 06/12/24 18:50 Eos # (Auto) 0.18 K/uL (0.00-0.50) 06/12/24 18:50 Baso # (Auto) 0.12 K/uL (0.00-0.20) 06/12/24 18:50 Immature Gran # (Auto) 0.04 K/uL (0.01-0.20) 06/12/24 18:50 PT 10.5 Seconds (9.0-12.0) 06/12/24 18:50 INR 1.0 (0.9-1.1) 06/12/24 18:50 POC Sodium 129 mmol/L (135-144) L 06/12/24 18:58 Sodium 128 mmol/L (136-145) L 06/12/24 18:50 POC Potassium 3.7 mmol/L (3.3-5.0) 06/12/24 18:58 Potassium 3.7 mmol/L (3.5-5.1) 06/12/24 18:50 POC Chloride 91 mmol/L (101-112) L 06/12/24 18:58 Chloride 91 mmol/L (98-107) L 06/12/24 18:50 Carbon Dioxide 25 mmol/L (21-32) 06/12/24 18:50 POC Total CO2 24 mmol/L (24-31) 06/12/24 18:58 Anion Gap 12 (3-11) H 06/12/24 18:50 POC Anion Gap 18.0 mmol/L (16-25) 06/12/24 18:58 POC BUN 8 mg/dl (7-18) 06/12/24 18:58 BUN 9 mg/dl (6-23) 06/12/24 18:50 Creatinine 0.96 mg/dl (0.6-1.4) 06/12/24 18:50 POC Creatinine 1.1 mg/dl (0.6-1.3) 06/12/24 18:58 Est Cr Clr Drug Dosing 89.3 ml/min 06/12/24 18:50 eGFR 85.56 06/12/24 18:50 BUN/Creatinine Ratio 9.4 (10-20) L 06/12/24 18:50 Glucose 116 mg/dl (70-99(Fasting)) H 06/12/24 18:50 POC Glucose (other) 116 mg/dl (70-99) H 06/12/24 18:58 Calcium 9.7 mg/dl (8.6-10.3) 06/12/24 18:50 POC Ioniz Calcium Mony 1.13 mmol/l (1.12-1.32) 06/12/24 18:58 Magnesium 2.0 mg/dl (1.7-2.4) 06/12/24 18:50 Total Bilirubin 0.4 mg/dl (0.2-1.0) 06/12/24 18:50 AST 54 U/L (13-39) H 06/12/24 18:50 ALT 51 U/L (7-52) 06/12/24 18:50 Alkaline Phosphatase 71 U/L (34-104) 06/12/24 18:50 Total Creatine Kinase 40 U/L (30-223) 06/12/24 18:50 Troponin I High Sens 8.3 pg/ml (0-20) 06/12/24 18:50 Total Protein 8.1 gm/dl (6.0-8.3) 06/12/24 18:50 Albumin 4.7 gm/dl (3.4-5.0) 06/12/24 18:50 Globulin 3.4 gm/dl (2.5-4.0) 06/12/24 18:50 Albumin/Globulin Ratio 1.4 (0.9-2) 06/12/24 18:50 Lipase 56 U/L (11-82) 06/12/24 18:50 Procalcitonin 0.11 ng/ml (0-0.5) 06/12/24 18:50 TSH 2.420 uIu/ml (0.300-4.500) 06/12/24 18:50 Urine Color Yellow 06/12/24 19:00 Urine Appearance Clear (Clear) 06/12/24 19:00 Urine pH 5.5 (4.5-7.5) 06/12/24 19:00 Ur Specific [place] 1.007 (1.000-1.030) 06/12/24 19:00 Urine Protein Negative (Negative) 06/12/24 19:00 Urine Glucose (UA) Negative (Negative) 06/12/24 19:00 Urine Ketones Negative (Negative) 06/12/24 19:00 Urine Blood Negative (Negative) 06/12/24 19:00 Urine Nitrite Negative (Negative) 06/12/24 19:00 Urine Bilirubin Negative (Negative) 06/12/24 19:00 Urine Urobilinogen Negative (Negative) 06/12/24 19:00 Ur Leukocyte Esterase Negative (Negative) 06/12/24 19:00 Ethyl Alcohol mg/dL 129.4 mg/dl (<10.0) H 06/12/24 18:50 Impressions Chest X-Ray 06/12/24 18:46 XR chest 1V portable CLINICAL HISTORY: weakness TECHNIQUE: Single frontal radiograph of the chest was obtained. Comparison: Comparison is made to chest radiograph 03/14/2024 FINDINGS: No lines and tubes are seen. The cardiomediastinal silhouette is normal. Peribronchial thickening is seen. No evidence of pleural effusion or pneumothorax. IMPRESSION: Peribronchial thickening is seen compatible with infectious/inflammatory airways disease or viral pneumonia. No kurt consolidation is seen. ACT 112: Negative or not required by law. Electronically signed by: Jimmy Qureshi M.D. 06/12/2024 7:[address] 06/12/24 18:47 CT head/brain wo con CLINICAL HISTORY: SANCHEZ, weak Technique: Contiguous axial CT images of the head were acquired from the base of the skull to the vertex without intravenous contrast administration. Images were viewed in brain, subdural and bone windows. Automated dose lowering techniques and/or adjustment according to patient size were utilized for this exam. Comparison: None available at the time of this dictation. Findings: Left frontal encephalomalacia is again seen. No acute intracranial findings. Stable colloid cyst. Imaged portions of the paranasal sinuses and mastoid air cells are clear. The orbits appear normal. There are no acute fractures of the calvaria or scalp swelling. Impression: No acute intracranial hemorrhage, no evidence of acute territorial infarction or other acute intracranial disease process. ACT 112: Negative or not required by law. Electronically signed by: Jimmy Qureshi M.D. 06/12/2024 7:35 PM Abdomen/Pelvis CT 06/12/24 18:49 CT abd pelvis IV con only CLINICAL HISTORY: nausea, weak, abd pain TECHNIQUE: Helical axial images of the abdomen and pelvis were obtained and displayed. Automated dose lowering techniques and/or adjustment according to patient size were utilized for this exam. This exam was performed with intravenous contrast. CT DOSE: 2033.89 mGy.cm COMPARISON: Comparison is made to CT abdomen pelvis 06/15/2021 FINDINGS: Lower chest: No acute abnormality. Liver: Hepatic steatosis is noted. Gallbladder and biliary tree: No calcified gallstones. Normal caliber wall. No intra- or extrahepatic biliary ductal dilation. Pancreas: Unremarkable, no focal lesions. Spleen: Unremarkable. Adrenals: Unremarkable. Kidneys and ureters: Subcentimeter hypodensities are too small to characterize. Bladder: Diffuse homogeneous wall thickening is seen. Reproductive organs: Evaluation is limited by streak artifacts. Bowel: The appendix is normal. Lymph nodes Retroperitoneal: Unremarkable. Pelvic: Unremarkable. Mesenteric: Unremarkable. Peritoneum: Normal. Vessels: Atherosclerotic calcifications are seen. Abdominal wall: Unremarkable. Bones: Bilateral hip arthroplasties and compression deformity of L2 with a cemented arthroplasty. Degenerative changes are seen. Old healed fractures of the right pelvis. IMPRESSION: 1. No acute abnormality to explain nausea. 2. Hepatic steatosis. 3. Bladder wall thickening. This may represent chronic outlet obstruction however correlation for cystitis is recommended. ACT 112: Negative or not required by law. Electronically signed by: Jimmy Qureshi M.D. 06/12/2024 7:38 PM Diagnostic Findings EKG as per my interpretation :Rate 65, NSR, normal axis, inferior infarct, no ischemia
[2024-06-12 20:33] LABS: Adenovirus PCR Not Detected (NotDetected); Bordetella parapertussis PCR Not Detected (NotDetected); Bordetella pertussis PCR Not Detected (NotDetected); Chlamydia pneumoniae PCR Not Detected (NotDetected); Coronavirus 229E PCR Not Detected (NotDetected); Coronavirus CoV-2 (COVID19)PCR Not Detected (NotDetected); Coronavirus HKU1 PCR Not Detected (NotDetected); Coronavirus NL63 PCR Not Detected (NotDetected); Coronavirus OC43PCR Not Detected (NotDetected); Human Metapneumovirus PCR Not Detected (NotDetected); Influenza A PCR Not Detected (NotDetected); Influenza B PCR Not Detected (NotDetected); Mycoplasma pneumoniae PCR Not Detected (NotDetected); Parainfluenza Virus 1 PCR Not Detected (NotDetected); Parainfluenza Virus 2 PCR Not Detected (NotDetected); Parainfluenza Virus 3 PCR Not Detected (NotDetected); Parainfluenza Virus 4 PCR Not Detected (NotDetected); Respiratory Syncytial VirusPCR Not Detected (NotDetected); Rhinovirus/Enterovirus PCR Not Detected (NotDetected)
[2024-06-12] MEDS: THIAMINE HCL 100 MG in SYRINGE 9 ML IV STA (21:03)
[2024-06-12] MEDS: METOPROLOL TARTRATE 1 MG/ML VIAL IV STA (21:22)
[2024-06-12] MEDS ORDERED: PROMETHAZINE 12.5 MG/50.5 ML BAG IV PRN (21:30)
[2024-06-12] MEDS ORDERED: LORazepam 2 MG/1 ML VIAL IV PRN (21:30)
[2024-06-12] MEDS ORDERED: DEXTROSE 50% 50 ML SYRINGE IV PRN (22:21)
[2024-06-12] MEDS ORDERED: CARBOHYDRATES FOR HYPOGLYCEMIA PO PRN (22:21)
[2024-06-12] MEDS ORDERED: GLUCOSE 10 TAB/TUBE PO PRN (22:21)
[2024-06-12] MEDS ORDERED: GLUCAGON FOR INJ 1 MG VIAL SQ PRN (22:21)
[2024-06-12] MEDS ORDERED: GLUCOSE 40% GEL 15 GM TUBE PO PRN (22:21)
[2024-06-12] MEDS: INSULIN ASPART PER UNIT CHARGE SC STA (22:34)
[2024-06-12] MEDS ORDERED: NITROGLYCERIN SL 0.4 MG/TAB TAB SL PRN (23:34)
[2024-06-13] MEDS ORDERED: ACETAMINOPHEN 500 MG TAB PO PRN
[2024-06-13] MEDS ORDERED: oxyCODONE HCL IR 5 MG TAB (IMMEDIATE RELEASE) PO PRN (00:15)
[2024-06-13] MEDS: DULoxetine HCL 30 MG CAP PO SCH (00:34)
[2024-06-13] MEDS: levETIRAcetam 500 MG TAB PO SCH ×2 (00:34→07:47)
[2024-06-13] MEDS: METOPROLOL SUCC 25MG EXT REL TAB PO SCH ×2 (00:34→00:42)
[2024-06-13 06:30] LABS: Basophils # (auto) 0.11 K/uL (0.00-0.20); Basophils % (auto) 1.4 %; Eosinophils # (auto) 0.18 K/uL (0.00-0.50); Eosinophils % (auto) 2.3 %; Hematocrit (blood only) 40.6 % (42.0-52.0); Hemoglobin 13.6 g/dl (14.0-18.0); Immature Granulocytes # (auto) 0.03 K/uL (0.01-0.20); Immature Granulocytes % (auto) 0.4 %; Lymphocytes # (auto) 1.79 K/uL (1.20-3.40); Lymphocytes % (auto) 23.2 %; Mean Corpuscular Hemoglobin 31.9 pg (25.0-34.0); Mean Corpuscular Hgb Conc 33.5 g/dL (32.0-36.0); Mean Corpuscular Volume 95.1 fL (80.0-100.0); Mean Platelet Volume 8.5 fL (9.4-12.4); Monocytes # (auto) 0.62 K/uL (0.11-0.59); Neutrophils # (auto) 4.98 K/uL (1.40-6.50); Neutrophils % (auto) 64.7 %; Platelet Count 206 K/uL (130-400); RDW Coefficient of Variation 11.9 % (11.5-14.5); RDW Standard Deviation 41.5 fL (36.4-46.3); Red Blood Count 4.27 M/uL (4.70-6.10); White Blood Count 7.71 K/ul (4.8-10.8)
[2024-06-13 07:07] LABS: Albumin Globulin Ratio 1.4 (0.9-2); Albumin Level 4.1 gm/dl (3.4-5.0); BUN Creatinine Ratio 9.9 (10-20); Bilirubin,Total 0.5 mg/dl (0.2-1.0); Calcium 9.4 mg/dl (8.6-10.3); Creatinine Clr Calc Pharmacy 93.3 ml/min; Globulin 2.9 gm/dl (2.5-4.0); Potassium 4.9 mmol/L (3.5-5.1)
[2024-06-13] MEDS: FINASTERIDE 5 MG TAB PO SCH (07:45)
[2024-06-13] MEDS: CLOPIDOGREL BISULFATE 75 MG TAB PO SCH (07:46)
[2024-06-13] MEDS: PANTOprazole 40 MG TAB PO SCH (07:46)
[2024-06-13] MEDS: OXYBUTYNIN CHLORIDE XL 5 MG TABCR PO SCH (07:46)
[2024-06-13] MEDS: ASPIRIN 81 MG ECTAB PO SCH (07:48)
[2024-06-13] MEDS: ISOSORBIDE MONO EXTENDED REL 30 MG TABCR PO SCH (07:48)
[2024-06-13] MEDS: amLODIPine BESYLATE 5 MG TAB PO SCH ×2 (07:49→20:31)
[2024-06-13] MEDS: ENOXAPARIN INJ 40 MG/0.4 ML SYR SQ SCH (07:50)
[2024-06-13] MEDS: THIAMINE HCL 100 MG TAB PO SCH (07:50)
[2024-06-13] MEDS: MULTIVITAMIN TAB PO SCH (07:51)
[2024-06-13] MEDS: FOLIC ACID 1 MG TAB PO SCH (07:51)
--- NOTE | 2024-06-13 13:50 | Hospitalist Progress Note ---
Date of Service June 13, 2024 Assessment & Plan (1) Hyponatremia: Plan: Acute on chronic hyponatremia Likely due to alcohol use Sodium 128>132>134 Received gentle IV fluids Monitor sodium levels closely Uncontrolled hypertension Headache History of orthostasis --CT head:No acute intracranial hemorrhage, no evidence of acute territorial infarction or other acute intracranial disease process. 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 No kurt consolidation is seen. Saturating well on room air May need PFTs as outpatient Needs follow-up with pulmonology on discharge Albuterol as needed Generalized Pain Ambulatory dysfunction PT OT, fall precautions CAD S/P stent PVD s/p surgery Hyperlipidemia/statin intolerance H/O CVA Continue aspirin, Plavix, metoprolol, Imdur BPH Continue finasteride Seizure disorder Continue Keppra Seizure precautions DM II Last HbA1c 6.1 Continue insulin while hospitalized Monitor BGs DVT Px: Lovenox SQ CODE STATUS Full code Admission and Anticipated Discharge Date Admission Date: June 12, 2024 Subjective Patient is seen and examined at bedside States having generalized weakness and feels tired Also reports chronic dyspnea Offers no other complaints Denies any chest pain, nausea, vomiting, abdominal pain Updated patient's over the phone Review of Systems Review of Systems: All systems reviewed & are unremarkable except as noted in Subjective Physical Exam Physical Exam: Physical Exam: Vitals signs as noted above General Appearance:Obese, no apparent distress Head: normocephalic, Atraumatic Eyes: normal inspection, EOMI Neck: supple, Trachea midline Respiratory/Chest: Decreased breath sounds, CTA, No accessory muscle use Cardiovascular: S1, S2, No murmur Abdomen/GI:Soft, Non tender, Bowel sounds present Extremities/Musculoskeletal:normal inspection, no edema Neurologic/Psych:AAOX3, grossly no focal neurological deficits Skin: normal color, warm Results & Data Results & Data Vital Signs (Past 12 Hours) Vital Signs Temp Pulse Pulse Resp BP Pulse Ox O2 Del Method 06/13/24 11:28 37.0 C 76 18 130/67 93 Room Air 06/13/24 08:00 Room Air 06/13/24 07:49 36.8 C 70 18 176/80 H 95 Room Air 06/13/24 07:27 73 06/13/24 06:20 36.5 C 76 18 152/77 H 94 Room Air 06/13/24 02:29 36.5 C 61 18 130/78 94 Room Air Laboratory Results Short CBC 06/12/24 06/13/24 Range/Units 18:50 06:04 WBC 8.01 7.71 (4.8-10.8) K/ul Hgb 14.5 13.6 L (14.0-18.0) g/dl Hct 42.1 40.6 L (42.0-52.0) % Plt Count 231 206 (130-400) K/uL BMP 06/12/24 06/13/24 06/13/24 18:50 00:08 06:04 Sodium 128 L 132 L 134 L Potassium 3.7 4.9 D Chloride 91 L 99 Carbon Dioxide 25 29 BUN 9 9 Creatinine 0.96 0.91 Glucose 116 H 120 H Calcium 9.7 9.4 Cardiac Enzymes 06/12/24 Range/Units 18:50 Total Creatine Kinase 40 (30-223) U/L Liver Function 06/12/24 06/13/24 Range/Units 18:50 06:04 Total Bilirubin 0.4 0.5 (0.2-1.0) mg/dl AST 54 H 73 H (13-39) U/L ALT 51 53 H (7-52) U/L Alkaline Phosphatase 71 62 (34-104) U/L Albumin 4.7 4.1 (3.4-5.0) gm/dl Urine 06/12/24 Range/Units 19:00 Urine Color Yellow Urine Appearance Clear (Clear) Urine pH 5.5 (4.5-7.5) Ur Specific [place] 1.007 (1.000-1.030) Urine Protein Negative (Negative) Urine Glucose (UA) Negative (Negative)
[2024-06-14 06:26] LABS: Hematocrit (blood only) 41.1 % (42.0-52.0); Hemoglobin 13.7 g/dl (14.0-18.0); Mean Corpuscular Hemoglobin 31.6 pg (25.0-34.0); Mean Corpuscular Hgb Conc 33.3 g/dL (32.0-36.0); Mean Corpuscular Volume 94.9 fL (80.0-100.0); Mean Platelet Volume 8.6 fL (9.4-12.4); Platelet Count 203 K/uL (130-400); RDW Coefficient of Variation 11.9 % (11.5-14.5); RDW Standard Deviation 41.4 fL (36.4-46.3); Red Blood Count 4.33 M/uL (4.70-6.10); White Blood Count 7.07 K/ul (4.8-10.8)
[2024-06-14 06:41] LABS: Albumin Globulin Ratio 1.5 (0.9-2); Albumin Level 4.2 gm/dl (3.4-5.0); BUN Creatinine Ratio 15.9 (10-20); Bilirubin,Total 0.5 mg/dl (0.2-1.0); Calcium 9.5 mg/dl (8.6-10.3); Creatinine Clr Calc Pharmacy 79.2 ml/min; Globulin 2.8 gm/dl (2.5-4.0); Magnesium 2.1 mg/dl (1.7-2.4); Potassium 4.7 mmol/L (3.5-5.1)
[2024-06-14] MEDS: amLODIPine BESYLATE 5 MG TAB PO SCH (07:35)
[2024-06-14 11:36] VITALS: BP 106/68; TEMP 97.2
--- NOTE | 2024-06-14 12:36 | Hospitalist Progress Note ---
Date of Service June 14, 2024 Assessment & Plan (1) Hyponatremia: Plan: Acute on chronic hyponatremia Likely due to alcohol use Sodium 128>132>133 Received gentle IV fluids Monitor sodium levels closely Stable Plan to be discharged home today Uncontrolled hypertension Headache History of orthostasis --CT head:No acute intracranial hemorrhage, no evidence of acute territorial infarction or other acute intracranial disease process. Continue amlodipine, metoprolol Labile blood pressure Blood pressure stable today Alcohol use disorder Monitor for withdrawal Continue thiamine, folic acid Desilverizer to quit drinking Currently no signs of withdrawal Tobacco use disorder Currently not interested to quit smoking Refuses nicotine patch COPD Ongoing tobacco use --BioFire negative --CXR:Peribronchial thickening is seen compatible with infectious/inflammatory airways disease or viral pneumonia. No kurt consolidation is seen. Saturating well on room air May need PFTs as outpatient Needs follow-up with pulmonology on discharge Albuterol as needed Generalized Pain Ambulatory dysfunction PT OT, fall precautions CAD S/P stent PVD s/p surgery Hyperlipidemia/statin intolerance H/O CVA Continue aspirin, Plavix, metoprolol, Imdur BPH Continue finasteride Seizure disorder Continue Keppra Seizure precautions DM II Last HbA1c 6.1 Continue insulin while hospitalized Monitor BGs DVT Px: Lovenox SQ CODE STATUS Full code Disposition Home Admission and Anticipated Discharge Date Admission Date: June 12, 2024 Subjective Patient is seen and examined at bedside Stat feeling well today Headache resolved Blood pressure better controlled Denies any chest pain, dyspnea, nausea, vomiting, abdominal pain Updated patient's over the phone today Did well with therapy today Plan to be discharged home today Review of Systems Review of Systems: All systems reviewed & are unremarkable except as noted in Subjective Physical Exam Physical Exam: Physical Exam: Vitals signs as noted above General Appearance:Obese, no apparent distress Head: normocephalic, Atraumatic Eyes: normal inspection, EOMI Neck: supple, Trachea midline Respiratory/Chest: Decreased breath sounds, CTA, No accessory muscle use Cardiovascular: S1, S2, No murmur Abdomen/GI:Soft, Non tender, Bowel sounds present Extremities/Musculoskeletal:normal inspection, no edema Neurologic/Psych:AAOX3, grossly no focal neurological deficits Skin: normal color, warm Results & Data Results & Data Vital Signs (Past 12 Hours) Vital Signs Temp Pulse Pulse Resp BP Pulse Ox O2 Del Method 06/14/24 11:35 36.2 C L 57 L 20 106/68 95 Room Air 06/14/24 09:00 88 06/14/24 08:10 37.1 C 68 20 170/90 H 96 Room Air 06/14/24 04:11 36.5 C 66 20 147/77 H 95 Room Air Laboratory Results Short CBC 06/14/24 Range/Units 05:56 WBC 7.07 (4.8-10.8) K/ul Hgb 13.7 L (14.0-18.0) g/dl Hct 41.1 L (42.0-52.0) % Plt Count 203 (130-400) K/uL BMP 06/14/24 05:56 Sodium 133 L Potassium 4.7 Chloride 98 Carbon Dioxide 28 BUN 17 Creatinine 1.07 Glucose 143 H Calcium 9.5 Liver Function 06/14/24 Range/Units 05:56 Total Bilirubin 0.5 (0.2-1.0) mg/dl AST 55 H (13-39) U/L ALT 46 (7-52) U/L Alkaline Phosphatase 59 (34-104) U/L Albumin 4.2 (3.4-5.0) gm/dl
--- NOTE | 2024-06-14 12:58 | Discharge Summary ---
Date of Service June 14, 2024 Admission HPI Per Admitting Provider Medical history significant for CAD status post stent/PVD status post surgery, mild AR, HTN, hyperlipidemia/statin intolerance, hx CVA, seizure disorder, COPD as per records, DM2 on oral medications, chronic hyponatremia, GERD, migraine, BPH, ongoing tobacco/alcohol abuse. Last confinement February 2024 for chest pain attributed to uncontrolled hypertension. Patient had generalized aches later followed by achy right-sided headache somewhat different from migraine attack. Chronic photophobia. Denies chest pain, unusual SOB. Compliant with home medications. Denies unusual stress at home. SBP 170s upon arrival at the ER. 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 Principal Diagnosis Acute on chronic hyponatremia Alcohol use disorder Hypertension Tobacco use disorder Discharge Exam GENERAL: Slightly anxious, obese, no respiratory distress SKIN: normal color, warm HEENT: Alopecia, [place] palpebral conjunctivae, no ptosis, dry buccal mucosa NECK : Supple, no tenderness CHEST : Decreased breath sounds, no tenderness HEART : RRR, systolic murmur ABDOMEN: Some distention, nontender EXTREMITIES : No LE swelling/tenderness, no other conspicuous deformities noted NEUROLOGIC : Coherent, no facial asymmetry, no other gross focality Discharge Data Allergies Allergy/AdvReac Type Severity Reaction Status Date / Time ciprofloxacin Allergy Severe hives Verified 06/12/24 20:26 simvastatin AdvReac Intermediate MUSCLE Verified 06/12/24 20:26 PAIN/WEAKNESS Ttdgwoq-TUJ-KbA Reductase AdvReac Intermediate MUSCLE Verified 06/12/24 20:26 Inhibitor PAIN/WEAKNESS [Aqguuea-Cyg-Gyp Reductase Inhibitor] Consultations 06/12/24 20:07 ED Decision to Admit Stat Procedures Performed Laboratory Results WBC 7.07 K/ul (4.8-10.8) 06/14/24 05:56 RBC 4.33 M/uL (4.70-6.10) L 06/14/24 05:56 Hgb 13.7 g/dl (14.0-18.0) L 06/14/24 05:56 POC Hgb 15.3 g/dl (14.0-18.0) 06/12/24 18:58 Hct 41.1 % (42.0-52.0) L 06/14/24 05:56 POC Hct 45 % (42-52) 06/12/24 18:58 MCV 94.9 fL (80.0-100.0) 06/14/24 05:56 MCH 31.6 pg (25.0-34.0) 06/14/24 05:56 MCHC 33.3 g/dL (32.0-36.0) 06/14/24 05:56 RDW Std Deviation 41.4 fL (36.4-46.3) 06/14/24 05:56 RDW Coeff of Keny 11.9 % (11.5-14.5) 06/14/24 05:56 Plt Count 203 K/uL (130-400) 06/14/24 05:56 MPV 8.6 fL (9.4-12.4) L 06/14/24 05:56 Immature Gran % (Auto) 0.4 % 06/13/24 06:04 Neut % (Auto) 64.7 % 06/13/24 06:04 Lymph % (Auto) 23.2 % 06/13/24 06:04 [place] % (Auto) 8.0 % 06/13/24 06:04 Eos % (Auto) 2.3 % 06/13/24 06:04 Baso % (Auto) 1.4 % 06/13/24 06:04 Neut # (Auto) 4.98 K/uL (1.40-6.50) 06/13/24 06:04 Lymph # (Auto) 1.79 K/uL (1.20-3.40) 06/13/24 06:04 [place] # (Auto) 0.62 K/uL (0.11-0.59) H 06/13/24 06:04 Eos # (Auto) 0.18 K/uL (0.00-0.50) 06/13/24 06:04 Baso # (Auto) 0.11 K/uL (0.00-0.20) 06/13/24 06:04 Immature Gran # (Auto) 0.03 K/uL (0.01-0.20) 06/13/24 06:04 PT 10.5 Seconds (9.0-12.0) 06/12/24 18:50 INR 1.0 (0.9-1.1) 06/12/24 18:50 POC Sodium 129 mmol/L (135-144) L 06/12/24 18:58 Sodium 133 mmol/L (136-145) L 06/14/24 05:56 POC Potassium 3.7 mmol/L (3.3-5.0) 06/12/24 18:58 Potassium 4.7 mmol/L (3.5-5.1) 06/14/24 05:56 POC Chloride 91 mmol/L (101-112) L 06/12/24 18:58 Chloride 98 mmol/L (98-107) 06/14/24 05:56 Carbon Dioxide 28 mmol/L (21-32) 06/14/24 05:56 POC Total CO2 24 mmol/L (24-31) 06/12/24 18:58 Anion Gap 7 (3-11) 06/14/24 05:56 POC Anion Gap 18.0 mmol/L (16-25) 06/12/24 18:58 POC BUN 8 mg/dl (7-18) 06/12/24 18:58 BUN 17 mg/dl (6-23) 06/14/24 05:56 Creatinine 1.07 mg/dl (0.6-1.4) 06/14/24 05:56 POC Creatinine 1.1 mg/dl (0.6-1.3) 06/12/24 18:58 Est Cr Clr Drug Dosing 79.2 ml/min 06/14/24 05:56 eGFR 75.12 06/14/24 05:56 BUN/Creatinine Ratio 15.9 (10-20) 06/14/24 05:56 Glucose 143 mg/dl (70-99(Fasting)) H 06/14/24 05:56 POC Glucose 146 mg/dl (70-99) H 06/14/24 11:48 POC Glucose (other) 116 mg/dl (70-99) H 06/12/24 18:58 Osmolality 297 mOsm/kg (280-300) 06/12/24 18:50 Calcium 9.5 mg/dl (8.6-10.3) 06/14/24 05:56 POC Ioniz Calcium Mony 1.13 mmol/l (1.12-1.32) 06/12/24 18:58 Magnesium 2.1 mg/dl (1.7-2.4) 06/14/24 05:56 Total Bilirubin 0.5 mg/dl (0.2-1.0) 06/14/24 05:56 AST 55 U/L (13-39) H 06/14/24 05:56 ALT 46 U/L (7-52) 06/14/24 05:56 Alkaline Phosphatase 59 U/L (34-104) 06/14/24 05:56 Total Creatine Kinase 40 U/L (30-223) 06/12/24 18:50 Troponin I High Sens 8.3 pg/ml (0-20) 06/12/24 18:50 Total Protein 7.0 gm/dl (6.0-8.3) 06/14/24 05:56 Albumin 4.2 gm/dl (3.4-5.0) 06/14/24 05:56 Globulin 2.8 gm/dl (2.5-4.0) 06/14/24 05:56 Albumin/Globulin Ratio 1.5 (0.9-2) 06/14/24 05:56 Lipase 56 U/L (11-82) 06/12/24 18:50 Procalcitonin 0.11 ng/ml (0-0.5) 06/12/24 18:50 TSH 2.420 uIu/ml (0.300-4.500) 06/12/24 18:50 Urine Color Yellow 06/12/24 19:00 Urine Appearance Clear (Clear) 06/12/24 19:00 Urine pH 5.5 (4.5-7.5) 06/12/24 19:00 Ur Specific [place] 1.007 (1.000-1.030) 06/12/24 19:00 Urine Protein Negative (Negative) 06/12/24 19:00 Urine Glucose (UA) Negative (Negative) 06/12/24 19:00 Urine Ketones Negative (Negative) 06/12/24 19:00 Urine Blood Negative (Negative) 06/12/24 19:00 Urine Nitrite Negative (Negative) 06/12/24 19:00 Urine Bilirubin Negative (Negative) 06/12/24 19:00 Urine Urobilinogen Negative (Negative) 06/12/24 19:00 Ur Leukocyte Esterase Negative (Negative) 06/12/24 19:00 Urine Osmolality 176 mOsm/kg (500-800) L 06/12/24 19:00 Ur Random Sodium 20 mmol/L 06/12/24 19:00 Ethyl Alcohol mg/dL 129.4 mg/dl (<10.0) H 06/12/24 18:50 Adenovirus (PCR) Not Detected (NotDetected) 06/12/24 19:38 B. pertussis DNA (PCR) Not Detected (NotDetected) 06/12/24 19:38 B.parapertussis DNA PCR Not Detected (NotDetected) 06/12/24 19:38 C. pneumoniae DNA (PCR) Not Detected (NotDetected) 06/12/24 19:38 Coronavirus OC43 (PCR) Not Detected (NotDetected) 06/12/24 19:38 Coronavirus HKU1 (PCR) Not Detected (NotDetected) 06/12/24 19:38 Coronavirus 229E (PCR) Not Detected (NotDetected) 06/12/24 19:38 SARS-CoV-2 (PCR) Not Detected (NotDetected) 06/12/24 19:38 Coronavirus NL63 (PCR) Not Detected (NotDetected) 06/12/24 19:38 Human Metapneumovir PCR Not Detected (NotDetected) 06/12/24 19:38 Influenza Type A (PCR) Not Detected (NotDetected) 06/12/24 19:38 Influenza Type B (PCR) Not Detected (NotDetected) 06/12/24 19:38 M. pneumoniae (PCR) Not Detected (NotDetected) 06/12/24 19:38 Parainfluenza 1 (PCR) Not Detected (NotDetected) 06/12/24 19:38 Parainfluenza 2 (PCR) Not Detected (NotDetected) 06/12/24 19:38 Parainfluenza 3 (PCR) Not Detected (NotDetected) 06/12/24 19:38 Parainfluenza 4 (PCR) Not Detected (NotDetected) 06/12/24 19:38 RSV (PCR) Not Detected (NotDetected) 06/12/24 19:38 Entero/Rhino (PCR) Not Detected (NotDetected) 06/12/24 19:38 Impressions Chest X-Ray 06/12/24 18:46 XR chest 1V portable CLINICAL HISTORY: weakness TECHNIQUE: Single frontal radiograph of the chest was obtained. Comparison: Comparison is made to chest radiograph 03/14/2024 FINDINGS: No lines and tubes are seen. The cardiomediastinal silhouette is normal. Peribronchial thickening is seen. No evidence of pleural effusion or pneumothorax. IMPRESSION: Peribronchial thickening is seen compatible with infectious/inflammatory airways disease or viral pneumonia. No kurt consolidation is seen. ACT 112: Negative or not required by law. Electronically signed by: Jimmy Qureshi M.D. 06/12/2024 7:[address] 06/12/24 18:47 CT head/brain wo con CLINICAL HISTORY: SANCHEZ, weak Technique: Contiguous axial CT images of the head were acquired from the base of the skull to the vertex without intravenous contrast administration. Images were viewed in brain, subdural and bone windows. Automated dose lowering techniques and/or adjustment according to patient size were utilized for this exam. Comparison: None available at the time of this dictation. Findings: Left frontal encephalomalacia is again seen. No acute intracranial findings. Stable colloid cyst. Imaged portions of the paranasal sinuses and mastoid air cells are clear. The orbits appear normal. There are no acute fractures of the calvaria or scalp swelling. Impression: No acute intracranial hemorrhage, no evidence of acute territorial infarction or other acute intracranial disease process. ACT 112: Negative or not required by law. Electronically signed by: Jimmy Qureshi M.D. 06/12/2024 7:35 PM Abdomen/Pelvis CT 06/12/24 18:49 CT abd pelvis IV con only CLINICAL HISTORY: nausea, weak, abd pain TECHNIQUE: Helical axial images of the abdomen and pelvis were obtained and displayed. Automated dose lowering techniques and/or adjustment according to patient size were utilized for this exam. This exam was performed with intravenous contrast. CT DOSE: 2033.89 mGy.cm COMPARISON: Comparison is made to CT abdomen pelvis 06/15/2021 FINDINGS: Lower chest: No acute abnormality. Liver: Hepatic steatosis is noted. Gallbladder and biliary tree: No calcified gallstones. Normal caliber wall. No intra- or extrahepatic biliary ductal dilation. Pancreas: Unremarkable, no focal lesions. Spleen: Unremarkable. Adrenals: Unremarkable. Kidneys and ureters: Subcentimeter hypodensities are too small to characterize. Bladder: Diffuse homogeneous wall thickening is seen. Reproductive organs: Evaluation is limited by streak artifacts. Bowel: The appendix is normal. Lymph nodes Retroperitoneal: Unremarkable. Pelvic: Unremarkable. Mesenteric: Unremarkable. Peritoneum: Normal. Vessels: Atherosclerotic calcifications are seen. Abdominal wall: Unremarkable. Bones: Bilateral hip arthroplasties and compression deformity of L2 with a cemented arthroplasty. Degenerative changes are seen. Old healed fractures of the right pelvis. IMPRESSION: 1. No acute abnormality to explain nausea. 2. Hepatic steatosis. 3. Bladder wall thickening. This may represent chronic outlet obstruction however correlation for cystitis is recommended. ACT 112: Negative or not required by law. Electronically signed by: Jimmy Qureshi M.D. 06/12/2024 7:38 PM Ordered Studies 06/12/24 18:47 CT head/brain wo con Stat 06/12/24 18:49 CT abd pelvis IV con only Stat Hospital Course (1) Hyponatremia: Acute on chronic hyponatremia Likely due to alcohol use Sodium 128>132>133 Received gentle IV fluids Monitor sodium levels closely Stable Plan to be discharged home today Uncontrolled hypertension Headache History of orthostasis --CT head:No acute intracranial hemorrhage, no evidence of acute territorial infarction or other acute intracranial disease process. 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 No kurt consolidation is seen. Saturating well on room air May need PFTs as outpatient Needs follow-up with pulmonology on discharge Albuterol as needed Generalized Pain Ambulatory dysfunction PT OT, fall precautions CAD S/P stent PVD s/p surgery Hyperlipidemia/statin intolerance H/O CVA Continue aspirin, Plavix, metoprolol, Imdur BPH Continue finasteride Seizure disorder Continue Keppra Seizure precautions DM II Last HbA1c 6.1 Continue insulin while hospitalized Monitor BGs DVT Px: Lovenox SQ CODE STATUS Full code Disposition Home Total Time Total Time Spent Total Time Spent (In Minutes): 46 minutes Discharge Plan Discharge Items Patient Disposition: Home - Self-Care Reason For Visit: HYPONATREMIA Discharge Diagnosis: Acute on chronic hyponatremia Alcohol use disorder Hypertension Tobacco use disorder Activity: Per Instructions section Exercise/Sports: Gradually increase as tolerated Non-emergency contact: Primary Care Provider and Shoe Salesperson Call non-emergency contact if: you have any medication questions, your symptoms worsen, your pain is concerning for you and you have a fever Follow-up/Referrals: Terry Resendez MD [Primary Care Provider] - Diet: Carb Consistent or DM2 and Heart Healthy Addtl Attending Provider Instructions: Follow-up with your primary care physician in 1 week Follow-up with your correctional case records supervisor for outpatient pulmonary function tests. --Quit smoking tobacco and drinking alcohol as advised -- Monitor blood pressure regularly at home and discuss with the physician for further instructions and adjustment of medications as needed. Seek immediate medical attention if your symptoms reoccur or worsen Please take all medications as instructed on discharge list below. Please call if you have any questions or problems. You can reach a [facility] hospitalist on duty at [facility] 24 hours a day by calling [phone] Pending Studies at Discharge: No Stand-Alone Forms: My [facility] adflyer, Smoking Cessation Medications and DC Order Prescriptions: New folic acid 1 mg Tablet 1 mg PO QAM Qty: 30 0RF thiamine HCl (vitamin B1) 100 mg Tablet 100 mg PO QAM Qty: 30 0RF Continued clopidogrel 75 mg Tablet 75 mg PO QAM Qty: 0 nitroglycerin 0.4 mg Tablet, Sublingual 0.4 mg Sublingual DIRECTED PRN (Reason: Chest Pain) Qty: 0 Rx Instructions: PLACE ONE TABLET UNDER THE TONGUE EVERY 5 MINUTES FOR UP TO 3 DOSES OVER 15 MINUTES IF NEEDED FOR CHEST PAIN aspirin 81 mg Tablet,Delayed Release (Dr/Ec) 81 mg PO QAM omeprazole 20 mg capsule,delayed release(DR/EC) 20 mg PO QAM finasteride 5 mg tablet 5 mg PO QAM duloxetine 30 mg capsule,delayed release(DR/EC) 30 mg PO AMPM cholecalciferol (vitamin D3) [Vitamin D3] 50 mcg (2,000 unit) Capsule 50 mcg PO QAM Reyvow 50 mg tablet 50 mg PO DIRECTED PRN (Reason: Migraine Headache) metoprolol succinate 25 mg tablet extended release 24 hr 12.5 mg PO HS levetiracetam [Keppra] 500 mg tablet 500 mg PO QAM metoprolol succinate 25 mg tablet extended release 24 hr 25 mg PO QAM levetiracetam 500 mg tablet 1,000 mg PO HS amlodipine 5 mg tablet 5 mg PO UD Rx Instructions: 2.5mg QAM and 5mg QPM hydrocodone-acetaminophen 5-325 mg tablet 1 tab PO TID isosorbide mononitrate 30 mg Tablet Extended Release 24 Hr 90 mg PO QAM Rx Instructions: take 3 tablets by mouth in the morning solifenacin 5 mg tablet 5 mg PO QAM Discharge Orders: Discharge Order (Routine); Ordered 06/14/24 Ordered By: Hilton Castro Admission Data Admit Date/Time: 06/12/24 20:26 Attending Provider: Hilton Castro Admit Provider: Charles Small Primary Care Provider: Terry Resendez Other Providers: Charles Small
[2024-06-14] MEDS: ALBUTEROL HFA 8 GM INHALER INH PRN (13:37)
[2024-06-14 13:44] VITALS: PULSE 71; RESP 15; O2SAT 97
--- NOTE | 2024-06-16 05:10 | Electrocardiogram Report ---
Test Reason : Blood Pressure : */* mmHG Vent. Rate : 65 BPM Atrial Rate : 65 BPM P-R Int : 160 ms QRS Dur : 100 ms QT Int : 422 ms P-R-T Axes : 74 69 63 degrees QTcB Int : 438 ms Normal sinus rhythm Cannot rule out Anterior infarct , age undetermined Abnormal ECG When compared with ECG of 16-Mar-2024 06:28, No significant change was found Confirmed by Josias Rodriguez ([id number]) on 06/16/2024 5:10:09 AM Referred By: REFERRED SELF Confirmed By: Josias Rodriguez
== END 2024-06-14 14:32 | disposition home or self-care (01) | DRG 641 ==
LOC: ED 18:33 → 2W 20:26 → SUATTDRO 20:26 → 2W 21:08

== ENCOUNTER 2025-05-30 14:22 | Inpatient (IN) ==
--- NOTE | 2025-05-30 14:41 | Emergency Department Note ---
Impression & Plan Acute pancreatitis, Chest pain, Acute hyponatremia, Epigastric abdominal pain ED Provider Note NAME: MANUEL GONZALES AGE: 69 SEX: M : 1955 ARRIVES VIA: Ambulance INFORMANT: Patient, EMS ED PROVIDER(S): Justyn Bain DO CHIEF COMPLAINT: Abdominal pain HPI: The patient is a 69-year-old male who presented to the emergency department for an evaluation of abdominal pain. The patient has been experiencing abdominal pain that began acutely at 2 AM. He states the pain is a fullness occasionally of his chest. He denies having any back pain. He has had nausea and vomiting. He was treated with antiemetics prior to arrival. He also received aspirin and his gave him nitroglycerin. The patient now complains of a headache as well. ROS: See above HPI for pertinent positives & negatives. A total of 10 systems reviewed and were otherwise negative. PAST MEDICAL HISTORY: See Below PAST SURGICAL HISTORY: See Below FAMILY HISTORY: See Below SOCIAL HISTORY: See Below HOME MEDICATIONS: See Below ALLERGIES: See Below VITALS: See Below PHYSICAL EXAMINATION: GENERAL: The patient is awake and alert. The patient is very anxious and appears to be uncomfortable. EYES: The conjunctivae are clear. The pupils are round and reactive. EARS, NOSE, MOUTH AND THROAT: The nose is without any evidence of any deformity. NECK: The neck is nontender and supple. RESPIRATORY: Normal respiratory effort is noted there is no evidence of wheezing rhonchi or rales CARDIOVASCULAR: Regular rate and rhythm noted there no murmurs rubs or gallops normal S1 normal S2. GASTROINTESTINAL: The abdomen is distended. There is diffuse tenderness to palpation especially in the epigastric region. There is slight guarding in the epigastric region. SKIN: There is no obvious evidence of any rash. There are no petechiae, pallor or cyanosis noted. NEUROLOGIC: Patient is awake alert and oriented x3 MEDICAL DECISION MAKING: The patient is a 69-year-old male who presented to the emergency department for an evaluation of epigastric pain the patient had very significant pain on palpation. I discussed patient's laboratory and radiographic studies with him. He was treated with IV pain medication as well as IV fluids and IV antiemetics. He was also treated with H2 blockers and proton pump inhibitors once the CAT scan revealed signs of pancreatitis. The patient does have a long alcohol history. He was feeling much better on reevaluation. I discussed the patient's condition with the on-call [facility] hospitalist. They have agreed to evaluate the patient in the emergency department for further management and disposition. Triage Nursing notes reviewed. Prior medical records reviewed Vital Signs: reviewed and remarkable for elevated blood pressure. Differential diagnosis: Etiologies such as appendicitis, diverticulitis, obstruction, inflammatory bowel disease, renal colic, PUD, biliary pathology, pancreatitis, mesenteric ischemia, aortic pathology, infections, genitourinary, UTI, perforated viscus, as well as others were entertained. ER treatment provided: See below Diagnostics interpreted by me: ECG: EKG was obtained in the emergency department. My interpretation is normal sinus rhythm at 89 bpm. There is no ectopy. Poor R wave progression was noted with inferior Q waves. This was compared to a tracing from MayJune 02, 2024. No changes were noted. Cardiac Monitoring: An order was placed for continuous cardiac monitoring. The monitor shows a rate of 95 bpm with sinus rhythm. Laboratory studies: As stated above and show below. Imaging studies: See below. Radiographic imaging was reviewed by myself Consultation(s): I discussed this case with Dr. Jenkins who is on-call for the [facility]. Past Med/Surg History Problem List (Updated 05/30/25 @ 22:09 by Justyn Bain DO) Epigastric abdominal pain (Acute) Acute pancreatitis (Acute) Pancreatitis Headache (Acute) Weakness (Acute) Acute hyponatremia (Acute) Chest pain (Acute) Uncontrolled hypertension Demand ischemia Elevated troponin Vasovagal syncope Chest pain (Acute) Seizure disorder NSTEMI (non-ST elevated myocardial infarction) Syncope NSTEMI (non-ST elevated myocardial infarction) History of cardioembolic cerebrovascular accident (CVA) Previous back surgery (Chronic) Fracture of ankle, trimalleolar, right, open (Acute) Thoracic compression fracture (Acute) CAD (coronary artery disease) "S/p attempted PCI of a NURSE SANE of right coronary artery, procedure aborted due to small localized focal dissection of aortic root in Jun 2017" 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 Chen" Obesity (BMI 30-39.9) (Chronic) Medical History Hx of carotid artery stenosis (2012) "s/p EDITH stent placement 08/23/2013; Dr. Chen" Expressive aphasia due to hx cva Hx of fracture mulitple, due to falls thoracic compression, right iliac wing, right and left inferior and superior pubic ramus, left ankle, sacral Osteoarthritis Hx of non-ST elevation myocardial infarction (NSTEMI) cardiac cath x3 2009 - nstemi - [facility] -no stents 2015- [facility], no mi, no stents 2017 - attempted 3rd, had partial aortic dissection, [facility] [place], no surgery - follows with cardio dr. larson (~ 2months) Chronic pain CAD (coronary artery disease) "S/p attempted PCI of a NURSE SANE of right coronary artery, procedure aborted due to small localized focal dissection of aortic root in Jun 2017" Dyspnea on exertion Hx of falling Hx of urethral stricture (12/2023) hx green light procedure, no issues since Hx of colonic polyps History of difficult intubation per , alexy, "they told me he is hard to intubate because it is hard to get his mouth open." unable to elaborate on what doctors told her this Seizure disorder last seizure approx. 2 years ago "grand mal" - controlled on meds - follows with dr. sharma History of CVA in adulthood (2016) 2013 and 2016- has expressiva aphashia, no movement of right side, drags right foot when ambulating, right arm is contracted, follows with neuro Dr. Sharma at [facility] Bacteremia hx - after pelvic fracture - had picc line abx at home Hyponatremia Hypertension History of aortic dissection (2016) during cardiac cath 2016, [facility] Tobacco use disorder Alcohol use disorder Left thalamic infarction "July 2017" Diabetes mellitus, type II no longer takes metformin COPD (chronic obstructive pulmonary disease) sob with exertion Statin intolerance ASCVD (arteriosclerotic cardiovascular disease) Classic migraine gets weekly Dyslipidemia GERD (gastroesophageal reflux disease) Depression Surgical History Hx of right cataract extraction (08/09/24) History of bronchoscopy History of bladder surgery (12/2023) "green light procedure" - dr. michel lees, no longer has to self-cath Hx of colonoscopy with polypectomy History of open reduction and internal fixation (ORIF) procedure left ankle, due to fall, has screws and plates Hx of cardiac catheterization (2017) x3 2010 - nstemi - [facility] -no stents 2016- [facility], no mi, no stents 2017 - attempted 3rd, had partial aortic dissection, [facility], no surgery - follows with cardio dr. larson (~ 2months) History of carotid endarterectomy (2012) [facility], right carotid stent, had stroke Hx of kyphoplasty (2015) History of repair of right rotator cuff Hx of bilateral hip replacements Hx of tonsillectomy Family History Son Spherocytosis Other Heart disease Social History Smoking Status: Current every day smoker Tobacco Type: Cigarettes Cigarettes Per Day: 1/2 pack; Second Hand Exposure: No; Do You Dip or Chew Tobacco: No; Hx Alcohol Use: Yes Alcohol type: beer Alcohol Intake Frequency: 4 or More x per/Week Alcohol Intake Frequency Comment: 5-6 beers/day Hx Substance Use: No Preferred Language: Maori Communication Ability: Effective Communication Ability Comment: aphasia/previous cva Pottery Decorator Required: No Beliefs That Will Affect Care: None marital status: Current Living Situation: Spouse Current Living Situation Comment: How many Children do You have: 3 Feels Safe at Home: Yes Assistive Devices: None Allergies Allergies Allergy/AdvReac Type Severity Reaction Status Date / Time ciprofloxacin Allergy Severe hives Verified 05/30/25 17:36 simvastatin AdvReac Intermediate MUSCLE Verified 05/30/25 17:36 PAIN/WEAKNESS [id number] Reductase AdvReac Intermediate MUSCLE Verified 05/30/25 17:36 Inhibitor PAIN/WEAKNESS [Hxskayy-Gxv-Isk Reductase Inhibitor] Home Meds Home Medications Medication Instructions Recorded Confirmed clopidogrel 75 mg tablet 75 mg PO QAM ##0 06/14/15 05/30/25 nitroglycerin 0.4 mg sublingual 0.4 mg sublingual DIRECTED PRN 04/18/18 05/30/25 tablet Chest Pain ##0 aspirin 81 mg tablet,delayed 81 mg PO QAM 10/02/18 05/30/25 release cholecalciferol (vitamin D3) 50 50 mcg PO QAM 11/27/22 05/30/25 mcg (2,000 unit) capsule (Vitamin D3) finasteride 5 mg tablet 5 mg PO QPM 11/27/22 05/30/25 omeprazole 20 mg capsule,delayed 20 mg PO Q OTHER DAY 11/27/22 05/30/25 release lasmiditan 50 mg tablet (Reyvow) 50 mg PO DIRECTED PRN Migraine 07/09/23 05/30/25 Headache amlodipine 5 mg tablet 5 mg PO UD 06/12/24 05/30/25 isosorbide mononitrate 30 mg 90 mg PO QAM 06/12/24 05/30/25 tablet,extended release 24 hr levetiracetam 500 mg tablet 1,000 mg PO HS 06/12/24 05/30/25 levetiracetam 500 mg tablet 500 mg PO QAM 06/12/24 05/30/25 (Keppra) metoprolol succinate 25 mg 12.5 mg PO HS 06/12/24 05/30/25 tablet,extended release 24 hr metoprolol succinate 25 mg 25 mg PO QAM 06/12/24 05/30/25 tablet,extended release 24 hr acetaminophen 500 mg tablet 500 mg PO Q4 PRN Pain 05/30/25 05/30/25 albuterol sulfate 2.5 mg/3 mL 2.5 mg inhalation Q4H PRN as 05/30/25 05/30/25 (0.083 %) solution for nebulization directed albuterol sulfate 90 mcg/actuation 2 puff inhalation Q6 PRN wheezing 05/30/25 05/30/25 aerosol inhaler or cough duloxetine 30 mg capsule,delayed 30 mg PO AMPM 05/30/25 05/30/25 release fluticasone fur. 100 mcg-umeclid 1 inh inhalation QAM 05/30/25 05/30/25 62.5 mcg-vilant 25 mcg inhalat.powder (Trelegy Ellipta) hydrocodone 5 mg-acetaminophen 325 1 tab PO TID PRN Pain 05/30/25 05/30/25 mg tablet ondansetron HCl 4 mg tablet 4 mg PO Q6H PRN Nausea 05/30/25 05/30/25 ranolazine 500 mg tablet,extended 500 mg PO AMHS 05/30/25 05/30/25 release,12 hr Previous Rx's Medication Instructions Recorded thiamine HCl (vitamin B1) 100 mg 100 mg PO QAM #30 tabs 06/14/24 tablet Results & Data (ED) Vital Signs Vital Signs - 24 hr 05/30/25 14:36 05/30/25 14:36 05/30/25 14:42 Temperature 36.6 C Temperature Source Oral Pulse Rate 89 Respiratory Rate 25 H Blood Pressure 171/91 H Blood Pressure Mean 117 Blood Pressure Position Right Lateral Pulse Oximetry 96 96 Oxygen Delivery Method Room Air Room Air Room Air Oxygen Flow Rate 96 Sepsis Recent Fever Within 48 Hours No Sepsis New/Unexplained Change in Mental Status N/A Sepsis Action Taken by Nursing No Action Required 05/30/25 15:06 Temperature Temperature Source Pulse Rate 95 H Respiratory Rate Blood Pressure Blood Pressure Mean Blood Pressure Position Pulse Oximetry Oxygen Delivery Method Oxygen Flow Rate Sepsis Recent Fever Within 48 Hours Sepsis New/Unexplained Change in Mental Status Sepsis Action Taken by Correction Medications Current Medication List: was personally reviewed by me Laboratory Data Attestation: I reviewed the patient's lab results. 05/30/25 14:36 05/30/25 14:36 Lab Results 05/30/25 05/30/25 Range/Units 14:36 14:42 WBC 13.36 H (4.8-10.8) K/ul RBC 4.26 L (4.70-6.10) M/uL Hgb 13.8 L (14.0-18.0) g/dl POC Hgb 15.0 (14.0-18.0) g/dl Hct 39.4 L (42.0-52.0) % POC Hct 44 (42-52) % MCV 92.5 (80.0-100.0) fL MCH 32.4 (25.0-34.0) pg MCHC 35.0 (32.0-36.0) g/dL RDW Std Deviation 42.4 (36.4-46.3) fL RDW Coeff of Keny 12.6 (11.5-14.5) % Plt Count 224 (130-400) K/uL MPV 8.2 L (9.4-12.4) fL Immature Gran % (Auto) 0.4 % Neut % (Auto) 84.8 % Lymph % (Auto) 7.4 % Glascock % (Auto) 7.0 % Eos % (Auto) 0.0 % Baso % (Auto) 0.4 % Neut # (Auto) 11.32 H (1.40-6.50) K/uL Lymph # (Auto) 0.99 L (1.20-3.40) K/uL Glascock # (Auto) 0.94 H (0.11-0.59) K/uL Eos # (Auto) 0.00 (0.00-0.50) K/uL Baso # (Auto) 0.05 (0.00-0.20) K/uL Immature Gran # (Auto) 0.06 (0.01-0.20) K/uL PT 10.6 (9.0-12.0) Seconds INR 1.0 (0.9-1.1) APTT 24 (21-31) Seconds PTT Ratio 0.9 POC Sodium 127 L (135-144) mmol/L Sodium 126 L (136-145) mmol/L POC Potassium 3.9 (3.3-5.0) mmol/L Potassium 3.9 (3.5-5.1) mmol/L POC Chloride 92 L (101-112) mmol/L Chloride 91 L (98-107) mmol/L Carbon Dioxide 25 (21-32) mmol/L POC Total CO2 24 (24-31) mmol/L Anion Gap 10 (3-11) POC Anion Gap 16.0 (16-25) mmol/L POC BUN 11 (7-18) mg/dl BUN 11 (6-23) mg/dl Creatinine 0.97 (0.6-1.4) mg/dl POC Creatinine 1.0 (0.6-1.3) mg/dl Est Cr Clr Drug Dosing Not Reportable eGFR 83.98 BUN/Creatinine Ratio 11.3 (10-20) Glucose 191 H (70-99(Fasting)) mg/dl POC Glucose (other) 191 H (70-99) mg/dl Calcium 9.6 (8.6-10.3) mg/dl POC Ioniz Calcium Mony 1.11 L (1.12-1.32) mmol/l Total Bilirubin 0.7 (0.2-1.0) mg/dl AST 27 (13-39) U/L ALT 23 (7-52) U/L Alkaline Phosphatase 52 (34-104) U/L Troponin I High Sens 9.6 (0-20) pg/ml Total Protein 7.3 (6.0-8.3) gm/dl Albumin 4.5 (3.4-5.0) gm/dl Globulin 2.8 (2.5-4.0) gm/dl Albumin/Globulin Ratio 1.6 (0.9-2) Lipase 2946 H (11-82) U/L Administered Medications Amlodipine Besylate (Amlodipine Besylate 5 Mg Tab) 5 mg PO HS BRIAN Stop: 06/29/25 20:59 Last Admin: 05/30/25 21:31 Dose: 5 mg Documented By: Duloxetine HCl (Duloxetine Hcl 30 Mg Cap) 30 mg PO BID BRIAN Stop: 06/29/25 20:59 Last Admin: 05/30/25 21:31 Dose: 30 mg Documented By: Enoxaparin Sodium (Enoxaparin Inj 40 Mg/0.4 Ml Syr) 40 mg SQ Q24H BRIAN Stop: 06/29/25 19:44 Last Admin: 05/30/25 21:29 Dose: 40 mg Documented By: Lactated Ringer's (Lr) 1,000 mls @ 125 mls/hr IV .Q8H BRIAN Stop: 06/02/25 19:21 Last Admin: 05/30/25 21:28 Dose: 125 mls/hr Documented By: Pantoprazole Sodium (Protonix) 40 mg in 10 mls @ 5 mls/min IV BID BRIAN Stop: 06/29/25 20:59 Last Admin: 05/30/25 21:29 Dose: 5 mls/min Documented By: Insulin Aspart (Insulin Aspart Per Unit Charge) 0 units SC ACHS BRIAN Stop: 06/29/25 20:59 Last Admin: 05/30/25 21:30 Dose: Not Given Documented By: Levetiracetam (Levetiracetam 500 Mg Tab) 1,000 mg PO BRIAN Stop: 06/29/25 20:59 Last Admin: 05/30/25 21:31 Dose: 1,000 mg Documented By: Metoprolol Succinate (Metoprolol Succ 25mg Ext Rel Tab) 12.5 mg PO HS BRIAN Stop: 06/29/25 20:59 Last Admin: 05/30/25 21:32 Dose: 12.5 mg Documented By: NAHUM Discontinued Medications Sodium Chloride (Nss) 500 mls @ 999 mls/hr IV .Q31M STA Stop: 05/30/25 14:57 Last Infusion: 05/30/25 15:24 Dose: Infused Documented By: Admin: 05/30/25 14:48 Dose: 999 mls/hr Documented By: CAROLYN Famotidine (Pepcid 20mg Iv Push) 20 mg in 5 mls @ 2.5 mls/min IV NOW STA Stop: 05/30/25 15:57 Last Admin: 05/30/25 16:12 Dose: 2.5 mls/min Documented By: AMELIE Pantoprazole Sodium (Protonix) 40 mg in 10 mls @ 5 mls/min IV NOW ONE Stop: 05/30/25 15:57 Last Admin: 05/30/25 16:12 Dose: 5 mls/min Documented By: AMELIE Lactated Ringer's (Lr) 1,000 mls @ 999 mls/hr IV .Q1H1M ONE Stop: 05/30/25 20:22 Last Infusion: 05/30/25 21:35 Dose: Infused Documented By: Admin: 05/30/25 20:33 Dose: 999 mls/hr Documented By: YULIET Thiamine HCl 500 mg/ Sodium (Chloride) 55 mls @ 210 mls/hr IV NOW ONE Stop: 05/30/25 19:37 Last Infusion: 05/30/25 20:44 Dose: Infused Documented By: Admin: 05/30/25 20:17 Dose: 210 mls/hr Documented By: YULIET Folic Acid 1 mg/ Syringe 10 mls @ 5 mls/min IV NOW STA Stop: 05/30/25 19:23 Last Admin: 05/30/25 20:17 Dose: 5 mls/min Documented By: YULIET Ioversol (Optiray 320 100ml) 94 ml IV ONCE ONE Stop: 05/30/25 15:25 Last Admin: 05/30/25 15:24 Dose: 94 ml Documented By: GIULIA Morphine Sulfate (Morphine Sulfate 4 Mg/Ml 1 Ml Carp\\Vial) 4 mg IV Q15M PRN PRN Reason: Pain Stop: 06/13/25 14:26 Last Admin: 05/30/25 18:42 Dose: 4 mg Documented By: Admin: 05/30/25 16:12 Dose: 4 mg Documented By: AMELIE Imaging Data Attestation: I personally reviewed and interpreted this imaging study as follows: My Impression: 1 view chest x-ray was obtained in the emergency department. My interpretation is no free air or definite infiltrate, final report below. Radiologist's Impression: Abdomen/Pelvis CT 05/30/25 14:28 CT SCAN OF THE ABDOMEN AND PELVIS WITH IV CONTRAST CLINICAL HISTORY: Abdominal pain. COMPARISON STUDY: CT of the abdomen and pelvis June 12, 2024. TECHNIQUE: Following the IV administration of 94 cc of Optiray 320, CT scan of the abdomen and pelvis is performed from the lung bases to the proximal femora. Images are reviewed in the axial, sagittal, and coronal planes. IV contrast was administered without complication. A dose lowering technique was utilized adhering to the principles of ALARA. 50 cc of contrast infiltrated during IV contrast injection. The site was monitored. CT DOSE: 1429. mGy.cm FINDINGS: Visualized lung bases are unremarkable. There is no pneumatosis, free air or portal venous gas. There is hepatic steatosis. No hepatic lesions are identified. There is no biliary or pancreatic ductal dilatation. The pancreas is mildly edematous. Moderate peripancreatic fluid extending into the mesentery and anterior pararenal spaces is noted. No well-defined peripancreatic fluid collections are present. There is no CT evidence for pancreatic necrosis. The gallbladder is mildly distended. There is no significant pericholecystic inflammation. Spleen, adrenal glands and kidneys are normal. There is no hydronephrosis. There is moderate aortoiliac atherosclerotic plaque. No evidence for a bowel obstruction. The appendix is normal. Caliber and wall thickness of small and large bowel are normal. The stomach is fluid-filled and moderately distended. Wall thickening of the second and third portions of the duodenum is noted. Images of the pelvis are degraded by streak artifact from bilateral hip arthroplasties. IMPRESSION: 1. Edematous pancreas with moderate peripancreatic fluid consistent with acute pancreatitis. No peripancreatic fluid collections. No CT evidence for gland necrosis. 2. Duodenal wall thickening. This is nonspecific but may be reactive and related to pancreatitis. A partial obstruction cannot be excluded given a moderately distended fluid-filled stomach and could be correlated with clinical evidence for gastric outlet obstruction. 3. Hepatic steatosis. 4. Mildly distended gallbladder without convincing evidence for acute cholecystitis. ACT 112: Negative or not required by law. Electronically signed by: Sajan Ferrara M.D. 05/30/2025 3:49 PM Chest X-Ray 05/30/25 14:28 XR chest 1V portable CLINICAL HISTORY: pain COMPARISON STUDY: 06/12/2024 FINDINGS: There is moderate cardiomegaly without pulmonary vascular congestion. No consolidation or pleural effusion seen. No pneumothorax. IMPRESSION: No acute findings. ACT 112: Negative or not required by law. Electronically signed by: Clay Recinos M.D. 05/30/2025 3:34 PM Discharge Plan Visit Data Chief Complaint: Chest Pain Stated Complaint: CHEST PAIN, AB PAIN ED Provider: Justyn Bain Discharge Problem: Acute pancreatitis, Chest pain, Acute hyponatremia, Epigastric abdominal pain Patient Disposition: Admitted As Inpatient Condition: Fair Discharge Instructions Interventions: ED Discharge Assessment Last Done: 05/30/25 20:27
[2025-05-30] MEDS: SODIUM CHLORIDE 0.9% 500 ML IV STA (14:48)
[2025-05-30 14:57] LABS: Hematocrit (blood only) 39.4 % (42.0-52.0); Hemoglobin 13.8 g/dl (14.0-18.0); Immature Granulocytes # (auto) 0.06 K/uL (0.01-0.20); Immature Granulocytes % (auto) 0.4 %; Mean Corpuscular Hemoglobin 32.4 pg (25.0-34.0); Mean Corpuscular Volume 92.5 fL (80.0-100.0); Platelet Count 224 K/uL (130-400); RDW Standard Deviation 42.4 fL (36.4-46.3); Red Blood Count 4.26 M/uL (4.70-6.10); White Blood Count 13.36 K/ul (4.8-10.8)
[2025-05-30 15:10] LABS: Anion Gap 10 (3-11); Blood Urea Nitrogen 11 mg/dl (6-23); Calcium 9.6 mg/dl (8.6-10.3); Carbon Dioxide 25 mmol/L (21-32); Chloride 91 mmol/L (98-107); Glucose 191 mg/dl (70-99(Fasting)); Potassium 3.9 mmol/L (3.5-5.1); Sodium 126 mmol/L (136-145)
[2025-05-30] MEDS: OPTIRAY 320 100ml IV ONE (15:24)
[2025-05-30 15:27] LABS: INR 1.0 (0.9-1.1); Partial Thromboplastin Time 24 Seconds (21-31); Prothrombin Time 10.6 Seconds (9.0-12.0)
[2025-05-30 15:28] LABS: Alanine Aminotransferase 23 U/L (7-52); Albumin Globulin Ratio 1.6 (0.9-2); Albumin Level 4.5 gm/dl (3.4-5.0); Alkaline Phosphatase 52 U/L (34-104); Bilirubin,Total 0.7 mg/dl (0.2-1.0); Globulin 2.8 gm/dl (2.5-4.0); Lipase 2946 U/L (11-82); Total Protein 7.3 gm/dl (6.0-8.3)
--- NOTE | 2025-05-30 15:35 | XRay Report ---
XR chest 1V portable CLINICAL HISTORY: pain COMPARISON STUDY: 06/12/2024 FINDINGS: There is moderate cardiomegaly without pulmonary vascular congestion. No consolidation or p leural effusion seen. No pneumothorax. IMPRESSION: No acute findings. ACT 112: Negative or not required by law. Electronically signed by: Clay Recinos M.D. 05/30/2025 3:34 PM
--- NOTE | 2025-05-30 15:42 | Electrocardiogram Report ---
Test Reason : Blood Pressure : */* mmHG Vent. Rate : 89 BPM Atrial Rate : 89 BPM P-R Int : 156 ms QRS Dur : 92 ms QT Int : 364 ms P-R-T Axes : 86 70 77 degrees QTcB Int : 442 ms Normal sinus rhythm Possible Left atrial enlargement Cannot rule out Inferior infarct , age undetermined Anterior infarct (cited on or before 12-Jun-2024) Abnormal ECG When compared with ECG of 12-Jun-2024 19:01, No significant change was found Confirmed by Justyn Cavazos ([id number]) on 05/30/2025 3:41:54 PM Referred By: Confirmed By: Justyn Cavazos
--- NOTE | 2025-05-30 15:50 | CT Scan Report ---
CT SCAN OF THE ABDOMEN AND PELVIS WITH IV CONTRAST CLINICAL HISTORY: Abdominal pain. COMPARISON STUDY: CT of the abdomen and pelvis June 12, 2024. TECHNIQUE: Following the IV administration of 94 cc of Optiray 320, CT scan of the abdomen and pelvi s is performed from the lung bases to the proximal femora. Images are reviewed in the axial, sagittal , and coronal planes. IV contrast was administered without complication. A dose lowering technique wa s utilized adhering to the principles of ALARA. 50 cc of contrast infiltrated during IV contrast inje ction. The site was monitored. CT DOSE: 1429. mGy.cm FINDINGS: Visualized lung bases are unremarkable. There is no pneumatosis, free air or portal venous gas. There is hepatic steatosis. No hepatic lesions are identified. There is no biliary or pancreatic ductal dilatation. The pancreas is mildly edematous. Moderate peripancreatic fluid extending into th e mesentery and anterior pararenal spaces is noted. No well-defined peripancreatic fluid collections are present. There is no CT evidence for pancreatic necrosis. The gallbladder is mildly distended. Th ere is no significant pericholecystic inflammation. Spleen, adrenal glands and kidneys are normal. Th ere is no hydronephrosis. There is moderate aortoiliac atherosclerotic plaque. No evidence for a sara l obstruction. The appendix is normal. Caliber and wall thickness of small and large bowel are normal . The stomach is fluid-filled and moderately distended. Wall thickening of the second and third porti ons of the duodenum is noted. Images of the pelvis are degraded by streak artifact from bilateral hip arthroplasties. IMPRESSION: 1. Edematous pancreas with moderate peripancreatic fluid consistent with acute pancreatitis. No perip ancreatic fluid collections. No CT evidence for gland necrosis. 2. Duodenal wall thickening. This is nonspecific but may be reactive and related to pancreatitis. A p artial obstruction cannot be excluded given a moderately distended fluid-filled stomach and could be correlated with clinical evidence for gastric outlet obstruction. 3. Hepatic steatosis. 4. Mildly distended gallbladder without convincing evidence for acute cholecystitis. ACT 112: Negative or not required by law. Electronically signed by: Sajan Ferrara M.D. 05/30/2025 3:49 PM
[2025-05-30] MEDS: PANTOprazole 40 MG/10 ML SYR IV ONE (16:12)
[2025-05-30] MEDS: MoRPHine SULFATE 4 MG/ML 1 ML CARP\\VIAL IV PRN (16:12)
[2025-05-30] MEDS: FAMOTIDINE 20MG IV PUSH 20 MG/5 ML SYR IV STA (16:12)
--- NOTE | 2025-05-30 16:25 | History & Physical Report ---
Date of Service May 30, 2025 Assessment & Plan (1) Acute hyponatremia: (2) CAD (coronary artery disease): (3) History of CVA in adulthood: (4) Alcohol use disorder: (5) Diabetes mellitus, type II: (6) Pancreatitis: Plan #Acute pancreatitis - almost certainly alcohol related. Labs and imaging do not appear to support gallstone pathophysiology. IV fluids, early refeeding (clear liquid diet and rationale explained to patient and ), pain control/nausea control. Alcohol cessation if at all possible. Serial exams, supportive care. #possible duodenitis/peptic ulcer disease - While the CT reading would fit with small bowel swelling from the pancreatitis, his HPI certainly sounds like there could easily be distal stomach or duodenal pathology at play as wellwith the alcohol intake, as well as the symptoms, most likely peptic ulcer disease and/or scarring/stricture. For now he has been given Pepcid and Protonix in the ER. Will continue Protonix 40 mg IV twice daily. As we are trying to improve his p.o. intake, if it starts to behave more consistent with peptic ulcer disease we will manage as such, and if the early satiety continues, we will then also ask GI to consider EGD. - Serial exams, follow p.o. intake. #alcohol abuse/risk for withdrawal - alcohol abuse almost certainly the cause for the acute pancreatitis. At risk for withdrawalunclear how severe he may or may not withdraw. No signs or symptoms of withdrawal at this time. For now utilize at risk protocol, but very low threshold to escalate if he shows any up cycling of withdrawal. #poor p.o. intake/what sounds to be severe protein calorie malnutrition - His consideration that this all relates back to alcohol abuse could easily be the case, but as above, under possible duodenitis/peptic ulcer disease it also sounds like he could have chronic upper GI pathology at play causing early satiety. Follow his p.o. intake after he is "out of the gilmore" with the acute pancreatitis, and then very low threshold for endoscopic evaluation unless his symptoms essentially resolve #confusion/altered mental status at times - Etiology not entirely clear at this time. Will need to follow serial mental status. Certainly something along the lines of a Warnicke Korsakoff patho physiology would be concerning given his alcohol abuse and poor p.o. intake/malnutritionwith that in mind, we will be aggressive with thiamine/folate/B vitamin supplementation. Follow serial exams and mental status throughout his hospital stay, workup further if needed. #weakness - Most likely relates to his malnutrition, alcohol abuse, and altered mental status at times (and chronically has disability from his cerebrovascular disease and prior strokes)but at the same time we will need to follow. Right now unable to get a great assessment on things, but also there is not the acuity to need to. Follow serial exams, consider working up further if necessary, PT/OT eval and treat. Highly likely to need rehab. #cerebrovascular disease with prior strokes and chronic neurologic impairment (right arm and leg weakness) - secondary risk reduction and medications. Nothing about the above sounds fitting with an acute stroke (leg weakness seems to be bilateral now, chronically right leg but nothing new, mental status changes seem to be nonfocal) #coronary artery disease - secondary risk reduction and medication management #hyponatremia - fairly mildalmost certainly relates to alcohol intake as well as poor solute intake from poor p.o. intake. Fortunately not severely low. Doubt this will directly impact his care. #Seizure disorder - continue Keppra #type 2 diabetes - check A1c. Follow fingersticks. Supplemental insulin as needed, roll into basal bolus regimen if required #DVT prophylaxis - Lovenox History of Present Illness Chief Complaint: Abdominal pain Primary Care Provider: Terry Resendez MD patient presents with abdominal pain. A lot of the history is obtained from his given that he was in significant pain, and then finally had pain relief after narcotics but was sleeping quite soundly. I was able to obtain some HPI from patient. Putting together both of their stories, it sounds like his abdominal pain started todaywas quite severe and intense. Predominantly epigastric maybe a little bit right upper abdomen. He tends to be quite stoic with a high pain tolerance, and therefore tried to wait it outbut whenever the pain was clearly intolerable he then felt that he needed to come to the ER for further evaluation. Pain has improved a good bit with 4 mg of morphine. The superimposed on quite a bit of back storyhe has apparently been getting progressively more weak over the last few daysunclear etiologythe 's best description of this is a few days ago whenever he was in the car with her whenever they got to where they were going it took 3 people to get him from the car to the houselegs just being globally weak and shaky. On top of that, she notes that over the last few weeks (and worse in the last week given that they have recently moved to a new apartment) he seems to often not really catch what is going on or be poorly responsive to what is going on, are not really seem to understand the situation. This does not seem to be constant. Chronically, he has had a difficult time with p.o. intakehe feels full very easily, stops eating fairly quickly, and sometimes has had as little as a muffin in a day for his entire p.o. intake outside of alcohol. His assumed that a lot of it relates to the fact that he drinks at least 10 beers, often more, day and figured that a lot of the weak and shaky as well as the fullness was related to being intoxicated and/or having a stomach full of beer. She does not recall the last time he went a day without drinking, but does recall that the last time he was in the hospital for 3-4 days he became fairly belligerent, although whenever I discussed severe withdrawal/DT type phenotype he did not seem to fit for that. Allergies Allergy/AdvReac Type Severity Reaction Status Date / Time ciprofloxacin Allergy Severe hives Verified 09/01/24 06:25 simvastatin AdvReac Intermediate MUSCLE Verified 09/01/24 06:25 PAIN/WEAKNESS Barnzjj-[id number]-ZgR Reductase AdvReac Intermediate MUSCLE Verified 09/01/24 06:25 Inhibitor PAIN/WEAKNESS [Elhpodf-Kbh-Lzq Reductase Inhibitor] Home Medications Medication Instructions Recorded Confirmed Type clopidogrel 75 mg tablet 75 mg PO QAM ##0 06/14/15 08/16/24 History nitroglycerin 0.4 mg sublingual 0.4 mg sublingual DIRECTED PRN 04/18/18 08/16/24 History tablet Chest Pain ##0 aspirin 81 mg tablet,delayed 81 mg PO QAM 10/02/18 08/16/24 History release cholecalciferol (vitamin D3) 50 50 mcg PO QAM 11/27/22 08/16/24 History mcg (2,000 unit) capsule (Vitamin D3) duloxetine 30 mg capsule,delayed 30 mg PO AMPM 11/27/22 08/16/24 History release finasteride 5 mg tablet 5 mg PO QAM 11/27/22 08/16/24 History omeprazole 20 mg capsule,delayed 20 mg PO Q OTHER DAY 11/27/22 08/16/24 History release lasmiditan 50 mg tablet (Reyvow) 50 mg PO DIRECTED PRN Migraine 07/09/23/12/15 History Headache amlodipine 5 mg tablet 5 mg PO UD 06/12/24 09/01/24 History hydrocodone 5 mg-acetaminophen 325 1 tab PO TID PRN Pain 06/12/24 08/16/24 History mg tablet isosorbide mononitrate 30 mg 90 mg PO QAM 06/12/24 09/01/24 History tablet,extended release 24 hr levetiracetam 500 mg tablet 1,000 mg PO HS 06/12/24 08/16/24 History levetiracetam 500 mg tablet 500 mg PO QAM 06/12/24 09/01/24 History (Keppra) metoprolol succinate 25 mg 12.5 mg PO HS 06/12/24 08/16/24 History tablet,extended release 24 hr metoprolol succinate 25 mg 25 mg PO QAM 06/12/24 09/01/24 History tablet,extended release 24 hr folic acid 1 mg tablet 1 mg PO QAM #30 tabs 06/14/24 08/16/24 Rx thiamine HCl (vitamin B1) 100 mg 100 mg PO QAM #30 tabs 06/14/24 08/16/24 Rx tablet ondansetron 8 mg disintegrating 8 mg PO Q12H PRN Motion Sickness 08/02/24 08/16/24 History tablet Past Med/Surg History Problem List (Updated 05/30/25 @ 17:07 by Shayan Jenkins DO) Pancreatitis Headache (Acute) Weakness (Acute) Acute hyponatremia (Acute) Chest pain (Acute) Uncontrolled hypertension Demand ischemia Elevated troponin Vasovagal syncope Chest pain (Acute) Seizure disorder NSTEMI (non-ST elevated myocardial infarction) Syncope NSTEMI (non-ST elevated myocardial infarction) History of cardioembolic cerebrovascular accident (CVA) Previous back surgery (Chronic) Fracture of ankle, trimalleolar, right, open (Acute) Thoracic compression fracture (Acute) CAD (coronary artery disease) "S/p attempted PCI of a [employer] OPER[employer] of right coronary artery, procedure aborted due to small localized focal dissection of aortic root in Jun 2017" 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 Chen" Obesity (BMI 30-39.9) (Chronic) Medical History Hx of carotid artery stenosis (2012) "s/p EDITH stent placement 08/23/2013; Dr. Chen" Expressive aphasia due to hx cva Hx of fracture mulitple, due to falls thoracic compression, right iliac wing, right and left inferior and superior pubic ramus, left ankle, sacral Osteoarthritis Hx of non-ST elevation myocardial infarction (NSTEMI) cardiac cath x3 2009 - [facility] - [facility] -no stents 2015- [facility], no mi, no stents 2017 - attempted 3rd, had partial aortic dissection, [facility] [place], no surgery - follows with cardio dr. 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 2 years ago "grand mal" - controlled on meds - follows with dr. sharma History of CVA in adulthood (2016) 2013 and 2016- has expressiva aphashia, no movement of right side, drags right foot when ambulating, right arm is contracted, follows with neuro Dr. Sharma at [facility] Bacteremia hx - after pelvic fracture - had picc line abx at home Hyponatremia Hypertension History of aortic dissection (2016) during cardiac cath 2016, [facility] Tobacco use disorder Alcohol use disorder Left thalamic infarction "July 2017" Diabetes mellitus, type II no longer takes metformin COPD (chronic obstructive pulmonary disease) sob with exertion Statin intolerance ASCVD (arteriosclerotic cardiovascular disease) Classic migraine gets weekly Dyslipidemia GERD (gastroesophageal reflux disease) Depression Surgical History Hx of right cataract extraction (08/09/24) History of bronchoscopy History of bladder surgery (12/2023) "green light procedure" - dr. michel lees, no longer has to self-cath Hx of colonoscopy with polypectomy History of open reduction and internal fixation (ORIF) procedure left ankle, due to fall, has screws and plates Hx of cardiac catheterization (2016) x3 2010 - [facility] - [facility] -no stents 2016- [facility], no mi, no stents 2017 - attempted 3rd, had partial aortic dissection, [facility], no surgery - follows with cardio dr. larson (~ 2months) History of carotid endarterectomy (2012) [facility], right carotid stent, had stroke Hx of kyphoplasty (2015) History of repair of right rotator cuff Hx of bilateral hip replacements Hx of tonsillectomy Family History Son Spherocytosis Other Heart disease Social History Smoking Status: Current every day smoker Tobacco Type: Cigarettes Cigarettes Per Day: 1 ppd (advised); Second Hand Exposure: No; Do You Dip or Chew Tobacco: No; Hx Alcohol Use: Yes Alcohol type: beer Alcohol Intake Frequency: 4 or More x per/Week Alcohol Intake Frequency Comment: 5-6 beers/day Hx Substance Use: No Preferred Language: Kyrgyz Communication Ability: Impaired Communication Ability Comment: aphasia/previous cva Optometrist Assistant Required: No Beliefs That Will Affect Care: None marital status: Current Living Situation: Spouse Current Living Situation Comment: How many Children do You have: 3 Feels Safe at Home: Yes Assistive Devices: Cane Review of Systems Review of Systems: All systems reviewed & are unremarkable except as noted in HPI & below Physical Exam Physical Exam: In general he is awake and alertinitially he is sleeping soundly, he does seem a little bit "under the influence" with the morphine, but whenever he wakes up does not appear to be in distress. HEENT normocephalic atraumatic mucous membranes moist. Cardio is regular rate. Breathing unlabored no accessory muscle use good effort. Abdomen is soft moderately distended he has epigastric tenderness but no guarding rebound or rigidity. Mild right upper quadrant tenderness no guarding rebound or rigidity. Extremities are without cyanosis or clubbing. Neuro shows no focal deficits, cranial nerves II through XII appear to be grossly intact gross motor and sensory are intact. No lateralizing signs. Skin without rashes, pallor, icterus. Labs and diagnostics noted. Results & Data Results & Data Vital Signs (Past 12 Hours) Vital Signs Temp Pulse Resp BP Pulse Ox O2 Del Method O2 Flow Rate 05/30/25 15:06 95 H 05/30/25 14:42 97.9 F 89 25 H 171/91 H 96 Room Air 05/30/25 14:36 Room Air 96 05/30/25 14:36 96 Room Air Code Status & VTE Plan VTE Prophylaxis Plan VTE Prophylaxis will be ordered: Yes PG Care Time/CCT Total # of Minutes Spent Total Time Spent with Patient: Total time spent is greater than 50% in coordination of care (as documented) at patient's floor/unit and/or counseling patient: Coding Level of Care Code 84998 INT INP/OBS CARE 3/75MIN Diagnoses Acute hyponatremia E87.1 CAD (coronary artery disease) I25.10 History of CVA in adulthood Z86.73 Alcohol use disorder F10.90 Diabetes mellitus, type II E11.9 Pancreatitis K85.90
[2025-05-30] MEDS ORDERED: POLYETHYLENE (MIRALAX) 17 GM PACK PO PRN (19:22)
[2025-05-30] MEDS ORDERED: ALUMINUM/MAGNESIUM SUSP 30 ML UDC PO PRN (19:22)
[2025-05-30] MEDS ORDERED: MAGNESIUM HYDROXIDE SUSP 30 ML UDC PO PRN (19:22)
[2025-05-30] MEDS ORDERED: LORazepam Inj 1 MG in SYRINGE 0.5 ML IV PRN (19:22)
[2025-05-30] MEDS ORDERED: MELATONIN 3 MG TAB PO PRN (19:22)
[2025-05-30] MEDS ORDERED: ONDANSETRON INJ 2 MG/ML 2 ML VIAL IV PRN (19:22)
[2025-05-30] MEDS: FOLIC ACID 1 MG in SYRINGE 9.8 ML IV STA (20:17)
[2025-05-30] MEDS: THIAMINE HCL 500 MG in SODIUM CHLORIDE 0.9% 50 ML IV ONE (20:17)
[2025-05-30] MEDS: LACTATED RINGER'S 1,000 ML IV ONE (20:33)
[2025-05-30] MEDS: LACTATED RINGER'S 1,000 ML IV SCH (21:28)
[2025-05-30] MEDS: PANTOprazole 40 MG/10 ML SYR IV SCH (21:29)
[2025-05-30] MEDS: ENOXAPARIN INJ 40 MG/0.4 ML SYR SQ SCH (21:29)
[2025-05-30] MEDS: INSULIN ASPART PER UNIT CHARGE SC SCH (21:30)
[2025-05-30] MEDS: levETIRAcetam 500 MG TAB PO SCH (21:31)
[2025-05-30] MEDS: METOPROLOL SUCC 25MG EXT REL TAB PO SCH (21:32)
[2025-05-31] MEDS: THIAMINE HCL 500 MG in SODIUM CHLORIDE 0.9% 50 ML IV SCH (02:27)
[2025-05-31 06:01] LABS: Hematocrit (blood only) 35.6 % (42.0-52.0); Hemoglobin 12.6 g/dl (14.0-18.0); Immature Granulocytes # (auto) 0.05 K/uL (0.01-0.20); Immature Granulocytes % (auto) 0.4 %; Mean Corpuscular Hemoglobin 33.3 pg (25.0-34.0); Mean Corpuscular Volume 94.2 fL (80.0-100.0); Platelet Count 173 K/uL (130-400); RDW Standard Deviation 43.0 fL (36.4-46.3); Red Blood Count 3.78 M/uL (4.70-6.10); White Blood Count 12.00 K/ul (4.8-10.8)
[2025-05-31 06:20] LABS: Anion Gap 6.0 (3-11); Blood Urea Nitrogen 8.0 mg/dl (6-23); Calcium 8.9 mg/dl (8.6-10.3); Carbon Dioxide 27.0 mmol/L (21-32); Chloride 96.0 mmol/L (98-107); Cholesterol 170.0 mg/dl (0-200); Creatinine Clr Calc Pharmacy 86.1 ml/min; Glucose 100.0 mg/dl (70-99(Fasting)); HDL Cholesterol 71.0 mg/dl; Potassium 4.6 mmol/L (3.5-5.1); Sodium 129.0 mmol/L (136-145); Triglycerides 131.0 mg/dl (0-150)
--- NOTE | 2025-05-31 07:55 | Hospitalist Progress Note ---
Date of Service May 31, 2025 Assessment & Plan (1) Acute pancreatitis: (2) Alcohol use disorder, moderate, dependence: (3) Type 2 diabetes mellitus with hyperglycemia: (4) Seizure disorder: Plan In summary this is a 69-year-old male who presents with acute moderate pancreatitis consequential alcohol use #Acute moderate pancreatitis secondary to alcohol use At presentation the patient was noted to have an elevated lipase of 2946, with imaging finding consistent with acute pancreatitis without an obstructive source nor laboratory evidence of obstruction; as further detailed below, the patient's most likely cause is alcohol induced pancreatitis; the patient has had significant improvement in her symptoms overnight, tolerating oral intake this morning with clear liquids, continue management as detailed below Advance diet as tolerated; once the patient is regularly maintaining oral intake and hydrating appropriately, intravenous fluids can be discontinued Continue acetaminophen 600 mg p.o. every 4 hours as needed for pain Continue hydromorphone 0.5 mg IV every 2 hours as needed for breakthrough pain #Alcohol use disorder Patient endorses drinking approximately 2 cases of [place] weekly for many years; the patient is unsure if they have gone through alcohol withdrawal previously, they do specify that their previous seizure was not related to alcohol; PA WSS of 3 Continue with anticipatory assessment of the patient's alcohol withdrawal with TIKA S and initiation of benzodiazepine therapy if necessary; presumably the patient's last alcoholic drink was on 05/29 Continue folic acid and thiamine supplementation #Hyperlipidemia//peripheral arterial disease Continue home medication regimen including clopidogrel, amlodipine, Imdur, metoprolol succinate #Seizure disorder, unspecified Continue home [facility] Admission and Anticipated Discharge Date Admission Date: May 30, 2025 Subjective Mr. León is a 69-year-old male whose active medical conditions include hypertension, hyperlipidemia, peripheral arterial disease secondary to hyperlipidemia, previous CVA without persistent neurologic deficit who presented to the [facility] on 05/30 due to sudden onset severe abdominal pain found to have moderate acute pancreatitis consequential alcohol use, subsequently admitted for continued care. No acute overnight events; the patient's abdominal pain has improved this morning and they are tolerating clear liquids. They deny any passage of stool, but they endorse some flatulence and improved abdominal distension Review of Systems Review of Systems: Review of constitutional, cardiovascular, pulmonary, gastrointestinal, and neurologic systems was unremarkable except for pertinent findings as detailed above Physical Exam Physical Exam: General: Adult male in no acute distress Vital Signs: Reviewed HEENT: Moist mucous membranes Pulmonary: Symmetric chest wall excursion without restriction; clear to auscultation bilaterally Cardiovascular: Regular rate and rhythm without murmurs, rubs, or gallops; right radial pulse 2+; no notable lower extremity edema Gastrointestinal: Protuberant, firm; nontender at rest, but tender with moderately deep palpation throughout the entire abdomen as well as with percussion which is resonant; no acute peritoneal findings Neurologic: Cranial nerves II through XII grossly intact; no discernible focal weakness no paresthesia Psychiatric: Denies any visual or auditory hallucinations; denies any increased sense of anxiety or stress; alert and oriented to self, place, time, circumstance Results & Data Results & Data Vital Signs (Past 12 Hours) Vital Signs Temp Pulse Resp BP BP Pulse Ox O2 Del Method 05/31/25 07:41 Room Air 05/31/25 07:30 37.2 C 83 18 150/73 H 93 Room Air 05/31/25 04:03 37.0 C 81 14 167/88 H 92 Room Air 05/30/25 23:00 37.0 C 95 H 14 160/80 H 93 Room Air 05/30/25 20:55 36.7 C 96 H 16 193/82 H 95 Room Air 05/30/25 20:27 Room Air 05/30/25 20:00 158/82 H 94 Room Air PG Care Time/CCT Total # of Minutes Spent Total Time Spent with Patient: Total time spent is greater than 50% in coordination of care (as documented) at patient's floor/unit and/or counseling patient: Coding Level of Care Code 67630 SUB INP/OBS CARE 2/35MIN Diagnoses Alcohol-induced acute pancreatitis without infection or necrosis K85.20 Pancreatitis type: alcohol induced Acute pancreatitis complication: no infection or necrosis Alcohol use disorder, moderate, dependence F10.20 Type 2 diabetes mellitus with hyperglycemia, without long-term current use of insulin E11.65 Diabetes mellitus fdc insulin use: without fdc use Seizure disorder G40.909 (1) Acute pancreatitis Pancreatitis type: alcohol induced Acute pancreatitis complication: no infection or necrosis Qualified Code(s): K85.20 - Alcohol induced acute pancreatitis without necrosis or infection (3) Type 2 diabetes mellitus with hyperglycemia Diabetes mellitus fdc insulin use: without supervisor intermediates use Qualified Code(s): E11.65 - Type 2 diabetes mellitus with hyperglycemia
[2025-05-31 08:03] LABS: Hemoglobin A1C 6.5 % (4.5-5.6)
[2025-05-31] MEDS: FOLIC ACID 1 MG in SYRINGE 9.8 ML IV SCH (08:58)
[2025-05-31] MEDS: CLOPIDOGREL BISULFATE 75 MG TAB PO SCH (08:58)
[2025-05-31] MEDS: VITAMIN B COMPLEX TAB PO SCH (08:58)
[2025-05-31] MEDS: CYANOCOBALAMIN (B-12) 500 MCG TABLET PO SCH (08:58)
[2025-05-31] MEDS: METOPROLOL SUCC 25MG EXT REL TAB PO SCH (08:58)
[2025-05-31] MEDS: ISOSORBIDE MONO EXTENDED REL 30 MG TABCR PO SCH (08:58)
[2025-05-31] MEDS: ASPIRIN 81 MG ECTAB PO SCH (08:58)
[2025-05-31] MEDS: FINASTERIDE 5 MG TAB PO SCH (08:59)
[2025-05-31] MEDS: ACETAMINOPHEN 325 MG TAB PO PRN (08:59)
[2025-05-31] MEDS: levETIRAcetam 500 MG TAB PO SCH (08:59)
[2025-05-31] MEDS: HYDROmorphone INJ 0.5 MG/0.5 ML SYR IV PRN (15:58)
--- NOTE | 2025-06-01 07:41 | Hospitalist Progress Note ---
Date of Service June 01, 2025 Assessment & Plan (1) Acute pancreatitis: (2) Alcohol use disorder, moderate, dependence: (3) Type 2 diabetes mellitus with hyperglycemia: (4) Seizure disorder: Plan In summary this is a 69-year-old male who presents with acute moderate pancreatitis consequential alcohol use #Acute moderate pancreatitis secondary to alcohol use At presentation the patient was noted to have an elevated lipase of 2946, with imaging finding consistent with acute pancreatitis without an obstructive source nor laboratory evidence of obstruction; as further detailed below, the patient's most likely cause is alcohol induced pancreatitis; the patient has had significant improvement in her symptoms overnight, tolerating oral intake this morning with clear liquids, continue management as detailed below Advance diet as tolerated - IVF discontinued 06/01 Continue acetaminophen 650 mg p.o. every 4 hours as needed for pain Continue hydromorphone 0.5 mg IV every 2 hours as needed for breakthrough pain #Alcohol use disorder Patient endorses drinking approximately 2 cases of [place] weekly for many years; the patient is unsure if they have gone through alcohol withdrawal previously, they do specify that their previous seizure was not related to alcohol; PA WSS of 3 Continue with anticipatory assessment of the patient's alcohol withdrawal with AWSS and initiation of benzodiazepine therapy if necessary; presumably the patient's last alcoholic drink was on 05/29 Continue folic acid and thiamine supplementation #Hyperlipidemia//peripheral arterial disease Continue home medication regimen including clopidogrel, amlodipine, Imdur, metoprolol succinate #Seizure disorder, unspecified Continue home [facility] Admission and Anticipated Discharge Date Admission Date: May 30, 2025 Subjective Mr. León is a 69-year-old male whose active medical conditions include hypertension, hyperlipidemia, peripheral arterial disease secondary to hyperlipidemia, previous CVA without persistent neurologic deficit who presented to the [facility] on 05/30 due to sudden onset severe abdominal pain found to have moderate acute pancreatitis consequential alcohol use, subsequently admitted for continued care. No acute overnight events Review of Systems Review of Systems: Review of constitutional, cardiovascular, pulmonary, gastrointestinal, and neurologic systems was unremarkable except for pertinent findings as detailed above Physical Exam Physical Exam: General: Adult male in no acute distress Vital Signs: Reviewed HEENT: Moist mucous membranes Pulmonary: Symmetric chest wall excursion without restriction; clear to auscultation bilaterally Cardiovascular: Regular rate and rhythm without murmurs, rubs, or gallops; right radial pulse 2+; no notable lower extremity edema Gastrointestinal: Protuberant, firm; nontender at rest, but tender with moderately deep palpation throughout the entire abdomen as well as with percussion which is resonant; no acute peritoneal findings Neurologic: Cranial nerves II through XII grossly intact; no discernible focal weakness no paresthesia Psychiatric: Denies any visual or auditory hallucinations; denies any increased sense of anxiety or stress; alert and oriented to self, place, time, circumstance Results & Data Results & Data Vital Signs (Past 12 Hours) Vital Signs Temp Pulse Resp BP Pulse Ox O2 Del Method 06/01/25 03:24 36.5 C 89 18 165/70 H 94 Room Air 05/31/25 22:55 37.1 C 86 18 155/73 H 94 Room Air 05/31/25 20:48 37.2 C Laboratory Results Pending renal function panel and CBC without differential PG Care Time/CCT Total # of Minutes Spent Total Time Spent with Patient: Total time spent is greater than 50% in coordination of care (as documented) at patient's floor/unit and/or counseling patient: Coding Level of Care Code 67536 SUB INP/OBS CARE 2/35MIN Diagnoses Alcohol-induced acute pancreatitis without infection or necrosis K85.20 Acute pancreatitis complication: no infection or necrosis Pancreatitis type: alcohol induced Alcohol use disorder, moderate, dependence F10.20 Type 2 diabetes mellitus with hyperglycemia, without long-term current use of insulin E11.65 Diabetes mellitus terminal supervisor insulin use: without [facility] use Seizure disorder G40.909 (1) Acute pancreatitis Acute pancreatitis complication: no infection or necrosis Pancreatitis type: alcohol induced Qualified Code(s): K85.20 - Alcohol induced acute pancreatitis without necrosis or infection (3) Type 2 diabetes mellitus with hyperglycemia Diabetes mellitus [facility] insulin use: without [facility] use Qualified Code(s): E11.65 - Type 2 diabetes mellitus with hyperglycemia
[2025-06-01 10:45] LABS: Hematocrit (blood only) 34.6 % (42.0-52.0); Hemoglobin 12.0 g/dl (14.0-18.0); Mean Corpuscular Hemoglobin 32.8 pg (25.0-34.0); Mean Corpuscular Volume 94.5 fL (80.0-100.0); Platelet Count 173 K/uL (130-400); RDW Standard Deviation 43.8 fL (36.4-46.3); Red Blood Count 3.66 M/uL (4.70-6.10); White Blood Count 13.69 K/ul (4.8-10.8)
[2025-06-01 10:57] LABS: Albumin Level 3.5 gm/dl (3.4-5.0); Anion Gap 9.0 (3-11); Blood Urea Nitrogen 6.0 mg/dl (6-23); Calcium 8.9 mg/dl (8.6-10.3); Carbon Dioxide 26.0 mmol/L (21-32); Chloride 93.0 mmol/L (98-107); Creatinine Clr Calc Pharmacy 104.2 ml/min; Glucose 133.0 mg/dl (70-99(Fasting)); Potassium 3.5 mmol/L (3.5-5.1); Sodium 128.0 mmol/L (136-145)
[2025-06-02 05:11] LABS: Hematocrit (blood only) 36.3 % (42.0-52.0); Hemoglobin 12.2 g/dl (14.0-18.0); Mean Corpuscular Hemoglobin 31.8 pg (25.0-34.0); Mean Corpuscular Volume 94.5 fL (80.0-100.0); Platelet Count 176 K/uL (130-400); RDW Standard Deviation 42.8 fL (36.4-46.3); Red Blood Count 3.84 M/uL (4.70-6.10); White Blood Count 13.65 K/ul (4.8-10.8)
[2025-06-02 05:27] LABS: Albumin Level 3.8 gm/dl (3.4-5.0); Anion Gap 7.0 (3-11); Blood Urea Nitrogen 6.0 mg/dl (6-23); Calcium 9.0 mg/dl (8.6-10.3); Carbon Dioxide 27.0 mmol/L (21-32); Chloride 92.0 mmol/L (98-107); Creatinine Clr Calc Pharmacy 108.2 ml/min; Glucose 121.0 mg/dl (70-99(Fasting)); Potassium 3.5 mmol/L (3.5-5.1); Sodium 126.0 mmol/L (136-145)
--- NOTE | 2025-06-02 07:40 | Hospitalist Progress Note ---
Date of Service June 02, 2025 Assessment & Plan (1) Acute pancreatitis: (2) Alcohol use disorder, moderate, dependence: (3) Type 2 diabetes mellitus with hyperglycemia: (4) Seizure disorder: (5) Chronic hyponatremia: Plan In summary this is a 69-year-old male who presents with acute moderate pancreatitis consequential alcohol use #Acute moderate pancreatitis secondary to alcohol use At presentation the patient was noted to have an elevated lipase of 2946, with imaging finding consistent with acute pancreatitis without an obstructive source nor laboratory evidence of obstruction; as further detailed below, the patient's most likely cause is alcohol induced pancreatitis; the patient has had significant improvement in her symptoms overnight, tolerating oral intake this morning with clear liquids, continue management as detailed below Advance diet as tolerated - IVF discontinued 06/01 Continue acetaminophen 650 mg p.o. every 4 hours as needed for pain Continue hydromorphone 0.5 mg IV every 2 hours as needed for breakthrough pain #Alcohol use disorder Patient endorses drinking approximately 2 cases of [place] weekly for many years; the patient is unsure if they have gone through alcohol withdrawal pre viously, they do specify that their previous seizure was not related to alcohol; PA WSS of 3 Continue with anticipatory assessment of the patient's alcohol withdrawal with AWSS and initiation of benzodiazepine therapy if necessary; presumably the patient's last alcoholic drink was on 05/29 Continue folic acid and thiamine supplementation #Chronic hyponatremia Serum sodium at presentation was diminished at 126; remains euvolemic; trend since admission 129, 128, 126; patient is maintained in the outpatient setting on duloxetine, hydrocodone/acetaminophen, levetiracetam all of which are associated with chronic hyponatremia; may also be related to beer [place] ver[place] pending further laboratory assessment as detailed below; calculated serum osmolarity of 261 -pending urine osmolarity and sodium -Intake and output measure every shift -Follow daily RFP and Magnesium #Hyperlipidemia//peripheral arterial disease Continue home medication regimen including clopidogrel, amlodipine, Imdur, metoprolol succinate #Seizure disorder, unspecified Continue home [facility] Admission and Anticipated Discharge Date Admission Date: May 30, 2025 Subjective Mr. 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 on 05/30 due to sudden onset severe abdominal pain found to have moderate acute pancreatitis consequential alcohol use, subsequently admitted for continued care. No acute overnight events Review of Systems Review of Systems: Review of constitutional, cardiovascular, pulmonary, gastrointestinal, and neurologic systems was unremarkable except for pertinent findings as detailed above Physical Exam Physical Exam: General: Adult male in no acute distress Vital Signs: Reviewed HEENT: Moist mucous membranes Pulmonary: Symmetric chest wall excursion without restriction; clear to auscultation bilaterally Cardiovascular: Regular rate and rhythm without murmurs, rubs, or gallops; right radial pulse 2+; no notable lower extremity edema Gastrointestinal: Protuberant, firm; nontender at rest, but tender with moderately deep palpation throughout the entire abdomen as well as with percussion which is resonant; no acute peritoneal findings Neurologic: Cranial nerves II through XII grossly intact; no discernible focal weakness no paresthesia Psychiatric: Denies any visual or auditory hallucinations; denies any increased sense of anxiety or stress; alert and oriented to self, place, time, circumstance Results & Data Results & Data Vital Signs (Past 12 Hours) Vital Signs Temp Pulse Resp BP Pulse Ox O2 Del Method 06/01/25 23:10 37.2 C 78 16 172/70 H 95 Room Air 06/01/25 21:17 72 171/90 H 06/01/25 21:15 Room Air PG Care Time/CCT Total # of Minutes Spent Total Time Spent with Patient: Total time spent is greater than 50% in coordination of care (as documented) at patient's floor/unit and/or counseling patient: Coding Diagnoses Alcohol-induced acute pancreatitis without infection or necrosis K85.20 Acute pancreatitis complication: no infection or necrosis Pancreatitis type: alcohol induced Alcohol use disorder, moderate, dependence F10.20 Type 2 diabetes mellitus with hyperglycemia, without long-term current use of insulin E11.65 Diabetes mellitus senior living insulin use: without senior living use Seizure disorder G40.909 Chronic hyponatremia E87.1 (1) Acute pancreatitis Acute pancreatitis complication: no infection or necrosis Pancreatitis type: alcohol induced Qualified Code(s): K85.20 - Alcohol induced acute pancreatitis without necrosis or infection (3) Type 2 diabetes mellitus with hyperglycemia 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
[2025-06-02 14:32] LABS: Appearance Urine Clear (Clear); Bacteria Urine Automated None Seen (None Seen); Cast Urine Automated 0-2 /lpf (0-2); Epithelial Cell Urine Auto 0-2 /hpf (0-2); Glucose Urine UA Trace (Negative); WBC Urine Automated 0-5 /hpf (0-5)
[2025-06-02 15:25] VITALS: PULSE 67
[2025-06-02 15:33] VITALS: BP 140/77; RESP 16; TEMP 98.6; O2SAT 94
--- NOTE | 2025-06-02 17:37 | Discharge Summary ---
Discharge Summary Date of Service June 02, 2025 Principal Dx & Hospital Course #1 = Principal Diagnosis (1) Acute pancreatitis: (2) Alcohol use disorder, moderate, dependence: (3) Type 2 diabetes mellitus with hyperglycemia: (4) Seizure disorder: (5) Chronic hyponatremia: Plan #Acute moderate pancreatitis secondary to alcohol use At presentation the patient was noted to have an elevated lipase of 2946, with imaging finding consistent with acute pancreatitis without an obstructive source nor laboratory evidence of obstruction; as further detailed below, the patient's most likely cause is alcohol induced pancreatitis Tolerated regular diet without complication on day of discharge #Alcohol use disorder Patient endorses drinking approximately 2 cases of [place] weekly for many years; the patient is unsure if they have gone through alcohol withdrawal previously, they do specify that their previous seizure was not related to alcohol; PAWSS of 3; without evidence of withdrawal in their 3 day hospital admission #Chronic hyponatremia Serum sodium at presentation was diminished at 126; euvolemic on day of discharge; trend since admission 129, 128, 126; patient is maintained in the outpatient setting on duloxetine, hydrocodone/acetaminophen, levetiracetam all of which are associated with chronic hyponatremia; may also be related to beer potomania; calculated serum osmolarity of 261, urine osmolality of 541, random urine sodium of 69; noted to have microscopic hematuria with numerous other trace findings; most likely a consequence of iatrogenic causes as well as SIADH in the setting of their discomfort from acute pancreatitis - Reassess RFP on 06/05 #Hyperlipidemia//peripheral arterial disease Continue home medication regimen including clopidogrel, amlodipine, Imdur, metoprolol succinate #Seizure disorder, unspecified Continue home [facility] Admission HPI Per Admitting Provider patient presents with abdominal pain. A lot of the history is obtained from his given that he was in significant pain, and then finally had pain relief after narcotics but was sleeping quite soundly. I was able to obtain some HPI from patient. Putting together both of their stories, it sounds like his abdominal pain started todaywas quite severe and intense. Predominantly epigastric maybe a little bit right upper abdomen. He tends to be quite stoic with a high pain tolerance, and therefore tried to wait it outbut whenever the pain was clearly intolerable he then felt that he needed to come to the ER for further evaluation. Pain has improved a good bit with 4 mg of morphine. The superimposed on quite a bit of back storyhe has apparently been getting progressively more weak over the last few daysunclear etiologythe 's best description of this is a few days ago whenever he was in the car with her whenever they got to where they were going it took 3 people to get him from the car to the houselegs just being globally weak and shaky. On top of that, she notes that over the last few weeks (and worse in the last week given that they have recently moved to a new apartment) he seems to often not really catch what is going on or be poorly responsive to what is going on, are not really seem to understand the situation. This does not seem to be constant. Chronically, he has had a difficult time with p.o. intakehe feels full very easily, stops eating fairly quickly, and sometimes has had as little as a muffin in a day for his entire p.o. intake outside of alcohol. His assumed that a lot of it relates to the fact that he drinks at least 10 beers, often more, day and figured that a lot of the weak and shaky as well as the fullness was related to being intoxicated and/or having a stomach full of beer. She does not recall the last time he went a day without drinking, but does recall that the last time he was in the hospital for 3-4 days he became fairly belligerent, although whenever I discussed severe withdrawal/DT type phenotype he did not seem to fit for that. Discharge Exam General: Adult male in no acute distress Vital Signs: Reviewed HEENT: Moist mucous membranes Pulmonary: Symmetric chest wall excursion without restriction; clear to auscultation bilaterally Cardiovascular: Regular rate and rhythm without murmurs, rubs, or gallops; right radial pulse 2+; no notable lower extremity edema Gastrointestinal: Protuberant, firm; nontender at rest, but tender with moderately deep palpation throughout the entire abdomen as well as with percussion which is resonant; no acute peritoneal findings Neurologic: Cranial nerves II through XII grossly intact; no discernible focal weakness no paresthesia Psychiatric: Denies any visual or auditory hallucinations; denies any increased sense of anxiety or stress; alert and oriented to self, place, time, circumstance Discharge Plan Discharge Items Patient Disposition: Home - Self-Care Reason For Visit: ACUTE PANCREATITIS Discharge Diagnosis: Moderate acute pancreatitis secondary to alcohol use disorder, without dependence // Hyponatremia, unspecified and asymptomatic Condition on Discharge: Fair Activity: Per Instructions section Non-emergency contact: Primary Care Provider Call non-emergency contact if: you have any medication questions and your symptoms worsen Follow-up/Referrals: Terry Resendez MD [Primary Care Provider] - Diet: Carb Consistent or DM2 Fluids: 2000ml (8 cups) Ambulatory Orders: Renal Function Panel (Routine) Timeframe: 3 Days Location: Determined by Patient Ordered By: Jimmy Garcia Attending Provider Instructions: You were admitted to [facility] for moderate acute pancreatitis secondary to alcohol use disorder. With respect to your pancreatitis, management of this was relatively uncomplicated, you were able to tolerate oral intake at the time of admission, and slowly increase your diet to your regular diet on the day of discharge without any associated symptoms or complications. Given the triggering cause of this episode of pancreatitis was related to alcohol use, we strongly recommend weaning of your volume of alcohol intake; there is no healthy amount of alcohol to consume however we would recommend at maximum drinking 1 standard alcoholic beverage 4 times per week to avoid future complications related to alcohol use. You are also found to have persistently diminished sodium during your hospitalization; he requested discharge prior to further assessment of this, given the absence of associated symptomatology this was permitted. If there are any concerning findings noted on your pending laboratory assessment, you will be contacted by the ordering provider. We also ordered a repeat assessment of your serum sodium and other electrolytes to be obtained on 06/05; this does not need to be a fasting lab. We recommend close follow-up with your primary care physician within the next 5 to 7 days to discuss your hospitalization and continued management of care Thank you for choosing [facility] as your healthcare provider. Pending Studies at Discharge: Yes Studies:: Urinalysis, Urine Osmolarity, Urine Sodium Stand-Alone Forms: My [facility] Medications and DC Order Prescriptions: Continued clopidogrel 75 mg Tablet 75 mg PO QAM Qty: 0 nitroglycerin 0.4 mg Tablet, Sublingual 0.4 mg Sublingual DIRECTED PRN (Reason: Chest Pain) Qty: 0 Rx Instructions: PLACE ONE TABLET UNDER THE TONGUE EVERY 5 MINUTES FOR UP TO 3 DOSES OVER 15 MINUTES IF NEEDED FOR CHEST PAIN aspirin 81 mg Tablet,Delayed Release (Dr/Ec) 81 mg PO QAM omeprazole 20 mg capsule,delayed release(DR/EC) 20 mg PO Q OTHER DAY finasteride 5 mg tablet 5 mg PO QPM cholecalciferol (vitamin D3) [Vitamin D3] 50 mcg (2,000 unit) Capsule 50 mcg PO QAM Reyvow 50 mg tablet 50 mg PO DIRECTED MDD 1 dose in 24 hours PRN (Reason: Migraine Headache) Rx Instructions: take 1 tablet at onset of migraine metoprolol succinate 25 mg tablet extended release 24 hr 12.5 mg PO HS levetiracetam [Keppra] 500 mg tablet 500 mg PO QAM metoprolol succinate 25 mg tablet extended release 24 hr 25 mg PO QAM levetiracetam 500 mg tablet 1,000 mg PO HS amlodipine 5 mg tablet 5 mg PO UD Rx Instructions: 2.5mg QAM and 5mg QPM isosorbide mononitrate 30 mg Tablet Extended Release 24 Hr 90 mg PO QAM Rx Instructions: take 3 tablets by mouth in the morning thiamine HCl (vitamin B1) 100 mg Tablet 100 mg PO QAM Qty: 30 0RF Trelegy Ellipta 100-62.5-25 mcg blister with device 1 inh INHALATION QAM hydrocodone-acetaminophen 5-325 mg tablet 1 tab PO TID PRN (Reason: Pain) albuterol sulfate 90 mcg/actuation HFA aerosol inhaler 2 puff INHALATION Q6 PRN (Reason: wheezing or cough) duloxetine 30 mg capsule,delayed release(DR/EC) 30 mg PO AMPM ranolazine 500 mg tablet extended release 12 hr 500 mg PO AMHS albuterol sulfate 2.5 mg /3 mL (0.083 %) Solution For Nebulization 2.5 mg INHALATION Q4H PRN (Reason: as directed) ondansetron HCl 4 mg Tablet 4 mg PO Q6H PRN (Reason: Nausea) acetaminophen 500 mg Tablet 500 mg PO Q4 PRN (Reason: Pain) Discharge Orders: Discharge Order (Routine); Ordered 06/02/25 Ordered By: Jimmy Page/Other Patient Handouts: Managing Type 2 Diabetes, Pancreatitis Acute Dc Admission Data Admit Date/Time: 05/30/25 16:24 Attending Provider: Jimmy Ambrose Admit Provider: Shayan Jenkins Primary Care Provider: Terry Resendez Other Providers: Shayan Jenkins Other Interventions: Discharge Summary Assessment (RN) Last Done: 06/02/25 15:34 Hospital Stay Data Consultations 05/30/25 16:15 ED Decision to Admit Stat Diagnostic Imagining Performed 05/30/25 14:28 CT abd pelvis IV con only Stat Pending Results Patient Have Any Pending Studies at Discharge: Yes Discharge Instructions Given to Patient (Per Discharging Provider) You were admitted to [facility] for moderate acute pancreatitis secondary to alcohol use disorder. With respect to your pancreatitis, management of this was relatively uncomp licated, you were able to tolerate oral intake at the time of admission, and slowly increase your diet to your regular diet on the day of discharge without any associated symptoms or complications. Given the triggering cause of this episode of pancreatitis was related to alcohol use, we strongly recommend weaning of your volume of alcohol intake; there is no healthy amount of alcohol to consume however we would recommend at maximum drinking 1 standard alcoholic beverage 4 times per week to avoid future complications related to alcohol use. You are also found to have persistently diminished sodium during your hospitalization; he requested discharge prior to further assessment of this, given the absence of associated symptomatology this was permitted. If there are any concerning findings noted on your pending laboratory assessment, you will be contacted by the ordering provider. We also ordered a repeat assessment of your serum sodium and other electrolytes to be obtained on 06/05; this does not need to be a fasting lab. We recommend close follow-up with your primary care physician within the next 5 to 7 days to discuss your hospitalization and continued management of care Thank you for choosing [facility] as your healthcare provider. Total Time Total Time Spent Total Time Spent (In Minutes): I personally spent 45 minutes in today's discharge including bedside counseling, physical exam, review of medical record, medication reconciliation Coding Level of Care Code 15201 INP/OBS DISCH >30 MIN Diagnoses Alcohol-induced acute pancreatitis without infection or necrosis K85.20 Acute pancreatitis complication: no infection or necrosis Pancreatitis type: alcohol induced Alcohol use disorder, moderate, dependence F10.20 Type 2 diabetes mellitus with hyperglycemia, without long-term current use of insulin E11.65 Diabetes mellitus senior care insulin use: without buttermaker use Seizure disorder G40.909 Chronic hyponatremia E87.1
--- NOTE | 2025-06-05 16:10 | Coding Query ---
MALNUTRITION To promote full compliance with coding requirements relating to patient care, physician participation is requested in all cases of stonemason helper uncertainty. Please assist us with the question(s) below: Please place an X within the parenthesis (x). If other, please document: "Malnutrition" is documented in this record. (History/Physical) If possible, please check the box that provides a more specific diagnosis: ( ) Mild malnutrition ( ) Moderate malnutrition ( ) Severe malnutrition ( ) Protein malnutrition (kwashiorkor) ( ) Severe protein calorie malnutrition ( ) Protein calorie malnutrition, unspecified ( ) Other (please specify): Was this diagnosis present on admission? Please place an X within the parenthesis (x). ( ) Present on admission ( ) Not present on admission ( ) Unable to be clinically determined Thank you GOPI Silverio [facility]
--- NOTE | 2025-06-06 05:09 | Coding Query ---
MALNUTRITION To promote full compliance with coding requirements relating to patient care, physician participation is requested in all cases of certified coder uncertainty. Please assist us with the question(s) below: Please place an X within the parenthesis (x). If other, please document: "Malnutrition" is documented in this record.( History & Physical) If possible, please check the box that provides a more specific diagnosis: ( ) Mild malnutrition ( ) Moderate malnutrition ( ) Severe malnutrition ( ) Protein malnutrition (kwashiorkor) ( x) Severe protein calorie malnutrition ( ) Protein calorie malnutrition, unspecified ( ) Other (please specify): Was this diagnosis present on admission? Please place an X within the parenthesis (x). ( ) Present on admission ( ) Not present on admission ( ) Unable to be clinically determined Thank you GOPI Silverio [facility]Fla[facility]
== END 2025-06-02 16:15 | disposition home or self-care (01) | DRG 438 ==
LOC: ED 14:22 → EDINP 16:24 → SUATTDRO 16:24 → 3W 20:27

== ENCOUNTER 2025-06-04 09:43 | Inpatient (IN) ==
--- NOTE | 2025-06-04 09:59 | Emergency Department Note ---
History of Present Illness General Chief complaint: Trauma Stated complaint: FALL, HIP & THIGH PAIN Time Seen by Provider: 06/04/25 09:50 History of Present Illness Provider complaint: Fall Maximum Pain Intensity: 6 69-year-old alcoholic male presents emergency department for fall. Patient states that yesterday around 2 PM he went to go get some more beer while watching the football game and then fell. Patient states he is not sure how he fell but states he passed out. Patient is unsure how long he was down on the ground for but his had to help him up. Patient states that he woke up this morning and was having pain in his right hip and right thigh. Home Medications Medication Instructions Recorded Confirmed Type clopidogrel 75 mg tablet 75 mg PO QAM ##0 06/14/15 06/04/25 History nitroglycerin 0.4 mg sublingual 0.4 mg sublingual DIRECTED PRN 04/18/18 06/04/25 History tablet Chest Pain ##0 aspirin 81 mg tablet,delayed 81 mg PO QAM 10/02/18 06/04/25 History release cholecalciferol (vitamin D3) 50 50 mcg PO QAM 11/27/22 06/04/25 History mcg (2,000 unit) capsule (Vitamin D3) finasteride 5 mg tablet 5 mg PO QPM 11/27/22 06/04/25 History omeprazole 20 mg capsule,delayed 20 mg PO Q OTHER DAY 11/27/22 06/04/25 History release lasmiditan 50 mg tablet (Reyvow) 50 mg PO DIRECTED PRN Migraine 07/09/23 06/04/25 History Headache amlodipine 5 mg tablet 5 mg PO UD 06/12/24 06/04/25 History isosorbide mononitrate 30 mg 90 mg PO QAM 06/12/24 06/04/25 History tablet,extended release 24 hr levetiracetam 500 mg tablet 1,000 mg PO HS 06/12/24 06/04/25 History levetiracetam 500 mg tablet 500 mg PO QAM 06/12/24 06/04/25 History (Keppra) metoprolol succinate 25 mg 12.5 mg PO HS 06/12/24 06/04/25 History tablet,extended release 24 hr metoprolol succinate 25 mg 25 mg PO QAM 06/12/24 06/04/25 History tablet,extended release 24 hr thiamine HCl (vitamin B1) 100 mg 100 mg PO QAM #30 tabs 06/14/24 06/04/25 Rx tablet acetaminophen 500 mg tablet 500 mg PO Q4 PRN Pain 05/30/25 06/04/25 History albuterol sulfate 2.5 mg/3 mL 2.5 mg inhalation Q4H PRN as 05/30/25 06/04/25 History (0.083 %) solution for nebulization directed albuterol sulfate 90 mcg/actuation 2 puff inhalation Q6 PRN wheezing 05/30/25 06/04/25 History aerosol inhaler or cough duloxetine 30 mg capsule,delayed 30 mg PO AMPM 05/30/25 06/04/25 History release fluticasone fur. 100 mcg-umeclid 1 inh inhalation QAM 05/30/25 06/04/25 History 62.5 mcg-vilant 25 mcg inhalat.powder (Trelegy Ellipta) hydrocodone 5 mg-acetaminophen 325 1 tab PO TID PRN Pain 05/30/25 06/04/25 History mg tablet ondansetron HCl 4 mg tablet 4 mg PO Q6H PRN Nausea 05/30/25 06/04/25 History ranolazine 500 mg tablet,extended 500 mg PO AMHS 05/30/25 06/04/25 History release,12 hr Allergies Allergy/AdvReac Type Severity Reaction Status Date / Time ciprofloxacin Allergy Severe hives Verified 05/30/25 17:36 simvastatin AdvReac Intermediate MUSCLE Verified 05/30/25 17:36 PAIN/WEAKNESS Ofwncvo-ZSC-ByU Reductase AdvReac Intermediate MUSCLE Verified 05/30/25 17:36 Inhibitor PAIN/WEAKNESS [Obgbsdz-Qlm-Ige Reductase Inhibitor] Past Med/Surg History Problem List (Updated 06/04/25 @ 17:07 by Viktor Black MD) Closed right hip fracture (Acute) Fall Chronic hyponatremia (Acute) Type 2 diabetes mellitus with hyperglycemia Alcohol use disorder, moderate, dependence Epigastric abdominal pain (Acute) Acute pancreatitis (Acute) Pancreatitis (Acute) Headache (Acute) Weakness (Acute) Acute hyponatremia (Acute) Chest pain (Acute) Uncontrolled hypertension Demand ischemia Elevated troponin Vasovagal syncope Chest pain (Acute) Seizure disorder NSTEMI (non-ST elevated myocardial infarction) Syncope NSTEMI (non-ST elevated myocardial infarction) History of cardioembolic cerebrovascular accident (CVA) Previous back surgery (Chronic) Fracture of ankle, trimalleolar, right, open (Acute) Thoracic compression fracture (Acute) CAD (coronary artery disease) "S/p attempted PCI of a [employer]NAGER of right coronary artery, procedure aborted due to small localized focal dissection of aortic root in Jun 2017" 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 Chen" Obesity (BMI 30-39.9) (Chronic) Medical History Hx of carotid artery stenosis (2012) "s/p EDITH stent placement 08/23/2013; Dr. Chen" Expressive aphasia due to hx cva Hx of fracture mulitple, due to falls thoracic compression, right iliac wing, right and left inferior and superior pubic ramus, left ankle, sacral Osteoarthritis Hx of non-ST elevation myocardial infarction (NSTEMI) cardiac cath x3 2009 - [facility]stem[facility] - [facility] -no stents 2015- [facility], no mi, no stents 2017 - attempted 3rd, had partial aortic dissection, s at [place], no surgery - follows with cardio dr. larson (~ 2months) Chronic pain CAD (coronary artery disease) "S/p attempted PCI of a [employer]OUNT MANAGER of right coronary artery, procedure aborted due to small localized focal dissection of aortic root in Jun 2017" Dyspnea on exertion Hx of falling Hx of urethral stricture (12/2023) hx green light procedure, no issues since Hx of colonic polyps History of difficult intubation per , alexy, "they told me he is hard to intubate because it is hard to get his mouth open." unable to elaborate on what doctors told her this Seizure disorder last seizure approx. 2 years ago "grand mal" - controlled on meds - follows with dr. sharma History of CVA in adulthood (2016) 2013 and 2017- has expressiva aphashia, no movement of right side, drags right foot when ambulating, right arm is contracted, follows with neuro Dr. Sharma at [facility] Bacteremia hx - after pelvic fracture - had picc line abx at home Hyponatremia Hypertension History of aortic dissection (2016) during cardiac cath 2017, [facility] Tobacco use disorder Alcohol use disorder Left thalamic infarction "July 2017" Diabetes mellitus, type II no longer takes metformin COPD (chronic obstructive pulmonary disease) sob with exertion Statin intolerance ASCVD (arteriosclerotic cardiovascular disease) Classic migraine gets weekly Dyslipidemia GERD (gastroesophageal reflux disease) Depression Surgical History Hx of right cataract extraction (08/09/24) History of bronchoscopy History of bladder surgery (12/2023) "green light procedure" - dr. michel lees, no longer has to self-cath Hx of colonoscopy with polypectomy History of open reduction and internal fixation (ORIF) procedure left ankle, due to fall, has screws and plates Hx of cardiac catheterization (2016) x3 2009 - [facility] - [facility] -no stents 2016- [facility], no mi, no stents 2017 - attempted 3rd, had partial aortic dissection, [facility] at [place], no surgery - follows with cardio dr. larson (~ 2months) History of carotid endarterectomy (2012) [facility], right carotid stent, had stroke Hx of kyphoplasty (2015) History of repair of right rotator cuff Hx of bilateral hip replacements Hx of tonsillectomy Family History Son Spherocytosis Other Heart disease Social History Smoking Status: Current every day smoker Tobacco Type: Cigarettes Cigarettes Per Day: 1/2 pack; Second Hand Exposure: No; Do You Dip or Chew Tobacco: No; Hx Alcohol Use: Yes Alcohol type: beer Alcohol Intake Frequency: 4 or More x per/Week Alcohol Intake Frequency Comment: 5-6 beers/day Hx Substance Use: No Preferred Language: Estonian Communication Ability: Effective Communication Ability Comment: aphasia/previous cva Gamma Facilities Operator Required: No Beliefs That Will Affect Care: None marital status: Current Living Situation: Spouse Current Living Situation Comment: How many Children do You have: 3 Feels Safe at Home: Yes Assistive Devices: None Physical Exam Vital Signs Vital Signs - 24 hr 06/04/25 09:52 06/04/25 10:12 06/04/25 10:17 Temperature 36.7 C Temperature Source Oral Pulse Rate 96 H 87 89 Pulse Rate [Apical] Pulse Rate from SpO2 Sensor 88 Respiratory Rate 20 21 Respiratory Effort / Characteristics Non-Labored Spontaneous Respiratory Depth Normal Respiratory Pattern Regular Blood Pressure 178/87 H Blood Pressure [Right Arm] Blood Pressure Mean 117 Blood Pressure Mean [Right Arm] Blood Pressure Position Lying Blood Pressure Position [Right Arm] Pulse Oximetry 98 95 Oxygen Delivery Method Room Air Oxygen Flow Rate Sepsis Recent Fever Within 48 Hours No Sepsis New/Unexplained Change in Mental Status No Sepsis Action Taken by Nursing No Action Required 06/04/25 10:25 06/04/25 10:39 06/04/25 10:40 Temperature Temperature Source Pulse Rate 100 H Pulse Rate [Apical] Pulse Rate from SpO2 Sensor 99 H Respiratory Rate 25 H Respiratory Effort / Characteristics Respiratory Depth Respiratory Pattern Blood Pressure Blood Pressure [Right Arm] 165/93 H Blood Pressure Mean Blood Pressure Mean [Right Arm] 117 Blood Pressure Position Blood Pressure Position [Right Arm] Lying Pulse Oximetry 95 94 Oxygen Delivery Method Room Air Oxygen Flow Rate Sepsis Recent Fever Within 48 Hours Sepsis New/Unexplained Change in Mental Status Sepsis Action Taken by Nursing 06/04/25 10:51 06/04/25 11:00 06/04/25 11:00 Temperature Temperature Source Pulse Rate 92 H Pulse Rate [Apical] 96 H Pulse Rate from SpO2 Sensor 93 H Respiratory Rate 22 20 Respiratory Effort / Characteristics Non-Labored Spontaneous Respiratory Depth Normal Respiratory Pattern Regular Blood Pressure 107/68 Blood Pressure [Right Arm] 107/68 Blood Pressure Mean 75 Blood Pressure Mean [Right Arm] 81 Blood Pressure Position Blood Pressure Position [Right Arm] Lying Pulse Oximetry 95 95 Oxygen Delivery Method Room Air Oxygen Flow Rate Sepsis Recent Fever Within 48 Hours Sepsis New/Unexplained Change in Mental Status Sepsis Action Taken by Nursing 06/04/25 11:45 06/04/25 11:51 06/04/25 11:51 Temperature Temperature Source Pulse Rate 99 H 101 H Pulse Rate [Apical] Pulse Rate from SpO2 Sensor 98 H Respiratory Rate 23 18 Respiratory Effort / Characteristics Respiratory Depth Respiratory Pattern Blood Pressure 163/80 H Blood Pressure [Right Arm] Blood Pressure Mean 124 Blood Pressure Mean [Right Arm] Blood Pressure Position Blood Pressure Position [Right Arm] Pulse Oximetry 97 Oxygen Delivery Method Oxygen Flow Rate Sepsis Recent Fever Within 48 Hours Sepsis New/Unexplained Change in Mental Status Sepsis Action Taken by Nursing 06/04/25 11:53 06/04/25 11:57 06/04/25 12:00 Temperature 36.7 C Temperature Source Pulse Rate 91 H Pulse Rate [Apical] 93 H Pulse Rate from SpO2 Sensor Respiratory Rate 20 22 Respiratory Effort / Characteristics Non-Labored Spontaneous Respiratory Depth Normal Respiratory Pattern Regular Blood Pressure 163/80 H Blood Pressure [Right Arm] 153/82 H Blood Pressure Mean Blood Pressure Mean [Right Arm] 105 Blood Pressure Position Blood Pressure Position [Right Arm] Lying Pulse Oximetry 96 94 94 Oxygen Delivery Method Room Air Room Air Room Air Oxygen Flow Rate 95 Sepsis Recent Fever Within 48 Hours Sepsis New/Unexplained Change in Mental Status Sepsis Action Taken by Nursing 06/04/25 12:00 06/04/25 12:00 06/04/25 12:30 Temperature Temperature Source Pulse Rate 90 96 H Pulse Rate [Apical] Pulse Rate from SpO2 Sensor 90 93 H Respiratory Rate 17 24 Respiratory Effort / Characteristics Respiratory Depth Respiratory Pattern Blood Pressure 153/82 H Blood Pressure [Right Arm] Blood Pressure Mean 113 Blood Pressure Mean [Right Arm] Blood Pressure Position Blood Pressure Position [Right Arm] Pulse Oximetry 94 94 Oxygen Delivery Method Oxygen Flow Rate Sepsis Recent Fever Within 48 Hours Sepsis New/Unexplained Change in Mental Status Sepsis Action Taken by Nursing 06/04/25 13:00 06/04/25 13:00 06/04/25 13:27 Temperature Temperature Source Pulse Rate 98 H 93 H Pulse Rate [Apical] Pulse Rate from SpO2 Sensor 99 H 93 H Respiratory Rate 20 22 Respiratory Effort / Characteristics Respiratory Depth Respiratory Pattern Blood Pressure 153/88 H Blood Pressure [Right Arm] Blood Pressure Mean 115 Blood Pressure Mean [Right Arm] Blood Pressure Position Blood Pressure Position [Right Arm] Pulse Oximetry 94 93 Oxygen Delivery Method Oxygen Flow Rate Sepsis Recent Fever Within 48 Hours Sepsis New/Unexplained Change in Mental Status Sepsis Action Taken by Nursing 06/04/25 13:30 06/04/25 13:30 06/04/25 13:39 Temperature Temperature Source Pulse Rate 96 H Pulse Rate [Apical] Pulse Rate from SpO2 Sensor 96 H Respiratory Rate 20 Respiratory Effort / Characteristics Respiratory Depth Respiratory Pattern Blood Pressure 136/84 136/84 Blood Pressure [Right Arm] Blood Pressure Mean 113 113 Blood Pressure Mean [Right Arm] Blood Pressure Position Blood Pressure Position [Right Arm] Pulse Oximetry 93 Oxygen Delivery Method Oxygen Flow Rate Sepsis Recent Fever Within 48 Hours Sepsis New/Unexplained Change in Mental Status Sepsis Action Taken by Nursing 06/04/25 13:51 06/04/25 14:00 06/04/25 14:03 Temperature Temperature Source Pulse Rate 96 H 98 H Pulse Rate [Apical] Pulse Rate from SpO2 Sensor 97 H Respiratory Rate 18 17 Respiratory Effort / Characteristics Respiratory Depth Respiratory Pattern Blood Pressure 125/92 Blood Pressure [Right Arm] Blood Pressure Mean 104 Blood Pressure Mean [Right Arm] Blood Pressure Position Blood Pressure Position [Right Arm] Pulse Oximetry 94 Oxygen Delivery Method Oxygen Flow Rate Sepsis Recent Fever Within 48 Hours Sepsis New/Unexplained Change in Mental Status Sepsis Action Taken by Nursing 06/04/25 14:30 06/04/25 14:30 06/04/25 14:30 Temperature Temperature Source Pulse Rate 93 H Pulse Rate [Apical] Pulse Rate from SpO2 Sensor 94 H Respiratory Rate 22 Respiratory Effort / Characteristics Respiratory Depth Respiratory Pattern Blood Pressure 157/87 H 157/87 H Blood Pressure [Right Arm] Blood Pressure Mean 115 115 Blood Pressure Mean [Right Arm] Blood Pressure Position Blood Pressure Position [Right Arm] Pulse Oximetry 92 Oxygen Delivery Method Oxygen Flow Rate Sepsis Recent Fever Within 48 Hours Sepsis New/Unexplained Change in Mental Status Sepsis Action Taken by Nursing 06/04/25 15:00 06/04/25 15:00 06/04/25 15:15 Temperature Temperature Source Pulse Rate 96 H Pulse Rate [Apical] 94 H 93 H Pulse Rate from SpO2 Sensor 96 H Respiratory Rate 18 18 23 Respiratory Effort / Characteristics Respiratory Depth Respiratory Pattern Blood Pressure Blood Pressure [Right Arm] 172/90 H 172/90 H Blood Pressure Mean Blood Pressure Mean [Right Arm] 117 117 Blood Pressure Position Blood Pressure Position [Right Arm] Pulse Oximetry 93 92 91 Oxygen Delivery Method Room Air Room Air Oxygen Flow Rate Sepsis Recent Fever Within 48 Hours Sepsis New/Unexplained Change in Mental Status Sepsis Action Taken by Nursing 06/04/25 15:15 06/04/25 16:00 06/04/25 16:17 Temperature Temperature Source Pulse Rate 100 H 102 H Pulse Rate [Apical] 99 H Pulse Rate from SpO2 Sensor Respiratory Rate 19 18 17 Respiratory Effort / Characteristics Respiratory Depth Respiratory Pattern Blood Pressure Blood Pressure [Right Arm] 138/72 Blood Pressure Mean Blood Pressure Mean [Right Arm] 94 Blood Pressure Position Blood Pressure Position [Right Arm] Pulse Oximetry 94 92 92 Oxygen Delivery Method Room Air Room Air Room Air Oxygen Flow Rate Sepsis Recent Fever Within 48 Hours Sepsis New/Unexplained Change in Mental Status Sepsis Action Taken by Nursing 06/04/25 16:17 Temperature Temperature Source Pulse Rate Pulse Rate [Apical] 102 H Pulse Rate from SpO2 Sensor Respiratory Rate 17 Respiratory Effort / Characteristics Respiratory Depth Respiratory Pattern Blood Pressure Blood Pressure [Right Arm] 138/72 Blood Pressure Mean Blood Pressure Mean [Right Arm] 94 Blood Pressure Position Blood Pressure Position [Right Arm] Pulse Oximetry 91 Oxygen Delivery Method Room Air Oxygen Flow Rate Sepsis Recent Fever Within 48 Hours Sepsis New/Unexplained Change in Mental Status Sepsis Action Taken by Nursing Primary Survey Airway: Intact Breathing: Normal, breath sounds equal bilaterally Circulation: Skin warm, distal pulses 2+, capillary refill less than 2 seconds Disability Pupils: Equal and reactive to light, 2 mm, brisk GCS: 15, E = 4 V=5 M= 6 Motor Function: Moves all extremities. Sensory: No deficits Secondary Survey GEN: Well developed and well-nourished HEAD: Normocephallic atruamatic EYES: Pupils round reactive to light, conjunctiva clear, extraocular movements intact, no raccoons eyes ENT: no nunes's sign, nares patent, oropharynx clear NECK: No JVD, midline trachea, no cervical spine tenderness HEART: Regular rate and rhythm LUNGS: Clear to auscultation bilaterally. CHEST: Chest wall non-tender, no bruising/deformity ABD: soft, pain on palpation of the epigastric area, no rebound or guarding MUSC: Pelvis stable. Pain on palpation of the right hip and right proximal femur. NEURO: CNII-XII grossly intact, no sensory deficits Course Course 0950: The patient was evaluated in room B9. A complete history and physical exam was performed Cardiac monitoring: An order was placed for continuous cardiac monitoring. The monitor shows a rate of 100 with sinus rhythm interpreted by [facility] trauma alert activated. 1205: X-ray shows periprosthetic orthopedic fracture. Will discuss the case with on-call orthopedics Dr. Rodriguez who is patient at this time. 1352: Vital signs stable. Patient C-spine cleared. Labs are unremarkable chronic hyponatremia of 127. Lipase 105. Imaging is concerning for the periprosthetic fracture as well as acute pancreatitis. Discussed the case with on-call orthopedics Dr. Rodriguez who reviewed the patient's images and he states that the patient will most likely not need surgery for this type of fracture but does recommend a CT of the hip. He states he will be on consult and had the patient admitted to the medicine team. Administered Medications Hydromorphone HCl (Hydromorphone Inj 1 Mg/Ml Syringe) 1 mg IV Q3H PRN PRN Reason: Severe Pain (7,8,9,10) on NRS Stop: 06/18/25 15:14 Last Admin: 06/04/25 15:35 Dose: 1 mg Documented By: priti Discontinued Medications Heparin Sodium (Porcine) (Heparin Sod 5,000 Unit/0.5 Ml Vial) 5,000 units SQ NOW STA Stop: 06/04/25 16:29 Last Admin: 06/04/25 16:53 Dose: 5,000 units Documented By: priti Hydromorphone HCl (Hydromorphone Inj 1 Mg/Ml Syringe) 1 mg IV NOW STA Stop: 06/04/25 11:34 Last Admin: 06/04/25 11:38 Dose: 1 mg Documented By: KHADRA Hydromorphone HCl (Hydromorphone Inj 1 Mg/Ml Syringe) 1 mg IV NOW STA Stop: 06/04/25 12:46 Last Admin: 06/04/25 12:47 Dose: 1 mg Documented By: KHADRA Sodium Chloride (Nss) 1,000 mls @ 999 mls/hr IV .Q1H1M ONE Stop: 06/04/25 13:03 Last Infusion: 06/04/25 15:39 Dose: Infused Documented By: priti Infusion: 06/04/25 13:40 Dose: Infused Documented By: Admin: 06/04/25 12:05 Dose: 999 mls/hr Documented By: KHADRA Sodium Chloride (Nss) 1,000 mls @ 125 mls/hr IV .Q8H BRIAN Stop: 06/07/25 13:59 Last Infusion: 06/04/25 15:40 Dose: 0 mls/hr Documented By: priti Admin: 06/04/25 14:21 Dose: 125 mls/hr Documented By: KHADRA Ioversol (Optiray 320 100ml) 94 ml IV ONCE ONE Stop: 06/04/25 11:17 Last Admin: 06/04/25 11:16 Dose: 94 ml Documented By: KATHY Ondansetron HCl (Ondansetron Inj 2 Mg/Ml 2 Ml Vial) 4 mg IV NOW STA Stop: 06/04/25 11:34 Last Admin: 06/04/25 11:38 Dose: 4 mg Documented By: KHADRA Critical Care Time Critical Care Time: Yes Total Critical Care Time: 50 I have personally spent greater than 50 minutes of critical care time in the direct management of this patient. This includes bedside care, interpretation of diagnostic studies, and testing, discussion with consultants, patient, and family members, and other required patient management activities. This 50 minutes is in excess of all separately billable procedures. Medical Decision Making Laboratory Data Attestation: I reviewed the patient's lab results. 06/04/25 09:58 06/04/25 10:59 Lab Results 06/04/25 06/04/25 Range/Units 09:58 10:59 WBC 12.51 H (4.8-10.8) K/ul RBC 3.71 L (4.70-6.10) M/uL Hgb 12.0 L (14.0-18.0) g/dl Hct 34.5 L (42.0-52.0) % MCV 93.0 (80.0-100.0) fL MCH 32.3 (25.0-34.0) pg MCHC 34.8 (32.0-36.0) g/dL RDW Std Deviation 41.4 (36.4-46.3) fL RDW Coeff of Keny 12.1 (11.5-14.5) % Plt Count 265 (130-400) K/uL MPV 8.9 L (9.4-12.4) fL Immature Gran % (Auto) 1.0 % Neut % (Auto) 79.0 % Lymph % (Auto) 10.2 % [place] % (Auto) 9.0 % Eos % (Auto) 0.5 % Baso % (Auto) 0.3 % Neut # (Auto) 9.88 H (1.40-6.50) K/uL Lymph # (Auto) 1.27 (1.20-3.40) K/uL [place] # (Auto) 1.13 H (0.11-0.59) K/uL Eos # (Auto) 0.06 (0.00-0.50) K/uL Baso # (Auto) 0.04 (0.00-0.20) K/uL Immature Gran # (Auto) 0.13 (0.01-0.20) K/uL PT Cancelled 11.3 INR Cancelled 1.1 APTT Cancelled 28 PTT Ratio Cancelled 1.0 Sodium 127 L (136-145) mmol/L Potassium TNP 3.3 L Chloride 90 L (98-107) mmol/L Carbon Dioxide 25 (21-32) mmol/L Anion Gap 12 H (3-11) BUN 16 (6-23) mg/dl Creatinine 1.08 (0.6-1.4) mg/dl Est Cr Clr Drug Dosing 77.3 ml/min eGFR 73.82 BUN/Creatinine Ratio 14.8 (10-20) Glucose 109 H (70-99(Fasting)) mg/dl Calcium 9.5 (8.6-10.3) mg/dl Magnesium 2.0 (1.7-2.4) mg/dl Total Bilirubin 0.7 (0.2-1.0) mg/dl Direct Bilirubin TNP 0.3 H AST TNP 27 ALT 24 (7-52) U/L Alkaline Phosphatase 69 (34-104) U/L Total Creatine Kinase 118 (30-223) U/L Troponin I High Sens 9.2 (0-20) pg/ml Total Protein 7.5 (6.0-8.3) gm/dl Albumin 3.9 (3.4-5.0) gm/dl Lipase 105 H (11-82) U/L Imaging Data Attestation: I personally reviewed and interpreted this imaging study as follows: My Impression: Femur x-ray: Periprosthetic fracture Radiologist's Impression: Abdomen/Pelvis CT 06/04/25 09:57 HISTORY: Fall with abdominal pain. TECHNIQUE: Helical CT imaging of the abdomen and pelvis was performed with contrast. Images are presented in axial, sagittal, and coronal reformats. COMPARISON: None. FINDINGS: Lung Bases/Inferior Mediastinum: Trace left pleural effusion. Mild atelectasis at the lung bases. 0.3 cm nodule in the right middle lobe on series 8 image 1.Coronary artery calcifications are present. Liver: Mild hepatic steatosis. Gallbladder: Unremarkable Spleen: Unremarkable Adrenals: Unremarkable Pancreas: Acute inflammation surrounding the pancreas concerning for acute pancreatitis. No pancreatic ductal dilation. No obvious pancreatic necrosis. Kidneys: Unremarkable Stomach/Bowel: Stomach and duodenum are unremarkable. Small bowel loops are normal in caliber. Normal caliber appendix. Colon is normal in caliber. Lymph nodes: Unremarkable Vasculature: Moderate atherosclerotic vascular disease. No abdominal aortic aneurysm. Pelvis: Streak artifact from bilateral hip arthroplasties limits evaluation of the pelvis. Urinary bladder is unremarkable as visualized. No obvious free pelvic fluid. Soft Tissues: Unremarkable Bones: Bilateral hip arthroplasties. Remote healed fracture deformity the right inferior and superior pubic rami. Periprosthetic fracture involving the subtrochanteric region of the right proximal femur is partially imaged. Partially fused sacroiliac joints. Lumbar facet arthrosis.Chronic L2 burst fracture with kyphoplasty changes. Retropulsion of the posterior wall contributes to moderate central canal stenosis at L1-2. IMPRESSION: * Acute pancreatitis. * Acuteperiprosthetic fracture involving the Sub trochanteric region of the right proximal femurs partially imaged. * 0.3 cm right middle lobe nodule on series 8 image 1. No routine follow-up is necessary per Fleischner Society criteria. If the patient is considered high risk for lung malignancy (i.e. history of smoking or malignancy), then follow-up chest CT can be performed in 12 months. * Numerous additional chronic and/or incidental findings as detailed above. ACT 112: Positive. There are findings on this exam that require communication between the performing entity and the patient following Patient Test Result Information Act ([place] ACT 112) guidelines. Electronically signed by Addi Magdaleno 06-04-2025 11:[address] 06/04/25 09:57 HISTORY: Trauma with neck pain. TECHNIQUE: CT imaging of the cervical spine without IV contrast. Images are presented in axial, sagittal, coronal reformats. COMPARISON: None. FINDINGS: Reversal of cervical curvature.Cervical levoscoliosis. No significant listhesis.Vertebral body heights are preserved without compression deformity.No acute fractures identified. Multilevel degenerative disc disease is most pronounced and severe at C5-6 and C6-7. Posteriorly directed disc osteophyte complex mildly narrowing the central canal at C6-7. Multilevel neural foraminal stenosis is most pronounced and severe on the right at C3-4 and C4-5. No prevertebral edema or hematoma.Severe atherosclerotic plaque at the right carotid bifurcation. Endovascular stent in the right proximal internal carotid artery. Moderate to severe atherosclerotic calcification of the left carotid bifurcation. Included lungs are clear. IMPRESSION: * No acute cervical spine fractures identified. * Reversal of cervical curvature and cervical levoscoliosis. * Severe degenerative changes of the cervical spine with multilevel central canal and neuroforaminal stenosis. * Severe atherosclerotic plaque at the carotid bifurcations. Endovascular stent in the right proximal internal carotid artery. Consider correlation with carotid Doppler ultrasound for degree of carotid artery stenosis. ACT 112: Positive. There are findings on this exam that require communication between the performing entity and the patient following Patient Test Result Information Act ([place] ACT 112) guidelines. Electronically signed by Addi Magdaleno 06-04-2025 11:54 AM Chest X-Ray 06/04/25 09:57 HISTORY: Shortness of breath. TECHNIQUE: Portable AP radiograph of the chest. COMPARISON: Chest radiograph dated 05/30/2025 FINDINGS: court monitor leads overlie the chest. No focal lung consolidation. No pneumothorax or pleural effusion. Normal heart size. Left-sided aortic arch. Midline trachea. Chronic deformity of the right distal clavicle. Included upper abdomen is unremarkable. Mildly elevated left hemidiaphragm. IMPRESSION: No acute cardiopulmonary findings. Electronically signed by Addi Magdaleno 06-04-2025 11:14 AM Femur X-Ray 06/04/25 09:57 HISTORY: Fall with right hip pain. TECHNIQUE: Right femur, 3 views. COMPARISON: Right femur radiographs dated 06/15/2021. FINDINGS: Right hip arthroplasty. Acute mildly displaced periprosthetic fracture about the proximal femur in the subtrochanteric region. No additional fracture of the mid or distal femur. Atherosclerotic vascular calcification. IMPRESSION: Acute mildly displaced periprosthetic fracture of the proximal femur in the subtrochanteric region. Electronically signed by Addi Magdaleno 06-04-2025 11:[address] 06/04/25 09:57 HISTORY: Fall with head injury. TECHNIQUE: CT of the head without contrast. Images are presented in axial, sagittal, and coronal reformats. COMPARISON: Head CT dated 06/12/2024. FINDINGS: No evidence of acute intracranial hemorrhage or abnormal extra-axial fluid collection. Large area of encephalomalacia involving the left frontal lobe may represent sequela of prior infarct. Ventricular caliber is appropriate. Fourth ventricle is midline. Basal cisterns are patent.Bridges-white differentiation is maintained. Globes and orbits are unremarkable. Soft tissues about the skull base and scalp are unremarkable. Paranasal sinuses and mastoid air cells are clear. No calvarial fracture. IMPRESSION: * No acute intracranial findings. 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 Electronically signed by Addi Magdaleno 06-04-2025 11:41 AM Hip/Pelvis X-Ray 06/04/25 09:57 HISTORY: Fall with right hip pain. TECHNIQUE: Pelvis and right hip radiographs, 3 views. COMPARISON: Pelvis radiograph dated 06/15/2021. FINDINGS: Remote healed fracture deformity of the right superior and inferior pubic rami. No widening of the pubic symphysis or sacroiliac joints. Mildly displaced periprosthetic fracture of the right proximal femur in the subtrochanteric region. The right acetabular component is appropriately positioned and fixated with 2 cortical screws. Left hip arthroplasty without IMPRESSION: * Acute periprosthetic right proximal femur fracture in the subtrochanteric region. * Remote healed fracture deformities involving the right superior and inferior pubic rami. Electronically signed by Addi Magdaleno 06-04-2025 11:[address] 06/04/25 13:52 HISTORY: Right hip fracture. TECHNIQUE: CT of the right hip without contrast. Images are presented in axial, sagittal, and coronal reformats. COMPARISON: CT of the abdomen pelvis from the same day. FINDINGS: Right hip arthroplasty. Comminuted periprosthetic fractureInvolves the subtrochanteric region of the right proximal femur.The acetabular component appears well-positioned and fixated with 2 cortical screws. Remote healed fracture deformity of the right inferior pubic ramus. Morgan catheter in the urinary bladder. Mild colonic diverticulosis. No intra-abdominal fluid collection or hematoma. Soft tissues of the right hip and proximal thigh are unremarkable. IMPRESSION: * Mildly displaced acute periprosthetic fracture involving the subtrochanteric region of the right proximal femur. Electronically signed by Addi Magdaleno 06-04-2025 2:35 PM ECG Data Attestation: I personally reviewed and interpreted this ECG as follows: Rate (beats per minute): 86 Rhythm: + normal sinus ECG Intervals/blocks: + Normal QRS, + Normal [place] and + Normal QT-c ECG ST segments: + Normal ST segments [facility] Narrative 0950: The patient was evaluated in room B9. A complete history and physical exam was performed Cardiac monitoring: An order was placed for continuous cardiac monitoring. The monitor shows a rate of 100 with sinus rhythm interpreted by [facility] trauma alert activated. 1205: X-ray shows periprosthetic orthopedic fracture. Will discuss the case with on-call orthopedics Dr. Rodriguez who is patient at this time. 1352: Vital signs stable. Patient C-spine cleared. Labs are unremarkable chronic hyponatremia of 127. Lipase 105. Imaging is concerning for the periprosthetic fracture as well as acute pancreatitis. Discussed the case with on-call orthopedics Dr. Rodriguez who reviewed the patient's images and he states that the patient will most likely not need surgery for this type of fracture but does recommend a CT of the hip. He states he will be on consult and had the patient admitted to the medicine team. Impression & Plan Pancreatitis, Chronic hyponatremia, Closed right hip fracture Discharge Plan Visit Data Chief Complaint: Trauma Stated Complaint: FALL, HIP & THIGH PAIN ED Provider: Viktor Black Discharge Problem: Pancreatitis, Chronic hyponatremia, Closed right hip fracture Patient Disposition: Admitted As Inpatient Condition: Fair Forms Stand Alone Forms: [facility] Prescriptions Prescriptions: No Action clopidogrel 75 mg Tablet 75 mg PO QAM Qty: 0 nitroglycerin 0.4 mg Tablet, Sublingual 0.4 mg Sublingual DIRECTED PRN (Reason: Chest Pain) Qty: 0 Rx Instructions: PLACE ONE TABLET UNDER THE TONGUE EVERY 5 MINUTES FOR UP TO 3 DOSES OVER 15 MINUTES IF NEEDED FOR CHEST PAIN aspirin 81 mg Tablet,Delayed Release (Dr/Ec) 81 mg PO QAM omeprazole 20 mg capsule,delayed release(DR/EC) 20 mg PO Q OTHER DAY finasteride 5 mg tablet 5 mg PO QPM cholecalciferol (vitamin D3) [Vitamin D3] 50 mcg (2,000 unit) Capsule 50 mcg PO QAM Reyvow 50 mg tablet 50 mg PO DIRECTED MDD 1 dose in 24 hours PRN (Reason: Migraine Headache) Rx Instructions: take 1 tablet at onset of migraine metoprolol succinate 25 mg tablet extended release 24 hr 12.5 mg PO HS levetiracetam [Keppra] 500 mg tablet 500 mg PO QAM metoprolol succinate 25 mg tablet extended release 24 hr 25 mg PO QAM levetiracetam 500 mg tablet 1,000 mg PO HS amlodipine 5 mg tablet 5 mg PO UD Rx Instructions: 2.5mg QAM and 5mg QPM isosorbide mononitrate 30 mg Tablet Extended Release 24 Hr 90 mg PO QAM Rx Instructions: take 3 tablets by mouth in the morning thiamine HCl (vitamin B1) 100 mg Tablet 100 mg PO QAM Qty: 30 0RF Trelegy Ellipta 100-62.5-25 mcg blister with device 1 inh INHALATION QAM hydrocodone-acetaminophen 5-325 mg tablet 1 tab PO TID PRN (Reason: Pain) albuterol sulfate 90 mcg/actuation HFA aerosol inhaler 2 puff INHALATION Q6 PRN (Reason: wheezing or cough) duloxetine 30 mg capsule,delayed release(DR/EC) 30 mg PO AMPM ranolazine 500 mg tablet extended release 12 hr 500 mg PO AMHS albuterol sulfate 2.5 mg /3 mL (0.083 %) Solution For Nebulization 2.5 mg INHALATION Q4H PRN (Reason: as directed) ondansetron HCl 4 mg Tablet 4 mg PO Q6H PRN (Reason: Nausea) acetaminophen 500 mg Tablet 500 mg PO Q4 PRN (Reason: Pain) Referrals Referrals: Terry Resendez MD [Primary Care Provider] -
[2025-06-04 10:23] LABS: Hematocrit (blood only) 34.5 % (42.0-52.0); Hemoglobin 12.0 g/dl (14.0-18.0); Immature Granulocytes # (auto) 0.13 K/uL (0.01-0.20); Immature Granulocytes % (auto) 1.0 %; Mean Corpuscular Hemoglobin 32.3 pg (25.0-34.0); Mean Corpuscular Volume 93.0 fL (80.0-100.0); Platelet Count 265 K/uL (130-400); RDW Standard Deviation 41.4 fL (36.4-46.3); Red Blood Count 3.71 M/uL (4.70-6.10); White Blood Count 12.51 K/ul (4.8-10.8)
[2025-06-04 10:51] LABS: Alanine Aminotransferase 24 U/L (7-52); Albumin Level 3.9 gm/dl (3.4-5.0); Alkaline Phosphatase 69 U/L (34-104); Anion Gap 12 (3-11); Bilirubin,Total 0.7 mg/dl (0.2-1.0); Blood Urea Nitrogen 16 mg/dl (6-23); Calcium 9.5 mg/dl (8.6-10.3); Carbon Dioxide 25 mmol/L (21-32); Chloride 90 mmol/L (98-107); Creatine Kinase 118 U/L (30-223); Creatinine Clr Calc Pharmacy 77.3 ml/min; Glucose 109 mg/dl (70-99(Fasting)); Lipase 105 U/L (11-82); Magnesium 2.0 mg/dl (1.7-2.4); Sodium 127 mmol/L (136-145); Total Protein 7.5 gm/dl (6.0-8.3)
--- NOTE | 2025-06-04 11:14 | XRay Report ---
HISTORY: Shortness of breath. TECHNIQUE: Portable AP radiograph of the chest. COMPARISON: Chest radiograph dated 05/30/2025 FINDINGS: site monitor leads overlie the chest. No focal lung consolidation. No pneumothorax or pleural effusion. Normal heart size. Left-sided aortic arch. Midline trachea. Chronic deformity of the right distal clavicle. Included upper abdomen is unremarkable. Mildly elevated left hemidiaphragm. IMPRESSION: No acute cardiopulmonary findings. Electronically signed by Addi Magdaleno 06-04-2025 11:14 AM
[2025-06-04] MEDS: OPTIRAY 320 100ml IV ONE (11:16)
--- NOTE | 2025-06-04 11:16 | XRay Report ---
HISTORY: Fall with right hip pain. TECHNIQUE: Right femur, 3 views. COMPARISON: Right femur radiographs dated 06/15/2021. FINDINGS: Right hip arthroplasty. Acute mildly displaced periprosthetic fracture about the proximal femur in the subtrochanteric region. No additional fracture of the mid or distal femur. Atherosclerotic vascular calcification. IMPRESSION: Acute mildly displaced periprosthetic fracture of the proximal femur in the subtrochanteric region. Electronically signed by Addi Magdaleno 06-04-2025 11:15 AM
--- NOTE | 2025-06-04 11:19 | XRay Report ---
HISTORY: Fall with right hip pain. TECHNIQUE: Pelvis and right hip radiographs, 3 views. COMPARISON: Pelvis radiograph dated 06/15/2021. FINDINGS: Remote healed fracture deformity of the right superior and inferior pubic rami. No widening of the pubic symphysis or sacroiliac joints. Mildly displaced periprosthetic fracture of the right proximal femur in the subtrochanteric region. The right acetabular component is appropriately positioned and fixated with 2 cortical screws. Left hip arthroplasty without IMPRESSION: * Acute periprosthetic right proximal femur fracture in the subtrochanteric region. * Remote healed fracture deformities involving the right superior and inferior pubic rami. Electronically signed by Addi Magdaleno 06-04-2025 11:17 AM
[2025-06-04] MEDS: HYDROmorphone INJ 1 MG/ML SYRINGE IV STA ×2 (11:38→12:47)
[2025-06-04] MEDS: ONDANSETRON INJ 2 MG/ML 2 ML VIAL IV STA (11:38)
--- NOTE | 2025-06-04 11:41 | CT Scan Report ---
HISTORY: Fall with head injury. TECHNIQUE: CT of the head without contrast. Images are presented in axial, sagittal, and coronal reformats. COMPARISON: Head CT dated 06/12/2024. FINDINGS: No evidence of acute intracranial hemorrhage or abnormal extra-axial fluid collection. Large area of encephalomalacia involving the left frontal lobe may represent sequela of prior infarct. Ventricular caliber is appropriate. Fourth ventricle is midline. Basal cisterns are patent.Bridges-white differentiation is maintained. Globes and orbits are unremarkable. Soft tissues about the skull base and scalp are unremarkable. Paranasal sinuses and mastoid air cells are clear. No calvarial fracture. IMPRESSION: * No acute intracranial findings. 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 Electronically signed by Addi Magdaleno 06-04-2025 11:41 AM
[2025-06-04 11:45] LABS: Potassium 3.3 mmol/L (3.5-5.1)
--- NOTE | 2025-06-04 11:55 | CT Scan Report ---
HISTORY: Trauma with neck pain. TECHNIQUE: CT imaging of the cervical spine without IV contrast. Images are presented in axial, sagittal, coronal reformats. COMPARISON: None. FINDINGS: Reversal of cervical curvature.Cervical levoscoliosis. No significant listhesis.Vertebral body heights are preserved without compression deformity.No acute fractures identified. Multilevel degenerative disc disease is most pronounced and severe at C5-6 and C6-7. Posteriorly directed disc osteophyte complex mildly narrowing the central canal at C6-7. Multilevel neural foraminal stenosis is most pronounced and severe on the right at C3-4 and C4-5. No prevertebral edema or hematoma.Severe atherosclerotic plaque at the right carotid bifurcation. Endovascular stent in the right proximal internal carotid artery. Moderate to severe atherosclerotic calcification of the left carotid bifurcation. Included lungs are clear. IMPRESSION: * No acute cervical spine fractures identified. * Reversal of cervical curvature and cervical levoscoliosis. * Severe degenerative changes of the cervical spine with multilevel central canal and neuroforaminal stenosis. * Severe atherosclerotic plaque at the carotid bifurcations. Endovascular stent in the right proximal internal carotid artery. Consider correlation with carotid Doppler ultrasound for degree of carotid artery stenosis. ACT 112: Positive. There are findings on this exam that require communication between the performing entity and the patient following Patient Test Result Information Act ([place] ACT 112) guidelines. Electronically signed by Addi Magdaleno 06-04-2025 11:54 AM
[2025-06-04 11:57] LABS: INR 1.1 (0.9-1.1); Partial Thromboplastin Time 28 Seconds (21-31); Prothrombin Time 11.3 Seconds (9.0-12.0)
--- NOTE | 2025-06-04 12:00 | CT Scan Report ---
HISTORY: Fall with abdominal pain. TECHNIQUE: Helical CT imaging of the abdomen and pelvis was performed with contrast. Images are presented in axial, sagittal, and coronal reformats. COMPARISON: None. FINDINGS: Lung Bases/Inferior Mediastinum: Trace left pleural effusion. Mild atelectasis at the lung bases. 0.3 cm nodule in the right middle lobe on series 8 image 1.Coronary artery calcifications are present. Liver: Mild hepatic steatosis. Gallbladder: Unremarkable Spleen: Unremarkable Adrenals: Unremarkable Pancreas: Acute inflammation surrounding the pancreas concerning for acute pancreatitis. No pancreatic ductal dilation. No obvious pancreatic necrosis. Kidneys: Unremarkable Stomach/Bowel: Stomach and duodenum are unremarkable. Small bowel loops are normal in caliber. Normal caliber appendix. Colon is normal in caliber. Lymph nodes: Unremarkable Vasculature: Moderate atherosclerotic vascular disease. No abdominal aortic aneurysm. Pelvis: Streak artifact from bilateral hip arthroplasties limits evaluation of the pelvis. Urinary bladder is unremarkable as visualized. No obvious free pelvic fluid. Soft Tissues: Unremarkable Bones: Bilateral hip arthroplasties. Remote healed fracture deformity the right inferior and superior pubic rami. Periprosthetic fracture involving the subtrochanteric region of the right proximal femur is partially imaged. Partially fused sacroiliac joints. Lumbar facet arthrosis.Chronic L2 burst fracture with kyphoplasty changes. Retropulsion of the posterior wall contributes to moderate central canal stenosis at L1-2. IMPRESSION: * Acute pancreatitis. * Acuteperiprosthetic fracture involving the Sub trochanteric region of the right proximal femurs partially imaged. * 0.3 cm right middle lobe nodule on series 8 image 1. No routine follow-up is necessary per Fleischner Society criteria. If the patient is considered high risk for lung malignancy (i.e. history of smoking or malignancy), then follow-up chest CT can be performed in 12 months. * Numerous additional chronic and/or incidental findings as detailed above. ACT 112: Positive. There are findings on this exam that require communication between the performing entity and the patient following Patient Test Result Information Act ([place] ACT 112) guidelines. Electronically signed by Addi Magdaleno 06-04-2025 11:59 AM
[2025-06-04] MEDS: SODIUM CHLORIDE 0.9% 1,000 ML IV ONE (12:05)
--- NOTE | 2025-06-04 14:16 | History & Physical Report ---
Date of Service June 04, 2025 Assessment & Plan (1) Fall: (2) Closed right hip fracture: (3) Type 2 diabetes mellitus with hyperglycemia: (4) Alcohol use disorder, moderate, dependence: (5) Seizure disorder: (6) Hx of carotid artery stenosis: Plan 69-year-old male with a history of alcohol abuse, tobacco abuse, CAD with angina at rest and with exertion with a dissection at last attempted cardiac catheterization reportedly no longer Candidate, seizures unrelated to alcohol use well-controlled on Keppra for the last year, chronic hyponatremia with SIADH who presented after a fall which resulted in a hip fracture. He denies head strike/loss of consciousness which either led to his fall or due to his fall; however due to his inability to bear weight he reports he did fall asleep on the floor after falling. Fall, trauma Fall 1 day prior to admission suspect around 2 PM occurred in the setting of drinking alcohol. He denied syncope/presyncope, head strike, loss of consciousness however notes he could not stand due to hip pain and so fell asleep on the floor Continued to have pain after being assisted to bed, present to the ER 06/04 was found to have a periprosthetic hip fracture CTC-spine: No acute fracture/subluxation. Severe degenerative changes and m ultilevel central canal/neural for aminal stenosis is noted. CThead: No intracranial bleed/acute findings. Large area of encephalomalacia of the left frontal lobe stable likely sequelae of prior infarct. CTA/P: Acute pancreatitis. Acute periprosthetic fracture of the right proximal femur. 0.3 cm right middle lobe nodule not requiring follow-up per Fleischner criteria. As patient is a smoker could have 12-month chest CT follow-up. No solid organ injury is noted EKG: Normal sinus rhythm. Inverted T waves have replaced nonspecific T waves in inferior leads compared to prior. No acute territorial ST segment changes. Admitted following trauma alert. Will require tertiary survey 06/05 Periprosthetic fracture 09/25 fall Orthopedics consulted CThip: Mildly displaced acute periprosthetic fracture involving the subtrochanteric region of right proximal Significantly elevated surgical risk due to medical complexity and comorbidity including medically managed CAD with daily anginal symptoms at rest and with exertion. Unfortunately high morbidity mortality as well with nonop management. Nonweightbearing right lower extremity Multimodal pain control. Tylenol, hydromorphone 0.5-1.0 mg every 3 hours as needed for pain. If pursuing nonoperative management, can trial addition of muscle relaxer to help with spasm. CAD, daily angina at rest and w/ exertion, per cards not a cardiac cath/interventional candidate; hypertension History of cardiac cath /2016, attempted PCI of FIRE EQUIPMENT INSPECTOR of right coronary aborted due to small focal dissection in [address] [facility] cardiology. Records pending. At his last attempted PCI he had a dissection. Per discussion with script editor at that time was told cath should never be attempted due to his extremely high risk and he would need medical management moving forward. Additionally he is exceptionally high surgical risk due to his underlying CAD TTE 02/2024: LVEF 60 to 65%, grade 1 diastolic dysfunction, stable from prior study. Mild AR Metoprolol continued Ranolazine continued DAPT continued Isosorbide mononitrate 90 mg continued Amlodipine continued Cardiology note review 12/30/2024 with SUNNY Dinh: Noted to have CAD pilot station artery of pilot station heart with stable angina at that time. Complex coronary disease not amenable to PCI. Recommended to continue amlod ipine/metoprolol/Plavix/Imdur/aspirin. Started on Ranexa. Recommended to continue every 6 month follow-up. At time of the cardiology note had continued to endorse chest pain daily with both rest and exertion, generally last throughout the day varying in intensity and eventually resolving and sometimes associated with shortness of breath. Ranexa added as noted and continued on medical management as he was not a cath candidate. Also of note he was statin intolerant, and also intolerant of fenofibrate. He was noncompliant with Praluent History of seizures Reported grand mal seizure in the past, reportedly unrelated to alcohol use [facility] neurology records as noted in HPI Reports no seizures since his Keppra was increased about 1 year ago Seizure precautions Alcohol management as otherwise noted Alcohol abuse Patient reports he had 3 beers yesterday before falling, per his he generally drinks 810 beers per day. Has had some mild tremors and shakes in past, denies history of DTs. Denies alcohol withdrawal seizures although reports he has had other seizures worked up by neurology and stable on Keppra. Denies hallucinations. PAWSS 3, he recently was discharged after 3-day stay without severe withdrawal symptoms Will admit on antibiosis monitoring protocol CVA 2013/2016 with CVA resulting expressive aphasia, right hemiparesis, right foot drop/drag, and right arm contraction Per patient and family his right arm and right leg strength improved after 2017 although is still qualitatively weaker than his left and sometimes limits him. No recent change in strength prior to his fall Follows with Dr. Evans /neurology CT with large left frontal area of encephalomalacia likely related to his prior stroke Aspirin/Plavix continued Hyponatremia Recent workup consistent with SIADH. Multiple reasons for this including medications including Keppra. Additionally is at risk of solute depletion from beer Potomania Fluid restricted Trend BMP daily Ideally goal greater than 130 however patient reports he is chronically about [id number] as outpatient has not been able to get the level stable above this in the past If sodium less than 120 treat with hypertonic saline due to risk of seizures. This is not indicated at time of admit Given that this is at near his baseline will trend daily rather than every 4 hours. If dropping, increased frequency of BMP checks Type II DM -Reports now diet controlled last A1c within goal Daily BMP, if greater than 180 then add basal bolus with goal 1 101 COPD Chronic. Reports he has daily wheezing but this has not changed recently. Trelegy/formulary equivalent Scattered slight wheezing on admission. No cough or increased sputum production suggestive of acute exacerbation GERD PPI Tobacco abuse 1 pack/day Nicotine patch ordered Recent pancreatitis, clinically improved Lipase level 105, resolving Patient did recently recover from acute pancreatitis. CT likely with residual changes from this however he has continued to drink alcohol and is at risk of further flaring this. He reports that when he was drinking yesterday this does not cause increased pain, he is hungry and with a good appetite, and his meals yesterday did not cause him any discomfort. Clinically does not show signs of recurrent acute/chronic pancreatitis on admission DVT prophylaxis: Lovenox added 2/2 trauma with nonoperative management at increased risk of VTE. No signs of ICH, hemoglobin is stable 24 hours out from fall CODE STATUS: DNR/DNI Diet: Heart healthy, fluid restricted Disposition: Admit to telemetry given combination of trauma, seizure risk, hyponatremia, and acute fracture with history of alcohol dependence and chronic CAD with daily. History of Present Illness Primary Care Provider: Terry Resendez MD Patel is a 69-year-old male with a past medical history of alcohol abuse at risk of withdrawal, pancreatitis, type II DM, coronary artery disease, CVD, peptic ulcer disease who was discharged 06/02/2025 after an admission for moderate pancreatitis due to alcohol use and he was monitored for alcohol withdrawal with a PAWSS score of 3 and who did not show evidence of withdrawal over his 3-day admission who presents back to the ER for 06/04 as a trauma alert. He was going to get beer while watching difficult a.m. yesterday afternoon and does not remember what happened but members his helping him up. He was having pain in his right hip and right thigh and presented to the ER for further evaluation. His fall was at this point around 24 hours ago and fortunately CThead does not show any evidence of intracranial bleed. He did sustain a periprosthetic fracture. He is not on anticoagulation. Shaji reports that he fell. He was drinking 3 beers yesterday and was 2:30pm and fell. Remembers going down and did not hit his head. He immediately had pain in his R hip. Tried to stand but couldnt. Eventually fell asleep on the floor. Reports he did not pass out. 2 friends came and help lift him into the bed. He was unable to put any weight whatsoever on his R leg. Intermittently awake and asleep all night. Refused to go to the hospital initially, but pain didn't get better and couldn't bear weight so came to the hospital for evaluation. He reports he is not sure exactly why he fell, denies losing consciousness and did not have a seizure or syncopized just notes that it happened very fast and that he suddenly fell to the floor and then could not bear weight or stand so he fell asleep on the floor. He does not lose consciousness and has a result of his fall Reports his belly pain improved after hospitalization, was having some but not as much. NO pain at bedside. Denies pain with alcohol or meals. 'I just drank three beers.' History of seizures, last 1 year ago. Follows with [facility] Neuro. On Keppra. Started Keppra 2-3 years. 1 year ago increased dose and has done well since then. 1000mg HS, 500mg AM. He did take all morning meds before coming to the hospital Reports hx He has a neck stent He reports he has chest pain when going up stairs or with exertion. Has angina 'all the time' and most days. Rarely has angina at rest, but gets easy heaviness in his chest and chest pain when ambulating. Was started on ranolazine for this. Has not noticed any change with this. He denies any chest pain this morning or at time of admission. Per family Follows with Dr. Giraldo intervential cardiology at [facility]. Per last visit had an aortic dissection attempting a cath. Was told this should never be attempted for him again, and avoid surgery unless life threatening. Sodium i snormally ~127-129 for him at home. ON COPD tx with trelegy. Wheezing seems a little worse than normal today. No increased sputum production. No change in sputum color. Endorses slight dyspnea at his normal baseline, no increase. [facility] record review: Neurology note 05/02/2024. History of stroke, seizure, and migraines. Seizure disorder with nocturnal seizures, Keppra increased at that time 100 mg at bedtime/500 mg a.m. Accelerated hypertension with increased word-finding difficulty noted at that time. Cardiology note review 12/30/2024 with SUNNY Dinh: Noted to have CAD pilot station artery of pilot station heart with stable angina at that time. Complex coronary disease not amenable to PCI. Recommended to continue amlodipine/metoprolol/Plavix/Imdur/aspirin. Started on Ranexa. Recommended to continue every 6 month follow-up. At time of the cardiology note had continued to endorse chest pain daily with both rest and exertion, generally last throughout the day varying in intensity and eventually resolving and sometimes associated with shortness of breath. Ranexa added as noted and continued on medical management as he was not a cath candidate. Also of note he was statin intolerant, and also intolerant of fenofibrate. He was noncompliant with [facility], last note Terry Resendez 04/19/2025: COPD treated then up with prednisone and Trelegy prescribed. Type II DM A1c at goal. Chronic h yponatremia noted to likely contribute to dizziness and malaise. Notes above added to chart for obstruction Medical History: Reviewed Medications: Reviewed Surgical History: Reviewed Family history: Reviewed Allergies: Reviewed Social History: Menthol cigarettes 1ppd. ETOH use normally ~8-10 beers per day. 3 beers yesterday. Last drink yesterday ~2pm. DNR/DNI Allergies Allergy/AdvReac Type Severity Reaction Status Date / Time ciprofloxacin Allergy Severe hives Verified 05/30/25 17:36 simvastatin AdvReac Intermediate MUSCLE Verified 05/30/25 17:36 PAIN/WEAKNESS Xggahjo-DAQ-VnI Reductase AdvReac Intermediate MUSCLE Verified 05/30/25 17:36 Inhibitor PAIN/WEAKNESS [Nigxskt-Yui-Orn Reductase Inhibitor] Home Medications Medication Instructions Recorded Confirmed Type clopidogrel 75 mg tablet 75 mg PO QAM ##0 06/14/15 06/04/25 History nitroglycerin 0.4 mg sublingual 0.4 mg sublingual DIRECTED PRN 04/18/18 06/04/25 History tablet Chest Pain ##0 aspirin 81 mg tablet,delayed 81 mg PO QAM 10/02/18 06/04/25 History release cholecalciferol (vitamin D3) 50 50 mcg PO QAM 11/27/22 06/04/25 History mcg (2,000 unit) capsule (Vitamin D3) finasteride 5 mg tablet 5 mg PO QPM 11/27/22 06/04/25 History omeprazole 20 mg capsule,delayed 20 mg PO Q OTHER DAY 11/27/22 06/04/25 History release lasmiditan 50 mg tablet (Reyvow) 50 mg PO DIRECTED PRN Migraine 07/09/23 06/04/25 History Headache amlodipine 5 mg tablet 5 mg PO UD 06/12/24 06/04/25 History isosorbide mononitrate 30 mg 90 mg PO QAM 06/12/24 06/04/25 History tablet,extended release 24 hr levetiracetam 500 mg tablet 1,000 mg PO HS 06/12/24 06/04/25 History levetiracetam 500 mg tablet 500 mg PO QAM 06/12/24 06/04/25 History (Keppra) metoprolol succinate 25 mg 12.5 mg PO HS 06/12/24 06/04/25 History tablet,extended release 24 hr metoprolol succinate 25 mg 25 mg PO QAM 06/12/24 06/04/25 History tablet,extended release 24 hr thiamine HCl (vitamin B1) 100 mg 100 mg PO QAM #30 tabs 06/14/24 06/04/25 Rx tablet acetaminophen 500 mg tablet 500 mg PO Q4 PRN Pain 05/30/25 06/04/25 History albuterol sulfate 2.5 mg/3 mL 2.5 mg inhalation Q4H PRN as 05/30/25 06/04/25 His tory (0.083 %) solution for nebulization directed albuterol sulfate 90 mcg/actuation 2 puff inhalation Q6 PRN wheezing 05/30/25 06/04/25 History aerosol inhaler or cough duloxetine 30 mg capsule,delayed 30 mg PO AMPM 05/30/25 06/04/25 History release fluticasone fur. 100 mcg-umeclid 1 inh inhalation QAM 05/30/25 06/04/25 History 62.5 mcg-vilant 25 mcg inhalat.powder (Trelegy Ellipta) hydrocodone 5 mg-acetaminophen 325 1 tab PO TID PRN Pain 05/30/25 06/04/25 History mg tablet ondansetron HCl 4 mg tablet 4 mg PO Q6H PRN Nausea 05/30/25 06/04/25 History ranolazine 500 mg tablet,extended 500 mg PO AMHS 05/30/25 06/04/25 History release,12 hr Past Med/Surg History Problem List (Updated 06/04/25 @ 15:56 by Johnnie Pop MD) Closed right hip fracture Fall Chronic hyponatremia Type 2 diabetes mellitus with hyperglycemia Alcohol use disorder, moderate, dependence Epigastric abdominal pain (Acute) Acute pancreatitis (Acute) Pancreatitis Headache (Acute) Weakness (Acute) Acute hyponatremia (Acute) Chest pain (Acute) Uncontrolled hypertension Demand ischemia Elevated troponin Vasovagal syncope Chest pain (Acute) Seizure disorder NSTEMI (non-ST elevated myocardial infarction) Syncope NSTEMI (non-ST elevated myocardial infarction) History of cardioembolic cerebrovascular accident (CVA) Previous back surgery (Chronic) Fracture of ankle, trimalleolar, right, open (Acute) Thoracic compression fracture (Acute) CAD (coronary artery disease) "S/p attempted PCI of a FIRE EQUIPMENT INSPECTOR of right coronary artery, procedure aborted due to small localized focal dissection of aortic root in Jun 2017" 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 Chen" Obesity (BMI 30-39.9) (Chronic) Medical History Hx of carotid artery stenosis (2012) "s/p EDITH stent placement 08/23/2013; Dr. Chen" Expressive aphasia due to hx cva Hx of fracture mulitple, due to falls thoracic compression, right iliac wing, right and left inferior and superior pubic ramus, left ankle, sacral Osteoarthritis Hx of non-ST elevation myocardial infarction (NSTEMI) cardiac cath x3 2009 - [facility] st[facility]- [facility], no mi, no stents 2017 - attempted 3rd, had partial aortic dissection, [facility] [place], no surgery - follows with cardio dr. larson (~ 2months) Chronic pain CAD (coronary artery disease) "S/p attempted PCI of a FIRE EQUIPMENT INSPECTOR of right coronary artery, procedure aborted due to small localized focal dissection of aortic root in Jun 2017" Dyspnea on exertion Hx of falling Hx of urethral stricture (12/2023) hx green light procedure, no issues since Hx of colonic polyps History of difficult intubation per , alexy, "they told me he is hard to intubate because it is hard to get his mouth open." unable to elaborate on what doctors told her this Seizure disorder last seizure approx. 2 years ago "grand mal" - controlled on meds - follows with dr. sharma History of CVA in adulthood (2016) 2013 and 2016- has expressiva aphashia, no movement of right side, drags right foot when ambulating, right arm is contracted, follows with neuro Dr. Sharma at [facility] Bacteremia hx - after pelvic fracture - had picc line abx at home Hyponatremia Hypertension History of aortic dissection (2016) during cardiac cath 2016, [facility] Tobacco use disorder Alcohol use disorder Left thalamic infarction "July 2017" Diabetes mellitus, type II no longer takes metformin COPD (chronic obstructive pulmonary disease) sob with exertion Statin intolerance ASCVD (arteriosclerotic cardiovascular disease) Classic migraine gets weekly Dyslipidemia GERD (gastroesophageal reflux disease) Depression Surgical History Hx of right cataract extraction (08/09/24) History of bronchoscopy History of bladder surgery (12/2023) "green light procedure" - [place], dr. pearson, no longer has to self-cath Hx of colonoscopy with polypectomy History of open reduction and internal fixation (ORIF) procedure left ankle, due to fall, has screws and plates Hx of cardiac catheterization (2016) x3 2010 - [facility] st[facility] 2016- [facility], no mi, no stents 2017 - attempted 3rd, had partial aortic dissection, [facility] [place], no surgery - follows with cardio dr. larson (~ 2months) History of carotid endarterectomy (2012) [facility], right carotid stent, had stroke Hx of kyphoplasty (2015) History of repair of right rotator cuff Hx of bilateral hip replacements Hx of tonsillectomy Family History Son Spherocytosis Other Heart disease Social History Smoking Status: Current every day smoker Tobacco Type: Cigarettes Cigarettes Per Day: 1/2 pack; Second Hand Exposure: No; Do You Dip or Chew Tobacco: No; Hx Alcohol Use: Yes Alcohol type: beer Alcohol Intake Frequency: 4 or More x per/Week Alcohol Intake Frequency Comment: 5-6 beers/day Hx Substance Use: No Preferred Language: Cuban Communication Ability: Effective Communication Ability Comment: aphasia/previous cva Mds Manager Required: No Beliefs That Will Affect Care: None marital status: Current Living Situation: Spouse Current Living Situation Comment: How many Children do You have: 3 Feels Safe at Home: Yes Assistive Devices: None Physical Exam Physical Exam: General: A&Ox3. NAD. Cooperative. HEENT: Atraumatic, normocephalic. Pupils equal and reactive to light. Vision and hearing grossly intact. Poor dentition, several missing teeth. No midline cervical neck tenderness Pulm: CTAB A&P. Scattered slight expiratory rales without wheezes/rhonchi. Symmetrical chest rise. No increased work of breathing. No respiratory distress. Cardiac: RRR, soft sm. Radial pulses intact and symmetrical. Abdominal: Nontender, nondistended, soft. BS present. Extremities: Very tender to palpation overlying the lateral and anterior right hip. Resting with a slightly hip flexed position. Ankle dorsiflexion/plantarflexion are 5/5 bilaterally although qualitatively weaker in the right compared to the left. Sensation of soft touch is intact in the feet and the lower leg bilaterally. PT pulses intact in the lower extremities bilaterally. Psychopaedic Nurse strength and elbow flexion 5/5 bilaterally, qualitatively slightly weaker on the right compared to the left. Results & Data Results & Data Vital Signs (Past 12 Hours) Vital Signs Temp Pulse Pulse Resp BP BP Pulse Ox 06/04/25 13:30 136/84 06/04/25 13:27 93 H 22 93 06/04/25 13:00 98 H 20 94 06/04/25 13:00 153/88 H 06/04/25 12:30 96 H 24 94 06/04/25 12:00 90 17 94 06/04/25 12:00 153/82 H 06/04/25 12:00 93 H 22 153/82 H 94 06/04/25 11:57 94 06/04/25 11:53 36.7 C 91 H 20 163/80 H 96 06/04/25 11:51 163/80 H 06/04/25 11:51 101 H 18 06/04/25 11:45 99 H 23 97 06/04/25 11:00 107/68 06/04/25 11:00 96 H 20 107/68 95 06/04/25 10:51 92 H 22 95 06/04/25 10:40 165/93 H 06/04/25 10:39 100 H 25 H 94 06/04/25 10:25 95 06/04/25 10:17 89 06/04/25 10:12 87 21 95 06/04/25 09:52 36.7 C 96 H 20 178/87 H 98 O2 Del Method O2 Flow Rate 06/04/25 13:30 06/04/25 13:27 06/04/25 13:00 06/04/25 13:00 06/04/25 12:30 06/04/25 12:00 06/04/25 12:00 06/04/25 12:00 Room Air 06/04/25 11:57 Room Air 06/04/25 11:53 Room Air 95 06/04/25 11:51 06/04/25 11:51 06/04/25 11:45 06/04/25 11:00 06/04/25 11:00 Room Air 06/04/25 10:51 06/04/25 10:40 06/04/25 10:39 06/04/25 10:25 Room Air 06/04/25 10:17 06/04/25 10:12 06/04/25 09:52 Room Air PG Care Time/CCT Total # of Minutes Spent Total Time Spent with Patient: Total time spent is greater than 50% in coordination of care (as documented) at patient's floor/unit and/or counseling patient: Coding Level of Care Code 33025 INT INP/OBS CARE 375MIN Diagnoses Fall W19.XXXA Closed right hip fracture S72.001A Type 2 diabetes mellitus with hyperglycemia, without long-term current use of insulin E11.65 Diabetes mellitus terminal operations manager insulin use: without terminal operations manager use Alcohol use disorder, moderate, dependence F10.20 Seizure disorder G40.909 Hx of carotid artery stenosis Z86.79 (3) Type 2 diabetes mellitus with hyperglycemia Diabetes mellitus terminal operations manager insulin use: without terminal operations manager use Qualified Code(s): E11.65 - Type 2 diabetes mellitus with hyperglycemia
[2025-06-04] MEDS: SODIUM CHLORIDE 0.9% 1,000 ML IV SCH (14:21)
--- NOTE | 2025-06-04 14:35 | CT Scan Report ---
HISTORY: Right hip fracture. TECHNIQUE: CT of the right hip without contrast. Images are presented in axial, sagittal, and coronal reformats. COMPARISON: CT of the abdomen pelvis from the same day. FINDINGS: Right hip arthroplasty. Comminuted periprosthetic fractureInvolves the subtrochanteric region of the right proximal femur.The acetabular component appears well-positioned and fixated with 2 cortical screws. Remote healed fracture deformity of the right inferior pubic ramus. Morgan catheter in the urinary bladder. Mild colonic diverticulosis. No intra-abdominal fluid collection or hematoma. Soft tissues of the right hip and proximal thigh are unremarkable. IMPRESSION: * Mildly displaced acute periprosthetic fracture involving the subtrochanteric region of the right proximal femur. Electronically signed by Addi Magdaleno 06-04-2025 2:35 PM
[2025-06-04] MEDS ORDERED: MAGNESIUM HYDROXIDE SUSP 30 ML UDC PO PRN ×2 (15:15→16:17)
[2025-06-04] MEDS ORDERED: NALOXONE HCL 0.4 MG/1 ML VIAL/CARP IV PRN (15:15)
[2025-06-04] MEDS ORDERED: ACETAMINOPHEN 325 MG TAB PO PRN (15:15)
[2025-06-04] MEDS: HYDROmorphone INJ 1 MG/ML SYRINGE IV PRN (15:35)
[2025-06-04] MEDS ORDERED: POLYETHYLENE (MIRALAX) 17 GM PACK PO PRN (16:17)
[2025-06-04] MEDS ORDERED: ENOXAPARIN INJ 40 MG/0.4 ML SYR SQ SCH (16:30)
[2025-06-04] MEDS: HEPARIN SOD 5,000 UNIT/0.5 ML VIAL SQ STA (16:53)
[2025-06-04] MEDS ORDERED: LORazepam Inj 2 MG in SYRINGE 1 ML IV PRN (18:34)
[2025-06-04] MEDS ORDERED: ALBUTEROL HFA 8 GM INHALER INH PRN (18:34)
[2025-06-04] MEDS ORDERED: NITROGLYCERIN SL 0.4 MG/TAB TAB SL PRN (18:34)
[2025-06-04] MEDS ORDERED: ONDANSETRON 4 MG OD TAB PO PRN (18:55)
--- NOTE | 2025-06-04 19:44 | Electrocardiogram Report ---
Test Reason : Blood Pressure : */* mmHG Vent. Rate : 86 BPM Atrial Rate : 86 BPM P-R Int : 150 ms QRS Dur : 96 ms QT Int : 386 ms P-R-T Axes : -29 -12 -32 degrees QTcB Int : 461 ms Normal sinus rhythm Possible Inferior infarct (cited on or before 30-May-2025) Nonspecific ST abnormality Abnormal ECG When compared with ECG of 30-May-2025 14:29, Questionable change in initial forces of Inferior leads Inverted T waves have replaced nonspecific T wave abnormality in Inferior leads Nonspecific T wave abnormality no longer evident in Lateral leads Confirmed by Josias Rodriguez ([id number]) on 06/04/2025 7:44:39 PM Referred By: REFERRED SELF Confirmed By: Josias Rodriguez
[2025-06-04] MEDS: NICOTINE 21 MG/24 HR TDSY TD SCH (21:00)
[2025-06-04] MEDS: FINASTERIDE 5 MG TAB PO SCH (21:01)
[2025-06-04] MEDS: METOPROLOL SUCC 25MG EXT REL TAB PO SCH (21:02)
[2025-06-04] MEDS: levETIRAcetam 500 MG TAB PO SCH (21:02)
[2025-06-04] MEDS: RANOLAZINE 500 MG ER TAB PO SCH (21:03)
[2025-06-05] MEDS: CHOLECALCIFEROL 25 MCG (1000 UNITS) TAB PO SCH (07:55)
[2025-06-05] MEDS: ISOSORBIDE MONO EXTENDED REL 30 MG TABCR PO SCH (07:55)
[2025-06-05] MEDS: ASPIRIN 81 MG ECTAB PO SCH (07:55)
[2025-06-05] MEDS: FLUTICASONE FUROATE 100MCG 14 PUFFS/INHALER INH SCH (07:56)
[2025-06-05] MEDS: METOPROLOL SUCC 25MG EXT REL TAB PO SCH (07:56)
[2025-06-05] MEDS: levETIRAcetam 500 MG TAB PO SCH (07:56)
[2025-06-05] MEDS: THIAMINE HCL 100 MG TAB PO SCH (07:58)
[2025-06-05] MEDS: UMECLIDINIUM/VILANTEROL 62.5/25MCG 7 PUFFS/INHALER INH SCH (07:59)
[2025-06-05] MEDS: ENOXAPARIN INJ 40 MG/0.4 ML SYR SQ SCH (08:09)
[2025-06-05] MEDS: REMOVE NICODERM PATCH SCH (08:10)
[2025-06-05] MEDS: CLOPIDOGREL BISULFATE 75 MG TAB PO SCH (08:10)
[2025-06-05] MEDS ORDERED: THIAMINE HCL 100 MG TAB PO SCH (09:00)
[2025-06-05] MEDS ORDERED: NON-FORMULARY MEDICATION (Fluticasone-Umeclidin-Vilanter [Trelegy Ellipta] 100-62.5-25 mcg INH SCH (09:00)
[2025-06-05] MEDS: SODIUM CHLORIDE 0.9% 250 ML IV ONE (09:09)
[2025-06-05] MEDS: POTASSIUM CHLORIDE CRTAB 20 MEQ TABCR PO STA (09:16)
--- NOTE | 2025-06-05 09:57 | Orthopedic Consultation ---
Date of Service June 05, 2025 Assessment & Plan (1) Basilia-prosthetic subtrochanteric femur fracture: * Case/imaging reviewed and discussed with Dr Benavidez * Medically complex patient, not ideal surgical candidate * May benefit from cable fixation pending ambulation * Recommend trial of ambulation/PWB today with PT to attempt transfer, get to chair, etc * If unable to ambulate will need further discussion of possible OR * Weight bearing status: PWB RLE * NPO midnight for possible OR * Please hold Xarelto. Lovenox ok today, but please hold morning dose 06/06 * Daily treatment: Physical Therapy/ Occupational Therapy per protocol * Pain control * Disposition: TBD * Remainder care per primary team * Will continue to follow and update plan as available (2) Closed right hip fracture: History of Present Illness Reason for Consultation: Right hip pain Requesting Physician: . Attending Physician: Ebenezer Henson MD .Patient is a 69 y/o male with right hip pain. PMH including alcohol abuse, tobacco abuse, CAD with angina at rest and with exertion with a dissection at last attempted cardiac catheterization reportedly no longer Candidate, seizures unrelated to alcohol use well-controlled on Keppra for the last year, chronic hyponatremia with SIADH. H/o right KAVEH with Dr Benavidez approximately 2007 but has not been seen in some time. Presents to hospital with right hip pain after a fall this past weekend. Per reports patient fell while under the influence injuring his right hip and was unable to ambulate after. Brought to ED for evaluation. Current workup including XR and CT right hip demonstrating periprosthetic proximal femur fracture. Admitted to hospital medicine team. Orthopedics consulted for management recommendations. At time of exam patient sitting comfortably in bed, no acute distress. Reports pain of the right hip/thigh that is mild at rest but increases with attempted movement of the right leg or ambulation. Reports RLE tingling per his baseline. Denies hip or thigh pain prior to this injury. Allergies Allergy/AdvReac Type Severity Reaction Status Date / Time ciprofloxacin Allergy Severe hives Verified 05/30/25 17:36 simvastatin AdvReac Intermediate MUSCLE Verified 05/30/25 17:36 PAIN/WEAKNESS Vfjboid-JCR-OkO Reductase AdvReac Intermediate MUSCLE Verified 05/30/25 17:36 Inhibitor PAIN/WEAKNESS [Aaoeodz-Usl-Usb Reductase Inhibitor] Home Medications Medication Instructions Recorded Confirmed Type clopidogrel 75 mg tablet 75 mg PO QAM ##0 06/14/15 06/04/25 History nitroglycerin 0.4 mg sublingual 0.4 mg sublingual DIRECTED PRN 04/18/18 06/04/25 History tablet Chest Pain ##0 aspirin 81 mg tablet,delayed 81 mg PO QAM 10/02/18 06/04/25 History release cholecalciferol (vitamin D3) 50 50 mcg PO QAM 11/27/22 06/04/25 History mcg (2,000 unit) capsule (Vitamin D3) finasteride 5 mg tablet 5 mg PO QPM 11/27/22 06/04/25 History omeprazole 20 mg capsule,delayed 20 mg PO Q OTHER DAY 11/27/22 06/04/25 History release lasmiditan 50 mg tablet (Reyvow) 50 mg PO DIRECTED PRN Migraine 07/09/23 06/04/25 History Headache amlodipine 5 mg tablet 5 mg PO UD 06/12/24 06/04/25 History isosorbide mononitrate 30 mg 90 mg PO QAM 06/12/24 06/04/25 History tablet,extended release 24 hr levetiracetam 500 mg tablet 1,000 mg PO HS 06/12/24 06/04/25 History levetiracetam 500 mg tablet 500 mg PO QAM 06/12/24 06/04/25 History (Keppra) metoprolol succinate 25 mg 12.5 mg PO HS 06/12/24 06/04/25 History tablet,extended release 24 hr metoprolol succinate 25 mg 25 mg PO QAM 06/12/24 06/04/25 History tablet,extended release 24 hr thiamine HCl (vitamin B1) 100 mg 100 mg PO QAM #30 tabs 06/14/24 06/04/25 Rx tablet acetaminophen 500 mg tablet 500 mg PO Q4 PRN Pain 05/30/25 06/04/25 History albuterol sulfate 2.5 mg/3 mL 2.5 mg inhalation Q4H PRN as 05/30/25 06/04/25 History (0.083 %) solution for nebulization directed albuterol sulfate 90 mcg/actuation 2 puff inhalation Q6 PRN wheezing 05/30/25 06/04/25 History aerosol inhaler or cough duloxetine 30 mg capsule,delayed 30 mg PO AMPM 05/30/25 06/04/25 History release fluticasone fur. 100 mcg-umeclid 1 inh inhalation QAM 05/30/25 06/04/25 History 62.5 mcg-vilant 25 mcg inhalat.powder (Trelegy Ellipta) hydrocodone 5 mg-acetaminophen 325 1 tab PO TID PRN Pain 05/30/25 06/04/25 History mg tablet ondansetron HCl 4 mg tablet 4 mg PO Q6H PRN Nausea 05/30/25 06/04/25 History ranolazine 500 mg tablet,extended 500 mg PO AMHS 05/30/25 06/04/25 History release,12 hr Past Med/Surg History Problem List (Updated 06/05/25 @ 10:01 by Luis Felipe Pratt PA-C) Basilia-prosthetic subtrochanteric femur fracture Closed right hip fracture (Acute) Fall Chronic hyponatremia (Acute) Type 2 diabetes mellitus with hyperglycemia Alcohol use disorder, moderate, dependence Epigastric abdominal pain (Acute) Acute pancreatitis (Acute) Pancreatitis (Acute) Headache (Acute) Weakness (Acute) Acute hyponatremia (Acute) Chest pain (Acute) Uncontrolled hypertension Demand ischemia Elevated troponin Vasovagal syncope Chest pain (Acute) Seizure disorder NSTEMI (non-ST elevated myocardial infarction) Syncope NSTEMI (non-ST elevated myocardial infarction) History of cardioembolic cerebrovascular accident (CVA) Previous back surgery (Chronic) Fracture of ankle, trimalleolar, right, open (Acute) Thoracic compression fracture (Acute) CAD (coronary artery disease) "S/p attempted PCI of a LIVING COACH of right coronary artery, procedure aborted due to small localized focal dissection of aortic root in Jun 2017" 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 Chen" Obesity (BMI 30-39.9) (Chronic) Medical History Hx of carotid artery stenosis (2012) "s/p EDITH stent placement 08/23/2013; Dr. Chen" Expressive aphasia due to hx cva Hx of fracture mulitple, due to falls thoracic compression, right iliac wing, right and left inferior and superior pubic ramus, left ankle, sacral Osteoarthritis Hx of non-ST elevation myocardial infarction (NSTEMI) cardiac cath x3 2009 - [facility] - [facility] -no stents 2016- [facility], no mi, no stents 2017 - attempted 3rd, had partial aortic dissection, s at [facility], surgery - follows with cardio dr. larson (~ 2months) Chronic pain CAD (coronary artery disease) "S/p attempted PCI of a LIVING COACH of right coronary artery, procedure aborted due to small localized focal dissection of aortic root in Jun 2017" Dyspnea on exertion Hx of falling Hx of urethral stricture (12/2023) hx green light procedure, no issues since Hx of colonic polyps History of difficult intubation per , alexy, "they told me he is hard to intubate because it is hard to get his mouth open." unable to elaborate on what doctors told her this Seizure disorder last seizure approx. 2 years ago "grand mal" - controlled on meds - follows with dr. sharma History of CVA in adulthood (2016) 2013 and 2016- has expressiva aphashia, no movement of right side, drags right foot when ambulating, right arm is contracted, follows with neuro Dr. Sharma at [facility] Bacteremia hx - after pelvic fracture - had picc line abx at home Hyponatremia Hypertension History of aortic dissection (2016) during cardiac cath 2016, [facility] Tobacco use disorder Alcohol use disorder Left thalamic infarction "July 2017" Diabetes mellitus, type II no longer takes metformin COPD (chronic obstructive pulmonary disease) sob with exertion Statin intolerance ASCVD (arteriosclerotic cardiovascular disease) Classic migraine gets weekly Dyslipidemia GERD (gastroesophageal reflux disease) Depression Surgical History Hx of right cataract extraction (08/09/24) History of bronchoscopy History of bladder surgery (12/2023) "green light procedure" - dr. michel lees, no longer has to self-cath Hx of colonoscopy with polypectomy History of open reduction and internal fixation (ORIF) procedure left ankle, due to fall, has screws and plates Hx of cardiac catheterization (2017) x3 2009 - [facility] - [facility] -no stents 2016- [facility], no mi, no stents 2017 - attempted 3rd, had partial aortic dissection, [facility] at [place], no surgery - follows with cardio dr. larson (~ 2months) History of carotid endarterectomy (2013) [facility], right carotid stent, had stroke Hx of kyphoplasty (2016) History of repair of right rotator cuff Hx of bilateral hip replacements Hx of tonsillectomy Family History Son Spherocytosis Other Heart disease Social History Smoking Status: Current every day smoker Tobacco Type: Cigarettes Cigarettes Per Day: 1/2 pack; Second Hand Exposure: No; Do You Dip or Chew Tobacco: No; Tobacco Cessation Education Requested by Patient: No Hx Alcohol Use: Yes Alcohol type: beer Alcohol Intake Frequency: 4 or More x per/Week Alcohol Intake Frequency Comment: 5-6 beers/day Hx Substance Use: No Preferred Language: Bahraini Communication Ability: Effective Communication Ability Comment: aphasia/previous cva Shaper Setter Required: No Beliefs That Will Affect Care: None marital status: Current Living Situation: Spouse Current Living Situation Comment: How many Children do You have: 3 Other Information That Helps Us Care for You: No Feels Safe at Home: Yes Safety Concerns: Feels Safe At This Time Assistive Devices: None Review of Systems All systems reviewed & are unremarkable except as noted in HPI & below. Physical Exam . * General: Alert and oriented, no acute distress * Constitutional: well-developed, well-nourished. * Respiratory: Normal respiratory effort, no distress * Gastrointestinal: No tenderness to palpation, no rigidity or guarding. * Skin: No rash or lesion. * Neurologic: Grossly normal * Musculoskeletal: Right hip with well healed surgical incision, no skin breakdown or dehiscence. Otherwise no deformity or overlying skin change to RLE. Mild TTP proximal thigh/anterior hip region. Otherwise no specific tenderness of the right lower extremity. Pain with log roll, Limited AROM hip flexion due to pain. AROM knee flexion/extension intact. Sensation intact plantar/dorsal foot. Brisk capillary refill. Results & Data Results & Data Laboratory Results . 06/04/25 06/04/25 10:59 09:58 WBC 12.51 H RBC 3.71 L Hgb 12.0 L Hct 34.5 L MCV 93.0 MCH 32.3 MCHC 34.8 RDW Std Deviation 41.4 RDW Coeff of Keny 12.1 Plt Count 265 MPV 8.9 L Immature Gran % (Auto) 1.0 Neut % (Auto) 79.0 Lymph % (Auto) 10.2 [place] % (Auto) 9.0 Eos % (Auto) 0.5 Baso % (Auto) 0.3 Neut # (Auto) 9.88 H Lymph # (Auto) 1.27 [place] # (Auto) 1.13 H Eos # (Auto) 0.06 Baso # (Auto) 0.04 Immature Gran # (Auto) 0.13 PT 11.3 Cancelled INR 1.1 Cancelled APTT 28 Cancelled PTT Ratio 1.0 Cancelled Sodium 127 L Potassium 3.3 L TNP Chloride 90 L Carbon Dioxide 25 Anion Gap 12 H BUN 16 Creatinine 1.08 Est Cr Clr Drug Dosing 77.3 eGFR 73.82 BUN/Creatinine Ratio 14.8 Glucose 109 H Calcium 9.5 Magnesium 2.0 Total Bilirubin 0.7 Direct Bilirubin 0.3 H TNP AST 27 TNP ALT 24 Alkaline Phosphatase 69 Total Creatine Kinase 118 Troponin I High Sens 9.2 Total Protein 7.5 Albumin 3.9 Lipase 105 H Diagnostic Findings . Abdomen/Pelvis CT 06/04/25 09:57 HISTORY: Fall with abdominal pain. TECHNIQUE: Helical CT imaging of the abdomen and pelvis was performed with contrast. Images are presented in axial, sagittal, and coronal reformats. COMPARISON: None. FINDINGS: Lung Bases/Inferior Mediastinum: Trace left pleural effusion. Mild atelectasis at the lung bases. 0.3 cm nodule in the right middle lobe on series 8 image 1.Coronary artery calcifications are present. Liver: Mild hepatic steatosis. Gallbladder: Unremarkable Spleen: Unremarkable Adrenals: Unremarkable Pancreas: Acute inflammation surrounding the pancreas concerning for acute pancreatitis. No pancreatic ductal dilation. No obvious pancreatic necrosis. Kidneys: Unremarkable Stomach/Bowel: Stomach and duodenum are unremarkable. Small bowel loops are normal in caliber. Normal caliber appendix. Colon is normal in caliber. Lymph nodes: Unremarkable Vasculature: Moderate atherosclerotic vascular disease. No abdominal aortic aneurysm. Pelvis: Streak artifact from bilateral hip arthroplasties limits evaluation of the pelvis. Urinary bladder is unremarkable as visualized. No obvious free pelvic fluid. Soft Tissues: Unremarkable Bones: Bilateral hip arthroplasties. Remote healed fracture deformity the right inferior and superior pubic rami. Periprosthetic fracture involving the subtrochanteric region of the right proximal femur is partially imaged. Partially fused sacroiliac joints. Lumbar facet arthrosis.Chronic L2 burst fracture with kyphoplasty changes. Retropulsion of the posterior wall contributes to moderate central canal stenosis at L1-2. IMPRESSION: * Acute pancreatitis. * Acuteperiprosthetic fracture involving the Sub trochanteric region of the right proximal femurs partially imaged. * 0.3 cm right middle lobe nodule on series 8 image 1. No routine follow-up is necessary per Fleischner Society criteria. If the patient is considered high risk for lung malignancy (i.e. history of smoking or malignancy), then follow-up chest CT can be performed in 12 months. * Numerous additional chronic and/or incidental findings as detailed above. ACT 112: Positive. There are findings on this exam that require communication between the performing entity and the patient following Patient Test Result Information Act ([place] ACT 112) guidelines. Electronically signed by Addi Magdaleno 06-04-2025 11:[address] 06/04/25 09:57 HISTORY: Trauma with neck pain. TECHNIQUE: CT imaging of the cervical spine without IV contrast. Images are presented in axial, sagittal, coronal reformats. COMPARISON: None. FINDINGS: Reversal of cervical curvature.Cervical levoscoliosis. No significant listhesis.Vertebral body heights are preserved without compression deformity.No acute fractures identified. Multilevel degenerative disc disease is most pronounced and severe at C5-6 and C6-7. Posteriorly directed disc osteophyte complex mildly narrowing the central canal at C6-7. Multilevel neural foraminal stenosis is most pronounced and severe on the right at C3-4 and C4-5. No prevertebral edema or hematoma.Severe atherosclerotic plaque at the right carotid bifurcation. Endovascular stent in the right proximal internal carotid artery. Moderate to severe atherosclerotic calcification of the left carotid bifurcation. Included lungs are clear. IMPRESSION: * No acute cervical spine fractures identified. * Reversal of cervical curvature and cervical levoscoliosis. * Severe degenerative changes of the cervical spine with multilevel central canal and neuroforaminal stenosis. * Severe atherosclerotic plaque at the carotid bifurcations. Endovascular stent in the right proximal internal carotid artery. Consider correlation with carotid Doppler ultrasound for degree of carotid artery stenosis. ACT 112: Positive. There are findings on this exam that require communication between the performing entity and the patient following Patient Test Result Information Act ([place] ACT 112) guidelines. Electronically signed by Addi Magdaleno 06-04-2025 11:54 AM Chest X-Ray 06/04/25 09:57 HISTORY: Shortness of breath. TECHNIQUE: Portable AP radiograph of the chest. COMPARISON: Chest radiograph dated 05/30/2025 FINDINGS: vehicle monitor technician leads overlie the chest. No focal lung consolidation. No pneumothorax or pleural effusion. Normal heart size. Left-sided aortic arch. Midline trachea. Chronic deformity of the right distal clavicle. Included upper abdomen is unremarkable. Mildly elevated left hemidiaphragm. IMPRESSION: No acute cardiopulmonary findings. Electronically signed by Addi Magdaleno 06-04-2025 11:14 AM Femur X-Ray 06/04/25 09:57 HISTORY: Fall with right hip pain. TECHNIQUE: Right femur, 3 views. COMPARISON: Right femur radiographs dated 06/15/2021. FINDINGS: Right hip arthroplasty. Acute mildly displaced periprosthetic fracture about the proximal femur in the subtrochanteric region. No additional fracture of the mid or distal femur. Atherosclerotic vascular calcification. IMPRESSION: Acute mildly displaced periprosthetic fracture of the proximal femur in the subtrochanteric region. Electronically signed by Addi Magdaleno 06-04-2025 11:[address] 06/04/25 09:57 HISTORY: Fall with head injury. TECHNIQUE: CT of the head without contrast. Images are presented in axial, sagittal, and coronal reformats. COMPARISON: Head CT dated 06/12/2024. FINDINGS: No evidence of acute intracranial hemorrhage or abnormal extra-axial fluid collection. Large area of encephalomalacia involving the left frontal lobe may represent sequela of prior infarct. Ventricular caliber is appropriate. Fourth ventricle is midline. Basal cisterns are patent.Bridges-white differentiation is maintained. Globes and orbits are unremarkable. Soft tissues about the skull base and scalp are unremarkable. Paranasal sinuses and mastoid air cells are clear. No calvarial fracture. IMPRESSION: * No acute intracranial findings. 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 Electronically signed by Addi Magdaleno 06-04-2025 11:41 AM Hip/Pelvis X-Ray 06/04/25 09:57 HISTORY: Fall with right hip pain. TECHNIQUE: Pelvis and right hip radiographs, 3 views. COMPARISON: Pelvis radiograph dated 06/15/2021. FINDINGS: Remote healed fracture deformity of the right superior and inferior pubic rami. No widening of the pubic symphysis or sacroiliac joints. Mildly displaced periprosthetic fracture of the right proximal femur in the subtrochanteric region. The right acetabular component is appropriately positioned and fixated with 2 cortical screws. Left hip arthroplasty without IMPRESSION: * Acute periprosthetic right proximal femur fracture in the subtrochanteric region. * Remote healed fracture deformities involving the right superior and inferior pubic rami. Electronically signed by Addi Magdaleno 06-04-2025 11:[address] 06/04/25 13:52 HISTORY: Right hip fracture. TECHNIQUE: CT of the right hip without contrast. Images are presented in axial, sagittal, and coronal reformats. COMPARISON: CT of the abdomen pelvis from the same day. FINDINGS: Right hip arthroplasty. Comminuted periprosthetic fractureInvolves the subtrochanteric region of the right proximal femur.The acetabular component appears well-positioned and fixated with 2 cortical screws. Remote healed fracture deformity of the right inferior pubic ramus. Morgan catheter in the urinary bladder. Mild colonic diverticulosis. No intra-abdominal fluid collection or hematoma. Soft tissues of the right hip and proximal thigh are unremarkable. IMPRESSION: * Mildly displaced acute periprosthetic fracture involving the subtrochanteric region of the right proximal femur. Electronically signed by Addi Magdaleno 06-04-2025 2:35 PM PG Care Time/CCT Total # of Minutes Spent Total Time Spent with Patient: Total time spent is greater than 50% in coordination of care (as documented) at patient's floor/unit and/or counseling patient: [place] [address] IN/OBS CONSULT LVL 5,80M Patient Type New History Problem Focused Exam Problem Focused Medical Decision Making High Complexity Diagnoses Basilia-prosthetic subtrochanteric femur fracture M97.8XXA; Z96.649 Closed right hip fracture S72.001A
[2025-06-05] MEDS: LORazepam Inj 1 MG in SYRINGE 0.5 ML IV PRN (14:30)
[2025-06-05] MEDS ORDERED: LORazepam 1 MG TAB PO PRN (14:47)
[2025-06-05] MEDS ORDERED: LORazepam Inj 3 MG in SYRINGE 1.5 ML IV PRN (14:47)
[2025-06-05] MEDS ORDERED: LORazepam Inj 1 MG in SYRINGE 0.5 ML IV PRN (14:47)
[2025-06-05] MEDS ORDERED: LORazepam Inj 2 MG in SYRINGE 1 ML IV PRN (14:47)
[2025-06-05] MEDS: ONDANSETRON INJ 2 MG/ML 2 ML VIAL IV PRN (14:51)
--- NOTE | 2025-06-05 14:57 | Hospitalist Progress Note ---
Date of Service June 05, 2025 Assessment & Plan (1) Fall: (2) Closed right hip fracture: (3) Type 2 diabetes mellitus with hyperglycemia: (4) Alcohol use disorder, moderate, dependence: (5) Seizure disorder: (6) Hx of carotid artery stenosis: Plan 69-year-old male with a history of alcohol abuse, tobacco abuse, CAD with angina at rest and with exertion with a dissection at last attempted cardiac catheterization reportedly no longer Candidate, seizures unrelated to alcohol use well-controlled on Keppra for the last year, chronic hyponatremia with SIADH who presented after a fall which resulted in a hip fracture. He denies head strike/loss of consciousness which either led to his fall or due to his fall; however due to his inability to bear weight he reports he did fall asleep on the floor after falling. Fall, trauma Fall 1 day prior to admission suspect around 2 PM occurred in the setting of drinking alcohol. He denied syncope/presyncope, head strike, loss of consciousness however notes he could not stand due to hip pain and so fell asleep on the floor Continued to have pain after being assisted to bed, present to the ER 06/04 was found to have a periprosthetic hip fracture CTC-spine: No acute fracture/subluxation. Severe degenerative changes and m ultilevel central canal/neural for aminal stenosis is noted. CThead: No intracranial bleed/acute findings. Large area of encephalomalacia of the left frontal lobe stable likely sequelae of prior infarct. CTA/P: Acute pancreatitis. Acute periprosthetic fracture of the right proximal femur. 0.3 cm right middle lobe nodule not requiring follow-up per Fleischner criteria. As patient is a smoker could have 12-month chest CT follow-up. No solid organ injury is noted EKG: Normal sinus rhythm. Inverted T waves have replaced nonspecific T waves in inferior leads compared to prior. No acute territorial ST segment changes. Admitted following trauma alert. Will require tertiary survey 06/05, surgery consult placed - See orthos notes below Alcohol abuse Patient reports he had 3 beers yesterday before falling, per his he generally drinks 810 beers per day. Has had some mild tremors and shakes in the past, denies history of DTs. Denies alcohol withdrawal seizures although re ports he has had other seizures worked up by neurology and stable on Keppra. Denies hallucinations. PAWSS 3, he recently was discharged after 3-day stay without severe withdrawal symptoms likely experienceing withdrawal about 3 days after pancreatitis stay, now in the same time frame, currently c/w mild withdrawal, AWSS protocol ordered, no hx of wdx seizure Hyponatremia -250cc bolus and recheck this afternoon Hypokalemia -40meq now and 20mg BID for 3 days Periprosthetic fracture 2/2 fall Orthopedics consulted CThip: Mildly displaced acute periprosthetic fracture involving the s ubtrochanteric region of right proximal Significantly elevated surgical risk due to medical complexity and comorbidity including medically managed CAD with daily anginal symptoms at rest and with ex ertion. Unfortunately high morbidity mortality as well with nonop management. Nonweightbearing right lower extremity Multimodal pain control. Tylenol, hydromorphone 0.5-1.0 mg every 3 hours as needed for pain. If pursuing nonoperative management, can trial addition of muscle relaxer to help with spasm. See ortho notes, possible candidate for cable procedure. 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 Records pending. At his last attempted PCI he had a dissection. Per discussion with casting coordinator at that time was told cath should never be attempted due to his extremely high risk and he would need medical management moving forward. Additionally he is exceptionally high surgical risk due to his underlying CAD TTE 02/2024: LVEF 60 to 65%, grade 1 diastolic dysfunction, stable from prior study. Mild AR Metoprolol continued Ranolazine continued DAPT continued Isosorbide mononitrate 90 mg continued Amlodipine continued Cardiology note review 12/30/2024 with SUNNY Dinh: Noted to have CAD buck[place] artery of buck[place] heart with stable angina at that time. Complex coronary disease not amenable to PCI. Recommended to continue amlodipine/metoprolol/Plavix/Imdur/aspirin. Started on Ranexa. Recommended to continue every 6 month follow-up. At time of the cardiology note had continued to endorse chest pain daily with both rest and exertion, generally last throughout the day varying in intensity and eventually resolving and sometimes associated with shortness of breath. Ranexa added as noted and continued on medical management as he was not a cath candidate. Also of note he was statin intolerant, and also intolerant of fenofibrate. He was noncompliant with Praluent History of seizures Reported grand mal seizure in the past, reportedly unrelated to alcohol use [facility] neurology records as noted in HPI Reports no seizures since his Keppra was increased about 1 year ago Seizure precautions Alcohol management as otherwise noted CVA 2013/2016 with CVA resulting expressive aphasia, right hemiparesis, right foot drop/drag, and right arm contraction Per patient and family his right arm and right leg strength improved after 2017 although is still qualitatively weaker than his left and sometimes limits him. No recent change in strength prior to his fall Follows with Dr. Evans /neurology CT with large left frontal area of encephalomalacia likely related to his prior stroke Aspirin/Plavix continued Hyponatremia Recent workup consistent with SIADH. Multiple reasons for this including medications including Keppra. Additionally is at risk of solute depletion from beer [place] Fluid restricted Trend BMP daily Ideally goal greater than 130 however patient reports he is chronically about [id number] as outpatient has not been able to get the level stable above this in the past If sodium less than 120 treat with hypertonic saline due to risk of seizures. This is not indicated at time of admit Given that this is at near his baseline will trend daily rather than every 4 hours. If dropping, increased frequency of BMP checks Type II DM -Reports now diet controlled last A1c within goal Daily BMP, if greater than 180 then add basal bolus with goal [id number] COPD Chronic. Reports he has daily wheezing but this has not changed recently. Trelegy/formulary equivalent Scattered slight wheezing on admission. No cough or increased sputum production suggestive of acute exacerbation GERD PPI Tobacco abuse 1 pack/day Nicotine patch ordered Recent pancreatitis, clinically improved Lipase level 105, resolving Patient did recently recover from acute pancreatitis. CT likely with residual changes from this however he has continued to drink alcohol and is at risk of further flaring this. He reports that when he was drinking yesterday this does not cause increased pain, he is hungry and with a good appetite, and his meals yesterday did not cause him any discomfort. Clinically does not show signs of recurrent acute/chronic pancreatitis on admission DVT prophylaxis: Lovenox added 2/2 trauma with nonoperative management at increased risk of VTE. No signs of ICH, hemoglobin is stable 24 hours out from fall CODE STATUS: DNR/DNI Diet: Heart healthy, fluid restricted Disposition: Admit to telemetry given combination of trauma, seizure risk, hyponatremia, and acute fracture with history of alcohol dependence and chronic CAD with daily. Admission and Anticipated Discharge Date Admission Date: June 04, 2025 Subjective patient doing okay this morning. Interacting with nursing staff somewhat forgetful. Minor confusion at times. Was able to discuss with his . On discharge from the hospital here with pancreatitis after he got home it seemed as though he was having more anxiousness and confusion prior to his fall. She states he has never gone long enough without alcohol to experience full withdrawal. We are now about 3 days postinjury so about the time when his previous symptoms started. Otherwise no new complaints or concerns. No events per nursing staff. Physical Exam Physical Exam: General: A&Ox3. NAD. Cooperative. HEENT: Atraumatic, normocephalic. Pupils equal and reactive to light. Vision and hearing grossly intact. Poor dentition, several missing teeth. No midline cervical neck tenderness Pulm: CTAB A&P. Scattered slight expiratory rales without wheezes/rhonchi. Symmetrical chest rise. No increased work of breathing. No respiratory distress. Cardiac: RRR, soft sm. Radial pulses intact and symmetrical. Abdominal: Nontender, nondistended, soft. BS present. Extremities: Very tender to palpation overlying the lateral and anterior right hip. Resting with a slightly hip flexed position. Ankle dorsiflexion/plantarflexion are 5/5 bilaterally although qualitatively weaker in the right compared to the left. Sensation of soft touch is intact in the feet and the lower leg bilaterally. PT pulses intact in the lower extremities bilaterally. Machine Cell Tuber strength and elbow flexion 5/5 bilaterally, qualitatively slightly weaker on the right compared to the left. Results & Data Results & Data Vital Signs (Past 12 Hours) Vital Signs Temp Pulse Pulse Resp BP Pulse Ox Pulse Ox 06/05/25 14:05 82 18 120/70 95 06/05/25 10:43 37.1 C 83 23 141/73 H 90 06/05/25 08:00 84 06/05/25 07:19 36.4 C L 82 22 142/76 H 90 06/05/25 03:00 95 O2 Del Method O2 Del Method O2 Flow Rate 06/05/25 14:05 Nasal Cannula 06/05/25 10:43 Room Air 06/05/25 08:00 06/05/25 07:19 Room Air 06/05/25 03:00 Nasal Cannula 2 PG Care Time/CCT Total # of Minutes Spent Total Time Spent with Patient: Total time spent is greater than 50% in coordination of care (as documented) at patient's floor/unit and/or counseling patient: Coding Level of Care Code 59086 SUB INP/OBS CARE 2/35MIN Diagnoses Fall W19.XXXA Closed right hip fracture S72.001A Type 2 diabetes mellitus with hyperglycemia, without long-term current use of insulin E11.65 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
[2025-06-05 15:01] LABS: Anion Gap 9.0 (3-11); Blood Urea Nitrogen 24.0 mg/dl (6-23); Calcium 9.5 mg/dl (8.6-10.3); Carbon Dioxide 25.0 mmol/L (21-32); Chloride 93.0 mmol/L (98-107); Creatinine Clr Calc Pharmacy 75.3 ml/min; Glucose 119.0 mg/dl (70-99(Fasting)); Potassium 3.9 mmol/L (3.5-5.1); Sodium 127.0 mmol/L (136-145)
[2025-06-05] MEDS: SODIUM CHLORIDE 0.9% 1,000 ML IV SCH (15:56)
[2025-06-05] MEDS: POTASSIUM CHLORIDE CRTAB 20 MEQ TABCR PO SCH (21:44)
[2025-06-06 06:34] LABS: Hematocrit (blood only) 29.9 % (42.0-52.0); Hemoglobin 10.3 g/dl (14.0-18.0); Immature Granulocytes # (auto) 0.29 K/uL (0.01-0.20); Immature Granulocytes % (auto) 2.5 %; Mean Corpuscular Hemoglobin 33.0 pg (25.0-34.0); Mean Corpuscular Volume 95.8 fL (80.0-100.0); Platelet Count 282 K/uL (130-400); RDW Standard Deviation 44.0 fL (36.4-46.3); Red Blood Count 3.12 M/uL (4.70-6.10); White Blood Count 11.48 K/ul (4.8-10.8)
[2025-06-06 07:09] LABS: Alanine Aminotransferase 15.0 U/L (7-52); Albumin Globulin Ratio 1.1 (0.9-2); Albumin Level 3.5 gm/dl (3.4-5.0); Alkaline Phosphatase 56.0 U/L (34-104); Anion Gap 10.0 (3-11); Bilirubin,Total 0.7 mg/dl (0.2-1.0); Blood Urea Nitrogen 24.0 mg/dl (6-23); Calcium 9.2 mg/dl (8.6-10.3); Carbon Dioxide 24.0 mmol/L (21-32); Chloride 95.0 mmol/L (98-107); Creatinine Clr Calc Pharmacy 80.0 ml/min; Globulin 3.2 gm/dl (2.5-4.0); Glucose 101.0 mg/dl (70-99(Fasting)); Magnesium 1.8 mg/dl (1.7-2.4); Potassium 4.2 mmol/L (3.5-5.1); Sodium 129.0 mmol/L (136-145); Total Protein 6.7 gm/dl (6.0-8.3)
--- NOTE | 2025-06-06 10:43 | Orthopedic Progress Note ---
Date of Service June 06, 2025 Assessment & Plan (1) Basilia-prosthetic subtrochanteric femur fracture: * Case/imaging reviewed and discussed with Dr Benavidez * Medically complex patient, not ideal surgical candidate * May benefit from cable fixation pending ambulation * Recommend trial of ambulation/PWB with PT to attempt transfer, get to chair, etc * If unable to ambulate will need further discussion of possible OR * Discussed bedside yesterday with patient's , and with Dr Henson today * Will attempt ambulation following improvement of withdrawal, and would need to optimize for OR if needed * Weight bearing status: PWB RLE * Daily treatment: Physical Therapy/ Occupational Therapy per protocol * Pain control * Disposition: TBD * Remainder care per primary team * Will continue to follow and update plan as available (2) Closed right hip fracture: Subjective .Active Problems: Periprosthetic right proximal femur fracture 69 y/o male with Periprosthetic right proximal femur fracture. Currently going through alcohol withdrawal. Has not yet ambulated secondary to this. Continued right hip/thigh pain. Denies fever/chills, chest pain/SOB, nausea/vomiting. Otherwise no complaints. Review of Systems All systems reviewed & are unremarkable except as noted in HPI & below. Physical Exam * Musculoskeletal: Right hip with well healed surgical incision, no skin breakdown or dehiscence. Otherwise no deformity or overlying skin change to RLE. Mild TTP proximal thigh/anterior hip region. Otherwise no specific tenderness of the right lower extremity. Pain with log roll, Limited AROM hip flexion due to pain. AROM knee flexion/extension intact. Sensation intact plantar/dorsal foot. Brisk capillary refill. Results & Data Results & Data Laboratory Results . Diagnostic Findings . PG Care Time/CCT Total # of Minutes Spent Total Time Spent with Patient: Total time spent is greater than 50% in coordination of care (as documented) at patient's floor/unit and/or counseling patient: Coding Level of Care Code 57354 SUB INP/OBS CARE 2/35MIN Diagnoses Basilia-prosthetic subtrochanteric femur fracture M97.8XXA; Z96.649 Closed right hip fracture S72.001A
[2025-06-06] MEDS ORDERED: ALBUT/IPRATROP 3MG/0.5MG NEB 3 ML VIAL NEB PRN (11:52)
[2025-06-06] MEDS: ALBUT/IPRATROP 3MG/0.5MG NEB 3 ML VIAL ONE (12:00)
--- NOTE | 2025-06-06 14:27 | Hospitalist Progress Note ---
Date of Service June 06, 2025 Assessment & Plan (1) Fall: (2) Closed right hip fracture: (3) Type 2 diabetes mellitus with hyperglycemia: (4) Alcohol use disorder, moderate, dependence: (5) Seizure disorder: (6) Hx of carotid artery stenosis: (7) Alcohol withdrawal delirium: Plan 69-year-old male with a history of alcohol abuse, tobacco abuse, CAD with angina at rest and with exertion with a dissection at last attempted cardiac catheterization reportedly no longer Candidate, seizures unrelated to alcohol use well-controlled on Keppra for the last year, chronic hyponatremia with SIADH who presented after a fall which resulted in a hip fracture. He denies head strike/loss of consciousness which either led to his fall or due to his fall; however due to his inability to bear weight he reports he did fall asleep on the floor after falling. Fall, trauma Fall 1 day prior to admission suspect around 2 PM occurred in the setting of drinking alcohol. He denied syncope/presyncope, head strike, loss of consciousness however notes he could not stand due to hip pain and so fell asleep on the floor Continued to have pain after being assisted to bed, present to the ER 06/04 was found to have a periprosthetic hip fracture CTC-spine: No acute fracture/subluxation. Severe degenerative changes and multilevel central canal/neural for aminal stenosis is noted. CThead: No intracranial bleed/acute findings. Large area of encephalomalacia of the left frontal lobe stable likely sequelae of prior infarct. CTA/P: Acute pancreatitis. Acute periprosthetic fracture of the right proximal femur. 0.3 cm right middle lobe nodule not requiring follow-up per Fleischner criteria. As patient is a smoker could have 12-month chest CT follow-up. No solid organ injury is noted EKG: Normal sinus rhythm. Inverted T waves have replaced nonspecific T waves in inferior leads compared to prior. No acute territorial ST segment changes. Admitted following trauma alert. Tertiary survey unremarkable - See orthos notes below Alcohol Withdrawal with delerium Alcohol abuse mild to moderate withdrawal symptoms, TIKA protocol initiated. Medications administered x 2. - Continue PCO given history of trauma. No evidence of closed head injury. Prior CT negative. No indication for reimaging at this time Dysphagia: - NPO now, WRAP CHECKER in AM - NS at 100cc /HR Hyponatremia - modest improvement, will run normal saline at 100 cc/h overnight recheck in the morning Hypokalemia -DC supplement and monitor Periprosthetic fracture / fall Orthopedics consulted - Defer evaluation until wdx symptoms improve as path for intervention is not necessarily time sensitive. CAD, daily angina at rest and w/ exertion, per cards not a cardiac cath/interventional candidate; hypertension History of cardiac cath /2016, attempted PCI of FORESTRY SUPPORT SPECIALIST of right coronary aborted due to small focal dissection in 2017 Patient follows with [facility] [place] cardiology. Records pending. At his last attempted PCI he had a dissection. Per discussion with it architecture consultant at that time was told cath should never be attempted due to his extremely high risk and he would need medical management moving forward. Additionally he is exceptionally high surgical risk due to his underlying CAD TTE 02/2024: LVEF 60 to 65%, grade 1 diastolic dysfunction, stable from prior study. Mild AR Metoprolol continued Ranolazine continued DAPT continued Isosorbide mononitrate 90 mg continued Amlodipine continued Cardiology note review 12/30/2024 with SUNNY Dinh: Noted to have CAD [place] artery of [place] heart with stable angina at that time. Complex coronary disease not amenable to PCI. Recommended to continue amlodipine/metoprolol/Plavix/Imdur/aspirin. Started on Ranexa. Recommended to continue every 6 month follow-up. At time of the cardiology note had continued to endorse chest pain daily with both rest and exertion, generally last throughout the day varying in intensity and eventually resolving and sometimes associated with shortness of breath. Ran exa added as noted and continued on medical management as he was not a cath candidate. Also of note he was statin intolerant, and also intolerant of fenofibrate. He was noncompliant with Praluent - He would be high risk to hold plavix, once he clears will discuss mgmt with heparin if plavix can be held. History of seizures Reported grand mal seizure in the past, reportedly unrelated to alcohol use [facility] neurology records as noted in HPI Reports no seizures since his Keppra was increased about 1 year ago Seizure precautions Alcohol management as otherwise noted CVA with CVA resulting expressive aphasia, right hemiparesis, right foot drop/drag, and right arm contraction Per patient and family his right arm and right leg strength improved after 2017 although is still qualitatively weaker than his left and sometimes limits him. No recent change in strength prior to his fall Follows with Dr. Evans /neurology CT with large left frontal area of encephalomalacia likely related to his prior stroke Aspirin/Plavix continued Type II DM -Reports now diet controlled last A1c within goal Daily BMP, if greater than 180 then add basal bolus with goal [id number] COPD Chronic. Reports he has daily wheezing but this has not changed recently. Trelegy/formulary equivalent Scattered slight wheezing on admission. No cough or increased sputum pr oduction suggestive of acute exacerbation GERD PPI Tobacco abuse 1 pack/day Nicotine patch ordered Recent pancreatitis, clinically improved Lipase level 105, resolving Patient did recently recover from acute pancreatitis. CT likely with residual changes from this however he has continued to drink alcohol and is at risk of further flaring this. He reports that when he was drinking yesterday this does not cause increased pain, he is hungry and with a good appetite, and his meals yesterday did not cause him any discomfort. Clinically does not show signs of recurrent acute/chronic pancreatitis on admission DVT prophylaxis: Lovenox added 2/2 trauma with nonoperative management at increased risk of VTE. No signs of ICH, hemoglobin is stable 24 hours out from fall CODE STATUS: DNR/DNI Diet: Heart healthy, fluid restricted Disposition: Admit to telemetry given combination of trauma, seizure risk, hyponatremia, and acute fracture with history of alcohol dependence and chronic CAD with daily. Admission and Anticipated Discharge Date Admission Date: June 04, 2025 Subjective More confused this morning. Slept appropriately. Difficulty with swallowing and choking on most things. Failing bedside swallow. He was made n.p.o. and speech consult was placed. Otherwise at times he tracks answers brief questions appropriately but very confused at times very poor or limited recall events of the morning. Had no recall that his had visited him yesterday. Oriented to self only Physical Exam Physical Exam: General: A&Ox1. NAD. Eyes closed at rest but open to voice HEENT: Atraumatic, normocephalic. Pupils equal and reactive to light. Vision and hearing grossly intact. Poor dentition, several missing teeth. No midline cervical neck tenderness Pulm: CTAB A&P. Scattered slight expiratory rales without wheezes/rhonchi. Symmetrical chest rise. No increased work of breathing. No respiratory distress. Cardiac: RRR, soft sm. Radial pulses intact and symmetrical. Abdominal: Nontender, nondistended, soft. BS present. Extremities: Very tender to palpation overlying the lateral and anterior right hip. no visible deformity, bruising or malalignment Neuro: no tremor, mild confusion as above. Oriented to self only. No dysmetria or dysarthria. Results & Data Results & Data Vital Signs (Past 12 Hours) Vital Signs Temp Pulse Pulse Resp BP Pulse Ox Pulse Ox 06/06/25 12:00 78 20 96 06/06/25 11:00 97 06/06/25 10:51 36.3 C L 80 20 134/70 98 06/06/25 10:00 95 06/06/25 08:16 36.6 C 78 17 143/74 H 90 06/06/25 08:00 94 06/06/25 07:00 84 06/06/25 07:00 95 06/06/25 04:00 36.3 C L 77 18 128/64 93 O2 Del Method O2 Del Method O2 Flow Rate O2 Flow Rate 06/06/25 12:00 Nasal Cannula 4 06/06/25 11:00 Nasal Cannula 3 06/06/25 10:51 Nasal Cannula 4 06/06/25 10:00 Nasal Cannula 3 06/06/25 08:16 Nasal Cannula 4 06/06/25 08:00 Room Air 06/06/25 07:00 06/06/25 07:00 Room Air 06/06/25 04:00 Nasal Cannula 4 Laboratory Results 06/06/25 06/05/25 05:37 14:33 WBC 11.48 H RBC 3.12 L Hgb 10.3 L Hct 29.9 L MCV 95.8 MCH 33.0 MCHC 34.4 RDW Std Deviation 44.0 RDW Coeff of Keny 12.4 Plt Count 282 MPV 9.0 L Immature Gran % (Auto) 2.5 Neut % (Auto) 72.1 Lymph % (Auto) 12.1 [place] % (Auto) 11.9 Eos % (Auto) 0.8 Baso % (Auto) 0.6 Neut # (Auto) 8.27 H Lymph # (Auto) 1.39 [place] # (Auto) 1.37 H Eos # (Auto) 0.09 Baso # (Auto) 0.07 Immature Gran # (Auto) 0.29 H Sodium 129 L 127 L Potassium 4.2 3.9 Chloride 95 L 93 L Carbon Dioxide 24 25 Anion Gap 10 9 BUN 24 H 24 H Creatinine 1.03 1.10 Est Cr Clr Drug Dosing 80.0 75.3 eGFR 78.15 72.22 BUN/Creatinine Ratio 23.3 H 21.8 H Glucose 101 H 119 H Calcium 9.2 9.5 Magnesium 1.8 Total Bilirubin 0.7 AST 26 ALT 15 Alkaline Phosphatase 56 Total Protein 6.7 Albumin 3.5 Globulin 3.2 Albumin/Globulin Ratio 1.1 PG Care Time/CCT Total # of Minutes Spent Total Time Spent with Patient: Total time spent is greater than 50% in coordination of care (as documented) at patient's floor/unit and/or counseling patient: Coding Level of Care Code 88584 SUB INP/OBS CARE 2/35MIN Diagnoses Fall W19.XXXA Closed right hip fracture S72.001A Type 2 diabetes mellitus with hyperglycemia, without long-term current use of insulin E11.65 Diabetes mellitus mcc insulin use: without mcc use Alcohol use disorder, moderate, dependence F10.20 Seizure disorder G40.909 Hx of carotid artery stenosis Z86.79 Alcohol withdrawal delirium F10.931 (3) Type 2 diabetes mellitus with hyperglycemia Diabetes mellitus [employer] insulin use: without mcc use Qualified Code(s): E11.65 - Type 2 diabetes mellitus with hyperglycemia
[2025-06-06] MEDS: ACETAMINOPHEN 1,000 MG/100 ML VIAL IV PRN (17:39)
[2025-06-07 09:10] LABS: Hematocrit (blood only) 36.5 % (42.0-52.0); Hemoglobin 12.6 g/dl (14.0-18.0); Immature Granulocytes # (auto) 0.26 K/uL (0.01-0.20); Immature Granulocytes % (auto) 2.5 %; Mean Corpuscular Hemoglobin 32.7 pg (25.0-34.0); Mean Corpuscular Volume 94.8 fL (80.0-100.0); Platelet Count 351 K/uL (130-400); RDW Standard Deviation 43.4 fL (36.4-46.3); Red Blood Count 3.85 M/uL (4.70-6.10); White Blood Count 10.51 K/ul (4.8-10.8)
[2025-06-07 09:25] LABS: Alanine Aminotransferase 18.0 U/L (7-52); Albumin Globulin Ratio 0.8 (0.9-2); Albumin Level 3.3 gm/dl (3.4-5.0); Alkaline Phosphatase 73.0 U/L (34-104); Anion Gap 9.0 (3-11); Bilirubin,Total 0.9 mg/dl (0.2-1.0); Blood Urea Nitrogen 14.0 mg/dl (6-23); Calcium 9.7 mg/dl (8.6-10.3); Carbon Dioxide 28.0 mmol/L (21-32); Chloride 95.0 mmol/L (98-107); Creatinine Clr Calc Pharmacy 126.3 ml/min; Globulin 4.2 gm/dl (2.5-4.0); Glucose 122.0 mg/dl (70-99(Fasting)); Magnesium 1.8 mg/dl (1.7-2.4); Potassium 4.6 mmol/L (3.5-5.1); Sodium 132.0 mmol/L (136-145); Total Protein 7.5 gm/dl (6.0-8.3)
--- NOTE | 2025-06-07 10:26 | Hospitalist Progress Note ---
Date of Service June 07, 2025 Assessment & Plan (1) Fall: (2) Closed right hip fracture: (3) Type 2 diabetes mellitus with hyperglycemia: (4) Alcohol use disorder, moderate, dependence: (5) Seizure disorder: (6) Hx of carotid artery stenosis: (7) Alcohol withdrawal delirium: Plan 69-year-old male with a history of alcohol abuse, tobacco abuse, CAD with angina at rest and with exertion with a dissection at last attempted cardiac catheterization reportedly no longer Candidate, seizures unrelated to alcohol use well-controlled on Keppra for the last year, chronic hyponatremia with SIADH who presented after a fall which resulted in a hip fracture. He denies head strike/loss of consciousness which either led to his fall or due to his fall; however due to his inability to bear weight he reports he did fall asleep on the floor after falling. said Fall, trauma Periprostetic Hip Fx Fall 1 day prior to admission suspect around 2 PM occurred in the setting of drinking alcohol. He denied syncope/presyncope, head strike, loss of consciousness however notes he could not stand due to hip pain and so fell asleep on the floor Continued to have pain after being assisted to bed, present to the ER 06/04 was found to have a periprosthetic hip fracture CTC-spine: No acute fracture/subluxation. Severe degenerative changes and multilevel central canal/neural for aminal stenosis is noted. CThead: No intracranial bleed/acute findings. Large area of encephalomalacia of the left frontal lobe stable likely sequelae of prior infarct. CTA/P: Acute pancreatitis. Acute periprosthetic fracture of the right proximal femur. 0.3 cm right middle lobe nodule not requiring follow-up per Fleischner criteria. As patient is a smoker could have 12-month chest CT follow-up. No solid organ injury is noted EKG: Normal sinus rhythm. Inverted T waves have replaced nonspecific T waves in inferior leads compared to prior. No acute territorial ST segment changes. Admitted following trauma alert. Tertiary survey unremarkable - See orthos notes below - Unable to bear weight with PT yesterday, now more mentally clear, will retrial Alcohol Withdrawal with delerium Alcohol abuse mild to moderate withdrawal symptoms, TIKA protocol initiated. Medications administered x 2. - Continue PCO given history of trauma. No evidence of closed head injury. Prior CT negative. No indication for reimaging at this time - No ativan needed, clearning this AM Dysphagia: - NPO now, DIRECTOR CAREER with poor swallow yesterday - NS at 100cc /HR - recheck DIRECTOR CAREER today as he is more alert and clear this AM Hyponatremia - modest improvement, will run normal saline at 100 cc/h overnight recheck in the morning Hypokalemia -DC supplement and monitor Periprosthetic fracture / fall Orthopedics consulted - Defer evaluation until wdx symptoms improve as path for intervention is not necessarily time sensitive. CAD, daily angina at rest and w/ exertion, per cards not a cardiac cath/interventional candidate; hypertension History of cardiac cath /2016, attempted PCI of OUTPATIENT PHYSICAL THERAPIST of right coronary aborted due to small focal dissection in 2017 Patient [place] [facility] [place] Records pending. At his last attempted PCI he had a dissection. Per discussion with template worker at that time was told cath should never be attempted due to his extremely high risk and he would need medical management moving forward. Additionally he is exceptionally high surgical risk due to his underlying CAD TTE 02/2024: LVEF 60 to 65%, grade 1 diastolic dysfunction, stable from prior study. Mild AR Metoprolol continued Ranolazine continued DAPT continued Isosorbide mononitrate 90 mg continued Amlodipine continued Cardiology note review 12/30/2024 with SUNNY Dinh: Noted to have CAD [place] artery of [place] heart with stable angina at that time. Complex coronary disease not amenable to PCI. Recommended to continue amlodipine/metoprolol/Plavix/Imdur/aspirin. Started on Ranexa. Recommended to continue every 6 month follow-up. At time of the cardiology note had continued to endorse chest pain daily with both rest and exertion, generally last throughout the day varying in intensity and eventually resolving and sometimes associated with shortness of breath. Ranexa added as noted and continued on medical management as he was not a cath candidate. Also of note he was statin intolerant, and also intolerant of fenofibrate. He was noncompliant with Praluent - He would be high risk to hold plavix, once he clears will discuss mgmt with heparin if plavix can be held. - he is much more likely to need a complete procedure on the hip at this point. Will consult to cardiology for periprocedural antiplatelet management History of seizures Reported grand mal seizure in the past, reportedly unrelated to alcohol use [facility] [place] as noted in HPI Reports no seizures since his Keppra was increased about 1 year ago Seizure precautions Alcohol management as otherwise noted CVA with CVA resulting expressive aphasia, right hemiparesis, right foot drop/drag, and right arm contraction Per patient and family his right arm and right leg strength improved after 2017 although is still qualitatively weaker than his left and sometimes limits him. No recent change in strength prior to his fall Follows with Dr. Evans /neurology CT with large left frontal area of encephalomalacia likely related to his prior stroke Aspirin/Plavix continued. see CAD above Type II DM -Reports now diet controlled last A1c within goal Daily BMP, if greater than 180 then add basal bolus with goal [id number] COPD Chronic. Reports he has daily wheezing but this has not changed recently. Trelegy/formulary equivalent Scattered slight wheezing on admission. No cough or increased sputum production suggestive of acute exacerbation GERD PPI Tobacco abuse 1 pack/day Nicotine patch ordered Recent pancreatitis, clinically improved Lipase level 105, resolving Patient did recently recover from acute pancreatitis. CT likely with residual changes from this however he has continued to drink alcohol and is at risk of further flaring this. He reports that when he was drinking yesterday this does not cause increased pain, he is hungry and with a good appetite, and his meals yesterday did not cause him any discomfort. Clinically does not show signs of recurrent acute/chronic pancreatitis on admission DVT prophylaxis: Lovenox added 2/2 trauma with nonoperative management at increased risk of VTE. No signs of ICH, hemoglobin is stable 24 hours out from fall CODE STATUS: DNR/DNI Diet: Heart healthy, fluid restricted Disposition: Admit to telemetry given combination of trauma, seizure risk, hyponatremia, and acute fracture with history of alcohol dependence and chronic CAD with daily. Admission and Anticipated Discharge Date Admission Date: June 04, 2025 Subjective Doing a bit better this morning. Tracking a little bit more clearly oriented to self and location. Has pretty good recall of his pain in his hip symptoms through the night. Recalls that he was unable to sit at the bedside. No other new complaints or concerns. No events. Blood pressure has been evaluated this morning. Discussed with nursing. Swallow study yesterday indicated no safe swallow. He is mentally more clear today. Will have DIRECTOR CAREER see him again Physical Exam Physical Exam: General: A&Ox2. NAD. Eyes closed at rest but open to voice HEENT: Atraumatic, normocephalic. Pupils equal and reactive to light. Vision and hearing grossly intact. Poor dentition, several missing teeth. No midline cervical neck tenderness Pulm: CTAB A&P. Scattered slight expiratory rales without wheezes/rhonchi. Symmetrical chest rise. No increased work of breathing. No respiratory distress. Cardiac: RRR, soft sm. Radial pulses intact and symmetrical. Abdominal: Nontender, nondistended, soft. BS present. Extremities: Very tender to palpation overlying the lateral and anterior right hip. no visible deformity, bruising or malalignment Neuro: no tremor, mild confusion as above. Oriented to self only. No dysmetria or dysarthria. Results & Data Results & Data Vital Signs (Past 12 Hours) Vital Signs Temp Pulse Pulse Resp BP Pulse Ox O2 Del Method 06/07/25 10:00 174/78 H 06/07/25 09:00 Nasal Cannula 06/07/25 08:00 82 06/07/25 07:52 36.6 C 86 24 185/86 H 100 Nasal Cannula 06/07/25 03:31 36.3 C L 81 18 156/86 H 92 Nasal Cannula 06/06/25 22:29 36.8 C 80 20 159/77 H 92 Nasal Cannula O2 Flow Rate 06/07/25 10:00 06/07/25 09:00 4 06/07/25 08:00 06/07/25 07:52 3 06/07/25 03:31 4 06/06/25 22:29 4 Laboratory Results 06/07/25 08:40 WBC 10.51 RBC 3.85 L Hgb 12.6 L Hct 36.5 L MCV 94.8 MCH 32.7 MCHC 34.5 RDW Std Deviation 43.4 RDW Coeff of Keny 12.5 Plt Count 351 MPV 8.8 L Immature Gran % (Auto) 2.5 Neut % (Auto) 78.6 Lymph % (Auto) 9.6 [place] % (Auto) 7.9 Eos % (Auto) 0.7 Baso % (Auto) 0.7 Neut # (Auto) 8.27 H Lymph # (Auto) 1.01 L [place] # (Auto) 0.83 H Eos # (Auto) 0.07 Baso # (Auto) 0.07 Immature Gran # (Auto) 0.26 H Sodium 132 L Potassium 4.6 Chloride 95 L Carbon Dioxide 28 Anion Gap 9 BUN 14 Creatinine 0.65 D Est Cr Clr Drug Dosing 126.3 eGFR 101.37 BUN/Creatinine Ratio 21.5 H Glucose 122 H Calcium 9.7 Magnesium 1.8 Total Bilirubin 0.9 AST 32 ALT 18 Alkaline Phosphatase 73 Total Protein 7.5 Albumin 3.3 L Globulin 4.2 H Albumin/Globulin Ratio 0.8 L PG Care Time/CCT Total # of Minutes Spent Total Time Spent with Patient: Total time spent is greater than 50% in coordination of care (as documented) at patient's floor/unit and/or counseling patient: Coding Level of Care Code 07063 SUB INP/OBS CARE 235MIN Diagnoses Fall W19.XXXA Closed right hip fracture S72.001A Type 2 diabetes mellitus with hyperglycemia, without long-term current use of insulin E11.65 Diabetes mellitus [facility] insulin use: without [facility] use Alcohol use disorder, moderate, dependence F10.20 Seizure disorder G40.909 Hx of carotid artery stenosis Z86.79 Alcohol withdrawal delirium F10.931 (3) Type 2 diabetes mellitus with hyperglycemia Diabetes mellitus [facility] insulin use: without [facility] use Qualified Code(s): E11.65 - Type 2 diabetes mellitus with hyperglycemia
--- NOTE | 2025-06-07 11:01 | Cardiology Consultation ---
Date of Consultation June 07, 2025 Assessment & Plan (1) Basilia-prosthetic subtrochanteric femur fracture: (2) Alcohol withdrawal delirium: (3) Preop cardiovascular exam: (4) Coronary artery disease with stable angina pectoris: (5) Hypertension: Plan Patient is a 69 year old male who was admitted after a fall and right hip fracture, inability to ambulate. Complex history of CAD with chronic total occlusion of the RCA that is not amenable to revascularization, and other moderate noon obstructive disease. Med management recommended. Preserved LVEF per last echo in 2023. He has known chronic chest pain and chronic stable angina. Med In the past, some of his chest pain complaints have been deemed non cardiac in nature. During admission, he developed acute alcohol withdrawal/delirium, now slowly improving. Currently NPO including medications until speech evaluates Orthopedics is contemplating surgical repair of his right hip. Cardiology consulted for preoperative cardiac risk stratification and recommendations on dual antiplatelet therapy. Recommendations: Continue alcohol withdrawal protocol. Await speech evaluation today and hopefully he can resume his outpatient antihypertensive medications including metoprolol, amlodipine, isosorbide, ranolazine. Continue ASA. Acceptable to hold plavix due to potential need for orthopedic surgery. No recent coronary or vascular interventions. Last dose was morning of 06/06. Not on statin due to intolerances. He is to take PCSK9 as outpatient. Update echo to re-evaluate LVEF. As long as echo is without new/acute findings, no further cardiac testing would be warranted prior to possible orthopedic surgery. He is considered moderate cardiovascular risk based on his history of cardiovascular disease that is not amenable to revascularization. Further testing would not reduce or improve his surgical risks. He has no acute anginal symptoms or CHF complaints at the time of evaluation. Case discussed with Dr. Nielson. I spent a total of 60 minutes on the date of service in preparation, delivery, and documentation of the care provided to this patient, excluding any time spent in the performance of separately billed services. Alicia Pulido PA-C Department of Cardiology, [facility] This chart was completed in part utilizing Speech Voice Recognition Software. Grammatical errors, random word insertions, pronoun errors, and incomplete sentences are an occasional consequence of this system due to software limitations, ambient noise, and hardware issues. Any formal questions or concerns about the content, text, or information contained within the body of this dictation should be directly addressed to the provider for clarification. Supervising Physician Co-Signing Physician Notes Patient was seen and personally examined. Full assessment and plan as outlined by advanced provider as above. Care and management discussed and personally endorsed. 69-year-old male admitted following mechanical fall and hip fracture. Current hospital course notable for acute delirium with alcohol withdrawal. Underlying medical issues notable for longstanding chronic coronary artery disease with chronic occlusion of the right coronary artery, chronic angina pectoris on appropriate medical therapy with combination of cardiac and noncardiac chest pain. LV systolic function preserved by prior interrogation Repeat study pending No significant EKG changes. Referred for cardiac management and preoperative evaluation. Assessment as above no cardiac contraindications to surgery at moderately increased risk. Okay to hold clopidogrel for procedure. Continue aspirin perioperatively. Would resume antihypertensive and cardiac medications currently on hold due to delirium. History of Present Illness Reason for Consultation: Preop cardiovascular risk; hip fracture; complex CAD Requesting Physician: Dr. Henson Attending Physician: Dr. Nielson History of Present Illness Patient is a complex 69 year old male who presented to [facility] after a fall, possible syncopal episode vs fall due to alcohol intoxication with resultant right hip fracture. Patient admitted to [facility] last week with pancreatitis and hyponatremia. Discharged on 06/02. Readmitted after this fall on 06/04. He is currently undergoing alcohol withdrawal protocol. Per nursing staff, the patient has been confused over the last 2 days, but today he is more alert. Remains NPO. Has not taken oral medications due to confusion. Awaiting speech evaluation. Orthopedics is considering surgical intervention on right hip if he is not able to ambulate. Given his history of coronary artery disease and chronic stable angina, cardiology preoperative evaluation and risk assessment requested, along with recommendations for antiplatelet therapy. He does answer questions appropriately at time of evaluation. Resting in bed comfortably. He denies current chest pain or SOB. BP is uncontrolled this morning but has not received oral antihypertensives. Awaiting speach and swallow evaluation. Telemetry reviewed without arrhythmias. No orthopnea, PND or edema to suggest acute CHF exacerbation. HS troponin on admission was negative. Sodium was 127 on admission, now 132. EKG on admission without acute ischemic changes. Remains NSR on telemetry. History is complex and includes: 1. Chronic alcohol and tobacco abuse 2. Chronic hyponatremia with SIADH 3. Complex CAD with chronic stable angina with FLIGHT OPERATIONS COORDINATOR of the RCA with collaterals from the LAD and other residual non obstructive disease with prox and mid LAD with 50% stenosis. Attempted FLIGHT OPERATIONS COORDINATOR intervention resulted in small dissection of the aortic root and procedure was aborted. Medical management recommended. 4. Non compliance 5. Chronic atypical chest pain as well 6. Carotid artery disease with prior right carotid stent (2012) and left chronic occlusion - prior Left MCA stroke. 7. Dyslipidemia with statin intolerances 9. Seziure disorder Allergies Allergy/AdvReac Type Severity Reaction Status Date / Time ciprofloxacin Allergy Severe hives Verified 05/30/25 17:36 simvastatin AdvReac Intermediate MUSCLE Verified 05/30/25 17:36 PAIN/WEAKNESS Izbcppq-[id number]-CqB Reductase AdvReac Intermediate MUSCLE Verified 05/30/25 17:36 Inhibitor PAIN/WEAKNESS [Pxxjmto-Vcf-Efu Reductase Inhibitor] Home Medications Medication Instructions Recorded Confirmed Type clopidogrel 75 mg tablet 75 mg PO QAM ##0 06/14/15 06/04/25 History nitroglycerin 0.4 mg sublingual 0.4 mg sublingual DIRECTED PRN 04/18/18 06/04/25 History tablet Chest Pain ##0 aspirin 81 mg tablet,delayed 81 mg PO QAM 10/02/18 06/04/25 History release cholecalciferol (vitamin D3) 50 50 mcg PO QAM 11/27/22 06/04/25 History mcg (2,000 unit) capsule (Vitamin D3) finasteride 5 mg tablet 5 mg PO QPM 11/27/22 06/04/25 History omeprazole 20 mg capsule,delayed 20 mg PO Q OTHER DAY 11/27/22 06/04/25 History release lasmiditan 50 mg tablet (Reyvow) 50 mg PO DIRECTED PRN Migraine 07/09/23 06/04/25 History Headache amlodipine 5 mg tablet 5 mg PO UD 06/12/24 06/04/25 History isosorbide mononitrate 30 mg 90 mg PO QAM 06/12/24 06/04/25 History tablet,extended release 24 hr levetiracetam 500 mg tablet 1,000 mg PO HS 06/12/24 06/04/25 History levetiracetam 500 mg tablet 500 mg PO QAM 06/12/24 06/04/25 History (Keppra) metoprolol succinate 25 mg 12.5 mg PO HS 06/12/24 06/04/25 History tablet,extended release 24 hr metoprolol succinate 25 mg 25 mg PO QAM 06/12/24 06/04/25 History tablet,extended release 24 hr thiamine HCl (vitamin B1) 100 mg 100 mg PO QAM #30 tabs 06/14/24 06/04/25 Rx tablet acetaminophen 500 mg tablet 500 mg PO Q4 PRN Pain 05/30/25 06/04/25 History albuterol sulfate 2.5 mg/3 mL 2.5 mg inhalation Q4H PRN as 05/30/25 06/04/25 History (0.083 %) solution for nebulization directed albuterol sulfate 90 mcg/actuation 2 puff inhalation Q6 PRN wheezing 05/30/25 06/04/25 History aerosol inhaler or cough duloxetine 30 mg capsule,delayed 30 mg PO AMPM 05/30/25 06/04/25 History release fluticasone fur. 100 mcg-umeclid 1 inh inhalation QAM 05/30/25 06/04/25 History 62.5 mcg-vilant 25 mcg inhalat.powder (Trelegy Ellipta) hydrocodone 5 mg-acetaminophen 325 1 tab PO TID PRN Pain 05/30/25 06/04/25 History mg tablet ondansetron HCl 4 mg tablet 4 mg PO Q6H PRN Nausea 05/30/25 06/04/25 History ranolazine 500 mg tablet,extended 500 mg PO AMHS 05/30/25 06/04/25 History release,12 hr Patient History Medical History Hx of carotid artery stenosis (2012) "s/p EDITH stent placement 08/23/2013; Dr. Chen" Expressive aphasia due to hx cva Hx of fracture mulitple, due to falls thoracic compression, right iliac wing, right and left inferior and superior pubic ramus, left ankle, sacral Osteoarthritis Hx of non-ST elevation myocardial infarction (NSTEMI) cardiac cath x3 2009 - [facility] - [facility] -no stents 2016- [facility], no mi, no stents 2017 - attempted 3rd, had partial aortic dissection, [facility] at [place], no surgery - follows with cardio dr. larson (~ 2months) Chronic pain CAD (coronary artery disease) "S/p attempted PCI of a FLIGHT OPERATIONS COORDINATOR of right coronary artery, procedure aborted due to small localized focal dissection of aortic root in Jun 2017" Dyspnea on exertion Hx of falling Hx of urethral stricture (12/2023) hx green light procedure, no issues since Hx of colonic polyps History of difficult intubation per , alexy, "they told me he is hard to intubate because it is hard to get his mouth open." unable to elaborate on what doctors told her this Seizure disorder last seizure approx. 2 years ago "grand mal" - controlled on meds - follows with dr. sharma History of CVA in adulthood (2017) 2013 and 2017- has expressiva aphashia, no movement of right side, drags right foot when ambulating, right arm is contracted, follows with neuro Dr. Sh[facility] Bacteremia hx - after pelvic fracture - had picc line abx at home Hyponatremia Hypertension History of aortic dissection (2016) during cardiac cath 2016, [facility] Tobacco use disorder Alcohol use disorder Left thalamic infarction "July 2017" Diabetes mellitus, type II no longer takes metformin COPD (chronic obstructive pulmonary disease) sob with exertion Statin intolerance ASCVD (arteriosclerotic cardiovascular disease) Classic migraine gets weekly Dyslipidemia GERD (gastroesophageal reflux disease) Depression Surgical History Hx of right cataract extraction (08/09/24) History of bronchoscopy History of bladder surgery (12/2023) "green light procedure" - dr. michel lees, no longer has to self-cath Hx of colonoscopy with polypectomy History of open reduction and internal fixation (ORIF) procedure left ankle, due to fall, has screws and plates Hx of cardiac catheterization (2016) x3 2009 - [facility] - [facility] -no stents 2016- [facility], no mi, no stents 2017 - attempted 3rd, had partial aortic dissection, s at [place], no surgery - follows with cardio dr. larson (~ 2months) History of carotid endarterectomy (2012) [facility], right carotid stent, had stroke Hx of kyphoplasty (2015) History of repair of right rotator cuff Hx of bilateral hip replacements Hx of tonsillectomy Family History Son Spherocytosis Other Heart disease Social History Smoking Status: Current every day smoker Tobacco Type: Cigarettes Cigarettes Per Day: 1/2 pack; Second Hand Exposure: No; Do You Dip or Chew Tobacco: No; Tobacco Cessation Education Requested by Patient: No Hx Alcohol Use: Yes Alcohol type: beer Alcohol Intake Frequency: 4 or More x per/Week Alcohol Intake Frequency Comment: 5-6 beers/day Hx Substance Use: No Preferred Language: Mongolian Communication Ability: Effective Communication Ability Comment: aphasia/previous cva Senior Medical Billing Specialist Required: No Beliefs That Will Affect Care: None marital status: Current Living Situation: Spouse Current Living Situation Comment: How many Children do You have: 3 Other Information That Helps Us Care for You: No Feels Safe at Home: Yes Safety Concerns: Feels Safe At This Time Assistive Devices: None Review of Systems Review of Systems: All systems reviewed & are unremarkable except as noted in HPI & below Physical Exam Constitutional: WD/WN, vitals as above + obese; no acute distress Neck: trachea midline, no thyromegaly Respiratory: normal respiratory effort; no labored breathing and no cough Auscultation: + diminished lung sounds; no crackles and no rales Cardiovascular: Rate/Rhythm: regular rate and regular rhythm Heart Sounds: normal S1 and normal S2; no murmur Vessels: no JVD Extremities: no edema Gastrointestinal (Abdomen): normal bowel sounds, soft, nontender, no hepatosplenomegaly Neurologic: PERRL, EOMI, accommodation nl, no face palsy, no dysarthria Psychiatric: Orientation: alert, oriented to person and oriented to place Results & Data Vital Signs (Past 12 Hours) Vital Signs Temp Pulse Pulse Resp BP Pulse Ox O2 Del Method 06/07/25 10:33 36.5 C 85 21 189/83 H 99 Nasal Cannula 06/07/25 10:00 174/78 H 06/07/25 09:00 Nasal Cannula 06/07/25 08:00 82 06/07/25 07:52 36.6 C 86 24 185/86 H 100 Nasal Cannula 06/07/25 03:31 36.3 C L 81 18 156/86 H 92 Nasal Cannula O2 Flow Rate 06/07/25 10:33 3 06/07/25 10:00 06/07/25 09:00 4 06/07/25 08:00 06/07/25 07:52 3 06/07/25 03:31 4 Laboratory Results Cardiac Enzymes 06/07/25 Range/Units 08:40 AST 32 (13-39) U/L CBC 06/07/25 Range/Units 08:40 WBC 10.51 (4.8-10.8) K/ul RBC 3.85 L (4.70-6.10) M/uL Hgb 12.6 L (14.0-18.0) g/dl Hct 36.5 L (42.0-52.0) % Plt Count 351 (130-400) K/uL Neut # (Auto) 8.27 H (1.40-6.50) K/uL Lymph # (Auto) 1.01 L (1.20-3.40) K/uL [place] # (Auto) 0.83 H (0.11-0.59) K/uL Eos # (Auto) 0.07 (0.00-0.50) K/uL Baso # (Auto) 0.07 (0.00-0.20) K/uL Comprehensive Metabolic Panel 06/07/25 Range/Units 08:40 Sodium 132 L (136-145) mmol/L Potassium 4.6 (3.5-5.1) mmol/L Chloride 95 L (98-107) mmol/L Carbon Dioxide 28 (21-32) mmol/L BUN 14 (6-23) mg/dl Creatinine 0.65 D (0.6-1.4) mg/dl Glucose 122 H (70-99(Fasting)) mg/dl Calcium 9.7 (8.6-10.3) mg/dl AST 32 (13-39) U/L ALT 18 (7-52) U/L Alkaline Phosphatase 73 (34-104) U/L Total Protein 7.5 (6.0-8.3) gm/dl Albumin 3.3 L (3.4-5.0) gm/dl Intake and Output 06/06/25 06/07/25 06/07/25 22:59 06:59 14:59 Intake Total 100 / 200 100 / 200 Output Total 500 / 1550 650 / 1550 Balance -400 / -1350 -550 / -1350 Intake: IV 100 / 200 100 / 200 Acetaminophen 1,000 mg In 100 100 / 200 100 / 200 ml @ 400 mls/hr IV Q6 PRN Rx#: [id number] Output: Urine Amount (Catheter) 500 / 1550 650 / 1550 Morgan/Indwelling 500 / 1550 650 / 1550 Other: Other Intake Source NPO Weight 98.2 kg Weight Measurement Method Built in [facility] Diagnostic Findings Telemetry reviewed: NSR in the 70-80's. No arrhythmias. EKG reviewed from admission 06/04/25 NSR Non specific T wave abnormality in lateral leads No significant change from previous Prior outside data reviewed: Echo reviewed from February 2024: Normal LVEF at 60-65% Mild concentric LVH LV wall motion is normal Grade I diastolic dysfunction mild AI echo reviewed from Jun 2023 at [place]: Normal LVEF at 55-60% Mild concentric LVH No regional wall motion abnormalities Grade I diastolic dysfunction. Cath report reviewed from 05/2017: Comments: RCA: pRCA:100% FLIGHT OPERATIONS COORDINATOR, with robust collateral from LAD LAD: pLAD, mLAD both have 50% stenotic lesions LVEDP: 19 mmHg Repeat cath in 06/2017: Comments: Investment procedure in retrograde PCI of a proximal RCA FLIGHT OPERATIONS COORDINATOR Via left circumflex collateral to the RPL. Focal dissection of the aortic root without hemodynamic compromise Medications Administered Current Inpatient Medications Acetaminophen (Acetaminophen 325 Mg Tab) 650 mg PO Q4H PRN PRN Reason: Fever/Mild Pain (Pain 1,2,3) Stop: 07/04/25 15:14 Albuterol (Albuterol Hfa 8 Gm Inhaler) 2 puffs INH Q6 PRN PRN Reason: wheezing or cough Stop: 07/04/25 18:33 Albuterol (Albut/Ipratrop 3mg/0.5mg Neb 3 Ml Vial) 3 ml NEB Q6R PRN; Protocol PRN Reason: Shortness Of Breath Stop: 07/06/25 11:51 Amlodipine Besylate (Amlodipine Besylate 5 Mg Tab) 5 mg PO TODAY@2100 [facility] Stop: 07/04/25 20:59 Last Admin: 06/06/25 20:42 Dose: Not Given Amlodipine Besylate (Amlodipine Besylate 5 Mg Tab) 2.5 mg PO TODAY@0900 [facility] Stop: 07/05/25 08:59 Last Admin: 06/07/25 08:44 Dose: Not Given Aspirin (Aspirin 81 Mg Ectab) 81 mg PO QAM [facility] Stop: 07/05/25 08:59 Last Admin: 06/07/25 08:44 Dose: Not Given Bisacodyl (Bisacodyl 10 Mg Supp) 10 mg [place] DAILY PRN PRN Reason: Constipation Stop: 07/04/25 15:14 Clopidogrel Bisulfate (Clopidogrel Bisulfate 75 Mg Tab) 75 mg PO QAM [facility] Stop: 07/05/25 08:59 Last Admin: 06/07/25 08:44 Dose: Not Given Duloxetine HCl (Duloxetine Hcl 30 Mg Cap) 30 mg PO BID [facility] Stop: 07/04/25 20:59 Last Admin: 06/07/25 08:44 Dose: Not Given Enoxaparin Sodium (Enoxaparin Inj 40 Mg/0.4 Ml Syr) 40 mg SQ Q24H [facility] Stop: 07/05/25 08:59 Last Admin: 06/07/25 08:17 Dose: 40 mg Finasteride (Finasteride 5 Mg Tab) 5 mg PO QPM [facility] Stop: 07/04/25 20:59 Last Admin: 06/06/25 20:42 Dose: Not Given Fluticasone Furoate (Fluticasone Furoate 100mcg 14 Puffs/Inhaler) 1 puffs INH DAILY [facility] Stop: 07/05/25 08:59 Last Admin: 06/07/25 09:23 Dose: 1 puffs Hydromorphone HCl (Hydromorphone Inj 0.5 Mg/0.5 Ml Syr) 0.5 mg IV Q3H PRN PRN Reason: Moderate Pain (4,5,6) on NRS Stop: 06/18/25 15:14 Hydromorphone HCl (Hydromorphone Inj 1 Mg/Ml Syringe) 1 mg IV Q3H PRN PRN Reason: Severe Pain (7,8,9,10) on NRS Stop: 06/18/25 15:14 Last Admin: 06/06/25 15:32 Dose: 1 mg Lorazepam 2 mg/ Syringe 2 mls @ 2 mls/min IV Q5M PRN PRN Reason: seizure Lorazepam 1 mg/ Syringe 1 mls @ 2 mls/min IV UD PRN; Protocol PRN Reason: EtOH Withdrawal AWSS Score 6,7 Stop: 07/05/25 14:46 Lorazepam 2 mg/ Syringe 2 mls @ 2 mls/min IV UD PRN; Protocol PRN Reason: EtOH Withdrawal AWSS Score 8,9 Stop: 07/05/25 14:46 Lorazepam 3 mg/ Syringe 3 mls @ 2 mls/min IV ONCE PRN; Protocol PRN Reason: EtOH Withdrawal AWSS Score 10+ Acetaminophen (Ofirmev) 1,000 mg in 100 mls @ 400 mls/hr IV Q6 PRN PRN Reason: pain Stop: 06/09/25 17:23 Last Infusion: 06/07/25 01:31 Dose: Infused Isosorbide Mononitrate (Isosorbide [place] Extended Rel 30 Mg Tabcr) 90 mg PO QAM [facility] Stop: 07/05/25 08:59 Last Admin: 06/07/25 08:44 Dose: Not Given Levetiracetam (Levetiracetam 500 Mg Tab) 500 mg PO QAM [facility] Stop: 07/05/25 08:59 Last Admin: 06/06/25 08:51 Dose: 500 mg Levetiracetam (Levetiracetam 500 Mg Tab) 1,000 mg PO [facility] Stop: 07/04/25 20:59 Last Admin: 06/05/25 21:01 Dose: 1,000 mg Levetiracetam (Levetiracetam 500 Mg/5 Ml Vial) 500 mg IV DAILY [facility] Stop: 07/07/25 08:59 Last Admin: 06/07/25 08:18 Dose: 500 mg Levetiracetam (Levetiracetam 500 Mg/5 Ml Vial) 1,000 mg IV HS [facility] Stop: 07/06/25 20:59 Last Admin: 06/06/25 21:13 Dose: 1,000 mg Lorazepam (Lorazepam 1 Mg Tab) 1 mg PO ONE PRN; Protocol PRN Reason: EtoH Withdrawal AWSS 6,7,8,9,10 Magnesium Hydroxide (Magnesium Hydroxide Susp 30 Ml Udc) 30 ml PO Q12H PRN PRN Reason: Constipation Stop: 07/04/25 16:16 Metoprolol Succinate (Metoprolol Succ 25mg Ext Rel Tab) 12.5 mg PO HS [facility] Stop: 07/04/25 20:59 Last Admin: 06/06/25 20:42 Dose: Not Given Metoprolol Succinate (Metoprolol Succ 25mg Ext Rel Tab) 25 mg PO QAM [facility] Stop: 07/05/25 08:59 Last Admin: 06/07/25 08:44 Dose: Not Given Miscellaneous (Remove Nicoderm Patch) 1 each N/A DAILY@0859 [facility] Stop: 07/05/25 08:58 Last Admin: 06/07/25 08:17 Dose: Not Given Naloxone HCl (Naloxone Hcl 0.4 Mg/1 Ml Vial/Carp) 0.1 mg IV UD PRN PRN Reason: Opiate Overdose Stop: 07/04/25 15:14 Nicotine (Nicotine 21 Mg/24 Hr Tdsy) 1 patch TD QAM [facility] Stop: 07/04/25 18:14 Last Admin: 06/07/25 08:18 Dose: Not Given Nitroglycerin (Nitroglycerin Sl 0.4 Mg/Tab Tab) 0.4 mg SL Q5M PRN PRN Reason: Chest Pain Ondansetron HCl (Ondansetron Inj 2 Mg/Ml 2 Ml Vial) 4 mg IV Q6H PRN PRN Reason: Nausea Stop: 07/04/25 16:16 Last Admin: 06/05/25 14:51 Dose: 4 mg Ondansetron HCl (Ondansetron 4 Mg Od Tab) 4 mg PO Q6H PRN PRN Reason: Nausea Stop: 07/04/25 18:54 Pantoprazole Sodium (Pantoprazole 40 Mg Tab) 40 mg PO Q48H [facility] Stop: 07/04/25 18:59 Last Admin: 06/06/25 20:42 Dose: Not Given Polyethylene Glycol (Polyethylene (Miralax) 17 Gm Pack) 17 gm PO DAILY PRN PRN Reason: Constipation Stop: 07/04/25 16:16 Potassium Chloride (Potassium Chloride Crtab 20 Meq Tabcr) 20 meq PO BID [facility] Stop: 06/07/25 12:00 Last Admin: 06/07/25 08:45 Dose: Not Given Ranolazine (Ranolazine 500 Mg Er Tab) 500 mg PO AMHS [facility] Stop: 07/04/25 20:59 Last Admin: 06/07/25 08:45 Dose: Not Given Thiamine HCl (Thiamine Hcl 100 Mg Tab) 100 mg PO QAM [facility] Stop: 07/05/25 08:59 Last Admin: 06/07/25 08:45 Dose: Not Given Umeclidinium/Vilanterol (Umeclidinium/Vilanterol 62.5/25mcg 7 Puffs/Inhaler) 1 puffs INH DAILY [facility] Stop: 07/05/25 08:59 Last Admin: 06/07/25 09:23 Dose: 1 puffs Vitamin D (Cholecalciferol 25 Mcg (1000 Units) Tab) 50 mcg PO QAM [facility] Stop: 07/05/25 08:59 Last Admin: 06/07/25 08:44 Dose: Not Given PG Care Time/CCT Total # of Minutes Spent Total Time Spent with Patient: Total time spent is greater than 50% in coordination of care (as documented) at patient's floor/unit and/or counseling patient: 60 minutes Coding Level of Care Code 32567 INT INP/OBS CARE 3/75MIN Diagnoses Basilia-prosthetic subtrochanteric femur fracture M97.8XXA; Z96.649 Alcohol withdrawal delirium F10.931 Preop cardiovascular exam Z01.810 Coronary artery disease of kaw artery of kaw heart with stable angina pectoris I25.118 Coronary Disease-Associated Artery/Lesion type: kaw artery [place] vs. transplanted heart: kaw heart Essential hypertension I10 Hypertension type: essential hypertension (4) Coronary artery disease with stable angina pectoris Coronary Disease-Associated Artery/Lesion type: kaw artery [place] vs. transplanted heart: kaw heart Qualified Code(s): I25.118 - Atherosclerotic heart disease of kaw coronary artery with other forms of angina pectoris (5) Hypertension Hypertension type: essential hypertension Qualified Code(s): I10 - Essential (primary) hypertension
--- NOTE | 2025-06-07 11:12 | Orthopedic Progress Note ---
Date of Service June 07, 2025 Assessment & Plan (1) Basilia-prosthetic subtrochanteric femur fracture: * Case/imaging reviewed and discussed with Dr Benavidez * Medically complex patient, not ideal surgical candidate * May benefit from cable fixation pending ambulation * Recommend trial of ambulation/PWB with PT to attempt transfer, get to chair, etc * If unable to ambulate will need further discussion of possible OR, medical clearance, etc. * Will attempt ambulation following improvement of withdrawal, and would need to optimize for OR if needed * Weight bearing status: PWB RLE * Daily treatment: Physical Therapy/ Occupational Therapy per protocol * Pain control * Disposition: TBD * Remainder care per primary team * Will continue to follow and update plan as available (2) Closed right hip fracture: Subjective .Active Problems: Periprosthetic right proximal femur fracture 69 y/o male with Periprosthetic right proximal femur fracture. Currently going through alcohol withdrawal. Limited ambulation trial yesterday, unable to stand from bed, will attempt again later today. Currently NPO for swallow study. Continued right hip/thigh pain, improved at rest. Denies fever/chills, chest pain/SOB, nausea/vomiting. Otherwise no complaints. Review of Systems All systems reviewed & are unremarkable except as noted in HPI & below. Physical Exam * Musculoskeletal: Right hip with well healed surgical incision, no skin breakdown or dehiscence. Otherwise no deformity or overlying skin change to RLE. Mild TTP proximal thigh/anterior hip region. Otherwise no specific tenderness of the right lower extremity. Pain with log roll, Limited AROM hip flexion due to pain. AROM knee flexion/extension intact. Sensation intact plantar/dorsal foot. Brisk capillary refill. Results & Data Results & Data Laboratory Results . Diagnostic Findings . PG Care Time/CCT Total # of Minutes Spent Total Time Spent with Patient: Total time spent is greater than 50% in coordination of care (as documented) at patient's floor/unit and/or counseling patient: Coding Level of Care Code 80804 SUB INP/OBS CARE 2/35MIN Diagnoses Basilia-prosthetic subtrochanteric femur fracture M97.8XXA; Z96.649 Closed right hip fracture S72.001A
--- NOTE | 2025-06-08 09:05 | Orthopedic Progress Note ---
Date of Service June 08, 2025 Assessment & Plan (1) Basilia-prosthetic subtrochanteric femur fracture: * Case/imaging reviewed and discussed with Dr Benavidez * Continued pain and limited mobility with PT * Discussed with Dr Benavidez, will tentatively plan for OR tomorrow 06/09 for cable fixation * Appreciate cardiology consult and OR risk stratification * NPO midnight * Please hold Xarelto * Weight bearing status: PWB RLE * Daily treatment: Physical Therapy/ Occupational Therapy per protocol * Pain control * Disposition: TBD * Remainder care per primary team * Will continue to follow and update plan as available. Dr Benavidez to discuss with family today. Subjective Active Problems: Periprosthetic right proximal femur fracture 69 y/o male with Periprosthetic right proximal femur fracture. Limited ambulation trial yesterday, some short ambulation around the room with heavy assistance. Evaluated by INVESTMENT UNDERWRITER team yesterday, no further workup. Cardiology consult yesterday for OR risk stratification, Echo pending. Continued right hip/thigh pain, improved at rest. Denies fever/chills, chest pain/SOB, nausea/vomiting. Otherwise no complaints. Review of Systems All systems reviewed & are unremarkable except as noted in HPI & below. Physical Exam * Musculoskeletal: Right hip with well healed surgical incision, no skin breakdown or dehiscence. Otherwise no deformity or overlying skin change to RLE. Mild TTP proximal thigh/anterior hip region. Otherwise no specific tenderness of the right lower extremity. Pain with log roll, Limited AROM hip flexion due to pain. AROM knee flexion/extension intact. Sensation intact plantar/dorsal foot. Brisk capillary refill. Results & Data Results & Data Laboratory Results . Diagnostic Findings . PG Care Time/CCT Total # of Minutes Spent Total Time Spent with Patient: Total time spent is greater than 50% in coordination of care (as documented) at patient's floor/unit and/or counseling patient: Coding Level of Care Code 97156 SUB INP/OBS CARE 235MIN Diagnoses Basilia-prosthetic subtrochanteric femur fracture M97.8XXA; Z96.649
--- NOTE | 2025-06-08 11:08 | Hospitalist Progress Note ---
Date of Service June 08, 2025 Assessment & Plan (1) Fall: (2) Closed right hip fracture: (3) Type 2 diabetes mellitus with hyperglycemia: (4) Alcohol use disorder, moderate, dependence: (5) Seizure disorder: (6) Hx of carotid artery stenosis: (7) Alcohol withdrawal delirium: Plan 69-year-old male with a history of alcohol abuse, tobacco abuse, CAD with angina at rest and with exertion with a dissection at last attempted cardiac catheterization reportedly no longer Candidate, seizures unrelated to alcohol use well-controlled on Keppra for the last year, chronic hyponatremia with SIADH who presented after a fall which resulted in a hip fracture. He denies head strike/loss of consciousness which either led to his fall or due to his fall; however due to his inability to bear weight he reports he did fall asleep on the floor after falling. said Fall, trauma Periprostetic Hip Fx Fall 1 day prior to admission suspect around 2 PM occurred in the setting of drinking alcohol. He denied syncope/presyncope, head strike, loss of consciousness however notes he could not stand due to hip pain and so fell asleep on the floor Continued to have pain after being assisted to bed, present to the ER 06/04 was found to have a periprosthetic hip fracture CTC-spine: No acute fracture/subluxation. Severe degenerative changes and multilevel central canal/neural for aminal stenosis is noted. CThead: No intracranial bleed/acute findings. Large area of encephalomalacia of the left frontal lobe stable likely sequelae of prior infarct. CTA/P: Acute pancreatitis. Acute periprosthetic fracture of the right proximal femur. 0.3 cm right middle lobe nodule not requiring follow-up per Fleischner criteria. As patient is a smoker could have 12-month chest CT follow-up. No solid organ injury is noted EKG: Normal sinus rhythm. Inverted T waves have replaced nonspecific T waves in inferior leads compared to prior. No acute territorial ST segment changes. Admitted following trauma alert. Tertiary survey unremarkable - See orthos notes - Appreciate CV recs in regards to operative risk and BABITA. - Unable to bear weight with PT yesterday, continuing mental clarity, improving functional status, disposition pending his response and participation with PT - overall poor surgical candidate based on cardiovascular risk Alcohol Withdrawal with delerium Alcohol abuse mild to moderate withdrawal symptoms, TIKA protocol initiated. Medications administered x 2. - Continue PCO given history of trauma. No evidence of closed head injury. Prior CT negative. 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 CAD, daily angina at rest and w/ exertion, per cards not a cardiac cath/interventional candidate; hypertension History of cardiac cath /2016, attempted PCI of [employer] of right coronary aborted due to small focal dissection in 2016 [place] [facility] [place] Records pending. At his last attempted PCI he had a dissection. Per discussion with pediatric critical care nurse at that time was told cath should never be attempted due to his extremely high risk and he would need medical management moving forward. Additionally he is exceptionally high surgical risk due to his underlying CAD TTE 02/2024: LVEF 60 to 65%, grade 1 diastolic dysfunction, stable from prior study. Mild AR Metoprolol continued Ranolazine continued DAPT continued Isosorbide mononitrate 90 mg continued Amlodipine continued Cardiology note review 12/30/2024 with SUNNY Dinh: Noted to have CAD [place] artery of [place] heart with stable angina at that time. Complex coronary disease not amenable to PCI. Recommended to continue amlodipine/metoprolol/Plavix/Imdur/aspirin. Started on Ranexa. Recommended to continue every 6 month follow-up. At time of the cardiology note had continued to endorse chest pain daily with both rest and exertion, generally last throughout the day varying in intensity and eventually resolving and sometimes associated with shortness of breath. Ranexa added as noted and continued on medical management as he was not a cath candidate. Also of note he was statin intolerant, and also intolerant of fenofibrate. He was noncompliant with Praluent - He would be high risk to hold plavix, once he clears will discuss mgmt with heparin if plavix can be held. - he is much more likely to need a complete procedure on the hip at this point. Will consult to cardiology for periprocedural antiplatelet management History of seizures Reported grand mal seizure in the past, reportedly unrelated to alcohol use [facility] [place] as noted in HPI Reports no seizures since his Keppra was increased about 1 year ago Seizure precautions Alcohol management as otherwise noted CVA 2013/2016 with CVA resulting expressive aphasia, right hemiparesis, right foot drop/drag, and right arm contraction Per patient and family his right arm and right leg strength improved after 2017 although is still qualitatively weaker than his left and sometimes limits him. No recent change in strength prior to his fall Follows with Dr. Evans /neurology CT with large left frontal area of encephalomalacia likely related to his prior stroke Aspirin/Plavix continued. see CAD above Type II DM -Reports now diet controlled last A1c within goal Daily BMP, if greater than 180 then add basal bolus with goal 147103 COPD Chronic. Reports he has daily wheezing but this has not changed recently. Trelegy/formulary equivalent Scattered slight wheezing on admission. No cough or increased sputum production suggestive of acute exacerbation GERD PPI Tobacco abuse 1 pack/day Nicotine patch ordered Recent pancreatitis, clinically improved Lipase level 105, resolving Patient did recently recover from acute pancreatitis. CT likely with residual changes from this however he has continued to drink alcohol and is at risk of further flaring this. He reports that when he was drinking yesterday this does not cause increased pain, he is hungry and with a good appetite, and his meals yesterday did not cause him any discomfort. Clinically does not show signs of recurrent acute/chronic pancreatitis on admission DVT prophylaxis: Lovenox added 2/2 trauma with nonoperative management at increased risk of VTE. No signs of ICH, hemoglobin is stable 24 hours out from fall CODE STATUS: DNR/DNI Diet: Heart healthy, fluid restricted Disposition: Admit to telemetry given combination of trauma, seizure risk, hyponatremia, and acute fracture with history of alcohol dependence and chronic CAD with daily. Admission and Anticipated Discharge Date Admission Date: June 04, 2025 Subjective Doing much better this morning. More awake and alert. He does have good recall of what he had for breakfast. Did have better recall of visitors yesterday. Still reporting the hip pain. Recalls working with PT and OT and states that it did not go all that well. Otherwise no new complaints or concerns. No shortness of breath no problems with bowel or bladder function. No events or concerns per nursing staff Physical Exam Physical Exam: General: A&Ox3. NAD. Eyes closed at rest but open to voice HEENT: Atraumatic, normocephalic. Pupils equal and reactive to light. Vision and hearing grossly intact. Poor dentition, several missing teeth. No midline cervical neck tenderness Pulm: CTAB A&P. Scattered slight expiratory rales without wheezes/rhonchi. Symmetrical chest rise. No increased work of breathing. No respiratory distress. Cardiac: RRR, soft sm. Radial pulses intact and symmetrical. Abdominal: Nontender, nondistended, soft. BS present. Extremities: Very tender to palpation overlying the lateral and anterior right hip. no visible deformity, bruising or malalignment Neuro: no tremor, mild confusion as above. Oriented to self only. No dysmetria or dysarthria. Results & Data Results & Data Vital Signs (Past 12 Hours) Vital Signs Temp Pulse Pulse Resp BP Pulse Ox Pulse Ox 06/08/25 10:27 36.8 C 70 19 127/60 94 06/08/25 08:08 36.7 C 78 20 158/79 H 92 06/08/25 07:36 73 06/08/25 07:00 95 06/08/25 04:00 36.7 C 70 20 159/82 H 95 06/08/25 00:00 95 06/08/25 00:00 36.8 C 72 24 147/72 H 95 O2 Del Method O2 Del Method 06/08/25 10:27 Room Air 06/08/25 08:08 Room Air 06/08/25 07:36 06/08/25 07:00 Room Air 06/08/25 04:00 Room Air 06/08/25 00:00 Room Air 06/08/25 00:00 PG Care Time/CCT Total # of Minutes Spent Total Time Spent with Patient: Total time spent is greater than 50% in coordination of care (as documented) at patient's floor/unit and/or counseling patient: Coding Level of Care Code 05469 SUB INP/OBS CARE 2/35MIN Diagnoses Fall W19.XXXA Closed right hip fracture S72.001A Type 2 diabetes mellitus with hyperglycemia, without long-term current use of insulin E11.65 Diabetes mellitus termination clerk insulin use: without half-way use Alcohol use disorder, moderate, dependence F10.20 Seizure disorder G40.909 Hx of carotid artery stenosis Z86.79 Alcohol withdrawal delirium F10.931 (3) Type 2 diabetes mellitus with hyperglycemia Diabetes mellitus termination clerk insulin use: without termination clerk use Qualified Code(s): E11.65 - Type 2 diabetes mellitus with hyperglycemia
[2025-06-09] MEDS ORDERED: BUPIVACAINE 0.5 % 5 MG/1 ML PF 10ML VIAL ONE (06:13)
[2025-06-09 06:29] LABS: Hematocrit (blood only) 33.4 % (42.0-52.0); Hemoglobin 11.6 g/dl (14.0-18.0); Immature Granulocytes # (auto) 0.37 K/uL (0.01-0.20); Immature Granulocytes % (auto) 3.8 %; Mean Corpuscular Hemoglobin 32.9 pg (25.0-34.0); Mean Corpuscular Volume 94.6 fL (80.0-100.0); Platelet Count 386 K/uL (130-400); RDW Standard Deviation 42.8 fL (36.4-46.3); Red Blood Count 3.53 M/uL (4.70-6.10); White Blood Count 9.84 K/ul (4.8-10.8)
--- NOTE | 2025-06-09 06:50 | History & Physical Bridge Note ---
Date of Service June 09, 2025 History & Physical Bridge Note I have examined the patient, reviewed the History & Physical and in the interval since the performance of the History & Physical I have noted the following changes of clinical significance: no changes noted
[2025-06-09 06:52] LABS: Alanine Aminotransferase 21.0 U/L (7-52); Albumin Globulin Ratio 0.8 (0.9-2); Albumin Level 3.1 gm/dl (3.4-5.0); Alkaline Phosphatase 71.0 U/L (34-104); Anion Gap 10.0 (3-11); Bilirubin,Total 0.7 mg/dl (0.2-1.0); Blood Urea Nitrogen 12.0 mg/dl (6-23); Calcium 9.4 mg/dl (8.6-10.3); Carbon Dioxide 27.0 mmol/L (21-32); Chloride 95.0 mmol/L (98-107); Creatinine Clr Calc Pharmacy 109.5 ml/min; Globulin 3.9 gm/dl (2.5-4.0); Glucose 99.0 mg/dl (70-99(Fasting)); Magnesium 1.7 mg/dl (1.7-2.4); Potassium 4.2 mmol/L (3.5-5.1); Sodium 132.0 mmol/L (136-145); Total Protein 7.0 gm/dl (6.0-8.3)
[2025-06-09] MEDS ORDERED: ETOMIDATE 2 MG/ML 20 ML VIAL IV ONE (07:56)
[2025-06-09] MEDS ORDERED: SODIUM CHLORIDE 0.9% 100 ML IV PRN (08:44)
--- NOTE | 2025-06-09 08:49 | Anesthesiology Consultation ---
Date of Service June 09, 2025 Assessment & Plan Chart Review Chart Review: Acceptable Risk for Surgery and Patient NOT seen in Pre Admission Testing Consults Requested none ASA ASA4 Proposed Anesthesia Anesthesia Type: General Anesthesia Line Insertion: Arterial line Risk / Benefits Reviewed With: PT / POA / Parent / Guardian, Accepts Plan and Informed Consent Obtained History Surgery Operation Date: 06/09/25 08:50 Proposed Procedures p Right Hip Open Reduction Internal Fixation - Patel Benavidez MD Height/Weight Height: 5 ft 11 in Weight: 98.2 kg Allergies Allergy/AdvReac Type Severity Reaction Status Date / Time ciprofloxacin Allergy Severe hives Verified 05/30/25 17:36 simvastatin AdvReac Intermediate MUSCLE Verified 05/30/25 17:36 PAIN/WEAKNESS Sutzvxx-JED-PzY Reductase AdvReac Intermediate MUSCLE Verified 05/30/25 17:36 Inhibitor PAIN/WEAKNESS [Rzaximo-Yuw-Rbg Reductase Inhibitor] Medications Home Medications Medication Instructions Recorded Confirmed Last Taken clopidogrel 75 mg tablet 75 mg PO QAM ##0 06/14/15 06/04/25 06/12/24 nitroglycerin 0.4 mg sublingual 0.4 mg sublingual DIRECTED PRN 04/18/18 06/04/25 07/09/23 11:30 tablet Chest Pain ##0 aspirin 81 mg tablet,delayed 81 mg PO QAM 10/02/18 06/04/25 06/12/24 release cholecalciferol (vitamin D3) 50 50 mcg PO QAM 11/27/22 06/04/25 06/12/24 mcg (2,000 unit) capsule (Vitamin D3) finasteride 5 mg tablet 5 mg PO QPM 11/27/22 06/04/25 06/12/24 omeprazole 20 mg capsule,delayed 20 mg PO Q OTHER DAY 11/27/22 06/04/25 03/13/24 release lasmiditan 50 mg tablet (Reyvow) 50 mg PO DIRECTED PRN Migraine 07/09/23 06/04/25 Unknown Headache amlodipine 5 mg tablet 5 mg PO UD 06/12/24 06/04/25 09/01/24 isosorbide mononitrate 30 mg 90 mg PO QAM 06/12/24 06/04/25 09/01/24 tablet,extended release 24 hr levetiracetam 500 mg tablet 1,000 mg PO HS 1006/04/25 06/11/24 levetiracetam 500 mg tablet 500 mg PO QAM 06/12/24 06/04/25 09/01/24 (Keppra) metoprolol succinate 25 mg 12.5 mg PO HS 06/12/24 06/04/25 06/11/24 tablet,extended release 24 hr metoprolol succinate 25 mg 25 mg PO QAM 06/12/24 06/04/25 09/01/24 tablet,extended release 24 hr thiamine HCl (vitamin B1) 100 mg 100 mg PO QAM #30 tabs 06/14/24 06/04/25 Unknown tablet acetaminophen 500 mg tablet 500 mg PO Q4 PRN Pain 05/30/25 06/04/25 Unknown albuterol sulfate 2.5 mg/3 mL 2.5 mg inhalation Q4H PRN as 05/30/25 06/04/25 Unknown (0.083 %) solution for nebulization directed albuterol sulfate 90 mcg/actuation 2 puff inhalation Q6 PRN wheezing 05/30/25 06/04/25 Unknown aerosol inhaler or cough duloxetine 30 mg capsule,delayed 30 mg PO AMPM 05/30/25 06/04/25 Unknown release fluticasone fur. 100 mcg-umeclid 1 inh inhalation QAM 05/30/25 06/04/25 Unknown 62.5 mcg-vilant 25 mcg inhalat.powder (Trelegy Ellipta) hydrocodone 5 mg-acetaminophen 325 1 tab PO TID PRN Pain 05/30/25 06/04/25 Unknown mg tablet ondansetron HCl 4 mg tablet 4 mg PO Q6H PRN Nausea 05/30/25 06/04/25 Unknown ranolazine 500 mg tablet,extended 500 mg PO AMHS 05/30/25 06/04/25 Unknown release,12 hr Active Medications Generic Name Dose Route Start Last Admin Trade Name Freq PRN Reason Stop Dose Admin Amlodipine Besylate 5 mg 06/04/25 21:00 06/08/25 20:44 Amlodipine Besylate 5 Mg Tab PO 07/04/25 20:59 5 mg TODAY@2100 BRIAN Administration Amlodipine Besylate 2.5 mg 06/05/25 09:00 06/09/25 07:50 Amlodipine Besylate 5 Mg Tab PO 07/05/25 08:59 2.5 mg TODAY@0900 BRIAN Administration Clopidogrel Bisulfate 75 mg 06/05/25 09:00 06/07/25 08:44 Clopidogrel Bisulfate 75 Mg Tab PO 07/05/25 08:59 Not Given QAM BRIAN Duloxetine HCl 30 mg 06/04/25 21:00 06/09/25 07:57 Duloxetine Hcl 30 Mg Cap PO 07/04/25 20:59 Not Given BID BRIAN Enoxaparin Sodium 40 mg 06/05/25 09:00 06/08/25 09:03 Enoxaparin Inj 40 Mg/0.4 Ml Syr SQ 07/05/25 08:59 40 mg Q24H BRIAN Administration Finasteride 5 mg 06/04/25 21:00 06/08/25 20:44 Finasteride 5 Mg Tab PO 07/04/25 20:59 5 mg QPM BRIAN Administration Fluticasone Furoate 1 puffs 06/05/25 09:00 06/09/25 07:57 Fluticasone Furoate 100mcg 14 Puffs/Inhaler INH 07/05/25 08:59 Not Given DAILY BRIAN Hydromorphone HCl 1 mg 06/04/25 15:15 06/08/25 20:45 Hydromorphone Inj 1 Mg/Ml Syringe IV 06/18/25 15:14 1 mg Q3H PRN Administration Severe Pain (7,8,9,10) on NRS Acetaminophen 1,000 mg in 100 mls @ 400 mls/hr 06/06/25 17:24 06/08/25 01:50 Ofirmev IV 06/09/25 17:23 Infused Q6 PRN Infusion pain Isosorbide Mononitrate 90 mg 06/05/25 09:00 06/09/25 07:57 Isosorbide Metcalfe Extended Rel 30 Mg Tabcr PO 07/05/25 08:59 Not Given QAM BIRAN Levetiracetam 500 mg 06/05/25 09:00 06/06/25 08:51 Levetiracetam 500 Mg Tab PO 07/05/25 08:59 500 mg QAM BRIAN Administration Levetiracetam 1,000 mg 06/04/25 21:00 06/05/25 21:01 Levetiracetam 500 Mg Tab PO 07/04/25 20:59 1,000 mg HS BRIAN Administration Levetiracetam 500 mg 06/07/25 09:00 06/09/25 07:50 Levetiracetam 500 Mg/5 Ml Vial IV 07/07/25 08:59 500 mg DAILY BRIAN Administration Levetiracetam 1,000 mg 06/06/25 21:00 06/08/25 20:44 Levetiracetam 500 Mg/5 Ml Vial IV 07/06/25 20:59 1,000 mg HS BRIAN Administration Metoprolol Succinate 12.5 mg 06/04/25 21:00 06/08/25 20:44 Metoprolol Succ 25mg Ext Rel Tab PO 07/04/25 20:59 12.5 mg HS BRIAN Administration Metoprolol Succinate 25 mg 06/05/25 09:00 06/09/25 07:57 Metoprolol Succ 25mg Ext Rel Tab PO 07/05/25 08:59 Not Given QAM BRIAN Miscellaneous 1 each 06/05/25 08:59 06/09/25 07:56 Remove Nicoderm Patch N/A 07/05/25 08:58 1 each DAILY@0859 BRIAN Administration Nicotine 1 patch 06/04/25 18:15 06/08/25 09:11 Nicotine 21 Mg/24 Hr Tdsy TD 07/04/25 18:14 1 patch QAM BRIAN Administration Ondansetron HCl 4 mg 06/04/25 16:17 06/05/25 14:51 Ondansetron Inj 2 Mg/Ml 2 Ml Vial IV 07/04/25 16:16 4 mg Q6H PRN Administration Nausea Pantoprazole Sodium 40 mg 06/04/25 19:00 06/08/25 18:08 Pantoprazole 40 Mg Tab PO 07/04/25 18:59 40 mg Q48H BRIAN Administration Ranolazine 500 mg 06/04/25 21:00 06/09/25 07:57 Ranolazine 500 Mg Er Tab PO 07/04/25 20:59 Not Given AMHS BRIAN Thiamine HCl 100 mg 06/05/25 09:00 06/09/25 07:57 Thiamine Hcl 100 Mg Tab PO 07/05/25 08:59 Not Given QAM BRIAN Umeclidinium/Vilanterol 1 puffs 06/05/25 09:00 06/09/25 07:58 Umeclidinium/Vilanterol 62.5/25mcg 7 Puffs/Inhaler INH 07/05/25 08:59 Not Given DAILY BRIAN Vitamin D 50 mcg 06/05/25 09:00 06/09/25 07:57 Cholecalciferol 25 Mcg (1000 Units) Tab PO 07/05/25 08:59 Not Given QAM BRIAN NPO Date Last Intake of Fluids: 06/09/25 Time Last Intake of Fluids: 07:45 Last Intake of Fluids Comment: sip with meds Date Last Intake of Solids: 06/08/25 Time Last Intake of Solids: 18:00 Past Medical History Medical History Hx of carotid artery stenosis (2012) "s/p EDITH stent placement 08/23/2013; Dr. Chen" Expressive aphasia due to hx cva Hx of fracture mulitple, due to falls thoracic compression, right iliac wing, right and left inferior and superior pubic ramus, left ankle, sacral Osteoarthritis Hx of non-ST elevation myocardial infarction (NSTEMI) cardiac cath x3 2009 - nstemi - [facility] -no stents 2015- [facility], no mi, no stents 2017 - attempted 3rd, had partial aortic dissection, [facility] [place], no surgery - follows with cardio dr. 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 2 years ago "grand mal" - controlled on meds - follows with dr. sharma History of CVA in adulthood (2017) 2013 and 2017- has expressiva aphashia, no movement of right side, drags right foot when ambulating, right arm is contracted, follows with neuro Dr. Sharma at [facility] Bacteremia hx - after pelvic fracture - had picc line abx at home Hyponatremia Hypertension History of aortic dissection (2016) during cardiac cath 2017, s Tobacco use disorder Alcohol use disorder Left thalamic infarction "July 2017" Diabetes mellitus, type II no longer takes metformin COPD (chronic obstructive pulmonary disease) sob with exertion Statin intolerance ASCVD (arteriosclerotic cardiovascular disease) Classic migraine gets weekly Dyslipidemia GERD (gastroesophageal reflux disease) Depression Exercise / Class Metabolic Activity III < 4 Walking/Shop/Light housework Past Family History Family History Son Spherocytosis Other Heart disease Past Surgical History Surgical History Hx of right cataract extraction (08/09/24) History of bronchoscopy History of bladder surgery (12/2023) "green light procedure" - dr. michel lees, no longer has to self-cath Hx of colonoscopy with polypectomy History of open reduction and internal fixation (ORIF) procedure left ankle, due to fall, has screws and plates Hx of cardiac catheterization (2016) x3 2009 - nstemi - [facility] -no stents 2016- [facility], no mi, no stents 2017 - attempted 3rd, had partial aortic dissection, [facility] [place], no surgery - follows with cardio dr. larson (~ 2months) History of carotid endarterectomy (2012) [facility], right carotid stent, had stroke Hx of kyphoplasty (2015) History of repair of right rotator cuff Hx of bilateral hip replacements Hx of tonsillectomy Past Anesthesia History No Hx of Anesthesia Complications and No Family Hx of Anesthesia Complications History of PONV No Hx of PONV and No Hx of Motion Sickness Social History Smoking Status: Current every day smoker tobacco type: cigarettes Smoking cigarettes per day: 1/2 pack Do You Dip or Chew Tobacco: No Hx Alcohol Use: Yes Alcohol type: beer alcohol intake frequency: 3 or more drinks per day Alcohol Intake Frequency Comment: 10 cans/day Hx Substance Use: No substance use type: does not use Physical Exam Vital Signs Last Vital Signs Temp 36.6 C 06/09/25 08:12 Pulse 70 06/09/25 08:12 Resp 18 06/09/25 08:12 BP 147/72 H 06/09/25 08:12 Pulse Ox 93 06/09/25 08:12 O2 Del Method Room Air 06/09/25 08:12 O2 Flow Rate 4.5 06/07/25 20:00 Constitutional + obese; no acute distress ENMT Mouth: + dentition abnormality, + dental caries, + poor dentition and + loose teeth Thyromental Distance: > or= 3.5 Finger Breadths Mallampati Class: II Neck normal visual inspection, trachea midline and + facial hair; neck extension not limited Respiratory normal respiratory effort Auscultation: + diminished lung sounds Cardiovascular Rate/Rhythm: regular rate and regular rhythm Heart Sounds: no murmur Vessels: no carotid bruit Musculoskeletal Spine: normal cervical ROM and no pain with cervical ROM Extremities: extremities normal to inspection; full ROM of extremities Neurologic moves all extremities Motor/Sensory: no sensory deficit Psychiatric Orientation: alert and oriented x 3 Testing Laboratory Results 06/09/25 05:44 06/09/25 05:44 PT 11.3 Seconds (9.0-12.0) 06/04/25 10:59 INR 1.1 (0.9-1.1) 06/04/25 10:59 APTT 28 Seconds (21-31) 06/04/25 10:59 Blood Type A Positive 06/08/25 20:48 Antibody Screen NEGATIVE 06/08/25 20:48 06/09/25 08:04 POC Glucose 110 H Electrocardiogram Date: 06/04/25 Findings: + NSR @ (@ 86;infer. mi age ?) and + NSST changes Chest X-Ray Date: 06/04/25 Findings: + NAD Echocardiogram Date: 06/07/25 EF: 60% LV cavity small LV Function: normal RWMA: + none Other Findings: + LVH (moderate) and + diastolic dysfunction (Grade 1) Valvular Disease: + no significant valvular disease
[2025-06-09] MEDS ORDERED: NALOXONE HCL 0.4 MG/1 ML VIAL/CARP IV PRN (08:53)
[2025-06-09] MEDS ORDERED: FLUMAZENIL 0.1 MG/1 ML 10 ML VIAL IV PRN (08:53)
[2025-06-09] MEDS ORDERED: ATROPINE SULFATE 0.1 MG/ML 10ML SYR IV PRN (08:53)
[2025-06-09] MEDS ORDERED: HYDROmorphone INJ 1 MG/ML SYRINGE IV PRN (08:53)
[2025-06-09] MEDS ORDERED: PROMETHAZINE HCL 6.25 MG in SODIUM CHLORIDE 0.9% 50 ML IV PRN (08:53)
[2025-06-09] MEDS ORDERED: ONDANSETRON INJ 2 MG/ML 2 ML VIAL IV PRN (08:53)
[2025-06-09] MEDS ORDERED: SUCCINYLCHOLINE CHLORIDE 20 MG/ML 10 ML VIAL IV ONE ×2 (09:18)
[2025-06-09] MEDS ORDERED: MIDAZOLAM HCL 1 MG/ML 2ML VIAL ONE (09:19)
[2025-06-09] MEDS ORDERED: ROCURONIUM BROMIDE 10 MG/ML 5 ML VIAL IV ONE (09:20)
[2025-06-09] MEDS: TRANEXAMIC ACID / 0.7% NACL 1,000 MG/100 ML BAG IV ONE (09:36)
[2025-06-09] MEDS ORDERED: PROPOFOL IV EMULSION 10 MG/ML 20 ML VIAL IV ONE (10:19)
[2025-06-09] MEDS: BUPIVACAINE/EPINEPHRINE 0.5% MPF 1:200,000 30 ML VIAL ONE (10:36)
--- NOTE | 2025-06-09 10:36 | Hospitalist Progress Note ---
Date of Service June 09, 2025 Assessment & Plan (1) Fall: (2) Closed right hip fracture: (3) Type 2 diabetes mellitus with hyperglycemia: (4) Alcohol use disorder, moderate, dependence: (5) Seizure disorder: (6) Hx of carotid artery stenosis: (7) Alcohol withdrawal delirium: Plan 69-year-old male with a history of alcohol abuse, tobacco abuse, CAD with angina at rest and with exertion with a dissection at last attempted cardiac catheterization reportedly no longer Candidate, seizures unrelated to alcohol use well-controlled on Keppra for the last year, chronic hyponatremia with SIADH who presented after a fall which resulted in a hip fracture. He denies head strike/loss of consciousness which either led to his fall or due to his fall; however due to his inability to bear weight he reports he did fall asleep on the floor after falling. said Fall, trauma Periprostetic Hip Fx Fall 1 day prior to admission suspect around 2 PM occurred in the setting of drinking alcohol. He denied syncope/presyncope, head strike, loss of consciousness however notes he could not stand due to hip pain and so fell asleep on the floor Continued to have pain after being assisted to bed, present to the ER 06/04 was found to have a periprosthetic hip fracture CTC-spine: No acute fracture/subluxation. Severe degenerative changes and multilevel central canal/neural for aminal stenosis is noted. CThead: No intracranial bleed/acute findings. Large area of encephalomalacia of the left frontal lobe stable likely sequelae of prior infarct. CTA/P: Acute pancreatitis. Acute periprosthetic fracture of the right proximal femur. 0.3 cm right middle lobe nodule not requiring follow-up per Fleischner criteria. As patient is a smoker could have 12-month chest CT follow-up. No solid organ injury is noted EKG: Normal sinus rhythm. Inverted T waves have replaced nonspecific T waves in inferior leads compared to prior. No acute territorial ST segment changes. Admitted following trauma alert. Tertiary survey unremarkable - See orthos notes - Appreciate CV recs in regards to operative risk and BABITA. - Unable to bear weight with PT yesterday, continuing mental clarity, improving functional status, disposition pending his response and participation with PT - heading to the OR shortly for hip procedure, see Ortho notes Alcohol Withdrawal with delerium Alcohol abuse mild to moderate withdrawal symptoms, TIKA protocol initiated. Medications administered x 2. - Continue PCO given history of trauma. No evidence of closed head injury. Prior CT negative. 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 Records pending. At his last attempted PCI he had a dissection. Per discussion with sponge fisherman at that time was told cath should never be attempted due to his extremely high risk and he would need medical management moving forward. Additionally he is exceptionally high surgical risk due to his underlying CAD TTE 02/2024: LVEF 60 to 65%, grade 1 diastolic dysfunction, stable from prior study. Mild AR Metoprolol continued Ranolazine continued DAPT continued Isosorbide mononitrate 90 mg continued Amlodipine continued Cardiology note review 12/30/2024 with SUNNY Dinh: Noted to have CAD [place] artery [place] with stable angina at that time. Complex coronary disease not amenable to PCI. Recommended to continue amlodipine/metoprolol/Plavix/Imdur/aspirin. Started on Ranexa. Recommended to continue every 6 month follow-up. At time of the cardiology note had continued to endorse chest pain daily with both rest and exertion, generally last throughout the day varying in intensity and eventually resolving and sometimes associated with shortness of breath. Ranexa added as noted and continued on medical management as he was not a cath candidate. Also of note he was statin intolerant, and also intolerant of fenofibrate. He was noncompliant with Praluent - He would be high risk to hold plavix, once he clears will discuss mgmt with heparin if plavix can be held. - he is much more likely to need a complete procedure on the hip at this point. see cardiology note in regards to BABITA, moderate risk for anesthesia, no addtional testing indicated. History of seizures Reported grand mal seizure in the past, reportedly unrelated to alcohol use [facility] neurology records as noted in HPI Reports no seizures since his Keppra was increased about 1 year ago Seizure precautions Alcohol wdx management as otherwise noted CVA with CVA resulting expressive aphasia, right hemiparesis, right foot drop/drag, and right arm contraction Per patient and family his right arm and right leg strength improved after 2017 although is still qualitatively weaker than his left and sometimes limits him. No recent change in strength prior to his fall Follows with Dr. Evans /neurology CT with large left frontal area of encephalomalacia likely related to his prior stroke Aspirin/Plavix continued. see CAD above Type II DM -Reports now diet controlled last A1c within goal Daily BMP, if greater than 180 then add basal bolus with goal [id number] COPD Chronic. Reports he has daily wheezing but this has not changed recently. Trelegy/formulary equivalent Scattered slight wheezing on admission. No cough or increased sputum production suggestive of acute exacerbation GERD PPI Tobacco abuse 1 pack/day Nicotine patch ordered Recent pancreatitis, clinically improved Lipase level 105, resolving Patient did recently recover from acute pancreatitis. CT likely with residual changes from this however he has continued to drink alcohol and is at risk of further flaring this. He reports that when he was drinking yesterday this does not cause increased pain, he is hungry and with a good appetite, and his meals yesterday did not cause him any discomfort. Clinically does not show signs of recurrent acute/chronic pancreatitis on admission DVT prophylaxis: Lovenox added 2/2 trauma with nonoperative management at increased risk of VTE. No signs of ICH, hemoglobin is stable 24 hours out from fall CODE STATUS: DNR/DNI Diet: Heart healthy, fluid restricted Disposition: Admit to telemetry given combination of trauma, seizure risk, hyponatremia, and acute fracture with history of alcohol dependence and chronic CAD with daily. Admission and Anticipated Discharge Date Admission Date: June 04, 2025 Subjective Doing okay this morning. Heading to the OR for hip procedure. Otherwise no new events or concerns. Held his morning medications prior to procedure.Has been at his recent baseline for mentation. No events or concerns per nursing Physical Exam Physical Exam: General: A&Ox3. NAD. Eyes closed at rest but open to voice HEENT: Atraumatic, normocephalic. Pupils equal and reactive to light. Vision and hearing grossly intact. Poor dentition, several missing teeth. No midline cervical neck tenderness Pulm: CTAB A&P. Scattered slight expiratory rales without wheezes/rhonchi. Symmetrical chest rise. No increased work of breathing. No respiratory distress. Cardiac: RRR, soft sm. Radial pulses intact and symmetrical. Abdominal: Nontender, nondistended, soft. BS present. Extremities: Very tender to palpation overlying the lateral and anterior right hip. no visible deformity, bruising or malalignment Neuro: no tremor, mild confusion as above. Oriented to self only. No dysmetria or dysarthria. Results & Data Results & Data Vital Signs (Past 12 Hours) Vital Signs Temp Pulse Pulse Resp BP Pulse Ox Pulse Ox 06/09/25 10:00 94 06/09/25 08:12 36.6 C 70 18 147/72 H 93 06/09/25 07:16 36.9 C 78 21 133/68 92 06/09/25 07:15 89 06/09/25 03:05 36.9 C 76 18 162/76 H 94 06/08/25 23:28 72 O2 Del Method O2 Del Method 06/09/25 10:00 Room Air 06/09/25 08:12 Room Air 06/09/25 07:16 Room Air 06/09/25 07:15 06/09/25 03:05 Room Air 06/08/25 23:28 PG Care Time/CCT Total # of Minutes Spent Total Time Spent with Patient: Total time spent is greater than 50% in coordination of care (as documented) at patient's floor/unit and/or counseling patient: Coding Level of Care Code 22769 SUB INP/OBS CARE 2/35MIN Diagnoses Fall W19.XXXA Closed right hip fracture S72.001A Type 2 diabetes mellitus with hyperglycemia, without long-term current use of insulin E11.65 Diabetes mellitus middle or intermediate school principal insulin use: without halfway use Alcohol use disorder, moderate, dependence F10.20 Seizure disorder G40.909 Hx of carotid artery stenosis Z86.79 Alcohol withdrawal delirium F10.931 (3) Type 2 diabetes mellitus with hyperglycemia Diabetes mellitus middle or intermediate school principal insulin use: without middle or intermediate school principal use Qualified Code(s): E11.65 - Type 2 diabetes mellitus with hyperglycemia
[2025-06-09] MEDS ORDERED: ePHEDrine sulfate 50 MG/5 ML SYR ONE (11:22)
[2025-06-09] MEDS ORDERED: SUGAMMADEX SODIUM 200 MG/2 ML VIAL IV ONE (11:50)
--- NOTE | 2025-06-09 12:15 | Operative Report ---
PG Post Operative Report Pre & Post Diagnosis Operation Date: 06/09/25 08:50 Pre-Op Diagnosis: Right tylor-prosthetic subtrochanteric femur fracture Post-Op Diagnosis: Right tylor-prosthetic subtrochanteric femur fracture I identified the patient and participated in the time-out.: Yes Procedure Operation Date: 06/09/25 08:50 Actual Procedures p Right Hip Open Reduction Internal Fixation(Right) periprosthetic femur fracture- Patel Benavidez MD Surgeon Patel Benavidez MD Alteration Manager Luis Felipe Pratt PA-C Estimated Blood Loss 100 Findings Consistent with Post-Op Diagnosis Operative findings revealed a slightly displaced comminuted periprosthetic femur fracture. It was fairly comminuted. The stem appeared well-fixed. Specimens None Anesthesia Type General Complications none Disposition Accompanied Patient To Recovery: No Indications The patient is a 69-year-old gentleman with multiple medical comorbidities and long-term alcoholic who is status post bilateral hip replacements done the 14 to 15 years ago. A standard mechanical fall recently had acute onset of hip pain unable to ambulate. X-rays revealed a periprosthetic femur fracture. This was a proximal fracture which extended distally. The stab looked and appeared well- fixed. He had no problem preoperatively symptoms of loosening. Based on the displacement of the fracture and extent of it distally I was concerned that would be a lot of cantilever bending and that may lead to further fracture. I felt best to provide some additional stability if possible in order to mobilize him. We elected proceed with cerclage cabling of the proximal femur. Description of Procedure Operative implants consist of: 1 Dall-Miles 2.0 mm cables x 4. The patient was taken to the op room, identified, placed on the operating table in the supine position. All contact areas were appropriately padded. IV antibiotics were provided by anesthesia team. A general anesthetic was implemented. Patient was then placed on the fracture table. The both legs were placed in boot traction. IV antibiotics were provided by the anesthesia team. X-rays brought in to make sure we can get adequate images. The right hip and leg were then scrubbed with Hibiclens, prepped with ChloraPrep and draped in usual sterile fashion. A direct lateral approach to the femur was then performed using a longitudinal incision. Sharp dissection was Through subcutaneous tissue down to level the IT band. The IT band was incised longitudinally. The underlying vastus lateralis was retracted anteriorly. I injected locally with 30 cc of half percent Marcaine with epinephrine to try and limit bleeding. The fracture site area was on the opposite side of the femur. We exposed this as best possible. I placed 2 reduction clamps across the fracture site. I then sequentially placed 4 different Dall-Miles cables around the fracture site. We began in the midportion and then placed 1 distally, 1 above the lesser trochanter and then 1 just below the lesser trochanter. These were tensioned to 100 pounds of tension. They were crimped. Somatic final x-rays were obtained. Attention jointer closing. Wounds irrigated coconuts pulsatile lavage solution. I had previously injected with the local anesthetic. The IT band was then closed with #1 Vicryl suture running fashion the subcutaneous tissue was then closed with 2 layers of the deep layer #1 Vicryl suture and subcutaneous tissue with 2-0 Dexon suture in a buried interrupted fashion. Skin was closed skin meg. The leg was then cleaned and dried and a sterile dressing with Xeroform, 4 fours, sterile ABD pad and foam tape was applied. The patient then taken off the fracture table and placed on a transport bed. He is brought out of general anesthesia and transferred to the recovery in stable condition. Patient tolerated procedure well and there were no complications. Luis Felipe Pratt, my physician environmental emergencies assistant, was present for the entire procedure. His assistance was required for proper patient positioning, prepping and draping, surgical exposure, retraction, performed the technical details of the operation, placement of the implants, closure of the incision site, placement of postoperative sterile bandage. I attest to the content of the Intraoperative Record and any orders documented therein. Any exceptions are noted below.
--- NOTE | 2025-06-09 13:37 | Anesthesiology Progress Note ---
Date of Service June 09, 2025 Anesthesia Post Procedure Vital Signs Vital Signs: Temp Pulse Pulse Pulse Resp BP BP 06/09/25 13:23 37 C 83 18 175/82 H 06/09/25 13:00 36.3 C L 80 20 149/62 H 06/09/25 12:50 77 20 172/78 H 06/09/25 12:40 78 22 170/78 H 06/09/25 12:30 78 27 H 187/85 H 06/09/25 12:20 77 22 186/84 H 06/09/25 12:14 36.0 C L 78 23 189/85 H 06/09/25 10:00 06/09/25 08:12 36.6 C 70 18 147/72 H 06/09/25 07:16 36.9 C 78 21 133/68 06/09/25 07:15 89 06/09/25 03:05 36.9 C 76 18 162/76 H 06/08/25 23:28 72 06/08/25 22:32 36.6 C 71 20 132/67 06/08/25 19:28 37.3 C 76 18 154/77 H 06/08/25 16:59 82 06/08/25 16:00 06/08/25 15:00 Pulse Ox Pulse Ox O2 Del Method O2 Del Method O2 Flow Rate 06/09/25 13:23 99 Nasal Cannula 2 06/09/25 13:00 94 Nasal Cannula 2 06/09/25 12:50 98 Nasal Cannula 4 06/09/25 12:40 98 Nasal Cannula 4 06/09/25 12:30 98 Oxymask 10 06/09/25 12:20 100 Oxymask 10 06/09/25 12:14 99 Oxymask 10 06/09/25 10:00 94 Room Air 06/09/25 08:12 93 Room Air 06/09/25 07:16 92 Room Air 06/09/25 07:15 06/09/25 03:05 94 Room Air 06/08/25 23:28 06/08/25 22:32 96 Room Air 06/08/25 19:28 94 Room Air 06/08/25 16:59 06/08/25 16:00 94 Room Air 06/08/25 15:00 Room Air Pain Intensity Right Leg: Pain Intensity: 6 Transfer of Care Handoff Completed per policy Notes Mental Status: alert / awake / arousable Patient Amnestic to Procedure: Yes Nausea / Vomiting: adequately controlled Pain: adequately controlled Airway Patency, RR, SpO2: stable & adequate BP & HR: stable & adequate Hydration State: stable & adequate Anesthetic Complications: no major complications apparent
--- NOTE | 2025-06-09 13:49 | Fluoroscopy Report ---
FL hip RT 2-3V CLINICAL HISTORY: RT HIP ORIF COMPARISON STUDY: None FLUOROSCOPY TIME: 67 seconds FLUOROSCOPY IMAGES: 4 EXPOSURE DOSE: 17 mGy FINDINGS: Fluoroscopy was provided for placement of cerclage wires at the proximal right femur. IMPRESSION: Intraoperative fluoroscopy. ACT 112: Negative or not required by law. Electronically signed by: Clay Recinos M.D. 06/09/2025 1:48 PM
[2025-06-09] MEDS: HYDROmorphone INJ 0.5 MG/0.5 ML SYR IV PRN (17:26)
[2025-06-10 06:56] LABS: Hematocrit (blood only) 31.0 % (42.0-52.0); Hemoglobin 10.3 g/dl (14.0-18.0); Immature Granulocytes # (auto) 0.33 K/uL (0.01-0.20); Immature Granulocytes % (auto) 2.3 %; Mean Corpuscular Hemoglobin 32.0 pg (25.0-34.0); Mean Corpuscular Volume 96.3 fL (80.0-100.0); Platelet Count 371 K/uL (130-400); RDW Standard Deviation 43.7 fL (36.4-46.3); Red Blood Count 3.22 M/uL (4.70-6.10); White Blood Count 14.26 K/ul (4.8-10.8)
[2025-06-10 07:19] LABS: Anion Gap 10.0 (3-11); Blood Urea Nitrogen 13.0 mg/dl (6-23); Calcium 8.7 mg/dl (8.6-10.3); Carbon Dioxide 25.0 mmol/L (21-32); Chloride 96.0 mmol/L (98-107); Creatinine Clr Calc Pharmacy 107.0 ml/min; Glucose 125.0 mg/dl (70-99(Fasting)); Potassium 3.9 mmol/L (3.5-5.1); Sodium 131.0 mmol/L (136-145)
--- NOTE | 2025-06-10 07:20 | Orthopedic Progress Note ---
Date of Service June 10, 2025 Assessment & Plan (1) Closed right hip fracture: Plan: 69-year-old gentleman with multiple medical comorbidities postop day 1 from ORIF of a periprosthetic femur fracture. He seems to be doing well. Pain is controlled. He is neurologically intact. Plan: 1. DVT prophylaxis including thigh-high teds, SCDs, back on his Plavix starting today. 2. PT/OT. He is partial weightbearing only on this right leg for the next 6 weeks. 3. Pain control. Pain seems to be under reasonable control. 4. Medical management as per the medicine service. 5. Disposition. He is orthopedically okay for discharge anytime medically stable. I need to see him back 2 to 3 weeks out from surgery date. Any orthopedic questions can be directly [phone]. (2) Basilia-prosthetic subtrochanteric femur fracture: Admission and Anticipated Discharge Date Admission Date: June 04, 2025 Subjective 69-year-old gentleman postop day 1 from ORIF right periprosthetic femur fracture. He is doing pretty well this morning. He reports a fairly controlled pain. No new complaints. Physical Exam Physical Exam: Physical examination is a pleasant middle-aged male lying in bed. He is looks pretty comfortable this morning. Awake alert and oriented and more alert and I have seen him in this visit. Examination of the right hip reveals the dressing be clean dry and intact. Thigh is soft and supple. Minimal swelling. He is neurologically intact. Results & Data Vital Signs (Past 12 Hours) Vital Signs Temp Pulse Pulse Resp BP Pulse Ox O2 Del Method 06/10/25 03:58 36.9 C 80 18 163/78 H 97 Nasal Cannula 06/09/25 22:36 37.0 C 88 20 153/68 H 97 Nasal Cannula 06/09/25 21:55 89 06/09/25 19:23 Nasal Cannula O2 Flow Rate 06/10/25 03:58 3 06/09/25 22:36 3 06/09/25 21:55 06/09/25 19:23 2 Laboratory Results Hemoglobin is 10.3. Number hematocrit is 31.0. Electrolytes are pending
[2025-06-10 11:09] LABS: Prealbumin 9.1 mg/dl (20-40)
--- NOTE | 2025-06-10 11:44 | Hospitalist Progress Note ---
Date of Service June 10, 2025 Assessment & Plan (1) Fall: (2) Closed right hip fracture: (3) Type 2 diabetes mellitus with hyperglycemia: (4) Alcohol use disorder, moderate, dependence: (5) Seizure disorder: (6) Hx of carotid artery stenosis: (7) Alcohol withdrawal delirium: Plan 69-year-old male with a history of alcohol abuse, tobacco abuse, CAD with angina at rest and with exertion with a dissection at last attempted cardiac catheterization reportedly no longer Candidate, seizures unrelated to alcohol use well-controlled on Keppra for the last year, chronic hyponatremia with SIADH who presented after a fall which resulted in a hip fracture. He denies head strike/loss of consciousness which either led to his fall or due to his fall; however due to his inability to bear weight he reports he did fall asleep on the floor after falling. said Fall, trauma Periprostetic Hip Fx Fall 1 day prior to admission suspect around 2 PM occurred in the setting of drinking alcohol. He denied syncope/presyncope, head strike, loss of consciousness however notes he could not stand due to hip pain and so fell asleep on the floor Continued to have pain after being assisted to bed, present to the ER 06/04 was found to have a periprosthetic hip fracture CTC-spine: No acute fracture/subluxation. Severe degenerative changes and multilevel central canal/neural for aminal stenosis is noted. CThead: No intracranial bleed/acute findings. Large area of encephalomalacia of the left frontal lobe stable likely sequelae of prior infarct. CTA/P: Acute pancreatitis. Acute periprosthetic fracture of the right proximal femur. 0.3 cm right middle lobe nodule not requiring follow-up per Fleischner criteria. As patient is a smoker could have 12-month chest CT follow-up. No solid organ injury is noted EKG: Normal sinus rhythm. Inverted T waves have replaced nonspecific T waves in inferior leads compared to prior. No acute territorial ST segment changes. Admitted following trauma alert. Tertiary survey unremarkable - See orthos notes, ready for DC from an orthopedic standpoint - PT/OT and pain control as above Alcohol Withdrawal with delerium Alcohol abuse mild to moderate withdrawal symptoms, TIKA protocol initiated. Medications administered x 2. - Continue PCO given history of trauma. No evidence of closed head injury. Prior CT negative. No indication for reimaging at this time - resolved hyponatremia - mild, low p.o. intake, normal saline bolus this afternoon, recheck tomorrow morning Dysphagia: - tolerating diet, monitor closely Hypokalemia -DC supplement and monitor - labs as above CAD, daily angina at rest and w/ exertion, per cards not a cardiac cath/interventional candidate; hypertension History of cardiac cath /2016, attempted PCI of MAPPING SPECIALIST of right coronary aborted due to small focal dissection in 2017 Patient follows with [facility] cardiology. Records pending. At his last attempted PCI he had a dissection. Per discussion with heel cutter at that time was told cath should never be attempted due to his extremely high risk and he would need medical management moving forward. Additionally he is exceptionally high surgical risk due to his underlying CAD TTE 02/2024: LVEF 60 to 65%, grade 1 diastolic dysfunction, stable from prior study. Mild AR Metoprolol continued Ranolazine continued DAPT continued Isosorbide mononitrate 90 mg continued Amlodipine continued Cardiology note review 12/30/2024 with SUNNY Dinh: Noted to have CAD [place] artery of [place] heart with stable angina at that time. Complex coronary disease not amenable to PCI. Recommended to continue amlodipine/metoprolol/Plavix/Imdur/aspirin. Started on Ranexa. Recommended to continue every 6 month follow-up. At time of the cardiology note had continued to endorse chest pain daily with both rest and exertion, generally last throughout the day varying in intensity and eventually resolving and sometimes associated with shortness of breath. Ranexa added as noted and continued on medical management as he was not a cath candidate. Also of note he was statin intolerant, and also intolerant of fenofibrate. He was noncompliant with Praluent - He would be high risk to hold plavix, once he clears will discuss mgmt with heparin if plavix can be held. - he is much more likely to need a complete procedure on the hip at this point. see cardiology note in regards to BABITA, moderate risk for anesthesia, no addtional testing indicated. - Plavix and aspirin restarted History of seizures Reported grand mal seizure in the past, reportedly unrelated to alcohol use [facility] neurology records as noted in HPI Reports no seizures since his Keppra was increased about 1 year ago Seizure precautions restart oral Keppra CVA with CVA resulting expressive aphasia, right hemiparesis, right foot drop/drag, and right arm contraction Per patient and family his right arm and right leg strength improved after 2017 although is still qualitatively weaker than his left and sometimes limits him. No recent change in strength prior to his fall Follows with Dr. Evans /neurology CT with large left frontal area of encephalomalacia likely related to his prior stroke Aspirin/Plavix continued. see CAD above Type II DM -Reports now diet controlled last A1c within goal Daily BMP, if greater than 180 then add basal bolus with goal 440201 COPD Chronic. Reports he has daily wheezing but this has not changed recently. Trelegy/formulary equivalent Scattered slight wheezing on admission. No cough or increased sputum production suggestive of acute exacerbation GERD PPI Tobacco abuse 1 pack/day Nicotine patch ordered Recent pancreatitis, clinically improved Lipase level 105, resolving Patient did recently recover from acute pancreatitis. CT likely with residual changes from this however he has continued to drink alcohol and is at risk of further flaring this. He reports that when he was drinking yesterday this does not cause increased pain, he is hungry and with a good appetite, and his meals yesterday did not cause him any discomfort. Clinically does not show signs of recurrent acute/chronic pancreatitis on admission DVT prophylaxis: Lovenox added 2/2 trauma with nonoperative management at increased risk of VTE. No signs of ICH, hemoglobin is stable 24 hours out from fall CODE STATUS: DNR/DNI Diet: Heart healthy, fluid restricted Disposition: Admit to telemetry given combination of trauma, seizure risk, hyponatremia, and acute fracture with history of alcohol dependence and chronic CAD with daily. Admission and Anticipated Discharge Date Admission Date: June 04, 2025 Subjective doing okay this morning. Having some pain in the hip has not been up and about just yet. Ate a pretty good breakfast. Slept through the night. No problem with intake or eliminations. No new complaints or concerns per patient. No signs of alcohol withdrawal low scores will discontinue the protocol. He can transfer out of pcu out to [facility] today Physical Exam Physical Exam: General: A&Ox3. NAD. Eyes closed at rest but open to voice HEENT: Atraumatic, normocephalic. Pupils equal and reactive to light. Vision and hearing grossly intact. Poor dentition, several missing teeth. No midline cervical neck tenderness Pulm: CTAB A&P. Scattered slight expiratory rales without wheezes/rhonchi. Symmetrical chest rise. No increased work of breathing. No respiratory distress. Cardiac: RRR, soft sm. Radial pulses intact and symmetrical. Abdominal: Nontender, nondistended, soft. BS present. Extremities: Very tender to palpation overlying the lateral and anterior right hip. no visible deformity, bruising or malalignment Neuro: no tremor, mild confusion as above. Oriented to self only. No dy smetria or dysarthria. Results & Data Results & Data Vital Signs (Past 12 Hours) Vital Signs Temp Pulse Pulse Resp BP Pulse Ox Pulse Ox 06/10/25 10:47 76 20 135/72 97 06/10/25 09:42 96 06/10/25 08:01 37.0 C 82 23 169/78 H 98 06/10/25 07:48 82 06/10/25 07:48 06/10/25 03:58 36.9 C 80 18 163/78 H 97 O2 Del Method O2 Del Method O2 Flow Rate O2 Flow Rate 06/10/25 10:47 Nasal Cannula 3 06/10/25 09:42 Nasal Cannula 2 06/10/25 08:01 Nasal Cannula 3 06/10/25 07:48 06/10/25 07:48 Nasal Cannula 2 06/10/25 03:58 Nasal Cannula 3 Laboratory Results 06/10/25 06/08/25 05:46 20:48 WBC 14.26 H RBC 3.22 L Hgb 10.3 L Hct 31.0 L MCV 96.3 MCH 32.0 MCHC 33.2 RDW Std Deviation 43.7 RDW Coeff of Keny 12.4 Plt Count 371 MPV 9.1 L Immature Gran % (Auto) 2.3 Neut % (Auto) 82.0 Lymph % (Auto) 6.7 [place] % (Auto) 8.1 Eos % (Auto) 0.4 Baso % (Auto) 0.5 Neut # (Auto) 11.69 H Lymph # (Auto) 0.96 L [place] # (Auto) 1.15 H Eos # (Auto) 0.06 Baso # (Auto) 0.07 Immature Gran # (Auto) 0.33 H Sodium 131 L Potassium 3.9 Chloride 96 L Carbon Dioxide 25 Anion Gap 10 BUN 13 Creatinine 0.77 Est Cr Clr Drug Dosing 107.0 eGFR 96.31 BUN/Creatinine Ratio 16.9 Glucose 125 H Calcium 8.7 Prealbumin 9.1 L 25-OH Vitamin D Total 27.4 L Crossmatch See Detail Diagnostic Findings Hip X-Ray 06/09/25 08:50 FL hip RT 2-3V CLINICAL HISTORY: RT HIP ORIF COMPARISON STUDY: None FLUOROSCOPY TIME: 67 seconds FLUOROSCOPY IMAGES: 4 EXPOSURE DOSE: 17 mGy FINDINGS: Fluoroscopy was provided for placement of cerclage wires at the proximal right femur. IMPRESSION: Intraoperative fluoroscopy. ACT 112: Negative or not required by law. Electronically signed by: Clay Recinos M.D. 06/09/2025 1:48 PM PG Care Time/CCT Total # of Minutes Spent Total Time Spent with Patient: Total time spent is greater than 50% in coordination of care (as documented) at patient's floor/unit and/or counseling patient: Coding Level of Care Code 53280 SUB INP/OBS CARE 2/35MIN Diagnoses Fall W19.XXXA Closed right hip fracture S72.001A Type 2 diabetes mellitus with hyperglycemia, without long-term current use of insulin E11.65 Diabetes mellitus director long term care insulin use: without skilled nursing use Alcohol use disorder, moderate, dependence F10.20 Seizure disorder G40.909 Hx of carotid artery stenosis Z86.79 Alcohol withdrawal delirium F10.931 (3) Type 2 diabetes mellitus with hyperglycemia Diabetes mellitus skilled nursing insulin use: without skilled nursing use Qualified Code(s): E11.65 - Type 2 diabetes mellitus with hyperglycemia
[2025-06-10] MEDS: SODIUM CHLORIDE 0.9% 500 ML IV ONE (14:27)
[2025-06-10] MEDS: SODIUM CHLORIDE 0.9% 1,000 ML IV SCH (14:57)
[2025-06-10] MEDS: ACETAMINOPHEN 325 MG TAB PO PRN (20:45)
[2025-06-11 06:20] LABS: Hematocrit (blood only) 26.8 % (42.0-52.0); Hemoglobin 9.3 g/dl (14.0-18.0); Immature Granulocytes # (auto) 0.51 K/uL (0.01-0.20); Immature Granulocytes % (auto) 4.1 %; Mean Corpuscular Hemoglobin 33.6 pg (25.0-34.0); Mean Corpuscular Volume 96.8 fL (80.0-100.0); Platelet Count 337 K/uL (130-400); RDW Standard Deviation 44.0 fL (36.4-46.3); Red Blood Count 2.77 M/uL (4.70-6.10); White Blood Count 12.54 K/ul (4.8-10.8)
[2025-06-11 06:38] LABS: Anion Gap 6.0 (3-11); Blood Urea Nitrogen 11.0 mg/dl (6-23); Calcium 8.6 mg/dl (8.6-10.3); Carbon Dioxide 27.0 mmol/L (21-32); Chloride 99.0 mmol/L (98-107); Creatinine Clr Calc Pharmacy 104.3 ml/min; Glucose 117.0 mg/dl (70-99(Fasting)); Magnesium 1.6 mg/dl (1.7-2.4); Potassium 3.8 mmol/L (3.5-5.1); Sodium 132.0 mmol/L (136-145)
--- NOTE | 2025-06-11 11:11 | Hospitalist Progress Note ---
Date of Service June 11, 2025 Assessment & Plan (1) Fall: (2) Closed right hip fracture: (3) Type 2 diabetes mellitus with hyperglycemia: (4) Alcohol use disorder, moderate, dependence: (5) Seizure disorder: (6) Hx of carotid artery stenosis: (7) Alcohol withdrawal delirium: Plan 69-year-old male with a history of alcohol abuse, tobacco abuse, CAD with angina at rest and with exertion with a dissection at last attempted cardiac catheterization reportedly no longer Candidate, seizures unrelated to alcohol use well-controlled on Keppra for the last year, chronic hyponatremia with SIADH who presented after a fall which resulted in a hip fracture. He denies head strike/loss of consciousness which either led to his fall or due to his fall; however due to his inability to bear weight he reports he did fall asleep on the floor after falling. said Fall, trauma Periprostetic Hip Fx Fall 1 day prior to admission suspect around 2 PM occurred in the setting of drinking alcohol. He denied syncope/presyncope, head strike, loss of consciousness however notes he could not stand due to hip pain and so fell asleep on the floor Continued to have pain after being assisted to bed, present to the ER 06/04 was found to have a periprosthetic hip fracture CTC-spine: No acute fracture/subluxation. Severe degenerative changes and multilevel central canal/neural for aminal stenosis is noted. CThead: No intracranial bleed/acute findings. Large area of encephalomalacia of the left frontal lobe stable likely sequelae of prior infarct. CTA/P: Acute pancreatitis. Acute periprosthetic fracture of the right proximal femur. 0.3 cm right middle lobe nodule not requiring follow-up per Fleischner criteria. As patient is a smoker could have 12-month chest CT follow-up. No solid organ injury is noted EKG: Normal sinus rhythm. Inverted T waves have replaced nonspecific T waves in inferior leads compared to prior. No acute territorial ST segment changes. Admitted following trauma alert. Tertiary survey unremarkable - See orthos notes, ready for DC from an orthopedic standpoint - PT/OT and pain control as above #Leukocytosis #Elevated CRP - no clear source, clinically stable, continue to monitor, would move ahead with source workup if fever, chills or VS changes Alcohol Withdrawal with delerium Alcohol abuse mild to moderate withdrawal symptoms, TIKA protocol initiated. Medications administered x 2. - Continue PCO given history of trauma. No evidence of closed head injury. Prior CT negative. No indication for reimaging at this time - resolved hyponatremia - mild, low p.o. intake, normal saline bolus this afternoon, recheck tomorrow m orning - 50cc bolus given Dysphagia: - tolerating diet, monitor closely Hypokalemia -DC supplement and monitor - labs as above CAD, daily angina at rest and w/ exertion, per cards not a cardiac c ath/interventional candidate; hypertension History of cardiac cath /2016, attempted PCI of [employer]PER[employer] of right coronary aborted due to small focal dissection in 2017 Patient follows with [facility] cardiology. Records pending. At his last attempted PCI he had a dissection. Per discussion with supervisor frame sample and pattern at that time was told cath should never be attempted due to his extremely high risk and he would need medical management moving forward. Additionally he is exceptionally high surgical risk due to his underlying CAD TTE 02/2024: LVEF 60 to 65%, grade 1 diastolic dysfunction, stable from prior study. Mild AR Metoprolol continued Ranolazine continued DAPT continued Isosorbide mononitrate 90 mg continued Amlodipine continued Cardiology note review 12/30/2024 with SUNNY Dinh: Noted to have CAD robinson artery of robinson heart with stable angina at that time. Complex coronary disease not amenable to PCI. Recommended to continue amlodipine/metoprolol/Plavix/Imdur/aspirin. Started on Ranexa. Recommended to continue every 6 month follow-up. At time of the cardiology note had continued to endorse chest pain daily with both rest and exertion, generally last throughout the day varying in intensity and eventually resolving and sometimes associated with shortness of breath. Ranexa added as noted and continued on medical management as he was not a cath candidate. Also of note he was statin intolerant, and also intolerant of fenofibrate. He was noncompliant with Praluent - He would be high risk to hold plavix, once he clears will discuss mgmt with heparin if plavix can be held. - he is much more likely to need a complete procedure on the hip at this point. see cardiology note in regards to BABITA, moderate risk for anesthesia, no addtional testing indicated. - Plavix and aspirin restarted History of seizures Reported grand mal seizure in the past, reportedly unrelated to alcohol use [facility] neurology records as noted in HPI Reports no seizures since his Keppra was increased about 1 year ago Seizure precautions restart oral Keppra CVA with CVA resulting expressive aphasia, right hemiparesis, right foot drop/drag, and right arm contraction Per patient and family his right arm and right leg strength improved after 2017 although is still qualitatively weaker than his left and sometimes limits him. No recent change in strength prior to his fall Follows with Dr. Evans /neurology CT with large left frontal area of encephalomalacia likely related to his prior stroke Aspirin/Plavix continued. see CAD above Type II DM -Reports now diet controlled last A1c within goal Daily BMP, if greater than 180 then add basal bolus with goal [id number] COPD Chronic. Reports he has daily wheezing but this has not changed recently. Trelegy/formulary equivalent Scattered slight wheezing on admission. No cough or increased sputum production suggestive of acute exacerbation GERD PPI Tobacco abuse 1 pack/day Nicotine patch ordered Recent pancreatitis, clinically improved Lipase level 105, resolving Patient did recently recover from acute pancreatitis. CT likely with residual changes from this however he has continued to drink alcohol and is at risk of further flaring this. He reports that when he was drinking yesterday this does not cause increased pain, he is hungry and with a good appetite, and his meals yesterday did not cause him any discomfort. Clinically does not show signs of recurrent acute/chronic pancreatitis on admission DVT prophylaxis: Lovenox added 2/2 trauma with nonoperative management at increased risk of VTE. No signs of ICH, hemoglobin is stable 24 hours out from fall CODE STATUS: DNR/DNI Diet: Heart healthy, fluid restricted Disposition: He is ready for placement as long as CRP and Leuks start to trend downward. Will continue daily monitoring Admission and Anticipated Discharge Date Admission Date: June 04, 2025 Subjective doing okay this morning. Up and ate a pretty good breakfast. Moved from his PCU bed to a [facility] bed has not been up and about much yet. Has been working with PT and OT. No new complaints concerns or events per patient or nursing staff. No problem with bowel or bladder function. No fevers chills malaise nausea vomiting or other generalized signs of illness. Physical Exam Physical Exam: General: A&Ox3. NAD. Eyes closed at rest but open to voice HEENT: Atraumatic, normocephalic. Pupils equal and reactive to light. Vision and hearing grossly intact. Poor dentition, several missing teeth. No midline cervical neck tenderness Pulm: CTAB A&P. Scattered slight expiratory rales without wheezes/rhonchi. Symmetrical chest rise. No increased work of breathing. No respiratory distress. Cardiac: RRR, soft sm. Radial pulses intact and symmetrical. Abdominal: Nontender, nondistended, soft. BS present. Extremities: Very tender to palpation overlying the lateral and anterior right hip. no visible deformity, bruising or malalignment Neuro: no tremor, mild confusion as above. Oriented to self only. No dysmetria or dysarthria. Results & Data Results & Data Vital Signs (Past 12 Hours) Vital Signs Temp Pulse Resp BP Pulse Ox O2 Del Method 06/11/25 07:30 36.9 C 86 16 129/69 92 Room Air Laboratory Results 06/11/25 06/10/25 05:47 05:46 WBC 12.54 H RBC 2.77 L Hgb 9.3 L Hct 26.8 L MCV 96.8 MCH 33.6 MCHC 34.7 RDW Std Deviation 44.0 RDW Coeff of Ken[place] 12.4 Plt Count 337 MPV 8.9 L Immature Gran % (Auto) 4.1 Neut % (Auto) 76.8 Lymph % (Auto) 9.5 [place] % (Auto) 7.3 Eos % (Auto) 1.8 Baso % (Auto) 0.5 Neut # (Auto) 9.64 H Lymph # (Auto) 1.19 L [place] # (Auto) 0.91 H Eos # (Auto) 0.23 Baso # (Auto) 0.06 Immature Gran # (Auto) 0.51 H Sodium 132 L Potassium 3.8 Chloride 99 Carbon Dioxide 27 Anion Gap 6 BUN 11 Creatinine 0.79 Est Cr Clr Drug Dosing 104.3 eGFR 95.57 BUN/Creatinine Ratio 13.9 Glucose 117 H Calcium 8.6 Magnesium 1.6 L C-Reactive Protein 28.64 H Prealbumin 9.1 L PG Care Time/CCT Total # of Minutes Spent Total Time Spent with Patient: Total time spent is greater than 50% in coordination of care (as documented) at patient's floor/unit and/or counseling patient: Coding Level of Care Code 52233 SUB INP/OBS CARE 2/35MIN Diagnoses Fall W19.XXXA Closed right hip fracture S72.001A Type 2 diabetes mellitus with hyperglycemia, without long-term current use of insulin E11.65 Diabetes mellitus alf insulin use: without long term care phlebotomist use Alcohol use disorder, moderate, dependence F10.20 Seizure disorder G40.909 Hx of carotid artery stenosis Z86.79 Alcohol withdrawal delirium F10.931 (3) Type 2 diabetes mellitus with hyperglycemia Diabetes mellitus long term care phlebotomist insulin use: without alf use Qualified Code(s): E11.65 - Type 2 diabetes mellitus with hyperglycemia
[2025-06-11] MEDS: SODIUM CHLORIDE 0.9% 500 ML IV ONE (11:15)
[2025-06-11] MEDS ORDERED: POLYETHYLENE (MIRALAX) 17 GM PACK PO SCH (18:00)
[2025-06-12 06:44] LABS: Hematocrit (blood only) 24.7 % (42.0-52.0); Hemoglobin 8.4 g/dl (14.0-18.0); Immature Granulocytes # (auto) 0.28 K/uL (0.01-0.20); Immature Granulocytes % (auto) 3.1 %; Mean Corpuscular Hemoglobin 33.1 pg (25.0-34.0); Mean Corpuscular Volume 97.2 fL (80.0-100.0); Platelet Count 374 K/uL (130-400); RDW Standard Deviation 44.3 fL (36.4-46.3); Red Blood Count 2.54 M/uL (4.70-6.10); White Blood Count 8.89 K/ul (4.8-10.8)
[2025-06-12 07:16] LABS: Alanine Aminotransferase 15.0 U/L (7-52); Albumin Globulin Ratio 0.8 (0.9-2); Albumin Level 2.5 gm/dl (3.4-5.0); Alkaline Phosphatase 55.0 U/L (34-104); Anion Gap 6.0 (3-11); Bilirubin,Total 0.5 mg/dl (0.2-1.0); Blood Urea Nitrogen 10.0 mg/dl (6-23); Calcium 8.5 mg/dl (8.6-10.3); Carbon Dioxide 26.0 mmol/L (21-32); Chloride 103.0 mmol/L (98-107); Creatinine Clr Calc Pharmacy 108.4 ml/min; Globulin 3.2 gm/dl (2.5-4.0); Glucose 107.0 mg/dl (70-99(Fasting)); Potassium 3.8 mmol/L (3.5-5.1); Sodium 135.0 mmol/L (136-145); Total Protein 5.7 gm/dl (6.0-8.3)
--- NOTE | 2025-06-12 09:22 | Orthopedic Progress Note ---
Date of Service June 12, 2025 Assessment & Plan (1) Closed right hip fracture: Plan: Continue DVT prophylaxis including thigh-high teds, SCDs, and Plavix Continue PT/OT. He is partial weightbearing only on this right leg for the next 6 weeks. Continue pain control. Medical management as per the medicine service. Disposition. He is orthopedically okay for discharge anytime medically stable. Follow-up in [address] Benavidez in clinic. Admission and Anticipated Discharge Date Admission Date: June 04, 2025 Subjective Patient was seen at bedside this morning. He is postop day 3 from open reduction and internal fixation of a right periprosthetic femur fracture. He is doing well. Pain is well-controlled. Physical Exam Physical Exam: Right hip: Dressing is clean dry and intact. There is minimal swelling. Mild tenderness to palpation. Light touch sensation is intact in the lower extremity as well as brisk cap refill. No pain with logroll. Results & Data Vital Signs (Past 12 Hours) Vital Signs Temp Pulse Resp BP Pulse Ox O2 Del Method 06/12/25 07:28 36.6 C 78 16 145/71 H 91 Room Air 06/11/25 23:47 36.8 C 78 14 111/68 92 Room Air Laboratory Results Abnormal Lab Results 06/12/25 06:04 WBC 8.89 RBC 2.54 L Hgb 8.4 L Hct 24.7 L MCV 97.2 MCH 33.1 MCHC 34.0 RDW Std Deviation 44.3 RDW Coeff of Keny 12.5 Plt Count 374 MPV 9.0 L Immature Gran % (Auto) 3.1 Neut % (Auto) 74.1 Lymph % (Auto) 13.4 [place] % (Auto) 6.4 Eos % (Auto) 2.2 Baso % (Auto) 0.8 Neut # (Auto) 6.58 H Lymph # (Auto) 1.19 L [place] # (Auto) 0.57 Eos # (Auto) 0.20 Baso # (Auto) 0.07 Immature Gran # (Auto) 0.28 H Sodium 135 L Potassium 3.8 Chloride 103 Carbon Dioxide 26 Anion Gap 6 BUN 10 Creatinine 0.76 Est Cr Clr Drug Dosing 108.4 eGFR 96.69 BUN/Creatinine Ratio 13.2 Glucose 107 H Calcium 8.5 L Total Bilirubin 0.5 AST 31 ALT 15 Alkaline Phosphatase 55 C-Reactive Protein 22.52 H Total Protein 5.7 L Albumin 2.5 L Globulin 3.2 Albumin/Globulin Ratio 0.8 L Procalcitonin 0.18 PG Care Time/CCT Total # of Minutes Spent Total Time Spent with Patient: Total time spent is greater than 50% in coordination of care (as documented) at patient's floor/unit and/or counseling patient: Coding Level of Care Code 32059 Post Operative Follow-Up Diagnoses Closed right hip fracture S72.001A
--- NOTE | 2025-06-12 12:52 | Hospitalist Progress Note ---
Date of Service June 12, 2025 Assessment & Plan (1) Closed right hip fracture: (2) Fall: (3) Type 2 diabetes mellitus with hyperglycemia: (4) Alcohol withdrawal delirium: (5) Seizure disorder: Plan Mr. León is a 69-year-old man with past medical history of alcohol use disorde r, tobacco use disorder, CAD with angina at rest and with exertion, chronic total occlusion of the RCA that is not amenable to revascularization, seizures unrelated to alcohol use well-controlled on Keppra for the last year, and chronic hyponatremia with SIADH. He presented after a fall which resulted in a hip fracture. Trauma workup included CT C-spine which showed no acute fractures/subluxation, head CT which showed no intracranial bleed/acute findings, CT A/P which revealed acute pancreatitis and a 0.3 cm right middle lobe nodule not requiring follow-up per Fleischner criteria. Tertiary survey unremarkable. Now s/p right hip ORIF on 06/[address] Benavidez. He is medically stable while awaiting rehab placement. #Periprosthetic hip fracture | Fall Fall 1 day prior to admission suspect around 2 PM occurred in the setting of drinking alcohol. He denied syncope/presyncope, head strike, loss of consciousness however notes he could not stand due to hip pain and so fell asleep on the floor. - S/p right hip ORIF on 06/[address] Benavidez - DVT prophylaxis with thigh-high teds, SCDs, Plavix per Ortho - Continue PT/OThe was partial weightbearing only on his right leg for the next 6 weeks. Therapy is recommending rehab - Pain regimen adjusted: Tylenol as needed, oxycodone 5-10 mg Q4h PRN moderatesevere pain, morphine 4 mg IV Q4H PRN breakthrough pain #Constipation - Likely opioid-induced - Start MiraLAX daily and Senokot-S daily - Milk of mag suspension and Dulcolax suppository available PRN #Leukocytosis | Elevated CRP - Leukocytosis resolved 06/12 - CRP remains elevated at 22.52 but has downtrended from prior. Procalcitonin negative at 0.18 #Alcohol Withdrawal with delirium | Alcohol use disorder - Experienced mildmoderate withdrawal symptoms earlier in his hospitalization. TIKA protocol was initiated and medications administered x 2 - Now resolved. Encourage alcohol cessation #CAD | Angina | Hypertension - History of cardiac cath /2016, attempted PCI of PATIENT COMPANION of right coronary aborted due to small focal dissection in 2017. Per discussion with litigation manager at that time was told cath should never be attempted due to his extremely high risk and he would need medical management moving forward - TTE 02/2024: LVEF 60 to 65%, grade 1 diastolic dysfunction, stable from prior study. Mild AR - Continue metoprolol, Ranolazine, Isosorbide mononitrate, amlodipine, DAPT #Recent pancreatitis, clinically improved - Lipase elevated at 2946 on admission, has since downtrended to 105 - Patient did recently recover from acute pancreatitis. CT likely with residual changes from this however he has continued to drink alcohol and is at risk of further flaring this. He reports that when he was drinking prior to this [id number], it does not cause increased pain, he is hungry and with a good appetite, and his meals did not cause him any discomfort - Clinically does not show signs of recurrent acute on chronic pancreatitis #History of seizures Reported grand mal seizure in the past, reportedly unrelated to alcohol use [facility] neurolog[place] records as noted in HPI Reports no seizures since his Keppra was increased about 1 year ago Seizure precautions Continue oral Keppra #History of CVA with CVA resulting expressive aphasia, right hemiparesis, right foot drop/drag, and right arm contraction Per patient and family his right arm and right leg strength improved after 2017 although is still qualitatively weaker than his left and sometimes limits him. No recent change in strength prior to his fall Follows with Dr. Evans /neurology CT with large left frontal area of encephalomalacia likely related to his prior stroke Continue Aspirin/Plavix #Type II DM - Reports now diet controlled last A1c within goal - BSG has been well controlled on AM labs throughout this admission #Tobacco abuse - 1 pack/day - Nicotine patch ordered while inpatient - Encourage tobacco cessation #Chronic hyponatremia | SIADH - Sodium at baseline #Dysphagia - tolerating diet, monitor closely #Hypokalemia - Mild, 3.3 on admission. Repleted and augmented appropriately. Has remained WNL since #COPD Chronic. Reports he has daily wheezing but this has not changed recen tly. Continue Trelegy/formulary equivalent #GERD Continue PPI DVT prophylaxis: Lovenox Disposition: Medically stable for discharge. Awaiting rehab placement. Updated at bedside Ordered/increased bowel regimen Discussed discharge planning with Admission and Anticipated Discharge Date Admission Date: June 04, 2025 Subjective Patient seen and evaluated at bedside with his present. He reports "I feel miserable today." He explains that his pain is uncontrolled and he feels nauseous. He also has not had a BM in several days. We discussed giving him some pain and nausea medications as well as starting a scheduled bowel regimen. He denies any additional complaints or concerns at this time. Physical Exam Physical Exam: General: No acute distress, nondiaphoretic, well-developed, well-nourished. Skin: Warm, dry. No rashes or peripheral edema noted. Cardiac: Regular rate and rhythm. Systolic murmur noted. Pulm: Clear to auscultation bilaterally without wheezes, rales or rhonchi. Normal respiratory effort. 90% on room air. Abdominal: Soft, nontender, nondistended. Bowel sounds present. MSK: Expected postoperative tenderness to palpation over anterolateral right hip. Dressing to right hip clean dry and intact. Normal motor and sensory function in lower extremities bilaterally. Neuro: A&O x3. No focal neurological deficits. Results & Data Results & Data Vital Signs (Past 12 Hours) Vital Signs Temp Pulse Resp BP Pulse Ox O2 Del Method 06/12/25 07:28 97.9 F 78 16 145/71 H 91 Room Air Laboratory Results Reviewed CBC with differential Reviewed CMP, chemistries PG Care Time/CCT Total # of Minutes Spent Total Time Spent with Patient: Total time spent is greater than 50% in coordination of care (as documented) at patient's floor/unit and/or counseling patient: Coding Level of Care Code 00569 SUB INP/OBS CARE 3/50MIN Diagnoses Closed right hip fracture S72.001A Fall W19.XXXA Type 2 diabetes mellitus with hyperglycemia, without long-term current use of insulin E11.65 Diabetes mellitus intermediate school teacher insulin use: without alf use Alcohol withdrawal delirium F10.931 Seizure disorder G40.909 (3) Type 2 diabetes mellitus with hyperglycemia Diabetes mellitus intermediate school teacher insulin use: without intermediate school teacher use Qualified Code(s): E11.65 - Type 2 diabetes mellitus with hyperglycemia
[2025-06-12] MEDS: POLYETHYLENE (MIRALAX) 17 GM PACK PO SCH (12:56)
[2025-06-12] MEDS: DOCUSATE SODIUM/SENNA 50/8.6MG TAB PO SCH (13:04)
[2025-06-12] MEDS ORDERED: MoRPHine SULFATE 4 MG/ML 1 ML CARP\\VIAL IV PRN (17:53)
[2025-06-13 06:04] LABS: Hematocrit (blood only) 25.0 % (42.0-52.0); Hemoglobin 8.4 g/dl (14.0-18.0); Immature Granulocytes # (auto) 0.17 K/uL (0.01-0.20); Immature Granulocytes % (auto) 2.0 %; Mean Corpuscular Hemoglobin 32.8 pg (25.0-34.0); Mean Corpuscular Volume 97.7 fL (80.0-100.0); Platelet Count 399 K/uL (130-400); RDW Standard Deviation 45.6 fL (36.4-46.3); Red Blood Count 2.56 M/uL (4.70-6.10); White Blood Count 8.50 K/ul (4.8-10.8)
[2025-06-13 06:23] LABS: Anion Gap 7.0 (3-11); Blood Urea Nitrogen 7.0 mg/dl (6-23); Calcium 8.7 mg/dl (8.6-10.3); Carbon Dioxide 26.0 mmol/L (21-32); Chloride 102.0 mmol/L (98-107); Creatinine Clr Calc Pharmacy 99.3 ml/min; Glucose 98.0 mg/dl (70-99(Fasting)); Potassium 3.9 mmol/L (3.5-5.1); Sodium 135.0 mmol/L (136-145)
[2025-06-13 08:11] VITALS: O2SAT 96
[2025-06-13 11:35] VITALS: BP 154/67; RESP 27; TEMP 97.2
--- NOTE | 2025-06-13 11:41 | Orthopedic Progress Note ---
Date of Service June 13, 2025 Assessment & Plan (1) H/O bilateral hip replacements: Plan: 69-year-old gentleman status post ORIF of a periprosthetic femur around what looks to be a well-fixed implant. Clinically seems to be doing okay. Is not really moving his foot much for unclear reasons. Pain seems to be controlled. Plan: From the orthopedic standpoint we will going to keep him partial weightbearing for 6 weeks. Medical management as per the medicine service. He is orthopedically okay for discharge anytime medically stable. He needs a follow-up with me in the clinic in 2 to 3 weeks. Any orthopedic questions can be directly [phone]. (2) Periprosthetic fracture of femur following total replacement of hip: Admission and Anticipated Discharge Date Admission Date: June 04, 2025 Subjective 69-year-old gentleman with multiple medical comorbidities status post ORIF of a periprosthetic femur fracture. He seems to be doing well this morning. Really not much in the way of complaints. Pains controlled. Not clear to me whether he has been up and ambulating yet. Physical Exam Physical Exam: Physical examination is a pleasant middle-age male. He is lying in bed looks pretty comfortable. Examination of the right hip reveals the dressing be clean dry and intact. Thigh is soft and supple. He really does not move his right leg or foot much. He plantarflexion but minimal dorsiflexion. Sensation he reports is intact. Results & Data Vital Signs (Past 12 Hours) Vital Signs Temp Pulse Resp BP Pulse Ox O2 Del Method O2 Flow Rate 06/13/25 11:20 36.2 C L 74 27 H 154/67 H 96 Nasal Cannula 2 06/13/25 08:20 Nasal Cannula 2 06/13/25 08:11 75 165/70 H 96 Nasal Cannula 2 06/13/25 07:49 36.7 C 78 28 H 153/75 H 97 Nasal Cannula 2 Laboratory Results Hemoglobin is 8.4. Macro is 25.0. Electrolytes are stable
[2025-06-13 14:34] VITALS: PULSE 76
--- NOTE | 2025-06-13 16:21 | Discharge Summary ---
"Discharge Summary Date of Service June 13, 2025 Principal Dx & Hospital Course #1 = Principal Diagnosis (1) Closed right hip fracture: (2) Fall: (3) Type 2 diabetes mellitus with hyperglycemia: (4) Alcohol withdrawal delirium: (5) Seizure disorder: Plan Mr. León is a 69-year-old man with past medical history of alcohol use disorder, tobacco use disorder, CAD with angina at rest and with exertion, chronic total occlusion of the RCA that is not amenable to revascularization, seizures unrelated to alcohol use well-controlled on Keppra for the last year, and chronic hyponatremia with SIADH. He presented after a fall which resulted in a hip fracture. Trauma workup included CT C-spine which showed no acute fractures/subluxation, head CT which showed no intracranial bleed/acute findings, CT A/P which revealed acute pancreatitis and a 0.3 cm right middle lobe nodule not requiring follow-up per Fleischner criteria. Tertiary survey unremarkable. Now s/p right hip ORIF on 06/[address] Benavidez. #Periprosthetic hip fracture | Fall Fall 1 day prior to admission suspect around 2 PM occurred in the setting of drinking alcohol. He denied syncope/presyncope, head strike, loss of consciousness however notes he could not stand due to hip pain and so fell asleep on the floor. - S/p right hip ORIF on 06/[address] Benavidez - DVT prophylaxis with thigh-high teds, SCDs, Plavix per Ortho - Continue PT/OT he is partial weightbearing only on his right leg for the next 6 weeks. Therapy is recommending rehab - Pain regimen: Tylenol as needed, oxycodone 5-10 mg Q4h PRN moderatesevere isaac n #Constipation - Likely opioid-induced - Continue MiraLAX daily and Senokot-S daily - Milk of mag suspension and Dulcolax suppository available PRN #Leukocytosis | Elevated CRP - Leukocytosis resolved 06/12 - CRP remained elevated at 22.52 but has downtrended from prior. Procalcitonin negative at 0.18 #Alcohol Withdrawal with delirium | Alcohol use disorder - Experienced mildmoderate withdrawal symptoms earlier in his hospitalization. TIKA protocol was initiated and medications administered x 2 - Now resolved. Encourage alcohol cessation #CAD | Angina | Hypertension - History of cardiac cath /2016, attempted PCI of [employer] of right coronary aborted due to small focal dissection in 2017. Per discussion with representative phlebotomy services at that time was told cath should never be attempted due to his extremely high risk and he would need medical management moving forward - TTE 02/2024: LVEF 60 to 65%, grade 1 diastolic dysfunction, stable from prior study. Mild AR - Continue metoprolol, Ranolazine, Isosorbide mononitrate, amlodipine, DAPT #Recent pancreatitis, clinically improved - Lipase elevated at 2946 on admission, has since downtrended to 105 - Patient did recently recover from acute pancreatitis. CT likely with residual changes from this however he has continued to drink alcohol and is at risk of further flaring this. He reports that when he was drinking prior to this [id number], it does not cause increased pain, he is hungry and with a good a ppetite, and his meals did not cause him any discomfort - Clinically does not show signs of recurrent acute on chronic pancreatitis #History of seizures Reported grand mal seizure in the past, reportedly unrelated to alcohol use [facility] [place] as noted in HPI Reports no seizures since his Keppra was increased about 1 year ago Seizure precautions Continue oral Keppra #History of CVA with CVA resulting expressive aphasia, right hemiparesis, right foot drop/drag, and right arm contraction Per patient and family his right arm and right leg strength improved after 2017 although is still qualitatively weaker than his left and sometimes limits him. No recent change in strength prior to his fall Follows with Dr. Evans /neurology CT with large left frontal area of encephalomalacia likely related to his prior stroke Continue Aspirin/Plavix #Type II DM - Reports now diet controlled last A1c within goal - BSG has been well controlled on AM labs throughout this admission #Tobacco abuse - 1 pack/day - Nicotine patch ordered while inpatient - Encourage tobacco cessation #Chronic hyponatremia | SIADH- Sodium at baseline #Dysphagia - tolerating diet, monitor closely #Hypokalemia - Mild, 3.3 on admission. Repleted and augmented appropriately. Has remained WNL since #COPD Chronic. Reports he has daily wheezing but this has not changed recently. Continue Trelegy/formulary equivalent #GERD Continue PPI DVT prophylaxis: Lovenox Disposition: Discharged to [place] [facility] on 06/13 Notes For Next Care Provider Medication Changes From Visit Oxycodone 5-10 mg every 4 hours as needed for moderatesevere pain Bowel regimen with MiraLAX daily, Senokot-S daily, milk of mag suspension as needed, Dulcolax suppository as needed Admission HPI Per Admitting Provider Patel is a 69-year-old male with a past medical history of alcohol abuse at risk of withdrawal, pancreatitis, type II DM, coronary artery disease, CVD, peptic ulcer disease who was discharged 06/02/2025 after an admission for moderate pancreatitis due to alcohol use and he was monitored for alcohol withdrawal with a PAWSS score of 3 and who did not show evidence of withdrawal over his 3-day admission who presents back to the ER for 06/04 as a trauma alert. He was going to get beer while watching difficult a.m. yesterday afternoon and does not remember what happened but members his helping him up. He was having pain in his right hip and right thigh and presented to the ER for further evaluation. His fall was at this point around 24 hours ago and fortunately CThead does not show any evidence of intracranial bleed. He did sustain a periprosthetic fracture. He is not on anticoagulation. Shaji reports that he fell. He was drinking 3 beers yesterday and was 2:30pm and f diana. Remembers going down and did not hit his head. He immediately had pain in his R hip. Tried to stand but couldnt. Eventually fell asleep on the floor. Reports he did not pass out. 2 friends came and help lift him into the bed. He was unable to put any weight whatsoever on his R leg. Intermittently awake and asleep all night. Refused to go to the hospital initially, but pain didn't get better and couldn't bear weight so came to the hospital for evaluation. He reports he is not sure exactly why he fell, denies losing consciousness and did not have a seizure or syncopized just notes that it happened very fast and that he suddenly fell to the floor and then could not bear weight or stand so he fell asleep on the floor. He does not lose consciousness and has a result of his fall Reports his belly pain improved after hospitalization, was having some but not as much. NO pain at bedside. Denies pain with alcohol or meals. 'I just drank three beers.' History of seizures, last 1 year ago. Follows with [facility] Neuro. On Keppra. Started Keppra 2-3 years. 1 year ago increased dose and has done well since then. 1000mg HS, 500mg AM. He did take all morning meds before coming to the hospital Reports hx He has a neck stent He reports he has chest pain when going up stairs or with exertion. Has angina 'all the time' and most days. Rarely has angina at rest, but gets easy heaviness in his chest and chest pain when ambulating. Was started on ranolazine for this. Has not noticed any change with this. He denies any chest pain this morning or at time of admission. Per family Follows with Dr. Giraldo intervential cardiology at [facility]. Per last visit had an aortic dissection attempting a cath. Was told this should never be attempted for him again, and avoid surgery unless life threatening. Sodium i snormally ~127-129 for him at home. ON COPD tx with trelegy. Wheezing seems a little worse than normal today. No increased sputum production. No change in sputum color. Endorses slight dyspnea at his normal baseline, no increase. [facility] record review: Neurology note 05/02/2024. History of stroke, seizure, and migraines. Seizure disorder with nocturnal seizures, Keppra increased at that time 100 mg at bedtime/500 mg a.m. Accelerated hypertension with increased word-finding difficulty noted at that time. Cardiology note review 12/30/2024 with SUNNY Dinh: Noted to have CAD [place] artery [place] heart with stable angina at that time. Complex coronary disease not amenable to PCI. Recommended to continue amlodipine/metoprolol/Plavix/Imdur/aspirin. Started on Ranexa. Recommended to continue every 6 month follow-up. At time of the cardiology note had continued to endorse chest pain daily with both rest and exertion, generally last throughout the day varying in intensity and eventually resolving and sometimes associated with shortness of breath. Ranexa added as noted and continued on medical management as he was not a cath candidate. Also of note he was statin intolerant, and also intolerant of fenofibrate. He was noncompliant with [facility], last note Terry Resendez 04/19/2025: COPD treated then up with prednisone and Trelegy prescribed. Type II DM A1c at goal. Chronic hyponatremia noted to likely contribute to dizziness and malaise. Notes above added to chart for obstruction Medical History: Reviewed Medications: Reviewed Surgical History: Reviewed Family history: Reviewed Allergies: Reviewed Social History: Menthol cigarettes 1ppd. ETOH use normally ~8-10 beers per day. 3 beers yesterday. Last drink yesterday ~2pm. DNR/DNI Discharge Exam General: No acute distress, nondiaphoretic, well-developed, well-nourished. Skin: Warm, dry. No rashes or peripheral edema noted. Cardiac: Regular rate and rhythm. Systolic murmur noted. Pulm: Clear to auscultation bilaterally without wheezes, rales or rhonchi. Normal respiratory effort. 96% on 2 L NC. Abdominal: Soft, nontender, nondistended. Bowel sounds present. MSK: Expected postoperative tenderness to palpation over anterolateral right hip. Dressing to right hip clean dry and intact. Normal motor and sensory function in lower extremities bilaterally. Neuro: A&O x3. No focal neurological deficits. Discharge Plan Discharge Items Patient Disposition: Transfer Nursing Home Fac Reason For Visit: FALL, HIP FXR Discharge Diagnosis: Right Periprosthetic femur fracture Condition on Discharge: Fair Activity: Per Instructions section Activity Comment: Partial weightbearing right leg for 6 weeks Weightbearing: Right partial Weightbearing Comment: Partial Weightbearing right leg for 6 weeks Non-emergency contact: Primary Care Provider and Surgeon Call non-emergency contact if: you have any medication questions, your symptoms worsen, your pain is not controlled, your temperature is above 101.5, your wound has increased redness and your wound has increased drainage Follow-up/Referrals: Patel Benavidez MD [Physician] - (Orthopedic follow-up 2-3 weeks from surgery date) Terry Resendez MD [Primary Care Provider] - (Follow-up in 1-2 weeks) Diet: Heart Healthy Fluids: 1200ml (5 cups) Diet Texture: Easy to Chew Addtl Attending Provider Instructions: Mr. León, You were admitted to the hospital after a fall resulted in a right hip fracture. You had this surgically repaired on 06/[address] Benavidez. He also experienced mildmoderate alcohol withdrawal symptoms earlier in your hospitalization, however your alcohol withdrawal has now resolved. Though your constipation is still ongoing, your bowel regimen can be continued at the senior living facility. You are medically stable for discharge to rehab at this time. Upon discharge from the hospital: * For pain control: Take Tylenol as needed as your first-line pain medication, take oxycodone 5-10 mg every 4 hours as needed for moderatesevere pain. Do not drive or operate heavy machinery while taking oxycodone as it is a narcotic pain medication. * For constipation: Continue MiraLAX daily, Senokot-S daily. You can take milk of mag suspension twice daily as needed. You can use a Dulcolax suppository once daily as needed. * You can continue using the nicotine patch daily. I highly encourage both tobacco and alcohol cessation. * Follow the additional instructions from your orthopedic team listed below. * Follow-up with your orthopedic team as scheduled. * Follow-up with your PCP in 1-2 weeks. Please return to the hospital if you experience any of the following: Severe pain uncontrolled by medications, inability to tolerate oral intake, chest pain, difficulty breathing, passing out, confusion, or any other symptoms concerning for you. It was a pleasure taking care of you while you were in the hospital! Addtl Computer Engineering Professor Provider Instructions: General Orthopedic Discharge Instructions Activity: Partial weight-bearing right leg Diet: You may resume previous diet. Medications: 1. Narcotic You will likely be sent home from the hospital with a prescription for the narcotic pain medication. Take it as needed. Side effects most commonly include nausea and constipation 2. Resume previous home medications unless otherwise instructed Dressing Care: If there is a soft dressing in place then leave the dressing intact for 5 days. On the you may remove the dressing and leave the stitches open to air or cover them with band-aids. Keep the incision clean and dry If there is a hard splint then leave it in place until your follow-up visit in 2 weeks Showering: If you have a soft dressing you may shower right after the surgery but do not get the dressing wet. After the dressing is removed on the 5th day then you can get the stitches wet in the shower, but do not soak or scrub them. Let the soapy shower water run over the stitches and pat them dry. If you have a hard splint, cover it in a plastic bag and keep it dry. Do not remove it until the follow up appointment. Things To Watch For: 1. Drainage from the incision site that occurs more than one week after your surgery. 2. Increased redness at the incision site. 3. Fever above 102 degrees Fahrenheit. 4. Unusual chest pain or shortness of breath. 5. Call [facility] at with any of the above problems. Follow-Up Visit: Please make arrangements to follow-up with Dr. Pramod johnson approximately 2 weeks after your day of surgery for progress check and staple/suture removal. If you have any questions call Pending Studies at Discharge: No Stand-Alone Forms: My [facility] Skilled Items Patient informed of condition?: Yes DNR: Yes Discharge Level of Care: Skilled Communicable Disease: No Discharge Prognosis: Stable Lines: None Urinary Catheter: No Medications and DC Order Prescriptions: New nicotine [Nicoderm CQ] 21 mg/24 hr Patch 24 Hour 1 patch transdermal QAM Qty: 14 0RF oxycodone 5 mg Tablet 5 - 10 mg PO Q4H PRN (Reason: moderate-severe pain) Qty: 20 0RF bisacodyl 10 mg Suppository 10 mg CA DAILY PRN (Reason: constipation) Qty: 5 0RF sennosides-docusate sodium [Senokot-S] 8.6-50 mg Tablet 1 tab PO QAM Qty: 30 0RF magnesium hydroxide [Milk of Magnesia] 400 mg/5 mL Suspension 30 ml PO Q12H PRN (Reason: constipation) Qty: 355 0RF polyethylene glycol 3350 [Miralax] 17 gram Powder In Packet 17 g PO DAILY Qty: 14 0RF Continued clopidogrel 75 mg Tablet 75 mg PO QAM Qty: 0 nitroglycerin 0.4 mg Tablet, Sublingual 0.4 mg Sublingual DIRECTED PRN (Reason: Chest Pain) Qty: 0 Rx Instructions: PLACE ONE TABLET UNDER THE TONGUE EVERY 5 MINUTES FOR UP TO 3 DOSES OVER 15 MINUTES IF NEEDED FOR CHEST PAIN aspirin 81 mg Tablet,Delayed Release (Dr/Ec) 81 mg PO QAM omeprazole 20 mg capsule,delayed release(DR/EC) 20 mg PO Q OTHER DAY finasteride 5 mg tablet 5 mg PO QPM cholecalciferol (vitamin D3) [Vitamin D3] 50 mcg (2,000 unit) Capsule 50 mcg PO QAM Reyvow 50 mg tablet 50 mg PO DIRECTED MDD 1 dose in 24 hours PRN (Reason: Migraine Headache) Rx Instructions: take 1 tablet at onset of migraine metoprolol succinate 25 mg tablet extended release 24 hr 12.5 mg PO HS levetiracetam [Keppra] 500 mg tablet 500 mg PO QAM metoprolol succinate 25 mg tablet extended release 24 hr 25 mg PO QAM levetiracetam 500 mg tablet 1,000 mg PO HS amlodipine 5 mg tablet 5 mg PO UD Rx Instructions: 2.5mg QAM and 5mg QPM isosorbide mononitrate 30 mg Tablet Extended Release 24 Hr 90 mg PO QAM Rx Instructions: take 3 tablets by mouth in the morning thiamine HCl (vitamin B1) 100 mg Tablet 100 mg PO QAM Qty: 30 0RF Trelegy Ellipta 100-62.5-25 mcg blister with device 1 inh INHALATION QAM albuterol sulfate 90 mcg/actuation HFA aerosol inhaler 2 puff INHALATION Q6 PRN (Reason: wheezing or cough) duloxetine 30 mg capsule,delayed release(DR/EC) 30 mg PO AMPM ranolazine 500 mg tablet extended release 12 hr 500 mg PO AMHS albuterol sulfate 2.5 mg /3 mL (0.083 %) Solution For Nebulization 2.5 mg INHALATION Q4H PRN (Reason: as directed) ondansetron HCl 4 mg Tablet 4 mg PO Q6H PRN (Reason: Nausea) acetaminophen 500 mg Tablet 500 mg PO Q4 PRN (Reason: Pain) Discontinued hydrocodone-acetaminophen 5-325 mg tablet 1 tab PO TID PRN (Reason: Pain) Discharge Orders: Discharge Order (Routine); Ordered 06/13/25 Ordered By: Adele Blake Admission Data Admit Date/Time: 06/04/25 16:17 Attending Provider: Tomas Lynn Admit Provider: Johnnie Pop Primary Care Provider: Terry Resendez Other Providers: [place],[facility]; Luis Felipe Rodriguez; Johnnie Pop; Kendall Nielson Other Interventions: Discharge Summary Assessment (RN) Last Done: 06/13/25 14:33 Hospital Stay Data Consultations 06/04/25 13:53 Consult Orthopedic Surgery Stat 06/04/25 13:54 ED Decision to Admit Stat 06/07/25 10:11 Consult Cardiology Routine Procedures Performed Operation Date: 06/09/25 08:50 Actual Procedures p Right Hip Open Reduction Internal Fixation(Right) - Patel Benavidez MD Diagnostic Imagining Performed Abdomen/Pelvis CT 06/04/25 09:57 HISTORY: Fall with abdominal pain. TECHNIQUE: Helical CT imaging of the abdomen and pelvis was performed with contrast. Images are presented in axial, sagittal, and coronal reformats. COMPARISON: None. FINDINGS: Lung Bases/Inferior Mediastinum: Trace left pleural effusion. Mild atelectasis at the lung bases. 0.3 cm nodule in the right middle lobe on series 8 image 1.Coronary artery calcifications are present. Liver: Mild hepatic steatosis. Gallbladder: Unremarkable Spleen: Unremarkable Adrenals: Unremarkable Pancreas: Acute inflammation surrounding the pancreas concerning for acute pancreatitis. No pancreatic ductal dilation. No obvious pancreatic necrosis. Kidneys: Unremarkable Stomach/Bowel: Stomach and duodenum are unremarkable. Small bowel loops are normal in caliber. Normal caliber appendix. Colon is normal in caliber. Lymph nodes: Unremarkable Vasculature: Moderate atherosclerotic vascular disease. No abdominal aortic aneurysm. Pelvis: Streak artifact from bilateral hip arthroplasties limits evaluation of the pelvis. Urinary bladder is unremarkable as visualized. No obvious free pelvic fluid. Soft Tissues: Unremarkable Bones: Bilateral hip arthroplasties. Remote healed fracture deformity the right inferior and superior pubic rami. Periprosthetic fracture involving the subtrochanteric region of the right proximal femur is partially imaged. Partially fused sacroiliac joints. Lumbar facet arthrosis.Chronic L2 burst fracture with kyphoplasty changes. Retropulsion of the posterior wall contributes to moderate central canal stenosis at L1-2. IMPRESSION: * Acute pancreatitis. * Acuteperiprosthetic fracture involving the Sub trochanteric region of the right proximal femurs partially imaged. * 0.3 cm right middle lobe nodule on series 8 image 1. No routine follow-up is necessary per Fleischner Society criteria. If the patient is considered high risk for lung malignancy (i.e. history of smoking or malignancy), then follow-up chest CT can be performed in 12 months. * Numerous additional chronic and/or incidental findings as detailed above. ACT 112: Positive. There are findings on this exam that require communication between the performing entity and the patient following Patient Test Result Information Act ([place] ACT 112) guidelines. Electronically signed by Addi Magdaleno 06-04-2025 11:[address] 06/04/25 09:57 HISTORY: Trauma with neck pain. TECHNIQUE: CT imaging of the cervical spine without IV contrast. Images are presented in axial, sagittal, coronal reformats. COMPARISON: None. FINDINGS: Reversal of cervical curvature.Cervical levoscoliosis. No significant listhesis.Vertebral body heights are preserved without compression deformity.No acute fractures identified. Multilevel degenerative disc disease is most pronounced and severe at C5-6 and C6-7. Posteriorly directed disc osteophyte complex mildly narrowing the central canal at C6-7. Multilevel neural foraminal stenosis is most pronounced and severe on the right at C3-4 and C4-5. No prevertebral edema or hematoma.Severe atherosclerotic plaque at the right carotid bifurcation. Endovascular stent in the right proximal internal carotid artery. Moderate to severe atherosclerotic calcification of the left carotid bifurcation. Included lungs are clear. IMPRESSION: * No acute cervical spine fractures identified. * Reversal of cervical curvature and cervical levoscoliosis. * Severe degenerative changes of the cervical spine with multilevel central canal and neuroforaminal stenosis. * Severe atherosclerotic plaque at the carotid bifurcations. Endovascular stent in the right proximal internal carotid artery. Consider correlation with carotid Doppler ultrasound for degree of carotid artery stenosis. ACT 112: Positive. There are findings on this exam that require communication between the performing entity and the patient following Patient Test Result Information Act ([place] ACT 112) guidelines. Electronically signed by Addi Magdaleno 06-04-2025 11:54 AM Chest X-Ray 06/04/25 09:57 HISTORY: Shortness of breath. TECHNIQUE: Portable AP radiograph of the chest. COMPARISON: Chest radiograph dated 05/30/2025 FINDINGS: bid clerk leads overlie the chest. No focal lung consolidation. No pneumothorax or pleural effusion. Normal heart size. Left-sided aortic arch. Midline trachea. Chronic deformity of the right distal clavicle. Included upper abdomen is unremarkable. Mildly elevated left hemidiaphragm. IMPRESSION: No acute cardiopulmonary findings. Electronically signed by Addi Magdaleno 06-04-2025 11:14 AM Femur X-Ray 06/04/25 09:57 HISTORY: Fall with right hip pain. TECHNIQUE: Right femur, 3 views. COMPARISON: Right femur radiographs dated 06/15/2021. FINDINGS: Right hip arthroplasty. Acute mildly displaced periprosthetic fracture about the proximal femur in the subtrochanteric region. No additional fracture of the mid or distal femur. Atherosclerotic vascular calcification. IMPRESSION: Acute mildly displaced periprosthetic fracture of the proximal femur in the subtrochanteric region. Electronically signed by Addi Magdaleno 06-04-2025 11:[address] 06/04/25 09:57 HISTORY: Fall with head injury. TECHNIQUE: CT of the head without contrast. Images are presented in axial, sagittal, and coronal reformats. COMPARISON: Head CT dated 06/12/2024. FINDINGS: No evidence of acute intracranial hemorrhage or abnormal extra-axial fluid collection. Large area of encephalomalacia involving the left frontal lobe may represent sequela of prior infarct. Ventricular caliber is appropriate. Fourth ventricle is midline. Basal cisterns are patent.Bridges-white differentiation is maintained. Globes and orbits are unremarkable. Soft tissues about the skull base and scalp are unremarkable. Paranasal sinuses and mastoid air cells are clear. No calvarial fracture. IMPRESSION: * No acute intracranial findings. 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 Electronically signed by Addi Magdaleno 06-04-2025 11:41 AM Hip/Pelvis X-Ray 06/04/25 09:57 HISTORY: Fall with right hip pain. TECHNIQUE: Pelvis and right hip radiographs, 3 views. COMPARISON: Pelvis radiograph dated 06/15/2021. FINDINGS: Remote healed fracture deformity of the right superior and inferior pubic rami. No widening of the pubic symphysis or sacroiliac joints. Mildly displaced periprosthetic fracture of the right proximal femur in the subtrochanteric region. The right acetabular component is appropriately positioned and fixated with 2 cortical screws. Left hip arthroplasty without IMPRESSION: * Acute periprosthetic right proximal femur fracture in the subtrochanteric region. * Remote healed fracture deformities involving the right superior and inferior pubic rami. Electronically signed by dAdi Magdaleno 06-04-2025 11:[address] 06/04/25 13:52 HISTORY: Right hip fracture. TECHNIQUE: CT of the right hip without contrast. Images are presented in axial, sagittal, and coronal reformats. COMPARISON: CT of the abdomen pelvis from the same day. FINDINGS: Right hip arthroplasty. Comminuted periprosthetic fractureInvolves the subtrochanteric region of the right proximal femur.The acetabular component appears well-positioned and fixated with 2 cortical screws. Remote healed fracture deformity of the right inferior pubic ramus. Morgan catheter in the urinary bladder. Mild colonic diverticulosis. No intra-abdominal fluid collection or hematoma. Soft tissues of the right hip and proximal thigh are unremarkable. IMPRESSION: * Mildly displaced acute periprosthetic fracture involving the subtrochanteric region of the right proximal femur. Electronically signed by Addi Magdaleno 06-04-2025 2:35 PM Hip X-Ray 06/09/25 08:50 FL hip RT 2-3V CLINICAL HISTORY: RT HIP ORIF COMPARISON STUDY: None FLUOROSCOPY TIME: 67 seconds FLUOROSCOPY IMAGES: 4 EXPOSURE DOSE: 17 mGy FINDINGS: Fluoroscopy was provided for placement of cerclage wires at the proximal right femur. IMPRESSION: Intraoperative fluoroscopy. ACT 112: Negative or not required by law. Electronically signed by: Clay Recinos M.D. 06/09/2025 1:48 PM Pending Results Patient Have Any Pending Studies at Discharge: No Discharge Instructions Given to Patient (Per Discharging Provider) Mr. León, Truong were admitted to the hospital after a fall resulted in a right hip fracture. You had this surgically repaired on 06/[address] Benavidez. He also experienced mildmoderate alcohol withdrawal symptoms earlier in your hospitalization, however your alcohol withdrawal has now resolved. Though your constipation is still ongoing, your bowel regimen can be continued at the senior living facility. You are medically stable for discharge to rehab at this time. Upon discharge from the hospital: * For pain control: Take Tylenol as needed as your first-line pain medication, take oxycodone 5-10 mg every 4 hours as needed for moderatesevere pain. Do not drive or operate heavy machinery while taking oxycodone as it is a narcotic pain medication. * For constipation: Continue MiraLAX daily, Senokot-S daily. You can take milk of mag suspension twice daily as needed. You can use a Dulcolax suppository once daily as needed. * You can continue using the nicotine patch daily. I highly encourage both tobacco and alcohol cessation. * Follow the additional instructions from your orthopedic team listed below. * Follow-up with your orthopedic team as scheduled. * Follow-up with your PCP in 1-2 weeks. Please return to the hospital if you experience any of the following: Severe pain uncontrolled by medications, inability to tolerate oral intake, chest pain, difficulty breathing, passing out, confusion, or any other symptoms concerning for you. It was a pleasure taking care of you while you were in the hospital! Total Time Total Time Spent Total Time Spent (In Minutes): Greater than 30 minutes spent completing this discharge process including direct patient care, medication reconciliation, documentation, review of labs and images, and coordination of care. Coding Level of Care Code 97384 INP/OBS DISCH >30 MIN Diagnoses Closed right hip fracture S72.001A Fall W19.XXXA Type 2 diabetes mellitus with hyperglycemia, without long-term current use of insulin E11.65 Diabetes mellitus ad terminal makeup operator insulin use: without senior living use Alcohol withdrawal delirium F10.931 Seizure disorder G40.909"
== END 2025-06-13 15:08 | DRG 481 ==
LOC: ED 09:43 → 2E 16:17 → SUATTDRO 16:17 → 2E 20:03 → 3E 06-10 16:36